=== PATIENT | male | born 1960 | race Caucasian/White ===

== ENCOUNTER 2022-12-20 19:19 | Emergency (ER) | payer BC, SELFPAY ==
--- OUTSIDE RECORDS SUMMARY | 2022-12-20 20:17 | XMS REPORT | Continuity of Care Document ---
:1960 Author Organization [facility] t Address [address] [place] [address] Care Team Providers Name Role Phone Deyanira Quiroz Primary Care Physician MARVIN ANGELES Attending Clinician Unavailable MARVIN ANGELES Attending Clinician Unavailable FAHAD CHAN Attending Clinician Unavailable FERNANDA MC Attending Clinician Unavailable ANDREI HALL Attending Clinician Unavailable VIJAYA ROMERO Attending Clinician Unavailable YAHAIRA WILSON Attending Clinician Unavailable AMANDA PEREZ Attending Clinician Unavailable KIRK ESPITIA Attending Clinician Unavailable Kirk Espitia MD Attending Clinician SERA NAVARRETE Attending Clinician Unavailable Sera Navarrete MD Attending Clinician ANNA, ANUPAMA S Attending Clinician Unavailable Anna PAC, Anupama S Attending Clinician Katie FRIAS, Yahaira Evans Attending Clinician Arie FRIAS, [facility] Attending Clinician Shefali Westfall MD Attending Clinician SHEFALI WESTFALL Attending Clinician Unavailable Pob, Adc Lab Main Attending Clinician Unavailable Doctor Unassigned, [place] Attending Clinician Unavailable PK OLEA Attending Clinician Unavailable PK LOEA Attending Clinician Unavailable Sarah Mcdermott Attending Clinician SARAH CRAWFORD Attending Clinician Unavailable Deyanira Quiroz Attending Clinician Terry BRIONES, Marj Jade Attending Clinician Unavailable JO ANN SOTO Attending Clinician Unavailable JO ANN SOTO Attending Clinician Unavailable GEOVANI BERRIOS Attending Clinician Unavailable Nurse, [facility] Attending Clinician Unavailable Unknown, Attending Attending Clinician Unavailable Lab, Ang - Db Attending Clinician Unavailable Veronica Herndon MD Attending Clinician SHAD العلي Attending Clinician Unavailable Desiree FRIAS, Jean Ann Attending Clinician Shad العلي MD Attending Clinician Testing, [facility] Pulmonary Function Attending Clinician Unavaila Pk Johnson DO Attending Clinician 2, Adc Lab Attending Clinician Unavailable Leonardo Potts MD Attending Clinician DEYANIRA GARCIA Attending Clinician Unavailable KAE ARTEAGA Attending Clinician Unavailable Kaylee Duffy MD Attending Clinician KAYLEE DUFFY Attending Clinician Unavailable SOPHIE BURTON Attending Clinician Unavailable Sophie Burton DO Attending Clinician Jaycee Nobles LVN Attending Clinician Unavailable DANIEL SCHOFIELD Attending Clinician Unavailable Daniel Schofield MD Attending Clinician DENVER ZHANG Attending Clinician Unavailable Omaghomi MANAGER BUSINESS INFORMATION, Omayemi Attending Clinician Only, Adc Test Attending Clinician Unavailable Adria FRIAS, Godl Attending Clinician Andrew FRIAS, Sahil Attending Clinician Jaimie FRIAS, Fatmata Attending Clinician Ebrahim MANAGER BUSINESS INFORMATION, Rania Attending Clinician Jacqui BRIONES, Val Johnson Attending Clinician Unavailable Rashad FRIAS, Jim Romero Attending Clinician RIANA DIMAS Attending Clinician Unavailable DOREEN HENDRICKSON Attending Clinician Unavailable Son CLAROS, Tessa Attending Clinician TESSA CLINE Attending Clinician Unavailable Shena FRIAS, Jenny Attending Clinician MOI MEIER Attending Clinician Unavailable Provider, [facility] Attending Clinician Unavailable Ashly Lantigua Attending Clinician ASHLY FIGUEROA Attending Clinician Unavailable LAKEISHA NELSON Attending Clinician Unavailable Lakeisha Nelson MD Attending Clinician Pradeep Montanez MD Attending Clinician Mey BRIONES, Amelia Schaefer Attending Clinician JOSELUIS OLIVEROS Attending Clinician Unavailable Domo FRIAS, Joseluis Attending Clinician Donita Mendez RN Attending Clinician Unavailable Only, Ang Db Test Attending Clinician Unavailable IBAUDIE LING Attending Clinician Unavailable Ibikunle MANAGER BUSINESS INFORMATION, Folusho F Attending Clinician Kaveh BRIONES, Melania T Attending Clinician Unavailable AneWarner Boudreaux Attending Clinician WARNER CASTELAN Attending Clinician Unavailable BRYON METCALF Attending Clinician Unavailable Bryon Metcalf DO Attending Clinician SRIDHAR RAYO Attending Clinician Unavailable Caterina Kelsey Attending Clinician Sridhar Rayo MD Attending Clinician CATERINA COHEN Attending Clinician Unavailable ROHAN JACOB Attending Clinician Unavailable Christina HOGAN, Janina Fan Attending Clinician Paul Leigh DO Attending Clinician Alta FRIAS, Santino Attending Clinician Nidia FRIAS, Rohan Attending Clinician Donato FRIAS, Rayo White Attending Clinician Dustin FRIAS, Fahad Thorne Attending Clinician Mohini Galindo Attending Clinician RAAD SIEGEL Attending Clinician Unavailable Robbin FRAIS, Raad Attending Clinician ANDREW HERRERA Attending Clinician Unavailable Lakeisha Nelson Attending Clinician Unavailable Sharon FRIAS, Andrew Attending Clinician Jessica Roach PA-C Attending Clinician JESSICA ROACH Attending Clinician Unavailable Howie HENDRICKS MD, John G Attending Clinician RASHAD ACUNA III Attending Clinician Unavailable Brent Meier DO Attending Clinician Dorota FRIAS, Rosalba Attending Clinician David Naik Attending Clinician DAVID LEMON Attending Clinician Unavailable Josue Shaikh MD Attending Clinician Marisel Welch DO Attending Clinician MARISEL WELCH Attending Clinician Unavailable LEONARDO POTTS Attending Clinician Unavailable Lab, Adc Fam Pob I Attending Clinician Unavailable Yousuf Valencia RN Attending Clinician Unavailable ABE MARTIN Attending Clinician Unavailable Judith Hernandez RN Attending Clinician Unavailable Lennie Oliver Attending Clinician SCOOTER MCDONALD Attending Clinician Unavailable Scooter Mcdonald MD Attending Clinician Dennis Medina RN Attending Clinician Unavailable RAGHAVENDRA URBINA Attending Clinician Unavailable PRADEEP MONTANEZ Attending Clinician Unavailable Provider, [facility] Attending Clinician Unavailable Jason CLAROS, Anni Yang Attending Clinician RASHAD TINEO Attending Clinician Unavailable Yves East CRNA Attending Clinician Almaz Mclain MD, Leonard Attending Clinician Doreen Hendrickson MD Attending Clinician Mk Qureshi MD Attending Clinician Naresh FRIAS, Nakul Attending Clinician [phone] NATANAEL TOLENTINO Attending Clinician Unavailable Natanael Tolentino MD Attending Clinician Nurse, Chinedu Pritchett Immunization Attending Clinician Unavailable Alexandro FRIAS, Fernanda Reza Attending Clinician Ward FRIAS, Ihsan Henderson Attending Clinician [phone] Diane Lepe RN Attending Clinician Unavailable GODWIN CANALES Attending Clinician Unavailable Godwin Canales DO Attending Clinician Radiology Attending Clinician Unavailable RADIOLOGY Attending Clinician Unavailable Quinten Clements Attending Clinician FATMATA ADAMS Attending Clinician Unavailable Shari Wiggins MD Attending Clinician [phone] Yeny Jacobs Attending Clinician Norm Blood MD Attending Clinician Outpt-Luana, Pacemaker/Icd Attending Clinician Unavailable Luis Fernando Muro MD Attending Clinician Renetta Maradiaga LVN Attending Clinician Unavailable Jesusita Mcleod MD Attending Clinician [phone] Luana, Remote Device Check At Home - Attending Clinician Unalacie COOKP, Dodie Rasheed Attending Clinician Nurse, [facility] Attending Clinician Unavailable QUINTEN AKERS Attending Clinician Unavailable Karen Dorman RN Attending Clinician Unavailable BRENNAN GAINES Attending Clinician Unavailable [facility] Attending Clinician Unavailable Fellow, Pulmonary Attending Clinician Unavailable Genesis Rose RN Attending Clinician Unavailable Bibiana Gregory MD Attending Clinician Raghavendra Urbina MD Attending Clinician BIBIANA GREGORY Attending Clinician Unavailable BIBIANA GREGORY Attending Clinician Unavailable Moi Meier MD Attending Clinician [phone] Carrie Gibbs RN Attending Clinician Unavailable Andrei Hall MD Attending Clinician Nurse, [facility] General Surgery Attending Clinician Unavailable UNKNOWN, ATTENDING Attending Clinician Unavailable Outpatient, Pm/Icd Check Attending Clinician Unavailable Po, Acute Care Clinic Attending Clinician Unavailable CHIDI ESTRADA Attending Clinician Unavailable Dat Tarango RN Attending Clinician Unavailable Julio Swanson MD Attending Clinician , [facility] Lab Attending Clinician Unavailable Shefali Garcia MD Attending Clinician [place] Attending Clinician Emilie Cee Attending Clinician ARIE [facility] Admitting Clinician Unavailable FAHAD CHAN Admitting Clinician Unavailable FERNANDA MC Admitting Clinician Unavailable ANDREI HALL Admitting Clinician Unavailable SERA NAVARRETE Admitting Clinician Unavailable ANUPAMA ANNA Admitting Clinician Unavailable SHEFALI WESTFALL Admitting Clinician Unavailable JO ANN SOTO Admitting Clinician Unavailable SHAD العلي Admitting Clinician Unavailable Shad العلي MD Admitting Clinician SOPHIE BURTON Admitting Clinician Unavailable Arie FRIAS [facility] Admitting Clinician KAYLEE DUFFY Admitting Clinician Unavailable LAKEISHA NELSON Admitting Clinician Unavailable JOSELUIS OLIVEROS Admitting Clinician Unavailable Joseluis Oliveros MD Admitting Clinician AUDIE MARTE Admitting Clinician Unavailable SRIDHAR RAYO Admitting Clinician Unavailable Sridhar Rayo MD Admitting Clinician NELY COHENE Admitting Clinician Unavailable ROHAN JACOB Admitting Clinician Unavailable Nidia FRIAS, Rohan Admitting Clinician RAAD SIEGEL Admitting Clinician Unavailable DEYANIRA GARCIA Admitting Clinician Unavailable Dorota FRIAS, Rosalba Admitting Clinician Dustin FRIAS, Fahad Thorne Admitting Clinician Titus FRIAS, Mk Admitting Clinician Alexandro FRIAS, Fernanda Reza Admitting Clinician Isabel FRIAS, Andrei Paiz Admitting Clinician Kiki FRIAS, Julio Admitting Clinician Radha FRIAS, Shefali Tobias Admitting Clinician Payers Payer Name Policy Type Policy Number Effective Date Expiration Date S [employer] MEDICAID SSI PENDING 2022 PENDING 00:00:00 BCBS [facility] [id number] 2020 OF [facility] 00:00:00 [facility] [id number] 2018 PPO 00:00:00 Problems Condition Condition Condition Status Onset Resolution Last Treating Co mments Source Name Details Category Date Date Treatment Clinician Date Status Status Disease Active Univers post post 1-25 [place]y of [place] Medical implantabl implantabl Br anch e loop e loop recorder recorder Presence Presence Disease Active Unive rs of of 1-25 ity of Watchman Watchman 00:00: [place] left left 00 Medical atrial atrial Branch appendage appendage closure closure device device Left Left Disease Active 2021-11 Univers facial facial 1-16 ity of numbness numbness 00:00: [place] 00 Medical Branch Numbness Numbness Disease Active 2021-11 Unive rs 1-16 ity of 00:00: [place] 00 Medical Branch Hyperglyce Hyperglyce Disease Active 2021-11 U nivers bentley bentley 0-31 ity of 00:00: [place] 00 Medical Branch Chest pain Chest pain Disease Active U nivers at rest at rest 9-22 ity of 00:00: Medical Branch Paroxysmal Paroxysmal Disease Active U nivers atrial atrial 8-15 ity of fibrillati fibrillati [place] Hypoglycem Hypoglycem Disease Active U nivers ia ia 6-23 ity of 00:00: [place] [facility] Cerebrovas Cerebrovas Disease Recurre Univers cular cular nce 6-21 ity of accident accident 00:00: [place] (CVA) (CVA) 00 Medical determined determined Br anch by by clinical clinical assessment assessment Cellulitis Cellulitis Disease Active U nivers of right of right 4-03 ity of foot foot 00:00: Medical Branch Coronary Coronary Disease Active Unive rs artery artery 3-27 ity of disease disease 00:00: [place] involving involving 00 Medi [facility] Branch coronary coronary artery of artery of council council heart with heart with angina angina pectoris pectoris Chest Chest Disease Active Univers pain, rule pain, rule 3-26 it y of out acute out acute 00:[place] myocardial myocardial 00 Me dical infarction infarction Br anch Leukocytos Leukocytos Disease Active 2020-11 U nivers is is 1-19 ity of 00:00: Medical Branch 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 Added automatic ally from request for surgery [id number] Neck mass Neck mass Disease Active Uni vers 1-25 ity of 00:00: [place] [facility] Epilepsy Epilepsy Disease Active Unive rs 5-04 ity of 00:00: [place] [facility] Chronic Chronic Disease Active Univers heart heart 3-16 ity of failure failure 00:00: [place] with with 00 Medical preserved preserved Bran ch ejection ejection fraction fraction Left-sided Left-sided Disease Active U nivers weakness weakness 2-02 ity of 00:00: [place] [facility] Atrial Atrial Disease Active Univers fibrillati fibrillati 1-14 it y of on, on, 00:00: [place] unspecifie unspecifie 00 Me dical d type d type Branch Left hand Left hand Disease Active Uni vers weakness weakness 4-13 ity of 00:00: [place] [facility] Other Other Disease Active Univers hyperlipid hyperlipid 2-05 it y of emia emia 00:00: Medical Branch Chest pain Chest pain Disease Active U nivers 2-04 ity of 00:00: [place] [facility] Stroke Stroke Disease Active Univers 1-11 ity of 00:00: [place] 00 Medical Branch Obesity Obesity Disease Active Univers (BMI (BMI 1-09 ity of 30-39.9) 30-39.9) 00:00: [place] [facility] CVA CVA Disease Active Univers (cerebral (cerebral 1-09 ity of vascular vascular 00:00: [place] accident) accident) 00 [facility] johnathon Branch TIA TIA Disease Active Univers (transient (transient 1-07 it y of ischemic ischemic 00:00: [place] attack) attack) 00 Medical Branch Screening Screening Disease Active Overview: Univers for for 8-13 Formattin ity of colorectal colorectal 00:00: g of this [place] cancer cancer 00 note Medical might be Branch different from the original. 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 [facility] LEG PAIN LEG PAIN Diagnosis Active 2015-10-01 Memoria Active 05-21 08:57:00 l 05/21/2015 00:00: Audi fong [address] Hypertensi Hypertens Problem Active 2015-08-24 Memoria ve sanchez 04-11 11:46:58 l disorder, disorder, 00:00: Herm james systemic systemic 00 arterial arterial (disorder) (disorder) Active 04/11/2015 Problem 08/24/2015 Data migrated from [employer] on 05/30/15.
Data migrated from [employer] on 05/30/15.
Data migrated from [employer] on 04/24/15. [facility] Hypothyroi Hypothyro Problem Active 2015-08-24 Memoria dism idism 04-11 11:46:58 l (disorder) (disorder) 00:00: He rmann Active 00 04/11/2015 Problem 08/24/2015 Data migrated from [employer] on 05/30/15.
Data migrated from [employer] on 05/30/15.
Data migrated from [employer] on 04/24/15. [facility] Final: Final: Problem 2015-08-24 Luis stewart Chronic Chronic 11:46:58 l Airway Airway Ceiba Obstructio Obstructio n, Not n, Not Elsewhere Elsewhere Classified Classified 5 [facility] Decreased Decreased Problem Resolve 2015-08-24 Memoria testostero testostero d 11:46:58 l ne level ne level Audi fong (finding) (finding) Resolved Problem 08/24/2015 [facility] [id number] Diagnosis Active 2015-08-21 Mem oria Active 13:25:00 l [facility] [place]iba Pacemaker Pacemaker Disease Resolve 2021-02-12 2021-02-12 Univers d 00:00:00 14:40:32 ity of [place] [facility] Chest pain Chest Problem Resolve 2015-08-24 2015-08-24 Memoria (finding) pain d 05-23 11:46:58 11:46:58 l (finding) 00:00: [place] Resolved 00 05/23/2015 Problem 08/24/2015 Data migrated from [employer] on 05/30/15. [facility] Standard Standard Problem Resolve 2015-08-24 2015-08-24 Memoria chest chest d 05-23 11:46:58 11:46:58 l X-ray X-ray 00:00: [place] abnormal abnormal 00 (finding) (finding) Resolved 05/23/2015 Problem 08/24/2015 Data migrated from [employer] on 05/30/15. [facility] History of Past Illness Condition Condition Condition Status Onset Resolution Last Treating Co mments Source Name Details Category Date Date Treatment Clinician Date Discharge Discharge Problem 2015-05-24 2015-05-24 Memoria Diagnosis: Diagnosis: 05-21 03:24:43 03:24:43 l Leg pain Leg pain 05:00: Audi n 05/21/2015 00 05/24/2015 [facility] Discharge Discharge Problem 2015-05-24 2015-05-24 Memoria Diagnosis: Diagnosis: 05-21 03:24:43 03:24:43 l Chest pain Chest pain 05:00: He ernesto 05/21/2015 00 05/24/2015 [facility] Allergies, Adverse Reactions, Alerts Allergy Allergy Status Severity Reaction(s) Onset Inactive Treating Comm ents Source Name Type Date Date Clinician morphine DA Active U UNKNOWN 2020-11 [facility] 12-21 Clear 00:00: Light 00 [facility] MORPHINE DRUG Active SOB Univers INGREDI 6-13 ity of 00:00: [place] 00 Medical Branch Morphine Propensi Active Shortness of Given Univers ty to Breath 6-13 epi/benad ity of adverse 00:00: ryl in ER [place] reaction 00 after Medical s receiving Branch IV morphine April 2021. Social History Social Habit Start Date Stop Date Quantity Comments Source History of tobacco Passive smoker Un iversity of use [place] [facility] History SDOH University o f Alcohol Frequency [place] M edical Branch History SDNH University o f Alcohol Std Drinks [place] [facility] History SDNH University o f Alcohol Binge [place] [facility] Exposure to 2022-12-07 2022-12-17 Not sure University of SARS-CoV-2 (event) 00:00:00 06:48:00 [facility] Alcohol intake 2022-12-17 2022-12-17 Current University of 00:00:00 00:00:00 non-drinker of [facility] [place] alcohol Branch (finding) History SDOH 2022-10-08 2022-10-08 4 University o f Financial 00:00:00 00:00:00 [place] [facility] History SDOH Food 2022-10-08 2022-10-08 1 Univers ity of Worry 00:00:00 00:00:00 [place] [facility] History SDOH Food 2022-10-08 2022-10-08 1 Univers ity of Scarcity 00:00:00 00:00:00 [place] [facility] History SDOH 2022-10-08 2022-10-08 2 University o f Transport Med 00:00:00 00:00:00 [place] [facility] History SDOH 2022-10-08 2022-10-08 2 University o f Transport Non-Med 00:00:00 00:00:00 [facility] Branch Cigarettes smoked 2022-10-08 2022-10-08 Univers ity of current (pack per 00:00:00 00:00:00 [facility] ) - Reported Branch Cigarette 2022-10-08 2022-10-08 University of pack-years 00:00:00 00:00:00 [facility] Tobacco use and 2022-10-08 2022-10-08 Smokeless Universit y of exposure 00:00:00 00:00:00 tobacco non-user [facility] dical Branch Tobacco Comment 2022-06-12 2022-06-12 Quit 2015 Universit y of 00:00:00 00:00:00 /smoked for [facility] about 18 yrs Branch Alcohol Comment 2021-08-19 2021-08-19 quit 30 yearsa Unive rsity of 00:00:00 00:00:00 ago [facility] Branch Education 2021-05-05 2021-05-05 11 University of 00:00:00 00:00:00 [facility] Sex [birth year] At [birth year] Universit y of 00:00:00 00:00:00 [facility] Smoking Status Start Date Stop Date Source Ex-smoker 2022-10-08 00:00:00 2022-10-08 00:00:00 [facility] Social History [facility] Medications Ordered Filled Start Stop Current Ordering Indication Dosage Frequency Signature Comments Components Source Medication Medication Date Date Medication? Clinician (SIG) Name Name cetirizine Yes [id number] 10mg Take 1 U nivers (ALLERGY 1-26 tablet by ity of RELIEF, 00:00: mouth in [place] CETIRIZINE, the [facility] ) 10 mg morning. Branch tablet KCL 20 mEq Yes [id number] 20meq Take 1 Univers tablet 1-26 tablet by ity of 00:00: mouth in [place] the Medical morning. Branch levothyroxi Yes [id number] 150ug Take 1 Univers ne 150 mcg 1-26 tablet by ity of tablet 00:00: mouth [place] every Medical morning. Branch furosemide Yes [id number] 40mg Take 2 Univers 20 mg 1-26 tablets by ity of tablet 00:00: mouth in [place] the Medical morning. Branch metoprolol Yes [id number] 25mg Take 0.5 Univers succinate 1-26 tablets by ity of XL 50 mg 24 00:00: [place] tablet 00 the Medical morning. Branch cetirizine Yes [id number] 10mg Take 1 U nivers (ALLERGY 1-26 tablet by ity of RELIEF, 00:00: mouth in [place] CETIRIZINE, the [facility] ) 10 mg morning. Branch tablet KCL 20 mEq Yes [id number] 20meq Take 1 Univers tablet 1-26 tablet by ity of 00:00: mouth in [place] the Medical morning. Branch levothyroxi Yes [id number] 150ug Take 1 Univers ne 150 mcg 1-26 tablet by ity of tablet 00:00: mouth [place] every Medical morning. Branch furosemide 0 Yes [id number] 40mg Take 2 Univers 20 mg 1-26 tablets by ity of tablet 00:00: mouth in [place] the Medical morning. Branch metoprolol Yes [id number] 25mg Take 0.5 Univers succinate 1-26 tablets by ity of XL 50 mg 24 00:[place] 00 the Medical morning. Branch cetirizine 2022-0 Yes [id number] 10mg Take 1 U nivers (ALLERGY 1-26 tablet by ity of RELIEF, 00:00: mouth in [place] CETIRIZINE, the [facility] ) 10 mg morning. Branch tablet KCL 20 mEq 2022-0 Yes [id number] 20meq Take 1 Univers tablet 1-26 tablet by ity of 00:00: mouth in [place] 00 the Medical morning. Branch levothyroxi 2022-0 Yes [id number] 150ug Take 1 Univers ne 150 mcg 1-26 tablet by ity of tablet 00:00: mouth [place] every Medical morning. Branch furosemide 2022-0 Yes [id number] 40mg Take 2 Univers 20 mg 1-26 tablets by ity of tablet 00:00: mouth in [place] the Medical morning. Branch metoprolol 2022-0 Yes [id number] 25mg Take 0.5 Univers succinate 1-26 tablets by ity of XL 50 mg 24 00:[place] 00 the Medical morning. Branch cetirizine 2022-0 Yes [id number] 10mg Take 1 U nivers (ALLERGY 1-26 tablet by ity of RELIEF, 00:00: mouth in [place] CETIRIZITN, the [facility] ) 10 mg morning. Branch tablet KCL 20 mEq 2022-0 Yes [id number] 20meq Take 1 Univers tablet 1-26 tablet by ity of 00:00: mouth in [place] the Medical morning. Branch levothyroxi 2022-0 Yes [id number] 150ug Take 1 Univers ne 150 mcg 1-26 tablet by ity of tablet 00:00: mouth [place] 00 every Medical morning. Branch furosemide 2022-0 Yes [id number] 40mg Take 2 Univers 20 mg 1-26 tablets by ity of tablet 00:00: mouth in [place] 00 the Medical morning. Branch metoprolol 2022-0 Yes [id number] 25mg Take 0.5 Univers succinate 1-26 tablets by ity of XL 50 mg 24 00:[place]: [place] 00 the Medical morning. Branch cetirizine 2022-0 Yes [id number] 10mg Take 1 U nivers (ALLERGY 1-26 tablet by ity of RELIEF, 00:00: mouth in [place] CETIRIZINE, the [facility] ) 10 mg morning. Branch tablet KCL 20 mEq 0 Yes [id number] 20meq Take 1 [facility] tablet 1-26 tablet by ity of 00:00: mouth in [place] 00 the Medical morning. Branch levothyroxi 0 Yes [id number] 150ug Take 1 [facility] ne 150 mcg 1-26 tablet by ity of tablet 00:00: mouth [place] 00 every Medical morning. Branch furosemide 0 Yes [id number] 40mg Take 2 [facility] 20 mg 1-26 tablets by ity of tablet 00:00: mouth in [place] 00 the Medical morning. Branch metoprolol 0 Yes [id number] 25mg Take 0.5 [facility] succinate 1-26 tablets by ity of XL 50 mg 24 00:00: mouth in [place] hr tablet 00 the Medical morning. Branch cetirizine Yes [id number] 10mg Take 1 U nivers (ALLERGY 1-26 tablet by ity of RELIEF, 00:00: mouth in [place] CETIRIZINE, the [facility] ) 10 mg morning. Branch tablet KCL 20 mEq Yes [id number] 20meq Take 1 [facility] tablet 1-26 tablet by ity of 00:00: mouth in [place] the Medical morning. Branch levothyroxi 0 Yes [id number] 150ug Take 1 [facility] ne 150 mcg 1-26 tablet by ity of tablet 00:00: mouth [place] 00 every Medical morning. Branch furosemide 0 Yes [id number] 40mg Take 2 [facility] 20 mg 1-26 tablets by ity of tablet 00:00: mouth in [place] the Medical morning. Branch metoprolol 0 Yes [id number] 25mg Take 0.5 [facility] succinate 1-26 tablets by ity of XL 50 mg 24 00:00: mouth in [place] hr tablet 00 the Medical morning. Branch traMADoL 2022-0 2022- No 50mg 50 mg, Univer s (ULTRAM) -12-16 Oral, ity of tablet 50 04:30: 04:10 ONCE, 1 [place] mg 00 :00 dose, On Medical Mon Branch 12/15/22 at 2230, Routine traMADoL 2022-0 Yes [id number] 50mg Take 1 [facility] (ULTRAM) 50 1-23 tablet by ity of mg tablet 00:00: mouth [place] 00 every 6 Medical (six) Branch hours as needed for Pain (scale 7-10). Indication s: acute pain traMADoL 2022-0 Yes [id number] 50mg Take 1 [facility] (ULTRAM) 50 1-23 tablet by ity of mg tablet 00:00: mouth [place] 00 every 6 Medical (six) Branch hours as needed for Pain (scale 7-10). Indication s: acute pain traMADoL 2022-0 Yes [id number] 50mg Take 1 [facility] (ULTRAM) 50 1-23 tablet by ity of mg tablet 00:00: mouth [place] 00 every 6 Medical (six) Branch hours as needed for Pain (scale 7-10). Indication s: acute pain methylpredn 2022-0 2022- No 50mg 50 mg, Uni vers isolone sod 12-04 Intravenou i ty of succ 04:45: 04:54 s, ONCE, 1 [place] (SOLU-MEDRO 00 :00 dose, On Medi johnathon L) Thu [place] injection 12/03/22 at 50 mg 2245, DELFIN iopamidol 0 2022- No [id number] 100mL 100 mL, Univers (ISOVUE 12-04 Intravenou ity o f 370-500 mL) 04:15: 04:15 s, ONCE, 1 [place] injection 00 :00 dose, On Medica l 100 mL [facility] Branch 12/03/22 at 2215, Routine predniSONE 2022-0 Yes [id number] 50mg Take 1 [facility] 50 mg 1-11 tablet by ity of tablet 00:00: mouth in [place] 00 the Medical morning. Branch predniSONE 2022-0 Yes [id number] 50mg Take 1 [facility] 50 mg 1-11 tablet by ity of tablet 00:00: mouth in [place] 00 the Medical morning. Branch predniSONE 2022-0 Yes [id number] 50mg Take 1 [facility] 50 mg 1-11 tablet by ity of tablet 00:00: mouth in [place] 00 the Medical morning. Branch predniSONE 2022-0 Yes [id number] 50mg Take 1 [facility] 50 mg 1-11 tablet by ity of tablet 00:00: mouth in [place] 00 the Medical morning. Branch predniSONE 2022-0 Yes [id number] 50mg Take 1 [facility] 50 mg 1-11 tablet by ity of tablet 00:00: mouth in [place] 00 the Medical morning. Branch predniSONE 0 Yes [id number] 50mg Take 1 [facility] 50 mg 1-11 tablet by ity of tablet 00:00: mouth in [place] 00 the Medical morning. Branch predniSONE 0 Yes [id number] 50mg Take 1 [facility] 50 mg 1-11 tablet by ity of tablet 00:00: mouth in [place] 00 the Medical morning. Branch predniSONE 2022-2022- No 40mg 40 mg, [facility] ers (DELTASONE) 11-27 Oral, ity of tablet 40 03:45: 03:04 ONCE, [place] mg 00 :[place] dose, On Medical 11/26/22 Branch at 2145, DELFIN ipratropium 2022- No 3mL 3 mL, [facility] ers -albuteroL 11-27 Inhalation it y of (DUONEB) 01:00: 00:08 , ONCE, 1 [place] 0.5 mg-3 00 :00 dose, On Medical mg(2.5 mg Thu11/26/22 Bran ch base)/3 mL at 1900, nebulizer Routine solution 3 mL methylpredn 2022- No 125mg 125 mg, U nivers isolone sod 11-27 Intravenou i ty of succ 00:00: 00:07 s, ONCE, 1 [place] (SOLU-MEDRO 00 :00 dose, On Medi johnathon L) Thu11/26/22 Branch injection at 1800, 125 mg DELFIN predniSONE 2022- Yes [id number] 40mg Take 2 [facility] 20 mg 11-26- tablets by ity of tablet 00:00: 05:59 mouth [place] 00 :00 every Medical morning Branch for 4 days. predniSONE 2022-0 2022- Yes [id number] 40mg Take 2 [facility] 20 mg 11-26-09 tablets by ity of tablet 00:00: 05:59 mouth [place] 00 :00 every Medical morning Branch for 4 days. furosemide 2022-0 Yes [id number] 40mg Take 2 [facility] 20 mg 1-02 tablets by ity of tablet 00:00: mouth in [place] 00 the Medical morning. Branch furosemide 2022-0 Yes [id number] 40mg Take 2 [facility] 20 mg 1-02 tablets by ity of tablet 00:00: mouth in [place] 00 the Medical morning. Branch furosemide Yes [id number] 40mg Take 2 [facility] 20 mg 1-02 tablets by ity of tablet 00:00: mouth in [place] 00 the Medical morning. Branch furosemide Yes [id number] 40mg Take 2 [facility] 20 mg 1-02 tablets by ity of tablet 00:00: mouth in [place] 00 the Medical morning. Branch furosemide 0 2022- No [id number] 40mg Take 2 [facility] 20 mg -02 -12 tablets by ity of tablet 00:00: 00:00 mouth in [place] 00 :00 the Medical morning. Branch furosemide 2022- No [id number] 40mg Take 2 [facility] 20 mg -02 -12 tablets by ity of tablet 00:00: 00:00 mouth in [place] 00 :00 the Medical morning. Branch cetirizine 2021-11 Yes [id number] 10mg Take 1 U nivers (ALLERGY 2-29 tablet by ity of RELIEF, 00:00: mouth in [place] CETIRIZINE, the Medical ) 10 mg morning. Branch tablet albuterol 2021-11 Yes [id number] 2{puff} Inhale 2 [facility] 90 2-29 Puffs ity of mcg/actuati 00:00: every 6 [place] on inhaler 00 (six) Medical hours as Branch needed for Wheezing, Shortness of Breath, Bronchospa sm or Chest tightness. KCL 20 mEq 2021-11 Yes [id number] 20meq Take 1 [facility] tablet 2-29 tablet by ity of 00:00: mouth in [place] the Medical morning. Branch levothyroxi 2021-11 Yes [id number] 150ug Take 1 [facility] ne 150 mcg 2-29 tablet by ity of tablet 00:00: mouth [place] 00 every Medical morning. Branch metoprolol 2021-11 Yes [id number] 25mg Take 0.5 [facility] succinate 2-29 tablets by ity of XL 50 mg 24 00:00: mouth [place] hr tablet 00 the Medical morning. Branch cetirizine 2021-11 Yes [id number] 10mg Take 1 U nivers (ALLERGY 2-29 tablet by ity of RELIEF, 00:00: mouth in [place] CETIRIZINE, the Medical ) 10 mg morning. Branch tablet albuterol 2021-11 Yes [id number] 2{puff} Inhale 2 [facility] 90 2-29 Puffs ity of mcg/actuati 00:00: every 6 [place] on inhaler 00 (six) Medical hours as Branch needed for Wheezing, Shortness of Breath, Bronchospa sm or Chest tightness. KCL 20 mEq 2021-11 Yes [id number] 20meq Take 1 [facility] tablet 2-29 tablet by ity of 00:00: mouth in [place] 00 the Medical morning. Branch levothyroxi 2021-11 Yes [id number] 150ug Take 1 [facility] ne 150 mcg 2-29 tablet by ity of tablet 00:00: mouth [place] 00 every Medical morning. Branch metoprolol 2021-11 Yes [id number] 25mg Take 0.5 [facility] succinate 2-29 tablets by ity of XL 50 mg 24 00:00: mouth in [place] hr tablet 00 the Medical morning. Branch cetirizine 2021-11 Yes [id number] 10mg Take 1 U nivers (ALLERGY 2-29 tablet by ity of RELIEF, 00:00: mouth in [place] CETIRIZINE, the Medical ) 10 mg morning. Branch tablet albuterol 2021-11 Yes [id number] 2{puff} Inhale 2 [facility] 90 2-29 Puffs ity of mcg/actuati 00:00: every 6 [place] on inhaler 00 (six) Medical hours as Branch needed for Wheezing, Shortness of Breath, Bronchospa sm or Chest tightness. KCL 20 mEq 2021-11 Yes [id number] 20meq Take 1 [facility] tablet 2-29 tablet by ity of 00:00: mouth in [place] 00 the Medical morning. Branch levothyroxi 2021-11 Yes [id number] 150ug Take 1 [facility] ne 150 mcg 2-29 tablet by ity of tablet 00:00: mouth [place] 00 every Medical morning. Branch metoprolol 2021-11 Yes [id number] 25mg Take 0.5 [facility] succinate 2-29 tablets by ity of XL 50 mg 24 00:00: mouth in [place] hr tablet 00 the Medical morning. Branch cetirizine 2021-11 Yes [id number] 10mg Take 1 U nivers (ALLERGY 2-29 tablet by ity of RELIEF, 00:00: mouth in [place] CETIRIZINE, 00 the Medical ) 10 mg morning. Branch tablet albuterol 2021-11 Yes [id number] 2{puff} Inhale 2 [facility] 90 2-29 Puffs ity of mcg/actuati 00:00: every 6 [place] on inhaler 00 (six) Medical hours as Branch needed for Wheezing, Shortness of Breath, Bronchospa sm or Chest tightness. KCL 20 mEq 2021-11 Yes [id number] 20meq Take 1 [facility] tablet 2-29 tablet by ity of 00:00: mouth in [place] 00 the Medical morning. Branch levothyroxi 2021-11 Yes [id number] 150ug Take 1 [facility] ne 150 mcg 2-29 tablet by ity of tablet 00:00: mouth [place] 00 every Medical morning. Branch metoprolol 2021-11 Yes [id number] 25mg Take 0.5 [facility] succinate 2-29 tablets by ity of XL 50 mg 24 00:00: mouth in [place] hr tablet 00 the Medical morning. Branch cetirizine 2021-11 Yes [id number] 10mg Take 1 U nivers (ALLERGY 2-29 tablet by ity of RELIEF, 00:00: mouth in [place] CETIRIZINE, 00 the Medical ) 10 mg morning. Branch tablet albuterol 2021-11 Yes [id number] 2{puff} Inhale 2 [facility] 90 2-29 Puffs ity of mcg/actuati 00:00: every 6 [place] on inhaler 00 (six) Medical hours as Branch needed for Wheezing, Shortness of Breath, Bronchospa sm or Chest tightness. KCL 20 mEq 2021-11 Yes [id number] 20meq Take 1 [facility] tablet 2-29 tablet by ity of 00:00: mouth in [place] 00 the Medical morning. Branch levothyroxi 2021-11 Yes [id number] 150ug Take 1 [facility] ne 150 mcg 2-29 tablet by ity of tablet 00:00: mouth [place] 00 every Medical morning. Branch metoprolol 2021-11 Yes [id number] 25mg Take 0.5 [facility] succinate 2-29 tablets by ity of XL 50 mg 24 00:00: mouth in [place] hr tablet 00 the Medical morning. Branch cetirizine 2021-11 Yes [id number] 10mg Take 1 U nivers (ALLERGY 2-29 tablet by ity of RELIEF, 00:00: mouth in [place] CETIRIZINE, 00 the Medical ) 10 mg morning. Branch tablet albuterol 2021-11 Yes [id number] 2{puff} Inhale 2 [facility] 90 2-29 Puffs ity of mcg/actuati 00:00: every 6 [place] on inhaler 00 (six) Medical hours as Branch needed for Wheezing, Shortness of Breath, Bronchospa sm or Chest tightness. KCL 20 mEq 2021-11 Yes [id number] 20meq Take 1 [facility] tablet 2-29 tablet by ity of 00:00: mouth in [place] 00 the Medical morning. Branch levothyroxi 2021-11 Yes [id number] 150ug Take 1 [facility] ne 150 mcg 2-29 tablet by ity of tablet 00:00: mouth [place] every Medical morning. Branch metoprolol 2021-11 Yes [id number] 25mg Take 0.5 [facility] succinate 2-29 tablets by ity of XL 50 mg 24 00:00: mouth in [place] hr tablet 00 the Medical morning. Branch cetirizine 2021-11 Yes [id number] 10mg Take 1 U nivers (ALLERGY 2-29 tablet by ity of RELIEF, 00:00: mouth in [place] CETIRIZINE, 00 the Medical ) 10 mg morning. Branch tablet albuterol 2021-11 Yes [id number] 2{puff} Inhale 2 [facility] 90 2-29 Puffs ity of mcg/actuati 00:00: every 6 [place] on inhaler 00 (six) Medical hours as Branch needed for Wheezing, Shortness of Breath, Bronchospa sm or Chest tightness. KCL 20 mEq 2021-11 Yes [id number] 20meq Take 1 [facility] tablet 2-29 tablet by ity of 00:00: mouth in [place] 00 the Medical morning. Branch levothyroxi 2021-11 Yes [id number] 150ug Take 1 [facility] ne 150 mcg 2-29 tablet by ity of tablet 00:00: mouth [place] 00 every Medical morning. Branch metoprolol 2021-11 Yes [id number] 25mg Take 0.5 [facility] succinate 2-29 tablets by ity of XL 50 mg 24 00:00: mouth in [place] hr tablet 00 the Medical morning. Branch albuterol 2021-11 Yes [id number] 2{puff} Inhale 2 [facility] 90 2-29 Puffs ity of mcg/actuati 00:00: every 6 [place] on inhaler 00 (six) Medical hours as Branch needed for Wheezing, Shortness of Breath, Bronchospa sm or Chest tightness. albuterol 2021-11 Yes [id number] 2{puff} Inhale 2 [facility] 90 2-29 Puffs ity of mcg/actuati 00:00: every 6 [place] on inhaler 00 (six) Medical hours as Branch needed for Wheezing, Shortness of Breath, Bronchospa sm or Chest tightness. albuterol 2021-11 Yes [id number] 2{puff} Inhale 2 [facility] 90 2-29 Puffs ity of mcg/actuati 00:00: every 6 [place] on inhaler 00 (six) Medical hours as Branch needed for Wheezing, Shortness of Breath, Bronchospa sm or Chest tightness. albuterol 2021-11 Yes [id number] 2{puff} Inhale 2 [facility] 90 2-29 Puffs ity of mcg/actuati 00:00: every 6 [place] on inhaler 00 (six) Medical hours as Branch needed for Wheezing, Shortness of Breath, Bronchospa sm or Chest tightness. albuterol 2021-11 Yes [id number] 2{puff} Inhale 2 [facility] 90 2-29 Puffs ity of mcg/actuati 00:00: every 6 [place] on inhaler 00 (six) Medical hours as Branch needed for Wheezing, Shortness of Breath, Bronchospa sm or Chest tightness. albuterol 2021-11 Yes [id number] 2{puff} Inhale 2 [facility] 90 2-29 Puffs ity of mcg/actuati 00:00: every 6 [place] on inhaler 00 (six) Medical hours as Branch needed for Wheezing, Shortness of Breath, Bronchospa sm or Chest tightness. cetirizine 2021-11- No [id number] 10mg Take 1 [facility] (ALLERGY 12-04 tablet by ity o f RELIEF, 00:00: 00:00 mouth in [place] CETIRIZINE, 00 :00 the Medical ) 10 mg morning. Branch tablet KCL 20 mEq 2021-11- No [id number] 20meq Take 1 [facility] tablet 12-04 tablet by ity of 00:00: 00:00 mouth in [place] 00 :00 the Medical morning. [place] levothyroxi 2021-11- No [id number] 150ug Take 1 [facility] ne 150 mcg 12-04 tablet by ity of tablet 00:00: 00:00 mouth [place] 00 :00 every Medical morning. Branch metoprolol 2021-11- No [id number] 25mg Take 0.5 [facility] succinate 12-04 tablets by ity of XL 50 mg 24 00:00: 00:00 mouth in [place] hr tablet 00 :00 the Medical morning. [place] cetirizine 2021-11- No [id number] 10mg Take 1 [facility] (ALLERGY 12-04 tablet by ity o f RELIEF, 00:00: 00:00 mouth in [place] CETIRIZINE, 00 :00 the Medical ) 10 mg morning. Branch tablet KCL 20 mEq 2021-11- No [id number] 20meq Take 1 [facility] tablet 12-04 tablet by ity of 00:00: 00:00 mouth in [place] 00 :00 the Medical morning. [place] levothyroxi 2021-11- No [id number] 150ug Take 1 [facility] ne 150 mcg 12-04 tablet by ity of tablet 00:00: 00:00 mouth [place] 00 :00 every Medical morning. Branch metoprolol 2021-11- No [id number] 25mg Take 0.5 [facility] succinate 12-04 tablets by ity of XL 50 mg 24 00:00: 00:00 mouth in [place] hr tablet 00 :00 the Medical morning. Branch semaglutide 2021-11 Yes [id number] .5mg inject 0.5 [facility] (OZEMPIC) 2-23 mg under ity of 0.25 mg or 00:00: the skin [place] 0.5 mg(2 00 weekly. Medical mg/1.5 mL) Branch PnIj empaglifloz 2021-11 Yes [id number] 10mg Take 1 [facility] in 2-23 tablet by ity of (JARDIANCE) 00:00: mouth [place] 10 mg 00 every Medical morning. Branch semaglutide 2021-11 Yes [id number] .5mg inject 0.5 [facility] (OZEMPIC) 2-23 mg under ity of 0.25 mg or 00:00: the skin [place] 0.5 mg(2 00 weekly. Medical mg/1.5 mL) Branch PnIj empaglifloz 2021-11 Yes [id number] 10mg Take 1 [facility] in 2-23 tablet by ity of (JARDIANCE) 00:00: mouth [place] 10 mg 00 every Medical morning. Branch semaglutide 2021-11 Yes [id number] .5mg inject 0.5 [facility] (OZEMPIC) 2-23 mg under ity of 0.25 mg or 00:00: the skin [place] 0.5 mg(2 00 weekly. Medical mg/1.5 mL) Branch PnIj empaglifloz 2021-11 Yes [id number] 10mg Take 1 [facility] in 2-23 tablet by ity of (JARDIANCE) 00:00: mouth [place] 10 mg 00 every Medical morning. Branch semaglutide 2021-11 Yes [id number] .5mg inject 0.5 [facility] (OZEMPIC) 2-23 mg under ity of 0.25 mg or 00:00: the skin [place] 0.5 mg(2 00 weekly. Medical mg/1.5 mL) Branch PnIj empaglifloz 2021-11 Yes [id number] 10mg Take 1 [facility] in 2-23 tablet by ity of (JARDIANCE) 00:00: mouth [place] 10 mg 00 every Medical morning. Branch semaglutide 2021-11 Yes [id number] .5mg inject 0.5 [facility] (OZEMPIC) 2-23 mg under ity of 0.25 mg or 00:00: the skin [place] 0.5 mg(2 00 weekly. Medical mg/1.5 mL) Branch PnIj empaglifloz 2021-11 Yes [id number] 10mg Take 1 [facility] in 2-23 tablet by ity of (JARDIANCE) 00:00: mouth [place] 10 mg 00 every Medical morning. Branch semaglutide 2021- Yes [id number] .5mg inject 0.5 [facility] (OZEMPIC) 2-23 mg under ity of 0.25 mg or 00:00: the skin [place] 0.5 mg(2 00 weekly. Medical mg/1.5 mL) Branch PnIj empaglifloz 2021- Yes [id number] 10mg Take 1 [facility] in 2-23 tablet by ity of (JARDIANCE) 00:00: mouth [place] 10 mg 00 every Medical morning. Branch semaglutide 2021-11 Yes [id number] .5mg inject 0.5 [facility] (OZEMPIC) 2-23 mg under ity of 0.25 mg or 00:00: the [place] 0.5 mg(2 00 weekly. Medical mg/1.5 mL) Branch PnIj empaglifloz 2021-11 Yes [id number] 10mg Take 1 [facility] in 2-23 tablet by ity of (JARDIANCE) 00:00: mouth [place] 10 mg 00 every Medical morning. Branch semaglutide 2021-11 Yes [id number] .5mg inject 0.5 [facility] (OZEMPIC) 2-23 mg under ity of 0.25 mg or 00:00: the skin [place] 0.5 mg(2 00 weekly. Medical mg/1.5 mL) Branch PnIj empaglifloz 2021-11 Yes [id number] 10mg Take 1 [facility] in 2-23 tablet by ity of (JARDIANCE) 00:00: mouth [place] 10 mg 00 every Medical morning. Branch semaglutide 2021-11 Yes [id number] .5mg inject 0.5 [facility] (OZEMPIC) 2-23 mg under ity of 0.25 mg or 00:00: the skin [place] 0.5 mg(2 00 weekly. Medical mg/1.5 mL) Branch PnIj empaglifloz 2021-11 Yes [id number] 10mg Take 1 [facility] in 2-23 tablet by ity of (JARDIANCE) 00:00: mouth [place] 10 mg 00 every Medical morning. Branch semaglutide 2021-11 Yes [id number] .5mg inject 0.5 [facility] (OZEMPIC) 2-23 mg under ity of 0.25 mg or 00:00: the skin [place] 0.5 mg(2 00 weekly. Medical mg/1.5 mL) Branch PnIj empaglifloz 2021-11 Yes [id number] 10mg Take 1 [facility] in 2-23 tablet by ity of (JARDIANCE) 00:00: mouth [place] 10 mg 00 every Medical morning. Branch semaglutide 2021-11 Yes [id number] .5mg inject 0.5 [facility] (OZEMPIC) 2-23 mg under ity of 0.25 mg or 00:00: the skin [place] 0.5 mg(2 00 weekly. Medical mg/1.5 mL) Branch PnIj empaglifloz 2021-11 Yes [id number] 10mg Take 1 [facility] in 2-23 tablet by ity of (JARDIANCE) 00:00: mouth [place] 10 mg 00 every Medical morning. Branch semaglutide 2021-11 Yes [id number] .5mg inject 0.5 [facility] (OZEMPIC) 2-23 mg under ity of 0.25 mg or 00:00: the skin [place] 0.5 mg(2 00 weekly. Medical mg/1.5 mL) Branch PnIj empaglifloz 2021-11 Yes [id number] 10mg Take 1 [facility] in 2-23 tablet by ity of (JARDIANCE) 00:00: mouth [place] 10 mg 00 every Medical morning. Branch semaglutide 2021-11 Yes [id number] .5mg inject 0.5 [facility] (OZEMPIC) 2-23 mg under ity of 0.25 mg or 00:00: the skin [place] 0.5 mg(2 00 weekly. Medical mg/1.5 mL) Branch PnIj empaglifloz 2021-11 Yes [id number] 10mg Take 1 [facility] in 2-23 tablet by ity of (JARDIANCE) 00:00: mouth [place] 10 mg 00 every Medical morning. Branch semaglutide 2021-11 Yes [id number] .5mg inject 0.5 [facility] (OZEMPIC) 2-23 mg under ity of 0.25 mg or 00:00: the skin [place] 0.5 mg(2 00 weekly. Medical mg/1.5 mL) Branch PnIj empaglifloz 2021-11 Yes [id number] 10mg Take 1 [facility] in 2-23 tablet by ity of (JARDIANCE) 00:00: mouth [place] 10 mg 00 every Medical morning. Branch semaglutide 2021-11 Yes [id number] .5mg inject 0.5 [facility] (OZEMPIC) 2-23 mg under ity of 0.25 mg or 00:00: the skin [place] 0.5 mg(2 00 weekly. Medical mg/1.5 mL) Branch PnIj empaglifloz 2021-11 Yes [id number] 10mg Take 1 [facility] in 2-23 tablet by ity of (JARDIANCE) 00:00: mouth [place] 10 mg 00 every Medical morning. Branch semaglutide 2021-11 Yes [id number] .5mg inject 0.5 [facility] (OZEMPIC) 2-23 mg under ity of 0.25 mg or 00:00: the skin [place] 0.5 mg(2 00 weekly. Medical mg/1.5 mL) [place] empaglifloz 2021-11 Yes [id number] 10mg Take 1 [facility] in 2-23 tablet by ity of (JARDIANCE) 00:00: mouth [place] 10 mg 00 every Medical morning. Branch semaglutide 2021-11 Yes [id number] .5mg inject 0.5 [facility] (OZEMPIC) 2-23 mg under ity of 0.25 mg or 00:00: the skin [place] 0.5 mg(2 00 weekly. Medical mg/1.5 mL) [place] empaglifloz 2021-11 Yes [id number] 10mg Take 1 [facility] in 2-23 tablet by ity of (JARDIANCE) 00:00: mouth [place] 10 mg 00 every Medical morning. Branch semaglutide 2021-11 Yes [id number] .5mg inject 0.5 [facility] (OZEMPIC) 2-23 mg under ity of 0.25 mg or 00:00: the skin [place] 0.5 mg(2 00 weekly. Medical mg/1.5 mL) [place] empaglifloz 2021-11 Yes [id number] 10mg Take 1 [facility] in 2-23 tablet by ity of (JARDIANCE) 00:00: mouth [place] 10 mg 00 every Medical morning. Branch semaglutide 2021-11 Yes [id number] .5mg inject 0.5 [facility] (OZEMPIC) 2-23 mg under ity of 0.25 mg or 00:00: the skin [place] 0.5 mg(2 00 weekly. Medical mg/1.5 mL) Branch AnivalIj empaglifloz 2021-11 Yes [id number] 10mg Take 1 [facility] in 2-23 tablet by ity of (JARDIANCE) 00:00: mouth [place] 10 mg 00 every Medical morning. Branch ondansetron 2021-11 No 4mg 4 mg, Slow [facility] (ZOFRAN 2-16 12-16 IV Push, ity of (PF)) 09:00: 09:12 ONCE, 1 [place] injection 4 00 :00 dose, On Medi johnathon mg Fri Branch 11/07/22 at 0300, DELFIN iopamidol 2021-11- No [id number] 100mL 100 mL, Univers (ISOVUE -11-07 Intravenou ity o f 370-500 mL) 08:15: 08:15 s, ONCE, 1 [place] injection 00 :00 dose, On Medica l 100 mL Fri Branch 11/07/22 at 0215, Routine ketorolac 2021-11 No 30mg 30 mg, Unive rs (TORADOL) 01-08 Slow IV ity of injection 07:30: 06:41 Push, [place] 30 mg 00 :00 ONCE, 1 Medical dose, On Branch 11/07/22 at 0130, Routine ondansetron 2021-11- No 4mg 4 mg, Slow [facility] (ZOFRAN 01-08 IV Push, ity of (PF)) 06:30: 06:39 ONCE, 1 [place] injection 4 00 :00 dose, On Medi johnathon mg Fri Branch 11/07/22 at 0030, DELFIN ondansetron 2021-11 Yes [id number] 8mg Take 1 [facility] 8 mg 2-16 tablet by ity of disintegrat 00:00: mouth [place] ing tablet 00 every 8 Medica l (eight) Branch hours as needed for Nausea and Vomiting (N/V). proMETHazin 2021-11 Yes [id number] 25mg Take 1 Univers e 25 mg 2-16 tablet by ity of tablet 00:00: mouth [place] 00 every 6 Medical (six) Branch hours as needed for N/V unresponsi ve to Ondansetro n. ondansetron 2021-11 Yes [id number] 8mg Take 1 [facility] 8 mg 2-16 tablet by ity of disintegrat 00:00: mouth [place] ing tablet 00 every 8 Medica l (eight) Branch hours as needed for Nausea and Vomiting (N/V). proMETHazin 2021-11 Yes [id number] 25mg Take 1 Univers e 25 mg 2-16 tablet by ity of tablet 00:00: mouth [place] 00 every 6 Medical (six) Branch hours as needed for N/V unresponsi ve to Ondansetro n. azithromyci 2021-11 Yes [id number] Take two Univers n 250 mg 2-16 tablets my ity o f tablet 00:00: mouth [place] 00 today Medical followed Branch by one tablet daily for a total for 5 days. Do not take with ondansetro n (wait at least 12 hours after taking azithromyc in) predniSONE 2021-11 Yes [id number] Take one [facility] 20 mg 2-16 tablet by ity of tablet 00:00: mouth [place] 00 daily for Medical five days Branch ondansetron 2021-11 Yes [id number] 8mg Take 1 [facility] 8 mg 2-16 tablet by ity of disintegrat 00:00: mouth [place] ing tablet 00 every 8 Medica l (eight) Branch hours as needed for Nausea and Vomiting (N/V). proMETHazin 2021-11 Yes [id number] 25mg Take 1 Univers e 25 mg 2-16 tablet by ity of tablet 00:00: mouth [place] 00 every 6 Medical (six) Branch hours as needed for N/V unresponsi ve to Ondansetro n. azithromyci 2021-11 Yes [id number] Take two Univers n 250 mg 2-16 tablets my ity o f tablet 00:00: mouth [place] 00 today Medical followed Branch by one tablet daily for a total for 5 days. Do not take with ondansetro n (wait at least 12 hours after taking azithromyc in) predniSONE 2021-11 Yes [id number] Take one [facility] 20 mg 2-16 tablet by ity of tablet 00:00: mouth [place] 00 daily for Medical five days Branch ondansetron 2021-11 Yes [id number] 8mg Take 1 [facility] 8 mg 2-16 tablet by ity of disintegrat 00:00: mouth [place] ing tablet 00 every 8 Medica l (eight) Branch hours as needed for Nausea and Vomiting (N/V). proMETHazin 2021-11 Yes [id number] 25mg Take 1 [facility] e 25 mg 2-16 tablet by ity of tablet 00:00: mouth [place] 00 every 6 Medical (six) Branch hours as needed for N/V unresponsi ve to Ondansetro n. azithromyci 2021-11 Yes [id number] Take two [facility] n 250 mg 2-16 tablets my ity o f tablet 00:00: mouth [place] 00 today Medical followed Branch by one tablet daily for a total for 5 days. Do not take with ondansetro n (wait at least 12 hours after taking azithromyc in) predniSONE 2021-11 Yes [id number] Take one [facility] 20 mg 2-16 tablet by ity of tablet 00:00: mouth [place] 00 daily for Medical five days Branch ondansetron 2021-11 Yes [id number] 8mg Take 1 [facility]-16 tablet by [facility] disintegrat 00:00: mouth [place] ing tablet 00 every 8 [facility] (eight) Branch hours as needed for Nausea and Vomiting (N/V). proMETHazin 2021-11 Yes [id number] 25mg Take 1 [facility] 25 mg 2-16 tablet by [facility] tablet 00:00: mouth [place] 00 every 6 Medical (six) Branch hours as needed for N/V unresponsi ve to Ondansetro n. azithromyci 2021-11 Yes [id number] Take two [facility] 250 mg 2-16 tablets my [facility] o f tablet 00:00: mouth [place] 00 today Medical followed Branch by one tablet daily for a total for 5 days. Do not take with ondansetro n (wait at least 12 hours after taking azithromyc in) predniSONE 2021-11 Yes [id number] Take one [facility] 20 mg 2-16 tablet by [facility] tablet 00:00: mouth [place] 00 daily for Medical five days Branch ondansetron 2021-11 Yes [id number] 8mg Take 1 [facility] 8 mg 2-16 tablet by [facility] disintegrat 00:00: mouth [place] ing tablet 00 every 8 [facility] (eight) Branch hours as needed for Nausea and Vomiting (N/V). proMETHazin 2021-11 Yes [id number] 25mg Take 1 [facility] 25 mg 2-16 tablet by [facility] tablet 00:00: mouth [place] 00 every 6 Medical (six) Branch hours as needed for N/V unresponsi ve to Ondansetro n. azithromyci 2021-11 Yes [id number] Take two [facility] 250 mg 2-16 tablets my [facility] o f tablet 00:00: mouth [place] 00 today Medical followed Branch by one tablet daily for a total for 5 days. Do not take with ondansetro n (wait at least 12 hours after taking azithromyc in) predniSONE 2021-11 Yes [id number] Take one [facility] 20 mg 2-16 tablet by [facility] tablet 00:00: mouth [place] 00 daily for Medical five days Branch ondansetron 2021-11 Yes [id number] 8mg Take 1 [facility] 8 mg 2-16 tablet by [facility] disintegrat 00:00: mouth [place] ing tablet 00 every 8 [facility] (eight) Branch hours as needed for Nausea and Vomiting (N/V). proMETHazin 2021-11 Yes [id number] 25mg Take 1 [facility] 25 mg 2-16 tablet by [facility] tablet 00:00: mouth [place] 00 every 6 Medical (six) Branch hours as needed for N/V unresponsi ve to Ondansetro n. azithromyci 2021-11 Yes [id number] Take two [facility] 250 mg 2-16 tablets my [facility] o f tablet 00:00: mouth [place] 00 today Medical followed Branch by one tablet daily for a total for 5 days. Do not take with ondansetro n (wait at least 12 hours after taking azithromyc in) predniSONE 2021-11 Yes [id number] Take one [facility] 20 mg 2-16 tablet by [facility] tablet 00:00: mouth [place] 00 daily for Medical five days Branch ondansetron 2021-11 Yes [id number] 8mg Take 1 [facility] 8 mg 2-16 tablet by [facility] disintegrat 00:00: mouth [place] ing tablet 00 every 8 [facility] (eight) Branch hours as needed for Nausea and Vomiting (N/V). proMETHazin 2021-11 Yes [id number] 25mg Take 1 [facility] 25 mg 2-16 tablet by [facility] tablet 00:00: mouth [place] 00 every 6 Medical (six) Branch hours as needed for N/V unresponsi ve to Ondansetro n. azithromyci 2021-11 Yes [id number] Take two [facility] 250 mg 2-16 tablets my [facility] o f tablet 00:00: mouth [place] 00 today Medical followed Branch by one tablet daily for a total for 5 days. Do not take with ondansetro n (wait at least 12 hours after taking azithromyc in) predniSONE 2021-11 Yes [id number] Take one [facility] 20 mg 2-16 tablet by [facility] tablet 00:00: mouth [place] 00 daily for Medical five days Branch ondansetron 2021-11 Yes [id number] 8mg Take 1 [facility] 8 mg 2-16 tablet by [facility] disintegrat 00:00: mouth [place] ing tablet 00 every 8 [facility] (eight) Branch hours as needed for Nausea and Vomiting (N/V). proMETHazin 2021-11 Yes [id number] 25mg Take 1 [facility] 25 mg 2-16 tablet by [facility] of tablet 00:00: mouth [place] 00 every 6 Medical (six) Branch hours as needed for N/V unresponsi ve to Ondansetro n. azithromyci 2021-11 Yes [id number] Take two [facility] 250 mg 2-16 tablets my [facility] o f tablet 00:00: mouth [place] 00 today Medical followed Branch by one tablet daily for a total for 5 days. Do not take with ondansetro n (wait at least 12 hours after taking azithromyc in) predniSONE 2021-11 Yes [id number] Take one [facility] 20 mg 2-16 tablet by [facility] tablet 00:00: mouth [place] 00 daily for Medical five days Branch ondansetron 2021-11 Yes [id number] 8mg Take 1 [facility] 8 mg 2-16 tablet by [facility] disintegrat 00:00: mouth [place] ing tablet 00 every 8 [facility] (eight) Branch hours as needed for Nausea and Vomiting (N/V). proMETHazin 2021-11 Yes [id number] 25mg Take 1 [facility] 25 mg 2-16 tablet by [facility] of tablet 00:00: mouth [place] 00 every 6 Medical (six) Branch hours as needed for N/V unresponsi ve to Ondansetro n. azithromyci 2021-11 Yes [id number] Take two [facility] 250 mg 2-16 tablets my [facility] o f tablet 00:00: mouth [place] 00 today Medical followed Branch by one tablet daily for a total for 5 days. Do not take with ondansetro n (wait at least 12 hours after taking azithromyc in) predniSONE 2021-11 Yes [id number] Take one [facility] 20 mg 2-16 tablet by [facility] tablet 00:00: mouth [place] 00 daily for Medical five days Branch ondansetron 2021-11 Yes [id number] 8mg Take 1 [facility] 8 mg 2-16 tablet by [facility] disintegrat 00:00: mouth [place] ing tablet 00 every 8 [facility] (eight) Branch hours as needed for Nausea and Vomiting (N/V). proMETHazin 2021-11 Yes [id number] 25mg Take 1 [facility] 25 mg 2-16 tablet by [facility] tablet 00:00: mouth [place] 00 every 6 Medical (six) Branch hours as needed for N/V unresponsi ve to Ondansetro n. azithromyci 2021-11 Yes [id number] Take two [facility] 250 mg 2-16 tablets my [facility] o f tablet 00:00: mouth [place] 00 today Medical followed Branch by one tablet daily for a total for 5 days. Do not take with ondansetro n (wait at least 12 hours after taking azithromyc in) predniSONE 2021-11 Yes [id number] Take one [facility] 20 mg 2-16 tablet by [facility] of tablet 00:00: mouth [place] 00 daily for Medical five days Branch ondansetron 2021-11 Yes [id number] 8mg Take 1 [facility] 8 mg 2-16 tablet by [facility] disintegrat 00:00: mouth [place] ing tablet 00 every 8 [facility] (eight) Branch hours as needed for Nausea and Vomiting (N/V). proMETHazin 2021-11 Yes [id number] 25mg Take 1 [facility] 25 mg 2-16 tablet by [facility] of tablet 00:00: mouth [place] 00 every 6 Medical (six) Branch hours as needed for N/V unresponsi ve to Ondansetro n. azithromyci 2021-11 Yes [id number] Take two [facility] 250 mg 2-16 tablets my [facility] o f tablet 00:00: mouth [place] 00 today Medical followed Branch by one tablet daily for a total for 5 days. Do not take with ondansetro n (wait at least 12 hours after taking azithromyc in) predniSONE 2021-11 Yes [id number] Take one [facility] 20 mg 2-16 tablet by [facility] of tablet 00:00: mouth [place] 00 daily for Medical five days Branch ondansetron 2021-11 Yes [id number] 8mg Take 1 [facility] 8 mg 2-16 tablet by [facility] disintegrat 00:00: mouth [place] ing tablet 00 every 8 [facility] (eight) Branch hours as needed for Nausea and Vomiting (N/V). proMETHazin 2021-11 Yes [id number] 25mg Take 1 [facility] 25 mg 2-16 tablet by [facility] of tablet 00:00: mouth [place] 00 every 6 Medical (six) Branch hours as needed for N/V unresponsi ve to Ondansetro n. azithromyci 2021-11 Yes [id number] Take two [facility] 250 mg 2-16 tablets my [facility] o f tablet 00:00: mouth [place] 00 today Medical followed Branch by one tablet daily for a total for 5 days. Do not take with ondansetro n (wait at least 12 hours after taking azithromyc in) predniSONE 2021-11 Yes [id number] Take one [facility] 20 mg 2-16 tablet by [facility] of tablet 00:00: mouth [place] 00 daily for Medical five days Branch ondansetron 2021-11 Yes [id number] 8mg Take 1 [facility] 8 mg 2-16 tablet by [facility] disintegrat 00:00: mouth [place] ing tablet 00 every 8 [facility] (eight) Branch hours as needed for Nausea and Vomiting (N/V). proMETHazin 2021-11 Yes [id number] 25mg Take 1 [facility] 25 mg 2-16 tablet by [facility] of tablet 00:00: mouth [place] 00 every 6 Medical (six) Branch hours as needed for N/V unresponsi ve to Ondansetro n. azithromyci 2021-11 Yes [id number] Take two [facility] 250 mg 2-16 tablets my [facility] o f tablet 00:00: mouth [place] 00 today Medical followed Branch by one tablet daily for a total for 5 days. Do not take with ondansetro n (wait at least 12 hours after taking azithromyc in) predniSONE 2021-11 Yes [id number] Take one [facility] 20 mg 2-16 tablet by [facility] tablet 00:00: mouth [place] 00 daily for Medical five days Branch ondansetron 2021-11 Yes [id number] 8mg Take 1 [facility] 8 mg 2-16 tablet by [facility] disintegrat 00:00: mouth [place] ing tablet 00 every 8 [facility] (eight) Branch hours as needed for Nausea and Vomiting (N/V). proMETHazin 2021-11 Yes [id number] 25mg Take 1 [facility] 25 mg 2-16 tablet by [facility] of tablet 00:00: mouth [place] 00 every 6 Medical (six) Branch hours as needed for N/V unresponsi ve to Ondansetro n. azithromyci 2021-11 Yes [id number] Take two [facility] 250 mg 2-16 tablets my [facility] o f tablet 00:00: mouth [place] 00 today Medical followed Branch by one tablet daily for a total for 5 days. Do not take with ondansetro n (wait at least 12 hours after taking azithromyc in) predniSONE 2021-11 Yes [id number] Take one [facility] 20 mg 2-16 tablet by [facility] tablet 00:00: mouth [place] 00 daily for Medical five days Branch ondansetron 2021-11 Yes [id number] 8mg Take 1 [facility] 8 mg 2-16 tablet by [facility] disintegrat 00:00: mouth [place] ing tablet 00 every 8 [facility] (eight) Branch hours as needed for Nausea and Vomiting (N/V). proMETHazin 2021-11 Yes [id number] 25mg Take 1 [facility] 25 mg 2-16 tablet by [facility] of tablet 00:00: mouth [place] 00 every 6 Medical (six) Branch hours as needed for N/V unresponsi ve to Ondansetro n. azithromyci 2021-11 Yes [id number] Take two [facility] 250 mg 2-16 tablets my [facility] o f tablet 00:00: mouth [place] 00 today Medical followed Branch by one tablet daily for a total for 5 days. Do not take with ondansetro n (wait at least 12 hours after taking azithromyc in) predniSONE 2021-11 Yes [id number] Take one [facility] 20 mg 2-16 tablet by [facility] of tablet 00:00: mouth [place] 00 daily for Medical five days Branch ondansetron 2021-11 Yes [id number] 8mg Take 1 [facility] 8 mg 2-16 tablet by [facility] disintegrat 00:00: mouth [place] ing tablet 00 every 8 Med[facility] (eight) Branch hours as needed for Nausea and Vomiting (N/V). proMETHazin 2021-11 Yes [id number] 25mg Take 1 [facility] 25 mg 2-16 tablet by [facility] of tablet 00:00: mouth [place] 00 every 6 Medical (six) Branch hours as needed for N/V unresponsi ve to Ondansetro n. azithromyci 2021-11 Yes [id number] Take two [facility] 250 mg 2-16 tablets my [facility] o f tablet 00:00: mouth [place] 00 today Medical followed Branch by one tablet daily for a total for 5 days. Do not take with ondansetro n (wait at least 12 hours after taking azithromyc in) predniSONE 2021-11 Yes [id number] Take one [facility] 20 mg 2-16 tablet by [facility] of tablet 00:00: mouth [place] 00 daily for Medical five days Branch ondansetron 2021-11 Yes [id number] 8mg Take 1 [facility] 8 mg 2-16 tablet by [facility] of disintegrat 00:00: mouth [place] ing tablet 00 every 8 Med[facility] (eight) Branch hours as needed for Nausea and Vomiting (N/V). proMETHazin 2021-11 Yes [id number] 25mg Take 1 [facility] 25 mg 2-16 tablet by [facility] of tablet 00:00: mouth [place] 00 every 6 Medical (six) Branch hours as needed for N/V unresponsi ve to Ondansetro n. azithromyci 2021-11 Yes [id number] Take two [facility] 250 mg 2-16 tablets my it[facility] o f tablet 00:00: mouth [place] 00 today Medical followed Branch by one tablet daily for a total for 5 days. Do not take with ondansetro n (wait at least 12 hours after taking azithromyc in) predniSONE 2021-11 Yes [id number] Take one [facility] 20 mg 2-16 tablet by [facility] of tablet 00:00: mouth [place] 00 daily for Medical five days Branch ondansetron 2021-11 Yes [id number] 8mg Take 1 [facility] 8 mg 2-16 tablet by [facility] of disintegrat 00:00: mouth [place] ing tablet 00 every 8 Medica [facility] (eight) Branch hours as needed for Nausea and Vomiting (N/V). proMETHazin 2021-11 Yes [id number] 25mg Take 1 [facility] 25 mg 2-16 tablet by [facility] of tablet 00:00: mouth [place] 00 every 6 Medical (six) Branch hours as needed for N/V unresponsi ve to Ondansetro n. azithromyci 2021-11 Yes [id number] Take two [facility] 250 mg 2-16 tablets my ity o f tablet 00:00: mouth [place] 00 today Medical followed Branch by one tablet daily for a total for 5 days. Do not take with ondansetro n (wait at least 12 hours after taking azithromyc in) predniSONE 2021-11 Yes [id number] Take one [facility] 20 mg 2-16 tablet by [facility] of tablet 00:00: mouth [place] 00 daily for Medical five days Branch ondansetron 2021-11 Yes [id number] 8mg Take 1 [facility] 8 mg 2-16 tablet by [facility] of disintegrat 00:00: mouth [place] ing tablet 00 every 8 Medica l (eight) Branch hours as needed for Nausea and Vomiting (N/V). proMETHazin 2021-11 Yes [id number] 25mg Take 1 [facility] 25 mg 2-16 tablet by [facility] of tablet 00:00: mouth [place] 00 every 6 Medical (six) Branch hours as needed for N/V unresponsi ve to Ondansetro n. azithromyci 2021-11 Yes [id number] Take two [facility] 250 mg 2-16 tablets my it[facility] o f tablet 00:00: mouth [place] 00 today Medical followed Branch by one tablet daily for a total for 5 days. Do not take with ondansetro n (wait at least 12 hours after taking azithromyc in) predniSONE 2021-11 Yes [id number] Take one [facility] 20 mg 2-16 tablet by [facility] of tablet 00:00: mouth [place] 00 daily for Medical five days Branch ondansetron 2021-11 Yes [id number] 8mg Take 1 [facility] 8 mg 2-16 tablet by [facility] of disintegrat 00:00: mouth [place] ing tablet 00 every 8 Medica l (eight) Branch hours as needed for Nausea and Vomiting (N/V). proMETHazin 2021-11 Yes [id number] 25mg Take 1 [facility] 25 mg 2-16 tablet by [facility] of tablet 00:00: mouth [place] 00 every 6 Medical (six) Branch hours as needed for N/V unresponsi ve to Ondansetro n. azithromyci 2021-11 Yes [id number] Take two [facility] 250 mg 2-16 tablets my [facility] o f tablet 00:00: mouth [place] 00 today Medical followed Branch by one tablet daily for a total for 5 days. Do not take with ondansetro n (wait at least 12 hours after taking azithromyc in) predniSONE 2021-11 Yes [id number] Take one [facility] 20 mg 2-16 tablet by [facility] of tablet 00:00: mouth [place] 00 daily for Medical five days Branch ondansetron 2021-11 Yes [id number] 8mg Take 1 [facility] 8 mg 2-16 tablet by [facility] of disintegrat 00:00: mouth [place] ing tablet 00 every 8 Medica l (eight) Branch hours as needed for Nausea and Vomiting (N/V). proMETHazin 2021-11 Yes [id number] 25mg Take 1 [facility] 25 mg 2-16 tablet by [facility] of tablet 00:00: mouth [place] 00 every 6 Medical (six) Branch hours as needed for N/V unresponsi ve to Ondansetro n. azithromyci 2021-11 Yes [id number] Take two [facility] 250 mg 2-16 tablets my [facility] o f tablet 00:00: mouth [place] 00 today Medical followed Branch by one tablet daily for a total for 5 days. Do not take with ondansetro n (wait at least 12 hours after taking azithromyc in) predniSONE 2021-11 Yes [id number] Take one [facility] 20 mg 2-16 tablet by [facility] of tablet 00:00: mouth [place] 00 daily for Medical five days Branch ondansetron 2021-11 Yes [id number] 8mg Take 1 [facility] 8 mg 2-16 tablet by [facility] of disintegrat 00:00: mouth [place] ing tablet 00 every 8 Medica l (eight) Branch hours as needed for Nausea and Vomiting (N/V). proMETHazin 2021-11 Yes [id number] 25mg Take 1 [facility] 25 mg 2-16 tablet by [facility] of tablet 00:00: mouth [place] 00 every 6 Medical (six) Branch hours as needed for N/V unresponsi ve to Ondansetro n. azithromyci 2021-11 Yes [id number] Take two [facility] 250 mg 2-16 tablets my it[facility] o f tablet 00:00: mouth [place] 00 today Medical followed Branch by one tablet daily for a total for 5 days. Do not take with ondansetro n (wait at least 12 hours after taking azithromyc in) predniSONE 2021-11 Yes [id number] Take one [facility] 20 mg 2-16 tablet by [facility] of tablet 00:00: mouth [place] 00 daily for Medical five days Branch ondansetron 2021-11 Yes [id number] 8mg Take 1 [facility] 8 mg 2-16 tablet by [facility] of disintegrat 00:00: mouth [place] ing tablet 00 every 8 Medica l (eight) Branch hours as needed for Nausea and Vomiting (N/V). proMETHazin 2021-11 Yes [id number] 25mg Take 1 [facility] 25 mg 2-16 tablet by [facility] of tablet 00:00: mouth [place] 00 every 6 Medical (six) Branch hours as needed for N/V unresponsi ve to Ondansetro n. azithromyci 2021-11 Yes [id number] Take two [facility] 250 mg 2-16 tablets my it[facility] o f tablet 00:00: mouth [place] 00 today Medical followed Branch by one tablet daily for a total for 5 days. Do not take with ondansetro n (wait at least 12 hours after taking azithromyc in) predniSONE 2021-11 Yes [id number] Take one [facility] 20 mg 2-16 tablet by [facility] of tablet 00:00: mouth [place] 00 daily for Medical five days Branch ondansetron 2021-11 Yes [id number] 8mg Take 1 [facility] 8 mg 2-16 tablet by [facility] of disintegrat 00:00: mouth [place] ing tablet 00 every 8 Medica l (eight) Branch hours as needed for Nausea and Vomiting (N/V). proMETHazin 2021-11 Yes [id number] 25mg Take 1 [facility] 25 mg 2-16 tablet by [facility] of tablet 00:00: mouth [place] 00 every 6 Medical (six) Branch hours as needed for N/V unresponsi ve to Ondansetro n. azithromyci 2021-11 Yes [id number] Take two [facility] 250 mg 2-16 tablets my [facility] o f tablet 00:00: mouth [place] 00 today Medical followed Branch by one tablet daily for a total for 5 days. Do not take with ondansetro n (wait at least 12 hours after taking azithromyc in) predniSONE 2021-11 Yes [id number] Take one [facility] 20 mg 2-16 tablet by [facility] of tablet 00:00: mouth [place] 00 daily for Medical five days Branch ondansetron 2021-11 Yes [id number] 8mg Take 1 [facility] 8 mg 2-16 tablet by [facility] of disintegrat 00:00: mouth [place] ing tablet 00 every 8 Medica l (eight) Branch hours as needed for Nausea and Vomiting (N/V). proMETHazin 2021-11 Yes [id number] 25mg Take 1 [facility] 25 mg 2-16 tablet by [facility] of tablet 00:00: mouth [place] 00 every 6 Medical (six) Branch hours as needed for N/V unresponsi ve to Ondansetro n. azithromyci 2021-11 Yes [id number] Take two [facility] 250 mg 2-16 tablets my it[facility] o f tablet 00:00: mouth [place] 00 today Medical followed Branch by one tablet daily for a total for 5 days. Do not take with ondansetro n (wait at least 12 hours after taking azithromyc in) predniSONE 2021-11 Yes [id number] Take one [facility] 20 mg 2-16 tablet by [facility] of tablet 00:00: mouth [place] 00 daily for Medical five days Branch ondansetron 2021-11 Yes [id number] 8mg Take 1 [facility] 8 mg 2-16 tablet by [facility] of disintegrat 00:00: mouth [place] ing tablet 00 every 8 Medica l (eight) Branch hours as needed for Nausea and Vomiting (N/V). proMETHazin 2021-11 Yes [id number] 25mg Take 1 [facility] 25 mg 2-16 tablet by [facility] of tablet 00:00: mouth [place] 00 every 6 Medical (six) Branch hours as needed for N/V unresponsi ve to Ondansetro n. azithromyci 2021-11 Yes [id number] Take two [facility] 250 mg 2-16 tablets my [facility] o f tablet 00:00: mouth [place] 00 today Medical followed Branch by one tablet daily for a total for 5 days. Do not take with ondansetro n (wait at least 12 hours after taking azithromyc in) ondansetron 2021-11 Yes [id number] 8mg Take 1 [facility] 8 mg 2-16 tablet by [facility] of disintegrat 00:00: mouth [place] ing tablet 00 every 8 Medica l (eight) Branch hours as needed for Nausea and Vomiting (N/V). proMETHazin 2021-11 Yes [id number] 25mg Take 1 [facility] 25 mg 2-16 tablet by [facility] of tablet 00:00: mouth [place] 00 every 6 Medical (six) Branch hours as needed for N/V unresponsi ve to Ondansetro n. azithromyci 2021-11 Yes [id number] Take two [facility] 250 mg 2-16 tablets my it[facility] o f tablet 00:00: mouth [place] 00 today Medical followed Branch by one tablet daily for a total for 5 days. Do not take with ondansetro n (wait at least 12 hours after taking azithromyc in) ondansetron 2021-11 Yes [id number] 8mg Take 1 [facility] 8 mg 2-16 tablet by [facility] of disintegrat 00:00: mouth [place] ing tablet 00 every 8 Medica l (eight) Branch hours as needed for Nausea and Vomiting (N/V). proMETHazin 2021-11 Yes [id number] 25mg Take 1 [facility] 25 mg 2-16 tablet by [facility] of tablet 00:00: mouth [place] 00 every 6 Medical (six) Branch hours as needed for N/V unresponsi ve to Ondansetro n. azithromyci 2021-11 Yes [id number] Take two [facility] 250 mg 2-16 tablets my it[facility] o f tablet 00:00: mouth [place] 00 today Medical followed Branch by one tablet daily for a total for 5 days. Do not take with ondansetro n (wait at least 12 hours after taking azithromyc in) ondansetron 2021-11 Yes [id number] 8mg Take 1 [facility] 8 mg 2-16 tablet by [facility] of disintegrat 00:00: mouth [place] ing tablet 00 every 8 Medica l (eight) Branch hours as needed for Nausea and Vomiting (N/V). ondansetron 2021-11 Yes [id number] 8mg Take 1 [facility] 8 mg 2-16 tablet by [facility] of disintegrat 00:00: mouth [place] ing tablet 00 every 8 Medica l (eight) Branch hours as needed for Nausea and Vomiting (N/V). ondansetron 2021-11 Yes [id number] 8mg Take 1 [facility] 8 mg 2-16 tablet by it[facility] of disintegrat 00:00: mouth [place] ing tablet 00 every 8 Medica l (eight) Branch hours as needed for Nausea and Vomiting (N/V). ondansetron 2021-11 Yes [id number] 8mg Take 1 [facility] 8 mg 2-16 tablet by [facility] of disintegrat 00:00: mouth [place] ing tablet 00 every 8 Medica l (eight) Branch hours as needed for Nausea and Vomiting (N/V). ondansetron 2021-11 Yes [id number] 8mg Take 1 [facility] 8 mg 2-16 tablet by it[facility] of disintegrat 00:00: mouth [place] ing tablet 00 every 8 Medica l (eight) Branch hours as needed for Nausea and Vomiting (N/V). ondansetron 2021-11 Yes [id number] 8mg Take 1 [facility] 8 mg 2-16 tablet by it[facility] of disintegrat 00:00: mouth [place] ing tablet 00 every 8 Medica l (eight) Branch hours as needed for Nausea and Vomiting (N/V). ondansetron 2021-11 Yes [id number] 8mg Take 1 [facility] 8 mg 2-16 tablet by ity of disintegrat 00:00: mouth [place] ing tablet 00 every 8 Medica l (eight) Branch hours as needed for Nausea and Vomiting (N/V). proMETHazin 2021-11- No [id number] 25mg Take 1 [facility] 25 mg 2-16 01-12 tablet by [facility] of tablet 00:00: 00:00 mouth [place] 00 :00 every 6 Medical (six) Branch hours as needed for N/V unresponsi ve to Ondansetro n. azithromyci 2021-11- No [id number] Take two [facility] 250 mg 2-16 01-12 tablets my it[facility] of tablet 00:00: 00:00 mouth [place] 00 :00 today Medical followed Branch by one tablet daily for a total for 5 days. Do not take with ondansetro n (wait at least 12 hours after taking azithromyc in) proMETHazin 2021-11- No [id number] 25mg Take 1 [facility] 25 mg 2-16 01-12 tablet by [facility] of tablet 00:00: 00:00 mouth [place] 00 :00 every 6 Medical (six) Branch hours as needed for N/V unresponsi ve to Ondansetro n. azithromyci 2021-11- No [id number] Take two [facility] 250 mg 2-16 01-12 tablets my it[facility] of tablet 00:00: 00:00 mouth [place] 00 :00 today Medical followed Branch by one tablet daily for a total for 5 days. Do not take with ondansetro n (wait at least 12 hours after taking azithromyc in) predniSONE 2021-11- No [id number] Take one [facility] 20 mg 2-16 - tablet by ity of tablet 00:00: 00:00 mouth [place] 00 :00 daily for Medical five days [facility] 2021-11 Yes [id number] TAKE 1 [facility] 10 mg 1-28 TABLET BY ity of 00:00: MOUTH ONCE [place] 00 DAILY IN [facility] MORNING JARDIANCE 2021-11 Yes [id number] TAKE 1 [facility] les[facility] 10 mg 1-28 TABLET BY ity of 00:00: MOUTH ONCE [place] 00 DAILY IN [facility] JARDIANCE 2021-11 Yes [id number] TAKE 1 Un les[facility] 10 mg 1-28 TABLET BY ity of 00:00: MOUTH ONCE [place] 00 DAILY IN [facility] JARDIANCE 2021-11 Yes [id number] TAKE 1 Un [facility] 10 mg 1-28 TABLET BY ity of 00:00: MOUTH ONCE [place] 00 DAILY IN [facility] JARDIANCE 2021-11 Yes [id number] TAKE 1 [facility] 10 mg 1-28 TABLET BY ity of 00:00: MOUTH ONCE [place] 00 DAILY IN [facility] JARDIANCE 2021-11 Yes [id number] TAKE 1 [facility] 10 mg 1-28 TABLET BY ity of 00:00: MOUTH ONCE [place] 00 DAILY IN [facility] JARDIANCE 2021-11 Yes [id number] TAKE 1 [facility] 10 mg 1-28 TABLET BY ity of 00:00: MOUTH ONCE [place] 00 DAILY IN [facility] JARDIANCE 2021-11 Yes [id number] TAKE 1 [facility] 10 mg 1-28 TABLET BY ity of 00:00: MOUTH ONCE [place] 00 DAILY IN [facility] JARDIANCE 2021-11 Yes [id number] TAKE 1 [facility] 10 mg 1-28 TABLET BY ity of 00:00: MOUTH ONCE [place] 00 DAILY IN [facility] MORNING JARDIANCE 2021-11 Yes [id number] TAKE 1 Un les[facility] 10 mg 1-28 TABLET BY ity of 00:00: MOUTH ONCE [place] 00 DAILY IN [facility] JARDIANCE 2021-11 Yes [id number] TAKE 1 Un lesly 10 mg 1-28 TABLET BY ity of 00:00: MOUTH ONCE [place] 00 DAILY IN [facility] JARDIANCE 2021-11 Yes [id number] TAKE 1 Un lesly 10 mg 1-28 TABLET BY ity of 00:00: MOUTH ONCE [place] 00 DAILY IN [facility] MORNING JARDIANCE 2021-11 Yes [id number] TAKE 1 Un lesly 10 mg 1-28 TABLET BY ity of 00:00: MOUTH ONCE [place] 00 DAILY IN [facility] MORNING JARDIANCE 2021-11 Yes [id number] TAKE 1 Un lesly 10 mg 1-28 TABLET BY ity of 00:00: MOUTH ONCE [place] 00 DAILY IN [facility] JARDIANCE 2021-11 Yes [id number] TAKE 1 Un lesly 10 mg 1-28 TABLET BY ity of 00:00: MOUTH ONCE [place] 00 DAILY IN [facility] JARDIANCE 2021-11 Yes [id number] TAKE 1 Un lesly 10 mg 1-28 TABLET BY ity of 00:00: MOUTH ONCE [place] 00 DAILY IN [facility] JARDIANCE 2021-11 Yes [id number] TAKE 1 Un lesly 10 mg 1-28 TABLET BY ity of 00:00: MOUTH ONCE [place] 00 DAILY IN [facility] JARDIANCE 2021-11 Yes [id number] TAKE 1 Un lesly 10 mg 1-28 TABLET BY ity of 00:00: MOUTH ONCE [place] 00 DAILY IN [facility] JARDIANCE 2021-11 Yes [id number] TAKE 1 Un lesly 10 mg 1-28 TABLET BY ity of 00:00: MOUTH ONCE [place] 00 DAILY IN [facility] JARDIANCE 2021-11 Yes [id number] TAKE 1 Un lesly 10 mg 1-28 TABLET BY ity of 00:00: MOUTH ONCE [place] 00 DAILY IN [facility] MORNING JARDIANCE 2021-11- No [id number] TAKE 1 U nivers 10 mg 1-28 12-23 TABLET BY ity of 00:00: 00:00 MOUTH ONCE [place] 00 :00 DAILY IN [facility] MORNING JARDIANCE 2021-11- No [id number] TAKE 1 U nivers 10 mg 1-28 12-23 TABLET BY ity of 00:00: 00:00 MOUTH ONCE [place] 00 :00 DAILY IN [facility] JARDIANCE 2021-11- No [id number] TAKE 1 U nivers 10 mg 1-28 12-23 TABLET BY ity of 00:00: 00:00 MOUTH ONCE [place] 00 :00 DAILY IN [facility] MORNING JARDIANCE 2021-11- No [id number] TAKE 1 U nivers 10 mg 1-28 12-23 TABLET BY ity of 00:00: 00:00 MOUTH ONCE [place] 00 :00 DAILY IN [facility] MORNING JARDIANCE 2021-11- No [id number] TAKE 1 U nivers 10 mg 1-28 12-23 TABLET BY ity of 00:00: 00:00 MOUTH ONCE [place] 00 :00 DAILY IN [facility] MORNING JARDIANCE 2021-11- No [id number] TAKE 1 U nivers 10 mg 1-28 12-23 TABLET BY ity of 00:00: 00:00 MOUTH ONCE [place] 00 :00 DAILY IN [facility] MORNING JARDIANCE 2021-11- No [id number] TAKE 1 U nivers 10 mg 1-28 12-23 TABLET BY ity of 00:00: 00:00 MOUTH ONCE [place] 00 :00 DAILY IN [facility] acetamino 2021-11 Yes 1 tablet Un lesly en 325 mg 1-17 as needed ity o f tablet 13:52: [address] 2021-11 Yes 1 tablet Un lesly en 325 mg 1-17 as needed ity o f tablet 13:52: [address] 2021-11 Yes 1 tablet Un lesly en 325 mg 1-17 as needed ity o f tablet 13:52: [address] 2021-11 Yes 1 tablet Un lesly en 325 mg 1-17 as needed ity o f tablet 13:52: [address] 2021-11 Yes 1 tablet Un lesly en 325 mg 1-17 as needed ity o f tablet 13:52: [address] 2021-11 Yes 1 tablet Un lesly en 325 mg 1-17 as needed ity o f tablet 13:52: [address] 2021-11 Yes 1 tablet Un lesly en 325 mg 1-17 as needed ity o f tablet 13:52: [address] 2021-11 Yes 1 tablet Un lesly en 325 mg 1-17 as needed ity o f tablet 13:52: [address] 2021-11 Yes 1 tablet Un lesly en 325 mg 1-17 as needed ity o f tablet 13:52: [address] acetaminoph 2021-11 Yes 1 tablet Un lesly en 325 mg 1-17 as needed ity o f tablet 13:52: [address] acetaminoph 2021-11 Yes 1 tablet Un lesly en 325 mg 1-17 as needed ity o f tablet 13:52: [address] acetaminoph 2021-11 Yes 1 tablet Un lesly en 325 mg 1-17 as needed ity o f tablet 13:52: [address] acetaminoph 2021-11 Yes 1 tablet Un lesly en 325 mg 1-17 as needed ity o f tablet 13:52: [address] acetaminoph 2021-11 Yes 1 tablet Un lesly en 325 mg 1-17 as needed ity o f tablet 13:52: [address] acetaminoph 2021-11 Yes 1 tablet Un lesly en 325 mg 1-17 as needed ity o f tablet 13:52: [address] acetaminoph 2021-11 Yes 1 tablet Un lesly en 325 mg 1-17 as needed ity o f tablet 13:52: [address] acetaminoph 2021-11 Yes 1 tablet Un lesly en 325 mg 1-17 as needed ity o f tablet 13:52: [address] acetaminoph 2021-11 Yes 1 tablet Un lesly en 325 mg 1-17 as needed ity o f tablet 13:52: [address] acetaminoph 2021-11 Yes 1 tablet Un lesly en 325 mg 1-17 as needed ity o f tablet 13:52: [address] acetaminoph 2021-11 Yes 1 tablet Un lesly en 325 mg 1-17 as needed ity o f tablet 13:52: [address] acetaminoph 2021-11 Yes 1 tablet Un lesly en 325 mg 1-17 as needed ity o f tablet 13:52: [address] acetaminoph 2021-11 Yes 1 tablet Un lesly en 325 mg 1-17 as needed ity o f tablet 13:52: [address] acetaminoph 2021-11 Yes 1 tablet Un lesly en 325 mg 1-17 as needed ity o f tablet 13:52: [address] acetaminoph 2021-11 Yes 1 tablet Un lesly en 325 mg 1-17 as needed ity o f tablet 13:52: [address] acetaminoph 2021-11 Yes 1 tablet Un lesly en 325 mg 1-17 as needed ity o f tablet 13:52: [address] acetaminoph 2021-11 Yes 1 tablet Un lesly en 325 mg 1-17 as needed ity o f tablet 13:52: [address] acetaminoph 2021-11 Yes 1 tablet Un lesly en 325 mg 1-17 as needed ity o f tablet 13:52: [address] acetaminoph 2021-11 Yes 1 tablet Un lesly en 325 mg 1-17 as needed ity o f tablet 13:52: [address] acetaminoph 2021-11 Yes 1 tablet Un lesly en 325 mg 1-17 as needed ity o f tablet 13:52: [address] acetaminoph 2021-11 Yes 1 tablet Un lesly en 325 mg 1-17 as needed ity o f tablet 13:52: [address] acetaminoph 2021-11 Yes 1 tablet Un lesly en 325 mg 1-17 as needed ity o f tablet 13:52: [address] acetaminoph 2021-11 Yes 1 tablet Un lesly en 325 mg 1-17 as needed ity o f tablet 13:52: [address] acetaminoph 2021-11 Yes 1 tablet Un lesly en 325 mg 1-17 as needed ity o f tablet 13:52: [address] acetaminoph 2021-11 Yes 1 tablet Un lesyl en 325 mg 1-17 as needed ity o f tablet 13:52: [address] acetaminoph 2021-11 Yes 1 tablet Un lesly en 325 mg 1-17 as needed ity o f tablet 13:52: [address] acetaminoph 2021-11 Yes 1 tablet Un lesly en 325 mg 1-17 as needed ity o f tablet 13:52: [address] acetaminoph 2021-11 Yes 1 tablet Un lesly en 325 mg 1-17 as needed ity o f tablet 13:52: [address] acetaminoph 2021-11 Yes 1 tablet Un lesly en 325 mg 1-17 as needed ity o f tablet 13:52: [address] 2021-11 Yes 1 tablet Un lesly en 325 mg 1-17 as needed ity o f tablet 13:52: [address] 2021-11 Yes 1 tablet Un lesly en 325 mg 1-17 as needed ity o f tablet 13:52: [address] 2021-11 Yes 1 tablet Un lesly en 325 mg 1-17 as needed ity o f tablet 13:52: [address] 2021-11 Yes 1 tablet Un lesly en 325 mg 1-17 as needed ity o f tablet 13:52: [address] 2021-11 Yes 1 tablet Un lesly en 325 mg 1-17 as needed ity o f tablet 13:52: [address] 2021-11 Yes 1 tablet Un lesly en 325 mg 1-17 as needed ity o f tablet 13:52: [address] 2021-11 Yes 1 tablet Un lesly en 325 mg 1-17 as needed ity o f tablet 13:52: [address] 2021-11 Yes 1 tablet Un lesly en 325 mg 1-17 as needed ity o f tablet 13:52: [address] 2021-11 Yes 1 tablet Un lesly en 325 mg 1-17 as needed ity o f tablet 13:52: [address] 2021-11 Yes 1 tablet Un lesly en 325 mg 1-17 as needed ity o f tablet 13:52: [address] 2021-11 Yes 1 tablet Un lesly en 325 mg 1-17 as needed ity o f tablet 13:52: [address] metoprolol 2021-11 Yes [id number] 25mg Take 0.5 [facility] succinate 1-17 tablets by ity of XL 50 mg 24 00:00: mouth in [place] hr tablet 00 the Medical morning. Branch metoprolol 2021-11 Yes [id number] 25mg Take 0.5 [facility] succinate 1-17 tablets by ity of XL 50 mg 24 00:00: mouth in [place] hr tablet 00 the morning. Branch metoprolol 2021-11 Yes [id number] 25mg Take 0.5 [facility] succinate 1-17 tablets by ity of XL 50 mg 24 00:00: mouth in [place] hr tablet 00 the Medical morning. Branch metoprolol 2021-11 Yes [id number] 25mg Take 0.5 [facility] succinate 1-17 tablets by ity of XL 50 mg 24 00:00: mouth in [place] hr tablet 00 the Medical morning. Branch metoprolol 2021-11 Yes [id number] 25mg Take 0.5 [facility] succinate 1-17 tablets by ity of XL 50 mg 24 00:00: mouth in [place] hr tablet 00 the Medical morning. Branch metoprolol 2021-11 Yes [id number] 25mg Take 0.5 [facility] succinate 1-17 tablets by ity of XL 50 mg 24 00:00: mouth in [place] hr tablet 00 the Medical morning. Branch metoprolol 2021-11 Yes [id number] 25mg Take 0.5 [facility] succinate 1-17 tablets by ity of XL 50 mg 24 00:00: mouth in [place] hr tablet 00 the Medical morning. Branch metoprolol 2021-11 Yes [id number] 25mg Take 0.5 [facility] succinate 1-17 tablets by ity of XL 50 mg 24 00:00: mouth in [place] hr tablet 00 the Medical morning. Branch metoprolol 2021-11 Yes [id number] 25mg Take 0.5 [facility] succinate 1-17 tablets by ity of XL 50 mg 24 00:00: mouth in [place] hr tablet 00 the Medical morning. Branch metoprolol 2021-11 Yes [id number] 25mg Take 0.5 [facility] succinate 1-17 tablets by ity of XL 50 mg 24 00:00: mouth in [place] hr tablet 00 the Medical morning. Branch metoprolol 2021-11 Yes [id number] 25mg Take 0.5 [facility] succinate 1-17 tablets by ity of XL 50 mg 24 00:00: mouth in [place] hr tablet 00 the Medical morning. Branch metoprolol 2021-11 Yes [id number] 25mg Take 0.5 [facility] succinate 1-17 tablets by ity of XL 50 mg 24 00:00: mouth in [place] hr tablet 00 the Medical morning. Branch metoprolol 2021-11 Yes [id number] 25mg Take 0.5 [facility] succinate 1-17 tablets by ity of XL 50 mg 24 00:00: mouth in [place] hr tablet 00 the Medical morning. Branch metoprolol 2021-11 Yes [id number] 25mg Take 0.5 [facility] succinate 1-17 tablets by ity of XL 50 mg 24 00:00: mouth in [place] hr tablet 00 the Medical morning. Branch metoprolol 2021-11 Yes [id number] 25mg Take 0.5 [facility] succinate 1-17 tablets by ity of XL 50 mg 24 00:00: mouth in [place] hr tablet 00 the Medical morning. Branch metoprolol 2021-11 Yes [id number] 25mg Take 0.5 [facility] succinate 1-17 tablets by ity of XL 50 mg 24 00:00: mouth in [place] hr tablet 00 the Medical morning. Branch metoprolol 2021-11 Yes [id number] 25mg Take 0.5 [facility] succinate 1-17 tablets by ity of XL 50 mg 24 00:00: mouth in [place] hr tablet 00 the Medical morning. Branch metoprolol 2021-11 Yes [id number] 25mg Take 0.5 [facility] succinate 1-17 tablets by ity of XL 50 mg 24 00:00: mouth in [place] hr tablet 00 the Medical morning. Branch metoprolol 2021-11 Yes [id number] 25mg Take 0.5 [facility] succinate 1-17 tablets by ity of XL 50 mg 24 00:00: mouth in [place] hr tablet 00 the Medical morning. Branch metoprolol 2021-11 Yes [id number] 25mg Take 0.5 [facility] succinate 1-17 tablets by ity of XL 50 mg 24 00:00: mouth in [place] hr tablet 00 the Medical morning. Branch metoprolol 2021-11 Yes [id number] 25mg Take 0.5 [facility] succinate 1-17 tablets by ity of XL 50 mg 24 00:00: mouth in [place] hr tablet 00 the Medical morning. Branch metoprolol 2021-11 Yes [id number] 25mg Take 0.5 [facility] succinate 1-17 tablets by ity of XL 50 mg 24 00:00: mouth in [place] hr tablet 00 the Medical morning. Branch metoprolol 2021-11 Yes [id number] 25mg Take 0.5 [facility] succinate 1-17 tablets by ity of XL 50 mg 24 00:00: mouth in [place] hr tablet 00 the Medical morning. Branch metoprolol 2021-11 Yes [id number] 25mg Take 0.5 [facility] succinate 1-17 tablets by ity of XL 50 mg 24 00:00: mouth in [place] hr tablet 00 the Medical morning. Branch metoprolol 2021-11 Yes [id number] 25mg Take 0.5 [facility] succinate 1-17 tablets by ity of XL 50 mg 24 00:00: mouth in [place] hr tablet 00 the Medical morning. Branch metoprolol 2021-11 Yes [id number] 25mg Take 0.5 [facility] succinate 1-17 tablets by ity of XL 50 mg 24 00:00: mouth in [place] hr tablet 00 the Medical morning. Branch metoprolol 2021-11 Yes [id number] 25mg Take 0.5 [facility] succinate 1-17 tablets by ity of XL 50 mg 24 00:00: mouth in [place] hr tablet 00 the Medical morning. Branch metoprolol 2021-11 Yes [id number] 25mg Take 0.5 [facility] succinate 1-17 tablets by ity of XL 50 mg 24 00:00: mouth in [place] hr tablet 00 the Medical morning. Branch metoprolol 2021-11 Yes [id number] 25mg Take 0.5 [facility] succinate 1-17 tablets by ity of XL 50 mg 24 00:00: mouth in [place] hr tablet 00 the Medical morning. Branch metoprolol 2021-11 Yes [id number] 25mg Take 0.5 [facility] succinate 1-17 tablets by ity of XL 50 mg 24 00:00: mouth in [place] hr tablet 00 the Medical morning. Branch metoprolol 2021-11 Yes [id number] 25mg Take 0.5 [facility] succinate 1-17 tablets by ity of XL 50 mg 24 00:00: mouth in [place] hr tablet 00 the Medical morning. Branch metoprolol 2021-11 Yes [id number] 25mg Take 0.5 [facility] succinate 1-17 tablets by ity of XL 50 mg 24 00:00: mouth in [place] hr tablet 00 the Medical morning. Branch metoprolol 2021-11 Yes [id number] 25mg Take 0.5 [facility] succinate 1-17 tablets by ity of XL 50 mg 24 00:00: mouth in [place] hr tablet 00 the Medical morning. Branch metoprolol 2021-11 Yes [id number] 25mg Take 0.5 [facility] succinate 1-17 tablets by ity of XL 50 mg 24 00:00: mouth in [place] hr tablet 00 the Medical morning. Branch famotidine 2021-11- Yes [id number] 20mg Take 1 U nivers 20 mg 1-17 11-13 tablet by ity of tablet 00:00: 05:59 mouth in [place] 00 :00 the [facility] morning Branch and 1 tablet in the evening. Do all this for 360 days. famotidine 2021-11- Yes [id number] 20mg Take 1 U nivers 20 mg 1-17 11-13 tablet by ity of tablet 00:00: 05:59 mouth in [place] 00 :00 the [facility] morning Branch and 1 tablet in the evening. Do all this for 360 days. famotidine 2021-11- Yes [id number] 20mg Take 1 U nivers 20 mg 1-17 11-13 tablet by ity of tablet 00:00: 05:59 mouth in [place] 00 :00 the [facility] morning Branch and 1 tablet in the evening. Do all this for 360 days. famotidine 2021-11- Yes [id number] 20mg Take 1 U nivers 20 mg 1-17 11-13 tablet by ity of tablet 00:00: 05:59 mouth in [place] 00 :[address] [facility] and 1 tablet in the evening. Do all this for 360 days. famotidine 2021-11- Yes [id number] 20mg Take 1 U nivers 20 mg 1-17 11-13 tablet by ity of tablet 00:00: 05:59 mouth in [place] 00 :[address] [facility] and 1 tablet in the evening. Do all this for 360 days. famotidine 2021-11- Yes [id number] 20mg Take 1 U nivers 20 mg 1-17 11-13 tablet by ity of tablet 00:00: 05:59 mouth in [place] 00 :[address] [facility] and 1 tablet in the evening. Do all this for 360 days. famotidine 2021-11- Yes [id number] 20mg Take 1 U nivers 20 mg 1-17 11-13 tablet by ity of tablet 00:00: 05:59 mouth in [place] 00 :[address] [facility] and 1 tablet in the evening. Do all this for 360 days. famotidine 2021-11- Yes [id number] 20mg Take 1 U nivers 20 mg 1-17 11-13 tablet by ity of tablet 00:00: 05:59 mouth in [place] 00 :00 the Medical morning Branch and 1 tablet in the evening. Do all this for 360 days. famotidine 2021-11- Yes [id number] 20mg Take 1 U nivers 20 mg 1-17 11-13 tablet by ity of tablet 00:00: 05:59 mouth in [place] 00 :00 the Medical morning Branch and 1 tablet in the evening. Do all this for 360 days. famotidine 2021-11- Yes [id number] 20mg Take 1 U nivers 20 mg 1-17 11-13 tablet by ity of tablet 00:00: 05:59 mouth in [place] 00 :00 the Medical morning Branch and 1 tablet in the evening. Do all this for 360 days. famotidine 2021-11- Yes [id number] 20mg Take 1 U nivers 20 mg 1-17 11-13 tablet by ity of tablet 00:00: 05:59 mouth in [place] 00 :00 the [facility] Branch and 1 tablet in the evening. Do all this for 360 days. famotidine 2021-11- Yes [id number] 20mg Take 1 U nivers 20 mg 1-17 11-13 tablet by ity of tablet 00:00: 05:59 mouth in [place] 00 :00 the [facility] and 1 tablet in the evening. Do all this for 360 days. famotidine 2021-11- Yes [id number] 20mg Take 1 U nivers 20 mg 1-17 11-13 tablet by ity of tablet 00:00: 05:59 mouth in [place] 00 :00 the [facility] and 1 tablet in the evening. Do all this for 360 days. famotidine 2021-11- Yes [id number] 20mg Take 1 U nivers 20 mg 1-17 11-13 tablet by ity of tablet 00:00: 05:59 mouth in [place] 00 :00 the [facility] morning Branch and 1 tablet in the evening. Do all this for 360 days. famotidine 2021-11- Yes [id number] 20mg Take 1 U nivers 20 mg 1-17 11-13 tablet by ity of tablet 00:00: 05:59 mouth in [place] 00 :00 the [facility] morning Branch and 1 tablet in the evening. Do all this for 360 days. famotidine 2021-11- Yes [id number] 20mg Take 1 U nivers 20 mg 1-17 11-13 tablet by ity of tablet 00:00: 05:59 mouth in [place] 00 :00 the [facility] morning Branch and 1 tablet in the evening. Do all this for 360 days. famotidine 2021-11- Yes [id number] 20mg Take 1 U nivers 20 mg 1-17 11-13 tablet by ity of tablet 00:00: 05:59 mouth in [place] 00 :00 the [facility] and 1 tablet in the evening. Do all this for 360 days. famotidine 2021-11- Yes [id number] 20mg Take 1 U nivers 20 mg 1-17 11-13 tablet by ity of tablet 00:00: 05:59 mouth in [place] 00 :[address] [facility] and 1 tablet in the evening. Do all this for 360 days. famotidine 2021-11- Yes [id number] 20mg Take 1 U nivers 20 mg 1-17 11-13 tablet by ity of tablet 00:00: 05:59 mouth in [place] 00 :[address] [facility] and 1 tablet in the evening. Do all this for 360 days. famotidine 2021-11- Yes [id number] 20mg Take 1 U nivers 20 mg 1-17 11-13 tablet by ity of tablet 00:00: 05:59 mouth in [place] 00 :[address] [facility] and 1 tablet in the evening. Do all this for 360 days. famotidine 2021-11- Yes [id number] 20mg Take 1 U nivers 20 mg 1-17 11-13 tablet by ity of tablet 00:00: 05:59 mouth in [place] 00 :00 the [facility] and 1 tablet in the evening. Do all this for 360 days. famotidine 2021-11- Yes [id number] 20mg Take 1 U nivers 20 mg 1-17 11-13 tablet by ity of tablet 00:00: 05:59 mouth in [place] 00 :[address] [facility] and 1 tablet in the evening. Do all this for 360 days. famotidine 2021-11- Yes [id number] 20mg Take 1 U nivers 20 mg 1-17 11-13 tablet by ity of tablet 00:00: 05:59 mouth in [place] 00 :00 the Medical morning Branch and 1 tablet in the evening. Do all this for 360 days. famotidine 2021-11- Yes [id number] 20mg Take 1 U nivers 20 mg 1-17 11-13 tablet by ity of tablet 00:00: 05:59 mouth in [place] 00 :00 the Medical morning Branch and 1 tablet in the evening. Do all this for 360 days. famotidine 2021-11- Yes [id number] 20mg Take 1 U nivers 20 mg 1-17 11-13 tablet by ity of tablet 00:00: 05:59 mouth in [place] 00 :00 the Medical morning Branch and 1 tablet in the evening. Do all this for 360 days. famotidine 2021-11- Yes [id number] 20mg Take 1 U nivers 20 mg 1-17 11-13 tablet by ity of tablet 00:00: 05:59 mouth in [place] 00 :00 the Medical morning Branch and 1 tablet in the evening. Do all this for 360 days. famotidine 2021-11- Yes [id number] 20mg Take 1 U nivers 20 mg 1-17 11-13 tablet by ity of tablet 00:00: 05:59 mouth in [place] 00 :00 the Medical morning Branch and 1 tablet in the evening. Do all this for 360 days. famotidine 2021-11- Yes [id number] 20mg Take 1 U nivers 20 mg 1-17 11-13 tablet by ity of tablet 00:00: 05:59 mouth in [place] 00 :00 the Medical morning Branch and 1 tablet in the evening. Do all this for 360 days. famotidine 2021-11- Yes [id number] 20mg Take 1 U nivers 20 mg 1-17 11-13 tablet by ity of tablet 00:00: 05:59 mouth in [place] 00 :00 the Medical morning Branch and 1 tablet in the evening. Do all this for 360 days. famotidine 2021-11- Yes [id number] 20mg Take 1 U nivers 20 mg 1-17 11-13 tablet by ity of tablet 00:00: 05:59 mouth in [place] 00 :00 the Medical morning Branch and 1 tablet in the evening. Do all this for 360 days. famotidine 2021-11- Yes [id number] 20mg Take 1 U nivers 20 mg 1-17 11-13 tablet by ity of tablet 00:00: 05:59 mouth in [place] 00 :00 the Medical morning Branch and 1 tablet in the evening. Do all this for 360 days. famotidine 2021-11- Yes [id number] 20mg Take 1 U nivers 20 mg 1-17 11-13 tablet by ity of tablet 00:00: 05:59 mouth in [place] 00 :00 the Medical morning Branch and 1 tablet in the evening. Do all this for 360 days. famotidine 2021-11- Yes [id number] 20mg Take 1 U nivers 20 mg 1-17 11-13 tablet by ity of tablet 00:00: 05:59 mouth in [place] 00 :00 the [facility] morning Branch and 1 tablet in the evening. Do all this for 360 days. famotidine 2021-11- Yes [id number] 20mg Take 1 U nivers 20 mg 1-17 11-13 tablet by ity of tablet 00:00: 05:59 mouth in [place] 00 :00 the [facility] and 1 tablet in the evening. Do all this for 360 days. famotidine 2021-11- Yes [id number] 20mg Take 1 U nivers 20 mg 1-17 11-13 tablet by ity of tablet 00:00: 05:59 mouth in [place] 00 :00 the [facility] and 1 tablet in the evening. Do all this for 360 days. famotidine 2021-11- Yes [id number] 20mg Take 1 U nivers 20 mg 1-17 11-13 tablet by ity of tablet 00:00: 05:59 mouth in [place] 00 :00 the [facility] and 1 tablet in the evening. Do all this for 360 days. famotidine 2021-11- Yes [id number] 20mg Take 1 U nivers 20 mg 1-17 11-13 tablet by ity of tablet 00:00: 05:59 mouth in [place] 00 :00 the [facility] and 1 tablet in the evening. Do all this for 360 days. famotidine 2021-11- Yes [id number] 20mg Take 1 U nivers 20 mg 1-17 11-13 tablet by ity of tablet 00:00: 05:59 mouth in [place] 00 :00 the [facility] and 1 tablet in the evening. Do all this for 360 days. famotidine 2021-11- Yes [id number] 20mg Take 1 U nivers 20 mg 1-17 11-13 tablet by ity of tablet 00:00: 05:59 mouth in [place] 00 :00 the Medical morning Branch and 1 tablet in the evening. Do all this for 360 days. famotidine 2021-11- Yes [id number] 20mg Take 1 U nivers 20 mg 1-17 11-13 tablet by ity of tablet 00:00: 05:59 mouth in [place] 00 :00 the Medical morning Branch and 1 tablet in the evening. Do all this for 360 days. famotidine 2021-11- Yes [id number] 20mg Take 1 U nivers 20 mg 1-17 11-13 tablet by ity of tablet 00:00: 05:59 mouth in [place] 00 :00 the Medical morning Branch and 1 tablet in the evening. Do all this for 360 days. famotidine 2021-11- Yes [id number] 20mg Take 1 U nivers 20 mg 1-17 11-13 tablet by ity of tablet 00:00: 05:59 mouth in [place] 00 :00 the Medical morning Branch and 1 tablet in the evening. Do all this for 360 days. famotidine 2021-11- Yes [id number] 20mg Take 1 U nivers 20 mg 1-17 11-13 tablet by ity of tablet 00:00: 05:59 mouth in [place] 00 :00 the Medical morning Branch and 1 tablet in the evening. Do all this for 360 days. famotidine 2021-11- Yes [id number] 20mg Take 1 U nivers 20 mg 1-17 11-13 tablet by ity of tablet 00:00: 05:59 mouth in [place] 00 :00 the Medical morning Branch and 1 tablet in the evening. Do all this for 360 days. famotidine 2021-11- Yes [id number] 20mg Take 1 U nivers 20 mg 1-17 11-13 tablet by ity of tablet 00:00: 05:59 mouth in [place] 00 :00 the Medical morning Branch and 1 tablet in the evening. Do all this for 360 days. famotidine 2021-11- Yes [id number] 20mg Take 1 U nivers 20 mg 1-17 11-13 tablet by ity of tablet 00:00: 05:59 mouth in [place] 00 :00 the Medical morning Branch and 1 tablet in the evening. Do all this for 360 days. famotidine 2021-11- Yes [id number] 20mg Take 1 U nivers 20 mg -17 11-13 tablet by ity of tablet 00:00: 05:59 mouth in [place] 00 :00 the Medical morning Branch and 1 tablet in the evening. Do all this for 360 days. famotidine 2021-11- Yes [id number] 20mg Take 1 U nivers 20 mg -17 11-13 tablet by ity of tablet 00:00: 05:59 mouth in [place] 00 :00 the Medical morning Branch and 1 tablet in the evening. Do all this for 360 days. metoprolol 2021-11- No [id number] 25mg Take 0.5 [facility] succinate -17 12-28 tablets by ity of XL 50 mg 24 00:00: 00:00 mouth in [place] hr tablet 00 :00 the Medical morning. Branch insulin NPH 2021-11 Yes [id number] 17U inject 17 [facility] and regular 1-07 Units ity of human 70-30 00:00: under the [place] 100 unit/mL 00 skin every Me dical (70-30) morning Branch injection and evening. albuterol 2021-11 Yes [id number] 2{puff} Inhale 2 [facility] 90 1-07 Puffs ity of mcg/actuati 00:00: every 6 [place] as on inhaler 00 (six) Medical hours as Branch needed for Wheezing, Shortness of Breath, Bronchospa sm or Chest tightness. allopurinoL 2021-11 Yes [id number] 100mg Take 1 [facility] 100 mg 1-07 tablet by [facility] of tablet 00:00: mouth in [place] 00 the Medical morning. Branch atorvastati 2021-11 Yes [id number] 80mg Take 1 [facility] n 80 mg 1-07 tablet by [facility] of tablet 00:00: mouth at [place] 00 bedtime. Medical Branch clopidogreL 2021-11 Yes [id number] 75mg Take 1 [facility] 75 mg 1-07 tablet by [facility] of tablet 00:00: mouth in [place] 00 the Medical morning. Branch empaglifloz 2021-11 Yes [id number] 10mg Take 1 [facility] in 1-07 tablet by ity of (JARDIANCE) 00:00: mouth [place] 10 mg 00 every Medical morning. Branch furosemide 2021-11 Yes [id number] 80mg Take 2 [facility] (LASIX) 40 1-07 02 tablets by ity of mg tablet 00:00: mouth [place] 00 every Medical morning Branch and evening. isosorbide 2021-11 Yes [id number] 60mg Take 2 [facility] n[facility] mononitrate 1-07 tablets by it y of 30 mg 24 hr 00:00: mouth in [place] tablet 00 the Medical morning. Branch KCL 20 mEq 2021-11 Yes [id number] 20meq Take 1 [facility] tablet 1-07 tablet by ity of 00:00: mouth in [place] 00 the Medical morning. Branch levothyroxi 2021-11 Yes [id number] 150ug Take 1 [facility] ne 150 mcg 1-07 tablet by ity of tablet 00:00: mouth [place] 00 every Medical morning. Branch metoprolol 2021-11 Yes [id number] 50mg Take 1 [facility] n[facility] succinate 1-07 tablet by ity o f XL 50 mg 24 00:00: mouth in [place] hr tablet 00 the Medical morning. Branch pantoprazol 2021-11 Yes [id number] 40mg Take 1 [facility] e 40 mg EC -07 tablet by ity of tablet 00:00: mouth in [place] 00 the Medical morning Branch and 1 tablet in the evening. insulin NPH 2021-11 Yes [id number] 17U inject 17 [facility] and regular 1-07 Units ity of human 70-30 00:00: under the [place] 100 unit/mL 00 skin every Me dical (70-30) morning Branch injection and evening. albuterol 2021-11 Yes [id number] 2{puff} Inhale 2 [facility] 90 1-07 Puffs ity of mcg/actuati 00:00: every 6 [place] as on inhaler 00 (six) Medical hours as Branch needed for Wheezing, Shortness of Breath, Bronchospa sm or Chest tightness. allopurinoL 2021-11 Yes [id number] 100mg Take 1 [facility] 100 mg 1-07 tablet by it[facility] of tablet 00:00: mouth in [place] 00 the Medical morning. Branch atorvastati 2021-11 Yes [id number] 80mg Take 1 [facility] n 80 mg 1-07 tablet by [facility] of tablet 00:00: mouth at [place] 00 bedtime. Medical Branch clopidogreL 2021-11 Yes [id number] 75mg Take 1 [facility] 75 mg 1-07 tablet by it[facility] of tablet 00:00: mouth in [place] 00 the Medical morning. Branch empaglifloz 2021-11 Yes [id number] 10mg Take 1 [facility] in 1-07 tablet by it[facility] of (JARDIANCE) 00:00: mouth [place] 10 mg 00 every Medical morning. Branch furosemide 2021-11 Yes [id number] 80mg Take 2 [facility] (LASIX) 40 1-07 02 tablets by ity of mg tablet 00:00: mouth [place] 00 every Medical morning Branch and evening. isosorbide 2021-11 Yes [id number] 60mg Take 2 [facility] n[facility] mononitrate 1-07 tablets by it y of 30 mg 24 hr 00:00: mouth in [place] tablet 00 the Medical morning. Branch KCL 20 mEq 2021-11 Yes [id number] 20meq Take 1 [facility] tablet 1-07 tablet by it[facility] of 00:00: mouth in [place] 00 the Medical morning. Branch levothyroxi 2021-11 Yes [id number] 150ug Take 1 [facility] ne 150 mcg 1-07 tablet by it[facility] of tablet 00:00: mouth [place] 00 every Medical morning. Branch metoprolol 2021-11 Yes [id number] 50mg Take 1 [facility] n[facility] succinate 1-07 tablet by ity o f XL 50 mg 24 00:00: mouth in [place] hr tablet 00 the Medical morning. Branch pantoprazol 2021-11 Yes [id number] 40mg Take 1 [facility] e 40 mg EC 1-07 tablet by ity of tablet 00:00: mouth in [place] 00 the Medical morning Branch and 1 tablet in the evening. insulin NPH 2021-11 Yes [id number] 17U inject 17 [facility] and regular 1-07 Units ity of human 70-30 00:00: under the [place] 100 unit/mL 00 skin every Me dical (70-30) morning Branch injection and evening. albuterol 2021-11 Yes [id number] 2{puff} Inhale 2 [facility] 90 1-07 Puffs ity of mcg/actuati 00:00: every 6 [place] as on inhaler 00 (six) Medical hours as Branch needed for Wheezing, Shortness of Breath, Bronchospa sm or Chest tightness. allopurinoL 2021-11 Yes [id number] 100mg Take 1 [facility] 100 mg 1-07 tablet by [facility] of tablet 00:00: mouth in [place] 00 the Medical morning. Branch atorvastati 2021-11 Yes [id number] 80mg Take 1 [facility] n 80 mg 1-07 tablet by ity of tablet 00:00: mouth at [place] [address] bedtime. Medical Branch clopidogreL 2021-11 Yes [id number] 75mg Take 1 [facility] 75 mg 1-07 tablet by ity of tablet 00:00: mouth in [place] 00 the Medical morning. Branch empaglifloz 2021-11 Yes [id number] 10mg Take 1 [facility] in 1-07 tablet by ity of (JARDIANCE) 00:00: mouth [place] 10 mg 00 every Medical morning. Branch furosemide 2021-11 Yes [id number] 80mg Take 2 [facility] (LASIX) 40 1-07 02 tablets by ity of mg tablet 00:00: mouth [place] 00 every Medical morning Branch and evening. isosorbide 2021-11 Yes [id number] 60mg Take 2 [facility] n[facility] mononitrate 1-07 tablets by it y of 30 mg 24 hr 00:00: mouth in [place] tablet 00 the Medical morning. Branch KCL 20 mEq 2021-11 Yes [id number] 20meq Take 1 [facility] tablet 1-07 tablet by ity of 00:00: mouth in [place] 00 the Medical morning. Branch levothyroxi 2021-11 Yes [id number] 150ug Take 1 [facility] ne 150 mcg 1-07 tablet by ity of tablet 00:00: mouth [place] 00 every Medical morning. Branch metoprolol 2021-11 Yes [id number] 50mg Take 1 [facility] succinate 1-07 tablet by ity o f XL 50 mg 24 00:00: mouth in [place] hr tablet 00 the Medical morning. Branch pantoprazol 2021-11 Yes [id number] 40mg Take 1 [facility] e 40 mg EC 1-07 tablet by ity of tablet 00:00: mouth in [place] 00 the Medical morning Branch and 1 tablet in the evening. insulin NPH 2021-11 Yes [id number] 17U inject 17 [facility] and regular 1-07 Units ity of human 70-30 00:00: under the [place] 100 unit/mL 00 skin every Me dical (70-30) morning Branch injection and evening. albuterol 2021-11 Yes [id number] 2{puff} Inhale 2 [facility] 90 1-07 Puffs ity of mcg/actuati 00:00: every 6 [place] as on inhaler 00 (six) Medical hours as Branch needed for Wheezing, Shortness of Breath, Bronchospa sm or Chest tightness. allopurinoL 2021-11 Yes [id number] 100mg Take 1 [facility] 100 mg 1-07 tablet by [facility] of tablet 00:00: mouth in [place] 00 the Medical morning. Branch atorvastati 2021-11 Yes [id number] 80mg Take 1 [facility] n 80 mg 1-07 tablet by ity of tablet 00:00: mouth at [place] 00 bedtime. Medical Branch clopidogreL 2021-11 Yes [id number] 75mg Take 1 [facility] 75 mg 1-07 tablet by ity of tablet 00:00: mouth in [place] 00 the Medical morning. Branch empaglifloz 2021-11 Yes [id number] 10mg Take 1 [facility] in -07 tablet by ity of (JARDIANCE) 00:00: mouth [place] 10 mg 00 every Medical morning. Branch furosemide 2021-11 Yes [id number] 80mg Take 2 [facility] (LASIX) 40 1-07 02 tablets by ity of mg tablet 00:00: mouth [place] 00 every Medical morning Branch and evening. isosorbide 2021-11 Yes [id number] 60mg Take 2 [facility] n[facility] mononitrate 1-07 tablets by it y of 30 mg 24 hr 00:00: mouth in [place] tablet 00 the Medical morning. Branch KCL 20 mEq 2021-11 Yes [id number] 20meq Take 1 [facility] tablet 1-07 tablet by ity of 00:00: mouth in [place] 00 the Medical morning. Branch levothyroxi 2021-11 Yes [id number] 150ug Take 1 [facility] ne 150 mcg 1-07 tablet by ity of tablet 00:00: mouth [place] 00 every Medical morning. Branch metoprolol 2021-11 Yes [id number] 50mg Take 1 [facility] n[facility] succinate 1-07 tablet by ity o f XL 50 mg 24 00:00: mouth in [place] hr tablet 00 the Medical morning. Branch pantoprazol 2021-11 Yes [id number] 40mg Take 1 [facility] e 40 mg EC 1-07 tablet by ity of tablet 00:00: mouth in [place] 00 the Medical morning Branch and 1 tablet in the evening. insulin NPH 2021-11 Yes [id number] 17U inject 17 [facility] and regular 1-07 Units ity of human 70-30 00:00: under the [place] 100 unit/mL 00 skin every Me dical (70-30) morning Branch injection and evening. albuterol 2021-11 Yes [id number] 2{puff} Inhale 2 [facility] 90 1-07 Puffs ity of mcg/actuati 00:00: every 6 [place] as on inhaler 00 (six) Medical hours as Branch needed for Wheezing, Shortness of Breath, Bronchospa sm or Chest tightness. allopurinoL 2021-11 Yes [id number] 100mg Take 1 [facility] 100 mg 1-07 tablet by ity of tablet 00:00: mouth in [place] 00 the Medical morning. Branch atorvastati 2021-11 Yes [id number] 80mg Take 1 [facility] n 80 mg 1-07 tablet by ity of tablet 00:00: mouth at [place] [address] bedtime. Medical Branch clopidogreL 2021-11 Yes [id number] 75mg Take 1 [facility] 75 mg 1-07 tablet by ity of tablet 00:00: mouth in [place] 00 the Medical morning. Branch empaglifloz 2021-11 Yes [id number] 10mg Take 1 [facility] in 1-07 tablet by ity of (JARDIANCE) 00:00: mouth [place] 10 mg 00 every Medical morning. Branch furosemide 2021-11 Yes [id number] 80mg Take 2 [facility] (LASIX) 40 -07 02 tablets by ity of mg tablet 00:00: mouth [place] 00 every Medical morning Branch and evening. isosorbide 2021-11 Yes [id number] 60mg Take 2 [facility] n[facility] mononitrate 1-07 tablets by it y of 30 mg 24 hr 00:00: mouth in [place] tablet 00 the Medical morning. Branch KCL 20 mEq 2021-11 Yes [id number] 20meq Take 1 [facility] tablet 1-07 tablet by ity of 00:00: mouth in [place] 00 the Medical morning. Branch levothyroxi 2021-11 Yes [id number] 150ug Take 1 [facility] ne 150 mcg 1-07 tablet by ity of tablet 00:00: mouth [place] 00 every Medical morning. Branch metoprolol 2021-11 Yes [id number] 50mg Take 1 [facility] nivers succinate 1-07 tablet by ity o f XL 50 mg 24 00:00: mouth in [place] hr tablet 00 the Medical morning. Branch pantoprazol 2021-11 Yes [id number] 40mg Take 1 [facility] e 40 mg EC 1-07 tablet by ity of tablet 00:00: mouth in [place] 00 the Medical morning Branch and 1 tablet in the evening. insulin NPH 2021-11 Yes [id number] 17U inject 17 [facility] and regular 1-07 Units ity of human 70-30 00:00: under the [place] 100 unit/mL 00 skin every Me dical (70-30) morning Branch injection and evening. albuterol 2021-11 Yes [id number] 2{puff} Inhale 2 [facility] 90 1-07 Puffs ity of mcg/actuati 00:00: every 6 [place] as on inhaler 00 (six) Medical hours as Branch needed for Wheezing, Shortness of Breath, Bronchospa sm or Chest tightness. allopurinoL 2021-11 Yes [id number] 100mg Take 1 [facility] 100 mg 1-07 tablet by ity of tablet 00:00: mouth in [place] 00 the Medical morning. Branch atorvastati 2021-11 Yes [id number] 80mg Take 1 [facility] n 80 mg 1-07 tablet by ity of tablet 00:00: mouth at [place] 00 bedtime. Medical Branch clopidogreL 2021-11 Yes [id number] 75mg Take 1 [facility] 75 mg 1-07 tablet by ity of tablet 00:00: mouth in [place] 00 the Medical morning. Branch empaglifloz 2021-11 Yes [id number] 10mg Take 1 [facility] in 1-07 tablet by ity of (JARDIANCE) 00:00: mouth [place] 10 mg 00 every Medical morning. Branch KCL 20 mEq 2021-11 Yes [id number] 20meq Take 1 [facility] tablet 1-07 tablet by ity of 00:00: mouth in [place] 00 the Medical morning. Branch levothyroxi 2021-11 Yes [id number] 150ug Take 1 [facility] ne 150 mcg 1-07 tablet by ity of tablet 00:00: mouth [place] 00 every Medical morning. Branch insulin NPH 2021-11 Yes [id number] 17U inject 17 [facility] and regular 1-07 Units ity of human 70-30 00:00: under the [place] 100 unit/mL 00 skin every Me dical (70-30) morning Branch injection and evening. albuterol 2021-11 Yes [id number] 2{puff} Inhale 2 [facility] 90 1-07 Puffs ity of mcg/actuati 00:00: every 6 [place] as on inhaler 00 (six) Medical hours as Branch needed for Wheezing, Shortness of Breath, Bronchospa sm or Chest tightness. allopurinoL 2021-11 Yes [id number] 100mg Take 1 [facility] 100 mg 1-07 tablet by ity of tablet 00:00: mouth in [place] 00 the Medical morning. Branch atorvastati 2021-11 Yes [id number] 80mg Take 1 [facility] n 80 mg 1-07 tablet by ity of tablet 00:00: mouth at [place] [address] bedtime. Medical Branch clopidogreL 2021-11 Yes [id number] 75mg Take 1 [facility] 75 mg 1-07 tablet by ity of tablet 00:00: mouth in [place] 00 the Medical morning. Branch empaglifloz 2021-11 Yes [id number] 10mg Take 1 [facility] in 1-07 tablet by ity of (JARDIANCE) 00:00: mouth [place] 10 mg 00 every Medical morning. Branch KCL 20 mEq 2021-11 Yes [id number] 20meq Take 1 [facility] tablet 1-07 tablet by ity of 00:00: mouth in [place] 00 the Medical morning. Branch levothyroxi 2021-11 Yes [id number] 150ug Take 1 [facility] ne 150 mcg 1-07 tablet by ity of tablet 00:00: mouth [place] 00 every Medical morning. Branch insulin NPH 2021-11 Yes [id number] 17U inject 17 [facility] and regular 1-07 Units ity of human 70-30 00:00: under the [place] 100 unit/mL 00 skin every Me dical (70-30) morning Branch injection and evening. albuterol 2021-11 Yes [id number] 2{puff} Inhale 2 [facility] 90 1-07 Puffs ity of mcg/actuati 00:00: every 6 [place] as on inhaler 00 (six) Medical hours as Branch needed for Wheezing, Shortness of Breath, Bronchospa sm or Chest tightness. allopurinoL 2021-11 Yes [id number] 100mg Take 1 [facility] 100 mg 1-07 tablet by ity of tablet 00:00: mouth in [place] 00 the Medical morning. Branch atorvastati 2021-11 Yes [id number] 80mg Take 1 [facility] n 80 mg 1-07 tablet by ity of tablet 00:00: mouth at [place] [address] bedtime. Medical Branch clopidogreL 2021-11 Yes [id number] 75mg Take 1 [facility] 75 mg 1-07 tablet by ity of tablet 00:00: mouth in [place] 00 the Medical morning. Branch KCL 20 mEq 2021-11 Yes [id number] 20meq Take 1 [facility] tablet 1-07 tablet by ity of 00:00: mouth in [place] 00 the Medical morning. Branch levothyroxi 2021-11 Yes [id number] 150ug Take 1 [facility] ne 150 mcg 1-07 tablet by ity of tablet 00:00: mouth [place] 00 every Medical morning. Branch insulin NPH 2021-11 Yes [id number] 17U inject 17 [facility] and regular 1-07 Units ity of human 70-30 00:00: under the [place] 100 unit/mL 00 skin every Me dical (70-30) morning Branch injection and evening. albuterol 2021-11 Yes [id number] 2{puff} Inhale 2 [facility] 90 1-07 Puffs ity of mcg/actuati 00:00: every 6 [place] as on inhaler 00 (six) Medical hours as Branch needed for Wheezing, Shortness of Breath, Bronchospa sm or Chest tightness. allopurinoL 2021-11 Yes [id number] 100mg Take 1 [facility] 100 mg 1-07 tablet by ity of tablet 00:00: mouth in [place] the Medical morning. Branch atorvastati 2021-11 Yes [id number] 80mg Take 1 [facility] n 80 mg 1-07 tablet by ity of tablet 00:00: mouth at [place] [address] bedtime. Medical Branch clopidogreL 2021-11 Yes [id number] 75mg Take 1 [facility] 75 mg 1-07 tablet by ity of tablet 00:00: mouth in [place] 00 the Medical morning. Branch KCL 20 mEq 2021-11 Yes [id number] 20meq Take 1 [facility] tablet 1-07 tablet by ity of 00:00: mouth in [place] 00 the Medical morning. Branch levothyroxi 2021-11 Yes [id number] 150ug Take 1 [facility] ne 150 mcg 1-07 tablet by ity of tablet 00:00: mouth [place] 00 every Medical morning. Branch insulin NPH 2021-11 Yes [id number] 17U inject 17 [facility] and regular 1-07 Units ity of human 70-30 00:00: under the [place] 100 unit/mL 00 skin every Me dical (70-30) morning Branch injection and evening. albuterol 2021-11 Yes [id number] 2{puff} Inhale 2 [facility] 90 1-07 Puffs ity of mcg/actuati 00:00: every 6 [place] as on inhaler 00 (six) Medical hours as Branch needed for Wheezing, Shortness of Breath, Bronchospa sm or Chest tightness. allopurinoL 2021-11 Yes [id number] 100mg Take 1 [facility] 100 mg 1-07 tablet by ity of tablet 00:00: mouth in [place] 00 the Medical morning. Branch atorvastati 2021-11 Yes [id number] 80mg Take 1 [facility] n 80 mg 1-07 tablet by ity of tablet 00:00: mouth at [place] 00 bedtime. Medical Branch clopidogreL 2021-11 Yes [id number] 75mg Take 1 [facility] 75 mg 1-07 tablet by ity of tablet 00:00: mouth in [place] 00 the Medical morning. Branch KCL 20 mEq 2021-11 Yes [id number] 20meq Take 1 [facility] tablet 1-07 tablet by ity of 00:00: mouth in [place] 00 the Medical morning. Branch levothyroxi 2021-11 Yes [id number] 150ug Take 1 [facility] ne 150 mcg 1-07 tablet by ity of tablet 00:00: mouth [place] 00 every Medical morning. Branch insulin NPH 2021-11 Yes [id number] 17U inject 17 [facility] and regular 1-07 Units ity of human 70-30 00:00: under the [place] 100 unit/mL 00 skin every Me dical (70-30) morning Branch injection and evening. albuterol 2021-11 Yes [id number] 2{puff} Inhale 2 [facility] 90 1-07 Puffs ity of mcg/actuati 00:00: every 6 [place] as on inhaler 00 (six) Medical hours as Branch needed for Wheezing, Shortness of Breath, Bronchospa sm or Chest tightness. allopurinoL 2021-11 Yes [id number] 100mg Take 1 [facility] 100 mg 1-07 tablet by ity of tablet 00:00: mouth in [place] 00 the Medical morning. Branch atorvastati 2021-11 Yes [id number] 80mg Take 1 [facility] n 80 mg 1-07 tablet by ity of tablet 00:00: mouth at [place] [address] bedtime. Medical Branch clopidogreL 2021-11 Yes [id number] 75mg Take 1 [facility] 75 mg 1-07 tablet by ity of tablet 00:00: mouth in [place] 00 the Medical morning. Branch KCL 20 mEq 2021-11 Yes [id number] 20meq Take 1 [facility] tablet 1-07 tablet by ity of 00:00: mouth in [place] 00 the Medical morning. Branch levothyroxi 2021-11 Yes [id number] 150ug Take 1 [facility] ne 150 mcg 1-07 tablet by ity of tablet 00:00: mouth [place] 00 every Medical morning. Branch insulin NPH 2021-11 Yes [id number] 17U inject 17 [facility] and regular 1-07 Units ity of human 70-30 00:00: under the [place] 100 unit/mL 00 skin every Me dical (70-30) morning Branch injection and evening. albuterol 2021-11 Yes [id number] 2{puff} Inhale 2 [facility] 90 1-07 Puffs ity of mcg/actuati 00:00: every 6 [place] as on inhaler 00 (six) Medical hours as Branch needed for Wheezing, Shortness of Breath, Bronchospa sm or Chest tightness. allopurinoL 2021-11 Yes [id number] 100mg Take 1 [facility] 100 mg 1-07 tablet by ity of tablet 00:00: mouth in [place] the Medical morning. Branch atorvastati 2021-11 Yes [id number] 80mg Take 1 [facility] n 80 mg 1-07 tablet by ity of tablet 00:00: mouth at [place] [address] bedtime. Medical Branch clopidogreL 2021-11 Yes [id number] 75mg Take 1 [facility] 75 mg 1-07 tablet by ity of tablet 00:00: mouth in [place] 00 the Medical morning. Branch KCL 20 mEq 2021-11 Yes [id number] 20meq Take 1 [facility] tablet 1-07 tablet by ity of 00:00: mouth in [place] 00 the Medical morning. Branch levothyroxi 2021-11 Yes [id number] 150ug Take 1 [facility] ne 150 mcg 1-07 tablet by ity of tablet 00:00: mouth [place] 00 every Medical morning. Branch insulin NPH 2021-11 Yes [id number] 17U inject 17 [facility] and regular 1-07 Units ity of human 70-30 00:00: under the [place] 100 unit/mL 00 skin every Me dical (70-30) morning Branch injection and evening. albuterol 2021-11 Yes [id number] 2{puff} Inhale 2 [facility] 90 1-07 Puffs ity of mcg/actuati 00:00: every 6 [place] as on inhaler 00 (six) Medical hours as Branch needed for Wheezing, Shortness of Breath, Bronchospa sm or Chest tightness. allopurinoL 2021-11 Yes [id number] 100mg Take 1 [facility] 100 mg 1-07 tablet by ity of tablet 00:00: mouth in [place] 00 the Medical morning. Branch atorvastati 2021-11 Yes [id number] 80mg Take 1 [facility] n 80 mg 1-07 tablet by ity of tablet 00:00: mouth at [place] [address] bedtime. Medical Branch clopidogreL 2021-11 Yes [id number] 75mg Take 1 [facility] 75 mg 1-07 tablet by ity of tablet 00:00: mouth in [place] 00 the Medical morning. Branch KCL 20 mEq 2021-11 Yes [id number] 20meq Take 1 [facility] tablet 1-07 tablet by ity of 00:00: mouth in [place] 00 the Medical morning. Branch levothyroxi 2021-11 Yes [id number] 150ug Take 1 [facility] ne 150 mcg 1-07 tablet by ity of tablet 00:00: mouth [place] 00 every Medical morning. Branch insulin NPH 2021-11 Yes [id number] 17U inject 17 [facility] and regular 1-07 Units ity of human 70-30 00:00: under the [place] 100 unit/mL 00 skin every Me dical (70-30) morning Branch injection and evening. albuterol 2021-11 Yes [id number] 2{puff} Inhale 2 [facility] 90 1-07 Puffs ity of mcg/actuati 00:00: every 6 [place] as on inhaler 00 (six) Medical hours as Branch needed for Wheezing, Shortness of Breath, Bronchospa sm or Chest tightness. allopurinoL 2021-11 Yes [id number] 100mg Take 1 [facility] 100 mg 1-07 tablet by ity of tablet 00:00: mouth in [place] 00 the Medical morning. Branch atorvastati 2021-11 Yes [id number] 80mg Take 1 [facility] n 80 mg 1-07 tablet by ity of tablet 00:00: mouth at [place] [address] bedtime. Medical Branch clopidogreL 2021-11 Yes [id number] 75mg Take 1 [facility] 75 mg 1-07 tablet by ity of tablet 00:00: mouth in [place] 00 the Medical morning. Branch KCL 20 mEq 2021-11 Yes [id number] 20meq Take 1 [facility] tablet 1-07 tablet by ity of 00:00: mouth in [place] 00 the Medical morning. Branch levothyroxi 2021-11 Yes [id number] 150ug Take 1 [facility] ne 150 mcg 1-07 tablet by ity of tablet 00:00: mouth [place] 00 every Medical morning. Branch insulin NPH 2021-11 Yes [id number] 17U inject 17 [facility] and regular 1-07 Units ity of human 70-30 00:00: under the [place] 100 unit/mL 00 skin every Me dical (70-30) morning Branch injection and evening. albuterol 2021-11 Yes [id number] 2{puff} Inhale 2 [facility] 90 1-07 Puffs ity of mcg/actuati 00:00: every 6 [place] as on inhaler 00 (six) Medical hours as Branch needed for Wheezing, Shortness of Breath, Bronchospa sm or Chest tightness. allopurinoL 2021-11 Yes [id number] 100mg Take 1 [facility] 100 mg 1-07 tablet by ity of tablet 00:00: mouth in [place] the Medical morning. Branch atorvastati 2021-11 Yes [id number] 80mg Take 1 [facility] n 80 mg 1-07 tablet by ity of tablet 00:00: mouth at [place] [address] bedtime. Medical Branch clopidogreL 2021-11 Yes [id number] 75mg Take 1 [facility] 75 mg 1-07 tablet by ity of tablet 00:00: mouth in [place] 00 the Medical morning. Branch KCL 20 mEq 2021-11 Yes [id number] 20meq Take 1 [facility] tablet 1-07 tablet by ity of 00:00: mouth in [place] 00 the Medical morning. Branch levothyroxi 2021-11 Yes [id number] 150ug Take 1 [facility] ne 150 mcg 1-07 tablet by ity of tablet 00:00: mouth [place] 00 every Medical morning. Branch insulin NPH 2021-11 Yes [id number] 17U inject 17 [facility] and regular 1-07 Units ity of human 70-30 00:00: under the [place] 100 unit/mL 00 skin every Me dical (70-30) morning Branch injection and evening. albuterol 2021-11 Yes [id number] 2{puff} Inhale 2 [facility] 90 1-07 Puffs ity of mcg/actuati 00:00: every 6 [place] as on inhaler 00 (six) Medical hours as Branch needed for Wheezing, Shortness of Breath, Bronchospa sm or Chest tightness. allopurinoL 2021-11 Yes [id number] 100mg Take 1 [facility] 100 mg 1-07 tablet by ity of tablet 00:00: mouth in [place] 00 the Medical morning. Branch atorvastati 2021-11 Yes [id number] 80mg Take 1 [facility] n 80 mg 1-07 tablet by ity of tablet 00:00: mouth at [place] [address] bedtime. Medical Branch clopidogreL 2021-11 Yes [id number] 75mg Take 1 [facility] 75 mg 1-07 tablet by ity of tablet 00:00: mouth in [place] 00 the Medical morning. Branch KCL 20 mEq 2021-11 Yes [id number] 20meq Take 1 [facility] tablet 1-07 tablet by ity of 00:00: mouth in [place] 00 the Medical morning. Branch levothyroxi 2021-11 Yes [id number] 150ug Take 1 [facility] ne 150 mcg 1-07 tablet by ity of tablet 00:00: mouth [place] 00 every Medical morning. Branch insulin NPH 2021-11 Yes [id number] 17U inject 17 [facility] and regular 1-07 Units ity of human 70-30 00:00: under the [place] 100 unit/mL 00 skin every Me dical (70-30) morning Branch injection and evening. albuterol 2021-11 Yes [id number] 2{puff} Inhale 2 [facility] 90 1-07 Puffs ity of mcg/actuati 00:00: every 6 [place] as on inhaler 00 (six) Medical hours as Branch needed for Wheezing, Shortness of Breath, Bronchospa sm or Chest tightness. allopurinoL 2021-11 Yes [id number] 100mg Take 1 [facility] 100 mg 1-07 tablet by ity of tablet 00:00: mouth in [place] 00 the Medical morning. Branch atorvastati 2021-11 Yes [id number] 80mg Take 1 [facility] n 80 mg 1-07 tablet by ity of tablet 00:00: mouth at [place] [address] bedtime. Medical Branch clopidogreL 2021-11 Yes [id number] 75mg Take 1 [facility] 75 mg 1-07 tablet by ity of tablet 00:00: mouth in [place] 00 the Medical morning. Branch KCL 20 mEq 2021-11 Yes [id number] 20meq Take 1 [facility] tablet 1-07 tablet by ity of 00:00: mouth in [place] 00 the Medical morning. Branch levothyroxi 2021-11 Yes [id number] 150ug Take 1 [facility] ne 150 mcg 1-07 tablet by [facility] of tablet 00:00: mouth [place] 00 every Medical morning. Branch insulin NPH 2021-11 Yes [id number] 17U inject 17 [facility] and regular 1-07 Units it[facility] of human 70-30 00:00: under the [place] 100 unit/mL 00 skin every Me dical (70-30) morning Branch injection and evening. albuterol 2021-11 Yes [id number] 2{puff} Inhale 2 [facility] 90 1-07 Puffs [facility] of mcg/actuati 00:00: every 6 [place] as on inhaler 00 (six) Medical hours as Branch needed for Wheezing, Shortness of Breath, Bronchospa sm or Chest tightness. allopurinoL 2021-11 Yes [id number] 100mg Take 1 [facility] 100 mg 1-07 tablet by [facility] of tablet 00:00: mouth in [place] the Medical morning. Branch atorvastati 2021-11 Yes [id number] 80mg Take 1 [facility] n 80 mg 1-07 tablet by [facility] of tablet 00:00: mouth at [place] [address] bedtime. Medical Branch clopidogreL 2021-11 Yes [id number] 75mg Take 1 [facility] 75 mg 1-07 tablet by [facility] of tablet 00:00: mouth in [place] 00 the Medical morning. Branch KCL 20 mEq 2021-11 Yes [id number] 20meq Take 1 [facility] tablet 1-07 tablet by [facility] of 00:00: mouth in [place] 00 the Medical morning. Branch levothyroxi 2021-11 Yes [id number] 150ug Take 1 [facility] ne 150 mcg 1-07 tablet by [facility] of tablet 00:00: mouth [place] 00 every Medical morning. Branch insulin NPH 2021-11 Yes [id number] 17U inject 17 [facility] and regular 1-07 Units [facility] of human 70-30 00:00: under the [place] 100 unit/mL 00 skin every Me dical (70-30) morning Branch injection and evening. albuterol 2021-11 Yes [id number] 2{puff} Inhale 2 [facility] 90 1-07 Puffs [facility] of mcg/actuati 00:00: every 6 [place] as on inhaler 00 (six) Medical hours as Branch needed for Wheezing, Shortness of Breath, Bronchospa sm or Chest tightness. allopurinoL 2021-11 Yes [id number] 100mg Take 1 [facility] 100 mg 1-07 tablet by [facility] of tablet 00:00: mouth in [place] 00 the Medical morning. Branch atorvastati 2021-11 Yes [id number] 80mg Take 1 [facility] n 80 mg 1-07 tablet by [facility] of tablet 00:00: mouth at [place] [address] bedtime. Medical Branch clopidogreL 2021-11 Yes [id number] 75mg Take 1 [facility] 75 mg 1-07 tablet by [facility] of tablet 00:00: mouth in [place] 00 the Medical morning. Branch KCL 20 mEq 2021-11 Yes [id number] 20meq Take 1 [facility] tablet 1-07 tablet by [facility] of 00:00: mouth in [place] 00 the Medical morning. Branch levothyroxi 2021-11 Yes [id number] 150ug Take 1 [facility] ne 150 mcg 1-07 tablet by [facility] of tablet 00:00: mouth [place] 00 every Medical morning. Branch insulin NPH 2021-11 Yes [id number] 17U inject 17 [facility] and regular 1-07 Units [facility] of human 70-30 00:00: under the [place] 100 unit/mL 00 skin every Me dical (70-30) morning Branch injection and evening. albuterol 2021-11 Yes [id number] 2{puff} Inhale 2 [facility] 90 1-07 Puffs [facility] of mcg/actuati 00:00: every 6 [place] as on inhaler 00 (six) Medical hours as Branch needed for Wheezing, Shortness of Breath, Bronchospa sm or Chest tightness. allopurinoL 2021-11 Yes [id number] 100mg Take 1 [facility] 100 mg 1-07 tablet by [facility] of tablet 00:00: mouth in [place] 00 the Medical morning. Branch atorvastati 2021-11 Yes [id number] 80mg Take 1 [facility] n 80 mg 1-07 tablet by [facility] of tablet 00:00: mouth at [place] [address] bedtime. Medical Branch clopidogreL 2021-11 Yes [id number] 75mg Take 1 [facility] 75 mg 1-07 tablet by [facility] of tablet 00:00: mouth in [place] 00 the Medical morning. Branch KCL 20 mEq 2021-11 Yes [id number] 20meq Take 1 [facility] tablet 1-07 tablet by [facility] of 00:00: mouth in [place] 00 the Medical morning. Branch levothyroxi 2021-11 Yes [id number] 150ug Take 1 [facility] ne 150 mcg 1-07 tablet by [facility] of tablet 00:00: mouth [place] 00 every Medical morning. Branch insulin NPH 2021-11 Yes [id number] 17U inject 17 [facility] and regular 1-07 Units [facility] of human 70-30 00:00: under the [place] 100 unit/mL 00 skin every Me dical (70-30) morning Branch injection and evening. albuterol 2021-11 Yes [id number] 2{puff} Inhale 2 [facility] 90 1-07 Puffs [facility] of mcg/actuati 00:00: every 6 [place] as on inhaler 00 (six) Medical hours as Branch needed for Wheezing, Shortness of Breath, Bronchospa sm or Chest tightness. allopurinoL 2021-11 Yes [id number] 100mg Take 1 [facility] 100 mg 1-07 tablet by [facility] of tablet 00:00: mouth in [place] 00 the Medical morning. Branch atorvastati 2021-11 Yes [id number] 80mg Take 1 [facility] n 80 mg 1-07 tablet by [facility] of tablet 00:00: mouth at [place] [address] bedtime. Medical Branch clopidogreL 2021-11 Yes [id number] 75mg Take 1 [facility] 75 mg 1-07 tablet by [facility] of tablet 00:00: mouth in [place] 00 the Medical morning. Branch KCL 20 mEq 2021-11 Yes [id number] 20meq Take 1 [facility] tablet 1-07 tablet by it[facility] of 00:00: mouth in [place] 00 the Medical morning. Branch levothyroxi 2021-11 Yes [id number] 150ug Take 1 [facility] ne 150 mcg 1-07 tablet by [facility] of tablet 00:00: mouth [place] 00 every Medical morning. Branch insulin NPH 2021-11 Yes [id number] 17U inject 17 [facility] and regular 1-07 Units ity of human 70-30 00:00: under the [place] 100 unit/mL 00 skin every Me dical (70-30) morning Branch injection and evening. albuterol 2021-11 Yes [id number] 2{puff} Inhale 2 [facility] 90 1-07 Puffs ity of mcg/actuati 00:00: every 6 [place] as on inhaler 00 (six) Medical hours as Branch needed for Wheezing, Shortness of Breath, Bronchospa sm or Chest tightness. allopurinoL 2021-11 Yes [id number] 100mg Take 1 [facility] 100 mg 1-07 tablet by [facility] of tablet 00:00: mouth in [place] 00 the Medical morning. Branch atorvastati 2021-11 Yes [id number] 80mg Take 1 [facility] n 80 mg 1-07 tablet by [facility] of tablet 00:00: mouth at [place] [address] bedtime. Medical Branch clopidogreL 2021-11 Yes [id number] 75mg Take 1 [facility] 75 mg 1-07 tablet by [facility] of tablet 00:00: mouth in [place] 00 the Medical morning. Branch KCL 20 mEq 2021-11 Yes [id number] 20meq Take 1 [facility] tablet 1-07 tablet by ity of 00:00: mouth in [place] 00 the Medical morning. Branch levothyroxi 2021-11 Yes [id number] 150ug Take 1 [facility] ne 150 mcg 1-07 tablet by [facility] of tablet 00:00: mouth [place] 00 every Medical morning. Branch insulin NPH 2021-11 Yes [id number] 17U inject 17 [facility] and regular 1-07 Units it[facility] of human 70-30 00:00: under the [place] 100 unit/mL 00 skin every Me dical (70-30) morning Branch injection and evening. albuterol 2021-11 Yes [id number] 2{puff} Inhale 2 [facility] 90 1-07 Puffs ity of mcg/actuati 00:00: every 6 [place] as on inhaler 00 (six) Medical hours as Branch needed for Wheezing, Shortness of Breath, Bronchospa sm or Chest tightness. allopurinoL 2021-11 Yes [id number] 100mg Take 1 [facility] 100 mg 1-07 tablet by [facility] of tablet 00:00: mouth in [place] 00 the Medical morning. Branch atorvastati 2021-11 Yes [id number] 80mg Take 1 [facility] n 80 mg 1-07 tablet by [facility] of tablet 00:00: mouth at [place] [address] bedtime. Medical Branch clopidogreL 2021-11 Yes [id number] 75mg Take 1 [facility] 75 mg 1-07 tablet by [facility] of tablet 00:00: mouth in [place] 00 the Medical morning. Branch KCL 20 mEq 2021-11 Yes [id number] 20meq Take 1 [facility] tablet 1-07 tablet by it[facility] of 00:00: mouth in [place] 00 the Medical morning. Branch levothyroxi 2021-11 Yes [id number] 150ug Take 1 [facility] ne 150 mcg 1-07 tablet by [facility] of tablet 00:00: mouth [place] 00 every Medical morning. Branch insulin NPH 2021-11 Yes [id number] 17U inject 17 [facility] and regular 1-07 Units it[facility] of human 70-30 00:00: under the [place] 100 unit/mL 00 skin every Me dical (70-30) morning Branch injection and evening. albuterol 2021-11 Yes [id number] 2{puff} Inhale 2 [facility] 90 1-07 Puffs it[facility] of mcg/actuati 00:00: every 6 [place] as on inhaler 00 (six) Medical hours as Branch needed for Wheezing, Shortness of Breath, Bronchospa sm or Chest tightness. allopurinoL 2021-11 Yes [id number] 100mg Take 1 [facility] 100 mg 1-07 tablet by [facility] of tablet 00:00: mouth in [place] 00 the Medical morning. Branch atorvastati 2021-11 Yes [id number] 80mg Take 1 [facility] n 80 mg 1-07 tablet by [facility] of tablet 00:00: mouth at [place] [address] bedtime. Medical Branch clopidogreL 2021-11 Yes [id number] 75mg Take 1 [facility] 75 mg 1-07 tablet by [facility] of tablet 00:00: mouth in [place] 00 the Medical morning. Branch KCL 20 mEq 2021-11 Yes [id number] 20meq Take 1 [facility] tablet 1-07 tablet by it[facility] of 00:00: mouth in [place] 00 the Medical morning. Branch levothyroxi 2021-11 Yes [id number] 150ug Take 1 [facility] ne 150 mcg 1-07 tablet by [facility] of tablet 00:00: mouth [place] 00 every Medical morning. Branch insulin NPH 2021-11 Yes [id number] 17U inject 17 [facility] and regular 1-07 Units it[facility] of human 70-30 00:00: under the [place] 100 unit/mL 00 skin every Me dical (70-30) morning Branch injection and evening. albuterol 2021-11 Yes [id number] 2{puff} Inhale 2 [facility] 90 1-07 Puffs ity of mcg/actuati 00:00: every 6 [place] as on inhaler 00 (six) Medical hours as Branch needed for Wheezing, Shortness of Breath, Bronchospa sm or Chest tightness. allopurinoL 2021-11 Yes [id number] 100mg Take 1 [facility] 100 mg 1-07 tablet by [facility] of tablet 00:00: mouth in [place] 00 the Medical morning. Branch atorvastati 2021-11 Yes [id number] 80mg Take 1 [facility] n 80 mg 1-07 tablet by [facility] of tablet 00:00: mouth at [place] 00 bedtime. Medical Branch clopidogreL 2021-11 Yes [id number] 75mg Take 1 [facility] 75 mg 1-07 tablet by [facility] of tablet 00:00: mouth in [place] 00 the Medical morning. Branch KCL 20 mEq 2021-11 Yes [id number] 20meq Take 1 [facility] tablet 1-07 tablet by ity of 00:00: mouth in [place] 00 the Medical morning. Branch levothyroxi 2021-11 Yes [id number] 150ug Take 1 [facility] ne 150 mcg 1-07 tablet by [facility] of tablet 00:00: mouth [place] 00 every Medical morning. Branch insulin NPH 2021-11 Yes [id number] 17U inject 17 [facility] and regular 1-07 Units ity of human 70-30 00:00: under the [place] 100 unit/mL 00 skin every Me dical (70-30) morning Branch injection and evening. albuterol 2021-11 Yes [id number] 2{puff} Inhale 2 [facility] 90 1-07 Puffs ity of mcg/actuati 00:00: every 6 [place] as on inhaler 00 (six) Medical hours as Branch needed for Wheezing, Shortness of Breath, Bronchospa sm or Chest tightness. allopurinoL 2021-11 Yes [id number] 100mg Take 1 [facility] 100 mg 1-07 tablet by [facility] of tablet 00:00: mouth in [place] 00 the Medical morning. Branch atorvastati 2021-11 Yes [id number] 80mg Take 1 [facility] n 80 mg 1-07 tablet by [facility] of tablet 00:00: mouth at [place] 00 bedtime. Medical Branch clopidogreL 2021-11 Yes [id number] 75mg Take 1 [facility] 75 mg 1-07 tablet by [facility] of tablet 00:00: mouth in [place] 00 the Medical morning. Branch KCL 20 mEq 2021-11 Yes [id number] 20meq Take 1 [facility] tablet 1-07 tablet by ity of 00:00: mouth in [place] 00 the Medical morning. Branch levothyroxi 2021-11 Yes [id number] 150ug Take 1 [facility] ne 150 mcg 1-07 tablet by [facility] of tablet 00:00: mouth [place] 00 every Medical morning. Branch insulin NPH 2021-11 Yes [id number] 17U inject 17 [facility] and regular 1-07 Units ity of human 70-30 00:00: under the [place] 100 unit/mL 00 skin every Me dical (70-30) morning Branch injection and evening. albuterol 2021-11 Yes [id number] 2{puff} Inhale 2 [facility] 90 1-07 Puffs ity of mcg/actuati 00:00: every 6 [place] as on inhaler 00 (six) Medical hours as Branch needed for Wheezing, Shortness of Breath, Bronchospa sm or Chest tightness. allopurinoL 2021-11 Yes [id number] 100mg Take 1 [facility] 100 mg 1-07 tablet by [facility] of tablet 00:00: mouth in [place] 00 the Medical morning. Branch atorvastati 2021-11 Yes [id number] 80mg Take 1 [facility] n 80 mg 1-07 tablet by [facility] of tablet 00:00: mouth at [place] [address] bedtime. Medical Branch clopidogreL 2021-11 Yes [id number] 75mg Take 1 [facility] 75 mg 1-07 tablet by [facility] of tablet 00:00: mouth in [place] 00 the Medical morning. Branch KCL 20 mEq 2021-11 Yes [id number] 20meq Take 1 [facility] tablet 1-07 tablet by ity of 00:00: mouth in [place] 00 the Medical morning. Branch levothyroxi 2021-11 Yes [id number] 150ug Take 1 [facility] ne 150 mcg 1-07 tablet by [facility] of tablet 00:00: mouth [place] 00 every Medical morning. Branch insulin NPH 2021-11 Yes [id number] 17U inject 17 [facility] and regular 1-07 Units ity of human 70-30 00:00: under the [place] 100 unit/mL 00 skin every Me dical (70-30) morning Branch injection and evening. albuterol 2021-11 Yes [id number] 2{puff} Inhale 2 [facility] 90 1-07 Puffs ity of mcg/actuati 00:00: every 6 [place] as on inhaler 00 (six) Medical hours as Branch needed for Wheezing, Shortness of Breath, Bronchospa sm or Chest tightness. allopurinoL 2021-11 Yes [id number] 100mg Take 1 [facility] 100 mg 1-07 tablet by [facility] of tablet 00:00: mouth in [place] 00 the Medical morning. Branch atorvastati 2021-11 Yes [id number] 80mg Take 1 [facility] n 80 mg 1-07 tablet by [facility] of tablet 00:00: mouth at [place] 00 bedtime. Medical Branch clopidogreL 2021-11 Yes [id number] 75mg Take 1 [facility] 75 mg 1-07 tablet by [facility] of tablet 00:00: mouth in [place] 00 the Medical morning. Branch KCL 20 mEq 2021-11 Yes [id number] 20meq Take 1 [facility] tablet 1-07 tablet by ity of 00:00: mouth in [place] 00 the Medical morning. Branch levothyroxi 2021-11 Yes [id number] 150ug Take 1 [facility] ne 150 mcg 1-07 tablet by [facility] of tablet 00:00: mouth [place] 00 every Medical morning. Branch insulin NPH 2021-11 Yes [id number] 17U inject 17 [facility] and regular 1-07 Units ity of human 70-30 00:00: under the [place] 100 unit/mL 00 skin every Me dical (70-30) morning Branch injection and evening. albuterol 2021-11 Yes [id number] 2{puff} Inhale 2 [facility] 90 1-07 Puffs ity of mcg/actuati 00:00: every 6 [place] as on inhaler 00 (six) Medical hours as Branch needed for Wheezing, Shortness of Breath, Bronchospa sm or Chest tightness. allopurinoL 2021-11 Yes [id number] 100mg Take 1 [facility] 100 mg 1-07 tablet by [facility] of tablet 00:00: mouth in [place] 00 the Medical morning. Branch atorvastati 2021-11 Yes [id number] 80mg Take 1 [facility] n 80 mg 1-07 tablet by ity of tablet 00:00: mouth at [place] 00 bedtime. Medical Branch clopidogreL 2021-11 Yes [id number] 75mg Take 1 [facility] 75 mg 1-07 tablet by [facility] of tablet 00:00: mouth in [place] 00 the Medical morning. Branch KCL 20 mEq 2021-11 Yes [id number] 20meq Take 1 [facility] tablet 1-07 tablet by ity of 00:00: mouth in [place] 00 the Medical morning. Branch levothyroxi 2021-11 Yes [id number] 150ug Take 1 [facility] ne 150 mcg 1-07 tablet by it[facility] of tablet 00:00: mouth [place] 00 every Medical morning. Branch insulin NPH 2021-11 Yes [id number] 17U inject 17 [facility] and regular 1-07 Units ity of human 70-30 00:00: under the [place] 100 unit/mL 00 skin every Me dical (70-30) morning Branch injection and evening. albuterol 2021-11 Yes [id number] 2{puff} Inhale 2 [facility] 90 1-07 Puffs ity of mcg/actuati 00:00: every 6 [place] as on inhaler 00 (six) Medical hours as Branch needed for Wheezing, Shortness of Breath, Bronchospa sm or Chest tightness. allopurinoL 2021-11 Yes [id number] 100mg Take 1 [facility] 100 mg 1-07 tablet by [facility] of tablet 00:00: mouth in [place] 00 the Medical morning. Branch atorvastati 2021-11 Yes [id number] 80mg Take 1 [facility] n 80 mg 1-07 tablet by ity of tablet 00:00: mouth at [place] [address] bedtime. Medical Branch clopidogreL 2021-11 Yes [id number] 75mg Take 1 [facility] 75 mg 1-07 tablet by ity of tablet 00:00: mouth in [place] 00 the Medical morning. Branch KCL 20 mEq 2021-11 Yes [id number] 20meq Take 1 [facility] tablet 1-07 tablet by ity of 00:00: mouth in [place] 00 the Medical morning. Branch levothyroxi 2021-11 Yes [id number] 150ug Take 1 [facility] ne 150 mcg 1-07 tablet by [facility] of tablet 00:00: mouth [place] 00 every Medical morning. Branch insulin NPH 2021-11 Yes [id number] 17U inject 17 [facility] and regular 1-07 Units ity of human 70-30 00:00: under the [place] 100 unit/mL 00 skin every Me dical (70-30) morning Branch injection and evening. albuterol 2021-11 Yes [id number] 2{puff} Inhale 2 [facility] 90 1-07 Puffs ity of mcg/actuati 00:00: every 6 [place] as on inhaler 00 (six) Medical hours as Branch needed for Wheezing, Shortness of Breath, Bronchospa sm or Chest tightness. allopurinoL 2021-11 Yes [id number] 100mg Take 1 [facility] 100 mg 1-07 tablet by [facility] of tablet 00:00: mouth in [place] 00 the Medical morning. Branch atorvastati 2021-11 Yes [id number] 80mg Take 1 [facility] n 80 mg 1-07 tablet by ity of tablet 00:00: mouth at [place] 00 bedtime. Medical Branch clopidogreL 2021-11 Yes [id number] 75mg Take 1 [facility] 75 mg 1-07 tablet by ity of tablet 00:00: mouth in [place] 00 the Medical morning. Branch KCL 20 mEq 2021-11 Yes [id number] 20meq Take 1 [facility] tablet 1-07 tablet by ity of 00:00: mouth in [place] 00 the Medical morning. Branch levothyroxi 2021-11 Yes [id number] 150ug Take 1 [facility] ne 150 mcg 1-07 tablet by [facility] of tablet 00:00: mouth [place] 00 every Medical morning. Branch insulin NPH 2021-11 Yes [id number] 17U inject 17 [facility] and regular 1-07 Units ity of human 70-30 00:00: under the [place] 100 unit/mL 00 skin every Me dical (70-30) morning Branch injection and evening. albuterol 2021-11 Yes [id number] 2{puff} Inhale 2 [facility] 90 1-07 Puffs ity of mcg/actuati 00:00: every 6 [place] as on inhaler 00 (six) Medical hours as Branch needed for Wheezing, Shortness of Breath, Bronchospa sm or Chest tightness. allopurinoL 2021-11 Yes [id number] 100mg Take 1 [facility] 100 mg 1-07 tablet by [facility] of tablet 00:00: mouth in [place] 00 the Medical morning. Branch atorvastati 2021-11 Yes [id number] 80mg Take 1 [facility] n 80 mg 1-07 tablet by ity of tablet 00:00: mouth at [place] [address] bedtime. Medical Branch clopidogreL 2021-11 Yes [id number] 75mg Take 1 [facility] 75 mg 1-07 tablet by it[facility] of tablet 00:00: mouth in [place] 00 the Medical morning. Branch KCL 20 mEq 2021-11 Yes [id number] 20meq Take 1 [facility] tablet 1-07 tablet by ity of 00:00: mouth in [place] 00 the Medical morning. Branch levothyroxi 2021-11 Yes [id number] 150ug Take 1 [facility] ne 150 mcg 1-07 tablet by it[facility] of tablet 00:00: mouth [place] 00 every Medical morning. Branch insulin NPH 2021-11 Yes [id number] 17U inject 17 [facility] and regular 1-07 Units ity of human 70-30 00:00: under the [place] 100 unit/mL 00 skin every Me dical (70-30) morning Branch injection and evening. albuterol 2021-11 Yes [id number] 2{puff} Inhale 2 [facility] 90 1-07 Puffs ity of mcg/actuati 00:00: every 6 [place] as on inhaler 00 (six) Medical hours as Branch needed for Wheezing, Shortness of Breath, Bronchospa sm or Chest tightness. allopurinoL 2021-11 Yes [id number] 100mg Take 1 [facility] 100 mg 1-07 tablet by ity of tablet 00:00: mouth in [place] 00 the Medical morning. Branch atorvastati 2021-11 Yes [id number] 80mg Take 1 [facility] n 80 mg 1-07 tablet by ity of tablet 00:00: mouth at [place] [address] bedtime. Medical Branch clopidogreL 2021-11 Yes [id number] 75mg Take 1 [facility] 75 mg 1-07 tablet by ity of tablet 00:00: mouth in [place] 00 the Medical morning. Branch KCL 20 mEq 2021-11 Yes [id number] 20meq Take 1 [facility] tablet 1-07 tablet by ity of 00:00: mouth in [place] 00 the Medical morning. Branch levothyroxi 2021-11 Yes [id number] 150ug Take 1 [facility] ne 150 mcg 1-07 tablet by ity of tablet 00:00: mouth [place] 00 every Medical morning. Branch insulin NPH 2021-11 Yes [id number] 17U inject 17 [facility] and regular 1-07 Units ity of human 70-30 00:00: under the [place] 100 unit/mL 00 skin every Me dical (70-30) morning Branch injection and evening. albuterol 2021-11 Yes [id number] 2{puff} Inhale 2 [facility] 90 1-07 Puffs ity of mcg/actuati 00:00: every 6 [place] as on inhaler 00 (six) Medical hours as Branch needed for Wheezing, Shortness of Breath, Bronchospa sm or Chest tightness. allopurinoL 2021-11 Yes [id number] 100mg Take 1 [facility] 100 mg 1-07 tablet by ity of tablet 00:00: mouth in [place] 00 the Medical morning. Branch atorvastati 2021-11 Yes [id number] 80mg Take 1 [facility] n 80 mg 1-07 tablet by [facility]y of tablet 00:00: mouth at [place] 00 bedtime. Medical Branch clopidogreL 2021-11 Yes [id number] 75mg Take 1 [facility] 75 mg 1-07 tablet by it[facility] of tablet 00:00: mouth in [place] 00 the Medical morning. Branch KCL 20 mEq 2021-11 Yes [id number] 20meq Take 1 [facility] tablet 1-07 tablet by ity of 00:00: mouth in [place] 00 the Medical morning. Branch levothyroxi 2021-11 Yes [id number] 150ug Take 1 [facility] ne 150 mcg 1-07 tablet by ity of tablet 00:00: mouth [place] 00 every Medical morning. Branch insulin NPH 2021-11 Yes [id number] 17U inject 17 [facility] and regular 1-07 Units ity of human 70-30 00:00: under the [place] 100 unit/mL 00 skin every Me dical (70-30) morning Branch injection and evening. albuterol 2021-11 Yes [id number] 2{puff} Inhale 2 [facility] 90 1-07 Puffs ity of mcg/actuati 00:00: every 6 [place] as on inhaler 00 (six) Medical hours as Branch needed for Wheezing, Shortness of Breath, Bronchospa sm or Chest tightness. allopurinoL 2021-11 Yes [id number] 100mg Take 1 [facility] 100 mg 1-07 tablet by [facility] of tablet 00:00: mouth in [place] 00 the Medical morning. Branch atorvastati 2021-11 Yes [id number] 80mg Take 1 [facility] n 80 mg 1-07 tablet by ity of tablet 00:00: mouth at [place] [address] bedtime. Medical Branch clopidogreL 2021-11 Yes [id number] 75mg Take 1 [facility] 75 mg 1-07 tablet by ity of tablet 00:00: mouth in [place] 00 the Medical morning. Branch KCL 20 mEq 2021-11 Yes [id number] 20meq Take 1 [facility] tablet 1-07 tablet by ity of 00:00: mouth in [place] 00 the Medical morning. Branch levothyroxi 2021-11 Yes [id number] 150ug Take 1 [facility] ne 150 mcg 1-07 tablet by ity of tablet 00:00: mouth [place] [address] every Medical morning. Branch insulin NPH 2021-11 Yes [id number] 17U inject 17 [facility] and regular 1-07 Units ity of human 70-30 00:00: under the [place] 100 unit/mL 00 skin every Me dical (70-30) morning Branch injection and evening. albuterol 2021-11 Yes [id number] 2{puff} Inhale 2 [facility] 90 1-07 Puffs ity of mcg/actuati 00:00: every 6 [place] as on inhaler 00 (six) Medical hours as Branch needed for Wheezing, Shortness of Breath, Bronchospa sm or Chest tightness. allopurinoL 2021-11 Yes [id number] 100mg Take 1 [facility] 100 mg 1-07 tablet by ity of tablet 00:00: mouth in [place] 00 the Medical morning. Branch atorvastati 2021-11 Yes [id number] 80mg Take 1 [facility] n 80 mg 1-07 tablet by ity of tablet 00:00: mouth at [place] [address] bedtime. Medical Branch clopidogreL 2021-11 Yes [id number] 75mg Take 1 [facility] 75 mg 1-07 tablet by ity of tablet 00:00: mouth in [place] 00 the Medical morning. Branch KCL 20 mEq 2021-11 Yes [id number] 20meq Take 1 [facility] tablet 1-07 tablet by ity of 00:00: mouth in [place] 00 the Medical morning. Branch levothyroxi 2021-11 Yes [id number] 150ug Take 1 [facility] ne 150 mcg 1-07 tablet by ity of tablet 00:00: mouth [place] 00 every Medical morning. Branch insulin NPH 2021-11 Yes [id number] 17U inject 17 [facility] and regular 1-07 Units ity of human 70-30 00:00: under the [place] 100 unit/mL 00 skin every Me dical (70-30) morning Branch injection and evening. albuterol 2021-11 Yes [id number] 2{puff} Inhale 2 [facility] 90 1-07 Puffs ity of mcg/actuati 00:00: every 6 [place] as on inhaler 00 (six) Medical hours as Branch needed for Wheezing, Shortness of Breath, Bronchospa sm or Chest tightness. allopurinoL 2021-11 Yes [id number] 100mg Take 1 [facility] 100 mg 1-07 tablet by [facility] of tablet 00:00: mouth in [place] 00 the Medical morning. Branch atorvastati 2021-11 Yes [id number] 80mg Take 1 [facility] n 80 mg 1-07 tablet by ity of tablet 00:00: mouth at [place] [address] bedtime. Medical Branch clopidogreL 2021-11 Yes [id number] 75mg Take 1 [facility] 75 mg 1-07 tablet by ity of tablet 00:00: mouth in [place] 00 the Medical morning. Branch KCL 20 mEq 2021-11 Yes [id number] 20meq Take 1 [facility] tablet 1-07 tablet by ity of 00:00: mouth in [place] 00 the Medical morning. Branch levothyroxi 2021-11 Yes [id number] 150ug Take 1 [facility] ne 150 mcg 1-07 tablet by ity of tablet 00:00: mouth [place] 00 every Medical morning. Branch insulin NPH 2021-11 Yes [id number] 17U inject 17 [facility] and regular 1-07 Units ity of human 70-30 00:00: under the [place] 100 unit/mL 00 skin every Me dical (70-30) morning Branch injection and evening. albuterol 2021-11 Yes [id number] 2{puff} Inhale 2 [facility] 90 1-07 Puffs ity of mcg/actuati 00:00: every 6 [place] as on inhaler 00 (six) Medical hours as Branch needed for Wheezing, Shortness of Breath, Bronchospa sm or Chest tightness. allopurinoL 2021-11 Yes [id number] 100mg Take 1 [facility] 100 mg 1-07 tablet by ity of tablet 00:00: mouth in [place] 00 the Medical morning. Branch atorvastati 2021-11 Yes [id number] 80mg Take 1 [facility] n 80 mg 1-07 tablet by ity of tablet 00:00: mouth at [place] [address] bedtime. Medical Branch clopidogreL 2021-11 Yes [id number] 75mg Take 1 [facility] 75 mg 1-07 tablet by ity of tablet 00:00: mouth in [place] 00 the Medical morning. Branch KCL 20 mEq 2021-11 Yes [id number] 20meq Take 1 [facility] tablet 1-07 tablet by ity of 00:00: mouth in [place] 00 the Medical morning. Branch levothyroxi 2021-11 Yes [id number] 150ug Take 1 [facility] ne 150 mcg 1-07 tablet by ity of tablet 00:00: mouth [place] [address] every Medical morning. Branch insulin NPH 2021-11 Yes [id number] 17U inject 17 [facility] and regular 1-07 Units ity of human 70-30 00:00: under the [place] 100 unit/mL 00 skin every Me dical (70-30) morning Branch injection and evening. albuterol 2021-11 Yes [id number] 2{puff} Inhale 2 [facility] 90 1-07 Puffs ity of mcg/actuati 00:00: every 6 [place] on inhaler 00 (six) Medical hours as Branch needed for Wheezing, Shortness of Breath, Bronchospa sm or Chest tightness. allopurinoL 2021-11 Yes [id number] 100mg Take 1 [facility] 100 mg 1-07 tablet by ity of tablet 00:00: mouth in [place] 00 the Medical morning. Branch atorvastati 2021-11 Yes [id number] 80mg Take 1 [facility] n 80 mg 1-07 tablet by ity of tablet 00:00: mouth at [place] [address] bedtime. Medical Branch clopidogreL 2021-11 Yes [id number] 75mg Take 1 [facility] 75 mg 1-07 tablet by ity of tablet 00:00: mouth in [place] 00 the Medical morning. Branch KCL 20 mEq 2021-11 Yes [id number] 20meq Take 1 [facility] tablet 1-07 tablet by ity of 00:00: mouth in [place] 00 the Medical morning. Branch levothyroxi 2021-11 Yes [id number] 150ug Take 1 [facility] ne 150 mcg 1-07 tablet by ity of tablet 00:00: mouth [place] 00 every Medical morning. Branch insulin NPH 2021-11 Yes [id number] 17U inject 17 [facility] and regular 1-07 Units ity of human 70-30 00:00: under the [place] 100 unit/mL 00 skin every Me dical (70-30) morning Branch injection and evening. allopurinoL 2021-11 Yes [id number] 100mg Take 1 [facility] 100 mg 1-07 tablet by ity of tablet 00:00: mouth in [place] 00 the Medical morning. Branch atorvastati 2021-11 Yes [id number] 80mg Take 1 [facility] n 80 mg 1-07 tablet by ity of tablet 00:00: mouth at [place] 00 bedtime. Medical Branch clopidogreL 2021-11 Yes [id number] 75mg Take 1 [facility] 75 mg 1-07 tablet by ity of tablet 00:00: mouth in [place] 00 the Medical morning. Branch insulin NPH 2021-11 Yes [id number] 17U inject 17 [facility] and regular 1-07 Units ity of human 70-30 00:00: under the [place] 100 unit/mL 00 skin every Me dical (70-30) morning Branch injection and evening. allopurinoL 2021-11 Yes [id number] 100mg Take 1 [facility] 100 mg 1-07 tablet by ity of tablet 00:00: mouth in [place] 00 the Medical morning. Branch atorvastati 2021-11 Yes [id number] 80mg Take 1 [facility] n 80 mg 1-07 tablet by ity of tablet 00:00: mouth at [place] 00 bedtime. Medical Branch clopidogreL 2021-11 Yes [id number] 75mg Take 1 [facility] 75 mg 1-07 tablet by ity of tablet 00:00: mouth in [place] 00 the Medical morning. Branch insulin NPH 2021-11 Yes [id number] 17U inject 17 [facility] and regular 1-07 Units ity of human 70-30 00:00: under the [place] 100 unit/mL 00 skin every Me dical (70-30) morning Branch injection and evening. allopurinoL 2021-11 Yes [id number] 100mg Take 1 [facility] 100 mg 1-07 tablet by ity of tablet 00:00: mouth in [place] 00 the Medical morning. Branch atorvastati 2021-11 Yes [id number] 80mg Take 1 [facility] n 80 mg 1-07 tablet by ity of tablet 00:00: mouth at [place] 00 bedtime. Medical Branch clopidogreL 2021-11 Yes [id number] 75mg Take 1 [facility] 75 mg 1-07 tablet by ity of tablet 00:00: mouth in [place] 00 the Medical morning. Branch insulin NPH 2021-11 Yes [id number] 17U inject 17 [facility] and regular 1-07 Units ity of human 70-30 00:00: under the [place] 100 unit/mL 00 skin every Me dical (70-30) morning Branch injection and evening. allopurinoL 2021-11 Yes [id number] 100mg Take 1 [facility] 100 mg 1-07 tablet by ity of tablet 00:00: mouth in [place] 00 the Medical morning. Branch atorvastati 2021-11 Yes [id number] 80mg Take 1 [facility] n 80 mg 1-07 tablet by ity of tablet 00:00: mouth at [place] 00 bedtime. Medical Branch clopidogreL 2021-11 Yes [id number] 75mg Take 1 [facility] 75 mg 1-07 tablet by ity of tablet 00:00: mouth in [place] 00 the Medical morning. Branch insulin NPH 2021-11 Yes [id number] 17U inject 17 [facility] and regular 1-07 Units ity of human 70-30 00:00: under the [place] 100 unit/mL 00 skin every Me dical (70-30) morning Branch injection and evening. allopurinoL 2021-11 Yes [id number] 100mg Take 1 [facility] 100 mg 1-07 tablet by ity of tablet 00:00: mouth in [place] 00 the Medical morning. Branch atorvastati 2021-11 Yes [id number] 80mg Take 1 [facility] n 80 mg 1-07 tablet by ity of tablet 00:00: mouth at [place] 00 bedtime. Medical Branch clopidogreL 2021-11 Yes [id number] 75mg Take 1 [facility] 75 mg 1-07 tablet by ity of tablet 00:00: mouth in [place] 00 the Medical morning. Branch insulin NPH 2021-11 Yes [id number] 17U inject 17 [facility] and regular 1-07 Units ity of human 70-30 00:00: under the [place] 100 unit/mL 00 skin every Me dical (70-30) morning Branch injection and evening. allopurinoL 2021-11 Yes [id number] 100mg Take 1 [facility] 100 mg 1-07 tablet by ity of tablet 00:00: mouth in [place] 00 the Medical morning. Branch atorvastati 2021-11 Yes [id number] 80mg Take 1 [facility] n 80 mg 1-07 tablet by ity of tablet 00:00: mouth at [place] 00 bedtime. Medical Branch clopidogreL 2021-11 Yes [id number] 75mg Take 1 [facility] 75 mg 1-07 tablet by ity of tablet 00:00: mouth in [place] 00 the Medical morning. Branch insulin NPH 2021-11 Yes [id number] 17U inject 17 [facility] and regular 1-07 Units ity of human 70-30 00:00: under the [place] 100 unit/mL 00 skin every Me dical (70-30) morning Branch injection and evening. allopurinoL 2021-11 Yes [id number] 100mg Take 1 [facility] 100 mg 1-07 tablet by ity of tablet 00:00: mouth in [place] 00 the Medical morning. Branch atorvastati 2021-11 Yes [id number] 80mg Take 1 [facility] n 80 mg 1-07 tablet by ity of tablet 00:00: mouth at [place] 00 bedtime. Medical Branch clopidogreL 2021-11 Yes [id number] 75mg Take 1 [facility] 75 mg 1-07 tablet by ity of tablet 00:00: mouth in [place] 00 the Medical morning. Branch insulin NPH 2021-11 Yes [id number] 17U inject 17 [facility] and regular 1-07 Units ity of human 70-30 00:00: under the [place] 100 unit/mL 00 skin every Me dical (70-30) morning Branch injection and evening. allopurinoL 2021-11 Yes [id number] 100mg Take 1 [facility] 100 mg 1-07 tablet by ity of tablet 00:00: mouth in [place] 00 the Medical morning. Branch atorvastati 2021-11 Yes [id number] 80mg Take 1 [facility] n 80 mg 1-07 tablet by ity of tablet 00:00: mouth at [place] 00 bedtime. Medical Branch clopidogreL 2021-11 Yes [id number] 75mg Take 1 [facility] 75 mg 1-07 tablet by ity of tablet 00:00: mouth in [place] 00 the Medical morning. Branch insulin NPH 2021-11 Yes [id number] 17U inject 17 [facility] and regular 1-07 Units ity of human 70-30 00:00: under the [place] 100 unit/mL 00 skin every Me dical (70-30) morning Branch injection and evening. allopurinoL 2021-11 Yes [id number] 100mg Take 1 [facility] 100 mg 1-07 tablet by ity of tablet 00:00: mouth in [place] 00 the Medical morning. Branch atorvastati 2021-11 Yes [id number] 80mg Take 1 [facility] n 80 mg 1-07 tablet by ity of tablet 00:00: mouth at [place] 00 bedtime. Medical Branch clopidogreL 2021-11 Yes [id number] 75mg Take 1 [facility] 75 mg 1-07 tablet by ity of tablet 00:00: mouth in [place] 00 the Medical morning. Branch insulin NPH 2021-11 Yes [id number] 17U inject 17 [facility] and regular 1-07 Units ity of human 70-30 00:00: under the [place] 100 unit/mL 00 skin every Me dical (70-30) morning Branch injection and evening. allopurinoL 2021-11 Yes [id number] 100mg Take 1 [facility] 100 mg 1-07 tablet by ity of tablet 00:00: mouth in [place] 00 the Medical morning. Branch atorvastati 2021-11 Yes [id number] 80mg Take 1 [facility] n 80 mg 1-07 tablet by ity of tablet 00:00: mouth at [place] 00 bedtime. Medical Branch clopidogreL 2021-11 Yes [id number] 75mg Take 1 [facility] 75 mg 1-07 tablet by ity of tablet 00:00: mouth in [place] 00 the Medical morning. Branch insulin NPH 2021-11 Yes [id number] 17U inject 17 [facility] and regular 1-07 Units ity of human 70-30 00:00: under the [place] 100 unit/mL 00 skin every Me dical (70-30) morning Branch injection and evening. allopurinoL 2021-11 Yes [id number] 100mg Take 1 [facility] 100 mg 1-07 tablet by ity of tablet 00:00: mouth in [place] 00 the Medical morning. Branch atorvastati 2021-11 Yes [id number] 80mg Take 1 [facility] n 80 mg 1-07 tablet by ity of tablet 00:00: mouth at [place] 00 bedtime. Medical Branch clopidogreL 2021-11 Yes [id number] 75mg Take 1 [facility] 75 mg 1-07 tablet by ity of tablet 00:00: mouth in [place] 00 the Medical morning. Branch insulin NPH 2021-11 Yes [id number] 17U inject 17 [facility] and regular 1-07 Units ity of human 70-30 00:00: under the [place] 100 unit/mL 00 skin every Me dical (70-30) morning Branch injection and evening. allopurinoL 2021-11 Yes [id number] 100mg Take 1 [facility] 100 mg 1-07 tablet by ity of tablet 00:00: mouth in [place] 00 the Medical morning. Branch atorvastati 2021-11 Yes [id number] 80mg Take 1 [facility] n 80 mg 1-07 tablet by ity of tablet 00:00: mouth at [place] 00 bedtime. Medical Branch clopidogreL 2021-11 Yes [id number] 75mg Take 1 [facility] 75 mg 1-07 tablet by ity of tablet 00:00: mouth in [place] 00 the Medical morning. Branch insulin NPH 2021-11 Yes [id number] 17U inject 17 [facility] and regular 1-07 Units ity of human 70-30 00:00: under the [place] 100 unit/mL 00 skin every Me dical (70-30) morning Branch injection and evening. allopurinoL 2021-11 Yes [id number] 100mg Take 1 [facility] 100 mg 1-07 tablet by ity of tablet 00:00: mouth in [place] 00 the Medical morning. Branch atorvastati 2021-11 Yes [id number] 80mg Take 1 [facility] n 80 mg 1-07 tablet by ity of tablet 00:00: mouth at [place] 00 bedtime. Medical Branch clopidogreL 2021-11 Yes [id number] 75mg Take 1 [facility] 75 mg 1-07 tablet by ity of tablet 00:00: mouth in [place] 00 the Medical morning. Branch insulin NPH 2021-11 Yes [id number] 17U inject 17 [facility] and regular 1-07 Units ity of human 70-30 00:00: under the [place] 100 unit/mL 00 skin every Me dical (70-30) morning Branch injection and evening. allopurinoL 2021-11 Yes [id number] 100mg Take 1 [facility] 100 mg 1-07 tablet by ity of tablet 00:00: mouth in [place] 00 the Medical morning. Branch atorvastati 2021-11 Yes [id number] 80mg Take 1 [facility] n 80 mg 1-07 tablet by ity of tablet 00:00: mouth at [place] 00 bedtime. Medical Branch clopidogreL 2021-11 Yes [id number] 75mg Take 1 [facility] 75 mg 11-29 tablet by ity of tablet 00:00: mouth in [place] 00 the Medical morning. Branch albuterol 2021-11- No [id number] 2{puff} Inhale 2 [facility] 90 11-29- Puffs ity of mcg/actuati 00:00: 00:00 every 6 [place] on inhaler 00 :00 (six) Medical hours as Branch needed for Wheezing, Shortness of Breath, Bronchospa sm or Chest tightness. KCL 20 mEq 2021-11- No [id number] 20meq Take 1 [facility] tablet 11-29 tablet by ity of 00:00: 00:00 mouth in [place] 00 :00 the Medical morning. Branch levothyroxi 2021-11- No [id number] 150ug Take 1 [facility] ne 150 mcg 11-29 tablet by ity of tablet 00:00: 00:00 mouth [place] 00 :00 every Medical morning. Branch empaglifloz 2021-11- No [id number] 10mg Take 1 [facility] in 11-29 tablet by ity of (JARDIANCE) 00:00: 00:[place] 10 mg 00 :00 every Medical morning. Branch acetaminoph 2021-11 Yes 1 tablet [place] en 325 mg 1-01 as needed ity o f tablet 16:26: [address] acetaminoph 2021-11 Yes 1 tablet [place] 325 mg 1-01 as needed ity o f tablet 16:26: [address] Branch acetaminoph 2021-11 Yes 1 tablet [place] 325 mg 1-01 as needed ity o f tablet 16:: [address] acetaminoph 2021-11 Yes 1 tablet [place] 325 mg 1-01 as needed ity o f tablet 16:: [address] acetaminoph 2021-11 Yes 1 tablet [place] 325 mg 1-01 as needed ity o f tablet 16:: [address] acetaminoph 2021-11 Yes 1 tablet [place] 325 mg 1-01 as needed ity o f tablet 16:: [address] acetaminoph 2021-11 Yes 1 tablet [place] 325 mg 11-23 as needed ity o f tablet 16:26: [address] acetaminoph 2021-11 Yes 1 tablet [place] 325 mg 11-23 as needed ity o f tablet 16:26: [address] acetaminoph 2021-11 Yes 1 tablet [place] 325 mg 11-23 as needed ity o f tablet 16:26: [address] acetaminoph 2021-11 Yes 1 tablet [place] 325 mg 11-23 as needed ity o f tablet 16:26: [address] metoprolol 2021-11 Yes 50mg 50 mg, Unive rs succinate 11-23 Oral, ity of XL (TOPROL 14:00: DAILY, [place] XL) tablet 00 First dose Med ical 50 mg on [facility] 09/23/22 at 0900, Until Discontinu ed, Routine isosorbide 2021-11 Yes 60mg 60 mg, Unive rs mononitrate 11-23 Oral, ity of (IMDUR) 24 14:00: DAILY, [place] hr tablet 00 First dose Medi johnathon 60 mg on [facility] 09/23/22 at 0900, Until Discontinu ed, Routine insulin NPH 2021-11 Yes 10U 10 Units, U nivers and regular 11-23 Subcutaneo it y of human 70-30 14:00: , [place] (70-30 00 QAM+PM, Medical U-100 First dose Branch INSULIN) on [facility] 100 unit/mL 09/23/22 at (70-30) 0900, injection Until 10 Units Discontinu ed furosemide 2021-11 Yes 80mg 80 mg, Unive rs (LASIX) 11-23 Oral, ity of tablet 80 14:00: QAM+PM, [place] mg 00 First dose Medical on [facility] 09/23/22 at 0900, Until Discontinu ed, Routine colchicine 2021-11 Yes .6mg 0.6 mg, Univ ers (COLCRYS) 11-23 Oral, ity of tablet 0.6 14:00: DAILY, [place] mg 00 First dose Medical on [facility] 09/23/22 at 0900, Until Discontinu ed, Routine clopidogreL 2021-11 Yes 75mg 75 mg, Univ ers (PLAVIX) 75 11-23 Oral, ity of mg tablet 14:00: DAILY, [place] 75 mg 00 First dose Medical on [facility] 09/23/22 at 0900, Until Discontinu ed, Routine allopurinoL 2021-11 Yes 100mg 100 mg, Un lesly (ZYLOPRIM) 11-23 Oral, ity of tablet 100 14:00: DAILY, [place] mg 00 First dose Medical on [facility] 09/23/22 at 0900, Until Discontinu ed, Routine enoxaparin 2021-11 Yes 40mg 40 [facility] 11-23 Subcutaneo ity of injection 14:00: us, DAILY, [place] 40 mg 00 First dose Medical on [facility] 09/23/22 at 0900, Until Discontinu ed, Routine pantoprazol 2021-11 Yes 40mg 40 mg, Univ ers e 11-23 Oral, BID, ity of (PROTONIX) 13:00: First dose [place] EC tablet 00 on [facility] 40 mg 09/23/22 at Branch 0800, Until Discontinu ed, Routine levothyroxi 2021-11 Yes 150ug 150 mcg, U nivers ne 11-23 Oral, ity of (SYNTHROID) 11:00: QAM-0600, [place] tablet 150 00 First dose Med ical mcg on [facility] 09/23/22 at 0600, Until Discontinu ed, Routine Sliding 2021-11 Yes Subcutaneo [facility] ers Scale 11-23 us, Q4H, ity of Insulin-Reg 05:00: First dose [place] ular + Fsbg 00 on Medica l Testing 09/23/22 at Branch 0000, Until Discontinu ed, Routine cyclobenzap 2021-11 Yes 10mg 10 mg, Univ ers rine 11-23 Oral, ity of (FLEXERIL) 03:20: TIDPRN, [place] tablet 10 15 Starting Medica l mg on [facility] 09/22/22 at 2220, Until Discontinu ed, Routine, Muscle Spasms atorvastati 2021-11 Yes 80mg 80 mg, Univ ers n (LIPITOR) 11-23 Oral, QHS, it y of tablet 80 03:00: First dose [place] mg 00 on [facility] 09/22/22 Branch at 2200, Until Discontinu ed, Routine NaCl 0.9% 2021-11 Yes 1000mL at 125 Univ ers (NS) IV 1-01 mL/hr, IV ity of infusion 02:30: Infusion, [place] 1,000 mL 00 CONTINUOUS Medic al , Starting Branch on Thu09/22/22 at 2130, Until Discontinu ed, Routine nitroglycer 2021-11 Yes .4mg 0.4 mg, Uni vers in 11-23 Sublingual ity of (NITROSTAT) 02:25: , Q5MIN [place] as sublingual 19 PRN, Medical tablet 0.4 Starting Branc h mg on Thu09/22/22 at 2125, Until Discontinu ed, Routine, Chest pain ipratropium 2021-11 Yes 3mL 3 mL, Unive rs -albuteroL 11-23 Inhalation ity of (DUONEB) 02:24: , QIDPRN, [place] 0.5 mg-3 27 Starting Medical mg(2.5 mg on Thu base)/3 mL 09/22/22 nebulizer at 2123, solution 3 Until mL Discontinu ed, Routine, Wheezing, Shortness of Breath, Bronchospa sm, Chest tightness glucagon 2021-11 Yes 1mg 1 mg, Univers (GLUCAGEN 11-23 Intramuscu ity of DIAGNOSTIC 02:16: [place], PRN, [place] KIT) 39 Starting Medical injection 1 on Thu mg 09/22/22 at 211, Until Discontinu ed, DELFIN, Blood Glucose < or = 70 mg/dL and patient is unable to swallow or has mental changes. dextrose 50 2021-11 Yes 25mL 25 mL, Univ ers % in water 11-23 Slow IV ity of (D50W) 02:16: Push, PRN, [place] injection 39 Starting Medica l 25 mL on Thu Branch 09/22/22 at 2116, Until Discontinu ed, DELFIN, Blood Glucose < or = 70 mg/dL and patient is unable to swallow or has mental status changes. ondansetron 2021-11 Yes 4mg 4 mg, Slow Univers (ZOFRAN 11-23 IV Push, ity of (PF)) 02:16: Q6HPRN, [place] injection 4 31 Starting Medi johnathon mg on Thu Branch 09/22/22 at 2116, Until Discontinu ed, Routine, Nausea and Vomiting (N/V) acetaminoph 2021-11 Yes 650mg 650 mg, Un lesly en 1-01 Oral, ity of (TYLENOL) 02:16: Q6HPRN, [place] tablet 650 02 Starting Medic al mg on [facility] 09/22/22 at 2116, Until Discontinu ed, Routine, Pain (scale 1-3) colchicine 2021-11 Yes [id number] .6mg Take 1 [facility] 0.6 mg 1-01 tablet by ity of tablet 00:00: mouth in [place] 00 the Medical morning. [place] colchicine 2021-11 Yes [id number] .6mg Take 1 [facility] 0.6 mg 1-01 tablet by ity of tablet 00:00: mouth in [place] the Medical morning. [place] colchicine 2021-11 Yes [id number] .6mg Take 1 [facility] 0.6 mg 1-01 tablet by ity of tablet 00:00: mouth in [place] the Medical morning. [place] colchicine 2021-11 Yes [id number] .6mg Take 1 [facility] 0.6 mg 1-01 tablet by ity of tablet 00:00: mouth in [place] the Medical morning. [place] colchicine 2021-11 Yes [id number] .6mg Take 1 [facility] 0.6 mg 1-01 tablet by ity of tablet 00:00: mouth in [place] the Medical morning. [place] colchicine 2021-11 Yes [id number] .6mg Take 1 [facility] 0.6 mg 1-01 tablet by ity of tablet 00:00: mouth in [place] the Medical morning. [place] colchicine 2021-11 Yes [id number] .6mg Take 1 [facility] 0.6 mg 1-01 tablet by ity of tablet 00:00: mouth in [place] the Medical morning. [place] colchicine 2021-11 Yes [id number] .6mg Take 1 [facility] 0.6 mg 1-01 tablet by ity of tablet 00:00: mouth in [place] the Medical morning. [place] colchicine 2021-11 Yes [id number] .6mg Take 1 [facility] 0.6 mg 1-01 tablet by ity of tablet 00:00: mouth in [place] the Medical morning. [place] colchicine 2021-11 Yes [id number] .6mg Take 1 [facility] 0.6 mg 1-01 tablet by ity of tablet 00:00: mouth in [place] the Medical morning. Branch colchicine 2021-11 Yes [id number] .6mg Take 1 [facility] 0.6 mg 1-01 tablet by ity of tablet 00:00: mouth in [place] the Medical morning. Branch colchicine 2021-11 Yes [id number] .6mg Take 1 [facility] 0.6 mg 1-01 tablet by ity of tablet 00:00: mouth in [place] the Medical morning. Branch colchicine 2021-11 Yes [id number] .6mg Take 1 [facility] 0.6 mg 1-01 tablet by ity of tablet 00:00: mouth in [place] the Medical morning. Branch colchicine 2021-11 Yes [id number] .6mg Take 1 [facility] 0.6 mg 1-01 tablet by ity of tablet 00:00: mouth in [place] the Medical morning. Branch colchicine 2021-11 Yes [id number] .6mg Take 1 [facility] 0.6 mg 1-01 tablet by ity of tablet 00:00: mouth in [place] the Medical morning. Branch colchicine 2021-11 Yes [id number] .6mg Take 1 [facility] 0.6 mg 1-01 tablet by ity of tablet 00:00: mouth in [place] the Medical morning. Branch colchicine 2021-11 Yes [id number] .6mg Take 1 [facility] 0.6 mg 1-01 tablet by ity of tablet 00:00: mouth in [place] the Medical morning. Branch colchicine 2021-11 Yes [id number] .6mg Take 1 [facility] 0.6 mg 1-01 tablet by ity of tablet 00:00: mouth in [place] the Medical morning. Branch colchicine 2021-11 Yes [id number] .6mg Take 1 [facility] 0.6 mg 1-01 tablet by ity of tablet 00:00: mouth in [place] the Medical morning. Branch colchicine 2021-11 Yes [id number] .6mg Take 1 [facility] 0.6 mg 1-01 tablet by ity of tablet 00:00: mouth in [place] the Medical morning. Branch colchicine 2021-11 Yes [id number] .6mg Take 1 [facility] 0.6 mg 1-01 tablet by ity of tablet 00:00: mouth in [place] the Medical morning. Branch colchicine 2021-11 Yes [id number] .6mg Take 1 [facility] 0.6 mg 1-01 tablet by ity of tablet 00:00: mouth in [place] 00 the Medical morning. Branch colchicine 2021-11 Yes [id number] .6mg Take 1 [facility] 0.6 mg 1-01 tablet by ity of tablet 00:00: mouth in [place] the Medical morning. Branch colchicine 2021-11 Yes [id number] .6mg Take 1 [facility] 0.6 mg 1-01 tablet by ity of tablet 00:00: mouth in [place] the Medical morning. Branch colchicine 2021-11 Yes [id number] .6mg Take 1 [facility] 0.6 mg 1-01 tablet by ity of tablet 00:00: mouth in [place] the Medical morning. Branch colchicine 2021-11 Yes [id number] .6mg Take 1 [facility] 0.6 mg 1-01 tablet by ity of tablet 00:00: mouth in [place] the Medical morning. Branch colchicine 2021-11 Yes [id number] .6mg Take 1 [facility] 0.6 mg 1-01 tablet by ity of tablet 00:00: mouth in [place] the Medical morning. Branch colchicine 2021-11 Yes [id number] .6mg Take 1 [facility] 0.6 mg 1-01 tablet by ity of tablet 00:00: mouth in [place] the Medical morning. Branch colchicine 2021-11 Yes [id number] .6mg Take 1 [facility] 0.6 mg 1-01 tablet by ity of tablet 00:00: mouth in [place] the Medical morning. Branch colchicine 2021-11 Yes [id number] .6mg Take 1 [facility] 0.6 mg 1-01 tablet by ity of tablet 00:00: mouth in [place] the Medical morning. Branch colchicine 2021-11 Yes [id number] .6mg Take 1 [facility] 0.6 mg 1-01 tablet by ity of tablet 00:00: mouth in [place] 00 the Medical morning. Branch colchicine 2021-11 Yes [id number] .6mg Take 1 [facility] 0.6 mg 1-01 tablet by ity of tablet 00:00: mouth in [place] 00 the Medical morning. Branch colchicine 2021-11 Yes [id number] .6mg Take 1 [facility] 0.6 mg 1-01 tablet by ity of tablet 00:00: mouth in [place] 00 the Medical morning. Branch colchicine 2021- Yes [id number] .6mg Take 1 [facility] 0.6 mg 1-01 tablet by ity of tablet 00:00: mouth in [place] 00 the Medical morning. Branch colchicine 2021-11 Yes [id number] .6mg Take 1 [facility] 0.6 mg 1-01 tablet by ity of tablet 00:00: mouth in [place] 00 the Medical morning. Branch colchicine 2021-11 Yes [id number] .6mg Take 1 [facility] 0.6 mg 1-01 tablet by ity of tablet 00:00: mouth in [place] 00 the Medical morning. Branch colchicine 2021-11 Yes [id number] .6mg Take 1 [facility] 0.6 mg 1-01 tablet by ity of tablet 00:00: mouth in [place] 00 the Medical morning. Branch colchicine 2021-11 Yes [id number] .6mg Take 1 [facility] 0.6 mg 1-01 tablet by ity of tablet 00:00: mouth in [place] 00 the Medical morning. Branch colchicine 2021-11 Yes [id number] .6mg Take 1 [facility] 0.6 mg 1-01 tablet by ity of tablet 00:00: mouth in [place] 00 the Medical morning. Branch colchicine 2021-11 Yes [id number] .6mg Take 1 [facility] 0.6 mg 1-01 tablet by ity of tablet 00:00: mouth in [place] the Medical morning. Branch colchicine 2021-11 Yes [id number] .6mg Take 1 [facility] 0.6 mg 1-01 tablet by ity of tablet 00:00: mouth in [place] the Medical morning. Branch colchicine 2021-11 Yes [id number] .6mg Take 1 [facility] 0.6 mg 1-01 tablet by ity of tablet 00:00: mouth in [place] the Medical morning. Branch colchicine 2021-11 Yes [id number] .6mg Take 1 [facility] 0.6 mg 1-01 tablet by ity of tablet 00:00: mouth in [place] 00 the Medical morning. Branch colchicine 2021-11 Yes [id number] .6mg Take 1 [facility] 0.6 mg 1-01 tablet by ity of tablet 00:00: mouth in [place] 00 the Medical morning. Branch colchicine 2021-11 Yes [id number] .6mg Take 1 [facility] 0.6 mg 1-01 tablet by ity of tablet 00:00: mouth in [place] 00 the Medical morning. Branch colchicine 2021-11 Yes [id number] .6mg Take 1 [facility] 0.6 mg 1-01 tablet by ity of tablet 00:00: mouth in [place] 00 the Medical morning. Branch colchicine 2021-11 Yes [id number] .6mg Take 1 [facility] 0.6 mg 1-01 tablet by ity of tablet 00:00: mouth in [place] 00 the Medical morning. Branch colchicine 2021-11 Yes [id number] .6mg Take 1 [facility] 0.6 mg 1-01 tablet by ity of tablet 00:00: mouth in [place] 00 the Medical morning. Branch colchicine 2021-11 Yes [id number] .6mg Take 1 [facility] 0.6 mg 1-01 tablet by ity of tablet 00:00: mouth in [place] 00 the Medical morning. Branch colchicine 2021-11 Yes [id number] .6mg Take 1 [facility] 0.6 mg 1-01 tablet by ity of tablet 00:00: mouth in [place] 00 the Medical morning. Branch colchicine 2021-11 Yes [id number] .6mg Take 1 [facility] 0.6 mg 1-01 tablet by ity of tablet 00:00: mouth in [place] the Medical morning. Branch colchicine 2021-11 Yes [id number] .6mg Take 1 [facility] 0.6 mg 1-01 tablet by ity of tablet 00:00: mouth in [place] the Medical morning. Branch colchicine 2021-11 Yes [id number] .6mg Take 1 [facility] 0.6 mg 1-01 tablet by ity of tablet 00:00: mouth in [place] 00 the Medical morning. Branch colchicine 2021-11 Yes [id number] .6mg Take 1 [facility] 0.6 mg 1-01 tablet by ity of tablet 00:00: mouth in [place] 00 the Medical morning. Branch colchicine 2021-11 Yes [id number] .6mg Take 1 [facility] 0.6 mg 1-01 tablet by ity of tablet 00:00: mouth in [place] 00 the Medical morning. Branch colchicine 2021-11 Yes [id number] .6mg Take 1 [facility] 0.6 mg 1-01 tablet by ity of tablet 00:00: mouth in [place] 00 the Medical morning. Branch insulin NPH 2021-11- Yes [id number] 15U inject 15 [facility] and regular 11-23 12-02 Units ity of human 70-30 00:00: 05:59 under the [place] 100 unit/mL 00 :00 skin every Me dical (70-30) morning Branch injection and evening for 30 days. insulin NPH 2021-11- Yes [id number] 15U inject 15 [facility] and regular 11-23 12-02 Units ity of human 70-30 00:00: 05:59 under the [place] 100 unit/mL 00 :00 skin every Me dical (70-30) morning Branch injection and evening for 30 days. insulin NPH 2021-11- Yes [id number] 15U inject 15 [facility] and regular 11-23 12-02 Units ity of human 70-30 00:00: 05:59 under the [place] 100 unit/mL 00 :00 skin every Me dical (70-30) morning Branch injection and evening for 30 days. insulin NPH 2021-11- No [id number] 15U inject 15 [facility] and regular 11-23 11-07 Units ity of human 70-30 00:00: 00:00 under the [place] 100 unit/mL 00 :00 skin every Me dical (70-30) morning Branch injection and evening for 30 days. insulin NPH 2021-11- No [id number] 15U inject 15 [facility] and regular 11-23 11-07 Units ity of human 70-30 00:00: 00:00 under the [place] 100 unit/mL 00 :00 skin every Me dical (70-30) morning Branch injection and evening for 30 days. insulin 2021-11- No 10U 10 Units, Univ ers regular 0-31 10-31 IV Push, ity of human 21:00: 20:16 ONCE, 1 [place] (HUMULIN R) 00 :00 dose, On Medi johnathon injection Mon Branch 10 Units 09/22/22 at 1600, Routine
Indicatio n for insulin: Hyperglyce bentley ondansetron 2021-11- No 4mg 4 mg, Slow [facility] (ZOFRAN 0-31 10-31 IV Push, ity of (PF)) 20:57: 20:58 ONCE NOW, [place] injection 4 00 :00 1 dose, On Me dical mg Mon Branch 09/22/22 at 1600, DELFIN NaCl 0.9% 2021-11- No 500mL at 999 Univ ers (NS) bolus 0-31 10-31 mL/hr, 500 it y of infusion 19:10: 20:10 mL, IV [place] 500 mL 00 :00 Piggyback, [facility] ONCE, 1 Branch dose, On 09/22/22 at 1415, STAT Insulin 2021-11 Yes [id number] 10U inject 10 U nivers NPH-Regular 0-31 Units ity of Human Rec 00:00: under the [place] 100 unit/mL 00 skin 2 Medica l (70-30) (two) Branch injection times daily before breakfast and dinner. 150-199 take 1 unit 200-249 take 2 units 250-299 take 3 units 300-349 take 4 units Over 350 take 5 units aspirin 81 2021-11 Yes [id number] 81mg Take 1 [facility] mg chewable 0-31 tablet by ity of tablet 00:00: mouth in [place] 00 the Medical morning. Branch Insulin 2021-11 Yes [id number] 10U inject 10 U nivers NPH-Regular 0-31 Units ity of Human Rec 00:00: under the [place] 100 unit/mL 00 skin 2 Medica l (70-30) (two) Branch injection times daily before breakfast and dinner. 150-199 take 1 unit 200-249 take 2 units 250-299 take 3 units 300-349 take 4 units Over 350 take 5 units aspirin 81 2021-11 Yes [id number] 81mg Take 1 [facility] mg chewable 0-31 tablet by ity of tablet 00:00: mouth in [place] 00 the Medical morning. Branch Insulin 2021-11 Yes [id number] 10U inject 10 U nivers NPH-Regular 0-31 Units ity of Human Rec 00:00: under the [place] 100 unit/mL 00 skin 2 Medica l (70-30) (two) Branch injection times daily before breakfast and dinner. 150-199 take 1 unit 200-249 take 2 units 250-299 take 3 units 300-349 take 4 units Over 350 take 5 units aspirin 81 2021-11 Yes [id number] 81mg Take 1 [facility] mg chewable 0-31 tablet by ity of tablet 00:00: mouth in [place] 00 the Medical morning. Branch Insulin 2021-11 Yes [id number] 10U inject 10 U nivers NPH-Regular 0-31 Units ity of Human Rec 00:00: under the [place] 100 unit/mL 00 skin 2 Medica l (70-30) (two) Branch injection times daily before breakfast and dinner. 150-199 take 1 unit 200-249 take 2 units 250-299 take 3 units 300-349 take 4 units Over 350 take 5 units aspirin 81 2021-11 Yes [id number] 81mg Take 1 [facility] mg chewable 0-31 tablet by ity of tablet 00:00: mouth in [place] 00 the Medical morning. Branch Insulin 2021-11 Yes [id number] 10U inject 10 U nivers NPH-Regular 0-31 Units ity of Human Rec 00:00: under the [place] 100 unit/mL 00 skin 2 Medica l (70-30) (two) Branch injection times daily before breakfast and dinner. 150-199 take 1 unit 200-249 take 2 units 250-299 take 3 units 300-349 take 4 units Over 350 take 5 units aspirin 81 2021-11 Yes [id number] 81mg Take 1 [facility] mg chewable 0-31 tablet by ity of tablet 00:00: mouth in [place] 00 the Medical morning. Branch Insulin 2021-11 Yes [id number] 10U inject 10 U nivers NPH-Regular 0-31 Units ity of Human Rec 00:00: under the [place] 100 unit/mL 00 skin 2 Medica l (70-30) (two) Branch injection times daily before breakfast and dinner. 150-199 take 1 unit 200-249 take 2 units 250-299 take 3 units 300-349 take 4 units Over 350 take 5 units aspirin 81 2021-11 Yes [id number] 81mg Take 1 [facility] mg chewable 0-31 tablet by ity of tablet 00:00: mouth in [place] 00 the Medical morning. Branch Insulin 2021-11 Yes [id number] 10U inject 10 U nivers NPH-Regular 0-31 Units ity of Human Rec 00:00: under the [place] 100 unit/mL 00 skin 2 Medica l (70-30) (two) Branch injection times daily before breakfast and dinner. 150-199 take 1 unit 200-249 take 2 units 250-299 take 3 units 300-349 take 4 units Over 350 take 5 units aspirin 81 2021-11 Yes [id number] 81mg Take 1 [facility] mg chewable 0-31 tablet by ity of tablet 00:00: mouth in [place] 00 the Medical morning. Branch aspirin 81 2021-11 Yes [id number] 81mg Take 1 [facility] mg chewable 0-31 tablet by ity of tablet 00:00: mouth in [place] 00 the Medical morning. Branch aspirin 81 2021-11 Yes [id number] 81mg Take 1 [facility] mg chewable 0-31 tablet by ity of tablet 00:00: mouth in [place] 00 the Medical morning. Branch aspirin 81 2021-11 Yes [id number] 81mg Take 1 [facility] mg chewable 0-31 tablet by ity of tablet 00:00: mouth in [place] the Medical morning. Branch aspirin 81 2021-11 Yes [id number] 81mg Take 1 [facility] mg chewable 0-31 tablet by ity of tablet 00:00: mouth in [place] 00 the Medical morning. Branch aspirin 81 2021-11 Yes [id number] 81mg Take 1 [facility] mg chewable 0-31 tablet by ity of tablet 00:00: mouth in [place] 00 the Medical morning. Branch aspirin 81 2021-11 Yes [id number] 81mg Take 1 [facility] mg chewable 0-31 tablet by ity of tablet 00:00: mouth in [place] the Medical morning. Branch aspirin 81 2021-11 Yes [id number] 81mg Take 1 [facility] mg chewable 0-31 tablet by ity of tablet 00:00: mouth in [place] the Medical morning. Branch aspirin 81 2021-11 Yes [id number] 81mg Take 1 [facility] mg chewable 0-31 tablet by ity of tablet 00:00: mouth in [place] the Medical morning. Branch aspirin 81 2021-11 Yes [id number] 81mg Take 1 [facility] mg chewable 0-31 tablet by ity of tablet 00:00: mouth in [place] the Medical morning. Branch aspirin 81 2021-11 Yes [id number] 81mg Take 1 [facility] mg chewable 0-31 tablet by ity of tablet 00:00: mouth in [place] 00 the Medical morning. Branch aspirin 81 2021-11 Yes [id number] 81mg Take 1 [facility] mg chewable 0-31 tablet by ity of tablet 00:00: mouth in [place] 00 the Medical morning. Branch aspirin 81 2021-11 Yes [id number] 81mg Take 1 [facility] mg chewable 0-31 tablet by ity of tablet 00:00: mouth in [place] 00 the Medical morning. Branch aspirin 81 2021-11 Yes [id number] 81mg Take 1 [facility] mg chewable 0-31 tablet by ity of tablet 00:00: mouth in [place] 00 the Medical morning. Branch aspirin 81 2021-11 Yes [id number] 81mg Take 1 [facility] mg chewable 0-31 tablet by ity of tablet 00:00: mouth in [place] 00 the Medical morning. Branch aspirin 81 2021-11 Yes [id number] 81mg Take 1 [facility] mg chewable 0-31 tablet by ity of tablet 00:00: mouth in [place] 00 the Medical morning. Branch aspirin 81 2021-11 Yes [id number] 81mg Take 1 [facility] mg chewable 0-31 tablet by ity of tablet 00:00: mouth in [place] 00 the Medical morning. Branch aspirin 81 2021-11 Yes [id number] 81mg Take 1 [facility] mg chewable 0-31 tablet by ity of tablet 00:00: mouth in [place] 00 the Medical morning. Branch aspirin 81 2021-11 Yes [id number] 81mg Take 1 [facility] mg chewable 0-31 tablet by ity of tablet 00:00: mouth in [place] 00 the Medical morning. Branch aspirin 81 2021-11 Yes [id number] 81mg Take 1 [facility] mg chewable 0-31 tablet by ity of tablet 00:00: mouth in [place] the Medical morning. Branch aspirin 81 2021-11 Yes [id number] 81mg Take 1 [facility] mg chewable 0-31 tablet by ity of tablet 00:00: mouth in [place] the Medical morning. Branch aspirin 81 2021-11 Yes [id number] 81mg Take 1 [facility] mg chewable 0-31 tablet by ity of tablet 00:00: mouth in [place] 00 the Medical morning. Branch aspirin 81 2021-11 Yes [id number] 81mg Take 1 [facility] mg chewable 0-31 tablet by ity of tablet 00:00: mouth in [place] the Medical morning. Branch aspirin 81 2021-11 Yes [id number] 81mg Take 1 [facility] mg chewable 0-31 tablet by ity of tablet 00:00: mouth in [place] 00 the Medical morning. Branch aspirin 81 2021-11 Yes [id number] 81mg Take 1 [facility] mg chewable 0-31 tablet by ity of tablet 00:00: mouth in [place] 00 the Medical morning. Branch aspirin 81 2021-11 Yes [id number] 81mg Take 1 [facility] mg chewable 0-31 tablet by ity of tablet 00:00: mouth in [place] 00 the Medical morning. Branch aspirin 81 2021-11 Yes [id number] 81mg Take 1 [facility] mg chewable 0-31 tablet by ity of tablet 00:00: mouth in [place] 00 the Medical morning. Branch aspirin 81 2021-11 Yes [id number] 81mg Take 1 [facility] mg chewable 0-31 tablet by ity of tablet 00:00: mouth in [place] the Medical morning. Branch aspirin 81 2021-11 Yes [id number] 81mg Take 1 [facility] mg chewable 0-31 tablet by ity of tablet 00:00: mouth in [place] the Medical morning. Branch aspirin 81 2021-11 Yes [id number] 81mg Take 1 [facility] mg chewable 0-31 tablet by ity of tablet 00:00: mouth in [place] the Medical morning. Branch aspirin 81 2021-11 Yes [id number] 81mg Take 1 [facility] mg chewable 0-31 tablet by ity of tablet 00:00: mouth in [place] the Medical morning. Branch aspirin 81 2021-11 Yes [id number] 81mg Take 1 [facility] mg chewable 0-31 tablet by ity of tablet 00:00: mouth in [place] the Medical morning. Branch aspirin 81 2021-11 Yes [id number] 81mg Take 1 [facility] mg chewable 0-31 tablet by ity of tablet 00:00: mouth in [place] the Medical morning. Branch aspirin 81 2021-11 Yes [id number] 81mg Take 1 [facility] mg chewable 0-31 tablet by ity of tablet 00:00: mouth in [place] the Medical morning. Branch aspirin 81 2021-11 Yes [id number] 81mg Take 1 [facility] mg chewable 0-31 tablet by ity of tablet 00:00: mouth in [place] the Medical morning. Branch aspirin 81 2021-11 Yes [id number] 81mg Take 1 [facility] mg chewable 0-31 tablet by ity of tablet 00:00: mouth in [place] the Medical morning. Branch aspirin 81 2021-11 Yes [id number] 81mg Take 1 [facility] mg chewable 0-31 tablet by ity of tablet 00:00: mouth in [place] 00 the Medical morning. Branch aspirin 81 2021-11 Yes [id number] 81mg Take 1 [facility] mg chewable 0-31 tablet by ity of tablet 00:00: mouth in [place] 00 the Medical morning. Branch aspirin 81 2021-11 Yes [id number] 81mg Take 1 [facility] mg chewable 0-31 tablet by ity of tablet 00:00: mouth in [place] 00 the Medical morning. Branch aspirin 81 2021-11 Yes [id number] 81mg Take 1 [facility] mg chewable 0-31 tablet by ity of tablet 00:00: mouth in [place] the Medical morning. Branch aspirin 81 2021-11 Yes [id number] 81mg Take 1 [facility] mg chewable 0-31 tablet by ity of tablet 00:00: mouth in [place] the Medical morning. Branch aspirin 81 2021-11 Yes [id number] 81mg Take 1 [facility] mg chewable 0-31 tablet by ity of tablet 00:00: mouth in [place] 00 the Medical morning. Branch aspirin 81 2021-11 Yes [id number] 81mg Take 1 [facility] mg chewable 0-31 tablet by ity of tablet 00:00: mouth in [place] the Medical morning. Branch aspirin 81 2021-11 Yes [id number] 81mg Take 1 [facility] mg chewable 0-31 tablet by ity of tablet 00:00: mouth in [place] the Medical morning. Branch aspirin 81 2021-11 Yes [id number] 81mg Take 1 [facility] mg chewable 0-31 tablet by ity of tablet 00:00: mouth in [place] the Medical morning. Branch aspirin 81 2021-11 Yes [id number] 81mg Take 1 [facility] mg chewable 0-31 tablet by ity of tablet 00:00: mouth in [place] the Medical morning. Branch aspirin 81 2021-11 Yes [id number] 81mg Take 1 [facility] mg chewable 0-31 tablet by ity of tablet 00:00: mouth in [place] the Medical morning. Branch aspirin 81 2021-11 Yes [id number] 81mg Take 1 [facility] mg chewable 0-31 tablet by ity of tablet 00:00: mouth in [place] the Medical morning. Branch aspirin 81 2021-11 Yes [id number] 81mg Take 1 [facility] mg chewable 0-31 tablet by ity of tablet 00:00: mouth in [place] the Medical morning. Branch aspirin 81 2021-11 Yes [id number] 81mg Take 1 [facility] mg chewable 0-31 tablet by ity of tablet 00:00: mouth in [place] 00 the Medical morning. Branch aspirin 81 2021-11 Yes [id number] 81mg Take 1 [facility] mg chewable 0-31 tablet by ity of tablet 00:00: mouth in [place] 00 the Medical morning. Branch aspirin 81 2021-11 Yes [id number] 81mg Take 1 [facility] mg chewable 0-31 tablet by ity of tablet 00:00: mouth in [place] 00 the Medical morning. Branch aspirin 81 2021-11 Yes [id number] 81mg Take 1 [facility] mg chewable 0-31 tablet by ity of tablet 00:00: mouth in [place] 00 the Medical morning. Branch aspirin 81 2021-11 Yes [id number] 81mg Take 1 [facility] mg chewable 0-31 tablet by ity of tablet 00:00: mouth in [place] 00 the Medical morning. Branch Insulin 2021-11- No [id number] 10U inject 10 [facility] NPH-Regular 0-31 11-07 Units ity of Human Rec 00:00: 00:00 under the [place] 100 unit/mL 00 :00 skin 2 Medica l (70-30) (two) Branch injection times daily before breakfast and dinner. 150-199 take 1 unit 200-249 take 2 units 250-299 take 3 units 300-349 take 4 units Over 350 take 5 units Insulin 2021-11- No [id number] 10U inject 10 [facility] NPH-Regular 0-31 11-07 Units ity of Human Rec 00:00: 00:00 under the [place] 100 unit/mL 00 :00 skin 2 Medica l (70-30) (two) Branch injection times daily before breakfast and dinner. 150-199 take 1 unit 200-249 take 2 units 250-299 take 3 units 300-349 take 4 units Over 350 take 5 units allopurinoL 2021-11 Yes [id number] 100mg Take 1 [facility] 100 mg 0-26 tablet by ity of tablet 00:00: mouth in [place] the Medical morning. Branch flash 2021-11 Yes [id number] 1{each} inject 1 Un lesly glucose 0-26 Each under ity of sensor 00:00: the skin [place] (FREESTYLE 00 every 2 Medica l CHON 2 (two) Branch SENSOR) Kit weeks. allopurinoL 2021-11 Yes [id number] 100mg Take 1 [facility] 100 mg 0-26 tablet by ity of tablet 00:00: mouth in [place] 00 the Medical morning. Branch flash 2021-11 Yes [id number] 1{each} inject 1 Un lesly glucose 0-26 Each under ity of sensor 00:00: the skin [place] (FREESTYLE 00 every 2 Medica l CHON 2 (two) Branch SENSOR) Kit weeks. allopurinoL 2021-11 Yes [id number] 100mg Take 1 [facility] 100 mg 0-26 tablet by ity of tablet 00:00: mouth in [place] 00 the Medical morning. [place] flash 2021- Yes [id number] 1{each} inject 1 Un lesly glucose 0-26 Each under ity of sensor 00:00: the skin [place] (FREESTYLE 00 every 2 Medica l CHON 2 (two) Branch SENSOR) Kit weeks. allopurinoL 2021-11 Yes [id number] 100mg Take 1 [facility] 100 mg 0-26 tablet by ity of tablet 00:00: mouth in [place] 00 the Medical morning. Branch qi 2021- Yes [id number] 1{each} inject 1 Un lesly glucose 0-26 Each under ity of sensor 00:00: the [facility] (FREESTYLE 00 every 2 Medica l CHON 2 (two) Branch SENSOR) Kit weeks. allopurinoL 2021-11 Yes [id number] 100mg Take 1 [facility] 100 mg 0-26 tablet by ity of tablet 00:00: mouth in [place] 00 the Medical morning. [place] busby 2021- Yes [id number] 1{each} inject 1 Un lesly glucose 0-26 Each under ity of sensor 00:00: the [facility] (FREESTYLE 00 every 2 Medica l CHON 2 (two) Branch SENSOR) Kit weeks. allopurinoL 2021-11 Yes [id number] 100mg Take 1 [facility] 100 mg 0-26 tablet by ity of tablet 00:00: mouth in [place] 00 the Medical morning. [place] busby 2021- Yes [id number] 1{each} inject 1 Un lesly glucose 0-26 Each under ity of sensor 00:00: the skin [place] (FREESTYLE 00 every 2 Medica l CHON 2 (two) Branch SENSOR) Kit weeks. allopurinoL 2021-11 Yes [id number] 100mg Take 1 [facility] 100 mg 0-26 tablet by ity of tablet 00:00: mouth in [place] 00 the Medical morning. Branch flash 2021- Yes [id number] 1{each} inject 1 Un lesly glucose 0-26 Each under ity of sensor 00:00: the skin [place] (FREESTYLE 00 every 2 Medica l CHON 2 (two) Branch SENSOR) Kit weeks. allopurinoL 2021-11 Yes [id number] 100mg Take 1 [facility] 100 mg 0-26 tablet by ity of tablet 00:00: mouth in [place] 00 the Medical morning. Branch flash 2021-11 Yes [id number] 1{each} inject 1 Un lesly glucose 0-26 Each under ity of sensor 00:00: the [facility] (FREESTYLE 00 every 2 Medica l CHON 2 (two) Branch SENSOR) Kit weeks. allopurinoL 2021-11 Yes [id number] 100mg Take 1 [facility] 100 mg 0-26 tablet by ity of tablet 00:00: mouth in [place] 00 the Medical morning. Branch flash 2021-11 Yes [id number] 1{each} inject 1 Un lesly glucose 0-26 Each under ity of sensor 00:00: the [facility] (FREESTYLE 00 every 2 Medica l CHON 2 (two) Branch SENSOR) Kit weeks. allopurinoL 2021-11 Yes [id number] 100mg Take 1 [facility] 100 mg 0-26 tablet by ity of tablet 00:00: mouth in [place] 00 the Medical morning. Branch flash 2021-11 Yes [id number] 1{each} inject 1 Un lesly glucose 0-26 Each under ity of sensor 00:00: the [facility] (FREESTYLE 00 every 2 Medica l CHON 2 (two) Branch SENSOR) Kit weeks. allopurinoL 2021-11 Yes [id number] 100mg Take 1 [facility] 100 mg 0-26 tablet by ity of tablet 00:00: mouth in [place] 00 the Medical morning. Branch flash 2021- Yes [id number] 1{each} inject 1 Un lesly glucose 0-26 Each under ity of sensor 00:00: the [facility] (FREESTYLE 00 every 2 Medica l CHON 2 (two) Branch SENSOR) Kit weeks. allopurinoL 2021-11 Yes [id number] 100mg Take 1 [facility] 100 mg 0-26 tablet by ity of tablet 00:00: mouth in [place] 00 the Medical morning. Branch flash 2021- Yes [id number] 1{each} inject 1 Un lesly glucose 0-26 Each under ity of sensor 00:00: the skin [place] (FREESTYLE 00 every 2 Medica l CHON 2 (two) Branch SENSOR) Kit weeks. allopurinoL 2021-11 Yes [id number] 100mg Take 1 [facility] 100 mg 0-26 tablet by ity of tablet 00:00: mouth in [place] 00 the Medical morning. Branch flash 2021- Yes [id number] 1{each} inject 1 Un lesly glucose 0-26 Each under ity of sensor 00:00: the skin [place] (FREESTYLE 00 every 2 Medica l CHON 2 (two) Branch SENSOR) Kit weeks. allopurinoL 2021-11 Yes [id number] 100mg Take 1 [facility] 100 mg 0-26 tablet by ity of tablet 00:00: mouth in [place] 00 the Medical morning. Branch flash 2021- Yes [id number] 1{each} inject 1 Un lesly glucose 0-26 Each under ity of sensor 00:00: the skin [place] (FREESTYLE 00 every 2 Medica l CHON 2 (two) Branch SENSOR) Kit weeks. flash 2021- Yes [id number] 1{each} inject 1 Un lesly glucose 0-26 Each under ity of sensor 00:00: the skin [place] (FREESTYLE 00 every 2 Medica l CHON 2 (two) Branch SENSOR) Kit weeks. flash 2021- Yes [id number] 1{each} inject 1 Un lesly glucose 0-26 Each under ity of sensor 00:00: the skin [place] (FREESTYLE 00 every 2 Medica l CHON 2 (two) Branch SENSOR) Kit weeks. flash 2021- Yes [id number] 1{each} inject 1 Un lesly glucose 0-26 Each under ity of sensor 00:00: the skin [place] (FREESTYLE 00 every 2 Medica l CHON 2 (two) Branch SENSOR) Kit weeks. flash 2021- Yes [id number] 1{each} inject 1 Un lesly glucose 0-26 Each under ity of sensor 00:00: the skin [place] (FREESTYLE 00 every 2 Medica l CHON 2 (two) Branch SENSOR) Kit weeks. flash 2021- Yes [id number] 1{each} inject 1 Un lesly glucose 0-26 Each under ity of sensor 00:00: the skin [place] (FREESTYLE 00 every 2 Medica l CHON 2 (two) Branch SENSOR) Kit weeks. flash 2021- Yes [id number] 1{each} inject 1 Un lesly glucose 0-26 Each under ity of sensor 00:00: the skin [place] (FREESTYLE 00 every 2 Medica l CHON 2 (two) Branch SENSOR) Kit weeks. flash 2021- Yes [id number] 1{each} inject 1 Un lesly glucose 0-26 Each under ity of sensor 00:00: the skin [place] (FREESTYLE 00 every 2 Medica l CHON 2 (two) Branch SENSOR) Kit weeks. flash 2021- Yes [id number] 1{each} inject 1 Un lesly glucose 0-26 Each under ity of sensor 00:00: the skin [place] (FREESTYLE 00 every 2 Medica l CHON 2 (two) Branch SENSOR) Kit weeks. flash 2021- Yes [id number] 1{each} inject 1 Un lesly glucose 0-26 Each under ity of sensor 00:00: the skin [place] (FREESTYLE 00 every 2 Medica l COHN 2 (two) Branch SENSOR) Kit weeks. flash 2021- Yes [id number] 1{each} inject 1 Un lesly glucose 0-26 Each under ity of sensor 00:00: the skin [place] (FREESTYLE 00 every 2 Medica l CHON 2 (two) Branch SENSOR) Kit weeks. flash 2021- Yes [id number] 1{each} inject 1 Un lesly glucose 0-26 Each under ity of sensor 00:00: the skin [place] (FREESTYLE 00 every 2 Medica l CHON 2 (two) Branch SENSOR) Kit weeks. flash 2021- Yes [id number] 1{each} inject 1 Un lesly glucose 0-26 Each under ity of sensor 00:00: the skin [place] (FREESTYLE 00 every 2 Medica l CHON 2 (two) Branch SENSOR) Kit weeks. flash 2021- Yes [id number] 1{each} inject 1 Un lesly glucose 0-26 Each under ity of sensor 00:00: the skin [place] (FREESTYLE 00 every 2 Medica l CHON 2 (two) Branch SENSOR) Kit weeks. flash 2021- Yes [id number] 1{each} inject 1 Un lesly glucose 0-26 Each under ity of sensor 00:00: the skin [place] (FREESTYLE 00 every 2 Medica l CHON 2 (two) Branch SENSOR) Kit weeks. flash 2021- Yes [id number] 1{each} inject 1 Un lesly glucose 0-26 Each under ity of sensor 00:00: the skin [place] (FREESTYLE 00 every 2 Medica l CHON 2 (two) Branch SENSOR) Kit weeks. flash 2021- Yes [id number] 1{each} inject 1 Un lesly glucose 0-26 Each under ity of sensor 00:00: the skin [place] (FREESTYLE 00 every 2 Medica l CHON 2 (two) Branch SENSOR) Kit weeks. flash 2021-11 Yes [id number] 1{each} inject 1 Un lesly glucose 0-26 Each under ity of sensor 00:00: the skin [place] (FREESTYLE 00 every 2 Medica l CHON 2 (two) Branch SENSOR) Kit weeks. flash 2021-11 Yes [id number] 1{each} inject 1 Un lesly glucose 0-26 Each under ity of sensor 00:00: the skin [place] (FREESTYLE 00 every 2 Medica l CHON 2 (two) Branch SENSOR) Kit weeks. flash 2021-11 Yes [id number] 1{each} inject 1 Un lesly glucose 0-26 Each under ity of sensor 00:00: the skin [place] (FREESTYLE 00 every 2 Medica l CHON 2 (two) Branch SENSOR) Kit weeks. flash 2021- Yes [id number] 1{each} inject 1 Un lesly glucose 0-26 Each under ity of sensor 00:00: the skin [place] (FREESTYLE 00 every 2 Medica l CHON 2 (two) Branch SENSOR) Kit weeks. flash 2021- Yes [id number] 1{each} inject 1 Un lesly glucose 0-26 Each under ity of sensor 00:00: the skin [place] (FREESTYLE 00 every 2 Medica l CHON 2 (two) Branch SENSOR) Kit weeks. flash 2021- Yes [id number] 1{each} inject 1 Un lesly glucose 0-26 Each under ity of sensor 00:00: the skin [place] (FREESTYLE 00 every 2 Medica l CHON 2 (two) Branch SENSOR) Kit weeks. flash 2021- Yes [id number] 1{each} inject 1 Un lesly glucose 0-26 Each under ity of sensor 00:00: the skin [place] (FREESTYLE 00 every 2 Medica l CHON 2 (two) Branch SENSOR) Kit weeks. flash 2021- Yes [id number] 1{each} inject 1 Un lesly glucose 0-26 Each under ity of sensor 00:00: the skin [place] (FREESTYLE 00 every 2 Medica l CHON 2 (two) Branch SENSOR) Kit weeks. flash 2021- Yes [id number] 1{each} inject 1 Un lesly glucose 0-26 Each under ity of sensor 00:00: the skin [place] (FREESTYLE 00 every 2 Medica l CHON 2 (two) Branch SENSOR) Kit weeks. flash 2021- Yes [id number] 1{each} inject 1 Un lesly glucose 0-26 Each under ity of sensor 00:00: the skin [place] (FREESTYLE 00 every 2 Medica l CHON 2 (two) Branch SENSOR) Kit weeks. flash 2021- Yes [id number] 1{each} inject 1 Un lesly glucose 0-26 Each under ity of sensor 00:00: the skin [place] (FREESTYLE 00 every 2 Medica l CHON 2 (two) Branch SENSOR) Kit weeks. flash 2021- Yes [id number] 1{each} inject 1 Un lesly glucose 0-26 Each under ity of sensor 00:00: the skin [place] (FREESTYLE 00 every 2 Medica l CHON 2 (two) Branch SENSOR) Kit weeks. flash 2021- Yes [id number] 1{each} inject 1 Un lesly glucose 0-26 Each under ity of sensor 00:00: the skin [place] (FREESTYLE 00 every 2 Medica l CHON 2 (two) Branch SENSOR) Kit weeks. flash 2021- Yes [id number] 1{each} inject 1 Un lesly glucose 0-26 Each under ity of sensor 00:00: the skin [place] (FREESTYLE 00 every 2 Medica l CHON 2 (two) Branch SENSOR) Kit weeks. flash 2021- Yes [id number] 1{each} inject 1 Un lesly glucose 0-26 Each under ity of sensor 00:00: the skin [place] (FREESTYLE 00 every 2 Medica l CHON 2 (two) Branch SENSOR) Kit weeks. flash 2021- Yes [id number] 1{each} inject 1 Un lesly glucose 0-26 Each under ity of sensor 00:00: the skin [place] (FREESTYLE 00 every 2 Medica l HCON 2 (two) Branch SENSOR) Kit weeks. flash 2021-11 Yes [id number] 1{each} inject 1 Un lesly glucose 0-26 Each under ity of sensor 00:00: the skin [place] (FREESTYLE 00 every 2 Medica l CHON 2 (two) Branch SENSOR) Kit weeks. flash 2021- Yes [id number] 1{each} inject 1 Un lesly glucose 0-26 Each under ity of sensor 00:00: the skin [place] (FREESTYLE 00 every 2 Medica l CHON 2 (two) Branch SENSOR) Kit weeks. flash 2021- Yes [id number] 1{each} inject 1 Un lesly glucose 0-26 Each under ity of sensor 00:00: the skin [place] (FREESTYLE 00 every 2 Medica l CHON 2 (two) Branch SENSOR) Kit weeks. flash 2021-11 Yes [id number] 1{each} inject 1 Un lesly glucose 0-26 Each under ity of sensor 00:00: the skin [place] (FREESTYLE 00 every 2 Medica l CHON 2 (two) Branch SENSOR) Kit weeks. flash 2021-11 Yes [id number] 1{each} inject 1 Un lesly glucose 0-26 Each under ity of sensor 00:00: the skin [place] (FREESTYLE 00 every 2 Medica l CHON 2 (two) Branch SENSOR) Kit weeks. flash 2021- Yes [id number] 1{each} inject 1 Un lesly glucose 0-26 Each under ity of sensor 00:00: the skin [place] (FREESTYLE 00 every 2 Medica l CHON 2 (two) Branch SENSOR) Kit weeks. flash 2021- Yes [id number] 1{each} inject 1 Un lesly glucose 0-26 Each under ity of sensor 00:00: the skin [place] (FREESTYLE 00 every 2 Medica l CHON 2 (two) Branch SENSOR) Kit weeks. flash 2021- Yes [id number] 1{each} inject 1 Un lesly glucose 0-26 Each under ity of sensor 00:00: the skin [place] (FREESTYLE 00 every 2 Medica l CHON 2 (two) Branch SENSOR) Kit weeks. flash 2021- Yes [id number] 1{each} inject 1 Un lesly glucose 0-26 Each under ity of sensor 00:00: the skin [place] (FREESTYLE 00 every 2 Medica l CHON 2 (two) Branch SENSOR) Kit weeks. flash 2021- Yes [id number] 1{each} inject 1 Un lesly glucose 0-26 Each under ity of sensor 00:00: the skin [place] (FREESTYLE 00 every 2 Medica l CHON 2 (two) Branch SENSOR) Kit weeks. flash 2021- Yes [id number] 1{each} inject 1 Un lesly glucose 0-26 Each under ity of sensor 00:00: the skin [place] (FREESTYLE 00 every 2 Medica l CHON 2 (two) Branch SENSOR) Kit weeks. flash 2021- Yes [id number] 1{each} inject 1 Un lesly glucose 0-26 Each under ity of sensor 00:00: the skin [place] (FREESTYLE 00 every 2 Medica l CHON 2 (two) Branch SENSOR) Kit weeks. flash 2021-11 Yes [id number] 1{each} inject 1 Un lesly glucose 0-26 Each under ity of sensor 00:00: the skin [place] (FREESTYLE 00 every 2 Medica l CHON 2 (two) Branch SENSOR) Kit weeks. flash 2021- Yes [id number] 1{each} inject 1 Un lesly glucose 0-26 Each under ity of sensor 00:00: the skin [place] (FREESTYLE 00 every 2 Medica l CHON 2 (two) Branch SENSOR) Kit weeks. flash 2021- Yes [id number] 1{each} inject 1 Un lesly glucose 0-26 Each under ity of sensor 00:00: the skin [place] (FREESTYLE 00 every 2 Medica l CHON 2 (two) Branch SENSOR) Kit weeks. flash 2021- Yes [id number] 1{each} inject 1 Un lesly glucose 0-26 Each under ity of sensor 00:00: the skin [place] (FREESTYLE 00 every 2 Medica l CHON 2 (two) Branch SENSOR) Kit weeks. flash 2021- Yes [id number] 1{each} inject 1 Un lesly glucose 0-26 Each under ity of sensor 00:00: the skin [place] (FREESTYLE 00 every 2 Medica l CHON 2 (two) Branch SENSOR) Kit weeks. flash 2021-11 Yes [id number] 1{each} inject 1 Un lesly glucose 0-26 Each under ity of sensor 00:00: the skin [place] (FREESTYLE 00 every 2 Medica l CHON 2 (two) Branch SENSOR) Kit weeks. flash 2021-11 Yes [id number] 1{each} inject 1 Un lesly glucose 0-26 Each under ity of sensor 00:00: the skin [place] (FREESTYLE 00 every 2 Medica l CHON 2 (two) Branch SENSOR) Kit weeks. flash 2021-11 Yes [id number] 1{each} inject 1 Un lesly glucose 0-26 Each under ity of sensor 00:00: the skin [place] (FREESTYLE 00 every 2 Medica l CHON 2 (two) Branch SENSOR) Kit weeks. flash 2021-11 Yes [id number] 1{each} inject 1 Un lesly glucose 0-26 Each under ity of sensor 00:00: the [facility] (FREESTYLE 00 every 2 Medica l CHON 2 (two) Branch SENSOR) Kit weeks. allopurinoL 2021-11- No [id number] 100mg Take 1 [facility] 100 mg 0-26 11-07 tablet by ity of tablet 00:00: 00:00 mouth in [place] 00 :00 the Medical morning. Branch allopurinoL 2021-11- No [id number] 100mg Take 1 [facility] 100 mg 0-26 11-07 tablet by ity of tablet 00:00: 00:00 mouth in [place] 00 :00 the Medical morning. Branch furosemide 2021-11 Yes [id number] 80mg Take 2 [facility] (LASIX) 40 0-25 02 tablets by ity of mg tablet 00:00: mouth [place] 00 every Medical morning Branch and evening. furosemide 2021-11 Yes [id number] 80mg Take 2 [facility] (LASIX) 40 0-25 02 tablets by ity of mg tablet 00:00: mouth [place] 00 every Medical morning Branch and evening. KCL 20 mEq 2021-11 Yes [id number] 20meq Take 1 [facility] tablet 0-25 tablet by ity of 00:00: mouth in [place] 00 the Medical morning. Branch metoprolol 2021-11 Yes [id number] 50mg Take 1 U nivers succinate 0-25 tablet by ity o f XL 50 mg 24 00:00: mouth in [place] hr tablet 00 the Medical morning. Branch levothyroxi 2021-11 Yes [id number] 150ug Take 1 [facility] ne 150 mcg 0-25 tablet by ity of tablet 00:00: mouth [place] 00 every Medical morning. Branch cetirizine 2021-11 Yes [id number] 10mg Take 1 [facility] (ALLERGY 0-25 tablet by ity of RELIEF, 00:00: [facility] [place] [facility] ) 10 mg morning. Branch tablet furosemide 2021-11 Yes [id number] 80mg Take 2 [facility] (LASIX) 40 0-25 02 tablets by ity of mg tablet 00:00: mouth [place] 00 every Medical morning Branch and evening. empaglifloz 2021-11 Yes [id number] 10mg Take 1 [facility] in 0-25 tablet by ity of (JARDIANCE) 00:00: mouth [place] 10 mg 00 every Medical morning. Branch pantoprazol 2021-11 Yes [id number] 40mg Take 1 [facility] e 40 mg EC 0-25 tablet by ity of tablet 00:00: mouth in [place] 00 the Medical morning Branch and 1 tablet in the evening. KCL 20 mEq 2021-11 Yes [id number] 20meq Take 1 [facility] tablet 0-25 tablet by ity of 00:00: mouth in [place] the Medical morning. Branch metoprolol 2021-11 Yes [id number] 50mg Take 1 U nivers succinate 0-25 tablet by ity o f XL 50 mg 24 00:00: mouth in [place] hr tablet 00 the Medical morning. Branch levothyroxi 2021-11 Yes [id number] 150ug Take 1 [facility] ne 150 mcg 0-25 tablet by ity of tablet 00:00: mouth [place] 00 every Medical morning. Branch cetirizine 2021-11 Yes [id number] 10mg Take 1 [facility] nivers (ALLERGY 0-25 tablet by ity of RELIEF, 00:00: mouth [facility] [place] [facility] ) 10 mg morning. Branch tablet furosemide 2021-11 Yes [id number] 80mg Take 2 [facility] (LASIX) 40 0-25 02 tablets by ity of mg tablet 00:00: mouth [place] 00 every Medical morning Branch and evening. empaglifloz 2021-11 Yes [id number] 10mg Take 1 [facility] in 0-25 tablet by ity of (JARDIANCE) 00:00: mouth [place] 10 mg 00 every Medical morning. Branch pantoprazol 2021-11 Yes [id number] 40mg Take 1 [facility] e 40 mg EC 0-25 tablet by ity of tablet 00:00: mouth in [place] 00 the Medical morning Branch and 1 tablet in the evening. KCL 20 mEq 2021-11 Yes [id number] 20meq Take 1 [facility] tablet 0-25 tablet by ity of 00:00: mouth in [place] 00 the Medical morning. Branch metoprolol 2021-11 Yes [id number] 50mg Take 1 U nivers succinate 0-25 tablet by ity o f XL 50 mg 24 00:00: mouth in [place] hr tablet 00 the Medical morning. Branch levothyroxi 2021-11 Yes [id number] 150ug Take 1 [facility] ne 150 mcg 0-25 tablet by ity of tablet 00:00: mouth [place] 00 every Medical morning. Branch cetirizine 2021-11 Yes [id number] 10mg Take 1 [facility] nivers (ALLERGY 0-25 tablet by ity of RELIEF, 00:00: mouth in [place] [facility], 00 the Medical ) 10 mg morning. Branch tablet furosemide 2021-11 Yes [id number] 80mg Take 2 [facility] (LASIX) 40 0-25 02 tablets by ity of mg tablet 00:00: mouth [place] 00 every Medical morning Branch and evening. empaglifloz 2021-11 Yes [id number] 10mg Take 1 [facility] in 0-25 tablet by ity of (JARDIANCE) 00:00: mouth [place] 10 mg 00 every Medical morning. Branch pantoprazol 2021-11 Yes [id number] 40mg Take 1 [facility] e 40 mg EC 0-25 tablet by ity of tablet 00:00: mouth in [place] 00 the Medical morning Branch and 1 tablet in the evening. KCL 20 mEq 2021-11 Yes [id number] 20meq Take 1 [facility] tablet 0-25 tablet by ity of 00:00: mouth in [place] 00 the Medical morning. Branch metoprolol 2021-11 Yes [id number] 50mg Take 1 U nivers succinate 0-25 tablet by ity o f XL 50 mg 24 00:00: mouth in [place] hr tablet 00 the Medical morning. Branch levothyroxi 2021-11 Yes [id number] 150ug Take 1 [facility] ne 150 mcg 0-25 tablet by ity of tablet 00:00: mouth [place] 00 every Medical morning. Branch cetirizine 2021-11 Yes [id number] 10mg Take 1 [facility] nivers (ALLERGY 0-25 tablet by ity of RELIEF, 00:00: mouth in [place] CETIRIZINE, 00 the Medical ) 10 mg morning. Branch tablet furosemide 2021-11 Yes [id number] 80mg Take 2 [facility] (LASIX) 40 0-25 02 tablets by ity of mg tablet 00:00: mouth [place] 00 every Medical morning Branch and evening. empaglifloz 2021-11 Yes [id number] 10mg Take 1 [facility] in 0-25 tablet by ity of (JARDIANCE) 00:00: mouth [place] 10 mg 00 every Medical morning. Branch pantoprazol 2021-11 Yes [id number] 40mg Take 1 [facility] e 40 mg EC 0-25 tablet by ity of tablet 00:00: mouth in [place] 00 the Medical morning Branch and 1 tablet in the evening. KCL 20 mEq 2021-11 Yes [id number] 20meq Take 1 [facility] tablet 0-25 tablet by ity of 00:00: mouth in [place] 00 the Medical morning. Branch metoprolol 2021-11 Yes [id number] 50mg Take 1 U nivers succinate 0-25 tablet by ity o f XL 50 mg 24 00:00: mouth in [place] hr tablet 00 the Medical morning. Branch levothyroxi 2021-11 Yes [id number] 150ug Take 1 [facility] ne 150 mcg 0-25 tablet by ity of tablet 00:00: mouth [place] 00 every Medical morning. Branch cetirizine 2021-11 Yes [id number] 10mg Take 1 [facility] nivers (ALLERGY 0-25 tablet by ity of RELIEF, 00:00: mouth in [place] CETIRIZINE, 00 the Medical ) 10 mg morning. Branch tablet furosemide 2021-11 Yes [id number] 80mg Take 2 [facility] (LASIX) 40 0-25 02 tablets by ity of mg tablet 00:00: mouth [place] 00 every Medical morning Branch and evening. empaglifloz 2021-11 Yes [id number] 10mg Take 1 [facility] in 0-25 tablet by ity of (JARDIANCE) 00:00: mouth [place] 10 mg 00 every Medical morning. Branch pantoprazol 2021-11 Yes [id number] 40mg Take 1 [facility] e 40 mg EC 0-25 tablet by ity of tablet 00:00: mouth in [place] the Medical morning Branch and 1 tablet in the evening. KCL 20 mEq 2021-11 Yes [id number] 20meq Take 1 [facility] tablet 0-25 tablet by ity of 00:00: mouth in [place] the Medical morning. Branch metoprolol 2021-11 Yes [id number] 50mg Take 1 U nivers succinate 0-25 tablet by ity o f XL 50 mg 24 00:00: mouth in [place] hr tablet 00 the Medical morning. Branch levothyroxi 2021-11 Yes [id number] 150ug Take 1 [facility] ne 150 mcg 0-25 tablet by ity of tablet 00:00: mouth [place] 00 every Medical morning. Branch cetirizine 2021-11 Yes [id number] 10mg Take 1 U nivers (ALLERGY 0-25 tablet by ity of RELIEF, 00:00: mouth in [place] CETIRIZINE, 00 the Medical ) 10 mg morning. Branch tablet furosemide 2021-11 Yes [id number] 80mg Take 2 [facility] (LASIX) 40 0-25 02 tablets by ity of mg tablet 00:00: mouth [place] 00 every Medical morning Branch and evening. empaglifloz 2021-11 Yes [id number] 10mg Take 1 [facility] in 0-25 tablet by ity of (JARDIANCE) 00:00: mouth [place] 10 mg 00 every Medical morning. Branch pantoprazol 2021-11 Yes [id number] 40mg Take 1 [facility] e 40 mg EC 0-25 tablet by ity of tablet 00:00: mouth in [place] the Medical morning Branch and 1 tablet in the evening. KCL 20 mEq 2021-11 Yes [id number] 20meq Take 1 [facility] tablet 0-25 tablet by ity of 00:00: mouth in [place] the Medical morning. Branch metoprolol 2021-11 Yes [id number] 50mg Take 1 U nivers succinate 0-25 tablet by ity o f XL 50 mg 24 00:00: mouth in [place] hr tablet 00 the Medical morning. Branch levothyroxi 2021-11 Yes [id number] 150ug Take 1 [facility] ne 150 mcg 0-25 tablet by ity of tablet 00:00: mouth [place] 00 every Medical morning. Branch cetirizine 2021-11 Yes [id number] 10mg Take 1 U nivers (ALLERGY 0-25 tablet by ity of RELIEF, 00:00: mouth in [place] CETIRIZINE, 00 the Medical ) 10 mg morning. Branch tablet furosemide 2021-11 Yes [id number] 80mg Take 2 [facility] (LASIX) 40 0-25 02 tablets by ity of mg tablet 00:00: mouth [place] 00 every Medical morning Branch and evening. empaglifloz 2021-11 Yes [id number] 10mg Take 1 [facility] in 0-25 tablet by ity of (JARDIANCE) 00:00: mouth [place] 10 mg 00 every Medical morning. Branch pantoprazol 2021-11 Yes [id number] 40mg Take 1 [facility] e 40 mg EC 0-25 tablet by ity of tablet 00:00: mouth in [place] 00 the Medical morning Branch and 1 tablet in the evening. KCL 20 mEq 2021-11 Yes [id number] 20meq Take 1 [facility] tablet 0-25 tablet by ity of 00:00: mouth in [place] 00 the Medical morning. Branch metoprolol 2021-11 Yes [id number] 50mg Take 1 U nivers succinate 0-25 tablet by ity o f XL 50 mg 24 00:00: mouth in [place] hr tablet 00 the Medical morning. Branch levothyroxi 2021-11 Yes [id number] 150ug Take 1 [facility] ne 150 mcg 0-25 tablet by ity of tablet 00:00: mouth [place] 00 every Medical morning. Branch cetirizine 2021-11 Yes [id number] 10mg Take 1 U nivers (ALLERGY 0-25 tablet by ity of RELIEF, 00:00: mouth in [place] CETIRIZINE, 00 the Medical ) 10 mg morning. Branch tablet furosemide 2021-11 Yes [id number] 80mg Take 2 [facility] (LASIX) 40 0-25 02 tablets by ity of mg tablet 00:00: mouth [place] 00 every Medical morning Branch and evening. empaglifloz 2021-11 Yes [id number] 10mg Take 1 [facility] in 0-25 tablet by ity of (JARDIANCE) 00:00: mouth [place] 10 mg 00 every Medical morning. Branch pantoprazol 2021-11 Yes [id number] 40mg Take 1 [facility] e 40 mg EC 0-25 tablet by ity of tablet 00:00: mouth in [place] 00 the Medical morning Branch and 1 tablet in the evening. KCL 20 mEq 2021-11 Yes [id number] 20meq Take 1 [facility] tablet 0-25 tablet by ity of 00:00: mouth in [place] 00 the Medical morning. Branch metoprolol 2021-11 Yes [id number] 50mg Take 1 U nivers succinate 0-25 tablet by ity o f XL 50 mg 24 00:00: mouth in [place] hr tablet 00 the Medical morning. Branch levothyroxi 2021-11 Yes [id number] 150ug Take 1 [facility] ne 150 mcg 0-25 tablet by ity of tablet 00:00: mouth [place] 00 every Medical morning. Branch cetirizine 2021-11 Yes [id number] 10mg Take 1 U nivers (ALLERGY 0-25 tablet by ity of RELIEF, 00:00: mouth in [place] CETIRIZINE, 00 the Medical ) 10 mg morning. Branch tablet furosemide 2021-11 Yes [id number] 80mg Take 2 [facility] (LASIX) 40 0-25 02 tablets by ity of mg tablet 00:00: mouth [place] 00 every Medical morning Branch and evening. empaglifloz 2021-11 Yes [id number] 10mg Take 1 [facility] in 0-25 tablet by ity of (JARDIANCE) 00:00: mouth [place] 10 mg 00 every Medical morning. Branch pantoprazol 2021-11 Yes [id number] 40mg Take 1 [facility] e 40 mg EC 0-25 tablet by ity of tablet 00:00: mouth in [place] 00 the Medical morning Branch and 1 tablet in the evening. KCL 20 mEq 2021-11 Yes [id number] 20meq Take 1 [facility] tablet 0-25 tablet by ity of 00:00: mouth in [place] 00 the Medical morning. Branch metoprolol 2021-11 Yes [id number] 50mg Take 1 U nivers succinate 0-25 tablet by ity o f XL 50 mg 24 00:00: mouth in [place] hr tablet 00 the Medical morning. Branch levothyroxi 2021-11 Yes [id number] 150ug Take 1 [facility] ne 150 mcg 0-25 tablet by ity of tablet 00:00: mouth [place] 00 every Medical morning. Branch cetirizine 2021-11 Yes [id number] 10mg Take 1 U nivers (ALLERGY 0-25 tablet by ity of RELIEF, 00:00: mouth in [place] [facility], the [facility] ) 10 mg morning. Branch tablet furosemide 2021-11 Yes [id number] 80mg Take 2 [facility] (LASIX) 40 0-25 02 tablets by ity of mg tablet 00:00: mouth [place] 00 every Medical morning Branch and evening. empaglifloz 2021-11 Yes [id number] 10mg Take 1 [facility] in 0-25 tablet by ity of (JARDIANCE) 00:00: mouth [place] 10 mg 00 every Medical morning. Branch pantoprazol 2021-11 Yes [id number] 40mg Take 1 [facility] e 40 mg EC 0-25 tablet by ity of tablet 00:00: mouth in [place] 00 the Medical morning Branch and 1 tablet in the evening. KCL 20 mEq 2021-11 Yes [id number] 20meq Take 1 [facility] tablet 0-25 tablet by ity of 00:00: mouth in [place] 00 the Medical morning. Branch metoprolol 2021-11 Yes [id number] 50mg Take 1 U nivers succinate 0-25 tablet by ity o f XL 50 mg 24 00:00: mouth in [place] hr tablet 00 the Medical morning. Branch levothyroxi 2021-11 Yes [id number] 150ug Take 1 [facility] ne 150 mcg 0-25 tablet by ity of tablet 00:00: mouth [place] 00 every Medical morning. Branch cetirizine 2021-11 Yes [id number] 10mg Take 1 U nivers (ALLERGY 0-25 tablet by ity of RELIEF, 00:00: mouth in [place] [facility]IR[facility], the [facility] ) 10 mg morning. Branch tablet furosemide 2021-11 Yes [id number] 80mg Take 2 [facility] (LASIX) 40 0-25 02 tablets by ity of mg tablet 00:00: mouth [place] 00 every Medical morning Branch and evening. empaglifloz 2021-11 Yes [id number] 10mg Take 1 [facility] in 0-25 tablet by ity of (JARDIANCE) 00:00: mouth [place] 10 mg 00 every Medical morning. Branch pantoprazol 2021-11 Yes [id number] 40mg Take 1 [facility] e 40 mg EC 0-25 tablet by ity of tablet 00:00: mouth in [place] 00 the Medical morning Branch and 1 tablet in the evening. KCL 20 mEq 2021-11 Yes [id number] 20meq Take 1 [facility] tablet 0-25 tablet by ity of 00:00: mouth in [place] 00 the Medical morning. Branch metoprolol 2021-11 Yes [id number] 50mg Take 1 U nivers succinate 0-25 tablet by ity o f XL 50 mg 24 00:00: mouth in [place] hr tablet 00 the Medical morning. Branch levothyroxi 2021-11 Yes [id number] 150ug Take 1 [facility] ne 150 mcg 0-25 tablet by ity of tablet 00:00: mouth [place] 00 every Medical morning. Branch cetirizine 2021-11 Yes [id number] 10mg Take 1 U nivers (ALLERGY 0-25 tablet by ity of RELIEF, 00:00: mouth in [place] CETIRIZINE, 00 the Medical ) 10 mg morning. Branch tablet furosemide 2021-11 Yes [id number] 80mg Take 2 [facility] (LASIX) 40 0-25 02 tablets by ity of mg tablet 00:00: mouth [place] 00 every Medical morning Branch and evening. empaglifloz 2021-11 Yes [id number] 10mg Take 1 [facility] in 0-25 tablet by ity of (JARDIANCE) 00:00: mouth [place] 10 mg 00 every Medical morning. Branch pantoprazol 2021-11 Yes [id number] 40mg Take 1 [facility] e 40 mg EC 0-25 tablet by ity of tablet 00:00: mouth in [place] the Medical morning Branch and 1 tablet in the evening. KCL 20 mEq 2021-11 Yes [id number] 20meq Take 1 [facility] tablet 0-25 tablet by ity of 00:00: mouth in [place] 00 the Medical morning. Branch metoprolol 2021-11 Yes [id number] 50mg Take 1 U nivers succinate 0-25 tablet by ity o f XL 50 mg 24 00:00: mouth in [place] hr tablet 00 the Medical morning. Branch levothyroxi 2021-11 Yes [id number] 150ug Take 1 [facility] ne 150 mcg 0-25 tablet by ity of tablet 00:00: mouth [place] 00 every Medical morning. Branch cetirizine 2021-11 Yes [id number] 10mg Take 1 U nivers (ALLERGY 0-25 tablet by ity of RELIEF, 00:00: mouth in [place] CETIRIZINE, 00 the Medical ) 10 mg morning. Branch tablet furosemide 2021-11 Yes [id number] 80mg Take 2 [facility] (LASIX) 40 0-25 02 tablets by ity of mg tablet 00:00: mouth [place] 00 every Medical morning Branch and evening. empaglifloz 2021-11 Yes [id number] 10mg Take 1 [facility] in 0-25 tablet by ity of (JARDIANCE) 00:00: mouth [place] 10 mg 00 every Medical morning. Branch pantoprazol 2021-11 Yes [id number] 40mg Take 1 [facility] e 40 mg EC 0-25 tablet by ity of tablet 00:00: mouth in [place] 00 the Medical morning Branch and 1 tablet in the evening. KCL 20 mEq 2021-11 Yes [id number] 20meq Take 1 [facility] tablet 0-25 tablet by ity of 00:00: mouth in [place] 00 the Medical morning. Branch metoprolol 2021-11 Yes [id number] 50mg Take 1 U nivers succinate 0-25 tablet by ity o f XL 50 mg 24 00:00: mouth in [place] hr tablet 00 the Medical morning. Branch levothyroxi 2021-11 Yes [id number] 150ug Take 1 [facility] ne 150 mcg 0-25 tablet by ity of tablet 00:00: mouth [place] 00 every Medical morning. Branch cetirizine 2021-11 Yes [id number] 10mg Take 1 [facility] nivers (ALLERGY 0-25 tablet by ity of RELIEF, 00:00: mouth in [place] [facility], the [facility] ) 10 mg morning. Branch tablet furosemide 2021-11 Yes [id number] 80mg Take 2 [facility] (LASIX) 40 0-25 02 tablets by ity of mg tablet 00:00: mouth [place] 00 every Medical morning Branch and evening. empaglifloz 2021-11 Yes [id number] 10mg Take 1 [facility] in 0-25 tablet by ity of (JARDIANCE) 00:00: mouth [place] 10 mg 00 every Medical morning. Branch pantoprazol 2021-11 Yes [id number] 40mg Take 1 [facility] e 40 mg EC 0-25 tablet by ity of tablet 00:00: mouth in [place] 00 the Medical morning Branch and 1 tablet in the evening. KCL 20 mEq 2021-11 Yes [id number] 20meq Take 1 [facility] tablet 0-25 tablet by ity of 00:00: mouth in [place] 00 the Medical morning. Branch metoprolol 2021-11 Yes [id number] 50mg Take 1 U nivers succinate 0-25 tablet by ity o f XL 50 mg 24 00:00: mouth in [place] hr tablet 00 the Medical morning. Branch levothyroxi 2021-11 Yes [id number] 150ug Take 1 [facility] ne 150 mcg 0-25 tablet by ity of tablet 00:00: mouth [place] 00 every Medical morning. Branch cetirizine 2021-11 Yes [id number] 10mg Take 1 [facility] nivers (ALLERGY 0-25 tablet by ity of RELIEF, 00:00: mouth in [place] CETIRIZINE, the Medical ) 10 mg morning. Branch tablet furosemide 2021-11 Yes [id number] 80mg Take 2 [facility] (LASIX) 40 0-25 02 tablets by ity of mg tablet 00:00: mouth [place] 00 every Medical morning Branch and evening. empaglifloz 2021-11 Yes [id number] 10mg Take 1 [facility] in 0-25 tablet by ity of (JARDIANCE) 00:00: mouth [place] 10 mg 00 every Medical morning. Branch pantoprazol 2021-11 Yes [id number] 40mg Take 1 [facility] e 40 mg EC 0-25 tablet by ity of tablet 00:00: mouth in [place] 00 the Medical morning Branch and 1 tablet in the evening. KCL 20 mEq 2021-11 Yes [id number] 20meq Take 1 [facility] tablet 0-25 tablet by ity of 00:00: mouth in [place] the Medical morning. Branch metoprolol 2021-11 Yes [id number] 50mg Take 1 U nivers succinate 0-25 tablet by ity o f XL 50 mg 24 00:00: mouth in [place] hr tablet 00 the Medical morning. Branch levothyroxi 2021-11 Yes [id number] 150ug Take 1 [facility] ne 150 mcg 0-25 tablet by ity of tablet 00:00: mouth [place] 00 every Medical morning. Branch cetirizine 2021-11 Yes [id number] 10mg Take 1 [facility] (ALLERGY 0-25 tablet by ity of RELIEF, 00:00: mouth in [place] CETIRIZINE, 00 the [facility] ) 10 mg morning. Branch tablet cetirizine 2021-11 Yes [id number] 10mg Take 1 [facility] (ALLERGY 0-25 tablet by ity of RELIEF, 00:00: mouth in [place] CETIRIZINE, the [facility] ) 10 mg morning. Branch tablet cetirizine 2021-11 Yes [id number] 10mg Take 1 [facility] n[facility] (ALLERGY 0-25 tablet by ity of RELIEF, 00:00: mouth in [place] CETIRIZINE, the [facility] ) 10 mg morning. Branch tablet cetirizine 2021-11 Yes [id number] 10mg Take 1 [facility]ivers (ALLERGY 0-25 tablet by ity of RELIEF, 00:00: mouth in [place] CETIRIZINE, the [facility] ) 10 mg morning. Branch tablet cetirizine 2021-11 Yes [id number] 10mg Take 1 [facility] n[facility] (ALLERGY 0-25 tablet by ity of RELIEF, 00:00: mouth in [place] CETIRIZINE, the [facility] ) 10 mg morning. Branch tablet cetirizine 2021-11 Yes [id number] 10mg Take 1 [facility]ivers (ALLERGY 0-25 tablet by ity of RELIEF, 00:00: mouth in [place] CETIRIZINE, the [facility] ) 10 mg morning. Branch tablet cetirizine 2021-11 Yes [id number] 10mg Take 1 [facility] nivers (ALLERGY 0-25 tablet by ity of RELIEF, 00:00: mouth in [place] CETIRIZINE, the [facility] ) 10 mg morning. Branch tablet cetirizine 2021-11 Yes [id number] 10mg Take 1 [facility] nivers (ALLERGY 0-25 tablet by ity of RELIEF, 00:00: mouth in [place] CETIRIZINE, the [facility] ) 10 mg morning. Branch tablet cetirizine 2021-11 Yes [id number] 10mg Take 1 [facility] nivers (ALLERGY 0-25 tablet by ity of RELIEF, 00:00: mouth in [place] CETIRIZINE, the [facility] ) 10 mg morning. Branch tablet cetirizine 2021-11 Yes [id number] 10mg Take 1 [facility] nivers (ALLERGY 0-25 tablet by ity of RELIEF, 00:00: mouth in [place] CETIRIZINE, the [facility] ) 10 mg morning. Branch tablet cetirizine 2021-11 Yes [id number] 10mg Take 1 [facility] nivers (ALLERGY 0-25 tablet by ity of RELIEF, 00:00: mouth in [place] CETIRIZINE, the [facility] ) 10 mg morning. Branch tablet cetirizine 2021-11 Yes [id number] 10mg Take 1 [facility]ivers (ALLERGY 0-25 tablet by ity of RELIEF, 00:00: mouth in [place] CETIRIZINE, the [facility] ) 10 mg morning. Branch tablet cetirizine 2021-11 Yes [id number] 10mg Take 1 [facility] (ALLERGY 0-25 tablet by ity of RELIEF, 00:00: mouth in [place] CETIRIZINE, the Medical ) 10 mg morning. Branch tablet cetirizine 2021-11 Yes [id number] 10mg Take 1 [facility] nivers (ALLERGY 0-25 tablet by ity of RELIEF, 00:00: mouth in [place] CETIRIZINE, the [facility] ) 10 mg morning. Branch tablet cetirizine 2021-11 Yes [id number] 10mg Take 1 [facility] nivers (ALLERGY 0-25 tablet by ity of RELIEF, 00:00: mouth in [place] CETIRIZINE, the [facility] ) 10 mg morning. Branch tablet cetirizine 2021-11 Yes [id number] 10mg Take 1 [facility] nivers (ALLERGY 0-25 tablet by ity of RELIEF, 00:00: mouth in [place] CETIRIZINE, the [facility] ) 10 mg morning. Branch tablet cetirizine 2021-11 Yes [id number] 10mg Take 1 [facility] nivers (ALLERGY 0-25 tablet by ity of RELIEF, 00:00: mouth in [place] CETIRIZINE, the [facility] ) 10 mg morning. Branch tablet cetirizine 2021-11 Yes [id number] 10mg Take 1 [facility]ivers (ALLERGY 0-25 tablet by ity of RELIEF, 00:00: mouth in [place] CETIRIZINE, the [facility] ) 10 mg morning. Branch tablet cetirizine 2021-11 Yes [id number] 10mg Take 1 [facility] (ALLERGY 0-25 tablet by ity of RELIEF, 00:00: mouth in [place] CETIRIZINE, the [facility] ) 10 mg morning. Branch tablet cetirizine 2021-11 Yes [id number] 10mg Take 1 [facility]ivers (ALLERGY 0-25 tablet by ity of RELIEF, 00:00: mouth in [place] CETIRIZINE, 00 the Medical ) 10 mg morning. Branch tablet cetirizine 2021-11 Yes [id number] 10mg Take 1 [facility] (ALLERGY 0-25 tablet by ity of RELIEF, 00:00: mouth in [place] CETIRIZINE, 00 the Medical ) 10 mg morning. Branch tablet cetirizine 2021-11 Yes [id number] 10mg Take 1 [facility]ivers (ALLERGY 0-25 tablet by ity of RELIEF, 00:00: mouth in [place] CETIRIZINE, the Medical ) 10 mg morning. Branch tablet cetirizine 2021-11 Yes [id number] 10mg Take 1 [facility] (ALLERGY 0-25 tablet by ity of RELIEF, 00:00: mouth in [place] CETIRIZINE, the Medical ) 10 mg morning. Branch tablet cetirizine 2021-11 Yes [id number] 10mg Take 1 [facility] nivers (ALLERGY 0-25 tablet by ity of RELIEF, 00:00: mouth in [place] CETIRIZINE, the [facility] ) 10 mg morning. Branch tablet cetirizine 2021-11 Yes [id number] 10mg Take 1 [facility] nivers (ALLERGY 0-25 tablet by ity of RELIEF, 00:00: mouth in [place] CETIRIZINE, the [facility] ) 10 mg morning. Branch tablet cetirizine 2021-11 Yes [id number] 10mg Take 1 [facility] nivers (ALLERGY 0-25 tablet by ity of RELIEF, 00:00: mouth in [place] CETIRIZINE, the [facility] ) 10 mg morning. Branch tablet cetirizine 2021-11 Yes [id number] 10mg Take 1 [facility] nivers (ALLERGY 0-25 tablet by ity of RELIEF, 00:00: mouth in [place] CETIRIZINE, the Medical ) 10 mg morning. Branch tablet cetirizine 2021-11 Yes [id number] 10mg Take 1 [facility] (ALLERGY 0-25 tablet by ity of RELIEF, 00:00: mouth in [place] CETIRIZINE, the Medical ) 10 mg morning. Branch tablet cetirizine 2021-11 Yes [id number] 10mg Take 1 [facility] nivers (ALLERGY 0-25 tablet by ity of RELIEF, 00:00: mouth in [place] CETIRIZINE, the [facility] ) 10 mg morning. Branch tablet cetirizine 2021-11 Yes [id number] 10mg Take 1 [facility] nivers (ALLERGY 0-25 tablet by ity of RELIEF, 00:00: mouth in [place] CETIRIZINE, the [facility] ) 10 mg morning. Branch tablet cetirizine 2021-11 Yes [id number] 10mg Take 1 [facility] nivers (ALLERGY 0-25 tablet by ity of RELIEF, 00:00: mouth in [place] CETIRIZINE, the [facility] ) 10 mg morning. Branch tablet cetirizine 2021-11 Yes [id number] 10mg Take 1 [facility] nivers (ALLERGY 0-25 tablet by ity of RELIEF, 00:00: mouth in [place] CETIRIZINE, the [facility] ) 10 mg morning. Branch tablet cetirizine 2021-11 Yes [id number] 10mg Take 1 [facility]ivers (ALLERGY 0-25 tablet by ity of RELIEF, 00:00: mouth in [place] CETIRIZINE, the [facility] ) 10 mg morning. Branch tablet cetirizine 2021-11 Yes [id number] 10mg Take 1 [facility] nivers (ALLERGY 0-25 tablet by ity of RELIEF, 00:00: mouth in [place] CETIRIZITN, the [facility] ) 10 mg morning. Branch tablet cetirizine 2021-11 Yes [id number] 10mg Take 1 [facility] nivers (ALLERGY 0-25 tablet by ity of RELIEF, 00:00: mouth in [place] CETIRIZINE, the [facility] ) 10 mg morning. Branch tablet cetirizine 2021-11 Yes [id number] 10mg Take 1 [facility] nivers (ALLERGY 0-25 tablet by ity of RELIEF, 00:00: mouth in [place] CETIRIZINE, the [facility] ) 10 mg morning. Branch tablet cetirizine 2021-11 Yes [id number] 10mg Take 1 [facility] (ALLERGY 0-25 tablet by ity of RELIEF, 00:00: mouth in [place] CETIRIZINE, the [facility] ) 10 mg morning. Branch tablet cetirizine 2021-11 Yes [id number] 10mg Take 1 [facility] nivers (ALLERGY 0-25 tablet by ity of RELIEF, 00:00: mouth in [place] CETIRIZINE, 00 the [facility] ) 10 mg morning. Branch tablet cetirizine 2021-11 Yes [id number] 10mg Take 1 [facility] nivers (ALLERGY 0-25 tablet by ity of RELIEF, 00:00: mouth in [facility], the [facility] ) 10 mg morning. Branch tablet cetirizine 2021-11 Yes [id number] 10mg Take 1 [facility] nivers (ALLERGY 0-25 tablet by ity of RELIEF, 00:00: mouth [facility] [place] [facility] ) 10 mg morning. [place] tablet cetirizine 2021-11- No [id number] 10mg Take 1 [facility] (ALLERGY 0-25 12-28 tablet by ity o f RELIEF, 00:00: 00:00 mouth [facility] [place] [facility] ) 10 mg morning. [place] tablet furosemide 2021-11- No [id number] 80mg Take 2 [facility] (LASIX) 40 0-17 10- 02 tablets by it y of mg tablet 00:00: 00:00 mouth [place] 00 :00 every Medical morning Branch and evening. empaglifloz 2021-11- No [id number] 10mg Take 1 [facility] in 0-09-29 tablet by ity of (JARDIANCE) 00:00: 00:[place] 10 mg 00 :00 every Medical morning. [place] pantoprazol 2021-11- No [id number] 40mg Take 1 [facility] e 40 mg EC 0-09-29 tablet by ity of tablet 00:00: 00:00 mouth in [place] 00 :00 the Medical morning Branch and 1 tablet in the evening. KCL 20 mEq 2021-11- No [id number] 20meq Take 1 [facility] tablet 009-29 tablet by ity of 00:00: 00:00 mouth in [place] 00 :00 the Medical morning. [place] metoprolol 2021-11- No [id number] 50mg Take 1 [facility] succinate 0-25 - tablet by ity of XL 50 mg 24 00:00: 00:00 mouth in [place] hr tablet 00 :00 the Medical morning. [place] levothyroxi 2021-11- No [id number] 150ug Take 1 [facility] ne 150 mcg 0-09-29 tablet by ity of tablet 00:00: 00:00 mouth [place] 00 :00 every Medical morning. Branch furosemide 2021-11- No [id number] 80mg Take 2 [facility] (LASIX) 40 09-29 02 tablets by it y of mg tablet 00:00: 00:00 mouth [place] 00 :00 every Medical morning Branch and evening. empaglifloz 2021-11- No [id number] 10mg Take 1 [facility] in 0-09-29 tablet by ity of (JARDIANCE) 00:00: 00:[place] 10 mg 00 :00 every Medical morning. Branch pantoprazol 2021-11- No [id number] 40mg Take 1 [facility] e 40 mg EC 009-29 tablet by ity of tablet 00:00: 00:00 mouth in [place] 00 :00 the Medical morning Branch and 1 tablet in the evening. KCL 20 mEq 2021-11- No [id number] 20meq Take 1 [facility] tablet 09-29 tablet by ity of 00:00: 00:00 mouth in [place] 00 :00 the Medical morning. Branch metoprolol 2021-11- No [id number] 50mg Take 1 [facility] succinate 09-29 tablet by ity of XL 50 mg 24 00:00: 00:00 mouth in [place] hr tablet 00 :00 the Medical morning. Branch levothyroxi 2021-11- No [id number] 150ug Take 1 [facility] ne 150 mcg 09-29 tablet by ity of tablet 00:00: 00:00 mouth [place] 00 :00 every Medical morning. Branch tiotropium 2021-11 Yes [id number] 18ug Inhale 1 [facility] 18 mcg 0-24 capsule in ity of inhalation 00:00: the [place] 00 morning. Medical Branch tiotropium 2021-11 Yes [id number] 18ug Inhale 1 [facility] 18 mcg 0-24 capsule in ity of inhalation 00:00: the [place] 00 morning. Medical Branch tiotropium 2021-11 Yes [id number] 18ug Inhale 1 [facility] 18 mcg 0-24 capsule in ity of inhalation 00:00: the [place] 00 morning. Medical Branch tiotropium 2021-11 Yes [id number] 18ug Inhale 1 [facility] 18 mcg 0-24 capsule in ity of inhalation 00:00: the [place] 00 morning. Medical Branch tiotropium 2021- Yes [id number] 18ug Inhale 1 [facility] 18 mcg 0-24 capsule in ity of inhalation 00:00: the [place] 00 morning. Medical Branch tiotropium 2021-1 Yes [id number] 18ug Inhale 1 [facility] 18 mcg 0-24 capsule in ity of inhalation 00:00: the [place] 00 morning. Medical Branch tiotropium 2- Yes [id number] 18ug Inhale 1 [facility] 18 mcg 0-24 capsule in ity of inhalation 00:00: the [place] 00 morning. Medical Branch tiotropium 2021- Yes [id number] 18ug Inhale 1 [facility] 18 mcg 0-24 capsule ity of inhalation 00:00: in the [place] 00 morning. Medical Branch tiotropium 2021- Yes [id number] 18ug Inhale 1 [facility] 18 mcg 0-24 capsule in ity of inhalation 00:00: the [place] 00 morning. Medical Branch tiotropium 2021- Yes [id number] 18ug Inhale 1 [facility] 18 mcg 0-24 capsule in ity of inhalation 00:00: the [place] 00 morning. Medical Branch tiotropium 2021- Yes [id number] 18ug Inhale 1 [facility] 18 mcg 0-24 capsule in ity of inhalation 00:00: the [place] 00 morning. Medical Branch tiotropium 2021- Yes [id number] 18ug Inhale 1 [facility] 18 mcg 0-24 capsule in ity of inhalation 00:00: the [place] 00 morning. Medical Branch tiotropium 2021- Yes [id number] 18ug Inhale 1 [facility] 18 mcg 0-24 capsule in ity of inhalation 00:00: the [place] 00 morning. Medical Branch tiotropium 2021-1 Yes [id number] 18ug Inhale 1 [facility] 18 mcg 0-24 capsule in ity of inhalation 00:00: the [place] 00 morning. Medical Branch tiotropium 2-1 Yes [id number] 18ug Inhale 1 [facility] 18 mcg 0-24 capsule in ity of inhalation 00:00: the [place] 00 morning. Medical Branch tiotropium 2-1 Yes [id number] 18ug Inhale 1 [facility] 18 mcg 0-24 capsule in ity of inhalation 00:00: the [place] 00 morning. Medical Branch tiotropium 2-1 Yes [id number] 18ug Inhale 1 [facility] 18 mcg 0-24 capsule in ity of inhalation 00:00: the 00 morning. Medical Branch tiotropium 2021- Yes [id number] 18ug Inhale 1 [facility] 18 mcg 0-24 capsule in ity of inhalation 00:00: the [place] 00 morning. Medical Branch tiotropium 2021-1 Yes [id number] 18ug Inhale 1 [facility] 18 mcg 0-24 capsule in ity of inhalation 00:00: the 00 morning. Medical Branch tiotropium 2021- Yes [id number] 18ug Inhale 1 [facility] 18 mcg 0-24 capsule in ity of inhalation 00:00: the [place] 00 morning. Medical Branch tiotropium 2021- Yes [id number] 18ug Inhale 1 [facility] 18 mcg 0-24 capsule in ity of inhalation 00:00: the [place] 00 morning. Medical Branch tiotropium 2021- Yes [id number] 18ug Inhale 1 [facility] 18 mcg 0-24 capsule in ity of inhalation 00:00: the [place] 00 morning. Medical Branch tiotropium 2021-1 Yes [id number] 18ug Inhale 1 [facility] 18 mcg 0-24 capsule in ity of inhalation 00:00: the [place] 00 morning. Medical Branch tiotropium 2021- Yes [id number] 18ug Inhale 1 [facility] 18 mcg 0-24 capsule in ity of inhalation 00:00: the [place] 00 morning. Medical Branch tiotropium 2021-1 Yes [id number] 18ug Inhale 1 [facility] 18 mcg 0-24 capsule in ity of inhalation 00:00: the [place] 00 morning. Medical Branch tiotropium 2021-1 Yes [id number] 18ug Inhale 1 [facility] 18 mcg 0-24 capsule in ity of inhalation 00:00: the [place] 00 morning. Medical Branch tiotropium 2021-1 Yes [id number] 18ug Inhale 1 [facility] 18 mcg 0-24 capsule in ity of inhalation 00:00: the [place] 00 morning. Medical Branch tiotropium 2021-1 Yes [id number] 18ug Inhale 1 [facility] 18 mcg 0-24 capsule in ity of inhalation 00:00: the [place] 00 morning. Medical Branch tiotropium 2021-1 Yes [id number] 18ug Inhale 1 [facility] 18 mcg 0-24 capsule in ity of inhalation 00:00: the 00 morning. Medical Branch tiotropium 2021- Yes [id number] 18ug Inhale 1 [facility] 18 mcg 0-24 capsule in ity of inhalation 00:00: the 00 morning. Medical Branch tiotropium 2021-1 Yes [id number] 18ug Inhale 1 [facility] 18 mcg 0-24 capsule in ity of inhalation 00:00: the [place] 00 morning. Medical Branch tiotropium 2- Yes [id number] 18ug Inhale 1 [facility] 18 mcg 0-24 capsule in ity of inhalation 00:00: the 00 morning. Medical Branch tiotropium 2021- Yes [id number] 18ug Inhale 1 [facility] 18 mcg 0-24 capsule in ity of inhalation 00:00: the [place] 00 morning. Medical Branch tiotropium 2021- Yes [id number] 18ug Inhale 1 [facility] 18 mcg 0-24 capsule in ity of inhalation 00:00: the [place] 00 morning. Medical Branch tiotropium 2021- Yes [id number] 18ug Inhale 1 [facility] 18 mcg 0-24 capsule in ity of inhalation 00:00: the [place] 00 morning. Medical Branch tiotropium 2021- Yes [id number] 18ug Inhale 1 [facility] 18 mcg 0-24 capsule in ity of inhalation 00:00: the [place] 00 morning. Medical Branch tiotropium 2021- Yes [id number] 18ug Inhale 1 [facility] 18 mcg 0-24 capsule in ity of inhalation 00:00: the [place] 00 morning. Medical Branch tiotropium 2021- Yes [id number] 18ug Inhale 1 [facility] 18 mcg 0-24 capsule in ity of inhalation 00:00: the [place] 00 morning. Medical Branch tiotropium 2021-1 Yes [id number] 18ug Inhale 1 [facility] 18 mcg 0-24 capsule in ity of inhalation 00:00: the [place] 00 morning. Medical Branch tiotropium 2-1 Yes [id number] 18ug Inhale 1 [facility] 18 mcg 0-24 capsule in ity of inhalation 00:00: the [place] 00 morning. Medical Branch tiotropium 2-1 Yes [id number] 18ug Inhale 1 [facility] 18 mcg 0-24 capsule in ity of inhalation 00:00: the [place] 00 morning. Medical Branch tiotropium 2-1 Yes [id number] 18ug Inhale 1 [facility] 18 mcg 0-24 capsule in ity of inhalation 00:00: the 00 morning. Medical Branch tiotropium 2021- Yes [id number] 18ug Inhale 1 [facility] 18 mcg 0-24 capsule in ity of inhalation 00:00: the [place] 00 morning. Medical Branch tiotropium 2021-1 Yes [id number] 18ug Inhale 1 [facility] 18 mcg 0-24 capsule in ity of inhalation 00:00: the 00 morning. Medical Branch tiotropium 2021- Yes [id number] 18ug Inhale 1 [facility] 18 mcg 0-24 capsule in ity of inhalation 00:00: the [place] 00 morning. Medical Branch tiotropium 2021- Yes [id number] 18ug Inhale 1 [facility] 18 mcg 0-24 capsule in ity of inhalation 00:00: the [place] 00 morning. Medical Branch tiotropium 2021- Yes [id number] 18ug Inhale 1 [facility] 18 mcg 0-24 capsule in ity of inhalation 00:00: the [place] 00 morning. Medical Branch tiotropium 2021-1 Yes [id number] 18ug Inhale 1 [facility] 18 mcg 0-24 capsule in ity of inhalation 00:00: the [place] 00 morning. Medical Branch tiotropium 2021- Yes [id number] 18ug Inhale 1 [facility] 18 mcg 0-24 capsule in ity of inhalation 00:00: the [place] 00 morning. Medical Branch tiotropium 2021-1 Yes [id number] 18ug Inhale 1 [facility] 18 mcg 0-24 capsule in ity of inhalation 00:00: the [place] 00 morning. Medical Branch tiotropium 2021-1 Yes [id number] 18ug Inhale 1 [facility] 18 mcg 0-24 capsule in ity of inhalation 00:00: the [place] 00 morning. Medical Branch tiotropium 2021-1 Yes [id number] 18ug Inhale 1 [facility] 18 mcg 0-24 capsule in ity of inhalation 00:00: the [place] 00 morning. Medical Branch tiotropium 2021-1 Yes [id number] 18ug Inhale 1 [facility] 18 mcg 0-24 capsule in ity of inhalation 00:00: the [place] 00 morning. Medical Branch tiotropium 2021-1 Yes [id number] 18ug Inhale 1 [facility] 18 mcg 0-24 capsule in ity of inhalation 00:00: the 00 morning. Medical Branch tiotropium 2021- Yes [id number] 18ug Inhale 1 [facility] 18 mcg 0-24 capsule in ity of inhalation 00:00: the 00 morning. Medical Branch tiotropium 2021-1 Yes [id number] 18ug Inhale 1 [facility] 18 mcg 0-24 capsule in ity of inhalation 00:00: the [place] 00 morning. Medical Branch tiotropium 2- Yes [id number] 18ug Inhale 1 [facility] 18 mcg 0-24 capsule in ity of inhalation 00:00: the 00 morning. Medical Branch tiotropium 2021- Yes [id number] 18ug Inhale 1 [facility] 18 mcg 0-24 capsule in ity of inhalation 00:00: the [place] 00 morning. Medical Branch tiotropium 2021- Yes [id number] 18ug Inhale 1 [facility] 18 mcg 0-24 capsule in ity of inhalation 00:00: the [place] 00 morning. Medical Branch tiotropium 2021- Yes [id number] 18ug Inhale 1 [facility] 18 mcg 0-24 capsule in ity of inhalation 00:00: the [place] 00 morning. Medical Branch tiotropium 2021- Yes [id number] 18ug Inhale 1 [facility] 18 mcg 0-24 capsule in ity of inhalation 00:00: the [place] 00 morning. Medical Branch tiotropium 2021- Yes [id number] 18ug Inhale 1 [facility] 18 mcg 0-24 capsule in ity of inhalation 00:00: the [place] 00 morning. Medical Branch tiotropium 2021- Yes [id number] 18ug Inhale 1 [facility] 18 mcg 0-24 capsule in ity of inhalation 00:00: the [place] 00 morning. Medical Branch tiotropium 2021-1 Yes [id number] 18ug Inhale 1 [facility] 18 mcg 0-24 capsule in ity of inhalation 00:00: the [place] 00 morning. Medical Branch tiotropium 2-1 Yes [id number] 18ug Inhale 1 [facility] 18 mcg 0-24 capsule in ity of inhalation 00:00: the [place] 00 morning. Medical Branch tiotropium 2-1 Yes [id number] 18ug Inhale 1 [facility] 18 mcg 0-24 capsule in ity of inhalation 00:00: the [place] 00 morning. Medical Branch tiotropium 2-1 Yes [id number] 18ug Inhale 1 [facility] 18 mcg 0-24 capsule in ity of inhalation 00:00: the [place] 00 morning. Medical Branch tiotropium 2021- Yes [id number] 18ug Inhale 1 [facility] 18 mcg 0-24 capsule in ity of inhalation 00:00: the [place] 00 morning. Medical Branch tiotropium 2021-11 Yes [id number] 18ug Inhale 1 [facility] 18 mcg 0-24 capsule in ity of inhalation 00:00: the [place] 00 morning. Medical Branch tiotropium 2021-11 Yes [id number] 18ug Inhale 1 [facility] 18 mcg 0-24 capsule in ity of inhalation 00:00: the [place] 00 morning. Medical Branch tiotropium 2021-11 Yes [id number] 18ug Inhale 1 [facility] 18 mcg 0-24 capsule in ity of inhalation 00:00: the [place] 00 morning. Medical Branch tiotropium 2021-11 Yes [id number] 18ug Inhale 1 [facility] 18 mcg 0-24 capsule in ity of inhalation 00:00: the [place] 00 morning. Medical Branch tiotropium 2021-11 Yes [id number] 18ug Inhale 1 [facility] 18 mcg 0-24 capsule in ity of inhalation 00:00: the [place] 00 morning. Medical Branch tiotropium 2021-11 Yes [id number] 18ug Inhale 1 [facility] 18 mcg 0-24 capsule in ity of inhalation 00:00: the [place] 00 morning. Medical Branch predniSONE 2021- Yes [id number] 50mg Take 1 [facility] nivers 50 mg 0-21 tablet by ity of tablet 00:00: mouth in [place] the morning. Branch predniSONE 2021- Yes [id number] 50mg Take 1 U nivers 50 mg 0-21 tablet by ity of tablet 00:00: mouth in [place] 00 the morning. Branch predniSONE 2021- Yes [id number] 50mg Take 1 U nivers 50 mg 0-21 tablet by ity of tablet 00:00: mouth in [place] 00 the morning. Branch predniSONE 2021-1 Yes [id number] 50mg Take 1 U nivers 50 mg 0-21 tablet by ity of tablet 00:00: mouth in [place] 00 the morning. Branch predniSONE 2021- Yes [id number] 50mg Take 1 U nivers 50 mg 0-21 tablet by ity of tablet 00:00: mouth in [place] 00 the Medical morning. Branch predniSONE 2021-11 Yes [id number] 50mg Take 1 U nivers 50 mg 0-21 tablet by ity of tablet 00:00: mouth in [place] 00 the Medical morning. Branch predniSONE 2021- Yes [id number] 50mg Take 1 U nivers 50 mg 0-21 tablet by ity of tablet 00:00: mouth in [place] 00 the Medical morning. Branch predniSONE 2021- Yes [id number] 50mg Take 1 U nivers 50 mg 0-21 tablet by ity of tablet 00:00: mouth in [place] 00 the Medical morning. Branch predniSONE 2021- Yes [id number] 50mg Take 1 U nivers 50 mg 0-21 tablet by ity of tablet 00:00: mouth in [place] 00 the Medical morning. Branch predniSONE 2021- Yes [id number] 50mg Take 1 [facility] nivers 50 mg 0-21 tablet by ity of tablet 00:00: mouth in [place] 00 the Medical morning. Branch predniSONE 2021- Yes [id number] 50mg Take 1 [facility] nivers 50 mg 0-21 tablet by ity of tablet 00:00: mouth in [place] 00 the Medical morning. Branch predniSONE 2021- Yes [id number] 50mg Take 1 [facility] nivers 50 mg 0-21 tablet by ity of tablet 00:00: mouth in [place] 00 the Medical morning. Branch predniSONE 2021- Yes [id number] 50mg Take 1 [facility] nivers 50 mg 0-21 tablet by ity of tablet 00:00: mouth in [place] 00 the Medical morning. Branch predniSONE 2021- Yes [id number] 50mg Take 1 [facility] nivers 50 mg 0-21 tablet by ity of tablet 00:00: mouth in [place] 00 the Medical morning. Branch predniSONE 2021- Yes [id number] 50mg Take 1 U nivers 50 mg 0-21 tablet by ity of tablet 00:00: mouth in [place] 00 the Medical morning. Branch predniSONE 2021-1 Yes [id number] 50mg Take 1 [facility] nivers 50 mg 0-21 tablet by ity of tablet 00:00: mouth in [place] 00 the Medical morning. Branch predniSONE 2- Yes [id number] 50mg Take 1 U nivers 50 mg 0-21 tablet by ity of tablet 00:00: mouth in [place] 00 the Medical morning. Branch predniSONE 2021-1 Yes [id number] 50mg Take 1 [facility] nivers 50 mg 0-21 tablet by ity of tablet 00:00: mouth in [place] 00 the Medical morning. Branch predniSONE 2021-11 Yes [id number] 50mg Take 1 [facility] nivers 50 mg 0-21 tablet by ity of tablet 00:00: mouth in [place] 00 the Medical morning. Branch predniSONE 2021-11 Yes [id number] 50mg Take 1 [facility] nivers 50 mg 0-21 tablet by ity of tablet 00:00: mouth in [place] 00 the Medical morning. Branch predniSONE 2021-11 Yes [id number] 50mg Take 1 [facility] nivers 50 mg 0-21 tablet by ity of tablet 00:00: mouth in [place] 00 the Medical morning. Branch predniSONE 2021-11 No [id number] 50mg Take 1 [facility] 50 mg 0-21 - tablet by ity of tablet 00:00: 00:00 mouth in [place] 00 :00 the Medical morning. Branch clotrimazol 2021-11 Yes [id number] Apply to [facility] (JOCK 0-17 area(s) 2 ity of ITCH, 00:00: (two) [place] CLOTRIMAZOL 00 times Medical E,) 1 % daily. For Branch topical one week cream clotrimazol 2021-11 Yes [id number] Apply to [facility] (JOCK 0-17 area(s) 2 ity of ITCH, 00:00: (two) [place] CLOTRIMAZOL 00 times Medical E,) 1 % daily. For Branch topical one week cream clotrimazol 2021-11 Yes [id number] Apply to [facility] (JOCK 0-17 area(s) 2 ity of ITCH, 00:00: (two) [place] CLOTRIMAZOL 00 times Medical E,) 1 % daily. For Branch topical one week cream clotrimazol 2021-11 Yes [id number] Apply to [facility] (JOCK 0-17 area(s) 2 ity of ITCH, 00:00: (two) [place] CLOTRIMAZOL 00 times Medical E,) 1 % daily. For Branch topical one week cream clotrimazol 2021-11 Yes [id number] Apply to [facility] (JOCK 0-17 area(s) 2 ity of ITCH, 00:00: (two) [place] CLOTRIMAZOL 00 times Medical E,) 1 % daily. For Branch topical one week cream clotrimazol 2021-11 Yes [id number] Apply to [facility] (JOCK 0-17 area(s) 2 ity of ITCH, 00:00: (two) [place] CLOTRIMAZOL 00 times Medical E,) 1 % daily. For Branch topical one week cream clotrimazol 2021-11 Yes [id number] Apply to [facility] (JOCK 0-17 area(s) 2 ity of ITCH, 00:00: (two) [place] CLOTRIMAZOL 00 times Medical E,) 1 % daily. For Branch topical one week cream clotrimazol 2021-11 Yes [id number] Apply to [facility] (JOCK 0-17 area(s) 2 ity of ITCH, 00:00: (two) [place] CLOTRIMAZOL 00 times Medical E,) 1 % daily. For Branch topical one week cream clotrimazol 2021-11 Yes [id number] Apply to [facility] (JOCK 0-17 area(s) 2 ity of ITCH, 00:00: (two) [place] CLOTRIMAZOL 00 times Medical E,) 1 % daily. For Branch topical one week cream clotrimazol 2021-11 Yes [id number] Apply to [facility] (JOCK 0-17 area(s) 2 ity of ITCH, 00:00: (two) [place] CLOTRIMAZOL 00 times Medical E,) 1 % daily. For Branch topical one week cream clotrimazol 2021-11 Yes [id number] Apply to [facility] (JOCK 0-17 area(s) 2 ity of ITCH, 00:00: (two) [place] CLOTRIMAZOL 00 times Medical E,) 1 % daily. For Branch topical one week cream clotrimazol 2021-11 Yes [id number] Apply to [facility] (JOCK 0-17 area(s) 2 ity of ITCH, 00:00: (two) [place] CLOTRIMAZOL 00 times Medical E,) 1 % daily. For Branch topical one week cream clotrimazol 2021-11 Yes [id number] Apply to [facility] (JOCK 0-17 area(s) 2 ity of ITCH, 00:00: (two) [place] CLOTRIMAZOL 00 times Medical E,) 1 % daily. For Branch topical one week cream clotrimazol 2021-11 Yes [id number] Apply to [facility] (JOCK 0-17 area(s) 2 ity of ITCH, 00:00: (two) [place] CLOTRIMAZOL 00 times Medical E,) 1 % daily. For Branch topical one week cream clotrimazol 2021-11 Yes [id number] Apply to [facility] (JOCK 0-17 area(s) 2 ity of ITCH, 00:00: (two) [place] CLOTRIMAZOL 00 times Medical E,) 1 % daily. For Branch topical one week cream clotrimazol 2021-11 Yes [id number] Apply to [facility] (JOCK 0-17 area(s) 2 ity of ITCH, 00:00: (two) [place] CLOTRIMAZOL 00 times Medical E,) 1 % daily. For Branch topical one week cream clotrimazol 2021-11 Yes [id number] Apply to [facility] (JOCK 0-17 area(s) 2 ity of ITCH, 00:00: (two) [place] CLOTRIMAZOL 00 times Medical E,) 1 % daily. For Branch topical one week cream clotrimazol 2021-11 Yes [id number] Apply to [facility] (JOCK 0-17 area(s) 2 ity of ITCH, 00:00: (two) [place] CLOTRIMAZOL 00 times Medical E,) 1 % daily. For Branch topical one week cream clotrimazol 2021-11 Yes [id number] Apply to [facility] (JOCK 0-17 area(s) 2 ity of ITCH, 00:00: (two) [place] CLOTRIMAZOL 00 times Medical E,) 1 % daily. For Branch topical one week cream clotrimazol 2021-11 Yes [id number] Apply to [facility] (JOCK 0-17 area(s) 2 ity of ITCH, 00:00: (two) [place] CLOTRIMAZOL 00 times Medical E,) 1 % daily. For Branch topical one week cream clotrimazol 2021-11 Yes [id number] Apply to [facility] (JOCK 0-17 area(s) 2 ity of ITCH, 00:00: (two) [place] CLOTRIMAZOL 00 times Medical E,) 1 % daily. For Branch topical one week cream clotrimazol 2021-11 Yes [id number] Apply to [facility] (JOCK 0-17 area(s) 2 ity of ITCH, 00:00: (two) [place] CLOTRIMAZOL 00 times Medical E,) 1 % daily. For Branch topical one week cream clotrimazol 2021-11 Yes [id number] Apply to [facility] e (JOCK 0-17 area(s) 2 ity of ITCH, 00:00: (two) [place] CLOTRIMAZOL 00 times Medical E,) 1 % daily. For Branch topical one week cream clotrimazol 2021-11 Yes [id number] Apply to [facility] (JOCK 0-17 area(s) 2 ity of ITCH, 00:00: (two) [place] CLOTRIMAZOL 00 times Medical E,) 1 % daily. For Branch topical one week cream clotrimazol 2021-11- No [id number] Apply to [facility] e (JOCK 0-17 10-31 area(s) 2 ity of ITCH, 00:00: 00:00 (two) [place] CLOTRIMAZOL 00 :00 times Medical E,) 1 % daily. For Branch topical one week cream albuterol 2021-11- No [id number] 2.5mg [facility] (PROVENTIL) 0-15 10-15 ity of 2.5 mg /3 23:45: 22:45 [place] mL (0.083 00 :00 Medical %) Branch nebulizer solution 2.5 mg albuterol 2021-11- No [id number] 2.5mg 2.5 mg, [facility] (PROVENTIL) 0-15 10-15 Inhalation i ty of 2.5 mg /3 23:45: 22:45 , ONCE [place] mL (0.083 00 :00 NOW, 1 Medical %) dose, On Branch nebulizer Sat solution 09/06/22 2.5 mg at 1845, Routine albuterol 2021-11- No [id number] 2.5mg [facility] (PROVENTIL) 0-15 10-15 ity of 2.5 mg /3 23:45: 22:45 [place] mL (0.083 00 :00 Medical %) Branch nebulizer solution 2.5 mg albuterol 2021-11- No [id number] 2.5mg 2.5 mg, [facility] (PROVENTIL) 0-15 10-15 Inhalation i ty of 2.5 mg /3 23:45: 22:45 , ONCE [place] mL (0.083 00 :00 NOW, 1 Medical %) dose, On Branch nebulizer Sat solution 09/06/22 2.5 mg at 1845, Routine albuterol 2021-11- No [id number] 2.5mg [facility] (PROVENTIL) 0-15 10-15 ity of 2.5 mg /3 23:45: 22:45 [place] mL (0.083 00 :00 Medical %) Branch nebulizer solution 2.5 mg albuterol 2021-11- No [id number] 2.5mg 2.5 mg, [facility] (PROVENTIL) 0-15 10-15 Inhalation i ty of 2.5 mg /3 23:45: 22:45 , ONCE [place] mL (0.083 00 :00 NOW, 1 Medical %) dose, On Branch nebulizer Sat solution 09/06/22 2.5 mg at 1845, Routine albuterol 2021-11- No [id number] 2.5mg [facility] (PROVENTIL) 0-15 10-15 ity of 2.5 mg /3 23:45: 22:45 [place] mL (0.083 00 :00 Medical %) Branch nebulizer solution 2.5 mg albuterol 2021-11- No [id number] 2.5mg 2.5 mg, [facility] (PROVENTIL) 0-15 10-15 Inhalation i ty of 2.5 mg /3 23:45: 22:45 , ONCE [place] mL (0.083 00 :00 NOW, 1 Medical %) dose, On Branch nebulizer Sat solution 09/06/22 2.5 mg at 1845, Routine albuterol 2021-11- No [id number] 2.5mg [facility] (PROVENTIL) 0-15 10-15 ity of 2.5 mg /3 23:45: 22:45 [place] mL (0.083 00 :00 Medical %) Branch nebulizer solution 2.5 mg albuterol 2021-11- No [id number] 2.5mg 2.5 mg, [facility] (PROVENTIL) 0-15 10-15 Inhalation i ty of 2.5 mg /3 23:45: 22:45 , ONCE [place] mL (0.083 00 :00 NOW, 1 Medical %) dose, On Branch nebulizer Sat solution 09/06/22 2.5 mg at 1845, Routine albuterol 2021-11- No [id number] 2.5mg [facility] (PROVENTIL) 0-15 10-15 ity of 2.5 mg /3 23:45: 22:45 [place] mL (0.083 00 :00 Medical %) Branch nebulizer solution 2.5 mg albuterol 2021-11- No [id number] 2.5mg 2.5 mg, [facility] (PROVENTIL) 0-15 10-15 Inhalation i ty of 2.5 mg /3 23:45: 22:45 , ONCE [place] mL (0.083 00 :00 NOW, 1 Medical %) dose, On Branch nebulizer Sat solution 09/06/22 2.5 mg at 1845, Routine albuterol 2021-11- No [id number] 2.5mg [facility] (PROVENTIL) 0-15 10-15 ity of 2.5 mg /3 23:45: 22:45 [place] mL (0.083 00 :00 Medical %) Branch nebulizer solution 2.5 mg albuterol 2021-11- No [id number] 2.5mg 2.5 mg, [facility] (PROVENTIL) 0-15 10-15 Inhalation i ty of 2.5 mg /3 23:45: 22:45 , ONCE [place] mL (0.083 00 :00 NOW, 1 Medical %) dose, On Branch nebulizer Sat solution 09/06/22 2.5 mg at 1845, Routine albuterol 2021-11- No [id number] 2.5mg [facility] (PROVENTIL) 0-15 10-15 ity of 2.5 mg /3 23:45: 22:45 [place] mL (0.083 00 :00 Medical %) Branch nebulizer solution 2.5 mg albuterol 2021-11- No [id number] 2.5mg 2.5 mg, [facility] (PROVENTIL) 0-15 10-15 Inhalation i ty of 2.5 mg /3 23:45: 22:45 , ONCE [place] mL (0.083 00 :00 NOW, 1 Medical %) dose, On Branch nebulizer Sat solution 09/06/22 2.5 mg at 1845, Routine ipratropium 2021-11- No [id number] .5mg [facility] (ATROVENT) 0-15 10-15 ity of 0.02 % 23:30: 22:46 [place] nebulizer 00 :00 Medical solution Branch 0.5 mg ipratropium 2021-11- No [id number] .[id number] 0.5 mg, [facility] (ATROVENT) 0-15 10-15 Inhalation it y of 0.02 % 23:30: 22:46 , ONCE, 1 [place] nebulizer 00 :00 dose, On Medica l solution Sat Branch 0.5 mg 09/06/22 at 1830, Routine ipratropium 2021-11- No [id number] .5mg [facility] (ATROVENT) 0-15 10-15 ity of 0.02 % 23:30: 22:46 [place] nebulizer 00 :00 Medical solution Branch 0.5 mg ipratropium 2021-11- No [id number] .[id number] 0.5 mg, [facility] (ATROVENT) 0-15 10-15 Inhalation it y of 0.02 % 23:30: 22:46 , ONCE, 1 [place] nebulizer 00 :00 dose, On Medica l solution Sat Branch 0.5 mg 09/06/22 at 1830, Routine ipratropium 2021-11- No [id number] .5mg [facility] (ATROVENT) 0-15 10-15 ity of 0.02 % 23:30: 22:46 [place] nebulizer 00 :00 Medical solution Branch 0.5 mg ipratropium 2021-11- No [id number] .[id number] 0.5 mg, [facility] (ATROVENT) 0-15 10-15 Inhalation it y of 0.02 % 23:30: 22:46 , ONCE, 1 [place] nebulizer 00 :00 dose, On Medica l solution Sat Branch 0.5 mg 09/06/22 at 1830, Routine ipratropium 2021-11- No [id number] .5mg [facility] (ATROVENT) 0-15 10-15 ity of 0.02 % 23:30: 22:46 [place] nebulizer 00 :00 Medical solution Branch 0.5 mg ipratropium 2021-11- No [id number] .5mg 0.5 mg, [facility] (ATROVENT) 0-15 10-15 Inhalation it y of 0.02 % 23:30: 22:46 , ONCE, 1 [place] nebulizer 00 :00 dose, On Medica l solution Sat Branch 0.5 mg 09/06/22 at 1830, Routine ipratropium 2021-11- No [id number] .5mg [facility] (ATROVENT) 0-15 10-15 ity of 0.02 % 23:30: 22:46 [place] nebulizer 00 :00 Medical solution Branch 0.5 mg ipratropium 2021-11- No [id number] .5mg 0.5 mg, [facility] (ATROVENT) 0-15 10-15 Inhalation it y of 0.02 % 23:30: 22:46 , ONCE, 1 [place] nebulizer 00 :00 dose, On Medica l solution Sat Branch 0.5 mg 09/06/22 at 1830, Routine ipratropium 2021-11- No [id number] .5mg [facility] (ATROVENT) 0-15 10-15 ity of 0.02 % 23:30: 22:46 [place] nebulizer 00 :00 Medical solution Branch 0.5 mg ipratropium 2021-11- No [id number] .[id number] 0.5 mg, [facility] (ATROVENT) 0-15 10-15 Inhalation it y of 0.02 % 23:30: 22:46 , ONCE, 1 [place] nebulizer 00 :00 dose, On Medica l solution Sat Branch 0.5 mg 09/06/22 at 1830, Routine ipratropium 2021-11- No [id number] .5mg [facility] (ATROVENT) 0-15 10-15 ity of 0.02 % 23:30: 22:46 [place] nebulizer 00 :00 Medical solution Branch 0.5 mg ipratropium 2021-11- No [id number] .5mg 0.5 mg, [facility] (ATROVENT) 0-15 10-15 Inhalation it y of 0.02 % 23:30: 22:46 , ONCE, 1 [place] nebulizer 00 :00 dose, On Medica l solution Sat Branch 0.5 mg 09/06/22 at 1830, Routine ipratropium 2021-11- No [id number] .5mg [facility] (ATROVENT) 0-15 10-15 ity of 0.02 % 23:30: 22:46 [place] nebulizer 00 :00 Medical solution Branch 0.5 mg ipratropium 2021-11- No [id number] .[id number] 0.5 mg, [facility] (ATROVENT) 0-15 10-15 Inhalation it y of 0.02 % 23:30: 22:46 , ONCE, 1 [place] nebulizer 00 :00 dose, On Medica l solution Sat Branch 0.5 mg 09/06/22 at 1830, Routine methylPREDN 2021-11- No [id number] 40mg [facility] ISolone sod 0-15 10-15 ity of succ 23:15: 22:46 [place] (SOLU-MEDRO 00 :15 Medical L ()) Branch injection 40 mg methylPREDN 2021-11- No [id number] 40mg [facility] ISolone sod 0-15 10-15 ity of succ 23:15: 22:47 [place] (SOLU-MEDRO 00 :00 Medical L (PF)) Branch injection 40 mg methylPREDN 2021-11- No [id number] 40mg 40 mg, [facility] ISolone sod 0-15 10-15 Intramuscu i ty of succ 23:15: 22:47 lar, ONCE, [place] (SOLU-MEDRO 00 :00 1 dose, On Me dical L (PF)) Sat Branch injection 09/06/22 40 mg at 1815, Routine methylPREDN 2021-11- No [id number] 40mg [facility] ISolone sod 0-15 10-15 ity of succ 23:15: 22:46 [place] (SOLU-MEDRO 00 :15 Medical L (PF)) Branch injection 40 mg methylPREDN 2021-11- No [id number] 40mg [facility] ISolone sod 0-15 10-15 ity of succ 23:15: 22:47 [place] (SOLU-MEDRO 00 :00 Medical L (PF)) Branch injection 40 mg methylPREDN 2021-11- No [id number] 40mg 40 mg, [facility] ISolone sod 0-15 10-15 Intramuscu i ty of succ 23:15: 22:47 lar, ONCE, [place] (SOLU-MEDRO 00 :00 1 dose, On Me dical L (PF)) Sat Branch injection 09/06/22 40 mg at 1815, Routine methylPREDN 2021-11- No [id number] 40mg [facility] ISolone sod 0-15 10-15 ity of succ 23:15: 22:46 [place] (SOLU-MEDRO 00 :15 Medical L (PF)) Branch injection 40 mg methylPREDN 2021-11- No [id number] 40mg [facility] ISolone sod 0-15 10-15 ity of succ 23:15: 22:47 [place] (SOLU-MEDRO 00 :00 Medical L (PF)) Branch injection 40 mg methylPREDN 2021-11- No [id number] 40mg 40 mg, [facility] ISolone sod 0-15 10-15 Intramuscu i ty of succ 23:15: 22:47 lar, ONCE, [place] (SOLU-MEDRO 00 :00 1 dose, On Me dical L (PF)) Sat Branch injection 09/06/22 40 mg at 1815, Routine methylPREDN 2021-11- No [id number] 40mg [facility] ISolone sod 0-15 10-15 ity of succ 23:15: 22:46 [place] (SOLU-MEDRO 00 :15 Medical L (PF)) Branch injection 40 mg methylPREDN 2021-11- No [id number] 40mg [facility] ISolone sod 0-15 10-15 ity of succ 23:15: 22:47 [place] (SOLU-MEDRO 00 :00 Medical L (PF)) Branch injection 40 mg methylPREDN 2021-11- No [id number] 40mg 40 mg, [facility] ISolone sod 0-15 10-15 Intramuscu i ty of succ 23:15: 22:47 lar, ONCE, [place] (SOLU-MEDRO 00 :00 1 dose, On Me dical L (PF)) Sat Branch injection 09/06/22 40 mg at 1815, Routine methylPREDN 2021-11- No [id number] 40mg [facility] ISolone sod 0-15 10-15 ity of succ 23:15: 22:46 [place] (SOLU-MEDRO 00 :15 Medical L (PF)) Branch injection 40 mg methylPREDN 2021-11- No [id number] 40mg [facility] ISolone sod 0-15 10-15 ity of succ 23:15: 22:47 [place] (SOLU-MEDRO 00 :00 Medical L (PF)) Branch injection 40 mg methylPREDN 2021-11- No [id number] 40mg 40 mg, [facility] ISolone sod 0-15 10-15 Intramuscu i ty of succ 23:15: 22:47 lar, ONCE, [place] (SOLU-MEDRO 00 :00 1 dose, On Ms dical L (PF)) Sat Branch injection 09/06/22 40 mg at 1815, Routine methylPREDN 2021-11- No [id number] 40mg [facility] ISolone sod 0-15 10-15 ity of succ 23:15: 22:46 [place] (SOLU-MEDRO 00 :15 Medical L (PF)) Branch injection 40 mg methylPREDN 2021-11- No [id number] 40mg [facility] ISolone sod 0-15 10-15 ity of succ 23:15: 22:47 [place] (SOLU-MEDRO 00 :00 Medical L (PF)) Branch injection 40 mg methylPREDN 2021-11- No [id number] 40mg 40 mg, [facility] ISolone sod 0-15 10-15 Intramuscu i ty of succ 23:15: 22:47 lar, ONCE, [place] (SOLU-MEDRO 00 :00 1 dose, On Me dical L (PF)) Sat Branch injection 09/06/22 40 mg at 1815, Routine methylPREDN 2021-11- No [id number] 40mg [facility] ISolone sod 0-15 10-15 ity of succ 23:15: 22:46 [place] (SOLU-MEDRO 00 :15 Medical L (PF)) Branch injection 40 mg methylPREDN 2021-11- No [id number] 40mg [facility] ISolone sod 0-15 10-15 ity of succ 23:15: 22:47 [place] (SOLU-MEDRO 00 :00 Medical L (PF)) Branch injection 40 mg methylPREDN 2021-11- No [id number] 40mg 40 mg, [facility] ISolone sod 0-15 10-15 Intramuscu i ty of succ 23:15: 22:47 lar, ONCE, [place] (SOLU-MEDRO 00 :00 1 dose, On Me dical L (PF)) Sat Branch injection 09/06/22 40 mg at 1815, Routine methylPREDN 2021-11- No [id number] 40mg [facility] ISolone sod 0-15 10-15 ity of succ 23:15: 22:46 [place] (SOLU-MEDRO 00 :15 Medical L (PF)) Branch injection 40 mg methylPREDN 2021-11- No [id number] 40mg [facility] ISolone sod 0-15 10-15 ity of succ 23:15: 22:47 [place] (SOLU-MEDRO 00 :00 Medical L (PF)) Branch injection 40 mg methylPREDN 2021-11- No [id number] 40mg 40 mg, [facility] ISolone sod 0-15 10-15 Intramuscu i ty of succ 23:15: 22:47 lar, ONCE, [place] (SOLU-MEDRO 00 :00 1 dose, On Me dical L (PF)) Sat Branch injection 09/06/22 40 mg at 1815, Routine azithromyci 2021-11 Yes [id number] Z-Wil = [facility] n 0-15 500 mg day ity of (ZITHROMAX 00:00: 1, [place] Z-WIL) 250 00 250 mg Medical mg tablet days 2 to Branc h 5. Z-Wil = 500mg day 1, then 250mg days 2 to 5. benzonatate 2021-11 Yes [id number] 200mg Take 2 [facility] 100 mg 0-15 capsules ity of capsule 00:00: by mouth [place] 00 every 8 Medical (eight) Branch hours as needed for Cough. guaiFENesin 2021-11 Yes [id number] 400mg Take 1 [facility] 400 mg 0-15 tablet by ity of tablet 00:00: mouth [place] 00 every 4 Medical (four) Branch hours as needed for Cough. azithromyci 2021-11 Yes [id number] Z-Wil = [facility] n 0-15 500 mg day ity of (ZITHROMAX 00:00: 1, then [place] Z-WIL) 250 00 250 mg Medical mg tablet days 2 to Branc h 5. Z-Wil = 500mg day 1, then 250mg days 2 to 5. benzonatate 2021-11 Yes [id number] 200mg Take 2 [facility] 100 mg 0-15 capsules ity of capsule 00:00: by mouth [place] 00 every 8 Medical (eight) Branch hours as needed for Cough. guaiFENesin 2021-11 Yes [id number] 400mg Take 1 [facility] 400 mg 0-15 tablet by ity of tablet 00:00: mouth [place] 00 every 4 Medical (four) Branch hours as needed for Cough. azithromyci 2021-11 Yes [id number] Z-Wil = [facility] n 0-15 500 mg day ity of (ZITHROMAX 00:00: 1, then [place] Z-WIL) 250 00 250 mg Medical mg tablet days 2 to Branc h 5. Z-Wil = 500mg day 1, then 250mg days 2 to 5. benzonatate 2021-11 Yes [id number] 200mg Take 2 [facility] 100 mg 0-15 capsules ity of capsule 00:00: by mouth [place] 00 every 8 Medical (eight) Branch hours as needed for Cough. guaiFENesin 2021-11 Yes [id number] 400mg Take 1 [facility] 400 mg 0-15 tablet by ity of tablet 00:00: mouth [place] 00 every 4 Medical (four) Branch hours as needed for Cough. azithromyci 2021-11 Yes [id number] Z-Wil = [facility] n 0-15 500 mg day ity of (ZITHROMAX 00:00: 1, then [place] Z-WIL) 250 00 250 mg Medical mg tablet days 2 to Branc h 5. Z-Wil = 500mg day 1, then 250mg days 2 to 5. benzonatate 2021-11 Yes [id number] 200mg Take 2 [facility] 100 mg 0-15 capsules ity of capsule 00:00: by mouth [place] 00 every 8 Medical (eight) Branch hours as needed for Cough. guaiFENesin 2021-11 Yes [id number] 400mg Take 1 [facility] 400 mg 0-15 tablet by ity of tablet 00:00: mouth [place] 00 every 4 Medical (four) Branch hours as needed for Cough. azithromyci 2021-11 Yes [id number] Z-Wil = [facility] n 0-15 500 mg day ity of (ZITHROMAX 00:00: 1, then [place] Z-WIL) 250 00 250 mg Medical mg tablet days 2 to Branc h 5. Z-Wil = 500mg day 1, then 250mg days 2 to 5. benzonatate 2021-11 Yes [id number] 200mg Take 2 [facility] 100 mg 0-15 capsules ity of capsule 00:00: by mouth [place] 00 every 8 Medical (eight) Branch hours as needed for Cough. guaiFENesin 2021-11 Yes [id number] 400mg Take 1 [facility] 400 mg 0-15 tablet by ity of tablet 00:00: mouth [place] 00 every 4 Medical (four) Branch hours as needed for Cough. azithromyci 2021-11 Yes [id number] Z-Wil = [facility] n 0-15 500 mg day ity of (ZITHROMAX 00:00: 1, then [place] Z-WIL) 250 00 250 mg Medical mg tablet days 2 to Branc h 5. Z-Wil = 500mg day 1, then 250mg days 2 to 5. benzonatate 2021-11 Yes [id number] 200mg Take 2 [facility] 100 mg 0-15 capsules ity of capsule 00:00: by mouth [place] 00 every 8 Medical (eight) Branch hours as needed for Cough. guaiFENesin 2021-11 Yes [id number] 400mg Take 1 [facility] 400 mg 0-15 tablet by ity of tablet 00:00: mouth [place] 00 every 4 Medical (four) Branch hours as needed for Cough. azithromyci 2021-11 Yes [id number] Z-Wil = [facility] n 0-15 500 mg day ity of (ZITHROMAX 00:00: 1, then [place] Z-WIL) 250 00 250 mg Medical mg tablet days 2 to Branc h 5. Z-Wil = 500mg day 1, then 250mg days 2 to 5. benzonatate 2021-11 Yes [id number] 200mg Take 2 [facility] 100 mg 0-15 capsules ity of capsule 00:00: by mouth [place] 00 every 8 Medical (eight) Branch hours as needed for Cough. guaiFENesin 2021-11 Yes [id number] 400mg Take 1 [facility] 400 mg 0-15 tablet by ity of tablet 00:00: mouth [place] 00 every 4 Medical (four) Branch hours as needed for Cough. azithromyci 2021-11 Yes [id number] Z-Wil = [facility] n 0-15 500 mg day ity of (ZITHROMAX 00:00: 1, then [place] Z-WIL) 250 00 250 mg Medical mg tablet days 2 to Branc h 5. Z-Wil = 500mg day 1, then 250mg days 2 to 5. benzonatate 2021-11 Yes [id number] 200mg Take 2 [facility] 100 mg 0-15 capsules ity of capsule 00:00: by mouth [place] 00 every 8 Medical (eight) Branch hours as needed for Cough. guaiFENesin 2021-11 Yes [id number] 400mg Take 1 [facility] 400 mg 0-15 tablet by ity of tablet 00:00: mouth [place] 00 every 4 Medical (four) Branch hours as needed for Cough. azithromyci 2021-11 Yes [id number] Z-Wil = [facility] n 0-15 500 mg day ity of (ZITHROMAX 00:00: 1, then [place] Z-WIL) 250 00 250 mg Medical mg tablet days 2 to Branc h 5. Z-Iwl = 500mg day 1, then 250mg days 2 to 5. benzonatate 2021-11 Yes [id number] 200mg Take 2 [facility] 100 mg 0-15 capsules ity of capsule 00:00: by mouth [place] 00 every 8 Medical (eight) Branch hours as needed for Cough. guaiFENesin 2021-11 Yes [id number] 400mg Take 1 [facility] 400 mg 0-15 tablet by ity of tablet 00:00: mouth [place] 00 every 4 Medical (four) Branch hours as needed for Cough. azithromyci 2021-11 Yes [id number] Z-Wil = [facility] n 0-15 500 mg day ity of (ZITHROMAX 00:00: 1, then [place] Z-WIL) 250 00 250 mg Medical mg tablet days 2 to Branc h 5. Z-Wil = 500mg day 1, then 250mg days 2 to 5. benzonatate 2021-11 Yes [id number] 200mg Take 2 [facility] 100 mg 0-15 capsules ity of capsule 00:00: by mouth [place] 00 every 8 Medical (eight) Branch hours as needed for Cough. guaiFENesin 2021-11 Yes [id number] 400mg Take 1 [facility] 400 mg 0-15 tablet by ity of tablet 00:00: mouth [place] 00 every 4 Medical (four) Branch hours as needed for Cough. azithromyci 2021-11 Yes [id number] Z-Wil = [facility] n 0-15 500 mg day ity of (ZITHROMAX 00:00: 1, then [place] Z-WIL) 250 00 250 mg Medical mg tablet days 2 to Branc h 5. Z-Wil = 500mg day 1, then 250mg days 2 to 5. benzonatate 2021-11 Yes [id number] 200mg Take 2 [facility] 100 mg 0-15 capsules ity of capsule 00:00: by mouth [place] 00 every 8 Medical (eight) Branch hours as needed for Cough. guaiFENesin 2021-11 Yes [id number] 400mg Take 1 [facility] 400 mg 0-15 tablet by ity of tablet 00:00: mouth [place] 00 every 4 Medical (four) Branch hours as needed for Cough. azithromyci 2021-11 Yes [id number] Z-Wil = [facility] n 0-15 500 mg day ity of (ZITHROMAX 00:00: 1, then [place] Z-WIL) 250 00 250 mg Medical mg tablet days 2 to Branc h 5. Z-Wil = 500mg day 1, then 250mg days 2 to 5. benzonatate 2021-11 Yes [id number] 200mg Take 2 [facility] 100 mg 0-15 capsules ity of capsule 00:00: by mouth [place] 00 every 8 Medical (eight) Branch hours as needed for Cough. guaiFENesin 2021-11 Yes [id number] 400mg Take 1 [facility] 400 mg 0-15 tablet by ity of tablet 00:00: mouth [place] 00 every 4 Medical (four) Branch hours as needed for Cough. azithromyci 2021-11 Yes [id number] Z-Wil = [facility] n 0-15 500 mg day ity of (ZITHROMAX 00:00: 1, then [place] Z-WIL) 250 00 250 mg Medical mg tablet days 2 to Branc h 5. Z-Wil = 500mg day 1, then 250mg days 2 to 5. benzonatate 2021-11 Yes [id number] 200mg Take 2 [facility] 100 mg 0-15 capsules ity of capsule 00:00: by mouth [place] 00 every 8 Medical (eight) Branch hours as needed for Cough. guaiFENesin 2021-11 Yes [id number] 400mg Take 1 [facility] 400 mg 0-15 tablet by ity of tablet 00:00: mouth [place] 00 every 4 Medical (four) Branch hours as needed for Cough. azithromyci 2021-11 Yes [id number] Z-Wil = [facility] n 0-15 500 mg day ity of (ZITHROMAX 00:00: 1, then [place] Z-WIL) 250 00 250 mg Medical mg tablet days 2 to Branc h 5. Z-Wil = 500mg day 1, then 250mg days 2 to 5. benzonatate 2021-11 Yes [id number] 200mg Take 2 [facility] 100 mg 0-15 capsules ity of capsule 00:00: by mouth [place] 00 every 8 Medical (eight) Branch hours as needed for Cough. guaiFENesin 2021-11 Yes [id number] 400mg Take 1 [facility] 400 mg 0-15 tablet by ity of tablet 00:00: mouth [place] 00 every 4 Medical (four) Branch hours as needed for Cough. azithromyci 2021-11 Yes [id number] Z-Wil = [facility] n 0-15 500 mg day ity of (ZITHROMAX 00:00[place] Z-WIL[place] 250 00 250 mg [facility] mg tablet days 2 to Branc h 5. Z-Wil = 500mg day 1, then 250mg days 2 to 5. benzonatate 2021-11 Yes [id number] 200mg Take 2 [facility] 100 mg 0-15 capsules ity of capsule 00:00: by mouth [place] 00 every 8 Medical (eight) Branch hours as needed for Cough. guaiFENesin 2021-11 Yes [id number] 400mg Take 1 [facility] 400 mg 0-15 tablet by ity of tablet 00:00: mouth [place] 00 every 4 Medical (four) Branch hours as needed for Cough. azithromyci 2021-11 Yes [id number] Z-Wil = [facility] 0-15 500 mg day ity of (ZITHROMAX 00:00[place] 1[place] Z-WIL[place] 250 00 250 mg Medical mg tablet days 2 to Branc h 5. Z-Wil = 500mg day 1, then 250mg days 2 to 5. benzonatate 2021-11 Yes [id number] 200mg Take 2 [facility] 100 mg 0-15 capsules ity of capsule 00:00: by mouth [place] 00 every 8 Medical (eight) Branch hours as needed for Cough. guaiFENesin 2021-11 Yes [id number] 400mg Take 1 [facility] 400 mg 0-15 tablet by ity of tablet 00:00: mouth [place] 00 every 4 Medical (four) Branch hours as needed for Cough. azithromyci 2021-11 Yes [id number] Z-Wil = [facility] n 0-15 500 mg day ity of (ZITHROMAX 00:[place] [facility]-WIL[place] 250 00 250 mg Medical mg tablet days 2 to Branc h 5. Z-Wil = 500mg day 1, then 250mg days 2 to 5. benzonatate 2021-11 Yes [id number] 200mg Take 2 [facility] 100 mg 0-15 capsules ity of capsule 00:00: by mouth [place] 00 every 8 Medical (eight) Branch hours as needed for Cough. guaiFENesin 2021-11 Yes [id number] 400mg Take 1 [facility] 400 mg 0-15 tablet by ity of tablet 00:00: mouth [place] 00 every 4 Medical (four) Branch hours as needed for Cough. azithromyci 2021-11 Yes [id number] Z-Wil = [facility] n 0-15 500 mg day ity of (ZITHROMAX 00:00: [place] Z-WIL[place] 250 00 250 mg Medical mg tablet days 2 to Branc h 5. Z-Wil = 500mg day 1, then 250mg days 2 to 5. benzonatate 2021-11 Yes [id number] 200mg Take 2 [facility] 100 mg 0-15 capsules ity of capsule 00:00: by mouth [place] 00 every 8 Medical (eight) Branch hours as needed for Cough. guaiFENesin 2021-11 Yes [id number] 400mg Take 1 [facility] 400 mg 0-15 tablet by ity of tablet 00:00: mouth [place] 00 every 4 Medical (four) Branch hours as needed for Cough. azithromyci 2021-11 Yes [id number] Z-Wil = [facility] n 0-15 500 mg day ity of (ZITHROMAX 00:00: [place] Z-WIL[place] 250 00 250 mg Medical mg tablet days 2 to Branc h 5. Z-Wil = 500mg day 1, then 250mg days 2 to 5. benzonatate 2021-11 Yes [id number] 200mg Take 2 [facility] 100 mg 0-15 capsules ity of capsule 00:00: by mouth [place] 00 every 8 Medical (eight) Branch hours as needed for Cough. guaiFENesin 2021-11 Yes [id number] 400mg Take 1 [facility] 400 mg 0-15 tablet by ity of tablet 00:00: mouth [place] 00 every 4 Medical (four) Branch hours as needed for Cough. azithromyci 2021-11 Yes [id number] Z-Wil = [facility] n 0-15 500 mg day ity of (ZITHROMAX 00:00: [place] Z-WIL[place] 250 00 250 mg Medical mg tablet days 2 to Branc h 5. Z-Wil = 500mg day 1, then 250mg days 2 to 5. benzonatate 2021-11 Yes [id number] 200mg Take 2 [facility] 100 mg 0-15 capsules ity of capsule 00:00: by mouth [place] 00 every 8 Medical (eight) Branch hours as needed for Cough. guaiFENesin 2021-11 Yes [id number] 400mg Take 1 [facility] 400 mg 0-15 tablet by ity of tablet 00:00: mouth [place] 00 every 4 Medical (four) Branch hours as needed for Cough. azithromyci 2021-11 Yes [id number] Z-Wil = [facility] n 0-15 500 mg day ity of (ZITHROMAX 00:00: [place] Z-WIL[place] 250 00 250 mg Medical mg tablet days 2 to Branc h 5. Z-Wil = 500mg day 1, then 250mg days 2 to 5. benzonatate 2021-11 Yes [id number] 200mg Take 2 [facility] 100 mg 0-15 capsules ity of capsule 00:00: by mouth [place] 00 every 8 Medical (eight) Branch hours as needed for Cough. guaiFENesin 2021-11 Yes [id number] 400mg Take 1 [facility] 400 mg 0-15 tablet by ity of tablet 00:00: mouth [place] 00 every 4 Medical (four) Branch hours as needed for Cough. azithromyci 2021-11 Yes [id number] Z-Wil = [facility] n 0-15 500 mg day ity of (ZITHROMAX 00:00: [place] Z-WIL[place] 250 00 250 mg Medical mg tablet days 2 to Branc h 5. Z-Wil = 500mg day 1, then 250mg days 2 to 5. benzonatate 2021-11 Yes [id number] 200mg Take 2 [facility] 100 mg 0-15 capsules ity of capsule 00:00: by mouth [place] 00 every 8 Medical (eight) Branch hours as needed for Cough. guaiFENesin 2021-11 Yes [id number] 400mg Take 1 [facility] 400 mg 0-15 tablet by ity of tablet 00:00: mouth [place] 00 every 4 Medical (four) Branch hours as needed for Cough. azithromyci 2021-11 Yes [id number] Z-Wil = [facility] n 0-15 500 mg day ity of (ZITHROMAX 00:00: [place] Z-WIL[place] 250 00 250 mg Medical mg tablet days 2 to Branc h 5. Z-Wil = 500mg day 1, then 250mg days 2 to 5. benzonatate 2021-11 Yes [id number] 200mg Take 2 [facility] 100 mg 0-15 capsules ity of capsule 00:00: by mouth [place] 00 every 8 Medical (eight) Branch hours as needed for Cough. guaiFENesin 2021-11 Yes [id number] 400mg Take 1 [facility] 400 mg 0-15 tablet by ity of tablet 00:00: mouth [place] 00 every 4 Medical (four) Branch hours as needed for Cough. azithromyci 2021-11 Yes [id number] Z-Wil = [facility] n 0-15 500 mg day ity of (ZITHROMAX 00:00: [place] Z-WIL[place] 250 00 250 mg Medical mg tablet days 2 to Branc h 5. Z-Wil = 500mg day 1, then 250mg days 2 to 5. benzonatate 2021-11 Yes [id number] 200mg Take 2 [facility] 100 mg 0-15 capsules ity of capsule 00:00: by mouth [place] 00 every 8 Medical (eight) Branch hours as needed for Cough. guaiFENesin 2021-11 Yes [id number] 400mg Take 1 [facility] 400 mg 0-15 tablet by ity of tablet 00:00: mouth [place] 00 every 4 Medical (four) Branch hours as needed for Cough. azithromyci 2021-11 Yes [id number] Z-Wil = [facility] n 0-15 500 mg day ity of (ZITHROMAX 00:00: [place] Z-WIL[place] 250 00 250 mg Medical mg tablet days 2 to Branc h 5. Z-Wil = 500mg day 1, then 250mg days 2 to 5. benzonatate 2021-11 Yes [id number] 200mg Take 2 [facility] 100 mg 0-15 capsules ity of capsule 00:00: by mouth [place] 00 every 8 Medical (eight) Branch hours as needed for Cough. guaiFENesin 2021-11 Yes [id number] 400mg Take 1 [facility] 400 mg 0-15 tablet by ity of tablet 00:00: mouth [place] 00 every 4 Medical (four) Branch hours as needed for Cough. azithromyci 2021-11 Yes [id number] Z-Wil = [facility] n 0-15 500 mg day ity of (ZITHROMAX 00:00: [place], [place] Z-WIL[place] 250 00 250 mg Medical mg tablet days 2 to Branc h 5. Z-Wil = 500mg day 1, then 250mg days 2 to 5. benzonatate 2021-11 Yes [id number] 200mg Take 2 [facility] 100 mg 0-15 capsules ity of capsule 00:00: by mouth [place] 00 every 8 Medical (eight) Branch hours as needed for Cough. guaiFENesin 2021-11 Yes [id number] 400mg Take 1 [facility] 400 mg 0-15 tablet by ity of tablet 00:00: mouth [place] 00 every 4 Medical (four) Branch hours as needed for Cough. azithromyci 2021-11 Yes [id number] Z-Wil = [facility] n 0-15 500 mg day ity of (ZITHROMAX 00:00: [place] Z-WIL[place] 250 00 250 mg Medical mg tablet days 2 to Branc h 5. Z-Wil = 500mg day 1, then 250mg days 2 to 5. benzonatate 2021-11 Yes [id number] 200mg Take 2 [facility] 100 mg 0-15 capsules ity of capsule 00:00: by mouth [place] 00 every 8 Medical (eight) Branch hours as needed for Cough. guaiFENesin 2021-11 Yes [id number] 400mg Take 1 [facility] 400 mg 0-15 tablet by ity of tablet 00:00: mouth [place] 00 every 4 Medical (four) Branch hours as needed for Cough. azithromyci 2021-11 Yes [id number] Z-Wil = [facility] n 0-15 500 mg day ity of (ZITHROMAX 00:00: [place], [place] Z-WIL[place] 250 00 250 mg Medical mg tablet days 2 to Branc h 5. Z-Wil = 500mg day 1, then 250mg days 2 to 5. benzonatate 2021-11 Yes [id number] 200mg Take 2 [facility] 100 mg 0-15 capsules ity of capsule 00:00: by mouth [place] 00 every 8 Medical (eight) Branch hours as needed for Cough. guaiFENesin 2021-11 Yes [id number] 400mg Take 1 [facility] 400 mg 0-15 tablet by ity of tablet 00:00: mouth [place] 00 every 4 Medical (four) Branch hours as needed for Cough. azithromyci 2021-11 Yes [id number] Z-Wil = [facility] n 0-15 500 mg day ity of (ZITHROMAX 00:00: [place] Z-WIL[place] 250 00 250 mg Medical mg tablet days 2 to Branc h 5. Z-Wil = 500mg day 1, then 250mg days 2 to 5. benzonatate 2021-11 Yes [id number] 200mg Take 2 [facility] 100 mg 0-15 capsules ity of capsule 00:00: by mouth [place] 00 every 8 Medical (eight) Branch hours as needed for Cough. guaiFENesin 2021-11 Yes [id number] 400mg Take 1 [facility] 400 mg 0-15 tablet by ity of tablet 00:00: mouth [place] 00 every 4 Medical (four) Branch hours as needed for Cough. guaiFENesin 2021-11 Yes [id number] 400mg Take 1 [facility] 400 mg 0-15 tablet by ity of tablet 00:00: mouth [place] 00 every 4 Medical (four) Branch hours as needed for Cough. guaiFENesin 2021-11 Yes [id number] 400mg Take 1 [facility] 400 mg 0-15 tablet by ity of tablet 00:00: mouth [place] 00 every 4 Medical (four) Branch hours as needed for Cough. guaiFENesin 2021-11 Yes [id number] 400mg Take 1 [facility] 400 mg 0-15 tablet by ity of tablet 00:00: mouth [place] 00 every 4 Medical (four) Branch hours as needed for Cough. guaiFENesin 2021-11 Yes [id number] 400mg Take 1 [facility] 400 mg 0-15 tablet by ity of tablet 00:00: mouth [place] 00 every 4 Medical (four) Branch hours as needed for Cough. guaiFENesin 2021-11- No [id number] 400mg Take 1 [facility] 400 mg 0-15 11- tablet by ity of tablet 00:00: 00:00 mouth [place] 00 :00 every 4 Medical (four) Branch hours as needed for Cough. azithromyci 2021-11- No [id number] Z-Wil = [facility] n 0-15 10-31 500 mg day ity of (ZITHROMAX 00:00: 00:00 1, then [place] Z-WIL) 250 00 :00 250 mg Medical mg tablet days 2 to Branc h 5. Z-Wil = 500mg day 1, then 250mg days 2 to 5. benzonatate 2021-11- No [id number] 200mg Take 2 [facility] 100 mg 0-15 10-31 capsules ity of capsule 00:00: 00:00 by mouth [place] 00 :00 every 8 Medical (eight) Branch hours as needed for Cough. azithromyci 2021-11- No [id number] Z-Wil = [facility] n 0-15 10-31 500 mg day ity of (ZITHROMAX 00:00: 00:00 1, then [place] Z-WIL) 250 00 :00 250 mg Medical mg tablet days 2 to Branc h 5. Z-Wil = 500mg day 1, then 250mg days 2 to 5. benzonatate 2021-11- No [id number] 200mg Take 2 [facility] 100 mg 0-15 10-31 capsules ity of capsule 00:00: 00:00 by mouth [place] 00 :00 every 8 Medical (eight) Branch hours as needed for Cough. predniSONE 2021-11- No [id number] 40mg Take 2 [facility] 20 mg 0-15 10-21 tablets by ity of tablet 00:00: 04:59 mouth in [place] 00 :00 the Medical morning Branch for 5 days. predniSONE 2021-11- No [id number] 40mg Take 2 [facility] 20 mg 0-15 10-21 tablets by ity of tablet 00:00: 04:59 mouth in [place] 00 :00 the Medical morning Branch for 5 days. predniSONE 2021-11- No [id number] 40mg Take 2 [facility] 20 mg 0-15 10-21 tablets by ity of tablet 00:00: 04:59 mouth in [place] 00 :00 the Medical morning Branch for 5 days. predniSONE 2021-11- No [id number] 40mg Take 2 [facility] 20 mg 0-15 10-21 tablets by ity of tablet 00:00: 04:59 mouth in [place] 00 :00 the [facility] morning Branch for 5 days. predniSONE 2021-11- No [id number] 40mg Take 2 [facility] 20 mg 0-15 10-21 tablets by ity of tablet 00:00: 04:59 mouth in [place] 00 :00 the [facility] morning Branch for 5 days. predniSONE 2021-11- No [id number] 40mg Take 2 [facility] 20 mg 0-15 10-21 tablets by ity of tablet 00:00: 04:59 mouth in [place] 00 :00 the [facility] morning Branch for 5 days. predniSONE 2021-11- No [id number] 40mg Take 2 [facility] 20 mg 0-15 10-21 tablets by ity of tablet 00:00: 04:59 mouth in [place] 00 :00 the [facility] morning Branch for 5 days. predniSONE 2021-11- No [id number] 40mg Take 2 [facility] 20 mg 0-15 10-21 tablets by ity of tablet 00:00: 04:59 mouth in [place] 00 :00 the Medical morning Branch for 5 days. predniSONE 2021-2021- No [id number] 40mg Take 2 [facility] 20 mg 0-15 10-21 tablets by ity of tablet 00:00: 04:59 mouth in [place] 00 :00 the Medical morning Branch for 5 days. predniSONE 2021-2021- No [id number] 40mg Take 2 [facility] 20 mg 0-15 10-21 tablets by ity of tablet 00:00: 04:59 mouth in [place] 00 :00 the Medical morning [place] for 5 days. predniSONE 2021-11- No [id number] 40mg Take 2 [facility] 20 mg 0-15 10-21 tablets by ity of tablet 00:00: 04:59 mouth in [place] 00 :00 the [facility] morning Branch for 5 days. predniSONE 2021-11- No [id number] 40mg Take 2 [facility] 20 mg 0-15 10-21 tablets by ity of tablet 00:00: 04:59 mouth in [place] 00 :[address] [facility] for 5 days. semaglutide 2021-11 Yes [id number] .5mg inject 0.5 Univers (OZEMPIC) 0-07 mg under ity of 0.25 mg or 00:00: the skin [place] 0.5 mg(2 00 weekly. Medical mg/1.5 mL) Branch PnMukund flash 2021-11 Yes [id number] 1{each} inject 1 Un lesly glucose 0-07 Each under ity of sensor 00:00: the skin [place] (FREESTYLE 00 every 2 Medica l CHON 2 (two) Branch SENSOR) Kit weeks. semaglutide 2021-11 Yes [id number] .5mg inject 0.5 [facility] (OZEMPIC) 0-07 mg under ity of 0.25 mg or 00:00: the skin [place] 0.5 mg(2 00 weekly. Medical mg/1.5 mL) Branch PnMukund flash 2021-11 Yes [id number] 1{each} inject 1 Un lesly glucose 0-07 Each under ity of sensor 00:00: the skin [place] (FREESTYLE 00 every 2 Medica l CHON 2 (two) Branch SENSOR) Kit weeks. semaglutide 2021-11 Yes [id number] .5mg inject 0.5 [facility] (OZEMPIC) 0-07 mg under ity of 0.25 mg or 00:00: the skin [place] 0.5 mg(2 00 weekly. Medical mg/1.5 mL) Branch PnIj flash 2021-11 Yes [id number] 1{each} inject 1 Un lesly glucose 0-07 Each under ity of sensor 00:00: the skin [place] (FREESTYLE 00 every 2 Medica l CHON 2 (two) Branch SENSOR) Kit weeks. semaglutide 2021-11 Yes [id number] .[id number] inject 0.5 [facility] (OZEMPIC) 0-07 mg under ity of 0.25 mg or 00:00: the skin [place] 0.5 mg(2 00 weekly. Medical mg/1.5 mL) Branch Surya flash 2021-11 Yes [id number] 1{each} inject 1 Un lesly glucose 0-07 Each under ity of sensor 00:00: the skin [place] (FREESTYLE 00 every 2 Medica l CHON 2 (two) Branch SENSOR) Kit weeks. semaglutide 2021-11 Yes [id number] .5mg inject 0.5 Univers (OZEMPIC) 0-07 mg under ity of 0.25 mg or 00:00: the skin [place] 0.5 mg(2 00 weekly. Medical mg/1.5 mL) Branch Surya busby 2021-11 Yes [id number] 1{each} inject 1 Un lesly glucose 0-07 Each under ity of sensor 00:00: the skin [place] (FREESTYLE 00 every 2 Medica l CHON 2 (two) Branch SENSOR) Kit weeks. semaglutide 2021-11 Yes [id number] .5mg inject 0.5 Univers (OZEMPIC) 0-07 mg under ity of 0.25 mg or 00:00: the skin [place] 0.5 mg(2 00 weekly. Medical mg/1.5 mL) Branch Surya busby 2021-11 Yes [id number] 1{each} inject 1 Un lesly glucose 0-07 Each under ity of sensor 00:00: the skin [place] (FREESTYLE 00 every 2 Medica l CHON 2 (two) Branch SENSOR) Kit weeks. semaglutide 2021-11 Yes [id number] .[id number] inject 0.5 Univers (OZEMPIC) 0-07 mg under ity of 0.25 mg or 00:00: the skin [place] 0.5 mg(2 00 weekly. Medical mg/1.5 mL) Branch Surya busby 2021-11 Yes [id number] 1{each} inject 1 Un lesly glucose 0-07 Each under ity of sensor 00:00: the skin [place] (FREESTYLE 00 every 2 Medica l CHON 2 (two) Branch SENSOR) Kit weeks. semaglutide 2021-11 Yes [id number] .5mg inject 0.5 Univers (OZEMPIC) 0-07 mg under ity of 0.25 mg or 00:00: the skin [place] 0.5 mg(2 00 weekly. Medical mg/1.5 mL) Branch PnIj flash 2021-11 Yes [id number] 1{each} inject 1 Un lesly glucose 0-07 Each under ity of sensor 00:00: the skin [place] (FREESTYLE 00 every 2 Medica l CHON 2 (two) Branch SENSOR) Kit weeks. semaglutide 2021-11 Yes [id number] .5mg inject 0.5 [facility] (OZEMPIC) 0-07 mg under ity of 0.25 mg or 00:00: the skin [place] 0.5 mg(2 00 weekly. Medical mg/1.5 mL) Branch PnIj flash 2021-11 Yes [id number] 1{each} inject 1 Un lesly glucose 0-07 Each under ity of sensor 00:00: the skin [place] (FREESTYLE 00 every 2 Medica l CHON 2 (two) Branch SENSOR) Kit weeks. semaglutide 2021-11 Yes [id number] .5mg inject 0.5 Univers (OZEMPIC) 0-07 mg under ity of 0.25 mg or 00:00: the skin [place] 0.5 mg(2 00 weekly. Medical mg/1.5 mL) Branch PnIj flash 2021-11 Yes [id number] 1{each} inject 1 Un lesly glucose 0-07 Each under ity of sensor 00:00: the skin [place] (FREESTYLE 00 every 2 Medica l CHON 2 (two) Branch SENSOR) Kit weeks. semaglutide 2021-11 Yes [id number] .[id number] inject 0.5 Univers (OZEMPIC) 0-07 mg under ity of 0.25 mg or 00:00: the skin [place] 0.5 mg(2 00 weekly. Medical mg/1.5 mL) Branch Pn flash 2021-11 Yes [id number] 1{each} inject 1 Un lesly glucose 0-07 Each under ity of sensor 00:00: the skin [place] (FREESTYLE 00 every 2 Medica l CHON 2 (two) Branch SENSOR) Kit weeks. semaglutide 2021-11 Yes [id number] .[id number] inject 0.5 Univers (OZEMPIC) 0-07 mg under ity of 0.25 mg or 00:00: the skin [place] 0.5 mg(2 00 weekly. Medical mg/1.5 mL) Branch PnIj flash 2021-11 Yes [id number] 1{each} inject 1 Un lesly glucose 0-07 Each under ity of sensor 00:00: the skin [place] (FREESTYLE 00 every 2 Medica l CHON 2 (two) Branch SENSOR) Kit weeks. semaglutide 2021-11 Yes [id number] .5mg inject 0.5 Univers (OZEMPIC) 0-07 mg under ity of 0.25 mg or 00:00: the skin [place] 0.5 mg(2 00 weekly. Medical mg/1.5 mL) Branch Pn flash 2021-11 Yes [id number] 1{each} inject 1 Un lesly glucose 0-07 Each under ity of sensor 00:00: the skin [place] (FREESTYLE 00 every 2 Medica l CHON 2 (two) Branch SENSOR) Kit weeks. semaglutide 2021-11 Yes [id number] .[id number] inject 0.5 Univers (OZEMPIC) 0-07 mg under ity of 0.25 mg or 00:00: the skin [place] 0.5 mg(2 00 weekly. Medical mg/1.5 mL) Branch [facility] flash 2021-11 Yes [id number] 1{each} inject 1 Un lesly glucose 0-07 Each under ity of sensor 00:00: the skin [place] (FREESTYLE 00 every 2 Medica l CHON 2 (two) Branch SENSOR) Kit weeks. semaglutide 2021-11 Yes [id number] .5mg inject 0.5 Univers (OZEMPIC) 0-07 mg under ity of 0.25 mg or 00:00: the skin [place] 0.5 mg(2 00 weekly. Medical mg/1.5 mL) Branch [facility] flash 2021-11 Yes [id number] 1{each} inject 1 Un lesly glucose 0-07 Each under ity of sensor 00:00: the skin [place] (FREESTYLE 00 every 2 Medica l CHON 2 (two) Branch SENSOR) Kit weeks. semaglutide 2021-11 Yes [id number] .5mg inject 0.5 Univers (OZEMPIC) 0-07 mg under ity of 0.25 mg or 00:00: the skin [place] 0.5 mg(2 00 weekly. Medical mg/1.5 mL) Branch PnIj flash 2021-11 Yes [id number] 1{each} inject 1 Un lesly glucose 0-07 Each under ity of sensor 00:00: the skin [place] (FREESTYLE 00 every 2 Medica l CHON 2 (two) Branch SENSOR) Kit weeks. semaglutide 2021-11 Yes [id number] .5mg inject 0.5 Univers (OZEMPIC) 0-07 mg under ity of 0.25 mg or 00:00: the skin [place] 0.5 mg(2 00 weekly. Medical mg/1.5 mL) Branch PnIj flash 2021-11 Yes [id number] 1{each} inject 1 Un lesly glucose 0-07 Each under ity of sensor 00:00: the skin [place] (FREESTYLE 00 every 2 Medica l CHON 2 (two) Branch SENSOR) Kit weeks. semaglutide 2021-11 Yes [id number] .5mg inject 0.5 Univers (OZEMPIC) 0-07 mg under ity of 0.25 mg or 00:00: the skin [place] 0.5 mg(2 00 weekly. Medical mg/1.5 mL) Branch PnIj flash 2021-11 Yes [id number] 1{each} inject 1 Un lesly glucose 0-07 Each under ity of sensor 00:00: the skin [place] (FREESTYLE 00 every 2 Medica l CHON 2 (two) Branch SENSOR) Kit weeks. semaglutide 2021-11 Yes [id number] .5mg inject 0.5 Univers (OZEMPIC) 0-07 mg under ity of 0.25 mg or 00:00: the skin [place] 0.5 mg(2 00 weekly. Medical mg/1.5 mL) Branch PnIj flash 2021-11 Yes [id number] 1{each} inject 1 Un lesly glucose 0-07 Each under ity of sensor 00:00: the skin [place] (FREESTYLE 00 every 2 Medica l CHON 2 (two) Branch SENSOR) Kit weeks. semaglutide 2021-11 Yes [id number] .5mg inject 0.5 Univers (OZEMPIC) 0-07 mg under ity of 0.25 mg or 00:00: the skin [place] 0.5 mg(2 00 weekly. Medical mg/1.5 mL) Branch PnIj flash 2021-11 Yes [id number] 1{each} inject 1 Un lesly glucose 0-07 Each under ity of sensor 00:00: the skin [place] (FREESTYLE 00 every 2 Medica l CHON 2 (two) Branch SENSOR) Kit weeks. semaglutide 2021-11 Yes [id number] .5mg inject 0.5 Univers (OZEMPIC) 0-07 mg under ity of 0.25 mg or 00:00: the skin [place] 0.5 mg(2 00 weekly. Medical mg/1.5 mL) Branch [facility] 2021-11 Yes [id number] 1{each} inject 1 Un lesly glucose 0-07 Each under ity of sensor 00:00: the skin [place] (FREESTYLE 00 every 2 Medica l CHON 2 (two) Branch SENSOR) Kit weeks. semaglutide 2021-11 Yes [id number] .5mg inject 0.5 Univers (OZEMPIC) 0-07 mg under ity of 0.25 mg or 00:00: the skin [place] 0.5 mg(2 00 weekly. Medical mg/1.5 mL) Branch [facility] 2021-11 Yes [id number] 1{each} inject 1 Un lesly glucose 0-07 Each under ity of sensor 00:00: the skin [place] (FREESTYLE 00 every 2 Medica l CHON 2 (two) Branch SENSOR) Kit weeks. semaglutide 2021-11 Yes [id number] .5mg inject 0.5 Univers (OZEMPIC) 0-07 mg under ity of 0.25 mg or 00:00: the skin [place] 0.5 mg(2 00 weekly. Medical mg/1.5 mL) Branch [facility] 2021-11 Yes [id number] 1{each} inject 1 Un lesly glucose 0-07 Each under ity of sensor 00:00: the skin [place] (FREESTYLE 00 every 2 Medica l CHON 2 (two) Branch SENSOR) Kit weeks. semaglutide 2021-11 Yes [id number] .5mg inject 0.5 Univers (OZEMPIC) 0-07 mg under ity of 0.25 mg or 00:00: the skin [place] 0.5 mg(2 00 weekly. Medical mg/1.5 mL) Branch [facility] 2021-11 Yes [id number] 1{each} inject 1 Un lesly glucose 0-07 Each under ity of sensor 00:00: the skin [place] (FREESTYLE 00 every 2 Medica l CHON 2 (two) Branch SENSOR) Kit weeks. semaglutide 2021-11 Yes [id number] .5mg inject 0.5 Univers (OZEMPIC) 0-07 mg under ity of 0.25 mg or 00:00: the skin [place] 0.5 mg(2 00 weekly. Medical mg/1.5 mL) Branch PnIj flash 2021-11 Yes [id number] 1{each} inject 1 Un lesly glucose 0-07 Each under ity of sensor 00:00: the skin [place] (FREESTYLE 00 every 2 Medica l CHON 2 (two) Branch SENSOR) Kit weeks. semaglutide 2021-11 Yes [id number] .5mg inject 0.5 Univers (OZEMPIC) 0-07 mg under ity of 0.25 mg or 00:00: the skin [place] 0.5 mg(2 00 weekly. Medical mg/1.5 mL) Branch PnIj flash 2021-11 Yes [id number] 1{each} inject 1 Un lesly glucose 0-07 Each under ity of sensor 00:00: the skin [place] (FREESTYLE 00 every 2 Medica l CHON 2 (two) Branch SENSOR) Kit weeks. semaglutide 2021-11 Yes [id number] .5mg inject 0.5 Univers (OZEMPIC) 0-07 mg under ity of 0.25 mg or 00:00: the skin [place] 0.5 mg(2 00 weekly. Medical mg/1.5 mL) Branch PnIj flash 2021-11 Yes [id number] 1{each} inject 1 Un lesly glucose 0-07 Each under ity of sensor 00:00: the skin [place] (FREESTYLE 00 every 2 Medica l CHON 2 (two) Branch SENSOR) Kit weeks. semaglutide 2021-11 Yes [id number] .5mg inject 0.5 Univers (OZEMPIC) 0-07 mg under ity of 0.25 mg or 00:00: the skin [place] 0.5 mg(2 00 weekly. Medical mg/1.5 mL) Branch PnIj flash 2021-11 Yes [id number] 1{each} inject 1 Un lesly glucose 0-07 Each under ity of sensor 00:00: the skin [place] (FREESTYLE 00 every 2 Medica l CHON 2 (two) Branch SENSOR) Kit weeks. semaglutide 2021-11 Yes [id number] .5mg inject 0.5 Univers (OZEMPIC) 0-07 mg under ity of 0.25 mg or 00:00: the skin [place] 0.5 mg(2 00 weekly. Medical mg/1.5 mL) Branch [facility] 2021-11 Yes [id number] 1{each} inject 1 Un lesly glucose 0-07 Each under ity of sensor 00:00: the skin [place] (FREESTYLE 00 every 2 Medica l CHON 2 (two) Branch SENSOR) Kit weeks. semaglutide 2021-11 Yes [id number] .5mg inject 0.5 Univers (OZEMPIC) 0-07 mg under ity of 0.25 mg or 00:00: the skin [place] 0.5 mg(2 00 weekly. Medical mg/1.5 mL) Branch [facility] 2021-11 Yes [id number] 1{each} inject 1 Un lesly glucose 0-07 Each under ity of sensor 00:00: the skin [place] (FREESTYLE 00 every 2 Medica l CHON 2 (two) Branch SENSOR) Kit weeks. semaglutide 2021-11 Yes [id number] .5mg inject 0.5 [facility] (OZEMPIC) 0-07 mg under ity of 0.25 mg or 00:00: the skin [place] 0.5 mg(2 00 weekly. Medical mg/1.5 mL) Branch [facility] 2021-11 Yes [id number] 1{each} inject 1 Un lesly glucose 0-07 Each under ity of sensor 00:00: the skin [place] (FREESTYLE 00 every 2 Medica l CHON 2 (two) Branch SENSOR) Kit weeks. semaglutide 2021-11 Yes [id number] .5mg inject 0.5 [facility] (OZEMPIC) 0-07 mg under ity of 0.25 mg or 00:00: the skin [place] 0.5 mg(2 00 weekly. Medical mg/1.5 mL) Branch [facility] 2021-11 Yes [id number] 1{each} inject 1 Un lesly glucose 0-07 Each under ity of sensor 00:00: the skin [place] (FREESTYLE 00 every 2 Medica l CHON 2 (two) Branch SENSOR) Kit weeks. semaglutide 2021-11 Yes [id number] .5mg inject 0.5 [facility] (OZEMPIC) 0-07 mg under ity of 0.25 mg or 00:00: the skin [place] 0.5 mg(2 00 weekly. Medical mg/1.5 mL) Branch PnIj semaglutide 2021-11 Yes [id number] .5mg inject 0.5 [facility] (OZEMPIC) 0-07 mg under ity of 0.25 mg or 00:00: the skin [place] 0.5 mg(2 00 weekly. Medical mg/1.5 mL) Branch PnIj semaglutide 2021-11 Yes [id number] .5mg inject 0.5 [facility] (OZEMPIC) 0-07 mg under ity of 0.25 mg or 00:00: the skin [place] 0.5 mg(2 00 weekly. Medical mg/1.5 mL) Branch PnIj semaglutide 2021-11 Yes [id number] .5mg inject 0.5 [facility] (OZEMPIC) 0-07 mg under ity of 0.25 mg or 00:00: the skin [place] 0.5 mg(2 00 weekly. Medical mg/1.5 mL) Branch AnivalIj semaglutide 2021-11 Yes [id number] .5mg inject 0.5 [facility] (OZEMPIC) 0-07 mg under ity of 0.25 mg or 00:00: the skin [place] 0.5 mg(2 00 weekly. Medical mg/1.5 mL) Branch AnivalIj semaglutide 2021-11 Yes [id number] .5mg inject 0.5 [facility] (OZEMPIC) 0-07 mg under ity of 0.25 mg or 00:00: the skin [place] 0.5 mg(2 00 weekly. Medical mg/1.5 mL) Branch [facility] semaglutide 2021-11 Yes [id number] .[id number] inject 0.5 [facility] ([facility]) 0-07 mg under ity of 0.25 mg or 00:00: the skin [place] 0.5 mg(2 00 weekly. Medical mg/1.5 mL) Branch [facility] semaglutide 2021-11 Yes [id number] .[id number] inject 0.5 [facility] (OZEMPIC) 0-07 mg under ity of 0.25 mg or 00:00: the skin [place] 0.5 mg(2 00 weekly. Medical mg/1.5 mL) Branch [facility] semaglutide 2021-11 Yes [id number] .[id number] inject 0.5 [facility] (OZEMPIC) 0-07 mg under ity of 0.25 mg or 00:00: the skin [place] 0.5 mg(2 00 weekly. Medical mg/1.5 mL) Branch [facility] semaglutide 2021-11 Yes [id number] .[id number] inject 0.5 [facility] (OZEMPIC) 0-07 mg under ity of 0.25 mg or 00:00: the skin [place] 0.5 mg(2 00 weekly. Medical mg/1.5 mL) Branch [facility] semaglutide 2021-11 Yes [id number] .5mg inject 0.5 [facility] (OZEMPIC) 0-07 mg under ity of 0.25 mg or 00:00: the skin [place] 0.5 mg(2 00 weekly. Medical mg/1.5 mL) Branch [facility] semaglutide 2021-11 Yes [id number] .[id number] inject 0.5 [facility] (OZEMPIC) 0-07 mg under ity of 0.25 mg or 00:00: the skin [place] 0.5 mg(2 00 weekly. Medical mg/1.5 mL) Branch [facility] semaglutide 2021-11 Yes [id number] .5mg inject 0.5 [facility] (OZEMPIC) 0-07 mg under ity of 0.25 mg or 00:00: the skin [place] 0.5 mg(2 00 weekly. Medical mg/1.5 mL) Branch [facility] semaglutide 2021-11 Yes [id number] .5mg inject 0.5 [facility] (OZEMPIC) 0-07 mg under ity of 0.25 mg or 00:00: the skin [place] 0.5 mg(2 00 weekly. Medical mg/1.5 mL) Branch [facility] semaglutide 2021-11 Yes [id number] .5mg inject 0.5 [facility] (OZEMPIC) 0-07 mg under ity of 0.25 mg or 00:00: the skin [place] 0.5 mg(2 00 weekly. Medical mg/1.5 mL) Branch [facility] semaglutide 2021-11 Yes [id number] .[id number] inject 0.5 [facility] (OZEMPIC) 0-07 mg under ity of 0.25 mg or 00:00: the skin [place] 0.5 mg(2 00 weekly. Medical mg/1.5 mL) Branch [facility] semaglutide 2021-11 Yes [id number] .5mg inject 0.5 [facility] (OZEMPIC) 0-07 mg under ity of 0.25 mg or 00:00: the skin [place] 0.5 mg(2 00 weekly. Medical mg/1.5 mL) Branch [facility] semaglutide 2021-11 Yes [id number] .5mg inject 0.5 [facility] (OZEMPIC) 0-07 mg under ity of 0.25 mg or 00:00: the skin [place] 0.5 mg(2 00 weekly. Medical mg/1.5 mL) Branch [facility] semaglutide 2021-11 Yes [id number] .[id number] inject 0.5 [facility] (OZEMPIC) 0-07 mg under ity of 0.25 mg or 00:00: the skin [place] 0.5 mg(2 00 weekly. Medical mg/1.5 mL) Branch [facility] semaglutide 2021-11 Yes [id number] .[id number] inject 0.5 [facility] (OZEMPIC) 0-07 mg under ity of 0.25 mg or 00:00: the skin [place] 0.5 mg(2 00 weekly. Medical mg/1.5 mL) Branch [facility] semaglutide 2021-11 Yes [id number] .[id number] inject 0.5 [facility] (OZEMPIC) 0-07 mg under ity of 0.25 mg or 00:00: the skin [place] 0.5 mg(2 00 weekly. Medical mg/1.5 mL) Branch [facility] semaglutide 2021-11 Yes [id number] .[id number] inject 0.5 [facility] (OZEMPIC) 0-07 mg under ity of 0.25 mg or 00:00: the skin [place] 0.5 mg(2 00 weekly. Medical mg/1.5 mL) Branch [facility] semaglutide 2021-11 Yes [id number] .5mg inject 0.5 [facility] (OZEMPIC) 0-07 mg under ity of 0.25 mg or 00:00: the skin [place] 0.5 mg(2 00 weekly. Medical mg/1.5 mL) Branch [facility] semaglutide 2021-11 Yes [id number] .[id number] inject 0.5 [facility] (OZEMPIC) 0-07 mg under ity of 0.25 mg or 00:00: the skin [place] 0.5 mg(2 00 weekly. Medical mg/1.5 mL) Branch [facility] semaglutide 2021-11 Yes [id number] .[id number] inject 0.5 [facility] (OZEMPIC) 0-07 mg under ity of 0.25 mg or 00:00: the skin [place] 0.5 mg(2 00 weekly. Medical mg/1.5 mL) Branch [facility] semaglutide 2021-11 Yes [id number] .[id number] inject 0.5 [facility] (OZEMPIC) 0-07 mg under ity of 0.25 mg or 00:00: the skin [place] 0.5 mg(2 00 weekly. Medical mg/1.5 mL) Branch [facility] semaglutide 2021-11 Yes [id number] .[id number] inject 0.5 [facility] (OZEMPIC) 0-07 mg under ity of 0.25 mg or 00:00: the skin [place] 0.5 mg(2 00 weekly. Medical mg/1.5 mL) Branch [facility] semaglutide 2021-11 Yes [id number] .5mg inject 0.5 [facility] (OZEMPIC) 0-07 mg under ity of 0.25 mg or 00:00: the skin [place] 0.5 mg(2 00 weekly. Medical mg/1.5 mL) Branch [facility] semaglutide 2021-11 Yes [id number] .[id number] inject 0.5 [facility] (OZEMPIC) 0-07 mg under ity of 0.25 mg or 00:00: the skin [place] 0.5 mg(2 00 weekly. Medical mg/1.5 mL) Branch [facility] semaglutide 2021-11 Yes [id number] .5mg inject 0.5 [facility] (OZEMPIC) 0-07 mg under ity of 0.25 mg or 00:00: the skin [place] 0.5 mg(2 00 weekly. Medical mg/1.5 mL) Branch [facility] semaglutide 2021-11 Yes [id number] .[id number] inject 0.5 [facility] (OZEMPIC) 0-07 mg under ity of 0.25 mg or 00:00: the skin [place] 0.5 mg(2 00 weekly. Medical mg/1.5 mL) Branch [facility] semaglutide 2021-11 Yes [id number] .[id number] inject 0.5 [facility] (OZEMPIC) 0-07 mg under ity of 0.25 mg or 00:00: the skin [place] 0.5 mg(2 00 weekly. Medical mg/1.5 mL) Branch [facility] semaglutide 2021-11 Yes [id number] .[id number] inject 0.5 [facility] (OZEMPIC) 0-07 mg under ity of 0.25 mg or 00:00: the skin [place] 0.5 mg(2 00 weekly. Medical mg/1.5 mL) Branch [facility] semaglutide 2021-11 Yes [id number] .5mg inject 0.5 [facility] (OZEMPIC) 0-07 mg under ity of 0.25 mg or 00:00: the skin [place] 0.5 mg(2 00 weekly. Medical mg/1.5 mL) Branch [facility] semaglutide 2021-11 Yes [id number] .5mg inject 0.5 [facility] (OZEMPIC) 0-07 mg under ity of 0.25 mg or 00:00: the skin [place] 0.5 mg(2 00 weekly. Medical mg/1.5 mL) Branch [facility] semaglutide 2021-11 Yes [id number] .[id number] inject 0.5 [facility] (OZEMPIC) 0-07 mg under ity of 0.25 mg or 00:00: the skin [place] 0.5 mg(2 00 weekly. Medical mg/1.5 mL) Branch [facility] semaglutide 2021-11 Yes [id number] .[id number] inject 0.5 [facility] (OZEMPIC) 0-07 mg under ity of 0.25 mg or 00:00: the skin [place] 0.5 mg(2 00 weekly. Medical mg/1.5 mL) Branch [facility] semaglutide 2021-11 Yes [id number] .5mg inject 0.5 [facility] (OZEMPIC) 0-07 mg under ity of 0.25 mg or 00:00: the skin [place] 0.5 mg(2 00 weekly. Medical mg/1.5 mL) Branch [facility] semaglutide 2021-11 Yes [id number] .[id number] inject 0.5 [facility] (OZEMPIC) 0-07 mg under ity of 0.25 mg or 00:00: the skin [place] 0.5 mg(2 00 weekly. Medical mg/1.5 mL) Branch [facility] lindglutide 2021-11 Yes [id number] .[id number] inject 0.5 [facility] (OZEMPIC) 0-07 mg under ity of 0.25 mg or 00:00: the skin [place] 0.5 mg(2 00 weekly. Medical mg/1.5 mL) Branch [facility] leloglutide 2021-11 Yes [id number] .5mg inject 0.5 [facility] (OZEMPIC) 0-07 mg under ity of 0.25 mg or 00:00: the skin [place] 0.5 mg(2 00 weekly. Medical mg/1.5 mL) Branch [facility] lindglutide 2021-11 Yes [id number] .5mg inject 0.5 [facility] (OZEMPIC) 0-07 mg under ity of 0.25 mg or 00:00: the skin [place] 0.5 mg(2 00 weekly. Medical mg/1.5 mL) Branch [facility] semaglutide 2021-11- No [id number] .5mg inject 0.5 [facility] (OZEMPIC) 0-07 12-23 mg under ity o f 0.25 mg or 00:00: 00:00 the skin [place] 0.5 mg(2 00 :00 weekly. Medical mg/1.5 mL) Branch [facility] lindglutide 2021-11- No [id number] .[id number] inject 0.5 [facility] (OZEMPIC) 0-07 12-23 mg under ity o f 0.25 mg or 00:00: 00:00 the skin [place] 0.5 mg(2 00 :00 weekly. Medical mg/1.5 mL) Branch [facility] semaglutide 2021-11- No [id number] .5mg inject 0.5 [facility] (OZEMPIC) 0-07 12-23 mg under ity o f 0.25 mg or 00:00: 00:00 the skin [place] 0.5 mg(2 00 :00 weekly. Medical mg/1.5 mL) Branch PnM[facility] semaglutide 2021-11- No [id number] .5mg inject 0.5 [facility] (OZEMPIC) 0-07 12-23 mg under ity o f 0.25 mg or 00:00: 00:00 the skin [place] 0.5 mg(2 00 :00 weekly. Medical mg/1.5 mL) Branch [facility] semaglutide 2021-11- No [id number] .5mg inject 0.5 [facility] (OZEMPIC) 0-07 12-23 mg under ity o f 0.25 mg or 00:00: 00:00 the skin [place] 0.5 mg(2 00 :00 weekly. Medical mg/1.5 mL) Branch [facility] semaglutide 2021-11- No [id number] .5mg inject 0.5 [facility] (OZEMPIC) 0-07 12-23 mg under ity o f 0.25 mg or 00:00: 00:00 the skin [place] 0.5 mg(2 00 :00 weekly. Medical mg/1.5 mL) [facility] semaglutide 2021-11 No [id number] .[id number] inject 0.5 [facility] (OZEMPIC) 0-07 12-23 mg under ity o f 0.25 mg or 00:00: 00:00 the skin [place] 0.5 mg(2 00 :00 weekly. Medical mg/1.5 mL) [facility] flash 2021-11- No [id number] 1{each} inject 1 U nivers glucose 0-07 10-26 Each under ity o f sensor 00:00: 00:00 the skin [place] (FREESTYLE 00 :00 every 2 Medica l CHON 2 (two) Branch SENSOR) Kit weeks. flash 2021-11- No [id number] 1{each} inject 1 U nivers glucose 0-07 10-26 Each under ity o f sensor 00:00: 00:00 the skin [place] (FREESTYLE 00 :00 every 2 Medica l CHON 2 (two) Branch SENSOR) Kit weeks. aspirin 2021-11 Yes [id number] 81mg Take 1 [facility] mg chewable 0-06 tablet by ity of tablet 00:00: mouth in [place] 00 the Medical morning. Branch aspirin 81 2021-11 Yes [id number] 81mg Take 1 [facility] mg chewable 0-06 tablet by ity of tablet 00:00: mouth in [place] 00 the Medical morning. Branch aspirin 81 2021-11 Yes [id number] 81mg Take 1 [facility] mg chewable 0-06 tablet by ity of tablet 00:00: mouth in [place] 00 the Medical morning. Branch aspirin 81 2021-11 Yes [id number] 81mg Take 1 [facility] mg chewable 0-06 tablet by ity of tablet 00:00: mouth in [place] 00 the Medical morning. Branch aspirin 81 2021-11 Yes [id number] 81mg Take 1 [facility] mg chewable 0-06 tablet by ity of tablet 00:00: mouth in [place] 00 the Medical morning. Branch aspirin 81 2021-11 Yes [id number] 81mg Take 1 [facility] mg chewable 0-06 tablet by ity of tablet 00:00: mouth in [place] 00 the Medical morning. Branch aspirin 81 2021-11 Yes [id number] 81mg Take 1 [facility] mg chewable 0-06 tablet by ity of tablet 00:00: mouth in [place] the Medical morning. Branch aspirin 81 2021-11 Yes [id number] 81mg Take 1 [facility] mg chewable 0-06 tablet by ity of tablet 00:00: mouth in [place] the Medical morning. Branch aspirin 81 2021-11 Yes [id number] 81mg Take 1 [facility] mg chewable 0-06 tablet by ity of tablet 00:00: mouth in [place] the Medical morning. Branch aspirin 81 2021-11 Yes [id number] 81mg Take 1 [facility] mg chewable 0-06 tablet by ity of tablet 00:00: mouth in [place] the Medical morning. Branch aspirin 81 2021-11 Yes [id number] 81mg Take 1 [facility] mg chewable 0-06 tablet by ity of tablet 00:00: mouth in [place] 00 the Medical morning. Branch aspirin 81 2021-11 Yes [id number] 81mg Take 1 [facility] mg chewable 0-06 tablet by ity of tablet 00:00: mouth in [place] 00 the Medical morning. Branch aspirin 81 2021-11 Yes [id number] 81mg Take 1 [facility] mg chewable 0-06 tablet by ity of tablet 00:00: mouth in [place] 00 the Medical morning. Branch aspirin 81 2021-11 Yes [id number] 81mg Take 1 [facility] mg chewable 0-06 tablet by ity of tablet 00:00: mouth in [place] 00 the Medical morning. Branch aspirin 81 2021-11 Yes [id number] 81mg Take 1 [facility] mg chewable 0-06 tablet by ity of tablet 00:00: mouth in [place] 00 the Medical morning. Branch aspirin 81 2021-11 Yes [id number] 81mg Take 1 [facility] mg chewable 0-06 tablet by ity of tablet 00:00: mouth in [place] the Medical morning. Branch aspirin 81 2021-11 Yes [id number] 81mg Take 1 [facility] mg chewable 0-06 tablet by ity of tablet 00:00: mouth in [place] the Medical morning. Branch aspirin 81 2021-11 Yes [id number] 81mg Take 1 [facility] mg chewable 0-06 tablet by ity of tablet 00:00: mouth in [place] the Medical morning. Branch aspirin 81 2021-11 Yes [id number] 81mg Take 1 [facility] mg chewable 0-06 tablet by ity of tablet 00:00: mouth in [place] the Medical morning. Branch aspirin 81 2021-11 Yes [id number] 81mg Take 1 [facility] mg chewable 0-06 tablet by ity of tablet 00:00: mouth in [place] the Medical morning. Branch aspirin 81 2021-11 Yes [id number] 81mg Take 1 [facility] mg chewable 0-06 tablet by ity of tablet 00:00: mouth in [place] the Medical morning. Branch aspirin 81 2021-11 Yes [id number] 81mg Take 1 [facility] mg chewable 0-06 tablet by ity of tablet 00:00: mouth in [place] the Medical morning. Branch aspirin 81 2021-11 Yes [id number] 81mg Take 1 [facility] mg chewable 0-06 tablet by ity of tablet 00:00: mouth in [place] the Medical morning. Branch aspirin 81 2021-11 Yes [id number] 81mg Take 1 [facility] mg chewable 0-06 tablet by ity of tablet 00:00: mouth in [place] 00 the Medical morning. Branch aspirin 81 2021-11 Yes [id number] 81mg Take 1 [facility] mg chewable 0-06 tablet by ity of tablet 00:00: mouth in [place] 00 the Medical morning. Branch aspirin 81 2021-11 Yes [id number] 81mg Take 1 [facility] mg chewable 0-06 tablet by ity of tablet 00:00: mouth in [place] 00 the Medical morning. Branch aspirin 81 2021-11 Yes [id number] 81mg Take 1 [facility] mg chewable 0-06 tablet by ity of tablet 00:00: mouth in [place] 00 the Medical morning. Branch aspirin 81 2021-11 Yes [id number] 81mg Take 1 [facility] mg chewable 0-06 tablet by ity of tablet 00:00: mouth in [place] 00 the Medical morning. Branch aspirin 81 2021-11 Yes [id number] 81mg Take 1 [facility] mg chewable 0-06 tablet by ity of tablet 00:00: mouth in [place] 00 the Medical morning. Branch aspirin 81 2021-11 Yes [id number] 81mg Take 1 [facility] mg chewable 0-06 tablet by ity of tablet 00:00: mouth in [place] 00 the Medical morning. Branch aspirin 81 2021-11 Yes [id number] 81mg Take 1 [facility] mg chewable 0-06 tablet by ity of tablet 00:00: mouth in [place] 00 the Medical morning. Branch aspirin 81 2021-11 Yes [id number] 81mg Take 1 [facility] mg chewable 0-06 tablet by ity of tablet 00:00: mouth in [place] 00 the Medical morning. Branch aspirin 81 2021-11 Yes [id number] 81mg Take 1 [facility] mg chewable 0-06 tablet by ity of tablet 00:00: mouth in [place] 00 the Medical morning. Branch aspirin 81 2021-11 Yes [id number] 81mg Take 1 [facility] mg chewable 0-06 tablet by ity of tablet 00:00: mouth in [place] 00 the Medical morning. Branch aspirin 81 2021-11 Yes [id number] 81mg Take 1 [facility] mg chewable 0-06 tablet by ity of tablet 00:00: mouth in [place] 00 the Medical morning. Branch aspirin 81 2021-11 Yes [id number] 81mg Take 1 [facility] mg chewable 0-06 tablet by ity of tablet 00:00: mouth in [place] 00 the Medical morning. Branch aspirin 81 2021-11 Yes [id number] 81mg Take 1 [facility] mg chewable 0-06 tablet by ity of tablet 00:00: mouth in [place] 00 the Medical morning. Branch aspirin 81 2021-11 Yes [id number] 81mg Take 1 [facility] mg chewable 0-06 tablet by ity of tablet 00:00: mouth in [place] 00 the Medical morning. Branch clopidogreL 2022-1 2023- No 75mg Take 1 Uni vers 75 mg 0-06 02-16 tablet by ity of tablet 00:00: 05:59 mouth in [place] 00 :00 the Medical morning Branch for 132 days. clopidogreL 2021- 2023- No 75mg Take 1 Uni vers 75 mg 0-06 02-16 tablet by ity of tablet 00:00: 05:59 mouth in [place] 00 :00 the Medical morning Branch for 132 days. clopidogreL 2021-3- No 75mg Take 1 Uni vers 75 mg 0-06 02-16 tablet by ity of tablet 00:00: 05:59 mouth in [place] 00 :00 the Medical morning Branch for 132 days. clopidogreL 2021- 2023- No 75mg Take 1 [facility] vers 75 mg 0-06 02-16 tablet by ity of tablet 00:00: 05:59 mouth in [place] 00 :00 the Medical morning Branch for 132 days. clopidogreL 2021-3- No 75mg Take 1 [facility] vers 75 mg 0-06 02-16 tablet by ity of tablet 00:00: 05:59 mouth in [place] 00 :00 the Medical morning Branch for 132 days. clopidogreL 2021-2022- No 75mg Take 1 [facility] vers 75 mg 0-06 02-16 tablet by ity of tablet 00:00: 05:59 mouth in [place] 00 :00 the Medical morning Branch for 132 days. clopidogreL 2021-3- No 75mg Take 1 [facility] vers 75 mg 0-06 02-16 tablet by ity of tablet 00:00: 05:59 mouth in [place] 00 :00 the Medical morning Branch for 132 days. clopidogreL 2021-3- No 75mg Take 1 [facility] vers 75 mg 0-06 02-16 tablet by ity of tablet 00:00: 05:59 mouth in [place] 00 :00 the Medical morning Branch for 132 days. clopidogreL 2021- 2023- No 75mg Take 1 [facility] vers 75 mg 0-06 02-16 tablet by ity of tablet 00:00: 05:59 mouth in [place] 00 :00 the Medical morning Branch for 132 days. clopidogreL 2021- 2023- No 75mg Take 1 Uni vers 75 mg 0-06 02-16 tablet by ity of tablet 00:00: 05:59 mouth in [place] 00 :00 the Medical morning Branch for 132 days. clopidogreL 2021-1 2023- No 75mg Take 1 [facility] vers 75 mg 0-06 02-16 tablet by ity of tablet 00:00: 05:59 mouth in [place] 00 :00 the Medical morning Branch for 132 days. clopidogreL 2021- 2023- No 75mg Take 1 Uni vers 75 mg 0-06 02-16 tablet by ity of tablet 00:00: 05:59 mouth in [place] 00 :00 the Medical morning Branch for 132 days. clopidogreL 2021-3- No 75mg Take 1 Uni vers 75 mg 0-06 02-16 tablet by ity of tablet 00:00: 05:59 mouth in [place] 00 :00 the Medical morning Branch for 132 days. clopidogreL 2021- 2023- No 75mg Take 1 [facility] vers 75 mg 0-06 02-16 tablet by ity of tablet 00:00: 05:59 mouth in [place] 00 :00 the Medical morning Branch for 132 days. clopidogreL 2021-3- No 75mg Take 1 Uni vers 75 mg 0-06 02-16 tablet by ity of tablet 00:00: 05:59 mouth in [place] 00 :00 the Medical morning Branch for 132 days. clopidogreL 2021-2022- No 75mg Take 1 [facility] vers 75 mg 0-06 02-16 tablet by ity of tablet 00:00: 05:59 mouth in [place] 00 :00 the Medical morning Branch for 132 days. clopidogreL 2021-3- No 75mg Take 1 Uni vers 75 mg 0-06 02-16 tablet by ity of tablet 00:00: 05:59 mouth in [place] 00 :00 the Medical morning Branch for 132 days. clopidogreL 2021-3- No 75mg Take 1 [facility] vers 75 mg 0-06 02-16 tablet by ity of tablet 00:00: 05:59 mouth in [place] 00 :00 the Medical morning Branch for 132 days. clopidogreL 2021- 2023- No 75mg Take 1 [facility] vers 75 mg 0-06 02-16 tablet by ity of tablet 00:00: 05:59 mouth in [place] 00 :00 the Medical morning Branch for 132 days. clopidogreL 2021- 2023- No 75mg Take 1 [facility] vers 75 mg 0-06 02-16 tablet by ity of tablet 00:00: 05:59 mouth in [place] 00 :00 the Medical morning Branch for 132 days. clopidogreL 2021-1 2023- No 75mg Take 1 [facility] vers 75 mg 0-06 02-16 tablet by ity of tablet 00:00: 05:59 mouth in [place] 00 :00 the Medical morning Branch for 132 days. clopidogreL 2021- 2023- No 75mg Take 1 [facility] vers 75 mg 0-06 02-16 tablet by ity of tablet 00:00: 05:59 mouth in [place] 00 :00 the Medical morning Branch for 132 days. clopidogreL 2021-3- No 75mg Take 1 [facility] vers 75 mg 0-06 02-16 tablet by ity of tablet 00:00: 05:59 mouth in [place] 00 :00 the Medical morning Branch for 132 days. clopidogreL 2021- 2023- No 75mg Take 1 [facility] vers 75 mg 0-06 02-16 tablet by ity of tablet 00:00: 05:59 mouth in [place] 00 :00 the Medical morning Branch for 132 days. clopidogreL 2021-3- No 75mg Take 1 [facility] vers 75 mg 0-06 02-16 tablet by ity of tablet 00:00: 05:59 mouth in [place] 00 :00 the Medical morning Branch for 132 days. clopidogreL 2021-2022- No 75mg Take 1 [facility] vers 75 mg 0-06 02-16 tablet by ity of tablet 00:00: 05:59 mouth in [place] 00 :00 the Medical morning Branch for 132 days. clopidogreL 2021-3- No 75mg Take 1 [facility] vers 75 mg 0-06 02-16 tablet by ity of tablet 00:00: 05:59 mouth in [place] 00 :00 the Medical morning Branch for 132 days. clopidogreL 2021-3- No 75mg Take 1 [facility] vers 75 mg 0-06 02-16 tablet by ity of tablet 00:00: 05:59 mouth in [place] 00 :00 the Medical morning Branch for 132 days. clopidogreL 2021- 2023- No 75mg Take 1 [facility] vers 75 mg 0-06 02-16 tablet by ity of tablet 00:00: 05:59 mouth in [place] 00 :00 the Medical morning Branch for 132 days. clopidogreL 2021- 2023- No 75mg Take 1 [facility] vers 75 mg 0-06 02-16 tablet by ity of tablet 00:00: 05:59 mouth in [place] 00 :00 the Medical morning Branch for 132 days. clopidogreL 2021-1 2023- No 75mg Take 1 [facility] vers 75 mg 0-06 02-16 tablet by ity of tablet 00:00: 05:59 mouth in [place] 00 :00 the Medical morning Branch for 132 days. clopidogreL 2021- 2023- No 75mg Take 1 [facility] vers 75 mg 0-06 02-16 tablet by ity of tablet 00:00: 05:59 mouth in [place] 00 :00 the Medical morning Branch for 132 days. clopidogreL 2021-3- No 75mg Take 1 Uni vers 75 mg 0-06 02-16 tablet by ity of tablet 00:00: 05:59 mouth in [place] 00 :00 the Medical morning Branch for 132 days. clopidogreL 2021- 2023- No 75mg Take 1 [facility] vers 75 mg 0-06 02-16 tablet by ity of tablet 00:00: 05:59 mouth in [place] 00 :00 the Medical morning Branch for 132 days. clopidogreL 2021-3- No 75mg Take 1 Uni vers 75 mg 0-06 02-16 tablet by ity of tablet 00:00: 05:59 mouth in [place] 00 :00 the Medical morning Branch for 132 days. clopidogreL 2021-2022- No 75mg Take 1 Uni vers 75 mg 0-06 02-16 tablet by ity of tablet 00:00: 05:59 mouth in [place] 00 :00 the Medical morning Branch for 132 days. clopidogreL 2021-3- No 75mg Take 1 [facility] vers 75 mg 0-06 02-16 tablet by ity of tablet 00:00: 05:59 mouth in [place] 00 :00 the Medical morning Branch for 132 days. clopidogreL 2021-3- No 75mg Take 1 [facility] vers 75 mg 0-06 02-16 tablet by ity of tablet 00:00: 05:59 mouth in [place] 00 :00 the Medical morning Branch for 132 days. clopidogreL 2021- 2023- No 75mg Take 1 [facility] vers 75 mg 0-06 02-16 tablet by ity of tablet 00:00: 05:59 mouth in [place] 00 :00 the Medical morning Branch for 132 days. clopidogreL 2021- 2023- No 75mg Take 1 Uni vers 75 mg 0-06 02-16 tablet by ity of tablet 00:00: 05:59 mouth in [place] 00 :00 the Medical morning Branch for 132 days. clopidogreL 2021-1 2023- No 75mg Take 1 Uni vers 75 mg 0-06 02-16 tablet by ity of tablet 00:00: 05:59 mouth in [place] 00 :00 the Medical morning Branch for 132 days. clopidogreL 2021-11- No 75mg Take 1 [facility] vers 75 mg 0-06 02-16 tablet by ity of tablet 00:00: 05:59 mouth in [place] 00 :00 the Medical morning Branch for 132 days. clopidogreL 2021-11- No 75mg Take 1 Uni vers 75 mg 0-06 02-16 tablet by ity of tablet 00:00: 05:59 mouth in [place] 00 :00 the Medical morning Branch for 132 days. clopidogreL 2021-11- No 75mg Take 1 [facility] vers 75 mg 0-06 02-16 tablet by ity of tablet 00:00: 05:59 mouth in [place] 00 :00 the Medical morning Branch for 132 days. clopidogreL 2021-11- No 75mg Take 1 [facility] vers 75 mg 0-06 02-16 tablet by ity of tablet 00:00: 05:59 mouth in [place] 00 :00 the Medical morning Branch for 132 days. clopidogreL 2021-11- No 75mg Take 1 [facility] vers 75 mg 0-06 02-16 tablet by ity of tablet 00:00: 05:59 mouth in [place] 00 :00 the Medical morning Branch for 132 days. clopidogreL 2021-11- No 75mg Take 1 [facility] vers 75 mg 0-06 02-16 tablet by ity of tablet 00:00: 05:59 mouth in [place] 00 :00 the Medical morning Branch for 132 days. clopidogreL 2021-11- No 75mg Take 1 Uni vers 75 mg 0-06 11-07 tablet by ity of tablet 00:00: 00:00 mouth in [place] 00 :00 the Medical morning Branch for 132 days. clopidogreL 2021-11- No 75mg Take 1 [facility] vers 75 mg 0-06 11-07 tablet by ity of tablet 00:00: 00:00 mouth in [place] 00 :00 the Medical morning Branch for 132 days. clopidogreL 2021-11- No 75mg Take 1 [facility] vers 75 mg 0-06 11-07 tablet by ity of tablet 00:00: 00:00 mouth in [place] 00 :00 the Medical morning Branch for 132 days. aspirin 81 2021-11- No [id number] 81mg Take 1 [facility] mg chewable 0-06 10-31 tablet by it y of tablet 00:00: 00:00 mouth in [place] 00 :00 the Medical morning. Branch aspirin 81 2021-11- No [id number] 81mg Take 1 [facility] mg chewable 0-06 10-31 tablet by it y of tablet 00:00: 00:00 mouth in [place] 00 :00 the Medical morning. Branch aspirin 81 2021-11- No [id number] 81mg Take 1 [facility] mg chewable 0-06 10-31 tablet by it y of tablet 00:00: 00:00 mouth in [place] 00 :00 the Medical morning. [facility] 2021-11 Yes [id number] USE 1 Univ ers CHON 2 0-05 SENSOR ity of SENSOR Kit 00:00: CHANGE [place] 00 EVERY 2 Medical WEEKS [facility] 2021-11 Yes [id number] USE 1 Univ ers CHON 2 0-05 SENSOR ity of SENSOR Kit 00:00: CHANGE [place] 00 EVERY 2 Medical WEEKS [facility] 2021-11 Yes [id number] USE 1 Univ ers CHON 2 0-05 SENSOR ity of SENSOR Kit 00:00: CHANGE [place] 00 EVERY 2 Medical WEEKS Branch [facility] 2021-11- No [id number] USE 1 Uni vers CHON 2 0-05 10-07 SENSOR ity of SENSOR Kit 00:00: 00:[place] 00 :[place] EVERY 2 Medical WEEKS Branch [facility] 2021-11- No [id number] USE 1 Uni vers CHON 2 0-05 10-07 SENSOR ity of SENSOR Kit 00:00: 00:[place] 00 :00 EVERY 2 Medical WEEKS Branch [facility] 2021-11- No [id number] USE 1 Uni vers CHON 2 0-05 10-07 SENSOR ity of SENSOR Kit 00:00: 00:[place] 00 :[place] EVERY 2 Medical WEEKS [facility] 2021-11- No 6U 6 Units, Unive rs regular 0-03 10-03 Slow IV ity of human 02:30: 01:51 [facility] [place] (HUMULIN R) 00 :00 ONCE, 1 Medic al injection 6 dose, On Bran ch Units 08/24/22 at 2130, Routine
Indicatio n for insulin: Hyperglyce [place] NaCl 0.9% 2021-11- No 1000mL at 999 Uni vers (NS) bolus 0-03 10-03 mL/hr, ity of infusion 01:15: 01:31 1,000 mL, [place] as 1,000 mL 00 :00 IV [facility] Infusion, Branch ONCE, 1 dose, On 08/24/22 at 2015, STAT budesonide 2021-0 Yes [facility] 0.5 mg/2 mL 9-28 ity of nebulizer 00:00: [place] [facility] budesonide 2021-0 Yes [facility] 0.5 mg/2 mL 9- ity of nebulizer 00:00: [place] [facility] budesonide 2021-0 Yes [facility] 0.5 mg/2 mL 9-28 ity of nebulizer 00:00: [place] [facility] budesonide 2021-0 Yes [facility] 0.5 mg/2 mL 9-28 ity of nebulizer 00:00: [place] [facility] budesonide 2021-0 Yes [facility] 0.5 mg/2 mL 9- ity of nebulizer 00:00: [place] [facility] budesonide 2021-0 Yes [facility] 0.5 mg/2 mL 9-28 ity of nebulizer 00:00: [place] [facility] budesonide 2021-0 Yes [facility] 0.5 mg/2 mL - ity of nebulizer 00:00: [place] [facility] budesonide 2021-0 Yes [facility] 0.5 mg/2 mL 9-28 ity of nebulizer 00:00: [place] [facility] budesonide 2021-0 Yes [facility] 0.5 mg/2 mL -28 ity of nebulizer 00:00: [place] [facility] budesonide 2021-0 Yes [facility] 0.5 mg/2 mL 9-28 ity of nebulizer 00:00: [place] [facility] budesonide 2021-0 Yes [facility] 0.5 mg/2 mL 9-28 ity of nebulizer 00:00: [place] [facility] budesonide 2021-0 2- No Univer s 0.5 mg/2 mL 9- 10-15 ity of nebulizer 00:00: 00:00 [place] solution 00 :00 [facility] budesonide 2022-0 2022- No Univer s 0.5 mg/2 mL 9-28 10-15 ity of nebulizer 00:00: 00:00 [place] solution 00 :00 [facility] budesonide 2022-0 2022- No Univer s 0.5 mg/2 mL 9-28 10-15 ity of nebulizer 00:00: 00:00 [place] solution 00 :00 [facility] budesonide 2022-0 2022- No Univer s 0.5 mg/2 mL 9-28 10-15 ity of nebulizer 00:00: 00:00 [place] solution 00 :00 [facility] budesonide 2022-0 2022- No Univer s 0.5 mg/2 mL 9-28 10-15 ity of nebulizer 00:00: 00:00 [place] solution 00 :00 [facility] budesonide 2022-0 2022- No Univer s 0.5 mg/2 mL 9-28 10-15 ity of nebulizer 00:00: 00:00 [place] solution 00 :00 [facility] budesonide 2022-0 2022- No Univer s 0.5 mg/2 mL 9-28 10-15 ity of nebulizer 00:00: 00:00 [place] solution 00 :00 [facility] budesonide 2022-0 2022- No Univer s 0.5 mg/2 mL 9-28 10-15 ity of nebulizer 00:00: 00:00 [place] solution 00 :00 [facility] budesonide 2022-0 2022- No Univer s 0.5 mg/2 mL 9-28 10-15 ity of nebulizer 00:00: 00:00 [place] solution 00 :00 Medical Branch flash 2021-0 Yes [id number] 1U 1 Units [facility] glucose 9-26 SEE-INSTRU ity of scanning 00:00: CTIONS. [place] reader 00 Use per Medical (FREESTYLE device Branch CHON 2 instructio READER) ns [facility] flash 0 Yes [id number] 1U 1 Units Univer s glucose 9-26 SEE-INSTRU ity of scanning 00:00: CTIONS. [place] reader 00 Use per Medical (FREESTYLE device Branch CHON 2 instructio READER) ns Misc flash 2021-0 Yes [id number] 1U 1 Units Univer s glucose 9-26 SEE-INSTRU ity of scanning 00:00: CTIONS. [place] reader 00 Use per Medical (FREESTYLE device Branch CHON 2 instructio READER) ns Misc flash 2021-0 Yes [id number] 1U 1 Units Un[facility] glucose 9-26 SEE-INSTRU ity of scanning 00:00: CTIONS. [place] reader 00 Use per Medical (FREESTYLE device Branch CHON 2 instructio READER) ns Misc flash 2021-0 Yes [id number] 1U 1 Units Un[facility] glucose 9-26 SEE-INSTRU ity of scanning 00:00: CTIONS. [place] reader 00 Use per Medical (FREESTYLE device Branch CHON 2 instructio READER) ns Misc flash 2021-0 Yes [id number] 1U 1 Units Un[facility] s glucose 9-26 SEE-INSTRU ity of scanning 00:00: CTIONS. [place] reader 00 Use per Medical (FREESTYLE device Branch CHON 2 instructio READER) ns Misc flash 2021-0 Yes [id number] 1U 1 Units Un[facility] glucose 9-26 SEE-INSTRU ity of scanning 00:00: CTIONS. [place] reader 00 Use per Medical (FREESTYLE device Branch CHON 2 instructio READER) ns Misc flash 2021-0 Yes [id number] 1U 1 Units Univer [facility] glucose 9-26 SEE-INSTRU ity of scanning 00:00: CTIONS. [place] reader 00 Use per Medical (FREESTYLE device Branch CHON 2 instructio READER) ns Misc flash 2021-0 Yes [id number] 1U 1 Units Univer s glucose 9-26 SEE-INSTRU ity of scanning 00:00: CTIONS. [place] reader 00 Use per Medical (FREESTYLE device Branch CHON 2 instructio READER) ns Misc flash 2021-0 Yes [id number] 1U 1 Units Univer s glucose 9-26 SEE-INSTRU ity of scanning 00:00: CTIONS. [place] reader 00 Use per Medical (FREESTYLE device Branch CHON 2 instructio READER) ns Misc flash 2021-0 Yes [id number] 1U 1 Units Univer s glucose 9-26 SEE-INSTRU ity of scanning 00:00: CTIONS. [place] reader 00 Use per Medical (FREESTYLE device Branch CHON 2 instructio READER) ns Misc flash 2021-0 Yes [id number] 1U 1 Units Univer s glucose 9-26 SEE-INSTRU ity of scanning 00:00: CTIONS. [place] reader 00 Use per Medical (FREESTYLE device Branch CHON 2 instructio READER) ns Misc flash 2021-0 Yes [id number] 1U 1 Units Univer s glucose 9-26 SEE-INSTRU ity of scanning 00:00: CTIONS. [place] reader 00 Use per Medical (FREESTYLE device Branch CHON 2 instructio READER) ns Misc flash 2021-0 Yes [id number] 1U 1 Units Univer s glucose 9-26 SEE-INSTRU ity of scanning 00:00: CTIONS. [place] reader 00 Use per Medical (FREESTYLE device Branch CHON 2 instructio READER) ns Misc flash 2021-0 Yes [id number] 1U 1 Units Univer s glucose 9-26 SEE-INSTRU ity of scanning 00:00: CTIONS. [place] reader 00 Use per Medical (FREESTYLE device Branch CHON 2 instructio READER) ns Misc flash 2021-0 Yes [id number] 1U 1 Units Univer s glucose 9-26 SEE-INSTRU ity of scanning 00:00: CTIONS. [place] reader 00 Use per Medical (FREESTYLE device Branch CHON 2 instructio READER) ns Misc flash 2021-0 Yes [id number] 1U 1 Units Univer s glucose 9-26 SEE-INSTRU ity of scanning 00:00: CTIONS. [place] reader 00 Use per Medical (FREESTYLE device Branch CHON 2 instructio READER) ns Misc flash 2021-0 Yes [id number] 1U 1 Units Univer s glucose 9-26 SEE-INSTRU ity of scanning 00:00: CTIONS. [place] reader 00 Use per Medical (FREESTYLE device Branch CHON 2 instructio READER) ns Misc flash 2021-0 Yes [id number] 1U 1 Units Univer s glucose 9-26 SEE-INSTRU ity of scanning 00:00: CTIONS. [place] reader 00 Use per Medical (FREESTYLE device Branch CHON 2 instructio READER) ns Misc flash 2021-0 Yes [id number] 1U 1 Units Univer s glucose 9-26 SEE-INSTRU ity of scanning 00:00: CTIONS. [place] reader 00 Use per Medical (FREESTYLE device Branch CHON 2 instructio READER) ns Misc flash 2021-0 Yes [id number] 1U 1 Units Univer s glucose 9-26 SEE-INSTRU ity of scanning 00:00: CTIONS. [place] reader 00 Use per Medical (FREESTYLE device Branch CHON 2 instructio READER) ns Misc flash 2021-0 Yes [id number] 1U 1 Units Univer s glucose 9-26 SEE-INSTRU ity of scanning 00:00: CTIONS. [place] reader 00 Use per Medical (FREESTYLE device Branch CHON 2 instructio READER) ns Misc flash 2021-0 Yes [id number] 1U 1 Units Univer s glucose 9-26 SEE-INSTRU ity of scanning 00:00: CTIONS. [place] reader 00 Use per Medical (FREESTYLE device Branch CHON 2 instructio READER) ns Misc flash 2021-0 Yes [id number] 1U 1 Units Univer s glucose 9-26 SEE-INSTRU ity of scanning 00:00: CTIONS. [place] reader 00 Use per Medical (FREESTYLE device Branch CHON 2 instructio READER) ns Misc flash 2021-0 Yes [id number] 1U 1 Units Univer s glucose 9-26 SEE-INSTRU ity of scanning 00:00: CTIONS. [place] reader 00 Use per Medical (FREESTYLE device Branch CHON 2 instructio READER) ns Misc flash 2021-0 Yes [id number] 1U 1 Units Univer s glucose 9-26 SEE-INSTRU ity of scanning 00:00: CTIONS. [place] reader 00 Use per Medical (FREESTYLE device Branch CHON 2 instructio READER) ns Misc flash 2021-0 Yes [id number] 1U 1 Units Un[facility] glucose 9-26 SEE-INSTRU ity of scanning 00:00: CTIONS. [place] reader 00 Use per Medical (FREESTYLE device Branch CHON 2 instructio READER) ns Misc flash 2021-0 Yes [id number] 1U 1 Units Univer s glucose 9-26 SEE-INSTRU ity of scanning 00:00: CTIONS. [place] reader 00 Use per Medical (FREESTYLE device Branch CHON 2 instructio READER) ns Misc flash 2021-0 Yes [id number] 1U 1 Units Univer s glucose 9-26 SEE-INSTRU ity of scanning 00:00: CTIONS. [place] reader 00 Use per Medical (FREESTYLE device Branch CHON 2 instructio READER) ns Misc flash 2021-0 Yes [id number] 1U 1 Units Univer s glucose 9-26 SEE-INSTRU ity of scanning 00:00: CTIONS. [place] reader 00 Use per Medical (FREESTYLE device Branch CHON 2 instructio READER) ns Misc flash 2021-0 Yes [id number] 1U 1 Units Univer s glucose 9-26 SEE-INSTRU ity of scanning 00:00: CTIONS. [place] reader 00 Use per Medical (FREESTYLE device Branch CHON 2 instructio READER) ns Misc flash 2021-0 Yes [id number] 1U 1 Units Univer s glucose 9-26 SEE-INSTRU ity of scanning 00:00: CTIONS. [place] reader 00 Use per Medical (FREESTYLE device Branch CHON 2 instructio READER) ns Misc flash 2021-0 Yes [id number] 1U 1 Units Univer s glucose 9-26 SEE-INSTRU ity of scanning 00:00: CTIONS. [place] reader 00 Use per Medical (FREESTYLE device Branch CHON 2 instructio READER) ns Misc flash 2021-0 Yes [id number] 1U 1 Units Univer s glucose 9-26 SEE-INSTRU ity of scanning 00:00: CTIONS. [place] reader 00 Use per Medical (FREESTYLE device Branch CHON 2 instructio READER) ns Misc flash 2021-0 Yes [id number] 1U 1 Units Univer s glucose 9-26 SEE-INSTRU ity of scanning 00:00: CTIONS. [place] reader 00 Use per Medical (FREESTYLE device Branch CHON 2 instructio READER) ns Misc flash 2021-0 Yes [id number] 1U 1 Units Univer s glucose 9-26 SEE-INSTRU ity of scanning 00:00: CTIONS. [place] reader 00 Use per Medical (FREESTYLE device Branch CHON 2 instructio READER) ns Misc flash 2021-0 Yes [id number] 1U 1 Units Univer s glucose 9-26 SEE-INSTRU ity of scanning 00:00: CTIONS. [place] reader 00 Use per Medical (FREESTYLE device Branch CHON 2 instructio READER) ns Misc flash 2021-0 Yes [id number] 1U 1 Units Univer s glucose 9-26 SEE-INSTRU ity of scanning 00:00: CTIONS. [place] reader 00 Use per Medical (FREESTYLE device Branch CHON 2 instructio READER) ns Misc flash 2021-0 Yes [id number] 1U 1 Units Univer s glucose 9-26 SEE-INSTRU ity of scanning 00:00: CTIONS. [place] reader 00 Use per Medical (FREESTYLE device Branch CHON 2 instructio READER) ns Misc flash 2021-0 Yes [id number] 1U 1 Units Univer s glucose 9-26 SEE-INSTRU ity of scanning 00:00: CTIONS. [place] reader 00 Use per Medical (FREESTYLE device Branch CHON 2 instructio READER) ns Misc flash 2021-0 Yes [id number] 1U 1 Units Univer s glucose 9-26 SEE-INSTRU ity of scanning 00:00: CTIONS. [place] reader 00 Use per Medical (FREESTYLE device Branch CHON 2 instructio READER) ns Misc flash 2021-0 Yes [id number] 1U 1 Units Univer s glucose 9-26 SEE-INSTRU ity of scanning 00:00: CTIONS. [place] reader 00 Use per Medical (FREESTYLE device Branch CHON 2 instructio READER) ns Misc flash 2021-0 Yes [id number] 1U 1 Units Univer s glucose 9-26 SEE-INSTRU ity of scanning 00:00: CTIONS. [place] reader 00 Use per Medical (FREESTYLE device Branch CHON 2 instructio READER) ns Misc flash 2021-0 Yes [id number] 1U 1 Units Univer s glucose 9-26 SEE-INSTRU ity of scanning 00:00: CTIONS. [place] reader 00 Use per Medical (FREESTYLE device Branch CHON 2 instructio READER) ns Misc flash 2021-0 Yes [id number] 1U 1 Units Univer s glucose 9-26 SEE-INSTRU ity of scanning 00:00: CTIONS. [place] reader 00 Use per Medical (FREESTYLE device Branch CHON 2 instructio READER) ns Misc flash 2021-0 Yes [id number] 1U 1 Units Univer s glucose 9-26 SEE-INSTRU ity of scanning 00:00: CTIONS. [place] reader 00 Use per Medical (FREESTYLE device Branch CHON 2 instructio READER) ns Misc flash 2021-0 Yes [id number] 1U 1 Units Univer s glucose 9-26 SEE-INSTRU ity of scanning 00:00: CTIONS. [place] reader 00 Use per Medical (FREESTYLE device Branch CHON 2 instructio READER) ns Misc flash 2021-0 Yes [id number] 1U 1 Units Univer s glucose 9-26 SEE-INSTRU ity of scanning 00:00: CTIONS. [place] reader 00 Use per Medical (FREESTYLE device Branch CHON 2 instructio READER) ns Misc flash 2021-0 Yes [id number] 1U 1 Units Univer s glucose 9-26 SEE-INSTRU ity of scanning 00:00: CTIONS. [place] reader 00 Use per Medical (FREESTYLE device Branch CHON 2 instructio READER) ns Misc flash 2021-0 Yes [id number] 1U 1 Units Univer s glucose 9-26 SEE-INSTRU ity of scanning 00:00: CTIONS. [place] reader 00 Use per Medical (FREESTYLE device Branch CHON 2 instructio READER) ns Misc flash 2021-0 Yes [id number] 1U 1 Units Univer s glucose 9-26 SEE-INSTRU ity of scanning 00:00: CTIONS. [place] reader 00 Use per Medical (FREESTYLE device Branch CHON 2 instructio READER) ns Misc flash 2021-0 Yes [id number] 1U 1 Units Univer s glucose 9-26 SEE-INSTRU ity of scanning 00:00: CTIONS. [place] reader 00 Use per Medical (FREESTYLE device Branch CHON 2 instructio READER) ns Misc flash 2021-0 Yes [id number] 1U 1 Units Univer s glucose 9-26 SEE-INSTRU ity of scanning 00:00: CTIONS. [place] reader 00 Use per Medical (FREESTYLE device Branch CHON 2 instructio READER) ns Misc flash 2021-0 Yes [id number] 1U 1 Units Univer s glucose 9-26 SEE-INSTRU ity of scanning 00:00: CTIONS. [place] reader 00 Use per Medical (FREESTYLE device Branch CHON 2 instructio READER) ns Misc flash 2021-0 Yes [id number] 1U 1 Units Univer s glucose 9-26 SEE-INSTRU ity of scanning 00:00: CTIONS. [place] reader 00 Use per Medical (FREESTYLE device Branch CHON 2 instructio READER) ns Misc flash 2021-0 Yes [id number] 1U 1 Units Univer s glucose 9-26 SEE-INSTRU ity of scanning 00:00: CTIONS. [place] reader 00 Use per Medical (FREESTYLE device Branch CHON 2 instructio READER) ns Misc flash 2021-0 Yes [id number] 1U 1 Units Univer s glucose 9-26 SEE-INSTRU ity of scanning 00:00: CTIONS. [place] reader 00 Use per Medical (FREESTYLE device Branch CHON 2 instructio READER) ns Misc flash 2021-0 Yes [id number] 1U 1 Units Univer s glucose 9-26 SEE-INSTRU ity of scanning 00:00: CTIONS. [place] reader 00 Use per Medical (FREESTYLE device Branch CHON 2 instructio READER) ns Misc flash 2021-0 Yes [id number] 1U 1 Units Univer s glucose 9-26 SEE-INSTRU ity of scanning 00:00: CTIONS. [place] reader 00 Use per Medical (FREESTYLE device Branch CHON 2 instructio READER) ns Misc flash 2021-0 Yes [id number] 1U 1 Units Univer s glucose 9-26 SEE-INSTRU ity of scanning 00:00: CTIONS. [place] reader 00 Use per Medical (FREESTYLE device Branch CHON 2 instructio READER) ns Misc flash 2021-0 Yes [id number] 1U 1 Units Univer s glucose 9-26 SEE-INSTRU ity of scanning 00:00: CTIONS. [place] reader 00 Use per Medical (FREESTYLE device Branch CHON 2 instructio READER) ns Misc flash 2021-0 Yes [id number] 1U 1 Units Univer s glucose 9-26 SEE-INSTRU ity of scanning 00:00: CTIONS. [place] reader 00 Use per Medical (FREESTYLE device Branch CHON 2 instructio READER) ns Misc flash 2021-0 Yes [id number] 1U 1 Units Univer s glucose 9-26 SEE-INSTRU ity of scanning 00:00: CTIONS. [place] reader 00 Use per Medical (FREESTYLE device Branch CHON 2 instructio READER) ns Misc flash 2021-0 Yes [id number] 1U 1 Units Univer s glucose 9-26 SEE-INSTRU ity of scanning 00:00: CTIONS. [place] reader 00 Use per Medical (FREESTYLE device Branch CHON 2 instructio READER) ns Misc flash 2021-0 Yes [id number] 1U 1 Units Univer s glucose 9-26 SEE-INSTRU ity of scanning 00:00: CTIONS. [place] reader 00 Use per Medical (FREESTYLE device Branch CHON 2 instructio READER) ns Misc flash 2021-0 Yes [id number] 1U 1 Units Univer s glucose 9-26 SEE-INSTRU ity of scanning 00:00: CTIONS. [place] reader 00 Use per Medical (FREESTYLE device Branch CHON 2 instructio READER) ns Misc flash 2021-0 Yes [id number] 1U 1 Units Univer s glucose 9-26 SEE-INSTRU ity of scanning 00:00: CTIONS. [place] reader 00 Use per Medical (FREESTYLE device Branch CHON 2 instructio READER) ns Misc flash 2021-0 Yes [id number] 1U 1 Units Univer s glucose 9-26 SEE-INSTRU ity of scanning 00:00: CTIONS. [place] reader 00 Use per Medical (FREESTYLE device Branch CHON 2 instructio READER) ns Misc flash 2021-0 Yes [id number] 1U 1 Units Univer s glucose 9-26 SEE-INSTRU ity of scanning 00:00: CTIONS. [place] reader 00 Use per Medical (FREESTYLE device Branch CHON 2 instructio READER) ns Misc flash 2021-0 Yes [id number] 1U 1 Units Univer s glucose 9-26 SEE-INSTRU ity of scanning 00:00: CTIONS. [place] reader 00 Use per Medical (FREESTYLE device Branch CHON 2 instructio READER) ns Misc flash 2021-0 Yes [id number] 1U 1 Units Univer s glucose 9-26 SEE-INSTRU ity of scanning 00:00: CTIONS. [place] reader 00 Use per Medical (FREESTYLE device Branch CHON 2 instructio READER) ns Misc flash 2021-0 Yes [id number] 1U 1 Units Univer s glucose 9-26 SEE-INSTRU ity of scanning 00:00: CTIONS. [place] reader 00 Use per Medical (FREESTYLE device Branch CHON 2 instructio READER) ns Misc flash 2021-0 Yes [id number] 1U 1 Units Univer s glucose 9-26 SEE-INSTRU ity of scanning 00:00: CTIONS. [place] reader 00 Use per Medical (FREESTYLE device Branch CHON 2 instructio READER) ns Misc flash 2021-0 Yes [id number] 1U 1 Units Univer s glucose 9-26 SEE-INSTRU ity of scanning 00:00: CTIONS. [place] reader 00 Use per Medical (FREESTYLE device Branch CHON 2 instructio READER) ns Misc flash 2-0 Yes [id number] 1U 1 Units Univer s glucose 9-26 SEE-INSTRU ity of scanning 00:00: CTIONS. [place] reader 00 Use per Medical (FREESTYLE device Branch CHON 2 instructio READER) ns Misc flash 2021-0 Yes [id number] 1U 1 Units Univer s glucose 9-26 SEE-INSTRU ity of scanning 00:00: CTIONS. [place] reader 00 Use per Medical (FREESTYLE device Branch CHON 2 instructio READER) ns Misc flash 2021-0 Yes [id number] 1U 1 Units Univer s glucose 9-26 SEE-INSTRU ity of scanning 00:00: CTIONS. [place] reader 00 Use per Medical (FREESTYLE device Branch CHON 2 instructio READER) ns Misc flash 2021-0 Yes [id number] 1U 1 Units Univer s glucose 9-26 SEE-INSTRU ity of scanning 00:00: CTIONS. [place] reader 00 Use per Medical (FREESTYLE device Branch CHON 2 instructio READER) ns Misc flash 2021-0 Yes [id number] 1U 1 Units Univer s glucose 9-26 SEE-INSTRU ity of scanning 00:00: CTIONS. [place] reader 00 Use per Medical (FREESTYLE device Branch CHON 2 instructio READER) ns Misc flash 2021-0 Yes [id number] 1U 1 Units Univer s glucose 9-26 SEE-INSTRU ity of scanning 00:00: CTIONS. [place] reader 00 Use per Medical (FREESTYLE device Branch CHON 2 instructio READER) ns Misc flash 2-0 Yes [id number] 1U 1 Units Univer s glucose 9-26 SEE-INSTRU ity of scanning 00:00: CTIONS. [place] reader 00 Use per Medical (FREESTYLE device Branch CHON 2 instructio READER) ns Misc flash 2-0 Yes [id number] 1U 1 Units Univer s glucose 9-26 SEE-INSTRU ity of scanning 00:00: CTIONS. [place] reader 00 Use per Medical (FREESTYLE device Branch CHON 2 instructio READER) ns Misc flash 2021-0 Yes [id number] 1U 1 Units Univer s glucose 9-26 SEE-INSTRU ity of scanning 00:00: CTIONS. [place] reader 00 Use per Medical (FREESTYLE device Branch CHNO 2 instructio READER) ns Misc flash 2021-0 Yes [id number] 1U 1 Units Univer s glucose 9-26 SEE-INSTRU ity of scanning 00:00: CTIONS. [place] reader 00 Use per Medical (FREESTYLE device Branch CHON 2 instructio READER) ns Misc flash 2021-0 Yes [id number] 1U 1 Units Univer s glucose 9-26 SEE-INSTRU ity of scanning 00:00: CTIONS. [place] reader 00 Use per Medical (FREESTYLE device Branch CHON 2 instructio READER) ns Misc flash 2021-0 Yes [id number] 1U 1 Units Univer s glucose 9-26 SEE-INSTRU ity of scanning 00:00: CTIONS. [place] reader 00 Use per Medical (FREESTYLE device Branch CHON 2 instructio READER) ns Misc flash 2021-0 Yes [id number] 1U 1 Units Univer s glucose 9-26 SEE-INSTRU ity of scanning 00:00: CTIONS. [place] reader 00 Use per Medical (FREESTYLE device Branch CHON 2 instructio READER) ns Misc flash 2021-0 Yes [id number] 1U 1 Units Univer s glucose 9-26 SEE-INSTRU ity of scanning 00:00: CTIONS. [place] reader 00 Use per Medical (FREESTYLE device Branch CHON 2 instructio READER) ns Misc flash 2021-0 Yes [id number] 1U 1 Units Univer s glucose 9-26 SEE-INSTRU ity of scanning 00:00: CTIONS. [place] reader 00 Use per Medical (FREESTYLE device Branch CHON 2 instructio READER) ns Misc flash 2021-0 Yes [id number] 1U 1 Units Univer s glucose 9-26 SEE-INSTRU ity of scanning 00:00: CTIONS. [place] reader 00 Use per Medical (FREESTYLE device Branch CHON 2 instructio READER) ns Misc flash 2021-0 Yes [id number] 1U 1 Units Univer s glucose 9-26 SEE-INSTRU ity of scanning 00:00: CTIONS. [place] reader 00 Use per Medical (FREESTYLE device Branch CHON 2 instructio READER) ns Misc flash 2021-0 Yes [id number] 1U 1 Units Univer s glucose 9-26 SEE-INSTRU ity of scanning 00:00: CTIONS. [place] reader 00 Use per Medical (FREESTYLE device Branch CHON 2 instructio READER) ns Misc flash 2021-0 Yes [id number] 1U 1 Units Univer s glucose 9-26 SEE-INSTRU ity of scanning 00:00: CTIONS. [place] reader 00 Use per Medical (FREESTYLE device Branch CHON 2 instructio READER) ns Misc flash 2021-0 Yes [id number] 1U 1 Units Univer s glucose 9-26 SEE-INSTRU ity of scanning 00:00: CTIONS. [place] reader 00 Use per Medical (FREESTYLE device Branch CHON 2 instructio READER) ns Misc flash 2021-0 Yes [id number] 1U 1 Units Univer s glucose 9-26 SEE-INSTRU ity of scanning 00:00: CTIONS. [place] reader 00 Use per Medical (FREESTYLE device Branch CHON 2 instructio READER) ns Misc flash 2021-0 Yes [id number] 1U 1 Units Univer s glucose 9-26 SEE-INSTRU ity of scanning 00:00: CTIONS. [place] reader 00 Use per Medical (FREESTYLE device Branch CHON 2 instructio READER) ns Misc flash 2021-0 Yes [id number] 1U 1 Units Univer s glucose 9-26 SEE-INSTRU ity of scanning 00:00: CTIONS. [place] reader 00 Use per Medical (FREESTYLE device Branch CHON 2 instructio READER) ns Misc flash 2021-0 Yes [id number] 1U 1 Units Univer s glucose 9-26 SEE-INSTRU ity of scanning 00:00: CTIONS. [place] reader 00 Use per Medical (FREESTYLE device Branch CHON 2 instructio READER) ns Misc flash 2021-0 Yes [id number] 1U 1 Units Univer s glucose 9-26 SEE-INSTRU ity of scanning 00:00: CTIONS. [place] reader 00 Use per Medical (FREESTYLE device Branch CHON 2 instructio READER) ns Misc flash 2021-0 Yes [id number] 1U 1 Units Univer s glucose 9-26 SEE-INSTRU ity of scanning 00:00: CTIONS. [place] reader 00 Use per Medical (FREESTYLE device Branch CHON 2 instructio READER) ns Misc flash 2021-0 Yes [id number] 1U 1 Units Univer s glucose 9-26 SEE-INSTRU ity of scanning 00:00: CTIONS. [place] reader 00 Use per Medical (FREESTYLE device Branch CHON 2 instructio READER) ns Misc flash 2021-0 Yes [id number] 1U 1 Units Univer s glucose 9-26 SEE-INSTRU ity of scanning 00:00: CTIONS. [place] reader 00 Use per Medical (FREESTYLE device Branch CHON 2 instructio READER) ns Misc flash 2021-0 Yes [id number] 1U 1 Units Univer s glucose 9-26 SEE-INSTRU ity of scanning 00:00: CTIONS. [place] reader 00 Use per Medical (FREESTYLE device Branch CHON 2 instructio READER) ns Misc flash 2021-0 Yes [id number] 1U 1 Units Univer s glucose 9-26 SEE-INSTRU ity of scanning 00:00: CTIONS. [place] reader 00 Use per Medical (FREESTYLE device Branch CHON 2 instructio READER) ns Misc flash 2021-0 Yes [id number] 1U 1 Units Univer s glucose 9-26 SEE-INSTRU ity of scanning 00:00: CTIONS. [place] reader 00 Use per Medical (FREESTYLE device Branch CHON 2 instructio READER) ns Misc flash 2021-0 Yes [id number] 1U 1 Units Univer s glucose 9-26 SEE-INSTRU ity of scanning 00:00: CTIONS. [place] reader 00 Use per Medical (FREESTYLE device Branch CHON 2 instructio READER) ns Misc flash 2021-0 Yes [id number] 1U 1 Units Univer s glucose 9-26 SEE-INSTRU ity of scanning 00:00: CTIONS. [place] reader 00 Use per Medical (FREESTYLE device Branch CHON 2 instructio READER) ns Misc flash 2021-0 Yes [id number] 1U 1 Units Univer s glucose 9-26 SEE-INSTRU ity of scanning 00:00: CTIONS. [place] reader 00 Use per Medical (FREESTYLE device Branch CHON 2 instructio READER) ns [facility] flash Yes [id number] 1U 1 Units Univer s glucose 08-18 SEE-INSTRU ity of scanning 00:00: CTIONS. [place] reader 00 Use per Medical (FREESTYLE device Branch CHON 2 instructio READER) ns [facility] flash Yes [id number] 1U 1 Units Univer s glucose 08-18 SEE-INSTRU ity of scanning 00:00: CTIONS. [place] reader 00 Use per Medical (FREESTYLE device Branch CHON 2 instructio READER) ns [facility] flash Yes [id number] 1U 1 Units Univer s glucose 08-18 SEE-INSTRU ity of scanning 00:00: CTIONS. [place] reader 00 Use per Medical (FREESTYLE device Branch CHON 2 instructio READER) [facility] azithromyci 2021- No 500mg 500 mg, U nivers n 08-17 Oral, ity of (ZITHROMAX) 03:00: 13:59 DAILY, 4 [place] tablet 500 00 :00 doses, Medical mg First dose Branch on 08/16/22 at 2200, Last dose on 08/19/22 at 0900, DELFIN
Re ason for Anti-Infec tive: Documented Infection< br>Documen jennifer Infection Site: Respirator y
Durat ion of Therapy: Other (see Comments) predniSONE 2021- No [id number] 40mg Take 2 [facility] 20 mg 9-25 10- tablets by ity of tablet 00:00: 04:59 mouth in [place] 00 :00 [facility] morning [place] for 5 days. predniSONE 2021- No [id number] 40mg Take 2 [facility] 20 mg 9-25 10-01 tablets by ity of tablet 00:00: 04:59 mouth in [place] 00 :00 [facility] morning [place] for 5 days. predniSONE 2021- No [id number] 40mg Take 2 [facility] 20 mg 9-25 10-01 tablets by ity of tablet 00:00: 04:59 mouth in [place] 00 :00 [facility] morning [place] for 5 days. predniSONE 2021- No [id number] 40mg Take 2 [facility] 20 mg 9-25 10-01 tablets by ity of tablet 00:00: 04:59 mouth in [place] 00 :00 the [facility] morning [place] for 5 days. predniSONE 2021-2021- No [id number] 40mg Take 2 [facility] 20 mg 9-25 10-01 tablets by ity of tablet 00:00: 04:59 mouth in [place] 00 :00 the [facility] morning [place] for 5 days. predniSONE 2021-2021- No [id number] 40mg Take 2 [facility] 20 mg 9-25 10-01 tablets by ity of tablet 00:00: 04:59 mouth in [place] 00 :00 the [facility] morning [place] for 5 days. predniSONE 2021-2021- No [id number] 40mg Take 2 [facility] 20 mg 9-25 10-01 tablets by ity of tablet 00:00: 04:59 mouth in [place] 00 :[address] [facility] for 5 days. predniSONE 2021-2021- No [id number] 40mg Take 2 [facility] 20 mg 9-25 10-01 tablets by ity of tablet 00:00: 04:59 mouth in [place] 00 :[address] [facility] for 5 days. acetaminoph Yes 1 tablet Un les[place] 325 mg 9-24 as needed ity o f tablet 16:47: [address] acetaminoph Yes 1 tablet Un les[facility] en 325 mg 9-24 as needed ity o f tablet 16:47: [address] acetaminoph Yes 1 tablet Un les[place] en 325 mg 9-24 as needed ity o f tablet 16:47: [address] acetaminoph 2021- Yes 1 tablet Un les[facility] en 325 mg 9-24 as needed ity o f tablet 16:47: [address] acetaminoph 0 Yes 1 tablet Un les[place] en 325 mg 9-24 as needed ity o f tablet 16:47: [address] acetaminoph 2021-0 Yes 1 tablet Un les[facility] en 325 mg 9-24 as needed ity o f tablet 16:47: [address] acetaminoph 2021-0 Yes 1 tablet Un les[place] en 325 mg 9-24 as needed ity o f tablet 16:47: [address] acetaminoph 2021-0 Yes 1 tablet Un [place] en 325 mg 9-24 as needed ity o f tablet 16:47: [place] [address] [facility] acetaminoph 2021-0 Yes 1 tablet Un lesly en 325 mg 9-24 as needed ity o f tablet 16:47: [address] Branch acetaminoph 2021-0 Yes 1 tablet Un lesly en 325 mg 9-24 as needed ity o f tablet 16:47: [place] [address] [facility] acetaminoph 2021-0 Yes 1 tablet Un les[facility] en 325 mg 9-24 as needed ity o f tablet 16:47: [address] Branch acetaminoph 2021-0 Yes 1 tablet Un les[place] en 325 mg 9-24 as needed ity o f tablet 16:47: [address] Branch acetaminoph 2021-0 Yes 1 tablet Un [facility] en 325 mg 9-24 as needed ity o f tablet 16:47: [address] Branch acetaminoph 2021-0 Yes 1 tablet Un [facility] en 325 mg 9-24 as needed ity o f tablet 16:47: [address] Branch acetaminoph 2021-0 Yes 1 tablet [facility] [place] en 325 mg 9-24 as needed ity o f tablet 16:47: [address] Branch acetaminoph 2021-0 Yes 1 tablet Un [facility] en 325 mg 9-24 as needed ity o f tablet 16:47: [address] Branch acetaminoph 2021-0 Yes 1 tablet Un [facility] en 325 mg 9-24 as needed ity o f tablet 16:47: [address] Branch acetaminoph 2021-0 Yes 1 tablet Un [facility] en 325 mg 9-24 as needed ity o f tablet 16:47: [address] Branch acetaminoph 2021-0 Yes 1 tablet Un [facility] en 325 mg 9-24 as needed ity o f tablet 16:47: [address] Branch acetaminoph 2021-0 Yes 1 tablet Un les[facility] en 325 mg 9-24 as needed ity o f tablet 16:47: [address] Branch acetaminoph 2021-0 Yes 1 tablet Un les[facility] en 325 mg 9-24 as needed ity o f tablet 16:47: [address] Branch acetaminoph 2021-0 Yes 1 tablet Un les[place] en 325 mg 9-24 as needed ity o f tablet 16:47: [address] Branch acetaminoph 2021-0 Yes 1 tablet Un les[place] en 325 mg 9-24 as needed ity o f tablet 16:47: [place] [address] [facility] acetaminoph 2021-0 Yes 1 tablet Un lesly en 325 mg 9-24 as needed ity o f tablet 16:47: [place] [address] [facility] acetaminoph 2021-0 Yes 1 tablet Un lesly en 325 mg 9-24 as needed ity o f tablet 16:47: [place] [address] [facility] Branch acetaminoph 2021-0 Yes 1 tablet Un lesly en 325 mg 9-24 as needed ity o f tablet 16:47: [place] [address] [facility] Branch acetaminoph 2021-0 Yes 1 tablet Un lesly en 325 mg 9-24 as needed ity o f tablet 16:47: [place] [address] [facility] Branch acetaminoph 2021-0 Yes 1 tablet Un lesly en 325 mg 9-24 as needed ity o f tablet 16:47: [place] [address] [facility] Branch acetaminoph 2021-0 Yes 1 tablet Un lesly en 325 mg 9-24 as needed ity o f tablet 16:47: [place] [address] [facility] Branch acetaminoph 2021-0 Yes 1 tablet Un lesly en 325 mg 9-24 as needed ity o f tablet 16:47: [place] [address] [facility] acetaminoph 2021-0 Yes 1 tablet Un lesly en 325 mg 9-24 as needed ity o f tablet 16:47: [place] [address] [facility] Branch acetaminoph 2021-0 Yes 1 tablet Un lesly en 325 mg 9-24 as needed ity o f tablet 16:47: [address] Branch acetaminoph 2021-0 Yes 1 tablet Un lesly en 325 mg 9-24 as needed ity o f tablet 16:47: [place] [address] [facility] Branch acetaminoph 2021-0 Yes 1 tablet Un lesly en 325 mg 9-24 as needed ity o f tablet 16:47: [place] [address] [facility] Branch acetaminoph 2021-0 Yes 1 tablet Un lesly en 325 mg 9-24 as needed ity o f tablet 16:47: [place] [address] [facility] Branch acetaminoph 2021-0 Yes 1 tablet Un lesly en 325 mg 9-24 as needed ity o f tablet 16:47: [place] [address] [facility] Branch acetaminoph 2021-0 Yes 1 tablet Un lesly en 325 mg 9-24 as needed ity o f tablet 16:47: [place] [facility] acetaminoph 2021-0 Yes 1 tablet Un lesly en 325 mg 9-24 as needed ity o f tablet 16:47: [place] [address] [facility] Branch acetaminoph 2021-0 Yes 1 tablet Un lesly en 325 mg 9-24 as needed ity o f tablet 16:47: [place] [address] [facility] Branch acetaminoph 2021-0 Yes 1 tablet Un lesly en 325 mg 9-24 as needed ity o f tablet 16:47: [place] [address] [facility] acetaminoph 2021-0 Yes 1 tablet Un lesly en 325 mg 9-24 as needed ity o f tablet 16:47: [place] [address] [facility] acetaminoph 2021-0 Yes 1 tablet Un lesly en 325 mg 9-24 as needed ity o f tablet 16:47: [place] [address] [facility] acetaminoph 2021-0 Yes 1 tablet Un lesly en 325 mg 9-24 as needed ity o f tablet 16:47: [place] [address] [facility] acetaminoph 2021-0 Yes 1 tablet Un lesly en 325 mg 9-24 as needed ity o f tablet 16:47: [place] [address] [facility] acetaminoph 2021-0 Yes 1 tablet Un lesly en 325 mg 9-24 as needed ity o f tablet 16:47: [place] [address] [facility] acetaminoph 2021-0 Yes 1 tablet Un lesly en 325 mg 9-24 as needed ity o f tablet 16:47: [place] [address] [facility] Branch acetaminoph 2021-0 Yes 1 tablet Un lesly en 325 mg 9-24 as needed ity o f tablet 16:47: [address] Branch acetaminoph 2021-0 Yes 1 tablet Un lesly en 325 mg 9-24 as needed ity o f tablet 16:47: [place] [address] [facility] Branch acetaminoph 2021-0 Yes 1 tablet Un lesly en 325 mg 9-24 as needed ity o f tablet 16:47: [place] [address] [facility] Branch acetaminoph 2021-0 Yes 1 tablet Un lesly en 325 mg 9-24 as needed ity o f tablet 16:47: [place] [address] [facility] Branch acetaminoph 2021-0 Yes 1 tablet Un lesly en 325 mg 9-24 as needed ity o f tablet 16:47: [address] Branch acetaminoph 2021-0 Yes 1 tablet Un lesly en 325 mg 9-24 as needed ity o f tablet 16:47: [address] acetaminoph Yes 1 tablet Un lesly en 325 mg 9-24 as needed ity o f tablet 16:47: [address] acetaminoph Yes 1 tablet Un les[place] en 325 mg 9-24 as needed ity o f tablet 16:47: [address] acetaminoph Yes 1 tablet Un les[facility] en 325 mg 9-24 as needed ity o f tablet 16:47: [address] acetaminoph Yes 1 tablet Un les[facility] en 325 mg 9-24 as needed ity o f tablet 16:47: [address] atorvastati Yes 80mg 80 mg, Univ ers n (LIPITOR) 9-24 Oral, QHS, it y of tablet 80 02:00: First dose [place] mg 00 on Thu08/15/22 at [place] 2100, Until Discontinu ed, Routine albuterol Yes [id number] 2{puff} Inhale 2 [facility] 90 9-24 Puffs ity of mcg/actuati 00:00: every 6 [place] as on inhaler 00 (six) Medical hours as Branch needed for Wheezing, Shortness of Breath, Bronchospa sm or Chest tightness. albuterol Yes [id number] 2{puff} Inhale 2 [facility] 90 9-24 Puffs ity of mcg/actuati 00:00: every 6 [place] as on inhaler 00 (six) Medical hours as Branch needed for Wheezing, Shortness of Breath, Bronchospa sm or Chest tightness. albuterol Yes [id number] 2{puff} Inhale 2 [facility] 90 9-24 Puffs ity of mcg/actuati 00:00: every 6 [place] on inhaler 00 (six) Medical hours as Branch needed for Wheezing, Shortness of Breath, Bronchospa sm or Chest tightness. albuterol Yes [id number] 2{puff} Inhale 2 [facility] 90 9-24 Puffs ity of mcg/actuati 00:00: every 6 [place] as on inhaler 00 (six) Medical hours as Branch needed for Wheezing, Shortness of Breath, Bronchospa sm or Chest tightness. albuterol Yes [id number] 2{puff} Inhale 2 [facility] 90 9-24 Puffs ity of mcg/actuati 00:00: every 6 [place] on inhaler 00 (six) Medical hours as Branch needed for Wheezing, Shortness of Breath, Bronchospa sm or Chest tightness. albuterol Yes [id number] 2{puff} Inhale 2 [facility] 90 9-24 Puffs ity of mcg/actuati 00:00: every 6 [place] on inhaler 00 (six) Medical hours as Branch needed for Wheezing, Shortness of Breath, Bronchospa sm or Chest tightness. albuterol Yes [id number] 2{puff} Inhale 2 [facility] 90 9-24 Puffs ity of mcg/actuati 00:00: every 6 [place] as on inhaler 00 (six) Medical hours as Branch needed for Wheezing, Shortness of Breath, Bronchospa sm or Chest tightness. albuterol Yes [id number] 2{puff} Inhale 2 [facility] 90 9-24 Puffs ity of mcg/actuati 00:00: every 6 [place] as on inhaler 00 (six) Medical hours as Branch needed for Wheezing, Shortness of Breath, Bronchospa sm or Chest tightness. albuterol Yes [id number] 2{puff} Inhale 2 [facility] 90 9-24 Puffs ity of mcg/actuati 00:00: every 6 [place] on inhaler 00 (six) Medical hours as Branch needed for Wheezing, Shortness of Breath, Bronchospa sm or Chest tightness. azithromyci Yes Z-Wil = Uni vers n 250 mg 9-24 500 mg day ity o f tablet 00:00: 1, then 250 mg Medical days 2 to Branch 5. albuterol Yes [id number] 2{puff} Inhale 2 [facility] 90 9-24 Puffs ity of mcg/actuati 00:00: every 6 [place] on inhaler 00 (six) Medical hours as Branch needed for Wheezing, Shortness of Breath, Bronchospa sm or Chest tightness. albuterol Yes [id number] 2{puff} Inhale 2 [facility] 90 9-24 Puffs ity of mcg/actuati 00:00: every 6 [place] on inhaler 00 (six) Medical hours as Branch needed for Wheezing, Shortness of Breath, Bronchospa sm or Chest tightness. azithromyci 0 Yes Z-Wil = Uni vers n 250 mg 9-24 500 mg day ity o f tablet 00:00: 1, then [place] 00 250 mg Medical days 2 to Branch 5. albuterol 2021-0 Yes [id number] 2{puff} Inhale 2 [facility] 90 9-24 Puffs ity of mcg/actuati 00:00: every 6 [place] on inhaler 00 (six) Medical hours as Branch needed for Wheezing, Shortness of Breath, Bronchospa sm or Chest tightness. azithromyci 2021-0 Yes Z-Wil = Uni vers n 250 mg 9-24 500 mg day ity o f tablet 00:00: 1, then [place] 00 250 mg Medical days 2 to Branch 5. albuterol 2021-0 Yes [id number] 2{puff} Inhale 2 [facility] 90 9-24 Puffs ity of mcg/actuati 00:00: every 6 [place] on inhaler 00 (six) Medical hours as Branch needed for Wheezing, Shortness of Breath, Bronchospa sm or Chest tightness. azithromyci 2021-0 Yes Z-Wil = Uni vers n 250 mg 9-24 500 mg day ity o f tablet 00:00: 1, then [place] 00 250 mg Medical days 2 to Branch 5. albuterol 2021-0 Yes [id number] 2{puff} Inhale 2 [facility] 90 9-24 Puffs ity of mcg/actuati 00:00: every 6 [place] on inhaler 00 (six) Medical hours as Branch needed for Wheezing, Shortness of Breath, Bronchospa sm or Chest tightness. azithromyci 2021-0 Yes Z-Wil = Uni vers n 250 mg 9-24 500 mg day ity o f tablet 00:00: 1, then [place] 00 250 mg Medical days 2 to Branch 5. albuterol 2021-0 Yes [id number] 2{puff} Inhale 2 [facility] 90 9-24 Puffs ity of mcg/actuati 00:00: every 6 [place] as on inhaler 00 (six) Medical hours as Branch needed for Wheezing, Shortness of Breath, Bronchospa sm or Chest tightness. azithromyci Yes Z-Wil = Uni vers n 250 mg 9-24 500 mg day ity o f tablet 00:00: 1, then [place] 00 250 mg Medical days 2 to Branch 5. albuterol Yes [id number] 2{puff} Inhale 2 [facility] 90 9-24 Puffs ity of mcg/actuati 00:00: every 6 [place] as on inhaler 00 (six) Medical hours as Branch needed for Wheezing, Shortness of Breath, Bronchospa sm or Chest tightness. azithromyci Yes Z-Wil = Uni vers n 250 mg 9-24 500 mg day ity o f tablet 00:00: 1, then [place] 00 250 mg Medical days 2 to Branch 5. albuterol Yes [id number] 2{puff} Inhale 2 [facility] 90 9-24 Puffs ity of mcg/actuati 00:00: every 6 [place] on inhaler 00 (six) Medical hours as Branch needed for Wheezing, Shortness of Breath, Bronchospa sm or Chest tightness. azithromyci Yes Z-Wil = Uni vers n 250 mg 9-24 500 mg day ity o f tablet 00:00: 1, then [place] 00 250 mg Medical days 2 to Branch 5. albuterol 2021- Yes [id number] 2{puff} Inhale 2 [facility] 90 9-24 Puffs ity of mcg/actuati 00:00: every 6 [place] on inhaler 00 (six) Medical hours as Branch needed for Wheezing, Shortness of Breath, Bronchospa sm or Chest tightness. azithromyci Yes Z-Wil = Uni vers n 250 mg 9-24 500 mg day ity o f tablet 00:00: 1, then [place] 00 250 mg Medical days 2 to Branch 5. albuterol 2021-0 Yes [id number] 2{puff} Inhale 2 [facility] 90 9-24 Puffs ity of mcg/actuati 00:00: every 6 [place] on inhaler 00 (six) Medical hours as Branch needed for Wheezing, Shortness of Breath, Bronchospa sm or Chest tightness. azithromyci Yes Z-Wil = Uni vers n 250 mg 9-24 500 mg day ity o f tablet 00:00: 1, then 00 250 mg Medical days 2 to Branch 5. albuterol Yes [id number] 2{puff} Inhale 2 [facility] 90 9-24 Puffs ity of mcg/actuati 00:00: every 6 [place] on inhaler 00 (six) Medical hours as Branch needed for Wheezing, Shortness of Breath, Bronchospa sm or Chest tightness. azithromyci Yes Z-Wil = Uni vers n 250 mg 9-24 500 mg day ity o f tablet 00:00: 1, then 00 250 mg Medical days 2 to Branch 5. albuterol Yes [id number] 2{puff} Inhale 2 [facility] 90 9-24 Puffs ity of mcg/actuati 00:00: every 6 [place] on inhaler 00 (six) Medical hours as Branch needed for Wheezing, Shortness of Breath, Bronchospa sm or Chest tightness. albuterol Yes [id number] 2{puff} Inhale 2 [facility] 90 9-24 Puffs ity of mcg/actuati 00:00: every 6 [place] on inhaler 00 (six) Medical hours as Branch needed for Wheezing, Shortness of Breath, Bronchospa sm or Chest tightness. albuterol Yes [id number] 2{puff} Inhale 2 [facility] 90 9-24 Puffs ity of mcg/actuati 00:00: every 6 [place] on inhaler 00 (six) Medical hours as Branch needed for Wheezing, Shortness of Breath, Bronchospa sm or Chest tightness. albuterol Yes [id number] 2{puff} Inhale 2 [facility] 90 9-24 Puffs ity of mcg/actuati 00:00: every 6 [place] on inhaler 00 (six) Medical hours as Branch needed for Wheezing, Shortness of Breath, Bronchospa sm or Chest tightness. albuterol Yes [id number] 2{puff} Inhale 2 [facility] 90 9-24 Puffs ity of mcg/actuati 00:00: every 6 [place] on inhaler 00 (six) Medical hours as Branch needed for Wheezing, Shortness of Breath, Bronchospa sm or Chest tightness. albuterol Yes [id number] 2{puff} Inhale 2 [facility] 90 9-24 Puffs ity of mcg/actuati 00:00: every 6 [place] on inhaler 00 (six) Medical hours as Branch needed for Wheezing, Shortness of Breath, Bronchospa sm or Chest tightness. albuterol Yes [id number] 2{puff} Inhale 2 [facility] 90 9-24 Puffs ity of mcg/actuati 00:00: every 6 [place] on inhaler 00 (six) Medical hours as Branch needed for Wheezing, Shortness of Breath, Bronchospa sm or Chest tightness. albuterol Yes [id number] 2{puff} Inhale 2 [facility] 90 9-24 Puffs ity of mcg/actuati 00:00: every 6 [place] on inhaler 00 (six) Medical hours as Branch needed for Wheezing, Shortness of Breath, Bronchospa sm or Chest tightness. albuterol Yes [id number] 2{puff} Inhale 2 [facility] 90 9-24 Puffs ity of mcg/actuati 00:00: every 6 [place] on inhaler 00 (six) Medical hours as Branch needed for Wheezing, Shortness of Breath, Bronchospa sm or Chest tightness. albuterol Yes [id number] 2{puff} Inhale 2 [facility] 90 9-24 Puffs ity of mcg/actuati 00:00: every 6 [place] on inhaler 00 (six) Medical hours as Branch needed for Wheezing, Shortness of Breath, Bronchospa sm or Chest tightness. albuterol Yes [id number] 2{puff} Inhale 2 [facility] 90 9-24 Puffs ity of mcg/actuati 00:00: every 6 [place] on inhaler 00 (six) Medical hours as Branch needed for Wheezing, Shortness of Breath, Bronchospa sm or Chest tightness. albuterol Yes [id number] 2{puff} Inhale 2 [facility] 90 9-24 Puffs ity of mcg/actuati 00:00: every 6 [place] on inhaler 00 (six) Medical hours as Branch needed for Wheezing, Shortness of Breath, Bronchospa sm or Chest tightness. albuterol Yes [id number] 2{puff} Inhale 2 [facility] 90 9-24 Puffs ity of mcg/actuati 00:00: every 6 [place] as on inhaler 00 (six) Medical hours as Branch needed for Wheezing, Shortness of Breath, Bronchospa sm or Chest tightness. albuterol Yes [id number] 2{puff} Inhale 2 [facility] 90 9-24 Puffs ity of mcg/actuati 00:00: every 6 [place] as on inhaler 00 (six) Medical hours as Branch needed for Wheezing, Shortness of Breath, Bronchospa sm or Chest tightness. albuterol Yes [id number] 2{puff} Inhale 2 [facility] 90 9-24 Puffs ity of mcg/actuati 00:00: every 6 [place] as on inhaler 00 (six) Medical hours as Branch needed for Wheezing, Shortness of Breath, Bronchospa sm or Chest tightness. albuterol Yes [id number] 2{puff} Inhale 2 [facility] 90 9-24 Puffs ity of mcg/actuati 00:00: every 6 [place] on inhaler 00 (six) Medical hours as Branch needed for Wheezing, Shortness of Breath, Bronchospa sm or Chest tightness. albuterol Yes [id number] 2{puff} Inhale 2 [facility] 90 9-24 Puffs ity of mcg/actuati 00:00: every 6 [place] on inhaler 00 (six) Medical hours as Branch needed for Wheezing, Shortness of Breath, Bronchospa sm or Chest tightness. albuterol Yes [id number] 2{puff} Inhale 2 [facility] 90 9-24 Puffs ity of mcg/actuati 00:00: every 6 [place] on inhaler 00 (six) Medical hours as Branch needed for Wheezing, Shortness of Breath, Bronchospa sm or Chest tightness. albuterol Yes [id number] 2{puff} Inhale 2 [facility] 90 9-24 Puffs ity of mcg/actuati 00:00: every 6 [place] on inhaler 00 (six) Medical hours as Branch needed for Wheezing, Shortness of Breath, Bronchospa sm or Chest tightness. albuterol Yes [id number] 2{puff} Inhale 2 [facility] 90 9-24 Puffs ity of mcg/actuati 00:00: every 6 [place] on inhaler 00 (six) Medical hours as Branch needed for Wheezing, Shortness of Breath, Bronchospa sm or Chest tightness. albuterol Yes [id number] 2{puff} Inhale 2 [facility] 90 9-24 Puffs ity of mcg/actuati 00:00: every 6 [place] as on inhaler 00 (six) Medical hours as Branch needed for Wheezing, Shortness of Breath, Bronchospa sm or Chest tightness. albuterol Yes [id number] 2{puff} Inhale 2 [facility] 90 9-24 Puffs ity of mcg/actuati 00:00: every 6 [place] as on inhaler 00 (six) Medical hours as Branch needed for Wheezing, Shortness of Breath, Bronchospa sm or Chest tightness. albuterol Yes [id number] 2{puff} Inhale 2 [facility] 90 9-24 Puffs ity of mcg/actuati 00:00: every 6 [place] as on inhaler 00 (six) Medical hours as Branch needed for Wheezing, Shortness of Breath, Bronchospa sm or Chest tightness. albuterol Yes [id number] 2{puff} Inhale 2 [facility] 90 9-24 Puffs ity of mcg/actuati 00:00: every 6 [place] as on inhaler 00 (six) Medical hours as Branch needed for Wheezing, Shortness of Breath, Bronchospa sm or Chest tightness. albuterol 0 Yes [id number] 2{puff} Inhale 2 [facility] 90 9-24 Puffs ity of mcg/actuati 00:00: every 6 [place] as on inhaler 00 (six) Medical hours as Branch needed for Wheezing, Shortness of Breath, Bronchospa sm or Chest tightness. albuterol 2021-0 Yes [id number] 2{puff} Inhale 2 [facility] 90 9-24 Puffs ity of mcg/actuati 00:00: every 6 [place] as on inhaler 00 (six) Medical hours as Branch needed for Wheezing, Shortness of Breath, Bronchospa sm or Chest tightness. albuterol 0 Yes [id number] 2{puff} Inhale 2 [facility] 90 9-24 Puffs ity of mcg/actuati 00:00: every 6 [place] as on inhaler 00 (six) Medical hours as Branch needed for Wheezing, Shortness of Breath, Bronchospa sm or Chest tightness. albuterol Yes [id number] 2{puff} Inhale 2 [facility] 90 9-24 Puffs ity of mcg/actuati 00:00: every 6 [place] as on inhaler 00 (six) Medical hours as Branch needed for Wheezing, Shortness of Breath, Bronchospa sm or Chest tightness. albuterol Yes [id number] 2{puff} Inhale 2 [facility] 90 9-24 Puffs ity of mcg/actuati 00:00: every 6 [place] as on inhaler 00 (six) Medical hours as Branch needed for Wheezing, Shortness of Breath, Bronchospa sm or Chest tightness. albuterol Yes [id number] 2{puff} Inhale 2 [facility] 90 9-24 Puffs ity of mcg/actuati 00:00: every 6 [place] as on inhaler 00 (six) Medical hours as Branch needed for Wheezing, Shortness of Breath, Bronchospa sm or Chest tightness. albuterol Yes [id number] 2{puff} Inhale 2 [facility] 90 9-24 Puffs ity of mcg/actuati 00:00: every 6 [place] as on inhaler 00 (six) Medical hours as Branch needed for Wheezing, Shortness of Breath, Bronchospa sm or Chest tightness. albuterol Yes [id number] 2{puff} Inhale 2 [facility] 90 9-24 Puffs ity of mcg/actuati 00:00: every 6 [place] as on inhaler 00 (six) Medical hours as Branch needed for Wheezing, Shortness of Breath, Bronchospa sm or Chest tightness. albuterol Yes [id number] 2{puff} Inhale 2 [facility] 90 9-24 Puffs ity of mcg/actuati 00:00: every 6 [place] as on inhaler 00 (six) Medical hours as Branch needed for Wheezing, Shortness of Breath, Bronchospa sm or Chest tightness. albuterol Yes [id number] 2{puff} Inhale 2 [facility] 90 9-24 Puffs ity of mcg/actuati 00:00: every 6 [place] as on inhaler 00 (six) Medical hours as Branch needed for Wheezing, Shortness of Breath, Bronchospa sm or Chest tightness. albuterol Yes [id number] 2{puff} Inhale 2 [facility] 90 9-24 Puffs ity of mcg/actuati 00:00: every 6 [place] as on inhaler 00 (six) Medical hours as Branch needed for Wheezing, Shortness of Breath, Bronchospa sm or Chest tightness. albuterol Yes [id number] 2{puff} Inhale 2 [facility] 90 9-24 Puffs ity of mcg/actuati 00:00: every 6 [place] as on inhaler 00 (six) Medical hours as Branch needed for Wheezing, Shortness of Breath, Bronchospa sm or Chest tightness. albuterol Yes [id number] 2{puff} Inhale 2 [facility] 90 9-24 Puffs ity of mcg/actuati 00:00: every 6 [place] as on inhaler 00 (six) Medical hours as Branch needed for Wheezing, Shortness of Breath, Bronchospa sm or Chest tightness. albuterol Yes [id number] 2{puff} Inhale 2 [facility] 90 9-24 Puffs ity of mcg/actuati 00:00: every 6 [place] as on inhaler 00 (six) Medical hours as Branch needed for Wheezing, Shortness of Breath, Bronchospa sm or Chest tightness. albuterol Yes [id number] 2{puff} Inhale 2 [facility] 90 9-24 Puffs ity of mcg/actuati 00:00: every 6 [place] as on inhaler 00 (six) Medical hours as Branch needed for Wheezing, Shortness of Breath, Bronchospa sm or Chest tightness. albuterol 2021- No [id number] 2{puff} Inhale 2 [facility] 90 9-24 11-07 Puffs ity of mcg/actuati 00:00: 00:00 every 6 [place] on inhaler 00 :00 (six) Medical hours as Branch needed for Wheezing, Shortness of Breath, Bronchospa sm or Chest tightness. albuterol 2- No [id number] 2{puff} Inhale 2 [facility] 90 9-24 11-07 Puffs ity of mcg/actuati 00:00: 00:00 every 6 [place] on inhaler 00 :00 (six) Medical hours as Branch needed for Wheezing, Shortness of Breath, Bronchospa sm or Chest tightness. albuterol 2021- No [id number] 2{puff} Inhale 2 [facility] 90 9-24 11-07 Puffs ity of mcg/actuati 00:00: 00:00 every 6 [place] on inhaler 00 :00 (six) Medical hours as Branch needed for Wheezing, Shortness of Breath, Bronchospa sm or Chest tightness. azithromyci 2021- No Z-Wil = [facility] les[facility] n 250 mg 9-24 10-15 500 mg day ity of tablet 00:00: 00:00 1, then [place] 00 :00 250 mg Medical days 2 to Branch 5. azithromyci 2021- No Z-Wil = [facility] n 250 mg 9-24 10-15 500 mg day ity of tablet 00:00: 00:00 1, then [place] 00 :00 250 mg Medical days 2 to Branch 5. azithromyci 2021- No Z-Wil = Un [facility] n 250 mg 9-24 10-15 500 mg day ity of tablet 00:00: 00:00 1, then [place] 00 :00 250 mg Medical days 2 to Branch 5. azithromyci 2021- No Z-Wil = Un lesly n 250 mg 9-24 10-15 500 mg day ity of tablet 00:00: 00:00 1, then [place] 00 :00 250 mg Medical days 2 to Branch 5. azithromyci 2021- No Z-Wil = Un lesly n 250 mg 9-24 10-15 500 mg day ity of tablet 00:00: 00:00 1, then [place] 00 :00 250 mg Medical days 2 to Branch 5. azithromyci 2021- No Z-Wil = Un lesly n 250 mg 9-24 10-15 500 mg day ity of tablet 00:00: 00:00 1, then [place] 00 :00 250 mg Medical days 2 to Branch 5. azithromyci 2021- No Z-Wil = Un lesly n 250 mg 9-24 10-15 500 mg day ity of tablet 00:00: 00:00 1, then [place] 00 :00 250 mg Medical days 2 to Branch 5. azithromyci 2021- No Z-Wil = Un lesly n 250 mg 9-24 10-15 500 mg day ity of tablet 00:00: 00:00 1, then [place] 00 :00 250 mg Medical days 2 to Branch 5. azithromyci 2021- No Z-Wil = Un lesly n 250 mg 9-24 10-15 500 mg day ity of tablet 00:00: 00:00 1, then [place] 00 :00 250 mg Medical days 2 to Branch 5. azithromyci 2021- No [id number] 500mg Z-Wil = [facility] n 500 mg 9-24 09-30 500 mg day ity of tablet 00:00: 04:59 1, then [place] 00 :00 250 mg Medical days 2 to Branch 5. azithromyci 2021- No [id number] 500mg Z-Wil = [facility] n 500 mg 9-24 09-30 500 mg day ity of tablet 00:: :59 1, then [place] 00 :00 250 mg Medical days 2 to Branch 5. azithromyci 2021- No [id number] 500mg Z-Wil = [facility] n 500 mg 9-24 09-30 500 mg day ity of tablet 00:00: :59 1, then [place] 00 :00 250 mg Medical days 2 to Branch 5. azithromyci 2021- No [id number] 500mg Z-Wil = [facility] n 500 mg 9-24 09-30 500 mg day ity of tablet 00:: :59 1, then [place] 00 :00 250 mg Medical days 2 to Branch 5. azithromyci 2021- No [id number] 500mg Z-Wil = Univers n 500 mg 9-24 09-30 500 mg day ity of tablet 00:: :59 1, then [place] 00 :00 250 mg Medical days 2 to Branch 5. azithromyci 0 2021- No [id number] 500mg Z-Wil = Univers n 500 mg 9-24 09-30 500 mg day ity of tablet 00:00: 04:59 1, then [place] 00 :00 250 mg Medical days 2 to Branch 5. ipratropium 2022-0 Yes 3mL 3 mL, Unive rs -albuteroL 08-15 Inhalation ity of (DUONEB) 22:52: , Q6HPRN, [place] 0.5 mg-3 59 Starting Medical mg(2.5 mg on Thu Branch base)/3 mL 08/15/22 at nebulizer 1752, solution 3 Until mL Discontinu ed, Routine, Wheezing traMADoL 2021-0 Yes 50mg 50 mg, Univers (ULTRAM) 08-15 Oral, ity of tablet 50 22:34: Q6HPRN, [place] mg 33 Starting Medical on Thu Branch 08/15/22 at 1734, Until Discontinu ed, Routine, Pain (scale 4-6) HYDROcodone 2021-0 Yes 1{tbl} 1 tablet, Univers -acetaminop 08-15 Oral, ity of hen (NORCO 22:34: Q6HPRN, [place] 5) 5-325 mg 16 Starting Medi johnathon tablet 1 on Thu Branch tablet 08/15/22 at 1734, Until Discontinu ed, Routine, Pain (scale 7-10) predniSONE 2021-0 Yes 40mg 40 mg, Unive rs (DELTASONE) 08-15 Oral, ity of tablet 40 14:00: DAILY, [place] mg 00 First dose Medical on Thu Branch 08/15/22 at 0900, Until Discontinu ed, Routine isosorbide 2022-0 Yes 60mg 60 mg, Unive rs mononitrate 08-15 Oral, ity of (IMDUR) 24 14:00: DAILY, [place] hr tablet 00 First dose Medi johnathon 60 mg on Thu Branch 08/15/22 at 0900, Until Discontinu ed, Routine furosemide 2022-0 Yes 80mg 80 mg, Unive rs (LASIX) 08-15 Oral, ity of tablet 80 14:00: QAM+PM, [place] mg 00 First dose Medical on Thu Branch 08/15/22 at 0900, Until Discontinu ed, Routine metoprolol 2022-0 Yes 50mg 50 mg, Unive rs succinate 08-15 Oral, ity of XL (TOPROL 14:00: DAILY, [place] XL) tablet 00 First dose Med ical 50 mg on Thu Branch 08/15/22 at 0900, Until Discontinu ed, Routine KCL Yes 20meq 20 mEq, Univers (KLOR-CON 08-15 Oral, ity of M20) tablet 14:00: DAILY, [place] 20 mEq 00 First dose Medical on Fri Branch 08/15/22 at 0900, Until Discontinu ed, Routine allopurinoL Yes 100mg 100 mg, Un lesly (ZYLOPRIM) 08-15 Oral, ity of tablet 100 14:00: DAILY, [place] mg 00 First dose Medical on Fri Branch 08/15/22 at 0900, Until Discontinu ed, Routine losartan No 50mg 50 mg, Univer s (COZAAR) 08-15 Oral, ity of tablet 50 14:00: 13:30 DAILY, [place] mg 00 :44 First dose Medical on Fri Branch 08/15/22 at 0900, Until Discontinu ed, Routine sodium No 4mL 4 mL, Univers chloride 7% 08-15 Inhalation i ty of (HYPER-PAOLO) 14:00: 15:12 , DAILY, [place] nebulizer 00 :59 First dose Medi johnathon solution 4 on Fri Branch mL 08/15/22 at 0900, Until Discontinu ed, Routine apixaban Yes 5mg 5 mg, Univers (ELIQUIS) 08-15 Oral, BID, ity of tablet 5 mg 13:00: First dose [place] 00 on Fri Medical 08/15/22 at Branch 0800, Until Discontinu ed, Routine
Indicatio ns: Non-Valvul ar Atrial Fibrillati on levothyroxi Yes 150ug 150 mcg, U nivers ne 08-15 Oral, ity of (SYNTHROID) 11:00: QAM-0600, [place] tablet 150 00 First dose Med ical mcg on Fri Branch 08/15/22 at 0600, Until Discontinu ed, Routine azithromyci 2021- No 500mg 500 mg, IV Univers n 08-15 Piggyback, ity of (ZITHROMAX) 05:45: 15:55 Q24H ABX, [place] 500 mg in 00 :22 5 doses, Medica l NaCl 0.9% First dose Bran ch (NS) 250 mL on Thu VIAL-MATE 08/15/22 at IV 0045, Last piggyback dose on Thu08/19/22 at 0045, Administer over 60 Minutes, 250 mL
Reas on for Anti-Infec tive: Empiric Therapy for Suspected Infection< br>Empiric Therapy Site: Respirator y
Durat ion of therapy: 5 days codeine-gua 2021-0 Yes 10mL 10 mL, [facility] ers ifenesin 08-15 Oral, ity of (ROBITUSSIN 04:45: TIDPRN, [place] AC) 10-100 39 Starting Medic al mg/5 mL on [place] Branch oral 08/14/22 at solution 10 2345, mL Until Discontinu ed, Routine, Cough budesonide 2021-0 Yes .5mg 0.5 mg, [facility] ers (PULMICORT 08-15 Inhalation ity of RESPULE) 04:45: , BID, [place] nebulizer 00 First dose Medi johnathon solution on [place] Branch 0.5 mg 08/14/22 at 2345, Until Discontinu ed, Routine ipratropium 2021-0 Yes 3mL 3 mL, [facility] rs -albuteroL 08-15 Inhalation ity of (DUONEB) 04:45: , Q4H, [place] 0.5 mg-3 00 First dose Medic al mg(2.5 mg on [place] Branch base)/3 mL 08/14/22 at nebulizer 2345, solution 3 Until mL Discontinu ed, Routine aspirin 2021-0 Yes 81mg 81 mg, Univers chewable 08-15 Oral, QAM ity of tablet 81 04:45: WITH [place] mg 00 BREAKFAST, Medical First dose Branch on Thu08/14/22 at 2345, Until Discontinu ed, Routine Sliding 2021-0 Yes Subcutaneo [facility] ers Scale 08-15 us, TID ity of Insulin - 04:45: MEALS+HS, [place] Lispro 00 First dose Medical (HumaLOG) + on [place] Branch Fsbg 08/14/22 at Testing 2345, Until Discontinu ed, Routine NaCl 0.9% 2021-0 2022- No 1000mL at 50 [facility] ers (NS) IV 08-15 09-23 mL/hr, IV ity of infusion 04:45: 15:11 Infusion, [place] 1,000 mL 00 :13 CONTINUOUS Medic al , Starting Branch on [place] 08/14/22 at 2345, Until 08/15/22 at 1011, Routine iopamidol 2021- No [id number] 65mL 65 mL, Un lesly (ISOVUE 08-15 Intravenou ity o f 370-500 mL) 03:30: 02:46 s, ONCE, 1 [place] injection 00 :00 dose, On Medica l 65 mL [place] Branch 08/14/22 at 2230, Routine NaCl 0.9% 2021- No 1000mL at 100 Uni vers (NS) IV 08-15 mL/hr, IV ity of infusion 03:15: 04:41 Infusion, [place] 1,000 mL 00 :18 CONTINUOUS Medic al , Starting Branch on [place] 08/14/22 at 2215, Until [place] 08/14/22 at 2341, Routine dextrometho 2021- No 10mL 10 mL, Uni vers rphan-guaif 08-15 Oral, ONCE i ty of enesin 01:15: 00:17 NOW, 1 [place] (ROBITUSSIN 00 :00 dose, On Medi johnathon DM) 10-100 [place] Branch mg/5 mL 08/14/22 at solution 10 2014, mL Routine ipratropium 2021- No 6mL 6 mL, Univ ers -albuteroL 08-15 Inhalation it y of (DUONEB) 01:15: 00:21 , ONCE [place] 0.5 mg-3 00 :00 NOW, 1 Medical mg(2.5 mg dose, On Branch base)/3 mL [place] nebulizer 08/14/22 at solution 6 2014, mL Routine aspirin 2021- No 325mg 325 mg, Unive rs tablet 325 08-15 Oral, ONCE it y of mg 00:30: 23:35 NOW, 1 [place] 00 :00 dose, On Medical [place] Branch 08/14/22 at 1930, Routine levalbutero 2021- No 1.25mg 1.25 mg, Univers l (XOPENEX) 08-15 Inhalation i ty of nebulizer 00:15: 23:26 , ONCE [place] solution 00 :00 NOW, 1 Medical 1.25 mg dose, On Branch [place] 08/14/22 at 1915, Routine nitroglycer 2021- No .4mg 0.4 mg, Un lesly in 08-14 Sublingual ity of (NITROSTAT) 23:30: 23:50 , Q5MIN [place] sublingual 30 :00 PRN, 3 Medical tablet 0.4 doses, Branch mg Starting on [place] 08/14/22 at 1830, Until [place] 08/14/22 at 1850, DELFIN, Chest pain metoprolol 2021- No 5mg 5 mg, Slow Univers (LOPRESSOR) 08-14 IV Push, ity of injection 5 23:30: 23:26 ONCE, 1 [place] mg 00 :00 dose, On Medical [place] Branch 08/14/22 at 1830, DELFIN dexamethaso 2021- No 10mg 10 mg, Uni vers ne sod phos 08-14 Slow IV ity of PF 23:30: 23:26 Push, [place] injection 00 :00 ONCE, 1 Medical 10 mg dose, On Branch [place] 08/14/22 at 1830, 1 mL molnupiravi 2021- No 800mg Take 4 Un lesly r 200 mg 07-31 capsules ity of capsule 00:00: 00:00 by mouth [place] 00 :00 every 12 Medical (twelve) Branch hours. FENTanyl PF 2021- No 50ug 50 mcg, Un lesly (SUBLIMAZE 07-26 Intramuscu it y of (PF)) 03:30: 02:40 lar, ONCE, [place] injection 00 :00 1 dose, On Medi johnathon 50 mcg 07/25/22 Branch at 2230, Routine ampicillin- 2021- No 3g 3 g, IV Un lesly sulbactam 07-26 Piggyback, ity of (UNASYN) 3 03:00: 03:40 ONCE, 1 [place] g in NaCl 00 :00 dose, On Medica l 0.9% (NS) 07/25/22 Bran ch 100 mL at 2200, MINI-BAG Administer over 30 Minutes, 100 mL
Reas on for Anti-Infec tive: Empiric Therapy for Suspected Infection< br>Empiric Therapy Site: Skin / Soft tissue
Duration of therapy: 72 hours ondansetron 0 2021- No 4mg 4 mg, Univ ers (ZOFRAN-ODT 07-26 Oral, ity of ) 01:30: 00:35 ONCE, 1 [place] disintegrat 00 :00 dose, On Medi johnathon ing tablet Thu07/25/22 Bra nch 4 mg at 2030, Routine HYDROcodone 0 2021- No 1{tbl} 1 tablet, Univers -acetaminop 07-26 Oral, ity of hen (NORCO 00:30: 00:35 ONCE, 1 [place] 5) 5-325 mg 00 :00 dose, On Medi johnathon tablet 1 Thu07/25/22 Branc h tablet at 1930, DELFIN amoxicillin 2021-0 Yes [id number] 1{tbl} Take 1 Univers -clavulanat 9-02 tablet by ity of e 875-125 00:00: mouth [place] mg per 00 every 12 Medical tablet (twelve) Branch hours. doxycycline 2021-0 Yes [id number] 100mg Take 1 [facility] hyclate 100 9-02 capsule by it y of mg capsule 00:00: mouth in [place] 00 the Medical morning Branch and 1 capsule in the evening. amoxicillin 2021-0 Yes [id number] 1{tbl} Take 1 Univers -clavulanat 9-02 tablet by ity of e 875-125 00:00: mouth [place] mg per 00 every 12 Medical tablet (twelve) Branch hours. doxycycline 2021-0 Yes [id number] 100mg Take 1 [facility] hyclate 100 9-02 capsule by it y of mg capsule 00:00: mouth in [place] 00 the Medical morning Branch and 1 capsule in the evening. amoxicillin 2021-0 Yes [id number] 1{tbl} Take 1 Univers -clavulanat 9-02 tablet by ity of e 875-125 00:00: mouth [place] mg per 00 every 12 Medical tablet (twelve) Branch hours. doxycycline 2021-0 Yes [id number] 100mg Take 1 [facility] hyclate 100 9-02 capsule by it y of mg capsule 00:00: mouth in [place] 00 the Medical morning Branch and 1 capsule in the evening. amoxicillin 2021-0 Yes [id number] 1{tbl} Take 1 [facility] -clavulanat 9-02 tablet by ity of e 875-125 00:00: mouth [place] mg per 00 every 12 Medical tablet (twelve) Branch hours. doxycycline 2021-0 Yes [id number] 100mg Take 1 [facility] hyclate 100 9-02 capsule by it y of mg capsule 00:00: mouth in [place] 00 the Medical morning Branch and 1 capsule in the evening. amoxicillin 2021-0 Yes [id number] 1{tbl} Take 1 [facility] -clavulanat 9-02 tablet by ity of e 875-125 00:00: mouth [place] mg per 00 every 12 Medical tablet (twelve) Branch hours. doxycycline 2021-0 Yes [id number] 100mg Take 1 [facility] hyclate 100 9-02 capsule by it y of mg capsule 00:00: mouth in [place] 00 the Medical morning Branch and 1 capsule in the evening. amoxicillin 2021-0 Yes [id number] 1{tbl} Take 1 [facility] -clavulanat 9-02 tablet by ity of e 875-125 00:00: mouth [place] mg per 00 every 12 Medical tablet (twelve) Branch hours. doxycycline 2021-0 Yes [id number] 100mg Take 1 [facility] hyclate 100 9-02 capsule by it y of mg capsule 00:00: mouth in [place] 00 the Medical morning Branch and 1 capsule in the evening. amoxicillin 2021-0 2021- No [id number] 1{tbl} Take 1 [facility] -clavulanat 9-02 09-24 tablet by it y of e 875-125 00:00: 00:00 mouth [place] mg per 00 :00 every 12 Medical tablet (twelve) Branch hours. doxycycline 2021-0 202- No [id number] 100mg Take 1 [facility] hyclate 100 9-02 09-24 capsule by i ty of mg capsule 00:00: 00:00 mouth in [place] 00 :00 the Medical morning Branch and 1 capsule in the evening. HYDROcodone 2021-0 2021- No [id number] 1{tbl} Take 1 U nivers -acetaminop 9- 09-10 tablet by it y of hen 10-325 00:00: 04:59 mouth [place] mg tablet 00 :00 every 6 Medical (six) Branch hours as needed for Pain (scale 7-10) for up to 7 days. Indication s: acute pain HYDROcodone 2021- No [id number] 1{tbl} Take 1 U nivers -acetaminop 9-02 -10 tablet by it y of hen 10-325 00:00: 04:59 mouth [place] mg tablet 00 :00 every 6 Medical (six) Branch hours as needed for Pain (scale 7-10) for up to 7 days. Indication s: acute pain HYDROcodone 2021- No [id number] 1{tbl} Take 1 U nivers -acetaminop 9-01 01-10 tablet by it y of hen 10-325 00:00: 04:59 mouth [place] mg tablet 00 :00 every 6 Medical (six) Branch hours as needed for Pain (scale 7-10) for up to 7 days. Indication s: acute pain acetaminoph Yes 1 tablet Un lesly en 325 mg 8-18 as needed ity o f tablet 02:42: [facility] Branch acetaminoph Yes 1 tablet Un lesly en 325 mg 8-18 as needed ity o f tablet 02:42: [facility] Branch acetaminoph Yes 1 tablet Un lesly en 325 mg 8-18 as needed ity o f tablet 02:42: [facility] Branch acetaminoph Yes 1 tablet Un lesly en 325 mg 8-18 as needed ity o f tablet 02:42: [facility] Branch acetaminoph Yes 1 tablet Un lesly en 325 mg 8-18 as needed ity o f tablet 02:42: [facility] Branch acetaminoph Yes 1 tablet Un lesly en 325 mg 8-18 as needed ity o f tablet 02:42: [facility] Branch acetaminoph Yes 1 tablet Un lesly en 325 mg 8-18 as needed ity o f tablet 02:42: [facility] Branch acetaminoph 0 Yes 1 tablet Un lesly en 325 mg 8-18 as needed ity o f tablet 02:42: [facility] Branch acetaminoph 0 Yes 1 tablet Un lesly en 325 mg 8-18 as needed ity o f tablet 02:42: [facility] Branch clopidogreL 2021-0 2021- No 1 tablet U nivers 75 mg 8-18 08-15 ity of tablet 02:42: 00:00 [place] 00 :00 Medical Branch neomycin-po 2021-2021- No [id number] 3[drp] Place 3 Univers lymyxin-hyd 8-18 08-26 Drops in ity of rocortisone 00:00: 04:59 both ears [place] otic 00 :00 4 (four) Medical solution times Branch daily for 7 days. neomycin-po 2021-0 2021- No [id number] 3[drp] Place 3 Univers lymyxin-hyd 8-18 08-26 Drops in ity of rocortisone 00:00: 04:59 both ears [place] otic 00 :00 4 (four) Medical solution times Branch daily for 7 days. aspirin 81 2022- No [id number] 81mg Take 1 [facility] mg chewable 8-16 08-12 tablet by it y of tablet 00:00: 04:59 mouth in [place] 00 :00 the [facility] morning [place] for 360 days. aspirin 81 2022- No [id number] 81mg Take 1 [facility] mg chewable 8-16 08-12 tablet by it y of tablet 00:00: 04:59 mouth in [place] 00 :[address] the [facility] for 360 days. aspirin 81 2022- No [id number] 81mg Take 1 Univers mg chewable 8-16 08-12 tablet by it y of tablet 00:00: 04:59 mouth in [place] 00 :[address] [facility] for 360 days. aspirin 81 2022- No [id number] 81mg Take 1 [facility] mg chewable 8-16 08-12 tablet by it y of tablet 00:00: 04:59 mouth in [place] 00 :[address] [facility] for 360 days. aspirin 81 2021-0 2022- No [id number] 81mg Take 1 [facility] mg chewable 8-16 08-12 tablet by it y of tablet 00:00: 04:59 mouth in [place] 00 :[address] [facility] for 360 days. aspirin 81 0 2022- No [id number] 81mg Take 1 [facility] mg chewable 8-16 08-12 tablet by it y of tablet 00:00: 04:59 mouth in [place] 00 :[address] [facility] for 360 days. aspirin 81 2021-2022- No [id number] 81mg Take 1 [facility] mg chewable 8-16 08-12 tablet by it y of tablet 00:00: 04:59 mouth in [place] 00 :00 the Medical morning Branch for 360 days. aspirin 81 2021-0 2022- No [id number] 81mg Take 1 [facility] mg chewable 8-16 08-12 tablet by it y of tablet 00:00: 04:59 mouth in [place] 00 :00 the [facility] morning Branch for 360 days. aspirin 81 2021-2022- No [id number] 81mg Take 1 [facility] mg chewable 8-16 08-12 tablet by it y of tablet 00:00: 04:59 mouth in [place] 00 :00 the [facility] morning Branch for 360 days. aspirin 81 2021-2022- No [id number] 81mg Take 1 [facility] mg chewable 8-16 08-12 tablet by it y of tablet 00:00: 04:59 mouth in [place] 00 :00 the [facility] morning [place] for 360 days. aspirin 81 2021-2022- No [id number] 81mg Take 1 [facility] mg chewable 8-16 08-12 tablet by it y of tablet 00:00: 04:59 mouth in [place] 00 :[address] [facility] for 360 days. aspirin 81 2021-2022- No [id number] 81mg Take 1 [facility] mg chewable 8-16 08-12 tablet by it y of tablet 00:00: 04:59 mouth in [place] 00 :[address] [facility] for 360 days. aspirin 81 2021-0 3- No [id number] 81mg Take 1 [facility] mg chewable 8-16 08-12 tablet by it y of tablet 00:00: 04:59 mouth in [place] 00 :[address] [facility] for 360 days. aspirin 81 2021-0 3- No [id number] 81mg Take 1 Univers mg chewable 8-16 08-12 tablet by it y of tablet 00:00: 04:59 mouth in [place] 00 :[address] [facility] for 360 days. aspirin 81 2021-0 3- No [id number] 81mg Take 1 [facility] mg chewable 8-16 08-12 tablet by it y of tablet 00:00: 04:59 mouth in [place] 00 :[address] [facility] for 360 days. aspirin 81 2021-2022- No [id number] 81mg Take 1 [facility] mg chewable 8-16 08-12 tablet by it y of tablet 00:00: 04:59 mouth in [place] 00 :00 the Medical morning Branch for 360 days. aspirin 81 2021-2022- No [id number] 81mg Take 1 [facility] mg chewable 8-16 08-12 tablet by it y of tablet 00:00: 04:59 mouth in [place] 00 :00 the Medical morning Branch for 360 days. aspirin 81 2021-0 3- No [id number] 81mg Take 1 [facility] mg chewable 8-16 08-12 tablet by it y of tablet 00:00: 04:59 mouth in [place] 00 :00 the Medical morning Branch for 360 days. aspirin 81 2021-3- No [id number] 81mg Take 1 [facility] mg chewable 8-16 08-12 tablet by it y of tablet 00:00: 04:59 mouth in [place] 00 :00 the [facility] morning Branch for 360 days. aspirin 81 2021-2022- No [id number] 81mg Take 1 [facility] mg chewable 8-16 08-12 tablet by it y of tablet 00:00: 04:59 mouth in [place] 00 :00 the [facility] Branch for 360 days. aspirin 81 2021-3- No [id number] 81mg Take 1 [facility] mg chewable 8-16 08-12 tablet by it y of tablet 00:00: 04:59 mouth in [place] 00 :00 the [facility] morning Branch for 360 days. aspirin 81 2021-2022- No [id number] 81mg Take 1 [facility] mg chewable 8-16 08-12 tablet by it y of tablet 00:00: 04:59 mouth in [place] 00 :00 the [facility] Branch for 360 days. apixaban 2021-0 2- No 1358 5mg Take 1 Univer s (ELIQUIS) 5 8-16 11-15 tablet by it y of mg tablet 00:00: 05:59 mouth in [place] 00 :00 the Medical morning Branch and 1 tablet in the evening. Do all this for 90 days. Indication s: atrial fibrillati on apixaban 2021-0 2- No 1358 5mg Take 1 Univer s (ELIQUIS) 5 8-16 11-15 tablet by it y of mg tablet 00:00: 05:59 mouth in [place] 00 :00 the Medical morning Branch and 1 tablet in the evening. Do all this for 90 days. Indication s: atrial fibrillati on apixaban 2022-0 2022- No 1358 5mg Take 1 Univer s (ELIQUIS) 5 8-16 11-15 tablet by it y of mg tablet 00:00: 05:59 mouth in [place] 00 :00 the Medical morning Branch and 1 tablet in the evening. Do all this for 90 days. Indication s: atrial fibrillati on apixaban 2-0 2022- No 1358 5mg Take 1 Univer s (ELIQUIS) 5 8-16 11-15 tablet by it y of mg tablet 00:00: 05:59 mouth in [place] 00 :00 the Medical morning Branch and 1 tablet in the evening. Do all this for 90 days. Indication s: atrial fibrillati on apixaban 2-0 2- No 1358 5mg Take 1 Univer s (ELIQUIS) 5 8-16 11-15 tablet by it y of mg tablet 00:00: 05:59 mouth in [place] 00 :00 the Medical morning Branch and 1 tablet in the evening. Do all this for 90 days. Indication s: atrial fibrillati on apixaban 2-0 2022- No 1358 5mg Take 1 Univer s (ELIQUIS) 5 8-16 11-15 tablet by it y of mg tablet 00:00: 05:59 mouth in [place] 00 :00 the Medical morning Branch and 1 tablet in the evening. Do all this for 90 days. Indication s: atrial fibrillati on apixaban 2-0 2022- No 1358 5mg Take 1 Univer s (ELIQUIS) 5 8-16 11-15 tablet by it y of mg tablet 00:00: 05:59 mouth in [place] 00 :00 the Medical morning Branch and 1 tablet in the evening. Do all this for 90 days. Indication s: atrial fibrillati on apixaban 2-0 2022- No 1358 5mg Take 1 Univer s (ELIQUIS) 5 8-16 11-15 tablet by it y of mg tablet 00:00: 05:59 mouth in [place] 00 :00 the Medical morning Branch and 1 tablet in the evening. Do all this for 90 days. Indication s: atrial fibrillati on apixaban 2022-0 2022- No 1358 5mg Take 1 Univer s (ELIQUIS) 5 8-16 11-15 tablet by it y of mg tablet 00:00: 05:59 mouth in [place] 00 :00 the Medical morning Branch and 1 tablet in the evening. Do all this for 90 days. Indication s: atrial fibrillati on apixaban 2022-0 2022- No 1358 5mg Take 1 Univer s (ELIQUIS) 5 8-16 11-15 tablet by it y of mg tablet 00:00: 05:59 mouth in [place] 00 :00 the Medical morning Branch and 1 tablet in the evening. Do all this for 90 days. Indication s: atrial fibrillati on apixaban 2-0 2022- No 1358 5mg Take 1 Univer s (ELIQUIS) 5 8-16 11-15 tablet by it y of mg tablet 00:00: 05:59 mouth in [place] 00 :00 the Medical morning Branch and 1 tablet in the evening. Do all this for 90 days. Indication s: atrial fibrillati on apixaban 2-0 2022- No 1358 5mg Take 1 Univer s (ELIQUIS) 5 8-16 11-15 tablet by it y of mg tablet 00:00: 05:59 mouth in [place] 00 :00 the Medical morning Branch and 1 tablet in the evening. Do all this for 90 days. Indication s: atrial fibrillati on apixaban 2-0 2022- No 1358 5mg Take 1 Univer s (ELIQUIS) 5 8-16 11-15 tablet by it y of mg tablet 00:00: 05:59 mouth in [place] 00 :00 the Medical morning Branch and 1 tablet in the evening. Do all this for 90 days. Indication s: atrial fibrillati on apixaban 2022-0 2022- No 1358 5mg Take 1 Univer s (ELIQUIS) 5 8-16 11-15 tablet by it y of mg tablet 00:00: 05:59 mouth in [place] 00 :00 the Medical morning Branch and 1 tablet in the evening. Do all this for 90 days. Indication s: atrial fibrillati on apixaban 2022-0 2022- No 1358 5mg Take 1 Univer s (ELIQUIS) 5 8-16 11-15 tablet by it y of mg tablet 00:00: 05:59 mouth in [place] 00 :00 the Medical morning Branch and 1 tablet in the evening. Do all this for 90 days. Indication s: atrial fibrillati on apixaban 2022-0 2022- No 1358 5mg Take 1 Univer s (ELIQUIS) 5 8-16 11-15 tablet by it y of mg tablet 00:00: 05:59 mouth in [place] 00 :00 the Medical morning Branch and 1 tablet in the evening. Do all this for 90 days. Indication s: atrial fibrillati on apixaban 2022-0 2022- No 1358 5mg Take 1 Univer s (ELIQUIS) 5 8-16 11-15 tablet by it y of mg tablet 00:00: 05:59 mouth in [place] 00 :00 the Medical morning Branch and 1 tablet in the evening. Do all this for 90 days. Indication s: atrial fibrillati on apixaban 2-0 2022- No 1358 5mg Take 1 Univer s (ELIQUIS) 5 8-16 11-15 tablet by it y of mg tablet 00:00: 05:59 mouth in [place] 00 :00 the Medical morning Branch and 1 tablet in the evening. Do all this for 90 days. Indication s: atrial fibrillati on apixaban 2-0 2022- No 1358 5mg Take 1 Univer s (ELIQUIS) 5 8-16 11-15 tablet by it y of mg tablet 00:00: 05:59 mouth in [place] 00 :00 the Medical morning Branch and 1 tablet in the evening. Do all this for 90 days. Indication s: atrial fibrillati on apixaban 2022-0 2022- No 1358 5mg Take 1 Univer s (ELIQUIS) 5 8-16 11-15 tablet by it y of mg tablet 00:00: 05:59 mouth in [place] 00 :00 the Medical morning Branch and 1 tablet in the evening. Do all this for 90 days. Indication s: atrial fibrillati on apixaban 2022-0 2022- No 1358 5mg Take 1 [facility] (ELIQUIS) 5 8-16 11-15 tablet by [facility] y of mg tablet 00:00: 05:59 mouth in [place] as 00 :00 the Medical morning Branch and 1 tablet in the evening. Do all this for 90 days. Indication s: atrial fibrillati on apixaban 2021- No 1358 5mg Take 1 [facility] (ELIQUIS) 5 8-16 11-15 tablet by it y of mg tablet 00:00: 05:59 mouth in [place] as 00 :00 the Medical morning Branch and 1 tablet in the evening. Do all this for 90 days. Indication s: atrial fibrillati on apixaban 2021- No 1358 5mg Take 1 [facility] (ELIQUIS) 5 8-16 10-06 tablet by it y of mg tablet 00:00: 00:00 mouth in [place] as 00 :00 the Medical morning Branch and 1 tablet in the evening. Do all this for 90 days. Indication s: atrial fibrillati on aspirin 81 2021- No [id number] 81mg Take 1 [facility] mg chewable 8-16 10-06 tablet by it y of tablet 00:00: 00:00 mouth in [place] 00 :00 the Medical morning Branch for 360 days. ALLERGY 2021-0 Yes [id number] Take 1 [facility] RELIEF, 8-11 tablet by ity of CETIRIZINE, 00:00: mouth once [place] 10 mg 00 daily Medical tablet Branch ALLERGY 2021-0 Yes [id number] Take 1 [facility] RELIEF, 8-11 tablet by ity of CETIRIZINE, 00:00: mouth once [place] 10 mg 00 daily Medical tablet Branch ALLERGY 2021-0 Yes [id number] Take 1 [facility] RELIEF, 8-11 tablet by ity of CETIRIZINE, 00:00: mouth once [place] 10 mg 00 daily Medical tablet Branch ALLERGY 2021-0 Yes [id number] Take 1 [facility] RELIEF, 8-11 tablet by ity of CETIRIZINE, 00:00: mouth once [place] 10 mg 00 daily Medical tablet Branch ALLERGY 2-0 Yes [id number] Take 1 [facility] RELIEF, 8-11 tablet by ity of CETIRIZINE, 00:00: mouth once [place] 10 mg 00 daily Medical tablet Branch ALLERGY 2-0 Yes [id number] Take 1 [facility] RELIEF, 8-11 tablet by ity of CETIRIZINE, 00:00: mouth once [place] 10 mg 00 daily Medical tablet Branch ALLERGY 2022-0 Yes [id number] Take 1 [facility] RELIEF, 8-11 tablet by ity of CETIRIZINE, 00:00: mouth once [place] 10 mg 00 daily Medical tablet Branch ALLERGY 2022-0 Yes [id number] Take 1 [facility] RELIEF, 8-11 tablet by ity of CETIRIZINE, 00:00: mouth once [place] 10 mg 00 daily Medical tablet Branch ALLERGY 2-0 Yes [id number] Take 1 [facility] RELIEF, 8-11 tablet by ity of CETIRIZINE, 00:00: mouth once [place] 10 mg 00 daily Medical tablet Branch ALLERGY 2021-0 Yes [id number] Take 1 [facility] RELIEF, 8-11 tablet by ity of CETIRIZINE, 00:00: mouth once [place] 10 mg 00 daily Medical tablet Branch ALLERGY 2021-0 Yes [id number] Take 1 [facility] RELIEF, 8-11 tablet by ity of CETIRIZINE, 00:00: mouth once [place] 10 mg 00 daily Medical tablet Branch ALLERGY 2021-0 Yes [id number] Take 1 [facility] RELIEF, 8-11 tablet by ity of CETIRIZINE, 00:00: mouth once [place] 10 mg 00 daily Medical tablet Branch ALLERGY 2021-0 Yes [id number] Take 1 [facility] RELIEF, 8-11 tablet by ity of CETIRIZINE, 00:00: mouth once [place] 10 mg 00 daily Medical tablet Branch ALLERGY 2021-0 Yes [id number] Take 1 [facility] RELIEF, 8-11 tablet by ity of CETIRIZINE, 00:00: mouth once [place] 10 mg 00 daily Medical tablet Branch ALLERGY 2-0 Yes [id number] Take 1 [facility] RELIEF, 8-11 tablet by ity of CETIRIZINE, 00:00: mouth once [place] 10 mg 00 daily Medical tablet Branch ALLERGY 2022-0 Yes [id number] Take 1 [facility] RELIEF, 8-11 tablet by ity of CETIRIZINE, 00:00: mouth once [place] 10 mg 00 daily Medical tablet Branch ALLERGY 2-0 Yes [id number] Take 1 [facility] RELIEF, 8-11 tablet by ity of CETIRIZINE, 00:00: mouth once [place] 10 mg 00 daily Medical tablet Branch ALLERGY 2-0 Yes [id number] Take 1 [facility] RELIEF, 8-11 tablet by ity of CETIRIZINE, 00:00: mouth once [place] 10 mg 00 daily Medical tablet Branch ALLERGY 2022-0 Yes [id number] Take 1 [facility] RELIEF, 8-11 tablet by ity of CETIRIZINE, 00:00: mouth once [place] 10 mg 00 daily Medical tablet Branch ALLERGY 2022-0 Yes [id number] Take 1 [facility] RELIEF, 8-11 tablet by ity of CETIRIZINE, 00:00: mouth once [place] 10 mg 00 daily Medical tablet Branch ALLERGY 2022-0 Yes [id number] Take 1 [facility] RELIEF, 8-11 tablet by ity of CETIRIZINE, 00:00: mouth once [place] 10 mg 00 daily Medical tablet Branch ALLERGY 2022-0 Yes [id number] Take 1 [facility] RELIEF, 8-11 tablet by ity of CETIRIZINE, 00:00: mouth once [place] 10 mg 00 daily Medical tablet Branch ALLERGY 2021-0 Yes [id number] Take 1 [facility] RELIEF, 8-11 tablet by ity of CETIRIZINE, 00:00: mouth once [place] 10 mg 00 daily Medical tablet Branch ALLERGY 2022-0 Yes [id number] Take 1 [facility] RELIEF, 8-11 tablet by ity of CETIRIZINE, 00:00: mouth once [place] 10 mg 00 daily Medical tablet Branch ALLERGY 2-0 Yes [id number] Take 1 [facility] RELIEF, 8-11 tablet by ity of CETIRIZINE, 00:00: mouth once [place] 10 mg 00 daily Medical tablet Branch ALLERGY 2-0 Yes [id number] Take 1 [facility] RELIEF, 8-11 tablet by ity of CETIRIZINE, 00:00: mouth once [place] 10 mg 00 daily Medical tablet Branch ALLERGY 2022-0 Yes [id number] Take 1 [facility] RELIEF, 8-11 tablet by ity of CETIRIZINE, 00:00: mouth once [place] 10 mg 00 daily Medical tablet Branch ALLERGY 2022-0 Yes [id number] Take 1 [facility] RELIEF, 8-11 tablet by ity of CETIRIZINE, 00:00: mouth once [place] 10 mg 00 daily Medical tablet Branch ALLERGY 2022-0 Yes [id number] Take 1 [facility] RELIEF, 8-11 tablet by ity of CETIRIZINE, 00:00: mouth once [place] 10 mg 00 daily Medical tablet Branch ALLERGY 2022-0 Yes [id number] Take 1 [facility] RELIEF, 8-11 tablet by ity of CETIRIZINE, 00:00: mouth once [place] 10 mg 00 daily Medical tablet Branch ALLERGY 2022-0 Yes [id number] Take 1 [facility] RELIEF, 8-11 tablet by ity of CETIRIZINE, 00:00: mouth once [place] 10 mg 00 daily Medical tablet Branch ALLERGY 2-0 Yes [id number] Take 1 [facility] RELIEF, 8-11 tablet by ity of CETIRIZINE, 00:00: mouth once [place] 10 mg 00 daily Medical tablet Branch ALLERGY 2-0 Yes [id number] Take 1 [facility] RELIEF, 8-11 tablet by ity of CETIRIZINE, 00:00: mouth once [place] 10 mg 00 daily Medical tablet Branch ALLERGY 2021-0 Yes [id number] Take 1 [facility] RELIEF, 8-11 tablet by ity of CETIRIZINE, 00:00: mouth once [place] 10 mg 00 daily Medical tablet Branch ALLERGY 2021-0 Yes [id number] Take 1 [facility] RELIEF, 8-11 tablet by ity of CETIRIZINE, 00:00: mouth once [place] 10 mg 00 daily Medical tablet Branch ALLERGY 2021-0 Yes [id number] Take 1 [facility] RELIEF, 8-11 tablet by ity of CETIRIZINE, 00:00: mouth once [place] 10 mg 00 daily Medical tablet Branch ALLERGY 2021-0 Yes [id number] Take 1 [facility] RELIEF, 8-11 tablet by ity of CETIRIZINE, 00:00: mouth once [place] 10 mg 00 daily Medical tablet Branch ALLERGY 2-0 Yes [id number] Take 1 [facility] RELIEF, 8-11 tablet by ity of CETIRIZINE, 00:00: mouth once [place] 10 mg 00 daily Medical tablet Branch ALLERGY 2-0 Yes [id number] Take 1 [facility] RELIEF, 8-11 tablet by ity of CETIRIZINE, 00:00: mouth once [place] 10 mg 00 daily Medical tablet Branch ALLERGY 2-0 Yes [id number] Take 1 [facility] RELIEF, 8-11 tablet by ity of CETIRIZINE, 00:00: mouth once [place] 10 mg 00 daily Medical tablet Branch ALLERGY 2-0 Yes [id number] Take 1 [facility] RELIEF, 8-11 tablet by ity of CETIRIZINE, 00:00: mouth once [place] 10 mg 00 daily Medical tablet Branch ALLERGY 2022-0 Yes [id number] Take 1 [facility] RELIEF, 8-11 tablet by ity of CETIRIZINE, 00:00: mouth once [place] 10 mg 00 daily Medical tablet Branch ALLERGY 2022-0 Yes [id number] Take 1 [facility] RELIEF, 8-11 tablet by ity of CETIRIZINE, 00:00: mouth once [place] 10 mg 00 daily Medical tablet Branch ALLERGY 2-0 Yes [id number] Take 1 [facility] RELIEF, 8-11 tablet by ity of CETIRIZINE, 00:00: mouth once [place] 10 mg 00 daily Medical tablet Branch ALLERGY 2-0 Yes [id number] Take 1 [facility] RELIEF, 8-11 tablet by ity of CETIRIZINE, 00:00: mouth once [place] 10 mg 00 daily Medical tablet Branch ALLERGY 2-0 Yes [id number] Take 1 [facility] RELIEF, 8-11 tablet by ity of CETIRIZINE, 00:00: mouth once [place] 10 mg 00 daily Medical tablet Branch ALLERGY 2-0 Yes [id number] Take 1 [facility] RELIEF, 8-11 tablet by ity of CETIRIZINE, 00:00: mouth once [place] 10 mg 00 daily Medical tablet Branch ALLERGY 2021-0 Yes [id number] Take 1 [facility] RELIEF, 8-11 tablet by ity of CETIRIZINE, 00:00: mouth once [place] 10 mg 00 daily Medical tablet Branch ALLERGY 2-0 Yes [id number] Take 1 [facility] RELIEF, 8-11 tablet by ity of CETIRIZINE, 00:00: mouth once [place] 10 mg 00 daily Medical tablet Branch ALLERGY 2-0 Yes [id number] Take 1 [facility] RELIEF, 8-11 tablet by ity of CETIRIZINE, 00:00: mouth once [place] 10 mg 00 daily Medical tablet Branch ALLERGY 2-0 Yes [id number] Take 1 [facility] RELIEF, 8-11 tablet by ity of CETIRIZINE, 00:00: mouth once [place] 10 mg 00 daily Medical tablet Branch ALLERGY 2022-0 2- No [id number] Take 1 [facility] RELIEF, 8-11 10-25 tablet by ity of CETIRIZINE, 00:00: 00:00 mouth once [place] 10 mg 00 :00 daily Medical tablet Branch ALLERGY 2022-0 2- No [id number] Take 1 [facility] RELIEF, 8-11 10-25 tablet by ity of CETIRIZINE, 00:00: 00:00 mouth once [place] 10 mg 00 :00 daily Medical tablet Branch ALLERGY 2021- No [id number] Take 1 [facility] RELIEF, 8-11 10-25 tablet by ity of CETIRIZINE, 00:00: 00:00 mouth once [place] 10 mg 00 :00 daily Medical tablet Branch ALLERGY 2021-0 2- No [id number] Take 1 [facility] RELIEF, 8-11 10-25 tablet by ity of CETIRIZINE, 00:00: 00:00 mouth once [place] 10 mg 00 :00 daily Medical tablet Branch ALLERGY 2021-0 2021- No [id number] Take 1 [facility] RELIEF, 8-11 10-25 tablet by ity of CETIRIZINE, 00:00: 00:00 mouth once [place] 10 mg 00 :00 daily Medical tablet Branch busPIRone 5 Yes [id number] 5mg Take 1 [facility] mg tablet 8-10 tablet by ity o f 00:00: mouth (two) Medical times Branch daily as needed (anxiousne ss/stress) . busPIRone Yes [id number] 5mg Take 1 [facility] mg tablet 8-10 tablet by ity o f 00:00: mouth (two) Medical times Branch daily as needed (anxiousne ss/stress) . busPIRone 5 0 Yes [id number] 5mg Take 1 [facility] mg tablet 8-10 tablet by ity o f 00:00: mouth (two) Medical times Branch daily as needed (anxiousne ss/stress) . busPIRone 5 0 Yes [id number] 5mg Take 1 [facility] mg tablet 8-10 tablet by ity o f 00:00: mouth (two) Medical times Branch daily as needed (anxiousne ss/stress) . busPIRone 5 0 Yes [id number] 5mg Take 1 [facility] mg tablet 8-10 tablet by ity o f 00:00: mouth (two) Medical times Branch daily as needed (anxiousne ss/stress) . busPIRone 5 2021-0 Yes [id number] 5mg Take 1 [facility] mg tablet 8-10 tablet by ity o f 00:00: mouth (two) Medical times Branch daily as needed (anxiousne ss/stress) . busPIRone 5 2021-0 Yes [id number] 5mg Take 1 [facility] mg tablet 8-10 tablet by ity o f 00:00: mouth (two) Medical times Branch daily as needed (anxiousne ss/stress) . busPIRone 5 2021-0 Yes [id number] 5mg Take 1 [facility] mg tablet 8-10 tablet by ity o f 00:00: mouth (two) Medical times Branch daily as needed (anxiousne ss/stress) . busPIRone 5 2021-0 Yes [id number] 5mg Take 1 [facility] mg tablet 8-10 tablet by ity o f 00:00: mouth (two) Medical times Branch daily as needed (anxiousne ss/stress) . busPIRone 5 2021-0 Yes [id number] 5mg Take 1 [facility] mg tablet 8-10 tablet by ity o f 00:00: mouth (two) Medical times Branch daily as needed (anxiousne ss/stress) . busPIRone 5 2021-0 Yes [id number] 5mg Take 1 [facility] mg tablet 8-10 tablet by ity o f 00:00: mouth (two) Medical times Branch daily as needed (anxiousne ss/stress) . busPIRone 5 2021-0 Yes [id number] 5mg Take 1 [facility] mg tablet 8-10 tablet by ity o f 00:00: mouth (two) Medical times Branch daily as needed (anxiousne ss/stress) . busPIRone 5 2021-0 Yes [id number] 5mg Take 1 [facility] mg tablet 8-10 tablet by ity o f 00:00: mouth (two) Medical times Branch daily as needed (anxiousne ss/stress) . busPIRone 5 2021-0 Yes [id number] 5mg Take 1 [facility] mg tablet 8-10 tablet by ity o f 00:00: mouth (two) Medical times Branch daily as needed (anxiousne ss/stress) . busPIRone 5 2021-0 Yes [id number] 5mg Take 1 [facility] mg tablet 8-10 tablet by ity o f 00:00: mouth (two) Medical times Branch daily as needed (anxiousne ss/stress) . busPIRone 5 2021-0 Yes [id number] 5mg Take 1 [facility] mg tablet 8-10 tablet by ity o f 00:00: mouth (two) Medical times Branch daily as needed (anxiousne ss/stress) . busPIRone 5 2021-0 Yes [id number] 5mg Take 1 [facility] mg tablet 8-10 tablet by ity o f 00:00: mouth (two) Medical times Branch daily as needed (anxiousne ss/stress) . busPIRone 5 2021-0 Yes [id number] 5mg Take 1 [facility] mg tablet 8-10 tablet by ity o f 00:00: mouth (two) Medical times Branch daily as needed (anxiousne ss/stress) . busPIRone 5 2021-0 Yes [id number] 5mg Take 1 [facility] mg tablet 8-10 tablet by ity o f 00:00: mouth (two) Medical times Branch daily as needed (anxiousne ss/stress) . busPIRone 5 2021-0 Yes [id number] 5mg Take 1 [facility] mg tablet 8-10 tablet by ity o f 00:00: mouth (two) Medical times Branch daily as needed (anxiousne ss/stress) . busPIRone 5 2021-0 Yes [id number] 5mg Take 1 [facility] mg tablet 8-10 tablet by ity o f 00:00: mouth (two) Medical times Branch daily as needed (anxiousne ss/stress) . busPIRone 5 2021-0 Yes [id number] 5mg Take 1 [facility] mg tablet 8-10 tablet by ity o f 00:00: mouth (two) Medical times Branch daily as needed (anxiousne ss/stress) . busPIRone 5 2021-0 Yes [id number] 5mg Take 1 [facility] mg tablet 8-10 tablet by ity o f 00:00: mouth (two) Medical times Branch daily as needed (anxiousne ss/stress) . busPIRone 5 2021-0 Yes [id number] 5mg Take 1 [facility] mg tablet 8-10 tablet by ity o f 00:00: mouth (two) Medical times Branch daily as needed (anxiousne ss/stress) . busPIRone 5 2021-0 Yes [id number] 5mg Take 1 [facility] mg tablet 8-10 tablet by ity o f 00:00: mouth (two) Medical times Branch daily as needed (anxiousne ss/stress) . busPIRone 5 2021-0 Yes [id number] 5mg Take 1 [facility] mg tablet 8-10 tablet by ity o f 00:00: mouth (two) Medical times Branch daily as needed (anxiousne ss/stress) . busPIRone 5 2021-0 Yes [id number] 5mg Take 1 [facility] mg tablet 8-10 tablet by ity o f 00:00: mouth (two) Medical times Branch daily as needed (anxiousne ss/stress) . busPIRone 5 2021-0 Yes [id number] 5mg Take 1 [facility] mg tablet 8-10 tablet by ity o f 00:00: mouth (two) Medical times Branch daily as needed (anxiousne ss/stress) . busPIRone 5 2021-0 Yes [id number] 5mg Take 1 [facility] mg tablet 8-10 tablet by ity o f 00:00: mouth (two) Medical times Branch daily as needed (anxiousne ss/stress) . busPIRone 5 2021-0 Yes [id number] 5mg Take 1 [facility] mg tablet 8-10 tablet by ity o f 00:00: mouth (two) Medical times Branch daily as needed (anxiousne ss/stress) . busPIRone 5 2021-0 Yes [id number] 5mg Take 1 [facility] mg tablet 8-10 tablet by ity o f 00:00: mouth (two) Medical times Branch daily as needed (anxiousne ss/stress) . busPIRone 5 2021-0 Yes [id number] 5mg Take 1 [facility] mg tablet 8-10 tablet by ity o f 00:00: mouth (two) Medical times Branch daily as needed (anxiousne ss/stress) . busPIRone 5 2021-0 Yes [id number] 5mg Take 1 [facility] mg tablet 8-10 tablet by ity o f 00:00: mouth (two) Medical times Branch daily as needed (anxiousne ss/stress) . busPIRone 5 2021-0 Yes [id number] 5mg Take 1 [facility] mg tablet 8-10 tablet by ity o f 00:00: mouth (two) Medical times Branch daily as needed (anxiousne ss/stress) . busPIRone 5 2021-0 Yes [id number] 5mg Take 1 [facility] mg tablet 8-10 tablet by ity o f 00:00: mouth (two) Medical times Branch daily as needed (anxiousne ss/stress) . busPIRone 5 2021-0 Yes [id number] 5mg Take 1 [facility] mg tablet 8-10 tablet by ity o f 00:00: mouth (two) Medical times Branch daily as needed (anxiousne ss/stress) . busPIRone 5 2021-0 Yes [id number] 5mg Take 1 [facility] mg tablet 8-10 tablet by ity o f 00:00: mouth (two) Medical times Branch daily as needed (anxiousne ss/stress) . busPIRone 5 2021-0 Yes [id number] 5mg Take 1 [facility] mg tablet 8-10 tablet by ity o f 00:00: mouth (two) Medical times Branch daily as needed (anxiousne ss/stress) . busPIRone 5 2021-0 Yes [id number] 5mg Take 1 [facility] mg tablet 8-10 tablet by ity o f 00:00: mouth (two) Medical times Branch daily as needed (anxiousne ss/stress) . busPIRone 5 2021-0 Yes [id number] 5mg Take 1 [facility] mg tablet 8-10 tablet by ity o f 00:00: mouth (two) Medical times Branch daily as needed (anxiousne ss/stress) . busPIRone 5 2021-0 Yes [id number] 5mg Take 1 [facility] mg tablet 8-10 tablet by ity o f 00:00: mouth (two) Medical times Branch daily as needed (anxiousne ss/stress) . busPIRone 5 2021-0 Yes [id number] 5mg Take 1 [facility] mg tablet 8-10 tablet by ity o f 00:00: mouth (two) Medical times Branch daily as needed (anxiousne ss/stress) . busPIRone 5 2021-0 Yes [id number] 5mg Take 1 [facility] mg tablet 8-10 tablet by ity o f 00:00: mouth (two) Medical times Branch daily as needed (anxiousne ss/stress) . busPIRone 5 2021-0 Yes [id number] 5mg Take 1 [facility] mg tablet 8-10 tablet by ity o f 00:00: mouth (two) Medical times Branch daily as needed (anxiousne ss/stress) . busPIRone 5 2021-0 Yes [id number] 5mg Take 1 [facility] mg tablet 8-10 tablet by ity o f 00:00: mouth (two) Medical times Branch daily as needed (anxiousne ss/stress) . busPIRone 5 2021-0 Yes [id number] 5mg Take 1 [facility] mg tablet 8-10 tablet by ity o f 00:00: mouth (two) Medical times Branch daily as needed (anxiousne ss/stress) . busPIRone 5 2021-0 Yes [id number] 5mg Take 1 [facility] mg tablet 8-10 tablet by ity o f 00:00: mouth (two) Medical times Branch daily as needed (anxiousne ss/stress) . busPIRone 5 2021-0 Yes [id number] 5mg Take 1 [facility] mg tablet 8-10 tablet by ity o f 00:00: mouth (two) Medical times Branch daily as needed (anxiousne ss/stress) . busPIRone 5 2021-0 Yes [id number] 5mg Take 1 [facility] mg tablet 8-10 tablet by ity o f 00:00: mouth (two) Medical times Branch daily as needed (anxiousne ss/stress) . busPIRone 5 2021-0 Yes [id number] 5mg Take 1 [facility] mg tablet 8-10 tablet by ity o f 00:00: mouth (two) Medical times Branch daily as needed (anxiousne ss/stress) . busPIRone 5 2021-0 Yes [id number] 5mg Take 1 [facility] mg tablet 8-10 tablet by ity o f 00:00: mouth (two) Medical times Branch daily as needed (anxiousne ss/stress) . busPIRone 5 2021-0 Yes [id number] 5mg Take 1 [facility] mg tablet 8-10 tablet by ity o f 00:00: mouth (two) Medical times Branch daily as needed (anxiousne ss/stress) . busPIRone 5 2021-0 Yes [id number] 5mg Take 1 [facility] mg tablet 8-10 tablet by ity o f 00:00: mouth (two) Medical times Branch daily as needed (anxiousne ss/stress) . busPIRone 5 2021-0 Yes [id number] 5mg Take 1 [facility] mg tablet 8-10 tablet by ity o f 00:00: mouth (two) Medical times Branch daily as needed (anxiousne ss/stress) . busPIRone 5 2021-0 Yes [id number] 5mg Take 1 [facility] mg tablet 8-10 tablet by ity o f 00:00: mouth (two) Medical times Branch daily as needed (anxiousne ss/stress) . busPIRone 5 2021-0 Yes [id number] 5mg Take 1 [facility] mg tablet 8-10 tablet by ity o f 00:00: mouth (two) Medical times Branch daily as needed (anxiousne ss/stress) . busPIRone 5 2021-0 Yes [id number] 5mg Take 1 [facility] mg tablet 8-10 tablet by ity o f 00:00: mouth (two) Medical times Branch daily as needed (anxiousne ss/stress) . busPIRone 5 2021-0 Yes [id number] 5mg Take 1 [facility] mg tablet 8-10 tablet by ity o f 00:00: mouth (two) Medical times Branch daily as needed (anxiousne ss/stress) . busPIRone 5 2021-0 Yes [id number] 5mg Take 1 [facility] mg tablet 8-10 tablet by ity o f 00:00: mouth (two) Medical times Branch daily as needed (anxiousne ss/stress) . busPIRone 5 2021-0 Yes [id number] 5mg Take 1 [facility] mg tablet 8-10 tablet by ity o f 00:00: mouth (two) Medical times Branch daily as needed (anxiousne ss/stress) . busPIRone 5 2021-0 Yes [id number] 5mg Take 1 [facility] mg tablet 8-10 tablet by ity o f 00:00: mouth (two) Medical times Branch daily as needed (anxiousne ss/stress) . busPIRone 5 2021-0 Yes [id number] 5mg Take 1 [facility] mg tablet 8-10 tablet by [facility]y o f 00:00: mouth 2 (two) Medical times Branch daily as needed (anxiousne ss/stress) . busPIRone 5 2021-0 Yes [id number] 5mg Take 1 [facility] mg tablet 8-10 tablet by [facility]y o f 00:00: mouth 2 00 (two) Medical times Branch daily as needed (anxiousne ss/stress) . busPIRone 5 2021-0 Yes [id number] 5mg Take 1 [facility] mg tablet 8-10 tablet by ity o f 00:00: mouth 2 (two) Medical times Branch daily as needed (anxiousne ss/stress) . busPIRone 5 2021-0 Yes [id number] 5mg Take 1 [facility] mg tablet 8-10 tablet by ity o f 00:00: mouth 2 (two) Medical times Branch daily as needed (anxiousne ss/stress) . busPIRone 5 2021-0 2- No [id number] 5mg Take 1 [facility] mg tablet 8-10 10-31 tablet by ity of 00:00: 00:00 mouth 2 [place] 00 :00 (two) Medical times Branch daily as needed (anxiousne ss/stress) . busPIRone 5 2021-0 2- No [id number] 5mg Take 1 [facility] mg tablet 8-10 10-31 tablet by ity of 00:00: 00:00 mouth 2 00 :00 (two) Medical times Branch daily as needed (anxiousne ss/stress) . pantoprazol 2021-0 Yes [id number] 40mg Take 1 [facility] e 40 mg EC 8-07 tablet by [facility] of tablet 00:00: mouth in [place] 00 the Medical morning Branch and 1 tablet in the evening. pantoprazol 2021-0 Yes [id number] 40mg Take 1 [facility] e 40 mg EC 8-07 tablet by ity of tablet 00:00: mouth in [place] 00 the Medical morning Branch and 1 tablet in the evening. pantoprazol 2022-0 Yes [id number] 40mg Take 1 [facility] e 40 mg EC 8-07 tablet by [facility] of tablet 00:00: mouth in [place] 00 the Medical morning Branch and 1 tablet in the evening. pantoprazol 2-0 Yes [id number] 40mg Take 1 [facility] e 40 mg EC 8-07 tablet by ity of tablet 00:00: mouth in [place] 00 the Medical morning Branch and 1 tablet in the evening. pantoprazol 2022-0 Yes [id number] 40mg Take 1 [facility] e 40 mg EC 8-07 tablet by ity of tablet 00:00: mouth in [place] [address] the Medical morning Branch and 1 tablet in the evening. pantoprazol 2022-0 Yes [id number] 40mg Take 1 [facility] e 40 mg EC 8-07 tablet by ity of tablet 00:00: mouth in [place] [address] the Medical morning Branch and 1 tablet in the evening. pantoprazol 2022-0 Yes [id number] 40mg Take 1 [facility] e 40 mg EC 8-07 tablet by ity of tablet 00:00: mouth in [place] [address] the Medical morning Branch and 1 tablet in the evening. pantoprazol 2022-0 Yes [id number] 40mg Take 1 [facility] e 40 mg EC 8-07 tablet by ity of tablet 00:00: mouth in [place] [address] the Medical morning Branch and 1 tablet in the evening. pantoprazol 2022-0 Yes [id number] 40mg Take 1 [facility] e 40 mg EC 8-07 tablet by ity of tablet 00:00: mouth in [place] [address] the Medical morning Branch and 1 tablet in the evening. pantoprazol 2022-0 Yes [id number] 40mg Take 1 [facility] e 40 mg EC 8-07 tablet by ity of tablet 00:00: mouth in [place] [address] the Medical morning Branch and 1 tablet in the evening. pantoprazol 2022-0 Yes [id number] 40mg Take 1 [facility] e 40 mg EC 8-07 tablet by ity of tablet 00:00: mouth in [place] [address] the Medical morning Branch and 1 tablet in the evening. pantoprazol 2022-0 Yes [id number] 40mg Take 1 [facility] e 40 mg EC 8-07 tablet by ity of tablet 00:00: mouth in [place] [address] the Medical morning Branch and 1 tablet in the evening. pantoprazol 2022-0 Yes [id number] 40mg Take 1 [facility] e 40 mg EC 8-07 tablet by ity of tablet 00:00: mouth in [place] [address] the [facility] morning Branch and 1 tablet in the evening. pantoprazol 2022-0 Yes [id number] 40mg Take 1 [facility] e 40 mg EC 8-07 tablet by ity of tablet 00:00: mouth in [address] Medical morning Branch and 1 tablet in the evening. pantoprazol 2022-0 Yes [id number] 40mg Take 1 [facility] e 40 mg EC 8-07 tablet by ity of tablet 00:00: mouth in [place] 00 the Medical morning Branch and 1 tablet in the evening. pantoprazol 2022-0 Yes [id number] 40mg Take 1 [facility] e 40 mg EC 8-07 tablet by ity of tablet 00:00: mouth in [place] 00 the Medical morning Branch and 1 tablet in the evening. pantoprazol 2022-0 Yes [id number] 40mg Take 1 [facility] e 40 mg EC 8-07 tablet by ity of tablet 00:00: mouth in [place] 00 the Medical morning Branch and 1 tablet in the evening. pantoprazol 2022-0 Yes [id number] 40mg Take 1 [facility] e 40 mg EC 8-07 tablet by ity of tablet 00:00: mouth in [place] [address] the Medical morning Branch and 1 tablet in the evening. pantoprazol 2-0 Yes [id number] 40mg Take 1 [facility] e 40 mg EC 8-07 tablet by ity of tablet 00:00: mouth in [place] [address] the Medical morning Branch and 1 tablet in the evening. pantoprazol 2-0 Yes [id number] 40mg Take 1 [facility] e 40 mg EC 8-07 tablet by ity of tablet 00:00: mouth in [place] [address] the Medical morning Branch and 1 tablet in the evening. pantoprazol 2-0 Yes [id number] 40mg Take 1 [facility] e 40 mg EC 8-07 tablet by ity of tablet 00:00: mouth in [place] [address] the Medical morning Branch and 1 tablet in the evening. pantoprazol 2022-0 Yes [id number] 40mg Take 1 [facility] EC 8-07 tablet by [facility] tablet 00:00: mouth in [place] [address] the Medical morning Branch and 1 tablet in the evening. pantoprazol 2022-0 Yes [id number] 40mg Take 1 [facility] 40 mg EC 8-07 tablet by [facility] tablet 00:00: mouth in [place] [address] the Medical morning Branch and 1 tablet in the evening. pantoprazol 2022-0 Yes [id number] 40mg Take 1 [facility] 40 mg EC 8-07 tablet by [facility] tablet 00:00: mouth in [place] [address] the Medical morning Branch and 1 tablet in the evening. pantoprazol 2022-0 Yes [id number] 40mg Take 1 [facility] 40 mg EC 8-07 tablet by [facility] tablet 00:00: mouth in [place] 00 the Medical morning Branch and 1 tablet in the evening. pantoprazol 2022-0 Yes [id number] 40mg Take 1 [facility] 40 mg EC 8-07 tablet by [facility] tablet 00:00: mouth in [place] 00 the Medical morning Branch and 1 tablet in the evening. pantoprazol 2022-0 Yes [id number] 40mg Take 1 [facility] 40 mg EC 8-07 tablet by [facility] tablet 00:00: mouth in [place] [address] the Medical morning Branch and 1 tablet in the evening. pantoprazol 2-0 Yes [id number] 40mg Take 1 [facility] 40 mg EC 8-07 tablet by [facility] tablet 00:00: mouth in [place] [address] the Medical morning Branch and 1 tablet in the evening. pantoprazol 2-0 Yes [id number] 40mg Take 1 [facility] 40 mg EC 8-07 tablet by [facility] tablet 00:00: mouth in [place] [address] the Medical morning Branch and 1 tablet in the evening. pantoprazol 2-0 Yes [id number] 40mg Take 1 [facility] 40 mg EC 8-07 tablet by [facility] tablet 00:00: mouth in [place] [address] the Medical morning Branch and 1 tablet in the evening. pantoprazol 2-0 Yes [id number] 40mg Take 1 [facility] 40 mg EC 8-07 tablet by [facility] tablet 00:00: mouth in [place] [address] the Medical morning Branch and 1 tablet in the evening. pantoprazol 2022-0 Yes [id number] 40mg Take 1 [facility] 40 mg EC 8-07 tablet by [facility] tablet 00:00: mouth in [place] [address] the Medical morning Branch and 1 tablet in the evening. pantoprazol 2022-0 Yes [id number] 40mg Take 1 [facility] 40 mg EC 8-07 tablet by [facility] tablet 00:00: mouth in [place] [address] the Medical morning Branch and 1 tablet in the evening. pantoprazol 2022-0 Yes [id number] 40mg Take 1 [facility] 40 mg EC 8-07 tablet by [facility] tablet 00:00: mouth in [place] [address] the Medical morning Branch and 1 tablet in the evening. pantoprazol 2022-0 Yes [id number] 40mg Take 1 [facility] 40 mg EC 8-07 tablet by [facility] tablet 00:00: mouth in [place] 00 the Medical morning Branch and 1 tablet in the evening. pantoprazol 2022-0 Yes [id number] 40mg Take 1 [facility] 40 mg EC 8-07 tablet by [facility] tablet 00:00: mouth in [place] 00 the Medical morning Branch and 1 tablet in the evening. pantoprazol 2022-0 Yes [id number] 40mg Take 1 [facility] 40 mg EC 8-07 tablet by [facility] tablet 00:00: mouth in [place] 00 the Medical morning Branch and 1 tablet in the evening. pantoprazol 2-0 Yes [id number] 40mg Take 1 [facility] 40 mg EC 8-07 tablet by [facility] tablet 00:00: mouth in [place] 00 the Medical morning Branch and 1 tablet in the evening. pantoprazol 2-0 Yes [id number] 40mg Take 1 [facility] 40 mg EC 8-07 tablet by [facility] tablet 00:00: mouth in [place] [address] the Medical morning Branch and 1 tablet in the evening. pantoprazol 2-0 Yes [id number] 40mg Take 1 [facility] 40 mg EC 8-07 tablet by [facility] tablet 00:00: mouth in [place] 00 the Medical morning Branch and 1 tablet in the evening. pantoprazol 2-0 Yes [id number] 40mg Take 1 [facility] 40 mg EC 8-07 tablet by [facility] tablet 00:00: mouth in [place] [address] the Medical morning Branch and 1 tablet in the evening. pantoprazol 2-0 Yes [id number] 40mg Take 1 [facility] 40 mg EC 8-07 tablet by [facility] tablet 00:00: mouth in [place] 00 the Medical morning Branch and 1 tablet in the evening. pantoprazol 2-0 Yes [id number] 40mg Take 1 [facility] 40 mg EC 8-07 tablet by [facility] tablet 00:00: mouth in [place] 00 the Medical morning Branch and 1 tablet in the evening. pantoprazol 2022-0 Yes [id number] 40mg Take 1 [facility] 40 mg EC 8-07 tablet by [facility] tablet 00:00: mouth in [place] [address] the Medical morning Branch and 1 tablet in the evening. pantoprazol 2022-0 Yes [id number] 40mg Take 1 [facility] 40 mg EC 8-07 tablet by [facility] tablet 00:00: mouth in [place] 00 the Medical morning Branch and 1 tablet in the evening. pantoprazol 2-0 Yes [id number] 40mg Take 1 [facility] 40 mg EC 8-07 tablet by [facility] tablet 00:00: mouth in [place] 00 the Medical morning Branch and 1 tablet in the evening. pantoprazol 2-0 Yes [id number] 40mg Take 1 [facility] 40 mg EC 8-07 tablet by [facility] tablet 00:00: mouth in [place] 00 the Medical morning Branch and 1 tablet in the evening. pantoprazol 2021-0 Yes [id number] 40mg Take 1 [facility] 40 mg EC 8-07 tablet by [facility] tablet 00:00: mouth in [place] 00 the Medical morning Branch and 1 tablet in the evening. pantoprazol 2-0 Yes [id number] 40mg Take 1 [facility] 40 mg EC 8-07 tablet by [facility] tablet 00:00: mouth in [place] 00 the Medical morning Branch and 1 tablet in the evening. pantoprazol 2021-0 Yes [id number] 40mg Take 1 [facility] 40 mg EC 8-07 tablet by [facility] tablet 00:00: mouth in [place] 00 the Medical morning Branch and 1 tablet in the evening. pantoprazol 2021-0 Yes [id number] 40mg Take 1 [facility] 40 mg EC 8-07 tablet by [facility] tablet 00:00: mouth in [place] 00 the Medical morning Branch and 1 tablet in the evening. pantoprazol 2-0 Yes [id number] 40mg Take 1 [facility] 40 mg EC 8-07 tablet by [facility] tablet 00:00: mouth in [place] 00 the Medical morning Branch and 1 tablet in the evening. pantoprazol 2-0 2021- No [id number] 40mg Take 1 [facility] 40 mg EC 8-07 10-25 tablet by [facility] tablet 00:00: 00:00 mouth in [place] 00 :00 the Medical morning Branch and 1 tablet in the evening. pantoprazol 2-0 2- No [id number] 40mg Take 1 [facility] 40 mg EC 8-07 10-25 tablet by [facility] tablet 00:00: 00:00 mouth in [place] 00 :00 the Medical morning Branch and 1 tablet in the evening. pantoprazol 2-0 2- No [id number] 40mg Take 1 [facility] 40 mg EC 06-2925 tablet by [facility] tablet 00:00: 00:00 mouth in [place] 00 :00 the Medical morning Branch and 1 tablet in the evening. pantoprazol 0 2021- No [id number] 40mg Take 1 [facility] 40 mg EC 06-2925 tablet by [facility] tablet 00:00: 00:00 mouth in [place] 00 :00 the Medical morning Branch and 1 tablet in the evening. pantoprazol 2021- No [id number] 40mg Take 1 [facility] 40 mg EC 06-29 tablet by [facility] tablet 00:00: 00:00 mouth in [place] 00 :00 the Medical morning Branch and 1 tablet in the evening. allopurinoL 2021-0 Yes [id number] 100mg Take 1 [facility] 100 mg 8-01 tablet by [facility] tablet 00:00: mouth in [place] 00 the Medical morning. Branch colchicine 2021-0 Yes [id number] .6mg Take 1 [facility] 0.6 mg 8-01 tablet by [facility] tablet 00:00: mouth in [place] 00 the Medical morning. Branch losartan 50 2021-0 Yes [id number] 50mg Take 1 [facility] mg tablet 8-01 tablet by [facility] o f 00:00: mouth in [place] 00 the Medical morning. Branch allopurinoL 2021-0 Yes [id number] 100mg Take 1 [facility] 100 mg 8-01 tablet by [facility] tablet 00:00: mouth in [place] 00 the Medical morning. Branch colchicine 2021-0 Yes [id number] .6mg Take 1 [facility] 0.6 mg 8-01 tablet by [facility] tablet 00:00: mouth in [place] 00 the Medical morning. Branch losartan 50 2021-0 Yes [id number] 50mg Take 1 [facility] tablet 8-01 tablet by [facility] o f 00:00: mouth in [place] 00 the Medical morning. Branch allopurinoL 2021-0 Yes [id number] 100mg Take 1 [facility] 100 mg 8-01 tablet by [facility] tablet 00:00: mouth in [place] 00 the Medical morning. Branch colchicine 2021-0 Yes [id number] .6mg Take 1 [facility] 0.6 mg 8-01 tablet by [facility] tablet 00:00: mouth in [place] 00 the Medical morning. Branch losartan 50 2021-0 Yes [id number] 50mg Take 1 [facility] mg tablet 8-01 tablet by [facility] o f 00:00: mouth in [place] the Medical morning. Branch allopurinoL 2-0 Yes [id number] 100mg Take 1 [facility] 100 mg 8-01 tablet by [facility] tablet 00:00: mouth in [place] the Medical morning. Branch colchicine 2-0 Yes [id number] .6mg Take 1 [facility] 0.6 mg 8-01 tablet by [facility] tablet 00:00: mouth in [place] the Medical morning. Branch losartan 50 2021-0 Yes [id number] 50mg Take 1 [facility] tablet 8-01 tablet by [facility] o f 00:00: mouth in [place] the Medical morning. Branch allopurinoL 2021-0 Yes [id number] 100mg Take 1 [facility] 100 mg 8-01 tablet by [facility] tablet 00:00: mouth in [place] the Medical morning. Branch colchicine 2021-0 Yes [id number] .6mg Take 1 [facility] 0.6 mg 8-01 tablet by [facility] tablet 00:00: mouth in [place] the Medical morning. Branch losartan 50 2021-0 Yes [id number] 50mg Take 1 [facility] mg tablet 8-01 tablet by [facility] o f 00:00: mouth in [place] the Medical morning. Branch allopurinoL 2021-0 Yes [id number] 100mg Take 1 [facility] 100 mg 8-01 tablet by [facility] tablet 00:00: mouth in [place] the Medical morning. Branch colchicine 2021-0 Yes [id number] .6mg Take 1 [facility] 0.6 mg 8-01 tablet by [facility] tablet 00:00: mouth in [place] the Medical morning. Branch losartan 50 2021-0 Yes [id number] 50mg Take 1 [facility] mg tablet 8-01 tablet by [facility] o f 00:00: mouth in [place] the Medical morning. Branch allopurinoL 2-0 Yes [id number] 100mg Take 1 [facility] 100 mg 8-01 tablet by [facility] tablet 00:00: mouth in [place] the Medical morning. Branch colchicine 2-0 Yes [id number] .6mg Take 1 [facility] 0.6 mg 8-01 tablet by [facility] tablet 00:00: mouth in [place] 00 the Medical morning. Branch losartan 50 2021-0 Yes [id number] 50mg Take 1 [facility] tablet 8-01 tablet by [facility] o f 00:00: mouth in [place] 00 the Medical morning. Branch allopurinoL 2022-0 Yes [id number] 100mg Take 1 [facility] 100 mg 8-01 tablet by [facility] tablet 00:00: mouth in [place] the Medical morning. Branch colchicine 2-0 Yes [id number] .6mg Take 1 [facility] 0.6 mg 8-01 tablet by [facility] tablet 00:00: mouth in [place] 00 the Medical morning. Branch losartan 50 2-0 Yes [id number] 50mg Take 1 [facility] tablet 8-01 tablet by [facility] o f 00:00: mouth in [place] the Medical morning. Branch allopurinoL 2-0 Yes [id number] 100mg Take 1 [facility] 100 mg 8-01 tablet by [facility] tablet 00:00: mouth in [place] the Medical morning. Branch colchicine 2-0 Yes [id number] .6mg Take 1 [facility] 0.6 mg 8-01 tablet by [facility] of tablet 00:00: mouth in [place] the Medical morning. Branch losartan 50 2021-0 Yes [id number] 50mg Take 1 [facility] tablet 8-01 tablet by [facility] o f 00:00: mouth in [place] the Medical morning. Branch allopurinoL 2021-0 Yes [id number] 100mg Take 1 [facility] 100 mg 8-01 tablet by [facility] of tablet 00:00: mouth in [place] the Medical morning. Branch colchicine 2-0 Yes [id number] .6mg Take 1 [facility] 0.6 mg 8-01 tablet by [facility] of tablet 00:00: mouth in [place] the Medical morning. Branch allopurinoL 2-0 Yes [id number] 100mg Take 1 [facility] 100 mg 8-01 tablet by [facility] of tablet 00:00: mouth in [place] the Medical morning. Branch colchicine 2-0 Yes [id number] .6mg Take 1 [facility] 0.6 mg 8-01 tablet by [facility] of tablet 00:00: mouth in [place] the Medical morning. Branch allopurinoL 2-0 Yes [id number] 100mg Take 1 [facility] 100 mg 8-01 tablet by [facility] tablet 00:00: mouth in [place] 00 the Medical morning. Branch colchicine 2-0 Yes [id number] .6mg Take 1 [facility] 0.6 mg 8-01 tablet by [facility] of tablet 00:00: mouth in [place] the Medical morning. Branch allopurinoL 2022-0 Yes [id number] 100mg Take 1 [facility] 100 mg 8-01 tablet by [facility] of tablet 00:00: mouth in [place] the Medical morning. Branch colchicine 2022-0 Yes [id number] .6mg Take 1 [facility] 0.6 mg 8-01 tablet by [facility] of tablet 00:00: mouth in [place] the Medical morning. Branch allopurinoL 2022-0 Yes [id number] 100mg Take 1 [facility] 100 mg 8-01 tablet by [facility] of tablet 00:00: mouth in [place] the Medical morning. Branch colchicine 2022-0 Yes [id number] .6mg Take 1 [facility] 0.6 mg 8-01 tablet by [facility] of tablet 00:00: mouth in [place] the Medical morning. Branch allopurinoL 2022-0 Yes [id number] 100mg Take 1 [facility] 100 mg 8-01 tablet by [facility] of tablet 00:00: mouth in [place] the Medical morning. Branch colchicine 2022-0 Yes [id number] .6mg Take 1 [facility] 0.6 mg 8-01 tablet by [facility] of tablet 00:00: mouth in [place] the Medical morning. Branch allopurinoL 2022-0 Yes [id number] 100mg Take 1 [facility] 100 mg 8-01 tablet by [facility] tablet 00:00: mouth in [place] the Medical morning. Branch colchicine 2022-0 Yes [id number] .6mg Take 1 [facility] 0.6 mg 8-01 tablet by [facility] of tablet 00:00: mouth in [place] the Medical morning. Branch allopurinoL 2022-0 Yes [id number] 100mg Take 1 [facility] 100 mg 8-01 tablet by [facility] of tablet 00:00: mouth in [place] the Medical morning. Branch colchicine 2022-0 Yes [id number] .6mg Take 1 [facility] 0.6 mg 8-01 tablet by [facility] of tablet 00:00: mouth in [place] the Medical morning. Branch allopurinoL 2022-0 Yes [id number] 100mg Take 1 [facility] 100 mg 8-01 tablet by [facility] tablet 00:00: mouth in [place] 00 the Medical morning. Branch colchicine 2022-0 Yes [id number] .6mg Take 1 [facility] 0.6 mg 8-01 tablet by [facility] of tablet 00:00: mouth in [place] the Medical morning. Branch allopurinoL 2022-0 Yes [id number] 100mg Take 1 [facility] 100 mg 8-01 tablet by [facility] of tablet 00:00: mouth in [place] the Medical morning. Branch colchicine 2022-0 Yes [id number] .6mg Take 1 [facility] 0.6 mg 8-01 tablet by [facility] of tablet 00:00: mouth in [place] the Medical morning. Branch allopurinoL 2022-0 Yes [id number] 100mg Take 1 [facility] 100 mg 8-01 tablet by [facility] tablet 00:00: mouth in [place] the Medical morning. Branch colchicine 2022-0 Yes [id number] .6mg Take 1 [facility] 0.6 mg 8-01 tablet by [facility] of tablet 00:00: mouth in [place] the Medical morning. Branch allopurinoL 2022-0 Yes [id number] 100mg Take 1 [facility] 100 mg 8-01 tablet by [facility] of tablet 00:00: mouth in [place] the Medical morning. Branch colchicine 2022-0 Yes [id number] .6mg Take 1 [facility] 0.6 mg 8-01 tablet by [facility] of tablet 00:00: mouth in [place] the Medical morning. Branch allopurinoL 2022-0 Yes [id number] 100mg Take 1 [facility] 100 mg 8-01 tablet by [facility] tablet 00:00: mouth in [place] the Medical morning. Branch colchicine 2022-0 Yes [id number] .6mg Take 1 [facility] 0.6 mg 8-01 tablet by [facility] of tablet 00:00: mouth in [place] the Medical morning. Branch allopurinoL 2022-0 Yes [id number] 100mg Take 1 [facility] 100 mg 8-01 tablet by [facility] tablet 00:00: mouth in [place] the Medical morning. Branch colchicine 2022-0 Yes [id number] .6mg Take 1 [facility] 0.6 mg 8-01 tablet by [facility] of tablet 00:00: mouth in [place] the Medical morning. Branch allopurinoL 2022-0 Yes [id number] 100mg Take 1 [facility] 100 mg 8-01 tablet by [facility] of tablet 00:00: mouth in [place] the Medical morning. Branch colchicine 2022-0 Yes [id number] .6mg Take 1 [facility] 0.6 mg 8-01 tablet by [facility] of tablet 00:00: mouth in [place] the Medical morning. Branch allopurinoL 2022-0 Yes [id number] 100mg Take 1 [facility] 100 mg 8-01 tablet by [facility] of tablet 00:00: mouth in [place] the Medical morning. Branch colchicine 2022-0 Yes [id number] .6mg Take 1 [facility] 0.6 mg 8-01 tablet by [facility] of tablet 00:00: mouth in [place] the Medical morning. Branch allopurinoL 2022-0 Yes [id number] 100mg Take 1 [facility] 100 mg 8-01 tablet by [facility] of tablet 00:00: mouth in [place] the Medical morning. Branch colchicine 2022-0 Yes [id number] .6mg Take 1 [facility] 0.6 mg 8-01 tablet by [facility] of tablet 00:00: mouth in [place] the Medical morning. Branch allopurinoL 2022-0 Yes [id number] 100mg Take 1 [facility] 100 mg 8-01 tablet by [facility] of tablet 00:00: mouth in [place] the Medical morning. Branch colchicine 2022-0 Yes [id number] .6mg Take 1 [facility] 0.6 mg 8-01 tablet by [facility] of tablet 00:00: mouth in [place] the Medical morning. Branch allopurinoL 2022-0 Yes [id number] 100mg Take 1 [facility] 100 mg 8-01 tablet by [facility] of tablet 00:00: mouth in [place] the Medical morning. Branch colchicine 2022-0 Yes [id number] .6mg Take 1 [facility] 0.6 mg 8-01 tablet by [facility] of tablet 00:00: mouth in [place] the Medical morning. Branch allopurinoL 2022-0 Yes [id number] 100mg Take 1 [facility] 100 mg 8-01 tablet by [facility] of tablet 00:00: mouth in [place] the Medical morning. Branch colchicine 2022-0 Yes [id number] .6mg Take 1 [facility] 0.6 mg 8-01 tablet by [facility] of tablet 00:00: mouth in [place] the Medical morning. Branch allopurinoL 2022-0 Yes [id number] 100mg Take 1 [facility] 100 mg 8-01 tablet by [facility] of tablet 00:00: mouth in [place] the Medical morning. Branch colchicine 2022-0 Yes [id number] .6mg Take 1 [facility] 0.6 mg 8-01 tablet by [facility] of tablet 00:00: mouth in [place] the Medical morning. Branch allopurinoL 2022-0 Yes [id number] 100mg Take 1 [facility] 100 mg 8-01 tablet by [facility] of tablet 00:00: mouth in [place] the Medical morning. Branch colchicine 2022-0 Yes [id number] .6mg Take 1 [facility] 0.6 mg 8-01 tablet by [facility] of tablet 00:00: mouth in [place] the Medical morning. Branch allopurinoL 2022-0 Yes [id number] 100mg Take 1 [facility] 100 mg 8-01 tablet by [facility] of tablet 00:00: mouth in [place] the Medical morning. Branch colchicine 2022-0 Yes [id number] .6mg Take 1 [facility] 0.6 mg 8-01 tablet by [facility] of tablet 00:00: mouth in [place] the Medical morning. Branch allopurinoL 2022-0 Yes [id number] 100mg Take 1 [facility] 100 mg 8-01 tablet by [facility] of tablet 00:00: mouth in [place] the Medical morning. Branch colchicine 2022-0 Yes [id number] .6mg Take 1 [facility] 0.6 mg 8-01 tablet by [facility] of tablet 00:00: mouth in [place] the Medical morning. Branch allopurinoL 2022-0 Yes [id number] 100mg Take 1 [facility] 100 mg 8-01 tablet by [facility] of tablet 00:00: mouth in [place] the Medical morning. Branch colchicine 2022-0 Yes [id number] .6mg Take 1 [facility] 0.6 mg 8-01 tablet by [facility] of tablet 00:00: mouth in [place] the Medical morning. Branch allopurinoL 2022-0 Yes [id number] 100mg Take 1 [facility] 100 mg 8-01 tablet by [facility] of tablet 00:00: mouth in [place] the Medical morning. Branch colchicine 2022-0 Yes [id number] .6mg Take 1 [facility] 0.6 mg 8-01 tablet by [facility] of tablet 00:00: mouth in [place] the Medical morning. Branch allopurinoL 2022-0 Yes [id number] 100mg Take 1 [facility] 100 mg 8-01 tablet by [facility] of tablet 00:00: mouth in [place] the Medical morning. Branch colchicine 2022-0 Yes [id number] .6mg Take 1 [facility] 0.6 mg 8-01 tablet by [facility] of tablet 00:00: mouth in [place] 00 the Medical morning. Branch allopurinoL 2022-0 Yes [id number] 100mg Take 1 [facility] 100 mg 8-01 tablet by [facility] of tablet 00:00: mouth in [place] the Medical morning. Branch colchicine 2022-0 Yes [id number] .6mg Take 1 [facility] 0.6 mg 8-01 tablet by [facility] of tablet 00:00: mouth in [place] the Medical morning. Branch allopurinoL 2022-0 Yes [id number] 100mg Take 1 [facility] 100 mg 8-01 tablet by [facility] of tablet 00:00: mouth in [place] the Medical morning. Branch colchicine 2022-0 Yes [id number] .6mg Take 1 [facility] 0.6 mg 8-01 tablet by [facility] of tablet 00:00: mouth in [place] the Medical morning. Branch allopurinoL 2022-0 Yes [id number] 100mg Take 1 [facility] 100 mg 8-01 tablet by [facility] of tablet 00:00: mouth in [place] the Medical morning. Branch colchicine 2022-0 Yes [id number] .6mg Take 1 [facility] 0.6 mg 8-01 tablet by [facility] of tablet 00:00: mouth in [place] the Medical morning. Branch allopurinoL 2022-0 Yes [id number] 100mg Take 1 [facility] 100 mg 8-01 tablet by [facility] of tablet 00:00: mouth in [place] the Medical morning. Branch colchicine 2022-0 Yes [id number] .6mg Take 1 [facility] 0.6 mg 8-01 tablet by [facility] of tablet 00:00: mouth in [place] the Medical morning. Branch allopurinoL 2022-0 Yes [id number] 100mg Take 1 [facility] 100 mg 8-01 tablet by [facility] of tablet 00:00: mouth in [place] the Medical morning. Branch colchicine 2022-0 Yes [id number] .6mg Take 1 [facility] 0.6 mg 8-01 tablet by [facility] of tablet 00:00: mouth in [place] the Medical morning. Branch allopurinoL 2022-0 Yes [id number] 100mg Take 1 [facility] 100 mg 8-01 tablet by [facility] tablet 00:00: mouth in [place] 00 the Medical morning. Branch colchicine 2022-0 Yes [id number] .6mg Take 1 [facility] 0.6 mg 8-01 tablet by [facility] of tablet 00:00: mouth in [place] 00 the Medical morning. Branch allopurinoL 2022-0 Yes [id number] 100mg Take 1 [facility] 100 mg 8-01 tablet by [facility] of tablet 00:00: mouth in [place] 00 the Medical morning. Branch colchicine 2-0 Yes [id number] .6mg Take 1 [facility] 0.6 mg 8-01 tablet by [facility] of tablet 00:00: mouth in [place] 00 the Medical morning. Branch allopurinoL 2-0 Yes [id number] 100mg Take 1 [facility] 100 mg 8-01 tablet by [facility] of tablet 00:00: mouth in [place] 00 the Medical morning. Branch colchicine 2-0 Yes [id number] .6mg Take 1 [facility] 0.6 mg 8-01 tablet by [facility] of tablet 00:00: mouth in [place] the Medical morning. Branch allopurinoL 2022-0 Yes [id number] 100mg Take 1 [facility] 100 mg 8-01 tablet by [facility] of tablet 00:00: mouth in [place] the Medical morning. Branch colchicine 2-0 Yes [id number] .6mg Take 1 [facility] 0.6 mg 8-01 tablet by [facility] of tablet 00:00: mouth in [place] the Medical morning. Branch allopurinoL 2-0 Yes [id number] 100mg Take 1 [facility] 100 mg 8-01 tablet by [facility] of tablet 00:00: mouth in [place] the Medical morning. Branch colchicine 2-0 Yes [id number] .6mg Take 1 [facility] 0.6 mg 8-01 tablet by [facility] of tablet 00:00: mouth in [place] the Medical morning. Branch allopurinoL 2-0 Yes [id number] 100mg Take 1 [facility] 100 mg 8-01 tablet by [facility] of tablet 00:00: mouth in [place] 00 the Medical morning. Branch colchicine 2022-0 Yes [id number] .6mg Take 1 [facility] 0.6 mg 8-01 tablet by [facility] of tablet 00:00: mouth in [place] 00 the Medical morning. Branch allopurinoL 2022-0 Yes [id number] 100mg Take 1 [facility] 100 mg 8-01 tablet by [facility] of tablet 00:00: mouth in [place] 00 the Medical morning. Branch colchicine 2022-0 Yes [id number] .6mg Take 1 [facility] 0.6 mg 8-01 tablet by [facility] of tablet 00:00: mouth in [place] 00 the Medical morning. Branch allopurinoL 2022-0 Yes [id number] 100mg Take 1 [facility] 100 mg 8-01 tablet by [facility] of tablet 00:00: mouth in [place] 00 the Medical morning. Branch colchicine 2-0 Yes [id number] .6mg Take 1 [facility] 0.6 mg 8-01 tablet by [facility] of tablet 00:00: mouth in [place] 00 the Medical morning. Branch allopurinoL 2-0 Yes [id number] 100mg Take 1 [facility] 100 mg 8-01 tablet by [facility] of tablet 00:00: mouth in [place] 00 the Medical morning. Branch colchicine 2-0 Yes [id number] .6mg Take 1 [facility] 0.6 mg 8-01 tablet by [facility] of tablet 00:00: mouth in [place] the Medical morning. Branch allopurinoL 2-0 Yes [id number] 100mg Take 1 [facility] 100 mg 8-01 tablet by [facility] of tablet 00:00: mouth in [place] the Medical morning. Branch colchicine 2-0 Yes [id number] .6mg Take 1 [facility] 0.6 mg 8-01 tablet by [facility] of tablet 00:00: mouth in [place] the Medical morning. Branch allopurinoL 2-0 Yes [id number] 100mg Take 1 [facility] 100 mg 8-01 tablet by [facility] of tablet 00:00: mouth in [place] the Medical morning. Branch colchicine 2-0 Yes [id number] .6mg Take 1 [facility] 0.6 mg 8-01 tablet by [facility] of tablet 00:00: mouth in [place] the Medical morning. Branch allopurinoL 2-0 Yes [id number] 100mg Take 1 [facility] 100 mg 8-01 tablet by [facility] of tablet 00:00: mouth in [place] the Medical morning. Branch colchicine 2-0 Yes [id number] .6mg Take 1 [facility] 0.6 mg 8-01 tablet by [facility] of tablet 00:00: mouth in [place] 00 the Medical morning. Branch allopurinoL 2022-0 Yes [id number] 100mg Take 1 [facility] 100 mg 8-01 tablet by [facility] of tablet 00:00: mouth in [place] 00 the Medical morning. Branch colchicine 2022-0 Yes [id number] .6mg Take 1 [facility] 0.6 mg 8-01 tablet by [facility] of tablet 00:00: mouth in [place] 00 the Medical morning. Branch allopurinoL 2-0 Yes [id number] 100mg Take 1 [facility] 100 mg 8-01 tablet by [facility] of tablet 00:00: mouth in [place] 00 the Medical morning. Branch colchicine 2-0 Yes [id number] .6mg Take 1 [facility] 0.6 mg 8-01 tablet by [facility] of tablet 00:00: mouth in [place] 00 the Medical morning. Branch colchicine 2-0 Yes [id number] .6mg Take 1 [facility] 0.6 mg 8-01 tablet by [facility] of tablet 00:00: mouth in [place] 00 the Medical morning. Branch colchicine 2-0 Yes [id number] .6mg Take 1 [facility] 0.6 mg 8-01 tablet by [facility] of tablet 00:00: mouth in [place] 00 the Medical morning. Branch colchicine 2-0 Yes [id number] .6mg Take 1 [facility] 0.6 mg 8-01 tablet by [facility] tablet 00:00: mouth in [place] the Medical morning. Branch colchicine 2021-0 Yes [id number] .6mg Take 1 [facility] 0.6 mg 8-01 tablet by [facility] of tablet 00:00: mouth in [place] the Medical morning. Branch colchicine 2021-0 Yes [id number] .6mg Take 1 [facility] 0.6 mg 8-01 tablet by [facility] of tablet 00:00: mouth in [place] the Medical morning. Branch colchicine 2021-0 Yes [id number] .6mg Take 1 [facility] 0.6 mg 8-01 tablet by [facility] of tablet 00:00: mouth in [place] the Medical morning. Branch colchicine 2-0 Yes [id number] .6mg Take 1 [facility] 0.6 mg 8-01 tablet by [facility] of tablet 00:00: mouth in [place] 00 the Medical morning. Branch colchicine 2-0 Yes [id number] .6mg Take 1 [facility] 0.6 mg 8-01 tablet by [facility] of tablet 00:00: mouth in [place] 00 the Medical morning. Branch colchicine 2-0 Yes [id number] .6mg Take 1 [facility] 0.6 mg 8-01 tablet by [facility] of tablet 00:00: mouth in [place] 00 the Medical morning. Branch colchicine 2-0 Yes [id number] .6mg Take 1 [facility] 0.6 mg 8-01 tablet by [facility] of tablet 00:00: mouth in [place] 00 the Medical morning. Branch colchicine 2021-0 2022- No [id number] .6mg Take 1 [facility] 0.6 mg 8-01 10-31 tablet by [facility] of tablet 00:00: 00:00 mouth in [place] 00 :00 the Medical morning. Branch colchicine 2-0 2- No [id number] .6mg Take 1 [facility] 0.6 mg 8- 10-31 tablet by [facility] of tablet 00:00: 00:00 mouth in [place] 00 :00 the Medical morning. Branch allopurinoL 2022-0 2022- No [id number] 100mg Take 1 [facility] 100 mg 8- 10-25 tablet by [facility] of tablet 00:00: 00:00 mouth in [place] 00 :00 the Medical morning. Branch allopurinoL 2021-0 2022- No [id number] 100mg Take 1 [facility] 100 mg 8-01 10-25 tablet by [facility] of tablet 00:00: 00:00 mouth in [place] 00 :00 the Medical morning. Branch allopurinoL 2021-0 2- No [id number] 100mg Take 1 [facility] 100 mg 8- 10-25 tablet by [facility] of tablet 00:00: 00:00 mouth in [place] 00 :00 the Medical morning. Branch losartan 50 2021-0 2022- No [id number] 50mg Take 1 [facility] mg tablet 06-2324 tablet by [facility] of 00:00: 00:00 mouth in [place] 00 :00 the Medical morning. Branch losartan 50 2-0 2- No [id number] 50mg Take 1 [facility] mg tablet 06-2324 tablet by ity of 00:00: 00:00 mouth in [place] 00 :00 the Medical morning. Branch flash 2021-0 Yes [id number] 2U 2 Units [facility] glucose 7-25 every 2 [facility]y of sensor 00:00: (two) [place] (FREESTYLE 00 weeks. Medical CHON 2 Branch SENSOR) Kit flash 2021-0 Yes [id number] 2 Units [facility] glucose 7-25 every 2 ity of sensor 00:00: (two) [place] (FREESTYLE 00 weeks. Medical CHON 2 Branch SENSOR) Kit flash 2021-0 Yes [id number] 2 Units [facility] glucose 7-25 every 2 ity of sensor 00:00: (two) [place] (FREESTYLE 00 weeks. Medical CHON 2 Branch SENSOR) Kit flash 2022-0 Yes [id number] 2U 2 Units [facility] glucose 7-25 every 2 ity of sensor 00:00: (two) [place] (FREESTYLE 00 weeks. Medical CHON 2 Branch SENSOR) Kit flash 2022-0 Yes [id number] 2 Units [facility] glucose 7-25 every 2 ity of sensor 00:00: (two) [place] (FREESTYLE 00 weeks. Medical CHON 2 Branch SENSOR) Kit flash 2022-0 Yes [id number] 2 Units [facility] glucose 7-25 every 2 ity of sensor 00:00: (two) [place] (FREESTYLE 00 weeks. Medical CHON 2 Branch SENSOR) Kit flash 2022-0 Yes [id number] 2 Units [facility] glucose 7-25 every 2 ity of sensor 00:00: (two) [place] (FREESTYLE 00 weeks. Medical CHON 2 Branch SENSOR) Kit flash 2022-0 Yes [id number] 2U 2 Units [facility] glucose 7-25 every 2 ity of sensor 00:00: (two) [place] (FREESTYLE 00 weeks. Medical CHON 2 Branch SENSOR) Kit flash 2022-0 Yes [id number] 2 Units [facility] glucose 7-25 every 2 ity of sensor 00:00: (two) [place] (FREESTYLE 00 weeks. Medical CHON 2 Branch SENSOR) Kit flash 2022-0 Yes [id number] 2U 2 Units [facility] glucose 7-25 every 2 ity of sensor 00:00: (two) [place] (FREESTYLE 00 weeks. Medical CHON 2 Branch SENSOR) Kit flash 2022-0 Yes [id number] 2 Units [facility] glucose 7-25 every 2 ity of sensor 00:00: (two) [place] (FREESTYLE 00 weeks. Medical CHON 2 Branch SENSOR) Kit flash 2022-0 Yes [id number] 2 Units [facility] glucose 7-25 every 2 ity of sensor 00:00: (two) [place] (FREESTYLE 00 weeks. Medical CHON 2 Branch SENSOR) Kit flash 2022-0 Yes [id number] 2U 2 Units [facility] glucose 7-25 every 2 ity of sensor 00:00: (two) [place] (FREESTYLE 00 weeks. Medical CHON 2 Branch SENSOR) Kit flash 2022-0 Yes [id number] 2 Units [facility] glucose 7-25 every 2 ity of sensor 00:00: (two) [place] (FREESTYLE 00 weeks. Medical CHON 2 Branch SENSOR) Kit flash 2022-0 Yes [id number] 2U 2 Units [facility] glucose 7-25 every 2 ity of sensor 00:00: (two) [place] (FREESTYLE 00 weeks. Medical CHON 2 Branch SENSOR) Kit flash 2022-0 Yes [id number] 2U 2 Units [facility] glucose 7-25 every 2 ity of sensor 00:00: (two) [place] (FREESTYLE 00 weeks. Medical CHON 2 Branch SENSOR) Kit flash 2022-0 Yes [id number] 2 Units [facility] glucose 7-25 every 2 ity of sensor 00:00: (two) [place] (FREESTYLE 00 weeks. Medical CHON 2 Branch SENSOR) Kit flash 2022-0 Yes [id number] 2 Units [facility] glucose 7-25 every 2 ity of sensor 00:00: (two) [place] (FREESTYLE 00 weeks. Medical CHON 2 Branch SENSOR) Kit flash 2022-0 Yes [id number] 2U 2 Units [facility] glucose 7-25 every 2 ity of sensor 00:00: (two) [place] (FREESTYLE 00 weeks. Medical CHON 2 Branch SENSOR) Kit flash 2021-0 2022- No [id number] 2U 2 Units [facility] glucose 7-25 10-05 every 2 ity of sensor 00:00: 00:00 (two) [place] (FREESTYLE 00 :00 weeks. Medical CHON 2 Branch SENSOR) Kit flash 2022-0 2022- No [id number] 2U 2 Units [facility] glucose 7-25 10-05 every 2 ity of sensor 00:00: 00:00 (two) [place] (FREESTYLE 00 :00 weeks. Medical CHON 2 Branch SENSOR) Kit flash 2022-0 2022- No [id number] 2U 2 Units [facility] glucose 7-25 10-05 every 2 ity of sensor 00:00: 00:00 (two) [place] (FREESTYLE 00 :00 weeks. Medical CHON 2 Branch SENSOR) Kit ipratropium 2021-0 Yes USE 1 [facility] -albuteroL 7-13 AMPULE IN ity of 0.5 mg-3 00:00: [place] mg(2.5 mg 00 4 TIMES Medical base)/3 mL DAILY [facility] nebulizer NEEDED FOR solution SHORTNESS OF BREATH ipratropium 0 Yes USE 1 [facility] -albuteroL 7-13 AMPULE IN ity of 0.5 mg-3 00:00: [place] mg(2.5 mg 00 4 TIMES Medical base)/3 mL DAILY [facility] nebulizer NEEDED FOR solution SHORTNESS OF BREATH ipratropium 0 Yes USE 1 [facility] -albuteroL 7-13 AMPULE IN ity of 0.5 mg-3 00:00: [place] mg(2.5 mg 00 4 TIMES Medical base)/3 mL DAILY [facility] nebulizer NEEDED FOR solution SHORTNESS OF BREATH ipratropium 0 Yes USE 1 [facility] -albuteroL 7-13 AMPULE IN ity of 0.5 mg-3 00:00: [place] mg(2.5 mg 00 4 TIMES Medical base)/3 mL DAILY [facility] nebulizer NEEDED FOR solution SHORTNESS OF BREATH ipratropium 0 Yes USE 1 [facility] -albuteroL 7-13 AMPULE IN ity of 0.5 mg-3 00:00: [place] mg(2.5 mg 00 4 TIMES Medical base)/3 mL DAILY [facility] nebulizer NEEDED FOR solution SHORTNESS OF BREATH ipratropium 0 Yes USE 1 [facility] -albuteroL 7-13 AMPULE IN ity of 0.5 mg-3 00:00: [place] mg(2.5 mg 00 4 TIMES Medical base)/3 mL DAILY [facility] nebulizer NEEDED FOR solution SHORTNESS OF BREATH ipratropium 0 Yes USE 1 [facility] -albuteroL 7-13 AMPULE IN ity of 0.5 mg-3 00:00: [place] mg(2.5 mg 00 4 TIMES Medical base)/3 mL DAILY [facility] nebulizer NEEDED FOR solution SHORTNESS OF BREATH ipratropium 0 Yes USE 1 [facility] -albuteroL 7-13 AMPULE IN ity of 0.5 mg-3 00:00: [place] mg(2.5 mg 00 4 TIMES Medical base)/3 mL DAILY [facility] nebulizer NEEDED FOR solution SHORTNESS OF BREATH ipratropium Yes USE 1 [facility] -albuteroL 7-13 AMPULE IN ity of 0.5 mg-3 00:00: [place] mg(2.5 mg 00 4 TIMES Medical base)/3 mL DAILY [facility] nebulizer NEEDED FOR solution SHORTNESS OF BREATH ipratropium 0 Yes USE 1 [facility] -albuteroL 7-13 AMPULE IN ity of 0.5 mg-3 00:00: [place] mg(2.5 mg 00 4 TIMES Medical base)/3 mL DAILY [facility] nebulizer NEEDED FOR solution SHORTNESS OF BREATH ipratropium 0 Yes USE 1 [facility] -albuteroL 7-13 AMPULE IN ity of 0.5 mg-3 00:00: [place] mg(2.5 mg 00 4 TIMES Medical base)/3 mL DAILY [facility] nebulizer NEEDED FOR solution SHORTNESS OF BREATH ipratropium 0 Yes USE 1 [facility] -albuteroL 7-13 AMPULE IN ity of 0.5 mg-3 00:00: [place] mg(2.5 mg 00 4 TIMES Medical base)/3 mL DAILY [facility] nebulizer NEEDED FOR solution SHORTNESS OF BREATH ipratropium 0 Yes USE 1 [facility] -albuteroL 7-13 AMPULE IN ity of 0.5 mg-3 00:00: [place] mg(2.5 mg 00 4 TIMES Medical base)/3 mL DAILY [facility] nebulizer NEEDED FOR solution SHORTNESS OF BREATH ipratropium Yes USE 1 [facility] -albuteroL 7-13 AMPULE IN ity of 0.5 mg-3 00:00: [place] mg(2.5 mg 00 4 TIMES Medical base)/3 mL DAILY [facility] nebulizer NEEDED FOR solution SHORTNESS OF BREATH ipratropium 0 Yes USE 1 [facility] -albuteroL 7-13 AMPULE IN ity of 0.5 mg-3 00:00: [place] mg(2.5 mg 00 4 TIMES Medical base)/3 mL DAILY [facility] nebulizer NEEDED FOR solution SHORTNESS OF BREATH ipratropium 0 Yes USE 1 [facility] -albuteroL 7-13 AMPULE IN ity of 0.5 mg-3 00:00: [place] mg(2.5 mg 00 4 TIMES Medical base)/3 mL DAILY [facility] nebulizer NEEDED FOR solution SHORTNESS OF BREATH ipratropium 0 Yes USE 1 [facility] -albuteroL 7-13 AMPULE IN ity of 0.5 mg-3 00:00: [place] mg(2.5 mg 00 4 TIMES Medical base)/3 mL DAILY [facility] nebulizer NEEDED FOR solution SHORTNESS OF BREATH ipratropium 0 Yes USE 1 [facility] -albuteroL 7-13 AMPULE IN ity of 0.5 mg-3 00:00: [place] mg(2.5 mg 00 4 TIMES Medical base)/3 mL DAILY [facility] nebulizer NEEDED FOR solution SHORTNESS OF BREATH ipratropium 0 Yes USE 1 [facility] -albuteroL 7-13 AMPULE IN ity of 0.5 mg-3 00:00: [place] mg(2.5 mg 00 4 TIMES Medical base)/3 mL DAILY [facility] nebulizer NEEDED FOR solution SHORTNESS OF BREATH ipratropium 0 Yes USE 1 [facility] -albuteroL 7-13 AMPULE IN ity of 0.5 mg-3 00:00: [place] mg(2.5 mg 00 4 TIMES Medical base)/3 mL DAILY [facility] nebulizer NEEDED FOR solution SHORTNESS OF BREATH ipratropium 0 Yes USE 1 [facility] rs -albuteroL 7-13 AMPULE IN ity of 0.5 mg-3 00:00: [place] mg(2.5 mg 00 4 TIMES Medical base)/3 mL DAILY [facility] nebulizer NEEDED FOR solution SHORTNESS OF BREATH ipratropium 0 Yes USE 1 [facility] -albuteroL 7-13 AMPULE IN ity of 0.5 mg-3 00:00: [place] mg(2.5 mg 00 4 TIMES Medical base)/3 mL DAILY [facility] nebulizer NEEDED FOR solution SHORTNESS OF BREATH ipratropium 0 Yes USE 1 [facility] -albuteroL 7-13 AMPULE IN ity of 0.5 mg-3 00:00: [place] mg(2.5 mg 00 4 TIMES Medical base)/3 mL DAILY [facility] nebulizer NEEDED FOR solution SHORTNESS OF BREATH ipratropium 0 Yes USE 1 [facility] -albuteroL 7-13 AMPULE IN ity of 0.5 mg-3 00:00: [place] mg(2.5 mg 00 4 TIMES Medical base)/3 mL DAILY [facility] nebulizer NEEDED FOR solution SHORTNESS OF BREATH ipratropium 0 Yes USE 1 [facility] rs -albuteroL 7-13 AMPULE IN ity of 0.5 mg-3 00:00: [place] mg(2.5 mg 00 4 TIMES Medical base)/3 mL DAILY [facility] nebulizer NEEDED FOR solution SHORTNESS OF BREATH ipratropium 0 Yes USE 1 [facility] -albuteroL 7-13 AMPULE IN ity of 0.5 mg-3 00:00: [place] mg(2.5 mg 00 4 TIMES Medical base)/3 mL DAILY [facility] nebulizer NEEDED FOR solution SHORTNESS OF BREATH ipratropium 0 Yes USE 1 [facility] -albuteroL 7-13 AMPULE IN ity of 0.5 mg-3 00:00: [place] mg(2.5 mg 00 4 TIMES Medical base)/3 mL DAILY [facility] nebulizer NEEDED FOR solution SHORTNESS OF BREATH ipratropium 0 Yes USE 1 [facility] -albuteroL 7-13 AMPULE IN ity of 0.5 mg-3 00:00: [place] mg(2.5 mg 00 4 TIMES Medical base)/3 mL DAILY [facility] nebulizer NEEDED FOR solution SHORTNESS OF BREATH ipratropium 0 Yes USE 1 [facility] -albuteroL 7-13 AMPULE IN ity of 0.5 mg-3 00:00: [place] mg(2.5 mg 00 4 TIMES Medical base)/3 mL DAILY [facility] nebulizer NEEDED FOR solution SHORTNESS OF BREATH ipratropium 0 Yes USE 1 [facility] rs -albuteroL 7-13 AMPULE IN ity of 0.5 mg-3 00:00: [place] mg(2.5 mg 00 4 TIMES Medical base)/3 mL DAILY [facility] nebulizer NEEDED FOR solution SHORTNESS OF BREATH ipratropium 0 Yes USE 1 [facility] -albuteroL 7-13 AMPULE IN ity of 0.5 mg-3 00:00: [place] mg(2.5 mg 00 4 TIMES Medical base)/3 mL DAILY [facility] nebulizer NEEDED FOR solution SHORTNESS OF BREATH ipratropium 0 Yes USE 1 [facility] rs -albuteroL 7-13 AMPULE IN ity of 0.5 mg-3 00:00: [place] mg(2.5 mg 00 4 TIMES Medical base)/3 mL DAILY [facility] nebulizer NEEDED FOR solution SHORTNESS OF BREATH ipratropium 0 Yes USE 1 [facility] rs -albuteroL 7-13 AMPULE IN ity of 0.5 mg-3 00:00: [place] mg(2.5 mg 00 4 TIMES Medical base)/3 mL DAILY [facility] nebulizer NEEDED FOR solution SHORTNESS OF BREATH ipratropium 0 Yes USE 1 [facility] rs -albuteroL 7-13 AMPULE IN ity of 0.5 mg-3 00:00: [place] mg(2.5 mg 00 4 TIMES Medical base)/3 mL DAILY [facility] nebulizer NEEDED FOR solution SHORTNESS OF BREATH ipratropium 0 Yes USE 1 [facility] rs -albuteroL 7-13 AMPULE IN ity of 0.5 mg-3 00:00: [place] mg(2.5 mg 00 4 TIMES Medical base)/3 mL DAILY [facility] nebulizer NEEDED FOR solution SHORTNESS OF BREATH ipratropium 0 Yes USE 1 [facility] rs -albuteroL 7-13 AMPULE IN ity of 0.5 mg-3 00:00: [place] mg(2.5 mg 00 4 TIMES Medical base)/3 mL DAILY [facility] nebulizer NEEDED FOR solution SHORTNESS OF BREATH ipratropium 0 Yes USE 1 [facility] rs -albuteroL 7-13 AMPULE IN ity of 0.5 mg-3 00:00: [place] mg(2.5 mg 00 4 TIMES Medical base)/3 mL DAILY [facility] nebulizer NEEDED FOR solution SHORTNESS OF BREATH ipratropium 0 Yes USE 1 [facility] -albuteroL 7-13 AMPULE IN ity of 0.5 mg-3 00:00: [place] mg(2.5 mg 00 4 TIMES Medical base)/3 mL DAILY [facility] nebulizer NEEDED FOR solution SHORTNESS OF BREATH ipratropium 0 Yes USE 1 [facility] rs -albuteroL 7-13 AMPULE IN ity of 0.5 mg-3 00:00: [place] mg(2.5 mg 00 4 TIMES Medical base)/3 mL DAILY [facility] nebulizer NEEDED FOR solution SHORTNESS OF BREATH ipratropium 0 Yes USE 1 [facility] rs -albuteroL 7-13 AMPULE IN ity of 0.5 mg-3 00:00: [place] mg(2.5 mg 00 4 TIMES Medical base)/3 mL DAILY [facility] nebulizer NEEDED FOR solution SHORTNESS OF BREATH ipratropium 0 Yes USE 1 [facility] rs -albuteroL 7-13 AMPULE IN ity of 0.5 mg-3 00:00: [place] mg(2.5 mg 00 4 TIMES Medical base)/3 mL DAILY [facility] nebulizer NEEDED FOR solution SHORTNESS OF BREATH ipratropium 0 Yes USE 1 [facility] rs -albuteroL 7-13 AMPULE IN ity of 0.5 mg-3 00:00: [place] mg(2.5 mg 00 4 TIMES Medical base)/3 mL DAILY [facility] nebulizer NEEDED FOR solution SHORTNESS OF BREATH ipratropium 0 Yes USE 1 [facility] rs -albuteroL 7-13 AMPULE IN ity of 0.5 mg-3 00:00: [place] mg(2.5 mg 00 4 TIMES Medical base)/3 mL DAILY [facility] nebulizer NEEDED FOR solution SHORTNESS OF BREATH ipratropium Yes USE 1 [facility] rs -albuteroL 7-13 AMPULE IN ity of 0.5 mg-3 00:00: [place] mg(2.5 mg 00 4 TIMES Medical base)/3 mL DAILY [facility] nebulizer NEEDED FOR solution SHORTNESS OF BREATH ipratropium Yes USE 1 [facility] rs -albuteroL 7-13 AMPULE IN ity of 0.5 mg-3 00:00: [place] mg(2.5 mg 00 4 TIMES Medical base)/3 mL DAILY [facility] nebulizer NEEDED FOR solution SHORTNESS OF BREATH ipratropium Yes USE 1 [facility] rs -albuteroL 7-13 AMPULE IN ity of 0.5 mg-3 00:00: [place] mg(2.5 mg 00 4 TIMES Medical base)/3 mL DAILY [facility] nebulizer NEEDED FOR solution SHORTNESS OF BREATH ipratropium Yes USE 1 [facility] rs -albuteroL 7-13 AMPULE IN ity of 0.5 mg-3 00:00: [place] mg(2.5 mg 00 4 TIMES Medical base)/3 mL DAILY [facility] nebulizer NEEDED FOR solution SHORTNESS OF BREATH ipratropium Yes USE 1 [facility] rs -albuteroL 7-13 AMPULE IN ity of 0.5 mg-3 00:00: [place] mg(2.5 mg 00 4 TIMES Medical base)/3 mL DAILY [facility] nebulizer NEEDED FOR solution SHORTNESS OF BREATH ipratropium Yes USE 1 [facility] rs -albuteroL 7-13 AMPULE IN ity of 0.5 mg-3 00:00: [place] mg(2.5 mg 00 4 TIMES Medical base)/3 mL DAILY [facility] nebulizer NEEDED FOR solution SHORTNESS OF BREATH ipratropium 0 Yes USE 1 [facility] rs -albuteroL 7-13 AMPULE IN ity of 0.5 mg-3 00:00: [place] mg(2.5 mg 00 4 TIMES Medical base)/3 mL DAILY [facility] nebulizer NEEDED FOR solution SHORTNESS OF BREATH ipratropium Yes USE 1 [facility] rs -albuteroL 7-13 AMPULE IN ity of 0.5 mg-3 00:00: [place] mg(2.5 mg 00 4 TIMES Medical base)/3 mL DAILY [facility] nebulizer NEEDED FOR solution SHORTNESS OF BREATH ipratropium 0 Yes USE 1 [facility] rs -albuteroL 7-13 AMPULE IN ity of 0.5 mg-3 00:00: [place] mg(2.5 mg 00 4 TIMES Medical base)/3 mL DAILY [facility] nebulizer NEEDED FOR solution SHORTNESS OF BREATH ipratropium Yes USE 1 [facility] rs -albuteroL 7-13 AMPULE IN ity of 0.5 mg-3 00:00: [place] mg(2.5 mg 00 4 TIMES Medical base)/3 mL DAILY [facility] nebulizer NEEDED FOR solution SHORTNESS OF BREATH ipratropium Yes USE 1 [facility] rs -albuteroL 7-13 AMPULE IN ity of 0.5 mg-3 00:00: [place] mg(2.5 mg 00 4 TIMES Medical base)/3 mL DAILY [facility] nebulizer NEEDED FOR solution SHORTNESS OF BREATH ipratropium 0 Yes USE 1 [facility] rs -albuteroL 7-13 AMPULE IN ity of 0.5 mg-3 00:00: [place] mg(2.5 mg 00 4 TIMES Medical base)/3 mL DAILY [facility] nebulizer NEEDED FOR solution SHORTNESS OF BREATH ipratropium Yes USE 1 [facility] rs -albuteroL 7-13 AMPULE IN ity of 0.5 mg-3 00:00: [place] mg(2.5 mg 00 4 TIMES Medical base)/3 mL DAILY [facility] nebulizer NEEDED FOR solution SHORTNESS OF BREATH ipratropium 0 Yes USE 1 [facility] rs -albuteroL 7-13 AMPULE IN ity of 0.5 mg-3 00:00: [place] mg(2.5 mg 00 4 TIMES Medical base)/3 mL DAILY [facility] nebulizer NEEDED FOR solution SHORTNESS OF BREATH ipratropium Yes USE 1 [facility] rs -albuteroL 7-13 AMPULE IN ity of 0.5 mg-3 00:00: [place] mg(2.5 mg 00 4 TIMES Medical base)/3 mL DAILY [facility] nebulizer NEEDED FOR solution SHORTNESS OF BREATH ipratropium 0 Yes USE 1 [facility] rs -albuteroL 7-13 AMPULE IN ity of 0.5 mg-3 00:00: [place] mg(2.5 mg 00 4 TIMES Medical base)/3 mL DAILY [facility] nebulizer NEEDED FOR solution SHORTNESS OF BREATH ipratropium Yes USE 1 [facility] rs -albuteroL 7-13 AMPULE IN ity of 0.5 mg-3 00:00: [place] mg(2.5 mg 00 4 TIMES Medical base)/3 mL DAILY [facility] nebulizer NEEDED FOR solution SHORTNESS OF BREATH ipratropium 0 Yes USE 1 [facility] rs -albuteroL 7-13 AMPULE IN ity of 0.5 mg-3 00:00: [place] mg(2.5 mg 00 4 TIMES Medical base)/3 mL DAILY [facility] nebulizer NEEDED FOR solution SHORTNESS OF BREATH ipratropium 0 Yes USE 1 [facility] rs -albuteroL 7-13 AMPULE IN ity of 0.5 mg-3 00:00: [place] mg(2.5 mg 00 4 TIMES Medical base)/3 mL DAILY [facility] nebulizer NEEDED FOR solution SHORTNESS OF BREATH ipratropium Yes USE 1 [facility] rs -albuteroL 7-13 AMPULE IN ity of 0.5 mg-3 00:00: [place] mg(2.5 mg 00 4 TIMES Medical base)/3 mL DAILY [facility] nebulizer NEEDED FOR solution SHORTNESS OF BREATH ipratropium 0 Yes USE 1 [facility] rs -albuteroL 7-13 AMPULE IN ity of 0.5 mg-3 00:00: [place] mg(2.5 mg 00 4 TIMES Medical base)/3 mL DAILY [facility] nebulizer NEEDED FOR solution SHORTNESS OF BREATH ipratropium Yes USE 1 [facility] rs -albuteroL 7-13 AMPULE IN ity of 0.5 mg-3 00:00: [place] mg(2.5 mg 00 4 TIMES Medical base)/3 mL DAILY [facility] nebulizer NEEDED FOR solution SHORTNESS OF BREATH ipratropium 0 Yes USE 1 [facility] rs -albuteroL 7-13 AMPULE IN ity of 0.5 mg-3 00:00: [place] mg(2.5 mg 00 4 TIMES Medical base)/3 mL DAILY [facility] nebulizer NEEDED FOR solution SHORTNESS OF BREATH ipratropium Yes USE 1 [facility] rs -albuteroL 7-13 AMPULE IN ity of 0.5 mg-3 00:00: [place] mg(2.5 mg 00 4 TIMES Medical base)/3 mL DAILY [facility] nebulizer NEEDED FOR solution SHORTNESS OF BREATH ipratropium 0 Yes USE 1 [facility] rs -albuteroL 7-13 AMPULE IN ity of 0.5 mg-3 00:00: [place] mg(2.5 mg 00 4 TIMES Medical base)/3 mL DAILY [facility] nebulizer NEEDED FOR solution SHORTNESS OF BREATH ipratropium 0 Yes USE 1 [facility] rs -albuteroL 7-13 AMPULE IN ity of 0.5 mg-3 00:00: [place] mg(2.5 mg 00 4 TIMES Medical base)/3 mL DAILY [facility] nebulizer NEEDED FOR solution SHORTNESS OF BREATH ipratropium Yes USE 1 [facility] rs -albuteroL 7-13 AMPULE IN ity of 0.5 mg-3 00:00: [place] mg(2.5 mg 00 4 TIMES Medical base)/3 mL DAILY [facility] nebulizer NEEDED FOR solution SHORTNESS OF BREATH ipratropium 0 Yes USE 1 [facility] rs -albuteroL 7-13 AMPULE IN ity of 0.5 mg-3 00:00: [place] mg(2.5 mg 00 4 TIMES Medical base)/3 mL DAILY [facility] nebulizer NEEDED FOR solution SHORTNESS OF BREATH ipratropium 0 Yes USE 1 [facility] rs -albuteroL 7-13 AMPULE IN ity of 0.5 mg-3 00:00: [place] mg(2.5 mg 00 4 TIMES Medical base)/3 mL DAILY [facility] nebulizer NEEDED FOR solution SHORTNESS OF BREATH ipratropium 0 Yes USE 1 [facility] rs -albuteroL 7-13 AMPULE IN ity of 0.5 mg-3 00:00: [place] mg(2.5 mg 00 4 TIMES Medical base)/3 mL DAILY [facility] nebulizer NEEDED FOR solution SHORTNESS OF BREATH ipratropium Yes USE 1 [facility] rs -albuteroL 7-13 AMPULE IN ity of 0.5 mg-3 00:00: [place] mg(2.5 mg 00 4 TIMES Medical base)/3 mL DAILY [facility] nebulizer NEEDED FOR solution SHORTNESS OF BREATH ipratropium 0 Yes USE 1 Un[facility] rs -albuteroL 7-13 AMPULE IN ity of 0.5 mg-3 00:00: [place] mg(2.5 mg 00 4 TIMES Medical base)/3 mL DAILY [facility] nebulizer NEEDED FOR solution SHORTNESS OF BREATH ipratropium 0 Yes USE 1 Unive rs -albuteroL 7-13 AMPULE IN ity of 0.5 mg-3 00:00: [place] mg(2.5 mg 00 4 TIMES Medical base)/3 mL DAILY [facility] nebulizer NEEDED FOR solution SHORTNESS OF BREATH ipratropium Yes USE 1 Unive rs -albuteroL 7-13 AMPULE IN ity of 0.5 mg-3 00:00: [place] mg(2.5 mg 00 4 TIMES Medical base)/3 mL DAILY [facility] nebulizer NEEDED FOR solution SHORTNESS OF BREATH ipratropium 0 Yes USE 1 Un[facility] rs -albuteroL 7-13 AMPULE IN ity of 0.5 mg-3 00:00: [place] mg(2.5 mg 00 4 TIMES Medical base)/3 mL DAILY [facility] nebulizer NEEDED FOR solution SHORTNESS OF BREATH ipratropium Yes USE 1 Unive rs -albuteroL 7-13 AMPULE IN ity of 0.5 mg-3 00:00: [place] mg(2.5 mg 00 4 TIMES Medical base)/3 mL DAILY [facility] nebulizer NEEDED FOR solution SHORTNESS OF BREATH ipratropium Yes USE 1 Unive rs -albuteroL 7-13 AMPULE IN ity of 0.5 mg-3 00:00: [place] mg(2.5 mg 00 4 TIMES Medical base)/3 mL DAILY [facility] nebulizer NEEDED FOR solution SHORTNESS OF BREATH ipratropium Yes USE 1 Unive rs -albuteroL 7-13 AMPULE IN ity of 0.5 mg-3 00:00: [place] mg(2.5 mg 00 4 TIMES Medical base)/3 mL DAILY [facility] nebulizer NEEDED FOR solution SHORTNESS OF BREATH ipratropium Yes USE 1 Unive rs -albuteroL 7-13 AMPULE IN ity of 0.5 mg-3 00:00: [place]ULIZ[place](2.5 mg 00 4 TIMES [facility])/3 mL DAILY [facility] [facility] nebulizer NEEDED FOR solution SHORTNESS OF BREATH ipratropium Yes USE 1 Unive rs -albuteroL 7-13 AMPULE IN ity of 0.5 mg-3 00:00: [place]ULIZ[place](2.5 mg 00 4 TIMES [facility])/3 mL DAILY [facility] [facility] nebulizer NEEDED FOR solution SHORTNESS OF BREATH ipratropium Yes USE 1 Unive rs -albuteroL 7-13 AMPULE IN ity of 0.5 mg-3 00:00: [place]ULIZ[place](2.5 mg 00 4 TIMES [facility])/3 mL DAILY [facility] nebulizer NEEDED FOR solution SHORTNESS OF BREATH ipratropium Yes USE 1 Unive rs -albuteroL 7-13 AMPULE IN [facility] of 0.5 mg-3 00:00: [place]ULIZER [place](2.5 mg 00 4 TIMES [facility])/3 mL DAILY [facility] [facility] nebulizer NEEDED FOR solution SHORTNESS OF BREATH ipratropium Yes USE 1 Unive rs -albuteroL 7-13 AMPULE IN [facility] of 0.5 mg-3 00:00: [place]ULIZ[place](2.5 mg 00 4 TIMES [facility])/3 mL DAILY [facility] [facility] nebulizer NEEDED FOR solution SHORTNESS OF BREATH ipratropium Yes USE 1 Unive rs -albuteroL 7-13 AMPULE IN it[facility] of 0.5 mg-3 00:00: [place]ULIZ[place](2.5 mg 00 4 TIMES [facility])/3 mL DAILY [facility] nebulizer NEEDED FOR solution SHORTNESS OF BREATH ipratropium Yes USE 1 Unive rs -albuteroL 7-13 AMPULE IN [facility] of 0.5 mg-3 00:00: [place]ULIZ[place](2.5 mg 00 4 TIMES [facility])/3 mL DAILY [facility] nebulizer NEEDED FOR solution SHORTNESS OF BREATH ipratropium Yes USE 1 Unive rs -albuteroL 7-13 AMPULE IN ity of 0.5 mg-3 00:00: [place]ULIZ[place](2.5 mg 00 4 TIMES [facility])/3 mL DAILY [facility] nebulizer NEEDED FOR solution SHORTNESS OF BREATH ipratropium Yes USE 1 Unive rs -albuteroL 7-13 AMPULE IN ity of 0.5 mg-3 00:00: [place] mg(2.5 mg 00 4 TIMES [facility])/3 mL DAILY [facility] nebulizer NEEDED FOR solution SHORTNESS OF BREATH ipratropium Yes USE 1 [facility] rs -albuteroL 7-13 AMPULE IN ity of 0.5 mg-3 00:00: [place]ULIZ[place] mg(2.5 mg 00 4 TIMES [facility])/3 mL DAILY [facility] nebulizer NEEDED FOR solution SHORTNESS OF BREATH ipratropium Yes USE 1 [facility] rs -albuteroL 7-13 AMPULE IN ity of 0.5 mg-3 00:00: [place]ULIZ[place] mg(2.5 mg 00 4 TIMES [facility])/3 mL DAILY [facility] nebulizer NEEDED FOR solution SHORTNESS OF BREATH ipratropium Yes USE 1 [facility] -albuteroL 7-13 AMPULE IN ity of 0.5 mg-3 00:00: [place]ULIZER [place] mg(2.5 mg 00 4 TIMES [facility])/3 mL DAILY [facility] nebulizer NEEDED FOR solution SHORTNESS OF BREATH ipratropium Yes USE 1 [facility] -albuteroL 7-13 AMPULE IN ity of 0.5 mg-3 00:00: [place]ULIZER [place] mg(2.5 mg 00 4 TIMES [facility] base)/3 mL DAILY [facility] nebulizer NEEDED FOR solution SHORTNESS OF BREATH ipratropium Yes USE 1 [facility] -albuteroL 7-13 AMPULE IN ity of 0.5 mg-3 00:00: [place]ULIZER [place] mg(2.5 mg 00 4 TIMES [facility])/3 mL DAILY [facility] nebulizer NEEDED FOR solution SHORTNESS OF BREATH ipratropium Yes USE 1 [facility] -albuteroL 7-13 AMPULE IN ity of 0.5 mg-3 00:00: [place]ULIZER [place] mg(2.5 mg 00 4 TIMES [facility])/3 mL DAILY [facility] nebulizer NEEDED FOR solution SHORTNESS OF BREATH ipratropium Yes USE 1 [facility] -albuteroL 7-13 AMPULE IN ity of 0.5 mg-3 00:00: [place]ULIZER [place] mg(2.5 mg 00 4 TIMES [facility])/3 mL DAILY [facility] nebulizer NEEDED FOR solution SHORTNESS OF BREATH ipratropium Yes USE 1 [facility] -albuteroL 7-13 AMPULE IN ity of 0.5 mg-3 00:00: [place]ULIZER [place] mg(2.5 mg 00 4 TIMES [facility])/3 mL DAILY [facility] nebulizer NEEDED FOR solution SHORTNESS OF BREATH ipratropium Yes USE 1 [facility] -albuteroL 7-13 AMPULE IN ity of 0.5 mg-3 00:00: [place]ULIZER [place] mg(2.5 mg 00 4 TIMES [facility] base)/3 mL DAILY [facility] nebulizer NEEDED FOR solution SHORTNESS OF BREATH ipratropium Yes USE 1 [facility] -albuteroL 7-13 AMPULE IN ity of 0.5 mg-3 00:00: [place]ULIZER [place] mg(2.5 mg 00 4 TIMES [facility])/3 mL DAILY [facility] nebulizer NEEDED FOR solution SHORTNESS OF BREATH ipratropium Yes USE 1 [facility] -albuteroL 7-13 AMPULE IN ity of 0.5 mg-3 00:00: [place]ULIZ[place] mg(2.5 mg 00 4 TIMES [facility])/3 mL DAILY [facility] nebulizer NEEDED FOR solution SHORTNESS OF BREATH ipratropium Yes USE 1 [facility] -albuteroL 7-13 AMPULE IN ity of 0.5 mg-3 00:00: [place]ULIZER [place] mg(2.5 mg 00 4 TIMES [facility])/3 mL DAILY [facility] nebulizer NEEDED FOR solution SHORTNESS OF BREATH ipratropium Yes USE 1 [facility] -albuteroL 7-13 AMPULE IN ity of 0.5 mg-3 00:00: [place]ULIZER [place] mg(2.5 mg 00 4 TIMES [facility])/3 mL DAILY [facility] nebulizer NEEDED FOR solution SHORTNESS OF BREATH ipratropium Yes USE 1 [facility] -albuteroL 7-13 AMPULE IN ity of 0.5 mg-3 00:00: [place]ULIZER [place] mg(2.5 mg 00 4 TIMES [facility])/3 mL DAILY [facility] nebulizer NEEDED FOR solution SHORTNESS OF BREATH ipratropium Yes USE 1 [facility] -albuteroL 7-13 AMPULE IN ity of 0.5 mg-3 00:00: [place]ULIZER [place] mg(2.5 mg 00 4 TIMES [facility])/3 mL DAILY [facility] nebulizer NEEDED FOR solution SHORTNESS OF BREATH ipratropium Yes USE 1 [facility] -albuteroL 7-13 AMPULE IN ity of 0.5 mg-3 00:00: [place]ULIZER [place] mg(2.5 mg 00 4 TIMES [facility])/3 mL DAILY [facility] nebulizer NEEDED FOR solution SHORTNESS OF BREATH ipratropium 0 Yes USE 1 [facility] -albuteroL 7-13 AMPULE IN ity of 0.5 mg-3 00:00: [place]ULIZER [place] mg(2.5 mg 00 4 TIMES [facility])/3 mL DAILY [facility] nebulizer NEEDED FOR solution SHORTNESS OF BREATH ipratropium 0 Yes USE 1 [facility] -albuteroL 7-13 AMPULE IN ity of 0.5 mg-3 00:00: [place]ULIZER [place] mg(2.5 mg 00 4 TIMES [facility])/3 mL DAILY [facility] nebulizer NEEDED FOR solution SHORTNESS OF BREATH ipratropium 0 Yes USE 1 [facility] rs -albuteroL 7-13 AMPULE IN ity of 0.5 mg-3 00:00: [place]ULIZER [place] mg(2.5 mg 00 4 TIMES [facility])/3 mL DAILY [facility] nebulizer NEEDED FOR solution SHORTNESS OF BREATH ipratropium 0 Yes USE 1 [facility] -albuteroL 7-13 AMPULE IN ity of 0.5 mg-3 00:00: [place]ULIZER [place] mg(2.5 mg 00 4 TIMES [facility])/3 mL DAILY [facility] nebulizer NEEDED FOR solution SHORTNESS OF BREATH ipratropium 0 Yes USE 1 [facility] -albuteroL 7-13 AMPULE IN ity of 0.5 mg-3 00:00: [place]ULIZER [place] mg(2.5 mg 00 4 TIMES [facility])/3 mL DAILY [facility] nebulizer NEEDED FOR solution SHORTNESS OF BREATH ipratropium 0 Yes USE 1 [facility] rs -albuteroL 7-13 AMPULE IN ity of 0.5 mg-3 00:00: [place]ULIZER [place] mg(2.5 mg 00 4 TIMES [facility])/3 mL DAILY [facility] nebulizer NEEDED FOR solution SHORTNESS OF BREATH ipratropium 0 Yes USE 1 [facility] rs -albuteroL 7-13 AMPULE IN ity of 0.5 mg-3 00:00: [place]ULIZER [place] mg(2.5 mg 00 4 TIMES [facility] base)/3 mL DAILY [facility] nebulizer NEEDED FOR solution SHORTNESS OF BREATH ipratropium Yes USE 1 [facility] rs -albuteroL 7-13 AMPULE IN ity of 0.5 mg-3 00:00: [place]ULIZER [place] mg(2.5 mg 00 4 TIMES [facility])/3 mL DAILY [facility] nebulizer NEEDED FOR solution SHORTNESS OF BREATH ipratropium 0 Yes USE 1 [facility] rs -albuteroL 7-13 AMPULE IN ity of 0.5 mg-3 00:00: [place]ULIZER [place] mg(2.5 mg 00 4 TIMES [facility])/3 mL DAILY [facility] nebulizer NEEDED FOR solution SHORTNESS OF BREATH ipratropium 0 Yes USE 1 [facility] rs -albuteroL 7-13 AMPULE IN ity of 0.5 mg-3 00:00: [place]ULIZER [place] mg(2.5 mg 00 4 TIMES [facility])/3 mL DAILY [facility] nebulizer NEEDED FOR solution SHORTNESS OF BREATH ipratropium 0 Yes USE 1 [facility] rs -albuteroL 7-13 AMPULE IN ity of 0.5 mg-3 00:00: [place]ULIZER [place] mg(2.5 mg 00 4 TIMES [facility])/3 mL DAILY [facility] nebulizer NEEDED FOR solution SHORTNESS OF BREATH ipratropium Yes USE 1 [facility] rs -albuteroL 7-13 AMPULE IN ity of 0.5 mg-3 00:00: [place]ULIZER [place] mg(2.5 mg 00 4 TIMES [facility])/3 mL DAILY [facility] nebulizer NEEDED FOR solution SHORTNESS OF BREATH ipratropium Yes USE 1 [facility] rs -albuteroL 7-13 AMPULE IN ity of 0.5 mg-3 00:00: [place]ULIZER [place] mg(2.5 mg 00 4 TIMES [facility])/3 mL DAILY [facility] nebulizer NEEDED FOR solution SHORTNESS OF BREATH ipratropium 0 Yes USE 1 [facility] rs -albuteroL 7-13 AMPULE IN ity of 0.5 mg-3 00:00: [place]ULIZER [place] mg(2.5 mg 00 4 TIMES [facility])/3 mL DAILY [facility] nebulizer NEEDED FOR solution SHORTNESS OF BREATH ipratropium 2022-0 Yes USE 1 [facility] rs -albuteroL 7-13 AMPULE IN ity of 0.5 mg-3 00:00: NE[place]ULIZER [place] mg(2.5 mg 00 4 TIMES [facility])/3 mL DAILY [facility] nebulizer NEEDED FOR solution SHORTNESS OF BREATH ipratropium Yes USE 1 [facility] rs -albuteroL 7-13 AMPULE IN ity of 0.5 mg-3 00:00: [place]ULIZER [place] mg(2.5 mg 00 4 TIMES [facility] base)/3 mL DAILY [facility] nebulizer NEEDED FOR solution SHORTNESS OF BREATH ipratropium Yes USE 1 [facility] rs -albuteroL 7-13 AMPULE IN ity of 0.5 mg-3 00:00: NE[place]ULIZER [place] mg(2.5 mg 00 4 TIMES [facility] base)/3 mL DAILY [facility] nebulizer NEEDED FOR solution SHORTNESS OF BREATH ipratropium Yes USE 1 [facility] rs -albuteroL 7-13 AMPULE IN ity of 0.5 mg-3 00:00: [place]ULIZER [place] mg(2.5 mg 00 4 TIMES [facility])/3 mL DAILY [facility] nebulizer NEEDED FOR solution SHORTNESS OF BREATH flash 0 Yes [id number] 1U 1 Units [facility] glucose 5-02 SEE-INSTRU ity of scanning 00:00: CTIONS. [place] reader 00 Use per Medical (FREESTYLE device Branch CHON 2 instructio READER) ns [facility] flash 0 Yes [id number] 1U 1 Units [facility] glucose 5-02 SEE-INSTRU ity of scanning 00:00: CTIONS. [place] reader 00 Use per Medical (FREESTYLE device Branch CHON 2 instructio READER) ns Misc flash 2021-0 Yes [id number] 1U 1 Units [facility] glucose 5-02 SEE-INSTRU ity of scanning 00:00: CTIONS. [place] reader 00 Use per Medical (FREESTYLE device Branch CHON 2 instructio READER) ns [facility] flash 2021-0 Yes [id number] 1U 1 Units [facility] glucose 5-02 SEE-INSTRU ity of scanning 00:00: CTIONS. [place] reader 00 Use per Medical (FREESTYLE device Branch CHON 2 instructio READER) ns [facility] flash 2021-0 Yes [id number] 1U 1 Units [facility] glucose 5-02 SEE-INSTRU ity of scanning 00:00: CTIONS. [place] reader 00 Use per Medical (FREESTYLE device Branch CHON 2 instructio READER) ns Misc flash 2021-0 Yes [id number] 1U 1 Units [facility] glucose 5-02 SEE-INSTRU ity of scanning 00:00: CTIONS. [place] reader 00 Use per Medical (FREESTYLE device Branch CHON 2 instructio READER) ns Misc flash 2021-0 Yes [id number] 1U 1 Units [facility] glucose 5-02 SEE-INSTRU ity of scanning 00:00: CTIONS. [place] reader 00 Use per Medical (FREESTYLE device Branch CHON 2 instructio READER) ns Misc flash 2021-0 Yes [id number] 1U 1 Units [facility] glucose 5-02 SEE-INSTRU ity of scanning 00:00: CTIONS. [place] reader 00 Use per Medical (FREESTYLE device Branch CHON 2 instructio READER) ns Misc flash 2021-0 Yes [id number] 1U 1 Units [facility] glucose 5-02 SEE-INSTRU ity of scanning 00:00: CTIONS. [place] reader 00 Use per Medical (FREESTYLE device Branch CHON 2 instructio READER) ns Misc flash 2021-0 Yes [id number] 1U 1 Units [facility] glucose 5-02 SEE-INSTRU ity of scanning 00:00: CTIONS. [place] reader 00 Use per Medical (FREESTYLE device Branch CHON 2 instructio READER) ns Misc flash 2021-0 Yes [id number] 1U 1 Units [facility] glucose 5-02 SEE-INSTRU ity of scanning 00:00: CTIONS. [place] reader 00 Use per Medical (FREESTYLE device Branch CHON 2 instructio READER) ns Misc flash 2021-0 Yes [id number] 1U 1 Units [facility] glucose 5-02 SEE-INSTRU ity of scanning 00:00: CTIONS. [place] reader 00 Use per Medical (FREESTYLE device Branch CHON 2 instructio READER) ns Misc flash 0 2021- No [id number] 1U 1 Units [facility] rs glucose 5-02 - SEE-INSTRU ity o f scanning 00:00: 00:00 CTIONS. [place] reader 00 :00 Use per Medical (FREESTYLE device Branch CHON 2 instructio READER) ns [facility] flash 2021- No [id number] 1U 1 Units Un[facility] rs glucose 03-24 SEE-INSTRU ity o f scanning 00:00: 00:00 CTIONS. [place] reader 00 :00 Use per Medical (FREESTYLE device Branch CHON 2 instructio READER) ns [facility] atorvastati Yes [id number] 80mg Take 1 [facility] n 80 mg 4-28 tablet by ity of tablet 00:00: mouth at [place] 00 bedtime. Medical Branch KCL 20 mEq Yes [id number] 20meq Take 1 [facility] tablet 4-28 tablet by ity of 00:00: mouth [place] 00 daily. Medical Branch metoprolol Yes [id number] 50mg Take 1 U nivers succinate 4-28 tablet by ity o f XL 50 mg 24 00:00: mouth [place] hr tablet 00 daily. Medical Branch nitroglycer Yes [id number] .4mg Place 1 [facility] in 0.4 mg 4-28 tablet ity of sublingual 00:00: under the [place] tablet 00 tongue Medical every 5 Branch (five) minutes as needed for Chest pain. levothyroxi Yes [id number] 150ug Take 1 [facility] ne 150 mcg 4-28 tablet by ity of tablet 00:00: mouth [place] 00 every Medical morning. Branch atorvastati Yes [id number] 80mg Take 1 [facility] n 80 mg 4-28 tablet by ity of tablet 00:00: mouth at [place] 00 bedtime. Medical Branch KCL 20 mEq Yes [id number] 20meq Take 1 [facility] tablet 4-28 tablet by ity of 00:00: mouth [place] 00 daily. Medical Branch metoprolol Yes [id number] 50mg Take 1 U nivers succinate 4-28 tablet by ity o f XL 50 mg 24 00:00: mouth [place] hr tablet 00 daily. Medical Branch nitroglycer Yes [id number] .4mg Place 1 [facility] in 0.4 mg 4-28 tablet ity of sublingual 00:00: under the [place] tablet 00 tongue Medical every 5 Branch (five) minutes as needed for Chest pain. levothyroxi Yes [id number] 150ug Take 1 [facility] ne 150 mcg 4-28 tablet by ity of tablet 00:00: mouth [place] 00 every Medical morning. Branch atorvastati Yes [id number] 80mg Take 1 [facility] n 80 mg 4-28 tablet by ity of tablet 00:00: mouth at [place] 00 bedtime. Medical Branch KCL 20 mEq 0 Yes [id number] 20meq Take 1 [facility] tablet 4-28 tablet by ity of 00:00: mouth [place] 00 daily. Medical Branch metoprolol Yes [id number] 50mg Take 1 U nivers succinate 4-28 tablet by ity o f XL 50 mg 24 00:00: mouth [place] hr tablet 00 daily. Medical Branch nitroglycer Yes [id number] .4mg Place 1 [facility] in 0.4 mg 4-28 tablet ity of sublingual 00:00: under the [place] tablet 00 tongue Medical every 5 Branch (five) minutes as needed for Chest pain. levothyroxi Yes [id number] 150ug Take 1 [facility] ne 150 mcg 4-28 tablet by ity of tablet 00:00: mouth [place] 00 every Medical morning. Branch atorvastati Yes [id number] 80mg Take 1 [facility] n 80 mg 4-28 tablet by ity of tablet 00:00: mouth at [place] 00 bedtime. Medical Branch KCL 20 mEq 0 Yes [id number] 20meq Take 1 [facility] tablet 4-28 tablet by ity of 00:00: mouth [place] 00 daily. Medical Branch metoprolol Yes [id number] 50mg Take 1 U nivers succinate 4-28 tablet by ity o f XL 50 mg 24 00:00: mouth [place] hr tablet 00 daily. Medical Branch nitroglycer Yes [id number] .4mg Place 1 [facility] in 0.4 mg 4-28 tablet ity of sublingual 00:00: under the [place] tablet 00 tongue Medical every 5 Branch (five) minutes as needed for Chest pain. levothyroxi Yes [id number] 150ug Take 1 [facility] ne 150 mcg 4-28 tablet by ity of tablet 00:00: mouth [place] 00 every Medical morning. Branch atorvastati Yes [id number] 80mg Take 1 [facility] n 80 mg 4-28 tablet by ity of tablet 00:00: mouth at [place] 00 bedtime. Medical Branch KCL 20 mEq Yes [id number] 20meq Take 1 [facility] tablet 4-28 tablet by ity of 00:00: mouth [place] 00 daily. Medical Branch metoprolol Yes [id number] 50mg Take 1 U nivers succinate 4-28 tablet by ity o f XL 50 mg 24 00:00: mouth [place] hr tablet 00 daily. Medical Branch nitroglycer Yes [id number] .4mg Place 1 [facility] in 0.4 mg 4-28 tablet ity of sublingual 00:00: under the [place] tablet 00 tongue Medical every 5 Branch (five) minutes as needed for Chest pain. levothyroxi Yes [id number] 150ug Take 1 [facility] ne 150 mcg 4-28 tablet by ity of tablet 00:00: mouth [place] 00 every Medical morning. Branch atorvastati Yes [id number] 80mg Take 1 [facility] n 80 mg 4-28 tablet by ity of tablet 00:00: mouth at [place] 00 bedtime. Medical Branch KCL 20 mEq Yes [id number] 20meq Take 1 [facility] tablet 4-28 tablet by ity of 00:00: mouth [place] 00 daily. Medical Branch metoprolol Yes [id number] 50mg Take 1 U nivers succinate 4-28 tablet by ity o f XL 50 mg 24 00:00: mouth [place] hr tablet 00 daily. Medical Branch nitroglycer Yes [id number] .4mg Place 1 [facility] in 0.4 mg 4-28 tablet ity of sublingual 00:00: under the [place] tablet 00 tongue Medical every 5 Branch (five) minutes as needed for Chest pain. levothyroxi Yes [id number] 150ug Take 1 [facility] ne 150 mcg 4-28 tablet by ity of tablet 00:00: mouth [place] 00 every Medical morning. Branch atorvastati Yes [id number] 80mg Take 1 [facility] n 80 mg 4-28 tablet by ity of tablet 00:00: mouth at [place] 00 bedtime. Medical Branch KCL 20 mEq Yes [id number] 20meq Take 1 [facility] tablet 4-28 tablet by ity of 00:00: mouth [place] 00 daily. Medical Branch metoprolol Yes [id number] 50mg Take 1 U nivers succinate 4-28 tablet by ity o f XL 50 mg 24 00:00: mouth [place] hr tablet 00 daily. Medical Branch nitroglycer Yes [id number] .4mg Place 1 [facility] in 0.4 mg 4-28 tablet ity of sublingual 00:00: under the [place] tablet 00 tongue Medical every 5 Branch (five) minutes as needed for Chest pain. levothyroxi Yes [id number] 150ug Take 1 [facility] ne 150 mcg 4-28 tablet by ity of tablet 00:00: mouth [place] 00 every Medical morning. Branch atorvastati Yes [id number] 80mg Take 1 [facility] n 80 mg 4-28 tablet by ity of tablet 00:00: mouth at [place] 00 bedtime. Medical Branch KCL 20 mEq Yes [id number] 20meq Take 1 Univers tablet 4-28 tablet by ity of 00:00: mouth [place] 00 daily. Medical Branch metoprolol Yes [id number] 50mg Take 1 U nivers succinate 4-28 tablet by ity o f XL 50 mg 24 00:00: mouth [place] hr tablet 00 daily. Medical Branch nitroglycer Yes [id number] .4mg Place 1 Univers in 0.4 mg 4-28 tablet ity of sublingual 00:00: under the [place] tablet 00 tongue Medical every 5 Branch (five) minutes as needed for Chest pain. levothyroxi Yes [id number] 150ug Take 1 [facility] ne 150 mcg 4-28 tablet by ity of tablet 00:00: mouth [place] 00 every Medical morning. Branch atorvastati Yes [id number] 80mg Take 1 [facility] n 80 mg 4-28 tablet by ity of tablet 00:00: mouth at [place] 00 bedtime. Medical Branch KCL 20 mEq 0 Yes [id number] 20meq Take 1 [facility] tablet 4-28 tablet by ity of 00:00: mouth [place] 00 daily. Medical Branch metoprolol Yes [id number] 50mg Take 1 U nivers succinate 4-28 tablet by ity o f XL 50 mg 24 00:00: mouth [place] hr tablet 00 daily. Medical Branch nitroglycer Yes [id number] .4mg Place 1 [facility] in 0.4 mg 4-28 tablet ity of sublingual 00:00: under the [place] tablet 00 tongue Medical every 5 Branch (five) minutes as needed for Chest pain. levothyroxi Yes [id number] 150ug Take 1 [facility] ne 150 mcg 4-28 tablet by ity of tablet 00:00: mouth [place] 00 every Medical morning. Branch atorvastati Yes [id number] 80mg Take 1 [facility] n 80 mg 4-28 tablet by ity of tablet 00:00: mouth at [place] 00 bedtime. Medical Branch KCL 20 mEq Yes [id number] 20meq Take 1 [facility] tablet 4-28 tablet by ity of 00:00: mouth [place] 00 daily. Medical Branch metoprolol Yes [id number] 50mg Take 1 U nivers succinate 4-28 tablet by ity o f XL 50 mg 24 00:00: mouth [place] hr tablet 00 daily. Medical Branch nitroglycer Yes [id number] .4mg Place 1 [facility] in 0.4 mg 4-28 tablet ity of sublingual 00:00: under the [place] tablet 00 tongue Medical every 5 Branch (five) minutes as needed for Chest pain. levothyroxi Yes [id number] 150ug Take 1 [facility] ne 150 mcg 4-28 tablet by ity of tablet 00:00: mouth [place] 00 every Medical morning. Branch atorvastati Yes [id number] 80mg Take 1 [facility] n 80 mg 4-28 tablet by ity of tablet 00:00: mouth at [place] 00 bedtime. Medical Branch KCL 20 mEq Yes [id number] 20meq Take 1 [facility] tablet 4-28 tablet by ity of 00:00: mouth [place] 00 daily. Medical Branch metoprolol Yes [id number] 50mg Take 1 U nivers succinate 4-28 tablet by ity o f XL 50 mg 24 00:00: mouth [place] hr tablet 00 daily. Medical Branch nitroglycer Yes [id number] .4mg Place 1 [facility] in 0.4 mg 4-28 tablet ity of sublingual 00:00: under the [place] tablet 00 tongue Medical every 5 Branch (five) minutes as needed for Chest pain. levothyroxi Yes [id number] 150ug Take 1 [facility] ne 150 mcg 4-28 tablet by ity of tablet 00:00: mouth [place] 00 every Medical morning. Branch atorvastati Yes [id number] 80mg Take 1 [facility] n 80 mg 4-28 tablet by ity of tablet 00:00: mouth at [place] 00 bedtime. Medical Branch KCL 20 mEq 0 Yes [id number] 20meq Take 1 Univers tablet 4-28 tablet by ity of 00:00: mouth [place] 00 daily. Medical Branch metoprolol Yes [id number] 50mg Take 1 U nivers succinate 4-28 tablet by ity o f XL 50 mg 24 00:00: mouth [place] hr tablet 00 daily. Medical Branch nitroglycer Yes [id number] .4mg Place 1 [facility] in 0.4 mg 4-28 tablet ity of sublingual 00:00: under the [place] tablet 00 tongue Medical every 5 Branch (five) minutes as needed for Chest pain. levothyroxi Yes [id number] 150ug Take 1 [facility] ne 150 mcg 4-28 tablet by ity of tablet 00:00: mouth [place] 00 every Medical morning. Branch atorvastati Yes [id number] 80mg Take 1 [facility] n 80 mg 4-28 tablet by ity of tablet 00:00: mouth at [place] 00 bedtime. Medical Branch KCL 20 mEq 0 Yes [id number] 20meq Take 1 [facility] tablet 4-28 tablet by ity of 00:00: mouth [place] 00 daily. Medical Branch metoprolol 0 Yes [id number] 50mg Take 1 U nivers succinate 4-28 tablet by ity o f XL 50 mg 24 00:00: mouth [place] hr tablet 00 daily. Medical Branch nitroglycer [id number] 1 [facility] in 0.4 mg 4-28 tablet ity of sublingual 00:00: under the [place] tablet 00 tongue Medical every 5 Branch (five) minutes as needed for Chest pain. levothyroxi 0 Yes [id number] 150ug Take 1 [facility] ne 150 mcg 4-28 tablet by ity of tablet 00:00: mouth [place] 00 every Medical morning. Branch atorvastati Yes [id number] 80mg Take 1 [facility] n 80 mg 4-28 tablet by ity of tablet 00:00: mouth at [place] 00 bedtime. Medical Branch KCL 20 mEq Yes [id number] 20meq Take 1 Univers tablet 4-28 tablet by ity of 00:00: mouth [place] 00 daily. Medical Branch metoprolol Yes [id number] 50mg Take 1 U nivers succinate 4-28 tablet by ity o f XL 50 mg 24 00:00: mouth [place] hr tablet 00 daily. Medical Branch nitroglycer Yes [id number] .4mg Place 1 Univers in 0.4 mg 4-28 tablet ity of sublingual 00:00: under the [place] tablet 00 tongue Medical every 5 Branch (five) minutes as needed for Chest pain. levothyroxi Yes [id number] 150ug Take 1 [facility] ne 150 mcg 4-28 tablet by ity of tablet 00:00: mouth [place] 00 every Medical morning. Branch atorvastati Yes [id number] 80mg Take 1 [facility] n 80 mg 4-28 tablet by ity of tablet 00:00: mouth at [place] 00 bedtime. Medical Branch KCL 20 mEq Yes [id number] 20meq Take 1 [facility] tablet 4-28 tablet by ity of 00:00: mouth [place] 00 daily. Medical Branch metoprolol Yes [id number] 50mg Take 1 U nivers succinate 4-28 tablet by ity o f XL 50 mg 24 00:00: mouth [place] hr tablet 00 daily. Medical Branch nitroglycer Yes [id number] .4mg Place 1 [facility] in 0.4 mg 4-28 tablet ity of sublingual 00:00: under the [place] tablet 00 tongue Medical every 5 Branch (five) minutes as needed for Chest pain. levothyroxi Yes [id number] 150ug Take 1 [facility] ne 150 mcg 4-28 tablet by ity of tablet 00:00: mouth [place] 00 every Medical morning. Branch atorvastati Yes [id number] 80mg Take 1 [facility] n 80 mg 4-28 tablet by ity of tablet 00:00: mouth at [place] 00 bedtime. Medical Branch KCL 20 mEq 0 Yes [id number] 20meq Take 1 [facility] tablet 4-28 tablet by ity of 00:00: mouth [place] 00 daily. Medical Branch metoprolol Yes [id number] 50mg Take 1 U nivers succinate 4-28 tablet by ity o f XL 50 mg 24 00:00: mouth [place] hr tablet 00 daily. Medical Branch nitroglycer Yes [id number] .4mg Place 1 [facility] in 0.4 mg 4-28 tablet ity of sublingual 00:00: under the [place] tablet 00 tongue Medical every 5 Branch (five) minutes as needed for Chest pain. levothyroxi Yes [id number] 150ug Take 1 [facility] ne 150 mcg 4-28 tablet by ity of tablet 00:00: mouth [place] 00 every Medical morning. Branch atorvastati Yes [id number] 80mg Take 1 [facility] n 80 mg 4-28 tablet by ity of tablet 00:00: mouth at [place] 00 bedtime. Medical Branch KCL 20 mEq 0 Yes [id number] 20meq Take 1 [facility] tablet 4-28 tablet by ity of 00:00: mouth [place] 00 daily. Medical Branch metoprolol Yes [id number] 50mg Take 1 U nivers succinate 4-28 tablet by ity o f XL 50 mg 24 00:00: mouth [place] hr tablet 00 daily. Medical Branch nitroglycer [id number] 1 [facility] in 0.4 mg 4-28 tablet ity of sublingual 00:00: under the [place] tablet 00 tongue Medical every 5 Branch (five) minutes as needed for Chest pain. levothyroxi 0 Yes [id number] 150ug Take 1 [facility] ne 150 mcg 4-28 tablet by ity of tablet 00:00: mouth [place] 00 every Medical morning. Branch atorvastati 0 Yes [id number] 80mg Take 1 [facility] n 80 mg 4-28 tablet by ity of tablet 00:00: mouth at [place] 00 bedtime. Medical Branch KCL 20 mEq 0 Yes [id number] 20meq Take 1 [facility] tablet 4-28 tablet by ity of 00:00: mouth [place] 00 daily. Medical Branch metoprolol Yes [id number] 50mg Take 1 U nivers succinate 4-28 tablet by ity o f XL 50 mg 24 00:00: mouth [place] hr tablet 00 daily. Medical Branch nitroglycer Yes [id number] .4mg Place 1 [facility] in 0.4 mg 4-28 tablet ity of sublingual 00:00: under the [place] tablet 00 tongue Medical every 5 Branch (five) minutes as needed for Chest pain. levothyroxi Yes [id number] 150ug Take 1 [facility] ne 150 mcg 4-28 tablet by ity of tablet 00:00: mouth [place] 00 every Medical morning. Branch atorvastati Yes [id number] 80mg Take 1 [facility] n 80 mg 4-28 tablet by ity of tablet 00:00: mouth at [place] 00 bedtime. Medical Branch KCL 20 mEq Yes [id number] 20meq Take 1 [facility] tablet 4-28 tablet by ity of 00:00: mouth [place] 00 daily. Medical Branch metoprolol Yes [id number] 50mg Take 1 U nivers succinate 4-28 tablet by ity o f XL 50 mg 24 00:00: mouth [place] hr tablet 00 daily. Medical Branch nitroglycer Yes [id number] .4mg Place 1 [facility] in 0.4 mg 4-28 tablet ity of sublingual 00:00: under the [place] tablet 00 tongue Medical every 5 Branch (five) minutes as needed for Chest pain. levothyroxi Yes [id number] 150ug Take 1 [facility] ne 150 mcg 4-28 tablet by ity of tablet 00:00: mouth [place] 00 every Medical morning. Branch atorvastati Yes [id number] 80mg Take 1 [facility] n 80 mg 4-28 tablet by ity of tablet 00:00: mouth at [place] 00 bedtime. Medical Branch KCL 20 mEq Yes [id number] 20meq Take 1 [facility] tablet 4-28 tablet by ity of 00:00: mouth [place] 00 daily. Medical Branch metoprolol Yes [id number] 50mg Take 1 U nivers succinate 4-28 tablet by [facility] o f XL 50 mg 24 00:00: mouth [place] hr tablet 00 daily. [facility] nitroglycer Yes [id number] .4mg Place 1 [facility] in 0.4 mg 4-28 tablet [facility] of sublingual 00:00: under the [place] tablet 00 tongue Medical every 5 Branch (five) minutes as needed for Chest pain. levothyroxi Yes [id number] 150ug Take 1 [facility] ne 150 mcg 4-28 tablet by [facility] tablet 00:00: mouth [place] 00 every Medical morning. Branch atorvastati Yes [id number] 80mg Take 1 [facility] n 80 mg 4-28 tablet by [facility] tablet 00:00: mouth at [place] 00 bedtime. [facility] KCL 20 mEq Yes [id number] 20meq Take 1 [facility] tablet 4-28 tablet by [facility] of 00:00: mouth [place] 00 daily. [facility] metoprolol Yes [id number] 50mg Take 1 [facility] succinate 4-28 tablet by [facility] o f XL 50 mg 24 00:00: mouth [place] hr tablet 00 daily. [facility] nitroglycer Yes [id number] .4mg Place 1 [facility] in 0.4 mg 4-28 tablet [facility] sublingual 00:00: under the [place] tablet 00 tongue Medical every 5 Branch (five) minutes as needed for Chest pain. levothyroxi Yes [id number] 150ug Take 1 [facility] ne 150 mcg 4-28 tablet by [facility] of tablet 00:00: mouth [place] 00 every Medical morning. Branch atorvastati Yes [id number] 80mg Take 1 [facility] n 80 mg 4-28 tablet by [facility] of tablet 00:00: mouth at [place] 00 bedtime. [facility] KCL 20 mEq 0 Yes [id number] 20meq Take 1 [facility] tablet 4-28 tablet by [facility] of 00:00: mouth [place] 00 daily. [facility] metoprolol Yes [id number] 50mg Take 1 [facility] succinate 4-28 tablet by [facility] o f XL 50 mg 24 00:00: mouth [place] hr tablet 00 daily. [facility] nitroglycer Yes [id number] .4mg Place 1 [facility] in 0.4 mg 4-28 tablet [facility] sublingual 00:00: under the [place] tablet 00 tongue Medical every 5 Branch (five) minutes as needed for Chest pain. levothyroxi Yes [id number] 150ug Take 1 [facility] ne 150 mcg 4-28 tablet by [facility] of tablet 00:00: mouth [place] 00 every Medical morning. Branch atorvastati Yes [id number] 80mg Take 1 [facility] n 80 mg 4-28 tablet by [facility] tablet 00:00: mouth at [place] 00 bedtime. [facility] KCL 20 mEq 0 Yes [id number] 20meq Take 1 [facility] tablet 4-28 tablet by [facility] of 00:00: mouth [place] 00 daily. [facility] metoprolol Yes [id number] 50mg Take 1 [facility] succinate 4-28 tablet by [facility] o f XL 50 mg 24 00:00: mouth [place] hr tablet 00 daily. [facility] nitroglycer Yes [id number] .4mg Place 1 [facility] in 0.4 mg 4-28 tablet [facility] sublingual 00:00: under the [place] tablet 00 tongue Medical every 5 Branch (five) minutes as needed for Chest pain. levothyroxi Yes [id number] 150ug Take 1 [facility] ne 150 mcg 4-28 tablet by [facility] tablet 00:00: mouth [place] 00 every Medical morning. Branch atorvastati Yes [id number] 80mg Take 1 [facility] n 80 mg 4-28 tablet by [facility] of tablet 00:00: mouth at [place] 00 bedtime. [facility] KCL 20 mEq 0 Yes [id number] 20meq Take 1 [facility] tablet 4-28 tablet by [facility] of 00:00: mouth [place] 00 daily. [facility] metoprolol Yes [id number] 50mg Take 1 [facility] succinate 4-28 tablet by [facility] o f XL 50 mg 24 00:00: mouth [place] hr tablet 00 daily. [facility] nitroglycer Yes [id number] .4mg Place 1 [facility] in 0.4 mg 4-28 tablet [facility] sublingual 00:00: under the [place] tablet 00 tongue Medical every 5 Branch (five) minutes as needed for Chest pain. levothyroxi Yes [id number] 150ug Take 1 [facility] ne 150 mcg 4-28 tablet by [facility] of tablet 00:00: mouth [place] 00 every Medical morning. Branch atorvastati Yes [id number] 80mg Take 1 [facility] n 80 mg 4-28 tablet by [facility] of tablet 00:00: mouth at [place] 00 bedtime. [facility] KCL 20 mEq Yes [id number] 20meq Take 1 [facility] tablet 4-28 tablet by [facility] of 00:00: mouth [place] 00 daily. [facility] metoprolol Yes [id number] 50mg Take 1 [facility] succinate 4-28 tablet by [facility] o f XL 50 mg 24 00:00: mouth [place] hr tablet 00 daily. [facility] nitroglycer Yes [id number] .4mg Place 1 [facility] in 0.4 mg 4-28 tablet [facility] sublingual 00:00: under the [place] tablet 00 tongue Medical every 5 Branch (five) minutes as needed for Chest pain. levothyroxi Yes [id number] 150ug Take 1 [facility] ne 150 mcg 4-28 tablet by [facility] of tablet 00:00: mouth [place] 00 every Medical morning. Branch atorvastati Yes [id number] 80mg Take 1 [facility] n 80 mg 4-28 tablet by [facility] of tablet 00:00: mouth at [place] 00 bedtime. [facility] KCL 20 mEq Yes [id number] 20meq Take 1 [facility] tablet 4-28 tablet by [facility] of 00:00: mouth [place] 00 daily. [facility] metoprolol Yes [id number] 50mg Take 1 [facility] succinate 4-28 tablet by [facility] o f XL 50 mg 24 00:00: mouth [place] hr tablet 00 daily. [facility] nitroglycer Yes [id number] .4mg Place 1 [facility] in 0.4 mg 4-28 tablet [facility] sublingual 00:00: under the [place] tablet 00 tongue Medical every 5 Branch (five) minutes as needed for Chest pain. levothyroxi Yes [id number] 150ug Take 1 [facility] ne 150 mcg 4-28 tablet by [facility] of tablet 00:00: mouth [place] 00 every Medical morning. Branch atorvastati Yes [id number] 80mg Take 1 [facility] n 80 mg 4-28 tablet by [facility] of tablet 00:00: mouth at [place] 00 bedtime. [facility] KCL 20 mEq Yes [id number] 20meq Take 1 [facility] tablet 4-28 tablet by [facility] of 00:00: mouth [place] 00 daily. [facility] metoprolol Yes [id number] 50mg Take 1 [facility] n[facility] succinate 4-28 tablet by [facility] o f XL 50 mg 24 00:00: mouth [place] hr tablet 00 daily. [facility] nitroglycer Yes [id number] .4mg Place 1 [facility] in 0.4 mg 4-28 tablet [facility] of sublingual 00:00: under the [place] tablet 00 tongue Medical every 5 Branch (five) minutes as needed for Chest pain. levothyroxi Yes [id number] 150ug Take 1 [facility] ne 150 mcg 4-28 tablet by [facility] of tablet 00:00: mouth [place] 00 every Medical morning. Branch atorvastati Yes [id number] 80mg Take 1 [facility] n 80 mg 4-28 tablet by [facility] of tablet 00:00: mouth at [place] 00 bedtime. [facility] KCL 20 mEq Yes [id number] 20meq Take 1 [facility] tablet 4-28 tablet by [facility] of 00:00: mouth [place] 00 daily. [facility] metoprolol Yes [id number] 50mg Take 1 [facility] succinate 4-28 tablet by [facility] o f XL 50 mg 24 00:00: mouth [place] hr tablet 00 daily. [facility] nitroglycer Yes [id number] .4mg Place 1 [facility] in 0.4 mg 4-28 tablet [facility] sublingual 00:00: under the [place] tablet 00 tongue Medical every 5 Branch (five) minutes as needed for Chest pain. levothyroxi Yes [id number] 150ug Take 1 [facility] ne 150 mcg 4-28 tablet by [facility] of tablet 00:00: mouth [place] 00 every Medical morning. Branch atorvastati Yes [id number] 80mg Take 1 [facility] n 80 mg 4-28 tablet by [facility] of tablet 00:00: mouth at [place] 00 bedtime. [facility] KCL 20 mEq 0 Yes [id number] 20meq Take 1 [facility] tablet 4-28 tablet by [facility] of 00:00: mouth [place] 00 daily. [facility] metoprolol Yes [id number] 50mg Take 1 [facility] succinate 4-28 tablet by [facility] o f XL 50 mg 24 00:00: mouth [place] hr tablet 00 daily. [facility] nitroglycer Yes [id number] .4mg Place 1 [facility] in 0.4 mg 4-28 tablet [facility] of sublingual 00:00: under the [place] tablet 00 tongue Medical every 5 Branch (five) minutes as needed for Chest pain. levothyroxi Yes [id number] 150ug Take 1 [facility] ne 150 mcg 4-28 tablet by [facility] of tablet 00:00: mouth [place] 00 every Medical morning. Branch atorvastati Yes [id number] 80mg Take 1 [facility] n 80 mg 4-28 tablet by [facility] of tablet 00:00: mouth at [place] 00 bedtime. [facility] KCL 20 mEq Yes [id number] 20meq Take 1 [facility] tablet 4-28 tablet by [facility] of 00:00: mouth [place] 00 daily. [facility] metoprolol Yes [id number] 50mg Take 1 [facility] succinate 4-28 tablet by [facility] o f XL 50 mg 24 00:00: mouth [place] hr tablet 00 daily. [facility] nitroglycer Yes [id number] .4mg Place 1 [facility] in 0.4 mg 4-28 tablet [facility] sublingual 00:00: under the [place] tablet 00 tongue Medical every 5 Branch (five) minutes as needed for Chest pain. levothyroxi Yes [id number] 150ug Take 1 [facility] ne 150 mcg 4-28 tablet by [facility] of tablet 00:00: mouth [place] 00 every Medical morning. Branch atorvastati Yes [id number] 80mg Take 1 [facility] n 80 mg 4-28 tablet by [facility] of tablet 00:00: mouth at [place] 00 bedtime. [facility] KCL 20 mEq Yes [id number] 20meq Take 1 [facility] tablet 4-28 tablet by [facility] of 00:00: mouth [place] 00 daily. [facility] metoprolol Yes [id number] 50mg Take 1 [facility] succinate 4-28 tablet by [facility] o f XL 50 mg 24 00:00: mouth [place] hr tablet 00 daily. [facility] nitroglycer Yes [id number] .4mg Place 1 [facility] in 0.4 mg 4-28 tablet [facility] of sublingual 00:00: under the [place] tablet 00 tongue Medical every 5 Branch (five) minutes as needed for Chest pain. levothyroxi Yes [id number] 150ug Take 1 [facility] ne 150 mcg 4-28 tablet by [facility] of tablet 00:00: mouth [place] 00 every Medical morning. Branch atorvastati Yes [id number] 80mg Take 1 [facility] n 80 mg 4-28 tablet by [facility] of tablet 00:00: mouth at [place] 00 bedtime. [facility] KCL 20 mEq 0 Yes [id number] 20meq Take 1 [facility] tablet 4-28 tablet by [facility] of 00:00: mouth [place] 00 daily. [facility] metoprolol Yes [id number] 50mg Take 1 [facility] succinate 4-28 tablet by [facility] o f XL 50 mg 24 00:00: mouth [place] hr tablet 00 daily. [facility] nitroglycer Yes [id number] .4mg Place 1 [facility] in 0.4 mg 4-28 tablet [facility] of sublingual 00:00: under the [place] tablet 00 tongue Medical every 5 Branch (five) minutes as needed for Chest pain. levothyroxi Yes [id number] 150ug Take 1 [facility] ne 150 mcg 4-28 tablet by [facility] of tablet 00:00: mouth [place] 00 every Medical morning. Branch atorvastati Yes [id number] 80mg Take 1 [facility] n 80 mg 4-28 tablet by [facility] of tablet 00:00: mouth at [place] 00 bedtime. [facility] KCL 20 mEq 0 Yes [id number] 20meq Take 1 [facility] tablet 4-28 tablet by [facility] of 00:00: mouth [place] 00 daily. [facility] metoprolol 0 Yes [id number] 50mg Take 1 [facility] succinate 4-28 tablet by [facility] o f XL 50 mg 24 00:00: mouth [place] hr tablet 00 daily. [facility] nitroglycer [id number] 1 [facility] in 0.4 mg 4-28 tablet [facility] of sublingual 00:00: under the [place] tablet 00 tongue Medical every 5 Branch (five) minutes as needed for Chest pain. levothyroxi 0 Yes [id number] 150ug Take 1 [facility] ne 150 mcg 4-28 tablet by [facility] of tablet 00:00: mouth [place] 00 every Medical morning. Branch atorvastati Yes [id number] 80mg Take 1 [facility] n 80 mg 4-28 tablet by [facility] of tablet 00:00: mouth at [place] 00 bedtime. [facility] KCL 20 mEq Yes [id number] 20meq Take 1 [facility] tablet 4-28 tablet by [facility] of 00:00: mouth [place] 00 daily. [facility] metoprolol Yes [id number] 50mg Take 1 [facility] n[facility] succinate 4-28 tablet by [facility] o f XL 50 mg 24 00:00: mouth [place] hr tablet 00 daily. [facility] nitroglycer Yes [id number] .4mg Place 1 [facility] in 0.4 mg 4-28 tablet [facility] of sublingual 00:00: under the [place] tablet 00 tongue Medical every 5 Branch (five) minutes as needed for Chest pain. levothyroxi Yes [id number] 150ug Take 1 [facility] ne 150 mcg 4-28 tablet by [facility] of tablet 00:00: mouth [place] 00 every Medical morning. Branch atorvastati Yes [id number] 80mg Take 1 [facility] n 80 mg 4-28 tablet by [facility] of tablet 00:00: mouth at [place] 00 bedtime. [facility] KCL 20 mEq Yes [id number] 20meq Take 1 [facility] tablet 4-28 tablet by [facility] of 00:00: mouth [place] 00 daily. [facility] metoprolol Yes [id number] 50mg Take 1 [facility] n[facility] succinate 4-28 tablet by [facility] o f XL 50 mg 24 00:00: mouth [place] hr tablet 00 daily. [facility] nitroglycer Yes [id number] .4mg Place 1 [facility] in 0.4 mg 4-28 tablet [facility] of sublingual 00:00: under the [place] tablet 00 tongue Medical every 5 Branch (five) minutes as needed for Chest pain. levothyroxi Yes [id number] 150ug Take 1 [facility] ne 150 mcg 4-28 tablet by [facility] of tablet 00:00: mouth [place] 00 every Medical morning. Branch atorvastati Yes [id number] 80mg Take 1 [facility] n 80 mg 4-28 tablet by [facility] of tablet 00:00: mouth at [place] 00 bedtime. [facility] KCL 20 mEq 0 Yes [id number] 20meq Take 1 [facility] tablet 4-28 tablet by [facility] of 00:00: mouth [place] 00 daily. [facility] metoprolol Yes [id number] 50mg Take 1 [facility] n[facility] succinate 4-28 tablet by [facility] o f XL 50 mg 24 00:00: mouth [place] hr tablet 00 daily. [facility] nitroglycer Yes [id number] .4mg Place 1 [facility] in 0.4 mg 4-28 tablet [facility] of sublingual 00:00: under the [place] tablet 00 tongue Medical every 5 Branch (five) minutes as needed for Chest pain. levothyroxi Yes [id number] 150ug Take 1 [facility] ne 150 mcg 4-28 tablet by [facility] of tablet 00:00: mouth [place] 00 every Medical morning. Branch atorvastati Yes [id number] 80mg Take 1 [facility] n 80 mg 4-28 tablet by [facility] of tablet 00:00: mouth at [place] 00 bedtime. [facility] KCL 20 mEq 0 Yes [id number] 20meq Take 1 [facility] tablet 4-28 tablet by [facility] of 00:00: mouth [place] 00 daily. [facility] metoprolol Yes [id number] 50mg Take 1 [facility] n[facility] succinate 4-28 tablet by [facility] o f XL 50 mg 24 00:00: mouth [place] hr tablet 00 daily. [facility] nitroglycer [id number] 1 [facility] in 0.4 mg 4-28 tablet [facility] of sublingual 00:00: under the [place] tablet 00 tongue Medical every 5 Branch (five) minutes as needed for Chest pain. levothyroxi 0 Yes [id number] 150ug Take 1 [facility] ne 150 mcg 4-28 tablet by [facility] of tablet 00:00: mouth [place] 00 every Medical morning. Branch atorvastati 0 Yes [id number] 80mg Take 1 [facility] n 80 mg 4-28 tablet by [facility] of tablet 00:00: mouth at [place] 00 bedtime. [facility] KCL 20 mEq 0 Yes [id number] 20meq Take 1 [facility] tablet 4-28 tablet by [facility] of 00:00: mouth [place] 00 daily. [facility] metoprolol Yes [id number] 50mg Take 1 [facility] nivers succinate 4-28 tablet by [facility] o f XL 50 mg 24 00:00: mouth [place] hr tablet 00 daily. [facility] nitroglycer Yes [id number] .4mg Place 1 [facility] in 0.4 mg 4-28 tablet [facility] of sublingual 00:00: under the [place] tablet 00 tongue Medical every 5 Branch (five) minutes as needed for Chest pain. levothyroxi Yes [id number] 150ug Take 1 [facility] ne 150 mcg 4-28 tablet by [facility] of tablet 00:00: mouth [place] 00 every Medical morning. Branch atorvastati Yes [id number] 80mg Take 1 [facility] n 80 mg 4-28 tablet by [facility] of tablet 00:00: mouth at [place] 00 bedtime. [facility] KCL 20 mEq Yes [id number] 20meq Take 1 [facility] tablet 4-28 tablet by [facility] of 00:00: mouth [place] 00 daily. [facility] metoprolol Yes [id number] 50mg Take 1 [facility] n[facility] succinate 4-28 tablet by [facility] o f XL 50 mg 24 00:00: mouth [place] hr tablet 00 daily. [facility] nitroglycer Yes [id number] .4mg Place 1 [facility] in 0.4 mg 4-28 tablet [facility] of sublingual 00:00: under the [place] tablet 00 tongue Medical every 5 Branch (five) minutes as needed for Chest pain. levothyroxi Yes [id number] 150ug Take 1 [facility] ne 150 mcg 4-28 tablet by [facility] of tablet 00:00: mouth [place] 00 every Medical morning. Branch atorvastati Yes [id number] 80mg Take 1 [facility] n 80 mg 4-28 tablet by [facility] of tablet 00:00: mouth at [place] 00 bedtime. [facility] KCL 20 mEq Yes [id number] 20meq Take 1 [facility] tablet 4-28 tablet by [facility] of 00:00: mouth [place] 00 daily. [facility] metoprolol Yes [id number] 50mg Take 1 [facility] n[facility] succinate 4-28 tablet by [facility] o f XL 50 mg 24 00:00: mouth [place] hr tablet 00 daily. [facility] nitroglycer Yes [id number] .4mg Place 1 [facility] in 0.4 mg 4-28 tablet it[facility] of sublingual 00:00: under the [place] tablet 00 tongue Medical every 5 Branch (five) minutes as needed for Chest pain. levothyroxi Yes [id number] 150ug Take 1 [facility] ne 150 mcg 4-28 tablet by [facility] of tablet 00:00: mouth [place] 00 every Medical morning. Branch atorvastati Yes [id number] 80mg Take 1 [facility] n 80 mg 4-28 tablet by [facility] of tablet 00:00: mouth at [place] 00 bedtime. [facility] KCL 20 mEq Yes [id number] 20meq Take 1 [facility] tablet 4-28 tablet by [facility] of 00:00: mouth [place] 00 daily. [facility] metoprolol Yes [id number] 50mg Take 1 [facility] nivers succinate 4-28 tablet by [facility] o f XL 50 mg 24 00:00: mouth [place] hr tablet 00 daily. [facility] nitroglycer Yes [id number] .4mg Place 1 [facility] in 0.4 mg 4-28 tablet ity of sublingual 00:00: under the [place] tablet 00 tongue Medical every 5 Branch (five) minutes as needed for Chest pain. levothyroxi Yes [id number] 150ug Take 1 [facility] ne 150 mcg 4-28 tablet by [facility] of tablet 00:00: mouth [place] 00 every Medical morning. Branch atorvastati Yes [id number] 80mg Take 1 [facility] n 80 mg 4-28 tablet by [facility] of tablet 00:00: mouth at [place] 00 bedtime. [facility] KCL 20 mEq 0 Yes [id number] 20meq Take 1 [facility] tablet 4-28 tablet by [facility] of 00:00: mouth [place] 00 daily. [facility] metoprolol Yes [id number] 50mg Take 1 [facility] nivers succinate 4-28 tablet by [facility] o f XL 50 mg 24 00:00: mouth [place] hr tablet 00 daily. [facility] nitroglycer Yes [id number] .4mg Place 1 [facility] in 0.4 mg 4-28 tablet ity of sublingual 00:00: under the [place] tablet 00 tongue Medical every 5 Branch (five) minutes as needed for Chest pain. levothyroxi Yes [id number] 150ug Take 1 [facility] ne 150 mcg 4-28 tablet by [facility] of tablet 00:00: mouth [place] 00 every Medical morning. Branch atorvastati Yes [id number] 80mg Take 1 [facility] n 80 mg 4-28 tablet by [facility] of tablet 00:00: mouth at [place] 00 bedtime. [facility] KCL 20 mEq 0 Yes [id number] 20meq Take 1 [facility] tablet 4-28 tablet by [facility] of 00:00: mouth [place] 00 daily. [facility] metoprolol Yes [id number] 50mg Take 1 [facility] nivers succinate 4-28 tablet by [facility] o f XL 50 mg 24 00:00: mouth [place] hr tablet 00 daily. [facility] nitroglycer Yes [id number] .4mg Place 1 [facility] in 0.4 mg 4-28 tablet ity of sublingual 00:00: under the [place] tablet 00 tongue Medical every 5 Branch (five) minutes as needed for Chest pain. levothyroxi Yes [id number] 150ug Take 1 [facility] ne 150 mcg 4-28 tablet by [facility] of tablet 00:00: mouth [place] 00 every Medical morning. Branch atorvastati Yes [id number] 80mg Take 1 [facility] n 80 mg 4-28 tablet by [facility] of tablet 00:00: mouth at [place] 00 bedtime. [facility] KCL 20 mEq 0 Yes [id number] 20meq Take 1 [facility] tablet 4-28 tablet by [facility] of 00:00: mouth [place] 00 daily. [facility] metoprolol Yes [id number] 50mg Take 1 [facility] nivers succinate 4-28 tablet by [facility] o f XL 50 mg 24 00:00: mouth [place] hr tablet 00 daily. [facility] nitroglycer Yes [id number] .4mg Place 1 [facility] in 0.4 mg 4-28 tablet ity of sublingual 00:00: under the [place] tablet 00 tongue Medical every 5 Branch (five) minutes as needed for Chest pain. levothyroxi Yes [id number] 150ug Take 1 [facility] ne 150 mcg 4-28 tablet by [facility] of tablet 00:00: mouth [place] 00 every Medical morning. Branch atorvastati Yes [id number] 80mg Take 1 [facility] n 80 mg 4-28 tablet by [facility] of tablet 00:00: mouth at [place] 00 bedtime. [facility] KCL 20 mEq Yes [id number] 20meq Take 1 [facility] tablet 4-28 tablet by [facility] of 00:00: mouth [place] 00 daily. [facility] metoprolol Yes [id number] 50mg Take 1 [facility] n[facility] succinate 4-28 tablet by [facility] o f XL 50 mg 24 00:00: mouth [place] hr tablet 00 daily. [facility] nitroglycer Yes [id number] .4mg Place 1 [facility] in 0.4 mg 4-28 tablet ity of sublingual 00:00: under the [place] tablet 00 tongue Medical every 5 Branch (five) minutes as needed for Chest pain. levothyroxi Yes [id number] 150ug Take 1 [facility] ne 150 mcg 4-28 tablet by [facility] of tablet 00:00: mouth [place] 00 every Medical morning. Branch atorvastati Yes [id number] 80mg Take 1 [facility] n 80 mg 4-28 tablet by [facility] of tablet 00:00: mouth at [place] 00 bedtime. [facility] KCL 20 mEq Yes [id number] 20meq Take 1 [facility] tablet 4-28 tablet by [facility] of 00:00: mouth [place] 00 daily. [facility] metoprolol Yes [id number] 50mg Take 1 [facility] nivers succinate 4-28 tablet by [facility] o f XL 50 mg 24 00:00: mouth [place] hr tablet 00 daily. [facility] nitroglycer Yes [id number] .4mg Place 1 [facility] in 0.4 mg 4-28 tablet ity of sublingual 00:00: under the [place] tablet 00 tongue Medical every 5 Branch (five) minutes as needed for Chest pain. levothyroxi Yes [id number] 150ug Take 1 [facility] ne 150 mcg 4-28 tablet by [facility] of tablet 00:00: mouth [place] 00 every Medical morning. Branch atorvastati Yes [id number] 80mg Take 1 [facility] n 80 mg 4-28 tablet by [facility] of tablet 00:00: mouth at [place] 00 bedtime. [facility] KCL 20 mEq Yes [id number] 20meq Take 1 [facility] tablet 4-28 tablet by [facility] of 00:00: mouth [place] 00 daily. [facility] metoprolol Yes [id number] 50mg Take 1 [facility] nivers succinate 4-28 tablet by [facility] o f XL 50 mg 24 00:00: mouth [place] hr tablet 00 daily. [facility] nitroglycer Yes [id number] .4mg Place 1 [facility] in 0.4 mg 4-28 tablet ity of sublingual 00:00: under the [place] tablet 00 tongue Medical every 5 Branch (five) minutes as needed for Chest pain. levothyroxi Yes [id number] 150ug Take 1 [facility] ne 150 mcg 4-28 tablet by [facility] of tablet 00:00: mouth [place] 00 every Medical morning. Branch atorvastati Yes [id number] 80mg Take 1 [facility] n 80 mg 4-28 tablet by [facility] of tablet 00:00: mouth at [place] 00 bedtime. [facility] KCL 20 mEq Yes [id number] 20meq Take 1 [facility] tablet 4-28 tablet by [facility] of 00:00: mouth [place] 00 daily. [facility] metoprolol Yes [id number] 50mg Take 1 [facility] nivers succinate 4-28 tablet by [facility] o f XL 50 mg 24 00:00: mouth [place] hr tablet 00 daily. [facility] nitroglycer Yes [id number] .4mg Place 1 [facility] in 0.4 mg 4-28 tablet ity of sublingual 00:00: under the [place] tablet 00 tongue Medical every 5 Branch (five) minutes as needed for Chest pain. levothyroxi Yes [id number] 150ug Take 1 [facility] ne 150 mcg 4-28 tablet by [facility] of tablet 00:00: mouth [place] 00 every Medical morning. Branch atorvastati Yes [id number] 80mg Take 1 [facility] n 80 mg 4-28 tablet by [facility] of tablet 00:00: mouth at [place] 00 bedtime. [facility] KCL 20 mEq 0 Yes [id number] 20meq Take 1 [facility] tablet 4-28 tablet by [facility] of 00:00: mouth [place] 00 daily. [facility] metoprolol Yes [id number] 50mg Take 1 [facility] nivers succinate 4-28 tablet by [facility] o f XL 50 mg 24 00:00: mouth [place] hr tablet 00 daily. [facility] nitroglycer Yes [id number] .4mg Place 1 [facility] in 0.4 mg 4-28 tablet ity of sublingual 00:00: under the [place] tablet 00 tongue Medical every 5 Branch (five) minutes as needed for Chest pain. levothyroxi Yes [id number] 150ug Take 1 [facility] ne 150 mcg 4-28 tablet by [facility] of tablet 00:00: mouth [place] 00 every Medical morning. Branch atorvastati Yes [id number] 80mg Take 1 [facility] n 80 mg 4-28 tablet by [facility] of tablet 00:00: mouth at [place] 00 bedtime. [facility] KCL 20 mEq Yes [id number] 20meq Take 1 [facility] tablet 4-28 tablet by [facility] of 00:00: mouth [place] 00 daily. [facility] metoprolol Yes [id number] 50mg Take 1 [facility] nivers succinate 4-28 tablet by [facility] o f XL 50 mg 24 00:00: mouth [place] hr tablet 00 daily. [facility] nitroglycer Yes [id number] .4mg Place 1 [facility] in 0.4 mg 4-28 tablet ity of sublingual 00:00: under the [place] tablet 00 tongue Medical every 5 Branch (five) minutes as needed for Chest pain. levothyroxi Yes [id number] 150ug Take 1 [facility] ne 150 mcg 4-28 tablet by [facility] of tablet 00:00: mouth [place] 00 every Medical morning. Branch atorvastati Yes [id number] 80mg Take 1 [facility] n 80 mg 4-28 tablet by [facility] of tablet 00:00: mouth at [place] 00 bedtime. [facility] KCL 20 mEq Yes [id number] 20meq Take 1 [facility] tablet 4-28 tablet by [facility] of 00:00: mouth [place] 00 daily. [facility] metoprolol Yes [id number] 50mg Take 1 [facility] nivers succinate 4-28 tablet by [facility] o f XL 50 mg 24 00:00: mouth [place] hr tablet 00 daily. [facility] nitroglycer Yes [id number] .4mg Place 1 [facility] in 0.4 mg 4-28 tablet ity of sublingual 00:00: under the [place] tablet 00 tongue Medical every 5 Branch (five) minutes as needed for Chest pain. levothyroxi 2021-0 Yes [id number] 150ug Take 1 [facility] ne 150 mcg 4-28 tablet by [facility] of tablet 00:00: mouth [place] 00 every Medical morning. Branch atorvastati 2021-0 Yes [id number] 80mg Take 1 [facility] n 80 mg 4-28 tablet by [facility] of tablet 00:00: mouth at [place] 00 bedtime. [facility] nitroglycer [id number] 1 [facility] in 0.4 mg 4-28 tablet ity of sublingual 00:00: under the [place] tablet 00 tongue Medical every 5 Branch (five) minutes as needed for Chest pain. atorvastati 2021-0 Yes [id number] 80mg Take 1 [facility] n 80 mg 4-28 tablet by [facility] of tablet 00:00: mouth at [place] [address] bedtime. [facility] nitroglycer 2021-[id number] 1 [facility] in 0.4 mg 4-28 tablet ity of sublingual 00:00: under the [place] tablet 00 tongue Medical every 5 Branch (five) minutes as needed for Chest pain. atorvastati 2021-0 Yes [id number] 80mg Take 1 [facility] n 80 mg 4-28 tablet by [facility] of tablet 00:00: mouth at [place] [address] bedtime. [facility] nitroglycer 2021-[id number] 1 [facility] in 0.4 mg 4-28 tablet ity of sublingual 00:00: under the [place] tablet 00 tongue Medical every 5 Branch (five) minutes as needed for Chest pain. atorvastati 2021-0 Yes [id number] 80mg Take 1 [facility] n 80 mg 4-28 tablet by [facility] of tablet 00:00: mouth at [place] [address] bedtime. Medical Branch nitroglycer 2021-[id number] 1 [facility] in 0.4 mg 4-28 tablet ity of sublingual 00:00: under the [place] tablet 00 tongue Medical every 5 Branch (five) minutes as needed for Chest pain. atorvastati 2021-0 Yes [id number] 80mg Take 1 [facility] n 80 mg 4-28 tablet by ity of tablet 00:00: mouth at [place] 00 bedtime. Medical Branch nitroglycer 2021-[id number] 1 [facility] in 0.4 mg 4-28 tablet ity of sublingual 00:00: under the [place] tablet 00 tongue Medical every 5 Branch (five) minutes as needed for Chest pain. atorvastati 2021-0 Yes [id number] 80mg Take 1 [facility] n 80 mg 4-28 tablet by [facility]y of tablet 00:00: mouth at [place] 00 bedtime. Medical Branch nitroglycer 2021-[id number] 1 [facility] in 0.4 mg 4-28 tablet ity of sublingual 00:00: under the [place] tablet 00 tongue Medical every 5 Branch (five) minutes as needed for Chest pain. atorvastati 2021-0 Yes [id number] 80mg Take 1 [facility] n 80 mg 4-28 tablet by [facility]y of tablet 00:00: mouth at [place] 00 bedtime. Medical Branch nitroglycer 2021-[id number] 1 [facility] in 0.4 mg 4-28 tablet ity of sublingual 00:00: under the [place] tablet 00 tongue Medical every 5 Branch (five) minutes as needed for Chest pain. atorvastati 2021-0 Yes [id number] 80mg Take 1 [facility] n 80 mg 4-28 tablet by [facility]y of tablet 00:00: mouth at [place] 00 bedtime. Medical [facility] nitroglycer 2021-[id number] 1 [facility] in 0.4 mg 4-28 tablet ity of sublingual 00:00: under the [place] tablet 00 tongue Medical every 5 Branch (five) minutes as needed for Chest pain. atorvastati 2021-0 Yes [id number] 80mg Take 1 [facility] n 80 mg 4-28 tablet by ity of tablet 00:00: mouth at [place] 00 bedtime. Medical [facility] nitroglycer 2021-[id number] 1 [facility] in 0.4 mg 4-28 tablet ity of sublingual 00:00: under the [place] tablet 00 tongue Medical every 5 Branch (five) minutes as needed for Chest pain. atorvastati 2021-0 Yes [id number] 80mg Take 1 [facility] n 80 mg 4-28 tablet by [facility] of tablet 00:00: mouth at [place] 00 bedtime. Medical [facility] nitroglycer 2021-[id number] 1 [facility] in 0.4 mg 4-28 tablet ity of sublingual 00:00: under the [place] tablet 00 tongue Medical every 5 Branch (five) minutes as needed for Chest pain. atorvastati 2021-0 Yes [id number] 80mg Take 1 [facility] n 80 mg 4-28 tablet by [facility] of tablet 00:00: mouth at [place] 00 bedtime. Medical [facility] nitroglycer 2021-[id number] 1 [facility] in 0.4 mg 4-28 tablet ity of sublingual 00:00: under the [place] tablet 00 tongue Medical every 5 Branch (five) minutes as needed for Chest pain. atorvastati 2021-0 Yes [id number] 80mg Take 1 [facility] n 80 mg 4-28 tablet by [facility] of tablet 00:00: mouth at [place] 00 bedtime. [facility] nitroglycer 2021-[id number] 1 [facility] in 0.4 mg 4-28 tablet ity of sublingual 00:00: under the [place] tablet 00 tongue Medical every 5 Branch (five) minutes as needed for Chest pain. atorvastati 2021-0 Yes [id number] 80mg Take 1 [facility] n 80 mg 4-28 tablet by [facility] of tablet 00:00: mouth at [place] 00 bedtime. Medical [facility] nitroglycer 2021-[id number] 1 [facility] in 0.4 mg 4-28 tablet ity of sublingual 00:00: under the [place] tablet 00 tongue Medical every 5 Branch (five) minutes as needed for Chest pain. atorvastati 2021-0 Yes [id number] 80mg Take 1 [facility] n 80 mg 4-28 tablet by ity of tablet 00:00: mouth at [place] 00 bedtime. Medical [facility] nitroglycer 2021-[id number] 1 [facility] in 0.4 mg 4-28 tablet ity of sublingual 00:00: under the [place] tablet 00 tongue Medical every 5 Branch (five) minutes as needed for Chest pain. atorvastati 2021-0 Yes [id number] 80mg Take 1 [facility] n 80 mg 4-28 tablet by ity of tablet 00:00: mouth at [place] 00 bedtime. Medical [facility] nitroglycer 2021-[id number] 1 [facility] in 0.4 mg 4-28 tablet ity of sublingual 00:00: under the [place] tablet 00 tongue Medical every 5 Branch (five) minutes as needed for Chest pain. atorvastati 2021-0 Yes [id number] 80mg Take 1 [facility] n 80 mg 4-28 tablet by ity of tablet 00:00: mouth at [place] 00 bedtime. Medical [facility] nitroglycer 2021-[id number] 1 [facility] in 0.4 mg 4-28 tablet ity of sublingual 00:00: under the [place] tablet 00 tongue Medical every 5 Branch (five) minutes as needed for Chest pain. atorvastati 2021-0 Yes [id number] 80mg Take 1 [facility] n 80 mg 4-28 tablet by ity of tablet 00:00: mouth at [place] 00 bedtime. Medical [facility] nitroglycer 2021-[id number] 1 [facility] in 0.4 mg 4-28 tablet ity of sublingual 00:00: under the [place] tablet 00 tongue Medical every 5 Branch (five) minutes as needed for Chest pain. atorvastati 2021-0 Yes [id number] 80mg Take 1 [facility] n 80 mg 4-28 tablet by ity of tablet 00:00: mouth at [place] 00 bedtime. Medical [facility] nitroglycer 2021-[id number] 1 [facility] in 0.4 mg 4-28 tablet ity of sublingual 00:00: under the [place] tablet 00 tongue Medical every 5 Branch (five) minutes as needed for Chest pain. atorvastati 2021-0 Yes [id number] 80mg Take 1 [facility] n 80 mg 4-28 tablet by ity of tablet 00:00: mouth at [place] 00 bedtime. Medical [facility] nitroglycer 2021-[id number] 1 [facility] in 0.4 mg 4-28 tablet ity of sublingual 00:00: under the [place] tablet 00 tongue Medical every 5 Branch (five) minutes as needed for Chest pain. atorvastati 2021-0 Yes [id number] 80mg Take 1 [facility] n 80 mg 4-28 tablet by it[facility] of tablet 00:00: mouth at [place] 00 bedtime. Medical Branch nitroglycer 2022-[id number] 1 [facility] in 0.4 mg 4-28 tablet ity of sublingual 00:00: under the [place] tablet 00 tongue Medical every 5 Branch (five) minutes as needed for Chest pain. nitroglycer 2022-[id number] 1 [facility] in 0.4 mg 4-28 tablet ity of sublingual 00:00: under the [place] tablet 00 tongue Medical every 5 Branch (five) minutes as needed for Chest pain. nitroglycer 2022-[id number] 1 [facility] in 0.4 mg 4-28 tablet ity of sublingual 00:00: under the [place] tablet 00 tongue Medical every 5 Branch (five) minutes as needed for Chest pain. nitroglycer 2022-[id number] 1 [facility] in 0.4 mg 4-28 tablet ity of sublingual 00:00: under the [place] tablet 00 tongue Medical every 5 Branch (five) minutes as needed for Chest pain. nitroglycer 2022-[id number] 1 [facility] in 0.4 mg 4-28 tablet ity of sublingual 00:00: under the [place] tablet 00 tongue Medical every 5 Branch (five) minutes as needed for Chest pain. nitroglycer 2022-[id number] 1 [facility] in 0.4 mg 4-28 tablet ity of sublingual 00:00: under the [place] tablet 00 tongue Medical every 5 Branch (five) minutes as needed for Chest pain. nitroglycer 2022-[id number] 1 [facility] in 0.4 mg 4-28 tablet ity of sublingual 00:00: under the [place] tablet 00 tongue Medical every 5 Branch (five) minutes as needed for Chest pain. nitroglycer 2022-[id number] 1 [facility] in 0.4 mg 4-28 tablet ity of sublingual 00:00: under the [place] tablet 00 tongue Medical every 5 Branch (five) minutes as needed for Chest pain. nitroglycer 2022-[id number] 1 [facility] in 0.4 mg 4-28 tablet ity of sublingual 00:00: under the [place] tablet 00 tongue Medical every 5 Branch (five) minutes as needed for Chest pain. nitroglycer 2022-[id number] 1 [facility] in 0.4 mg 4-28 tablet ity of sublingual 00:00: under the [place] tablet 00 tongue Medical every 5 Branch (five) minutes as needed for Chest pain. nitroglycer 2022-[id number] 1 [facility] in 0.4 mg 4-28 tablet ity of sublingual 00:00: under the [place] tablet 00 tongue Medical every 5 Branch (five) minutes as needed for Chest pain. nitroglycer 2022-[id number] 1 [facility] in 0.4 mg 4-28 tablet ity of sublingual 00:00: under the [place] tablet 00 tongue Medical every 5 Branch (five) minutes as needed for Chest pain. nitroglycer 2022-[id number] 1 [facility] in 0.4 mg 4-28 tablet ity of sublingual 00:00: under the [place] tablet 00 tongue Medical every 5 Branch (five) minutes as needed for Chest pain. nitroglycer 2022-[id number] 1 [facility] in 0.4 mg 4-28 tablet ity of sublingual 00:00: under the [place] tablet 00 tongue Medical every 5 Branch (five) minutes as needed for Chest pain. nitroglycer 2022-[id number] 1 [facility] in 0.4 mg 4-28 tablet ity of sublingual 00:00: under the [place] tablet 00 tongue Medical every 5 Branch (five) minutes as needed for Chest pain. nitroglycer 2022-[id number] 1 [facility] in 0.4 mg 4-28 tablet ity of sublingual 00:00: under the [place] tablet 00 tongue Medical every 5 Branch (five) minutes as needed for Chest pain. nitroglycer 2022-[id number] 1 [facility] in 0.4 mg 4-28 tablet ity of sublingual 00:00: under the [place] tablet 00 tongue Medical every 5 Branch (five) minutes as needed for Chest pain. nitroglycer 2022-[id number] 1 [facility] in 0.4 mg 4-28 tablet ity of sublingual 00:00: under the [place] tablet 00 tongue Medical every 5 Branch (five) minutes as needed for Chest pain. nitroglycer 2022-[id number] 1 [facility] in 0.4 mg 4-28 tablet ity of sublingual 00:00: under the [place] tablet 00 tongue Medical every 5 Branch (five) minutes as needed for Chest pain. nitroglycer 2022-[id number] 1 [facility] in 0.4 mg 4-28 tablet ity of sublingual 00:00: under the [place] tablet 00 tongue Medical every 5 Branch (five) minutes as needed for Chest pain. nitroglycer 2022-[id number] 1 [facility] in 0.4 mg 4-28 tablet ity of sublingual 00:00: under the [place] tablet 00 tongue Medical every 5 Branch (five) minutes as needed for Chest pain. nitroglycer 2022-[id number] 1 [facility] in 0.4 mg 4-28 tablet ity of sublingual 00:00: under the [place] tablet 00 tongue Medical every 5 Branch (five) minutes as needed for Chest pain. nitroglycer 2022-[id number] 1 [facility] in 0.4 mg 4-28 tablet ity of sublingual 00:00: under the [place] tablet 00 tongue Medical every 5 Branch (five) minutes as needed for Chest pain. nitroglycer 2022-[id number] 1 [facility] in 0.4 mg 4-28 tablet ity of sublingual 00:00: under the [place] tablet 00 tongue Medical every 5 Branch (five) minutes as needed for Chest pain. nitroglycer 2022-[id number] 1 [facility] in 0.4 mg 4-28 tablet ity of sublingual 00:00: under the [place] tablet 00 tongue Medical every 5 Branch (five) minutes as needed for Chest pain. nitroglycer 2022-[id number] 1 [facility] in 0.4 mg 4-28 tablet ity of sublingual 00:00: under the [place] tablet 00 tongue Medical every 5 Branch (five) minutes as needed for Chest pain. nitroglycer 2022-[id number] 1 [facility] in 0.4 mg 4-28 tablet ity of sublingual 00:00: under the [place] tablet 00 tongue Medical every 5 Branch (five) minutes as needed for Chest pain. nitroglycer 2022-[id number] 1 [facility] in 0.4 mg 4-28 tablet ity of sublingual 00:00: under the [place] tablet 00 tongue Medical every 5 Branch (five) minutes as needed for Chest pain. nitroglycer 2022-[id number] 1 [facility] in 0.4 mg 4-28 tablet ity of sublingual 00:00: under the [place] tablet 00 tongue Medical every 5 Branch (five) minutes as needed for Chest pain. nitroglycer 2022-[id number] 1 [facility] in 0.4 mg 4-28 tablet ity of sublingual 00:00: under the [place] tablet 00 tongue Medical every 5 Branch (five) minutes as needed for Chest pain. nitroglycer 2022-[id number] 1 [facility] in 0.4 mg 4-28 tablet ity of sublingual 00:00: under the [place] tablet 00 tongue Medical every 5 Branch (five) minutes as needed for Chest pain. nitroglycer 2022-[id number] 1 [facility] in 0.4 mg 4-28 tablet ity of sublingual 00:00: under the [place] tablet 00 tongue Medical every 5 Branch (five) minutes as needed for Chest pain. nitroglycer 2022-[id number] 1 [facility] in 0.4 mg 4-28 tablet ity of sublingual 00:00: under the [place] tablet 00 tongue Medical every 5 Branch (five) minutes as needed for Chest pain. nitroglycer 2022-[id number] 1 [facility] in 0.4 mg 4-28 tablet ity of sublingual 00:00: under the [place] tablet 00 tongue Medical every 5 Branch (five) minutes as needed for Chest pain. nitroglycer 2022-[id number] 1 [facility] in 0.4 mg 4-28 tablet ity of sublingual 00:00: under the [place] tablet 00 tongue Medical every 5 Branch (five) minutes as needed for Chest pain. nitroglycer 2022-[id number] 1 [facility] in 0.4 mg 4-28 tablet ity of sublingual 00:00: under the [place] tablet 00 tongue Medical every 5 Branch (five) minutes as needed for Chest pain. nitroglycer 2-[id number] 1 [facility] in 0.4 mg 4-28 tablet ity of sublingual 00:00: under the [place] tablet 00 tongue Medical every 5 Branch (five) minutes as needed for Chest pain. nitroglycer 2-[id number] 1 [facility] in 0.4 mg 4-28 tablet ity of sublingual 00:00: under the [place] tablet 00 tongue Medical every 5 Branch (five) minutes as needed for Chest pain. nitroglycer 2-[id number] 1 [facility] in 0.4 mg 4-28 tablet ity of sublingual 00:00: under the [place] tablet 00 tongue Medical every 5 Branch (five) minutes as needed for Chest pain. nitroglycer 2-[id number] 1 [facility] in 0.4 mg 4-28 tablet ity of sublingual 00:00: under the [place] tablet 00 tongue Medical every 5 Branch (five) minutes as needed for Chest pain. nitroglycer 2-[id number] 1 [facility] in 0.4 mg 4-28 tablet ity of sublingual 00:00: under the [place] tablet 00 tongue Medical every 5 Branch (five) minutes as needed for Chest pain. nitroglycer 2-[id number] 1 [facility] in 0.4 mg 4-28 tablet ity of sublingual 00:00: under the [place] tablet 00 tongue Medical every 5 Branch (five) minutes as needed for Chest pain. nitroglycer 2022-[id number] 1 [facility] in 0.4 mg 4-28 tablet ity of sublingual 00:00: under the [place] tablet 00 tongue Medical every 5 Branch (five) minutes as needed for Chest pain. nitroglycer 2022-[id number] 1 [facility] in 0.4 mg 4-28 tablet ity of sublingual 00:00: under the [place] tablet 00 tongue Medical every 5 Branch (five) minutes as needed for Chest pain. nitroglycer 2022-[id number] 1 [facility] in 0.4 mg 4-28 tablet ity of sublingual 00:00: under the [place] tablet 00 tongue Medical every 5 Branch (five) minutes as needed for Chest pain. nitroglycer 2022-[id number] 1 [facility] in 0.4 mg 4-28 tablet ity of sublingual 00:00: under the [place] tablet 00 tongue Medical every 5 Branch (five) minutes as needed for Chest pain. nitroglycer 2022-[id number] 1 [facility] in 0.4 mg 4-28 tablet ity of sublingual 00:00: under the [place] tablet 00 tongue Medical every 5 Branch (five) minutes as needed for Chest pain. nitroglycer 2022-[id number] 1 [facility] in 0.4 mg 4-28 tablet ity of sublingual 00:00: under the [place] tablet 00 tongue Medical every 5 Branch (five) minutes as needed for Chest pain. nitroglycer 2022-[id number] 1 [facility] in 0.4 mg 4-28 tablet ity of sublingual 00:00: under the [place] tablet 00 tongue Medical every 5 Branch (five) minutes as needed for Chest pain. nitroglycer 2022-[id number] 1 [facility] in 0.4 mg 4-28 tablet ity of sublingual 00:00: under the [place] tablet 00 tongue Medical every 5 Branch (five) minutes as needed for Chest pain. nitroglycer 2022-[id number] 1 [facility] in 0.4 mg 4-28 tablet ity of sublingual 00:00: under the [place] tablet 00 tongue Medical every 5 Branch (five) minutes as needed for Chest pain. nitroglycer 2022-[id number] 1 [facility] in 0.4 mg 4-28 tablet ity of sublingual 00:00: under the [place] tablet 00 tongue Medical every 5 Branch (five) minutes as needed for Chest pain. nitroglycer 2022-[id number] 1 [facility] in 0.4 mg 4-28 tablet ity of sublingual 00:00: under the [place] tablet 00 tongue Medical every 5 Branch (five) minutes as needed for Chest pain. nitroglycer Yes [id number] .4mg Place 1 [facility] in 0.4 mg 4-28 tablet ity of sublingual 00:00: under the [place] tablet 00 tongue Medical every 5 Branch (five) minutes as needed for Chest pain. nitroglycer Yes [id number] .4mg Place 1 [facility] in 0.4 mg 4-28 tablet ity of sublingual 00:00: under the [place] tablet 00 tongue Medical every 5 Branch (five) minutes as needed for Chest pain. atorvastati 2021- No [id number] 80mg Take 1 [facility] n 80 mg 4-28 11-07 tablet by [facility]y of tablet 00:00: 00:00 mouth at [place] 00 :00 bedtime. Medical Branch atorvastati 2021- No [id number] 80mg Take 1 [facility] n 80 mg 4-28 -07 tablet by ity of tablet 00:00: 00:00 mouth at [place] 00 :00 bedtime. Medical Branch atorvastati 2021- No [id number] 80mg Take 1 [facility] n 80 mg 4-28 -07 tablet by ity of tablet 00:00: 00:00 mouth at [place] 00 :00 bedtime. Medical Branch KCL 20 mEq 2021- No [id number] 20meq Take 1 [facility] tablet 4-28 10-25 tablet by ity of 00:00: 00:00 mouth [place] 00 :00 daily. Medical Branch metoprolol 2021- No [id number] 50mg Take 1 [facility] succinate 4-28 10-25 tablet by ity of XL 50 mg 24 00:00: 00:00 mouth [place] hr tablet 00 :00 daily. Medical Branch levothyroxi 2021- No [id number] 150ug Take 1 [facility] ne 150 mcg 4-28 10-25 tablet by ity of tablet 00:00: 00:00 mouth [place] 00 :00 every Medical morning. Branch KCL 20 mEq 2021- No [id number] 20meq Take 1 [facility] tablet 4-28 10-25 tablet by ity of 00:00: 00:00 mouth [place] 00 :00 daily. Medical Branch metoprolol No [id number] 50mg Take 1 [facility] succinate 4-28 10-25 tablet by ity of XL 50 mg 24 00:00: 00:00 mouth [place] hr tablet 00 :00 daily. Medical Branch levothyroxi No [id number] 150ug Take 1 [facility] ne 150 mcg 4-28 10-25 tablet by ity of tablet 00:00: 00:00 mouth [place] 00 :00 every Medical morning. Branch KCL 20 mEq No [id number] 20meq Take 1 [facility] tablet 4-28 10-25 tablet by ity of 00:00: 00:00 mouth [place] 00 :00 daily. Medical Branch metoprolol No [id number] 50mg Take 1 [facility] succinate 4-28 10-25 tablet by ity of XL 50 mg 24 00:00: 00:00 mouth [place] hr tablet 00 :00 daily. Medical Branch levothyroxi No [id number] 150ug Take 1 [facility] ne 150 mcg 4-28 10-25 tablet by ity of tablet 00:00: 00:00 mouth [place] 00 :00 every Medical morning. Branch KCL 20 mEq 2021- No [id number] 20meq Take 1 [facility] tablet 4-28 10-25 tablet by ity of 00:00: 00:00 mouth [place] 00 :00 daily. Medical Branch metoprolol No [id number] 50mg Take 1 [facility] succinate 4-28 10-25 tablet by ity of XL 50 mg 24 00:00: 00:00 mouth [place] hr tablet 00 :00 daily. Medical Branch levothyroxi No [id number] 150ug Take 1 [facility] ne 150 mcg 4-28 10-25 tablet by ity of tablet 00:00: 00:00 mouth [place] 00 :00 every Medical morning. Branch KCL 20 mEq No [id number] 20meq Take 1 [facility] tablet 4-28 10-25 tablet by ity of 00:00: 00:00 mouth [place] 00 :00 daily. Medical Branch metoprolol No [id number] 50mg Take 1 [facility] succinate 4-28 10-25 tablet by ity of XL 50 mg 24 00:00: 00:00 mouth [place] hr tablet 00 :00 daily. Medical [facility] levothyroxi 2021- No [id number] 150ug Take 1 [facility] ne 150 mcg -28 10-25 tablet by ity of tablet 00:00: 00:00 mouth [place] 00 :00 every Medical morning. Branch apixaban 2021- No [id number] 5mg Take 1 [facility] (ELIQUIS) 5 03-20 08-16 tablet by it y of mg tablet 00:00: 00:00 mouth [place] 00 :00 (two) Medical times Branch daily. Indication s: atrial fibrillati on empaglifloz 2021-0 Yes [id number] 10mg Take 1 [facility] in 3-31 tablet by ity of (JARDIANCE) 00:00: mouth [place] 10 mg 00 every Medical morning. Branch empaglifloz 2021-0 Yes [id number] 10mg Take 1 [facility] in 3-31 tablet by ity of (JARDIANCE) 00:00: mouth [place] 10 mg 00 every Medical morning. Branch empaglifloz 2021-0 Yes [id number] 10mg Take 1 [facility] in 3-31 tablet by ity of (JARDIANCE) 00:00: mouth [place] 10 mg 00 every Medical morning. Branch empaglifloz 2021-0 Yes [id number] 10mg Take 1 [facility] in 3-31 tablet by ity of ([place]) 00:00: mouth [place] 10 mg 00 every Medical morning. Branch empaglifloz 2-0 Yes [id number] 10mg Take 1 [facility] in 3-31 tablet by ity of ([place]) 00:00: mouth [place] 10 mg 00 every Medical morning. Branch empaglifloz 2021-0 Yes [id number] 10mg Take 1 [facility] in 3-31 tablet by ity of (J[place]IANCE) 00:00: mouth [place] 10 mg 00 every Medical morning. Branch empaglifloz 2-0 Yes [id number] 10mg Take 1 [facility] in 3-31 tablet by ity of ([place]) 00:00: mouth [place] 10 mg 00 every Medical morning. Branch empaglifloz 2-0 Yes [id number] 10mg Take 1 [facility] in 3-31 tablet by ity of (JARDIANCE) 00:00: mouth [place] 10 mg 00 every Medical morning. Branch empaglifloz 2022-0 Yes [id number] 10mg Take 1 [facility] in 3-31 tablet by ity of ([place]ARDI[place]) 00:00: mouth [place] 10 mg 00 every Medical morning. Branch empaglifloz 2022-0 Yes [id number] 10mg Take 1 [facility] in 3-31 tablet by ity of (J[place]) 00:00: mouth [place] 10 mg 00 every Medical morning. Branch empaglifloz 2022-0 Yes [id number] 10mg Take 1 [facility] in 3-31 tablet by ity of ([place]) 00:00: mouth [place] 10 mg 00 every Medical morning. Branch empaglifloz 2022-0 Yes [id number] 10mg Take 1 [facility] in 3-31 tablet by ity of ([place]) 00:00: mouth [place] 10 mg 00 every Medical morning. Branch empaglifloz 2022-0 Yes [id number] 10mg Take 1 [facility] in 3-31 tablet by ity of ([place]) 00:00: mouth [place] 10 mg 00 every Medical morning. Branch empaglifloz 2022-0 Yes [id number] 10mg Take 1 [facility] in 3-31 tablet by ity of ([place]) 00:00: mouth [place] 10 mg 00 every Medical morning. Branch empaglifloz 2022-0 Yes [id number] 10mg Take 1 [facility] in 3-31 tablet by ity of ([place]) 00:00: mouth [place] 10 mg 00 every Medical morning. Branch empaglifloz 2022-0 Yes [id number] 10mg Take 1 [facility] in 3-31 tablet by ity of ([place]) 00:00: mouth [place] 10 mg 00 every Medical morning. Branch empaglifloz 2022-0 Yes [id number] 10mg Take 1 [facility] in 3-31 tablet by ity of ([place]) 00:00: mouth [place] 10 mg 00 every Medical morning. Branch empaglifloz 2022-0 Yes [id number] 10mg Take 1 [facility] in 3-31 tablet by ity of ([place]) 00:00: mouth [place] 10 mg 00 every Medical morning. Branch empaglifloz 2022-0 Yes [id number] 10mg Take 1 [facility] in 3-31 tablet by ity of ([place]) 00:00: mouth [place] 10 mg 00 every Medical morning. Branch empaglifloz 2022-0 Yes [id number] 10mg Take 1 [facility] in 3-31 tablet by ity of ([place]) 00:00: mouth [place] 10 mg 00 every Medical morning. Branch empaglifloz 2022-0 Yes [id number] 10mg Take 1 [facility] in 3-31 tablet by ity of ([place]) 00:00: mouth [place] 10 mg 00 every Medical morning. Branch empaglifloz 2022-0 Yes [id number] 10mg Take 1 [facility] in 3-31 tablet by ity of ([place]) 00:00: mouth [place] 10 mg 00 every Medical morning. Branch empaglifloz 2022-0 Yes [id number] 10mg Take 1 [facility] in 3-31 tablet by ity of ([place]) 00:00: mouth [place] 10 mg 00 every Medical morning. Branch empaglifloz 2022-0 Yes [id number] 10mg Take 1 [facility] in 3-31 tablet by ity of ([place]ANCE) 00:00: mouth [place] 10 mg 00 every Medical morning. Branch empaglifloz 2022-0 Yes [id number] 10mg Take 1 [facility] in 3-31 tablet by ity of ([place]) 00:00: mouth [place] 10 mg 00 every Medical morning. Branch empaglifloz 2022-0 Yes [id number] 10mg Take 1 [facility] in 3-31 tablet by ity of ([place]) 00:00: mouth [place] 10 mg 00 every Medical morning. Branch empaglifloz 2022-0 Yes [id number] 10mg Take 1 [facility] in 3-31 tablet by ity of ([place]) 00:00: mouth [place] 10 mg 00 every Medical morning. Branch empaglifloz 2022-0 Yes [id number] 10mg Take 1 [facility] in 3-31 tablet by ity of ([place]) 00:00: mouth [place] 10 mg 00 every Medical morning. Branch empaglifloz 2022-0 Yes [id number] 10mg Take 1 [facility] in 3-31 tablet by ity of ([place]) 00:00: mouth [place] 10 mg 00 every Medical morning. Branch empaglifloz 2022-0 Yes [id number] 10mg Take 1 [facility] in 3-31 tablet by ity of ([place]) 00:00: mouth [place] 10 mg 00 every Medical morning. Branch empaglifloz 2022-0 Yes [id number] 10mg Take 1 [facility] in 3-31 tablet by ity of ([place]) 00:00: mouth [place] 10 mg 00 every Medical morning. Branch empaglifloz 2022-0 Yes [id number] 10mg Take 1 [facility] in 3-31 tablet by ity of ([place]ANCE) 00:00: mouth [place] 10 mg 00 every Medical morning. Branch empaglifloz 2022-0 Yes [id number] 10mg Take 1 [facility] in 3-31 tablet by ity of ([place]) 00:00: mouth [place] 10 mg 00 every Medical morning. Branch empaglifloz 2022-0 Yes [id number] 10mg Take 1 [facility] in 3-31 tablet by ity of ([place]) 00:00: mouth [place] 10 mg 00 every Medical morning. Branch empaglifloz 2022-0 Yes [id number] 10mg Take 1 [facility] in 3-31 tablet by ity of ([place]ARDIANCE) 00:00: mouth [place] 10 mg 00 every Medical morning. Branch empaglifloz 2022-0 Yes [id number] 10mg Take 1 [facility] in 3-31 tablet by ity of (JARDIANCE) 00:00: mouth [place] 10 mg 00 every Medical morning. Branch empaglifloz 2022-0 Yes [id number] 10mg Take 1 [facility] in 3-31 tablet by ity of ([place]) 00:00: mouth [place] 10 mg 00 every Medical morning. Branch empaglifloz 2022-0 Yes [id number] 10mg Take 1 [facility] in 3-31 tablet by ity of ([place]) 00:00: mouth [place] 10 mg 00 every Medical morning. Branch empaglifloz 2022-0 Yes [id number] 10mg Take 1 [facility] in 3-31 tablet by ity of ([place]) 00:00: mouth [place] 10 mg 00 every Medical morning. Branch empaglifloz 2022-0 Yes [id number] 10mg Take 1 [facility] in 3-31 tablet by ity of ([place]) 00:00: mouth [place] 10 mg 00 every Medical morning. Branch empaglifloz 2022-0 Yes [id number] 10mg Take 1 [facility] in 3-31 tablet by ity of ([place]) 00:00: mouth [place] 10 mg 00 every Medical morning. Branch empaglifloz 2022-0 Yes [id number] 10mg Take 1 [facility] in 3-31 tablet by ity of ([place]) 00:00: mouth [place] 10 mg 00 every Medical morning. Branch empaglifloz 2022-0 Yes [id number] 10mg Take 1 [facility] in 3-31 tablet by ity of ([place]) 00:00: mouth [place] 10 mg 00 every Medical morning. Branch empaglifloz 2022-0 Yes [id number] 10mg Take 1 [facility] in 3-31 tablet by ity of ([place]) 00:00: mouth [place] 10 mg 00 every Medical morning. Branch empaglifloz 2022-0 Yes [id number] 10mg Take 1 [facility] in 3-31 tablet by ity of ([place]) 00:00: mouth [place] 10 mg 00 every Medical morning. Branch empaglifloz 2022-0 Yes [id number] 10mg Take 1 [facility] in 3-31 tablet by ity of ([place]) 00:00: mouth [place] 10 mg 00 every Medical morning. Branch empaglifloz 2022-0 Yes [id number] 10mg Take 1 [facility] in 3-31 tablet by ity of ([place]) 00:00: mouth [place] 10 mg 00 every Medical morning. Branch empaglifloz 2022-0 Yes [id number] 10mg Take 1 [facility] in 3-31 tablet by ity of ([place]) 00:00: mouth [place] 10 mg 00 every Medical morning. Branch empaglifloz 2022-0 Yes [id number] 10mg Take 1 [facility] in 3-31 tablet by ity of ([place]) 00:00: mouth [place] 10 mg 00 every Medical morning. Branch empaglifloz 2022-0 Yes [id number] 10mg Take 1 [facility] in 3-31 tablet by ity of ([place]) 00:00: mouth [place] 10 mg 00 every Medical morning. Branch empaglifloz 2022-0 Yes [id number] 10mg Take 1 [facility] in 3-31 tablet by ity of ([place]) 00:00: mouth [place] 10 mg 00 every Medical morning. Branch empaglifloz 2022-0 Yes [id number] 10mg Take 1 [facility] in 3-31 tablet by ity of ([place]) 00:00: mouth [place] 10 mg 00 every Medical morning. Branch empaglifloz 2022-0 2022- No [id number] 10mg Take 1 [facility] in 3-31 10-25 tablet by ity of ([place]) 00:00: 00:00 [place] 10 mg 00 :00 every Medical morning. Branch empaglifloz 2021- No [id number] 10mg Take 1 [facility] in 3-31 10-25 tablet by ity of ([place]) 00:00: 00:[place] 10 mg 00 :00 every Medical morning. Branch empaglifloz 2021- No [id number] 10mg Take 1 [facility] in 3-31 10-25 tablet by ity of ([place]) 00:00: 00:00 [place] 10 mg 00 :00 every Medical morning. Branch empaglifloz 2021- No [id number] 10mg Take 1 [facility] in 3- 10-25 tablet by ity of ([place]) 00:00: 00:00 [place] 10 mg 00 :00 every Medical morning. Branch empaglifloz 2021- No [id number] 10mg Take 1 [facility] in 3- 10-25 tablet by ity of ([place]) 00:00: 00:[place] 10 mg 00 :00 every Medical morning. Branch furosemide Yes [id number] 80mg Take 2 [facility] (LASIX) 40 2-25 02 tablets by ity of mg tablet 00:00: mouth [place] 00 every Medical morning Branch and evening. furosemide 2021-0 Yes [id number] 80mg Take 2 [facility] (LASIX) 40 2-25 02 tablets by ity of mg tablet 00:00: mouth [place] 00 every Medical morning Branch and evening. furosemide 0 Yes [id number] 80mg Take 2 [facility] (LASIX) 40 2-25 02 tablets by ity of mg tablet 00:00: mouth [place] 00 every Medical morning Branch and evening. furosemide 2021-0 Yes [id number] 80mg Take 2 [facility] (LASIX) 40 2-25 02 tablets by ity of mg tablet 00:00: mouth [place] 00 every Medical morning Branch and evening. furosemide 2021-0 Yes [id number] 80mg Take 2 [facility] (LASIX) 40 2-25 02 tablets by ity of mg tablet 00:00: mouth [place] 00 every Medical morning Branch and evening. furosemide 2021-0 Yes [id number] 80mg Take 2 [facility] (LASIX) 40 2-25 02 tablets by ity of mg tablet 00:00: mouth [place] 00 every Medical morning Branch and evening. furosemide 2021-0 Yes [id number] 80mg Take 2 [facility] (LASIX) 40 2-25 02 tablets by ity of mg tablet 00:00: mouth [place] 00 every Medical morning Branch and evening. furosemide 2021-0 Yes [id number] 80mg Take 2 [facility] (LASIX) 40 2-25 02 tablets by ity of mg tablet 00:00: mouth [place] 00 every Medical morning Branch and evening. furosemide 2021-0 Yes [id number] 80mg Take 2 [facility] (LASIX) 40 2-25 02 tablets by ity of mg tablet 00:00: mouth [place] 00 every Medical morning Branch and evening. furosemide 2021-0 Yes [id number] 80mg Take 2 [facility] (LASIX) 40 2-25 02 tablets by ity of mg tablet 00:00: mouth [place] 00 every Medical morning Branch and evening. furosemide 2021-0 Yes [id number] 80mg Take 2 [facility] (LASIX) 40 2-25 02 tablets by ity of mg tablet 00:00: mouth [place] 00 every Medical morning Branch and evening. furosemide 2021-0 Yes [id number] 80mg Take 2 [facility] (LASIX) 40 2-25 02 tablets by ity of mg tablet 00:00: mouth [place] 00 every Medical morning Branch and evening. furosemide 2021-0 Yes [id number] 80mg Take 2 [facility] (LASIX) 40 2-25 02 tablets by ity of mg tablet 00:00: mouth [place] 00 every Medical morning Branch and evening. furosemide 2021-0 Yes [id number] 80mg Take 2 [facility] (LASIX) 40 2-25 02 tablets by ity of mg tablet 00:00: mouth [place] 00 every Medical morning Branch and evening. furosemide 2021-0 Yes [id number] 80mg Take 2 [facility] (LASIX) 40 2-25 02 tablets by ity of mg tablet 00:00: mouth [place] 00 every Medical morning Branch and evening. furosemide 2021-0 Yes [id number] 80mg Take 2 [facility] (LASIX) 40 2-25 02 tablets by ity of mg tablet 00:00: mouth [place] 00 every Medical morning Branch and evening. furosemide 2021-0 Yes [id number] 80mg Take 2 [facility] (LASIX) 40 2-25 02 tablets by ity of mg tablet 00:00: mouth [place] 00 every Medical morning Branch and evening. furosemide 2021-0 Yes [id number] 80mg Take 2 [facility] (LASIX) 40 2-25 02 tablets by ity of mg tablet 00:00: mouth [place] 00 every Medical morning Branch and evening. furosemide 2021-0 Yes [id number] 80mg Take 2 [facility] (LASIX) 40 2-25 02 tablets by ity of mg tablet 00:00: mouth [place] 00 every Medical morning Branch and evening. furosemide 2021-0 Yes [id number] 80mg Take 2 [facility] (LASIX) 40 2-25 02 tablets by ity of mg tablet 00:00: mouth [place] 00 every Medical morning Branch and evening. furosemide 2021-0 Yes [id number] 80mg Take 2 [facility] (LASIX) 40 2-25 02 tablets by ity of mg tablet 00:00: mouth [place] 00 every Medical morning Branch and evening. furosemide 2021-0 Yes [id number] 80mg Take 2 [facility] (LASIX) 40 2-25 02 tablets by ity of mg tablet 00:00: mouth [place] 00 every Medical morning Branch and evening. furosemide 2021-0 Yes [id number] 80mg Take 2 [facility] (LASIX) 40 2-25 02 tablets by ity of mg tablet 00:00: mouth [place] 00 every Medical morning Branch and evening. furosemide 2021-0 Yes [id number] 80mg Take 2 [facility] (LASIX) 40 2-25 02 tablets by ity of mg tablet 00:00: mouth [place] 00 every Medical morning Branch and evening. furosemide 2021-0 Yes [id number] 80mg Take 2 [facility] (LASIX) 40 2-25 02 tablets by ity of mg tablet 00:00: mouth [place] 00 every Medical morning Branch and evening. furosemide 2021-0 Yes [id number] 80mg Take 2 [facility] (LASIX) 40 2-25 02 tablets by ity of mg tablet 00:00: mouth [place] 00 every Medical morning Branch and evening. furosemide 2021-0 Yes [id number] 80mg Take 2 [facility] (LASIX) 40 2-25 02 tablets by ity of mg tablet 00:00: mouth [place] 00 every Medical morning Branch and evening. furosemide 2021-0 Yes [id number] 80mg Take 2 [facility] (LASIX) 40 2-25 02 tablets by ity of mg tablet 00:00: mouth [place] 00 every Medical morning Branch and evening. furosemide 2021-0 Yes [id number] 80mg Take 2 [facility] (LASIX) 40 2-25 02 tablets by ity of mg tablet 00:00: mouth [place] 00 every Medical morning Branch and evening. furosemide 2021-0 Yes [id number] 80mg Take 2 [facility] (LASIX) 40 2-25 02 tablets by ity of mg tablet 00:00: mouth [place] 00 every Medical morning Branch and evening. furosemide 2021-0 Yes [id number] 80mg Take 2 [facility] (LASIX) 40 2-25 02 tablets by ity of mg tablet 00:00: mouth [place] 00 every Medical morning Branch and evening. furosemide 2021-0 Yes [id number] 80mg Take 2 [facility] (LASIX) 40 2-25 02 tablets by ity of mg tablet 00:00: mouth [place] 00 every Medical morning Branch and evening. furosemide 2021-0 Yes [id number] 80mg Take 2 [facility] (LASIX) 40 2-25 02 tablets by ity of mg tablet 00:00: mouth [place] 00 every Medical morning Branch and evening. furosemide 2021-0 Yes [id number] 80mg Take 2 [facility] (LASIX) 40 2-25 02 tablets by ity of mg tablet 00:00: mouth [place] 00 every Medical morning Branch and evening. furosemide 2021-0 Yes [id number] 80mg Take 2 [facility] (LASIX) 40 2-25 02 tablets by ity of mg tablet 00:00: mouth [place] 00 every Medical morning Branch and evening. furosemide 2021-0 Yes [id number] 80mg Take 2 [facility] (LASIX) 40 2-25 02 tablets by ity of mg tablet 00:00: mouth [place] 00 every Medical morning Branch and evening. furosemide 2021-0 Yes [id number] 80mg Take 2 [facility] (LASIX) 40 2-25 02 tablets by ity of mg tablet 00:00: mouth [place] 00 every Medical morning Branch and evening. furosemide 2021-0 Yes [id number] 80mg Take 2 [facility] (LASIX) 40 2-25 02 tablets by ity of mg tablet 00:00: mouth [place] 00 every Medical morning Branch and evening. furosemide 2021-0 Yes [id number] 80mg Take 2 [facility] (LASIX) 40 2-25 02 tablets by ity of mg tablet 00:00: mouth [place] 00 every Medical morning Branch and evening. furosemide 2021-0 Yes [id number] 80mg Take 2 [facility] (LASIX) 40 2-25 02 tablets by ity of mg tablet 00:00: mouth [place] 00 every Medical morning Branch and evening. furosemide 2021-0 Yes [id number] 80mg Take 2 [facility] (LASIX) 40 2-25 02 tablets by ity of mg tablet 00:00: mouth [place] 00 every Medical morning Branch and evening. furosemide 2021-0 Yes [id number] 80mg Take 2 [facility] (LASIX) 40 2-25 02 tablets by ity of mg tablet 00:00: mouth [place] 00 every Medical morning Branch and evening. furosemide 2021-0 Yes [id number] 80mg Take 2 [facility] (LASIX) 40 2-25 02 tablets by ity of mg tablet 00:00: mouth [place] 00 every Medical morning Branch and evening. furosemide 2021-0 Yes [id number] 80mg Take 2 [facility] (LASIX) 40 2-25 02 tablets by ity of mg tablet 00:00: mouth [place] 00 every Medical morning Branch and evening. furosemide 2021-0 Yes [id number] 80mg Take 2 [facility] (LASIX) 40 2-25 02 tablets by ity of mg tablet 00:00: mouth [place] 00 every Medical morning Branch and evening. furosemide 2021-0 Yes [id number] 80mg Take 2 [facility] (LASIX) 40 2-25 02 tablets by ity of mg tablet 00:00: mouth [place] 00 every Medical morning Branch and evening. furosemide 2021-0 Yes [id number] 80mg Take 2 [facility] (LASIX) 40 2-25 02 tablets by ity of mg tablet 00:00: mouth [place] 00 every Medical morning Branch and evening. furosemide 2021-0 Yes [id number] 80mg Take 2 [facility] (LASIX) 40 2-25 02 tablets by ity of mg tablet 00:00: mouth [place] 00 every Medical morning Branch and evening. furosemide 2021-0 202- No [id number] 80mg Take 2 [facility] (LASIX) 40 2-25 10-25 02 tablets by it y of mg tablet 00:00: 00:00 mouth [place] 00 :00 every Medical morning Branch and evening. furosemide 2021- No [id number] 80mg Take 2 [facility] (LASIX) 40 2-25 10-25 02 tablets by it y of mg tablet 00:00: 00:00 mouth [place] 00 :00 every Medical morning Branch and evening. furosemide 2021- No [id number] 80mg Take 2 [facility] (LASIX) 40 2-25 10-25 02 tablets by it y of mg tablet 00:00: 00:00 mouth [place] 00 :00 every Medical morning Branch and evening. furosemide 2021- No [id number] 80mg Take 2 [facility] (LASIX) 40 2-25 10-25 02 tablets by it y of mg tablet 00:00: 00:00 mouth [place] 00 :00 every Medical morning Branch and evening. furosemide 2021- No [id number] 80mg Take 2 [facility] (LASIX) 40 2-25 10-25 02 tablets by it y of mg tablet 00:00: 00:00 mouth [place] 00 :00 every Medical morning Branch and evening. furosemide 2021- No [id number] 80mg Take 2 [facility] (LASIX) 40 2-25 10-25 02 tablets by it y of mg tablet 00:00: 00:00 mouth [place] 00 :00 every Medical morning Branch and evening. furosemide 2021- No [id number] 80mg Take 2 [facility] (LASIX) 40 2-25 10-25 02 tablets by it y of mg tablet 00:00: 00:00 mouth [place] 00 :00 every Medical morning Branch and evening. budesonide 2021- No USE 1 VIAL [facility] 0.25 mg/2 12-28-24 IN ity of mL 00:00: 00:00 NEBULIZER [place] nebulizer 00 :00 TWICE Medical solution DAILY Branch budesonide 2021- No USE 1 VIAL [facility] 0.25 mg/2 2-24 IN ity of mL 00:00: 00:00 NEBULIZER [place] nebulizer 00 :00 TWICE Medical solution DAILY Branch budesonide 2021- No USE 1 VIAL [facility] 0.25 mg/2 2-05 08-24 IN ity of mL 00:00: 00:00 NEBULIZER [place] nebulizer 00 :00 TWICE Medical solution DAILY Branch COMP-AIR 2020-11 Yes 10mg Take 10 mg Uni vers NEBULIZER 2-08 by mouth. ity o f COMPRESSOR 00:00: Medical Branch loteprednol 2020-11 Yes SHAKE Unive rs 0.5 % 2-08 LIQUID AND ity of ophthalmic 00:00: INSTILL 1 [place] suspension 00 DROP IN Medica l drops BOTH EYES Branch TWICE DAILY OPTICHAMBER 2020-11 Yes 10mg Take 10 mg [facility] EOVN LG 2-08 by mouth. ity of MASK Spcr 00:00: [facility] Branch COMP-AIR 2020-11 Yes 10mg Take 10 mg Uni vers NEBULIZER 2-08 by mouth. ity o f COMPRESSOR 00:00: Medical Branch loteprednol 2020-11 Yes SHAKE Unive rs 0.5 % 2-08 LIQUID AND ity of ophthalmic 00:00: INSTILL 1 [place] suspension 00 DROP IN Medica l drops BOTH EYES Branch TWICE DAILY OPTICHAMBER 2020-11 Yes 10mg Take 10 mg [facility] EVON LG 2-08 by mouth. ity of MASK Spcr 00:00: [facility] COMP-AIR 2020-11 Yes 10mg Take 10 mg [facility] vers NEBULIZER 2-08 by mouth. ity o f COMPRESSOR 00:00: Medical Branch loteprednol 2020-11 Yes SHAKE Unive rs 0.5 % 2-08 LIQUID AND ity of ophthalmic 00:00: INSTILL 1 [place] suspension 00 DROP IN Medica l drops BOTH EYES Branch TWICE DAILY OPTICHAMBER 2020-11 Yes 10mg Take 10 mg [facility] EVON LG 2-08 by mouth. ity of MASK Spcr 00:00: [facility] COMP-AIR 2020-11 Yes 10mg Take 10 mg [facility] vers NEBULIZER 2-08 by mouth. ity o f COMPRESSOR 00:00: Medical Branch loteprednol 2020-11 Yes SHAKE Unive rs 0.5 % 2-08 LIQUID AND ity of ophthalmic 00:00: INSTILL 1 [place] suspension 00 DROP IN Medica l drops BOTH EYES Branch TWICE DAILY OPTICHAM2020-11 Yes 10mg Take 10 mg [facility] EVON LG 2-08 by mouth. ity of MASK Spcr 00:00: Medical Branch COMP-AIR 2020-11 Yes 10mg Take 10 mg [facility] vers NEBULIZER 2-08 by mouth. ity o f COMPRESSOR 00:00: Medical Branch loteprednol 2020-11 Yes SHAKE Unive rs 0.5 % 2-08 LIQUID AND ity of ophthalmic 00:00: INSTILL 1 [place] suspension 00 DROP IN Medica l drops BOTH EYES Branch TWICE DAILY OPTICHAM2020-11 Yes 10mg Take 10 mg [facility] EVON LG 2-08 by mouth. ity of MASK Spcr 00:00: Medical Branch COMP-AIR 2020-11 Yes 10mg Take 10 mg [facility] vers NEBULIZER 2-08 by mouth. ity o f COMPRESSOR 00:00: Medical Branch loteprednol 2020-11 Yes SHAKE Unive rs 0.5 % 2-08 LIQUID AND ity of ophthalmic 00:00: INSTILL 1 [place] suspension 00 DROP IN Medica l drops BOTH EYES Branch TWICE DAILY HAM2020-11 Yes 10mg Take 10 mg [facility] EVON LG 2-08 by mouth. ity of MASK Spcr 00:00: [facility] COMP-AIR 2020-11 Yes 10mg Take 10 mg [facility] vers NEBULIZER 2-08 by mouth. ity o f COMPRESSOR 00:00: Medical Branch loteprednol 2020-11 Yes SHAKE Unive rs 0.5 % 2-08 LIQUID AND ity of ophthalmic 00:00: INSTILL 1 [place] suspension 00 DROP IN Medica l drops BOTH EYES Branch TWICE DAILY OPTICHAM2020-11 Yes 10mg Take 10 mg [facility] EVON LG 2-08 by mouth. ity of MASK Spcr 00:00: [facility] [place] COMP-AIR 2020-11 Yes 10mg Take 10 mg [facility] vers NEBULIZER 2-08 by mouth. ity o f COMPRESSOR 00:00: Medical Branch loteprednol 2020-11 Yes SHAKE Unive rs 0.5 % 2-08 LIQUID AND ity of ophthalmic 00:00: INSTILL 1 [place] suspension 00 DROP IN Medica l drops BOTH EYES Branch TWICE DAILY OPTICHAM2020-11 Yes 10mg Take 10 mg [facility] EVON LG 2-08 by mouth. ity of MASK Spcr 00:00: Medical Branch COMP-AIR 2020-11 Yes 10mg Take 10 mg [facility] vers NEBULIZER 2-08 by mouth. ity o f COMPRESSOR 00:00: Medical Branch loteprednol 2020-11 Yes SHAKE Unive rs 0.5 % 2-08 LIQUID AND ity of ophthalmic 00:00: INSTILL 1 [place] suspension 00 DROP IN Medica l drops BOTH EYES Branch TWICE DAILY OPTICHAM2020-11 Yes 10mg Take 10 mg [facility] EVON LG 2-08 by mouth. ity of MASK Spcr 00:00: Medical Branch COMP-AIR 2020-11 Yes 10mg Take 10 mg [facility] vers NEBULIZER 2-08 by mouth. ity o f COMPRESSOR 00:00: Medical Branch loteprednol 2020-11 Yes SHAKE Unive rs 0.5 % 2-08 LIQUID AND ity of ophthalmic 00:00: INSTILL 1 [place] suspension 00 DROP IN Medica l drops BOTH EYES Branch TWICE DAILY HAM2020-11 Yes 10mg Take 10 mg [facility] EVON LG 2-08 by mouth. ity of MASK Spcr 00:00: [facility] COMP-AIR 2020-11 Yes 10mg Take 10 mg Uni vers NEBULIZER 2-08 by mouth. ity o f COMPRESSOR 00:00: Medical Branch loteprednol 2020-11 Yes SHAKE Unive rs 0.5 % 2-08 LIQUID AND ity of ophthalmic 00:00: INSTILL 1 [place] suspension 00 DROP IN Medica l drops BOTH EYES Branch TWICE DAILY OPTICHAM2020-11 Yes 10mg Take 10 mg [facility] EVON LG 2-08 by mouth. ity of MASK Spcr 00:00: [facility] [place] COMP-AIR 2020-11 Yes 10mg Take 10 mg [facility] vers NEBULIZER 2-08 by mouth. ity o f COMPRESSOR 00:00: Medical Branch loteprednol 2020-11 Yes SHAKE Unive rs 0.5 % 2-08 LIQUID AND ity of ophthalmic 00:00: INSTILL 1 [place] suspension 00 DROP IN Medica l drops BOTH EYES Branch TWICE DAILY OPTICHAM2020-11 Yes 10mg Take 10 mg [facility] EVON LG 2-08 by mouth. ity of MASK Spcr 00:00: Medical Branch COMP-AIR 2020-11 Yes 10mg Take 10 mg [facility] vers NEBULIZER 2-08 by mouth. ity o f COMPRESSOR 00:00: Medical Branch loteprednol 2020-11 Yes SHAKE Unive rs 0.5 % 2-08 LIQUID AND ity of ophthalmic 00:00: INSTILL 1 [place] suspension 00 DROP IN Medica l drops BOTH EYES Branch TWICE DAILY OPTICHAM2020-11 Yes 10mg Take 10 mg [facility] EVON LG 2-08 by mouth. ity of MASK Spcr 00:00: Medical Branch COMP-AIR 2020-11 Yes 10mg Take 10 mg [facility] vers NEBULIZER 2-08 by mouth. ity o f COMPRESSOR 00:00: Medical Branch loteprednol 2020-11 Yes SHAKE Unive rs 0.5 % 2-08 LIQUID AND ity of ophthalmic 00:00: INSTILL 1 [place] suspension 00 DROP IN Medica l drops BOTH EYES Branch TWICE DAILY HAM2020-11 Yes 10mg Take 10 mg [facility] EVON LG 2-08 by mouth. ity of MASK Spcr 00:00: [facility] COMP-AIR 2020-11 Yes 10mg Take 10 mg Uni vers NEBULIZER 2-08 by mouth. ity o f COMPRESSOR 00:00: Medical Branch loteprednol 2020-11 Yes SHAKE Unive rs 0.5 % 2-08 LIQUID AND ity of ophthalmic 00:00: INSTILL 1 [place] suspension 00 DROP IN Medica l drops BOTH EYES Branch TWICE DAILY OPTICHAM2020-11 Yes 10mg Take 10 mg [facility] EVON LG 2-08 by mouth. ity of MASK Spcr 00:00: [facility] [place] COMP-AIR 2020-11 Yes 10mg Take 10 mg [facility] vers NEBULIZER 2-08 by mouth. ity o f COMPRESSOR 00:00: Medical Branch loteprednol 2020-11 Yes SHAKE Unive rs 0.5 % 2-08 LIQUID AND ity of ophthalmic 00:00: INSTILL 1 [place] suspension 00 DROP IN Medica l drops BOTH EYES Branch TWICE DAILY OPTICHAM2020-11 Yes 10mg Take 10 mg [facility] EVON LG 2-08 by mouth. ity of MASK Spcr 00:00: Medical Branch COMP-AIR 2020-11 Yes 10mg Take 10 mg [facility] vers NEBULIZER 2-08 by mouth. ity o f COMPRESSOR 00:00: Medical Branch loteprednol 2020-11 Yes SHAKE Unive rs 0.5 % 2-08 LIQUID AND ity of ophthalmic 00:00: INSTILL 1 [place] suspension 00 DROP IN Medica l drops BOTH EYES Branch TWICE DAILY OPTICHAM2020-11 Yes 10mg Take 10 mg [facility] EVON LG 2-08 by mouth. ity of MASK Spcr 00:00: Medical Branch COMP-AIR 2020-11 Yes 10mg Take 10 mg [facility] vers NEBULIZER 2-08 by mouth. ity o f COMPRESSOR 00:00: Medical Branch loteprednol 2020-11 Yes SHAKE Unive rs 0.5 % 2-08 LIQUID AND ity of ophthalmic 00:00: INSTILL 1 [place] suspension 00 DROP IN Medica l drops BOTH EYES Branch TWICE DAILY HAM2020-11 Yes 10mg Take 10 mg [facility] EVON LG 2-08 by mouth. ity of MASK Spcr 00:00: [facility] COMP-AIR 2020-11 Yes 10mg Take 10 mg Uni vers NEBULIZER 2-08 by mouth. ity o f COMPRESSOR 00:00: Medical Branch loteprednol 2020-11 Yes SHAKE Unive rs 0.5 % 2-08 LIQUID AND ity of ophthalmic 00:00: INSTILL 1 [place] suspension 00 DROP IN Medica l drops BOTH EYES Branch TWICE DAILY OPTICHAM2020-11 Yes 10mg Take 10 mg [facility] EVON LG 2-08 by mouth. ity of MASK Spcr 00:00: [facility] [place] COMP-AIR 2020-11 Yes 10mg Take 10 mg Uni vers NEBULIZER 2-08 by mouth. ity o f COMPRESSOR 00:00: Medical Branch loteprednol 2020-11 Yes SHAKE Unive rs 0.5 % 2-08 LIQUID AND ity of ophthalmic 00:00: INSTILL 1 [place] suspension 00 DROP IN Medica l drops BOTH EYES Branch TWICE DAILY OPTICHAM2020-11 Yes 10mg Take 10 mg [facility] EVON LG 2-08 by mouth. ity of MASK Spcr 00:00: Medical Branch COMP-AIR 2020-11 Yes 10mg Take 10 mg [facility] vers NEBULIZER 2-08 by mouth. ity o f COMPRESSOR 00:00: Medical Branch loteprednol 2020-11 Yes SHAKE Unive rs 0.5 % 2-08 LIQUID AND ity of ophthalmic 00:00: INSTILL 1 [place] suspension 00 DROP IN Medica l drops BOTH EYES Branch TWICE DAILY OPTICHAM2020-11 Yes 10mg Take 10 mg [facility] EVON LG 2-08 by mouth. ity of MASK Spcr 00:00: Medical Branch COMP-AIR 2020-11 Yes 10mg Take 10 mg [facility] vers NEBULIZER 2-08 by mouth. ity o f COMPRESSOR 00:00: Medical Branch loteprednol 2020-11 Yes SHAKE Unive rs 0.5 % 2-08 LIQUID AND ity of ophthalmic 00:00: INSTILL 1 [place] suspension 00 DROP IN Medica l drops BOTH EYES Branch TWICE DAILY HAM2020-11 Yes 10mg Take 10 mg [facility] EVON LG 2-08 by mouth. ity of MASK Spcr 00:00: [facility] COMP-AIR 2020-11 Yes 10mg Take 10 mg Uni vers NEBULIZER 2-08 by mouth. ity o f COMPRESSOR 00:00: Medical Branch loteprednol 2020-11 Yes SHAKE Unive rs 0.5 % 2-08 LIQUID AND ity of ophthalmic 00:00: INSTILL 1 [place] suspension 00 DROP IN Medica l drops BOTH EYES Branch TWICE DAILY OPTICHAM2020-11 Yes 10mg Take 10 mg [facility] EVON LG 2-08 by mouth. ity of MASK Spcr 00:00: [facility] [place] COMP-AIR 2020-11 Yes 10mg Take 10 mg Uni vers NEBULIZER 2-08 by mouth. ity o f COMPRESSOR 00:00: Medical Branch loteprednol 2020-11 Yes SHAKE Unive rs 0.5 % 2-08 LIQUID AND ity of ophthalmic 00:00: INSTILL 1 [place] suspension 00 DROP IN Medica l drops BOTH EYES Branch TWICE DAILY OPTICHAM2020-11 Yes 10mg Take 10 mg [facility] EVON LG 2-08 by mouth. ity of MASK Spcr 00:00: Medical Branch COMP-AIR 2020-11 Yes 10mg Take 10 mg Uni vers NEBULIZER 2-08 by mouth. ity o f COMPRESSOR 00:00: Medical Branch loteprednol 2020-11 Yes SHAKE Unive rs 0.5 % 2-08 LIQUID AND ity of ophthalmic 00:00: INSTILL 1 [place] suspension 00 DROP IN Medica l drops BOTH EYES Branch TWICE DAILY OPTICHAM2020-11 Yes 10mg Take 10 mg [facility] EVON LG 2-08 by mouth. ity of MASK Spcr 00:00: Medical Branch COMP-AIR 2020-11 Yes 10mg Take 10 mg Uni vers NEBULIZER 2-08 by mouth. ity o f COMPRESSOR 00:00: Medical Branch loteprednol 2020-11 Yes SHAKE Unive rs 0.5 % 2-08 LIQUID AND ity of ophthalmic 00:00: INSTILL 1 [place] suspension 00 DROP IN Medica l drops BOTH EYES Branch TWICE DAILY HAM2020-11 Yes 10mg Take 10 mg [facility] EVON LG 2-08 by mouth. ity of MASK Spcr 00:00: [facility] COMP-AIR 2020-11 Yes 10mg Take 10 mg Uni vers NEBULIZER 2-08 by mouth. ity o f COMPRESSOR 00:00: Medical Branch loteprednol 2020-11 Yes SHAKE Unive rs 0.5 % 2-08 LIQUID AND ity of ophthalmic 00:00: INSTILL 1 [place] suspension 00 DROP IN Medica l drops BOTH EYES Branch TWICE DAILY OPTICHAM2020-11 Yes 10mg Take 10 mg [facility] EVON LG 2-08 by mouth. ity of MASK Spcr 00:00: [facility] [place] COMP-AIR 2020-11 Yes 10mg Take 10 mg [facility] NEBULIZER 2-08 by mouth. [facility] o f COMPRESSOR 00:00: [facility] loteprednol 2020-11 Yes SHAKE Unive rs 0.5 % 2-08 LIQUID AND [facility] 00:00: [facility]STILL 1 [place] 00 DROP IN [facility] drops B[facility] EYES [facility] TWICE DAILY OPTICHAM2020-11 Yes 10mg Take 10 mg [facility] 2-08 by mouth. [facility] M[facility] Spcr 00:00: [facility] COMP-AIR 2020-11 Yes 10mg Take 10 mg [facility] NEBULIZER 2-08 by mouth. ity o f COMPRESSOR 00:00: [facility] loteprednol 2020-11 Yes SHAKE Unive rs 0.5 % 2-08 LIQUID AND [facility] 00:00: [facility]STILL [facility] [place] 00 DROP IN [facility] drops B[facility] EYES [facility] TWICE DAILY OPTICHAM2020-11 Yes 10mg Take 10 mg [facility] 2-08 by mouth. [facility] MASK Spcr 00:00: [facility] COMP-AIR 2020-11 Yes 10mg Take 10 mg [facility] NEBULIZER 2-08 by mouth. ity o f COMPRESSOR 00:00: [facility] loteprednol 2020-11 Yes SHAKE Unive rs 0.5 % 2-08 LIQUID AND [facility] ophthal[facility] 00:00: [facility]STILL [facility] [place] DROP IN [facility] drops B[facility] EYES [facility] TWICE DAILY HAM2020-11 Yes 10mg Take 10 mg [facility] 2-08 by mouth. [facility] MASK Spcr 00:00: [facility] COMP-AIR 2020-11 Yes 10mg Take 10 mg [facility] NEBULIZER 2-08 by mouth. ity o f COMPRESSOR 00:00: [facility] loteprednol 2020-11 Yes SHAKE Unive rs 0.5 % 2-08 LIQUID AND [facility] ophthal[facility] 00:00: [facility]STILL 1 [place] 00 DROP IN [facility] drops B[facility] EYES [facility] TWICE DAILY OPTICHAM2020-11 Yes 10mg Take 10 mg [facility] 2-08 by mouth. [facility] MASK Spcr 00:00: [facility] COMP-AIR 2020-11 Yes 10mg Take 10 mg [facility] NEBULIZER 2-08 by mouth. ity o f COMPRESSOR 00:00: [facility] loteprednol 2020-11 Yes SHAKE Unive rs 0.5 % 2-08 LIQUID AND [facility] ophthal[facility] 00:00: [facility]STILL 1 [place] 00 DROP IN [facility] drops B[facility] EYES [facility] TWICE DAILY OPTICHAM2020-11 Yes 10mg Take 10 mg [facility] 2-08 by mouth. [facility] MASK Spcr 00:00: [facility] COMP-AIR 2020-11 Yes 10mg Take 10 mg [facility] NEBULIZER 2-08 by mouth. ity o f COMPRESSOR 00:00: [facility] loteprednol 2020-11 Yes SHAKE Unive rs 0.5 % 2-08 LIQUID AND [facility] ophthal[facility] 00:00: [facility]STILL 1 [place] 00 DROP IN [facility] drops B[facility] EYES [facility] TWICE DAILY OPTICHAM2020-11 Yes 10mg Take 10 mg [facility] 2-08 by mouth. [facility] MASK Spcr 00:00: [facility] COMP-AIR 2020-11 Yes 10mg Take 10 mg [facility] NEBULIZER 2-08 by mouth. ity o f COMPRESSOR 00:00: [facility] loteprednol 2020-11 Yes SHAKE Unive rs 0.5 % 2-08 LIQUID AND [facility] ophthalmic 00:00: [facility]STILL 1 [place] 00 DROP IN [facility] drops BOTH EYES [facility] TWICE DAILY HAM2020-11 Yes 10mg Take 10 mg [facility] 2-08 by mouth. ity of MASK Spcr 00:00: [facility] COMP-AIR 2020-11 Yes 10mg Take 10 mg [facility] NEBULIZER 2-08 by mouth. ity o f COMPRESSOR 00:00: [facility] loteprednol 2020-11 Yes SHAKE Unive rs 0.5 % 2-08 LIQUID AND [facility] ophthalmic 00:00: [facility]STILL 1 [place] 00 DROP IN [facility] drops B[facility] EYES [facility] TWICE DAILY OPTICHAM2020-11 Yes 10mg Take 10 mg [facility] 2-08 by mouth. [facility] MASK Spcr 00:00: [facility] COMP-AIR 2020-11 Yes 10mg Take 10 mg [facility] NEBULIZER 2-08 by mouth. ity o f COMPRESSOR 00:00: [facility] loteprednol 2020-11 Yes SHAKE Unive rs 0.5 % 2-08 LIQUID AND [facility] ophthalmic 00:00: [facility]STILL 1 [place] 00 DROP IN [facility] drops BOTH EYES [facility] TWICE DAILY OPTICHAM2020-11 Yes 10mg Take 10 mg [facility] 2-08 by mouth. it[facility] of MASK Spcr 00:00: [facility] COMP-AIR 2020-11 Yes 10mg Take 10 mg [facility] NEBULIZER 2-08 by mouth. ity o f COMPRESSOR 00:00: [facility] loteprednol 2020-11 Yes SHAKE Unive rs 0.5 % 2-08 LIQUID AND [facility] ophthalmic 00:00: INSTILL 1 [place] 00 DROP IN [facility] drops BOTH EYES [facility] TWICE DAILY OPTICHAM2020-11 Yes 10mg Take 10 mg [facility] 2-08 by mouth. it[facility] of MASK Spcr 00:00: [facility] COMP-AIR 2020-11 Yes 10mg Take 10 mg [facility] NEBULIZER 2-08 by mouth. ity o f COMPRESSOR 00:00: [facility] loteprednol 2020-11 Yes SHAKE Unive rs 0.5 % 2-08 LIQUID AND [facility] ophthalmic 00:00: INSTILL 1 [place] 00 DROP IN [facility] drops BOTH EYES [facility] TWICE DAILY HAM2020-11 Yes 10mg Take 10 mg [facility] 2-08 by mouth. ity of MASK Spcr 00:00: [facility] COMP-AIR 2020-11 Yes 10mg Take 10 mg [facility] NEBULIZER 2-08 by mouth. ity o f COMPRESSOR 00:00: [facility] loteprednol 2020-11 Yes SHAKE Unive rs 0.5 % 2-08 LIQUID AND [facility]y of ophthalmic 00:00: INSTILL 1 [place] 00 DROP IN [facility] drops BOTH EYES [facility] TWICE DAILY OPTICHAM2020-11 Yes 10mg Take 10 mg [facility] 2-08 by mouth. ity of MASK Spcr 00:00: [facility] COMP-AIR 2020-11 Yes 10mg Take 10 mg [facility] NEBULIZER 2-08 by mouth. ity o f COMPRESSOR 00:00: [facility] loteprednol 2020-11 Yes SHAKE Unive rs 0.5 % 2-08 LIQUID AND [facility] ophthalmic 00:00: INSTILL 1 [place] 00 DROP IN [facility] drops BOTH EYES [facility] TWICE DAILY OPTICHAM2020-11 Yes 10mg Take 10 mg [facility] 2-08 by mouth. ity of MASK Spcr 00:00: [facility] COMP-AIR 2020-11 Yes 10mg Take 10 mg [facility] NEBULIZER 2-08 by mouth. ity o f COMPRESSOR 00:00: [facility] loteprednol 2020-11 Yes SHAKE Unive rs 0.5 % 2-08 LIQUID AND [facility] ophthalmic 00:00: INSTILL 1 [place] 00 DROP IN [facility] drops BOTH EYES [facility] TWICE DAILY OPTICHAM2020-11 Yes 10mg Take 10 mg [facility] 2-08 by mouth. ity of MASK Spcr 00:00: [facility] COMP-AIR 2020-11 Yes 10mg Take 10 mg [facility] NEBULIZER 2-08 by mouth. ity o f COMPRESSOR 00:00: [facility] loteprednol 2020-11 Yes SHAKE Unive rs 0.5 % 2-08 LIQUID AND [facility]y of ophthalmic 00:00: INSTILL 1 [place] 00 DROP IN [facility] drops BOTH EYES [facility] TWICE DAILY HAM2020-11 Yes 10mg Take 10 mg [facility] 2-08 by mouth. ity of MASK Spcr 00:00: [facility] COMP-AIR 2020-11 Yes 10mg Take 10 mg [facility] NEBULIZER 2-08 by mouth. ity o f COMPRESSOR 00:00: [facility] loteprednol 2020-11 Yes SHAKE Unive rs 0.5 % 2-08 LIQUID AND ity of ophthalmic 00:00: INSTILL 1 [place] 00 DROP IN [facility] drops BOTH EYES [facility] TWICE DAILY OPTICHAM2020-11 Yes 10mg Take 10 mg [facility] 2-08 by mouth. ity of MASK Spcr 00:00: [facility] COMP-AIR 2020-11 Yes 10mg Take 10 mg [facility] NEBULIZER 2-08 by mouth. ity o f COMPRESSOR 00:00: [facility] loteprednol 2020-11 Yes SHAKE Unive rs 0.5 % 2-08 LIQUID AND [facility]y of ophthalmic 00:00: INSTILL 1 [place] 00 DROP IN [facility] drops BOTH EYES [facility] TWICE DAILY OPTICHAM2020-11 Yes 10mg Take 10 mg [facility] 2-08 by mouth. ity of MASK Spcr 00:00: [facility] COMP-AIR 2020-11 Yes 10mg Take 10 mg [facility] NEBULIZER 2-08 by mouth. ity o f COMPRESSOR 00:00: [facility] loteprednol 2020-11 Yes SHAKE Unive rs 0.5 % 2-08 LIQUID AND [facility]y of ophthalmic 00:00: INSTILL 1 [place] 00 DROP IN [facility] drops BOTH EYES [facility] TWICE DAILY OPTICHAM2020-11 Yes 10mg Take 10 mg [facility] 2-08 by mouth. ity of MASK Spcr 00:00: [facility] COMP-AIR 2020-11 Yes 10mg Take 10 mg [facility] NEBULIZER 2-08 by mouth. ity o f COMPRESSOR 00:00: [facility] loteprednol 2020-11 Yes SHAKE Unive rs 0.5 % 2-08 LIQUID AND ity of ophthalmic 00:00: INSTILL 1 [place] 00 DROP IN [facility] drops BOTH EYES [facility] TWICE DAILY HAM2020-11 Yes 10mg Take 10 mg [facility] 2-08 by mouth. ity of MASK Spcr 00:00: [facility] COMP-AIR 2020-11 Yes 10mg Take 10 mg [facility] NEBULIZER 2-08 by mouth. ity o f COMPRESSOR 00:00: [facility] loteprednol 2020-11 Yes SHAKE Unive rs 0.5 % 2-08 LIQUID AND ity of ophthalmic 00:00: INSTILL 1 [place] 00 DROP IN [facility] drops BOTH EYES [facility] TWICE DAILY OPTICHAM2020-11 Yes 10mg Take 10 mg [facility] 2-08 by mouth. ity of MASK Spcr 00:00: [facility] COMP-AIR 2020-11 Yes 10mg Take 10 mg [facility] NEBULIZER 2-08 by mouth. ity o f COMPRESSOR 00:00: [facility] loteprednol 2020-11 Yes SHAKE Unive rs 0.5 % 2-08 LIQUID AND [facility]y of ophthalmic 00:00: INSTILL 1 [place] 00 DROP IN [facility] drops BOTH EYES [facility] TWICE DAILY OPTICHAM2020-11 Yes 10mg Take 10 mg [facility] 2-08 by mouth. ity of MASK Spcr 00:00: [facility] COMP-AIR 2020-11 Yes 10mg Take 10 mg [facility] NEBULIZER 2-08 by mouth. ity o f COMPRESSOR 00:00: [facility] loteprednol 2020-11 Yes SHAKE Unive rs 0.5 % 2-08 LIQUID AND ity of ophthalmic 00:00: INSTILL 1 [place] 00 DROP IN [facility] drops BOTH EYES [facility] TWICE DAILY OPTICHAM2020-11 Yes 10mg Take 10 mg [facility] 2-08 by mouth. ity of MASK Spcr 00:00: [facility] COMP-AIR 2020-11 Yes 10mg Take 10 mg [facility] NEBULIZER 2-08 by mouth. ity o f COMPRESSOR 00:00: [facility] loteprednol 2020-11 Yes SHAKE Unive rs 0.5 % 2-08 LIQUID AND [facility]y of ophthalmic 00:00: INSTILL 1 [place] 00 DROP IN [facility] drops BOTH EYES [facility] TWICE DAILY HAM2020-11 Yes 10mg Take 10 mg [facility] 2-08 by mouth. ity of MASK Spcr 00:00: [facility] COMP-AIR 2020-11 Yes 10mg Take 10 mg [facility] NEBULIZER 2-08 by mouth. ity o f COMPRESSOR 00:00: [facility] loteprednol 2020-11 Yes SHAKE Unive rs 0.5 % 2-08 LIQUID AND ity of ophthalmic 00:00: INSTILL 1 [place] 00 DROP IN [facility] drops BOTH EYES [facility] TWICE DAILY OPTICHAM2020-11 Yes 10mg Take 10 mg [facility] 2-08 by mouth. ity of MASK Spcr 00:00: [facility] COMP-AIR 2020-11 Yes 10mg Take 10 mg [facility] NEBULIZER 2-08 by mouth. ity o f COMPRESSOR 00:00: [facility] loteprednol 2020-11 Yes SHAKE Unive rs 0.5 % 2-08 LIQUID AND ity of ophthalmic 00:00: INSTILL 1 [place] 00 DROP IN [facility] drops BOTH EYES [facility] TWICE DAILY OPTICHAM2020-11 Yes 10mg Take 10 mg [facility] 2-08 by mouth. ity of MASK Spcr 00:00: [facility] COMP-AIR 2020-11 Yes 10mg Take 10 mg [facility] NEBULIZER 2-08 by mouth. ity o f COMPRESSOR 00:00: [facility] loteprednol 2020-11 Yes SHAKE Unive rs 0.5 % 2-08 LIQUID AND ity of ophthalmic 00:00: INSTILL 1 [place] 00 DROP IN [facility] drops BOTH EYES [facility] TWICE DAILY OPTICHAM2020-11 Yes 10mg Take 10 mg [facility] 2-08 by mouth. ity of MASK Spcr 00:00: [facility] COMP-AIR 2020-11 Yes 10mg Take 10 mg [facility] NEBULIZER 2-08 by mouth. ity o f COMPRESSOR 00:00: [facility] loteprednol 2020-11 Yes SHAKE Unive rs 0.5 % 2-08 LIQUID AND ity of ophthalmic 00:00: INSTILL 1 [place] 00 DROP IN [facility] drops BOTH EYES [facility] TWICE DAILY HAM2020-11 Yes 10mg Take 10 mg [facility] 2-08 by mouth. ity of MASK Spcr 00:00: [facility] COMP-AIR 2020-11 Yes 10mg Take 10 mg [facility] NEBULIZER 2-08 by mouth. ity o f COMPRESSOR 00:00: [facility] loteprednol 2020-11 Yes SHAKE Unive rs 0.5 % 2-08 LIQUID AND ity of ophthalmic 00:00: INSTILL 1 [place] 00 DROP IN [facility] drops BOTH EYES [facility] TWICE DAILY OPTICHAM2020-11 Yes 10mg Take 10 mg [facility] 2-08 by mouth. ity of MASK Spcr 00:00: [facility] COMP-AIR 2020-11 Yes 10mg Take 10 mg [facility] NEBULIZER 2-08 by mouth. ity o f COMPRESSOR 00:00: [facility] loteprednol 2020-11 Yes SHAKE Unive rs 0.5 % 2-08 LIQUID AND ity of ophthalmic 00:00: INSTILL 1 [place] 00 DROP IN [facility] drops BOTH EYES [facility] TWICE DAILY OPTICHAM2020-11 Yes 10mg Take 10 mg [facility] 2-08 by mouth. ity of MASK Spcr 00:00: [facility] COMP-AIR 2020-11 Yes 10mg Take 10 mg [facility] NEBULIZER 2-08 by mouth. ity o f COMPRESSOR 00:00: [facility] loteprednol 2020-11 Yes SHAKE Unive rs 0.5 % 2-08 LIQUID AND ity of ophthalmic 00:00: INSTILL 1 [place] 00 DROP IN [facility] drops BOTH EYES Branch TWICE DAILY OPTICHAM2020-11 Yes 10mg Take 10 mg [facility] 2-08 by mouth. ity of MASK Spcr 00:00: [facility] COMP-AIR 2020-11 Yes 10mg Take 10 mg [facility] NEBULIZER 2-08 by mouth. ity o f COMPRESSOR 00:00: [facility] loteprednol 2020-11 Yes SHAKE Unive rs 0.5 % 2-08 LIQUID AND ity of ophthalmic 00:00: INSTILL 1 [place] 00 DROP IN [facility] drops BOTH EYES [facility] TWICE DAILY HAM2020-11 Yes 10mg Take 10 mg [facility] 2-08 by mouth. ity of MASK Spcr 00:00: [facility] COMP-AIR 2020-11 Yes 10mg Take 10 mg [facility] NEBULIZER 2-08 by mouth. ity o f COMPRESSOR 00:00: [facility] loteprednol 2020-11 Yes SHAKE Unive rs 0.5 % 2-08 LIQUID AND ity of ophthalmic 00:00: INSTILL 1 [place] 00 DROP IN [facility] drops BOTH EYES [facility] TWICE DAILY OPTICHAM2020-11 Yes 10mg Take 10 mg [facility] 2-08 by mouth. ity of MASK Spcr 00:00: [facility] COMP-AIR 2020-11 Yes 10mg Take 10 mg [facility] NEBULIZER 2-08 by mouth. ity o f COMPRESSOR 00:00: [facility] loteprednol 2020-11 Yes SHAKE Unive rs 0.5 % 2-08 LIQUID AND ity of ophthalmic 00:00: INSTILL 1 [place] 00 DROP IN [facility] drops BOTH EYES [facility] TWICE DAILY OPTICHAM2020-11 Yes 10mg Take 10 mg [facility] 2-08 by mouth. ity of MASK Spcr 00:00: [facility] COMP-AIR 2020-11 Yes 10mg Take 10 mg [facility] NEBULIZER 2-08 by mouth. ity o f COMPRESSOR 00:00: [facility] loteprednol 2020-11 Yes SHAKE Unive rs 0.5 % 2-08 LIQUID AND ity of ophthalmic 00:00: INSTILL 1 [place] 00 DROP IN [facility] drops BOTH EYES Branch TWICE DAILY OPTICHAM2020-11 Yes 10mg Take 10 mg [facility] 2-08 by mouth. ity of MASK Spcr 00:00: [facility] COMP-AIR 2020-11 Yes 10mg Take 10 mg [facility] NEBULIZER 2-08 by mouth. ity o f COMPRESSOR 00:00: [facility] loteprednol 2020-11 Yes SHAKE Unive rs 0.5 % 2-08 LIQUID AND ity of ophthalmic 00:00: INSTILL 1 [place] 00 DROP IN [facility] drops BOTH EYES [facility] TWICE DAILY HAM2020-11 Yes 10mg Take 10 mg [facility] 2-08 by mouth. ity of MASK Spcr 00:00: [facility] COMP-AIR 2020-11 Yes 10mg Take 10 mg [facility] NEBULIZER 2-08 by mouth. ity o f COMPRESSOR 00:00: [facility] loteprednol 2020-11 Yes SHAKE Unive rs 0.5 % 2-08 LIQUID AND ity of ophthalmic 00:00: INSTILL 1 [place] 00 DROP IN [facility] drops BOTH EYES [facility] TWICE DAILY OPTICHAM2020-11 Yes 10mg Take 10 mg [facility] 2-08 by mouth. ity of MASK Spcr 00:00: [facility] COMP-AIR 2020-11 Yes 10mg Take 10 mg [facility] NEBULIZER 2-08 by mouth. ity o f COMPRESSOR 00:00: [facility] loteprednol 2020-11 Yes SHAKE Unive rs 0.5 % 2-08 LIQUID AND ity of ophthalmic 00:00: INSTILL 1 [place] 00 DROP IN [facility] drops BOTH EYES [facility] TWICE DAILY OPTICHAMBER 2020-11 Yes 10mg Take 10 mg [facility] 2-08 by mouth. ity of MASK Spcr 00:00: [facility] COMP-AIR 2020-11 Yes 10mg Take 10 mg [facility] NEBULIZER 2-08 by mouth. ity o f COMPRESSOR 00:00: [facility] loteprednol 2020-11 Yes SHAKE Unive rs 0.5 % 2-08 LIQUID AND ity of ophthalmic 00:00: INSTILL 1 [place] 00 DROP IN [facility] drops BOTH EYES [facility] TWICE DAILY OPTICHAMBER 2020-11 Yes 10mg Take 10 mg [facility] 2-08 by mouth. ity of MASK Spcr 00:00: [facility] COMP-AIR 2020-11 Yes 10mg Take 10 mg [facility] NEBULIZER 2-08 by mouth. ity o f COMPRESSOR 00:00: [facility] loteprednol 2020-11 Yes SHAKE Unive rs 0.5 % 2-08 LIQUID AND ity of ophthalmic 00:00: INSTILL 1 [place] 00 DROP IN [facility] drops BOTH EYES [facility] TWICE DAILY COMP-AIR 2020-11 Yes 10mg Take 10 mg [facility] NEBULIZER 2-08 by mouth. ity o f COMPRESSOR 00:00: [facility] loteprednol 2020-11 Yes SHAKE Unive rs 0.5 % 2-08 LIQUID AND ity of ophthalmic 00:00: INSTILL 1 [place] 00 DROP IN Med[facility] drops BOTH EYES [facility] TWICE DAILY COMP-AIR 2020-11 Yes 10mg Take 10 mg [facility] NEBULIZER 2-08 by mouth. ity o f COMPRESSOR 00:00: [facility] loteprednol 2020-11 Yes SHAKE Unive rs 0.5 % 2-08 LIQUID AND ity of ophthalmic 00:00: INSTILL 1 [place] 00 DROP IN [facility] drops BOTH EYES [facility] TWICE DAILY COMP-AIR 2020-11 Yes 10mg Take 10 mg [facility] NEBULIZER 2-08 by mouth. ity o f COMPRESSOR 00:00: [facility] loteprednol 2020-11 Yes SHAKE Unive rs 0.5 % 2-08 LIQUID AND ity of ophthalmic 00:00: INSTILL 1 [place] 00 DROP IN Med[facility] drops BOTH EYES [facility] TWICE DAILY COMP-AIR 2020-11 Yes 10mg Take 10 mg [facility] NEBULIZER 2-08 by mouth. ity o f COMPRESSOR 00:00: [facility] loteprednol 2020-11 Yes SHAKE Unive rs 0.5 % 2-08 LIQUID AND ity of ophthalmic 00:00: INSTILL 1 [place] 00 DROP IN [facility] drops BOTH EYES [facility] TWICE DAILY COMP-AIR 2020-11 Yes 10mg Take 10 mg [facility] NEBULIZER 2-08 by mouth. ity o f COMPRESSOR 00:00: [facility] loteprednol 2020-11 Yes SHAKE Unive rs 0.5 % 2-08 LIQUID AND ity of ophthalmic 00:00: INSTILL 1 [place] 00 DROP IN [facility] drops BOTH EYES [facility] TWICE DAILY COMP-AIR 2020-11 Yes 10mg Take 10 mg [facility] NEBULIZER 2-08 by mouth. ity o f COMPRESSOR 00:00: [facility] loteprednol 2020-11 Yes SHAKE Unive rs 0.5 % 2-08 LIQUID AND ity of ophthalmic 00:00: INSTILL 1 [place] 00 DROP IN [facility] drops BOTH EYES [facility] TWICE DAILY COMP-AIR 2020-11 Yes 10mg Take 10 mg [facility] NEBULIZER 2-08 by mouth. ity o f COMPRESSOR 00:00: [facility] loteprednol 2020-11 Yes SHAKE Unive rs 0.5 % 2-08 LIQUID AND ity of ophthalmic 00:00: INSTILL 1 [place] 00 DROP IN [facility] drops BOTH EYES [facility] TWICE DAILY COMP-AIR 2020-11 Yes 10mg Take 10 mg [facility] NEBULIZER 2-08 by mouth. ity o f COMPRESSOR 00:00: [facility] loteprednol 2020-11 Yes SHAKE Unive rs 0.5 % 2-08 LIQUID AND ity of ophthalmic 00:00: INSTILL 1 [place] 00 DROP IN [facility] drops BOTH EYES [facility] TWICE DAILY COMP-AIR 2020-11 Yes 10mg Take 10 mg [facility] NEBULIZER 2-08 by mouth. ity o f COMPRESSOR 00:00: [facility] loteprednol 2020-11 Yes SHAKE Unive rs 0.5 % 2-08 LIQUID AND ity of ophthalmic 00:00: INSTILL 1 [place] 00 DROP IN [facility] drops BOTH EYES [facility] TWICE DAILY COMP-AIR 2020-11 Yes 10mg Take 10 mg [facility] NEBULIZER 2-08 by mouth. ity o f COMPRESSOR 00:00: [facility] loteprednol 2020-11 Yes SHAKE Unive rs 0.5 % 2-08 LIQUID AND ity of ophthalmic 00:00: INSTILL 1 [place] 00 DROP IN [facility] drops BOTH EYES [facility] TWICE DAILY COMP-AIR 2020-11 Yes 10mg Take 10 mg [facility] NEBULIZER 2-08 by mouth. ity o f COMPRESSOR 00:00: [facility] loteprednol 2020-11 Yes SHAKE Unive rs 0.5 % 2-08 LIQUID AND ity of ophthalmic 00:00: INSTILL 1 [place] 00 DROP IN [facility] drops BOTH EYES [facility] TWICE DAILY COMP-AIR 2020-11 Yes 10mg Take 10 mg [facility] NEBULIZER 2-08 by mouth. ity o f COMPRESSOR 00:00: [facility] loteprednol 2020-11 Yes SHAKE Unive rs 0.5 % 2-08 LIQUID AND ity of ophthalmic 00:00: INSTILL 1 [place] 00 DROP IN [facility] drops BOTH EYES [facility] TWICE DAILY COMP-AIR 2020-11 Yes 10mg Take 10 mg [facility] NEBULIZER 2-08 by mouth. ity o f COMPRESSOR 00:00: [facility] loteprednol 2020-11 Yes SHAKE Unive rs 0.5 % 2-08 LIQUID AND ity of ophthalmic 00:00: INSTILL 1 [place] 00 DROP IN [facility] drops BOTH EYES [facility] TWICE DAILY COMP-AIR 2020-11 Yes 10mg Take 10 mg [facility] NEBULIZER 2-08 by mouth. ity o f COMPRESSOR 00:00: [facility] loteprednol 2020-11 Yes SHAKE Unive rs 0.5 % 2-08 LIQUID AND ity of ophthalmic 00:00: INSTILL 1 [place] 00 DROP IN Med[facility] drops BOTH EYES [facility] TWICE DAILY COMP-AIR 2020-11 Yes 10mg Take 10 mg [facility] NEBULIZER 2-08 by mouth. ity o f COMPRESSOR 00:00: [facility] loteprednol 2020-11 Yes SHAKE Unive rs 0.5 % 2-08 LIQUID AND ity of ophthalmic 00:00: INSTILL 1 [place] 00 DROP IN [facility] drops BOTH EYES [facility] TWICE DAILY COMP-AIR 2020-11 Yes 10mg Take 10 mg [facility] NEBULIZER 2-08 by mouth. ity o f COMPRESSOR 00:00: [facility] loteprednol 2020-11 Yes SHAKE Unive rs 0.5 % 2-08 LIQUID AND ity of ophthalmic 00:00: INSTILL 1 [place] 00 DROP IN [facility] drops BOTH EYES [facility] TWICE DAILY COMP-AIR 2020-11 Yes 10mg Take 10 mg [facility] NEBULIZER 2-08 by mouth. ity o f COMPRESSOR 00:00: [facility] loteprednol 2020-11 Yes SHAKE Unive rs 0.5 % 2-08 LIQUID AND ity of ophthalmic 00:00: INSTILL 1 [place] 00 DROP IN [facility] drops BOTH EYES [facility] TWICE DAILY COMP-AIR 2020-11 Yes 10mg Take 10 mg [facility] NEBULIZER 2-08 by mouth. ity o f COMPRESSOR 00:00: [facility] loteprednol 2020-11 Yes SHAKE Unive rs 0.5 % 2-08 LIQUID AND ity of ophthalmic 00:00: INSTILL 1 [place] 00 DROP IN [facility] drops BOTH EYES [facility] TWICE DAILY COMP-AIR 2020-11 Yes 10mg Take 10 mg [facility] NEBULIZER 2-08 by mouth. ity o f COMPRESSOR 00:00: [facility] loteprednol 2020-11 Yes SHAKE Unive rs 0.5 % 2-08 LIQUID AND ity of ophthalmic 00:00: INSTILL 1 [place] 00 DROP IN Med[facility] drops BOTH EYES [facility] TWICE DAILY COMP-AIR 2020-11 Yes 10mg Take 10 mg [facility] NEBULIZER 2-08 by mouth. ity o f COMPRESSOR 00:00: [facility] loteprednol 2020-11 Yes SHAKE Unive rs 0.5 % 2-08 LIQUID AND ity of ophthalmic 00:00: INSTILL 1 [place] 00 DROP IN [facility] drops BOTH EYES [facility] TWICE DAILY COMP-AIR 2020-11 Yes 10mg Take 10 mg [facility] NEBULIZER 2-08 by mouth. ity o f COMPRESSOR 00:00: [facility] loteprednol 2020-11 Yes SHAKE Unive rs 0.5 % 2-08 LIQUID AND ity of ophthalmic 00:00: INSTILL 1 [place] 00 DROP IN Med[facility] drops BOTH EYES [facility] TWICE DAILY COMP-AIR 2020-11 Yes 10mg Take 10 mg [facility] NEBULIZER 2-08 by mouth. ity o f COMPRESSOR 00:00: [facility] loteprednol 2020-11 Yes SHAKE Unive rs 0.5 % 2-08 LIQUID AND ity of ophthalmic 00:00: INSTILL 1 [place] 00 DROP IN [facility] drops BOTH EYES [facility] TWICE DAILY COMP-AIR 2020-11 Yes 10mg Take 10 mg [facility] NEBULIZER 2-08 by mouth. ity o f COMPRESSOR 00:00: [facility] loteprednol 2020-11 Yes SHAKE Unive rs 0.5 % 2-08 LIQUID AND ity of ophthalmic 00:00: INSTILL 1 [place] 00 DROP IN Med[facility] drops BOTH EYES [facility] TWICE DAILY COMP-AIR 2020-11 Yes 10mg Take 10 mg [facility] NEBULIZER 2-08 by mouth. ity o f COMPRESSOR 00:00: [facility] loteprednol 2020-11 Yes SHAKE Unive rs 0.5 % 2-08 LIQUID AND ity of ophthalmic 00:00: INSTILL 1 [place] 00 DROP IN [facility] drops BOTH EYES [facility] TWICE DAILY COMP-AIR 2020-11 Yes 10mg Take 10 mg [facility] NEBULIZER 2-08 by mouth. ity o f COMPRESSOR 00:00: [facility] loteprednol 2020-11 Yes SHAKE Unive rs 0.5 % 2-08 LIQUID AND ity of ophthalmic 00:00: INSTILL 1 [place] 00 DROP IN [facility] drops BOTH EYES [facility] TWICE DAILY COMP-AIR 2020-11 Yes 10mg Take 10 mg [facility] NEBULIZER 2-08 by mouth. ity o f COMPRESSOR 00:00: [facility] loteprednol 2020-11 Yes SHAKE Unive rs 0.5 % 2-08 LIQUID AND ity of ophthalmic 00:00: INSTILL 1 [place] 00 DROP IN [facility] drops BOTH EYES [facility] TWICE DAILY COMP-AIR 2020-11 Yes 10mg Take 10 mg [facility] NEBULIZER 2-08 by mouth. ity o f COMPRESSOR 00:00: [facility] loteprednol 2020-11 Yes SHAKE Unive rs 0.5 % 2-08 LIQUID AND ity of ophthalmic 00:00: INSTILL 1 [place] 00 DROP IN [facility] drops BOTH EYES [facility] TWICE DAILY COMP-AIR 2020-11 Yes 10mg Take 10 mg [facility] NEBULIZER 2-08 by mouth. ity o f COMPRESSOR 00:00: [facility] loteprednol 2020-11 Yes SHAKE Unive rs 0.5 % 2-08 LIQUID AND ity of ophthalmic 00:00: INSTILL 1 [place] 00 DROP IN [facility] drops BOTH EYES [facility] TWICE DAILY COMP-AIR 2020-11 Yes 10mg Take 10 mg [facility] NEBULIZER 2-08 by mouth. ity o f COMPRESSOR 00:00: [facility] loteprednol 2020-11 Yes SHAKE Unive rs 0.5 % 2-08 LIQUID AND ity of ophthalmic 00:00: INSTILL 1 [place] 00 DROP IN [facility] drops BOTH EYES [facility] TWICE DAILY COMP-AIR 2020-11 Yes 10mg Take 10 mg [facility] NEBULIZER 2-08 by mouth. ity o f COMPRESSOR 00:00: [facility] loteprednol 2020-11 Yes SHAKE Unive rs 0.5 % 2-08 LIQUID AND ity of ophthalmic 00:00: INSTILL 1 [place] 00 DROP IN [facility] drops BOTH EYES [facility] TWICE DAILY COMP-AIR 2020-11 Yes 10mg Take 10 mg [facility] NEBULIZER 2-08 by mouth. ity o f COMPRESSOR 00:00: [facility] loteprednol 2020-11 Yes SHAKE Un[facility] rs 0.5 % 2-08 LIQUID AND [facility] 00:00: INSTILL 1 [place] suspension 00 DROP IN [facility] drops BOTH EYES [facility] TWICE DAILY COMP-AIR 2020-11 Yes 10mg Take 10 mg [facility] NEBULIZER 2-08 by mouth. ity o f COMPRESSOR 00:00: [facility] loteprednol 2020-11 Yes SHAKE Unive rs 0.5 % 2-08 LIQUID AND [facility] 00:[place] suspension 00 DROP IN Medica l drops BOTH EYES Branch TWICE DAILY COMP-AIR 2020-11 Yes 10mg Take 10 mg [facility] NEBULIZER 2-08 by mouth. ity o f COMPRESSOR 00:00: Medical [facility] loteprednol 2020-11 Yes SHAKE Unive rs 0.5 % 2-08 LIQUID AND [facility]y of ophthalmic 00:00: INSTILL 1 [place] suspension 00 DROP IN Medica l drops BOTH EYES Branch TWICE DAILY COMP-AIR 2020-11 Yes 10mg Take 10 mg [facility] NEBULIZER 2-08 by mouth. ity o f COMPRESSOR 00:00: [facility] loteprednol 2020-11 Yes SHAKE Unive rs 0.5 % 2-08 LIQUID AND [facility] of ophthalmic 00:00: INSTILL 1 [place] suspension 00 DROP IN Medica l drops BOTH EYES Branch TWICE DAILY COMP-AIR 2020-11 Yes 10mg Take 10 mg [facility] NEBULIZER 2-08 by mouth. ity o f COMPRESSOR 00:00: [facility] loteprednol 2020-11 Yes SHAKE Unive rs 0.5 % 2-08 LIQUID AND [facility] of ophthalmic 00:00: INSTILL 1 [place] suspension 00 DROP IN Medica l drops BOTH EYES Branch TWICE DAILY COMP-AIR 2020-11 Yes 10mg Take 10 mg [facility] NEBULIZER 2-08 by mouth. ity o f COMPRESSOR 00:00: [facility] loteprednol 2020-11 Yes SHAKE Unive rs 0.5 % 2-08 LIQUID AND [facility]y of ophthalmic 00:00: INSTILL 1 [place] suspension 00 DROP IN Medica l drops BOTH EYES Branch TWICE DAILY COMP-AIR 2020-11 Yes 10mg Take 10 mg [facility] NEBULIZER 2-08 by mouth. ity o f COMPRESSOR 00:00: [facility] loteprednol 2020-11 Yes SHAKE Unive rs 0.5 % 2-08 LIQUID AND [facility]y of ophthalmic 00:00: INSTILL 1 [place] suspension 00 DROP IN Medica l drops BOTH EYES Branch TWICE DAILY COMP-AIR 2020-11 Yes 10mg Take 10 mg [facility] NEBULIZER 2-08 by mouth. ity o f COMPRESSOR 00:00: [facility] loteprednol 2020-11 Yes SHAKE Unive rs 0.5 % 2-08 LIQUID AND [facility]y of ophthalmic 00:00: INSTILL 1 [place] suspension 00 DROP IN Medica l drops BOTH EYES Branch TWICE DAILY COMP-AIR 2020-11 Yes 10mg Take 10 mg [facility] NEBULIZER 2-08 by mouth. ity o f COMPRESSOR 00:00: [facility] loteprednol 2020-11 Yes SHAKE Unive rs 0.5 % 2-08 LIQUID AND [facility]y of ophthalmic 00:00: INSTILL 1 [place] suspension 00 DROP IN Medica l drops BOTH EYES Branch TWICE DAILY COMP-AIR 2020-11 Yes 10mg Take 10 mg [facility] NEBULIZER 2-08 by mouth. ity o f COMPRESSOR 00:00: [facility] loteprednol 2020-11 Yes SHAKE Unive rs 0.5 % 2-08 LIQUID AND [facility]y of ophthalmic 00:00: INSTILL 1 [place] suspension 00 DROP IN Medica l drops BOTH EYES Branch TWICE DAILY COMP-AIR 2020-11 Yes 10mg Take 10 mg [facility] NEBULIZER 2-08 by mouth. ity o f COMPRESSOR 00:00: [facility] loteprednol 2020-11 Yes SHAKE Unive rs 0.5 % 2-08 LIQUID AND [facility]y of ophthalmic 00:00: INSTILL 1 [place] suspension 00 DROP IN Medica l drops BOTH EYES Branch TWICE DAILY COMP-AIR 2020-11 Yes 10mg Take 10 mg [facility] NEBULIZER 2-08 by mouth. ity o f COMPRESSOR 00:00: [facility] loteprednol 2020-11 Yes SHAKE Unive rs 0.5 % 2-08 LIQUID AND [facility]y of ophthalmic 00:00: INSTILL 1 [place] suspension 00 DROP IN Medica l drops BOTH EYES Branch TWICE DAILY COMP-AIR 2020-11 Yes 10mg Take 10 mg [facility] NEBULIZER 2-08 by mouth. ity o f COMPRESSOR 00:00: [facility] loteprednol 2020-11 Yes SHAKE Unive rs 0.5 % 2-08 LIQUID AND [facility]y of ophthalmic 00:00: INSTILL 1 [place] suspension 00 DROP IN Medica l drops BOTH EYES Branch TWICE DAILY COMP-AIR 2020-11 Yes 10mg Take 10 mg [facility] NEBULIZER 2-08 by mouth. ity o f COMPRESSOR 00:00: [facility] loteprednol 2020-11 Yes SHAKE Unive rs 0.5 % 2-08 LIQUID AND ity of ophthalmic 00:00: INSTILL 1 [place] suspension 00 DROP IN Medica l drops BOTH EYES Branch TWICE DAILY COMP-AIR 2020-11 Yes 10mg Take 10 mg [facility] NEBULIZER 2-08 by mouth. ity o f COMPRESSOR 00:00: [facility] loteprednol 2020-11 Yes SHAKE Unive rs 0.5 % 2-08 LIQUID AND ity of ophthalmic 00:00: INSTILL 1 [place] suspension 00 DROP IN Medica l drops BOTH EYES Branch TWICE DAILY COMP-AIR 2020-11 Yes 10mg Take 10 mg [facility] NEBULIZER 2-08 by mouth. ity o f COMPRESSOR 00:00: [facility] loteprednol 2020-11 Yes SHAKE Unive rs 0.5 % 2-08 LIQUID AND ity of ophthalmic 00:00: INSTILL 1 [place] suspension 00 DROP IN Medica l drops BOTH EYES Branch TWICE DAILY COMP-AIR 2020-11 Yes 10mg Take 10 mg [facility] NEBULIZER 2-08 by mouth. ity o f COMPRESSOR 00:00: [facility] loteprednol 2020-11 Yes SHAKE Unive rs 0.5 % 2-08 LIQUID AND ity of ophthalmic 00:00: INSTILL 1 [place] suspension 00 DROP IN Medica l drops BOTH EYES Branch TWICE DAILY COMP-AIR 2020-11 Yes 10mg Take 10 mg [facility] NEBULIZER 2-08 by mouth. ity o f COMPRESSOR 00:00: [facility] loteprednol 2020-11 Yes SHAKE Unive rs 0.5 % 2-08 LIQUID AND ity of ophthalmic 00:00: INSTILL 1 [place] suspension 00 DROP IN Medica l drops BOTH EYES Branch TWICE DAILY COMP-AIR 2020-11 Yes 10mg Take 10 mg [facility] NEBULIZER 2-08 by mouth. ity o f COMPRESSOR 00:00: [facility] loteprednol 2020-11 Yes SHAKE Unive rs 0.5 % 2-08 LIQUID AND ity of ophthalmic 00:00: INSTILL 1 [place] suspension 00 DROP IN Medica l drops BOTH EYES Branch TWICE DAILY COMP-AIR 2020-11 Yes 10mg Take 10 mg [facility] NEBULIZER 2-08 by mouth. ity o f COMPRESSOR 00:00: [facility] loteprednol 2020-11 Yes SHAKE Unive rs 0.5 % 2-08 LIQUID AND [facility]y of ophthalmic 00:00: INSTILL 1 [place] suspension 00 DROP IN Medica l drops BOTH EYES Branch TWICE DAILY COMP-AIR 2020-11 Yes 10mg Take 10 mg [facility] NEBULIZER 2-08 by mouth. ity o f COMPRESSOR 00:00: [facility] loteprednol 2020-11 Yes SHAKE Unive rs 0.5 % 2-08 LIQUID AND ity of ophthalmic 00:00: INSTILL 1 [place] suspension 00 DROP IN Medica l drops BOTH EYES Branch TWICE DAILY COMP-AIR 2020-11 Yes 10mg Take 10 mg [facility] NEBULIZER 2-08 by mouth. ity o f COMPRESSOR 00:00: [facility] loteprednol 2020-11 Yes SHAKE Unive rs 0.5 % 2-08 LIQUID AND ity of ophthalmic 00:00: INSTILL 1 [place] suspension 00 DROP IN Medica l drops BOTH EYES Branch TWICE DAILY COMP-AIR 2020-11 Yes 10mg Take 10 mg [facility] NEBULIZER 2-08 by mouth. ity o f COMPRESSOR 00:00: [facility] loteprednol 2020-11 Yes SHAKE Unive rs 0.5 % 2-08 LIQUID AND ity of ophthalmic 00:00: INSTILL 1 [place] suspension 00 DROP IN Medica l drops BOTH EYES Branch TWICE DAILY COMP-AIR 2020-11 Yes 10mg Take 10 mg [facility] NEBULIZER 2-08 by mouth. ity o f COMPRESSOR 00:00: [facility] loteprednol 2020-11 Yes SHAKE Unive rs 0.5 % 2-08 LIQUID AND ity of ophthalmic 00:00: INSTILL 1 [place] suspension 00 DROP IN Medica l drops BOTH EYES Branch TWICE DAILY COMP-AIR 2020-11 Yes 10mg Take 10 mg [facility] NEBULIZER 2-08 by mouth. ity o f COMPRESSOR 00:00: [facility] loteprednol 2020-11 Yes SHAKE Unive rs 0.5 % 2-08 LIQUID AND ity of ophthalmic 00:00: INSTILL 1 [place] suspension 00 DROP IN Medica l drops BOTH EYES Branch TWICE DAILY COMP-AIR 2020-11 Yes 10mg Take 10 mg [facility] NEBULIZER 2-08 by mouth. ity o f COMPRESSOR 00:00: [facility] loteprednol 2020-11 Yes SHAKE Unive rs 0.5 % 2-08 LIQUID AND ity of ophthalmic 00:00: INSTILL 1 [place] suspension 00 DROP IN Medica l drops BOTH EYES Branch TWICE DAILY COMP-AIR 2020-11 Yes 10mg Take 10 mg [facility] NEBULIZER 2-08 by mouth. ity o f COMPRESSOR 00:00: [facility] loteprednol 2020-11 Yes SHAKE Unive rs 0.5 % 2-08 LIQUID AND ity of ophthalmic 00:00: INSTILL 1 [place] suspension 00 DROP IN Medica l drops BOTH EYES Branch TWICE DAILY COMP-AIR 2020-11 Yes 10mg Take 10 mg [facility] NEBULIZER 2-08 by mouth. ity o f COMPRESSOR 00:00: [facility] loteprednol 2020-11 Yes SHAKE Unive rs 0.5 % 2-08 LIQUID AND ity of ophthalmic 00:00: INSTILL 1 [place] suspension 00 DROP IN Medica l drops BOTH EYES Branch TWICE DAILY COMP-AIR 2020-11 Yes 10mg Take 10 mg [facility] NEBULIZER 2-08 by mouth. ity o f COMPRESSOR 00:00: [facility] loteprednol 2020-11 Yes SHAKE Unive rs 0.5 % 2-08 LIQUID AND ity of ophthalmic 00:00: INSTILL 1 [place] suspension 00 DROP IN Medica l drops BOTH EYES Branch TWICE DAILY OPTICHAMBER 2020-11- No 10mg Take 10 mg [facility] EVON LG 12-31 by mouth. ity of MASK Spcr 00:00: 00:00 [place] 00 :00 [facility] OPTICHAMBER 2020-11- No 10mg Take 10 mg [facility] EVON LG 12-31 by mouth. ity of MASK Spcr 00:00: 00:00 [place] 00 :00 Medical Branch albuterol 2020-11- No USE 3 ML [facility] vers 2.5 mg /3 12-3124 VIA ity of mL (0.083 00:00: 00:00 NEBULIZER [place] %) 00 :00 TWICE Medical nebulizer DAILY Branch solution NEEDED albuterol 2020-11- No USE 3 ML [facility] 2.5 mg /3 12-31 VIA ity of mL (0.083 00:00: 00:00 NEBULIZER [place] 00 :00 TWICE Medical nebulizer DAILY Branch solution NEEDED albuterol 2020-11- No USE 3 ML [facility] 2.5 mg /3 12-31 VIA ity of mL (0.083 00:00: 00:00 NEBULIZER [place] %) 00 :00 TWICE Medical nebulizer DAILY Branch solution NEEDED isosorbide 2020-11 Yes 60mg Take 2 Unive rs mononitrate 0-27 tablets by it y of 30 mg 24 hr 00:00: mouth [place] tablet 00 daily. Medical Branch isosorbide 2020-11 Yes 60mg Take 2 Unive rs mononitrate 0-27 tablets by it y of 30 mg 24 hr 00:00: mouth [place] tablet 00 daily. Medical Branch isosorbide 2020-11 Yes 60mg Take 2 Unive rs mononitrate 0-27 tablets by it y of 30 mg 24 hr 00:00: mouth [place] tablet 00 daily. Medical [facility] isosorbide 2020-11 Yes 60mg Take 2 Unive rs mononitrate 0-27 tablets by it y of 30 mg 24 hr 00:00: mouth [place] tablet 00 daily. Medical Branch isosorbide 2020-11 Yes 60mg Take 2 Unive rs mononitrate 0-27 tablets by it y of 30 mg 24 hr 00:00: mouth [place] tablet 00 daily. [facility] isosorbide 2020-11 Yes 60mg Take 2 Unive rs mononitrate 0-27 tablets by it y of 30 mg 24 hr 00:00: mouth [place] tablet 00 daily. Medical [facility] isosorbide 2020-11 Yes 60mg Take 2 Unive rs mononitrate 0-27 tablets by it y of 30 mg 24 hr 00:00: mouth [place] tablet 00 daily. [facility] isosorbide 2020-11 Yes 60mg Take 2 Unive rs mononitrate 0-27 tablets by it y of 30 mg 24 hr 00:00: mouth [place] tablet 00 daily. Medical [facility] isosorbide 2020-11 Yes 60mg Take 2 Unive rs mononitrate 0-27 tablets by it y of 30 mg 24 hr 00:00: mouth [place] tablet 00 daily. [facility] isosorbide 2020-11 Yes 60mg Take 2 Unive rs mononitrate 0-27 tablets by it y of 30 mg 24 hr 00:00: mouth [place] tablet 00 daily. Medical [facility] isosorbide 2020-11 Yes 60mg Take 2 Unive rs mononitrate 0-27 tablets by it y of 30 mg 24 hr 00:00: mouth [place] tablet 00 daily. [facility] isosorbide 2020-11 Yes 60mg Take 2 Unive rs mononitrate 0-27 tablets by it y of 30 mg 24 hr 00:00: mouth [place] tablet 00 daily. [facility] isosorbide 2020-11 Yes 60mg Take 2 Unive rs mononitrate 0-27 tablets by it y of 30 mg 24 hr 00:00: mouth [place] tablet 00 daily. [facility] isosorbide 2020-11 Yes 60mg Take 2 Unive rs mononitrate 0-27 tablets by it y of 30 mg 24 hr 00:00: mouth [place] tablet 00 daily. Medical [facility] isosorbide 2020-11 Yes 60mg Take 2 Unive rs mononitrate 0-27 tablets by it y of 30 mg 24 hr 00:00: mouth [place] tablet 00 daily. [facility] isosorbide 2020-11 Yes 60mg Take 2 Unive rs mononitrate 0-27 tablets by it y of 30 mg 24 hr 00:00: mouth [place] tablet 00 daily. Medical [facility] isosorbide 2020- Yes 60mg Take 2 Unive rs mononitrate 0-27 tablets by it y of 30 mg 24 hr 00:00: mouth [place] tablet 00 daily. [facility] isosorbide 2020-11 Yes 60mg Take 2 Unive rs mononitrate 0-27 tablets by it y of 30 mg 24 hr 00:00: mouth [place] tablet 00 daily. [facility] isosorbide 2020-11 Yes 60mg Take 2 Unive rs mononitrate 0-27 tablets by it y of 30 mg 24 hr 00:00: mouth [place] tablet 00 daily. [facility] isosorbide 2020-11 Yes 60mg Take 2 Unive rs mononitrate 0-27 tablets by it y of 30 mg 24 hr 00:00: mouth [place] tablet 00 daily. [facility] isosorbide 2020-11 Yes 60mg Take 2 Unive rs mononitrate 0-27 tablets by it y of 30 mg 24 hr 00:00: mouth [place] tablet 00 daily. [facility] isosorbide 2020-11 Yes 60mg Take 2 Unive rs mononitrate 0-27 tablets by it y of 30 mg 24 hr 00:00: mouth [place] tablet 00 daily. [facility] isosorbide 2020-11 Yes 60mg Take 2 Unive rs mononitrate 0-27 tablets by it y of 30 mg 24 hr 00:00: mouth [place] tablet 00 daily. [facility] isosorbide 2020-11 Yes 60mg Take 2 Unive rs mononitrate 0-27 tablets by it y of 30 mg 24 hr 00:00: mouth [place] tablet 00 daily. [facility] isosorbide 2020-11 Yes 60mg Take 2 Unive rs mononitrate 0-27 tablets by it y of 30 mg 24 hr 00:00: mouth [place] tablet 00 daily. [facility] isosorbide 2020-11 Yes 60mg Take 2 Unive rs mononitrate 0-27 tablets by it y of 30 mg 24 hr 00:00: mouth [place] tablet 00 daily. [facility] isosorbide 2020-11 Yes 60mg Take 2 Unive rs mononitrate 0-27 tablets by it y of 30 mg 24 hr 00:00: mouth [place] tablet 00 daily. [facility] isosorbide 2020-11 Yes 60mg Take 2 Unive rs mononitrate 0-27 tablets by it y of 30 mg 24 hr 00:00: mouth [place] tablet 00 daily. [facility] isosorbide 2020-11 Yes 60mg Take 2 Unive rs mononitrate 0-27 tablets by it y of 30 mg 24 hr 00:00: mouth [place] tablet 00 daily. [facility] isosorbide 2020-11 Yes 60mg Take 2 Unive rs mononitrate 0-27 tablets by it y of 30 mg 24 hr 00:00: mouth [place] tablet 00 daily. [facility] isosorbide 2020-11 Yes 60mg Take 2 Unive rs mononitrate 0-27 tablets by it y of 30 mg 24 hr 00:00: mouth [place] tablet 00 daily. [facility] isosorbide 2020-11 Yes 60mg Take 2 Unive rs mononitrate 0-27 tablets by it y of 30 mg 24 hr 00:00: mouth [place] tablet 00 daily. [facility] isosorbide 2020-11 Yes 60mg Take 2 Unive rs mononitrate 0-27 tablets by it y of 30 mg 24 hr 00:00: mouth [place] tablet 00 daily. [facility] isosorbide 2020-11 Yes 60mg Take 2 Unive rs mononitrate 0-27 tablets by it y of 30 mg 24 hr 00:00: mouth [place] tablet 00 daily. [facility] isosorbide 2020-11 Yes 60mg Take 2 Unive rs mononitrate 0-27 tablets by it y of 30 mg 24 hr 00:00: mouth [place] tablet 00 daily. [facility] isosorbide 2020-11 Yes 60mg Take 2 Unive rs mononitrate 0-27 tablets by it y of 30 mg 24 hr 00:00: mouth [place] tablet 00 daily. [facility] isosorbide 2020-11 Yes 60mg Take 2 Unive rs mononitrate 0-27 tablets by it y of 30 mg 24 hr 00:00: mouth [place] tablet 00 daily. [facility] isosorbide 2020-11 Yes 60mg Take 2 Unive rs mononitrate 0-27 tablets by it y of 30 mg 24 hr 00:00: mouth [place] tablet 00 daily. [facility] isosorbide 2020-11 Yes 60mg Take 2 Unive rs mononitrate 0-27 tablets by it y of 30 mg 24 hr 00:00: mouth [place] tablet 00 daily. [facility] isosorbide 2020-11 Yes 60mg Take 2 Unive rs mononitrate 0-27 tablets by it y of 30 mg 24 hr 00:00: mouth [place] tablet 00 daily. [facility] isosorbide 2020-11 Yes 60mg Take 2 Unive rs mononitrate 0-27 tablets by it y of 30 mg 24 hr 00:00: mouth [place] tablet 00 daily. [facility] isosorbide 2020-11 Yes 60mg Take 2 Unive rs mononitrate 0-27 tablets by it y of 30 mg 24 hr 00:00: mouth [place] tablet 00 daily. [facility] isosorbide 2020-11 Yes 60mg Take 2 Unive rs mononitrate 0-27 tablets by it y of 30 mg 24 hr 00:00: mouth [place] tablet 00 daily. [facility] isosorbide 2020-11 Yes 60mg Take 2 Unive rs mononitrate 0-27 tablets by it y of 30 mg 24 hr 00:00: mouth [place] tablet 00 daily. [facility] isosorbide 2020-11 Yes 60mg Take 2 Unive rs mononitrate 0-27 tablets by it y of 30 mg 24 hr 00:00: mouth [place] tablet 00 daily. [facility] isosorbide 2020-11 Yes 60mg Take 2 Unive rs mononitrate 0-27 tablets by it y of 30 mg 24 hr 00:00: mouth [place] tablet 00 daily. [facility] isosorbide 2020-11 Yes 60mg Take 2 Unive rs mononitrate 0-27 tablets by it y of 30 mg 24 hr 00:00: mouth [place] tablet 00 daily. [facility] isosorbide 2020-11 Yes 60mg Take 2 Unive rs mononitrate 0-27 tablets by it y of 30 mg 24 hr 00:00: mouth [place] tablet 00 daily. [facility] isosorbide 2020- Yes 60mg Take 2 Unive rs mononitrate 0-27 tablets by it y of 30 mg 24 hr 00:00: mouth [place] tablet 00 daily. [facility] isosorbide 2020-11 Yes 60mg Take 2 Unive rs mononitrate 0-27 tablets by it y of 30 mg 24 hr 00:00: mouth [place] tablet 00 daily. [facility] isosorbide 2020-11 Yes 60mg Take 2 Unive rs mononitrate 0-27 tablets by it y of 30 mg 24 hr 00:00: mouth [place] tablet 00 daily. [facility] isosorbide 2020- Yes 60mg Take 2 Unive rs mononitrate 0-27 tablets by it y of 30 mg 24 hr 00:00: mouth [place] tablet 00 daily. [facility] isosorbide 2020-11 Yes 60mg Take 2 Unive rs mononitrate 0-27 tablets by it y of 30 mg 24 hr 00:00: mouth [place] tablet 00 daily. [facility] isosorbide 2020-11 Yes 60mg Take 2 Unive rs mononitrate 0-27 tablets by it y of 30 mg 24 hr 00:00: mouth [place] tablet 00 daily. [facility] isosorbide 2020-11 Yes 60mg Take 2 Unive rs mononitrate 0-27 tablets by it y of 30 mg 24 hr 00:00: mouth [place] tablet 00 daily. [facility] isosorbide 2020-11 Yes 60mg Take 2 Unive rs mononitrate 0-27 tablets by it y of 30 mg 24 hr 00:00: mouth [place] tablet 00 daily. [facility] isosorbide 2020-11 Yes 60mg Take 2 Unive rs mononitrate 0-27 tablets by it y of 30 mg 24 hr 00:00: mouth [place] tablet 00 daily. [facility] isosorbide 2020-11 Yes 60mg Take 2 Unive rs mononitrate 0-27 tablets by it y of 30 mg 24 hr 00:00: mouth [place] tablet 00 daily. [facility] isosorbide 2020-11 Yes 60mg Take 2 Unive rs mononitrate 0-27 tablets by it y of 30 mg 24 hr 00:00: mouth [place] tablet 00 daily. [facility] isosorbide 2020-11 Yes 60mg Take 2 Unive rs mononitrate 0-27 tablets by it y of 30 mg 24 hr 00:00: mouth [place] tablet 00 daily. [facility] isosorbide 2020-11 Yes 60mg Take 2 Unive rs mononitrate 0-27 tablets by it y of 30 mg 24 hr 00:00: mouth [place] tablet 00 daily. [facility] isosorbide 2020-11 Yes 60mg Take 2 Unive rs mononitrate 0-27 tablets by it y of 30 mg 24 hr 00:00: mouth [place] tablet 00 daily. [facility] isosorbide 2020-11 Yes 60mg Take 2 Unive rs mononitrate 0-27 tablets by it y of 30 mg 24 hr 00:00: mouth [place] tablet 00 daily. [facility] isosorbide 2020-11 Yes 60mg Take 2 Unive rs mononitrate 0-27 tablets by it y of 30 mg 24 hr 00:00: mouth [place] tablet 00 daily. [facility] isosorbide 2020-11 Yes 60mg Take 2 Unive rs mononitrate 0-27 tablets by it y of 30 mg 24 hr 00:00: mouth [place] tablet 00 daily. [facility] isosorbide 2020-11 Yes 60mg Take 2 Unive rs mononitrate 0-27 tablets by it y of 30 mg 24 hr 00:00: mouth [place] tablet 00 daily. [facility] isosorbide 2020-11 Yes 60mg Take 2 Unive rs mononitrate 0-27 tablets by it y of 30 mg 24 hr 00:00: mouth [place] tablet 00 daily. [facility] isosorbide 2020-11 Yes 60mg Take 2 Unive rs mononitrate 0-27 tablets by it y of 30 mg 24 hr 00:00: mouth [place] tablet 00 daily. [facility] isosorbide 2020-11 Yes 60mg Take 2 Unive rs mononitrate 0-27 tablets by it y of 30 mg 24 hr 00:00: mouth [place] tablet 00 daily. [facility] isosorbide 2020-11 Yes 60mg Take 2 Unive rs mononitrate 0-27 tablets by it y of 30 mg 24 hr 00:00: mouth [place] tablet 00 daily. [facility] isosorbide 2020-11 Yes 60mg Take 2 Unive rs mononitrate 0-27 tablets by it y of 30 mg 24 hr 00:00: mouth [place] tablet 00 daily. [facility] isosorbide 2020-11- No 60mg Take 2 Univ ers mononitrate 0-27 11-07 tablets by i ty of 30 mg 24 hr 00:00: 00:00 [place] tablet 00 :00 daily. [facility] isosorbide 2020-11- No 60mg Take 2 Univ ers mononitrate 0-27 11-07 tablets by i ty of 30 mg 24 hr 00:00: 00:00 [place] tablet 00 :00 daily. [facility] isosorbide 2020-11- No 60mg Take 2 Univ ers mononitrate 0-27 11-07 tablets by i ty of 30 mg 24 hr 00:00: 00:00 [place] tablet 00 :00 daily. [facility] morpHINE 0 Yes 2mg 2 mg, Slow Uni vers injection 2 03-29 IV Push, ity of mg 14:17: Q5MIN PRN, [place] 42 5 doses, Medical Starting Branch Thu03/29/21 at 0917, Until Discontinu ed, Routine, Pain (scale 7-10), PACU ondansetron 0 Yes 4mg 4 mg, Slow Univers (ZOFRAN 03-29 IV Push, ity of (PF)) 14:17: PRN, 1 [place] injection 4 42 dose, Medical mg Starting Branch Thu03/29/21 at 0917, Until Discontinu ed, Routine, Nausea and Vomiting (N/V), PACU FENTanyl PF 2020- Yes 25ug 25 mcg, Uni vers (SUBLIMAZE 03-29 Slow IV ity of (PF)) 14:17: Push, [place] injection 41 Q5MIN PRN, Medi johnathon 25 mcg 4 doses, Branch Starting Thu03/29/21 at 0917, Until Discontinu ed, Routine, Pain (scale 4-6), PACU sugammadex 2020- No IV Push, Un lesly (BRIDION) 03-29 ONCE INTRA ity of injection 14:01: 14:26 PROCEDURE, [place] 00 :11 Starting Medical Thu03/29/21 Branch at 0901, Until Thu03/29/21 at 09, Routine, Intra-op ondansetron 2020-2020- No Slow IV Un lesly (ZOFRAN 03-29 Push, ONCE ity o f (PF)) 14:01: 14:26 INTRA [place] injection 00 :11 PROCEDURE, Medi johnathon Starting Branch Thu03/29/21 at 0901, Until Thu03/29/21 at 09, Routine, Intra-op sodium 2020-0 Yes PRN, Univers chloride 03-29 Starting ity of 0.9 % 13:42: Thu03/29/21 [place] irrigation 00 at 0842, Medic al solution Until Branch Discontinu ed, Intra-op acetaminoph 2020-0 202- No IV Unive rs en ADULT 03-29 Infusion, ity o f (OFIRMEV) 13:42: 14:26 Administer [place] injection 00 :11 over 15 Medical Minutes, Branch ONCE INTRA PROCEDURE, Starting Thu03/29/21 at 0842, Until Thu03/29/21 at 09, Routine, Intra-op bupivacaine Yes PRN, Univer s (preserv 03-29 Starting ity of free) 13:41: Thu03/29/21 [place] (SENSORCAIN 00 at 0841, Medi johnathon E MPF) 0.25 Until Branch % (2.5 Discontinu mg/mL) ed, injection Routine, Intra-op PHENYLephri 2020- No Slow IV Un lesly ne 1000 03-29 Push, ONCE ity o f mcg/10 mL 13:34: 14:26 INTRA [place] in 0.9% 00 : PROCEDURE, Medica l NaCl Starting Branch syringe Thu03/29/21 at 0834, Until Thu03/29/21 at 925, Routine, Intra-op ceFAZolin 2020- No IV [facility] (ANCEF) 03-29 Piggyback, ity o f injection 13:32: 14:26 ONCE INTRA [place] 00 :11 PROCEDURE, Medical Starting Branch Thu03/29/21 at 0832, Until Thu03/29/21 at 09, DELFIN, Intra-op succinylcho 2020- No IV Push, U nivers line 03-29 ONCE INTRA ity of (QUELICIN) 13:24: 14:26 PROCEDURE, [place] injection 00 :11 Starting Medica l Thu03/29/21 Branch at 0824, Until Thu03/29/21 at 09, Routine, Intra-op rocuronium 2020- No IV Push, Un lesly (ZEMURON) 03-29 ONCE INTRA ity of injection 13:24: 14:26 PROCEDURE, [place] 00 :11 Starting Medical Thu03/29/21 Branch at 0824, Until Thu03/29/21 at 09, Routine, Intra-op propofoL IV 2020- No IV Unive rs infusion 03-29 Infusion, ity o f 13:23: 14:26 ONCE INTRA [place] 00 :11 PROCEDURE, Medical Starting Branch Thu03/29/21 at 0823, Until Thu03/29/21 at 09, Routine, Intra-op lidocaine 2020- No Slow IV Univ ers 1% 03-29 Push, ONCE ity of (XYLOCAINE) 13:22: 14:26 INTRA [place] 100 mg/10 00 :11 PROCEDURE, Medi johnathon mL (1 %) Starting Branch injection Thu03/29/21 at 0822, Until Thu03/29/21 at 925, Routine, Intra-op FENTanyl PF 2020- No Epidural, Univers (SUBLIMAZE 03-29 ONCE INTRA it y of (PF)) 13:22: 14:26 PROCEDURE, [place] injection 00 :11 Starting Medica l Thu03/29/21 Branch at 0822, Until Thu03/29/21 at 925, Routine, Intra-op lactated 2020- No IV [facility] ringers IV 03-29 Infusion, ity of infusion 13:09: 14:26 CONTINUOUS [place] 00 :11 PRN, Medical Starting Branch Thu03/29/21 at 0809, Until Thu03/29/21 at 925, Routine, Intra-op acetaminoph 2021- No [place] of 650mg Take 2 [facility] en 03-29-08 neck tablets by ity of (TYLENOL) 00:00: 04:59 mouth [place] 325 mg 00 :00 every 6 Medical tablet (six) Branch hours as needed for Pain (scale 1-3). HYDROcodone 2020- No acute pain 1{tbl} Take 1 [facility] -acetaminop 03-29 05-15 tablet by it y of hen (NORCO) 00:00: 04:59 [place] 5-325 mg 00 :00 every 6 Medical tablet (six) Branch hours as needed for Pain (scale 7-10) for up to 7 days. Indication s: acute pain cetirizine Yes Chronic 10mg Take 1 Un lesly 10 mg 4-17 allergic tablet by ity o f tablet 00:00: rhinitis mouth [place] 00 daily. Medical Branch cetirizine Yes Chronic 10mg Take 1 Un lesly 10 mg 4-17 allergic tablet by ity o f tablet 00:00: rhinitis mouth [place] 00 daily. Medical Branch cetirizine Yes Chronic 10mg Take 1 Un lesly 10 mg 4-17 allergic tablet by ity o f tablet 00:00: rhinitis mouth [place] 00 daily. Medical Branch cetirizine Yes Chronic 10mg Take 1 Un lesly 10 mg 4-17 allergic tablet by ity o f tablet 00:00: rhinitis mouth [place] 00 daily. Medical Branch KCL 20 mEq Yes Chronic 20meq Take 1 U nivers tablet 3-30 heart tablet by ity of 00:00: failure mouth [place] 00 with daily. Medical preserved Branch ejection fraction KCL 20 mEq Yes Chronic 20meq Take 1 U nivers tablet 3-30 heart tablet by ity of 00:00: failure mouth [place] 00 with daily. Medical preserved Branch ejection fraction KCL 20 mEq Yes Chronic 20meq Take 1 U nivers tablet 3-30 heart tablet by ity of 00:00: failure mouth [place] 00 with daily. Medical preserved Branch ejection fraction KCL 20 mEq Yes Chronic 20meq Take 1 U nivers tablet 3-30 heart tablet by ity of 00:00: failure mouth [place] 00 with daily. Medical preserved Branch ejection fraction apixaban Yes atrial TAKE 1 Unive rs (ELIQUIS) 5 3-22 fibrillatio TABLET BY ity of mg tablet 00:00: n MOUTH [place] 00 TWICE Medical DAILY FOR Branch ATRIAL FIBRILLATI ON. Indication s: atrial fibrillati on apixaban Yes atrial TAKE 1 Unive rs (ELIQUIS) 5 3-22 fibrillatio TABLET BY ity of mg tablet 00:00: n MOUTH [place] 00 TWICE Medical DAILY FOR Branch ATRIAL FIBRILLATI ON. Indication s: atrial fibrillati on apixaban Yes atrial TAKE 1 Unive rs (ELIQUIS) 5 3-22 fibrillatio TABLET BY ity of mg tablet 00:00: n MOUTH [place] 00 TWICE Medical DAILY FOR Branch ATRIAL FIBRILLATI ON. Indication s: atrial fibrillati on apixaban Yes atrial TAKE 1 Unive rs (ELIQUIS) 5 3-22 fibrillatio TABLET BY ity of mg tablet 00:00: n MOUTH [place] 00 TWICE Medical DAILY FOR Branch ATRIAL FIBRILLATI ON. Indication s: atrial fibrillati on metoprolol Yes PAF 50mg Take 1 Unive rs succinate 2-04 (paroxysmal tablet by ity of XL 50 mg 24 00:00: atrial mouth [place] hr tablet 00 fibrillatio daily. [facility]) Branch metoprolol Yes PAF 50mg Take 1 Unive rs succinate 2-04 (paroxysmal tablet by ity of XL 50 mg 24 00:00: atrial mouth [place] as hr tablet 00 fibrillatio daily. [facility]) Branch metoprolol Yes PAF 50mg Take 1 Unive rs succinate 2-04 (paroxysmal tablet by ity of XL 50 mg 24 00:00: atrial mouth [place] as hr tablet 00 fibrillatio daily. [facility]) Branch metoprolol Yes PAF 50mg Take 1 Unive rs succinate 2-04 (paroxysmal tablet by ity of XL 50 mg 24 00:00: atrial mouth [place] as hr tablet 00 fibrillatio daily. [facility]) Branch furosemide Yes Chronic 80 mg AM Univers (LASIX) 40 2-01 heart and 40 mg ity of mg tablet 00:00: failure [facility] with Medical preserved Branch ejection fraction furosemide Yes Chronic 80 mg AM Univers (LASIX) 40 2-01 heart and 40 mg ity of mg tablet 00:00: failure [facility] with Medical preserved Branch ejection fraction furosemide Yes Chronic 80 mg AM Univers (LASIX) 40 2-01 heart and 40 mg ity of mg tablet 00:00: failure [facility] with Medical preserved Branch ejection fraction furosemide 0 Yes Chronic 80 mg AM Univers (LASIX) 40 2-01 heart and 40 mg ity of mg tablet 00:00: failure [facility] with Medical preserved Branch ejection fraction empaglifloz Yes Type 2 10mg Take 10 mg Univers in 1-21 diabetes by mouth ity of (JARDIANCE) 00:00: with every [place] 10 mg Tab 00 complicatio morning. Medical n Branch empaglifloz 2020-0 Yes Type 2 10mg Take 10 mg Univers in 1-21 diabetes by mouth ity of (JARDIANCE) 00:00: with every [place] 10 mg Tab 00 complicatio morning. Medical n Branch empaglifloz 2020-0 Yes Type 2 10mg Take 10 mg Univers in 1-21 diabetes by mouth ity of (JARDIANCE) 00:00: with every [place] 10 mg Tab 00 complicatio morning. Medical n Branch empaglifloz Yes Type 2 10mg Take 10 mg Univers in 1-21 diabetes by mouth ity of (JARDIANCE) 00:00: with every [place] 10 mg Tab 00 complicatio morning. Medical n Branch atorvastati 2019-11 Yes TAKE 1 Univ ers n 40 mg 2-21 TABLET BY ity of tablet 00:00: MOUTH AT [place] 00 BEDTIME Medical Branch atorvastati 2019- Yes TAKE 1 Univ ers n 40 mg 2-21 TABLET BY ity of tablet 00:00: MOUTH AT [place] BEDTIME Medical Branch atorvastati 2019-11 Yes TAKE 1 Univ ers n 40 mg 2-21 TABLET BY ity of tablet 00:00: MOUTH AT [place] BEDTIME Medical Branch atorvastati 2019-11 Yes TAKE 1 Univ ers n 40 mg 2-21 TABLET BY ity of tablet 00:00: MOUTH AT [place] 00 BEDTIME Medical Branch simethicone 2019- Yes Mesenteric 80mg Take 1 [facility] 80 mg 2-10 panniculiti tablet by it y of chewable 00:00: s mouth [place] tablet 00 after Medical meals and Branch at bedtime. simethicone 2019-11 Yes Mesenteric 80mg Take 1 [facility] 80 mg 2-10 panniculiti tablet by it y of chewable 00:00: s mouth [place] tablet 00 after Medical meals and Branch at bedtime. simethicone 2019-11 Yes Mesenteric 80mg Take 1 [facility] 80 mg 2-10 panniculiti tablet by it y of chewable 00:00: s mouth [place] tablet 00 after Medical meals and Branch at bedtime. simethicone 2019-11 Yes Mesenteric 80mg Take 1 [facility] 80 mg 2-10 panniculiti tablet by it y of chewable 00:00: s mouth [place] tablet 00 after Medical meals and Branch at bedtime. levothyroxi 2019-11 Yes Primary 150ug Take 1 [facility] ne 150 mcg 2-01 hypothyroid tablet by ity of tablet 00:00: ism mouth [place] 00 every Medical morning. Branch levothyroxi 2019-11 Yes Primary 150ug Take 1 [facility] ne 150 mcg 2-01 hypothyroid tablet by ity of tablet 00:00: ism mouth [place] 00 every Medical morning. Branch levothyroxi 2019-11 Yes Primary 150ug Take 1 [facility] ne 150 mcg 2-01 hypothyroid tablet by ity of tablet 00:00: ism mouth [place] 00 every Medical morning. Branch levothyroxi 2019-11 Yes Primary 150ug Take 1 [facility] ne 150 mcg 2-01 hypothyroid tablet by ity of tablet 00:00: ism mouth [place] 00 every Medical morning. Branch aspirin 81 2019-11 TIA 81mg Take 1 Univ ers mg chewable 003-20 (transient tablet by ity of tablet 00:00: 00:00 ischemic mouth [place] 00 :00 attack) daily. Medical Branch Aspirin 0 No 325 mg, [facility] 630 Route: PO, l 01:31: Drug form: Rad 00 TAB, ONCE, Dosing Weight 88.636, kg, Priority: STAT, Start date: 05/21/15 20:31:00, Stop date: 05/21/15 20:31:00 Aspirin 2014-0 No 325 mg, [facility] 630 Route: PO, l 01:31: Drug form: Ceiba 00 TAB, ONCE, Dosing Weight 88.636, kg, Priority: STAT, Start date: 05/21/15 20:31:00, Stop date: 05/21/15 20:31:00 Immunizations Ordered Filled Immunization Date Status Comments [facility] Immunization Name Name Pneumococcal 2021-08-20 Completed University o f Polysaccharide, 00:00:00 [place] Med ical PPSV23 (PNEUMOVAX) Branch Pneumococcal 2021-08-20 Completed University o f Polysaccharide, 00:00:00 [place] Med ical PPSV23 (PNEUMOVAX) Branch Pneumococcal 2021-08-20 Completed University o f Polysaccharide, 00:00:00 [place] Med ical PPSV23 (PNEUMOVAX) Branch Pneumococcal 2021-08-20 Completed University o f Polysaccharide, 00:00:00 [place] Med ical PPSV23 (PNEUMOVAX) Branch Pneumococcal 2021-08-20 Completed University o f Polysaccharide, 00:00:00 [place] Med ical PPSV23 (PNEUMOVAX) Branch Pneumococcal 2021-08-20 Completed University o f Polysaccharide, 00:00:00 [place] Med ical PPSV23 (PNEUMOVAX) Branch Pneumococcal 2021-08-20 Completed University o f Polysaccharide, 00:00:00 [place] Med ical PPSV23 (PNEUMOVAX) Branch Pneumococcal 2021-08-20 Completed University o f Polysaccharide, 00:00:00 [place] Med ical PPSV23 (PNEUMOVAX) Branch Pneumococcal 2021-08-20 Completed University o f Polysaccharide, 00:00:00 [place] Med ical PPSV23 (PNEUMOVAX) Branch Pneumococcal 2021-08-20 Completed University o f Polysaccharide, 00:00:00 [place] Med ical PPSV23 (PNEUMOVAX) Branch Pneumococcal 2021-08-20 Completed University o f Polysaccharide, 00:00:00 [place] Med ical PPSV23 (PNEUMOVAX) Branch Pneumococcal 2021-08-20 Completed University o f Polysaccharide, 00:00:00 [place] Med ical PPSV23 (PNEUMOVAX) Branch Pneumococcal 2021-08-20 Completed University o f Polysaccharide, 00:00:00 [place] Med ical PPSV23 (PNEUMOVAX) Branch Pneumococcal 2021-08-20 Completed University o f Polysaccharide, 00:00:00 [place] Med ical PPSV23 (PNEUMOVAX) Branch Pneumococcal 2021-08-20 Completed University o f Polysaccharide, 00:00:00 [place] Med ical PPSV23 (PNEUMOVAX) Branch Pneumococcal 2021-08-20 Completed University o f Polysaccharide, 00:00:00 [place] Med ical PPSV23 (PNEUMOVAX) Branch Pneumococcal 2021-08-20 Completed University o f Polysaccharide, 00:00:00 [place] Med ical PPSV23 (PNEUMOVAX) Branch Pneumococcal 2021-08-20 Completed University o f Polysaccharide, 00:00:00 [place] Med ical PPSV23 (PNEUMOVAX) Branch Pneumococcal 2021-08-20 Completed University o f Polysaccharide, 00:00:00 [place] Med ical PPSV23 (PNEUMOVAX) Branch Pneumococcal 2021-08-20 Completed University o f Polysaccharide, 00:00:00 [place] Med ical PPSV23 (PNEUMOVAX) Branch Pneumococcal 2021-08-20 Completed University o f Polysaccharide, 00:00:00 [place] Med ical PPSV23 (PNEUMOVAX) Branch Pneumococcal 2021-08-20 Completed University o f Polysaccharide, 00:00:00 [place] Med ical PPSV23 (PNEUMOVAX) Branch Pneumococcal 2021-08-20 Completed University o f Polysaccharide, 00:00:00 [place] Med ical PPSV23 (PNEUMOVAX) Branch Pneumococcal 2021-08-20 Completed University o f Polysaccharide, 00:00:00 [place] Med ical PPSV23 (PNEUMOVAX) Branch Pneumococcal 2021-08-20 Completed University o f Polysaccharide, 00:00:00 [place] Med ical PPSV23 (PNEUMOVAX) Branch Pneumococcal 2021-08-20 Completed University o f Polysaccharide, 00:00:00 [place] Med ical PPSV23 (PNEUMOVAX) Branch Pneumococcal 2021-08-20 Completed University o f Polysaccharide, 00:00:00 [place] Med ical PPSV23 (PNEUMOVAX) Branch Pneumococcal 2021-08-20 Completed University o f Polysaccharide, 00:00:00 [place] Med ical PPSV23 (PNEUMOVAX) Branch Pneumococcal 2021-08-20 Completed University o f Polysaccharide, 00:00:00 [place] Med ical PPSV23 (PNEUMOVAX) Branch Pneumococcal 2021-08-20 Completed University o f Polysaccharide, 00:00:00 [place] Med ical PPSV23 (PNEUMOVAX) Branch Pneumococcal 2021-08-20 Completed University o f Polysaccharide, 00:00:00 [place] Med ical PPSV23 (PNEUMOVAX) Branch Pneumococcal 2021-08-20 Completed University o f Polysaccharide, 00:00:00 [place] Med ical PPSV23 (PNEUMOVAX) Branch Pneumococcal 2021-08-20 Completed University o f Polysaccharide, 00:00:00 [place] Med ical PPSV23 (PNEUMOVAX) Branch Pneumococcal 2021-08-20 Completed University o f Polysaccharide, 00:00:00 [place] Med ical PPSV23 (PNEUMOVAX) Branch Pneumococcal 2021-08-20 Completed University o f Polysaccharide, 00:00:00 [place] Med ical PPSV23 (PNEUMOVAX) Branch Pneumococcal 2021-08-20 Completed University o f Polysaccharide, 00:00:00 [place] Med ical PPSV23 (PNEUMOVAX) Branch Pneumococcal 2021-08-20 Completed University o f Polysaccharide, 00:00:00 [place] Med ical PPSV23 (PNEUMOVAX) Branch Pneumococcal 2021-08-20 Completed University o f Polysaccharide, 00:00:00 [place] Med ical PPSV23 (PNEUMOVAX) Branch Pneumococcal 2021-08-20 Completed University o f Polysaccharide, 00:00:00 [place] Med ical PPSV23 (PNEUMOVAX) Branch Pneumococcal 2021-08-20 Completed University o f Polysaccharide, 00:00:00 [place] Med ical PPSV23 (PNEUMOVAX) Branch Pneumococcal 2021-08-20 Completed University o f Polysaccharide, 00:00:00 [place] Med ical PPSV23 (PNEUMOVAX) Branch Pneumococcal 2021-08-20 Completed University o f Polysaccharide, 00:00:00 [place] Med ical PPSV23 (PNEUMOVAX) Branch Pneumococcal 2021-08-20 Completed University o f Polysaccharide, 00:00:00 [place] Med ical PPSV23 (PNEUMOVAX) Branch Pneumococcal 2021-08-20 Completed University o f Polysaccharide, 00:00:00 [place] Med ical PPSV23 (PNEUMOVAX) Branch Pneumococcal 2021-08-20 Completed University o f Polysaccharide, 00:00:00 [place] Med ical PPSV23 (PNEUMOVAX) Branch Pneumococcal 2021-08-20 Completed University o f Polysaccharide, 00:00:00 [place] Med ical PPSV23 (PNEUMOVAX) Branch Pneumococcal 2021-08-20 Completed University o f Polysaccharide, 00:00:00 [place] Med ical PPSV23 (PNEUMOVAX) Branch Pneumococcal 2021-08-20 Completed University o f Polysaccharide, 00:00:00 [place] Med ical PPSV23 (PNEUMOVAX) Branch Pneumococcal 2021-08-20 Completed University o f Polysaccharide, 00:00:00 [place] Med ical PPSV23 (PNEUMOVAX) Branch Pneumococcal 2021-08-20 Completed University o f Polysaccharide, 00:00:00 [place] Med ical PPSV23 (PNEUMOVAX) Branch Pneumococcal 2021-08-20 Completed University o f Polysaccharide, 00:00:00 [place] Med ical PPSV23 (PNEUMOVAX) Branch Pneumococcal 2021-08-20 Completed University o f Polysaccharide, 00:00:00 [place] Med ical PPSV23 (PNEUMOVAX) Branch Pneumococcal 2021-08-20 Completed University o f Polysaccharide, 00:00:00 [place] Med ical PPSV23 (PNEUMOVAX) Branch Pneumococcal 2021-08-20 Completed University o f Polysaccharide, 00:00:00 [place] Med ical PPSV23 (PNEUMOVAX) Branch Pneumococcal 2021-08-20 Completed University o f Polysaccharide, 00:00:00 [place] Med ical PPSV23 (PNEUMOVAX) Branch Pneumococcal 2021-08-20 Completed University o f Polysaccharide, 00:00:00 [place] Med ical PPSV23 (PNEUMOVAX) Branch Pneumococcal 2021-08-20 Completed University o f Polysaccharide, 00:00:00 [place] Med ical PPSV23 (PNEUMOVAX) Branch Pneumococcal 2021-08-20 Completed University o f Polysaccharide, 00:00:00 [place] Med ical PPSV23 (PNEUMOVAX) Branch Pneumococcal 2021-08-20 Completed University o f Polysaccharide, 00:00:00 [place] Med ical PPSV23 (PNEUMOVAX) Branch Pneumococcal 2021-08-20 Completed University o f Polysaccharide, 00:00:00 [place] Med ical PPSV23 (PNEUMOVAX) Branch Pneumococcal 2021-08-20 Completed University o f Polysaccharide, 00:00:00 [place] Med ical PPSV23 (PNEUMOVAX) Branch Pneumococcal 2021-08-20 Completed University o f Polysaccharide, 00:00:00 [place] Med ical PPSV23 (PNEUMOVAX) Branch Pneumococcal 2021-08-20 Completed University o f Polysaccharide, 00:00:00 [place] Med ical PPSV23 (PNEUMOVAX) Branch Pneumococcal 2021-08-20 Completed University o f Polysaccharide, 00:00:00 [place] Med ical PPSV23 (PNEUMOVAX) Branch Pneumococcal 2021-08-20 Completed University o f Polysaccharide, 00:00:00 [place] Med ical PPSV23 (PNEUMOVAX) Branch Pneumococcal 2021-08-20 Completed University o f Polysaccharide, 00:00:00 [place] Med ical PPSV23 (PNEUMOVAX) Branch Pneumococcal 2021-08-20 Completed University o f Polysaccharide, 00:00:00 [place] Med ical PPSV23 (PNEUMOVAX) Branch Pneumococcal 2021-08-20 Completed University o f Polysaccharide, 00:00:00 [place] Med ical PPSV23 (PNEUMOVAX) Branch Pneumococcal 2021-08-20 Completed University o f Polysaccharide, 00:00:00 [place] Med ical PPSV23 (PNEUMOVAX) Branch Pneumococcal 2021-08-20 Completed University o f Polysaccharide, 00:00:00 [place] Med ical PPSV23 (PNEUMOVAX) Branch Pneumococcal 2021-08-20 Completed University o f Polysaccharide, 00:00:00 [place] Med ical PPSV23 (PNEUMOVAX) Branch Pneumococcal 2021-08-20 Completed University o f Polysaccharide, 00:00:00 [place] Med ical PPSV23 (PNEUMOVAX) Branch Pneumococcal 2021-08-20 Completed University o f Polysaccharide, 00:00:00 [place] Med ical PPSV23 (PNEUMOVAX) Branch Pneumococcal 2021-08-20 Completed University o f Polysaccharide, 00:00:00 [place] Med ical PPSV23 (PNEUMOVAX) Branch Pneumococcal 2021-08-20 Completed University o f Polysaccharide, 00:00:00 [place] Med ical PPSV23 (PNEUMOVAX) Branch Pneumococcal 2021-08-20 Completed University o f Polysaccharide, 00:00:00 [place] Med ical PPSV23 (PNEUMOVAX) Branch Pneumococcal 2021-08-20 Completed University o f Polysaccharide, 00:00:00 [place] Med ical PPSV23 (PNEUMOVAX) Branch Pneumococcal 2021-08-20 Completed University o f Polysaccharide, 00:00:00 [place] Med ical PPSV23 (PNEUMOVAX) Branch Pneumococcal 2021-08-20 Completed University o f Polysaccharide, 00:00:00 [place] Med ical PPSV23 (PNEUMOVAX) Branch Pneumococcal 2021-08-20 Completed University o f Polysaccharide, 00:00:00 [place] Med ical PPSV23 (PNEUMOVAX) Branch Pneumococcal 2021-08-20 Completed University o f Polysaccharide, 00:00:00 [place] Med ical PPSV23 (PNEUMOVAX) Branch Pneumococcal 2021-08-20 Completed University o f Polysaccharide, 00:00:00 [place] Med ical PPSV23 (PNEUMOVAX) Branch Pneumococcal 2021-08-20 Completed University o f Polysaccharide, 00:00:00 [place] Med ical PPSV23 (PNEUMOVAX) Branch Pneumococcal 2021-08-20 Completed University o f Polysaccharide, 00:00:00 [place] Med ical PPSV23 (PNEUMOVAX) Branch Pneumococcal 2021-08-20 Completed University o f Polysaccharide, 00:00:00 [place] Med ical PPSV23 (PNEUMOVAX) Branch Pneumococcal 2021-08-20 Completed University o f Polysaccharide, 00:00:00 [place] Med ical PPSV23 (PNEUMOVAX) Branch Pneumococcal 2021-08-20 Completed University o f Polysaccharide, 00:00:00 [place] Med ical PPSV23 (PNEUMOVAX) Branch Pneumococcal 2021-08-20 Completed University o f Polysaccharide, 00:00:00 [place] Med ical PPSV23 (PNEUMOVAX) Branch Pneumococcal 2021-08-20 Completed University o f Polysaccharide, 00:00:00 [place] Med ical PPSV23 (PNEUMOVAX) Branch Pneumococcal 2021-08-20 Completed University o f Polysaccharide, 00:00:00 [place] Med ical PPSV23 (PNEUMOVAX) Branch Pneumococcal 2021-08-20 Completed University o f Polysaccharide, 00:00:00 [place] Med ical PPSV23 (PNEUMOVAX) Branch Pneumococcal 2021-08-20 Completed University o f Polysaccharide, 00:00:00 [place] Med ical PPSV23 (PNEUMOVAX) Branch Pneumococcal 2021-08-20 Completed University o f Polysaccharide, 00:00:00 [place] Med ical PPSV23 (PNEUMOVAX) Branch Pneumococcal 2021-08-20 Completed University o f Polysaccharide, 00:00:00 [place] Med ical PPSV23 (PNEUMOVAX) Branch Pneumococcal 2021-08-20 Completed University o f Polysaccharide, 00:00:00 [place] Med ical PPSV23 (PNEUMOVAX) Branch Pneumococcal 2021-08-20 Completed University o f Polysaccharide, 00:00:00 [place] Med ical PPSV23 (PNEUMOVAX) Branch Pneumococcal 2021-08-20 Completed University o f Polysaccharide, 00:00:00 [place] Med ical PPSV23 (PNEUMOVAX) Branch Pneumococcal 2021-08-20 Completed University o f Polysaccharide, 00:00:00 [place] Med ical PPSV23 (PNEUMOVAX) Branch Pneumococcal 2021-08-20 Completed University o f Polysaccharide, 00:00:00 [place] Med ical PPSV23 (PNEUMOVAX) Branch Pneumococcal 2021-08-20 Completed University o f Polysaccharide, 00:00:00 [place] Med ical PPSV23 (PNEUMOVAX) Branch Pneumococcal 2021-08-20 Completed University o f Polysaccharide, 00:00:00 [place] Med ical PPSV23 (PNEUMOVAX) Branch Pneumococcal 2021-08-20 Completed University o f Polysaccharide, 00:00:00 [place] Med ical PPSV23 (PNEUMOVAX) Branch Pneumococcal 2021-08-20 Completed University o f Polysaccharide, 00:00:00 [place] Med ical PPSV23 (PNEUMOVAX) Branch Pneumococcal 2021-08-20 Completed University o f Polysaccharide, 00:00:00 [place] Med ical PPSV23 (PNEUMOVAX) Branch Pneumococcal 2021-08-20 Completed University o f Polysaccharide, 00:00:00 [place] Med ical PPSV23 (PNEUMOVAX) Branch Pneumococcal 2021-08-20 Completed University o f Polysaccharide, 00:00:00 [place] Med ical PPSV23 (PNEUMOVAX) Branch Pneumococcal 2021-08-20 Completed University o f Polysaccharide, 00:00:00 [place] Med ical PPSV23 (PNEUMOVAX) Branch Pneumococcal 2021-08-20 Completed University o f Polysaccharide, 00:00:00 [place] Med ical PPSV23 (PNEUMOVAX) Branch Pneumococcal 2021-08-20 Completed University o f Polysaccharide, 00:00:00 [place] Med ical PPSV23 (PNEUMOVAX) Branch Pneumococcal 2021-08-20 Completed University o f Polysaccharide, 00:00:00 [place] Med ical PPSV23 (PNEUMOVAX) Branch Pneumococcal 2021-08-20 Completed University o f Polysaccharide, 00:00:00 [place] Med ical PPSV23 (PNEUMOVAX) Branch Pneumococcal 2021-08-20 Completed University o f Polysaccharide, 00:00:00 [place] Med ical PPSV23 (PNEUMOVAX) Branch Pneumococcal 2021-08-20 Completed University o f Polysaccharide, 00:00:00 [place] Med ical PPSV23 (PNEUMOVAX) Branch Pneumococcal 2021-08-20 Completed University o f Polysaccharide, 00:00:00 [place] Med ical PPSV23 (PNEUMOVAX) Branch Pneumococcal 2021-08-20 Completed University o f Polysaccharide, 00:00:00 [place] Med ical PPSV23 (PNEUMOVAX) Branch Pneumococcal 2021-08-20 Completed University o f Polysaccharide, 00:00:00 [place] Med ical PPSV23 (PNEUMOVAX) Branch Pneumococcal 2021-08-20 Completed University o f Polysaccharide, 00:00:00 [place] Med ical PPSV23 (PNEUMOVAX) Branch Pneumococcal 2021-08-20 Completed University o f Polysaccharide, 00:00:00 [place] Med ical PPSV23 (PNEUMOVAX) Branch Pneumococcal 2021-08-20 Completed University o f Polysaccharide, 00:00:00 [place] Med ical PPSV23 (PNEUMOVAX) Branch Pneumococcal 2021-08-20 Completed University o f Polysaccharide, 00:00:00 [place] Med ical PPSV23 (PNEUMOVAX) Branch Pneumococcal 2021-08-20 Completed University o f Polysaccharide, 00:00:00 [place] Med ical PPSV23 (PNEUMOVAX) Branch Pneumococcal 2021-08-20 Completed University o f Polysaccharide, 00:00:00 [place] Med ical PPSV23 (PNEUMOVAX) Branch Pneumococcal 2021-08-20 Completed University o f Polysaccharide, 00:00:00 [place] Med ical PPSV23 (PNEUMOVAX) Branch Pneumococcal 2021-08-20 Completed University o f Polysaccharide, 00:00:00 [place] Med ical PPSV23 (PNEUMOVAX) Branch Pneumococcal 2021-08-20 Completed University o f Polysaccharide, 00:00:00 [place] Med ical PPSV23 (PNEUMOVAX) Branch SARS-COV-2 COVID-19 2021-02-28 Completed Unive rsity of PFIZER VACCINE 00:00:00 [facility] SARS-COV-2 COVID-19 2021-02-28 Completed Unive rsity of PFIZER VACCINE 00:00:00 [facility] SARS-COV-2 COVID-19 2021-02-28 Completed Unive rsity of PFIZER VACCINE 00:00:00 [facility] SARS-COV-2 COVID-19 2021-02-28 Completed Unive rsity of PFIZER VACCINE 00:00:00 [facility] SARS-COV-2 COVID-19 2021-02-28 Completed Unive rsity of PFIZER VACCINE 00:00:00 [facility] SARS-COV-2 COVID-19 2021-02-28 Completed Unive rsity of PFIZER VACCINE 00:00:00 [facility] SARS-COV-2 COVID-19 2021-02-28 Completed Unive rsity of PFIZER VACCINE 00:00:00 [facility] SARS-COV-2 COVID-19 2021-02-28 Completed Unive rsity of PFIZER VACCINE 00:00:00 [facility] SARS-COV-2 COVID-19 2021-02-28 Completed Unive rsity of PFIZER VACCINE 00:00:00 [facility] SARS-COV-2 COVID-19 2021-02-28 Completed Unive rsity of PFIZER VACCINE 00:00:00 [facility] SARS-COV-2 COVID-19 2021-02-28 Completed Unive rsity of PFIZER VACCINE 00:00:00 [place] [facility] SARS-COV-2 COVID-19 2021-02-28 Completed Unive rsity of PFIZER VACCINE 00:00:00 [facility] [place] [facility] SARS-COV-2 COVID-19 2021-02-28 Completed Unive rsity of PFIZER VACCINE 00:00:00 [facility] [place] [facility] SARS-COV-2 COVID-19 2021-02-28 Completed Unive rsity of PFIZER VACCINE 00:00:00 [facility] [place] Branch SARS-COV-2 COVID-19 2021-02-28 Completed Unive rsity of PFIZER VACCINE 00:00:00 [facility] [place] Branch SARS-COV-2 COVID-19 2021-02-28 Completed Unive rsity of PFIZER VACCINE 00:00:00 [facility] [place] Branch SARS-COV-2 COVID-19 2021-02-28 Completed Unive rsity of PFIZER VACCINE 00:00:00 [facility] [place] Branch SARS-COV-2 COVID-19 2021-02-28 Completed Unive rsity of PFIZER VACCINE 00:00:00 [facility] [place] [facility] SARS-COV-2 COVID-19 2021-02-28 Completed Unive rsity of PFIZER VACCINE 00:00:00 [facility] [place] Branch SARS-COV-2 COVID-19 2021-02-28 Completed Unive rsity of PFIZER VACCINE 00:00:00 [facility] [place] Branch SARS-COV-2 COVID-19 2021-02-28 Completed Unive rsity of PFIZER VACCINE 00:00:00 [facility] SARS-COV-2 COVID-19 2021-02-28 Completed Unive rsity of PFIZER VACCINE 00:00:00 [facility] [place] Branch SARS-COV-2 COVID-19 2021-02-28 Completed Unive rsity of PFIZER VACCINE 00:00:00 [facility] [place] [facility] SARS-COV-2 COVID-19 2021-02-28 Completed Unive rsity of PFIZER VACCINE 00:00:00 [facility] [place] [facility] SARS-COV-2 COVID-19 2021-02-28 Completed Unive rsity of PFIZER VACCINE 00:00:00 [facility] SARS-COV-2 COVID-19 2021-02-28 Completed Unive rsity of PFIZER VACCINE 00:00:00 [facility] [place] [facility] SARS-COV-2 COVID-19 2021-02-28 Completed Unive rsity of PFIZER VACCINE 00:00:00 [facility] [place] Branch SARS-COV-2 COVID-19 2021-02-28 Completed Unive rsity of PFIZER VACCINE 00:00:00 [facility] [place] [facility] SARS-COV-2 COVID-19 2021-02-28 Completed Unive rsity of PFIZER VACCINE 00:00:00 [facility] [place] [facility] SARS-COV-2 COVID-19 2021-02-28 Completed Unive rsity of PFIZER VACCINE 00:00:00 [facility] [place] [facility] SARS-COV-2 COVID-19 2021-02-28 Completed Unive rsity of PFIZER VACCINE 00:00:00 [facility] SARS-COV-2 COVID-19 2021-02-28 Completed [facility] PFIZER VACCINE 00:00:00 [facility] SARS-COV-2 COVID-19 2021-02-28 Completed [facility] PFIZER VACCINE 00:00:00 [facility] SARS-COV-2 COVID-19 2021-02-28 Completed [facility] PFIZER VACCINE 00:00:00 [facility] SARS-COV-2 COVID-19 2021-02-28 Completed [facility] PFIZER VACCINE 00:00:00 [facility] SARS-COV-2 COVID-19 2021-02-28 Completed [facility] PFIZER VACCINE 00:00:00 [facility] SARS-COV-2 COVID-19 2021-02-28 Completed [facility] PFIZER VACCINE 00:00:00 [facility] SARS-COV-2 COVID-19 2021-02-28 Completed [facility] PFIZER VACCINE 00:00:00 [facility] SARS-COV-2 COVID-19 2021-02-28 Completed [facility] PFIZER VACCINE 00:00:00 [facility] SARS-COV-2 COVID-19 2021-02-28 Completed [facility] PFIZER VACCINE 00:00:00 [facility] SARS-COV-2 COVID-19 2021-02-28 Completed [facility] PFIZER VACCINE 00:00:00 [facility] SARS-COV-2 COVID-19 2021-02-28 Completed [facility] PFIZER VACCINE 00:00:00 [facility] SARS-COV-2 COVID-19 2021-02-28 Completed [facility] PFIZER VACCINE 00:00:00 [facility] SARS-COV-2 COVID-19 2021-02-28 Completed [facility] PFIZER VACCINE 00:00:00 [facility] SARS-COV-2 COVID-19 2021-02-28 Completed [facility] PFIZER VACCINE 00:00:00 [facility] SARS-COV-2 COVID-19 2021-02-28 Completed [facility] PFIZER VACCINE 00:00:00 [facility] SARS-COV-2 COVID-19 2021-02-28 Completed [facility] PFIZER VACCINE 00:00:00 [facility] SARS-COV-2 COVID-19 2021-02-28 Completed [facility] PFIZER VACCINE 00:00:00 [facility] SARS-COV-2 COVID-19 2021-02-28 Completed [facility] PFIZER VACCINE 00:00:00 [facility] SARS-COV-2 COVID-19 2021-02-28 Completed [facility] PFIZER VACCINE 00:00:00 [facility] SARS-COV-2 COVID-19 2021-02-28 Completed [facility] PFIZER VACCINE 00:00:00 [facility] SARS-COV-2 COVID-19 2021-02-28 Completed [facility] PFIZER VACCINE 00:00:00 [facility] SARS-COV-2 COVID-19 2021-02-28 Completed [facility] PFIZER VACCINE 00:00:00 [facility] SARS-COV-2 COVID-19 2021-02-28 Completed [facility] PFIZER VACCINE 00:00:00 [facility] SARS-COV-2 COVID-19 2021-02-28 Completed [facility] PFIZER VACCINE 00:00:00 [facility] SARS-COV-2 COVID-19 2021-02-28 Completed [facility] PFIZER VACCINE 00:00:00 [facility] SARS-COV-2 COVID-19 2021-02-28 Completed [facility] PFIZER VACCINE 00:00:00 [facility] SARS-COV-2 COVID-19 2021-02-28 Completed [facility] PFIZER VACCINE 00:00:00 [facility] SARS-COV-2 COVID-19 2021-02-28 Completed [facility] PFIZER VACCINE 00:00:00 [facility] SARS-COV-2 COVID-19 2021-02-28 Completed [facility] PFIZER VACCINE 00:00:00 [facility] SARS-COV-2 COVID-19 2021-02-28 Completed [facility] PFIZER VACCINE 00:00:00 [facility] SARS-COV-2 COVID-19 2021-02-28 Completed [facility] PFIZER VACCINE 00:00:00 [facility] SARS-COV-2 COVID-19 2021-02-28 Completed [facility] PFIZER VACCINE 00:00:00 [facility] SARS-COV-2 COVID-19 2021-02-28 Completed [facility] PFIZER VACCINE 00:00:00 [facility] SARS-COV-2 COVID-19 2021-02-28 Completed [facility] PFIZER VACCINE 00:00:00 [facility] SARS-COV-2 COVID-19 2021-02-28 Completed [facility] PFIZER VACCINE 00:00:00 [facility] SARS-COV-2 COVID-19 2021-02-28 Completed [facility] PFIZER VACCINE 00:00:00 [facility] SARS-COV-2 COVID-19 2021-02-28 Completed [facility] PFIZER VACCINE 00:00:00 [facility] SARS-COV-2 COVID-19 2021-02-28 Completed [facility] PFIZER VACCINE 00:00:00 [facility] SARS-COV-2 COVID-19 2021-02-28 Completed [facility] PFIZER VACCINE 00:00:00 [facility] SARS-COV-2 COVID-19 2021-02-28 Completed [facility] PFIZER VACCINE 00:00:00 [facility] SARS-COV-2 COVID-19 2021-02-28 Completed [facility] PFIZER VACCINE 00:00:00 [facility] SARS-COV-2 COVID-19 2021-02-28 Completed [facility] PFIZER VACCINE 00:00:00 [facility] SARS-COV-2 COVID-19 2021-02-28 Completed [facility] PFIZER VACCINE 00:00:00 [facility] SARS-COV-2 COVID-19 2021-02-28 Completed [facility] PFIZER VACCINE 00:00:00 [facility] SARS-COV-2 COVID-19 2021-02-28 Completed [facility] PFIZER VACCINE 00:00:00 [facility] SARS-COV-2 COVID-19 2021-02-28 Completed [facility] PFIZER VACCINE 00:00:00 [facility] SARS-COV-2 COVID-19 2021-02-28 Completed [facility] PFIZER VACCINE 00:00:00 [facility] SARS-COV-2 COVID-19 2021-02-28 Completed [facility] PFIZER VACCINE 00:00:00 [facility] SARS-COV-2 COVID-19 2021-02-28 Completed [facility] PFIZER VACCINE 00:00:00 [facility] SARS-COV-2 COVID-19 2021-02-28 Completed [facility] PFIZER VACCINE 00:00:00 [facility] SARS-COV-2 COVID-19 2021-02-28 Completed [facility] PFIZER VACCINE 00:00:00 [facility] SARS-COV-2 COVID-19 2021-02-28 Completed [facility] PFIZER VACCINE 00:00:00 [facility] SARS-COV-2 COVID-19 2021-02-28 Completed [facility] PFIZER VACCINE 00:00:00 [facility] SARS-COV-2 COVID-19 2021-02-28 Completed [facility] PFIZER VACCINE 00:00:00 [facility] SARS-COV-2 COVID-19 2021-02-28 Completed [facility] PFIZER VACCINE 00:00:00 [facility] SARS-COV-2 COVID-19 2021-02-28 Completed [facility] PFIZER VACCINE 00:00:00 [facility] SARS-COV-2 COVID-19 2021-02-28 Completed [facility] PFIZER VACCINE 00:00:00 [facility] SARS-COV-2 COVID-19 2021-02-28 Completed [facility] PFIZER VACCINE 00:00:00 [facility] SARS-COV-2 COVID-19 2021-02-28 Completed [facility] PFIZER VACCINE 00:00:00 [facility] SARS-COV-2 COVID-19 2021-02-28 Completed [facility] PFIZER VACCINE 00:00:00 [facility] SARS-COV-2 COVID-19 2021-02-28 Completed [facility] PFIZER VACCINE 00:00:00 [facility] SARS-COV-2 COVID-19 2021-02-28 Completed [facility] PFIZER VACCINE 00:00:00 [facility] SARS-COV-2 COVID-19 2021-02-28 Completed [facility] PFIZER VACCINE 00:00:00 [facility] SARS-COV-2 COVID-19 2021-02-28 Completed [facility] PFIZER VACCINE 00:00:00 [facility] SARS-COV-2 COVID-19 2021-02-28 Completed [facility] PFIZER VACCINE 00:00:00 [facility] SARS-COV-2 COVID-19 2021-02-28 Completed [facility] PFIZER VACCINE 00:00:00 [facility] SARS-COV-2 COVID-19 2021-02-28 Completed [facility] PFIZER VACCINE 00:00:00 [facility] SARS-COV-2 COVID-19 2021-02-28 Completed [facility] PFIZER VACCINE 00:00:00 [facility] SARS-COV-2 COVID-19 2021-02-28 Completed [facility] PFIZER VACCINE 00:00:00 [facility] SARS-COV-2 COVID-19 2021-02-28 Completed [facility] PFIZER VACCINE 00:00:00 [facility] SARS-COV-2 COVID-19 2021-02-28 Completed [facility] PFIZER VACCINE 00:00:00 [facility] SARS-COV-2 COVID-19 2021-02-28 Completed [facility] PFIZER VACCINE 00:00:00 [facility] SARS-COV-2 COVID-19 2021-02-28 Completed [facility] PFIZER VACCINE 00:00:00 [facility] SARS-COV-2 COVID-19 2021-02-28 Completed [facility] PFIZER VACCINE 00:00:00 [facility] SARS-COV-2 COVID-19 2021-02-28 Completed [facility] PFIZER VACCINE 00:00:00 [facility] SARS-COV-2 COVID-19 2021-02-28 Completed [facility] PFIZER VACCINE 00:00:00 [facility] SARS-COV-2 COVID-19 2021-02-28 Completed [facility] PFIZER VACCINE 00:00:00 [facility] SARS-COV-2 COVID-19 2021-02-28 Completed [facility] PFIZER VACCINE 00:00:00 [facility] SARS-COV-2 COVID-19 2021-02-28 Completed [facility] PFIZER VACCINE 00:00:00 [facility] SARS-COV-2 COVID-19 2021-02-28 Completed [facility] PFIZER VACCINE 00:00:00 [facility] SARS-COV-2 COVID-19 2021-02-28 Completed [facility] PFIZER VACCINE 00:00:00 [facility] SARS-COV-2 COVID-19 2021-02-28 Completed [facility] PFIZER VACCINE 00:00:00 [facility] SARS-COV-2 COVID-19 2021-02-28 Completed [facility] PFIZER VACCINE 00:00:00 [facility] SARS-COV-2 COVID-19 2021-02-28 Completed [facility] PFIZER VACCINE 00:00:00 [facility] SARS-COV-2 COVID-19 2021-02-28 Completed [facility] PFIZER VACCINE 00:00:00 [facility] SARS-COV-2 COVID-19 2021-02-28 Completed [facility] PFIZER VACCINE 00:00:00 [facility] SARS-COV-2 COVID-19 2021-02-28 Completed [facility] PFIZER VACCINE 00:00:00 [facility] SARS-COV-2 COVID-19 2021-02-28 Completed [facility] PFIZER VACCINE 00:00:00 [facility] SARS-COV-2 COVID-19 2021-02-28 Completed [facility] PFIZER VACCINE 00:00:00 [facility] SARS-COV-2 COVID-19 2021-02-28 Completed [facility] PFIZER VACCINE 00:00:00 [facility] SARS-COV-2 COVID-19 2021-02-28 Completed [facility] PFIZER VACCINE 00:00:00 [facility] SARS-COV-2 COVID-19 2021-02-28 Completed [facility] PFIZER VACCINE 00:00:00 [facility] SARS-COV-2 COVID-19 2021-02-28 Completed [facility] PFIZER VACCINE 00:00:00 [facility] SARS-COV-2 COVID-19 2021-02-28 Completed [facility] PFIZER VACCINE 00:00:00 [facility] SARS-COV-2 COVID-19 2021-02-28 Completed [facility] PFIZER VACCINE 00:00:00 [facility] SARS-COV-2 COVID-19 2021-02-28 Completed [facility] PFIZER VACCINE 00:00:00 [facility] SARS-COV-2 COVID-19 2021-02-28 Completed [facility] PFIZER VACCINE 00:00:00 [facility] SARS-COV-2 COVID-19 2021-02-28 Completed [facility] PFIZER VACCINE 00:00:00 [facility] SARS-COV-2 COVID-19 2021-02-06 Completed [facility] PFIZER VACCINE 00:00:00 [facility] SARS-COV-2 COVID-19 2021-02-06 Completed [facility] PFIZER VACCINE 00:00:00 [facility] SARS-COV-2 COVID-19 2021-02-06 Completed [facility] PFIZER VACCINE 00:00:00 [facility] SARS-COV-2 COVID-19 2021-02-06 Completed [facility] PFIZER VACCINE 00:00:00 [facility] SARS-COV-2 COVID-19 2021-02-06 Completed [facility] PFIZER VACCINE 00:00:00 [facility] SARS-COV-2 COVID-19 2021-02-06 Completed [facility] PFIZER VACCINE 00:00:00 [facility] SARS-COV-2 COVID-19 2021-02-06 Completed [facility] PFIZER VACCINE 00:00:00 [facility] SARS-COV-2 COVID-19 2021-02-06 Completed [facility] PFIZER VACCINE 00:00:00 [facility] SARS-COV-2 COVID-19 2021-02-06 Completed [facility] PFIZER VACCINE 00:00:00 [facility] SARS-COV-2 COVID-19 2021-02-06 Completed [facility] PFIZER VACCINE 00:00:00 [facility] SARS-COV-2 COVID-19 2021-02-06 Completed [facility] PFIZER VACCINE 00:00:00 [facility] SARS-COV-2 COVID-19 2021-02-06 Completed [facility] PFIZER VACCINE 00:00:00 [facility] SARS-COV-2 COVID-19 2021-02-06 Completed [facility] PFIZER VACCINE 00:00:00 [facility] SARS-COV-2 COVID-19 2021-02-06 Completed [facility] PFIZER VACCINE 00:00:00 [facility] SARS-COV-2 COVID-19 2021-02-06 Completed [facility] PFIZER VACCINE 00:00:00 [facility] SARS-COV-2 COVID-19 2021-02-06 Completed [facility] PFIZER VACCINE 00:00:00 [facility] SARS-COV-2 COVID-19 2021-02-06 Completed [facility] PFIZER VACCINE 00:00:00 [facility] SARS-COV-2 COVID-19 2021-02-06 Completed [facility] PFIZER VACCINE 00:00:00 [facility] SARS-COV-2 COVID-19 2021-02-06 Completed [facility] PFIZER VACCINE 00:00:00 [facility] SARS-COV-2 COVID-19 2021-02-06 Completed [facility] PFIZER VACCINE 00:00:00 [facility] SARS-COV-2 COVID-19 2021-02-06 Completed [facility] PFIZER VACCINE 00:00:00 [facility] SARS-COV-2 COVID-19 2021-02-06 Completed [facility] PFIZER VACCINE 00:00:00 [facility] SARS-COV-2 COVID-19 2021-02-06 Completed [facility] PFIZER VACCINE 00:00:00 [facility] SARS-COV-2 COVID-19 2021-02-06 Completed [facility] PFIZER VACCINE 00:00:00 [facility] SARS-COV-2 COVID-19 2021-02-06 Completed [facility] PFIZER VACCINE 00:00:00 [facility] SARS-COV-2 COVID-19 2021-02-06 Completed [facility] PFIZER VACCINE 00:00:00 [facility] SARS-COV-2 COVID-19 2021-02-06 Completed [facility] PFIZER VACCINE 00:00:00 [facility] SARS-COV-2 COVID-19 2021-02-06 Completed [facility] PFIZER VACCINE 00:00:00 [facility] SARS-COV-2 COVID-19 2021-02-06 Completed [facility] PFIZER VACCINE 00:00:00 [facility] SARS-COV-2 COVID-19 2021-02-06 Completed [facility] PFIZER VACCINE 00:00:00 [facility] SARS-COV-2 COVID-19 2021-02-06 Completed [facility] PFIZER VACCINE 00:00:00 [facility] SARS-COV-2 COVID-19 2021-02-06 Completed [facility] PFIZER VACCINE 00:00:00 [facility] SARS-COV-2 COVID-19 2021-02-06 Completed [facility] PFIZER VACCINE 00:00:00 [facility] SARS-COV-2 COVID-19 2021-02-06 Completed [facility] PFIZER VACCINE 00:00:00 [facility] SARS-COV-2 COVID-19 2021-02-06 Completed [facility] PFIZER VACCINE 00:00:00 [facility] SARS-COV-2 COVID-19 2021-02-06 Completed [facility] PFIZER VACCINE 00:00:00 [facility] SARS-COV-2 COVID-19 2021-02-06 Completed [facility] PFIZER VACCINE 00:00:00 [facility] SARS-COV-2 COVID-19 2021-02-06 Completed [facility] PFIZER VACCINE 00:00:00 [facility] SARS-COV-2 COVID-19 2021-02-06 Completed [facility] PFIZER VACCINE 00:00:00 [facility] SARS-COV-2 COVID-19 2021-02-06 Completed [facility] PFIZER VACCINE 00:00:00 [facility] SARS-COV-2 COVID-19 2021-02-06 Completed [facility] PFIZER VACCINE 00:00:00 [facility] SARS-COV-2 COVID-19 2021-02-06 Completed [facility] PFIZER VACCINE 00:00:00 [facility] SARS-COV-2 COVID-19 2021-02-06 Completed [facility] PFIZER VACCINE 00:00:00 [facility] SARS-COV-2 COVID-19 2021-02-06 Completed [facility] PFIZER VACCINE 00:00:00 [facility] SARS-COV-2 COVID-19 2021-02-06 Completed [facility] PFIZER VACCINE 00:00:00 [facility] SARS-COV-2 COVID-19 2021-02-06 Completed [facility] PFIZER VACCINE 00:00:00 [facility] SARS-COV-2 COVID-19 2021-02-06 Completed [facility] PFIZER VACCINE 00:00:00 [facility] SARS-COV-2 COVID-19 2021-02-06 Completed [facility] PFIZER VACCINE 00:00:00 [facility] SARS-COV-2 COVID-19 2021-02-06 Completed [facility] PFIZER VACCINE 00:00:00 [facility] SARS-COV-2 COVID-19 2021-02-06 Completed [facility] PFIZER VACCINE 00:00:00 [facility] SARS-COV-2 COVID-19 2021-02-06 Completed [facility] PFIZER VACCINE 00:00:00 [facility] SARS-COV-2 COVID-19 2021-02-06 Completed [facility] PFIZER VACCINE 00:00:00 [facility] SARS-COV-2 COVID-19 2021-02-06 Completed [facility] PFIZER VACCINE 00:00:00 [facility] SARS-COV-2 COVID-19 2021-02-06 Completed [facility] PFIZER VACCINE 00:00:00 [facility] SARS-COV-2 COVID-19 2021-02-06 Completed [facility] PFIZER VACCINE 00:00:00 [facility] SARS-COV-2 COVID-19 2021-02-06 Completed [facility] PFIZER VACCINE 00:00:00 [facility] SARS-COV-2 COVID-19 2021-02-06 Completed [facility] PFIZER VACCINE 00:00:00 [facility] SARS-COV-2 COVID-19 2021-02-06 Completed [facility] PFIZER VACCINE 00:00:00 [facility] SARS-COV-2 COVID-19 2021-02-06 Completed [facility] PFIZER VACCINE 00:00:00 [facility] SARS-COV-2 COVID-19 2021-02-06 Completed [facility] PFIZER VACCINE 00:00:00 [facility] SARS-COV-2 COVID-19 2021-02-06 Completed [facility] PFIZER VACCINE 00:00:00 [facility] SARS-COV-2 COVID-19 2021-02-06 Completed [facility] PFIZER VACCINE 00:00:00 [facility] SARS-COV-2 COVID-19 2021-02-06 Completed [facility] PFIZER VACCINE 00:00:00 [facility] SARS-COV-2 COVID-19 2021-02-06 Completed [facility] PFIZER VACCINE 00:00:00 [facility] SARS-COV-2 COVID-19 2021-02-06 Completed [facility] PFIZER VACCINE 00:00:00 [facility] SARS-COV-2 COVID-19 2021-02-06 Completed [facility] PFIZER VACCINE 00:00:00 [facility] SARS-COV-2 COVID-19 2021-02-06 Completed [facility] PFIZER VACCINE 00:00:00 [facility] SARS-COV-2 COVID-19 2021-02-06 Completed [facility] PFIZER VACCINE 00:00:00 [facility] SARS-COV-2 COVID-19 2021-02-06 Completed [facility] PFIZER VACCINE 00:00:00 [facility] SARS-COV-2 COVID-19 2021-02-06 Completed [facility] PFIZER VACCINE 00:00:00 [facility] SARS-COV-2 COVID-19 2021-02-06 Completed [facility] PFIZER VACCINE 00:00:00 [facility] SARS-COV-2 COVID-19 2021-02-06 Completed [facility] PFIZER VACCINE 00:00:00 [facility] SARS-COV-2 COVID-19 2021-02-06 Completed [facility] PFIZER VACCINE 00:00:00 [facility] SARS-COV-2 COVID-19 2021-02-06 Completed [facility] PFIZER VACCINE 00:00:00 [facility] SARS-COV-2 COVID-19 2021-02-06 Completed [facility] PFIZER VACCINE 00:00:00 [facility] SARS-COV-2 COVID-19 2021-02-06 Completed [facility] PFIZER VACCINE 00:00:00 [facility] SARS-COV-2 COVID-19 2021-02-06 Completed [facility] PFIZER VACCINE 00:00:00 [facility] SARS-COV-2 COVID-19 2021-02-06 Completed [facility] PFIZER VACCINE 00:00:00 [facility] [place] [facility] SARS-COV-2 COVID-19 2021-02-06 Completed [facility] PFIZER VACCINE 00:00:00 [facility] SARS-COV-2 COVID-19 2021-02-06 Completed [facility] PFIZER VACCINE 00:00:00 [facility] SARS-COV-2 COVID-19 2021-02-06 Completed [facility] PFIZER VACCINE 00:00:00 [facility] SARS-COV-2 COVID-19 2021-02-06 Completed [facility] PFIZER VACCINE 00:00:00 [facility] SARS-COV-2 COVID-19 2021-02-06 Completed [facility] PFIZER VACCINE 00:00:00 [facility] SARS-COV-2 COVID-19 2021-02-06 Completed [facility] PFIZER VACCINE 00:00:00 [facility] [place] [facility] SARS-COV-2 COVID-19 2021-02-06 Completed [facility] PFIZER VACCINE 00:00:00 [facility] [place] [facility] SARS-COV-2 COVID-19 2021-02-06 Completed [facility] PFIZER VACCINE 00:00:00 [facility] [place] [facility] SARS-COV-2 COVID-19 2021-02-06 Completed [facility] PFIZER VACCINE 00:00:00 [facility] [place] [facility] SARS-COV-2 COVID-19 2021-02-06 Completed [facility] PFIZER VACCINE 00:00:00 [facility] [place] [facility] SARS-COV-2 COVID-19 2021-02-06 Completed [facility] PFIZER VACCINE 00:00:00 [facility] [place] [facility] SARS-COV-2 COVID-19 2021-02-06 Completed [facility] PFIZER VACCINE 00:00:00 [facility] [place] [facility] SARS-COV-2 COVID-19 2021-02-06 Completed [facility] PFIZER VACCINE 00:00:00 [facility] [place] [facility] SARS-COV-2 COVID-19 2021-02-06 Completed [facility] PFIZER VACCINE 00:00:00 [facility] [place] [facility] SARS-COV-2 COVID-19 2021-02-06 Completed [facility] PFIZER VACCINE 00:00:00 [facility] [place] [facility] SARS-COV-2 COVID-19 2021-02-06 Completed [facility] PFIZER VACCINE 00:00:00 [facility] [place] [facility] SARS-COV-2 COVID-19 2021-02-06 Completed [facility] PFIZER VACCINE 00:00:00 [facility] [place] [facility] SARS-COV-2 COVID-19 2021-02-06 Completed [facility] PFIZER VACCINE 00:00:00 [facility] [place] [facility] SARS-COV-2 COVID-19 2021-02-06 Completed [facility] PFIZER VACCINE 00:00:00 [facility] [place] [facility] SARS-COV-2 COVID-19 2021-02-06 Completed [facility] PFIZER VACCINE 00:00:00 [facility] [place] [facility] SARS-COV-2 COVID-19 2021-02-06 Completed [facility] PFIZER VACCINE 00:00:00 [facility] [place] [facility] SARS-COV-2 COVID-19 2021-02-06 Completed [facility] PFIZER VACCINE 00:00:00 [facility] [place] [facility] SARS-COV-2 COVID-19 2021-02-06 Completed [facility] PFIZER VACCINE 00:00:00 [facility] [place] [facility] SARS-COV-2 COVID-19 2021-02-06 Completed [facility] PFIZER VACCINE 00:00:00 [facility] SARS-COV-2 COVID-19 2021-02-06 Completed [facility] PFIZER VACCINE 00:00:00 [facility] [place] [facility] SARS-COV-2 COVID-19 2021-02-06 Completed [facility] PFIZER VACCINE 00:00:00 [facility] [place] [facility] SARS-COV-2 COVID-19 2021-02-06 Completed [facility] PFIZER VACCINE 00:00:00 [facility] [place] [facility] SARS-COV-2 COVID-19 2021-02-06 Completed [facility] PFIZER VACCINE 00:00:00 [facility] [place] [facility] SARS-COV-2 COVID-19 2021-02-06 Completed [facility] PFIZER VACCINE 00:00:00 [facility] [place] [facility] SARS-COV-2 COVID-19 2021-02-06 Completed [facility] PFIZER VACCINE 00:00:00 [facility] [place] [facility] SARS-COV-2 COVID-19 2021-02-06 Completed [facility] PFIZER VACCINE 00:00:00 [facility] [place] [facility] SARS-COV-2 COVID-19 2021-02-06 Completed [facility] PFIZER VACCINE 00:00:00 [facility] [place] [facility] SARS-COV-2 COVID-19 2021-02-06 Completed [facility] PFIZER VACCINE 00:00:00 [facility] [place] [facility] SARS-COV-2 COVID-19 2021-02-06 Completed [facility] PFIZER VACCINE 00:00:00 [facility] [place] [facility] SARS-COV-2 COVID-19 2021-02-06 Completed [facility] PFIZER VACCINE 00:00:00 [facility] [place] [facility] SARS-COV-2 COVID-19 2021-02-06 Completed [facility] PFIZER VACCINE 00:00:00 [facility] [place] [facility] SARS-COV-2 COVID-19 2021-02-06 Completed [facility] PFIZER VACCINE 00:00:00 [facility] SARS-COV-2 COVID-19 2021-02-06 Completed [facility] PFIZER VACCINE 00:00:00 [facility] SARS-COV-2 COVID-19 2021-02-06 Completed [facility] PFIZER VACCINE 00:00:00 [facility] SARS-COV-2 COVID-19 2021-02-06 Completed [facility] PFIZER VACCINE 00:00:00 [facility] SARS-COV-2 COVID-19 2021-02-06 Completed [facility] PFIZER VACCINE 00:00:00 [facility] SARS-COV-2 COVID-19 2021-02-06 Completed [facility] PFIZER VACCINE 00:00:00 [facility] SARS-COV-2 COVID-19 2021-02-06 Completed [facility] PFIZER VACCINE 00:00:00 [facility] SARS-COV-2 COVID-19 2021-02-06 Completed [facility] PFIZER VACCINE 00:00:00 [facility] SARS-COV-2 COVID-19 2021-02-06 Completed [facility] PFIZER VACCINE 00:00:00 [facility] SARS-COV-2 COVID-19 2021-02-06 Completed [facility] PFIZER VACCINE 00:00:00 [facility] SARS-COV-2 COVID-19 2021-02-06 Completed [facility] PFIZER VACCINE 00:00:00 [facility] SARS-COV-2 COVID-19 2021-02-06 Completed [facility] PFIZER VACCINE 00:00:00 [facility] SARS-COV-2 COVID-19 2021-02-06 Completed [facility] PFIZER VACCINE 00:00:00 [facility] SARS-COV-2 COVID-19 2021-02-06 Completed [facility] PFIZER VACCINE 00:00:00 [facility] SARS-COV-2 COVID-19 2021-02-06 Completed [facility] PFIZER VACCINE 00:00:00 [facility] Influenza Virus 2020-08-24 Completed [facility] Vaccine [facility] .5 mL 00[facility]00:00 [facility] Influenza Virus 2020-08-24 Completed [facility] Vaccine [facility] .5 mL 00:00:00 [facility] Influenza Virus 2020-08-24 Completed [facility] Vaccine [facility] .5 mL 00:00:00 [facility] Influenza Virus 2020-08-24 Completed [facility] Vaccine [facility] .5 mL 00:00:00 [facility] Influenza Virus 2020-08-24 Completed [facility] Vaccine Quad .5 mL 00:00:00 [facility] Influenza Virus 2020-08-24 Completed [facility] Vaccine [facility] .5 mL 00:00:00 [facility] Influenza Virus 2020-08-24 Completed [facility] Vaccine [facility] .5 mL 00:00:00 [facility] Influenza Virus 2020-08-24 Completed [facility] Vaccine [facility] .5 mL 00:00:00 [facility] Influenza Virus 2020-08-24 Completed [facility] Vaccine [facility] .5 mL 00:00:00 [facility] Influenza Virus 2020-08-24 Completed [facility] Vaccine Quad .5 mL 00:00:00 [facility] Influenza Virus 2020-08-24 Completed [facility] Vaccine Quad .5 mL 00:00:00 [facility] Influenza Virus 2020-08-24 Completed [facility] Vaccine [facility] .5 mL 00:00:00 [facility] Influenza Virus 2020-08-24 Completed [facility] Vaccine [facility] .5 mL 00:00:00 [facility] Influenza Virus 2020-08-24 Completed [facility] Vaccine Quad .5 mL 00:00:00 [facility] Influenza Virus 2020-08-24 Completed [facility] Vaccine Quad .5 mL 00:00:00 [facility] Influenza Virus 2020-08-24 Completed [facility] Vaccine [facility] .5 mL 00:00:00 [facility] Influenza Virus 2020-08-24 Completed [facility] Vaccine Quad .5 mL 00:00:00 [facility] Influenza Virus 2020-08-24 Completed [facility] Vaccine Quad .5 mL 00:00:00 [facility] Influenza Virus 2020-08-24 Completed [facility] Vaccine Quad .5 mL 00:00:00 [facility] Influenza Virus 2020-08-24 Completed [facility] Vaccine Quad .5 mL 00:00:00 [facility] Influenza Virus 2020-08-24 Completed [facility] Vaccine Quad .5 mL 00:00:00 [facility] Influenza Virus 2020-08-24 Completed [facility] Vaccine Quad .5 mL 00:00:00 [facility] Influenza Virus 2020-08-24 Completed [facility] Vaccine Quad .5 mL 00:00:00 [facility] Influenza Virus 2020-08-24 Completed [facility] Vaccine Quad .5 mL 00:00:00 [facility] Influenza Virus 2020-08-24 Completed [facility] Vaccine Quad .5 mL 00:00:00 [facility] Influenza Virus 2020-08-24 Completed [facility] Vaccine Quad .5 mL 00:00:00 [facility] Influenza Virus 2020-08-24 Completed [facility] Vaccine Quad .5 mL 00:00:00 [facility] Influenza Virus 2020-08-24 Completed [facility] Vaccine Quad .5 mL 00:00:00 [facility] Influenza Virus 2020-08-24 Completed [facility] Vaccine Quad .5 mL 00:00:00 [facility] Influenza Virus 2020-08-24 Completed [facility] Vaccine Quad .5 mL 00:00:00 [facility] Influenza Virus 2020-08-24 Completed [facility] Vaccine Quad .5 mL 00:00:00 [facility] Influenza Virus 2020-08-24 Completed [facility] Vaccine Quad .5 mL 00:00:00 [facility] Influenza Virus 2020-08-24 Completed [facility] Vaccine Quad .5 mL 00:00:00 [facility] Influenza Virus 2020-08-24 Completed [facility] Vaccine Quad .5 mL 00:00:00 [facility] Influenza Virus 2020-08-24 Completed [facility] Vaccine Quad .5 mL 00:00:00 [facility] Influenza Virus 2020-08-24 Completed [facility] Vaccine Quad .5 mL 00:00:00 [facility] Influenza Virus 2020-08-24 Completed [facility] Vaccine Quad .5 mL 00:00:00 [facility] Influenza Virus 2020-08-24 Completed [facility] Vaccine Quad .5 mL 00:00:00 [facility] Influenza Virus 2020-08-24 Completed [facility] Vaccine Quad .5 mL 00:00:00 [facility] Influenza Virus 2020-08-24 Completed [facility] Vaccine Quad .5 mL 00:00:00 [facility] Influenza Virus 2020-08-24 Completed [facility] Vaccine Quad .5 mL 00:00:00 [facility] Influenza Virus 2020-08-24 Completed [facility] Vaccine Quad .5 mL 00:00:00 [facility] Influenza Virus 2020-08-24 Completed [facility] Vaccine Quad .5 mL 00:00:00 [facility] Influenza Virus 2020-08-24 Completed [facility] Vaccine Quad .5 mL 00:00:00 [facility] Influenza Virus 2020-08-24 Completed [facility] Vaccine Quad .5 mL 00:00:00 [facility] Influenza Virus 2020-08-24 Completed [facility] Vaccine Quad .5 mL 00:00:00 [facility] Influenza Virus 2020-08-24 Completed [facility] Vaccine Quad .5 mL 00:00:00 [facility] Influenza Virus 2020-08-24 Completed [facility] Vaccine Quad .5 mL 00:00:00 [facility] Influenza Virus 2020-08-24 Completed [facility] Vaccine Quad .5 mL 00:00:00 [facility] Influenza Virus 2020-08-24 Completed [facility] Vaccine Quad .5 mL 00:00:00 [facility] Influenza Virus 2020-08-24 Completed [facility] Vaccine Quad .5 mL 00:00:00 [facility] Influenza Virus 2020-08-24 Completed [facility] Vaccine Quad .5 mL 00:00:00 [facility] Influenza Virus 2020-08-24 Completed [facility] Vaccine Quad .5 mL 00:00:00 [facility] Influenza Virus 2020-08-24 Completed [facility] Vaccine Quad .5 mL 00:00:00 [facility] Influenza Virus 2020-08-24 Completed [facility] Vaccine Quad .5 mL 00:00:00 [facility] Influenza Virus 2020-08-24 Completed [facility] Vaccine Quad .5 mL 00:00:00 [facility] Influenza Virus 2020-08-24 Completed [facility] Vaccine Quad .5 mL 00:00:00 [facility] Influenza Virus 2020-08-24 Completed [facility] Vaccine Quad .5 mL 00:00:00 [facility] Influenza Virus 2020-08-24 Completed [facility] Vaccine Quad .5 mL 00:00:00 [facility] Influenza Virus 2020-08-24 Completed [facility] Vaccine Quad .5 mL 00:00:00 [facility] Influenza Virus 2020-08-24 Completed [facility] Vaccine Quad .5 mL 00:00:00 [facility] Influenza Virus 2020-08-24 Completed [facility] Vaccine Quad .5 mL 00:00:00 [facility] Influenza Virus 2020-08-24 Completed [facility] Vaccine Quad .5 mL 00:00:00 [facility] Influenza Virus 2020-08-24 Completed [facility] Vaccine Quad .5 mL 00:00:00 [facility] Influenza Virus 2020-08-24 Completed [facility] Vaccine Quad .5 mL 00:00:00 [facility] Influenza Virus 2020-08-24 Completed [facility] Vaccine Quad .5 mL 00:00:00 [facility] Influenza Virus 2020-08-24 Completed [facility] Vaccine Quad .5 mL 00:00:00 [facility] Influenza Virus 2020-08-24 Completed [facility] Vaccine Quad .5 mL 00:00:00 [facility] Influenza Virus 2020-08-24 Completed [facility] Vaccine Quad .5 mL 00:00:00 [facility] Influenza Virus 2020-08-24 Completed [facility] Vaccine Quad .5 mL 00:00:00 [facility] Influenza Virus 2020-08-24 Completed [facility] Vaccine Quad .5 mL 00:00:00 [facility] Influenza Virus 2020-08-24 Completed [facility] Vaccine Quad .5 mL 00:00:00 [facility] Influenza Virus 2020-08-24 Completed [facility] Vaccine Quad .5 mL 00:00:00 [facility] Influenza Virus 2020-08-24 Completed [facility] Vaccine Quad .5 mL 00:00:00 [facility] Influenza Virus 2020-08-24 Completed [facility] Vaccine Quad .5 mL 00:00:00 [facility] Influenza Virus 2020-08-24 Completed [facility] Vaccine Quad .5 mL 00:00:00 [facility] Influenza Virus 2020-08-24 Completed [facility] Vaccine Quad .5 mL 00:00:00 [facility] Influenza Virus 2020-08-24 Completed [facility] Vaccine Quad .5 mL 00:00:00 [facility] Influenza Virus 2020-08-24 Completed [facility] Vaccine Quad .5 mL 00:00:00 [facility] Influenza Virus 2020-08-24 Completed [facility] Vaccine Quad .5 mL 00:00:00 [facility] Influenza Virus 2020-08-24 Completed [facility] Vaccine Quad .5 mL 00:00:00 [facility] Influenza Virus 2020-08-24 Completed [facility] Vaccine [facility] .5 mL 00:00:00 [facility] Influenza Virus 2020-08-24 Completed [facility] Vaccine Quad .5 mL 00:00:00 [facility] Influenza Virus 2020-08-24 Completed [facility] Vaccine Quad .5 mL 00:00:00 [facility] Influenza Virus 2020-08-24 Completed [facility] Vaccine Quad .5 mL 00:00:00 [facility] Influenza Virus 2020-08-24 Completed [facility] Vaccine Quad .5 mL 00:00:00 [facility] Influenza Virus 2020-08-24 Completed [facility] Vaccine Quad .5 mL 00:00:00 [facility] Influenza Virus 2020-08-24 Completed [facility] Vaccine Quad .5 mL 00:00:00 [facility] Influenza Virus 2020-08-24 Completed [facility] Vaccine Quad .5 mL 00:00:00 [facility] Influenza Virus 2020-08-24 Completed [facility] Vaccine [facility] .5 mL 00:00:00 [facility] Influenza Virus 2020-08-24 Completed [facility] Vaccine Quad .5 mL 00:00:00 [facility] Influenza Virus 2020-08-24 Completed [facility] Vaccine Quad .5 mL 00:00:00 [facility] Influenza Virus 2020-08-24 Completed [facility] Vaccine Quad .5 mL 00:00:00 [facility] Influenza Virus 2020-08-24 Completed [facility] Vaccine [facility] .5 mL 00:00:00 [facility] Influenza Virus 2020-08-24 Completed [facility] Vaccine [facility] .5 mL 00:00:00 [facility] Influenza Virus 2020-08-24 Completed [facility] Vaccine [facility] .5 mL 00:00:00 [facility] Influenza Virus 2020-08-24 Completed [facility] Vaccine [facility] .5 mL 00:00:00 [facility] Influenza Virus 2020-08-24 Completed [facility] Vaccine [facility] .5 mL 00:00:00 [facility] Influenza Virus 2020-08-24 Completed [facility] Vaccine [facility] .5 mL 00:00:00 [facility] Influenza Virus 2020-08-24 Completed [facility] Vaccine [facility] .5 mL 00:00:00 [facility] Influenza Virus 2020-08-24 Completed [facility] Vaccine [facility] .5 mL 00:00:00 [facility] Influenza Virus 2020-08-24 Completed [facility] Vaccine [facility] .5 mL 00:00:00 [facility] Influenza Virus 2020-08-24 Completed [facility] Vaccine [facility] .5 mL 00:00:00 [facility] Influenza Virus 2020-08-24 Completed [facility] Vaccine [facility] .5 mL 00:00:00 [facility] Influenza Virus 2020-08-24 Completed [facility]ine [facility] .5 mL 00:00:00 [facility] Influenza Virus 2020-08-24 Completed [facility] Vaccine [facility] .5 mL 00:00:00 [facility] Influenza Virus 2020-08-24 Completed [facility] Vaccine [facility] .5 mL 00:00:00 [facility] Influenza Virus 2020-08-24 Completed [facility] Vaccine [facility] .5 mL 00:00:00 [facility] Influenza Virus 2020-08-24 Completed [facility] Vaccine [facility] .5 mL 00:00:00 [facility] Influenza Virus 2020-08-24 Completed [facility] .5 mL 00:00:00 [facility] Influenza Virus 2020-08-24 Completed [facility]ine [facility] .5 mL 00:00:00 [facility] Influenza Virus 2020-08-24 Completed [facility] .5 mL 00:00:00 [facility] Influenza Virus 2020-08-24 Completed [facility] Vaccine [facility] .5 mL 00:00:00 [facility] Influenza Virus 2020-08-24 Completed [facility] .5 mL 00:00:00 [facility] Influenza Virus 2020-08-24 Completed [facility] Vaccine [facility] .5 mL 00:00:00 [facility] Influenza Virus 2020-08-24 Completed [facility] Vaccine [facility] .5 mL 00:00:00 [facility] Influenza Virus 2020-08-24 Completed [facility] Vaccine [facility] .5 mL 00:00:00 [facility] Influenza Virus 2020-08-24 Completed [facility] Vacc[facility] .5 mL 00:00:00 [facility] Influenza Virus 2020-08-24 Completed [facility] Vaccine [facility] .5 mL 00:00:00 [facility] Influenza Virus 2020-08-24 Completed [facility] Vaccine [facility] .5 mL 00:00:00 [facility] Influenza Virus 2020-08-24 Completed [facility] Vaccine [facility] .5 mL 00:00:00 [facility] Influenza Virus 2020-08-24 Completed [facility] Vaccine Quad .5 mL 00:00:00 [facility] Influenza Virus 2020-08-24 Completed [facility] Vaccine [facility] .5 mL 00:00:00 [facility] Influenza Virus 2020-08-24 Completed [facility] Vaccine [facility] .5 mL 00:00:00 [facility] Influenza Virus 2020-08-24 Completed [facility] Vaccine [facility] .5 mL 00:00:00 [facility] Influenza Virus 2020-08-24 Completed [facility] Vaccine [facility] .5 mL 00:00:00 [facility] Influenza Virus 2020-08-24 Completed [facility] Vaccine [facility] .5 mL 00:00:00 [facility] Influenza Virus 2020-08-24 Completed [facility] Vaccine [facility] .5 mL 00:00:00 [facility] Influenza Virus 2020-08-24 Completed [facility] .5 mL 00:00:00 [facility] Zoster Vaccine 2020-01-01 Completed [facility] Recombinant 00:00:00 [facility] Zoster Vaccine 2020-01-01 Completed [facility] Recombinant 00:00:00 [facility] Zoster Vaccine 2020-01-01 Completed [facility] Recombinant 00:00:00 [facility] Zoster Vaccine 2020-01-01 Completed [facility] Recombinant 00:00:00 [facility] Zoster Vaccine 2020-01-01 Completed [facility] Recombinant 00:00:00 [facility] Zoster Vaccine 2020-01-01 Completed [facility] Recombinant 00:00:00 [facility] Zoster Vaccine 2020-01-01 Completed [facility] Recombinant 00:00:00 [facility] Zoster Vaccine 2020-01-01 Completed [facility] Recombinant 00:00:00 [facility] Zoster Vaccine 2020-01-01 Completed [facility] Recombinant 00:00:00 [facility] Zoster Vaccine 2020-01-01 Completed [facility] Recombinant 00:00:00 [facility] Zoster Vaccine 2020-01-01 Completed [facility] Recombinant 00:00:00 [facility] Zoster Vaccine 2020-01-01 Completed [facility] Recombinant 00:00:00 [facility] Zoster Vaccine 2020-01-01 Completed [facility] Recombinant 00:00:00 [facility] Zoster Vaccine 2020-01-01 Completed [facility] Recombinant 00:00:00 [facility] Zoster Vaccine 2020-01-01 Completed [facility] Recombinant 00:00:00 [facility] Zoster Vaccine 2020-01-01 Completed [facility] Recombinant 00:00:00 [facility] Zoster Vaccine 2020-01-01 Completed [facility] Recombinant 00:00:00 [facility] Zoster Vaccine 2020-01-01 Completed [facility] Recombinant 00:00:00 [facility] Zoster Vaccine 2020-01-01 Completed [facility] Recombinant 00:00:00 [facility] Zoster Vaccine 2020-01-01 Completed [facility] Recombinant 00:00:00 [facility] Zoster Vaccine 2020-01-01 Completed [facility] Recombinant 00:00:00 [facility] Zoster Vaccine 2020-01-01 Completed [facility] Recombinant 00:00:00 [facility] Zoster Vaccine 2020-01-01 Completed [facility] Recombinant 00:00:00 [facility] Zoster Vaccine 2020-01-01 Completed [facility] Recombinant 00:00:00 [facility] Zoster Vaccine 2020-01-01 Completed [facility] Recombinant 00:00:00 [facility] Zoster Vaccine 2020-01-01 Completed [facility] Recombinant 00:00:00 [facility] Zoster Vaccine 2020-01-01 Completed [facility] Recombinant 00:00:00 [facility] Zoster Vaccine 2020-01-01 Completed [facility] Recombinant 00:00:00 [facility] Zoster Vaccine 2020-01-01 Completed [facility] Recombinant 00:00:00 [facility] Zoster Vaccine 2020-01-01 Completed [facility] Recombinant 00:00:00 [facility] Zoster Vaccine 2020-01-01 Completed [facility] Recombinant 00:00:00 [facility] Zoster Vaccine 2020-01-01 Completed [facility] Recombinant 00:00:00 [facility] Zoster Vaccine 2020-01-01 Completed [facility] Recombinant 00:00:00 [facility] Zoster Vaccine 2020-01-01 Completed [facility] Recombinant 00:00:00 [facility] Zoster Vaccine 2020-01-01 Completed [facility] Recombinant 00:00:00 [facility] Zoster Vaccine 2020-01-01 Completed [facility] Recombinant 00:00:00 [facility] Zoster Vaccine 2020-01-01 Completed [facility] Recombinant 00:00:00 [facility] Zoster Vaccine 2020-01-01 Completed [facility] Recombinant 00:00:00 [facility] Zoster Vaccine 2020-01-01 Completed [facility] Recombinant 00:00:00 [facility] Zoster Vaccine 2020-01-01 Completed [facility] Recombinant 00:00:00 [facility] Zoster Vaccine 2020-01-01 Completed [facility] Recombinant 00:00:00 [facility] Zoster Vaccine 2020-01-01 Completed [facility] Recombinant 00:00:00 [facility] Zoster Vaccine 2020-01-01 Completed [facility] Recombinant 00:00:00 [facility] Zoster Vaccine 2020-01-01 Completed [facility] Recombinant 00:00:00 [facility] Zoster Vaccine 2020-01-01 Completed [facility] Recombinant 00:00:00 [facility] Zoster Vaccine 2020-01-01 Completed [facility] Recombinant 00:00:00 [facility] Zoster Vaccine 2020-01-01 Completed [facility] Recombinant 00:00:00 [facility] Zoster Vaccine 2020-01-01 Completed [facility] Recombinant 00:00:00 [facility] Zoster Vaccine 2020-01-01 Completed [facility] Recombinant 00:00:00 [facility] Zoster Vaccine 2020-01-01 Completed [facility] Recombinant 00:00:00 [facility] Zoster Vaccine 2020-01-01 Completed [facility] Recombinant 00:00:00 [facility] Zoster Vaccine 2020-01-01 Completed [facility] Recombinant 00:00:00 [facility] Zoster Vaccine 2020-01-01 Completed [facility] Recombinant 00:00:00 [facility] Zoster Vaccine 2020-01-01 Completed [facility] Recombinant 00:00:00 [facility] Zoster Vaccine 2020-01-01 Completed [facility] Recombinant 00:00:00 [facility] Zoster Vaccine 2020-01-01 Completed [facility] Recombinant 00:00:00 [facility] Zoster Vaccine 2020-01-01 Completed [facility] Recombinant 00:00:00 [facility] Zoster Vaccine 2020-01-01 Completed [facility] Recombinant 00:00:00 [facility] Zoster Vaccine 2020-01-01 Completed [facility] Recombinant 00:00:00 [facility] Zoster Vaccine 2020-01-01 Completed [facility] Recombinant 00:00:00 [facility] Zoster Vaccine 2020-01-01 Completed [facility] Recombinant 00:00:00 [facility] Zoster Vaccine 2020-01-01 Completed [facility] Recombinant 00:00:00 [facility] Zoster Vaccine 2020-01-01 Completed [facility] Recombinant 00:00:00 [facility] Zoster Vaccine 2020-01-01 Completed [facility] Recombinant 00:00:00 [facility] Zoster Vaccine 2020-01-01 Completed [facility] Recombinant 00:00:00 [facility] Zoster Vaccine 2020-01-01 Completed [facility] Recombinant 00:00:00 [facility] Zoster Vaccine 2020-01-01 Completed [facility] Recombinant 00:00:00 [facility] Zoster Vaccine 2020-01-01 Completed [facility] Recombinant 00:00:00 [facility] Zoster Vaccine 2020-01-01 Completed [facility] Recombinant 00:00:00 [facility] Zoster Vaccine 2020-01-01 Completed [facility] Recombinant 00:00:00 [facility] Zoster Vaccine 2020-01-01 Completed [facility] Recombinant 00:00:00 [facility] Zoster Vaccine 2020-01-01 Completed [facility] Recombinant 00:00:00 [facility] Zoster Vaccine 2020-01-01 Completed [facility] Recombinant 00:00:00 [facility] Zoster Vaccine 2020-01-01 Completed [facility] Recombinant 00:00:00 [facility] Zoster Vaccine 2020-01-01 Completed [facility] Recombinant 00:00:00 [facility] Zoster Vaccine 2020-01-01 Completed [facility] Recombinant 00:00:00 [facility] Zoster Vaccine 2020-01-01 Completed [facility] Recombinant 00:00:00 [facility] Zoster Vaccine 2020-01-01 Completed [facility] Recombinant 00:00:00 [facility] Zoster Vaccine 2020-01-01 Completed [facility] Recombinant 00:00:00 [facility] Zoster Vaccine 2020-01-01 Completed [facility] Recombinant 00:00:00 [facility] Zoster Vaccine 2020-01-01 Completed [facility] Recombinant 00:00:00 [facility] Zoster Vaccine 2020-01-01 Completed [facility] Recombinant 00:00:00 [facility] Zoster Vaccine 2020-01-01 Completed [facility] Recombinant 00:00:00 [facility] Zoster Vaccine 2020-01-01 Completed [facility] Recombinant 00:00:00 [facility] Zoster Vaccine 2020-01-01 Completed [facility] Recombinant 00:00:00 [facility] Zoster Vaccine 2020-01-01 Completed [facility] Recombinant 00:00:00 [facility] Zoster Vaccine 2020-01-01 Completed [facility] Recombinant 00:00:00 [facility] Zoster Vaccine 2020-01-01 Completed [facility] Recombinant 00:00:00 [facility] Zoster Vaccine 2020-01-01 Completed [facility] Recombinant 00:00:00 [facility] Zoster Vaccine 2020-01-01 Completed [facility] Recombinant 00:00:00 [facility] Zoster Vaccine 2020-01-01 Completed [facility] Recombinant 00:00:00 [facility] Zoster Vaccine 2020-01-01 Completed [facility] Recombinant 00:00:00 [facility] Zoster Vaccine 2020-01-01 Completed [facility] Recombinant 00:00:00 [facility] Zoster Vaccine 2020-01-01 Completed [facility] Recombinant 00:00:00 [facility] Zoster Vaccine 2020-01-01 Completed [facility] Recombinant 00:00:00 [facility] Zoster Vaccine 2020-01-01 Completed [facility] Recombinant 00:00:00 [facility] Zoster Vaccine 2020-01-01 Completed [facility] Recombinant 00:00:00 [facility] Zoster Vaccine 2020-01-01 Completed [facility] Recombinant 00:00:00 [facility] Zoster Vaccine 2020-01-01 Completed [facility] Recombinant 00:00:00 [facility] Zoster Vaccine 2020-01-01 Completed [facility] Recombinant 00:00:00 [facility] Zoster Vaccine 2020-01-01 Completed [facility] Recombinant 00:00:00 [facility] Zoster Vaccine 2020-01-01 Completed [facility] Recombinant 00:00:00 [facility] Zoster Vaccine 2020-01-01 Completed [facility] Recombinant 00:00:00 [facility] Zoster Vaccine 2020-01-01 Completed [facility] Recombinant 00:00:00 [facility] Zoster Vaccine 2020-01-01 Completed [facility] Recombinant 00:00:00 [facility] Zoster Vaccine 2020-01-01 Completed [facility] Recombinant 00:00:00 [facility] Zoster Vaccine 2020-01-01 Completed [facility] Recombinant 00:00:00 [facility] Zoster Vaccine 2020-01-01 Completed [facility] Recombinant 00:00:00 [facility] Zoster Vaccine 2020-01-01 Completed [facility] Recombinant 00:00:00 [facility] Zoster Vaccine 2020-01-01 Completed [facility] Recombinant 00:00:00 [facility] Zoster Vaccine 2020-01-01 Completed [facility] Recombinant 00:00:00 [facility] Zoster Vaccine 2020-01-01 Completed [facility] Recombinant 00:00:00 [facility] Zoster Vaccine 2020-01-01 Completed [facility] Recombinant 00:00:00 [facility] Zoster Vaccine 2020-01-01 Completed [facility] Recombinant 00:00:00 [facility] Zoster Vaccine 2020-01-01 Completed [facility] Recombinant 00:00:00 [facility] Zoster Vaccine 2020-01-01 Completed [facility] Recombinant 00:00:00 [facility] Zoster Vaccine 2020-01-01 Completed [facility] Recombinant 00:00:00 [facility] Zoster Vaccine 2020-01-01 Completed [facility] Recombinant 00:00:00 [facility] Zoster Vaccine 2020-01-01 Completed [facility] Recombinant 00:00:00 [facility] Zoster Vaccine 2020-01-01 Completed [facility] Recombinant 00:00:00 [facility] Zoster Vaccine 2020-01-01 Completed [facility] Recombinant 00:00:00 [facility] Zoster Vaccine 2020-01-01 Completed [facility] Recombinant 00:00:00 [facility] Zoster Vaccine 2020-01-01 Completed [facility] Recombinant 00:00:00 [facility] Zoster Vaccine 2020-01-01 Completed [facility] Recombinant 00:00:00 [facility] Zoster Vaccine 2020-01-01 Completed [facility] Recombinant 00:00:00 [facility] Zoster Vaccine 2020-01-01 Completed [facility] Recombinant 00:00:00 [facility] Zoster Vaccine 2020-01-01 Completed [facility] Recombinant 00:00:00 [facility] Zoster Vaccine 2020-01-01 Completed [facility] Recombinant 00:00:00 [facility] Zoster Vaccine 2020-01-01 Completed [facility] Recombinant 00:00:00 [facility] Influenza Virus 2019-09-19 Completed [facility] .5 mL 00:00:00 [facility] Influenza Virus 2019-09-19 Completed [facility] Vaccine [facility] .5 mL 00:00:00 [facility] Influenza Virus 2019-09-19 Completed [facility] Vaccine [facility] .5 mL 00:00:00 [facility] Influenza Virus 2019-09-19 Completed [facility] Vaccine [facility] .5 mL 00:00:00 [facility] Influenza Virus 2019-09-19 Completed [facility] Vaccine [facility] .5 mL 00:00:00 [facility] Influenza Virus 2019-09-19 Completed [facility] Vaccine [facility] .5 mL 00:00:00 [facility] Influenza Virus 2019-09-19 Completed [facility] Vaccine [facility] .5 mL 00:00:00 [facility] Influenza Virus 2019-09-19 Completed [facility] Vaccine [facility] .5 mL 00:00:00 [facility] Influenza Virus 2019-09-19 Completed [facility] Vaccine [facility] .5 mL 00:00:00 [facility] Influenza Virus 2019-09-19 Completed [facility] Vaccine Quad .5 mL 00:00:00 [facility] Influenza Virus 2019-09-19 Completed [facility] Vaccine Quad .5 mL 00:00:00 [facility] Influenza Virus 2019-09-19 Completed [facility] Vaccine Quad .5 mL 00:00:00 [facility] Influenza Virus 2019-09-19 Completed [facility] Vaccine [facility] .5 mL 00:00:00 [facility] Influenza Virus 2019-09-19 Completed [facility] Vaccine [facility] .5 mL 00:00:00 [facility] Influenza Virus 2019-09-19 Completed [facility] Vaccine [facility] .5 mL 00:00:00 [facility] Influenza Virus 2019-09-19 Completed [facility] Vaccine [facility] .5 mL 00:00:00 [facility] Influenza Virus 2019-09-19 Completed [facility] Vaccine Quad .5 mL 00:00:00 [facility] Influenza Virus 2019-09-19 Completed [facility] Vaccine Quad .5 mL 00:00:00 [facility] Influenza Virus 2019-09-19 Completed [facility] Vaccine [facility] .5 mL 00:00:00 [facility] Influenza Virus 2019-09-19 Completed [facility] Vaccine [facility] .5 mL 00:00:00 [facility] Influenza Virus 2019-09-19 Completed [facility] Vaccine [facility] .5 mL 00:00:00 [facility] Influenza Virus 2019-09-19 Completed [facility] Vaccine [facility] .5 mL 00:00:00 [facility] Influenza Virus 2019-09-19 Completed [facility] Vaccine [facility] .5 mL 00:00:00 [facility] Influenza Virus 2019-09-19 Completed [facility] Vaccine [facility] .5 mL 00:00:00 [facility] Influenza Virus 2019-09-19 Completed [facility] Vaccine [facility] .5 mL 00:00:00 [facility] Influenza Virus 2019-09-19 Completed [facility] Vaccine [facility] .5 mL 00:00:00 [facility] Influenza Virus 2019-09-19 Completed [facility] Vaccine [facility] .5 mL 00:00:00 [facility] Influenza Virus 2019-09-19 Completed [facility] Vaccine [facility] .5 mL 00:00:00 [facility] Influenza Virus 2019-09-19 Completed [facility] Vaccine Quad .5 mL 00:00:00 [facility] Influenza Virus 2019-09-19 Completed [facility] Vaccine Quad .5 mL 00:00:00 [facility] Influenza Virus 2019-09-19 Completed [facility] Vaccine Quad .5 mL 00:00:00 [facility] Influenza Virus 2019-09-19 Completed [facility] Vaccine Quad .5 mL 00:00:00 [facility] Influenza Virus 2019-09-19 Completed [facility] Vaccine Quad .5 mL 00:00:00 [facility] Influenza Virus 2019-09-19 Completed [facility] Vaccine Quad .5 mL 00:00:00 [facility] Influenza Virus 2019-09-19 Completed [facility] Vaccine Quad .5 mL 00:00:00 [facility] Influenza Virus 2019-09-19 Completed [facility] Vaccine [facility] .5 mL 00:00:00 [facility] Influenza Virus 2019-09-19 Completed [facility] Vaccine Quad .5 mL 00:00:00 [facility] Influenza Virus 2019-09-19 Completed [facility] Vaccine Quad .5 mL 00:00:00 [facility] Influenza Virus 2019-09-19 Completed [facility] Vaccine Quad .5 mL 00:00:00 [facility] Influenza Virus 2019-09-19 Completed [facility] Vaccine Quad .5 mL 00:00:00 [facility] Influenza Virus 2019-09-19 Completed [facility] Vaccine Quad .5 mL 00:00:00 [facility] Influenza Virus 2019-09-19 Completed [facility] Vaccine Quad .5 mL 00:00:00 [facility] Influenza Virus 2019-09-19 Completed [facility] Vaccine Quad .5 mL 00:00:00 [facility] Influenza Virus 2019-09-19 Completed [facility] Vaccine Quad .5 mL 00:00:00 [facility] Influenza Virus 2019-09-19 Completed [facility] Vaccine Quad .5 mL 00:00:00 [facility] Influenza Virus 2019-09-19 Completed [facility] Vaccine Quad .5 mL 00:00:00 [facility] Influenza Virus 2019-09-19 Completed [facility] Vaccine Quad .5 mL 00:00:00 [facility] Influenza Virus 2019-09-19 Completed [facility] Vaccine Quad .5 mL 00:00:00 [facility] Influenza Virus 2019-09-19 Completed [facility] Vaccine Quad .5 mL 00:00:00 [facility] Influenza Virus 2019-09-19 Completed [facility] Vaccine Quad .5 mL 00:00:00 [facility] Influenza Virus 2019-09-19 Completed [facility] Vaccine Quad .5 mL 00:00:00 [facility] Influenza Virus 2019-09-19 Completed [facility] Vaccine Quad .5 mL 00:00:00 [facility] Influenza Virus 2019-09-19 Completed [facility] Vaccine Quad .5 mL 00:00:00 [facility] Influenza Virus 2019-09-19 Completed [facility] Vaccine Quad .5 mL 00:00:00 [facility] Influenza Virus 2019-09-19 Completed [facility] Vaccine Quad .5 mL 00:00:00 [facility] Influenza Virus 2019-09-19 Completed [facility] Vaccine Quad .5 mL 00:00:00 [facility] Influenza Virus 2019-09-19 Completed [facility] Vaccine Quad .5 mL 00:00:00 [facility] Influenza Virus 2019-09-19 Completed [facility] Vaccine Quad .5 mL 00:00:00 [facility] Influenza Virus 2019-09-19 Completed [facility] Vaccine Quad .5 mL 00:00:00 [facility] Influenza Virus 2019-09-19 Completed [facility] Vaccine Quad .5 mL 00:00:00 [facility] Influenza Virus 2019-09-19 Completed [facility] Vaccine Quad .5 mL 00:00:00 [facility] Influenza Virus 2019-09-19 Completed [facility] Vaccine Quad .5 mL 00:00:00 [facility] Influenza Virus 2019-09-19 Completed [facility] Vaccine Quad .5 mL 00:00:00 [facility] Influenza Virus 2019-09-19 Completed [facility] Vaccine Quad .5 mL 00:00:00 [facility] Influenza Virus 2019-09-19 Completed [facility] Vaccine Quad .5 mL 00:00:00 [facility] Influenza Virus 2019-09-19 Completed [facility] Vaccine Quad .5 mL 00:00:00 [facility] Influenza Virus 2019-09-19 Completed [facility] Vaccine Quad .5 mL 00:00:00 [facility] Influenza Virus 2019-09-19 Completed [facility] Vaccine Quad .5 mL 00:00:00 [facility] Influenza Virus 2019-09-19 Completed [facility] Vaccine Quad .5 mL 00:00:00 [facility] Influenza Virus 2019-09-19 Completed [facility] Vaccine Quad .5 mL 00:00:00 [facility] Influenza Virus 2019-09-19 Completed [facility] Vaccine Quad .5 mL 00:00:00 [facility] Influenza Virus 2019-09-19 Completed [facility] Vaccine Quad .5 mL 00:00:00 [facility] Influenza Virus 2019-09-19 Completed [facility] Vaccine Quad .5 mL 00:00:00 [facility] Influenza Virus 2019-09-19 Completed [facility] Vaccine Quad .5 mL 00:00:00 [facility] Influenza Virus 2019-09-19 Completed [facility] Vaccine Quad .5 mL 00:00:00 [facility] Influenza Virus 2019-09-19 Completed [facility] Vaccine Quad .5 mL 00:00:00 [facility] Influenza Virus 2019-09-19 Completed [facility] Vaccine Quad .5 mL 00:00:00 [facility] Influenza Virus 2019-09-19 Completed [facility] Vaccine Quad .5 mL 00:00:00 [facility] Influenza Virus 2019-09-19 Completed [facility] Vaccine Quad .5 mL 00:00:00 [facility] Influenza Virus 2019-09-19 Completed [facility] Vaccine Quad .5 mL 00:00:00 [facility] Influenza Virus 2019-09-19 Completed [facility] Vaccine Quad .5 mL 00:00:00 [facility] Influenza Virus 2019-09-19 Completed [facility] Vaccine Quad .5 mL 00:00:00 [facility] Influenza Virus 2019-09-19 Completed [facility] Vaccine Quad .5 mL 00:00:00 [facility] Influenza Virus 2019-09-19 Completed [facility] Vaccine Quad .5 mL 00:00:00 [facility] Influenza Virus 2019-09-19 Completed [facility] Vaccine Quad .5 mL 00:00:00 [facility] Influenza Virus 2019-09-19 Completed [facility] Vaccine Quad .5 mL 00:00:00 [facility] Influenza Virus 2019-09-19 Completed [facility] Vaccine Quad .5 mL 00:00:00 [facility] Influenza Virus 2019-09-19 Completed [facility] Vaccine Quad .5 mL 00:00:00 [facility] Influenza Virus 2019-09-19 Completed [facility] Vaccine Quad .5 mL 00:00:00 [facility] Influenza Virus 2019-09-19 Completed [facility] Vaccine Quad .5 mL 00:00:00 [facility] Influenza Virus 2019-09-19 Completed [facility] Vaccine Quad .5 mL 00:00:00 [facility] Influenza Virus 2019-09-19 Completed [facility] Vaccine Quad .5 mL 00:00:00 [facility] Influenza Virus 2019-09-19 Completed [facility] Vaccine Quad .5 mL 00:00:00 [facility] Influenza Virus 2019-09-19 Completed [facility] Vaccine Quad .5 mL 00:00:00 [facility] Influenza Virus 2019-09-19 Completed [facility] Vaccine Quad .5 mL 00:00:00 [facility] Influenza Virus 2019-09-19 Completed [facility] Vaccine Quad .5 mL 00:00:00 [facility] Influenza Virus 2019-09-19 Completed [facility] Vaccine Quad .5 mL 00:00:00 [facility] Influenza Virus 2019-09-19 Completed [facility] Vaccine Quad .5 mL 00:00:00 [facility] Influenza Virus 2019-09-19 Completed [facility] Vaccine Quad .5 mL 00:00:00 [facility] Influenza Virus 2019-09-19 Completed [facility] Vaccine Quad .5 mL 00:00:00 [facility] Influenza Virus 2019-09-19 Completed [facility] Vaccine Quad .5 mL 00:00:00 [facility] Influenza Virus 2019-09-19 Completed [facility] Vaccine Quad .5 mL 00:00:00 [facility] Influenza Virus 2019-09-19 Completed [facility] Vaccine Quad .5 mL 00:00:00 [facility] Influenza Virus 2019-09-19 Completed [facility] Vaccine Quad .5 mL 00:00:00 [facility] Influenza Virus 2019-09-19 Completed [facility] Vaccine Quad .5 mL 00:00:00 [facility] Influenza Virus 2019-09-19 Completed [facility] Vaccine [facility] .5 mL 00:00:00 [facility] Influenza Virus 2019-09-19 Completed [facility] Vaccine Quad .5 mL 00:00:00 [facility] Influenza Virus 2019-09-19 Completed [facility] Vaccine [facility] .5 mL 00:00:00 [facility] Influenza Virus 2019-09-19 Completed [facility] Vaccine [facility] .5 mL 00:00:00 [facility] Influenza Virus 2019-09-19 Completed [facility] Vaccine [facility] .5 mL 00:00:00 [facility] Influenza Virus 2019-09-19 Completed [facility] Vaccine Quad .5 mL 00:00:00 [facility] Influenza Virus 2019-09-19 Completed [facility] Vaccine [facility] .5 mL 00:00:00 [facility] Influenza Virus 2019-09-19 Completed [facility] Vaccine [facility] .5 mL 00:00:00 [facility] Influenza Virus 2019-09-19 Completed [facility] Vaccine [facility] .5 mL 00:00:00 [facility] Influenza Virus 2019-09-19 Completed [facility] Vaccine [facility] .5 mL 00:00:00 [facility] Influenza Virus 2019-09-19 Completed [facility] 00:00:00 [facility] Influenza Virus 2019-09-19 Completed [facility] .5 [facility] 00:00:00 [facility] Influenza Virus 2019-09-19 Completed [facility] .5 mL 00:00:00 [facility] Influenza Virus 2019-09-19 Completed [facility] .5 mL 00:00:00 [facility] Influenza Virus 2019-09-19 Completed [facility] .5 mL 00:00:00 [facility] Influenza Virus 2019-09-19 Completed [facility] .5 mL 00:00:00 [facility] Influenza Virus 2019-09-19 Completed [facility] .5 mL 00:00:00 [facility] Influenza Virus 2019-09-19 Completed [facility] .5 mL 00:00:00 [facility] Influenza Virus 2019-09-19 Completed [facility] .5 mL 00:00:00 [facility] Influenza Virus 2019-09-19 Completed [facility] .5 mL 00:00:00 [facility] Influenza Virus 2019-09-19 Completed [facility] .5 mL 00:00:00 [facility] Influenza Virus 2019-09-19 Completed [facility] .5 mL 00:00:00 [facility] Influenza Virus 2019-09-19 Completed [facility] .5 mL 00:00:00 [facility] Influenza Virus 2019-09-19 Completed [facility] .5 mL 00:00:00 [facility] Zoster Vaccine 2019-07-13 Completed [facility] Recombinant 00:00:00 [facility] Zoster Vaccine 2019-07-13 Completed [facility] Recombinant 00:00:00 [facility] Zoster Vaccine 2019-07-13 Completed [facility] Recombinant 00:00:00 [facility] Zoster Vaccine 2019-07-13 Completed [facility] Recombinant 00:00:00 [facility] Zoster Vaccine 2019-07-13 Completed [facility] Recombinant 00:00:00 [facility] Zoster Vaccine 2019-07-13 Completed [facility] Recombinant 00:00:00 [facility] Zoster Vaccine 2019-07-13 Completed [facility] Recombinant 00:00:00 [facility] Zoster Vaccine 2019-07-13 Completed [facility] Recombinant 00:00:00 [facility] Zoster Vaccine 2019-07-13 Completed [facility] Recombinant 00:00:00 [facility] Zoster Vaccine 2019-07-13 Completed [facility] Recombinant 00:00:00 [facility] Zoster Vaccine 2019-07-13 Completed [facility] Recombinant 00:00:00 [facility] Zoster Vaccine 2019-07-13 Completed [facility] Recombinant 00:00:00 [facility] Zoster Vaccine 2019-07-13 Completed [facility] Recombinant 00:00:00 [facility] Zoster Vaccine 2019-07-13 Completed [facility] Recombinant 00:00:00 [facility] Zoster Vaccine 2019-07-13 Completed [facility] Recombinant 00:00:00 [facility] Zoster Vaccine 2019-07-13 Completed [facility] Recombinant 00:00:00 [facility] Zoster Vaccine 2019-07-13 Completed [facility] Recombinant 00:00:00 [facility] Zoster Vaccine 2019-07-13 Completed [facility] Recombinant 00:00:00 [facility] Zoster Vaccine 2019-07-13 Completed [facility] Recombinant 00:00:00 [facility] Zoster Vaccine 2019-07-13 Completed [facility] Recombinant 00:00:00 [facility] Zoster Vaccine 2019-07-13 Completed [facility] Recombinant 00:00:00 [facility] Zoster Vaccine 2019-07-13 Completed [facility] Recombinant 00:00:00 [facility] Zoster Vaccine 2019-07-13 Completed [facility] Recombinant 00:00:00 [facility] Zoster Vaccine 2019-07-13 Completed [facility] Recombinant 00:00:00 [facility] Zoster Vaccine 2019-07-13 Completed [facility] Recombinant 00:00:00 [facility] Zoster Vaccine 2019-07-13 Completed [facility] Recombinant 00:00:00 [facility] Zoster Vaccine 2019-07-13 Completed [facility] Recombinant 00:00:00 [facility] Zoster Vaccine 2019-07-13 Completed [facility] Recombinant 00:00:00 [facility] Zoster Vaccine 2019-07-13 Completed [facility] Recombinant 00:00:00 [facility] Zoster Vaccine 2019-07-13 Completed [facility] Recombinant 00:00:00 [facility] Zoster Vaccine 2019-07-13 Completed [facility] Recombinant 00:00:00 [facility] Zoster Vaccine 2019-07-13 Completed [facility] Recombinant 00:00:00 [facility] Zoster Vaccine 2019-07-13 Completed [facility] Recombinant 00:00:00 [facility] Zoster Vaccine 2019-07-13 Completed [facility] Recombinant 00:00:00 [facility] Zoster Vaccine 2019-07-13 Completed [facility] Recombinant 00:00:00 [facility] Zoster Vaccine 2019-07-13 Completed [facility] Recombinant 00:00:00 [facility] Zoster Vaccine 2019-07-13 Completed [facility]combinant 00:00:00 [facility] Zoster Vaccine 2019-07-13 Completed [facility] Recombinant 00:00:00 [facility] Zoster Vaccine 2019-07-13 Completed [facility] Recombinant 00:00:00 [facility] Zoster Vaccine 2019-07-13 Completed [facility] Recombinant 00:00:00 [facility] Zoster Vaccine 2019-07-13 Completed [facility] Recombinant 00:00:00 [facility] Zoster Vaccine 2019-07-13 Completed [facility] Recombinant 00:00:00 [facility] Zoster Vaccine 2019-07-13 Completed [facility] Recombinant 00:00:00 [facility] Zoster Vaccine 2019-07-13 Completed [facility] Recombinant 00:00:00 [facility] Zoster Vaccine 2019-07-13 Completed [facility] Recombinant 00:00:00 [facility] Zoster Vaccine 2019-07-13 Completed [facility] Recombinant 00:00:00 [facility] Zoster Vaccine 2019-07-13 Completed [facility] Recombinant 00:00:00 [facility] Zoster Vaccine 2019-07-13 Completed [facility] Recombinant 00:00:00 [facility] Zoster Vaccine 2019-07-13 Completed [facility] Recombinant 00:00:00 [facility] Zoster Vaccine 2019-07-13 Completed [facility] Recombinant 00:00:00 [facility] Zoster Vaccine 2019-07-13 Completed [facility] Recombinant 00:00:00 [facility] Zoster Vaccine 2019-07-13 Completed [facility] Recombinant 00:00:00 [facility] Zoster Vaccine 2019-07-13 Completed [facility] Recombinant 00:00:00 [facility] Zoster Vaccine 2019-07-13 Completed [facility] Recombinant 00:00:00 [facility] Zoster Vaccine 2019-07-13 Completed [facility] Recombinant 00:00:00 [facility] Zoster Vaccine 2019-07-13 Completed [facility] Recombinant 00:00:00 [facility] Zoster Vaccine 2019-07-13 Completed [facility] Recombinant 00:00:00 [facility] Zoster Vaccine 2019-07-13 Completed [facility] Recombinant 00:00:00 [facility] Zoster Vaccine 2019-07-13 Completed [facility] Recombinant 00:00:00 [facility] Zoster Vaccine 2019-07-13 Completed [facility] Recombinant 00:00:00 [facility] Zoster Vaccine 2019-07-13 Completed [facility] Recombinant 00:00:00 [facility] Zoster Vaccine 2019-07-13 Completed [facility] Recombinant 00:00:00 [facility] Zoster Vaccine 2019-07-13 Completed [facility] Recombinant 00:00:00 [facility] Zoster Vaccine 2019-07-13 Completed [facility] Recombinant 00:00:00 [facility] Zoster Vaccine 2019-07-13 Completed [facility] Recombinant 00:00:00 [facility] Zoster Vaccine 2019-07-13 Completed [facility] Recombinant 00:00:00 [facility] Zoster Vaccine 2019-07-13 Completed [facility] Recombinant 00:00:00 [facility] Zoster Vaccine 2019-07-13 Completed [facility] Recombinant 00:00:00 [facility] Zoster Vaccine 2019-07-13 Completed [facility] Recombinant 00:00:00 [facility] Zoster Vaccine 2019-07-13 Completed [facility] Recombinant 00:00:00 [facility] Zoster Vaccine 2019-07-13 Completed [facility] Recombinant 00:00:00 [facility] Zoster Vaccine 2019-07-13 Completed [facility] Recombinant 00:00:00 [facility] Zoster Vaccine 2019-07-13 Completed [facility] Recombinant 00:00:00 [facility] Zoster Vaccine 2019-07-13 Completed [facility] Recombinant 00:00:00 [facility] Zoster Vaccine 2019-07-13 Completed [facility] Recombinant 00:00:00 [facility] Zoster Vaccine 2019-07-13 Completed [facility] Recombinant 00:00:00 [facility] Zoster Vaccine 2019-07-13 Completed [facility] Recombinant 00:00:00 [facility] Zoster Vaccine 2019-07-13 Completed [facility] Recombinant 00:00:00 [facility] Zoster Vaccine 2019-07-13 Completed [facility] Recombinant 00:00:00 [facility] Zoster Vaccine 2019-07-13 Completed [facility] Recombinant 00:00:00 [facility] Zoster Vaccine 2019-07-13 Completed [facility] Recombinant 00:00:00 [facility] Zoster Vaccine 2019-07-13 Completed [facility] Recombinant 00:00:00 [facility] Zoster Vaccine 2019-07-13 Completed [facility] Recombinant 00:00:00 [facility] Zoster Vaccine 2019-07-13 Completed [facility] Recombinant 00:00:00 [facility] Zoster Vaccine 2019-07-13 Completed [facility] Recombinant 00:00:00 [facility] Zoster Vaccine 2019-07-13 Completed [facility] Recombinant 00:00:00 [facility] Zoster Vaccine 2019-07-13 Completed [facility] Recombinant 00:00:00 [facility] Zoster Vaccine 2019-07-13 Completed [facility] Recombinant 00:00:00 [facility] Zoster Vaccine 2019-07-13 Completed [facility] Recombinant 00:00:00 [facility] Zoster Vaccine 2019-07-13 Completed [facility] Recombinant 00:00:00 [facility] Zoster Vaccine 2019-07-13 Completed [facility] Recombinant 00:00:00 [facility] Zoster Vaccine 2019-07-13 Completed [facility] Recombinant 00:00:00 [facility] Zoster Vaccine 2019-07-13 Completed [facility] Recombinant 00:00:00 [facility] Zoster Vaccine 2019-07-13 Completed [facility] Recombinant 00:00:00 [facility] Zoster Vaccine 2019-07-13 Completed [facility] Recombinant 00:00:00 [facility] Zoster Vaccine 2019-07-13 Completed [facility] Recombinant 00:00:00 [facility] Zoster Vaccine 2019-07-13 Completed [facility] Recombinant 00:00:00 [facility] Zoster Vaccine 2019-07-13 Completed [facility] Recombinant 00:00:00 [facility] Zoster Vaccine 2019-07-13 Completed [facility] Recombinant 00:00:00 [facility] Zoster Vaccine 2019-07-13 Completed [facility] Recombinant 00:00:00 [facility] Zoster Vaccine 2019-07-13 Completed [facility] Recombinant 00:00:00 [facility] Zoster Vaccine 2019-07-13 Completed [facility] Recombinant 00:00:00 [facility] Zoster Vaccine 2019-07-13 Completed [facility] Recombinant 00:00:00 [facility] Zoster Vaccine 2019-07-13 Completed [facility] Recombinant 00:00:00 [facility] Zoster Vaccine 2019-07-13 Completed [facility] Recombinant 00:00:00 [facility] Zoster Vaccine 2019-07-13 Completed [facility] Recombinant 00:00:00 [facility] Zoster Vaccine 2019-07-13 Completed [facility] Recombinant 00:00:00 [facility] Zoster Vaccine 2019-07-13 Completed [facility] Recombinant 00:00:00 [facility] Zoster Vaccine 2019-07-13 Completed [facility] Recombinant 00:00:00 [facility] Zoster Vaccine 2019-07-13 Completed [facility] Recombinant 00:00:00 [facility] Zoster Vaccine 2019-07-13 Completed [facility] Recombinant 00:00:00 [facility] Zoster Vaccine 2019-07-13 Completed [facility] Recombinant 00:00:00 [facility] Zoster Vaccine 2019-07-13 Completed [facility] Recombinant 00:00:00 [facility] Zoster Vaccine 2019-07-13 Completed [facility] Recombinant 00:00:00 [facility] Zoster Vaccine 2019-07-13 Completed [facility] Recombinant 00:00:00 [facility] Zoster Vaccine 2019-07-13 Completed [facility] Recombinant 00:00:00 [facility] Zoster Vaccine 2019-07-13 Completed [facility] Recombinant 00:00:00 [facility] Zoster Vaccine 2019-07-13 Completed [facility] Recombinant 00:00:00 [facility] Zoster Vaccine 2019-07-13 Completed [facility] Recombinant 00:00:00 [facility] Zoster Vaccine 2019-07-13 Completed [facility] Recombinant 00:00:00 [facility] Zoster Vaccine 2019-07-13 Completed [facility] Recombinant 00:00:00 [facility] Zoster Vaccine 2019-07-13 Completed [facility] Recombinant 00:00:00 [facility] Zoster Vaccine 2019-07-13 Completed [facility] Recombinant 00:00:00 [facility] Zoster Vaccine 2019-07-13 Completed [facility] Recombinant 00:00:00 [facility] Zoster Vaccine 2019-07-13 Completed [facility] Recombinant 00:00:00 [facility] Zoster Vaccine 2019-07-13 Completed [facility] Recombinant 00:00:00 [facility] Zoster Vaccine 2019-07-13 Completed [facility] Recombinant 00:00:00 [facility] Zoster Vaccine 2019-07-13 Completed [facility] Recombinant 00:00:00 [facility] Zoster Vaccine 2019-07-13 Completed [facility] Recombinant 00:00:00 [facility] TDAP (ADACEL) 2019-05-31 Completed [facility] VACCINE 00:00:00 [facility] TDAP (ADACEL) 2019-05-31 Completed [facility] VACCINE 00:00:00 [facility] TDAP (ADACEL) 2019-05-31 Completed [facility] VACCINE 00:00:00 [facility] TDAP (ADACEL) 2019-05-31 Completed [facility] VACCINE 00:00:00 [facility] TDAP (ADACEL) 2019-05-31 Completed [facility] VACCINE 00:00:00 [facility] TDAP (ADACEL) 2019-05-31 Completed [facility] VACCINE 00:00:00 [facility] TDAP (ADACEL) 2019-05-31 Completed [facility] VACCINE 00:00:00 [facility] TDAP (ADACEL) 2019-05-31 Completed [facility] VACCINE 00:00:00 [facility] TDAP (ADACEL) 2019-05-31 Completed [facility] VACCINE 00:00:00 [facility] TDAP (ADACEL) 2019-05-31 Completed [facility] VACCINE 00:00:00 [facility] TDAP (ADACEL) 2019-05-31 Completed [facility] VACCINE 00:00:00 [facility] TDAP (ADACEL) 2019-05-31 Completed [facility] VACCINE 00:00:00 [facility] TDAP (ADACEL) 2019-05-31 Completed [facility] VACCINE 00:00:00 [facility] TDAP (ADACEL) 2019-05-31 Completed [facility] VACCINE 00:00:00 [facility] TDAP (ADACEL) 2019-05-31 Completed [facility] VACCINE 00:00:00 [facility] TDAP (ADACEL) 2019-05-31 Completed [facility] VACCINE 00:00:00 [facility] TDAP (ADACEL) 2019-05-31 Completed [facility] VACCINE 00:00:00 [facility] TDAP (ADACEL) 2019-05-31 Completed [facility] VACCINE 00:00:00 [facility] TDAP (ADACEL) 2019-05-31 Completed [facility] VACCINE 00:00:00 [facility] TDAP (ADACEL) 2019-05-31 Completed [facility] VACCINE 00:00:00 [facility] TDAP (ADACEL) 2019-05-31 Completed [facility] VACCINE 00:00:00 [facility] TDAP (ADACEL) 2019-05-31 Completed [facility] VACCINE 00:00:00 [facility] TDAP (ADACEL) 2019-05-31 Completed [facility] VACCINE 00:00:00 [facility] TDAP (ADACEL) 2019-05-31 Completed [facility] VACCINE 00:00:00 [facility] TDAP (ADACEL) 2019-05-31 Completed [facility] VACCINE 00:00:00 [facility] TDAP (ADACEL) 2019-05-31 Completed [facility] VACCINE 00:00:00 [facility] TDAP (ADACEL) 2019-05-31 Completed [facility] VACCINE 00:00:00 [facility] TDAP (ADACEL) 2019-05-31 Completed [facility] VACCINE 00:00:00 [facility] TDAP (ADACEL) 2019-05-31 Completed [facility] VACCINE 00:00:00 [facility] TDAP (ADACEL) 2019-05-31 Completed [facility] VACCINE 00:00:00 [facility] TDAP (ADACEL) 2019-05-31 Completed [facility] VACCINE 00:00:00 [facility] TDAP (ADACEL) 2019-05-31 Completed [facility] VACCINE 00:00:00 [facility] TDAP (ADACEL) 2019-05-31 Completed [facility] VACCINE 00:00:00 [facility] TDAP (ADACEL) 2019-05-31 Completed [facility] VACCINE 00:00:00 [facility] TDAP (ADACEL) 2019-05-31 Completed [facility] VACCINE 00:00:00 [facility] TDAP (ADACEL) 2019-05-31 Completed [facility] VACCINE 00:00:00 [facility] TDAP (ADACEL) 2019-05-31 Completed [facility] VACCINE 00:00:00 [facility] TDAP (ADACEL) 2019-05-31 Completed [facility] VACCINE 00:00:00 [facility] TDAP (ADACEL) 2019-05-31 Completed [facility] VACCINE 00:00:00 [facility] TDAP (ADACEL) 2019-05-31 Completed [facility] VACCINE 00:00:00 [facility] TDAP (ADACEL) 2019-05-31 Completed [facility] VACCINE 00:00:00 [facility] TDAP (ADACEL) 2019-05-31 Completed [facility] VACCINE 00:00:00 [facility] TDAP (ADACEL) 2019-05-31 Completed [facility] VACCINE 00:00:00 [facility] TDAP (ADACEL) 2019-05-31 Completed [facility] VACCINE 00:00:00 [facility] TDAP (ADACEL) 2019-05-31 Completed [facility] VACCINE 00:00:00 [facility] TDAP (ADACEL) 2019-05-31 Completed [facility] VACCINE 00:00:00 [facility] TDAP (ADACEL) 2019-05-31 Completed [facility] VACCINE 00:00:00 [facility] TDAP (ADACEL) 2019-05-31 Completed [facility] VACCINE 00:00:00 [facility] TDAP (ADACEL) 2019-05-31 Completed [facility] VACCINE 00:00:00 [facility] TDAP (ADACEL) 2019-05-31 Completed [facility] VACCINE 00:00:00 [facility] TDAP (ADACEL) 2019-05-31 Completed [facility] VACCINE 00:00:00 [facility] TDAP (ADACEL) 2019-05-31 Completed [facility] VACCINE 00:00:00 [facility] TDAP (ADACEL) 2019-05-31 Completed [facility] VACCINE 00:00:00 [facility] TDAP (ADACEL) 2019-05-31 Completed [facility] VACCINE 00:00:00 [facility] TDAP (ADACEL) 2019-05-31 Completed [facility] VACCINE 00:00:00 [facility] TDAP (ADACEL) 2019-05-31 Completed [facility] VACCINE 00:00:00 [facility] TDAP (ADACEL) 2019-05-31 Completed [facility] VACCINE 00:00:00 [facility] TDAP (ADACEL) 2019-05-31 Completed [facility] VACCINE 00:00:00 [facility] TDAP (ADACEL) 2019-05-31 Completed [facility] VACCINE 00:00:00 [facility] TDAP (ADACEL) 2019-05-31 Completed [facility] VACCINE 00:00:00 [facility] TDAP (ADACEL) 2019-05-31 Completed [facility] VACCINE 00:00:00 [facility] TDAP (ADACEL) 2019-05-31 Completed [facility] VACCINE 00:00:00 [facility] TDAP (ADACEL) 2019-05-31 Completed [facility] VACCINE 00:00:00 [facility] TDAP (ADACEL) 2019-05-31 Completed [facility] VACCINE 00:00:00 [facility] TDAP (ADACEL) 2019-05-31 Completed [facility] VACCINE 00:00:00 [facility] TDAP (ADACEL) 2019-05-31 Completed [facility] VACCINE 00:00:00 [facility] TDAP (ADACEL) 2019-05-31 Completed [facility] VACCINE 00:00:00 [facility] TDAP (ADACEL) 2019-05-31 Completed [facility] VACCINE 00:00:00 [facility] TDAP (ADACEL) 2019-05-31 Completed [facility] VACCINE 00:00:00 [facility] TDAP (ADACEL) 2019-05-31 Completed [facility] VACCINE 00:00:00 [facility] TDAP (ADACEL) 2019-05-31 Completed [facility] VACCINE 00:00:00 [facility] TDAP (ADACEL) 2019-05-31 Completed [facility] VACCINE 00:00:00 [facility] TDAP (ADACEL) 2019-05-31 Completed [facility] VACCINE 00:00:00 [facility] TDAP (ADACEL) 2019-05-31 Completed [facility] VACCINE 00:00:00 [facility] TDAP (ADACEL) 2019-05-31 Completed [facility] VACCINE 00:00:00 [facility] TDAP (ADACEL) 2019-05-31 Completed [facility] VACCINE 00:00:00 [facility] TDAP (ADACEL) 2019-05-31 Completed [facility] VACCINE 00:00:00 [facility] TDAP (ADACEL) 2019-05-31 Completed [facility] VACCINE 00:00:00 [facility] TDAP (ADACEL) 2019-05-31 Completed [facility] VACCINE 00:00:00 [facility] TDAP (ADACEL) 2019-05-31 Completed [facility] VACCINE 00:00:00 [facility] TDAP (ADACEL) 2019-05-31 Completed [facility] VACCINE 00:00:00 [facility] TDAP (ADACEL) 2019-05-31 Completed [facility] VACCINE 00:00:00 [facility] TDAP (ADACEL) 2019-05-31 Completed [facility] VACCINE 00:00:00 [facility] TDAP (ADACEL) 2019-05-31 Completed [facility] VACCINE 00:00:00 [facility] TDAP (ADACEL) 2019-05-31 Completed [facility] VACCINE 00:00:00 [facility] TDAP (ADACEL) 2019-05-31 Completed [facility] VACCINE 00:00:00 [facility] TDAP (ADACEL) 2019-05-31 Completed [facility] VACCINE 00:00:00 [facility] TDAP (ADACEL) 2019-05-31 Completed [facility] VACCINE 00:00:00 [facility] TDAP (ADACEL) 2019-05-31 Completed [facility] VACCINE 00:00:00 [facility] TDAP (ADACEL) 2019-05-31 Completed [facility] VACCINE 00:00:00 [facility] TDAP (ADACEL) 2019-05-31 Completed [facility] VACCINE 00:00:00 [facility] TDAP (ADACEL) 2019-05-31 Completed [facility] VACCINE 00:00:00 [facility] TDAP (ADACEL) 2019-05-31 Completed [facility] VACCINE 00:00:00 [facility] TDAP (ADACEL) 2019-05-31 Completed [facility] VACCINE 00:00:00 [facility] TDAP (ADACEL) 2019-05-31 Completed [facility] VACCINE 00:00:00 [facility] TDAP (ADACEL) 2019-05-31 Completed [facility] VACCINE 00:00:00 [facility] TDAP (ADACEL) 2019-05-31 Completed [facility] VACCINE 00:00:00 [facility] TDAP (ADACEL) 2019-05-31 Completed [facility] VACCINE 00:00:00 [facility] TDAP (ADACEL) 2019-05-31 Completed [facility] VACCINE 00:00:00 [facility] TDAP (ADACEL) 2019-05-31 Completed [facility] VACCINE 00:00:00 [facility] TDAP (ADACEL) 2019-05-31 Completed [facility] VACCINE 00:00:00 [facility] TDAP (ADACEL) 2019-05-31 Completed [facility] VACCINE 00:00:00 [facility] TDAP (ADACEL) 2019-05-31 Completed [facility] VACCINE 00:00:00 [facility] TDAP (ADACEL) 2019-05-31 Completed [facility] VACCINE 00:00:00 [facility] TDAP (ADACEL) 2019-05-31 Completed [facility] VACCINE 00:00:00 [facility] TDAP (ADACEL) 2019-05-31 Completed [facility] VACCINE 00:00:00 [facility] TDAP (ADACEL) 2019-05-31 Completed [facility] VACCINE 00:00:00 [facility] TDAP (ADACEL) 2019-05-31 Completed [facility] VACCINE 00:00:00 [facility] TDAP (ADACEL) 2019-05-31 Completed [facility] VACCINE 00:00:00 [facility] TDAP (ADACEL) 2019-05-31 Completed [facility] VACCINE 00:00:00 [facility] TDAP (ADACEL) 2019-05-31 Completed [facility] VACCINE 00:00:00 [facility] TDAP (ADACEL) 2019-05-31 Completed [facility] VACCINE 00:00:00 [facility] TDAP (ADACEL) 2019-05-31 Completed [facility] VACCINE 00:00:00 [facility] TDAP (ADACEL) 2019-05-31 Completed [facility] VACCINE 00:00:00 [facility] TDAP (ADACEL) 2019-05-31 Completed [facility] VACCINE 00:00:00 [facility] TDAP (ADACEL) 2019-05-31 Completed [facility] VACCINE 00:00:00 [facility] TDAP (ADACEL) 2019-05-31 Completed [facility] VACCINE 00:00:00 [facility] TDAP (ADACEL) 2019-05-31 Completed [facility] VACCINE 00:00:00 [facility] TDAP (ADACEL) 2019-05-31 Completed [facility] VACCINE 00:00:00 [facility] TDAP (ADACEL) 2019-05-31 Completed [facility] VACCINE 00:00:00 [facility] TDAP (ADACEL) 2019-05-31 Completed [facility] VACCINE 00:00:00 [facility] TDAP (ADACEL) 2019-05-31 Completed [facility] VACCINE 00:00:00 [facility] TDAP (ADACEL) 2019-05-31 Completed [facility] VACCINE 00:00:00 [facility] TDAP (ADACEL) 2019-05-31 Completed [facility] VACCINE 00:00:00 [facility] TDAP (ADACEL) 2019-05-31 Completed [facility] VACCINE 00:00:00 [facility] TDAP (ADACEL) 2019-05-31 Completed [facility] VACCINE 00:00:00 [facility] TDAP (ADACEL) 2019-05-31 Completed [facility] VACCINE 00:00:00 [facility] TDAP (ADACEL) 2019-05-31 Completed [facility] VACCINE 00:00:00 [facility] TDAP (ADACEL) 2019-05-31 Completed [facility] VACCINE 00:00:00 [facility] Influenza Virus 2018-09-28 Completed [facility]it y [facility] Vacc[facility] 00:00:00 [place] [facility] Influenza Virus 2018-09-28 Completed [facility] y of Vaccine [facility] IM 00:00:00 [place] [facility] Influenza Virus 2018-09-28 Completed [facility] y of Vaccine [facility] IM 00:00:00 [place] [facility] Influenza Virus 2018-09-28 Completed [facility] y of Vaccine [facility] IM 00:00:00 [place] [facility] Influenza Virus 2018-09-28 Completed [facility] y of Vaccine [facility] IM 00:00:00 [place] [facility] Influenza Virus 2018-09-28 Completed [facility] y of Vaccine [facility] IM 00:00:00 [place] [facility] Influenza Virus 2018-09-28 Completed [facility] y of Vaccine [facility] IM 00:00:00 [place] [facility] Influenza Virus 2018-09-28 Completed [facility] y of Vaccine [facility] IM 00:00:00 [place] [facility] Influenza Virus 2018-09-28 Completed [facility] y of Vaccine Quad IM 00:00:00 [place] [facility] Influenza Virus 2018-09-28 Completed [facility] y of Vaccine [facility] IM 00:00:00 [place] [facility] Influenza Virus 2018-09-28 Completed [facility] y of Vaccine [facility] IM 00:00:00 [place] [facility] Influenza Virus 2018-09-28 Completed [facility] y of Vaccine [facility] IM 00:00:00 [place] [facility] Influenza Virus 2018-09-28 Completed [facility] y of Vaccine [facility] IM 00:00:00 [place] [facility] Influenza Virus 2018-09-28 Completed [facility] y of Vaccine [facility] IM 00:00:00 [place] [facility] Influenza Virus 2018-09-28 Completed [facility] y of Vaccine [facility] IM 00:00:00 [place] [facility] Influenza Virus 2018-09-28 Completed [facility] y of Vaccine Quad IM 00:00:00 [place] [facility] Influenza Virus 2018-09-28 Completed [facility] y of Vaccine [facility] IM 00:00:00 [place] [facility] Influenza Virus 2018-09-28 Completed [facility] y of Vaccine [facility] IM 00:00:00 [place] [facility] Influenza Virus 2018-09-28 Completed [facility] y of Vaccine Quad IM 00:00:00 [place] [facility] Influenza Virus 2018-09-28 Completed [facility] y of Vaccine [facility] IM 00:00:00 [place] [facility] Influenza Virus 2018-09-28 Completed [facility] y of Vaccine [facility] IM 00:00:00 [place] [facility] Influenza Virus 2018-09-28 Completed [facility] y of Vaccine [facility] IM 00:00:00 [place] [facility] Influenza Virus 2018-09-28 Completed [facility] y of Vaccine [facility] IM 00:00:00 [place] [facility] Influenza Virus 2018-09-28 Completed [facility] y of Vaccine [facility] IM 00:00:00 [place] [facility] Influenza Virus 2018-09-28 Completed [facility] y of Vaccine Quad IM 00:00:00 [place] [facility] Influenza Virus 2018-09-28 Completed [facility] y of Vaccine Quad IM 00:00:00 [place] [facility] Influenza Virus 2018-09-28 Completed [facility] y of Vaccine Quad IM 00:00:00 [place] [facility] Influenza Virus 2018-09-28 Completed [facility] y of Vaccine Quad IM 00:00:00 [place] [facility] Influenza Virus 2018-09-28 Completed [facility] y of Vaccine Quad IM 00:00:00 [place] [facility] Influenza Virus 2018-09-28 Completed [facility] y of Vaccine Quad IM 00:00:00 [place] [facility] Influenza Virus 2018-09-28 Completed [facility] y of Vaccine [facility] IM 00:00:00 [place] [facility] Influenza Virus 2018-09-28 Completed [facility] y of Vaccine Quad IM 00:00:00 [place] [facility] Influenza Virus 2018-09-28 Completed [facility] y of Vaccine Quad IM 00:00:00 [place] [facility] Influenza Virus 2018-09-28 Completed [facility] y of Vaccine Quad IM 00:00:00 [place] [facility] Influenza Virus 2018-09-28 Completed [facility] y of Vaccine [facility] IM 00:00:00 [place] [facility] Influenza Virus 2018-09-28 Completed [facility] y of Vaccine Quad IM 00:00:00 [place] [facility] Influenza Virus 2018-09-28 Completed [facility] y of Vaccine Quad IM 00:00:00 [place] [facility] Influenza Virus 2018-09-28 Completed [facility] y of Vaccine Quad IM 00:00:00 [place] [facility] Influenza Virus 2018-09-28 Completed [facility] y of Vaccine Quad IM 00:00:00 [place] [facility] Influenza Virus 2018-09-28 Completed [facility] y of Vaccine Quad IM 00:00:00 [place] [facility] Influenza Virus 2018-09-28 Completed [facility] y of Vaccine Quad IM 00:00:00 [place] [facility] Influenza Virus 2018-09-28 Completed [facility] y of Vaccine Quad IM 00:00:00 [place] [facility] Influenza Virus 2018-09-28 Completed [facility] y of Vaccine [facility] IM 00:00:00 [place] [facility] Influenza Virus 2018-09-28 Completed [facility] y of Vaccine Quad IM 00:00:00 [place] [facility] Influenza Virus 2018-09-28 Completed [facility] y of Vaccine Quad IM 00:00:00 [place] [facility] Influenza Virus 2018-09-28 Completed [facility] y of Vaccine Quad IM 00:00:00 [place] [facility] Influenza Virus 2018-09-28 Completed [facility] y of Vaccine Quad IM 00:00:00 [place] [facility] Influenza Virus 2018-09-28 Completed [facility] y of Vaccine Quad IM 00:00:00 [place] [facility] Influenza Virus 2018-09-28 Completed [facility] y of Vaccine Quad IM 00:00:00 [place] [facility] Influenza Virus 2018-09-28 Completed [facility] y of Vaccine Quad IM 00:00:00 [place] [facility] Influenza Virus 2018-09-28 Completed [facility] y of Vaccine Quad IM 00:00:00 [place] [facility] 6[facility] MO [facility] Influenza Virus 2018-09-28 Completed [facility] y of Vaccine Quad IM 00:00:00 [place] [facility] Influenza Virus 2018-09-28 Completed [facility] y of Vaccine [facility] IM 00:00:00 [place] [facility] Influenza Virus 2018-09-28 Completed [facility] y of Vaccine [facility] IM 00:00:00 [place] [facility] Influenza Virus 2018-09-28 Completed [facility] y of Vaccine Quad IM 00:00:00 [place] [facility] Influenza Virus 2018-09-28 Completed [facility] y of Vaccine Quad IM 00:00:00 [place] [facility] MO [facility] Influenza Virus 2018-09-28 Completed [facility] y of Vaccine Quad IM 00:00:00 [place] [facility] 6[facility] Influenza Virus 2018-09-28 Completed [facility] y of Vaccine Quad IM 00:00:00 [place] [facility] 6[facility] Influenza Virus 2018-09-28 Completed [facility] y of Vaccine Quad IM 00:00:00 [place] [facility] 6[facility] Influenza Virus 2018-09-28 Completed [facility] y of Vaccine Quad IM 00:00:00 [place] [facility] 6[facility] Influenza Virus 2018-09-28 Completed [facility] y of Vaccine [facility] IM 00:00:00 [place] [facility] Influenza Virus 2018-09-28 Completed [facility] y of Vaccine Quad IM 00:00:00 [place] [facility] Influenza Virus 2018-09-28 Completed [facility] y of Vaccine [facility] IM 00:00:00 [place] [facility] Influenza Virus 2018-09-28 Completed [facility] y of Vaccine [facility] IM 00:00:00 [place] [facility] Influenza Virus 2018-09-28 Completed [facility] y of Vaccine Quad IM 00:00:00 [place] [facility] MO [facility] Influenza Virus 2018-09-28 Completed [facility] y of Vaccine Quad IM 00:00:00 [place] [facility] Influenza Virus 2018-09-28 Completed [facility] y of Vaccine [facility] IM 00:00:00 [place] [facility] Influenza Virus 2018-09-28 Completed [facility] y of Vaccine [facility] IM 00:00:00 [place] [facility] Influenza Virus 2018-09-28 Completed [facility] y of Vaccine [facility] IM 00:00:00 [place] [facility] Influenza Virus 2018-09-28 Completed [facility] y of Vaccine Quad IM 00:00:00 [place] [facility] Influenza Virus 2018-09-28 Completed [facility] y of Vaccine [facility] IM 00:00:00 [place] [facility] 6[facility] Influenza Virus 2018-09-28 Completed [facility] y of Vaccine Quad IM 00:00:00 [place] [facility] 6[facility] Influenza Virus 2018-09-28 Completed [facility] y of Vaccine Quad IM 00:00:00 [place] [facility] 6[facility] Influenza Virus 2018-09-28 Completed [facility] y of Vaccine Quad IM 00:00:00 [place] [facility] 6[facility] Influenza Virus 2018-09-28 Completed [facility] y of Vaccine Quad IM 00:00:00 [place] [facility] Influenza Virus 2018-09-28 Completed [facility] y of Vaccine [facility] IM 00:00:00 [place] [facility] 6[facility] Influenza Virus 2018-09-28 Completed [facility] y of Vaccine Quad IM 00:00:00 [place] [facility] 6[facility] MO [facility] Influenza Virus 2018-09-28 Completed [facility] y of Vaccine Quad IM 00:00:00 [place] [facility] Influenza Virus 2018-09-28 Completed [facility] y of Vaccine Quad IM 00:00:00 [place] [facility] 6[facility] MO [facility] Influenza Virus 2018-09-28 Completed [facility] y of Vaccine Quad IM 00:00:00 [place] [facility] 6[facility] MO [facility] Influenza Virus 2018-09-28 Completed [facility] y of Vaccine Quad IM 00:00:00 [place] [facility] 6+ MO [facility] Influenza Virus 2018-09-28 Completed [facility] y of Vaccine Quad IM 00:00:00 [place] [facility] 6[facility] MO [facility] Influenza Virus 2018-09-28 Completed [facility] y of Vaccine Quad IM 00:00:00 [place] [facility] 6[facility] MO [facility] Influenza Virus 2018-09-28 Completed [facility] y of Vaccine Quad IM 00:00:00 [place] [facility] 6[facility] MO [facility] Influenza Virus 2018-09-28 Completed [facility] y of Vaccine Quad IM 00:00:00 [place] [facility] 6[facility] Influenza Virus 2018-09-28 Completed [facility] y of Vaccine Quad IM 00:00:00 [place] [facility] 6[facility] Influenza Virus 2018-09-28 Completed [facility] y of Vaccine Quad IM 00:00:00 [place] [facility] 6[facility] MO [facility] Influenza Virus 2018-09-28 Completed [facility] y of Vaccine Quad IM 00:00:00 [place] [facility] 6[facility] MO [facility] Influenza Virus 2018-09-28 Completed [facility] y of Vaccine Quad IM 00:00:00 [place] [facility] 6[facility] Influenza Virus 2018-09-28 Completed [facility] y of Vaccine Quad IM 00:00:00 [place] [facility] 6[facility] MO [facility] Influenza Virus 2018-09-28 Completed [facility] y of Vaccine Quad IM 00:00:00 [place] [facility] 6[facility] Influenza Virus 2018-09-28 Completed [facility] y of Vaccine Quad IM 00:00:00 [place] [facility] 6[facility] MO [facility] Influenza Virus 2018-09-28 Completed [facility] y of Vaccine Quad IM 00:00:00 [place] [facility] 6[facility] MO [facility] Influenza Virus 2018-09-28 Completed [facility] y of Vaccine Quad IM 00:00:00 [place] [facility] 6[facility] MO [facility] Influenza Virus 2018-09-28 Completed [facility] y of Vaccine Quad IM 00:00:00 [place] [facility] 6[facility] Influenza Virus 2018-09-28 Completed [facility] y of Vaccine [facility] IM 00:00:00 [place] [facility] Influenza Virus 2018-09-28 Completed [facility] y of Vaccine Quad IM 00:00:00 [place] [facility] 6[facility] Influenza Virus 2018-09-28 Completed [facility] y of Vaccine [facility] IM 00:00:00 [place] [facility] 6[facility] Influenza Virus 2018-09-28 Completed [facility] of Vaccine [facility] IM 00:00:00 [place] [facility] Influenza Virus 2018-09-28 Completed [facility] y of Vaccine [facility] IM 00:00:00 [place] [facility] Influenza Virus 2018-09-28 Completed [facility] of Vaccine [facility] IM 00:00:00 [place] [facility] Influenza Virus 2018-09-28 Completed [facility] y of Vaccine [facility] IM 00:00:00 [place] [facility] 6[facility] MO [facility] Influenza Virus 2018-09-28 Completed [facility] y of Vaccine [facility] IM 00:00:00 [place] [facility] 6[facility] Influenza Virus 2018-09-28 Completed [facility] y of Vaccine Quad IM 00:00:00 [place] [facility] 6[facility] Influenza Virus 2018-09-28 Completed [facility] y of Vaccine [facility] IM 00:00:00 [place] [facility] 6[facility] Influenza Virus 2018-09-28 Completed [facility] y of Vaccine [facility] IM 00:00:00 [place] [facility] 6[facility] Influenza Virus 2018-09-28 Completed [facility] y of Vaccine [facility] IM 00:00:00 [place] [facility] Influenza Virus 2018-09-28 Completed [facility] y of Vaccine Quad IM 00:00:00 [place] [facility] 6[facility] Influenza Virus 2018-09-28 Completed [facility] y of Vaccine [facility] IM 00:00:00 [place] [facility] Influenza Virus 2018-09-28 Completed [facility] y of Vaccine [facility] IM 00:00:00 [place] [facility] 6[facility] Influenza Virus 2018-09-28 Completed [facility] y of Vaccine [facility] IM 00:00:00 [place] [facility] Influenza Virus 2018-09-28 Completed [facility] y of Vaccine [facility] IM 00:00:00 [place] [facility] 6[facility] Influenza Virus 2018-09-28 Completed [facility] y of Vaccine Quad IM 00:00:00 [place] [facility] 6[facility] Influenza Virus 2018-09-28 Completed [facility] y of Vaccine [facility] IM 00:00:00 [place] [facility] 6[facility] Influenza Virus 2018-09-28 Completed [facility] y of Vaccine [facility] IM 00:00:00 [place] [facility] 6[facility] MO [facility] Influenza Virus 2018-09-28 Completed [facility] y of Vaccine [facility] IM 00:00:00 [place] [facility] 6[facility] Influenza Virus 2018-09-28 Completed [facility] y of Vaccine [facility] IM 00:00:00 [place] [facility] 6[facility] Influenza Virus 2018-09-28 Completed [facility] y of Vaccine Quad IM 00:00:00 [place] [facility] 6[facility] MO [facility] Influenza Virus 2018-09-28 Completed [facility] y of Vaccine Quad IM 00:00:00 [place] [facility] 6[facility] Influenza Virus 2018-09-28 Completed [facility] y of Vaccine Quad IM 00:00:00 [place] [facility]dose 6[facility] MO [facility] Influenza Virus 2018-09-28 Completed [facility] y of Vaccine [facility] IM 00:00:00 [place] [facility] 6[facility] Influenza Virus 2018-09-28 Completed [facility] y of Vaccine Quad IM 00:00:00 [place] [facility] 6[facility] Influenza Virus 2018-09-28 Completed [facility] y of Vaccine [facility] IM 00:00:00 [place] [facility] 6[facility] MO [facility] Influenza Virus 2018-09-28 Completed [facility] y of Vaccine [facility] IM 00:00:00 [place] [facility] 6[facility] Influenza Virus 2018-09-28 Completed [facility] y of Vaccine Quad IM 00:00:00 [place] [facility]dose 6[facility] MO [facility] Influenza Virus 2018-09-28 Completed [facility] y of Vaccine Quad IM 00:00:00 [place] [facility]dose 6[facility] MO [facility] Influenza Virus 2018-09-28 Completed [facility] y of Vaccine Quad IM 00:00:00 [place] [facility]dose 6[facility] MO [facility] Influenza Virus 2018-09-28 Completed [facility] y of Vaccine [facility] IM 00:00:00 [place] [facility] 6[facility] Influenza Virus 2018-09-28 Completed [facility] y of Vaccine [facility] IM 00:00:00 [place] [facility] Vital Signs Vital Name Observation Time Observation Value Comments Source Systolic blood 2022-12-17 135 mm[Hg] University of pressure 14:40: [facility] Diastolic blood 2022-12-17 74 mm[Hg] University o f pressure 14:40: [facility] Heart rate 2022-12-17 80 /min [facility] of 14:40: [facility] Respiratory rate 2022-12-17 19 /min [facility] of 14:40:00 [facility] Body height 2022-12-17 177.8 cm University of 14:40:00 [facility] Body weight 2022-12-17 107.729 kg University of 14:40: [facility] BMI 2022-12-17 34.08 kg/m2 University of 14:40: [facility] Oxygen saturation 2022-12-17 97 /min [facility] in Arterial blood 14:40: [facility] [place] by Pulse oximetry [place] Systolic blood 2022-12-16 142 mm[Hg] University of pressure 05:00:00 [facility] Diastolic blood 2022-12-16 85 mm[Hg] University o f pressure 05:00:00 [facility] Heart rate 2022-12-16 91 /min [facility] of 05:00:00 [facility] Respiratory rate 2022-12-16 23 /min [facility] of 05:00:00 [facility] Oxygen saturation 2022-12-16 95 /min University of in Arterial blood 05:00:00 [facility] by Pulse oximetry Branch Body temperature 2022-12-16 36.89 Jessie University of 02:30:00 [facility] Body height 2022-12-16 177.8 cm University of 02:30:00 [facility] Body weight 2022-12-16 108.138 kg University of 02:30:00 [facility] BMI 2022-12-16 34.21 kg/m2 University of 02:30:00 [facility] Systolic blood 2022-12-04 144 mm[Hg] University of pressure 20:59:00 [facility] Diastolic blood 2022-12-04 74 mm[Hg] University o f pressure 20:59:00 [facility] Heart rate 2022-12-04 84 /min [facility] of 20:57:00 [facility] Body temperature 2022-12-04 36.67 Jessie University of 20:57:00 [facility] Body height 2022-12-04 177.8 cm University of 20:57:00 [facility] Body weight 2022-12-04 104.781 kg University of 20:57:00 [facility] BMI 2022-12-04 33.15 kg/m2 University of 20:57:00 [facility] Oxygen saturation 2022-12-04 96 /min [place] in Arterial blood 20:57:00 [facility] by Pulse oximetry Branch Systolic blood 2022-12-04 133 mm[Hg] [facility] pressure 04:00:00 [facility] Diastolic blood 2022-12-04 82 mm[Hg] [facility] pressure 04:00:00 [facility] Heart rate 2022-12-04 76 /min [facility] of 04:00:00 [facility] Respiratory rate 2022-12-04 19 /min [facility] 04:00:00 [facility] Oxygen saturation 2022-12-04 97 /min [facility] of in Arterial blood 04:00:00 [facility] by Pulse oximetry [facility] Body temperature 2022-12-04 37 Jessie [facility] 01:05:00 [facility] Body height 2022-12-04 175.3 cm University of 01:05:00 [facility] Body weight 2022-12-04 97.07 kg University of 01:05:00 [facility] BMI 2022-12-04 31.60 kg/m2 [facility] of 01:05:00 [facility] Systolic blood 2022-11-27 153 mm[Hg] [facility] pressure 03:00:00 [facility] Diastolic blood 2022-11-27 83 mm[Hg] [facility] pressure 03:00:00 [facility] Heart rate 2022-11-27 76 /min [facility] 03:00:00 [facility] Respiratory rate 2022-11-27 23 /min [facility] 03:00:00 [facility] Oxygen saturation 2022-11-27 92 /min [facility] in Arterial blood 03:00:00 [facility] by Pulse oximetry [facility] Body temperature 2022-11-26 37.11 Jessie [facility] 23:22:00 [facility] Body height 2022-11-26 175.3 cm [facility] of 23:22:00 [facility] Body weight 2022-11-26 103.874 kg [facility] of 23:22:00 [facility] BMI 2022-11-26 33.82 kg/m2 [facility] 23:22:00 [facility] Systolic blood 2022-11-07 123 mm[Hg] [facility] pressure 22:06:00 [facility] Diastolic blood 2022-11-07 73 mm[Hg] [facility] pressure 22:06:00 [facility] Heart rate 2022-11-07 88 /min [facility] of 22:05:00 [facility] Body temperature 2022-11-07 37 Jessie [facility] 22:05:00 [facility] Body height 2022-11-07 177.8 cm [facility] of 22:05:00 [facility] Body weight 2022-11-07 102.967 kg [facility] of 22:05:00 [facility] BMI 2022-11-07 32.57 kg/m2 [facility] 22:05:00 [facility] Oxygen saturation 2022-11-07 97 /min [facility] in Arterial blood 22:05:00 [place] [facility] Systolic blood 2022-11-07 115 mm[Hg] [facility] pressure 08:00:00 [facility] Diastolic blood 2022-11-07 80 mm[Hg] [facility] pressure 08:00:00 [facility] Heart rate 2022-11-07 90 /min [facility] of 08:00:00 [facility] Respiratory rate 2022-11-07 18 /min [facility] of 08:00:00 [facility] Oxygen saturation 2022-11-07 97 /min [facility] of in Arterial blood 08:00:00 [facility] by Pulse oximetry [facility] Body temperature 2022-11-07 37.44 Jessie [facility] 05:32:00 [facility] Body height 2022-11-07 177.8 cm [facility] of 05:32:00 [facility] Body weight 2022-11-07 99.791 kg [facility] of 05:32:00 [facility] BMI 2022-11-07 31.57 kg/m2 [facility] of 05:32:00 [facility] Systolic blood 2022-11-03 150 mm[Hg] [facility] pressure 21:05:00 [facility] Diastolic blood 2022-11-03 86 mm[Hg] [facility] pressure 21:05:00 [facility] Heart rate 2022-11-03 94 /min [facility] of 21:05:00 [facility] Body temperature 2022-11-03 36.94 Jessie [facility] 21:05:00 [facility] Body height 2022-11-03 175.3 cm [facility] 21:05:00 [facility] Body weight 2022-11-03 102.059 kg [facility] of 21:05:00 [facility] BMI 2022-11-03 33.23 kg/m2 [facility] of 21:05:00 [facility] Oxygen saturation 2022-11-03 98 /min [place] in Arterial blood 21:05:00 [facility] by Pulse oximetry Branch Systolic blood 2022-10-07 133 mm[Hg] [facility] pressure 20:56:00 [facility] Diastolic blood 2022-10-07 85 mm[Hg] [facility] pressure 20:56:00 [facility] Heart rate 2022-10-07 94 /min [facility] of 20:56:00 [facility] Body temperature 2022-10-07 36.5 Jessie University of 20:56:00 [facility] Respiratory rate 2022-10-07 18 /min [facility] of 20:56:00 [facility] Body height 2022-10-07 175.3 cm [facility] of 20:56:00 [facility] Body weight 2022-10-07 103.619 kg [facility] of 20:56:00 [facility] BMI 2022-10-07 33.73 kg/m2 [facility] of 20:56:00 [facility] Oxygen saturation 2022-10-07 99 /min [facility] in Arterial blood 20:56:00 [facility] by Pulse oximetry Branch Systolic blood 2022-09-29 160 mm[Hg] [facility] pressure 15:04:00 [facility] Diastolic blood 2022-09-29 75 mm[Hg] [facility] pressure 15:04:00 [facility] Heart rate 2022-09-29 96 /min [facility] 15:02:00 [facility] Body height 2022-09-29 175.3 cm [facility] 15:02:00 [facility] Body weight 2022-09-29 107.049 kg [facility] of 15:02:00 [facility] BMI 2022-09-29 34.85 kg/m2 [facility] of 15:02:00 [facility] Oxygen saturation 2022-09-29 100 /min on 2 liters of [facility]i ty of in Arterial blood 15:02:00 oxygen [facility] by Pulse oximetry Branch Systolic blood 2022-09-23 122 mm[Hg] [facility] pressure 16:19:00 [facility] Diastolic blood 2022-09-23 75 mm[Hg] [facility] pressure 16:19:00 [facility] Heart rate 2022-09-23 84 /min [facility] 16:19:00 [facility] Body temperature 2022-09-23 35.83 Jessie [facility] 16:19:00 [facility] Respiratory rate 2022-09-23 18 /min [facility] of 16:19:00 [facility] Oxygen saturation 2022-09-23 97 /min [facility] in Arterial blood 16:19:00 [facility] by Pulse oximetry [facility] Body weight 2022-09-23 104.962 kg [facility] of 09:18:00 [facility] BMI 2022-09-23 34.17 kg/m2 [facility] of 09:18:00 [facility] Systolic blood 2022-09-22 142 mm[Hg] [facility] pressure 13:27:00 [facility] Diastolic blood 2022-09-22 80 mm[Hg] [facility] pressure 13:27:00 [facility] Heart rate 2022-09-22 91 /min [facility] of 13:26:00 [facility] Body height 2022-09-22 175.3 cm [facility] of 13::00 [facility] Body weight 2022-09-22 105.688 kg [facility] of 13::00 [facility] BMI 2022-09-22 34.41 kg/m2 [facility] of 13::00 [facility] Oxygen saturation 2022-09-22 97 /min on 2 liters [facility] in Arterial blood 13::00 oxygen [place] [facility] Systolic blood 2022-09-15 148 mm[Hg] [facility] pressure 16:10:00 [facility] Diastolic blood 2022-09-15 88 mm[Hg] [facility] pressure 16:10:00 [facility] Heart rate 2022-09-15 97 /min [facility] 16::00 [facility] Respiratory rate 2022-09-15 22 /min [facility] 16:07:00 [facility] Body height 2022-09-15 175.3 cm [facility] 16::00 [facility] Body weight 2022-09-15 105.96 kg [facility] of 16::00 [facility] BMI 2022-09-15 34.50 kg/m2 [facility] of 16::00 [facility] Oxygen saturation 2022-09-15 97 /min on 2L [place] [facility] in Arterial blood 16:07:00 [place] [facility] Systolic blood 2022-09-12 147 mm[Hg] [facility] pressure 20:29:00 [facility] Diastolic blood 2022-09-12 78 mm[Hg] [facility] pressure 20:29:00 [facility] Heart rate 2022-09-12 97 /min [facility] of 20:28:00 [facility] Body temperature 2022-09-12 36.61 Jessie [facility] 20:28:00 [facility] Body height 2022-09-12 175.3 cm [facility] 20:28:00 [facility] Body weight 2022-09-12 107.502 kg [facility] of 20:28:00 [facility] BMI 2022-09-12 35.00 kg/m2 [facility] 20:28:00 [facility] Oxygen saturation 2022-09-12 94 /min on 2 liters [facility] in Arterial blood 20:28:00 [place] [facility] Systolic blood 2022-09-08 139 mm[Hg] [facility] 21:10:00 [facility] Diastolic blood 2022-09-08 74 mm[Hg] [facility] 21:10:00 [facility] Heart rate 2022-09-08 93 /min [facility] 20:04:00 [facility] Body temperature 2022-09-08 36.5 Jessie [facility] 20:04:00 [facility] Body height 2022-09-08 175.3 cm [facility] 20:04:00 [facility] Body weight 2022-09-08 109.317 kg [facility] of 20:04:00 [facility] BMI 2022-09-08 35.59 kg/m2 [facility] of 20:04:00 [facility] Oxygen saturation 2022-09-08 98 /min with 2 liters [facility] y [facility] in Arterial blood 20:04:00 of oxygen [facility] by Pulse oximetry Branch Systolic blood 2022-09-06 109 mm[Hg] [facility] pressure :25:00 [facility] Diastolic blood 2022-09-06 77 mm[Hg] [facility] pressure :25:00 [facility] Heart rate 2022-09-06 105 /min [facility] of 22:25:00 [facility] Body temperature 2022-09-06 37.11 Jessie [facility] 22:25:00 [facility] Respiratory rate 2022-09-06 24 /min University of :25:00 [facility] Body weight 2022-09-06 108.41 kg University of :25:00 [facility] BMI 2022-09-06 35.29 kg/m2 University of :25:00 [facility] Oxygen saturation 2022-09-06 97 /min [facility] in Arterial blood 22:25:00 [place] [facility] Heart rate 2022-09-02 99 /min [facility] of 05:03:00 [facility] Respiratory rate 2022-09-02 16 /min [facility] of 05:03:00 [facility] Oxygen saturation 2022-09-02 97 /min [facility] in Arterial blood 05:03:00 [place] [facility] Systolic blood 2022-09-02 136 mm[Hg] [facility] 05:00:00 [facility] Diastolic blood 2022-09-02 84 mm[Hg] [facility] pressure 05:00:00 [facility] Body temperature 2022-09-02 37.11 Jessie [facility] 02:16:00 [facility] Body height 2022-09-02 175.3 cm [facility] of 02:16:00 [facility] Body weight 2022-09-02 111.585 kg [facility] of 02:16:00 [facility] BMI 2022-09-02 36.33 kg/m2 [facility] of 02:16:00 [facility] Systolic blood 2022-08-29 132 mm[Hg] [facility] pressure 19:10:00 [facility] Diastolic blood 2022-08-29 88 mm[Hg] [facility] pressure 19:10:00 [facility] Heart rate 2022-08-29 86 /min [facility] of 19:10:00 [facility] Body weight 2022-08-29 111.948 kg [facility] of 19:10:00 [facility] BMI 2022-08-29 36.45 kg/m2 [facility] of 19:10:00 [facility] Oxygen saturation 2022-08-29 98 /min [place] [facility] in Arterial blood 19:10:00 [facility] by Pulse oximetry Branch Systolic blood 2022-08-26 120 mm[Hg] [facility] pressure 14:52:00 [facility] Diastolic blood 2022-08-26 90 mm[Hg] [facility] pressure 14:52:00 [facility] Respiratory rate 2022-08-26 20 /min [facility] of 14:52:00 [facility] Oxygen saturation 2022-08-26 95 /min [place] in Arterial blood 14:52:00 [facility] by Pulse oximetry Branch Heart rate 2022-08-26 72 /min [facility] of 13:55:00 [facility] Body height 2022-08-26 175.3 cm [facility] of 13:10:00 [facility] Body weight 2022-08-26 111.131 kg [facility] of 13:10:00 [facility] BMI 2022-08-26 36.18 kg/m2 [facility] of 13:10:00 [facility] Systolic blood 2022-08-25 142 mm[Hg] [facility] pressure 02:40:00 [facility] Diastolic blood 2022-08-25 74 mm[Hg] [facility] pressure 02:40:00 [facility] Heart rate 2022-08-25 75 /min [facility] of 02:40:00 [facility] Respiratory rate 2022-08-25 22 /min [facility] of 02:40:00 [facility] Oxygen saturation 2022-08-25 96 /min [facility] in Arterial blood 02:40:00 [place] [facility] Body temperature 2022-08-24 36.89 Jessie [facility] 23:52:00 [facility] Body height 2022-08-24 175.3 cm [facility] of 23:52:00 [facility] Body weight 2022-08-24 111.131 kg [facility] of 23:52:00 [facility] BMI 2022-08-24 36.18 kg/m2 [facility] of 23:52:00 [facility] Systolic blood 2022-08-24 148 mm[Hg] [facility] pressure 23:35:00 [facility] Diastolic blood 2022-08-24 83 mm[Hg] [facility] pressure 23:35:00 [facility] Heart rate 2022-08-24 84 /min [facility] 23:34:00 [facility] Body temperature 2022-08-24 37.06 Jessie [facility] 23:34:00 [facility] Respiratory rate 2022-08-24 18 /min [facility] 23:34:00 [facility] Body weight 2022-08-24 111.131 kg [facility] of 23:34:00 [facility] BMI 2022-08-24 35.15 kg/m2 [facility] 23:34:00 [facility] Oxygen saturation 2022-08-24 96 /min [facility] in Arterial blood 23:34:00 [facility] by Pulse oximetry [facility] Systolic blood 2022-08-22 164 mm[Hg] [facility] pressure 15:46:00 [facility] Diastolic blood 2022-08-22 92 mm[Hg] [facility] pressure 15:46:00 [facility] Heart rate 2022-08-22 81 /min [facility] of 15:45:00 [facility] Body temperature 2022-08-22 36.83 Jessie [facility] 15:45:00 [facility] Body height 2022-08-22 177.8 cm [facility] 15:45:00 [facility] Body weight 2022-08-22 111.131 kg [facility] of 15:45:00 [facility] BMI 2022-08-22 35.15 kg/m2 [facility] 15:45:00 [facility] Oxygen saturation 2022-08-22 99 /min [facility] in Arterial blood 15:45:00 [place] [facility] Respiratory rate 2022-08-16 16 /min [facility] 20:53:00 [facility] Oxygen saturation 2022-08-16 98 /min [facility] in Arterial blood 20:53:00 [place] [facility] Systolic blood 2022-08-16 101 mm[Hg] [facility] pressure 16:44:00 [facility] Diastolic blood 2022-08-16 59 mm[Hg] [facility] pressure 16:44:00 [facility] Heart rate 2022-08-16 65 /min [facility] of 16:44:00 [facility] Body temperature 2022-08-16 35.72 Jessie [facility] 16:44:00 [facility] Body weight 2022-08-16 110.995 kg [facility] of 08:21:00 [facility] BMI 2022-08-16 36.14 kg/m2 [facility] of 08:21:00 [facility] Body height 2022-08-15 175.3 cm [facility] of 02:17:00 [facility] Systolic blood 2022-07-31 127 mm[Hg] [facility] pressure 21:19:00 [facility] Diastolic blood 2022-07-31 82 mm[Hg] [facility] pressure 21:19:00 [facility] Heart rate 2022-07-31 104 /min [facility] of 21:19:00 [facility] Body temperature 2022-07-31 37.28 Jessie [facility] 21:19:00 [facility] Respiratory rate 2022-07-31 18 /min [facility] of 21:19:00 [facility] Body height 2022-07-31 175.3 cm [facility] of 21:19:00 [facility] Body weight 2022-07-31 110.224 kg [facility] of 21:19:00 [facility] BMI 2022-07-31 35.88 kg/m2 [facility] 21:19:00 [facility] Oxygen saturation 2022-07-31 99 /min [facility] in Arterial blood 21:19:00 [place] [facility] Systolic blood 2022-07-26 133 mm[Hg] [facility] pressure 03:35:00 [facility] Diastolic blood 2022-07-26 85 mm[Hg] [facility] pressure 03:35:00 [facility] Heart rate 2022-07-26 79 /min [facility] of 03:35:00 [facility] Respiratory rate 2022-07-26 18 /min [facility] of 03:35:00 [facility] Oxygen saturation 2022-07-26 98 /min [facility] in Arterial blood 03:35:00 [facility] by Pulse oximetry Branch Body temperature 2022-07-25 37.89 Jessie [facility] 23:12:00 [facility] Body height 2022-07-25 175.3 cm [facility] of 23:12:00 [facility] Body weight 2022-07-25 110.224 kg [facility] of 23:12:00 [facility] BMI 2022-07-25 35.88 kg/m2 [facility] 23:12:00 [facility] Systolic blood 2022-07-25 136 mm[Hg] [facility] pressure 22:31:00 [facility] Diastolic blood 2022-07-25 84 mm[Hg] [facility] pressure 22:31:00 [facility] Heart rate 2022-07-25 103 /min [facility] of 22:30:00 [facility] Body temperature 2022-07-25 36.78 Jessie [facility] 22:30:00 [facility] Respiratory rate 2022-07-25 18 /min [facility] of 22:30:00 [facility] Body height 2022-07-25 175.3 cm [facility] of 22:30:00 [facility] Body weight 2022-07-25 110.632 kg [facility] of 22:30:00 [facility] BMI 2022-07-25 36.02 kg/m2 [facility] 22:30:00 [facility] Oxygen saturation 2022-07-25 97 /min [facility] of in Arterial blood 22:30:00 [facility] by Pulse oximetry [facility] Systolic blood 2022-07-16 146 mm[Hg] [facility] pressure 13:05:00 [facility] Diastolic blood 2022-07-16 72 mm[Hg] [facility] pressure 13:05:00 [facility] Heart rate 2022-07-16 85 /min [facility] of 12:22:00 [facility] Body temperature 2022-07-16 37.06 Jessie [facility] 12:22:00 [facility] Body height 2022-07-16 175.3 cm [facility] of 12:22:00 [facility] Body weight 2022-07-16 111.766 kg [facility] of 12:22:00 [facility] BMI 2022-07-16 36.39 kg/m2 [facility] of 12:22:00 [facility] Oxygen saturation 2022-07-16 97 /min [facility] in Arterial blood 12:22:00 [place] [facility] Systolic blood 2022-07-04 122 mm[Hg] [facility] pressure 16:35:00 [facility] Diastolic blood 2022-07-04 71 mm[Hg] [facility] pressure 16:35:00 [facility] Heart rate 2022-07-04 83 /min [facility] of 16:35:00 [facility] Body temperature 2022-07-04 36.5 Jessie [facility] of 16:35:00 [facility] Respiratory rate 2022-07-04 18 /min [facility] of 16:35:00 [facility] Body weight 2022-07-04 110.315 kg [facility] of 16:35:00 [facility] BMI 2022-07-04 35.91 kg/m2 [facility] of 16:35:00 [facility] Oxygen saturation 2022-07-04 96 /min [facility] in Arterial blood 16:35:00 [place] [facility] Systolic blood 2022-07-04 122 mm[Hg] [facility] pressure 16:35:00 [facility] Diastolic blood 2022-07-04 71 mm[Hg] [facility] pressure 16:35:00 [facility] Heart rate 2022-07-04 83 /min [facility] 16:35:00 [facility] Body temperature 2022-07-04 36.5 Jessie [facility] 16:35:00 [facility] Respiratory rate 2022-07-04 18 /min [facility] of 16:35:00 [facility] Body weight 2022-07-04 110.315 kg [facility] of 16:35:00 [facility] BMI 2022-07-04 35.91 kg/m2 [facility] 16:35:00 [facility] Oxygen saturation 2022-07-04 96 /min [facility] in Arterial blood 16:35:00 [place] [facility] Systolic blood 2021-03-29 127 mm[Hg] [facility] pressure 14:50:00 [facility] Diastolic blood 2021-03-29 75 mm[Hg] [facility] pressure 14:50:00 [facility] Heart rate 2021-03-29 73 /min [facility] of 14:50:00 [facility] Respiratory rate 2021-03-29 14 /min [facility] of 14:50:00 [facility] Oxygen saturation 2021-03-29 97 /min [facility] in Arterial blood 14:50:00 [facility] by Pulse oximetry [facility] Body temperature 2021-03-29 36.06 Jessie [facility] 14:22:00 [facility] Body height 2021-03-27 175.3 cm [facility] of 18:45:00 [facility] Body weight 2021-03-27 105.688 kg [facility] of 18:45:00 [facility] BMI 2021-03-27 34.41 kg/m2 [facility] of 18:45:00 [facility] Systolic blood 2021-03-29 127 mm[Hg] [facility] pressure 14:50:00 [facility] Diastolic blood 2021-03-29 75 mm[Hg] [facility] pressure 14:50:00 [facility] Heart rate 2021-03-29 73 /min [facility] 14:50:00 [facility] Respiratory rate 2021-03-29 14 /min [facility] 14:50:00 [facility] Oxygen saturation 2021-03-29 97 /min [facility] in Arterial blood 14:50:00 [facility] by Pulse oximetry [facility] Body temperature 2021-03-29 36.06 Jessie [facility] 14:22:00 [facility] Body height 2021-03-27 175.3 cm [facility] of 18:45:00 [facility] Body weight 2021-03-27 105.688 kg University of 18:45:00 [facility] BMI 2021-03-27 34.41 kg/m2 [facility] 18:45:00 [facility] Respiratory rate 2021-03-29 12 /min [facility] 14:19:00 [facility] Respiratory rate 2021-03-29 12 /min [facility] 14:19:00 [facility] Temperature Oral 2015-05-22 98.6 F [facility] Dani rmann (F) 04:27:00 Respitory Rate 2015-05-22 [facility] 04:27:00 Systolic (mm Hg) 2015-05-22 [facility] Dani rmann 04:27:00 Diastolic (mm Hg) 2015-05-22 [facility] Cristina ermann 04:27:00 Heart Rate 2015-05-22 Jarrell Loweryan n 04:27:00 Weight 2015-05-22 Jarrell Loweryan n 01:15:00 Temperature Oral 2015-05-22 98.5 F [facility] Dani rmann (F) 01:15:00 Heart Rate 2015-05-22 [facility] 01:15:00 Respitory Rate 2015-05-22 [facility] james 01:15:00 Systolic (mm Hg) 2015-05-22 [facility] He rmann 01:15:00 Diastolic (mm Hg) 2015-05-22 [facility] H ermann 01:15:00 Procedures Procedure Date / Time Performing Clinician Source Performed CT ABDOMEN PELVIS WO 2022-12-16 04:01:00 Sera Navarrete [facility] CONTRAST [facility] COMP. METABOLIC PANEL 2022-12-16 03:52:00 Sera Navarrete [facility] ([id number]) [facility] CBC WITH DIFF 2022-12-16 03:52:00 Sera Navarrete [facility] URINALYSIS 2022-12-16 03:52:00 Sera Navarrete [facility] NOTICE OF PRIVACY 2022-12-16 02:07:56 Doctor Unassigned, [facility] PRACTICES [facility] CONSENT/REFUSAL FOR 2022-12-16 02:07:40 Doctor Unassigned, [facility] DIAGNOSIS AND TREATMENT [facility] CT THORAX W CONTRAST 2022-12-04 03:23:00 Sera Navarrete [facility] TROPONIN I 2022-12-04 01:54:00 Sera Navarrete [facility] COMP. METABOLIC PANEL 2022-12-04 01:54:00 Sera Navarrete [facility] ([id number]) [facility] CBC WITH DIFF 2022-12-04 01:54:00 Sera Navarrete [facility] PROTHROMBIN TIME / INR 2022-12-04 01:54:00 Sera Navarrete [facility] XR CHEST 1 VW 2022-11-27 01:13:00 Anupama Anna [facility] TROPONIN I 2022-11-26 23:56:00 Anupama Anna [facility] COMP. METABOLIC PANEL 2022-11-26 23:56:00 Anupama Anna [facility] ([id number]) Medical Branch CBC WITH DIFF 2022-11-26 23:56:00 Anna, Anupama [facility] RAPID INFLUENZA A/B 2022-11-26 23:56:00 Anupama Anna [facility] N-TERMINAL PRO-BNP 2022-11-26 23:56:00 Anupama Anna [facility] COVID-19 (ID NOW RAPID 2022-11-26 23:56:00 Anupama Anna [facility] TESTING) Medical Branch CONSENT/REFUSAL FOR 2022-11-26 23:08:05 Doctor Unassigned, [facility] DIAGNOSIS AND TREATMENT [facility] ASSIGNMENT OF BENEFITS 2022-11-10 14:41:19 Doctor Unassigned, [facility] POCT MOLECULAR FLU 2022-11-07 22:29:00 [facility] SARS-COV-2 ANTIGEN 2022-11-07 22:20:00 [facility] ([facility] CT ABDOMEN PELVIS W 2022-11-07 07:31:12 Sera Navarrete [facility] CONTRAST Medical Branch LIPASE 2022-11-07 06:42:00 Sera Navarrete [facility] COMP. METABOLIC PANEL 2022-11-07 06:42:00 Sera Navarrete [facility] ([id number]) [facility] CBC WITH DIFF 2022-11-07 06:42:00 Sera Navarrete [facility] PROTHROMBIN TIME / INR 2022-11-07 06:42:00 Sera Navarrete [facility] CONSENT/REFUSAL FOR 2022-11-07 05:18:58 Doctor Unassigned, [facility] DIAGNOSIS AND TREATMENT [facility] ASSIGNMENT OF BENEFITS 2022-10-28 19:56:44 Doctor Unassigned, [facility] POCT GLUCOSE (AUTOMATED) 2022-09-23 18:49:00 Shad العلي [facility] POCT GLUCOSE (AUTOMATED) 2022-09-23 17:09:00 Shad العلي [facility] POCT GLUCOSE (AUTOMATED) 2022-09-23 12:30:00 Shad العلي [facility] BASIC METABOLIC PANEL (NA, 2022-09-23 09:55:00 Sridhar Rayo [facility] K, CL, CO2, GLUCOSE, BUN, Medica [facility] CREATININE, CA) CBC WITH DIFF 2022-09-23 09:55:00 Nila [facility] POCT GLUCOSE (AUTOMATED) 2022-09-23 09:53:00 Shad [facility]لي [facility] ([facility]OM[facility]) 2022-09-23 05:27:00 Shad العلي [facility] PO[facility] GLUCOSE (AUTOMATED) 2022-09-23 02:08:00 Shad العلي [facility] PO[facility] GLU[facility]SE (AUTOMATED) 2022-09-22 23:50:00 Jean Ramírez [facility] POCT GLUCOSE (AUTOMATED) 2022-09-22 22:02:00 Jean Ramírez [facility] TROPONIN I 2022-09-22 21:13:00 Jean Ramírez [facility] HB ECG ROUTINE & RHYTHM 2022-09-22 21:09:05 Jean Ramírez [facility] POCT GLUCOSE (AUTOMATED) 2022-09-22 20:57:00 Jean Ramírez [facility] POCT GLUCOSE (AUTOMATED) 2022-09-22 20:22:00 Jean Ramírez [facility] URINALYSIS 2022-09-22 19:14:00 Jean Ramírez [facility] BASIC METABOLIC PANEL (NA, 2022-09-22 19:03:00 Jean Ramírez [facility] K, CL, CO2, GLUCOSE, BUN, Medica l Branch CREATININE, CA) CBC WITH DIFF 2022-09-22 19:03:00 Jean Ramírez [facility] GLYCOSYLATED HEMOGLOBIN 2022-09-22 19:03:00 Nila [facility] (A1C) [facility] POCT GLUCOSE (AUTOMATED) 2022-09-22 18:42:00 Jean Ramírez [facility] CONSENT/REFUSAL FOR 2022-09-22 18:30:46 Doctor Viktoriya [facility] DIAGNOSIS AND TREATMENT [facility] URINALYSIS 2022-09-22 13:54:00 [facility] POCT GLUCOSE (AUTOMATED) 2022-09-22 13:23:00 [facility] PULMONARY FUNCTION TEST 2022-09-19 12:32:47 Pk Olea [facility] (RESULTS) [facility] Branch INSURANCE CORRESPONDENCE 2022-09-16 05:01:00 Doctor Sadler [facility] XR CHEST 2 VW 2022-09-06 23:25:00 [facility] CHEST 1 VW 2022-09-02 03:21:06 Sophie Burton [facility] MAGNESIUM 2022-09-02 03:01:00 Sophie Burton [facility] TROPONIN I 2022-09-02 03:01:00 Sophie Burton [facility] COMP. METABOLIC PANEL 2022-09-02 03:01:00 Sophie Burton [facility] ([id number]) [facility] CBC WITH DIFF 2022-09-02 03:01:00 Sophie Burton [facility] N-TERMINAL PRO-BNP 2022-09-02 03:01:00 Sophie [facility] (ID NOW RAPID 2022-09-02 03:01:00 Sophie Burton [facility] TESTING) [facility] CONSENT/REFUSAL FOR 2022-09-02 02:05:28 Doctor Sadler [facility] AUTHORIZ[facility] TO RELEASE 2022-08-29 05:01:00 Doctor Sadler [facility] PHI TO [facility] Name [facility] TRANSESOPHAGEAL ECHO (ZEHRA) 2022-08-26 15:16:44 Dustin Angeles [facility] COMPLETE W/ DOPPLER AND [facility] COLOR POCT GLUCOSE (AUTOMATED) 2022-08-25 02:18:00 Daniel Schofield [facility] POCT GLUCOSE (AUTOMATED) 2022-08-25 01:25:00 Daniel Schofield [facility] COMP. METABOLIC PANEL 2022-08-25 00:37:00 Daniel Schofield [facility] ([id number]) [facility] CBC WITH DIFF 2022-08-25 00:37:00 Daniel Schofield [facility] URINALYSIS 2022-08-25 00:31:00 Daniel Schofield [facility] POCT GLUCOSE (AUTOMATED) 2022-08-24 23:57:00 Daniel Schofield [facility] CONSENT/REFUSAL FOR 2022-08-24 23:47:33 Doctor Unassigned, [facility] DIAGNOSIS AND TREATMENT [facility] POCT GLUCOSE (AUTOMATED) 2022-08-24 23:28:00 Omaghomi, Omayemi U [facility] BASIC METABOLIC PANEL (NA, 2022-08-16 18:07:00 Lynsey Castillo [facility] K, CL, CO2, GLUCOSE, BUN, Medica l Branch CREATININE, CA) POCT GLUCOSE (AUTOMATED) 2022-08-16 16:46:00 Shad العلي [facility] POCT GLUCOSE (AUTOMATED) 2022-08-16 12:50:00 Shad العلي [facility] POTASSIUM, URINE RANDOM 2022-08-16 11:06:00 Ambrose Jefferson [facility] SODIUM, URINE RANDOM 2022-08-16 11:06:00 Ambrose Jefferson [facility] POCT GLUCOSE (AUTOMATED) 2022-08-16 08:50:00 Shad العلي [facility] POCT GLUCOSE (AUTOMATED) 2022-08-16 05:05:00 Shad العلي [facility] POCT GLUCOSE (AUTOMATED) 2022-08-16 01:40:00 Shad العلي [facility] US RETROPERITONEAL 2022-08-16 01:34:00 Ambrose Jefferson [facility] POCT GLUCOSE (AUTOMATED) 2022-08-15 21:25:00 Shad العلي [facility] POCT GLUCOSE (AUTOMATED) 2022-08-15 16:49:00 Sahil Morales [facility] TRANSTHORACIC ECHO (TTE) 2022-08-15 13:55:00 Kirk Espitia [facility] POCT GLUCOSE (AUTOMATED) 2022-08-15 13:08:00 Sahil Morales [facility] URIC ACID 2022-08-15 10:44:00 Sahil Morales [facility] TROPONIN I 2022-08-15 10:44:00 Lynsey Castillo [facility] COMP. METABOLIC PANEL 2022-08-15 10:44:00 Sahil Morales [facility] ([id number] AC VBG + LACTIC ACID 2022-08-15 10:44:00 Sahil Morales [facility] SEDIMENTATION RATE 2022-08-15 05:17:00 Sahil Morales [facility] DIFF CONSULT 2022-08-15 05:17:00 Sahil Morales [facility] CBC WITH DIFF 2022-08-15 05:17:00 Sahil Morales [facility] PROTHROMBIN TIME / INR 2022-08-15 05:17:00 Sahil Morales [facility] POCT GLUCOSE (AUTOMATED) 2022-08-15 05:09:00 Sahil Morales [facility] PHOSPHORUS 2022-08-15 03:09:00 Sahil Morales [facility] CREATINE KINASE 2022-08-15 03:09:00 Sahil Morales [facility] URIC ACID 2022-08-15 03:09:00 Sahil Morales [facility] MAGNESIUM 2022-08-15 03:09:00 Andrew beth [facility] FERRITIN SERUM 2022-08-15 03:09:00 Sahil Morales [facility] VITAMIN B12, LEVEL 2022-08-15 03:09:00 Sahil Morales [facility] FOLATE 2022-08-15 03:09:00 Andrew beth [facility] C-REACTIVE PROTEIN 2022-08-15 03:09:00 Sahil Morales [facility] THYROID STIMULATING 2022-08-15 03:09:00 Sahil Morales [facility] HORMONE [facility] LIPID PANEL ([id number])(TOTAL 2022-08-15 03:09:00 Sahil Morales [facility] CHOLESTEROL, [facility] TRIGLYCERIDES, HDL) IRON PANEL 2022-08-15 03:09:00 Andrew beth [facility] URINE DRUG (IMMUNOASSAY) - 2022-08-15 03:09:00 Sahil Morales [facility] COMPREHENSIVE DRUG SCREEN Medica Branch URINALYSIS 2022-08-15 03:09:00 Sahil Morales [facility] PNEUMOCOCCAL ANTIGEN 2022-08-15 03:09:00 Sahil Morales [facility] VITAMIN D, 25-OH 2022-08-15 03:09:00 Andrew [facility] PROTEIN CREAT RATIO URINE 2022-08-15 03:09:00 Sahil Morales [facility] SODIUM, URINE RANDOM 2022-08-15 03:09:00 Sahil Morales [facility] PROCALCITONIN 2022-08-15 03:09:00 Andrew beth [facility] AC VBG + LACTIC ACID 2022-08-15 03:09:00 Sahil Morales [facility] RESPIRATORY PANEL BY PCR 2022-08-15 03:09:00 Sahil Morales [facility] CT THORAX W CONTRAST 2022-08-15 02:47:00 Sahil Morales [facility] BLOOD CULTURE SCREEN 2022-08-15 01:23:00 [place] [facility] PROCALCITONIN 2022-08-15 01:23:00 [place] [facility] COVID-19 (ID NOW RAPID 2022-08-15 00:18:00 Adria [facility] TESTING) [facility] LAB ONLY COVID 2022-08-15 00:18:00 [place] [facility] INTERPRETATION [facility] D-DIMER 2022-08-14 23:51:00 [place] [facility] XR CHEST 2 VW 2022-08-14 23:42:55 [place] [facility] HB ECG ROUTINE & RHYTHM 2022-08-14 23:20:04 Gold [place] [facility] TROPONIN I 2022-08-14 23:19:00 [facility]OLIC PANEL 2022-08-14 23:19:00 Adria [facility] ([id number]) [facility] CBC WITH DIFF 2022-08-14 23:19:00 Adria Gold [facility] GLYCOSYLATED HEMOGLOBIN 2022-08-14 23:19:00 Sahil Morales [facility] (A1C) [facility] N-TERMINAL PRO-BNP 2022-08-14 23:19:00 [place] [facility] CONSENT/REFUSAL FOR 2022-08-14 22:54:01 Doctor Unassigned, [facility] DIAGNOSIS AND TREATMENT [facility] POCT SARS-COV-2 ANTIGEN 2022-07-31 21:37:00 Tessa Cline [facility] (BINAX NOW) [facility] COMP. METABOLIC PANEL 2022-07-26 01:49:00 Anupama Anna [facility] ([id number]) [facility] CBC WITH DIFF 2022-07-26 00:38:00 Anupama Anna [facility] LACTIC ACID WHOLE BLOOD 2022-07-26 00:37:00 Anupama Anna [facility] XR FOOT 3+ VW RIGHT 2022-07-26 00:35:18 Anupama Anna [facility] CONSENT/REFUSAL FOR 2022-07-25 23:02:59 Doctor Unassmallika, [facility] DIAGNOSIS AND TREATMENT [facility] REFERRAL- REQUEST/RESPONSE 2022-06-11 05:01:00 Doctor Junessmallika , [facility] INTUBATION 2021-03-29 13:43:41 Roney Franco [facility] POCT GLUCOSE (AUTOMATED) 2021-03-29 12:29:00 Fahad Chan [facility] ASSIGNMENT OF BENEFITS 2021-03-28 16:29:48 Doctor Unassigned, [facility] Name Medical Branch Lower back [facility] Repair of knee joint [facility] Plan of Care Planned Activity Planned Date Details Comments Source Future Scheduled 2031-02-18 Screening for University of Test 00:00:00 malignant neoplasm [place] [facility] of colon (procedure) Branch [code = 605553442] Future Scheduled 2031-02-18 Screening for University of Test 00:00:00 malignant neoplasm [place] [facility] of colon (procedure) Branch [code = 637423669] Future Scheduled 2031-02-18 Screening for University of Test 00:00:00 malignant neoplasm [place] [facility] of colon (procedure) Branch [code = 643891521] Future Scheduled 2031-02-18 Screening for University of Test 00:00:00 malignant neoplasm [place] [facility] of colon (procedure) Branch [code = 666474501] Future Scheduled 2031-02-18 Screening for University of Test 00:00:00 malignant neoplasm [place] [facility] ical of colon (procedure) Branch [code = 241897847] Future Scheduled 2031-02-18 Screening for University of Test 00:00:00 malignant neoplasm [place] [facility] ical of colon (procedure) Branch [code = 660242494] Future Scheduled 2031-02-18 Screening for University of Test 00:00:00 malignant neoplasm [place] [facility] ical of colon (procedure) Branch [code = 968237296] Future Scheduled 2031-02-18 Screening for University of Test 00:00:00 malignant neoplasm [place] [facility] ical of colon (procedure) Branch [code = 457126691] Future Scheduled 2029-05-31 DTaP,Tdap,and Td Univers ity of Test 00:00:00 Vaccines (2 - Td) [place] [facility] john[facility] [code = Branch DTaP,Tdap,and Td Vaccines (2 - Td)] Future Scheduled 2029-05-31 DTaP,Tdap,and Td Univers ity of Test 00:00:00 Vaccines (2 - Td) [place] [facility] [code = Branch DTaP,Tdap,and Td Vaccines (2 - Td)] Future Scheduled 2029-05-31 DTaP,Tdap,and Td Univers ity of Test 00:00:00 Vaccines (2 - Td) [place] [facility] [code = Branch DTaP,Tdap,and Td Vaccines (2 - Td)] Future Scheduled 2029-05-31 DTaP,Tdap,and Td Univers ity of Test 00:00:00 Vaccines (2 - Td) [place] [facility] john[facility] [code = Branch DTaP,Tdap,and Td Vaccines (2 - Td)] Future Scheduled 2022-03-29 Depression screening Uni versity of Test 00:00:00 (procedure) [code = [facility] dical [id number]] Branch Future Scheduled 2022-03-29 Depression screening Uni versity of Test 00:00:00 (procedure) [code = [facility] dical 589708228] Branch Future Scheduled 2022-03-24 Creatinine University of Test 00:00:00 measurement [place] [facility] (procedure) [code = Branch 79739653] Future Scheduled 2022-03-24 Creatinine University [facility] Test 00:00:00 measurement [place] [facility] (procedure) [code = Branch 76671720] Future Scheduled 2022-03-24 Creatinine University [facility] Test 00:00:00 measurement [place] [facility] (procedure) [code = Branch 74204573] Future Scheduled 2022-03-24 Creatinine University of Test 00:00:00 measurement [place] [facility] (procedure) [code = Branch [id number]] Future Scheduled 2022-03-14 Microalbumin University of Test 00:00:00 measurement, urine, [place] [facility] quantitative Branch (procedure) [code = 398563444] Future Scheduled 2022-03-14 Microalbumin University of Test 00:00:00 measurement, urine, [place] [facility] d[facility] quantitative Branch (procedure) [code = 932813091] Future Scheduled 2022-03-14 Microalbumin University of Test 00:00:00 measurement, urine, [place] [facility] d[facility] quantitative Branch (procedure) [code = 114449876] Future Scheduled 2022-03-14 Microalbumin University of Test 00:00:00 measurement, urine, [place] [facility] d[facility] quantitative Branch (procedure) [code = 525201076] Future Scheduled 2022-03-01 Calculated low Universit y of Test 00:00:00 density lipoprotein [place] Me dical cholesterol level Branch (procedure) [code = 741212841] Future Scheduled 2022-03-01 Calculated low Universit y of Test 00:00:00 density lipoprotein [place] Me dical cholesterol level Branch (procedure) [code = 128049594] Future Scheduled 2022-03-01 Calculated low Universit y of Test 00:00:00 density lipoprotein [place] Me dical cholesterol level Branch (procedure) [code = 390946140] Future Scheduled 2022-03-01 Calculated low Universit y of Test 00:00:00 density lipoprotein [place] Me dical cholesterol level Branch (procedure) [code = 639807834] Future Scheduled 2022-02-18 Depression screening Uni versity of Test 00:00:00 (procedure) [code = [facility] dical 958781694] Branch Future Scheduled 2022-02-18 Depression screening Uni versity of Test 00:00:00 (procedure) [code = [place] [facility] dical 123890958] Branch Future Scheduled 2022-02-12 Screening for University of Test 00:00:00 malignant neoplasm [place] [facility] of lung (procedure) Branch [code = 160624869] Future Scheduled 2022-02-12 Screening for University of Test 00:00:00 malignant neoplasm [place] [facility] ical of lung (procedure) Branch [code = 500401677] Future Scheduled 2022-02-12 Screening for University of Test 00:00:00 malignant neoplasm [place] [facility] ical of lung (procedure) Branch [code = 841070001] Future Scheduled 2022-02-12 Screening for University of Test 00:00:00 malignant neoplasm [place] [facility] ical of lung (procedure) Branch [code = 428915497] Future Scheduled 2021-08-31 Hemoglobin A1c Universit y of Test 00:00:00 measurement [place] [facility] (procedure) [code = Branch 98646892] Future Scheduled 2021-08-31 Hemoglobin A1c Universit y of Test 00:00:00 measurement [place] [facility] (procedure) [code = Branch 22392649] Future Scheduled 2021-08-31 Hemoglobin A1c Universit y of Test 00:00:00 measurement [place] [facility] (procedure) [code = Branch [id number]] Future Scheduled 2021-08-31 Hemoglobin A1c Universit y of Test 00:00:00 measurement [place] [facility] (procedure) [code = Branch [id number]] Diagnostic Test 2021-03-28 COVID-19 (ID NOW Expected: Universi ty of Pending 00:00:00 RAPID TESTING) [code 03/28/2021, [facility] edical = 07080-7] Expires: Branch 03/28/2022 Future Scheduled 2020-03-21 Examination of Universit y of Test 00:00:00 retina (procedure) [place] [facility] ical [code = 147501140] Branch Future Scheduled 2020-03-21 Examination of Universit y of Test 00:00:00 retina (procedure) [place] [facility] ical [code = 367712207] Branch Future Scheduled 2020-03-21 Examination of Universit y of Test 00:00:00 retina (procedure) [place] [facility] ical [code = 415784521] Branch Future Scheduled 2020-03-21 Examination of Universit y of Test 00:00:00 retina (procedure) [place] [facility] ical [code = 327234941] Branch Future Scheduled 2011 Screening for occult Uni versity of Test 00:00:00 blood in feces [place] [facility] (procedure) [code = Branch 339669053] Future Scheduled 2011 Stool DNA-based Universi ty of Test 00:00:00 colorectal cancer [facility] [place] screening Branch (procedure) [code = 320023503366533] Future Scheduled 2011 Flexible fiberoptic Univ ersity of Test 00:00:00 sigmoidoscopy [place] [facility] (procedure) [code = Branch 46277666] Future Scheduled 2011 Screening for occult Uni versity of Test 00:00:00 blood in feces [place] [facility] (procedure) [code = Branch 569352979] Future Scheduled 2011 Stool DNA-based Universi ty of Test 00:00:00 colorectal cancer [facility] [place] screening Branch (procedure) [code = 230814449333504] Future Scheduled 2011 Flexible fiberoptic Univ ersity of Test 00:00:00 sigmoidoscopy [place] [facility] (procedure) [code = Branch 11959438] Future Scheduled 2011 Screening for occult Uni versity of Test 00:00:00 blood in feces [place] [facility] (procedure) [code = Branch 383127181] Future Scheduled 2011 Stool DNA-based Universi ty of Test 00:00:00 colorectal cancer [facility] [place] screening Branch (procedure) [code = 961182763755541] Future Scheduled 2011 Flexible fiberoptic Univ ersity of Test 00:00:00 sigmoidoscopy [facility] (procedure) [code = Branch 27609295] Future Scheduled 2011 Screening for occult Uni versity of Test 00:00:00 blood in feces [facility] (procedure) [code = Branch 898472773] Future Scheduled 2011 Stool DNA-based Universi ty of Test 00:00:00 colorectal cancer [facility] [place] screening Branch (procedure) [code = 994969080538237] Future Scheduled 2011 Flexible fiberoptic Univ ersity of Test 00:00:00 sigmoidoscopy [facility] (procedure) [code = Branch 76528005] Future Scheduled 1979 Diabetic foot University of Test 00:00:00 examination [place] [facility] (regime/therapy) Branch [code = 530752675] Future Scheduled 1979 Diabetic foot University of Test 00:00:00 examination [place] [facility] (regime/therapy) Branch [code = 658958583] Future Scheduled 1979 Diabetic foot University of Test 00:00:00 examination [place] [facility] (regime/therapy) Branch [code = 501533959] Future Scheduled 1979 Diabetic foot University of Test 00:00:00 examination [place] [facility] (regime/therapy) Branch [code = 986732233] Future Scheduled 1967 PNEUMOCOCCAL 0-64 Univer sity of Test 00:00:00 YEARS COMBINED [place] [facility] SERIES (1 of 3 - Branch PCV13) [code = PNEUMOCOCCAL 0-64 YEARS COMBINED SERIES (1 of 3 - PCV13)] Future Scheduled 1966 PNEUMOCOCCAL 0-64 Univer sity of Test 00:00:00 YEARS COMBINED [place] [facility] SERIES (1 of 3 - Branch PCV13) [code = PNEUMOCOCCAL 0-64 YEARS COMBINED SERIES (1 of 3 - PCV13)] Future Scheduled 1966 PNEUMOCOCCAL 0-64 Univer sity of Test 00:00:00 YEARS COMBINED [place] [facility] SERIES (1 of 3 - Branch PCV13) [code = PNEUMOCOCCAL 0-64 YEARS COMBINED SERIES (1 of 3 - PCV13)] Future Scheduled 1966 PNEUMOCOCCAL 0-64 Univer sity of Test 00:00:00 YEARS COMBINED [place] [facility] SERIES (1 of 3 - Branch PCV13) [code = PNEUMOCOCCAL 0-64 YEARS COMBINED SERIES (1 of 3 - PCV13)] Future Scheduled SURGICAL PATHOLOGY Release Upon Unive rsity of Test EXAM [code = 39673] Ordering for 1 [facility] Branch starting 03/29/2021 Future Scheduled COVID-19 (ID NOW Univers ity of Test RAPID TESTING) [code [facility] edical = 79468-7] Branch Encounters Start End Encounter Admission Attending Care Care Encounter Source Date/Time Date/Time Type Type Clinicians Facility Department ID 2022-12-19 Emergency X [facility] [id number] Univers 04:14:24 ity of [facility] 2022-08-20 Emergency [facility] [id number] Univers 13:32:03 ity of [facility] 2022-06-30 Outpatient R ARIE [employer] [facility] [id number] Univers 10:18:42 ARIE [facility] ity of [facility] 2021-09-24 Emergency [facility] [id number] Univers 01:29:29 ity of [facility] 2021-09-23 Emergency [facility] [id number] Univers 07:21:27 ity of [facility] 2021-09-23 Emergency [facility] [id number] Univers 04:05:28 ity of [facility] 2021-09-23 Emergency [facility] [id number] Univers 00:53:47 ity of [facility] 2021-09-22 Emergency [facility] [id number] Univers 16:35:08 ity of [facility] 2021-09-22 [facility]patient [facility] [id number] Univers 15:24:31 FAHAD ity of [facility] 2021-09-22 Emergency [facility] [id number] Univers 13:38:59 ity of [facility] 2021-09-22 Outpatient [facility] [id number] Univers 12:37:55 FAHAD ity of [facility] 2021-09-22 Emergency [facility] [id number] Univers 11:56:46 ity of [facility] 2021-09-22 Emergency [facility] [id number] Univers 09:56:23 ity of [facility] 2021-09-22 Outpatient R KIRSTENAWILDA [facility] VEDA [id number] Univers 05:18:18 FERNANDA ity of [facility] 2021-09-22 Emergency [facility] [id number] Univers 04:36:08 ity of [facility] 2021-09-21 Emergency [facility] [id number] Univers 22:11:33 ity of [facility] 2021-09-21 Emergency [facility] [id number] Univers 21:42:27 ity of [facility] 2021-09-21 Emergency [facility] [id number] Univers 19:06:20 ity of [facility] 2021-09-21 Emergency [facility] [id number] Univers 13:04:31 ity of [facility] 2021-09-21 Emergency [facility] [id number] Univers 00:13:30 ity of [facility] 2021-09-19 Emergency [facility] [id number] Univers 22:45:26 ity of [facility] 2021-09-19 Inpatient R ISABELANDREI [facility] JOSE DANIEL [id number] Univers 19:17:51 ity of [facility] 2021-09-19 Emergency [facility] [id number] Univers 15:57:32 ity of [facility] 2023-01-15 2023-01-15 Outpatient R CHRIS [facility] [id number] Univers 09:40:00 09:40:00 AMANDA ity [facility] 2022-12-25 2022-12-25 Outpatient R KERRY, [facility] [id number] Univers 16:00:00 16:00:00 SORAIDARODGER karlay o f [facility] 2022-12-17 2022-12-17 Outpatient R KERRY, [facility] [id number] Univers 09:00:00 09:04:49 KIRK acostay o f [facility] 2022-12-17 2022-12-17 Office Kerry, [facility] 1.2.840.114 [id number] Univers 09:00:00 09:04:49 Visit Kirk MENA 350.1.13.10 ity of [facility] [place] [id number] Ms dical JUAN [address] [facility] 2022-12-15 2022-12-15 Emergency X [facility] ERT [id number] Univers 21:14:00 23:46:00 [facility] 2022-12-15 Emergency [facility] 1.2.663.275 [id number] Univers 21:14:00 23:46:00 Sera MATATON 350.1.13.10 ity of [place].2.7.2.686 [place] [phone] [facility] [address] 2022-12-12 2022-12-12 Telephone [facility] 1.2.990.209 [id number] Univers 00:00:00 00:00:00 Critical access hospital 350.1.13.10 ity of [place] 4.2.7.2.686 Casey as PAUL?BLEA [phone] Ms alyfrankie COLEENKATHIE [address] MEDICAL OFFICE [facility] 2022-12-04 2022-12-04 Outpatient R [facility] [id number] Univers 14:40:00 15:32:22 [facility] 2022-12-04 2022-12-04 Office [facility] 1.2.840.114 [id number] Univers 14:40:00 15:32:22 Visit Critical access hospital 350.1.13.10 ity of [place] 4.2.7.2.686 Casey as PAUL?BLEA [phone] Ms alyfrankie GOMES [address] MEDICAL OFFICE [facility] 2022-12-03 2022-12-03 Emergency X [facility] ERT [id number] Univers 19:09:00 23:06:00 [facility] 2022-12-03 2022-12-03 Emergency [facility] 1.2.964.116 [id number] Univers 19:09:00 23:06:00 Sera [place] 350.1.13.10 ity of [facility] 4.2.7.2.[place] [id number] [address] 2022-11-27 2022-11-27 Refill [facility] 1.2.840.114 [id number] Univers 00:00:00 00:00:00 Critical access hospital 350.1.13.10 ity [facility] 4.2.7.2.686 [place] as PAUL?BLEA [phone] Ms jae GOMES [address] MEDICAL OFFICE BUILDING 2022-11-26 2022-11-26 Emergency X [facility] ERT [id number] Univers 17:24:00 21:13:00 [facility] 2022-11-26 2022-11-26 Emergency [facility] 1.2.840.567 [id number] Univers 17:24:00 21:13:00 Anupama S [place] 350.1.13.10 i [facility] 4.2.7.2.686 [facility] [phone] [address] 2022-11-26 2022-11-26 Outpatient [facility] [id number] Univers 09:00:00 09:00:00 [facility] 2022-11-26 2022-11-26 [facility] [id number] Univers 09:00:00 09:00:00 [facility] 2022-11-26 2022-11-26 [facility] [id number] Univers 09:00:00 09:00:00 [facility] 2022-11-24 2022-11-24 [facility] 1.2.840.114 [id number] Univers 00:00:00 00:00:00 Critical access hospital [facility].1.13.[address] [facility] 4.2.7.2.686 [place] as PAUL?BLEA [phone] Ms jae GOMES [address] MEDICAL OFFICE [facility] 2022-11-24 2022-11-24 Patient [facility] 1.2.840.114 [id number] Univers 00:00:00 00:00:00 Secure Msg Amanda HEALTH 350.1.13.10 ity of [place] 4.2.7.2.686 Casey as PAUL?BLEA [phone] Ms jae GOMES 044 [facility] OFFICE BUILDING 2022-11-21 2022-11-21 Patient [facility] 1.2.840.114 [id number] Univers 00:00:00 00:00:00 Secure Msg Amanda [place] 350.1.13.10 ity of [place].2.7.2.[place] [phone] Ms jae MARTINEZ [address] [facility] 2022-11-19 2022-11-19 Refill [facility] 1.2.840.114 [id number] Univers 00:00:00 00:00:00 Amanda HEALTH 350.1.13.10 ity of [place] 4.2.7.2.686 Casey as PAUL?BLEA [id number] Ms jae GOMES 044 [facility] OFFICE [facility] 2022-11-18 2022-11-18 Patient [facility] 1.2.972.782 [id number] Univers 00:00:00 00:00:00 Secure Msg Yahaira H HEALTH 350.1.13.10 ity of [place] 4.2.7.2.686 Casey as PAUL?BLEA [id number] Ms jae GOMES 220 [facility] OFFICE BUILDING 2022-11-18 2022-11-18 Patient [facility] 1.2.840.114 [id number] Univers 00:00:00 00:00:00 Secure Msg [facility] HEALTH 350.1.13.10 ity of [place].2.[place] [phone] [place] [address] [address] OFFICE BUILDING 2022-11-15 2022-11-15 Patient Katie [facility] 1.2.744.060 [id number] Univers 00:00:00 00:00:00 Secure Msg Yahaira H HEALTH 350.1.13.10 ity of [place] 4.2.7.2.686 Casey as PAUL?BLEA [id number] Ms dical KNEY [address] MEDICAL OFFICE BUILDING 2022-11-14 2022-11-14 Patient Kerry [facility] 1.2.840.114 [id number] Univers 00:00:00 00:00:00 Secure Msg Kirk [facility] 350.1.13.10 ity of [facility] 4.2.7.2.[place] [phone] Me dical NAL [address] [facility] 2022-11-14 2022-11-14 Telephone [facility] 1.2.840.114 [id number] Univers 00:00:00 00:00:00 Yahaira H HEALTH 350.1.13.10 it y of [place] 4.2.7.2.686 Casey as PAUL?BLEA [id number] Ms dical ELISEO [address] MEDICAL OFFICE [facility] 2022-11-13 2022-11-13 Patient [facility] 1.2.840.114 [id number] Univers 00:00:00 00:00:00 Secure Msg Amanda HEALTH 350.1.13.10 ity of [place] 4.2.7.2.686 Casey as PAUL?BLEA [phone] Ms dical ELISEO [address] MEDICAL OFFICE [facility] 2022-11-12 2022-11-12 Patient [facility] 1.2.840.114 [id number] Univers 00:00:00 00:00:00 Secure Msg Amanda HEALTH 350.1.13.10 ity of [place] 4.2.7.2.686 Casey as PAUL?BLEA [phone] Ms dical ELISEO [address] MEDICAL OFFICE [facility] 2022-11-11 2022-11-11 [facility] ISRAEL [place] 1.2.840.114 [id number] Univers 09:29:00 23:59:00 Encounter Shefali Evans 350.1.13.10 ity of [facility] 4.2.7.2.686 Casey as [id number] [address] 2022-11-11 2022-11-11 Outpatient R DOMITILA [facility] ACO [id number] Univers 00:00:00 23:59:00 SHEFALI adkins [facility] 2022-11-10 2022-11-10 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, Chinedu Lab Main [facility] 1.2.8 40.114 [id number] Univers 09:00:00 09:15:00 Visit Amanda Perez 350.1.13.10 ity of [facility] 4.2.7.2.[address] [address] [phone] Ms dical JUAN [address] [facility] 2022-11-10 2022-11-10 Outpatient R CHRIS [facility] [id number] Univers 09:00:00 09:00:00 AMANDA ity [facility] 2022-11-10 2022-11-10 Telephone [facility] 1.2.840.114 [id number] Univers 00:00:00 00:00:00 Yahaira [facility] 350.1.13.10 it y of [place] 4.2.7.2.686 Csaey as PAUL?BLEA [id number] Ms dicfrankie GOMES [address] MEDICAL OFFICE [facility] 2022-11-10 2022-11-10 Orders Doctor RASHAD 1.2.840.114 [id number] Univers 00:00:00 00:00:00 Only Unassigned, YONY 350.1.13.10 ity of [place] [facility] 4.2.7.2.686 Casey as [phone] [facility] [address] 2022-11-07 2022-11-07 Hospital [facility] 1.2.840.114 [id number] Univers 16:58:50 23:59:00 Encounter Amanda MENA 350.1.13.10 ity of [place] 4.2.7.2.686 [place] [phone] [facility] [address] 2022-11-07 2022-11-07 Office [facility] 1.2.840.114 [id number] Univers 16:20:00 16:34:59 Visit Critical access hospital 350.1.13.10 ity of [place] 4.2.7.2.686 Casey as PAUL?BLEA [phone] Ms dical ELISEO [address] MEDICAL OFFICE BUILDING 2022-11-06 2022-11-07 Emergency X PARADISE [facility] ERT [id number] Univers 23:27:00 03:20:00 SERA adkins [facility] 2022-11-06 2022-11-07 Emergency [facility] 1.2.002.085 [id number] Univers 23:27:00 03:20:00 Sera MENA 350.1.13.10 ity of [facility] 4.2.7.2.686 [place] [id number] [address] 2022-11-07 2022-11-07 Outpatient R [facility] [id number] Univers 00:00:00 00:00:00 AMANDA sarahi [facility] 2022-11-06 2022-11-06 Patient [facility] 1.2.840.114 [id number] Univers 00:00:00 00:00:00 Secure Ms Amanda HEALTH 350.1.13.10 ity of [place] 4.2.7.2.686 Casey as PAUL?BLEA [phone] [address] OFFICE [facility] 2022-11-06 2022-11-06 Letter [facility] 1.2.840.114 [id number] Univers 00:00:00 00:00:00 (Out) Amanda HEALTH 350.1.13.10 ity of [place] 4.2.7.2.686 Casey as PAUL?BLEA [phone] [facility] 044 [facility] OFFICE [facility] 2022-11-03 2022-11-03 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 Chinedu Pritchett Lab Main [facility] 1.2.8 40.114 [id number] Univers 16:15:00 16:30:00 Visit Amanda Perez 350.1.13.10 ity of [facility] 4.2.7.2.[place] [id number] [facility] [address] [facility] 2022-11-03 2022-11-03 Outpatient R [facility] [id number] Univers 14:40:00 15:40:43 AMANDA [facility] 2022-11-03 2022-11-03 Office [facility] 1.2.840.114 [id number] Univers 14:40:00 15:40:43 Visit Critical access hospital 350.1.13.10 ity of [facility] 4.2.7.2.686 Casey as PAUL?BLEA [phone] Ms jae GOMES 044 [facility] OFFICE [facility] 2022-11-03 2022-11-03 Xiao [facility]TOHATCHI [facility] 1.2.840.114 [id number] Univers 00:00:00 00:00:00 (Out) Critical access hospital 350.1.13.10 ity of [facility] 4.2.7.2.686 Casey as PAUL?BLEA [phone] Ms dicfrankie [facility] 044 [facility] OFFICE [facility] 2022-10-28 2022-10-28 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, Chinedu Lab Main [facility] 1.2.8 40.114 [id number] Univers 13:45:00 14:00:00 Visit Sarah Crawford [place] 350.1.13.10 ity of [place] 4.2.7.2.686 [place] [phone] Ms jae [facility] [address] [facility] 2022-10-28 2022-10-28 Outpatient R TY [facility] [id number] Univers 13:45:00 13:45:00 SARAH [facility] 2022-10-28 2022-10-28 Outpatient [facility] [id number] Univers 09:40:00 09:40:00 [facility] 2022-10-28 2022-10-28 Orders Doctor KIRKLAND 1.2.840.114 [id number] Univers 00:00:00 00:00:00 Only Unassigned, YONY 350.1.13.10 ity of [place] [facility] 4.2.7.2.686 Casey as [phone] [address] 2022-10-27 2022-10-27 Outpatient R TY [facility] [id number] Univers 08:30:00 08:30:00 SARAH ity [facility] 2022-10-20 2022-10-20 Outpatient R [facility] [id number] Univers 13:30:00 13:30:00 ity [facility] 2022-10-182022-10-18 Refill [facility] 1.2.840.114 [id number] Univers 00:00:00 00:00:00 Deyanira Yang HEALTH 350.1.13.10 i ty of [place] 4.2.7.2.686 Casey as PAUL?BLEA [phone] Ms jae GOMES [address] MEDICAL OFFICE [facility] 2022-10-15 2022-10-15 Telephone [facility] 1.2.840.114 [id number] Univers 00:00:00 00:00:00 Sarah MULTISPEC 350.1.13.10 ity of [place].2.686 [place] [phone] [facility] AND [address] DIABETES CLINIC 2022-10-13 2022-10-13 Outpatient Otis PEREZ [facility] [id number] Univers 09:40:00 09:40:00 AMANDA [facility] 2022-10-10 2022-10-10 Transition DANIA Stewart 1.2.840.114 [id number] Univers 00:00:00 00:00:00 of Care Marj MCCLELL[place] 350.1.13.10 i ty of [place] 4.2.7.2.686 [place] [id number] [facility] [address] 2022-10-07 2022-10-09 Outpatient X CHARLES JO ANN [facility] JOSE DANIEL [id number] Univers 15:30:00 13:52:00 JO ANN SOTO [facility] 2022-10-07 2022-10-07 Outpatient R YASH [facility] [id number] Univers 14:45:00 15:26:49 GEOVANI [facility] 2022-10-07 2022-10-07 Nurse Nurse, [facility] 1.2.840.114 [id number] Univers 14:45:00 15:05:00 Visit Unknown, Attending HEALTH 350.1.13.10 ity of [place] 4.2.7.2.686 Casey as PAUL?BLEA [phone] Ms alyfrankie GOMES [address] MEDICAL OFFICE [facility] 2022-10-01 2022-10-01 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, Fernando Tolentino Db [facility] 1.2.840.1 14 [id number] Univers 09:00:00 09:15:00 Visit Chris Critical access hospital 350.1.13.10 ity of [place] 4.2.7.2.686 Casey as PAUL?BLEA [phone] [facility] [address] MEDICAL OFFICE [facility] 2022-10-01 2022-10-01 Outpatient R [facility] [id number] Univers 09:00:00 08:53:36 [facility] 2022-09-30 2022-09-30 Refill [facility] 1.2.840.114 [id number] Univers 00:00:00 00:00:00 [facility] 350.1.13.10 it y of [facility] 4.2.7.2.686 Casey as PAUL?BLEA [id number] [facility] 0[address] [facility] OFFICE [facility] 2022-09-29 2022-09-29 Outpatient R [facility] [id number] Univers 09:20:00 10:14:31 [facility] 2022-09-29 2022-09-29 Office [facility] 1.2.840.114 [id number] Univers 09:20:00 10:14:31 Visit Critical access hospital 350.1.13.10 ity of [place] 4.2.7.2.686 Casey as PAUL?BLEA [phone] [address] OFFICE [facility] 2022-09-24 2022-09-24 Transition DANIA Stewart 1.2.840.114 [id number] Univers 00:00:00 00:00:00 of Care Mraj L [place] 350.1.13.10 i ty of [place].2.[place] [id number] [address] 2022-09-22 2022-09-23 Outpatient X AMANDA [facility] KAYKAY [id number] Univers 13:43:00 16:26:00 SHAD [facility] 2022-09-22 2022-09-23 Emergency Jean Ramírez [facility] 1.2.840.1 14 [id number] Univers 13:43:00 16:26:00 Shad العلي [place] 350.1.13.10 ity of [place] 4.2.7.2.686 [place] [id number] [place] [address] 2022-09-23 2022-09-23 Refill Jose [facility] 1.2.840.114 [id number] Univers 00:00:00 00:00:00 Deyanira Yang HEALTH 350.1.13.10 i ty of [place] 4.2.7.2.686 Casey as PAUL?BLEA [id number] [facility] 0[address] [facility] OFFICE [facility] 2022-09-22 2022-09-22 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, Fernando - Anuel [facility] 1.2.840.1 14 [id number] Univers 08:45:00 08:48:54 Visit Chris Amanda [facility] 350.1.13.10 ity of [place] 4.2.7.2.686 Casey as PAUL?BLEA [id number] [facility] 353 [facility] OFFICE [facility] 2022-09-22 2022-09-22 Outpatient R [facility] [id number] Univers 08:00:00 08:39:38 [facility] 2022-09-22 2022-09-22 Office [facility] 1.2.840.114 [id number] Univers 08:00:00 08:39:38 Visit Critical access hospital 350.1.13.10 ity [facility] 4.2.7.2.686 Casey as PAUL?BLEA [id number] [address] OFFICE [facility] 2022-09-19 2022-09-19 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 Testing, [facility] Pulmonary Func tion [facility] 1.2.840.114 [id number] Univers 08:00:00 09:17:58 Visit Pk Olea HEALTH 350.1.13.[address] [facility] 4.2.7.2.[place] [id number] [address] 2022-09-19 2022-09-19 Outpatient R PK OLEA [facility] 10 [id number] Univers 08:00:00 08:00:00 PK OLEA i ty of [facility] 2022-09-19 2022-09-19 Orders JHON OleaIT 1.2.570.559 [id number] Univers 00:00:00 00:00:00 Only Shilizajit Y HEALTH 350.1.13.10 i ty of CL[place] 4[place]2.7.2.[place] [id number] [facility] [address] 2022-09-16 2022-09-16 Refill Kerry [facility] 1.2.840.114 [id number] Univers 00:00:00 00:00:00 Kirk [place] 350.1.13.10 ity of [place] 4.2.7.2.686 [place] [phone] [facility] [address] [facility] 2022-09-16 2022-09-16 Refill Doctor [facility] 1.2.840.114 [id number] Univers 00:00:00 00:00:00 Unassigned, HEALTH 350.1.13.10 ity of [place] 4.2.7.2.686 Casey as PAUL?BLEA [phone] [address] MEDICAL OFFICE BUILDING 2022-09-16 2022-09-16 Refill Jose [facility] 1.2.840.114 [id number] Univers 00:00:00 00:00:00 Deyanira A HEALTH 350.1.13.10 i ty of [place] 4.2.7.2.686 Casey as PAUL?BLEA [id number] [facility] [address] MEDICAL OFFICE BUILDING 2022-09-16 2022-09-16 Refill Ty [facility] 1.2.519.801 [id number] Univers 00:00:00 00:00:00 Sarah MULTISPEC 350.1.13.10 ity of [place] [id number] [facility] [place] [address] [address] [facility] 2022-09-16 2022-09-16 Patient Chris, [facility] 1.2.840.114 [id number] Univers 00:00:00 00:00:00 [facility] 350.1.13.10 ity of [place] 4.2.7.2.686 Casey as PAUL?BLEA [phone] Ms jae GOMES [address] MEDICAL OFFICE BUILDING 2022-09-16 2022-09-16 Refflores [place] [facility] 1.2.840.114 [id number] Univers 00:00:00 00:00:00 [facility] 350.1.13.10 ity of [place].2.[place] [id number] [facility] [address] OFFICE BUILDING 2022-09-16 2022-09-16 Orders Doctor RASHAD 1.2.840.114 [id number] Univers 00:00:00 00:00:00 Only Unassigned, YONY 350.1.13.10 ity of [place] [facility] 4.2.7.2.686 Casey as [phone] [address] 2022-09-15 2022-09-15 Outpatient R PK OLEA [facility] 10 [id number] Univers 11:45:00 12:08:28 PK OLEA i ty of [facility] 2022-09-15 2022-09-15 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, 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 [facility] 1.2.840.114 [id number] Univers 11:45:00 12:08:28 Visit Pk Olea 350.1.13.10 [place] [phone] Ms alyfrankie NAL [address] [facility] 2022-09-15 2022-09-15 Office Isma [facility] 1.2.840.114 [id number] Univers 11:00:00 11:24:54 Visit Pk MENA 350.1.13.10 i ty [facility] [place] [phone] Ms alyfrankie NAL [address] [facility] 2022-09-15 2022-09-15 Telephone Delroy [facility] 1.2.384.784 [id number] Univers 00:00:00 00:00:00 [facility] 350.1.13.10 it [facility] 4.2.7.2.686 Casey as PAUL?BLEA [phone] Ms jae GOMES [address] MEDICAL OFFICE [facility] 2022-09-12 2022-09-12 [facility] [id number] Univers 15:20:00 15:50:52 [facility] 2022-09-12 2022-09-12 Office [facility] 1.2.840.114 [id number] Univers 15:20:00 15:50:52 Visit Critical access hospital 350.1.13.10 ity [facility] 4.2.7.2.686 [place] as PAUL?BLEA [phone] [facility] [address] [facility] OFFICE [facility] 2022-09-11 2022-09-11 Outpatient R JENNI [facility] [id number] Univers 12:30:00 12:30:00 [facility] 2022-09-09 2022-09-09 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 4.2.7.2.686 [place] as PAUL?BLEA [phone] [facility] [address] [facility] OFFICE [facility] 2022-09-09 2022-09-09 Outpatient [facility] [id number] Univers 08:00:00 08:00:00 [facility] 2022-09-08 2022-09-08 Outpatient R [facility] [id number] Univers 15:20:00 16:01:16 [facility] 2022-09-08 2022-09-08 Office [facility] 1.2.840.114 [id number] Univers 15:20:00 16:01:16 Visit Critical access [facility].13.[address] [facility] 4.2.7.2.686 Casey as PAUL?BLEA [phone] [facility] [address] MEDICAL OFFICE [facility] 2022-09-06 2022-09-06 [facility] 1.2.840.114 [id number] Univers 17:54:08 23:59:00 Encounter [facility] 350.1.13.10 ity of [place] 4.2.7.2.686 Casey as PAUL?BLEA [phone] Ms jae GOMES [address] MEDICAL OFFICE [facility] 2022-09-06 2022-09-06 Outpatient R CLIVE [facility] [id number] Univers 17:20:00 18:35:12 KAYLEE sarahi [facility] 2022-09-06 2022-09-06 Urgent Clive [facility] 1.2.840.114 [id number] Univers 17:20:00 18:35:12 Care Unknown, Attending HEALTH 350.1.13.10 ity of [place] 4.2.7.2.686 Casey as PAUL?BLEA [id number] Ms jae GOMES 370 [facility] 2022-09-04 2022-09-04 Outpatient R PK OLEA [facility] [id number] Univers 13:00:00 13:00:00 PK OLEA i [facility] 2022-09-02 2022-09-02 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, Ang - [facility] 1.2.840.1 14 [id number] Univers 09:30:00 09:45:00 Visit Yahaira Wilson [facility] 350.1.13.10 ity of [place] 4.2.7.2.686 Casey as PAUL?BLEA [id number] Ms jae OGMES 353 [facility] 2022-09-02 2022-09-02 Outpatient R KATIE [facility] [id number] Univers 09:30:00 09:30:00 YAHAIRA adkins [facility] 2022-09-01 2022-09-02 Emergency X [facility] ERT [id number] Univers 21:20:00 01:01:00 SOPHIE adkins [facility] 2022-09-01 2022-09-02 Emergency [facility] 1.2.840.114 [id number] Univers 21:20:00 01:01:00 Sophie [facility] 350.1.13.10 ity of [place] 4.2.7.2.686 [place] [facility] [phone] [facility] [address] 2022-09-02 2022-09-02 Telephone [facility] 1.2.730.244 [id number] Univers 00:00:00 00:00:00 Kirk MENA 350.1.13.10 ity of [facility] 4.2.7.2.686 [place] [phone] Ms dicsd NAL [address] [facility] 2022-09-01 2022-09-01 Telephone [facility] 1.2.484.071 [id number] Univers 00:00:00 00:00:00 Pk MENA 350.1.13.10 i ty of [place] 4.2.7.2.686 [place] [phone] [facility] 0[address] [facility] 2022-08-29 2022-08-29 Outpatient R [facility] [id number] Univers 14:00:00 15:00:26 YAHAIRA adkins [facility] 2022-08-29 2022-08-29 Office [facility] 1.2.836.689 [id number] Univers 14:00:00 15:00:26 Visit Yahaira [facility] 350.1.13.10 it y of [place] 4.2.7.2.686 Casey as PAUL?BLEA [phone] [facility] [address] [facility] OFFICE [facility] 2022-08-29 2022-08-29 Orders Doctor RASHAD 1.2.840.114 [id number] Univers 00:00:00 00:00:00 Only Unassigned, YONY 350.1.13.10 ity of [place] [facility] 4.2.7.2.686 Casey as [phone] [facility] [address] 2022-08-28 2022-08-28 Patient Giuliano [facility] 1.2.840.114 [id number] Univers 00:00:00 00:00:00 Secure Msg Jaycee Schaefer HEALTH 350.1.13.10 ity of [place] 4.2.7.2.686 Casey as PAUL?BLEA [phone] [facility] [address] MEDICAL OFFICE [facility] 2022-08-28 2022-08-28 Telephone Arie [facility] 1.2.840.114 [id number] Univers 00:00:00 00:00:00 [facility] 350.1.13.10 ity of [place] 4.2.7.2.686 [place] [phone] [facility] [address] OFFICE BUILDING 2022-08-27 2022-08-27 Outpatient [facility] [id number] Univers 12:30:00 12:30:00 DEYANIRA [facility] 2022-08-26 2022-08-26 [facility] [id number] Univers 07:25:24 23:59:00 [facility] 2022-08-26 2022-08-26 [facility] 1.2.840.114 [id number] Univers 07:25:24 23:59:00 Encounter [facility] 350.1.13.10 ity of CLINICS 4.2.7.2.686 [place] [id number] [facility] [address] 2022-08-24 2022-08-24 Emergency X MORRICAL, [facility] ERT [id number] Univers 18:57:00 21:55:00 DANIEL [facility] 2022-08-24 2022-08-24 Emergency Morrical, [facility] 1.2.840.114 [id number] Univers 18:57:00 21:55:00 Daniel MENA 350.1.13.10 ity of [place] 4.2.7.2.686 [place] [id number] [facility] [address] 2022-08-24 2022-08-24 Outpatient R [facility] [id number] Univers 18:20:00 18:36:04 [facility] 2022-08-24 2022-08-24 Urgent [facility] 1.2.721.786 [id number] Univers 18:20:00 18:36:04 Care [facility] 350.1.13.10 it y of [place] 4.2.7.2.686 Casey as PAUL?BLEA [id number] Ms jae GOMES [address] MEDICAL OFFICE BUILDING 2022-08-22 2022-08-22 Outpatient R JOSE, [facility] [id number] Univers 11:00:00 12:30:50 DEYANIRA itsarahi [facility] 2022-08-22 2022-08-22 Office [facility] 1.2.840.114 [id number] Univers 11:00:00 12:30:50 Visit Deyanira A HEALTH 350.1.13.10 i ty of [facility] 4.2.7.2.686 Casey as PAUL?BLEA [phone] Ms jae HORNE [address] [facility] OFFICE BUILDING 2022-08-20 2022-08-20 Laboratory Only, Adc Test [facility] 1.2.840. 114 [id number] Univers 13:45:00 14:00:00 Only Shefali Westfall 350.1.13.10 ity of [place] 4.2.7.2.686 [place] [id number] [facility] [address] 2022-08-20 2022-08-20 Outpatient R DOMITILA [facility] [id number] Univers 13:45:00 13:45:00 SHEFALI adkins [facility] 2022-08-19 2022-08-19 Refill [facility] 1.2.840.114 [id number] Univers 00:00:00 00:00:00 Deyanira A HEALTH 350.1.13.10 i ty of [place] 4.2.7.2.686 Casey as PAUL?BLEA [id number] Ms jae GOMES [address] MEDICAL OFFICE BUILDING 2022-08-18 2022-08-18 Telephone [facility] 1.2.840.114 [id number] Univers 00:00:00 00:00:00 [facility] HEALTH 350.1.13.10 ity of [place] 4.2.7.2.686 [place] [phone] [facility] [address] OFFICE BUILDING 2022-08-18 2022-08-18 Transition DANIA Stewart 1.2.840.114 [id number] Univers 00:00:00 00:00:00 of Care Marj MCCLELLAND 350.1.13.10 i ty of [place] 4.2.7.2.686 [place] [id number] [facility] [address] 2022-08-14 2022-08-16 Inpatient X AMANDA [facility] KAYKAY [id number] Univers 18:06:00 16:42:00 SHAD ity of [facility] 2022-08-14 2022-08-16 Hospital Gold [place] [facility] 1.2.840. 114 [id number] Univers 18:06:00 16:42:00 Encounter Sahil Morales 350.1.13.10 ity of Rakancristina Shadmallory [place] 4.2.7.2.686 [facility] [phone] [facility] [address] 2022-08-13 2022-08-13 Kenton [facility] 1.2.108.980 [id number] Univers 00:00:00 00:00:00 Sarah CURRAN 350.1.13.10 ity of [place] 4.2.7.2.686 [place] CENTER [id number] [facility] AND MCCUNE [address] [facility] 2022-08-08 2022-08-08 Patient Prudenciobi [facility] 1.2.840.114 [id number] Univers 00:00:00 00:00:00 Secure Msg Fatmata SPECIALTY 350.1.13.10 ity of CARE 4.2.7.2.686 [place] CENTER AT [phone] Ms jae BRUNO [address] [place] 2022-08-02 2022-08-02 Patient Wing [facility] 1.2.840.114 [id number] Univers 00:00:00 00:00:00 Secure Msg Rania HEALTH 350.1.13.10 ity of [place] 4.2.7.2.686 Casey as PAUL?BLEA [phone] Ms jae GOMES [address] MEDICAL OFFICE BUILDING 2022-08-01 2022-08-01 Letter RASHAD Osman 1.2.840.114 [id number] Univers 00:00:00 00:00:00 (Out) Val MERCADO 350.1.13.10 it y of [facility] 4.2.7.2.686 Casey as [phone] [facility] [address] 2022-08-01 2022-08-01 Telephone Rashad [facility] 1.2.468.471 [id number] Univers 00:00:00 00:00:00 Jim SPECIALTY 350.1.13.10 ity of [facility] 4.2.7.2.686 Casey as CENTER AT [phone] Ms jae BRUNO [address] [place] [address] 2022-07-31 2022-07-31 Outpatient R WING [facility] [id number] Univers 16:20:00 16:29:27 GUILLERI ity [facility] 2022-07-31 2022-07-31 Urgent WingTOHATCHI [facility] 1.2.840.114 [id number] Univers 16:20:00 16:29:27 [facility] 350.1.13.10 it y of [place] 4.2.7.2.686 Casey as PAUL?BLEA [phone] [address] MEDICAL OFFICE [facility] 2022-07-25 2022-07-25 Emergency X PARADISE [facility] ERT [id number] Univers 18:17:00 22:46:00 SERA ity [facility] 2022-07-25 2022-07-25 Emergency AnnaAnupama valdez [facility] 1.2.840.1 14 [id number] Univers 18:17:00 22:46:00 GenovevatonystephieSera [place] 350.1.13.10 ity of [place] 4.2.7.2.686 [place] [facility] [phone] [place] [address] 2022-07-25 2022-07-25 Urgent [facility] 1.2.840.114 [id number] Univers 18:00:00 18:00:00 Care Kaylee HEALTH 350.1.13.10 it y of [place] 4.2.7.2.686 Casey as PAUL?BLEA [id number] [address] MEDICAL OFFICE BUILDING 2022-07-25 2022-07-25 Outpatient R CLIVE [facility] [id number] Univers 18:00:00 17:41:37 KAYLEE adkins [facility] 2022-07-24 2022-07-24 Outpatient R [facility] [id number] Univers 16:30:00 16:30:00 DOREEN sarahi [facility] 2022-07-16 2022-07-16 Office [facility] 1.2.840.114 [id number] Univers 07:30:00 08:00:00 Visit Deyanira A [facility] 350.1.13.10 i ty of [place] 4.2.7.2.686 Casey as PAUL?BLEA [phone] [address] MEDICAL OFFICE BUILDING 2022-07-16 2022-07-16 Outpatient [facility] [id number] Univers 07:30:00 07:30:00 DEYANIRA adikns [facility] 2022-07-14 2022-07-14 Outpatient R [facility] [id number] Univers 10:45:00 10:45:00 DOREEN [facility] 2022-07-11 2022-07-11 Outpatient R MANASHERBERTH [facility] [id number] Univers 10:28:04 23:59:00 [facility] 2022-07-10 2022-07-10 Urgent [facility]TOH[facility]I [facility] 1.2.840.114 [id number] Univers 13:00:00 13:20:00 Care [facility] 350.1.13.10 it y [facility] 4.2.7.2.686 Casey as PAUL?BLEA [id number] [facility] [address] MEDICAL OFFICE BUILDING 2022-07-10 2022-07-10 Outpatient [facility] [id number] Univers 13:00:00 13:00:00 TESSA [facility] 2022-07-09 2022-07-09 Transition DANIA Stewart 1.2.840.114 [id number] Univers 00:00:00 00:00:00 of Care Marj MCC[place]LLAND 350.1.13.10 i ty of [place] 4.2.7.2.686 [place] [id number] [facility] [address] 2022-07-07 2022-07-08 [facility] DARLIN 1.2 .840.114 [id number] Univers 06:29:00 14:42:00 Encounter Jenny Chatterjee 350.1.13.10 ity [facility] 4.2.7.2.686 Casey as [id number] [facility] [address] 2022-07-07 2022-07-08 Inpatient R [facility] [id number] Univers 06:29:00 14:42:00 [facility] 2022-07-08 2022-07-08 Outpatient R [facility] [id number] Univers 12:00:00 12:00:00 [facility] 2022-07-07 Outpatient R [facility] [id number] Univers 18:30:00 18:30:00 ity [facility] 2022-07-07 2022-07-07 Outpatient [place] [facility] [place] [id number] Univers 18:30:00 18:30:00 [facility] 2022-07-07 2022-07-07 Surgery DARLIN [place] 1.2.840.114 [id number] Univers 07:30:00 09:30:00 [facility] YONY 350.1.13.10 ity [facility] 4.2.7.2.686 Casey as [id number] [facility] [address] 2022-07-05 2022-07-05 Laboratory Only, Adc Test [facility] 1.2.840. 114 [id number] Univers 08:15:00 08:30:00 Only Shefali Westfall 350.1.13.10 ity [facility] 4.2.7.2.686 [place] [id number] [facility] [address] 2022-07-05 2022-07-05 Outpatient R DOMITILA [facility] [id number] Univers 08:15:00 08:15:00 SHEFALI ity [facility] 2022-07-05 2022-07-05 Orders Doctor RASHAD 1.2.840.114 [id number] Univers 00:00:00 00:00:00 Only Unassigned, YONY 350.1.13.10 ity [facility] 4.2.7.2.686 Casey as [phone] [address] 2022-07-04 2022-07-04 Office Kerry, [facility] 1.2.840.114 [id number] Univers 11:00:00 12:09:05 Visit Kirk MENA 350.1.13.10 ity of [facility] 4.2.7.2.686 [place] [phone] Ms dical NAL [address] [facility] 2022-07-04 2022-07-04 Outpatient R KERRY, [facility] [id number] Univers 11:00:00 12:09:05 KIRK ibarra [facility] 2022-07-04 2022-07-04 Outpatient R KERRY, [facility] [id number] Univers 11:00:00 12:09:05 KIRK ibarra [facility] 2022-07-04 2022-07-04 Office Kerry, [facility] 1.2.840.114 [id number] Univers 11:00:00 12:09:05 Visit Kirk MENA 350.1.13.10 ity of [facility] 4.2.7.2.686 [place] [phone] Ms dical NAL [address] [place] [address] 2022-07-04 2022-07-04 Outpatient R KERRY, [facility] [id number] Univers 11:00:00 11:00:00 KIRK ibarra [facility] 2022-07-03 2022-07-03 Outpatient R JOSE, [facility] [id number] Univers 07:00:00 07:00:00 DEYANIRA karlasarahi [facility] 2022-07-03 2022-07-03 Outpatient R JOSE, [facility] [id number] Univers 07:00:00 07:00:00 DEYANIRA jed [facility] 2022-07-03 2022-07-03 Outpatient R JOSE, [facility] [id number] Univers 07:00:00 07:00:00 DEYANIRA adkins [facility] 2022-07-02 2022-07-02 Office Jose [facility] 1.2.840.114 [id number] Univers 15:30:00 16:34:36 Visit Deyanira Yang HEALTH 350.1.13.10 i ty of [place] 4.2.7.2.686 Casey as PAUL?BLEA [id number] [address] MEDICAL OFFICE [facility] 2022-07-02 2022-07-02 Outpatient [facility] [id number] Univers 15:30:00 15:30:00 DEYANIRA sarahi [facility] 2022-07-02 2022-07-02 Refill Yanick [facility] 1.2.840.114 [id number] Univers 00:00:00 00:00:00 [facility] 350.1.13.10 it y of [place] 4.2.7.2.686 Casey as PAUL?BLEA [id number] [address] OFFICE [facility] 2022-06-24 2022-06-24 Outpatient R BARB [facility] [id number] Univers 15:30:00 15:30:00 DOREEN sarahi [facility] 2022-06-24 2022-06-24 Outpatient R BARB [facility] [id number] Univers 15:00:00 15:00:00 DOREEN [facility] 2022-06-24 2022-06-24 Refill Doctor [facility] 1.2.840.114 [id number] Univers 00:00:00 00:00:00 Unassigned, HEALTH 350.1.13.10 ity of [place] 4.2.7.2.686 Casey as PAUL?BLEA [id number] [facility] [address] OFFICE [facility] 2022-06-23 2022-06-23 Outpatient R TY [facility] [id number] Univers 08:30:00 08:43:15 SARAH adkins [facility] 2022-06-23 2022-06-23 Office Ty [facility] 1.2.020.017 [id number] Univers 08:30:00 08:43:15 Visit Sarah [facility] 350.1.13.10 ity of [place] 4.2.7.2.686 [place] BEL[place] [id number] [facility] AND [address] [facility]ES [facility] 2022-06-23 2022-06-23 Outpatient R TY [facility] [id number] Univers 08:30:00 08:30:00 SARAH [facility] 2022-06-19 2022-06-19 Patient [facility] 1.2.840.114 [id number] Univers 00:00:00 00:00:00 Secure Msg Deyanira A HEALTH 350.1.13.10 ity of [place] 4.2.7.2.686 Casey as PAUL?BLEA [phone] [address] MEDICAL OFFICE BUILDING 2022-06-17 2022-06-17 Case [facility] 1.2.840.114 [id number] Univers 00:00:00 00:00:00 Management [facility] HEALTH 350.1.13.10 ity of [place] 4.2.7.2.686 [place] [id number] [place] [address] OFFICE BUILDING 2022-06-16 2022-06-16 Patient [facility] 1.2.840.114 [id number] Univers 00:00:00 00:00:00 Secure Deyanira A HEALTH 350.1.13.10 ity of [place] 4.2.7.2.686 Casey as PAUL?BLEA [id number] [address] MEDICAL OFFICE BUILDING 2022-06-14 2022-06-14 Outpatient R SON [facility] [id number] Univers 16:00:00 16:31:22 [facility] 2022-[facility]-14 2022-06-14 Keyshawn ClineTOHATCHI [facility] 1.2.840.114 [id number] Univers 16:00:00 16:31:22 Care [facility] HEALTH 350.1.13.10 it y of [place] 4.2.7.2.686 Casey as PAUL?BLEA [phone] Ms jae GOMES [address] MEDICAL OFFICE BUILDING 2022-06-13 2022-06-13 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, Fernando Agee [facility] 1.2.840.1 14 [id number] Univers 12:45:00 13:00:00 Visit [facility] 350.1.13.10 ity of [place] 4.2.7.2.686 Casey as PAUL?BLEA [id number] Ms jae GOMES [address] MEDICAL OFFICE BUILDING 2022-06-13 2022-06-13 Outpatient [facility] [id number] Univers 12:45:00 12:45:00 [facility]AH [facility] 2022-06-13 2022-06-13 Patient [facility] 1.2.767.388 [id number] Univers 00:00:00 00:00:00 Secure Msg [facility] 350.1.13.10 ity of [place] 4.2.7.2.686 [place] CENTER [phone] [facility] AND MCCUNE [address] [facility] 2022-06-13 2022-06-13 Telephone Arie [facility] 1.2.840.114 [id number] Univers 00:00:00 00:00:00 [facility] 350.1.13.10 ity of [place] 4.2.7.2.686 [place] [id number] [facility] [address] OFFICE BUILDING 2022-06-12 2022-06-12 Nurse Nurse, Fernando [facility] 1.2.840.114 [id number] Univers 19:00:00 19:00:00 Visit AtlantaClickN KIDS [facility] 350.1.13.10 ity of [place] 4.2.7.2.686 Casey as PAUL?BLEA [id number] Ms jae GOMES [address] MEDICAL OFFICE BUILDING 2022-06-12 2022-06-12 Urgent Provider, Fernando [facility] 1.2.840.114 [id number] Univers 18:20:00 18:40:00 Care [facility] 350.1.13.10 ity of [place] 4.2.7.2.686 Casey as PAUL?BLEA [phone] Me jae GOMES [address] MEDICAL OFFICE [facility] 2022-06-12 2022-06-12 Outpatient R HENRY [facility] [id number] Univers 18:20:00 18:20:00 ASHLY ity o f [facility] 2022-06-11 2022-06-11 Orders Doctor RASHAD 1.2.840.114 [id number] Univers 00:00:00 00:00:00 Only Unassigned, YONY 350.1.13.10 ity of [place] [facility] 4.2.7.2.686 Casey as [id number] [address] 2022-06-09 2022-06-09 Refill Jose [facility] 1.2.840.114 [id number] Univers 00:00:00 00:00:00 Deyanira A HEALTH 350.1.13.10 i ty of [place] 4.2.7.2.686 Casey as PAUL?BLEA [id number] Ms jae GOMES 044 [facility] OFFICE [facility] 2022-06-06 2022-06-06 Outpatient R KERRY [facility] [id number] Univers 15:40:00 15:40:00 SORAIDARODGER jed o aayush [facility] 2022-06-05 2022-06-05 Outpatient R CLIVE [facility] [id number] Univers 12:33:11 23:59:00 KAYLEE ity [facility] 2022-06-05 2022-06-05 [facility] 1.2.840.114 [id number] Univers 12:33:11 23:59:00 Encounter Kaylee HEALTH 350.1.13.10 ity of [place] 4.2.7.2.686 Casey as PAUL?BLEA [id number] Ms jae GOMES 808 [facility] OFFICE [facility] 2022-06-04 2022-06-04 Outpatient R [facility] [id number] Univers 20:19:31 23:59:00 KAYLEE ity [facility] 2022-06-04 2022-06-04 [facility] 1.2.840.114 [id number] Univers 20:19:31 23:59:00 Encounter Kaylee HEALTH 350.1.13.10 ity of [place] 4.2.7.2.686 Casey as PAUL?BLEA [phone] Ms jae KATHIE [address] MEDICAL OFFICE BUILDING 2022-06-04 2022-06-04 Urgent Kyalee Duffy [facility] 1.2.840.114 [id number] Univers 20:00:00 20:20:00 Care Riana Dimas [facility] 350.1.13.10 ity of [place] 4.2.7.2.686 Casey as PAUL?BLEA [id number] Ms jae KATHIE [address] MEDICAL OFFICE BUILDING 2022-05-26 2022-05-26 Outpatient R [facility] [id number] Univers 14:00:00 14:06:15 [facility] ity [facility] 2022-05-26 2022-05-26 Urgent [facility] [id number] Univers 14:00:00 14:06:15 [facility] 350.1.13.10 it y of [place] 4.2.7.2.686 Casey as PAUL?BLEA [id number] [facility] [address] [facility] OFFICE [facility] 2022-05-22 2022-05-22 Outpatient R [facility] [id number] Univers 10:51:15 23:59:00 LAKEISHA ity [facility] 2022-05-22 2022-05-22 [facility] 1.2.840.114 [id number] Univers 10:50:00 23:59:00 Encounter Lakeisha R [place] 350.1.13.10 ity [facility] [place]2.7.2.[place] [phone] [address] 2022-05-21 2022-05-21 Outpatient R ARIE [facility] [employer] [id number] Univers 08:30:00 08:41:29 ARIE [facility] ity [facility] 2022-05-21 2022-05-21 [facility] 1.2.840.114 [id number] Univers 08:30:00 08:41:29 Visit [facility] 350.1.13.10 [place] [id number] [facility] [address] OFFICE BUILDING 2022-05-21 2022-05-21 [facility] [id number] Univers 08:30:00 08:30:00 [facility]22-[facility] 2022-05-21 [facility] [id number] Univers 08:30:00 08:30:00 [facility] 2022-05-17 2022-05-17 [facility] 1.2.840.114 [id number] Univers 00:00:00 00:00:00 Pradeep IFEANYI 350.1.13.10 i ty [place] [id number] [facility] JUAN [address] [place] [address] 2022-05-16 2022-05-16 [facility] [id number] Univers 16:30:00 17:14:36 DEYANIRA [facility] 2022-05-16 2022-05-16 [facility] 1.2.840.114 [id number] Univers 16:30:00 17:14:[address] [facility] 350.1.13.10 i ty of IFEANYI 4.2.7.2.686 Casey as PAUL?BLEA [id number] Ms dical KNEY [address] [place] [address] OFFICE BUILDING 2022-05-16 2022-05-16 Transition DANIA Mathias 1.2.840.114 [id number] Univers 00:00:00 00:00:00 of Care Amelia MCCLELLAND 350.1.13.10 i ty of [place] 4.2.7.2.686 [place] [id number] [facility] [address] 2022-05-13 2022-05-15 [facility] JOSE DANIEL [id number] Univers 01:50:00 15:50:00 [facility] 2022-05-15 Hospital DARLIN Oliveros 1.2.213.256 [id number] 3118 Univers 01:50:00 15:50:00 Encounter Joselius MERCADO 350.1.13.10 ity of [facility] 4.2.7.2.686 Casey as [id number] [facility] [address] 2022-05-15 2022-05-15 Outpatient R OMAR [facility] [id number] Univers 00:00:00 00:00:00 LAKEISHA [facility] 2022-05-10 2022-05-10 Refill [facility] 1.2.840.114 [id number] Univers 00:00:00 00:00:00 Deyanira A HEALTH 350.1.13.10 i ty of [place] 4.2.7.2.686 Casey as PAUL?BLEA [id number] [facility] [address] MEDICAL OFFICE [facility] 2022-04-22 2022-04-22 Telephone RASHAD Mendez 1.2.551.127 [id number] Univers 00:00:00 00:00:00 Donita Shankar YONY 350.1.13.10 i ty of [facility] 4.2.7.2.686 Casey as [id number] [facility] [address] 2022-04-21 2022-04-21 Laboratory Only, Ang Db Test [facility] 1.2.8 40.114 [id number] Univers 12:00:00 12:15:00 Only Kaylee Duffy HEALTH 350.1.13.10 ity of [place] 4.2.7.2.686 Casey as PAUL?BLEA [id number] [facility] [address] MEDICAL OFFICE BUILDING 2022-04-21 2022-04-21 Outpatient [facility] [id number] Univers 12:00:00 12:07:50 KAYLEE [facility] 2022-04-20 2022-04-20 Refill [facility] 1.2.840.114 [id number] Univers 00:00:00 00:00:00 Deyanira A HEALTH 350.1.13.10 i ty of [place] 4.2.7.2.686 Casey as PAUL?BLEA [phone] Ms jae GOMES [address] MEDICAL OFFICE BUILDING 2022-04-18 2022-04-19 Emergency X ESTUARDO [facility] ERT [id number] Univers 19:44:00 00:02:00 FOLUSHO ity of [facility] 2022-04-18 2022-04-19 Emergency [facility] 1.2.840.114 [id number] Univers 19:44:00 00:02:00 Folusho F [place] 350.1.13.10 ity of [place] 4.2.7.2.686 [place] [facility] [phone] [place] [address] 2022-04-18 2022-04-18 Telephone RASHAD Linn 1.2.220.377 9115 6868 [facility] 00:00:00 00:00:00 Melania MERCADO 350.1.13.10 ity of [facility] 4.2.7.2.686 Casey as [phone] [address] 2022-04-18 2022-04-18 Telephone RASHAD Linn 1.2.212.452 [id number] 6903 [facility] 00:00:00 00:00:00 Melania Johnson YONY 350.1.13.10 ity of [facility] 4.2.7.2.686 Casey as [id number] [address] 2022-04-18 2022-04-18 Letter RASHAD Osman 1.2.840.114 [id number] Univers 00:00:00 00:00:00 (Out) Val Alex YONY 350.1.13.10 it y of [facility] 4.2.7.2.686 Casey as [id number] [address] 2022-04-17 2022-04-17 Laboratory Only, Ang Db Test [facility] 1.2.8 40.114 [id number] Univers 16:15:00 16:30:00 Only Son Tessa [facility] 350.1.13.10 ity of [place] 4.2.7.2.686 Casey as PAUL?BLEA [id number] Ms jae GOMES [address] MEDICAL OFFICE [facility] 2022-04-17 2022-04-17 Outpatient R SON [facility] [id number] Univers 16:15:00 16:20:28 TESSA [facility] 2022-04-17 2022-04-17 Patient Giuliano [facility] 1.2.840.114 [id number] Univers 00:00:00 00:00:00 Secure Msg Jaycee Schaefer HEALTH 350.1.13.10 ity of [place] 4.2.7.2.686 Casey as PAUL?BLEA [id number] [address] MEDICAL OFFICE [facility] 2022-04-14 2022-04-14 Patient [facility] 1.2.840.114 [id number] Univers 00:00:00 00:00:00 Secure Msg Deyanira A HEALTH 350.1.13.10 ity of [place] 4.2.7.2.686 Casey as PAUL?BLEA [phone] [address] OFFICE [facility] 2022-04-11 2022-04-11 Office [facility] 1.2.840.114 [id number] Univers 12:30:00 13:00:00 Visit Deyanira A HEALTH 350.1.13.10 i ty of [place] 4.2.7.2.686 Casey as PAUL?BLEA [id number] [address] 2022-04-11 2022-04-11 [facility] [id number] Univers 12:30:00 12:30:00 DEYANIRANIKUNJ adkins [facility] 2022-04-10 2022-04-10 Telephone [facility] 1.2.404.411 [id number] [id number] Univers 00:00:00 00:00:00 Deyanira A HEALTH 350.1.13.10 i ty of [place] 4.2.7.2.686 Casey as PAUL?BLEA [phone] [address] OFFICE [facility] 2022-04-06 2022-04-06 Emergency X JOSEPHINE [facility] ERT [id number] Univers 15:05:00 18:27:00 SOPHIE adkins [facility] 2022-04-06 2022-04-06 Emergency [facility]ine[facility] 1.2.840.114 [id number] Univers 15:05:00 18:27:00 Sophie MENA 350.1.13.10 ity of [place] 4.2.7.2.686 [place] [facility] [phone] [facility] [address] 2022-04-06 2022-04-06 Emergency X JOSEPHINE, [facility] ERT [id number] Univers 15:05:00 18:27:00 SOPHIE itsarahi [facility] 2022-04-02 2022-04-02 Outpatient R JOSE [facility] [id number] Univers 07:30:00 08:03:29 DEYANIRA adkins [facility] 2022-04-02 2022-04-02 Office [facility] 1.2.840.114 [id number] Univers 07:30:00 08:03:29 Visit Deyanira Yang [facility] 350.1.13.10 i ty [facility] 4.2.7.2.686 Casey as PAUL?BLEA [phone] [address] MEDICAL OFFICE [facility] 2022-03-28 2022-03-28 Patient [facility] 1.2.840.114 [id number] Univers 00:00:00 00:00:00 Secure Msbest Schaefer HEALTH 350.1.13.10 ity of [facility] 4.2.7.2.686 Casey as PAUL?BLEA [phone] [address] OFFICE [facility] 2022-03-24 2022-03-24 Office [facility]I [facility] 1.2.073.449 [id number] Univers 08:30:00 08:55:06 Visit Sarah CURRAN 350.1.13.10 ity of [place] 4.2.7.2.686 [facility] [phone] [facility] AND TILLEY [address] [facility] 2022-03-24 2022-03-24 Outpatient Otis CRAWFORD [facility] [id number] Univers 08:30:00 08:55:06 SARAH adkins [facility] 2022-03-24 2022-03-24 Outpatient Otis [facility]WFORD [facility] [id number] Univers 08:30:00 08:30:00 [facility] 2022-03-24 2022-03-24 Outpatient R TY [facility] [id number] Univers 08:30:00 08:30:00 SARAH [facility] 2022-03-20 2022-03-20 Telephone Jose [facility] 1.2.964.394 [id number] Univers 00:00:00 00:00:00 Deyanira A HEALTH 350.1.13.10 i ty of [place] 4.2.7.2.686 Casey as PAUL?BLEA [phone] [address] OFFICE [facility] 2022-03-19 2022-03-19 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, Ang - Db [facility] 1..840.1 14 [id number] Univers 12:45:00 13:00:00 Visit JoseMamie A HEALTH 350.1.13.10 ity of [place] 4.2.7.2.686 Casey as PAUL?BLEA [id number] [facility] [address] [facility] OFFICE [facility] 2022-03-19 2022-03-19 Outpatient R JOSE [facility] [id number] Univers 12:45:00 12:45:00 DEYANIRA [facility] 2022-03-19 2022-03-19 Refill [facility] 1.2.840.114 [id number] Univers 00:00:00 00:00:00 Deyanira A HEALTH 350.1.13.10 i ty of [place] 4.2.7.2.686 Casey as PAUL?BLEA [phone] [address] OFFICE [facility] 2022-03-19 2022-03-19 Refill Doctor [facility] 1.2.840.114 [id number] Univers 00:00:00 00:00:00 Unassigned, HEALTH 350.1.13.10 ity of [place] 4.2.7.2.686 Casey as PAUL?BLEA [phone] [address] OFFICE [facility] 2022-03-19 2022-03-19 Refill [facility] 1.2.840.114 [id number] 97 Univers 00:00:00 00:00:00 Deyanira A HEALTH 350.1.13.10 i ty of [place] 4.2.7.2.686 Casey as PAUL?BLEA [id number] [address] MEDICAL OFFICE BUILDING 2022-03-14 2022-03-14 Telephone Ty [facility] 1.2.840.114 [id number] Univers 00:00:00 00:00:00 Sarah MULTISPEC 350.1.13.10 ity of [place] 4.2.7.2.686 [facility] [phone] [facility] AND [address] [facility] 2022-03-11 2022-03-11 Office Flip[facility]I [facility] 1.2.840.114 [id number] Univers 15:00:00 16:03:09 Visit Warner LUCAS 350.1.13.10 it y of [place] 4.2.7.2.686 Casey as PAUL?BLEA [id number] [address] OFFICE [facility] 2022-03-11 2022-03-11 Outpatient R FLIP [facility] [id number] Univers 15:00:00 16:03:09 WARNER sarahi [facility] 2022-03-11 2022-03-11 [facility] [id number] Univers 15:00:00 15:00:00 [facility] 2022-03-11 2022-03-11 Emergency X [facility] ERT [id number] Univers 10:30:00 12:24:00 BRYON adkins [facility] 2022-03-11 2022-03-11 Emergency [facility] 1.2.867.900 [id number] Univers 10:30:00 12:24:00 Bryon MENA 350.1.13.10 i ty of [place] 4.2.7.2.686 [facility] [id number] [facility] [address] 2022-03-11 2022-03-11 Orders Doctor KIRKLAND 1.2.840.114 [id number] Univers 00:00:00 00:00:00 Only Unassigned, YONY 350.1.13.10 ity of [place] [facility] 4.2.7.2.686 Casey as [phone] [facility] [address] 2022-02-28 2022-02-28 Out[facility] [id number] Univers 07:30:00 15:40:09 [facility] 2022-02-28 2022-02-28 Office [facility] 1.2.840.114 [id number] Univers 07:30:00 15:40:09 Visit Deyanira [facility] 350.1.13.10 i ty of [place] 4.2.7.2.686 Casey as PAUL?BLEA [id number] [address] MEDICAL OFFICE BUILDING 2022-02-28 2022-02-28 [facility] [id number] Univers 07:30:00 15:40:09 [facility] 2022-02-28 2022-02-28 [facility] [id number] Univers 13:00:00 13:00:00 [facility] 2022-02-27 2022-02-27 Transition DANIA Mathias 1.2.840.114 [id number] Univers 00:00:00 00:00:00 of Care Amelia MCCLELLAND 350.1.13.10 i ty of [place] 4.2.7.2.686 [facility] [id number] [facility] [address] 2022-02-23 2022-02-26 Inpatient X NILA [facility] KAYKAY [id number] Univers 19:51:00 14:57:00 SRIDHAR adkins [facility] 2022-02-23 2022-02-26 Hospital Caterina Cohen [facility] 1.2.840. 114 [id number] Univers 19:51:00 14:57:00 Encounter Sridhar Rayo 350.1.13.10 ity of [place] 4.2.7.2.686 [place] [facility] [phone] [facility] [address] 2022-02-23 2022-02-23 Orders Doctor KIRKLAND 1.2.840.114 [id number] Univers 00:00:00 00:00:00 Only Unassigned, YONY 350.1.13.10 ity of [place] [facility] 4.2.7.2.686 Casey as [id number] [facility] [address] 2022-02-21 2022-02-21 Emergency X DARON, [facility] ERT [id number] Univers 15:29:00 18:39:00 CATERINA adkins [facility] 2022-02-21 2022-02-21 Emergency Cohen, [facility] 1.2.840.114 [id number] Univers 15:29:00 18:39:00 Caterina MENA 350.1.13.10 i ty of [place] 4.2.7.2.686 [place] CAMPUS [id number] [facility] [address] 2022-02-20 2022-02-20 Outpatient R JOSE [facility] [id number] Univers 07:00:00 08:10:01 DEYANIRA sarahi [facility] 2022-02-20 2022-02-20 Office [facility] 1.2.840.114 [id number] Univers 07:00:00 08:10:01 Visit Deyanira Yang [facility] 350.1.13.10 i ty of [place] 4.2.7.2.686 Casey as PAUL?BLEA [phone] [address] MEDICAL OFFICE BUILDING 2022-02-18 2022-02-18 Transition DANIA Mathias 1.2.840.114 [id number] Univers 00:00:00 00:00:00 of Care Amelia MCCLELLAND 350.1.13.10 i ty of [place] 4.2.7.2.686 [place] [id number] [facility] [address] 2022-02-15 2022-02-17 Inpatient X NIDIA [facility] [id number] Univers 19:50:00 18:42:00 ROHAN adkins [facility] 2022-02-15 2022-02-17 [facility] Janina Vasquez [facility] 1.2.840. 114 [id number] Univers 19:50:00 18:42:00 Encounter Paul Leigh 350.1.13.10 ity of [place] 4.2.7.2.686 Rohan Calzada [id number] [facility] [address] ([facility]) 2022-02-15 2022-02-17 Inpatient X NIDIA [facility] [id number] Univers 19:50:00 18:42:00 ROHAN adkins [facility] 2022-02-15 2022-02-17 [facility] [id number] Univers 19:50:00 18:42:00 ROHAN adkins [facility] 2022-02-17 2022-02-17 Surgery [facility] 1.2.840.114 [id number] Univers 15:26:00 16:26:00 Rayo HEALTH 350.1.13.10 it y of [place] 4.2.7.2.686 [place] [id number] [facility] [address] ([facility]) 2022-02-15 2022-02-15 Orders Doctor RASHAD 1.2.840.114 [id number] Univers 00:00:00 00:00:00 Only Unassigned, YONY 350.1.13.10 ity of [place] [facility] 4.2.7.2.686 Casey as [phone] [facility] [address] 2022-01-21 2022-01-21 Outpatient R DUSTIN [facility] [id number] Univers 12:32:20 23:59:00 FAHAD ity [facility] 2022-01-21 2022-01-21 Hospital VAMSI Chan 1.2.840.114 [id number] Univers 12:32:20 23:59:00 Encounter Fahad Lehman HEALTH 350.1.13.10 ity of [place] CLINICS 4.2.7.2.686 [place] [id number] [facility] [address] 2022-01-20 2022-01-20 Case [facility] 1.2.488.415 [id number] [id number] Univers 00:00:00 00:00:00 Management Mohini Schaefer HEALTH 350.1.13.10 ity of [place] 4.2.7.2.686 [place] CENTER - [phone] Med ical [facility] [address] 2022-01-17 2022-01-17 Kenton Espitia [facility] 1.2.840.114 [id number] Univers 00:00:00 00:00:00 Kirk MENA 350.1.13.10 ity of [place] 4.2.7.2.686 Terrance s [facility] [id number] [facility] [address] [facility] 2022-01-15 2022-01-15 Orders Doctor RASHAD 1.2.840.114 [id number] Univers 00:00:00 00:00:00 Only Unassigned, YONY 350.1.13.10 ity of [facility] 4.2.7.2.686 Casey [phone] [place] [address] [address] 2021-12-19 2021-12-19 Outpatient R DUSTIN [facility] [id number] Univers 08:15:00 08:15:00 [facility] 2021-12-18 2021-12-18 [facility] [id number] Univers 11:00:00 11:00:00 [facility] 2021-12-18 2021-12-18 Outpatient R [facility] [id number] Univers 11:00:00 11:00:00 [facility] 2021-12-18 2021-12-18 Outpatient R [facility] [id number] Univers 11:00:00 11:00:00 [facility] 2021-12-18 2021-12-18 Telephone [facility] 1.2.663.827 [id number] Univers 00:00:00 00:00:00 Fahad I-lighting 350.1.13.10 it y of [place] 4.2.7.2.686 Caseycelia s BELLE PLAINE - [id number] [facility] [address] 2021-12-11 2021-12-11 Kenton [facility] 1.2.840.114 [id number] Univers 00:00:00 00:00:00 Guilleia HEALTH 350.1.13.10 it y of [place] 4.2.7.2.686 Casey as PAUL?BLEA [phone] Ms jae [address] MEDICAL OFFICE BUILDING 2021-12-10 2021-12-10 Emergency X [facility] ERT [id number] Univers 17:14:00 22:57:00 RAAD ity of [facility] 2021-12-10 2021-12-10 Emergency RobbinTOH[facility] 1.2.121.970 [id number] Univers 17:14:00 22:57:00 Raad [place] 350.1.13.10 i ty of [place] 4.2.7.2.686 [place] [facility] [id number] [facility] [address] 2021-12-10 2021-12-10 Orders Doctor RASHAD 1.2.840.114 [id number] Univers 00:00:00 00:00:00 Only Unassigned, YONY 350.1.13.10 ity of [place] [facility] 4.2.7.2.686 Casey as [phone] [facility] [address] 2021-12-07 2021-12-07 Telephone RASHAD Mendez 1.2.999.248 [id number] Univers 00:00:00 00:00:00 Donita MERCADO 350.1.13.10 i ty of [facility] 4.2.7.2.686 Casey as [id number] [facility] [address] 2021-12-07 2021-12-07 Telephone RASHAD Mendez 1.2.002.978 [id number] Univers 00:00:00 00:00:00 Donita MERCADO 350.1.13.10 i ty of [address]686 Casey as [id number] [facility] [address] 2021-12-06 2021-12-06 Outpatient R [facility] [id number] Univers 18:30:00 18:30:00 ity of [facility] 2021-12-06 2021-12-06 Urgent Riana Dimas [facility] 1.2.840.114 [id number] Univers 10:20:00 10:40:00 Care [facility] 350.1.13.10 ity of [place] 4.2.7.2.686 Casey as PAUL?BLEA [id number] Ms jae [address] MEDICAL OFFICE BUILDING 2021-12-06 2021-12-06 Outpatient Otis CLINE [facility] [id number] Univers 10:20:00 10:26:44 TESSA ity [facility] 2021-12-02 2021-12-02 [facility] [id number] Univers 12:52:14 23:59:00 LAKEISHA ity [facility] 2021-12-02 2021-12-02 [facility] 1.2.840.114 [id number] Univers 12:52:14 23:59:00 Encounter [facility]13.10 [facility] 4.2.7.2.686 [facility] [id number] [address] 2021-12-02 2021-12-02 Outpatient Otis [facility] [id number] Univers 00:00:00 00:00:00 [facility]HA [facility] 2021-11-28 2021-11-28 Office [facility] 1.2.840.114 [id number] Univers 08:30:00 08:45:00 Visit [facility] 350.1.13.10 it y of [place] 4.2.7.2.686 [facility] [phone] [facility] [place] [address] [address] 2021-11-28 2021-11-28 Outpatient Otis CHAN [facility] [id number] Univers 08:30:00 08:30:00 FAHAD ity [facility] 2021-11-28 2021-11-28 Outpatient Otis CHAN [facility] [id number] Univers 08:30:00 08:30:00 FAHAD ity [facility] 2021-11-28 2021-11-28 Outpatient Otis CAHN [facility] [id number] Univers 08:30:00 08:30:00 FAHAD ity [facility] 2021-11-27 2021-11-27 Outpatient Otis GARCIA [facility] [id number] Univers 10:57:48 23:59:00 DEYANIRA ity [facility] 2021-11-27 2021-11-27 Outpatient R JOSE [facility] [id number] Univers 10:57:48 23:59:00 DEYANIRA ity of [facility] 2021-11-27 2021-11-27 [facility] 1.2.840.114 [id number] Univers 10:57:48 23:59:00 Encounter Deyanira MENA 350.1.13.10 ity of [place] 4.2.7.2.686 [facility] [id number] [facility] [address] 2021-11-27 2021-11-27 Office [facility] 1.2.840.114 [id number] Univers 09:30:00 10:49:43 Visit Deyanira Yang [facility] 350.1.13.10 i ty of [place] 4.2.7.2.686 Casey as PAUL?BLEA [id number] Ms jae GOMES [address] MEDICAL OFFICE BUILDING 2021-11-25 2021-11-25 Patient Dustin [facility] 1.2.840.114 [id number] Univers 00:00:00 00:00:00 Secure Ms Fahad HEALTH 350.1.13.10 ity of [place] 4.2.7.2.686 [facility] [phone] Med ical [facility] [address] 2021-11-14 2021-11-14 Refill [facility] 1.2.840.114 [id number] Univers 00:00:00 00:00:00 [facility] 350.1.13.10 ity of [place] 4.2.7.2.686 [facility] [phone] [facility] [address] OFFICE BUILDING 2021-11-12 2021-11-12 Outpatient R SHARON [facility] [id number] Univers 10:00:00 10:00:00 ANDREW ity of [facility] 2021-11-09 2021-11-09 Urgent Tessa Cline [facility] 1.2.840.114 [id number] Univers 19:20:00 19:40:00 Care Riana Dimas HEALTH 350.1.13.10 ity [facility] 4.2.7.2.686 Casey as PAUL?BLEA [id number] Ms jae [facility] [address] MEDICAL OFFICE [facility] 2021-11-09 2021-11-09 Outpatient R SON [facility] [id number] Univers 19:20:00 19:20:00 TESSA ity [facility] 2021-11-04 2021-11-04 Telephone [facility] 1.2.692.796 [id number] Univers 00:00:00 00:00:00 Deyanira A HEALTH 350.1.13.10 i ty of [place] 4.2.7.2.686 Casey as PAUL?BLEA [phone] [facility] [address] [facility] OFFICE [facility] 2021-10-31 2021-10-31 Outpatient Otis [facility] [id number] Univers 10:30[facility]00 [facility]:30[facility] 2021-10-31 [facility] [id number] Univers 10:30:00 10:30:00 [facility]-10[facility] 2021-10-27 Refill [facility] [id number] Univers 00:00:00 00:00:00 Deyanira A HEALTH 350.1.13.10 i ty of [place] 4.2.7.2.686 Casey as PAUL?BLEA [phone] [address] 2021-10-24 2021-10-24 [facility] [id number] Univers 08:00:00 08:00:00 [facility]-10-22 2021-10-22 Inpatient PASQUALE NelsonTRAVISCL ENDO [id number] [facility] 05:27:00 05:27:[address] [place] [address] 2021-10-21 2021-10-21 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, [facility] Main [facility] 1.2.8 [id number] Univers 16:22:22 16:37:22 Visit Sarah Crawford 350.1.13.10 ity of [place] 4[place]2.7.2.[place] [phone] Ms dical NAL [address] [facility] 2021-10-21 2021-10-21 Outpatient R TY [facility] [id number] Univers 08:00:00 08:00:00 SARAH y [facility] 2021-10-21 2021-10-21 Outpatient R TY [facility] [id number] Univers 08:00:00 08:00:00 SARAH ity [facility] 2021-10-21 2021-10-21 Orders Doctor RASHAD [id number] Univers 00:00:00 00:00:00 Only Unassigned, YONY 350.1.13.10 ity of [place] [facility] 4.2.7.2.686 Casey as [phone] [facility] [address] 2021-10-16 2021-10-16 Telephone DARLIN Herrera [id number] Univers 00:00:00 00:00:00 Andrew YONY 350.1.13.10 it y of [facility] 4.2.7.2.686 Casey as [phone] [facility] [address] 2021-10-10 2021-10-10 [facility] [id number] Univers 16:30:00 17:25:54 [facility] 2021-10-10 2021-10-10 [facility] 1.2.840.114 [id number] Univers 16:26:32 17:25:[address] [facility] 350.1.13.10 i ty of [place] 4.2.7.2.686 Casey as PAUL?BLEA [phone] Ms dical KNEY 044 [place] MEDICAL OFFICE [facility] 2021-10-01 2021-10-01 [facility] 1.2.840.114 [id number] Univers 00:00:00 00:00:00 Wentong IFEANYI 350.1.13.10 i ty of [place] [phone] Ms dical NAL 220 [facility] 2021-09-25 2021-09-25 Refill Jose PRMB 1.2.840.114 [id number] Univers 00:00:00 00:00:00 Deyanira Yang PRIMARY 350.1.13.10 i ty of C[place].2.[place].2.686 [place] [phone] Ms dical 056 [place] 2021-09-23 2021-09-23 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, 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 Main [facility] 1.2.8 40.114 [id number] Univers 08:18:10 08:33:10 Visit Sarah Crawford 350.1.13.10 ity of [place] 4.2.7.2.[place] [phone] Ms dical NAL [address] BUILDING 2021-09-23 2021-09-23 Outpatient Otis CRAWFORD [facility] [id number] Univers 08:30:00 08:30:00 SARAH [facility] 2021-09-23 2021-09-23 Outpatient Otis CRAWFORD [facility] [id number] Univers 08:30:00 08:30:00 [facility] 2021-09-23 2021-09-23 Telephone DARLIN Herrera 1.2.051.986 [id number] Univers 00:00:00 00:00:00 Andrew YONY 350.1.13.10 it y of HOSPITAL 4.2.7.2.686 [place] as [phone] [address] 2021-09-18 2021-09-18 Office Doc [facility] 1.2.840.114 [id number] Univers 15:21:04 16:06:04 Visit [facility] 350.1.13.10 it y [place].2.686 [place] [phone] [facility] 059 [address] Office Building 2021-09-18 2021-09-18 Outpatient R DOC [facility] [id number] Univers 16:00:00 16:00:[facility] 2021-09-18 2021-09-18 Telephone Ty [facility] 1.2.840.114 [id number] Univers 00:00:00 00:00:00 Sarah MULTISPEC 350.1.13.10 ity of [place] 4.2.[place].2.686 [place] BELLE PLAINE [phone] [facility] AND MCCUNE [address] [facility] 2021-09-17 2021-09-17 [facility]ill [facility] 1.2.840.114 [id number] Univers 00:00:00 00:00:00 Deyanira A PRIMARY 350.1.13.10 i ty of C[place] 4.2.7.2.686 [place] [phone] [facility] Gregory 2021-09-13 2021-09-13 Refflores Espitia[facility]I [facility] 1.2.840.114 [id number] Univers 00:00:00 00:00:00 Kirk Mena 350.1.13.10 ity of [place] 4.2.7.2.686 [place] [facility] [phone] [facility] [address] Building 2021-09-12 2021-09-12 Telephone [facility] 1.2.783.977 [id number] Univers 00:00:00 00:00:00 Deyanira A Health 350.1.13.10 i ty of [place] 4.2.7.2.686 Casey as Paul?Blea [phone] [facility] 044 [address] Medical Office Building 2021-09-09 2021-09-09 [facility] 1.2.840.114 [id number] Univers 14:54:34 23:59:00 Encounter Rashad Mena 350.1.13.10 ity of [place] 4.2.7.2.[place] [phone] [facility] [address] 2021-09-09 2021-09-09 Outpatient R [facility] [id number] Univers 00:00:00 00:00:00 RASHAD adkins of [facility] 2021-09-09 2021-09-09 Telephone [facility] 1.2.840.114 [id number] Univers 00:00:00 00:00:00 [facility] Health 350.1.13.10 ity of [place].2.686 [place] [phone] [facility] 059 [address] Office [facility] 2021-09-06 2021-09-06 Telephone Brent Meier [facility] 1.2.840.114 [id number] Univers 00:00:00 00:00:00 PRIMARY 350.1.13.10 it y of C[place] 4.2.[place].2.[place] SHARITA [phone] [facility] [address] 2021-09-03 2021-09-03 Case RenearAoncristina KIRKLAND 1.2.840.114 [id number] Univers 00:00:00 00:00:00 Management YONY 350.1.13.10 ity of HOSPITAL 4.2.7.2.686 [place] as [phone] [address] 2021-08-28 2021-08-28 Orders Doctor RASHAD 1.2.840.114 [id number] Univers 00:00:00 00:00:00 Only Unassigned, YONY 350.1.13.10 ity of [place] H[facility]PITAL 4.2.7.2.686 [place] as [phone] [address] 2021-08-23 2021-08-23 Telephone [facility] 1.2.172.571 [id number] Univers 00:00:00 00:00:00 Deyanira A Health 350.1.13.10 i ty of [place] 4.2.7.2.686 [place] as Paul?Blea [phone] Ms jae kney 044 [facility] Office [facility] 2021-08-22 2021-08-22 Outpatient R [facility] [id number] Univers 14:30:00 14:30:00 ity of [facility] 2021-08-21 2021-08-21 Out[facility] [id number] Univers 15:00:00 15:53:52 DEYANIRA ity [facility] 2021-08-21 2021-08-21 [facility] 1.2.840.114 [id number] Univers 14:34:15 15:04:15 Visit Deyanira A Health 350.1.13.10 i ty of [place] 4.2.7.2.686 [place] as Paul?Blea [phone] Me dicfrankie gomes 044 [address] Medical Office Building 2021-08-21 2021-08-21 Outpatient R JOSE [facility] [id number] Univers 15:00:00 15:00:00 DEYANIRA ity of [facility] 2021-08-19 2021-08-20 Emergency Raad Siegel 1.2.840. 114 [id number] Univers 07:42:00 16:45:00 Jenny Chatterjee 350.1.13.10 ity of [facility] 4.2.7.2.686 [place] [phone] [facility] 090 [address] 2021-07-30 2021-07-30 Outpatient R KERRY [facility] [id number] Univers 09:00:00 09:00:00 KIRK adkins o f [facility] 2021-07-28 2021-07-28 Outpatient R [facility] [id number] Univers 09:30:00 09:30:00 ity of [facility] 2021-07-28 2021-07-28 Laboratory Only, Ang Db Test [facility] 1.2.8 40.114 [id number] Univers 09:12:13 09:27:13 Only 350.1.13.10 ity of [place] 4.2.7.2.686 [place] as Paul?Blea [phone] Ms jae gomes 370 [address] Medical Office [facility] 2021-07-11 2021-07-11 [facility] Dhaval [facility] 1.2.840.114 [id number] Univers 12:26:12 23:59:00 Encounter David SPECIALTY 350.1.13.10 ity of [facility] 4.2.7.2.[place] CENTER AT [phone] Me alyfrankie BRUNO 803 [facility] 2021-07-11 2021-07-11 Outpatient R DHAVAL [facility] [id number] Univers 00:00:00 00:00:00 DAVID ity [facility] 2021-07-08 2021-07-08 Patient Jaimie [facility] 1.2.840.114 [id number] Univers 00:00:00 00:00:00 Secure Msg Fatmata SPECIALTY 350.1.13.10 ity of C[place] 4.2.[place].2.[place] C[place] AT [phone] Ms jae BRUNO [address] [place] [address] 2021-07-05 2021-07-05 Telephone MAXX Adams 1.2.840.114 [id number] Univers 00:00:00 00:00:00 Fatmata SPECIALTY 350.1.13.10 ity of [place] 4.2.[place].2.686 [place] C[place] AT [phone] Ms jae BRUNO [address] [place] [address] 2021-07-05 2021-07-05 Patient Jose [facility] 1.2.840.114 [id number] Univers 00:00:00 00:00:00 Secure Msg Deyanira A Health 350.1.13.10 ity of [place] 4.2.7.2.686 [place] as Professio [phone] Ms jae [address] Office [facility] One 2021-07-02 2021-07-02 Telephone STORM Adams 1.2.840.114 [id number] Univers 00:00:00 00:00:00 Fatmata SPECIALTY 350.1.13.10 ity of C[place] 4.2.7.2.686 [place] C[place] AT [phone] Ms jae BRUNO [address] [place] [address] 2021-06-29 2021-06-29 Orders Doctor RASHAD 1.2.840.114 [id number] Univers 00:00:00 00:00:00 Only Unassigned, YONY 350.1.13.10 ity of [place] [facility] 4.2.7.2.686 [place] as [phone] [address] 2021-06-28 2021-06-28 Telephone MAXX Adams 1.2.840.114 [id number] Univers 00:00:00 00:00:00 Fatmata SPECIALTY 350.1.13.10 ity of [place] 4.2.7.2.686 [place] C[place] AT [phone] Ms jae BRUNO [address] [place] [address] 2021-06-27 2021-06-27 Office Fatmata Adams 1.2.840.11 [id number] Univers 15:33:35 16:03:35 Visit Josue Shaikh SPECIALTY 350.1.13.10 ity of C[place] 4.2.7.2.686 [place] CENTER AT [phone] Ms dical VICTORY 072 [facility] 2021-06-27 2021-06-27 Office [facility] 1.2.840.114 [id number] Univers 07:31:01 08:21:04 Visit David SPECIALTY 350.1.13.10 ity of [place] 4.2.7.2.686 [place] AT [phone] Ms jae YOUY 198 [facility] 2021-06-27 2021-06-27 Out[facility] [id number] Univers 08:00:00 08:00:00 DAVID ity [facility] 2021-06-26 2021-06-26 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, [facility] Lab Main [facility] 1.2.8 40.114 [id number] Univers 12:13:14 12:28:14 Visit Deyanira Garcia 350.1.13.10 ity of [place] 4.2.7.2.686 [place] Profess[place] [phone] Ms dical nal 353 [facility] 2021-06-26 2021-06-26 Outpatient R JOSE [facility] [id number] Univers 12:15:00 12:15:00 DEYANIRA adkins [facility] 2021-06-25 2021-06-25 Telephone Jose [facility] 1.2.331.661 [id number] Univers 00:00:00 00:00:00 Deyanira Yang [facility] 350.1.13.10 i ty of [place] 4.2.7.2.686 [place] as Professio [phone] Ms dical nal 044 [address] Office [facility] One 2021-06-24 2021-06-24 Refflores Espitia [facility] 1.2.840.114 [id number] Univers 00:00:00 00:00:00 Kirk Mena 350.1.13.10 ity of [place] 4.2.7.2.686 [place] Profess[place] [phone] Ms dical nal 059 [facility] 2021-06-20 2021-06-20 Office TySarah [facility] 1.2.840. 114 [id number] Univers 07:39:51 08:23:21 Visit Marisel Welch 350.1.13.10 ity of [place].2.[place].2.686 [place] CENTER [phone] [address] [facility]ES [facility] 2021-06-20 2021-06-20 Outpatient Otis WELCH [facility] [id number] Univers 08:00:00 08:00:00 MARISEL adkins [facility] 2021-06-20 2021-06-20 Outpatient Otis WELCH [facility] [id number] Univers 08:00:00 08:00:00 MARISEL adkins [facility] 2021-06-20 2021-06-20 Refflores [facility] 1.2.840.114 [id number] Univers 00:00:00 00:00:00 Leonardo Mena 350.1.13.10 i ty of [place] 4.2.7.2.686 [place] Profess[place] [phone] Ms dical nal 220 [facility] 2021-06-20 2021-06-20 Kenton Potts [facility] 1.2.840.114 [id number] Univers 00:00:00 00:00:00 Leonardo Mena 350.1.13.10 i ty of [place] 4.2.7.2.686 [place] Profess[place] [phone] Ms dical nal 220 [facility] 2021-06-17 2021-06-17 Outpatient Otis WELCH [facility] [id number] Univers 16:30:00 16:30:00 MARISEL adkins [facility] 2021-06-17 2021-06-17 Outpatient Otis POTTS [facility] [id number] Univers 16:30:00 16:30:00 LEONARDO adkins [facility] 2021-06-17 2021-06-17 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, Chinedu Lab Main [facility] 1.2.8 40.114 [id number] Univers 07:49:16 08:04:16 Visit Marisel Welch 350.1.13.10 ity of Leonardo Potts [place] 4.2.7.2.686 [place] Professio [phone] Ms dical nal 353 [facility] 2021-06-13 2021-06-13 Outpatient [facility] [id number] Univers 13:30:00 13:30:00 KAE ity of [facility] 2021-06-13 2021-06-13 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, Chinedu Lab Main [facility] 1.2.8 40.114 [id number] Univers 08:16:02 08:31:02 Visit Ty Sarah Ifeanyi 350.1.13.10 ity of [place] 4.2.7.2.686 [facility] [phone] Ms dical nal 353 [facility] 2021-06-12 2021-06-12 [facility] 1.2.840.114 [id number] Univers 14:34:54 23:59:00 Encounter Deyanira Mena 350.1.13.10 ity of [place] 4.2.7.2.686 [facility] [place] [phone] [place] 067987 [place] 2021-06-12 2021-06-12 [facility] 1.2.840.114 [id number] Univers 14:33:18 14:33:18 Encounter Deyanira Mena 350.1.13.10 ity of [place] 4.2.7.2.686 [place] [phone] [address] 2021-06-12 2021-06-12 [facility] 1.2.840.114 [id number] Univers 14:32:08 14:32:08 Encounter Deyanira Celia [place] 350.1.13.10 ity of [place] 4.2.7.2.686 [place] [phone] [place] 067987 [place] 2021-06-12 2021-06-12 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, Chinedu Pritchett I [facility] 1.2. 840.114 [id number] Univers 14:11:49 14:31:49 Visit Deyanira Garcia 350.1.13.10 ity of [place] 4.2.7.2.686 [place] as Professio [phone] Ms alysd nal 044 [address] Office [facility] One 2021-06-12 2021-06-12 Office [facility] 1.2.840.114 [id number] Univers 13:06:12 14:12:00 Visit Deyanira A [facility] 350.1.13.10 i ty of [place] 4.2.7.2.686 [place] as Professio [phone] [facility] 044 [address] Office [facility] One 2021-06-12 2021-06-12 [facility] [id number] Univers 13:30:00 13:30:00 [facility] 2021-06-12 2021-06-12 [facility] [id number] Univers 13:30:00 13:30:00 [facility] 2021-06-12 2021-06-12 Telephone [facility] 1.2.840.114 [id number] Univers 00:00:00 00:00:00 Sarah MULTISPEC 350.1.13.10 ity of [place].2.7.2.686 [place] CENTER [phone] Luis Fernando diego AND TREVA [address] [facility] 2021-06-06 2021-06-06 Patient Jaimie [facility] 1.2.840.114 [id number] Univers 00:00:00 00:00:00 Secure Msg Fatmata SPECIALTY 350.1.13.10 ity of C[place] 4.2.[place].2.686 [place] C[place] AT [phone] Ms alyfrankie BRUNO [address] [place] [address] 2021-06-06 2021-06-06 Patient Jaimie [facility] 1.2.840.114 [id number] Univers 00:00:00 00:00:00 Secure Msg Fatmata SPECIALTY 350.1.13.10 ity of C[place] 4.2.7.2.686 [place] CENTER AT [phone] Ms alyfrankie YOUSarahi [address] [place] [address] 2021-06-04 2021-06-04 Nurse RASHAD Valencia 1.2.840.114 [id number] Univers 00:00:00 00:00:00 Triage Yousuf MERCADO 350.1.13.10 ity of [facility] 4.2.7.2.686 [place] as [phone] [facility] [address] 2021-06-03 2021-06-03 Outpatient R VERONICA [facility] [id number] Univers 20:40:00 20:40:00 ABE ity [facility] 2021-06-02 2021-06-03 [facility] 1.2.962.711 [id number] Univers 20:51:00 00:51:00 Wadeonnadayton S [place] 350.1.13.10 ity of [place] 4.2.7.2.686 [place] [phone] [facility] [address] 2021-06-03 2021-06-03 Telephone Prud[facility]obi[facility] 1.2.840.114 [id number] Univers 00:00:00 00:00:00 Fatmata SPECIALTY 350.1.13.10 ity of [facility] 4.2.7.2.686 [facility] AT [phone] Ms jae YOUY 072 [facility] 2021-05-31 2021-05-31 Urgent [facility] 1.2.003.287 [id number] Univers 13:13:32 13:33:32 Care [facility] 350.1.13.10 it y of [place] 4.2.7.2.686 [place] as Professio [phone] Ms jae martinez [address] Office Building One 2021-05-31 2021-05-31 Outpatient R JOSE [facility] [id number] Univers 13:30:00 13:30:00 DEYANIRA ity [facility] 2021-05-31 2021-05-31 Out[facility] [id number] Univers 13:20:00 13:20:00 [facility] 2021-05-29 2021-05-29 Office [facility] 1.2.840.114 [id number] Univers 15:04:37 15:34:37 Visit [facility] 350.1.13.10 ity of [place] 4.2.7.2.686 [place] [phone] [address] Office Building 2021-05-29 2021-05-29 Outpatient R ARIE [employer] [facility] [id number] Univers 15:30:00 15:30:00 ARIE [facility] ity [facility] 2021-05-29 2021-05-29 Patient Arie [facility] 1.2.840.114 [id number] Univers 00:00:00 00:00:00 Secure Msg [facility] 350.1.13.10 it[place] of [place]2.[place].2.686 [place] [phone] [address] Office Building 2021-05-23 2021-05-23 Patient Flip [facility] 1.2.840.114 [id number] Univers 00:00:00 00:00:00 Secure Msg [facility] 350.1.13.10 ity of [place] 4.2.7.2.686 [place] as Professio [phone] Ms jae martinez 044 [address] Office [facility] One 2021-05-23 2021-05-23 Telephone Jaimie PRPRISCILLA 1.2.840.114 [id number] Univers 00:00:00 00:00:00 Fatmata SPECIALTY 350.1.13.10 ity of CARE 4.2.7.2.686 [place] CENTER AT [phone] Ms jae BRUNO 2 [facility] 2021-05-23 2021-05-23 Patient VAMSI Adams 1.2.840.114 [id number] Univers 00:00:00 00:00:00 Secure Msg Fatmata Y HEALTH 350.1.13.10 ity of CLINICS 4.2.7.2.686 [place] [phone] [address] 2021-05-22 2021-05-22 Office [facility] 1.2.840.114 [id number] Univers 07:59:17 08:32:31 Visit Wentong [place] 350.1.13.10 i ty of [place] 4.2.7.2.686 [place] Professio [phone] Ms dical [facility] 220 [facility] 2021-05-22 2021-05-22 Outpatient R DELROY [facility] [id number] Univers 08:00:00 08:00:00 LEONARDO [facility] 2021-05-18 2021-05-18 Emergency [facility] 1.2.141.620 [id number] Univers 18:56:00 22:43:00 Sera S [place] 350.1.13.10 ity of [place] 4.2.7.2.686 [place] [phone] [facility] [address] 2021-05-18 2021-05-18 Outpatient R VERONICA [facility] [id number] Univers 19:00:00 19:00:00 ABE [facility] 2021-05-17 2021-05-17 Patient KerryTO[facility] 1.2.840.114 [id number] Univers 00:00:00 00:00:00 [facility] 350.1.13.10 [place] of [place] 4.2.7.2.[place] [phone] [facility] 059 [address] Office Building 2021-05-17 2021-05-17 Telephone [facility] 1.2.852.219 [id number] Univers 00:00:00 00:00:00 [facility] 350.1.13.10 it y of [place] 4.2.7.2.686 [place] as Professio [phone] [facility] 0[address] Office Building One 2021-05-16 2021-05-16 Office [facility] 1.2.840.114 [id number] Univers 15:06:20 15:36:20 Visit [facility] 350.1.13.10 it y of [place] 4.2.7.2.686 [place] as Professio [phone] [facility] 0[address] Building One 2021-05-16 2021-05-16 Outpatient R FLIP [facility] [id number] Univers 15:30:00 15:30:00 WARNER [facility] 2021-05-13 2021-05-13 Outpatient R DUSTIN [facility] [id number] Univers 10:45:00 10:45:00 FAHAD ity of [facility] 2021-05-13 2021-05-13 Patient Jose [facility] 1.2.840.114 [id number] Univers 00:00:00 00:00:00 Secure Msbest Yang [employer] 350.1.13.10 ity of [place] 4.2.7.2.686 [place] as Professio [phone] Ms dical nal 0[address] Office Building One 2021-05-12 2021-05-12 Nurse Bri K[place] 1.2.840.114 [id number] Univers 00:00:00 00:00:00 Triage Judith shankar 350.1.13.10 ity of [facility] 4.2.7.2.686 [place] as [phone] [address] 2021-05-12 2021-05-12 Telephone Lennie Brito [facility] 1.2.840.114 [id number] Univers 00:00:00 00:00:00 Latia [employer] 350.1.13.10 it y of [place] 4.2.7.2.686 [place] [facility] [phone] [address] ([facility]) 2021-05-05 2021-05-08 Emergency Lennie Brito [facility] 1.2.840. 114 [id number] Univers 15:48:00 13:06:00 Nila [facility] 350.1.13.10 ity of Santino Holm 4.2.7.2.686 [facility] [phone] [address] ([facility]) 2021-05-07 2021-05-07 Refill Potts, 1.2.840.8 [id number] 501 Univers 00:00:00 00:00:00 Wentong 21376.1.1 ity of 3.104.2.7 [place] .3.054868 Medica l .8 [address] 2021-05-05 2021-05-05 Travel 1.2.840.1 1.2.682.358 [id number] Univers 00:00:00 00:00:00 92415.1.1 350.1.13.10 ity of 3.104.2.7 4.2.7.3.698 [place] .3.805049 084.8 Medica l .8 [place] 2021-04-29 2021-04-29 Patient Doctor 1.2.840.6 [id number] Univers 00:00:00 00:00:00 Secure Msg Unassigned, 14107.1.1 ity of [place] 3.104.2.7 [place] .3.513048 Medica l .8 [place] 2021-04-27 2021-04-27 Patient Doctor 1.2.840.2 [id number] Univers 00:00:00 00:00:00 Secure Msg Unassigned, 71008.1.1 ity of [place] 3.104.2.7 [place] .3.555582 Medica l .8 [place] 2021-04-27 2021-04-27 Patient Doctor 1.2.840.8 [id number] Univers 00:00:00 00:00:00 Secure Msg Unassigned, 55595.1.1 ity of [place] 3.104.2.7 [place] .3.621475 Medica l .8 [place] 2021-04-25 2021-04-25 Outpatient Otis MCDONALD [facility] [id number] 611 [facility] 09:30:00 09:30:00 SCOOTER adkins of [facility] 2021-04-25 2021-04-25 Office Scooter Mcdonald 1.2.840.1 [id number] Univers 08:50:59 09:20:59 Visit Fatmata Adams 88995.1.1 ity of 3.104.2.7 [place] .3.986836 Medica l .8 [place] 2021-04-24 2021-04-24 Telephone Jose 1.2.840.1 [id number] [id number] Univers 00:00:00 00:00:00 Deyanira Yang 93587.1.1 ity of 3.104.2.7 [place] .3.071456 Medica l .8 [place] 2021-04-24 2021-04-24 Patient Lisseth, 1.2.840.1 [id number] Univers 00:00:00 00:00:00 Secure Msg Pradeep 57007.1.1 i ty of [place] 3.104.2.7 [place] .3.270196 Medica l .8 [place] 2021-04-24 2021-04-24 Travel 1.2.840.1 1.2.878.658 [id number] [id number] Univers 00:00:00 00:00:00 58745.1.1 350.1.13.10 ity of 3.104.2.7 4.2.7.3.698 [place] .3.798599 084.8 Medica l .8 [place] 2021-04-19 2021-04-19 Telephone Adam 1.2.840.4 [id number] Univers 00:00:00 00:00:00 Elmarshall Yang 84613.1.1 ity of 3.104.2.7 [place] .3.580810 Medica l .8 [place] 2021-04-16 2021-04-16 Office Lisseth, 1.2.840.4 [id number] Univers 13:54:30 14:26:52 Visit Pradeep 06869.1.1 ity of [place] 3.104.2.7 [place] .3.127446 Medica l .8 [place] 2021-04-16 2021-04-16 Outpatient Otis URBINA [facility] [id number] Univers 14:15:00 14:15:00 WONDIFUL ity o f [facility] 2021-04-16 2021-04-16 Outpatient R LISSETH [facility] [id number] Univers 14:00:00 14:00:00 PRADEEP adkins of [facility] 2021-04-16 2021-04-16 Patient Jaimie, 1.2.840.0 [id number] Univers 00:00:00 00:00:00 Secure Msg Fatmata 06848.1.1 i ty of 3.104.2.7 [place] .3.334934 Medica l .8 [place] 2021-04-16 2021-04-16 Travel 1.2.840.1 1.2.434.863 [id number] Univers 00:00:00 00:00:00 99716.1.1 350.1.13.10 ity of 3.104.2.[place]3.698 [place] .3.347352 084.8 Medica l .8 [place] 2021-04-15 2021-04-15 Nurse Erik, 1.2.840.4 [id number] Univers 00:00:00 00:00:00 Triage Damienzee 94418.1.1 it y of 3.104.2.7 [place] .3.237077 Medica l .8 [place] 2021-04-14 2021-04-14 Urgent Tessa Cline 1.2.840.9 [id number] Univers 14:50:55 15:56:17 Care Provider, [facility] 57082.1.1 ity of 3.104.2.7 [place] .3.913015 Medica l .8 [place] 2021-04-14 2021-04-14 Outpatient R SON [facility] [id number] Univers 15:00:00 15:00:00 TESSA ity [facility] 2021-04-14 2021-04-14 Travel 1.2.840.1 1.2.310.989 [id number] Univers 00:00:00 00:00:00 00319.1.1 350.1.13.10 ity of 3.104.2.[place]3.698 [place] .3.437967 084.8 Medica l .8 [place] 2021-04-10 2021-04-10 Outpatient R DUSTIN [facility] [id number] Univers 15:45:00 15:45:00 FAHAD ity [facility] 2021-04-08 2021-04-08 Telephone Gramm, 1.2.840.2 [id number] Univers 00:00:00 00:00:00 Anni A 15981.1.1 ity of 3.104.2.7 [place] .3.578480 Medica l .8 [place] 2021-04-05 2021-04-05 Telephone Jaimie, 1.2.840.1 [id number] Univers 00:00:00 00:00:00 Fatmata 23134.1.1 ity of 3.104.2.7 [place] .3.618075 Medica l .8 [place] 2021-04-04 2021-04-04 Hospital Flip, 1.2.840.3 [id number] Univers 14:15:08 23:59:00 Encounter Warner 53905.1.1 it y of 3.104.2.7 [place] .3.648655 Medica l .8 [place] 2021-04-04 2021-04-04 [facility] [id number] Univers 00:00:00 00:00:00 WARNER adkins [facility] 2021-04-02 2021-04-02 [facility]patient [facility] [id number] Univers 19:00:00 19:00:00 RASHAD adkins [facility] 2021-04-02 2021-04-02 Telephone Unknown, 1.2.840.1 [id number] Univers 00:00:00 00:00:00 Attending 86864.1.1 it y of 3.104.2.7 [place] .3.443130 Medica l .[address] [place] [address] 2021-04-01 2021-04-01 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 Warner Castelan 1.2.840.3 [id number] Univers 11:29:36 12:10:53 Visit Lab, [place] 12832.1.1 ity of 3.104.2.7 [place] .3.820054 Medica l .8 [place] 2021-04-01 2021-04-01 Urgent Warner Castelan 1.2.840.1 [id number] Univers 10:41:57 11:27:05 Care Provider, [facility] 08819.1.1 ity of 3.104.2.7 [place] .3.071553 Medica l .[address] [place] [address] 2021-04-01 2021-04-01 Outpatient Otis [facility] [id number] Univers 11:00:00 11:00:00 WARNER ity of [facility] 2021-04-01 2021-04-01 Travel 1.2.840.1 1.2.667.666 3166 2975 Univers 00:00:00 00:00:00 66424.1.1 350.1.13.10 ity of 3.104.2.7 [place].3.698 [place] .3.206707 084.8 Medica l .8 Branch 2021-03-31 2021-03-31 Patient Dustin, 1.2.840.7 [id number] 096 Univers 00:00:00 00:00:00 Secure Msg Fahad 20837.1.1 i ty of [place] 3.104.2.7 [place] .3.885572 Medica l .8 Branch 2021-03-30 2021-03-30 Patient Doctor 1.2.840.1 [id number] Univers 00:00:00 00:00:00 Secure Msg Unassigned, 43814.1.1 ity of [place] 3.104.2.7 [place] .3.209831 Medica l .8 Branch 2021-03-29 2021-03-29 Hospital Dustin, 1.2.840.1 [id number] 1845 Univers 07:19:00 10:10:00 Encounter Fahad 38865.1.1 it y of [place] 3.104.2.7 [place] .3.866363 Medica l .8 Branch 2021-03-29 2021-03-29 Surgery Dustin, 1.2.840.4 [id number] 795 Univers 08:30:00 09:34:00 Fahad 66373.1.1 ity of [place] 3.104.2.7 [place] .3.581782 Medica l .8 Branch 2021-03-29 2021-03-29 Anesthesia Juarez Muse 1.2.840.1 1008 [id number] Univers 08:18:00 09:26:00 Event Yves East 47307.1.1 ity of 3.104.2.7 [place] .3.570619 Medica l .8 Branch 2021-03-29 2021-03-29 Orders Doctor 1.2.840.5 [id number] Univers 00:00:00 00:00:00 Only Unassigned, 18713.1.1 ity of [place] 3.104.2.7 [place] .3.173135 Medica l .8 [place] 2021-03-28 2021-03-28 Laboratory Fahad Chan 1.2.840.4 [id number] Univers 11:31:28 11:46:28 Only Only, Adc Test 57563.1.1 ity of 3.104.2.7 [place] .3.981242 Medica l .8 [place] 2021-03-28 2021-03-28 [facility] [id number] Univers 09:30:00 09:30:00 FAHAD adkins [facility] 2021-03-28 2021-03-28 Orders Doctor 1.2.840.5 [id number] 709 Univers 00:00:00 00:00:00 Only Unassigned, 96518.1.1 ity of [place] 3.104.2.7 [place] .3.757842 Medica l .8 [place] 2021-03-27 2021-03-27 Office Kerry, 1.2.840.5 [id number] 64006 292 Univers 10:47:44 11:35:25 Visit Kirk 23311.1.1 ity of 3.104.2.7 [place] .3.184440 Medica l .8 [place] 2021-03-27 2021-03-27 [facility] [id number] Univers 11:00:00 11:00:00 KIRK adkins o f [facility] 2021-03-27 2021-03-27 Travel 1.2.840.1 1.2.573.484 2142 8435 Univers 00:00:00 00:00:00 71579.1.1 350.1.13.10 ity of 3.104.2.7 4[place].7.3.698 [place]3.900621 084.8 Medica l .8 Branch 2021-03-26 2021-03-26 Hospital Alonso, 1.2.840.1 [id number] 8392 4912 Univers 16:54:35 23:59:00 Encounter Marisel Hogue 10818.1.1 i ty of 3.104.2.7 [place] .3.580068 Medica l .8 Branch 2021-03-26 2021-03-26 Outpatient Otis WELCH [facility] [id number] Univers 00:00:00 00:00:00 MARISEL ity of [facility] 2021-03-25 2021-03-25 Travel 1.2.840.1 1.2.603.165 5839 6909 Univers 00:00:00 00:00:00 55314.1.1 350.1.13.10 ity of 3.104.2.7 4.[place].7.3.698 [place] .3.757832 084.8 Medica l .8 [place] 2021-03-24 2021-03-24 Emergency Lennie Brito 1.2.840.0 [id number] Univers 20:01:00 22:31:00 Latia 32547.1.1 ity of 3.104.2.7 [place] .3.641600 Medica l .8 Branch 2021-03-24 2021-03-24 Travel 1.2.840.1 1.2.470.900 4338 2291 Univers 00:00:00 00:00:00 50816.1.1 350.1.13.10 ity of 3.104.2.7 4.2.7.3.698 [place] .3.084083 084.8 Medica l .8 [place] 2021-03-21 2021-03-21 Office Alonso 1.2.840.3 [id number] 88070 776 Univers 07:56:23 09:02:17 Visit Marisel Hogue 50688.1.1 ity of 3.104.2.7 [place] .3.968490 Medica l .8 [place] 2021-03-21 2021-03-21 [facility]patient [facility] [id number] Univers 08:30:00 08:30:00 MARISEL acostay of [facility] 2021-03-21 2021-03-21 Travel 1.2.840.1 1.2.712.595 3763 1709 Univers 00:00:00 00:00:00 72435.1.1 350.1.13.10 ity of 3.104.2.7 4.2.7.3.698 [place] .3.992429 084.8 Medica l .8 [place] 2021-03-20 2021-03-20 Patient Lambert, 1.2.840.2 [id number] 839 [id number] Univers 00:00:00 00:00:00 Secure Msg Mohini Schaefer 25688.1.1 ity of 3.104.2.7 [place] .3.107019 Medica l .8 [place] 2021-03-20 2021-03-20 Refill Lisseth, 1.2.840.1 [id number] 8391 8890 Univers 00:00:00 00:00:00 Pradeep 35180.1.1 ity of [place] 3.104.2.7 [place] .3.310609 Medica l .8 [place] 2021-03-20 2021-03-20 Travel 1.2.840.1 1.2.473.954 1417 2131 Univers 00:00:00 00:00:00 66650.1.1 350.1.13.10 ity of 3.104.2.7 4.2.7.3.698 [place]3.064865 084.8 Medica l .8 [place] 2021-03-19 2021-03-19 Telephone Gramm, 1.2.840.8 [id number] 838 10504 Univers 00:00:00 00:00:00 Anni A 49656.1.1 ity of 3.104.2.7 [place] .3.507605 Medica l .8 Branch 2021-03-19 2021-03-19 Travel 1.2.840.1 1.2.613.270 9442 6731 Univers 00:00:00 00:00:00 29984.1.1 350.1.13.10 ity of 3.104.2.7 4.2.7.3.698 [place] .3.194820 084.8 Medica l .8 [place] 2021-03-18 2021-03-18 Office Barb, 1.2.840.2 [id number] 835 05399 Univers 08:55:10 09:32:53 Visit Doreen 16051.1.1 ity of 3.104.2.7 [place] .3.090167 Medica l .8 [place] 2021-03-18 2021-03-18 Office Dustin, 1.2.840.1 [id number] 457 [facility] 08:54:28 09:32:36 Visit Fahad 37892.1.1 ity of [place] 3.104.2.7 [place] .3.564159 Medica l .8 [place] 2021-03-18 2021-03-18 Outpatient R DUSTIN [facility] [id number] [facility] 09:15:00 09:15:00 FAHAD ity [facility] 2021-03-18 2021-03-18 Travel 1.2.840.1 1.2.842.980 8303 8338 Univers 00:00:00 00:00:00 74409.1.1 350.1.13.10 ity of 3.104.2.7 4.2.7.3.698 [place]3.953026 084.8 Medica l .8 [place] 2021-03-16 2021-03-16 Outpatient Otis MARTIN [facility] [id number] Univers 12:20:00 12:20:00 ABE ity of [facility] 2021-03-16 2021-03-16 Travel 1.2.840.1 1.2.343.017 8710 2552 Univers 00:00:00 00:00:00 99743.1.1 350.1.13.10 ity of 3.104.2.7 4.2.7.3.698 [place] .3.776199 084.8 Medica l .8 [place] 2021-03-14 2021-03-14 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 Marisel Welch 1.2.840.1 62022 01086 [id number] Univers 09:20:34 09:35:34 Visit Pob, Adc Lab Main 89989.1.1 ity of 3.104.2.7 [place] .3.897902 Medica l .8 [place] 2021-03-14 2021-03-14 Outpatient R ALONSO, [facility] [id number] Univers 09:00:00 09:00:00 SHANYUKI ity of [facility] 2021-03-14 2021-03-14 Telephone Alonso, 1.2.840.1 [id number] 837 06587 Univers 00:00:00 00:00:00 Marisel K 25420.1.1 ity of 3.104.2.7 [place] .3.365711 Medica l .8 [place] 2021-03-14 2021-03-14 Orders Doctor 1.2.840.5 [id number] 117 Univers 00:00:00 00:00:00 Only Unassigned, 26995.1.1 ity of [place] 3.104.2.7 [place] .3.080371 Medica l .8 [place] 2021-03-14 2021-03-14 Travel 1.2.840.1 1.2.856.402 8099 4994 Univers 00:00:00 00:00:00 05560.1.1 350.1.13.10 ity of 3.104.2.7 4.2.7.3.698 [place]3.417825 084.8 Medica l .8 [place] 2021-03-13 2021-03-13 Patient Jose, 1.2.840.7 [id number] 878 Univers 00:00:00 00:00:00 Secure Msg Deyanira A 50136.1.1 ity of 3.104.2.7 [place] .3.786149 Medica l .8 [place] 2021-03-11 2021-03-11 Outpatient R SHARON, [facility] [id number] Univers 09:00:00 09:00:00 ANDREW ity of [facility] 2021-03-10 2021-03-10 Emergency Siegel, 1.2.840.9 [id number] 836 36414 Univers 16:22:00 18:08:00 Raad 06044.1.1 ity of 3.104.2.7 [place] .3.929296 Medica l .8 Branch 2021-03-10 2021-03-10 Travel 1.2.840.1 1.2.206.858 3443 2220 Univers 00:00:00 00:00:00 58902.1.1 350.1.13.10 ity of 3.104.2.7 4.2.7.3.698 [place]3.041588 084.8 Medica l .8 Branch 2021-03-09 2021-03-09 Telephone Hendrickson, 1.2.840.0 [id number] Univers 00:00:00 00:00:00 Doreen 53086.1.1 ity of 3.104.2.7 [place] .3.467890 Medica l .8 [place] 2021-03-08 2021-03-08 Office Jose, 1.2.840.2 [id number] 50723 640 Univers 15:34:10 17:50:35 Visit Deyanira A 50288.1.1 ity of 3.104.2.7 [place] .3.201305 Medica l .8 [place] 2021-03-08 2021-03-08 Outpatient R JOSE, [facility] [id number] Univers 16:00:00 16:00:00 DEYANIRA ity of [facility] 2021-03-08 2021-03-08 Refflores Montanez, 1.2.840.3 [id number] 8358 7329 Univers 00:00:00 00:00:00 Pradeep 61571.1.1 ity of [place] 3.104.2.7 [place] .3.673579 Medica l .8 Branch 2021-03-08 2021-03-08 Transition Mey, 1.2.840.9 [id number] 83 [id number] Univers 00:00:00 00:00:00 of Lorenzo Schaefer 65464.1.1 ity of 3.104.2.7 [place] .3.954607 Medica l .8 Branch 2021-03-08 2021-03-08 Travel 1.2.840.1 1.2.368.134 9948 9900 Univers 00:00:00 00:00:00 57742.1.1 350.1.13.10 ity of 3.104.2.7 4.2.7.3.698 [place] .3.026385 084.8 Medica l .8 Branch 2021-03-01 2021-03-07 [facility] Lennie Brito Latia 1.2.840.1 [id number] [id number] Univers 15:55:00 16:20:00 Encounter Mk Qureshi 42519.1.1 ity of 3.104.2.7 [place] .3.280451 Medica l .8 [place] 2021-03-07 2021-03-07 Telephone Barb 1.2.840.0 [id number] Univers 00:00:00 00:00:00 Doreen 95722.1.1 ity of 3.104.2.7 [place] .3.101326 Medica l .8 Branch 2021-03-06 2021-03-06 Anesthesia Nakul Infante 1.2.840.9 [id number] Univers 14:18:00 17:22:00 Event Yves East 39945.1.1 ity of 3.104.2.7 [place] .3.342862 Medica l .8 [place] 2021-03-06 2021-03-06 Surgery Hendrickson, 1.2.840.4 [id number] 834 76694 Univers 13:40:00 16:50:00 Doreen 81684.1.1 ity of 3.104.2.7 [place] .3.876178 Medica l .8 [place] 2021-03-06 2021-03-06 Outpatient R DELROY [facility] [id number] Univers 15:00:00 15:00:00 WENTONG ity of [facility] 2021-03-05 2021-03-05 Outpatient R SHARON [facility] [id number] Univers 11:00:00 11:00:00 ANDREW ity [facility] 2021-03-04 2021-03-04 Telephone Potts, 1.2.840.1 [id number] 834 [id number] Univers 00:00:00 00:00:00 Leonardo 82780.1.1 ity of 3.104.2.7 [place] .3.291188 Medica l .8 [place] 2021-03-04 2021-03-04 Refill Kerry, 1.2.840.6 [id number] 006 Univers 00:00:00 00:00:00 Kirk 17007.1.1 ity of 3.104.2.7 [place] .3.323643 Medica l .8 [place] 2021-03-01 2021-03-01 Office Jose, 1.2.840.7 [id number] 365 Univers 14:31:29 16:17:49 Visit Deyanira Yang 24282.1.1 ity of 3.104.2.7 [place] .3.319394 Medica l .8 [place] 2021-03-01 2021-03-01 Outpatient R JOSE, [facility] [id number] Univers 14:30:00 14:30:00 DEYANIRA ity of [facility] 2021-03-01 2021-03-01 Orders Doctor 1.2.840.8 [id number] 071 Univers 00:00:00 00:00:00 Only Unassigned, 85545.1.1 ity of [place] 3.104.2.7 [place] .3.111217 Medica l .8 [place] 2021-03-01 2021-03-01 Travel 1.2.840.1 1.2.861.944 4716 3038 Univers 00:00:00 00:00:00 84204.1.1 350.1.13.10 ity of 3.104.2.7 4.2.7.3.698 [place] .3.549939 084.8 Medica l .8 [place] 2021-03-01 2021-03-01 Patient Jose, 1.2.840.9 [id number] 952 Univers 00:00:00 00:00:00 Secure Msg Deyanira Yang 90402.1.1 ity of 3.104.2.7 [place] .3.150697 Medica l .8 Branch 2021-02-28 2021-02-28 Outpatient R YAMILETH, [facility] [id number] Univers 11:10:00 11:10:00 NATANAEL ity of [facility] 2021-02-28 2021-02-28 Imm/Inj Natanael Tolentino 1.2.840.1 [id number] Univers 11:02:42 11:02:50 Visit Nurse, Chinedu Pohiwot Immunization 70972.1.1 ity of 3.104.2.7 [place] .3.376933 Medica l .8 Branch 2021-02-26 2021-02-26 Anesthesia Cruzito, 1.2.840.6 [id number] Univers 23:59:59 23:59:59 Event Yves 67632.1.1 ity of 3.104.2.7 [place] .3.986731 Medica l .8 Branch 2021-02-25 2021-02-25 Patient Dustin, 1.2.840.0 [id number] 770 Univers 00:00:00 00:00:00 Secure Msg Fahad 96138.1.1 i ty of [place] 3.104.2.7 [place] .3.133345 Medica l .8 Branch 2021-02-21 2021-02-21 Refill Jose, 1.2.840.9 [id number] [id number] Univers 00:00:00 00:00:00 Deyanira Yang 58799.1.1 ity of 3.104.2.7 [place] .3.723823 Medica l .8 Branch 2021-02-20 2021-02-20 Emergency Lennie Brito 1.2.840.2 [id number] Univers 20:18:00 22:13:00 Sera Navarrete 92482.1.1 ity of 3.104.2.7 [place] .3.962674 Medica l .8 Branch 2021-02-20 2021-02-20 Telephone Alexandro, 1.2.840.9 [id number] Univers 00:00:00 00:00:00 Fernanda 28059.1.1 ity of [place] 3.104.2.7 [place] .3.523987 Medica l .8 Branch 2021-02-20 2021-02-20 [facility], 1.2.840.0 [id number] 8314 6031 Univers 00:00:00 00:00:00 (Out) Fernanda 38092.1.1 ity of [place] 3.104.2.7 [place] .3.886784 Medica l .8 Branch 2021-02-20 2021-02-20 Travel 1.2.840.1 1.2.293.074 6779 7369 Univers 00:00:00 00:00:00 55072.1.1 350.1.13.10 ity of 3.104.2.7 4.2.7.3.698 [place] .3.055398 084.8 Medica l .8 [place] 2021-02-19 2021-02-19 Refill Kerry, 1.2.840.3 [id number] 73758 718 Univers 00:00:00 00:00:00 Kirk 83108.1.1 ity of 3.104.2.7 [place] .3.035261 Medica l .8 [place] 2021-02-18 2021-02-18 [facility], 1.2.840.0 [id number] 824 50989 Univers 09:31:00 12:22:00 Encounter Fernanda 90954.1.1 it y of [place] 3.104.2.7 [place] .3.235488 Medica l .8 [place] 2021-02-18 2021-02-18 [facility] 1.2.840.6 [id number] 8169 8705 Univers 10:45:00 11:45:00 Fernanda 34142.1.1 ity of [place] 3.104.2.7 [place] .3.580532 Medica l .8 [place] 2021-02-18 2021-02-18 Anesthesia Ihsan Hopper 1.2.840. 8 [id number] Univers 11:03:00 11:40:00 Event Diane Lepe 52174.1.1 ity of 3.104.2.7 [place] .3.970428 Medica l .8 Branch 2021-02-18 2021-02-18 Orders Doctor 1.2.840.4 [id number] 111 Univers 00:00:00 00:00:00 Only Unassigned, 28361.1.1 ity of [place] 3.104.2.7 [place] .3.353806 Medica l .8 Branch 2021-02-18 2021-02-18 Telephone Sewani, 1.2.840.3 [id number] 830 08386 Univers 00:00:00 00:00:00 Andrew 55248.1.1 ity of 3.104.2.7 [place] .3.066023 Medica l .8 Branch 2021-02-18 2021-02-18 Travel 1.2.840.1 1.2.125.231 8228 1034 Univers 00:00:00 00:00:00 34453.1.1 350.1.13.10 ity of 3.104.2.7 4.2.7.3.698 [place] .3.608452 084.8 Medica l .8 [place] 2021-02-15 2021-02-15 Prep For Gramm, 1.2.840.9 [id number] 8300 3168 Univers 00:00:00 00:00:00 Surgery Anni A 18553.1.1 ity of 3.104.2.7 [place] .3.298473 Medica l .8 [place] 2021-02-15 2021-02-15 Patient Olea, 1.2.840.3 [id number] 000 Univers 00:00:00 00:00:00 [place]sg [place]k 58488.1.1 i ty of 3.104.2.7 [place] .3.715730 Medica l .8 [place] 2021-02-14 2021-02-14 Laboratory Fernanda Mc 1.2.840.3 [id number] Univers 11:22:21 11:37:21 Only Only, Adc Test 37599.1.1 ity of 3.104.2.7 [place] .3.907678 Medica l .8 [place] 2021-02-14 2021-02-14 Outpatient R ALEXANDRO [facility] [id number] Univers 09:45:00 09:45:00 FERNANDA ity of [facility] 2021-02-14 2021-02-14 Telephone Dustin, 1.2.840.7 [id number] 829 [id number] Univers 00:00:00 00:00:00 Fahad 27638.1.1 ity of [place] 3.104.2.7 [place] .3.351082 Medica l .8 [place] 2021-02-14 2021-02-14 Travel 1.2.840.1 1.2.677.238 1445 1327 Univers 00:00:00 00:00:00 39864.1.1 350.1.13.10 ity of 3.104.2.7 4.2.7.3.698 [place] .3.305823 084.8 Medica l .8 [place] 2021-02-12 2021-02-12 Hospital Isma, 1.2.840.6 [id number] 8034 0742 Univers 07:55:41 23:59:00 Encounter Pk 32538.1.1 it y of 3.104.2.7 [place] .3.198316 Medica l .8 [place] 2021-02-12 2021-02-12 Office Yayotory, 1.2.840.6 [id number] 955 Univers 08:45:38 16:19:30 Visit Andrew 82504.1.1 ity of 3.104.2.7 [place] .3.430407 Medica l .8 [place] 2021-02-12 2021-02-12 Laboratory Shefali Westfall 1.2.840.9 889 [id number] Univers 12:00:00 12:15:00 Only Only, Adc Test 97598.1.1 ity of 3.104.2.7 [place] .3.873026 Medica l .8 [place] 2021-02-12 2021-02-12 Outpatient R PK OLEA [facility] 10 [id number] Univers 00:00:00 00:00:00 PK OLEA i ty [facility] 2021-02-12 2021-02-12 Travel 1.2.840.1 1.2.289.885 9621 3751 Univers 00:00:00 00:00:00 99489.1.1 350.1.13.10 ity of 3.104.2.7 4.2.7.3.698 [place] .3.806100 084.8 Medica l .8 [place] 2021-02-11 2021-02-11 Telephone Kerry, 1.2.840.3 [id number] 827 46124 Univers 00:00:00 00:00:00 Qiangrodger 72743.1.1 ity of 3.104.2.7 [place] .3.608071 Medica l .8 [place] 2021-02-08 2021-02-08 Refill Sagarclifford, 1.2.840.6 [id number] 8271 3243 Univers 00:00:00 00:00:00 Pradeep 86989.1.1 ity of [place] 3.104.2.7 [place] .3.377054 Medica l .8 [place] 2021-02-08 2021-02-08 Patient Jose, 1.2.840.8 [id number] 21507 965 Univers 00:00:00 00:00:00 Secure Msg Deyanira Celia 19486.1.1 ity of 3.104.2.7 [place] .3.113995 Medica l .8 [place] 2021-02-06 2021-02-06 Outpatient MAXX CANALES [facility] [id number] Univers 11:10:00 11:10:00 GODWIN itsarahi of [facility] 2021-02-06 2021-02-06 Imm/Inj Godwin Canales 1.2.840.0 [id number] Univers 10:59:13 10:59:27 Visit Nurse, Chinedu Poihwot Immunization 99582.1.1 ity of 3.104.2.7 [place] .3.315474 Medica l .8 [place] 2021-02-02 2021-02-02 Patient MAXX Canales 1.2.840.114 [id number] Univers 00:00:00 00:00:00 Outreach Godwin PRIMARY 350.1.13.[address] [facility] 4.2.7.2.[place] 637.7561360 Ms dical 388 Branch 2021-01-30 2021-01-30 Telephone PrudenciobiJHONIT 1.2.840.114 [id number] Univers 00:00:00 00:00:00 Fatmata Y HEALTH 350.1.13.10 i ty of [place].2.[place] [phone] [facility] 071 Branch 2021-01-29 2021-01-29 Emergency [facility] 1.2.641.345 5207 6234 Univers 15:11:00 19:57:00 Janina Mena 350.1.13.10 ity of [place]7.2.[place] [id number] [facility] 084 Branch 2021-01-29 2021-01-29 Orders Doctor RASHAD 1.2.840.114 [id number] Univers 00:00:00 00:00:00 Only Unassigned, YONY 350.1.13.10 ity of [place] [facility] 4.2.7.2.686 Casey as [phone] [facility] 009 Branch 2021-01-25 2021-01-25 Outpatient R PK OLEA [facility] 10 [id number] Univers 09:00:00 09:00:00 PK OLEA i ty of [facility] 2021-01-24 2021-01-24 Hospital Radiology [facility] 1.2.840.114 [id number] [id number] Univers 18:30:00 23:59:00 Encounter Ifeanyi 350.1.13.10 ity of [place] 4.2.7.2.686 [place] [facility] [id number] [facility] 806 Branch 2021-01-24 2021-01-24 Outpatient R RADIOLOGY [facility] [id number] Univers 00:00:00 00:00:00 ity of [facility] 2021-01-24 2021-01-24 [facility] 1.2.840.114 [id number] Univers 00:00:00 00:00:00 (Out) Deyanira A Health 350.1.13.10 i ty of Ifeanyi 4.2.7.2.686 [place] as Professio [phone] Ms dical nal 044 [place] Office [facility] 2021-01-23 2021-01-23 Urgent Quinten Akers [facility] 1.2.840 .114 [id number] Univers 16:31:44 16:51:44 Care Jose Deyanira Celia [facility] 350.1.13.10 ity of [place] 4.2.7.2.686 Casey as Professio [phone] Ms dical nal 044 [place] Office [facility] 2021-01-23 2021-01-23 Outpatient R JOSE [facility] [id number] Univers 16:20:00 16:20:00 DEYANIRA adkins [facility] 2021-01-23 2021-01-23 Orders Doctor RASHAD 1.2.840.114 [id number] Univers 00:00:00 00:00:00 Only Unassigned, YONY 350.1.13.10 [facility] 4.2.7.2.686 [place] as [phone] [address] 2021-01-22 2021-01-22 Office [facility] 1.2.840.114 [id number] Univers 09:54:26 10:14:26 Visit Kirk Mena 350.1.13.10 [place] [phone] Ms dical nal 059 [facility] 2021-01-22 2021-01-22 Outpatient R KERRY [facility] [id number] Univers 10:00:00 10:00:00 KIRK adkins o f [facility] 2021-01-22 2021-01-22 Telephone Dustin [facility] 1.2.090.984 [id number] Univers 00:00:00 00:00:00 Fahad Ifeanyi 350.1.13.10 i ty of [place] [phone] Ms dical nal 188 [facility] 2021-01-21 2021-01-21 Outpatient R RADIOLOGY [facility] [id number] Univers 00:00:00 00:00:00 ity of [facility] 2021-01-14 2021-01-14 Outpatient R DUSTIN [facility] [id number] Univers 09:30:00 09:30:00 FAHAD adkins [facility] 2021-01-14 2021-01-14 Orders Doctor RASHAD 1.2.840.114 [id number] Univers 00:00:00 00:00:00 Only Unassigned, YONY 350.1.13.10 ity of [place] [facility] 4.2.7.2.686 [place] as [phone] [facility] [address] 2021-01-11 2021-01-11 Office Jose [facility] 1.2.840.114 [id number] Univers 10:55:54 11:59:52 Visit Deyanira [facility] 350.1.13.10 i ty of [place] 4.2.7.2.686 [place] Professio [phone] [address] Office [facility] 2021-01-11 2021-01-11 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 840.114 [id number] Univers 11:38:21 11:58:21 Visit Deyanira [facility] 350.1.13.10 ity of [place] 4.2.7.2.686 [place] Professio [phone] [address] 2021-01-11 2021-01-11 Outpatient R JOSE [facility] [id number] Univers 11:00:00 11:00:00 DEYANIRANIKUNJ adkins [facility] 2021-01-07 2021-01-07 Outpatient R DUSTIN [facility] [id number] Univers 14:30:00 14:30:00 FAHAD adkins [facility] 2021-01-03 2021-01-03 Office VAMSI Adams 1.2.840.114 [id number] Univers 09:13:33 09:43:33 Visit Fatmata Sarahi HEALTH 350.1.13.[address] [facility] 4.2.7.2.[place] [phone] [facility] [address] 2021-01-03 2021-01-03 Outpatient R JAIMIE [facility] [id number] Univers 09:30:00 09:30:00 FATMATA ity of [facility] 2021-01-03 2021-01-03 Orders Doctor RASHAD 1.2.840.114 [id number] Univers 00:00:00 00:00:00 Only Unassigned, YONY 350.1.13.10 ity of [place] [facility] 4.2.7.2.686 [place] as [phone] [facility] [address] 2020-12-28 2020-12-28 Emergency [place] [facility] 1.2.840.114 [id number] Univers 16:09:00 23:22:00 , Shari BELLE PLAINE 350.1.13.10 it y of [place]7.2.[place] [phone] [facility] [address] 2020-12-28 2020-12-28 Hospital Dustin [facility] 1.2.840.114 [id number] Univers 14:00:38 16:08:00 Encounter Fahad Lehman [facility] 350.1.13.10 ity of [facility] 4.2.7.2.[place] [phone] [facility] [address] 2020-12-28 2020-12-28 Outpatient R DUSTIN [facility] [id number] Univers 00:00:00 00:00:00 FAHAD ity of [facility] 2020-12-26 2020-12-27 Emergency [facility] 1.2.576.774 [id number] Univers 21:44:00 02:05:00 Yeny Mena 350.1.13.10 i ty of [place] [phone] [facility] [address] 2020-12-26 2020-12-26 [facility] 1.2.535.145 [id number] Univers 00:00:00 00:00:00 Secure best Rajan [facility] 350.1.13.10 ity of [place] - [phone] Med ical [facility] [address] 2020-12-26 2020-12-26 Patient [facility] 1.2.944.244 [id number] Univers 00:00:00 00:00:00 Secure Msg Mohini Schaefer [facility] 350.1.13.10 ity of [place] - [phone] Med ical [facility] [address] 2020-12-25 2020-12-25 Hospital Norm Blood 1.2.840 .114 [id number] Univers 09:13:08 23:59:00 Encounter Outpt-Luana, Pacemaker/Icd Yony 350 .1.13.10 ity of Hospital 4.2.7.2.686 Casey as [phone] [facility] [address] 2020-12-25 2020-12-25 Outpatient R [facility] [id number] Univers 09:30:00 09:30:00 ity of [facility] 2020-12-24 2020-12-24 Office [facility] 1.2.840.114 [id number] Univers 14:35:25 15:01:22 Visit Kirk Mena 350.1.13.10 ity of [place] [facility] [phone] Ms dical nal 059 [facility] 2020-12-24 2020-12-24 [facility] [id number] Univers 14:40:00 14:40:00 KIRK acostay o f [facility] 2020-12-24 2020-12-24 Refill [facility] 1.2.840.114 [id number] Univers 00:00:00 00:00:00 Kirk Mena 350.1.13.10 ity of [place] Profess[place] [phone] Ms dical nal 059 [facility] 2020-12-17 2020-12-17 Outpatient R DUSTIN [facility] [id number] Univers 09:00:00 09:00:00 FAHAD ity of [facility] 2020-12-15 2020-12-15 Emergency Janina Vasquez [facility] 1.2.840 .114 [id number] Univers 20:23:00 23:30:00 Luis Fernando Muro [place] 350.1.13.10 ity of [place] [phone] [facility] [address] 2020-12-15 2020-12-15 Orders Doctor RASHAD 1.2.840.114 [id number] Univers 00:00:00 00:00:00 Only Unassigned, YONY 350.1.13.10 ity of [facility] 4.2.7.2.686 Casey as [phone] [facility] [address] 2020-12-13 2020-12-13 Patient Potts, [facility] 1.2.840.114 [id number] Univers 00:00:00 00:00:00 Secure Msg Leonardo Mena 350.1.13.10 ity of [place] Profess[place] [phone] Ms dical nal 220 [facility] 2020-12-11 2020-12-11 [facility] 1.2.840.114 [id number] Univers 00:00:00 00:00:00 Secure Msg Renetta H [place] 350.1.13.10 ity of [place] 4.2.7.2.[place] Profess[place] [phone] Ms dical nal 220 [facility] 2020-12-11 2020-12-11 Patient Ashwini [facility] 1.2.840.114 [id number] Univers 00:00:00 00:00:00 Secure Msg Renetta H [place] 350.1.13.10 ity of [place] 4.2.7.2.[place] Professio [phone] Ms dical nal 220 [facility] 2020-12-09 2020-12-09 Refill Shani [facility] 1.2.840.114 [id number] Univers 00:00:00 00:00:00 Jesusita PRIMARY 350.1.13.10 it y of [facility] 4.2.7.2.686 [place] PAVILLION [phone] Ms dicsd 056 [place] 2020-12-04 2020-12-04 Office [facility] 1.2.840.114 [id number] Univers 14:36:30 15:16:58 Visit Kirk Mena 350.1.13.10 ity [facility] 4.2.7.2.686 [facility] [phone] [place] 689249 [facility] 2020-12-04 2020-12-04 Out[facility] [id number] Univers 14:40:00 14:40:00 KIRK jed o [facility] 2020-12-04 2020-12-04 Orders Doctor RASHAD 1.2.840.114 [id number] Univers 00:00:00 00:00:00 Only Unassigned, YONY 350.1.13.10 ity [place] [facility] 4.2.7.2.686 Casey as [phone] [address] 2020-12-03 2020-12-03 Outpatient R [facility] [id number] Univers 14:40:00 14:40:00 KIRK jed o [facility] 2020-11-29 2020-11-29 [facility] 1.2.840.114 [id number] Univers 17:22:42 23:59:00 Encounter Leonardo Mena 350.1.13.10 ity [facility] 4.2.7.2.686 [facility] [phone] [facility] [address] 2020-11-29 2020-11-29 Outpatient [facility] [id number] Univers 00:00:00 00:00:00 LEONARDO adkins of [facility] 2020-11-29 2020-11-29 Orders Doctor RASHAD 1.2.840.114 [id number] Univers 00:00:00 00:00:00 Only UnassignedYONY 350.1.13.10 ity of [place] [facility] 4.2.7.2.686 Casey as [phone] [address] 2020-11-29 2020-11-29 Telephone [facility] 1.2.312.263 [id number] Univers 00:00:00 00:00:00 Deyanira Lucas 350.1.13.10 i ty of [place] 4.2.7.2.686 Casey as Professio [phone] Ms dical nal 044 [address] Office [facility] One 2020-11-26 2020-11-26 Hospital Andrew Herrera 1.2.840.114 [id number] Univers 14:00:00 23:59:00 Encounter Luana, Remote Device Check [facility] 350.1.13.10 ity of [facility] 4.2.7.2.686 Casey as [phone] [address] 2020-11-26 2020-11-26 Outpatient [facility] [id number] Univers 14:00:00 14:00:00 [facility] 2020-11-26 2020-11-26 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, Adc Lab [facility] 1.2.840.114 [id number] Univers 08:19:47 08:34:47 Visit Deyanira Garcia 350.1.13.10 ity of [place] 4.2.7.2.[place] Profess[place] [phone] Ms dical nal 353 [facility] 2020-11-26 2020-11-26 Outpatient R [facility] [id number] Univers 08:30:00 08:30:00 ity [facility] 2020-11-21 2020-11-21 Telemedici [facility] 1.2.840.114 [id number] Univers 11:56:11 16:40:39 ne Visit Deyanira Yang [facility] 350.1.13.10 ity of [place] 4.2.7.2.686 Casey as Professio [phone] Ms dical nal 044 [facility] One 2020-11-21 2020-11-21 Outpatient [facility] [id number] Univers 16:00:00 16:00:00 DEYANIRA adkins [facility] 2020-11-21 2020-11-21 Office Potts, [facility] 1.2.840.114 [id number] Univers 11:27:30 12:28:43 Visit Leonardo [place] 350.1.13.10 i ty of [place] 4.2.7.2.[place] Professio [phone] Ms dical nal 220 [facility] 2020-11-20 2020-11-20 Outpatient R SHARON [facility] [id number] Univers 08:45:00 08:45:00 ANDREW ity of [facility] 2020-11-19 2020-11-19 Patient [facility] 1.2.840.114 [id number] Univers 00:00:00 00:00:00 Secure Msg Leonardo Mena 350.1.13.10 ity of [place] 4.2.7.2.[place] Profess[place] [phone] Ms dical nal 220 [facility] 2020-11-19 2020-11-19 Telephone [facility] 1.2.220.552 [id number] Univers 00:00:00 00:00:00 Leonardo Mena 350.1.13.10 i ty of [place] 4.2.7.2.[place] Profess[place] [phone] Ms dical nal 220 [facility] 2020-11-14 2020-11-14 Emergency Evelin, [facility] 1.2.908.574 [id number] Univers 20:15:00 23:31:00 Dodie Mena 350.1.13.10 i ty of [place]2.[place].2.[place] [phone] [facility] [address] [place] [address] 2020-11-14 2020-11-14 Nurse Nurse, [facility] Urgent Care [facility] 1.2 .840.114 [id number] Univers 20:01:47 20:02:53 Visit Quinten Akers [facility] 350.1.13.10 ity of [place] 4.2.7.2.686 Casey as Professio [phone] Ms dical [facility] [address] Office Building One 2020-11-14 2020-11-14 Outpatient R [facility] [id number] Univers 19:40:00 19:40:00 ity of [facility] 2020-11-14 2020-11-14 Outpatient R OSWALD [facility] [id number] Univers 19:30:00 19:30:00 QUINTEN adkins o f [facility] 2020-11-11 2020-11-12 Emergency [facility] 1.2.840.114 [id number] Univers 20:50:00 00:06:00 Caterina Mena 350.1.13.10 i ty of [place].2.7.2.[place] [phone] [facility] [address] 2020-11-11 2020-11-12 Emergency X DARON, [facility] ERT [id number] Univers 20:50:00 00:06:00 CATERINA ity of [facility] 2020-11-12 2020-11-12 Telephone RASHAD Dorman 1.2.821.726 [id number] Univers 00:00:00 00:00:00 Karen Olive MERCADO 350.1.13.10 ity of [facility] 4.2.7.2.686 Casey as [phone] [facility] [address] 2020-11-11 2020-11-11 Orders Doctor RASHAD 1.2.840.114 [id number] Univers 00:00:00 00:00:00 Only Unassigned, YONY 350.1.13.10 ity of [place] [facility] 4.2.7.2.686 Casey as [phone] [facility] [address] 2020-11-10 2020-11-10 Refill [facility] 1.2.840.114 [id number] Univers 00:00:00 00:00:00 Corinnaarik Mena 350.1.13.10 i ty of [place].2.[place] Profess[place] [phone] Ms dical nal 220 [facility] 2020-11-08 2020-11-08 Office Isma [facility] 1.2.840.114 [id number] Univers 13:14:51 14:03:13 Visit Pk Mena 350.1.13.10 i ty of [place] 4.2.7.2.[place] Profess[place] [phone] Ms dical nal 085 [facility] 2020-11-08 2020-11-08 Outpatient R PK OLEA [facility] 10 [id number] Univers 13:20:00 13:20:00 PK OLEA i ty of [facility] 2020-11-01 2020-11-01 Office VAMSI Adams 1..840.114 7 [id number] Univers 07:49:36 08:19:36 Visit Fatmata Sarahi [facility] 350.1.13.10 i ty of CLINICS 4.2.7.2.[place] [phone] [facility] [address] 2020-11-01 2020-11-01 Outpatient R JAIMIE [facility] [id number] Univers 08:00:00 08:00:00 FATMATA ity [facility] 2020-10-25 2020-10-25 Hospital Andrew Herrera 1.2.840.114 [id number] Univers 08:45:00 23:59:00 Encounter Luana, Remote Device Check At [facility] 350.1.13.10 ity of [facility] 4.2.7.2.686 Casey as [phone] [facility] [address] 2020-10-25 2020-10-25 Outpatient [facility] [id number] Univers 08:45:00 08:45:00 [facility] 2020-10-23 2020-10-23 Office [facility] 1.2.840.114 [id number] Univers 15:26:25 16:27:25 Visit [facility] 350.1.13.10 i ty of [place] 4.2.7.2.686 [place] Professio [phone] Me dical nal 220 [facility] 2020-10-23 2020-10-23 Outpatient [facility] [id number] Univers 15:30:00 15:30:00 [facility] 2020-10-17 2020-10-17 Refill [facility] 1.2.840.114 [id number] Univers 00:00:00 00:00:00 Jesusita PRIMARY 350.1.13.10 it y of [facility] 4.2.7.2.686 [place] PAVILLION [phone] Me dical 0[address] 2020-10-17 2020-10-17 Refill [facility] 1.2.840.114 [id number] Univers 00:00:00 00:00:00 [facility] 350.1.13.10 i ty of [place] 4[place]2.7.2.686 [place] Light [phone] [place] [address] [address] Office Building 2020-10-17 2020-10-17 Refill [facility] 1.2.840.114 [id number] 00:00:00 00:00:00 Jesusita PRIMARY 350.1.13.10 [facility] 4.2.7.2.686 PAVILLION [phone] 05 2020-10-17 2020-10-17 Refill [facility] 1.2.840.114 [id number] 00:00:00 00:00:00 [facility] Health 350.1.13.10 [place] 4.2.7.2.686 Light [phone] [place] [address] Office Building 2020-10-09 2020-10-09 Outpatient R EDER, [facility] [id number] Univers 08:00:00 08:00:00 BRENNAN ity [facility] 2020-10-08 2020-10-08 Telephone RASHAD Adams 1.2.840.114 [id number] Univers 00:00:00 00:00:00 Fatmata YONY 350.1.13.10 it y [facility] 4.2.7.2.686 Casey as [phone] [address] 2020-10-08 2020-10-08 Telephone RASHAD Adams 1.2.840.114 7 [id number] 00:00:00 00:00:00 Fatmata YONY 350.1.13.10 HOSPITAL 4.2.7.2.686 [phone] [facility] 2020-10-05 2020-10-05 Patient VAMSI Adams 1.2.840.114 7 [id number] Univers 00:00:00 00:00:00 Secure Msg Fatmata Y HEALTH 350.1.13.[address] [facility] 4.2.7.2.[place] [phone] [address] 2020-10-05 2020-10-05 Patient VAMSI Adams 1.2.840.114 7 [id number] 00:00:00 00:00:00 Secure Msg Fatmata Y HEALTH 350.1.13.10 CLINICS 4.2.7.2.686 [phone] [facility] 2020-10-03 2020-10-03 Patient Jose, [facility] 1.2.840.114 [id number] Univers 00:00:00 00:00:00 Secure Msg Deyanira Yang Health 350.1.13.10 ity of [place] 4.2.7.2.686 Casey as Professio [phone] Ms dical nal [address] Office Building [facility] 2020-10-03 2020-10-03 Patient Jose [facility] 1.2.840.114 [id number] 00:00:00 00:00:00 Secure Msg Deyanira Yang Health 350.1.13.10 [place] 4.2.7.2.686 Professio [phone] nal 044 Office Building One 2020-09-28 2020-09-28 Telephone JHON Adams 1.2.840.114 [id number] Univers 00:00:00 00:00:00 Fatmata Sarahi HEALTH 350.1.13.10 i ty of [place] 4[place]2.7.2.[place] [phone] [facility] [address] 2020-09-27 2020-09-27 Outpatient [facility] [id number] Univers 12:16:53 23:59:00 SCOOTER adkins [facility] 2020-09-27 2020-09-27 [facility] 1.2.840.114 [id number] Univers 12:16:53 23:59:00 Encounter Scooter Lehman HEALTH 350.1.13.10 ity of [place] 4.2.7.2.[place] [phone] [facility] [address] 2020-09-27 2020-09-27 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 [facility] UNIVERSIT 1.2.840.114 7 [id number] Univers 10:43:31 10:58:31 Visit Fatmata Adams HEALTH 350.1.13.10 ity of [place] 4.2.7.2.[place] [phone] [facility] [address] 2020-09-27 2020-09-27 Office VAMSI Adams 1.2.840.114 7 [id number] Univers 09:21:30 10:37:53 Visit Fatmata Lehman HEALTH 350.1.13.10 i ty of [place] 4[place]2.7.2.[place] [phone] [facility] [address] 2020-09-27 2020-09-27 Office VAMSI Adams 1.2.840.114 7 [id number] 09:21:30 10:37:53 Visit Fatmata Y HEALTH 350.1.13.10 CLINICS 4.2.7.2.686 [id number] 071 2020-09-27 2020-09-27 Outpatient R JAIMIE [facility] [id number] Univers 10:00:00 10:00:00 [facility] 2020-09-24 2020-09-24 [facility] Sharon Andrewaayush Saeed 1.2.840.114 [id number] [facility] 11:45:00 23:59:00 Encounter Luana Remote Device Check At [facility] 350.1.13.10 ity [facility] 4.2.7.2.686 Casey as [phone] [facility] [address] 2020-09-24 2020-09-24 [facility] Darlin Herrera 1.2.840.114 [id number] 11:45:00 23:59:00 Encounter Andrew Yony 350.1.13.10 [facility] [phone] [facility] 2020-09-24 2020-09-24 Outpatient [facility] [id number] Univers 11:45:00 11:45:00 [facility] 2020-09-23 2020-09-23 Refill [facility] 1.2.840.114 [id number] Univers 00:00:00 00:00:00 Jesusita PRIMARY 350.1.13.10 it y of [facility] 4.2.7.2.686 [place] PAVILLION [phone] Ms dical [address] 2020-09-21 2020-09-21 Telephone [facility] 1.2.992.361 [id number] Univers 00:00:00 00:00:00 Deyanira A Health 350.1.13.10 i ty of [place] 4.2.7.2.686 Casey as Professio [phone] Ms dical nal 0[address] Office Building One 2020-09-17 2020-09-17 Outpatient R [facility] [id number] Univers 11:00:00 11:00:00 ity of [facility] 2020-09-17 2020-09-17 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, Adc Lab [facility] 1.2.840.114 [id number] Univers 08:27:45 08:42:45 Visit Deyanira Garcia 350.1.13.10 ity of [place].2.[place] Profess[place] [phone] [facility] 353 [facility] 2020-09-14 2020-09-14 Letter Unknown, [facility] 1.2.840.114 [id number] Univers 00:00:00 00:00:00 (Out) Attending SPECIALTY 350.1.13.10 ity of [place].2.[place] CENTER AT [phone] Ms alysd DAMION 072 [facility] 2020-09-12 2020-09-12 Emergency [facility] 1.2.771.965 [id number] Univers 11:34:00 13:38:00 Raad Mena 350.1.13.10 i ty of [place].2.[place] [phone] [facility] [address] [place] [address] 2020-09-03 2020-09-03 Telephone Jose [facility] 1.2.415.173 [id number] Univers 00:00:00 00:00:00 Deyanira Yang Health 350.1.13.10 i ty of [place] 4.2.7.2.686 Casey as Professio [phone] [facility] 044 [facility] 2020-08-30 2020-08-30 Refflores Montanez [facility] 1.2.840.114 [id number] Univers 00:00:00 00:00:00 Pradeep Mena 350.1.13.10 i ty of [place] 4.2.7.2.686 [place] Professio [phone] [facility] 044 [facility] 2020-08-30 2020-08-30 Refflores Espitia [facility] 1.2.840.114 [id number] Univers 00:00:00 00:00:00 [facility] 350.1.13.10 i ty of [place] 4[place]2.7.2.686 [place] Light [phone] [facility] [address] Office Building 2020-08-24 2020-08-24 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 840.114 [id number] Univers 10:01:47 10:11:47 Visit Jose Deyanira Yang Health 350.1.13.10 ity of [place] 4.2.7.2.686 Casey as Professio [phone] Ms dical nal [address] [place] [address] Office Building [facility] 2020-08-24 2020-08-24 Office [facility] 1.2.840.114 [id number] Univers 08:51:52 10:01:54 Visit Deyanira Yang Health 350.1.13.10 i ty of [place] 4.2.7.2.686 Casey as Professio [phone] Ms dical [address] Office [facility] 2020-08-24 2020-08-24 Outpatient [facility] [id number] Univers 09:00:00 09:00:00 DEYANIRA ity of [facility] 2020-08-23 2020-08-23 Hospital Andrew Herrera 1.2.840.114 [id number] Univers 11:00:00 23:59:00 Encounter Luana, Remote Device Check At [facility] 350.1.13.10 ity of [facility] 4.2.7.2.686 Casey as [phone] [address] 2020-08-23 2020-08-23 Outpatient R SHARON [facility] [id number] Univers 11:00:00 11:00:00 ANDREW ity of [facility] 2020-08-14 2020-08-14 Patient [facility] 1.2.840.114 [id number] Univers 00:00:00 00:00:00 Secure Msg Deyanira Yang [place] 350.1.13.10 ity of [place] 4[place].2.[place] Profess[place] [phone] Ms dicsd nal [address] [place] [address] 2020-08-07 2020-08-07 Outpatient R DELROY [facility] [id number] Univers 09:00:00 09:00:00 WENTONG ity of [facility] 2020-08-03 2020-08-03 Patient Fellow, UNIVERSIT 1.2.244.874 [id number] Univers 00:00:00 00:00:00 Secure [facility] HEALTH 350.1.13.[address] [facility] 4.2.7.2.[place] [id number] [facility] [address] 2020-08-01 2020-08-01 Outpatient R KERRY, [facility] [id number] Univers 15:40:00 15:40:00 QIARAKEL karlay o f [facility] 2020-08-01 2020-08-01 Office [facility] 1.2.840.114 [id number] Univers 12:59:20 13:26:36 Visit Kirk [place] 350.1.13.10 ity [facility] 4.2.7.2.[place] [phone] Ms dical nal 059 [facility] 2020-08-01 2020-08-01 Outpatient R KERRY, [facility] [id number] Univers 13:00:00 13:00:00 QIATIERRARODGER karlay o f [facility] 2020-07-30 2020-07-30 Urgent Provider, [facility] Urgent Care [facility] 1.2.840.114 [id number] Univers 15:06:48 15:51:54 [facility] 350.1.13.10 ity [facility] 4.2.7.2.686 Casey as Professio [phone] Ms dical nal [address] Office Building One 2020-07-30 2020-07-30 Out[facility] [id number] Univers 15:20:00 15:20:00 TESSA ity [facility] 2020-07-25 2020-07-25 Kenton Montanez [facility] 1.2.840.114 [id number] Univers 00:00:00 00:00:00 Pradeep [place] 350.1.13.10 i ty of [place].2.7.2.686 [place] Profess[place] [phone] Ms dical nal 044 [facility] 2020-07-23 2020-07-23 [facility] Andrew Herrera 1.2.840.114 [id number] Univers 11:00:00 23:59:00 Encounter Luana, Remote Device Check [facility] 350.1.13.10 ity of [place] [address].2.7.2.686 Casey as [phone] [address] 2020-07-23 2020-07-23 Outpatient [facility] [id number] Univers 11:00:00 11:00:00 ANDREW ity [facility] 2020-07-21 2020-07-21 Urgent Provider, [facility] Urgent Care [facility] 1.2.840.114 [id number] Univers 11:52:39 12:39:22 Care Warner Castelan 350.1.13.10 ity [place] [address].2.7.2.686 Casey as Professio [phone] Ms dical nal [address] Office Building One 2020-07-21 2020-07-21 Outpatient R [facility] [id number] Univers 12:00:00 12:00:00 ity [facility] 2020-07-18 2020-07-18 Telephone RASHAD Figueroa 1.2.840.114 [id number] Univers 00:00:00 00:00:00 Ashly MERCADO 350.1.13.10 i ty of [place] [address].2.7.2.686 Casey as [phone] [address] 2020-07-18 2020-07-18 Nurse RASHAD Rose 1.2.840.114 [id number] Univers 00:00:00 00:00:00 Triage Genesis MERCADO 350.1.13.10 i ty of [address] Casey as [phone] [address] 2020-07-06 2020-07-06 Office Isma [facility] 1.2.840.114 [id number] Univers 13:14:33 13:52:58 Visit Pk Mena 350.1.13.10 i ty of [place] [address].2.7.2.686 [place] Profess[place] [phone] Ms dical nal 085 [facility] 2020-07-06 2020-07-06 Outpatient R PK OLEA [facility] 10 [id number] Univers 13:20:00 13:20:00 PK OLEA i ty of [facility] 2020-06-26 2020-06-26 Office [facility] 1.2.840.114 [id number] Univers 10:36:03 11:38:39 Visit Kirk [place] 350.1.13.10 ity of [place] 4.2.7.2.[place] [phone] Ms dical nal 059 [facility] 2020-06-26 2020-06-26 Out[facility] [id number] Univers 10:40:00 10:40:00 [facility] f [facility] 2020-06-22 2020-06-22 [facility] Andrew Darlin 1.2.840.114 [id number] Univers 12:30:00 23:59:00 Encounter Luana, Remote Device Check At [facility] 350.1.13.10 ity of [facility] 4.2.7.2.686 Casey as [phone] [address] 2020-06-22 2020-06-22 [facility] [id number] Univers 12:30:00 12:30:00 ANDREW ity [facility] 2020-06-07 2020-06-07 [facility] 1.2.840.114 [id number] Univers 00:00:00 00:00:00 [facility] [id number] it y of [place] 4.2.7.2.686 Casey as Professio [phone] Ms dical nal 044 [facility] 2020-06-04 2020-06-04 Office [facility] 1.2.840.114 [id number] Univers 11:14:12 11:34:21 Visit Pradeep Mena 350.1.13.10 i ty [place] [phone] Ms dical nal 044 [facility] 2020-06-04 2020-06-04 [facility] [id number] Univers 11:30:00 11:30:00 PRADEEP adkins [facility] 2020-05-30 2020-05-30 Telemedici Lizette [facility] 1.2.840.114 [id number] Univers 09:17:02 09:47:02 ne Visit Devikanayana Alex MataLutcher [id number] ity of [place] [phone] [facility] 085 [facility] 2020-05-30 2020-05-30 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 10 it[id number] [phone] [facility] 353 [facility] 2020-05-30 2020-05-30 Outpatient R BIBIANA GREGORY [facility] [id number] Univers 09:00:00 09:00:00 BIBIANA GREGORY ity of [facility] 2020-05-30 2020-05-30 Patient Doctor [facility] 1.2.840.114 [id number] Univers 00:00:00 00:00:00 Secure Msg Unassigned, Health 350.1.13.10 ity of [place] 4.2.7.2.686 Casey as Professio [phone] [facility] 044 [facility] One 2020-05-29 2020-05-29 Refill Kerry [facility] 1.2.840.114 [id number] Univers 00:00:00 00:00:00 [facility] Health 350.1.13.10 i ty [place] [phone] [facility] [address] Office [facility] 2020-05-25 2020-05-25 Patient Henry [facility] 1.2.840.114 [id number] Univers 00:00:00 00:00:00 Secure Msg Ashly [place] 350.1.13.10 ity of [place] [phone] [facility] 044 [facility] 2020-05-23 2020-05-23 Outpatient [facility] [id number] Univers 16:15:00 16:15:00 PRADEEP itsarahi [facility] 2020-05-22 2020-05-22 Hospital Andrew Herrera 1.2.840.114 [id number] Univers 10:15:00 23:59:00 Encounter Luana, Remote Device Check [facility] 350.1.13.10 ity of Hospital 4.2.7.2.686 [place] as [phone] [facility] [address] 2020-05-22 2020-05-22 Outpatient Otis [facility] [id number] Univers 10:15:00 10:15:00 ANDREW [facility] 2020-05-20 2020-05-20 Kenton Herndon [facility] 1.2.840.114 [id number] Univers 00:00:00 00:00:00 [facility] 350.1.13.10 it y of [place] 4.2.7.2.686 [place] as Professwilfrid [phone] [address] Office Building One 2020-05-11 2020-05-11 Outpatient [facility] [id number] Univers 14:30:00 14:30:00 PRADEEP adkins [facility] 2020-05-11 2020-05-11 Patient Doctor RASHAD Calderon2.840.114 [id number] Univers 00:00:00 00:00:00 Secure Msg Unassigned, YONY 350.1.13.10 ity of [place] [facility] 4.2.7.2.686 Casey as [phone] [facility] [address] 2020-05-11 2020-05-11 Patient Doctor RASHAD 1.2.840.114 [id number] Univers 00:00:00 00:00:00 Secure Msg Unassigned, YONY 350.1.13.10 ity of [place] [facility] 4.2.7.2.686 Casey as [phone] [facility] [address] 2020-05-10 2020-05-10 Patient Doctor RASHAD Calderon2.840.114 [id number] Univers 00:00:00 00:00:00 Secure Msg Unassigned, YONY 350.1.13.10 ity of [place] [facility] 4.2.7.2.686 Casey as [phone] [address] 2020-05-10 2020-05-10 Patient Doctor RASHAD 1.2.840.114 [id number] Univers 00:00:00 00:00:00 Secure Msg UnassYONY tena 350.1.13.10 ity of [place] [facility] 4.2.7.2.686 Casey as [phone] [facility] [address] 2020-04-26 2020-04-26 [facility] 1.2.840.114 [id number] Univers 00:00:00 00:00:00 Jesusita PRIMARY 350.1.13.10 it y of [facility] 4.2.7.2.[place] [phone] Ms dical 056 [address] 2020-04-23 2020-04-23 Hospital YayotoryAndrew 1.2.840.114 [id number] Univers 09:30:00 23:59:00 Encounter Luana, Remote Device Check At [facility] 350.1.13.10 ity of [facility] 4.2.7.2.686 Casey as [phone] [facility] [address] 2020-04-23 2020-04-23 Outpatient R SHARON [facility] [id number] Univers 09:30:00 09:30:00 ANDREW ity of [facility] 2020-04-23 2020-04-23 Patient Delroy [facility] 1.2.840.114 [id number] Univers 00:00:00 00:00:00 Secure Msg Leonardo Mena 350.1.13.10 it[place] of [place] [phone] Me dical nal 220 [facility] 2020-04-23 2020-04-23 Patient Lisseth [facility] 1.2.840.114 [id number] Univers 00:00:00 00:00:00 Secure Msg Pradeep Mena 350.1.13.10 ity of [place].7.2.[place] [phone] Ms dical nal 044 [facility] 2020-04-20 2020-04-20 Emergency X ROBBIN [facility] ERT [id number] Univers 13:26:30 14:42:00 RAAD ity [facility] 2020-04-20 2020-04-20 Emergency Robbin [facility] 1.2.372.664 [id number] Univers 13:26:30 14:42:00 Raad Mena 350.1.13.10 i ty of [place] 4.2.7.2.[place] [phone] [facility] [address] 2020-04-18 2020-04-18 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, Adc Lab [facility] 1.2.840.114 [id number] Univers 16:02:26 16:17:26 Visit Pradeep Montanez 350.1.1 3.10 ity of [place].2.7.2.[place] [phone] Ms dical nal 353 [facility] 2020-04-18 2020-04-18 Office Lisseth [facility] 1.2.840.114 [id number] Univers 15:38:51 15:53:51 Visit Pradeep Mena 350.1.13.10 i ty of [place] 4.2.7.2.[place] [phone] Ms dical nal 044 [facility] 2020-04-18 2020-04-18 Outpatient R LISSETH [facility] [id number] Univers 15:45:00 15:45:00 PRADEEP adkins [facility] 2020-04-18 2020-04-18 Orders Doctor RASHAD 1.2.840.114 [id number] Univers 00:00:00 00:00:00 Only Unassigned, YONY 350.1.13.10 ity of [place] [facility] 4.2.7.2.686 Casey as [phone] [facility] [address] 2020-04-17 2020-04-17 Patient Hardeep [facility] 1.2.840.114 [id number] Univers 00:00:00 00:00:00 Secure [facility] 350.1.13.10 ity of [place] 4.2.7.2.686 [place] [phone] [facility] [address] Office Building 2020-04-16 2020-04-16 Nurse RASHAD Dorman 1.2.840.114 [id number] Univers 00:00:00 00:00:00 Triage Karen MERCADO 350.1.13.10 ity of HOSPITAL 4.2.7.2.686 Casey as [phone] [address] 2020-04-12 2020-04-12 Patient Doctor RASHAD 1.2.840.114 [id number] Univers 00:00:00 00:00:00 Secure Msg Unassigned, YONY 350.1.13.10 ity of [place] [facility] 4.2.7.2.686 [place] as [phone] [address] 2020-04-11 2020-04-11 [facility]medici [facility] 1.2.840.114 [id number] Univers 07:50:45 13:32:34 ne Visit [facility] 350.1.13.10 i ty of [place] 4.2.7.2.686 [place] [phone] [place] 960062 [place] Office Building 2020-04-11 2020-04-11 Outpatient Otis MEIER [facility] [id number] [address] [place] [address] 10:30:00 10:30:00 MOI ity of [facility] 2020-04-11 2020-04-11 Patient Doctor RASHAD 1.2.840.114 [id number] Univers 00:00:00 00:00:00 Secure Msg Unassigned, YONY 350.1.13.10 ity of [place] [facility] 4.2.7.2.686 Casey as [phone] [address] 2020-04-03 2020-04-03 Outpatient Otis MONTANEZ [facility] [id number] Univers 16:00:00 16:00:00 PRADEEP adkins of [facility] 2020-04-03 2020-04-03 Telemedici [facility] 1.2.840.114 [id number] Univers 08:21:32 08:36:32 ne Visit Pradeep Mena 350.1.13.10 ity of [place].2.7.2.[place] [phone] Ms dical [facility] 044 [address] [facility] 2020-04-02 2020-04-02 Outpatient R [facility] [id number] Univers 15:15:00 15:15:00 PRADEEP ity of [facility] 2020-04-02 2020-04-02 Transition Dania Gibbs 1.2.840.114 [id number] Univers 00:00:00 00:00:00 of Care Carrie Mcclelland 350.1.13.10 it y of [place] 4.2.7.2.686 [place] [phone] [facility] [address] 2020-04-02 2020-04-02 Patient Hardeep [facility] 1.2.840.114 [id number] Univers 00:00:00 00:00:00 Secure Ms Moi Health 350.1.13.10 ity of [place] 4.2.7.2.686 [place] a Light [phone] [facility] 092 [address] Office Building 2020-03-26 2020-03-30 Hospital Andrei Hall 1.2.840.114 [id number] Univers 07:58:00 11:00:00 Encounter S Yony 350.1.13.10 ity of [facility] 4.2.7.2.686 [place] as [phone] [place] 691298 [place] 2020-03-30 2020-03-30 Telephone [facility] 1.2.840.114 [id number] Univers 00:00:00 00:00:00 Ashly Health 350.1.13.10 i ty of [place] 4.2.7.2.686 [place] as Professio [phone] Ms dical nal [address] [place] [address] Office Building One 2020-03-30 2020-03-30 Telephone [facility] 1.2.840.114 [id number] Univers 00:00:00 00:00:00 Ashly Health 350.1.13.10 i ty of [place] 4.2.7.2.686 [place] as Professio [phone] Ms dical nal [address] [place] [address] Office Building One 2020-03-23 2020-03-23 Laboratory Nurse, [facility] General Surgery [facility] 1.2.840.114 [id number] Univers 08:56:33 09:47:31 Only Unknown, Attending Ifeanyi 350.1.13.1 0 ity of [place] 4.2.7.2.[place] [phone] Ms dical nal 377 [facility] 2020-03-23 2020-03-23 Outpatient R HERNANDO [facility] [id number] Univers 09:15:00 09:15:00 ATTENDING ity of [facility] 2020-03-23 2020-03-23 Telephone Andrei Hall [facility] 1.2.840.114 [id number] Univers 00:00:00 00:00:00 S Ifeanyi 350.1.13.10 i ty of [place]2.[place].2.[place] [phone] [facility] [address] 2020-03-22 2020-03-22 Patient Henry [facility] 1.2.840.114 [id number] Univers 00:00:00 00:00:00 Secure Msg [facility] 350.1.13.10 ity of [place] 4.2.7.2.686 [place] as Professio [phone] Ms dical nal 0[address] Office [facility] One 2020-03-14 2020-03-14 Outpatient R LISSETH [facility] [id number] Univers 11:15:00 11:15:00 PRADEEP ity [facility] 2020-03-14 2020-03-14 Telemedici [facility] 1.2.840.114 [id number] Univers 08:22:33 08:37:33 ne Visit Pradeep Mena 350.1.13.10 ity of [place] 4.2.7.2.686 [place] [phone] Ms dical nal 044 [facility] 2020-03-06 2020-03-06 Patient Doctor RASHAD 1.2.840.114 [id number] Univers 00:00:00 00:00:00 Secure Msg Unassigned, YONY 350.1.13.10 [facility] 4.2.7.2.686 [place] as [phone] [address] 2020-03-02 2020-03-02 Outpatient R PK OLEA [facility] 10 [id number] Univers 13:20:00 13:20:00 PK OLEA i ty of [facility] 2020-03-02 2020-03-02 Telemedici Isma, [facility] 1.2.840.114 [id number] Univers 08:18:56 08:38:56 ne Visit Pk Mena 350.1.13.10 ity of [place].2.7.2.[place] [phone] Ms dical nal 085 [facility] 2020-03-02 2020-03-02 Patient Doctor [facility] 1.2.840.114 [id number] Univers 00:00:00 00:00:00 Secure Msg Unassigned, Health 350.1.13.10 ity of [place] 4.2.7.2.686 [place] as Professio [phone] Ms dical nal [address] Office Building [facility] 2020-02-25 2020-02-25 Refill Doctor [facility] 1.2.840.114 [id number] Univers 00:00:00 00:00:00 Unassigned, Health 350.1.13.10 ity of [place] 4.2.7.2.686 [place] as Professio [phone] Ms dical nal 044 [address] Office Building [facility] 2020-02-23 2020-02-23 Patient Kerry, [facility] 1.2.840.114 [id number] Univers 00:00:00 00:00:00 Secure Msg [facility] Health 350.1.13.10 ity of [place].2.[place] [phone] [facility] [address] Office Building 2020-02-20 2020-02-20 Hospital Andrew Herrera 1.2.840.114 [id number] Univers 11:45:00 23:59:00 Encounter Luana, Remote Device Check At [facility] 350.1.13.10 ity of Hospital 4.2.7.2.686 [place] as [phone] [place] [address] Branch 2020-02-20 2020-02-20 Outpatient R SHARON [facility] [id number] Univers 11:45:00 11:45:00 ANDREW ity of [facility] 2020-02-20 2020-02-20 Outpatient R ANDREI HALL [facility] [id number] Univers 08:30:00 08:30:00 ity of [facility] 2020-02-20 2020-02-20 Telephone Outpatient, Darlin 1.2.840.114 [id number] Univers 00:00:00 00:00:00 Pm/Icd Yony 350.1.13.10 it y of Check [facility] 4.2.7.2.686 [place] as [phone] [facility] [address] 2020-02-18 2020-02-18 Patient Doctor RASHAD 1.2.840.114 [id number] Univers 00:00:00 00:00:00 Secure Msg Unassigned, YONY 350.1.13.10 ity of [place] [facility] 4.2.7.2.686 Casey as [phone] [facility] [address] 2020-02-17 2020-02-17 Telephone Jose, [facility] 1.2.728.929 [id number] Univers 00:00:00 00:00:00 Deyanira Yang Health 350.1.13.10 i ty of [place] 4.2.7.2.686 [place] as Professio [phone] [address] Office [facility] 2020-02-15 2020-02-15 Emergency X PARADISE [facility] ERT [id number] Univers 17:43:15 23:45:00 SERA ity of [facility] 2020-02-15 2020-02-15 Emergency SiegelRaad [facility] 1.2.840. 114 [id number] Univers 17:43:15 23:45:00 Sera Navarrete 350.1.13.10 ity of [place].2.[place] [phone] [facility] [address] 2020-02-15 2020-02-15 Urgent Pob1, Acute Care Clinic [facility] 1. 2.840.114 [id number] Univers 16:09:54 18:06:11 Care Deyanira Garcia Health 350.1.13.10 ity of [place] 4.2.7.2.686 [place] as Professio [phone] [address] Office Building [facility] 2020-02-15 2020-02-15 Outpatient R JOSE [facility] [id number] Univers 16:20:00 16:20:00 DEYANIRA ity of [facility] 2020-02-15 2020-02-15 Telephone Pob1, Acute [facility] 1.2.840.114 [id number] Univers 00:00:00 00:00:00 [facility] 350.1.13.10 ity of [place] 4.2.7.2.686 [place] as Professio [phone] Ms dical nal [address] Office [facility] 2020-02-13 2020-02-13 Telephone [facility] 1.2.935.773 [id number] Univers 00:00:00 00:00:00 Moi Health 350.1.13.10 it y of [place] 4.2.7.2.686 [facility] [phone] [facility] [address] Office [facility] 2020-02-13 2020-02-13 Telephone Henry, [facility] 1.2.840.114 [id number] Univers 00:00:00 00:00:00 [facility] 350.1.13.10 i ty of [place] 4.2.7.2.686 [place] as Professio [phone] Ms dical nal 044 [facility] 2020-02-06 2020-02-06 Office [facility] 1.2.840.114 [id number] Univers 10:34:42 11:41:24 Visit Kirk Mena 350.1.13.10 ity of [place] 4.[place].7.2.[place] [phone] Ms dical nal 059 [facility] 2020-02-06 2020-02-06 Outpatient R KERRY [facility] [id number] Univers 10:40:00 10:40:00 KIRK ity o f [facility] 2020-01-31 2020-01-31 Hospital [facility] 1.2.840.114 [id number] Univers 08:35:00 23:59:00 Encounter Moi [place] 350.1.13.10 ity of [place] 4.2.7.2.686 [facility] [phone] [facility] [address] 2020-01-31 2020-01-31 Office Potts, [facility] 1.2.840.114 [id number] Univers 15:16:13 16:25:57 Visit Leonardo Mena 350.1.13.10 i ty of [place] 4.2.7.2.[place] [phone] Me dical nal 220 [facility] 2020-01-31 2020-01-31 Outpatient [facility] [id number] Univers 00:00:00 00:00:00 MOI ity [facility] 2020-01-23 2020-01-23 Outpatient R SEAN, [facility] [id number] Univers 10:40:00 10:40:00 CHIDI ity [facility] 2020-01-19 2020-01-19 Hospital YayoAndrew spears 1.2.840.114 [id number] Univers 08:00:00 23:59:00 Encounter Luana, Remote Device Check At [facility] 350.1.13.10 ity of [facility] 4.2.7.2.686 Casey as [phone] [facility] [address] 2020-01-19 2020-01-19 [facility] [id number] Univers 08:00:00 08:00:00 ANDREW ity [facility] 2020-01-18 2020-01-18 Office [facility] 1.2.840.114 [id number] Univers 11:05:39 16:04:28 Visit [facility] 350.1.13.10 it y of [place] 4.2.7.2.686 [place] [phone] [facility] [address] Office Building 2020-01-18 2020-01-18 Outpatient R HARDEEP, [facility] [id number] Univers 12:00:00 12:00:00 MOI ity [facility] 2020-01-13 2020-01-13 Patient Doctor [facility] 1.2.840.114 [id number] Univers 00:00:00 00:00:00 Secure Msg Unassigned, Health 350.1.13.10 ity [place] Ifeanyi 4.2.7.2.686 [place] as Professio [phone] Ms dical nal [address] Office Building One 2020-01-12 2020-01-12 Orders Doctor RASHAD 1.2.840.114 [id number] Univers 00:00:00 00:00:00 Only Unassigned, YONY 350.1.13.10 ity of [place] [facility]OSPITAL 4.2.7.2.686 Casey as [phone] [facility] [address] 2020-01-04 2020-01-04 [facility] 1.2.840.114 [id number] Univers 00:00:00 00:00:00 [facility] 350.1.13.10 i ty of [place] 4.2.7.2.686 [place] as Professio [phone] Ms dical nal [address] Office [facility] 2020-01-02 2020-01-02 Office [facility] 1.2.840.114 [id number] Univers 14:46:44 15:26:44 Visit [facility] 350.1.13.10 i ty of [place] 4.2.7.2.686 [place] as Professio [phone] Ms dical nal 044 [facility] 2019-12-27 2019-12-27 Transition Dania Tarango 1.2.840.114 [id number] Univers 00:00:00 00:00:00 of Care Dat Celia Mcclelland 350.1.13.10 ity of [place].2.7.2.[place] [phone] [facility] [address] 2019-12-25 2019-12-26 Hospital Darlin Swanson 1.2.840.114 [id number] Univers 02:07:31 16:35:00 Encounter Julio Ballardy 350.1.13.10 ity of Hospital 4.2.7.2.686 [place] as [phone] [facility] [address] 2019-12-13 2019-12-13 Patient [facility] 1.2.840.114 [id number] Univers 00:00:00 00:00:00 Secure Msg [facility] 350.1.13.10 ity of [place] 4.2.7.2.686 [place] as Professio [phone] Ms dical nal [address] Office [facility] 2019-12-10 2019-12-10 Telephone [facility] 1.2.929.123 [id number] Univers 00:00:00 00:00:00 Deyanira Yang Health 350.1.13.10 i ty of [place] 4.2.7.2.686 [place] as Professio [phone] [facility] 044 [facility] 2019-12-09 2019-12-09 Refill [facility] 1.2.840.114 [id number] Univers 00:00:00 00:00:00 [facility] 350.1.13.10 i ty of [place] 4.2.7.2.686 [place] as Professio [phone] [facility] 044 [facility] 2019-12-07 2019-12-07 Office [facility] 1.2.840.114 [id number] Univers 11:11:56 11:48:53 Visit Kirk [place] 350.1.13.10 ity of [place] 4.2.7.2.[place] [phone] [facility] nal 059 [facility] 2019-12-06 2019-12-06 Office [facility] 1.2.840.114 [id number] Univers 11:01:39 13:47:23 Visit [facility] 350.1.13.10 i ty of [place] 4.2.7.2.686 [place] as Professio [phone] [facility] 044 [facility] One 2019-12-02 2019-12-02 Telephone [facility] 1.2.840.114 [id number] Univers 00:00:00 00:00:00 [facility] 350.1.13.10 i ty of [place] 4.2.7.2.686 [place] as Professio [phone] [facility] 044 [facility] One 2019-11-19 2019-11-20 Emergency X ROBBIN [facility] ERT [id number] Univers 21:13:32 00:53:00 RAAD adkins [facility] 2019-11-18 2019-11-18 Patient Doctor [facility] 1.2.840.114 [id number] Univers 00:00:00 00:00:00 Secure Msg Unassigned, Health 350.1.13.10 ity of [place] 4.2.7.2.686 [place] as Professio [phone] Ms dicsd nal [address] Office Building One 2019-08-05 2019-08-05 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 1, Adc Lab [facility] 1.2.840.114 [id number] Univers 07:27:44 07:42:44 Visit Leonardo [place] 350.1.13.10 ity of [place].2.[place] [phone] [facility] [address] 2019-08-02 2019-08-02 Office Delroy [facility] 1.2.840.114 [id number] Univers 15:21:27 15:48:38 Visit Leonardo Ifeanyi 350.1.13.10 i ty of [place] 4.2.7.2.[place] [phone] Ms dical nal 220 [facility] 2019-07-18 2019-07-18 [facility] 1.2.840.114 [id number] Univers 14:00:00 23:59:00 Encounter Luana Remote Device Check At [facility] 350.1.13.10 ity of [facility] 4.2.7.2.686 Casey as [phone] [facility] [address] 2019-07-14 2019-07-14 [facility] 1.2.840.114 [id number] Univers 07:48:00 08:45:00 Encounter Shefali Mena 350.1.13.10 ity of [place] [phone] [address] 2019-06-30 2019-06-30 [facility] 1.2.840.114 [id number] Univers 07:44:00 10:33:00 Encounter Shefali Mena 350.1.13.10 ity of [place].2.[place].2.[place] [phone] [address] 2019-06-30 2019-06-30 Orders Doctor KIRKLAND 1.2.840.114 [id number] Univers 00:00:00 00:00:00 Only Unassigned, YONY 350.1.13.10 ity of [place] H[facility]PITAL 4.2.7.2.686 Casey as [phone] [facility] [address] 2019-06-21 2019-06-21 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 1, Adc Lab [facility] 1.2.840.114 [id number] Univers 10:56:48 11:11:48 Visit Radha Shefali Tobias Ifeanyi 350.1.1 3.10 ity of [place] 4.2.7.2.686 [place] [facility] [phone] [facility] [address] 2019-06-21 2019-06-21 Orders Doctor RASHAD 1.2.840.114 [id number] Univers 00:00:00 00:00:00 Only Unassigned, YONY 350.1.13.10 ity of [place] [facility]PITAL 4.2.7.2.686 Casey as [phone] [address] 2019-06-20 2019-06-20 Office Henry [facility] 1.2.840.114 [id number] [facility] 12:05:08 12:50:36 Visit [facility] 350.1.13.10 i ty of [place] 4.2.7.2.686 [place] as Professio [phone] [facility] [address] Office [facility] One 2016-06-26 2016-06-26 Outpatient MHIE MHIE [id number] Memoria 10:30:00 10:30:00 02 nahun Leroy 2016-06-26 2016-06-26 Outpatient MHIE MHIE [id number] Memoria 10:30:00 10:30:00 02 nahun Leroy 2016-04-02 2016-04-02 Outpatient MHIE MHIE [id number] Memoria 11:00:00 11:00:00 01 nahun Leroy 2016-04-02 2016-04-02 Outpatient MHIE MHIE [id number] Memoria 11:00:00 11:00:00 01 nahun Leroy 2015-08-21 2015-08-22 Outpatient [facility] [id number] Memoria 17:47:00 04:59:00 otis Leroy 73 nahun [facility] 2015-08-21 2015-08-22 Outpatient [facility] [id number] Memoria 17:47:00 04:59:00 r Rad 73 l [facility] 2015-08-21 2015-08-21 Outpatient [place] [facility] [id number] 12:47:00 23:59:00 Evan Mandujano 2015-07-24 2015-07-24 Outpatient CLAY WILLIAMSON [id number] Memoria 09:00:00 09:00:00 00 l Ceiba 2015-07-24 2015-07-24 Outpatient CLAY CUCA [id number] Memoria 09:00:00 09:00:00 00 [facility] 2015-05-22 2015-05-22 nullFlavo [facility] [id number] Memoria 01:12:00 04:29:00 Emergency r Rad 00 [facility] 2015-05-22 2015-05-22 [facility] [id number] Memoria 01:12:00 04:29:00 Emergency r [place] 00 l [facility] 2015-05-21 2015-05-21 Outpatient [facility], 2.16.840. [id number]. [id number] 20:12:00 23:29:00 [place] [id number]. [id number] 00 3.615.0.1 5.0.101 01 Results Test Description Test Time Test Comments Results Result Comments Source COMP. METABOLIC PANEL ([id number]) 2022-12-16 04:24:31 Test Item Value Reference Range Interpretation Comme nts NA (test code = 6769781465) 134 mmol/L 135-145 L K (test code = 8199755259) 4.4 mmol/L 3.5-5.0 CL (test code = 1760870076) 96 mmol/L 98-108 L CO2 TOTAL (test code = 3342814197) 28 mmol/L 23-31 AGAP (test code = 9014309146) 2-16 BUN (test code = 6826376265) 22 mg/dL 7-23 GLUCOSE (test code = 6768338235) 295 mg/dL 70-110 H CREATININE (test code = 1.22 mg/dL 0.60-1.25 4218550453) TOTAL BILI (test code = 0.7 mg/dL 0.1-1.4 4809517733) CALCIUM (test code = 4883792586) 9.2 mg/dL 8.6-10.6 T PROTEIN (test code = 1106030310) 7.3 g/dL 6.3-8.2 ALBUMIN (test code = 4704700983) 4.3 g/dL 3.5-5.0 ALK PHOS (test code = 3888998297) 132 U/L 34-122 H ALTv (test code = 1742-6) 50 U/L 5-50 AST(SGOT) (test code = 5850147987) 37 U/L 13-40 eGFR (test code = 2646559770) mL/min/1.73m2 SPARKLE (test code = SPARKLE) Association of Glomerular Filtration Rate (GFR) and Staging of Kidney Disease* + +-------- + ------+| GFR (mL/min/1.73 m2) ?| With Kidney Damage ?| ?Without Kidney Damage+ +-- + +| ?>90 ?| ?Stage one ?| ? Normal ?+ +------- + -------+| ?60-89 ?| ?Stage two ?| ? Decreased GFR ? + +-------- + ------+| ?30-59 ?| ?Stage three ?| ? Stage three ? + +-------- + ------+| ?15-29 ?| ?Stage four ? | ? Stage four ?+ +------- + -------+| ?<15 (or dialysis) ? ?| ?Stage five ? | ? Stage five ?+ +------- + -------+ *Each stage assumes the associated GFR level has been in effect for at least three months. ?Stages 1 to 5, with or without kidney disease, indicate chronic kidney disease. Notes: Determination of stages one and two (with eGFR >59mL/min/1.73 m2) requires estimation of kidney damage for at least three months as defined by structural or functional abnormalities of the kidney, manifested by either:Pathological abnormalities or Markers of kidney damage (including abnormalities in the composition of the blood or urine or abnormalities in imaging tests). Lab Interpretation (test code = Abnormal 49097-6) [facility] WITH [id number] 04:12:36 Test Item Value Reference Range Interpretation Comments WBC (test code = See_Comment H [Automated 6690-2) message] The sy stem which generated this result transmitted reference range : 4.20 - 10.70 10*3/?L. The reference range was not used to interpret this result as normal/abnormal . RBC (test code = See_Comment L [Automated 789-8) message] The sy stem which generated this result transmitted reference range : 4.26 - 5.52 10*6/?L. The reference range was not used to interpret this result as normal/abnormal . HGB (test code = 12.7 g/dL 12.2-16.4 718-7) HCT (test code = 40.7 % 38.4-49.3 4544-3) MCV (test code = 97.1 fL 81.7-95.6 H 787-2) MCH (test code = 30.3 pg 26.1-32.7 785-6) MCHC (test code = 31.2 g/dL 31.2-35.0 786-4) RDW-SD (test code = 49.7 fL 38.5-51.6 28349-9) RDW-CV (test code = 14.0 % 12.1-15.4 788-0) PLT (test code = See_Comment [Automated 777-3) message] The sy stem which generated this result transmitted reference range : 150 - 328 10*3/ ?L. The reference r emanuel was not used to interpret this result as normal/abnormal . MPV (test code = 10.1 fL 9.8-13.0 45424-6) NRBC/100 WBC (test See_Comment [Automat ed code = 4860398501) message] The system which generated this result transmitted reference range : 0.0 - 10.0 /100 WBCs. The refer ence range was not u sed to interpret th is result as normal/abnormal . NRBC x10^3 (test code See_Comment [Auto mated = 0673021323) message] The s ystem which generated this result transmitted reference range : 10*3/?L. The reference range was not used to interpret this result as normal/abnormal . GRAN MAT (NEUT) % 71.6 % (test code = 770-8) IMM GRAN % (test code 0.70 % = 3448590759) LYMPH % (test code = 14.1 % 736-9) MONO % (test code = 6.5 % 5905-5) EOS % (test code = 6.4 % 713-8) BASO % (test code = 0.7 % 706-2) GRAN MAT x10^3(ANC) 8.67 10*3/uL 1.99-6.95 H (test code = 0218875580) IMM GRAN x10^3 (test 0.09 10*3/uL 0.00-0.06 H code = 1807433062) LYMPH x10^3 (test code 1.71 10*3/uL 1.09-3.23 = 731-0) MONO x10^3 (test code 0.79 10*3/uL 0.36-1.02 = 742-7) EOS x10^3 (test code = 0.78 10*3/uL 0.06-0.53 H 711-2) BASO x10^3 (test code 0.09 10*3/uL 0.01-0.09 = 704-7) Lab Interpretation Abnormal (test code = 41969-2) [id number] 02:31[facility]29 Test Item Value Reference Interpretation Comments Range TROPONIN I (test 0.002 ng/mL See_Comment [Automated code = 5423153613) message] The system which generated this result transmitted reference range : <=0.034. The reference range was not used to interpret this result as normal/abnormal . SPARKLE (test code = Reference (Normal) SPARKLE) Range (defined by the 99th percentile reference limit): <= 0.034 ng/mL Note: Cardiac troponin begins to rise 3-4 hours after the onset of ischemia. Repeat in 4-6 hours if the sample was drawn within 3-4 hours of the onset of the symptom and found normal. Diagnosis of myocardial injury is made with acute changes in cTn concentrations with at least one serial sample above the 99th percentile upper reference limit (URL), taken together with the patient's clinical presentation. Biotin has been reported to cause a negative bias, interpret results relative to patient's use of biotin. Lab Interpretation Normal (test code = 03384-1) [facility] / [id number] 02:22:08 Test Item Value Reference Range Interpretation Comments PROTIME PATIENT (test See_Comment [Auto mated message] code = 5964-2) The system [employer] generated this result transmitted ref erence range: 12.0 - 1 4.7 Seconds. The re ference range was not u sed to interpret this result as normal/abnor mal. INR (test code = 6301-6) Nor mal INR <1.1; Warfarin Therap eutic range 2.0 to 3. 0 or 2.5 to 3.5, dep ending upon the indica tions. Lab Interpretation (test Normal code = 60533-7) [facility]. METABOLIC PANEL ([id number])2022-12-04 02:20:46 Test Item Value Reference Range Interpretation Comments NA (test code = 137 mmol/L 135-145 5117803020) K (test code = 4.1 mmol/L 3.5-5.0 9099655834) CL (test code = 98 mmol/L 98-108 5260591280) CO2 TOTAL (test code = 27 mmol/L 23-31 8473669756) AGAP (test code = 2-16 6118326544) BUN (test code = 21 mg/dL 7-23 0684487535) GLUCOSE (test code = 175 mg/dL 70-110 H 8387303648) CREATININE (test code = 1.23 mg/dL 0.60-1.25 7082450942) TOTAL BILI (test code = 0.8 mg/dL 0.1-1.0 1474792365) CALCIUM (test code = 8.5 mg/dL 8.6-10.6 L 7219574907) T PROTEIN (test code = 7.2 g/dL 6.3-8.2 6337158306) ALBUMIN (test code = 4.3 g/dL 3.5-5.0 4204962304) ALK PHOS (test code = 143 U/L 34-122 H 7575758605) ALTv (test code = 47 U/L 5-50 1742-6) AST(SGOT) (test code = 40 U/L 13-40 2322392148) eGFR (test code = mL/min/1.73m2 5674357929) SPARKLE (test code = SPARKLE) Association of Glomerular Filtration Rate (GFR) and Staging of Kidney Disease* + --+ --+ ------+| GFR (mL/min/1.73 m2) ?| With Kidney Damage ?| ?Without Kidney Damage+ --------+ --------+ +| ?>90 ?| ?Stage one ?| ? Normal ?+ ---+ ---+ -------+| ?60-89 ?| ?Stage two ?| ? Decreased GFR ? + --+ --+ ------+| ?30-59 ?| ?Stage three ?| ? Stage three ? + --+ --+ ------+| ?15-29 ?| ?Stage four ? | ? Stage four ?+ ---+ ---+ -------+| ?<15 (or dialysis) ? ?| ?Stage five ? | ? Stage five ?+ ---+ ---+ -------+ *Each stage assumes the associated GFR level has been in effect for at least three months. ?Stages 1 to 5, with or without kidney disease, indicate chronic kidney disease. Notes: Determination of stages one and two (with eGFR >59mL/min/1.73 m2) requires estimation of kidney damage for at least three months as defined by structural or functional abnormalities of the kidney, manifested by either:Pathological abnormalities or Markers of kidney damage (including abnormalities in the composition of the blood or urine or abnormalities in imaging tests). Lab Interpretation Abnormal (test code = 80540-1) [facility] WITH [id number] 02:13:26 Test Item Value Reference Range Interpretation Comments WBC (test code = See_Comment H [Automated 4854-2) message] The system which generated this result transmit jennifer reference range : 4.20 - 10.70 10*3/?L. The reference range was not used to interpret this result as normal/abnormal . RBC (test code = See_Comment [Automated 574-8) message] The system which generated this result transmit jennifer reference range : 4.26 - 5.52 10*6/?L. The reference range was not used to interpret this result as normal/abnormal . HGB (test code = 14.2 g/dL 12.2-16.4 318-7) HCT (test code = 44.7 % 38.4-49.3 4544-3) MCV (test code = 97.6 fL 81.7-95.6 H 787-2) MCH (test code = 31.0 pg 26.1-32.7 785-6) MCHC (test code = 31.8 g/dL 31.2-35.0 786-4) RDW-SD (test code = 51.0 fL 38.5-51.6 39306-6) RDW-CV (test code = 14.2 % 12.1-15.4 788-0) PLT (test code = See_Comment [Automated 777-3) message] The system which generated this result transmit jennifer reference range : 150 - 328 10*3/ ?L. The reference range was not u sed to interpret th is result as normal/abnormal . MPV (test code = 10.5 fL 9.8-13.0 88719-2) NRBC/100 WBC (test See_Comment [Automat ed code = 3846391781) message] The system which generated this result transmit jennifer reference range : 0.0 - 10.0 /100 WBCs. The reference range was not used to interpret this result as normal/abnormal . NRBC x10^3 (test code See_Comment [Auto mated = 3700886494) message] The system which generated this result transmit jennifer reference range : 10*3/?L. The reference range was not used to interpret this result as normal/abnormal . GRAN MAT (NEUT) % 66.3 % (test code = 770-8) IMM GRAN % (test code 1.60 % = 1912928644) LYMPH % (test code = 18.7 % 736-9) MONO % (test code = 5.0 % 5905-5) EOS % (test code = 7.6 % 713-8) BASO % (test code = 0.8 % 706-2) GRAN MAT x10^3(ANC) 10.58 10*3/uL 1.99-6.95 H (test code = 3609098635) IMM GRAN x10^3 (test 0.26 10*3/uL 0.00-0.06 H code = 4009213596) LYMPH x10^3 (test code 2.98 10*3/uL 1.09-3.23 = 731-0) MONO x10^3 (test code 0.79 10*3/uL 0.36-1.02 = 742-7) EOS x10^3 (test code = 1.21 10*3/uL 0.06-0.53 H 711-2) BASO x10^3 (test code 0.13 10*3/uL 0.01-0.09 H = 704-7) Lab Interpretation Abnormal (test code = 83148-9) [facility] [id number] 01:17:03 Test Item Value Reference Interpretation Comments Range TROPONIN I (test 0.005 ng/mL See_Comment [Automated code = 3973652064) message] The system which generated this result transmitted reference range : <=0.034. The reference range was not used to interpret this result as normal/abnormal . SPARKLE (test code = Reference (Normal) SPARKLE) Range (defined by the 99th percentile reference limit): <= 0.034 ng/mL Note: Cardiac troponin begins to rise 3-4 hours after the onset of ischemia. Repeat in 4-6 hours if the sample was drawn within 3-4 hours of the onset of the symptom and found normal. Diagnosis of myocardial injury is made with acute changes in cTn concentrations with at least one serial sample above the 99th percentile upper reference limit (URL), taken together with the patient's clinical presentation. Biotin has been reported to cause a negative bias, interpret results relative to patient's use of biotin. Lab Interpretation Normal (test code = 71507-5) [facility] [id number] 00:29:18 Test Item Value Reference Range Interpretation Comments NT-proBNP (test code 143 pg/mL See_Comment H [Autom ated = 7828215651) message] The system which generated this result transmitted reference range : <=125. The reference range was not used to interpret this result as normal/abnormal . SPARKLE (test code = SPARKLE) Biotin has been reported to cause a negative bias, interpret results relative to patient's use of biotin. Lab Interpretation Abnormal (test code = 17876-3) [facility]OL[facility] ([id number])2022-11-27 00:21:16 Test Item Value Reference Range Interpretation Comments NA (test code = 139 mmol/L 135-145 6598839533) K (test code = 4.3 mmol/L 3.5-5.0 1914794699) CL (test code = 104 mmol/L 98-108 9692369119) CO2 TOTAL (test code = 23 mmol/L 23-31 4951599891) AGAP (test code = 2-16 4964702617) BUN (test code = 8 mg/dL 7-23 8769800120) GLUCOSE (test code = 132 mg/dL 70-110 H 1732547185) CREATININE (test code = 1.10 mg/dL 0.60-1.25 9772167923) TOTAL BILI (test code = 0.7 mg/dL 0.1-1.6 7252909161) CALCIUM (test code = 8.9 mg/dL 8.6-10.6 8929208857) T PROTEIN (test code = 7.4 g/dL 6.3-8.2 9332018810) ALBUMIN (test code = 4.3 g/dL 3.5-5.0 7305605997) ALK PHOS (test code = 127 U/L 34-122 H 7581364901) ALTv (test code = 36 U/L 5-50 1742-6) AST(SGOT) (test code = 36 U/L 13-40 3520833522) eGFR (test code = mL/min/1.73m2 7593014259) SPARKLE (test code = SPARKLE) Association of Glomerular Filtration Rate (GFR) and Staging of Kidney Disease* + --+ --+ ------+| GFR (mL/min/1.73 m2) ?| With Kidney Damage ?| ?Without Kidney Damage+ --------+ --------+ +| ?>90 ?| ?Stage one ?| ? Normal ?+ ---+ ---+ -------+| ?60-89 ?| ?Stage two ?| ? Decreased GFR ? + --+ --+ ------+| ?30-59 ?| ?Stage three ?| ? Stage three ? + --+ --+ ------+| ?15-29 ?| ?Stage four ? | ? Stage four ?+ ---+ ---+ -------+| ?<15 (or dialysis) ? ?| ?Stage five ? | ? Stage five ?+ ---+ ---+ -------+ *Each stage assumes the associated GFR level has been in effect for at least three months. ?Stages 1 to 5, with or without kidney disease, indicate chronic kidney disease. Notes: Determination of stages one and two (with eGFR >59mL/min/1.73 m2) requires estimation of kidney damage for at least three months as defined by structural or functional abnormalities of the kidney, manifested by either:Pathological abnormalities or Markers of kidney damage (including abnormalities in the composition of the blood or urine or abnormalities in imaging tests). Lab Interpretation Abnormal (test code = 93784-1) [facility] WITH [id number] 00:10:14 Test Item Value Reference Range Interpretation Comments WBC (test code = See_Comment H [Automated 6690-2) message] The sy stem which generated this result transmitted reference range : 4.20 - 10.70 10*3/?L. The reference range was not used to interpret this result as normal/abnormal . RBC (test code = See_Comment L [Automated 789-8) message] The sy stem which generated this result transmitted reference range : 4.26 - 5.52 10*6/?L. The reference range was not used to interpret this result as normal/abnormal . HGB (test code = 12.5 g/dL 12.2-16.4 718-7) HCT (test code = 39.9 % 38.4-49.3 4544-3) MCV (test code = 98.5 fL 81.7-95.6 H 787-2) MCH (test code = 30.9 pg 26.1-32.7 785-6) MCHC (test code = 31.3 g/dL 31.2-35.0 786-4) RDW-SD (test code = 52.0 fL 38.5-51.6 H 67635-5) RDW-CV (test code = 14.4 % 12.1-15.4 788-0) PLT (test code = See_Comment H [Automated 777-3) message] The sy stem which generated this result transmitted reference range : 150 - 328 10*3/ ?L. The reference r emanuel was not used to interpret this result as normal/abnormal . MPV (test code = 10.0 fL 9.8-13.0 85021-9) NRBC/100 WBC (test See_Comment [Automat ed code = 2592972332) message] The system which generated this result transmitted reference range : 0.0 - 10.0 /100 WBCs. The refer ence range was not u sed to interpret th is result as normal/abnormal . NRBC x10^3 (test code See_Comment [Auto mated = 7946210558) message] The s ystem which generated this result transmitted reference range : 10*3/?L. The reference range was not used to interpret this result as normal/abnormal . GRAN MAT (NEUT) % 67.2 % (test code = 770-8) IMM GRAN % (test code 0.60 % = 3339837593) LYMPH % (test code = 16.8 % 736-9) MONO % (test code = 5.8 % 5905-5) EOS % (test code = 8.7 % 713-8) BASO % (test code = 0.9 % 706-2) GRAN MAT x10^3(ANC) 7.83 10*3/uL 1.99-6.95 H (test code = 1561726481) IMM GRAN x10^3 (test 0.07 10*3/uL 0.00-0.06 H code = 3083330498) LYMPH x10^3 (test code 1.95 10*3/uL 1.09-3.23 = 731-0) MONO x10^3 (test code 0.67 10*3/uL 0.36-1.02 = 742-7) EOS x10^3 (test code = 1.01 10*3/uL 0.06-0.53 H 711-2) BASO x10^3 (test code 0.11 10*3/uL 0.01-0.09 H = 704-7) Lab Interpretation Abnormal (test code = 17449-1) [facility] SARS-COV-2 ANTIGEN (BINAX NOW)2022-11-07 22:42:00 Test Item Value Reference Range Interpretation Comments POCT SARS-COV-2 ANTIGEN (test Not Detected Not Detected code = 05077-2) On board controls acceptable Yes with C Line (test code = 3574) [facility] SARS-COV-2 ANTIGEN (BINAX NOW)2022-11-07 22:42:00 Test Item Value Reference Range Interpretation Comments POCT SARS-COV-2 ANTIGEN (test Not Detected Not Detected code = 53333-6) On board controls acceptable Yes with C Line (test code = 3574) [facility] MOLECULAR [id number] 22:40:24 Test Item Value Reference Range Interpretation Comments POCT Molecular FluA (test code = Negative Negative 01574-3) POCT Molecular FluB (test code = Negative Negative 19797-7) Lab Interpretation (test code = Normal 65484-2) [facility] MOLECULAR [id number] 22:40:24 Test Item Value Reference Range Interpretation Comments POCT Molecular FluA (test code = Negative Negative 55606-9) POCT Molecular FluB (test code = Negative Negative 90766-9) Lab Interpretation (test code = Normal 29102-1) [facility]. METABOLIC PANEL (19756)2022-11-07 07:55:56 Test Item Value Reference Range Interpretation Comments NA (test code = 138 mmol/L 135-145 0452194341) K (test code = 5.0 mmol/L 3.5-5.0 6499151211) CL (test code = 100 mmol/L 98-108 0281625180) CO2 TOTAL (test code = 23 mmol/L 23-31 7663943917) AGAP (test code = 2-16 0729157690) BUN (test code = 17 mg/dL 7-23 9352048785) GLUCOSE (test code = 166 mg/dL 70-110 H 9377394052) CREATININE (test code = 1.33 mg/dL 0.60-1.25 H 6007318114) TOTAL BILI (test code = 1.3 mg/dL 0.1-1.1 H 7951762422) CALCIUM (test code = 9.2 mg/dL 8.6-10.6 5145350617) T PROTEIN (test code = 7.3 g/dL 6.3-8.2 2558732800) ALBUMIN (test code = 4.2 g/dL 3.5-5.0 2375710261) ALK PHOS (test code = 144 U/L 34-122 H 5849796672) ALTv (test code = 35 U/L 5-50 1742-6) AST(SGOT) (test code = 51 U/L 13-40 H 8889270295) eGFR (test code = mL/min/1.73m2 5636904830) SPARKLE (test code = SPARKLE) Association of Glomerular Filtration Rate (GFR) and Staging of Kidney Disease* + --+ --+ ------+| GFR (mL/min/1.73 m2) ?| With Kidney Damage ?| ?Without Kidney Damage+ --------+ --------+ +| ?>90 ?| ?Stage one ?| ? Normal ?+ ---+ ---+ -------+| ?60-89 ?| ?Stage two ?| ? Decreased GFR ? + --+ --+ ------+| ?30-59 ?| ?Stage three ?| ? Stage three ? + --+ --+ ------+| ?15-29 ?| ?Stage four ? | ? Stage four ?+ ---+ ---+ -------+| ?<15 (or dialysis) ? ?| ?Stage five ? | ? Stage five ?+ ---+ ---+ -------+ *Each stage assumes the associated GFR level has been in effect for at least three months. ?Stages 1 to 5, with or without kidney disease, indicate chronic kidney disease. Notes: Determination of stages one and two (with eGFR >59mL/min/1.73 m2) requires estimation of kidney damage for at least three months as defined by structural or functional abnormalities of the kidney, manifested by either:Pathological abnormalities or Markers of kidney damage (including abnormalities in the composition of the blood or urine or abnormalities in imaging tests). Lab Interpretation Abnormal (test code = 19697-6) [facility] 07[facility]52:49 Test Item Value Reference Range Interpretation Comments LIPASE (test code = 7128932584) 120 U/L 0-220 Lab Interpretation (test code = Normal 08526-0) [facility] [id number] 07:38:33 Test Item Value Reference Range Interpretation Comments WBC (test code = See_Comment H [Automated 1990-2) message] The system which generated this result transmit jennifer reference range : 4.20 - 10.70 10*3/?L. The reference range was not used to interpret this result as normal/abnormal . RBC (test code = See_Comment L [Automated 789-8) message] The system which generated this result transmit jennifer reference range : 4.26 - 5.52 10*6/?L. The reference range was not used to interpret this result as normal/abnormal . HGB (test code = 13.0 g/dL 12.2-16.4 718-7) HCT (test code = 40.0 % 38.4-49.3 4544-3) MCV (test code = 94.6 fL 81.7-95.6 787-2) MCH (test code = 30.7 pg 26.1-32.7 785-6) MCHC (test code = 32.5 g/dL 31.2-35.0 786-4) RDW-SD (test code = 47.2 fL 38.5-51.6 50173-7) RDW-CV (test code = 13.7 % 12.1-15.4 788-0) PLT (test code = See_Comment H [Automated 777-3) message] The system which generated this result transmit jennifer reference range : 150 - 328 10*3/ ?L. The reference range was not u sed to interpret th is result as normal/abnormal . MPV (test code = 10.0 fL 9.8-13.0 83050-4) NRBC/100 WBC (test See_Comment [Automat ed code = 9529083599) message] The system which generated this result transmit jennifer reference range : 0.0 - 10.0 /100 WBCs. The reference range was not used to interpret this result as normal/abnormal . NRBC x10^3 (test code See_Comment [Auto mated = 7642806957) message] The system which generated this result transmit jennifer reference range : 10*3/?L. The reference range was not used to interpret this result as normal/abnormal . SEG % (test code = 77 % 33-76 H 37515-3) LYMPH % (test code = 4 % 14-54 L 42695-4) MONO % (test code = 16 % 0-4 H 70449-5) EOS % (test code = 3 % 0-3 54231-2) ANC (test code = 14.51 10*3/uL 1.99-6.95 H 753-4) Lab Interpretation Abnormal (test code = 90501-0) [facility] / [id number] 07:15:09 Test Item Value Reference Range Interpretation Comments PROTIME PATIENT (test See_Comment [Auto mated message] code = 5964-2) The system [employer] generated this result transmitted ref erence range: 12.0 - 1 4.7 Seconds. The re ference range was not u sed to interpret this result as normal/abnor mal. INR (test code = 6301-6) Nor mal INR <1.1; Warfarin Therap eutic range 2.0 to 3. 0 or 2.5 to 3.5, dep ending upon the indica tions. Lab Interpretation (test Normal code = 30787-6) [facility] GLUCOSE (AUTOMATED)2022-09-23 18:55:14 Test Item Value Reference Range Interpretation Comments POCT GLU (test code = 1382077193) 238 mg/dL 70-110 H Lab Interpretation (test code = Abnormal 45951-5) [facility] GLUCOSE (AUTOMATED)2022-09-23 17:21:25 Test Item Value Reference Range Interpretation Comments POCT GLU (test code = 6898423310) 227 mg/dL 70-110 H Lab Interpretation (test code = Abnormal 11079-4) [facility] GLUCOSE (AUTOMATED)2022-09-23 12:59:55 Test Item Value Reference Range Interpretation Comments POCT GLU (test code = 0816143408) 198 mg/dL 70-110 H Lab Interpretation (test code = Abnormal 16070-6) [facility]A1C)2022-09-23 11:05:10 Test Item Value Reference Range Interpretation Comments HGB A1C (test code = 12.4 % 4.0-5.7 H 4548-4) SPARKLE (test code = SPARKLE) Reference RangesNormal: <5.7%Prediabetes: 5.7 - 6.4%Diabetes: > 6.5% Lab Interpretation (test Abnormal code = 71888-1) [facility] GLUCOSE (AUTOMATED)2022-09-23 09:58:45 Test Item Value Reference Range Interpretation Comments POCT GLU (test code = 3936364221) 166 mg/dL 70-110 H Lab Interpretation (test code = Abnormal 76294-6) [facility] GLUCOSE (AUTOMATED)2022-09-23 05:30:10 Test Item Value Reference Range Interpretation Comments POCT GLU (test code = 7459781884) 183 mg/dL 70-110 H Lab Interpretation (test code = Abnormal 02993-8) [facility] GLUCOSE (AUTOMATED)2022-09-23 02:10:46 Test Item Value Reference Range Interpretation Comments POCT GLU (test code = 4225668322) 307 mg/dL 70-110 H Lab Interpretation (test code = Abnormal 42521-1) [facility] GLUCOSE (AUTOMATED)2022-09-22 23:55:16 Test Item Value Reference Range Interpretation Comments POCT GLU (test code = 8909556428) 343 mg/dL 70-110 H Lab Interpretation (test code = Abnormal 09426-0) [facility] GLUCOSE (AUTOMATED)2022-09-22 22:04:22 Test Item Value Reference Range Interpretation Comments POCT GLU (test code = 9027061496) 432 mg/dL 70-110 H Lab Interpretation (test code = Abnormal 68909-1) [facility] GLUCOSE (AUTOMATED)2022-09-22 21:03:46 Test Item Value Reference Range Interpretation Comments POCT GLU (test code = 8460644585) 530 mg/dL 70-110 HH Lab Interpretation (test code = Abnormal 39892-8) [facility] GLUCOSE (AUTOMATED)2022-09-22 20:29:34 Test Item Value Reference Range Interpretation Comments POCT GLU (test code = 9924196225) 551 mg/dL 70-110 HH Lab Interpretation (test code = Abnormal 25559-7) [facility] METABOLIC PANEL (NA, K, CL, CO2, GLUCOSE, BUN, CREATININE, CA)2022-09-22 19:52:26 Test Item Value Reference Range Interpretation Comments NA (test code = 127 mmol/L 135-145 L 2203982661) K (test code = 4.8 mmol/L 3.5-5.0 Slight 0157883238) hemolysis CL (test code = 87 mmol/L 98-108 L 8562335271) CO2 TOTAL (test code 28 mmol/L 23-31 = 8122471579) AGAP (test code = 2-16 8670101974) BUN (test code = 27 mg/dL 7-23 H Slight 9796015304) hemolysis GLUCOSE (test code = 643 mg/dL 70-110 HH 3533110256) CREATININE (test code 1.26 mg/dL 0.60-1.25 H = 1444178650) CALCIUM (test code = 9.1 mg/dL 8.6-10.6 5896907942) eGFR (test code = mL/min/1.73m2 7202506621) SPARKLE (test code = SPARKLE) Association of Glomerular Filtration Rate (GFR) and Staging of Kidney Disease* + -----+ --------+ +| GFR (mL/min/1.73 m2) ?| With Kidney Damage ?| ?Without Kidney Damage+ +------- +---- --+| ?>90 ?| ?Stage one ?| ? Normal ?+ ------+ ---------+--------- +| ?60-89 ?| ?Stage two ?| ? Decreased GFR ? + -----+ --------+ +| ?30-59 ?| ?Stage three ?| ? Stage three ? + -----+ --------+ +| ?15-29 ?| ?Stage four ? | ? Stage four ?+ ------+ ---------+--------- +| ?<15 (or dialysis) ? ?| ?Stage five ? | ? Stage five ?+ ------+ ---------+--------- + *Each stage assumes the associated GFR level has been in effect for at least three months. ?Stages 1 to 5, with or without kidney disease, indicate chronic kidney disease. Notes: Determination of stages one and two (with eGFR >59mL/min/1.73 m2) requires estimation of kidney damage for at least three months as defined by structural or functional abnormalities of the kidney, manifested by either:Pathological abnormalities or Markers of kidney damage (including abnormalities in the composition of the blood or urine or abnormalities in imaging tests). Lab Interpretation Abnormal (test code = 70396-6) [facility] WITH [id number] 19:26:13 Test Item Value Reference Range Interpretation Comments WBC (test code = See_Comment H [Automated 6690-2) message] The system which generated this result transmit jennifer reference range : 4.20 - 10.70 10*3/?L. The reference range was not used to interpret this result as normal/abnormal . RBC (test code = See_Comment [Automated 789-8) message] The system which generated this result transmit jennifer reference range : 4.26 - 5.52 10*6/?L. The reference range was not used to interpret this result as normal/abnormal . HGB (test code = 14.8 g/dL 12.2-16.4 718-7) HCT (test code = 44.6 % 38.4-49.3 4544-3) MCV (test code = 93.5 fL 81.7-95.6 787-2) MCH (test code = 31.0 pg 26.1-32.7 785-6) MCHC (test code = 33.2 g/dL 31.2-35.0 786-4) RDW-SD (test code = 48.3 fL 38.5-51.6 38950-4) RDW-CV (test code = 13.9 % 12.1-15.4 788-0) PLT (test code = See_Comment H [Automated 777-3) message] The system which generated this result transmit jennifer reference range : 150 - 328 10*3/ ?L. The reference range was not u sed to interpret th is result as normal/abnormal . MPV (test code = 11.1 fL 9.8-13.0 35634-3) NRBC/100 WBC (test See_Comment [Automat ed code = 8838242958) message] The system which generated this result transmit jennifer reference range : 0.0 - 10.0 /100 WBCs. The reference range was not used to interpret this result as normal/abnormal . NRBC x10^3 (test code See_Comment [Auto mated = 2802502566) message] The system which generated this result transmit jennifer reference range : 10*3/?L. The reference range was not used to interpret this result as normal/abnormal . GRAN MAT (NEUT) % 78.3 % (test code = 770-8) IMM GRAN % (test code 1.00 % = 7055098870) LYMPH % (test code = 12.5 % 736-9) MONO % (test code = 5.5 % 5905-5) EOS % (test code = 2.3 % 713-8) BASO % (test code = 0.4 % 706-2) GRAN MAT x10^3(ANC) 11.92 10*3/uL 1.99-6.95 H (test code = 4872607350) IMM GRAN x10^3 (test 0.15 10*3/uL 0.00-0.06 H code = 4624510823) LYMPH x10^3 (test code 1.91 10*3/uL 1.09-3.23 = 731-0) MONO x10^3 (test code 0.83 10*3/uL 0.36-1.02 = 742-7) EOS x10^3 (test code = 0.35 10*3/uL 0.06-0.53 711-2) BASO x10^3 (test code 0.06 10*3/uL 0.01-0.09 = 704-7) Lab Interpretation Abnormal (test code = 26717-2) [facility] GLUCOSE (AUTOMATED)2022-09-22 18:44:47 Test Item Value Reference Range Interpretation Comments POCT GLU (test code = 3762094335) 591 mg/dL 70-110 HH Lab Interpretation (test code = Abnormal 12906-1) [facility] GLUCOSE (AUTOMATED)2022-09-22 13:26:28 Test Item Value Reference Range Interpretation Comments POCT GLU (test code = 2558962724) 581 mg/dL 70-110 HH Lab Interpretation (test code = Abnormal 04447-6) [facility] GLUCOSE (AUTOMATED)2022-09-22 13:26:28 Test Item Value Reference Range Interpretation Comments POCT GLU (test code = 7043490928) 581 mg/dL 70-110 HH Lab Interpretation (test code = Abnormal 23460-0) [facility] 12:32:47 Test Item Value Reference Range Interpretation Comments FVC Actual (test code = 3994) 3.81 L FEV1 Actual (test code = 3993) 2.79 L FEV1/FVC Actual (test code = 3995) 73 [id number] 03:41[facility]31 Test Item Value Reference Interpretation Comments Range TROPONIN I (test 0.004 ng/mL See_Comment [Automated code = 7209669861) message] The system which generated this result transmitted reference range : <=0.034. The reference range was not used to interpret this result as normal/abnormal . SPARKLE (test code = Reference (Normal) SPARKLE) Range (defined by the 99th percentile reference limit): <= 0.034 ng/mL Note: Cardiac troponin begins to rise 3-4 hours after the onset of ischemia. Repeat in 4-6 hours if the sample was drawn within 3-4 hours of the onset of the symptom and found normal. Diagnosis of myocardial injury is made with acute changes in cTn concentrations with at least one serial sample above the 99th percentile upper reference limit (URL), taken together with the patient's clinical presentation. Biotin has been reported to cause a negative bias, interpret results relative to patient's use of biotin. Lab Interpretation Normal (test code = 55293-0) [id number] 03:38:09 Test Item Value Reference Range Interpretation Comments NT-proBNP (test code 138 pg/mL See_Comment H [Autom ated = 9200194219) message] The system which generated this result transmitted reference range : <=125. The reference range was not used to interpret this result as normal/abnormal . SPARKLE (test code = SPARKLE) Biotin has been reported to cause a negative bias, interpret results relative to patient's use of biotin. Lab Interpretation Abnormal (test code = 18016-3) [facility] (80071[facility]2022-09-02 03:30:50 Test Item Value Reference Range Interpretation Comments NA (test code = 137 mmol/L 135-145 7526948634) K (test code = 4.0 mmol/L 3.5-5 7508847827) CL (test code = 94 mmol/L 98-108 L 3671756461) CO2 TOTAL (test code = 28 mmol/L 23-31 6894255786) AGAP (test code = 2-16 2999298166) BUN (test code = 43 mg/dL 7-23 H 4372848538) GLUCOSE (test code = 302 mg/dL 70-110 H 9722846025) CREATININE (test code = 1.43 mg/dL 0.6-1.25 H 5637195388) TOTAL BILI (test code = 0.7 mg/dL 0.1-1.4 5233995436) CALCIUM (test code = 9.6 mg/dL 8.6-10.6 2220490711) T PROTEIN (test code = 7.7 g/dL 6.3-8.2 5538034378) ALBUMIN (test code = 4.5 g/dL 3.5-5 1350706906) ALK PHOS (test code = 176 U/L 34-122 H 9774862367) ALTv (test code = 81 U/L 5-50 H 1742-6) AST(SGOT) (test code = 48 U/L 13-40 H 4530176039) eGFR (test code = mL/min/1.73m2 8724319683) SPARKLE (test code = SPARKLE) Association of Glomerular Filtration Rate (GFR) and Staging of Kidney Disease* + --+ --+ ------+| GFR (mL/min/1.73 m2) ?| With Kidney Damage ?| ?Without Kidney Damage+ --------+ --------+ +| ?>90 ?| ?Stage one ?| ? Normal ?+ ---+ ---+ -------+| ?60-89 ?| ?Stage two ?| ? Decreased GFR ? + --+ --+ ------+| ?30-59 ?| ?Stage three ?| ? Stage three ? + --+ --+ ------+| ?15-29 ?| ?Stage four ? | ? Stage four ?+ ---+ ---+ -------+| ?<15 (or dialysis) ? ?| ?Stage five ? | ? Stage five ?+ ---+ ---+ -------+ *Each stage assumes the associated GFR level has been in effect for at least three months. ?Stages 1 to 5, with or without kidney disease, indicate chronic kidney disease. Notes: Determination of stages one and two (with eGFR >59mL/min/1.73 m2) requires estimation of kidney damage for at least three months as defined by structural or functional abnormalities of the kidney, manifested by either:Pathological abnormalities or Markers of kidney damage (including abnormalities in the composition of the blood or urine or abnormalities in imaging tests). Lab Interpretation Abnormal (test code = 20108-1) [facility]30:50 Test Item Value Reference Range Interpretation Comments MAGNESIUM (test code = 1548390403) 2.5 mg/dL 1.7-2.4 H Lab Interpretation (test code = Abnormal 12250-0) [facility] WITH [id number] 03:16:07 Test Item Value Reference Range Interpretation Comments WBC (test code = See_Comment H [Automated 90-2) message] The sy stem which generated this result transmitted reference range : 4.20 - 10.70 10*3/?L. The reference range was not used to interpret this result as normal/abnormal . RBC (test code = See_Comment [Automated 789-8) message] The sy stem which generated this result transmitted reference range : 4.26 - 5.52 10*6/?L. The reference range was not used to interpret this result as normal/abnormal . HGB (test code = 13.8 g/dL 12.2-16.4 718-7) HCT (test code = 41.2 % 38.4-49.3 4544-3) MCV (test code = 93.8 fL 81.7-95.6 787-2) MCH (test code = 31.4 pg 26.1-32.7 785-6) MCHC (test code = 33.5 g/dL 31.2-35 786-4) RDW-SD (test code = 49.9 fL 38.5-51.6 76332-8) RDW-CV (test code = 14.6 % 12.1-15.4 788-0) PLT (test code = See_Comment [Automated 777-3) message] The sy stem which generated this result transmitted reference range : 150 - 328 10*3/ ?L. The reference r emanuel was not used to interpret this result as normal/abnormal . MPV (test code = 10.6 fL 9.8-13 75168-6) NRBC/100 WBC (test See_Comment [Automat ed code = 9163682809) message] The system which generated this result transmitted reference range : 0.0 - 10.0 /100 WBCs. The refer ence range was not u sed to interpret th is result as normal/abnormal . NRBC x10^3 (test code See_Comment [Auto mated = 4627123795) message] The s ystem which generated this result transmitted reference range : 10*3/?L. The reference range was not used to interpret this result as normal/abnormal . GRAN MAT (NEUT) % 70.7 % (test code = 770-8) IMM GRAN % (test code 0.70 % = 7986783894) LYMPH % (test code = 15.5 % 736-9) MONO % (test code = 5.7 % 5905-5) EOS % (test code = 6.7 % 713-8) BASO % (test code = 0.7 % 706-2) GRAN MAT x10^3(ANC) 8.98 10*3/uL 1.99-6.95 H (test code = 4124510683) IMM GRAN x10^3 (test 0.09 10*3/uL 0-0.06 H code = 4927668606) LYMPH x10^3 (test code 1.97 10*3/uL 1.09-3.23 = 731-0) MONO x10^3 (test code 0.73 10*3/uL 0.36-1.02 = 742-7) EOS x10^3 (test code = 0.85 10*3/uL 0.06-0.53 H 711-2) BASO x10^3 (test code 0.09 10*3/uL 0.01-0.09 = 704-7) Lab Interpretation Abnormal (test code = 06815-3) [facility] 00:48:59 Test Item Value Reference Range Interpretation Comments Height (test code = in 1353546173) Weight (test code = lbs 7569606697) Systolic BP (test mmHg code = 4152996598) Diastolic BP (test mmHg code = 1351976714) Heart Rate (test code bpm = 7973865768) BSA (test code = 2.25 m2 1133274685) Radiology Study observation (narrative) (test code = 37127-6) SPARKLE (test code = SPARKLE) ?Left?Ventricle: Left ventricle size is normal. Normal wall motion. Normal systolic function. ?Right?Ventricle: Right ventricle size is normal. Normal systolic function. ?Left?Atrium: Left atrium is dilated. Lipomatous hypertrophy present. Device closure in the appendage with a Watchman. VERONICA closure device visualized, well seated. No thrombus, no para-device leak. ?Aorta: Grade 3 atherosclerosis of the ascending aorta, aortic arch and descending aorta. ?Pericardium: No pericardial effusion. Left VentricleLeft ventricle size is normal. Normal wall motion. Normal systolic function.Right VentricleRight ventricle size is normal. Normal systolic function.Left AtriumLeft atrium is dilated. Lipomatous hypertrophy present. Device closure in the appendage with a Watchman. VERONICA closure device visualized, well seated. No thrombus, no para-device leak.Right AtriumRight atrium size is normal.IVC/SVCIVC normal in size. SVC size is normal.Mitral ValveMitral valve structure is normal. No transvalvular regurgitation.Tricuspid ValveTricuspid valve structure is normal. Trace transvalvular regurgitation. No stenosis.Aortic ValveTricuspid. No transvalvular regurgitation. No evidence of aortic stenosis.Pulmonic ValveValve structure is normal. Trace transvalvular regurgitation. No stenosis.Ascending AortaGrade 3 atherosclerosis of the ascending aorta, aortic arch and descending aorta.PericardiumThe pericardium is normal. No pericardial effusion.Study DetailsA complete transesophageal echocardiogram was performed using complete 2D, color flow Doppler, spectral Doppler and complete 3D. During the study the esophageal, transgastric and descending thoracic views were captured. The probe was inserted by the community organization aide. There was no probe insertion difficulty.There were 1 attempts to insert the probe. Probe in 0901. Probe out 0920. Sedation and monitoring provided by anesthesia, see Epic documentation. 4% Lidocaine was used for local oropharyngeal anesthesia. There were no complications during the procedure. Based on abnormal findings of 2D echocardiogram, 3D was performed on an acquisition scanner for further assessment of the left atrium. [facility] 02:20:02 Test Item Value Reference Range Interpretation Comments POCT GLU (test code = 9337566544) 342 mg/dL 70-110 H Lab Interpretation (test code = Abnormal 92716-8) [facility]. METABOLIC PANEL (40086)2022-08-25 01:41:58 Test Item Value Reference Range Interpretation Comments NA (test code = 131 mmol/L 135-145 L 6657783864) K (test code = 4.9 mmol/L 3.5-5 3868934651) CL (test code = 92 mmol/L 98-108 L 0077873308) CO2 TOTAL (test code = 26 mmol/L 23-31 1547593516) AGAP (test code = 2-16 4856955096) BUN (test code = 37 mg/dL 7-23 H 1697828271) GLUCOSE (test code = 565 mg/dL 70-110 HH 2786145379) CREATININE (test code = 1.48 mg/dL 0.6-1.25 H 2864919150) TOTAL BILI (test code = 0.5 mg/dL 0.1-1.1 4711855067) CALCIUM (test code = 8.6 mg/dL 8.6-10.6 8236571862) T PROTEIN (test code = 6.6 g/dL 6.3-8.2 6079114898) ALBUMIN (test code = 4.1 g/dL 3.5-5 3938772207) ALK PHOS (test code = 137 U/L 34-122 H 8523283118) ALTv (test code = 93 U/L 5-50 H 1742-6) AST(SGOT) (test code = 47 U/L 13-40 H 4170135418) eGFR (test code = mL/min/1.73m2 0142958409) SPARKLE (test code = SPARKLE) Association of Glomerular Filtration Rate (GFR) and Staging of Kidney Disease* + --+ --+ ------+| GFR (mL/min/1.73 m2) ?| With Kidney Damage ?| ?Without Kidney Damage+ --------+ --------+ +| ?>90 ?| ?Stage one ?| ? Normal ?+ ---+ ---+ -------+| ?60-89 ?| ?Stage two ?| ? Decreased GFR ? + --+ --+ ------+| ?30-59 ?| ?Stage three ?| ? Stage three ? + --+ --+ ------+| ?15-29 ?| ?Stage four ? | ? Stage four ?+ ---+ ---+ -------+| ?<15 (or dialysis) ? ?| ?Stage five ? | ? Stage five ?+ ---+ ---+ -------+ *Each stage assumes the associated GFR level has been in effect for at least three months. ?Stages 1 to 5, with or without kidney disease, indicate chronic kidney disease. Notes: Determination of stages one and two (with eGFR >59mL/min/1.73 m2) requires estimation of kidney damage for at least three months as defined by structural or functional abnormalities of the kidney, manifested by either:Pathological abnormalities or Markers of kidney damage (including abnormalities in the composition of the blood or urine or abnormalities in imaging tests). Lab Interpretation Abnormal (test code = 91876-3) [facility] 01:30:09 Test Item Value Reference Range Interpretation Comments POCT GLU (test code = 9189653643) 450 mg/dL 70-110 HH Lab Interpretation (test code = Abnormal 73919-7) [facility] WITH [id number] 01:20:46 Test Item Value Reference Range Interpretation Comments WBC (test code = See_Comment H [Automated 6690-2) message] The system which generated this result transmit jennifer reference range : 4.20 - 10.70 10*3/?L. The reference range was not used to interpret this result as normal/abnormal . RBC (test code = See_Comment L [Automated 789-8) message] The system which generated this result transmit jennifer reference range : 4.26 - 5.52 10*6/?L. The reference range was not used to interpret this result as normal/abnormal . HGB (test code = 12.3 g/dL 12.2-16.4 718-7) HCT (test code = 38.3 % 38.4-49.3 L 4544-3) MCV (test code = 97.2 fL 81.7-95.6 H 787-2) MCH (test code = 31.2 pg 26.1-32.7 785-6) MCHC (test code = 32.1 g/dL 31.2-35 786-4) RDW-SD (test code = 52.1 fL 38.5-51.6 H 11427-6) RDW-CV (test code = 14.6 % 12.1-15.4 788-0) PLT (test code = See_Comment [Automated 777-3) message] The system which generated this result transmit jennifer reference range : 150 - 328 10*3/ ?L. The reference range was not u sed to interpret th is result as normal/abnormal . MPV (test code = 10.9 fL 9.8-13 31770-0) NRBC/100 WBC (test See_Comment [Automat ed code = 3447440729) message] The system which generated this result transmit jennifer reference range : 0.0 - 10.0 /100 WBCs. The reference range was not used to interpret this result as normal/abnormal . NRBC x10^3 (test code See_Comment [Auto mated = 0038096573) message] The system which generated this result transmit jennifer reference range : 10*3/?L. The reference range was not used to interpret this result as normal/abnormal . GRAN MAT (NEUT) % 85.4 % (test code = 770-8) IMM GRAN % (test code 1.30 % = 1620452298) LYMPH % (test code = 9.3 % 736-9) MONO % (test code = 3.6 % 5905-5) EOS % (test code = 0.2 % 713-8) BASO % (test code = 0.2 % 706-2) GRAN MAT x10^3(ANC) 10.68 10*3/uL 1.99-6.95 H (test code = 3197606773) IMM GRAN x10^3 (test 0.16 10*3/uL 0-0.06 H code = 2432513082) LYMPH x10^3 (test code 1.16 10*3/uL 1.09-3.23 = 731-0) MONO x10^3 (test code 0.45 10*3/uL 0.36-1.02 = 742-7) EOS x10^3 (test code = 0.06-0.53 L 711-2) BASO x10^3 (test code 0.03 10*3/uL 0.01-0.09 = 704-7) Lab Interpretation Abnormal (test code = 22556-6) [facility] GLUCOSE (AUTOMATED)2022-08-25 00:00:30 Test Item Value Reference Range Interpretation Comments POCT GLU (test code = 7314984861) 588 mg/dL 70-110 HH Lab Interpretation (test code = Abnormal 82476-2) [facility] GLUCOSE (AUTOMATED)2022-08-24 23:32:50 Test Item Value Reference Range Interpretation Comments POCT GLU (test code = 9583779435) 534 mg/dL 70-110 HH Lab Interpretation (test code = Abnormal 93167-1) [facility] GLUCOSE (AUTOMATED)2022-08-16 16:53:08 Test Item Value Reference Range Interpretation Comments POCT GLU (test code = 5358753965) 155 mg/dL 70-110 H Lab Interpretation (test code = Abnormal 19548-6) [facility] GLUCOSE (AUTOMATED)2022-08-16 13:00:21 Test Item Value Reference Range Interpretation Comments POCT GLU (test code = 2230932264) 137 mg/dL 70-110 H Lab Interpretation (test code = Abnormal 25060-5) [facility] GLUCOSE (AUTOMATED)2022-08-16 08:53:15 Test Item Value Reference Range Interpretation Comments POCT GLU (test code = 5447775314) 244 mg/dL 70-110 H Lab Interpretation (test code = Abnormal 18628-8) [facility] GLUCOSE (AUTOMATED)2022-08-16 05:07:44 Test Item Value Reference Range Interpretation Comments POCT GLU (test code = 8809943646) 323 mg/dL 70-110 H Lab Interpretation (test code = Abnormal 54629-9) [facility] GLUCOSE (AUTOMATED)2022-08-16 01:42:31 Test Item Value Reference Range Interpretation Comments POCT GLU (test code = 1211281857) 359 mg/dL 70-110 H Lab Interpretation (test code = Abnormal 48514-4) [facility] GLUCOSE (AUTOMATED)2022-08-15 21:29:52 Test Item Value Reference Range Interpretation Comments POCT GLU (test code = 7903991644) 320 mg/dL 70-110 H Lab Interpretation (test code = Abnormal 75001-2) [facility]15 20:45:58 Test Item Value Reference Range Interpretation Comments Height (test code = in 9319034087) Weight (test code = lbs 0100736620) Systolic BP (test code = mmHg 5997945868) Diastolic BP (test code mmHg = 1437445345) Heart Rate (test code = bpm 5259305381) BSA (test code = 2.25 m2 1152327403) LVIDD (test code = 4.30 cm 7825911143) Left Ventricular End 81.0 mL Diastolic Volume by Teichholz Method (test code = 5197384) IVS (test code = 1.17 cm 6788967574) Interventricular Septum 1.17 cm Diastolic Thickness by 2D (test code = 4804095) LVPWD (test code = 1.01 cm 2213622007) PW (test code = 1.01 cm 0.6-1.6 6472175295) EF(Teich) (test code = 67.90 % 1789247909) LVIDS (test code = 2.70 cm 6227885161) Left Ventricular End 26.0 mL Systolic Volume by Teichholz Method (test code = 3563801) FS (test code = 38 % 7385548287) EF - 2D (test code = 67.90 % 53467004) LVOT diameter (test code 2.17 cm = 1908342950) LVOT area (test code = 3.70 cm2 1170977249) ACS (test code = 2.18 cm 7795622626) Ao root diam (test code 3.60 cm = 3642855210) Aortic root (test code = 3.6 cm 8511589089) Ao root annulus (test 3.6 cm code = 7091209309) LA size (test code = 3.8 cm 2699863178) E wave decelartion time 0.28 s (test code = 2455163829) MV Peak E Georgie (test code 77.2 cm/s = 8774093393) MV Peak A Georgie (test code 92.7 cm/s = 7038658745) E/A ratio (test code = ratio 4256216579) MV Prop V (test code = 106.10 cm/s 6315484590) Tapse (test code = 2.40 cm 4465775698) LVOT stroke volume (test 110.80 cm3 code = 9620431197) LVOT peak georgie (test code 135.3 cm/s = 9361969593) LVOT mn grad (test code mmHg = 9994556413) AV LVOT peak gradient mmHg (test code = 9360961549) LVOT peak VTI (test code 30.0 cm = 2451372131) LV V1 mean (test code = 84.00 cm/s 4798311756) Aortic valve mean 109.1 cm/s velocity (test code = 1230018152) Ao peak georgie (test code = 155.5 cm/s 3365567213) Ao VTI (test code = 33.7 cm 5412533674) AV area by cont VTI 3.3 cm2 (test code = 9337209781) AV area peak georgie (test 3.2 cm2 code = 3077714054) Ao max PG (test code = 9.70 mm[Hg] 0162788249) AV peak gradient (test mmHg code = 7950504078) AV valve area (test code 3.30 cm2 = 2323310781) AV mean gradient (test mmHg code = 7440947915) Radiology Study observation (narrative) (test code = 21956-4) SPARKLE (test code = SPARKLE) ?Left?Ventricle: Left ventricle size is normal. Normal wall thickness. Septal motion is normal. Normal wall motion. Normal systolic function with a visually estimated EF of 60 - 65%. There is impaired relaxation. ?IVC/SVC: IVC was not well visualized. ?Pericardium: No pericardial effusion. Left VentricleLeft ventricle size is normal. Normal wall thickness. Septal motion is normal. Normal wall motion. Normal systolic function with a visually estimated EF of 60 - 65%. There is impaired relaxation.Right VentricleRight ventricle size is normal. Normal systolic function.Left AtriumLeft atrium size is normal.Right AtriumRight atrium size is normal.IVC/SVCIVC was not well visualized.Mitral ValveMitral valve structure is normal. Trace transvalvular regurgitation.Tricusp id ValveTricuspid valve structure is normal. Insufficient tricuspid regurgitation jet to estimate RVSP.Trace transvalvular regurgitation.Aortic ValveTricuspid.Pulmon ic ValveNot well visualized.Ascending AortaNormal sized annulus and sinus of Valsalva.PericardiumT he pericardium is normal. No pericardial effusion.Study DetailsStudy quality was adequate. A complete echocardiogram was performed using 2D, color flow Doppler and spectral Doppler. The apical and parasternal views were obtained. [facility] GLUCOSE (AUTOMATED)2022-08-15 16:57:15 Test Item Value Reference Range Interpretation Comments POCT GLU (test code = 1028420526) 242 mg/dL 70-110 H Lab Interpretation (test code = Abnormal 98535-6) [facility] GLUCOSE (AUTOMATED)2022-08-15 13:14:31 Test Item Value Reference Range Interpretation Comments POCT GLU (test code = 3408092662) 190 mg/dL 70-110 H Lab Interpretation (test code = Abnormal 01189-9) [facility] GLUCOSE (AUTOMATED)2022-08-15 12:44:36 Test Item Value Reference Range Interpretation Comments POCT GLU (test code = 0557256696) 240 mg/dL 70-110 H Lab Interpretation (test code = Abnormal 05862-4) [facility]-08-15 03:30:50 Test Item Value Reference Range Interpretation Comments HGB A1C (test code = 7.3 % 4-5.7 H 4548-4) SPARKLE (test code = SPARKLE) Reference RangesNormal: <5.7%Prediabetes: 5.7 - 6.4%Diabetes: > 6.5% Lab Interpretation (test Abnormal code = 34545-2) [id number] 00:25:39 Test Item Value Reference Interpretation Comments Range D-DIMER (test code = See_Comment [Autom ated 8328797421) message] The system which generated this result transmitted reference range : <0.41 ?g/mL (FEU). The reference range was not used to interpret this result as normal/abnormal . SPARKLE (test code = This test may be SPARKLE) used in conjunction with a clinical pretest probability (PTP) assessment model to exclude venous thromboembolism (VTE) in patients suspected of deep venous thrombosis (DVT) and pulmonary embolism (PE) A D-Dimer value less than 0.50 ?g/ml (FEU) has a negative predicative value of 96 to 100% (95% CI)and 97 to 100% (95% CI) as an aid in the diagnosis of deep vein thrombosis (DVT) and pulmonary embolism when there is low or moderate pretest probability of PE or DVT. D-Dimer values are expressed in initial fibrinogen equivalent units (FEU)" The assay results should be used with other information, including the clinical context, in forming a diagnosis. Lab Interpretation Normal (test code = 36942-0) [facility] [id number] 00:13:59 Test Item Value Reference Interpretation Comments Range TROPONIN I (test See_Comment [Automated code = 5534342202) message] The system which generated this result transmitted reference range : <=0.034. The reference range was not used to interpret this result as normal/abnormal . SPARKLE (test code = Reference (Normal) SPARKLE) Range (defined by the 99th percentile reference limit): <= 0.034 ng/mL Note: Cardiac troponin begins to rise 3-4 hours after the onset of ischemia. Repeat in 4-6 hours if the sample was drawn within 3-4 hours of the onset of the symptom and found normal. Diagnosis of myocardial injury is made with acute changes in cTn concentrations with at least one serial sample above the 99th percentile upper reference limit (URL), taken together with the patient's clinical presentation. Biotin has been reported to cause a negative bias, interpret results relative to patient's use of biotin. Lab Interpretation Normal (test code = 34350-4) [facility] [id number] 00:10:37 Test Item Value Reference Range Interpretation Comments NT-proBNP (test code 139 pg/mL See_Comment H [Autom ated = 6624234375) message] The system which generated this result transmitted reference range : <=125. The reference range was not used to interpret this result as normal/abnormal . SPARKLE (test code = SPARKLE) Biotin has been reported to cause a negative bias, interpret results relative to patient's use of biotin. Lab Interpretation Abnormal (test code = 48790-5) [facility] METABOLIC PAN[facility] (74467)2022-08-15 00:02:35 Test Item Value Reference Range Interpretation Comments NA (test code = 137 mmol/L 135-145 1047291028) K (test code = 4.0 mmol/L 3.5-5 9248649043) CL (test code = 97 mmol/L 98-108 L 7664577347) CO2 TOTAL (test code = 22 mmol/L 23-31 L 9715962335) AGAP (test code = 2-16 H 4087343457) BUN (test code = 15 mg/dL 7-23 3628370471) GLUCOSE (test code = 164 mg/dL 70-110 H 2724532353) CREATININE (test code = 1.61 mg/dL 0.6-1.25 H 5139882429) TOTAL BILI (test code = 0.7 mg/dL 0.1-1.1 1214213279) CALCIUM (test code = 9.4 mg/dL 8.6-10.6 5196155780) T PROTEIN (test code = 8.0 g/dL 6.3-8.2 7937210342) ALBUMIN (test code = 4.8 g/dL 3.5-5 5667682922) ALK PHOS (test code = 171 U/L 34-122 H 7662394589) ALTv (test code = 48 U/L 5-50 1742-6) AST(SGOT) (test code = 50 U/L 13-40 H 9669223033) eGFR (test code = mL/min/1.73m2 8051592539) SPARKLE (test code = SPARKLE) Association of Glomerular Filtration Rate (GFR) and Staging of Kidney Disease* + --+ --+ ------+| GFR (mL/min/1.73 m2) ?| With Kidney Damage ?| ?Without Kidney Damage+ --------+ --------+ +| ?>90 ?| ?Stage one ?| ? Normal ?+ ---+ ---+ -------+| ?60-89 ?| ?Stage two ?| ? Decreased GFR ? + --+ --+ ------+| ?30-59 ?| ?Stage three ?| ? Stage three ? + --+ --+ ------+| ?15-29 ?| ?Stage four ? | ? Stage four ?+ ---+ ---+ -------+| ?<15 (or dialysis) ? ?| ?Stage five ? | ? Stage five ?+ ---+ ---+ -------+ *Each stage assumes the associated GFR level has been in effect for at least three months. ?Stages 1 to 5, with or without kidney disease, indicate chronic kidney disease. Notes: Determination of stages one and two (with eGFR >59mL/min/1.73 m2) requires estimation of kidney damage for at least three months as defined by structural or functional abnormalities of the kidney, manifested by either:Pathological abnormalities or Markers of kidney damage (including abnormalities in the composition of the blood or urine or abnormalities in imaging tests). Lab Interpretation Abnormal (test code = 33499-1) [facility] WITH [id number] 23:48:14 Test Item Value Reference Range Interpretation Comments WBC (test code = See_Comment H [Automated 6590-2) message] The system which generated this result transmit jennifer reference range : 4.20 - 10.70 10*3/?L. The reference range was not used to interpret this result as normal/abnormal . RBC (test code = See_Comment [Automated 789-8) message] The system which generated this result transmit jennifer reference range : 4.26 - 5.52 10*6/?L. The reference range was not used to interpret this result as normal/abnormal . HGB (test code = 14.1 g/dL 12.2-16.4 718-7) HCT (test code = 41.8 % 38.4-49.3 4544-3) MCV (test code = 94.6 fL 81.7-95.6 787-2) MCH (test code = 31.9 pg 26.1-32.7 785-6) MCHC (test code = 33.7 g/dL 31.2-35 786-4) RDW-SD (test code = 50.5 fL 38.5-51.6 01980-4) RDW-CV (test code = 14.6 % 12.1-15.4 788-0) PLT (test code = See_Comment H [Automated 777-3) message] The system which generated this result transmit jennifer reference range : 150 - 328 10*3/ ?L. The reference range was not u sed to interpret th is result as normal/abnormal . MPV (test code = 10.0 fL 9.8-13 61180-6) NRBC/100 WBC (test See_Comment [Automat ed code = 7737722220) message] The system which generated this result transmit jennifer reference range : 0.0 - 10.0 /100 WBCs. The reference range was not used to interpret this result as normal/abnormal . NRBC x10^3 (test code See_Comment [Auto mated = 3448194115) message] The system which generated this result transmit jennifer reference range : 10*3/?L. The reference range was not used to interpret this result as normal/abnormal . GRAN MAT (NEUT) % 64.0 % (test code = 770-8) IMM GRAN % (test code 0.90 % = 4257827826) LYMPH % (test code = 19.0 % 736-9) MONO % (test code = 7.1 % 5905-5) EOS % (test code = 8.3 % 713-8) BASO % (test code = 0.7 % 706-2) GRAN MAT x10^3(ANC) 11.28 10*3/uL 1.99-6.95 H (test code = 5536061709) IMM GRAN x10^3 (test 0.16 10*3/uL 0-0.06 H code = 0387090262) LYMPH x10^3 (test code 3.35 10*3/uL 1.09-3.23 H = 731-0) MONO x10^3 (test code 1.25 10*3/uL 0.36-1.02 H = 742-7) EOS x10^3 (test code = 1.47 10*3/uL 0.06-0.53 H 711-2) BASO x10^3 (test code 0.13 10*3/uL 0.01-0.09 H = 704-7) Lab Interpretation Abnormal (test code = 48936-0) [facility]TIGEN (BINAX NOW)2022-07-31 21:38:00 Test Item Value Reference Range Interpretation Comments POCT SARS-COV-2 ANTIGEN Not Detected Not Detected (test code = 5076) On board controls Yes acceptable with C Line (test code = 3574) SPARKLE (test code = SPARKLE) accurate development and interpretation of all internal controls Lab Interpretation Normal (test code = 45087-1) [facility]. METABOLIC PANEL (75368)2022-07-26 02:06:49 Test Item Value Reference Range Interpretation Comments NA (test code = 134 mmol/L 135-145 L 7474188270) K (test code = 3.9 mmol/L 3.5-5 8437766797) CL (test code = 99 mmol/L 98-108 3378323085) CO2 TOTAL (test code = 25 mmol/L 23-31 7422919012) AGAP (test code = 2-16 4359056817) BUN (test code = 26 mg/dL 7-23 H 1466205691) GLUCOSE (test code = 126 mg/dL 70-110 H 5484945901) CREATININE (test code = 1.53 mg/dL 0.6-1.25 H 5592930009) TOTAL BILI (test code = 0.5 mg/dL 0.1-1.0 8633232612) CALCIUM (test code = 8.8 mg/dL 8.6-10.6 9920306087) T PROTEIN (test code = 7.1 g/dL 6.3-8.2 3236780704) ALBUMIN (test code = 4.5 g/dL 3.5-5 3121962227) ALK PHOS (test code = 182 U/L 34-122 H 1896910781) ALTv (test code = 69 U/L 5-50 H 1742-6) AST(SGOT) (test code = 63 U/L 13-40 H 3827823580) eGFR (test code = mL/min/1.73m2 0824493343) SPARKLE (test code = SPARKLE) Association of Glomerular Filtration Rate (GFR) and Staging of Kidney Disease* + --+ --+ ------+| GFR (mL/min/1.73 m2) ?| With Kidney Damage ?| ?Without Kidney Damage+ --------+ --------+ +| ?>90 ?| ?Stage one ?| ? Normal ?+ ---+ ---+ -------+| ?60-89 ?| ?Stage two ?| ? Decreased GFR ? + --+ --+ ------+| ?30-59 ?| ?Stage three ?| ? Stage three ? + --+ --+ ------+| ?15-29 ?| ?Stage four ? | ? Stage four ?+ ---+ ---+ -------+| ?<15 (or dialysis) ? ?| ?Stage five ? | ? Stage five ?+ ---+ ---+ -------+ *Each stage assumes the associated GFR level has been in effect for at least three months. ?Stages 1 to 5, with or without kidney disease, indicate chronic kidney disease. Notes: Determination of stages one and two (with eGFR >59mL/min/1.73 m2) requires estimation of kidney damage for at least three months as defined by structural or functional abnormalities of the kidney, manifested by either:Pathological abnormalities or Markers of kidney damage (including abnormalities in the composition of the blood or urine or abnormalities in imaging tests). Lab Interpretation Abnormal (test code = 69075-9) [facility] WITH [id number] 00:53:21 Test Item Value Reference Range Interpretation Comments WBC (test code = See_Comment H [Automated 2590-2) message] The system which generated this result transmit jennifer reference range : 4.20 - 10.70 10*3/?L. The reference range was not used to interpret this result as normal/abnormal . RBC (test code = See_Comment [Automated 719-8) message] The system which generated this result transmit jennifer reference range : 4.26 - 5.52 10*6/?L. The reference range was not used to interpret this result as normal/abnormal . HGB (test code = 13.5 g/dL 12.2-16.4 718-7) HCT (test code = 40.3 % 38.4-49.3 4544-3) MCV (test code = 93.5 fL 81.7-95.6 787-2) MCH (test code = 31.3 pg 26.1-32.7 785-6) MCHC (test code = 33.5 g/dL 31.2-35 786-4) RDW-SD (test code = 47.7 fL 38.5-51.6 04414-5) RDW-CV (test code = 13.9 % 12.1-15.4 788-0) PLT (test code = See_Comment H [Automated 777-3) message] The system which generated this result transmit jennifer reference range : 150 - 328 10*3/ ?L. The reference range was not u sed to interpret th is result as normal/abnormal . MPV (test code = 9.6 fL 9.8-13 L 81580-0) NRBC/100 WBC (test See_Comment [Automat ed code = 9073253602) message] The system which generated this result transmit jennifer reference range : 0.0 - 10.0 /100 WBCs. The reference range was not used to interpret this result as normal/abnormal . NRBC x10^3 (test code See_Comment [Auto mated = 2418842694) message] The system which generated this result transmit jennifer reference range : 10*3/?L. The reference range was not used to interpret this result as normal/abnormal . GRAN MAT (NEUT) % 68.2 % (test code = 770-8) IMM GRAN % (test code 0.50 % = 8364749191) LYMPH % (test code = 15.8 % 736-9) MONO % (test code = 6.0 % 5905-5) EOS % (test code = 8.6 % 713-8) BASO % (test code = 0.9 % 706-2) GRAN MAT x10^3(ANC) 10.65 10*3/uL 1.99-6.95 H (test code = 4183369960) IMM GRAN x10^3 (test 0.08 10*3/uL 0-0.06 H code = 8875205875) LYMPH x10^3 (test code 2.47 10*3/uL 1.09-3.23 = 731-0) MONO x10^3 (test code 0.93 10*3/uL 0.36-1.02 = 742-7) EOS x10^3 (test code = 1.34 10*3/uL 0.06-0.53 H 711-2) BASO x10^3 (test code 0.14 10*3/uL 0.01-0.09 H = 704-7) Lab Interpretation Abnormal (test code = 50316-0) [facility] [id number] 15:38:00 Test Item Value Reference Range Interpretation Comments COVID 19 Asymptomatic Negative Negative A nega tive result is IH AG (test code = presumpti ve and should COVNONPUIAG) be confirmedwit h an FDA authorized mole cular assay, if neces mahesh forpatient yanet gement.A positive result does not rule out co-inf ections withother patho gens.This test detects rufino th viable (live) and non-viable,SARS -CoV, and SARS-CoV-2. Emrissa t performance dep ends on theamount of vi teresita (antigen) in th e sample.This merissa t has not been FDA cleare d or approved; the t est hasbeen authori zed by FDA under an Em ergency Use Authorizati on(EUA) for use by labo ratories certified under the CLIA thatmeet the requirements to perform moderate, high or waivedcomplexit y tests. CBC W/AUTO [id number] 14:27:00 Test Item Value Reference Range Interpretation Comments WHITE BLOOD CELL (test code = 13.7 x10 3/uL 4.5-11.0 H WBC) RED BLOOD CELL (test code = 4.30 x10 6/uL 4.00-5.60 N RBC) HEMOGLOBIN (test code = HGB) 13.8 g/dL 12.5-16.9 N HEMATOCRIT (test code = HCT) 42.3 % 37.5-50.7 N MEAN CELL VOLUME (test code = 98.4 fL 81.0-99.0 N MCV) MEAN CELL HGB (test code = 32.1 pg 27.0-33.0 N MCH) MEAN CELL HGB CONCETRATION 32.6 g/dL 33.0-37.0 L (test code = MCHC) RED CELL DISTRIBUTION WIDTH CV 14.7 % 11.5-14.5 H (test code = RDW) RED CELL DISTRIBUTION WIDTH SD 53.1 fL 37.0-54.0 N (test code = RDW-SD) PLATELET COUNT (test code = 321 x10 3/uL 150-400 N PLT) MEAN PLATELET VOLUME (test 10.7 fL 7.0-9.0 H code = MPV) NEUTROPHIL % (test code = NT%) 74.0 % 56.0-77.0 N IMMATURE GRANULOCYTE % (test 0.6 % 0.0-2.0 N code = IG%) LYMPHOCYTE % (test code = LY%) 13.9 % 14.0-32.0 L MONOCYTE % (test code = MO%) 5.6 % 4.8-9.0 N EOSINOPHIL % (test code = EO%) 5.2 % 0.3-3.7 H BASOPHIL % (test code = BA%) 0.7 % 0.0-2.0 N NUCLEATED RBC % (test code = 0.0 % 0-0 N NRBC%) NEUTROPHIL # (test code = NT#) 10.11 x10 3/uL 2.0-7.6 H IMMATURE GRANULOCYTE # (test 0.08 x10 3/uL 0.00-0.03 H code = IG#) LYMPHOCYTE # (test code = LY#) 1.90 x10 3/uL 1.0-3.8 N MONOCYTE # (test code = MO#) 0.76 x10 3/uL 0.1-0.8 N EOSINOPHIL # (test code = EO#) 0.71 x10 3/uL 0.0-0.2 H BASOPHIL # (test code = BA#) 0.09 x10 3/uL 0.0-0.2 N NUCLEATED RBC # (test code = 0.00 x10 3/uL 0.0-0.1 N NRBC#) MANUAL DIFF REQUIRED (test NO code = MDIFF) BASIC METABOLIC [id number] 14:27:00 Test Item Value Reference Range Interpretation Comments SODIUM (test code = NA) 138 mEq/L 134-147 N POTASSIUM (test code = 3.6 mEq/L 3.4-5.0 N K) CHLORIDE (test code = 102 mEq/L 100-108 N CL) CARBON DIOXIDE (test 28 mEq/l 21-33 N code = CO2) ANION GAP (test code = 12 0-20 N GAP) GLUCOSE (test code = 152 mg/dL 70-110 H GLU) BLOOD UREA NITROGEN 15 mg/dL 7-18 N (test code = BUN) GLOMERULAR FILTRATION 44.3 80-90 L Units of measure = RATE (test code = GFR) ml/mi n/1.73 m2 CREATININE (test code = 1.6 mg/dL 0.6-1.3 H CREAT) CALCIUM (test code = 9.5 mg/dL 8.0-10.5 N CA) Vukxguyadv2416-21-87 13:43:41Roney Franco CRNA 03/29/2021 8:44 AMIntubationDate/Time: 03/29/2021 8:25 AMUrgency: elective Airway not difficult General Information and Staff Patient location during procedure: ORResident/CIRCULATION TENDER: Roney Franco CRNAPerformed: resident/CIRCULATION TENDER Indications and Patient ConditionIndications for airway management: anesthesiaSpontaneous Ventilation: absentSedation level: deepPreoxygenated: yesPatient position: sniffingMILS maintained throughoutMask difficulty assessment: 1 - vent by mask Final Airway DetailsFinal airway type: endotracheal airway Successful airway: ETTCuffed: yes Successful intubation technique: video laryngoscopyEndotracheal tube insertion site: oralBlade: MacintoshBlade size: #3ETT size (mm): 7.5Cormack-Lehane Classification: grade I - full view of glottisPlacement verified by: chest auscultation and capnometry Cuff volume (mL): 10Measured from: lipsETT to lips (cm): 23Number of attempts at approach: 1Ventilation between attempts: noneNumber of other approaches attempted: 0Additional Comments+ vocal cords visualized, atraumatic intubation, teeth and lips per preop assessmentUnHCA [facility] LakePOTN GLUCOSE (AUTOMATED) 2021-03-29 12:32:08 Test Item Value Reference Range Interpretation Comments POCT GLU (test code = 3803275749) 117 mg/dL 70-110 H Lab Interpretation (test code = Abnormal 80205-9) [facility] [id number] 03:37:00 Test Item Value Reference Range Interpretation Comments Troponin-I (test code no gt See_Comment [Auto mated message] The = Troponin-I) system which g enerated this result transmit jennifer reference range : <=0.40. The reference r emanuel was not used to interpr et this result as keith l/abnormal. [facility] [id number] 03:37:00 Test Item Value Reference Range Interpretation Comments Troponin-I (test code no gt See_Comment [Auto mated message] The = Troponin-I) system which g enerated this result transmit jennifer reference range : <=0.40. The reference r emanuel was not used to interpr et this result as keith l/abnormal. [facility]landsLmovcuhVNHNHRWQRI1679-49-06 01:38:00 Test Item Value Reference Range Interpretation Comments MPV (test code = MPV) 8.4 7.4-10.4 [facility]landsLxfhtimSEXGAEVTIB1129-35-16 01:38:00 Test Item Value Reference Range Interpretation Comments Platelet (test code = Platelet) 276 133-450 [facility]landsFpmnzidOXIUEOFUYX4084-99-33 01:38:00 Test Item Value Reference Range Interpretation Comments MCV (test code = MCV) 96.3 80.0-94.0 [facility]landsXtufzxmHCWGIQVDVE9462-15-00 01:38:00 Test Item Value Reference Range Interpretation Comments Hgb (test code = Hgb) 13.6 14.0-18.0 [facility]landsCvyztnuOXQMYHFWPY0583-39-00 01:38:00 Test Item Value Reference Range Interpretation Comments RBC (test code = RBC) 4.31 4.70-6.10 [facility]landsOctqkdjSTUOSDLUVQ8733-49-99 01:38:00 Test Item Value Reference Range Interpretation Comments Hct (test code = Hct) 41.6 42.0-54.0 [facility]landsMrgzvjfJCQSEGDTWT8466-26-10 01:38:00 Test Item Value Reference Range Interpretation Comments MCH (test code = MCH) 31.6 pg 27.0-31.0 [facility]xtSBOSSGBWPY8099-38-66 01:38:00 Test Item Value Reference Range Interpretation Comments WBC (test code = WBC) 11.9 3.7-10.4 [facility]ScienionLOU[facility] [id number] 01:38:00 Test Item Value Reference Range Interpretation Comments Troponin-I (test code no gt See_Comment [Auto mated message] The = Troponin-I) system which g enerated this result transmit jennifer reference range : <=0.40. The reference r emanuel was not used to interpr et this result as keith l/abnormal. [facility] CenterCARDIAC [id number] 01:38:00 Test Item Value Reference Range Interpretation Comments CK MB (test code = CK MB) 3.0 0.5-3.6 [facility] [id number] 01:38:00 Test Item Value Reference Range Interpretation Comments Troponin-I (test code no gt See_Comment [Auto mated message] The = Troponin-I) system which g enerated this result transmit jennifer reference range : <=0.40. The reference r emanuel was not used to interpr et this result as keith l/abnormal. [facility]SmartpayDIAC [id number] 01:38:00 Test Item Value Reference Range Interpretation Comments CK MB (test code = CK MB) 3.0 0.5-3.6 [facility]2015-06-30 01:38:00 Test Item Value Reference Range Interpretation Comments Creatinine Lvl (test code = Creatinine 1.1 0.5-1.4 Lvl) [facility]2015-06-30 01:38:00 Test Item Value Reference Range Interpretation Comments Sodium Lvl (test code = Sodium Lvl) 138 135-145 [facility]2015-06-30 01:38:00 Test Item Value Reference Range Interpretation Comments Potassium Lvl (test code = Potassium 3.7 3.5-5.1 Lvl) [facility]2015-06-30 01:38:00 Test Item Value Reference Range Interpretation Comments BUN (test code = BUN) 7 7-22 [facility]2015-06-30 01:38:00 Test Item Value Reference Range Interpretation Comments ALT (test code = ALT) 27 See_Comment [Auto mated message] The system which ge nerated this result transmit jennifer reference range : <=65. The reference range was not used to interpr et this result as keith l/abnormal. [facility]2015-06-30 01:38:00 Test Item Value Reference Range Interpretation Comments Albumin Lvl (test code = Albumin Lvl) 3.9 3.5-5.0 [facility]2015-06-30 01:38:00 Test Item Value Reference Range Interpretation Comments Alk Phos (test code = Alk Phos) 93 39-136 [facility]2015-06-30 01:38:00 Test Item Value Reference Range Interpretation Comments Glucose Lvl (test code = Glucose Lvl) 91 70-99 [facility]2015-06-30 01:38:00 Test Item Value Reference Range Interpretation Comments Total Protein (test code = Total 7.1 6.4-8.4 Protein) [facility]2015-06-30 01:38:00 Test Item Value Reference Range Interpretation Comments AST (test code = AST) 15 See_Comment [Auto mated message] The system which ge nerated this result transmit jennifer reference range : <=37. The reference range was not used to interpr et this result as keith l/abnormal. [facility]2015-06-30 01:38:00 Test Item Value Reference Range Interpretation Comments CO2 (test code = CO2) 26 24-32 [facility]2015-06-30 01:38:00 Test Item Value Reference Range Interpretation Comments Creatinine Lvl (test code = Creatinine 1.1 0.5-1.4 Lvl) [facility]2015-06-30 01:38:00 Test Item Value Reference Range Interpretation Comments Calcium Lvl (test code = Calcium Lvl) 8.7 8.5-10.5 [facility]2015-06-30 01:38:00 Test Item Value Reference Range Interpretation Comments Bili Total (test code = Bili Total) 0.3 0.2-1.3 [facility]2015-06-30 01:38:00 Test Item Value Reference Range Interpretation Comments Chloride Lvl (test code = Chloride Lvl) 107 95-109 [facility]2015-06-30 01:38:00 Test Item Value Reference Range Interpretation Comments eGFR (test code = eGFR) 80 [facility]2015-06-30 01:38:00 Test Item Value Reference Range Interpretation Comments A/G Ratio (test code = A/G Ratio) 1.2 0.7-1.6 [facility]2015-06-30 01:38:00 Test Item Value Reference Range Interpretation Comments B/C Ratio (test code = B/C Ratio) 6 6-25 [facility] [facility] 01:38[facility]00 Test Item Value Reference Range Interpretation Comments Globulin (test code = Globulin) 3.2 2.0-4.0 [facility]2015-06-30 01:38:00 Test Item Value Reference Range Interpretation Comments AGAP (test code = AGAP) 8.7 10.0-20.0 [id number] 01:38:00 Test Item Value Reference Range Interpretation Comments Eosinophils # (test code 0.4 See_Comment [A utomated message] The = Eosinophils #) system whic h generated this result tra nsmitted reference range : <=0.5. The reference r emanuel was not used to int erpret this result as normal/abnormal . [id number] 01:38:00 Test Item Value Reference Range Interpretation Comments Basophils # (test code 0.1 See_Comment [Aut omated message] The = Basophils #) system which generated this result tra nsmitted reference range : <=0.2. The reference r emanuel was not used to int erpret this result as normal/abnormal . [facility]lan[id number] 01:38:00 Test Item Value Reference Range Interpretation Comments Lymphocytes # (test code = Lymphocytes 3.5 1.0-5.5 #) [facility]lan[id number] 01:38:00 Test Item Value Reference Range Interpretation Comments Monocytes # (test code 0.8 See_Comment [Aut omated message] The = Monocytes #) system which generated this result tra nsmitted reference range : <=0.8. The reference r emanuel was not used to int erpret this result as normal/abnormal . [id number] 01:38:00 Test Item Value Reference Range Interpretation Comments Eosinophils (test code = 3.0 See_Comment [A utomated message] The Eosinophils) system which ge nerated this result tra nsmitted reference range : <=4.0. The reference r emanuel was not used to int erpret this result as normal/abnormal . [facility]lan[id number] 01:38:00 Test Item Value Reference Range Interpretation Comments Monocytes (test code = Monocytes) 7.0 2.0-12.0 [id number] 01:38:00 Test Item Value Reference Range Interpretation Comments Segs-Bands # (test code = Segs-Bands #) 7.1 1.5-8.1 [id number] 01:38:00 Test Item Value Reference Range Interpretation Comments Basophils (test code = 0.8 See_Comment [Aut omated message] The Basophils) system which ge nerated this result tra nsmitted reference range : <=1.0. The reference r emanuel was not used to int erpret this result as normal/abnormal . [id number] 01:38:00 Test Item Value Reference Range Interpretation Comments Segs (test code = Segs) 59.6 45.0-75.0 [facility]landsQhwwywaHNTUVZQQGU7503-09-26 01:38:00 Test Item Value Reference Range Interpretation Comments Lymphocytes (test code = Lymphocytes) 29.6 20.0-40.0 [facility]landsWwdzjgkNZNOXJMYSF4675-75-15 01:38:00 Test Item Value Reference Range Interpretation Comments INR (test code = INR) 0.96 0.85-1.17 [facility]landsCmlekbcKOUVBSPHYT7470-41-10 01:38:00 Test Item Value Reference Range Interpretation Comments PTT (test code = PTT) 32.0 s 22.9-35.8 [facility]lan[id number] 01:38:00 Test Item Value Reference Range Interpretation Comments PT (test code = PT) 12.8 s 12.0-14.7 [facility]landsWufcpunCGJHDNJBTH6943-65-31 01:38:00 Test Item Value Reference Range Interpretation Comments RDW (test code = RDW) 14.4 11.5-14.5 [id number] 01:38:00 Test Item Value Reference Range Interpretation Comments MCHC (test code = MCHC) 32.8 32.0-36.0 [id number] 01:38:00 Test Item Value Reference Range Interpretation Comments MPV (test code = MPV) 8.4 7.4-10.4 [id number] 01:38:00 Test Item Value Reference Range Interpretation Comments Platelet (test code = Platelet) 343 072-450 [facility]lan[id number] 01:38:00 Test Item Value Reference Range Interpretation Comments MCV (test code = MCV) 96.3 80.0-94.0 [facility]lan[id number] 01:38:00 Test Item Value Reference Range Interpretation Comments Hgb (test code = Hgb) 13.6 14.0-18.0 [facility]lan[id number] 01:38:00 Test Item Value Reference Range Interpretation Comments RBC (test code = RBC) 4.31 4.70-6.10 [id number] 01:38:00 Test Item Value Reference Range Interpretation Comments Hct (test code = Hct) 41.6 42.0-54.0 [id number] 01:38:00 Test Item Value Reference Range Interpretation Comments MCH (test code = MCH) 31.6 pg 27.0-31.0 [facility]2015-06-30 01:38:00 Test Item Value Reference Range Interpretation Comments Sodium Lvl (test code = Sodium Lvl) 138 135-145 [id number] 01:38:00 Test Item Value Reference Range Interpretation Comments WBC (test code = WBC) 11.9 3.7-10.4 [facility]2015-06-30 01:38:00 Test Item Value Reference Range Interpretation Comments Potassium Lvl (test code = Potassium 3.7 3.5-5.1 Lvl) [facility]2015-06-30 01:38:00 Test Item Value Reference Range Interpretation Comments BUN (test code = BUN) 7 7-22 [facility]2015-06-30 01:38:00 Test Item Value Reference Range Interpretation Comments ALT (test code = ALT) 27 See_Comment [Auto mated message] The system which ge nerated this result transmit jennifer reference range : <=65. The reference range was not used to interpr et this result as keith l/abnormal. [facility]2015-06-30 01:38:00 Test Item Value Reference Range Interpretation Comments Albumin Lvl (test code = Albumin Lvl) 3.9 3.5-5.0 [facility]2015-06-30 01:38:00 Test Item Value Reference Range Interpretation Comments Alk Phos (test code = Alk Phos) 93 39-136 [facility]2015-06-30 01:38:00 Test Item Value Reference Range Interpretation Comments Glucose Lvl (test code = Glucose Lvl) 91 70-99 [facility]2015-06-30 01:38:00 Test Item Value Reference Range Interpretation Comments Total Protein (test code = Total 7.1 6.4-8.4 Protein) [facility]2015-06-30 01:38:00 Test Item Value Reference Range Interpretation Comments AST (test code = AST) 15 See_Comment [Auto mated message] The system which ge nerated this result transmit jennifer reference range : <=37. The reference range was not used to interpr et this result as keith l/abnormal. [facility]2015-06-30 01:38:00 Test Item Value Reference Range Interpretation Comments CO2 (test code = CO2) 26 24-32 [facility]2015-06-30 01:38:00 Test Item Value Reference Range Interpretation Comments Calcium Lvl (test code = Calcium Lvl) 8.7 8.5-10.5 [facility]2015-06-30 01:38:00 Test Item Value Reference Range Interpretation Comments Bili Total (test code = Bili Total) 0.3 0.2-1.3 [facility]2015-06-30 01:38:00 Test Item Value Reference Range Interpretation Comments Chloride Lvl (test code = Chloride Lvl) 107 95-109 [facility]2015-06-30 01:38:00 Test Item Value Reference Range Interpretation Comments eGFR (test code = eGFR) 80 [facility]2015-06-30 01:38:00 Test Item Value Reference Range Interpretation Comments A/G Ratio (test code = A/G Ratio) 1.2 0.7-1.6 [facility]2015-06-30 01:38:00 Test Item Value Reference Range Interpretation Comments B/C Ratio (test code = B/C Ratio) 6 6-25 [facility]2015-06-30 01:38:00 Test Item Value Reference Range Interpretation Comments Globulin (test code = Globulin) 3.2 2.0-4.0 [facility]2015-06-30 01:38:00 Test Item Value Reference Range Interpretation Comments AGAP (test code = AGAP) 8.7 10.0-20.0 [id number] 01:38:00 Test Item Value Reference Range Interpretation Comments Eosinophils # (test code 0.4 See_Comment [A utomated message] The = Eosinophils #) system whic h generated this result tra nsmitted reference range : <=0.5. The reference r emanuel was not used to int erpret this result as normal/abnormal . [id number] 01:38:00 Test Item Value Reference Range Interpretation Comments Basophils # (test code 0.1 See_Comment [Aut omated message] The = Basophils #) system which generated this result tra nsmitted reference range : <=0.2. The reference r emanuel was not used to int erpret this result as normal/abnormal . [id number] 01:38:00 Test Item Value Reference Range Interpretation Comments Lymphocytes # (test code = Lymphocytes 3.5 1.0-5.5 #) [id number] 01:38:00 Test Item Value Reference Range Interpretation Comments Monocytes # (test code 0.8 See_Comment [Aut omated message] The = Monocytes #) system which generated this result tra nsmitted reference range : <=0.8. The reference r emanuel was not used to int erpret this result as normal/abnormal . [id number] 01:38:00 Test Item Value Reference Range Interpretation Comments Eosinophils (test code = 3.0 See_Comment [A utomated message] The Eosinophils) system which ge nerated this result tra nsmitted reference range : <=4.0. The reference r emanuel was not used to int erpret this result as normal/abnormal . [id number] 01:38:00 Test Item Value Reference Range Interpretation Comments Monocytes (test code = Monocytes) 7.0 2.0-12.0 [id number] 01:38:00 Test Item Value Reference Range Interpretation Comments Segs-Bands # (test code = Segs-Bands #) 7.1 1.5-8.1 [id number] 01:38:00 Test Item Value Reference Range Interpretation Comments Basophils (test code = 0.8 See_Comment [Aut omated message] The Basophils) system which ge nerated this result tra nsmitted reference range : <=1.0. The reference r emanuel was not used to int erpret this result as normal/abnormal . [id number] 01:38:00 Test Item Value Reference Range Interpretation Comments Segs (test code = Segs) 59.6 45.0-75.0 [id number] 01:38:00 Test Item Value Reference Range Interpretation Comments Lymphocytes (test code = Lymphocytes) 29.6 20.0-40.0 [facility]landsK[id number] 01:38:00 Test Item Value Reference Range Interpretation Comments INR (test code = INR) 0.96 0.85-1.17 [id number] 01:38:00 Test Item Value Reference Range Interpretation Comments PTT (test code = PTT) 32.0 s 22.9-35.8 [id number] 01:38:00 Test Item Value Reference Range Interpretation Comments PT (test code = PT) 12.8 s 12.0-14.7 [facility][id number] 01:38:00 Test Item Value Reference Range Interpretation Comments RDW (test code = RDW) 14.4 11.5-14.5 [id number] 01:38:00 Test Item Value Reference Range Interpretation Comments MCHC (test code = MCHC) 32.8 32.0-36.0 [facility]
[2022-12-20 20:24] LABS: Absolute Lymphocytes (CBC) 1.6 K/uL (0.7-4.9); Hematocrit 36.9 % (39.6-49.0); Lymphocytes % 18.5 % (15.3-44.8); MPV 8.5 fL (7.6-11.3); RBC Red Blood Cell Count 3.93 M/uL (4.33-5.43)
[2022-12-20 20:39] LABS: Albumin 3.3 g/dL (3.4-5.0); Bilirubin Total 0.3 mg/dL (0.2-1.0); Potassium 4.2 mmol/L (3.5-5.1)
--- NOTE | 2022-12-20 21:31 | RAD REPORT ---
EXAM DESCRIPTION: CT - Abdomen Pelvis W Contrast - 12/20/2022 9:13 pm CLINICAL HISTORY: Abdominal pain COMPARISON: none. TECHNIQUE: Computed axial tomography of the abdomen pelvis was obtained. 100 cc Isovue-300 was admin istered intravenously. Oral contrast was not requested which limits evaluation of bowel and appendix All CT scans are performed using dose optimization technique as appropriate and may include automated exposure control or mA/KV adjustment according to patient size. FINDINGS: Fatty liver. Liver is borderline enlarged. Splenic granulomata. Pancreas, adrenals are unremarkable. Small left renal cyst. 14 millimeter right renal mass Hounsfield unit 22. There is no evidence of diverticulitis. Normal appendix Small right and small to moderate left inguinal hernias contain fat IMPRESSION: 14 millimeter right renal mass does not represent a simple cyst. A benign complex cyst i s considered most likely. However, a cystic neoplasm can occasionally have this appearance. It is rec ommended that the patient have a followup renal ultrasound in 3 months for re-evaluation Fatty liver
--- NOTE | 2022-12-20 22:10 | ER ---
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 At this time, the client does not indicate any symptoms associated with coronavirus-19. Ebola Screen: No symptoms or risks identified at this time. Initial Sepsis Screen: Does the patient meet any 2 criteria? No. Patient's initial sepsis screen is negative. Does the patient have a suspected source of infection? No. Patient's initial sepsis screen is negative. Risk Assessment: Do you want to hurt yourself or someone else? Patient reports no desire to harm self or others. Onset of symptoms was December 20, 2022. 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 - Social history:: Smoking status: Patient/guardian denies using tobacco, the patient reports quitting approximately 8 years ago. Screenin:22 [facility] ED Fall Risk Assessment (Adult) History of falling in the last 3 months, jb4 including since admission No falls in past 3 months (0 pts) Confusion or Disorientation No (0 pts) Intoxicated or Sedated No (0 pts) Impaired Gait No (0 pts) Mobility Assist Device Used No (0 pt) Altered Elimination No (0 pt) Score/Fall Risk Level 0 - 2 = Low Risk Oriented to surroundings, Maintained a safe environment. Abuse screen: Denies threats or abuse. Nutritional screening: No deficits noted. Tuberculosis screening: No symptoms or risk factors identified. Assessment: 21:49 General: Appears in no apparent distress. comfortable, Behavior is calm, cooperative, jb4 appropriate for age. Pain: Denies pain. Neuro: Level of Consciousness is awake, alert, obeys commands, Oriented to person, place, time, situation. Cardiovascular: Patient's skin is warm and dry. Respiratory: Airway is patent Respiratory effort is even, unlabored, Respiratory pattern is regular, symmetrical. GI: Abdomen is round non-distended, Bowel sounds present X 4 quads. Abd is soft X 4 quads Abd is non tender in left upper quadrant and left lower quadrant Abdomen is tender to palpation in right upper quadrant and right lower quadrant. : No signs and/or symptoms were reported regarding the genitourinary system. EENT: No signs and/or symptoms were reported regarding the EENT system. Derm: Skin is intact, Skin is pink, warm \\T\\ dry. Musculoskeletal: Circulation, motion, and sensation intact. Range of motion: intact in all extremities. 22:22 Reassessment: Patient appears in no apparent distress at this time. Patient and/or jb4 family updated on plan of care and expected duration. Pain level reassessed. Patient is alert, oriented x 3, equal unlabored respirations, skin warm/dry/pink. Vital Signs: 20:00 BP 134 / 75; Pulse 75; Resp 18; Temp 98.5(O); Pulse Ox 98% on R/A; Weight 104.33 kg ll3 (R); Height 5 ft. 10 in. (177.80 cm) (R); Pain 4/10; 21:50 BP 127 / 56; Pulse 71; Resp 16; Pulse Ox 98% on R/A; jb4 20:00 Body Mass Index 33.00 (104.33 kg, 177.80 cm) ll3 ED Course: 19:22 Patient arrived in ED. ja2 19:28 Juliet Teran FNP-C is PHCP. kb 19:28 Rogelio Patel DO is Attending Physician. kb 20:03 Triage completed. ll3 20:03 Arm band placed on Patient placed in waiting room, Patient notified of wait time. ll3 20:18 Initial lab(s) drawn, by me, sent to lab. Inserted saline lock: 22 gauge in left ll3 antecubital area, using aseptic technique. Blood collected. 21:15 CT Abd/Pelvis - IV Contrast Only In Process Unspecified. EDMS 22:22 Patient has correct armband on for positive identification. Bed in low position. Call jb4 light in reach. Side rails up X 1. 22:22 No provider procedures requiring assistance completed. IV discontinued, intact, jb4 bleeding controlled, No redness/swelling at site. Pressure dressing applied. Administered Medications: 22:21 Drug: Ketorolac 15 mg Route: IVP; Site: left antecubital; jb4 22:21 Follow up: Response: Medication administered at discharge. jb4 22:21 Drug: Bentyl (dicyclomine) 20 mg Route: PO; jb4 22:21 Follow up: Response: Medication administered at discharge. jb4 Medication: 22:22 VIS not applicable for this client. jb4 Outcome: 22:09 Discharge ordered by . randy 22:22 Discharged to jb4 22:22 Discharged to home ambulatory. 22:22 Condition: stable 22:22 Discharge instructions given to patient, Instructed on discharge instructions, follow up and referral plans. medication usage, Demonstrated understanding of instructions, follow-up care, medications, Prescriptions given X 1. 22:23 Patient left the ED. jb4 Signatures: Dispatcher [employer] EDKS Juliet Teran, DROPPER TANK STORAGE-C DROPPER TANK STORAGE-Lucius Santos RN RN jb4 Vicky Lloyd Lynsea RN RN ll3
--- NOTE | 2022-12-20 22:10 | EDPHYS ---
Physician Documentation [facility] Name: Cindy Mays Age: 62 yrs Sex: Male : 1960 Arrival Date: 12/20/2022 Time: 19:22 Bed 8 Private MD: ED Physician Rogelio Patel HPI: 12/20 22:29 This 62 yrs old Male presents to ER via Ambulatory with complaints of Abdominal Pain, kb Rectal Bleeding. 22:29 The patient presents with abdominal pain right lower quadrant. Onset: The kb symptoms/episode began/occurred this morning. The symptoms do not radiate. Associated signs and symptoms: Pertinent positives: diarrhea. The symptoms are described as constant. Modifying factors: The symptoms are alleviated by nothing, the symptoms are aggravated by nothing. Severity of pain: At its worst the pain was moderate in the emergency department the pain is unchanged. The patient has not experienced similar symptoms in the past. The patient has not recently seen a physician. Pt reports abd pain that started today with diarrhea. States he has had intermittent bright red blood with bowel movements for about 2 weeks. States he had some blood with a bm this morning, but none since. States he had a normal bm with no blood this afternoon. 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 - Social history:: Smoking status: Patient/guardian denies using tobacco, the patient reports quitting approximately 8 years ago. ROS: 22:28 Constitutional: Negative for fever, chills, and weight loss. kb 22:28 Abdomen/GI: Positive for abdominal pain, diarrhea, rectal bleeding. 22:28 All other systems are negative. Exam: 22:28 Constitutional: This is a well developed, well nourished patient who is awake, alert, kb and in no acute distress. Head/Face: Normocephalic, atraumatic. ENT: Moist Mucous membranes Cardiovascular: Regular rate and rhythm with a normal S1 and S2. No gallops, murmurs, or rubs. No pulse deficits. Respiratory: Respirations even and unlabored. No increased work of breathing. Talking in full sentences Skin: Warm, dry with normal turgor. Normal color. MS/ Extremity: Pulses equal, no cyanosis. Neurovascular intact. Full, normal range of motion. Neuro: Awake and alert, GCS 15, oriented to person, place, time, and situation. Moves all extremities. Normal gait. 22:28 Abdomen/GI: Inspection: abdomen appears normal, Bowel sounds: normal, Palpation: soft, in all quadrants, moderate abdominal tenderness, in the right lower quadrant. Vital Signs: 20:00 BP 134 / 75; Pulse 75; Resp 18; Temp 98.5(O); Pulse Ox 98% on R/A; Weight 104.33 kg ll3 (R); Height 5 ft. 10 in. (177.80 cm) (R); Pain 4/10; 21:50 BP 127 / 56; Pulse 71; Resp 16; Pulse Ox 98% on R/A; jb4 20:00 Body Mass Index 33.00 (104.33 kg, 177.80 cm) ll3 MDM: 20:03 Patient medically screened. kb 22:28 Differential diagnosis: appendicitis, bowel obstruction, diverticulitis, gastritis. kb Data reviewed: vital signs, nurses notes. Consideration of Admission/Observation Escalation of care including admission/observation considered. Counseling: I had a detailed discussion with the patient and/or guardian regarding: the historical points, exam findings, and any diagnostic results supporting the discharge/admit diagnosis, lab results, radiology results, the need for outpatient follow up, a family practitioner, a roller picker, to return to the emergency department if symptoms worsen or persist or if there are any questions or concerns that arise at home. 12/20 20:06 Order name: CBC with Diff; Complete Time: 20:26 kb 12/20 20:06 Order name: CMP; Complete Time: 20:58 kb 12/20 20:06 Order name: Lipase; Complete Time: 20:58 kb 12/20 20:06 Order name: CT Abd/Pelvis - IV Contrast Only; Complete Time: 21:39 kb 12/20 20:06 Order name: IV Saline Lock; Complete Time: 20:18 kb 12/20 20:06 Order name: Labs collected and sent; Complete Time: 20:18 kb Administered Medications: 22:21 Drug: Ketorolac 15 mg Route: IVP; Site: left antecubital; jb4 22:21 Follow up: Response: Medication administered at discharge. jb4 22:21 Drug: Bentyl (dicyclomine) 20 mg Route: PO; jb4 22:21 Follow up: Response: Medication administered at discharge. jb4 Disposition: 23:25 Co-signature as Attending Physician, Rogelio Patel DO I reviewed the patient's care ms3 provided by the Advanced Practice Provider and agree with the diagnosis and treatment plan. Disposition Summary: 12/20/22 22:09 Discharge Ordered Location: Home kb Condition: Stable kb Diagnosis - Abdominal pain, Generalized kb Followup: kb - With: Emergency Department - When: As needed - Reason: Worsening of condition Followup: kb - With: Private Physician - When: 2 - 3 days - Reason: Recheck today's complaints, Continuance of care, Re-evaluation by your physician Discharge Instructions: - Discharge Summary Sheet kb - Abdominal Pain, Adult, Ebtj-vc-Ihlp kb Forms: - Medication Reconciliation Form kb - Thank You Letter kb - Antibiotic Education kb - Prescription Opioid Use kb Prescriptions: - dicyclomine 20 mg Oral Tablet - take 1 tablet by ORAL route 4 times per day As needed; 20 tablet; Refills: 0, kb Product Selection Permitted Signatures: Dispatcher [employer] EDMS Juliet Teran, FREELANCE DISPLAYER-C FREELANCE DISPLAYER-Lucius Santos, RN RN jb4 Rogelio Patel DO DO ms3 Mariella Rosenberg, RN RN ll3
[2022-12-20] MEDS ORDERED: DICYCLOMINE HCL 10 MG CAP ONE (22:19)
[2022-12-20] MEDS ORDERED: KETOROLAC 30 MG/ML INJ ONE (22:19)
[2022-12-20 23:16] VITALS: TEMP 98.5; O2SAT 98
[2022-12-20 23:22] VITALS: BP 127/56
== END 2022-12-20 22:23 | disposition home or self-care (01) ==
LOC: ER 19:19
DX: R10.84 Generalized abdominal pain (principal); Z88.5 Allergy status to narcotic agent
CPT/HCPCS: 36415; 74177; 80053; 83690; 85025; 96374; 99284; Q9967

== ENCOUNTER 2023-01-20 21:09 | Observation (INO) | payer SELFPAY ==
[2023-01-20 22:05] LABS: Absolute Lymphocytes (CBC) 1.9 K/uL (0.7-4.9); Hematocrit 40.5 % (39.6-49.0); Lymphocytes % 17.3 % (15.3-44.8); MPV 8.5 fL (7.6-11.3); RBC Red Blood Cell Count 4.36 M/uL (4.33-5.43)
--- OUTSIDE RECORDS SUMMARY | 2023-01-20 22:05 | XMS REPORT | Continuity of Care Document ---
:1960 Author Organization [facility] t Address [address] [facility] [address] [place] [address] Care Team Providers Name Role Phone Deyanira Quiroz Primary Care Physician MARVIN ANGELES Attending Clinician Unavailable MARVIN ANGELES Attending Clinician Unavailable FAHAD CHAN Attending Clinician Unavailable FERNANDA MC Attending Clinician Unavailable ANDREI HALL Attending Clinician Unavailable YAHAIRA WILSON Attending Clinician Unavailable VIJAYA ROMERO Attending Clinician Unavailable AMANDA PEREZ Attending Clinician Unavailable ANUPAMA ANNA Attending Clinician Unavailable Anupama Bautista Attending Clinician KIRK ESPITIA Attending Clinician Unavailable PATRICIA ZALDIVAR Attending Clinician Unavailable Patricia Zaldivar DO Attending Clinician Pob, Adc Lab Main Attending Clinician Unavailable Kerry FRIAS, Kirk Attending Clinician Lola Galvan LVN Attending Clinician SARAH CRAWFORD Attending Clinician Unavailable EZRA SHIRLEY Attending Clinician Unavailable MK QURESHI Attending Clinician Unavailable Bryon Metcalf DO Attending Clinician Shad العلي MD Attending Clinician Mk Qureshi MD Attending Clinician Katie FRIAS, Yahaira Evans Attending Clinician Kaylee Duffy MD Attending Clinician Unknown, Attending Attending Clinician Unavailable KAYLEE DUFFY Attending Clinician Unavailable Warner Neal Attending Clinician WARNER CASTELAN Attending Clinician Unavailable Jaycee Nobles LVN Attending Clinician Unavailable SERA NAVARRETE Attending Clinician Unavailable Sera Navarrete MD Attending Clinician Arie FRIAS, [facility] Attending Clinician Shefali Westfall MD Attending Clinician SHEFALI WESTFALL Attending Clinician Unavailable Doctor Unassigned, [place] Attending Clinician Unavailable PK OLEA Attending Clinician Unavailable PK OLEA Attending Clinician Unavailable Sarah Mcdermott Attending Clinician Deyanira Quiroz Attending Clinician Marj Stewart RN Attending Clinician Unavailable JO ANN SOTO Attending Clinician Unavailable JO ANN SOTO Attending Clinician Unavailable GEOVANI BERRIOS Attending Clinician Unavailable Nurse, [facility] Attending Clinician Unavailable Lab, Ang - Db Attending Clinician Unavailable Veronica Herndon MD Attending Clinician SHAD العلي Attending Clinician Unavailable Jean Ramírez MD Attending Clinician Testing, [facility] Pulmonary Function Attending Clinician UnavailPk Sheriff DO Attending Clinician 2, Adc Lab Attending Clinician Unavailable Delroy FRIAS, Leonardo Attending Clinician DEYANIRA GARCIA Attending Clinician Unavailable KAE ARTEAGA Attending Clinician Unavailable SOPHIE BURTON Attending Clinician Unavailable Sophie Burton DO Attending Clinician MORDANIEL BLACK Attending Clinician Unavailable Manuel FRIAS, Daniel Car Attending Clinician OMAGHOMI, OMAYEMI Attending Clinician Unavailable Omaghomi RN MENTAL HEALTH, Omayemi Attending Clinician Only, Adc Test Attending Clinician Unavailable Gold Covington MD Attending Clinician Andrew FRIAS, Sahil Attending Clinician Jaimie FRIAS, Fatmata Attending Clinician Ebrahim RN MENTAL HEALTH, Riana Attending Clinician Val Osman RN Attending Clinician Unavailable Rashad FRIAS, Jim Romero Attending Clinician RIANA DIMAS Attending Clinician Unavailable DOREEN HENDRICKSON Attending Clinician Unavailable Tessa Carrington Attending Clinician TESSA CLINE Attending Clinician Unavailable Jenny Chatterjee MD Attending Clinician MOI MEIER Attending Clinician Unavailable Provider, Ang Db [facility] Attending Clinician Unavailable Henry CLAROS, Ashly Attending Clinician ASHLY FIGUEROA Attending Clinician Unavailable LKAEISHA NELSON Attending Clinician Unavailable Omar FRIAS, Lakeisha Rasheed Attending Clinician Pradeep Montanez MD Attending Clinician Mey BRIONES, Amelia Schaefer Attending Clinician JOSELUIS OLIVEROS Attending Clinician Unavailable Domo FRIAS, Joseluis Attending Clinician Donita Mendez RN Attending Clinician Unavailable Only, Ang Db Test Attending Clinician Unavailable IBIKUNLE, FOLUSHO F Attending Clinician Unavailable Ibikunana RN MENTAL HEALTH, Kleber F Attending Clinician Kaveh BRIONES, Melania Johnson Attending Clinician Unavailable BRYON METCALF Attending Clinician Unavailable SRIDHAR RAYO Attending Clinician Unavailable Noel CLAROS, Caterina Attending Clinician Sridhar Rayo MD Attending Clinician CATERINA COHEN Attending Clinician Unavailable ROHAN FARRELL Attending Clinician Unavailable Christina HOGAN, Janina Fan Attending Clinician Paul Leigh DO Attending Clinician Santino Holm MD Attending Clinician Rohan Farrell MD Attending Clinician Doanto FRIAS, Rayo White Attending Clinician Dustin FRIAS, Fahad Thorne Attending Clinician Mohini Galindo Attending Clinician RAAD SIEGEL Attending Clinician Unavailable Raad Siegel MD Attending Clinician ANDREW HERRERA Attending Clinician Unavailable Lakeisha Nelson Attending Clinician Unavailable Andrew Herrera MD Attending Clinician Jessica Roach PA-C Attending Clinician JESSICA ROACH Attending Clinician Unavailable Howie HENDRICKS MD, John G Attending Clinician RASHAD ACUNA III Attending Clinician Unavailable Brent Meier DO Attending Clinician Dorota FRIAS, Tarnicci Attending Clinician David Naik Attending Clinician DAVID LEMON Attending Clinician Unavailable Josue Shaikh MD Attending Clinician Marisel Welch DO Attending Clinician MARISEL WELCH Attending Clinician Unavailable LEONARDO POTTS Attending Clinician Unavailable Lab, Adc Fam Pob I Attending Clinician Unavailable Erik BRIONES, Yousuf Attending Clinician Unavailable ABE MARTIN Attending Clinician Unavailable David BRIONES, Judith Fan Attending Clinician Unavailable Alisha PAC, K Latia Attending Clinician SCOOTER MCDONALD Attending Clinician Unavailable Vinny FRIAS, Scooter Zapata Attending Clinician Adam BRIONES, Dennis Yang Attending Clinician Unavailable RAGHAVENDRA URBINA Attending Clinician Unavailable PRADEEP MONTANEZ Attending Clinician Unavailable Provider, Ang Urgent [facility] Attending Clinician Unavailable Jason CLAROS, Anni Yang Attending Clinician RASHAD TINEO Attending Clinician Unavailable Yves East CRNA Attending Clinician Almaz Mclain MD, Juarez Attending Clinician Barb FRIAS, Doreen Attending Clinician Naresh FRIAS, Nakul Attending Clinician [phone] NATANAEL TOLENTINO Attending Clinician Unavailable Yamileth FRIAS, Natanael Schaefer Attending Clinician Nurse, Adc Pob Immunization Attending Clinician Unavailable Alexandro FRIAS, Fernanda Reza Attending Clinician Ward FRIAS, Ihsan Henderson Attending Clinician [phone] Diane Lepe RN Attending Clinician Unavailable GODWIN CANALES Attending Clinician Unavailable Godwin Canales DO Attending Clinician Radiology Attending Clinician Unavailable RADIOLOGY Attending Clinician Unavailable Oswald CLAROS, Quinten Tai Attending Clinician FATMATA ADAMS Attending Clinician Unavailable Rosalie FRIAS, Shari Quintero Attending Clinician [phone] Yeny Jacobs Attending Clinician Jeremi FRIAS, Norm Attending Clinician Outpt-Luana, Pacemaker/Icd Attending Clinician Unavailable Jina FRIAS, Luis Fernando Florian Attending Clinician Ashwini CORTÉS, Renetta Evans Attending Clinician Unavailable Shani FRIAS, Jesusita Schmidt Attending Clinician [phone] Luana, Remote Device Check At Home - Attending Clinician Unava ilable Evelin RN MENTAL HEALTH, Dodie R Attending Clinician Nurse, [facility] Urgent Care Attending Clinician Unavailable QUINTEN AKERS Attending Clinician Unavailable Lakia BRIONES, Karen Schaefer Attending Clinician Unavailable BRENNAN GAINES Attending Clinician Unavailable [facility] Attending Clinician Unavailable Fellow, Pulmonary Attending Clinician Unavailable Rose BRIONES, Genesis Yang Attending Clinician Unavailable Bibiana Gregory MD Attending Clinician Raghavendra Urbina MD Attending Clinician BIBIANA GREGORY Attending Clinician Unavailable BIBIANA GREGORY Attending Clinician Unavailable Moi Meier MD Attending Clinician [phone] Carrie Gibbs RN Attending Clinician Unavailable Andrei Hall MD Attending Clinician Nurse, [facility] General Surgery Attending Clinician Unavailable UNKNOWN, ATTENDING Attending Clinician Unavailable Outpatient, Pm/Icd Check Attending Clinician Unavailable Po, Acute Care Clinic Attending Clinician Unavailable CHIDI ESTRADA Attending Clinician Unavailable Emelina BRIONES, Dat Yang Attending Clinician Unavailable Julio Swanson MD Attending Clinician , [facility] Lab Attending Clinician Unavailable Shefali Garcia MD Attending Clinician Evan Rock Attending Clinician [phone] Emilie Cee Attending Clinician [facility] Admitting Clinician Unavailable FAHAD CHAN Admitting Clinician Unavailable FERNANDA MC Admitting Clinician Unavailable ANDREI HALL Admitting Clinician Unavailable SHAD العلي Admitting Clinician Unavailable Shad العلي MD Admitting Clinician SERA NAVARRETE Admitting Clinician Unavailable ANUPAMA ANNA Admitting Clinician Unavailable SHEFALI WESTFALL Admitting Clinician Unavailable JO ANN SOTO Admitting Clinician Unavailable SOPHIE BURTON Admitting Clinician Unavailable Arie FRIAS [facility] Admitting Clinician KAYLEE DUFFY Admitting Clinician Unavailable LAKEISHA NELSON Admitting Clinician Unavailable JOSELUIS OLIVEROS Admitting Clinician Unavailable Domo FRIAS, Joseluis Admitting Clinician KLEBER MARTE Admitting Clinician Unavailable SRIDHAR RAYO Admitting Clinician Unavailable Nila FRIAS, Sridhar Admitting Clinician CATERINA COHEN Admitting Clinician Unavailable ROHAN FARRELL Admitting Clinician Unavailable iNdia FRIAS, Rohan Admitting Clinician RAAD SIEGEL Admitting Clinician Unavailable DEYANIRA GARCIA Admitting Clinician Unavailable Dorota FRIAS, Rosalba Admitting Clinician Dustin FRIAS, Fahad Thorne Admitting Clinician Titus FRIAS, Mk Admitting Clinician Alexandro FRIAS, Fernanda Reza Admitting Clinician Isabel FRIAS, Andrei Salomon Admitting Clinician Kiki FRIAS, Julio Admitting Clinician Radha FRIAS, Shefali Tobias Admitting Clinician Payers Payer Name Policy Type Policy Number Effective Date Expiration Date S [facility] MEDICAID SSI PENDING 2022 PENDING 00:00:00 BCBS [facility] [id number] 2020 OF [facility] 00:00:00 [facility] [id number] 2018 PPO 00:00:00 Problems Condition Condition Condition Status Onset Resolution Last Treating Co mments Source Name Details Category Date Date Treatment Clinician Date Status Status Disease Active Univers post post 1-25 [place]y of placement [place] 00 Medical implantabl implantabl Br anch e loop e loop recorder recorder Presence Presence Disease Active Unive rs of of -25 ity of Watchman Watchman 00:00: [place] left left 00 Medical atrial atrial Branch appendage appendage closure closure device device Left Left Disease Active 2021-11 Univers facial facial 1-16 ity of numbness numbness 00:00: [place] 00 Medical Branch Numbness Numbness Disease Active 2021-11 Unive rs 1-16 ity of 00:00: Medical Branch Hyperglyce Hyperglyce Disease Active 2021-11 U nivers bentley bentley 0-31 ity of 00:00: [place] [facility] Chest pain Chest pain Disease Active U nivers at rest at rest 9-22 ity of 00:00: Medical Branch Paroxysmal Paroxysmal Disease Active U nivers atrial atrial 8-15 ity of fibrillati fibrillati [place] Hypoglycem Hypoglycem Disease Active U nivers ia ia 6-23 ity of 00:00: [place] [facility] Cerebrovas Cerebrovas Disease Recurre Univers cular cular nce 6-21 ity of accident accident 00:00: [place] (CVA) (CVA) 00 Medical determined determined Br anch by by clinical clinical assessment assessment Cellulitis Cellulitis Disease Active U nivers of right of right 4-03 ity of foot foot 00:00: [place] [facility] Coronary Coronary Disease Active Unive rs artery artery 3-27 ity of disease disease 00:00: [place] involving involving 00 Medi [place] Branch coronary coronary artery of artery of [place] heart with heart with angina angina pectoris [...] Univers CPAP CPAP 4-10 ity of 00:00: [place] [facility] Cholecysti Cholecysti Disease Active U nivers tis tis 4-09 ity of 00:00: [place] [facility] Personal Personal Disease Active Overview: Un lesly history of history of 3-10 Formattin ity of colonic colonic 00:00: g of this [place] polyps polyps 00 note Medical might be Branch different from the original. Added automatic ally from request for surgery [id number] Neck mass Neck mass Disease Active Uni vers 1-25 ity of 00:00: [place] 00 Medical Branch Epilepsy Epilepsy Disease Active Unive rs 5-04 ity of 00:00: [place] [facility] Chronic Chronic Disease Active Univers [...] weakness weakness 4-13 ity of 00:00: [place] 00 Medical Branch Other Other Disease Active Univers hyperlipid hyperlipid 2-05 it y of emia emia 00:00: Medical Branch Chest pain Chest pain Disease Active U nivers 2-04 ity of 00:00: [place] [facility] Stroke Stroke Disease Active Univers 1-11 ity of 00:00: [place] 00 Medical Branch Obesity Obesity Disease Active Univers (BMI (BMI 1-09 ity of 30-39.9) 30-39.9) 00:00: [place] 00 Medical Branch CVA CVA Disease Active Univers (cerebral (cerebral 1-09 ity of vascular vascular 00:00: [place] accident) accident) 00 [facility] Branch TIA TIA Disease Active Univers (transient (transient 1-07 it y of ischemic ischemic 00:00: [place] attack) attack) 00 Medical Branch Screening Screening Disease Active Overview: Univers for for 8-13 Formattin ity of colorectal colorectal 00:00: g of this [place] cancer cancer 00 note Medical might be Branch different from the original. 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 [facility] LEG PAIN LEG PAIN Diagnosis Active 2015-10-01 Memoria Active 05-21 08:57:00 l 05/21/2015 00:00: Audi fong [address] Hypertensi Hypertens Problem Active 2015-08-24 Memoria ve sanchez 04-11 11:46:58 l disorder, disorder, 00:00: Herm james systemic systemic 00 arterial arterial (disorder) (disorder) Active 04/11/2015 Problem 08/24/2015 Data migrated from [employer] on 05/30/15.
Data migrated from [employer] on 05/30/15.
Data migrated from [employer] on 04/24/15. [facility] Hypothyroi Hypothyro Problem Active 2015-08-24 Memoria dism idism 04-11 11:46:58 l (disorder) (disorder) 00:00: He rmann Active 00 04/11/2015 Problem 08/24/2015 Data migrated from [employer] on 05/30/15.
Data migrated from [employer] on 05/30/15.
Data migrated from [employer] on 04/24/15. [facility] Final: Final: Problem 2015-08-24 Luis stewart Chronic Chronic 11:46:58 l Airway Airway [place] Obstructio Obstructio n, Not n, Not Elsewhere Elsewhere Classified Classified 5 [facility] Decreased Decreased Problem Resolve 2015-08-24 Memoria testostero testostero d 11:46:58 l ne level ne level Audi fong (finding) (finding) Resolved Problem 08/24/2015 [facility] [id number] Diagnosis Active 2015-08-21 Mem oria Active 13:25:00 l [facility] Rad Pacemaker Pacemaker Disease Resolve 2021-02-12 2021-02-12 Univers d 00:00:00 14:40:32 ity of [place] [facility] Chest pain Chest Problem Resolve 2015-08-24 2015-08-24 Memoria (finding) pain d 05-23 11:46:58 11:46:58 l (finding) 00:00: [place] Resolved 00 05/23/2015 Problem 08/24/2015 Data migrated from [employer] on 05/30/15. [facility] Standard Standard Problem Resolve 2015-08-24 2015-08-24 Memoria chest chest d 05-23 11:46:58 11:46:58 l X-ray X-ray 00:00: Rad abnormal abnormal 00 (finding) (finding) Resolved 05/23/2015 Problem 08/24/2015 Data migrated from [employer] on 05/30/15. [facility] History of Past Illness Condition Condition Condition Status Onset Resolution Last Treating Co mments Source Name Details Category Date Date Treatment Clinician Date Discharge Discharge Problem 2015-05-24 [facility] Diagnosis: 05-21 03:24:43 03:24:43 l Leg pain Leg pain 05:00: Audi n 05/21/2015 00 05/24/2015 [facility] Discharge Discharge Problem 2015-05-24 2015-05-24 Memoria Diagnosis: Diagnosis: - 03:24:43 03:24:43 l Chest pain Chest pain 05:00: He rmjames 00 5 05/24/2015 [facility] Allergies, Adverse Reactions, Alerts Allergy Allergy Status Severity Reaction(s) Onset Inactive Treating Comm ents Source Name Type Date Date Clinician morphine DA Active U UNKNOWN 2020-11 [facility] 12-21 Clear 00:00: Light 00 [facility] MORPHINE DRUG Active SOB Univers [...] tobacco Passive smoker Un iversity of use [place] [facility] History [facility] University o f Alcohol Frequency [place] edical Branch History SDMS University o f Alcohol Std Drinks [place] [facility] History [facility] University o f Alcohol Binge [place] [facility] Exposure to 2023-01-07 2023-01-17 Not sure University of SARS-CoV-2 (event) 00:00:00 22:31:00 [facility] Branch Alcohol intake 2023-01-17 2023-01-17 Current University of 00:00:00 00:00:00 non-drinker of [facility] alcohol Branch (finding) History SDMS 2022-10-08 2022-10-08 4 University o f Financial 00:00:00 00:00:00 [facility] Branch History [facility] Food 2022-10-08 2022-10-08 1 Univers ity of Worry 00:00:00 00:00:00 [place] [facility] History [facility] Food 2022-10-08 2022-10-08 1 Univers ity of Scarcity 00:00:00 00:00:00 [place] [facility] History SDOH 2022-10-08 2022-10-08 2 University o f Transport Med 00:00:00 00:00:00 [place] [facility] History SDOH 2022-10-08 2022-10-08 2 University o f Transport Non-Med 00:00:00 [facility]00[facility]00 [facility] Cigarettes smoked 2022-10-08 2022-10-08 Univers ity of current (pack per 00:00:00 00:00:00 [facility] day) - Reported Branch Cigarette 2022-10-08 2022-10-08 University of pack-years 00:00:00 00:00:00 [facility] Tobacco use and 2022-10-08 2022-10-08 Smokeless Universit y of exposure 00:00:00 00:00:00 tobacco non-user [facility] dical Branch Tobacco Comment 2022-06-12 2022-06-12 Quit 2015 Universit y of 00:00:00 00:00:00 /smoked for [facility] about 18 yrs Branch Alcohol Comment 2021-08-19 2021-08-19 quit 30 yearsa Unive rsity of 00:00:00 00:00:00 ago [facility] Education 2021-05-05 2021-05-05 11 University 00:00:00 00:00:00 [facility] Sex [birth year] At [birth year] Universit y of 00:00:00 00:00:00 [facility] Smoking Status Start Date Stop Date Source Ex-smoker 2022-10-08 00:00:00 2022-10-08 00:00:00 [facility] [place] of [facility] Social History [facility] Medications Ordered Filled Start Stop Current Ordering Indication Dosage Frequency Signature Comments Components Source Medication Medication Date Date Medication? Clinician (SIG) Name Name methocarbam 2022- No 1000mg 1,000 mg, Univers oL 01-13 Intravenou ity of (ROBAXIN) 22:00: 21:38 s, ONCE, 1 [place] injection 00 :00 dose, On Medica l 1,000 mg e Branch 01/13/23 at 1600, DELFIN ketorolac 2022- No 15mg 15 mg, Unive rs (TORADOL) 01-13 Slow IV ity of injection 21:15: 20:31 Push, [place] 15 mg 00 :00 ONCE, 1 Medical dose, On Branch [facility] 01/13/23 at 1515, DELFIN NaCl 0.9% 2022- No 500mL at 999 Univ ers (NS) bolus 01-13 mL/hr, 500 it y of infusion 19:15: 20:32 mL, IV [place] 500 mL 00 :00 Infusion, Medical ONCE, 1 Branch dose, On [facility] 01/13/23 at 1315, STAT insulin NPH Yes [id number] 17U inject 17 Univers and regular 2-14 Units ity of human 70-30 00:00: under the [place] 100 unit/mL 00 skin every Me dical (70-30) morning Branch injection and evening. clotrimazol Yes [id number] Apply to Univers e 1 % 2-14 area(s) 2 ity of topical 00:00: (two) [place] cream 00 times Medical daily. For Branch 4 weeks. insulin NPH Yes [id number] 17U inject 17 Univers and regular 2-14 Units ity of human 70-30 00:00: under the [place] 100 unit/mL 00 skin every Me dical (70-30) morning Branch injection and evening. clotrimazol 2023-0 Yes [id number] Apply to Univers e 1 % 2-14 area(s) 2 ity of topical 00:00: (two) [place] cream 00 times Medical daily. For Branch 4 weeks. insulin NPH 2022-0 Yes [id number] 17U inject 17 Univers and regular 2-14 Units ity of human 70-30 00:00: under the [place] 100 unit/mL 00 skin every Me dical (70-30) morning Branch injection and evening. clotrimazol 3-0 Yes [id number] Apply to Univers e 1 % 2-14 area(s) 2 ity of topical 00:00: (two) [place] cream 00 times Medical daily. For Branch 4 weeks. insulin NPH 2022-0 Yes [id number] 17U inject 17 Univers and regular 2-14 Units ity of human 70-30 00:00: under the [place] 100 unit/mL 00 skin every Me dical (70-30) morning Branch injection and evening. clotrimazol 3-0 Yes [id number] Apply to Univers e 1 % 2-14 area(s) 2 ity of topical 00:00: (two) [place] cream 00 times Medical daily. For Branch 4 weeks. insulin NPH 2022-0 Yes [id number] 17U inject 17 Univers and regular 2-14 Units ity of human 70-30 00:00: under the [place] 100 unit/mL 00 skin every Me dical (70-30) morning Branch injection and evening. clotrimazol 3-0 Yes [id number] Apply to Univers e 1 % 2-14 area(s) 2 ity of topical 00:00: (two) [place] cream 00 times Medical daily. For Branch 4 weeks. insulin NPH 3-0 Yes [id number] 17U inject 17 Univers and regular 2-14 Units ity of human 70-30 00:00: under the [place] 100 unit/mL 00 skin every Me dical (70-30) morning Branch injection and evening. clotrimazol 2023-0 Yes [id number] Apply to Univers e 1 % 2-14 area(s) 2 ity of topical 00:00: (two) [place] cream 00 times Medical daily. For Branch 4 weeks. enoxaparin 2022-0 Yes 40mg 40 mg, Unive rs (LOVENOX) 2-08 Subcutaneo ity of injection 15:00: [place] 00 First dose Medical on Thu Branch 12/31/22 at 0900, Until Discontinu ed, Routine metoprolol 2022-0 Yes 25mg 25 mg, Unive rs succinate 2-08 Oral, ity of XL (TOPROL 15:00: DAILY, [place] XL) tablet 00 First dose Med ical 25 mg on Thu Branch 12/31/22 at 0900, Until Discontinu ed, Routine KCL 2022-0 Yes 20meq 20 mEq, Univers (KLOR-CON 2- Oral, ity of M20) tablet 15:00: [place]ILY, [place] 20 mEq 00 First dose Medical on Thu Branch 12/31/22 at 0900, Until Discontinu ed, Routine insulin NPH 0 Yes 17U 17 Units, U nivers and regular 2-08 Subcutaneo it y of human 70-30 15:00: us, [place] (70-30 00 QAM+PM, Medical U-100 First dose Branch INSULIN) on Thu 100 unit/mL 12/31/22 at (70-30) 0900, injection Until 17 Units Discontinu ed, Routine clopidogreL 2022-0 Yes 75mg 75 mg, Univ ers (PLAVIX) 75 2-08 Oral, ity of mg tablet 15:00: DAILY, [place] 75 mg 00 First dose Medical on Thu Branch 12/31/22 at 0900, Until Discontinu ed, Routine cetirizine 0 Yes 10mg 10 mg, Unive rs (ZYRTEC) 2-08 Oral, ity of tablet 10 15:00: DAILY, [place] mg 00 First dose Medical on Thu Branch 12/31/22 at 0900, Until Discontinu ed, Routine aspirin 2022-0 Yes 81mg 81 mg, Univers chewable 2-08 Oral, ity of tablet 81 15:00: DAILY, [place] mg 00 First dose Medical on Thu Branch 12/31/22 at 0900, Until Discontinu ed, Routine allopurinoL 2022-0 Yes 100mg 100 mg, Un lesly (ZYLOPRIM) 2-08 Oral, ity of tablet 100 15:00: DAILY, [place] mg 00 First dose Medical on Thu Branch 12/31/22 at 0900, Until Discontinu ed, Routine acetaminoph Yes 1 tablet [place] en 325 mg 2-08 as needed ity o f tablet 14:04: [address] acetaminoph 0 Yes 1 tablet [facility] en 325 mg 2-08 as needed ity o f tablet 14:04: [address] acetaminoph 0 Yes 1 tablet [facility] en 325 mg 2-08 as needed ity o f tablet 14:04: [address] acetaminoph 0 Yes 1 tablet [facility] en 325 mg 2-08 as needed ity o f tablet 14:04: [address] acetaminoph 0 Yes 1 tablet [facility] en 325 mg 2-08 as needed ity o f tablet 14:04: [address] acetaminoph 0 Yes 1 tablet Un [facility] en 325 mg 2-08 as needed ity o f tablet 14:04: [address] acetaminoph 0 Yes 1 tablet Un [facility] en 325 mg 2-08 as needed ity o f tablet 14:04: [address] acetaminoph Yes 1 tablet Un [facility] en 325 mg 2-08 as needed ity o f tablet 14:04: [address] ipratropium Yes .5mg 0.5 mg, Uni vers (ATROVENT) 2-08 Inhalation ity of 0.02 % 14:00: , QID, [place] nebulizer 00 First dose Medi johnathon solution on Thu 0.5 mg 12/31/22 at 0800, Until Discontinu ed levothyroxi Yes 150ug 150 mcg, U nivers ne 2-08 Oral, ity of (SYNTHROID) 12:00: QAM-0600, [place] tablet 150 00 First dose Med ical mcg on Thu Branch 12/31/22 at 0600, Until Discontinu ed, Routine Sliding Yes Subcutaneo Univ ers Scale 2-08 us, TID ity of Insulin - 06:30: MEALS+HS, [place] Lispro 00 First dose Medical (HumaLOG) + (after Branch Fsbg last Testing modificati on) on Thu12/31/22 at 0030, Until Discontinu ed, Routine insulin 2022-0 202- No 10U 10 Units, Univ ers lispro 2-08 02-08 Subcutaneo ity of (human) 05:45: 04:55 us, ONCE, Terrance salomon (HumaLOG 00 :00 1 dose, On Medic al U-100) Thu12/30/22 Branch injection at 2345, 10 Units Routine famotidine Yes 20mg 20 mg, Unive rs (PEPCID AC) 2-08 Oral, BID, it y of tablet 20 04:30: First dose [place] mg 00 on [facility] 12/30/22 at Branch 2230, Until Discontinu ed, Routine atorvastati Yes 80mg 80 mg, Univ ers n (LIPITOR) 2-08 Oral, QHS, it y of tablet 80 04:30: First dose [place] mg 00 on [facility] 12/30/22 at Branch 223, Until Discontinu ed, Routine glucagon Yes 1mg 1 mg, Univers (GLUCAGEN 208 Intramuscu ity of DIAGNOSTIC 04:20: lar, PRN, [place] KIT) 55 Starting Medical injection 1 on Thu [facility] 12/30/22 at 2220, Until Discontinu ed, DELFIN, Blood Glucose < or = 70 mg/dL and patient is NPO, unable to swallow or has mental changes. dextrose 50 0 Yes 25mL 25 mL, Univ ers % in water 208 Slow IV ity of (D50W) 04:20: Push, PRN, [place] injection 55 Starting Medica l 25 mL on [facility] 12/30/22 at 2220, Until Discontinu ed, DELFIN, Blood Glucose < or = 70 mg/dL and patient is NPO, unable to swallow or has mental status changes. ondansetron Yes 4mg 4 mg, Slow Univers (ZOFRAN 2-08 IV Push, ity of (PF)) 04:20: Q6HPRN, [place] injection 4 49 Starting Medi johnathon mg on [facility] 12/30/22 at 2220, Until Discontinu ed, Routine, Nausea and Vomiting (N/V) acetaminoph Yes 650mg 650 mg, Un lesly en 12-31 Oral, ity of (TYLENOL) 04:20: Q6HPRN, [place] tablet 650 39 Starting Medic al mg on Thu12/30/22 at 2220, Until Discontinu ed, Routine, Pain (scale 1-3), Temp > 38 C nitroglycer Yes .4mg 0.4 mg, Uni vers in 12-31 Sublingual ity of (NITROSTAT) 04:19: , Q5MIN [place] sublingual 12 PRN, Medical tablet 0.4 Starting Branc h mg on Thu12/30/22 at 2219, Until Discontinu ed, Routine, Chest pain cefTRIAXone Yes 1000mg 1,000 mg, Univers (ROCEPHIN) 12-31 Slow IV ity of injection 04:00: Push, Q24H [place] 1,000 mg 00 ABX, First Medic al dose on Branch Thu12/30/22 at 2200, Until Discontinu ed, DELFIN<br&gt ;Reason for Anti-Infec tive: Empiric Therapy for Suspected Infection< br>Empiric Therapy Site: Respirator y
Durat ion of therapy: 72 hours azithromyci 2022- Yes 500mg 500 mg, IV Univers n 12-31 Piggyback, ity of (ZITHROMAX) 04:00: 03:59 Q24H ABX, [place] 500 mg in 00 :00 3 doses, Medica l NaCl 0.9% First dose Bran ch (NS) 250 mL on Thu VIAL-MATE 12/30/22 at IV 2200, Last piggyback dose on [place] 01/01/23 at 2200, Administer over 60 Minutes, 250 mL
Reas on for Anti-Infec tive: Empiric Therapy for Suspected Infection< br>Empiric Therapy Site: Respirator y
Durat ion of therapy: 72 hours insulin NPH 2022- No .1U/kg 11 Units Univers (HUMULIN N) 12-31- (rounded ity of injection 03:00: 03:19 from 10.75 [place] 11 Units 00 :00 Units = Medical 0.1 Branch Units/kg ?107.5 kg), Subcutaneo us, ONCE, 1 dose, On Thu12/30/22 at 2100, DELFIN NaCl 0.9% 2022- No 30mL/kg at 999 Un lesly (NS) bolus 2-08 02-08 mL/hr, ity of infusion 03:00: 15:09 3,225 mL [place] 3,225 mL 00 :00 (30 mL/kg Medica l ?107.5 Branch kg), IV Piggyback, ONCE, 1 dose, On Thu12/30/22 at 2100, STAT flash Yes [id number] 1{each} inject 1 [facility] glucose 2-08 Each under ity of sensor 00:00: the skin [place] (FREESTYLE 00 every 2 Medica l CHON 2 (two) Branch SENSOR) Kit weeks. acidophilus Yes [id number] 1g Take 1 U nivers 100 million 2-08 tablet by ity of cell tablet 00:00: mouth in [place] 00 the Medical morning Branch and 1 tablet in the evening. flash Yes [id number] 1{each} inject 1 [facility] glucose 2-08 Each under ity of sensor 00:00: the skin [place] (FREESTYLE 00 every 2 Medica l CHON 2 (two) Branch SENSOR) Kit weeks. acidophilus Yes [id number] 1g Take 1 U nivers 100 million 2-08 tablet by ity of cell tablet 00:00: mouth in [place] 00 the Medical morning Branch and 1 tablet in the evening. flash 0 Yes [id number] 1{each} inject 1 [facility] glucose 2-08 Each under ity of sensor 00:00: the skin [place] (FREESTYLE 00 every 2 Medica l CHON 2 (two) Branch SENSOR) Kit weeks. acidophilus 0 Yes [id number] 1g Take 1 U nivers 100 million 2-08 tablet by ity of cell tablet 00:00: mouth in [place] 00 the Medical morning Branch and 1 tablet in the evening. flash 0 Yes [id number] 1{each} inject 1 [facility] glucose 2-08 Each under ity of sensor 00:00: the skin [place] (FREESTYLE 00 every 2 Medica l CHON 2 (two) Branch SENSOR) Kit weeks. acidophilus Yes [id number] 1g Take 1 U nivers 100 million 2-08 tablet by ity of cell tablet 00:00: mouth in [place] 00 the Medical morning Branch and 1 tablet in the evening. flash Yes [id number] 1{each} inject 1 [facility] glucose 2-08 Each under ity of sensor 00:00: the skin [place] (FREESTYLE 00 every 2 Medica l CHON 2 (two) Branch SENSOR) Kit weeks. acidophilus Yes [id number] 1g Take 1 U nivers 100 million 2-08 tablet by ity of cell tablet 00:00: mouth in [place] 00 the Medical morning Branch and 1 tablet in the evening. flash 0 Yes [id number] 1{each} inject 1 [facility] glucose 2-08 Each under ity of sensor 00:00: the skin [place] (FREESTYLE 00 every 2 Medica l CHON 2 (two) Branch SENSOR) Kit weeks. acidophilus Yes [id number] 1g Take 1 U nivers 100 million 2-08 tablet by ity of cell tablet 00:00: mouth in [place] 00 the Medical morning Branch and 1 tablet in the evening. flash 0 Yes [id number] 1{each} inject 1 [facility] glucose 2-08 Each under ity of sensor 00:00: the skin [place] (FREESTYLE 00 every 2 Medica l CHON 2 (two) Branch SENSOR) Kit weeks. acidophilus 0 Yes [id number] 1g Take 1 U nivers 100 million 2-08 tablet by ity of cell tablet 00:00: mouth in [place] 00 the Medical morning Branch and 1 tablet in the evening. flash 0 Yes [id number] 1{each} inject 1 [facility] glucose 2-08 Each under ity of sensor 00:00: the skin [place] (FREESTYLE 00 every 2 Medica l CHON 2 (two) Branch SENSOR) Kit weeks. acidophilus 0 Yes [id number] 1g Take 1 U nivers 100 million 2-08 tablet by ity of cell tablet 00:00: mouth in [place] 00 the Medical morning Branch and 1 tablet in the evening. levoFLOXaci 2022-0 2022- Yes [id number] 750mg Take 1 Univers n 750 mg 12-31 tablet by ity o f tablet 00:00: 05:59 mouth [place] 00 :00 every 24 Medical (twenty- [place] ur) hours for 5 days. levoFLOXaci 2022- Yes [id number] 750mg Take 1 Univers n 750 mg 12-31 tablet by ity o f tablet 00:00: 05:59 mouth [place] 00 :00 every 24 Medical (twenty- [place] ur) hours for 5 days. acetaminoph Yes 1 tablet [facility] en 325 mg 12-30 as needed ity o f tablet 23:29: [place] 04 Medical Branch cetirizine 0 Yes [id number] 10mg Take 1 U nivers (ALLERGY 1-26 tablet by ity of RELIEF, 00:00: mouth in [place] CETIRIZINE, the Medical ) 10 mg morning. Branch tablet KCL 20 mEq Yes [id number] 20meq Take 1 Univers tablet 1-26 tablet by ity of 00:00: mouth in [place] 00 the Medical morning. Branch levothyroxi Yes [id number] 150ug Take 1 Univers ne 150 mcg 1-26 tablet by ity of tablet 00:00: mouth [place] 00 every Medical morning. Branch furosemide 0 Yes [id number] 40mg Take 2 Univers 20 mg 1-26 tablets by ity of tablet 00:00: mouth in [place] 00 the Medical morning. Branch metoprolol Yes [id number] 25mg Take 0.5 Univers succinate 1-26 tablets by ity of XL 50 mg 24 00:00: mouth in [place] hr tablet 00 the Medical morning. Branch cetirizine Yes [id number] 10mg Take 1 U nivers (ALLERGY 1-26 tablet by ity of RELIEF, 00:00: mouth in [place] CETIRIZINE, the Medical ) 10 mg morning. Branch tablet KCL 20 mEq 0 Yes [id number] 20meq Take 1 Univers tablet 1-26 tablet by ity of 00:00: mouth in [place] 00 the Medical morning. Branch levothyroxi 0 Yes [id number] 150ug Take 1 Univers ne 150 mcg 1-26 tablet by ity of tablet 00:00: mouth [place] 00 every Medical morning. Branch furosemide 2022-0 Yes [id number] 40mg Take 2 Univers 20 mg 1-26 tablets by ity of tablet 00:00: mouth in [place] 00 the Medical morning. Branch metoprolol 2022-0 Yes [id number] 25mg Take 0.5 Univers succinate 1-26 tablets by ity of XL 50 mg 24 00:00: mouth in [place] hr tablet 00 the Medical morning. Branch cetirizine 2022-0 Yes [id number] 10mg Take 1 U nivers (ALLERGY 1-26 tablet by ity of RELIEF, 00:00: mouth in [place] CETIRIZINE, the [facility] ) 10 mg morning. Branch tablet KCL 20 mEq 0 Yes [id number] 20meq Take 1 Univers tablet 1-26 tablet by ity of 00:00: mouth in [place] the Medical morning. Branch levothyroxi 2022-0 Yes [id number] 150ug Take 1 Univers ne 150 mcg 1-26 tablet by ity of tablet 00:00: mouth [place] every Medical morning. Branch furosemide 2022-0 Yes [id number] 40mg Take 2 Univers 20 mg 1-26 tablets by ity of tablet 00:00: mouth in [place] the Medical morning. Branch metoprolol 2022-0 Yes [id number] 25mg Take 0.5 Univers succinate 1-26 tablets by ity of XL 50 mg 24 00:00: mouth in [place] hr tablet 00 the Medical morning. Branch cetirizine 2022-0 Yes [id number] 10mg Take 1 U nivers (ALLERGY 1-26 tablet by ity of RELIEF, 00:00: mouth in [place] CETIRIZINE, the [facility] ) 10 mg morning. Branch tablet KCL 20 mEq 2022-0 Yes [id number] 20meq Take 1 Univers tablet 1-26 tablet by ity of 00:00: mouth in [place] the Medical morning. Branch levothyroxi 2022-0 Yes [id number] 150ug Take 1 Univers ne 150 mcg 1-26 tablet by ity of tablet 00:00: mouth [place] [id number] every Medical morning. Branch furosemide 2022-0 Yes [id number] 40mg Take 2 Univers 20 mg 1-26 tablets by ity of tablet 00:00: mouth in [place] the Medical morning. Branch metoprolol 2022-0 Yes [id number] 25mg Take 0.5 Univers succinate 1-26 tablets by ity of XL 50 mg 24 00:00: mouth in [place] hr tablet 00 the Medical morning. Branch cetirizine 2022-0 Yes [id number] 10mg Take 1 U nivers (ALLERGY 1-26 tablet by ity of RELIEF, 00:00: mouth in [place] CETIRIZINE, 00 the Medical ) 10 mg morning. Branch tablet KCL 20 mEq 2022-0 Yes [id number] 20meq Take 1 Univers tablet 1-26 tablet by ity of 00:00: mouth in [place] 00 the Medical morning. Branch levothyroxi 2022-0 Yes [id number] 150ug Take 1 Univers ne 150 mcg 1-26 tablet by ity of tablet 00:00: mouth [place] 00 every Medical morning. Branch furosemide 2022-0 Yes [id number] 40mg Take 2 Univers 20 mg 1-26 tablets by ity of tablet 00:00: mouth in [place] 00 the Medical morning. Branch metoprolol 2022-0 Yes [id number] 25mg Take 0.5 Univers succinate 1-26 tablets by ity of XL 50 mg 24 00:00: mouth in [place] hr tablet 00 the Medical morning. Branch cetirizine 2022-0 Yes [id number] 10mg Take 1 U nivers (ALLERGY 1-26 tablet by ity of RELIEF, 00:00: mouth in [place] CETIRIZINE, the Medical ) 10 mg morning. Branch tablet KCL 20 mEq 2022-0 Yes [id number] 20meq Take 1 Univers tablet 1-26 tablet by ity of 00:00: mouth in [place] 00 the Medical morning. Branch levothyroxi 2022-0 Yes [id number] 150ug Take 1 Univers ne 150 mcg 1-26 tablet by ity of tablet 00:00: mouth [place] 00 every Medical morning. Branch furosemide 2022-0 Yes [id number] 40mg Take 2 Univers 20 mg 1-26 tablets by ity of tablet 00:00: mouth in [place] 00 the Medical morning. Branch metoprolol 2022-0 Yes [id number] 25mg Take 0.5 Univers succinate 1-26 tablets by ity of XL 50 mg 24 00:00: mouth in [place] hr tablet 00 the Medical morning. Branch cetirizine 2022-0 Yes [id number] 10mg Take 1 U nivers (ALLERGY 1-26 tablet by ity of RELIEF, 00:00: mouth in [place] [facility] ) 10 mg morning. Branch tablet KCL 20 mEq 2022-0 Yes [id number] 20meq Take 1 Univers tablet 1-26 tablet by ity of 00:00: mouth in [place] the Medical morning. Branch levothyroxi 2022-0 Yes [id number] 150ug Take 1 Univers ne 150 mcg 1-26 tablet by ity of tablet 00:00: mouth [place] every Medical morning. Branch furosemide 2022-0 Yes [id number] 40mg Take 2 Univers 20 mg 1-26 tablets by ity of tablet 00:00: mouth in [place] the Medical morning. Branch metoprolol 2022-0 Yes [id number] 25mg Take 0.5 Univers succinate 1-26 tablets by ity of XL 50 mg 24 00:00: mouth in [place] hr tablet 00 the Medical morning. Branch cetirizine 2022-0 Yes [id number] 10mg Take 1 U nivers (ALLERGY 1-26 tablet by ity of RELIEF, 00:00: mouth in [place] [facility] ) 10 mg morning. Branch tablet KCL 20 mEq 2022-0 Yes [id number] 20meq Take 1 Univers tablet 1-26 tablet by ity of 00:00: mouth in [place] the Medical morning. Branch levothyroxi 2022-0 Yes [id number] 150ug Take 1 Univers ne 150 mcg 1-26 tablet by ity of tablet 00:00: mouth [place] every Medical morning. Branch furosemide 2022-0 Yes [id number] 40mg Take 2 Univers 20 mg 1-26 tablets by ity of tablet 00:00: mouth in [place] the Medical morning. Branch metoprolol 2022-0 Yes [id number] 25mg Take 0.5 Univers succinate 1-26 tablets by ity of XL 50 mg 24 00:00: mouth in [place] hr tablet 00 the Medical morning. Branch cetirizine 2022-0 Yes [id number] 10mg Take 1 U nivers (ALLERGY 1-26 tablet by ity of RELIEF, 00:00: mouth in [place] CETIRIZIAR, the [facility] ) 10 mg morning. Branch tablet KCL 20 mEq 2022-0 Yes [id number] 20meq Take 1 Univers tablet 1-26 tablet by ity of 00:00: mouth in [place] the Medical morning. Branch levothyroxi 2022-0 Yes [id number] 150ug Take 1 Univers ne 150 mcg 1-26 tablet by ity of tablet 00:00: mouth [place] every Medical morning. Branch furosemide 2022-0 Yes [id number] 40mg Take 2 Univers 20 mg 1-26 tablets by ity of tablet 00:00: mouth in [place] the Medical morning. Branch metoprolol 2022-0 Yes [id number] 25mg Take 0.5 Univers succinate 1-26 tablets by ity of XL 50 mg 24 00:00: mouth in [place] hr tablet 00 the Medical morning. Branch cetirizine 2022-0 Yes [id number] 10mg Take 1 U nivers (ALLERGY 1-26 tablet by ity of RELIEF, 00:00: mouth in [place] CETIRIZINE, the [facility] ) 10 mg morning. Branch tablet KCL 20 mEq 2022-0 Yes [id number] 20meq Take 1 Univers tablet 1-26 tablet by ity of 00:00: mouth in [place] the Medical morning. Branch levothyroxi 2022-0 Yes [id number] 150ug Take 1 Univers ne 150 mcg 1-26 tablet by ity of tablet 00:00: mouth [place] every Medical morning. Branch furosemide 2022-0 Yes [id number] 40mg Take 2 Univers 20 mg 1-26 tablets by ity of tablet 00:00: mouth in [place] the Medical morning. Branch metoprolol 2022-0 Yes [id number] 25mg Take 0.5 Univers succinate 1-26 tablets by ity of XL 50 mg 24 00:00: mouth in [place] hr tablet 00 the Medical morning. Branch cetirizine 2022-0 Yes [id number] 10mg Take 1 U nivers (ALLERGY 1-26 tablet by ity of RELIEF, 00:00: mouth in [place] CETIRIZINE, the [facility] ) 10 mg morning. Branch tablet KCL 20 mEq 2022-0 Yes [id number] 20meq Take 1 Univers tablet 1-26 tablet by ity of 00:00: mouth in [place] the Medical morning. Branch levothyroxi 2022-0 Yes [id number] 150ug Take 1 Univers ne 150 mcg 1-26 tablet by ity of tablet 00:00: mouth [place] 00 every Medical morning. Branch furosemide 2022-0 Yes [id number] 40mg Take 2 Univers 20 mg 1-26 tablets by ity of tablet 00:00: mouth in [place] 00 the Medical morning. Branch metoprolol 2022-0 Yes [id number] 25mg Take 0.5 Univers succinate 1-26 tablets by ity of XL 50 mg 24 00:00: mouth in [place] hr tablet 00 the Medical morning. Branch cetirizine 2022-0 Yes [id number] 10mg Take 1 U nivers (ALLERGY 1-26 tablet by ity of RELIEF, 00:00: mouth in [place] CETIRIZINE, the Medical ) 10 mg morning. Branch tablet KCL 20 mEq 2022-0 Yes [id number] 20meq Take 1 Univers tablet 1-26 tablet by ity of 00:00: mouth in [place] the Medical morning. Branch levothyroxi 2022-0 Yes [id number] 150ug Take 1 Univers ne 150 mcg 1-26 tablet by ity of tablet 00:00: mouth [place] every Medical morning. Branch furosemide 2022-0 Yes [id number] 40mg Take 2 Univers 20 mg 1-26 tablets by ity of tablet 00:00: mouth in [place] the Medical morning. Branch metoprolol 2022-0 Yes [id number] 25mg Take 0.5 Univers succinate 1-26 tablets by ity of XL 50 mg 24 00:00: mouth in [place] hr tablet 00 the Medical morning. Branch cetirizine 2022-0 Yes [id number] 10mg Take 1 U nivers (ALLERGY 1-26 tablet by ity of RELIEF, 00:00: mouth in [place] CETIRIZINE, 00 the Medical ) 10 mg morning. Branch tablet KCL 20 mEq 2022-0 Yes [id number] 20meq Take 1 Univers tablet 1-26 tablet by ity of 00:00: mouth in [place] 00 the Medical morning. Branch levothyroxi 2022-0 Yes [id number] 150ug Take 1 Univers ne 150 mcg 1-26 tablet by ity of tablet 00:00: mouth [place] 00 every Medical morning. Branch furosemide 2022-0 Yes [id number] 40mg Take 2 Univers 20 mg 1-26 tablets by ity of tablet 00:00: mouth in [place] 00 the Medical morning. Branch metoprolol 2022-0 Yes [id number] 25mg Take 0.5 Univers succinate 1-26 tablets by ity of XL 50 mg 24 00:00: mouth in [place] hr tablet 00 the Medical morning. Branch cetirizine 2022-0 Yes [id number] 10mg Take 1 U nivers (ALLERGY 1-26 tablet by ity of RELIEF, 00:00: mouth in [place] CETIRIZINE, 00 the [facility] ) 10 mg morning. Branch tablet KCL 20 mEq 0 Yes [id number] 20meq Take 1 Univers tablet 1-26 tablet by ity of 00:00: mouth in [place] the Medical morning. Branch levothyroxi 2022-0 Yes [id number] 150ug Take 1 Univers ne 150 mcg 1-26 tablet by ity of tablet 00:00: mouth [place] every Medical morning. Branch furosemide 2022-0 Yes [id number] 40mg Take 2 Univers 20 mg 1-26 tablets by ity of tablet 00:00: mouth in [place] the Medical morning. Branch metoprolol 2022-0 Yes [id number] 25mg Take 0.5 Univers succinate 1-26 tablets by ity of XL 50 mg 24 00:00: mouth in [place] hr tablet 00 the Medical morning. Branch cetirizine 2022-0 Yes [id number] 10mg Take 1 U nivers (ALLERGY 1-26 tablet by ity of RELIEF, 00:00: mouth in [place] CETIRIZINE, the [facility] ) 10 mg morning. Branch tablet KCL 20 mEq 2022-0 Yes [id number] 20meq Take 1 Univers tablet 1-26 tablet by ity of 00:00: mouth in [place] the Medical morning. Branch levothyroxi 2022-0 Yes [id number] 150ug Take 1 Univers ne 150 mcg 1-26 tablet by ity of tablet 00:00: mouth [place] 00 every Medical morning. Branch furosemide 2022-0 Yes [id number] 40mg Take 2 Univers 20 mg 1-26 tablets by ity of tablet 00:00: mouth in [place] 00 the Medical morning. Branch metoprolol 2022-0 Yes [id number] 25mg Take 0.5 Univers succinate 1-26 tablets by ity of XL 50 mg 24 00:00: mouth in [place] hr tablet 00 the Medical morning. Branch cetirizine 2022-0 Yes [id number] 10mg Take 1 U nivers (ALLERGY 1-26 tablet by ity of RELIEF, 00:00: mouth in [place] [facility] ) 10 mg morning. Branch tablet KCL 20 mEq 2022-0 Yes [id number] 20meq Take 1 Univers tablet 1-26 tablet by ity of 00:00: mouth in [place] the Medical morning. Branch levothyroxi 2022-0 Yes [id number] 150ug Take 1 Univers ne 150 mcg 1-26 tablet by ity of tablet 00:00: mouth [place] every Medical morning. Branch furosemide 2022-0 Yes [id number] 40mg Take 2 Univers 20 mg 1-26 tablets by ity of tablet 00:00: mouth in [place] the Medical morning. Branch metoprolol 2022-0 Yes [id number] 25mg Take 0.5 Univers succinate 1-26 tablets by ity of XL 50 mg 24 00:00: mouth in [place] hr tablet 00 the Medical morning. Branch cetirizine 2022-0 Yes [id number] 10mg Take 1 U nivers (ALLERGY 1-26 tablet by ity of RELIEF, 00:00: mouth in [place] [facility] the [facility] ) 10 mg morning. Branch tablet KCL 20 mEq 0 Yes [id number] 20meq Take 1 Univers tablet 1-26 tablet by ity of 00:00: mouth in [place] the Medical morning. Branch levothyroxi 2022-0 Yes [id number] 150ug Take 1 Univers ne 150 mcg 1-26 tablet by ity of tablet 00:00: mouth [place] every Medical morning. Branch furosemide 2022-0 Yes [id number] 40mg Take 2 Univers 20 mg 1-26 tablets by ity of tablet 00:00: mouth in [place] the Medical morning. Branch metoprolol 2022-0 Yes [id number] 25mg Take 0.5 Univers succinate 1-26 tablets by ity of XL 50 mg 24 00:00: mouth in [place] hr tablet 00 the Medical morning. Branch cetirizine 2022-0 Yes [id number] 10mg Take 1 U nivers (ALLERGY 1-26 tablet by ity of RELIEF, 00:00: mouth in [place] CETIRIZIAR, the Medical ) 10 mg morning. Branch tablet KCL 20 mEq 2022-0 Yes [id number] 20meq Take 1 Univers tablet 1-26 tablet by ity of 00:00: mouth in [place] the Medical morning. Branch levothyroxi 2022-0 Yes [id number] 150ug Take 1 Univers ne 150 mcg 1-26 tablet by ity of tablet 00:00: mouth [place] 00 every Medical morning. Branch furosemide 2022-0 Yes [id number] 40mg Take 2 Univers 20 mg 1-26 tablets by ity of tablet 00:00: mouth in [place] 00 the Medical morning. Branch metoprolol 2022-0 Yes [id number] 25mg Take 0.5 Univers succinate 1-26 tablets by ity of XL 50 mg 24 00:00: mouth in [place] hr tablet 00 the Medical morning. Branch cetirizine 2022-0 Yes [id number] 10mg Take 1 U nivers (ALLERGY 1-26 tablet by ity of RELIEF, 00:00: mouth in [place] CETIRIZIAR, the [facility] ) 10 mg morning. Branch tablet KCL 20 mEq 0 Yes [id number] 20meq Take 1 Univers tablet 1-26 tablet by ity of 00:00: mouth in [place] the Medical morning. Branch levothyroxi 2022-0 Yes [id number] 150ug Take 1 Univers ne 150 mcg 1-26 tablet by ity of tablet 00:00: mouth [place] every Medical morning. Branch furosemide 2022-0 Yes [id number] 40mg Take 2 Univers 20 mg 1-26 tablets by ity of tablet 00:00: mouth in [place] the Medical morning. Branch metoprolol 2022-0 Yes [id number] 25mg Take 0.5 Univers succinate 1-26 tablets by ity of XL 50 mg 24 00:00: mouth in [place] hr tablet 00 the Medical morning. Branch cetirizine 2022-0 Yes [id number] 10mg Take 1 U nivers (ALLERGY 1-26 tablet by ity of RELIEF, 00:00: mouth in [place] CETIRIZINE, the [facility] ) 10 mg morning. Branch tablet KCL 20 mEq 2022-0 Yes [id number] 20meq Take 1 Univers tablet 1-26 tablet by ity of 00:00: mouth in [place] the Medical morning. Branch levothyroxi 2023-0 Yes [id number] 150ug Take 1 Univers ne 150 mcg 1-26 tablet by ity of tablet 00:00: mouth [place] 00 every Medical morning. Branch furosemide 2022-0 Yes [id number] 40mg Take 2 Univers 20 mg 1-26 tablets by ity of tablet 00:00: mouth in [place] 00 the Medical morning. Branch metoprolol 0 Yes [id number] 25mg Take 0.5 Univers succinate 1-26 tablets by ity of XL 50 mg 24 00:00: mouth in [place] hr tablet 00 the Medical morning. Branch cetirizine 0 Yes [id number] 10mg Take 1 [facility] n[facility] (ALLERGY 1-26 tablet by ity of RELIEF, 00:00: mouth in [place] CETIRIZINE, 00 the Medical ) 10 mg morning. Branch tablet KCL 20 mEq 0 Yes [id number] 20meq Take 1 [facility] tablet 1-26 tablet by ity of 00:00: mouth in [place] 00 the Medical morning. Branch levothyroxi Yes [id number] 150ug Take 1 [facility] ne 150 mcg 1-26 tablet by ity of tablet 00:00: mouth [place] 00 every Medical morning. Branch furosemide 0 Yes [id number] 40mg Take 2 [facility] 20 mg 1-26 tablets by ity of tablet 00:00: mouth in [place] 00 the Medical morning. Branch metoprolol Yes [id number] 25mg Take 0.5 [facility] succinate 1-26 tablets by ity of XL 50 mg 24 00:00: mouth in [place] hr tablet 00 the Medical morning. Branch traMADoL 2022- No 50mg 50 mg, [facility] (ULTRAM) 12-16 Oral, ity of tablet 50 04:30: 04:10 ONCE, 1 [place] mg 00 :00 dose, On Medical Mon Branch 12/15/22 at 2230, Routine traMADoL 2022-0 Yes [id number] 50mg Take 1 [facility] (ULTRAM) 50 1-23 tablet by ity of mg tablet 00:00: mouth [place] 00 every 6 Medical (six) Branch hours as needed for Pain (scale 7-10). Indication s: acute pain traMADoL 2022-0 Yes [id number] 50mg Take 1 [facility] (ULTRAM) 50 1-23 tablet by ity of mg tablet 00:00: mouth [place] 00 every 6 Medical (six) Branch hours as needed for Pain (scale 7-10). Indication s: acute pain traMADoL 3-0 Yes [id number] 50mg Take 1 [facility] (ULTRAM) 50 1-23 tablet by ity of mg tablet 00:00: mouth [place] 00 every 6 Medical (six) Branch hours as needed for Pain (scale 7-10). Indication s: acute pain traMADoL 2022-0 Yes [id number] 50mg Take 1 [facility] (ULTRAM) 50 1-23 tablet by ity of mg tablet 00:00: mouth [place] 00 every 6 Medical (six) Branch hours as needed for Pain (scale 7-10). Indication s: acute pain traMADoL 2022-0 Yes [id number] 50mg Take 1 [facility] (ULTRAM) 50 1-23 tablet by ity of mg tablet 00:00: mouth [place] 00 every 6 Medical (six) Branch hours as needed for Pain (scale 7-10). Indication s: acute pain traMADoL 2022-0 Yes [id number] 50mg Take 1 [facility] (ULTRAM) 50 1-23 tablet by ity of mg tablet 00:00: mouth [place] 00 every 6 Medical (six) Branch hours as needed for Pain (scale 7-10). Indication s: acute pain traMADoL 2022-0 Yes [id number] 50mg Take 1 [facility] (ULTRAM) 50 1-23 tablet by ity of mg tablet 00:00: mouth [place] 00 every 6 Medical (six) Branch hours as needed for Pain (scale 7-10). Indication s: acute pain traMADoL 2022-0 Yes 4647 50mg Take 1 [facility] (ULTRAM) 50 1-23 tablet by ity of mg tablet 00:00: mouth [place] 00 every 6 Medical (six) Branch hours as needed for Pain (scale 7-10). Indication s: acute pain traMADoL 3-0 Yes 4647 50mg Take 1 [facility] (ULTRAM) 50 1-23 tablet by ity of mg tablet 00:00: mouth [place] 00 every 6 Medical (six) Branch hours as needed for Pain (scale 7-10). Indication s: acute pain traMADoL 3-0 Yes 4647 50mg Take 1 [facility] (ULTRAM) 50 1-23 tablet by ity of mg tablet 00:00: mouth [place] 00 every 6 Medical (six) Branch hours as needed for Pain (scale 7-10). Indication s: acute pain traMADoL 2022- No 4647 50mg Take 1 [facility] s (ULTRAM) 50 12-15 tablet by it y of mg tablet 00:00: 00:00 mouth [place] 00 :00 every 6 Medical (six) Branch hours as needed for Pain (scale 7-10). Indication s: acute pain methylpredn 2022- No 50mg 50 mg, Uni vers isolone sod 12-04 Intravenou i ty of succ 04:45: 04:54 s, ONCE, 1 [place] (SOLU-MEDRO 00 :00 dose, On Medi johnathon L) Thu Branch injection 12/03/22 at 50 mg 2245, DELFIN iopamidol 2022- No [id number] 100mL 100 mL, [facility] (ISOVUE 12-04 Intravenou ity o f 370-500 mL) 04:15: 04:15 s, ONCE, 1 [place] injection 00 :00 dose, On Medica l 100 mL Wed Branch 12/03/22 at 2215, Routine predniSONE 0 Yes [id number] 50mg Take 1 [facility] 50 mg 1-11 tablet by ity of tablet 00:00: mouth in [place] 00 the Medical morning. Branch predniSONE 2022-0 Yes [id number] 50mg Take 1 [facility] 50 mg 1-11 tablet by ity of tablet 00:00: mouth in [place] 00 the Medical morning. Branch predniSONE 2022-0 Yes [id number] 50mg Take 1 [facility] 50 mg 1-11 tablet by ity of tablet 00:00: mouth in [place] 00 the Medical morning. Branch predniSONE 2022-0 Yes [id number] 50mg Take 1 [facility] 50 mg 1-11 tablet by ity of tablet 00:00: mouth in [place] 00 the Medical morning. Branch predniSONE 2022-0 Yes [id number] 50mg Take 1 [facility] 50 mg 1-11 tablet by ity of tablet 00:00: mouth in [place] 00 the Medical morning. Branch predniSONE 2022-0 Yes [id number] 50mg Take 1 [facility] 50 mg 1-11 tablet by ity of tablet 00:00: mouth in [place] 00 the Medical morning. Branch predniSONE 2022-0 Yes [id number] 50mg Take 1 [facility] 50 mg 1-11 tablet by ity of tablet 00:00: mouth in [place] 00 the Medical morning. Branch predniSONE 3-0 Yes [id number] 50mg Take 1 [facility] 50 mg 1-11 tablet by ity of tablet 00:00: mouth in [place] 00 the Medical morning. Branch predniSONE 3-0 Yes [id number] 50mg Take 1 [facility] 50 mg 1-11 tablet by ity of tablet 00:00: mouth in [place] 00 the Medical morning. Branch predniSONE 2022-0 Yes [id number] 50mg Take 1 [facility] 50 mg 1-11 tablet by ity of tablet 00:00: mouth in [place] 00 the Medical morning. Branch predniSONE 2022-0 Yes [id number] 50mg Take 1 [facility] 50 mg 1-11 tablet by ity of tablet 00:00: mouth in [place] 00 the Medical morning. Branch predniSONE 2022-0 Yes [id number] 50mg Take 1 [facility] 50 mg 1-11 tablet by ity of tablet 00:00: mouth in [place] 00 the Medical morning. Branch predniSONE 2022-0 Yes [id number] 50mg Take 1 [facility] 50 mg 1-11 tablet by ity of tablet 00:00: mouth in [place] 00 the Medical morning. Branch predniSONE 2022-0 Yes [id number] 50mg Take 1 [facility] 50 mg 1-11 tablet by ity of tablet 00:00: mouth in [place] 00 the Medical morning. Branch predniSONE 2022-0 2022- No [id number] 50mg Take 1 [facility] 50 mg 1-11 02-08 tablet by ity of tablet 00:00: 00:00 mouth in [place] 00 :00 the Medical morning. [place] predniSONE 2022-0 2022- No 40mg 40 mg, [facility] ers (DELTASONE) 11-27- Oral, ity of tablet 40 03:45: 03:04 ONCE, 1 [place] mg 00 :00 dose, On Medical 11/26/22 Branch at 2145, DELFIN ipratropium 2022-2022- No 3mL 3 mL, Univ ers -albuteroL 11-27-05 Inhalation it y of (DUONEB) 01:00: 00:08 , ONCE, 1 [place] 0.5 mg-3 00 :00 dose, On Medical mg(2.5 mg 11/26/22 Bran ch base)/3 mL at 1900, nebulizer Routine solution 3 mL methylpredn 2022- No 125mg 125 mg, [facility] nivers isolone sod 11-27 Intravenou i ty of succ 00:00: 00:07 s, ONCE, 1 [place] (SOLU-MEDRO 00 :00 dose, On Medi johnathon L) 11/26/22 Branch injection at 1800, 125 mg DELFIN predniSONE 2022- Yes [id number] 40mg Take 2 [facility] 20 mg 11-26- tablets by ity of tablet 00:00: 05:59 mouth [place] 00 :00 every Medical morning Branch for 4 days. predniSONE 2022- Yes [id number] 40mg Take 2 [facility] 20 mg 11-26-09 tablets by ity of tablet 00:00: 05:59 mouth [place] 00 :00 every Medical morning Branch for 4 days. furosemide Yes [id number] 40mg Take 2 [facility] 20 mg 1-02 tablets by ity of tablet 00:00: mouth in [place] 00 the Medical morning. Branch furosemide Yes [id number] 40mg Take 2 [facility] 20 mg 1-02 tablets by ity of tablet 00:00: mouth in [place] 00 the Medical morning. Branch furosemide Yes [id number] 40mg Take 2 [facility] 20 mg 1-02 tablets by ity of tablet 00:00: mouth in [place] 00 the Medical morning. [place] furosemide Yes [id number] 40mg Take 2 [facility] 20 mg 1-02 tablets by ity of tablet 00:00: mouth in [place] 00 the Medical morning. Branch furosemide 2022- No [id number] 40mg Take 2 [facility] 20 mg 1-02 -12 tablets by ity of tablet 00:00: 00:00 mouth in [place] 00 :00 the Medical morning. Branch furosemide 0 2022- No [id number] 40mg Take 2 [facility] 20 mg 1-02 -12 tablets by ity of tablet 00:00: 00:00 mouth in [place] 00 :00 the Medical morning. Branch cetirizine 2021-11 Yes [id number] 10mg Take 1 [facility] (ALLERGY 2-29 tablet by ity of RELIEF, 00:00: mouth in [place] CETIRIZINE, 00 the Medical ) 10 mg morning. Branch tablet albuterol 2021-11 Yes [id number] 2{puff} Inhale 2 [facility] 90 2-29 Puffs ity of mcg/actuati 00:00: every 6 [place] on inhaler 00 (six) Medical hours as Branch needed for Wheezing, Shortness of Breath, Bronchospa sm or Chest tightness. KCL 20 mEq 2021-11 Yes [id number] 20meq Take 1 [facility] tablet 2-29 tablet by ity of 00:00: mouth in [place] 00 the Medical morning. Branch levothyroxi 2021-11 Yes [id number] 150ug Take 1 [facility] ne 150 mcg 2-29 tablet by ity of tablet 00:00: mouth [place] 00 every Medical morning. Branch metoprolol 2021-11 Yes [id number] 25mg Take 0.5 [facility] succinate 2-29 tablets by ity of XL 50 mg 24 00:00: mouth in [place] hr tablet 00 the Medical morning. Branch cetirizine 2021-11 Yes [id number] 10mg Take 1 [facility] (ALLERGY 2-29 tablet by ity of RELIEF, 00:00: mouth in [place] CETIRIZINE, the Medical ) 10 mg morning. Branch tablet albuterol 2021-11 Yes [id number] 2{puff} Inhale 2 [facility] 90 2-29 Puffs ity of mcg/actuati 00:00: every 6 [place] on inhaler 00 (six) Medical hours as Branch needed for Wheezing, Shortness of Breath, Bronchospa sm or Chest tightness. KCL 20 mEq 2021-11 Yes [id number] 20meq Take 1 [facility] tablet 2-29 tablet by ity of 00:00: mouth in [place] the Medical morning. Branch levothyroxi 2021-11 Yes [id number] 150ug Take 1 [facility] ne 150 mcg 2-29 tablet by ity of tablet 00:00: mouth [place] 00 every Medical morning. Branch metoprolol 2021-11 Yes [id number] 25mg Take 0.5 [facility] succinate 2-29 tablets by ity of XL 50 mg 24 00:00: mouth in [place] hr tablet 00 the Medical morning. Branch cetirizine 2021-11 Yes [id number] 10mg Take 1 [facility] (ALLERGY 2-29 tablet by ity of RELIEF, 00:00: mouth in [place] CETIRIZINE, the Medical ) 10 mg morning. Branch tablet albuterol 2021-11 Yes [id number] 2{puff} Inhale 2 [facility] 90 2-29 Puffs ity of mcg/actuati 00:00: every 6 [place] on inhaler 00 (six) Medical hours as Branch needed for Wheezing, Shortness of Breath, Bronchospa sm or Chest tightness. KCL 20 mEq 2021-11 Yes [id number] 20meq Take 1 [facility] tablet 2-29 tablet by ity of 00:00: mouth in [place] 00 the Medical morning. Branch levothyroxi 2021-11 Yes [id number] 150ug Take 1 [facility] ne 150 mcg 2-29 tablet by ity of tablet 00:00: mouth [place] 00 every Medical morning. Branch metoprolol 2021-11 Yes [id number] 25mg Take 0.5 [facility] succinate 2-29 tablets by ity of XL 50 mg 24 00:00: mouth in [place] hr tablet 00 the Medical morning. Branch cetirizine 2021-11 Yes [id number] 10mg Take 1 [facility] (ALLERGY 2-29 tablet by ity of RELIEF, 00:00: mouth in [place] CETIRIZINE, 00 the Medical ) 10 mg morning. Branch tablet albuterol 2021-11 Yes [id number] 2{puff} Inhale 2 [facility] 90 2-29 Puffs ity of mcg/actuati 00:00: every 6 [place] on inhaler 00 (six) Medical hours as Branch needed for Wheezing, Shortness of Breath, Bronchospa sm or Chest tightness. KCL 20 mEq 2021-11 Yes [id number] 20meq Take 1 [facility] tablet 2-29 tablet by ity of 00:00: mouth in [place] 00 the Medical morning. Branch levothyroxi 2021-11 Yes [id number] 150ug Take 1 [facility] ne 150 mcg 2-29 tablet by ity of tablet 00:00: mouth [place] 00 every Medical morning. Branch metoprolol 2021-11 Yes [id number] 25mg Take 0.5 [facility] succinate 2-29 tablets by ity of XL 50 mg 24 00:00: mouth in [place] hr tablet 00 the Medical morning. Branch cetirizine 2021-11 Yes [id number] 10mg Take 1 [facility] (ALLERGY 2-29 tablet by ity of RELIEF, 00:00: mouth in [place] CETIRIZINE, 00 the Medical ) 10 mg morning. Branch tablet albuterol 2021-11 Yes [id number] 2{puff} Inhale 2 [facility] 90 2-29 Puffs ity of mcg/actuati 00:00: every 6 [place] on inhaler 00 (six) Medical hours as Branch needed for Wheezing, Shortness of Breath, Bronchospa sm or Chest tightness. KCL 20 mEq 2021-11 Yes [id number] 20meq Take 1 [facility] tablet 2-29 tablet by ity of 00:00: mouth in [place] 00 the Medical morning. Branch levothyroxi 2021-11 Yes [id number] 150ug Take 1 [facility] ne 150 mcg 2-29 tablet by ity of tablet 00:00: mouth [place] 00 every Medical morning. Branch metoprolol 2021-11 Yes [id number] 25mg Take 0.5 [facility] succinate 2-29 tablets by ity of XL 50 mg 24 00:00: mouth in [place] hr tablet 00 the Medical morning. Branch cetirizine 2021-11 Yes [id number] 10mg Take 1 [facility] (ALLERGY 2-29 tablet by ity of RELIEF, 00:00: mouth in [place] CETIRIZINE, the Medical ) 10 mg morning. Branch tablet albuterol 2021-11 Yes [id number] 2{puff} Inhale 2 [facility] 90 2-29 Puffs ity of mcg/actuati 00:00: every 6 [place] on inhaler 00 (six) Medical hours as Branch needed for Wheezing, Shortness of Breath, Bronchospa sm or Chest tightness. KCL 20 mEq 2021-11 Yes [id number] 20meq Take 1 [facility] tablet 2-29 tablet by ity of 00:00: mouth in [place] 00 the Medical morning. Branch levothyroxi 2021-11 Yes [id number] 150ug Take 1 [facility] ne 150 mcg 2-29 tablet by ity of tablet 00:00: mouth [place] 00 every Medical morning. Branch metoprolol 2021-11 Yes [id number] 25mg Take 0.5 [facility] succinate 2-29 tablets by ity of XL 50 mg 24 00:00: mouth in [place] hr tablet 00 the Medical morning. Branch cetirizine 2021-11 Yes [id number] 10mg Take 1 [facility] (ALLERGY 2-29 tablet by ity of RELIEF, 00:00: mouth in [place] CETIRIZINE, 00 the Medical ) 10 mg morning. Branch tablet albuterol 2021-11 Yes [id number] 2{puff} Inhale 2 [facility] 90 2-29 Puffs ity of mcg/actuati 00:00: every 6 [place] on inhaler 00 (six) Medical hours as Branch needed for Wheezing, Shortness of Breath, Bronchospa sm or Chest tightness. KCL 20 mEq 2021-11 Yes [id number] 20meq Take 1 [facility] tablet 2-29 tablet by ity of 00:00: mouth in [place] 00 the Medical morning. Branch levothyroxi 2021-11 Yes [id number] 150ug Take 1 [facility] ne 150 mcg 2-29 tablet by ity of tablet 00:00: mouth [place] 00 every Medical morning. Branch metoprolol 2021-11 Yes [id number] 25mg Take 0.5 [facility] succinate 2-29 tablets by ity of XL 50 mg 24 00:00: mouth [place] hr tablet 00 the Medical morning. Branch albuterol 2021-11 Yes [id number] 2{puff} Inhale 2 [facility] 90 2-29 Puffs ity of mcg/actuati 00:00: every 6 [place] on inhaler 00 (six) Medical hours as Branch needed for Wheezing, Shortness of Breath, Bronchospa sm or Chest tightness. albuterol 2021-11 Yes [id number] 2{puff} Inhale 2 [facility] 90 2-29 Puffs ity of mcg/actuati 00:00: every 6 [place] as on inhaler 00 (six) Medical hours as Branch needed for Wheezing, Shortness of Breath, Bronchospa sm or Chest tightness. albuterol 2021-11 Yes [id number] 2{puff} Inhale 2 [facility] 90 2-29 Puffs ity of mcg/actuati 00:00: every 6 [place] on inhaler 00 (six) Medical hours as Branch needed for Wheezing, Shortness of Breath, Bronchospa sm or Chest tightness. albuterol 2021-11 Yes [id number] 2{puff} Inhale 2 [facility] 90 2-29 Puffs ity of mcg/actuati 00:00: every 6 [place] on inhaler 00 (six) Medical hours as Branch needed for Wheezing, Shortness of Breath, Bronchospa sm or Chest tightness. albuterol 2021-11 Yes [id number] 2{puff} Inhale 2 [facility] 90 2-29 Puffs ity of mcg/actuati 00:00: every 6 [place] on inhaler 00 (six) Medical hours as Branch needed for Wheezing, Shortness of Breath, Bronchospa sm or Chest tightness. albuterol 2021-11 Yes [id number] 2{puff} Inhale 2 [facility] 90 2-29 Puffs ity of mcg/actuati 00:00: every 6 [place] on inhaler 00 (six) Medical hours as Branch needed for Wheezing, Shortness of Breath, Bronchospa sm or Chest tightness. albuterol 2021-11 Yes [id number] 2{puff} Inhale 2 [facility] 90 2-29 Puffs ity of mcg/actuati 00:00: every 6 [place] on inhaler 00 (six) Medical hours as Branch needed for Wheezing, Shortness of Breath, Bronchospa sm or Chest tightness. albuterol 2021-11 Yes [id number] 2{puff} Inhale 2 [facility] 90 2-29 Puffs ity of mcg/actuati 00:00: every 6 [place] on inhaler 00 (six) Medical hours as Branch needed for Wheezing, Shortness of Breath, Bronchospa sm or Chest tightness. albuterol 2021-11 Yes [id number] 2{puff} Inhale 2 [facility] 90 2-29 Puffs ity of mcg/actuati 00:00: every 6 [place] on inhaler 00 (six) Medical hours as Branch needed for Wheezing, Shortness of Breath, Bronchospa sm or Chest tightness. albuterol 2021-11 Yes [id number] 2{puff} Inhale 2 [facility] 90 2-29 Puffs ity of mcg/actuati 00:00: every 6 [place] on inhaler 00 (six) Medical hours as Branch needed for Wheezing, Shortness of Breath, Bronchospa sm or Chest tightness. albuterol 2021-11 Yes [id number] 2{puff} Inhale 2 [facility] 90 2-29 Puffs ity of mcg/actuati 00:00: every 6 [place] on inhaler 00 (six) Medical hours as Branch needed for Wheezing, Shortness of Breath, Bronchospa sm or Chest tightness. albuterol 2021-11 Yes [id number] 2{puff} Inhale 2 [facility] 90 2-29 Puffs ity of mcg/actuati 00:00: every 6 [place] on inhaler 00 (six) Medical hours as Branch needed for Wheezing, Shortness of Breath, Bronchospa sm or Chest tightness. albuterol 2021-11 Yes [id number] 2{puff} Inhale 2 [facility] 90 2-29 Puffs ity of mcg/actuati 00:00: every 6 [place] on inhaler 00 (six) Medical hours as Branch needed for Wheezing, Shortness of Breath, Bronchospa sm or Chest tightness. albuterol 2021-11 Yes [id number] 2{puff} Inhale 2 [facility] 90 2-29 Puffs ity of mcg/actuati 00:00: every 6 [place] on inhaler 00 (six) Medical hours as Branch needed for Wheezing, Shortness of Breath, Bronchospa sm or Chest tightness. albuterol 2021-11 Yes [id number] 2{puff} Inhale 2 [facility] 90 2-29 Puffs ity of mcg/actuati 00:00: every 6 [place] on inhaler 00 (six) Medical hours as Branch needed for Wheezing, Shortness of Breath, Bronchospa sm or Chest tightness. albuterol 2021-11 Yes [id number] 2{puff} Inhale 2 [facility] 90 2-29 Puffs ity of mcg/actuati 00:00: every 6 [place] on inhaler 00 (six) Medical hours as Branch needed for Wheezing, Shortness of Breath, Bronchospa sm or Chest tightness. albuterol 2021-11 Yes [id number] 2{puff} Inhale 2 [facility] 90 2-29 Puffs ity of mcg/actuati 00:00: every 6 [place] on inhaler 00 (six) Medical hours as Branch needed for Wheezing, Shortness of Breath, Bronchospa sm or Chest tightness. albuterol 2021-11 Yes [id number] 2{puff} Inhale 2 [facility] 90 2-29 Puffs ity of mcg/actuati 00:00: every 6 [place] on inhaler 00 (six) Medical hours as Branch needed for Wheezing, Shortness of Breath, Bronchospa sm or Chest tightness. albuterol 2021-11 Yes [id number] 2{puff} Inhale 2 [facility] 90 2-29 Puffs ity of mcg/actuati 00:00: every 6 [place] on inhaler 00 (six) Medical hours as Branch needed for Wheezing, Shortness of Breath, Bronchospa sm or Chest tightness. albuterol 2021-11 Yes [id number] 2{puff} Inhale 2 [facility] 90 2-29 Puffs ity of mcg/actuati 00:00: every 6 [place] on inhaler 00 (six) Medical hours as Branch needed for Wheezing, Shortness of Breath, Bronchospa sm or Chest tightness. albuterol 2021-11 Yes [id number] 2{puff} Inhale 2 [facility] 90 2-29 Puffs ity of mcg/actuati 00:00: every 6 [place] on inhaler 00 (six) Medical hours as Branch needed for Wheezing, Shortness of Breath, Bronchospa sm or Chest tightness. cetirizine 2021-11- No [id number] 10mg Take 1 [facility] (ALLERGY 12-04 tablet by ity o f RELIEF, 00:00: 00:00 mouth in [place] CETIRIZINE, 00 :00 the Medical ) 10 mg morning. [place] tablet KCL 20 mEq 2021-11- No [id number] 20meq Take 1 [facility] tablet 12-04 tablet by ity of 00:00: 00:00 mouth in [place] 00 :00 the Medical morning. [place] levothyroxi 2021-11- No [id number] 150ug Take 1 [facility] ne 150 mcg 12-04 tablet by ity of tablet 00:00: 00:00 mouth [place] 00 :00 every Medical morning. [place] metoprolol 2021-11- No [id number] 25mg Take 0.5 [facility] succinate 12-04 tablets by ity of XL 50 mg 24 00:00: 00:00 mouth in [place] hr tablet 00 :00 the Medical morning. [place] cetirizine 2021-11- No [id number] 10mg Take 1 [facility] (ALLERGY 12-04 tablet by ity o f RELIEF, 00:00: 00:00 mouth in [place] CETIRIZINE, 00 :00 the Medical ) 10 mg morning. [place] tablet KCL 20 mEq 2021-11- No [id number] 20meq Take 1 [facility] tablet 12-04 tablet by ity of 00:00: 00:00 mouth in [place] 00 :00 the Medical morning. [place] levothyroxi 2021-11- No [id number] 150ug Take 1 [facility] ne 150 mcg 12-04 tablet by ity of tablet 00:00: 00:00 mouth [place] 00 :00 every Medical morning. Branch metoprolol 2021-11- No [id number] 25mg Take 0.5 [facility] succinate 12-04 tablets by ity of XL 50 mg 24 00:00: 00:00 mouth in [place] hr tablet 00 :00 the Medical morning. Branch semaglutide 2021-11 Yes [id number] .5mg inject 0.5 [facility] (OZEMPIC) 2-23 mg under ity of 0.25 mg or 00:00: the skin [place] 0.5 mg(2 00 weekly. Medical mg/1.5 mL) [place] empaglifloz 2021-11 Yes [id number] 10mg Take 1 [facility] in 2-23 tablet by ity of (JARDIANCE) 00:00: mouth [place] 10 mg 00 every Medical morning. Branch semaglutide 2021-11 Yes [id number] .5mg inject 0.5 [facility] (OZEMPIC) 2-23 mg under ity of 0.25 mg or 00:00: the skin [place] 0.5 mg(2 00 weekly. Medical mg/1.5 mL) [place] empaglifloz 2021-11 Yes [id number] 10mg Take 1 [facility] in 2-23 tablet by ity of (JARDIANCE) 00:00: mouth [place] 10 mg 00 every Medical morning. Branch semaglutide 2021-11 Yes [id number] .5mg inject 0.5 [facility] (OZEMPIC) 2-23 mg under ity of 0.25 mg or 00:00: the skin [place] 0.5 mg(2 00 weekly. Medical mg/1.5 mL) [place] empaglifloz 2021-11 Yes [id number] 10mg Take 1 [facility] in 2-23 tablet by ity of (JARDIANCE) 00:00: mouth [place] 10 mg 00 every Medical morning. Branch semaglutide 2021-11 Yes [id number] .5mg inject 0.5 [facility] (OZEMPIC) 2-23 mg under ity of 0.25 mg or 00:00: the skin [place] 0.5 mg(2 00 weekly. Medical mg/1.5 mL) Branch [place] empaglifloz 2021-11 Yes [id number] 10mg Take 1 [facility] in 2-23 tablet by ity of (JARDIANCE) 00:00: mouth [place] 10 mg 00 every Medical morning. Branch semaglutide 2021-11 Yes [id number] .5mg inject 0.5 [facility] (OZEMPIC) 2-23 mg under ity of 0.25 mg or 00:00: the skin [place] 0.5 mg(2 00 weekly. Medical mg/1.5 mL) Branch [place] empaglifloz 2021-11 Yes [id number] 10mg Take 1 [facility] in 2-23 tablet by ity of (JARDIANCE) 00:00: mouth [place] 10 mg 00 every Medical morning. Branch semaglutide 2021-11 Yes [id number] .5mg inject 0.5 [facility] (OZEMPIC) 2-23 mg under ity of 0.25 mg or 00:00: the skin [place] 0.5 mg(2 00 weekly. Medical mg/1.5 mL) Branch [place] empaglifloz 2021-11 Yes [id number] 10mg Take 1 [facility] in 2-23 tablet by ity of (JARDIANCE) 00:00: mouth [place] 10 mg 00 every Medical morning. Branch semaglutide 2021-11 Yes [id number] .5mg inject 0.5 [facility] (OZEMPIC) 2-23 mg under ity of 0.25 mg or 00:00: the skin [place] 0.5 mg(2 00 weekly. Medical mg/1.5 mL) Branch [place] empaglifloz 2021-11 Yes [id number] 10mg Take 1 [facility] in 2-23 tablet by ity of (JARDIANCE) 00:00: mouth [place] 10 mg 00 every Medical morning. Branch semaglutide 2021-11 Yes [id number] .5mg inject 0.5 [facility] (OZEMPIC) 2-23 mg under ity of 0.25 mg or 00:00: the skin [place] 0.5 mg(2 00 weekly. Medical mg/1.5 mL) Branch [place] empaglifloz 2021-11 Yes [id number] 10mg Take 1 [facility] in 2-23 tablet by ity of (JARDIANCE) 00:00: mouth [place] 10 mg 00 every Medical morning. Branch semaglutide 2021-11 Yes [id number] .5mg inject 0.5 [facility] (OZEMPIC) 2-23 mg under ity of 0.25 mg or 00:00: the skin [place] 0.5 mg(2 00 weekly. Medical mg/1.5 mL) [place] empaglifloz 2021-11 Yes [id number] 10mg Take 1 [facility] in 2-23 tablet by ity of (JARDIANCE) 00:00: mouth [place] 10 mg 00 every Medical morning. Branch semaglutide 2021-11 Yes [id number] .5mg inject 0.5 [facility] (OZEMPIC) 2-23 mg under ity of 0.25 mg or 00:00: the skin [place] 0.5 mg(2 00 weekly. Medical mg/1.5 mL) [place] empaglifloz 2021-11 Yes [id number] 10mg Take 1 [facility] in 2-23 tablet by ity of (JARDIANCE) 00:00: mouth [place] 10 mg 00 every Medical morning. Branch semaglutide 2021-11 Yes [id number] .5mg inject 0.5 [facility] (OZEMPIC) 2-23 mg under ity of 0.25 mg or 00:00: the skin [place] 0.5 mg(2 00 weekly. Medical mg/1.5 mL) [place] empaglifloz 2021-11 Yes [id number] 10mg Take 1 [facility] in 2-23 tablet by ity of (JARDIANCE) 00:00: mouth [place] 10 mg 00 every Medical morning. Branch semaglutide 2021-11 Yes [id number] .5mg inject 0.5 [facility] (OZEMPIC) 2-23 mg under ity of 0.25 mg or 00:00: the skin [place] 0.5 mg(2 00 weekly. Medical mg/1.5 mL) [place] empaglifloz 2021-11 Yes [id number] 10mg Take 1 [facility] in 2-23 tablet by ity of (JARDIANCE) 00:00: mouth [place] 10 mg 00 every Medical morning. Branch semaglutide 2021-11 Yes [id number] .5mg inject 0.5 [facility] (OZEMPIC) 2-23 mg under ity of 0.25 mg or 00:00: the skin [place] as 0.5 mg(2 00 weekly. Medical mg/1.5 mL) Branch PnIj empaglifloz 2021-11 Yes [id number] 10mg Take 1 [facility] in 2-23 tablet by ity of (JARDIANCE) 00:00: mouth [place] 10 mg 00 every Medical morning. Branch semaglutide 2021-11 Yes [id number] .5mg inject 0.5 [facility] (OZEMPIC) 2-23 mg under ity of 0.25 mg or 00:00: the skin [place] 0.5 mg(2 00 weekly. Medical mg/1.5 mL) Branch PnIj empaglifloz 2021-11 Yes [id number] 10mg Take 1 [facility] in 2-23 tablet by ity of (JARDIANCE) 00:00: mouth [place] 10 mg 00 every Medical morning. Branch semaglutide 2021-11 Yes [id number] .5mg inject 0.5 [facility] (OZEMPIC) 2-23 mg under ity of 0.25 mg or 00:00: the skin [place] 0.5 mg(2 00 weekly. Medical mg/1.5 mL) Branch PnIj empaglifloz 2021-11 Yes [id number] 10mg Take 1 [facility] in 2-23 tablet by ity of (JARDIANCE) 00:00: mouth [place] 10 mg 00 every Medical morning. Branch semaglutide 2021-11 Yes [id number] .5mg inject 0.5 [facility] (OZEMPIC) 2-23 mg under ity of 0.25 mg or 00:00: the skin [place] 0.5 mg(2 00 weekly. Medical mg/1.5 mL) Branch PnIj empaglifloz 2021-11 Yes [id number] 10mg Take 1 [facility] in 2-23 tablet by ity of (JARDIANCE) 00:00: mouth [place] 10 mg 00 every Medical morning. Branch semaglutide 2021- Yes [id number] .5mg inject 0.5 [facility] (OZEMPIC) 2-23 mg under ity of 0.25 mg or 00:00: the skin [place] 0.5 mg(2 00 weekly. Medical mg/1.5 mL) Branch PnIj empaglifloz 2021-11 Yes [id number] 10mg Take 1 [facility] in 2-23 tablet by ity of (JARDIANCE) 00:00: mouth [place] 10 mg 00 every Medical morning. Branch semaglutide 2021-11 Yes [id number] .5mg inject 0.5 [facility] (OZEMPIC) 2-23 mg under ity of 0.25 mg or 00:00: the skin [place] 0.5 mg(2 00 weekly. Medical mg/1.5 mL) Branch PnIj empaglifloz 2021-11 Yes [id number] 10mg Take 1 [facility] in 2-23 tablet by ity of (JARDIANCE) 00:00: mouth [place] 10 mg 00 every Medical morning. Branch semaglutide 2021-11 Yes [id number] .5mg inject 0.5 [facility] (OZEMPIC) 2-23 mg under ity of 0.25 mg or 00:00: the skin [place] 0.5 mg(2 00 weekly. Medical mg/1.5 mL) Branch AnivalIj empaglifloz 2021-11 Yes [id number] 10mg Take 1 [facility] in 2-23 tablet by ity of ([facility]) 00:00: mouth [place] 10 mg 00 every Medical morning. Branch semaglutide 2021-11 Yes [id number] .5mg inject 0.5 [facility] (OZEMPIC) 2-23 mg under ity of 0.25 mg or 00:00: the skin [place] 0.5 mg(2 00 weekly. Medical mg/1.5 mL) Branch PnIj empaglifloz 2021-11 Yes [id number] 10mg Take 1 [facility] in 2-23 tablet by ity of (JARDIANCE) 00:00: mouth [place] 10 mg 00 every Medical morning. Branch semaglutide 2021-11 Yes [id number] .5mg inject 0.5 [facility] (OZEMPIC) 2-23 mg under ity of 0.25 mg or 00:00: the skin [place] 0.5 mg(2 00 weekly. Medical mg/1.5 mL) Branch PnIj empaglifloz 2021-11 Yes [id number] 10mg Take 1 [facility] in 2-23 tablet by ity of (JARDIANCE) 00:00: mouth [place] 10 mg 00 every Medical morning. Branch semaglutide 2021-11 Yes [id number] .5mg inject 0.5 [facility] (OZEMPIC) 2-23 mg under ity of 0.25 mg or 00:00: the skin [place] 0.5 mg(2 00 weekly. Medical mg/1.5 mL) Branch PnIj empaglifloz 2021-11 Yes [id number] 10mg Take 1 [facility] in 2-23 tablet by ity of (JARDIANCE) 00:00: mouth [place] 10 mg 00 every Medical morning. Branch semaglutide 2021-11 Yes [id number] .5mg inject 0.5 [facility] (OZEMPIC) 2-23 mg under ity of 0.25 mg or 00:00: the skin [place] 0.5 mg(2 00 weekly. Medical mg/1.5 mL) Branch PnIj empaglifloz 2021-11 Yes [id number] 10mg Take 1 [facility] in 2-23 tablet by ity of (JARDIANCE) 00:00: mouth [place] 10 mg 00 every Medical morning. Branch semaglutide 2021-11 Yes [id number] .5mg inject 0.5 [facility] (OZEMPIC) 2-23 mg under ity of 0.25 mg or 00:00: the skin [place] 0.5 mg(2 00 weekly. Medical mg/1.5 mL) Branch PnIj empaglifloz 2021-11 Yes [id number] 10mg Take 1 [facility] in 2-23 tablet by ity of (JARDIANCE) 00:00: mouth [place] 10 mg 00 every Medical morning. Branch semaglutide 2021-11 Yes [id number] .5mg inject 0.5 [facility] (OZEMPIC) 2-23 mg under ity of 0.25 mg or 00:00: the skin [place] 0.5 mg(2 00 weekly. Medical mg/1.5 mL) Branch PnIj empaglifloz 2021-11 Yes [id number] 10mg Take 1 [facility] in 2-23 tablet by ity of (JARDIANCE) 00:00: mouth [place] 10 mg 00 every Medical morning. Branch semaglutide 2021-11 Yes [id number] .5mg inject 0.5 [facility] (OZEMPIC) 2-23 mg under ity of 0.25 mg or 00:00: the skin [place] 0.5 mg(2 00 weekly. Medical mg/1.5 mL) Branch PnIj empaglifloz 2021-11 Yes [id number] 10mg Take 1 [facility] in 2-23 tablet by ity of (JARDIANCE) 00:00: mouth [place] 10 mg 00 every Medical morning. Branch semaglutide 2021-11 Yes [id number] .5mg inject 0.5 [facility] (OZEMPIC) 2-23 mg under ity of 0.25 mg or 00:00: the skin [place] 0.5 mg(2 00 weekly. Medical mg/1.5 mL) Branch PnIj empaglifloz 2021-11 Yes [id number] 10mg Take 1 [facility] in 2-23 tablet by ity of (JARDIANCE) 00:00: mouth [place] 10 mg 00 every Medical morning. Branch semaglutide 2021-11 Yes [id number] .5mg inject 0.5 [facility] (OZEMPIC) 2-23 mg under ity of 0.25 mg or 00:00: the skin [place] 0.5 mg(2 00 weekly. Medical mg/1.5 mL) Branch PnIj empaglifloz 2021-11 Yes [id number] 10mg Take 1 [facility] in 2-23 tablet by ity of (JARDIANCE) 00:00: mouth [place] 10 mg 00 every Medical morning. Branch semaglutide 2021-11 Yes [id number] .5mg inject 0.5 [facility] (OZEMPIC) 2-23 mg under ity of 0.25 mg or 00:00: the skin [place] 0.5 mg(2 00 weekly. Medical mg/1.5 mL) Branch PnIj empaglifloz 2021-11 Yes [id number] 10mg Take 1 [facility] in 2-23 tablet by ity of (JARDIANCE) 00:00: mouth [place] 10 mg 00 every Medical morning. Branch semaglutide 2021-11 Yes [id number] .5mg inject 0.5 [facility] (OZEMPIC) 2-23 mg under ity of 0.25 mg or 00:00: the skin [place] 0.5 mg(2 00 weekly. Medical mg/1.5 mL) Branch PnIj empaglifloz 2021-11 Yes [id number] 10mg Take 1 [facility] in 2-23 tablet by ity of (JARDIANCE) 00:00: mouth [place] 10 mg 00 every Medical morning. Branch semaglutide 2021-11 Yes [id number] .5mg inject 0.5 [facility] (OZEMPIC) 2-23 mg under ity of 0.25 mg or 00:00: the skin [place] 0.5 mg(2 00 weekly. Medical mg/1.5 mL) Branch Anival empaglifloz 2021-11 Yes [id number] 10mg Take 1 [facility] in 2-23 tablet by ity of ([place]) 00:00: mouth [place] 10 mg 00 every Medical morning. Branch semaglutide 2021-11 Yes [id number] .5mg inject 0.5 [facility] (OZEMPIC) 2-23 mg under ity of 0.25 mg or 00:00: the skin [place] 0.5 mg(2 00 weekly. Medical mg/1.5 mL) [facility] empaglifloz 2021-11 Yes [id number] 10mg Take 1 [facility] in 2-23 tablet by ity of (JARDIANCE) 00:00: mouth [place] 10 mg 00 every Medical morning. Branch semaglutide 2021-11 Yes [id number] .5mg inject 0.5 [facility] (OZEMPIC) 2-23 mg under ity of 0.25 mg or 00:00: the skin [place] 0.5 mg(2 00 weekly. Medical mg/1.5 mL) [facility] empaglifloz 2021-11 Yes [id number] 10mg Take 1 [facility] in 2-23 tablet by ity of (JARDIANCE) 00:00: mouth [place] 10 mg 00 every Medical morning. Branch semaglutide 2021-11 Yes [id number] .5mg inject 0.5 [facility] (OZEMPIC) 2-23 mg under ity of 0.25 mg or 00:00: the skin [place] 0.5 mg(2 00 weekly. Medical mg/1.5 mL) [facility] empaglifloz 2021-11 Yes [id number] 10mg Take 1 [facility] in 2-23 tablet by ity of (JARDIANCE) 00:00: mouth [place] 10 mg 00 every Medical morning. Branch ondansetron 2021-11- No 4mg 4 mg, Slow [facility] (ZOFRAN 01-08 IV Push, ity of (PF)) 09:00: 09:12 ONCE, 1 [place] injection 4 00 :00 dose, On Medi johnathon mg Fri Branch 11/07/22 at 0300, DELFIN iopamidol 2021-11- No [id number] 100mL 100 mL, [facility] (ISOVUE 01-08 Intravenou ity o f 370-500 mL) 08:15: 08:15 s, ONCE, 1 [place] injection 00 :00 dose, On Medica l 100 mL Fri Branch 11/07/22 at 0215, Routine ketorolac 2021-11 No 30mg 30 mg, Unive rs (TORADOL) 2-16 11-07 Slow IV ity of injection 07:30: 06:41 Push, [place] 30 mg 00 :00 ONCE, 1 Medical dose, On Branch 11/07/22 at 0130, Routine ondansetron 2021-11- No 4mg 4 mg, Slow [facility] (ZOFRAN -11-07 IV Push, ity of (PF)) 06:30: 06:39 ONCE, 1 [place] injection 4 00 :00 dose, On Medi johnathon mg Thu Branch 11/07/22 at 0030, DELFIN ondansetron 2021-11 Yes [id number] 8mg Take 1 [facility] 8 mg 2-16 tablet by ity of disintegrat 00:00: mouth [place] ing tablet 00 every 8 Medica l (eight) Branch hours as needed for Nausea and Vomiting (N/V). proMETHazin 2021-11 Yes [id number] 25mg Take 1 [facility] e 25 mg 2-16 tablet by ity of tablet 00:00: mouth [place] 00 every 6 Medical (six) Branch hours as needed for N/V unresponsi ve to Ondansetro n. ondansetron 2021-11 Yes [id number] 8mg Take 1 [facility] 8 mg 2-16 tablet by ity of disintegrat 00:00: mouth [place] ing tablet 00 every 8 Medica l (eight) Branch hours as needed for Nausea and Vomiting (N/V). proMETHazin 2021-11 Yes [id number] 25mg Take 1 [facility] e 25 mg 2-16 tablet by ity of tablet 00:00: mouth [place] 00 every 6 Medical (six) Branch hours as needed for N/V unresponsi ve to Ondansetro n. azithromyci 2021-11 Yes [id number] Take two [facility] n 250 mg 2-16 tablets my ity o f tablet 00:00: mouth [place] 00 today Medical followed Branch by one tablet daily for a total for 5 days. Do not take with ondansetro n (wait at least 12 hours after taking azithromyc in) predniSONE 2021-11 Yes [id number] Take one [facility] 20 mg 2-16 tablet by ity of tablet 00:00: mouth [place] 00 daily for Medical five days Branch ondansetron 2021-11 Yes [id number] 8mg Take 1 [facility] 8 mg 2-16 tablet by ity of disintegrat 00:00: mouth [place] ing tablet 00 every 8 Medica l (eight) Branch hours as needed for Nausea and Vomiting (N/V). proMETHazin 2021-11 Yes [id number] 25mg Take 1 [facility] e 25 mg 2-16 tablet by ity of tablet 00:00: mouth [place] 00 every 6 Medical (six) Branch hours as needed for N/V unresponsi ve to Ondansetro n. azithromyci 2021-11 Yes [id number] Take two [facility] n 250 mg 2-16 tablets my ity o f tablet 00:00: mouth [place] 00 today Medical followed Branch by one tablet daily for a total for 5 days. Do not take with ondansetro n (wait at least 12 hours after taking azithromyc in) predniSONE 2021-11 Yes [id number] Take one [facility] 20 mg 2-16 tablet by ity of tablet 00:00: mouth [place] 00 daily for Medical five days Branch ondansetron 2021-11 Yes [id number] 8mg Take 1 [facility] 8 mg 2-16 tablet by ity of disintegrat 00:00: mouth [place] ing tablet 00 every 8 Medica l (eight) Branch hours as needed for Nausea and Vomiting (N/V). proMETHazin 2021-11 Yes [id number] 25mg Take 1 [facility] e 25 mg 2-16 tablet by ity of tablet 00:00: mouth [place] 00 every 6 Medical (six) Branch hours as needed for N/V unresponsi ve to Ondansetro n. azithromyci 2021-11 Yes [id number] Take two [facility] n 250 mg 2-16 tablets my ity o f tablet 00:00: mouth [place] 00 today Medical followed Branch by one tablet daily for a total for 5 days. Do not take with ondansetro n (wait at least 12 hours after taking azithromyc in) predniSONE 2021-11 Yes [id number] Take one [facility] 20 mg 2-16 tablet by ity of tablet 00:00: mouth [place] 00 daily for Medical five days Branch ondansetron 2021-11 Yes [id number] 8mg Take 1 [facility] 8 mg 2-16 tablet by ity of disintegrat 00:00: mouth [place] ing tablet 00 every 8 Medica l (eight) Branch hours as needed for Nausea and Vomiting (N/V). proMETHazin 2021-11 Yes [id number] 25mg Take 1 [facility] e 25 mg 2-16 tablet by ity of tablet 00:00: mouth [place] 00 every 6 Medical (six) Branch hours as needed for N/V unresponsi ve to Ondansetro n. azithromyci 2021-11 Yes [id number] Take two [facility] n 250 mg 2-16 tablets my ity o f tablet 00:00: mouth [place] 00 today Medical followed Branch by one tablet daily for a total for 5 days. Do not take with ondansetro n (wait at least 12 hours after taking azithromyc in) predniSONE 2021-11 Yes [id number] Take one [facility] 20 mg 2-16 tablet by ity of tablet 00:00: mouth [place] 00 daily for Medical five days Branch ondansetron 2021-11 Yes [id number] 8mg Take 1 [facility] 8 mg 2-16 tablet by ity of disintegrat 00:00: mouth [place] ing tablet 00 every 8 Medica l (eight) Branch hours as needed for Nausea and Vomiting (N/V). proMETHazin 2021-11 Yes [id number] 25mg Take 1 [facility] e 25 mg 2-16 tablet by ity of tablet 00:00: mouth [place] 00 every 6 Medical (six) Branch hours as needed for N/V unresponsi ve to Ondansetro n. azithromyci 2021-11 Yes [id number] Take two [facility] n 250 mg 2-16 tablets my ity o f tablet 00:00: mouth [place] 00 today Medical followed Branch by one tablet daily for a total for 5 days. Do not take with ondansetro n (wait at least 12 hours after taking azithromyc in) predniSONE 2021-11 Yes [id number] Take one [facility] 20 mg 2-16 tablet by ity of tablet 00:00: mouth [place] 00 daily for Medical five days Branch ondansetron 2021-11 Yes [id number] 8mg Take 1 [facility] 8 mg 2-16 tablet by ity of disintegrat 00:00: mouth [place] ing tablet 00 every 8 Medica l (eight) Branch hours as needed for Nausea and Vomiting (N/V). proMETHazin 2021-11 Yes [id number] 25mg Take 1 [facility] e 25 mg 2-16 tablet by ity of tablet 00:00: mouth [place] 00 every 6 Medical (six) Branch hours as needed for N/V unresponsi ve to Ondansetro n. azithromyci 2021-11 Yes [id number] Take two [facility] n 250 mg 2-16 tablets my ity o f tablet 00:00: mouth [place] 00 today Medical followed Branch by one tablet daily for a total for 5 days. Do not take with ondansetro n (wait at least 12 hours after taking azithromyc in) predniSONE 2021-11 Yes [id number] Take one [facility] 20 mg 2-16 tablet by ity of tablet 00:00: mouth [place] 00 daily for Medical five days Branch ondansetron 2021-11 Yes [id number] 8mg Take 1 [facility] 8 mg 2-16 tablet by ity of disintegrat 00:00: mouth [place] ing tablet 00 every 8 Medica l (eight) Branch hours as needed for Nausea and Vomiting (N/V). proMETHazin 2021-11 Yes [id number] 25mg Take 1 [facility] e 25 mg 2-16 tablet by ity of tablet 00:00: mouth [place] 00 every 6 Medical (six) Branch hours as needed for N/V unresponsi ve to Ondansetro n. azithromyci 2021-11 Yes [id number] Take two [facility] n 250 mg 2-16 tablets my ity o f tablet 00:00: mouth [place] 00 today Medical followed Branch by one tablet daily for a total for 5 days. Do not take with ondansetro n (wait at least 12 hours after taking azithromyc in) predniSONE 2021-11 Yes [id number] Take one [facility] 20 mg 2-16 tablet by ity of tablet 00:00: mouth [place] 00 daily for Medical five days Branch ondansetron 2021-11 Yes [id number] 8mg Take 1 [facility] 8 mg 2-16 tablet by ity of disintegrat 00:00: mouth [place] ing tablet 00 every 8 Medica l (eight) Branch hours as needed for Nausea and Vomiting (N/V). proMETHazin 2021-11 Yes [id number] 25mg Take 1 [facility] e 25 mg 2-16 tablet by ity of tablet 00:00: mouth [place] 00 every 6 Medical (six) Branch hours as needed for N/V unresponsi ve to Ondansetro n. azithromyci 2021-11 Yes [id number] Take two [facility] n 250 mg 2-16 tablets my ity o f tablet 00:00: mouth [place] 00 today Medical followed Branch by one tablet daily for a total for 5 days. Do not take with ondansetro n (wait at least 12 hours after taking azithromyc in) predniSONE 2021-11 Yes [id number] Take one [facility] 20 mg 2-16 tablet by ity of tablet 00:00: mouth [place] 00 daily for Medical five days Branch ondansetron 2021-11 Yes [id number] 8mg Take 1 [facility] 8 mg 2-16 tablet by ity of disintegrat 00:00: mouth [place] ing tablet 00 every 8 Medica l (eight) Branch hours as needed for Nausea and Vomiting (N/V). proMETHazin 2021-11 Yes [id number] 25mg Take 1 [facility] e 25 mg 2-16 tablet by ity of tablet 00:00: mouth [place] 00 every 6 Medical (six) Branch hours as needed for N/V unresponsi ve to Ondansetro n. azithromyci 2021-11 Yes [id number] Take two [facility] n 250 mg 2-16 tablets my ity o f tablet 00:00: mouth [place] 00 today Medical followed Branch by one tablet daily for a total for 5 days. Do not take with ondansetro n (wait at least 12 hours after taking azithromyc in) predniSONE 2021-11 Yes [id number] Take one [facility] 20 mg 2-16 tablet by ity of tablet 00:00: mouth [place] 00 daily for Medical five days Branch ondansetron 2021-11 Yes [id number] 8mg Take 1 [facility] 8 mg 2-16 tablet by ity of disintegrat 00:00: mouth [place] ing tablet 00 every 8 Medica l (eight) Branch hours as needed for Nausea and Vomiting (N/V). proMETHazin 2021-11 Yes [id number] 25mg Take 1 [facility] e 25 mg 2-16 tablet by ity of tablet 00:00: mouth [place] 00 every 6 Medical (six) Branch hours as needed for N/V unresponsi ve to Ondansetro n. azithromyci 2021-11 Yes [id number] Take two [facility] n 250 mg 2-16 tablets my ity o f tablet 00:00: mouth [place] 00 today Medical followed Branch by one tablet daily for a total for 5 days. Do not take with ondansetro n (wait at least 12 hours after taking azithromyc in) predniSONE 2021-11 Yes [id number] Take one [facility] 20 mg 2-16 tablet by ity of tablet 00:00: mouth [place] 00 daily for Medical five days Branch ondansetron 2021-11 Yes [id number] 8mg Take 1 [facility] 8 mg 2-16 tablet by ity of disintegrat 00:00: mouth [place] ing tablet 00 every 8 Medica l (eight) Branch hours as needed for Nausea and Vomiting (N/V). proMETHazin 2021-11 Yes [id number] 25mg Take 1 [facility] e 25 mg 2-16 tablet by ity of tablet 00:00: mouth [place] 00 every 6 Medical (six) Branch hours as needed for N/V unresponsi ve to Ondansetro n. azithromyci 2021-11 Yes [id number] Take two [facility] n 250 mg 2-16 tablets my ity o f tablet 00:00: mouth [place] 00 today Medical followed Branch by one tablet daily for a total for 5 days. Do not take with ondansetro n (wait at least 12 hours after taking azithromyc in) predniSONE 2021-11 Yes [id number] Take one [facility] 20 mg 2-16 tablet by ity of tablet 00:00: mouth [place] 00 daily for Medical five days Branch ondansetron 2021-11 Yes [id number] 8mg Take 1 [facility] 8 mg 2-16 tablet by ity of disintegrat 00:00: mouth [place] ing tablet 00 every 8 Medica l (eight) Branch hours as needed for Nausea and Vomiting (N/V). proMETHazin 2021-11 Yes [id number] 25mg Take 1 [facility] e 25 mg 2-16 tablet by ity of tablet 00:00: mouth [place] 00 every 6 Medical (six) Branch hours as needed for N/V unresponsi ve to Ondansetro n. azithromyci 2021-11 Yes [id number] Take two [facility] n 250 mg 2-16 tablets my ity o f tablet 00:00: mouth [place] 00 today Medical followed Branch by one tablet daily for a total for 5 days. Do not take with ondansetro n (wait at least 12 hours after taking azithromyc in) predniSONE 2021-11 Yes [id number] Take one [facility] 20 mg 2-16 tablet by ity of tablet 00:00: mouth [place] 00 daily for Medical five days Branch ondansetron 2021-11 Yes [id number] 8mg Take 1 [facility] 8 mg 2-16 tablet by ity of disintegrat 00:00: mouth [place] ing tablet 00 every 8 Medica l (eight) Branch hours as needed for Nausea and Vomiting (N/V). proMETHazin 2021-11 Yes [id number] 25mg Take 1 [facility] e 25 mg 2-16 tablet by ity of tablet 00:00: mouth [place] 00 every 6 Medical (six) Branch hours as needed for N/V unresponsi ve to Ondansetro n. azithromyci 2021-11 Yes [id number] Take two [facility] n 250 mg 2-16 tablets my ity o f tablet 00:00: mouth [place] 00 today Medical followed Branch by one tablet daily for a total for 5 days. Do not take with ondansetro n (wait at least 12 hours after taking azithromyc in) predniSONE 2021-11 Yes [id number] Take one [facility] 20 mg 2-16 tablet by ity of tablet 00:00: mouth [place] 00 daily for Medical five days Branch ondansetron 2021-11 Yes [id number] 8mg Take 1 [facility] 8 mg 2-16 tablet by ity of disintegrat 00:00: mouth [place] ing tablet 00 every 8 Medica l (eight) Branch hours as needed for Nausea and Vomiting (N/V). proMETHazin 2021-11 Yes [id number] 25mg Take 1 [facility] e 25 mg 2-16 tablet by ity of tablet 00:00: mouth [place] 00 every 6 Medical (six) Branch hours as needed for N/V unresponsi ve to Ondansetro n. azithromyci 2021-11 Yes [id number] Take two [facility] n 250 mg 2-16 tablets my ity o f tablet 00:00: mouth [place] 00 today Medical followed Branch by one tablet daily for a total for 5 days. Do not take with ondansetro n (wait at least 12 hours after taking azithromyc in) predniSONE 2021-11 Yes [id number] Take one [facility] 20 mg 2-16 tablet by ity of tablet 00:00: mouth [place] 00 daily for Medical five days Branch ondansetron 2021-11 Yes [id number] 8mg Take 1 [facility] 8 mg 2-16 tablet by ity of disintegrat 00:00: mouth [place] ing tablet 00 every 8 Medica l (eight) Branch hours as needed for Nausea and Vomiting (N/V). proMETHazin 2021-11 Yes [id number] 25mg Take 1 [facility] e 25 mg 2-16 tablet by ity of tablet 00:00: mouth [place] 00 every 6 Medical (six) Branch hours as needed for N/V unresponsi ve to Ondansetro n. azithromyci 2021-11 Yes [id number] Take two [facility] n 250 mg 2-16 tablets my ity o f tablet 00:00: mouth [place] 00 today Medical followed Branch by one tablet daily for a total for 5 days. Do not take with ondansetro n (wait at least 12 hours after taking azithromyc in) predniSONE 2021-11 Yes [id number] Take one [facility] 20 mg 2-16 tablet by ity of tablet 00:00: mouth [place] 00 daily for Medical five days Branch ondansetron 2021-11 Yes [id number] 8mg Take 1 [facility] 8 mg 2-16 tablet by ity of disintegrat 00:00: mouth [place] ing tablet 00 every 8 Medica l (eight) Branch hours as needed for Nausea and Vomiting (N/V). proMETHazin 2021-11 Yes [id number] 25mg Take 1 [facility] e 25 mg 2-16 tablet by ity of tablet 00:00: mouth [place] 00 every 6 Medical (six) Branch hours as needed for N/V unresponsi ve to Ondansetro n. azithromyci 2021-11 Yes [id number] Take two [facility] n 250 mg 2-16 tablets my ity o f tablet 00:00: mouth [place] 00 today Medical followed Branch by one tablet daily for a total for 5 days. Do not take with ondansetro n (wait at least 12 hours after taking azithromyc in) predniSONE 2021-11 Yes [id number] Take one [facility] 20 mg 2-16 tablet by ity of tablet 00:00: mouth [place] 00 daily for Medical five days Branch ondansetron 2021-11 Yes [id number] 8mg Take 1 [facility] 8 mg 2-16 tablet by ity of disintegrat 00:00: mouth [place] ing tablet 00 every 8 Medica l (eight) Branch hours as needed for Nausea and Vomiting (N/V). proMETHazin 2021-11 Yes [id number] 25mg Take 1 [facility] e 25 mg 2-16 tablet by ity of tablet 00:00: mouth [place] 00 every 6 Medical (six) Branch hours as needed for N/V unresponsi ve to Ondansetro n. azithromyci 2021-11 Yes [id number] Take two [facility] n 250 mg 2-16 tablets my ity o f tablet 00:00: mouth [place] 00 today Medical followed Branch by one tablet daily for a total for 5 days. Do not take with ondansetro n (wait at least 12 hours after taking azithromyc in) predniSONE 2021-11 Yes [id number] Take one [facility] 20 mg 2-16 tablet by ity of tablet 00:00: mouth [place] 00 daily for Medical five days Branch ondansetron 2021-11 Yes [id number] 8mg Take 1 [facility] 8 mg 2-16 tablet by ity of disintegrat 00:00: mouth [place] ing tablet 00 every 8 Medica l (eight) Branch hours as needed for Nausea and Vomiting (N/V). proMETHazin 2021-11 Yes [id number] 25mg Take 1 [facility] e 25 mg 2-16 tablet by ity of tablet 00:00: mouth [place] 00 every 6 Medical (six) Branch hours as needed for N/V unresponsi ve to Ondansetro n. azithromyci 2021-11 Yes [id number] Take two [facility] n 250 mg 2-16 tablets my ity o f tablet 00:00: mouth [place] 00 today Medical followed Branch by one tablet daily for a total for 5 days. Do not take with ondansetro n (wait at least 12 hours after taking azithromyc in) predniSONE 2021-11 Yes [id number] Take one [facility] 20 mg 2-16 tablet by ity of tablet 00:00: mouth [place] 00 daily for Medical five days Branch ondansetron 2021-11 Yes [id number] 8mg Take 1 [facility] 8 mg 2-16 tablet by ity of disintegrat 00:00: mouth [place] ing tablet 00 every 8 Medica l (eight) Branch hours as needed for Nausea and Vomiting (N/V). proMETHazin 2021-11 Yes [id number] 25mg Take 1 [facility] e 25 mg 2-16 tablet by ity of tablet 00:00: mouth [place] 00 every 6 Medical (six) Branch hours as needed for N/V unresponsi ve to Ondansetro n. azithromyci 2021-11 Yes [id number] Take two [facility] n 250 mg 2-16 tablets my ity o f tablet 00:00: mouth [place] 00 today Medical followed Branch by one tablet daily for a total for 5 days. Do not take with ondansetro n (wait at least 12 hours after taking azithromyc in) predniSONE 2021-11 Yes [id number] Take one [facility] 20 mg 2-16 tablet by ity of tablet 00:00: mouth [place] 00 daily for Medical five days Branch ondansetron 2021-11 Yes [id number] 8mg Take 1 [facility] 8 mg 2-16 tablet by ity of disintegrat 00:00: mouth [place] ing tablet 00 every 8 Medica l (eight) Branch hours as needed for Nausea and Vomiting (N/V). proMETHazin 2021-11 Yes [id number] 25mg Take 1 [facility] 25 mg 2-16 tablet by [facility] of tablet 00:00: mouth [place] 00 every 6 Medical (six) Branch hours as needed for N/V unresponsi ve to Ondansetro n. azithromyci 2021-11 Yes [id number] Take two [facility] 250 mg 2-16 tablets my ity o f tablet 00:00: mouth [place] 00 today Medical followed Branch by one tablet daily for a total for 5 days. Do not take with ondansetro n (wait at least 12 hours after taking azithromyc in) predniSONE 2021-11 Yes [id number] Take one [facility] 20 mg 2-16 tablet by [facility] of tablet 00:00: mouth [place] 00 daily for Medical five days Branch ondansetron 2021-11 Yes [id number] 8mg Take 1 [facility] 8 mg 2-16 tablet by ity of disintegrat 00:00: mouth [place] ing tablet 00 every 8 Medica l (eight) Branch hours as needed for Nausea and Vomiting (N/V). proMETHazin 2021-11 Yes [id number] 25mg Take 1 [facility] 25 mg 2-16 tablet by [facility] of tablet 00:00: mouth [place] 00 every 6 Medical (six) Branch hours as needed for N/V unresponsi ve to Ondansetro n. azithromyci 2021-11 Yes [id number] Take two [facility] 250 mg 2-16 tablets my ity o f tablet 00:00: mouth [place] 00 today Medical followed Branch by one tablet daily for a total for 5 days. Do not take with ondansetro n (wait at least 12 hours after taking azithromyc in) predniSONE 2021-11 Yes [id number] Take one [facility] 20 mg 2-16 tablet by [facility] of tablet 00:00: mouth [place] 00 daily for Medical five days Branch ondansetron 2021-11 Yes [id number] 8mg Take 1 [facility] 8 mg 2-16 tablet by [facility]y of disintegrat 00:00: mouth [place] ing tablet 00 every 8 Medica l (eight) Branch hours as needed for Nausea and Vomiting (N/V). proMETHazin 2021-11 Yes [id number] 25mg Take 1 [facility] 25 mg 2-16 tablet by [facility] of tablet 00:00: mouth [place] 00 every 6 Medical (six) Branch hours as needed for N/V unresponsi ve to Ondansetro n. azithromyci 2021-11 Yes [id number] Take two [facility] 250 mg 2-16 tablets my ity o f tablet 00:00: mouth [place] 00 today Medical followed Branch by one tablet daily for a total for 5 days. Do not take with ondansetro n (wait at least 12 hours after taking azithromyc in) predniSONE 2021-11 Yes [id number] Take one [facility] 20 mg 2-16 tablet by [facility] of tablet 00:00: mouth [place] 00 daily for Medical five days Branch ondansetron 2021-11 Yes [id number] 8mg Take 1 [facility] 8 mg 2-16 tablet by [facility]y of disintegrat 00:00: mouth [place] ing tablet 00 every 8 Medica l (eight) Branch hours as needed for Nausea and Vomiting (N/V). proMETHazin 2021-11 Yes [id number] 25mg Take 1 [facility] 25 mg 2-16 tablet by [facility] of tablet 00:00: mouth [place] 00 every 6 Medical (six) Branch hours as needed for N/V unresponsi ve to Ondansetro n. azithromyci 2021-11 Yes [id number] Take two [facility] 250 mg 2-16 tablets my ity o f tablet 00:00: mouth [place] 00 today Medical followed Branch by one tablet daily for a total for 5 days. Do not take with ondansetro n (wait at least 12 hours after taking azithromyc in) predniSONE 2021-11 Yes [id number] Take one [facility] 20 mg 2-16 tablet by [facility] of tablet 00:00: mouth [place] 00 daily for Medical five days Branch ondansetron 2021-11 Yes [id number] 8mg Take 1 [facility] 8 mg 2-16 tablet by ity of disintegrat 00:00: mouth [place] ing tablet 00 every 8 Medica l (eight) Branch hours as needed for Nausea and Vomiting (N/V). proMETHazin 2021-11 Yes [id number] 25mg Take 1 [facility] 25 mg 2-16 tablet by it[facility] of tablet 00:00: mouth [place] 00 every 6 Medical (six) Branch hours as needed for N/V unresponsi ve to Ondansetro n. azithromyci 2021-11 Yes [id number] Take two [facility] 250 mg 2-16 tablets my ity o f tablet 00:00: mouth [place] 00 today Medical followed Branch by one tablet daily for a total for 5 days. Do not take with ondansetro n (wait at least 12 hours after taking azithromyc in) predniSONE 2021-11 Yes [id number] Take one [facility] 20 mg 2-16 tablet by [facility] of tablet 00:00: mouth [place] 00 daily for Medical five days Branch ondansetron 2021-11 Yes [id number] 8mg Take 1 [facility] 8 mg 2-16 tablet by it[facility] of disintegrat 00:00: mouth [place] ing tablet 00 every 8 Medica l (eight) Branch hours as needed for Nausea and Vomiting (N/V). proMETHazin 2021-11 Yes [id number] 25mg Take 1 [facility] 25 mg 2-16 tablet by [facility] of tablet 00:00: mouth [place] 00 every 6 Medical (six) Branch hours as needed for N/V unresponsi ve to Ondansetro n. azithromyci 2021-11 Yes [id number] Take two [facility] 250 mg 2-16 tablets my ity o f tablet 00:00: mouth [place] 00 today Medical followed Branch by one tablet daily for a total for 5 days. Do not take with ondansetro n (wait at least 12 hours after taking azithromyc in) predniSONE 2021-11 Yes [id number] Take one [facility] 20 mg 2-16 tablet by [facility] of tablet 00:00: mouth [place] 00 daily for Medical five days Branch ondansetron 2021-11 Yes [id number] 8mg Take 1 [facility] 8 mg 2-16 tablet by [facility] of disintegrat 00:00: mouth [place] ing tablet 00 every 8 Medica l (eight) Branch hours as needed for Nausea and Vomiting (N/V). proMETHazin 2021-11 Yes [id number] 25mg Take 1 [facility] 25 mg 2-16 tablet by [facility] of tablet 00:00: mouth [place] 00 every 6 Medical (six) Branch hours as needed for N/V unresponsi ve to Ondansetro n. azithromyci 2021-11 Yes [id number] Take two [facility] 250 mg 2-16 tablets my ity o f tablet 00:00: mouth [place] 00 today Medical followed Branch by one tablet daily for a total for 5 days. Do not take with ondansetro n (wait at least 12 hours after taking azithromyc in) ondansetron 2021-11 Yes [id number] 8mg Take 1 [facility] 8 mg 2-16 tablet by [facility] of disintegrat 00:00: mouth [place] ing tablet 00 every 8 Medica l (eight) Branch hours as needed for Nausea and Vomiting (N/V). proMETHazin 2021-11 Yes [id number] 25mg Take 1 [facility] 25 mg 2-16 tablet by [facility] of tablet 00:00: mouth [place] 00 every 6 Medical (six) Branch hours as needed for N/V unresponsi ve to Ondansetro n. azithromyci 2021-11 Yes [id number] Take two [facility] 250 mg 2-16 tablets my ity o f tablet 00:00: mouth [place] 00 today Medical followed Branch by one tablet daily for a total for 5 days. Do not take with ondansetro n (wait at least 12 hours after taking azithromyc in) ondansetron 2021-11 Yes [id number] 8mg Take 1 [facility] 8 mg 2-16 tablet by ity of disintegrat 00:00: mouth [place] ing tablet 00 every 8 Medica l (eight) Branch hours as needed for Nausea and Vomiting (N/V). proMETHazin 2021-11 Yes [id number] 25mg Take 1 [facility] 25 mg 2-16 tablet by it[facility] of tablet 00:00: mouth [place] 00 every 6 Medical (six) Branch hours as needed for N/V unresponsi ve to Ondansetro n. azithromyci 2021-11 Yes [id number] Take two [facility] 250 mg 2-16 tablets my ity o f tablet 00:00: mouth [place] 00 today Medical followed Branch by one tablet daily for a total for 5 days. Do not take with ondansetro n (wait at least 12 hours after taking azithromyc in) ondansetron 2021-11 Yes [id number] 8mg Take 1 [facility] 8 mg 2-16 tablet by it[facility] of disintegrat 00:00: mouth [place] ing tablet 00 every 8 Medica l (eight) Branch hours as needed for Nausea and Vomiting (N/V). ondansetron 2021-11 Yes [id number] 8mg Take 1 [facility] 8 mg 2-16 tablet by ity of disintegrat 00:00: mouth [place] ing tablet 00 every 8 Medica l (eight) Branch hours as needed for Nausea and Vomiting (N/V). ondansetron 2021-11 Yes [id number] 8mg Take 1 [facility] 8 mg 2-16 tablet by ity of disintegrat 00:00: mouth [place] ing tablet 00 every 8 Medica l (eight) Branch hours as needed for Nausea and Vomiting (N/V). ondansetron 2021-11 Yes [id number] 8mg Take 1 [facility] 8 mg 2-16 tablet by ity of disintegrat 00:00: mouth [place] ing tablet 00 every 8 Medica l (eight) Branch hours as needed for Nausea and Vomiting (N/V). ondansetron 2021-11 Yes [id number] 8mg Take 1 [facility] 8 mg 2-16 tablet by ity of disintegrat 00:00: mouth [place] ing tablet 00 every 8 Medica l (eight) Branch hours as needed for Nausea and Vomiting (N/V). ondansetron 2021-11 Yes [id number] 8mg Take 1 [facility] 8 mg 2-16 tablet by ity of disintegrat 00:00: mouth [place] ing tablet 00 every 8 Medica l (eight) Branch hours as needed for Nausea and Vomiting (N/V). ondansetron 2021-11 Yes [id number] 8mg Take 1 [facility] 8 mg 2-16 tablet by ity of disintegrat 00:00: mouth [place] ing tablet 00 every 8 Medica l (eight) Branch hours as needed for Nausea and Vomiting (N/V). ondansetron 2021-11 Yes [id number] 8mg Take 1 [facility] 8 mg 2-16 tablet by ity of disintegrat 00:00: mouth [place] ing tablet 00 every 8 Medica l (eight) Branch hours as needed for Nausea and Vomiting (N/V). ondansetron 2021-11 Yes [id number] 8mg Take 1 [facility] 8 mg 2-16 tablet by ity of disintegrat 00:00: mouth [place] ing tablet 00 every 8 Medica l (eight) Branch hours as needed for Nausea and Vomiting (N/V). ondansetron 2021-11 Yes [id number] 8mg Take 1 [facility] 8 mg 2-16 tablet by ity of disintegrat 00:00: mouth [place] ing tablet 00 every 8 Medica l (eight) Branch hours as needed for Nausea and Vomiting (N/V). ondansetron 2021-11 Yes [id number] 8mg Take 1 [facility] 8 mg 2-16 tablet by ity of disintegrat 00:00: mouth [place] ing tablet 00 every 8 Medica l (eight) Branch hours as needed for Nausea and Vomiting (N/V). ondansetron 2021-11 Yes [id number] 8mg Take 1 [facility] 8 mg 2-16 tablet by ity of disintegrat 00:00: mouth [place] ing tablet 00 every 8 Medica l (eight) Branch hours as needed for Nausea and Vomiting (N/V). ondansetron 2021-11 Yes [id number] 8mg Take 1 [facility] 8 mg 2-16 tablet by ity of disintegrat 00:00: mouth [place] ing tablet 00 every 8 Medica l (eight) Branch hours as needed for Nausea and Vomiting (N/V). ondansetron 2021-11 Yes [id number] 8mg Take 1 [facility] 8 mg 2-16 tablet by ity of disintegrat 00:00: mouth [place] ing tablet 00 every 8 Medica l (eight) Branch hours as needed for Nausea and Vomiting (N/V). ondansetron 2021-11- No [id number] 8mg Take 1 [facility] 8 mg 2-16 02-08 tablet by ity of disintegrat 00:00: 00:00 [place] tablet 00 :00 every 8 Medica l (eight) Branch hours as needed for Nausea and Vomiting (N/V). proMETHazin 2021-11- No [id number] 25mg Take 1 [facility] 25 mg 2-16 -12 tablet by ity of tablet 00:00: 00:00 mouth [place] 00 :00 every 6 Medical (six) Branch hours as needed for N/V unresponsi ve to Ondansetro n. azithromyci 2021-11- No [id number] Take two [facility] n 250 mg 2-16 -12 tablets my ity of tablet 00:00: 00:00 mouth [place] 00 :00 today Medical followed Branch by one tablet daily for a total for 5 days. Do not take with ondansetro n (wait at least 12 hours after taking azithromyc in) proMETHazin 2021-11- No [id number] 25mg Take 1 [facility] 25 mg 2-16 -12 tablet by ity of tablet 00:00: 00:00 mouth [place] 00 :00 every 6 Medical (six) Branch hours as needed for N/V unresponsi ve to Ondansetro n. azithromyci 2021-11- No [id number] Take two [facility] 250 mg 2-16 -12 tablets my ity of tablet 00:00: 00:00 mouth [place] 00 :00 today Medical followed Branch by one tablet daily for a total for 5 days. Do not take with ondansetro n (wait at least 12 hours after taking azithromyc in) predniSONE 2021-11- No [id number] Take one [facility] 20 mg 2-16 -04 tablet by ity of tablet 00:00: 00:00 mouth [place] 00 :00 daily for Medical five days Branch JARDIANCE 2021-11 Yes [id number] TAKE 1 Un lesly 10 mg 1-28 TABLET BY ity of 00:00: MOUTH ONCE [place] 00 DAILY IN [facility] MORNING JARDIANCE 2021-11 Yes [id number] TAKE 1 Un lesly 10 mg 1-28 TABLET BY ity of 00:00: MOUTH ONCE [place] 00 DAILY IN [facility] MORNING JARDIANCE 2021-11 Yes [id number] TAKE 1 Un lesly 10 mg 1-28 TABLET BY ity of 00:00: MOUTH ONCE [place] 00 DAILY IN [facility] MORNING JARDIANCE 2021-11 Yes [id number] TAKE 1 Un lesly 10 mg 1-28 TABLET BY ity of 00:00: MOUTH ONCE [place] 00 DAILY IN [facility] MORNING JARDIANCE 2021-11 Yes [id number] TAKE 1 Un lesly 10 mg 1-28 TABLET BY ity of 00:00: MOUTH ONCE [place] 00 DAILY IN [facility] MORNING JARDIANCE 2021-11 Yes [id number] TAKE 1 Un lesly 10 mg 1-28 TABLET BY ity of 00:00: MOUTH ONCE [place] 00 DAILY IN [facility] MORNING JARDIANCE 2021-11 Yes [id number] TAKE 1 Un lesly 10 mg 1-28 TABLET BY ity of 00:00: MOUTH ONCE [place] 00 DAILY IN [facility] MORNING JARDIANCE 2021-11 Yes [id number] TAKE 1 Un lesly 10 mg 1-28 TABLET BY ity of 00:00: MOUTH ONCE [place] 00 DAILY IN [facility] MORNING JARDIANCE 2021-11 Yes [id number] TAKE 1 Un lesly 10 mg 1-28 TABLET BY ity of 00:00: MOUTH ONCE [place] 00 DAILY IN [facility] MORNING JARDIANCE 2021-11 Yes [id number] TAKE 1 Un lesly 10 mg 1-28 TABLET BY ity of 00:00: MOUTH ONCE [place] 00 DAILY IN [facility] MORNING JARDIANCE 2021-11 Yes [id number] TAKE 1 Un lesly 10 mg 1-28 TABLET BY ity of 00:00: MOUTH ONCE [place] 00 DAILY IN [facility] MORNING JARDIANCE 2021-11 Yes [id number] TAKE 1 Un lesly 10 mg 1-28 TABLET BY ity of 00:00: MOUTH ONCE [place] 00 DAILY IN [facility] MORNING JARDIANCE 2021-11 Yes [id number] TAKE 1 Un lesly 10 mg 1-28 TABLET BY ity of 00:00: MOUTH ONCE [place] 00 DAILY IN [facility] JARDIANCE 2021-11 Yes [id number] TAKE 1 Un lesly 10 mg 1-28 TABLET BY ity of 00:00: MOUTH ONCE [place] 00 DAILY IN [facility] JARDIANCE 2021-11 Yes [id number] TAKE 1 Un lesly 10 mg 1-28 TABLET BY ity of 00:00: MOUTH ONCE [place] 00 DAILY IN [facility] JARDIANCE 2021-11 Yes [id number] TAKE 1 Un lesly 10 mg 1-28 TABLET BY ity of 00:00: MOUTH ONCE [place] 00 DAILY IN [facility] JARDIANCE 2021-11 Yes [id number] TAKE 1 Un lesyl 10 mg 1-28 TABLET BY ity of 00:00: MOUTH ONCE [place] 00 DAILY IN [facility] JARDIANCE 2021-11 Yes [id number] TAKE 1 Un lesly 10 mg 1-28 TABLET BY ity of 00:00: MOUTH ONCE [place] 00 DAILY IN [facility] JARDIANCE 2021-11 Yes [id number] TAKE 1 Un lesly 10 mg 1-28 TABLET BY ity of 00:00: MOUTH ONCE [place] 00 DAILY IN [facility] JARDIANCE 2021-11 Yes [id number] TAKE 1 Un lesly 10 mg 1-28 TABLET BY ity of 00:00: MOUTH ONCE [place] 00 DAILY IN [facility] JARDIANCE 2021-11- No [id number] TAKE 1 U nivers 10 mg 1-28 12-23 TABLET BY ity of 00:00: 00:00 MOUTH ONCE [place] 00 :00 DAILY IN [facility] JARDIANCE 2021-11- No [id number] TAKE 1 U nivers 10 mg 1-28 12-23 TABLET BY ity of 00:00: 00:00 MOUTH ONCE [place] 00 :00 DAILY IN [facility] JARDIANCE 2021-11- No [id number] TAKE 1 U nivers 10 mg 1-28 12-23 TABLET BY ity of 00:00: 00:00 MOUTH ONCE [place] 00 :00 DAILY IN [facility] JARDIANCE 2021-11- No [id number] TAKE 1 U nivers 10 mg 1-28 12-23 TABLET BY ity of 00:00: 00:00 MOUTH ONCE [place] 00 :00 DAILY IN [facility] JARDIANCE 2021-11- No [id number] TAKE 1 U nivers 10 mg 1-28 12-23 TABLET BY ity of 00:00: 00:00 MOUTH ONCE [place] 00 :00 DAILY IN [facility] MORNING JARDIANCE 2021-11- No [id number] TAKE 1 U nivers 10 mg 1-28 12-23 TABLET BY ity of 00:00: 00:00 MOUTH ONCE [place] 00 :00 DAILY IN [facility] MORNING JARDIANCE 2021-11- No [id number] TAKE 1 U nivers 10 mg 1-28 12-23 TABLET BY ity of 00:00: 00:00 MOUTH ONCE [place] 00 :00 DAILY IN [facility] acetamino 2021-11 Yes 1 tablet Un lesly en 325 mg 1-17 as needed ity o f tablet 13:52: [address] 2021-11 Yes 1 tablet Un lesly en 325 mg 1-17 as needed ity o f tablet 13:52: [address] [facility] Yes 1 tablet Un lesly en 325 mg 1-17 as needed ity o f tablet 13:52: [address] 2021-11 Yes 1 tablet Un lesly en 325 mg 1-17 as needed ity o f tablet 13:52: [address] 2021-11 Yes 1 tablet Un lesly en 325 mg 1-17 as needed ity o f tablet 13:52: [address] 2021-11 Yes 1 tablet Un lesly en 325 mg 1-17 as needed ity o f tablet 13:52: [address] 2021-11 Yes 1 tablet Un lesly en 325 mg 1-17 as needed ity o f tablet 13:52: [address] acetamino 2021-11 Yes 1 tablet Un lesly en 325 mg 1-17 as needed ity o f tablet 13:52: [address] 2021-11 Yes 1 tablet Un lesly en 325 mg 1-17 as needed ity o f tablet 13:52: [address] acetamino 2021-11 Yes 1 tablet Un lesly en 325 mg 1-17 as needed ity o f tablet 13:52: [address] 2021-11 Yes 1 tablet Un lesly en 325 mg 1-17 as needed ity o f tablet 13:52: [address] acetaminoph 2021-11 Yes 1 tablet Un lesly [place] 325 mg 1-17 as needed ity o f tablet 13:52: [address] acetaminoph 2021-11 Yes 1 tablet Un lesly en 325 mg 1-17 as needed ity o f tablet 13:52: [address] acetaminoph 2021-11 Yes 1 tablet Un lesly [place] 325 mg 1-17 as needed ity o f tablet 13:52: [address] acetaminoph 2021-11 Yes 1 tablet Un lesly [place] 325 mg 1-17 as needed ity o f tablet 13:52: [address] acetaminoph 2021-11 Yes 1 tablet Un lesly [place] 325 mg 1-17 as needed ity o f tablet 13:52: [address] acetaminoph 2021-11 Yes 1 tablet Un lesly [place] 325 mg 1-17 as needed ity o f tablet 13:52: [address] acetaminoph 2021-11 Yes 1 tablet Un lesly en 325 mg 1-17 as needed ity o f tablet 13:52: [address] acetaminoph 2021-11 Yes 1 tablet Un lesly en 325 mg 1-17 as needed ity o f tablet 13:52: [address] acetaminoph 2021-11 Yes 1 tablet Un lesly [place] 325 mg 1-17 as needed ity o f tablet 13:52: [address] acetaminoph 2021-11 Yes 1 tablet Un lesly [place] 325 mg 1-17 as needed ity o f tablet 13:52: [address] acetaminoph 2021-11 Yes 1 tablet Un lesly [place] 325 mg 1-17 as needed ity o f tablet 13:52: [address] acetaminoph 2021-11 Yes 1 tablet Un lesly [place] 325 mg 1-17 as needed ity o f tablet 13:52: [address] acetaminoph 2021-11 Yes 1 tablet Un lesly [place] 325 mg 1-17 as needed ity o f tablet 13:52: [address] acetaminoph 2021-11 Yes 1 tablet Un lesly en 325 mg 1-17 as needed ity o f tablet 13:52: [address] acetaminoph 2021-11 Yes 1 tablet Un lesly [place] 325 mg 1-17 as needed ity o f tablet 13:52: [address] acetaminoph 2021-11 Yes 1 tablet Un lesly [place] 325 mg 1-17 as needed ity o f tablet 13:52: [address] acetaminoph 2021-11 Yes 1 tablet Un lesly [place] 325 mg 1-17 as needed ity o f tablet 13:52: [address] acetaminoph 2021-11 Yes 1 tablet Un lesly [place] 325 mg 1-17 as needed ity o f tablet 13:52: [address] acetaminoph 2021-11 Yes 1 tablet Un lesly [place] 325 mg 1-17 as needed ity o f tablet 13:52: [address] acetaminoph 2021-11 Yes 1 tablet Un lesly [place] 325 mg 1-17 as needed ity o f tablet 13:52: [address] acetaminoph 2021-11 Yes 1 tablet Un lesly [place] 325 mg 1-17 as needed ity o f tablet 13:52: [address] acetaminoph 2021-11 Yes 1 tablet Un lesly [place] 325 mg 1-17 as needed ity o f tablet 13:52: [address] acetaminoph 2021-11 Yes 1 tablet Un lesly [place] 325 mg 1-17 as needed ity o f tablet 13:52: [address] acetaminoph 2021-11 Yes 1 tablet Un lesly [place] 325 mg 1-17 as needed ity o f tablet 13:52: [address] acetaminoph 2021-11 Yes 1 tablet Un lesly [place] 325 mg 1-17 as needed ity o f tablet 13:52: [address] acetaminoph 2021-11 Yes 1 tablet Un lesly [place] 325 mg 1-17 as needed ity o f tablet 13:52: [address] acetaminoph 2021-11 Yes 1 tablet Un lesly [place] 325 mg 1-17 as needed ity o f tablet 13:52: [address] acetaminoph 2021-11 Yes 1 tablet Un lesly [place] 325 mg 1-17 as needed ity o f tablet 13:52: [address] acetaminoph 2021-11 Yes 1 tablet Un lesly [place] 325 mg 1-17 as needed ity o f tablet 13:52: [address] acetaminoph 2021-11 Yes 1 tablet Un lesly [place] 325 mg 1-17 as needed ity o f tablet 13:52: [address] acetaminoph 2021-11 Yes 1 tablet Un lesly [place] 325 mg 1-17 as needed ity o f tablet 13:52: [address] acetamino 2021-11 Yes 1 tablet Un lesly [place] 325 mg 1-17 as needed ity o f tablet 13:52: [address] acetamino 2021-11 Yes 1 tablet Un lesly [place] 325 mg 1-17 as needed ity o f tablet 13:52: [address] acetamino 2021-11 Yes 1 tablet Un lesly [place] 325 mg 1-17 as needed ity o f tablet 13:52: [address] [facility] Yes 1 tablet Un lesly [place] 325 mg 1-17 as needed ity o f tablet 13:52: [address] acetamino 2021-11 Yes 1 tablet Un lesly [place] 325 mg 1-17 as needed ity o f tablet 13:52: [address] [facility]-11 Yes 1 tablet Un lesly [place] 325 mg 1-17 as needed ity o f tablet 13:52: [address] acetamino 2021-11 Yes 1 tablet Un lesly [place] 325 mg 1-17 as needed ity o f tablet 13:52: [address] acetamino 2021-11 Yes 1 tablet Un lesly [place] 325 mg 1-17 as needed ity o f tablet 13:52: [address] acetaminoph 2021-11 Yes 1 tablet Un lesly [place] 325 mg 1-17 as needed ity o f tablet 13:52: [address] acetaminoph 2021-11 Yes 1 tablet Un lesly [place] 325 mg 1-17 as needed ity o f tablet 13:52: [address] acetaminoph 2021-11 Yes 1 tablet Un lesly en 325 mg 1-17 as needed ity o f tablet 13:52: [address] acetamino 2021-11 Yes 1 tablet Un lesly en 325 mg 1-17 as needed ity o f tablet 13:52: [address] acetaminoph 2021-11 Yes 1 tablet Un lesly en 325 mg 1-17 as needed ity o f tablet 13:52: [place] [address] Medical Branch metoprolol 2021-11 Yes [id number] 25mg Take 0.5 [facility] succinate 1-17 tablets by ity of XL 50 mg 24 00:00: mouth in [place] hr tablet 00 the Medical morning. Branch metoprolol 2021-11 Yes [id number] 25mg Take 0.5 [facility] succinate 1-17 tablets by ity of XL 50 mg 24 00:00: mouth in [place] hr tablet 00 the Medical morning. Branch metoprolol 2021-11 Yes [id number] 25mg Take 0.5 [facility] succinate 1-17 tablets by ity of XL 50 mg 24 00:00: mouth in [place] hr tablet 00 the Medical morning. Branch metoprolol 2021-11 Yes [id number] 25mg Take 0.5 [facility] succinate 1-17 tablets by ity of XL 50 mg 24 00:00: mouth in [place] hr tablet 00 the Medical morning. Branch metoprolol 2021-11 Yes [id number] 25mg Take 0.5 [facility] succinate 1-17 tablets by ity of XL 50 mg 24 00:00: mouth in [place] hr tablet 00 the Medical morning. Branch metoprolol 2021-11 Yes [id number] 25mg Take 0.5 [facility] succinate 1-17 tablets by ity of XL 50 mg 24 00:00: mouth in [place] hr tablet 00 the Medical morning. Branch metoprolol 2021-11 Yes [id number] 25mg Take 0.5 [facility] succinate 1-17 tablets by ity of XL 50 mg 24 00:00: mouth in [place] hr tablet 00 the Medical morning. Branch metoprolol 2021-11 Yes [id number] 25mg Take 0.5 [facility] succinate 1-17 tablets by ity of XL 50 mg 24 00:00: mouth in [place] hr tablet 00 the Medical morning. Branch metoprolol 2021-11 Yes [id number] 25mg Take 0.5 [facility] succinate 1-17 tablets by ity of XL 50 mg 24 00:00: mouth in [place] hr tablet 00 the Medical morning. Branch metoprolol 2021-11 Yes [id number] 25mg Take 0.5 [facility] succinate 1-17 tablets by ity of XL 50 mg 24 00:00: mouth in [place] hr tablet 00 the Medical morning. Branch metoprolol 2021-11 Yes [id number] 25mg Take 0.5 [facility] succinate 1-17 tablets by ity of XL 50 mg 24 00:00: mouth in [place] hr tablet 00 the Medical morning. Branch metoprolol 2021-11 Yes [id number] 25mg Take 0.5 [facility] succinate 1-17 tablets by ity of XL 50 mg 24 00:00: mouth in [place] hr tablet 00 the Medical morning. Branch metoprolol 2021-11 Yes [id number] 25mg Take 0.5 [facility] succinate 1-17 tablets by ity of XL 50 mg 24 00:00: mouth in [place] hr tablet 00 the Medical morning. Branch metoprolol 2021-11 Yes [id number] 25mg Take 0.5 [facility] succinate 1-17 tablets by ity of XL 50 mg 24 00:00: mouth in [place] hr tablet 00 the Medical morning. Branch metoprolol 2021-11 Yes [id number] 25mg Take 0.5 [facility] succinate 1-17 tablets by ity of XL 50 mg 24 00:00: mouth in [place] hr tablet 00 the Medical morning. Branch metoprolol 2021-11 Yes [id number] 25mg Take 0.5 [facility] succinate 1-17 tablets by ity of XL 50 mg 24 00:00: mouth in [place] hr tablet 00 the Medical morning. Branch metoprolol 2021-11 Yes [id number] 25mg Take 0.5 [facility] succinate 1-17 tablets by ity of XL 50 mg 24 00:00: mouth in [place] hr tablet 00 the Medical morning. Branch metoprolol 2021-11 Yes [id number] 25mg Take 0.5 [facility] succinate 1-17 tablets by ity of XL 50 mg 24 00:00: mouth in [place] hr tablet 00 the Medical morning. Branch metoprolol 2021-11 Yes [id number] 25mg Take 0.5 [facility] succinate 1-17 tablets by ity of XL 50 mg 24 00:00: mouth in [place] hr tablet 00 the Medical morning. Branch metoprolol 2021-11 Yes [id number] 25mg Take 0.5 [facility] succinate 1-17 tablets by ity of XL 50 mg 24 00:00: mouth in [place] hr tablet 00 the Medical morning. Branch metoprolol 2021-11 Yes [id number] 25mg Take 0.5 [facility] succinate 1-17 tablets by ity of XL 50 mg 24 00:00: mouth in [place] hr tablet 00 the Medical morning. Branch metoprolol 2021-11 Yes [id number] 25mg Take 0.5 [facility] succinate 1-17 tablets by [facility] of XL 50 mg 24 00:00: mouth in [place] hr tablet 00 the Medical morning. Branch metoprolol 2021-11 Yes [id number] 25mg Take 0.5 [facility] succinate 1-17 tablets by [facility] of XL 50 mg 24 00:00: mouth in [place] hr tablet 00 the Medical morning. Branch metoprolol 2021-11 Yes [id number] 25mg Take 0.5 [facility] succinate 1-17 tablets by it[facility] of XL 50 mg 24 00:00: mouth in [place] hr tablet 00 the Medical morning. Branch metoprolol 2021-11 Yes [id number] 25mg Take 0.5 [facility] succinate 1-17 tablets by [facility] of XL 50 mg 24 00:00: mouth in [place] hr tablet 00 the Medical morning. Branch metoprolol 2021-11 Yes [id number] 25mg Take 0.5 [facility] succinate 1-17 tablets by [facility] of XL 50 mg 24 00:00: mouth in [place] hr tablet 00 the Medical morning. Branch metoprolol 2021-11 Yes [id number] 25mg Take 0.5 [facility] succinate 1-17 tablets by [facility] of XL 50 mg 24 00:00: mouth in [place] hr tablet 00 the Medical morning. Branch metoprolol 2021-11 Yes [id number] 25mg Take 0.5 [facility] succinate 1-17 tablets by [facility] of XL 50 mg 24 00:00: mouth in [place] hr tablet 00 the Medical morning. Branch metoprolol 2021-11 Yes [id number] 25mg Take 0.5 [facility] succinate 1-17 tablets by it[facility] of XL 50 mg 24 00:00: mouth in [place] hr tablet 00 the Medical morning. Branch metoprolol 2021-11 Yes [id number] 25mg Take 0.5 [facility] succinate 1-17 tablets by [facility] of XL 50 mg 24 00:00: mouth in [place] hr tablet 00 the Medical morning. Branch metoprolol 2021-11 Yes [id number] 25mg Take 0.5 [facility] succinate 1-17 tablets by it[facility] of XL 50 mg 24 00:00: mouth in [place] hr tablet 00 the Medical morning. Branch metoprolol 2021-11 Yes [id number] 25mg Take 0.5 [facility] succinate 1-17 tablets by [facility] of XL 50 mg 24 00:00: mouth in [place] hr tablet 00 the morning. Branch metoprolol 2021-11 Yes [id number] 25mg Take 0.5 [facility] succinate 1-17 tablets by it[facility] of XL 50 mg 24 00:00: mouth in [place] hr tablet 00 the morning. Branch metoprolol 2021-11 Yes [id number] 25mg Take 0.5 [facility] succinate 1-17 tablets by it[facility] of XL 50 mg 24 00:00: mouth in [place] hr tablet 00 the morning. Branch famotidine 2021-11- No [id number] 20mg Take 1 U nivers 20 mg 1-17 11-13 tablet by ity of tablet 00:00: 05:59 mouth in [place] 00 :00 the Medical morning Branch and 1 tablet in the evening. Do all this for 360 days. famotidine 2021-11- No [id number] 20mg Take 1 U nivers 20 mg 1-17 11-13 tablet by ity of tablet 00:00: 05:59 mouth in [place] 00 :00 the Medical morning Branch and 1 tablet in the evening. Do all this for 360 days. famotidine 2021-11- No [id number] 20mg Take 1 U nivers 20 mg 1-17 11-13 tablet by ity of tablet 00:00: 05:59 mouth in [place] 00 :00 the Medical morning Branch and 1 tablet in the evening. Do all this for 360 days. famotidine 2021-11- No [id number] 20mg Take 1 U nivers 20 mg 1-17 11-13 tablet by ity of tablet 00:00: 05:59 mouth in [place] 00 :00 the Medical morning Branch and 1 tablet in the evening. Do all this for 360 days. famotidine 2021-11- No [id number] 20mg Take 1 U nivers 20 mg 1-17 11-13 tablet by ity of tablet 00:00: 05:59 mouth in [place] 00 :00 the Medical morning Branch and 1 tablet in the evening. Do all this for 360 days. famotidine 2021-11- No [id number] 20mg Take 1 U nivers 20 mg 1-17 11-13 tablet by ity of tablet 00:00: 05:59 mouth in [place] 00 :00 the Medical morning Branch and 1 tablet in the evening. Do all this for 360 days. famotidine 2021-11- No [id number] 20mg Take 1 U nivers 20 mg 1-17 11-13 tablet by ity of tablet 00:00: 05:59 mouth in [place] 00 :00 the Medical morning Branch and 1 tablet in the evening. Do all this for 360 days. famotidine 2021-11- No [id number] 20mg Take 1 U nivers 20 mg 1-17 11-13 tablet by ity of tablet 00:00: 05:59 mouth in [place] 00 :00 the Medical morning Branch and 1 tablet in the evening. Do all this for 360 days. famotidine 2021-11- No [id number] 20mg Take 1 U nivers 20 mg 1-17 11-13 tablet by ity of tablet 00:00: 05:59 mouth in [place] 00 :00 the [facility] Branch and 1 tablet in the evening. Do all this for 360 days. famotidine 2021-11- No [id number] 20mg Take 1 U nivers 20 mg 1-17 11-13 tablet by ity of tablet 00:00: 05:59 mouth in [place] 00 :00 the [facility] Branch and 1 tablet in the evening. Do all this for 360 days. famotidine 2021-11- No [id number] 20mg Take 1 U nivers 20 mg 1-17 11-13 tablet by ity of tablet 00:00: 05:59 mouth in [place] 00 :00 the [facility] morning Branch and 1 tablet in the evening. Do all this for 360 days. famotidine 2021-11- No [id number] 20mg Take 1 U nivers 20 mg 1-17 11-13 tablet by ity of tablet 00:00: 05:59 mouth in [place] 00 :00 the [facility] morning Branch and 1 tablet in the evening. Do all this for 360 days. famotidine 2021-11- No [id number] 20mg Take 1 U nivers 20 mg 1-17 11-13 tablet by ity of tablet 00:00: 05:59 mouth in [place] 00 :00 the Medical morning Branch and 1 tablet in the evening. Do all this for 360 days. famotidine 2021-11- No [id number] 20mg Take 1 U nivers 20 mg 1-17 11-13 tablet by ity of tablet 00:00: 05:59 mouth in [place] 00 :00 the Medical morning Branch and 1 tablet in the evening. Do all this for 360 days. famotidine 2021-11- No [id number] 20mg Take 1 U nivers 20 mg 1-17 11-13 tablet by ity of tablet 00:00: 05:59 mouth in [place] 00 :00 the Medical morning Branch and 1 tablet in the evening. Do all this for 360 days. famotidine 2021-11- No [id number] 20mg Take 1 U nivers 20 mg 1-17 11-13 tablet by ity of tablet 00:00: 05:59 mouth in [place] 00 :00 the Medical morning Branch and 1 tablet in the evening. Do all this for 360 days. famotidine 2021-11- No [id number] 20mg Take 1 U nivers 20 mg 1-17 11-13 tablet by ity of tablet 00:00: 05:59 mouth in [place] 00 :00 the Medical morning Branch and 1 tablet in the evening. Do all this for 360 days. famotidine 2021-11- No [id number] 20mg Take 1 U nivers 20 mg 1-17 11-13 tablet by ity of tablet 00:00: 05:59 mouth in [place] 00 :00 the Medical morning Branch and 1 tablet in the evening. Do all this for 360 days. famotidine 2021-11- No [id number] 20mg Take 1 U nivers 20 mg 1-17 11-13 tablet by ity of tablet 00:00: 05:59 mouth in [place] 00 :00 the Medical morning Branch and 1 tablet in the evening. Do all this for 360 days. famotidine 2021-11- No [id number] 20mg Take 1 U nivers 20 mg 1-17 11-13 tablet by ity of tablet 00:00: 05:59 mouth in [place] 00 :00 the Medical morning Branch and 1 tablet in the evening. Do all this for 360 days. famotidine 2021-11- No [id number] 20mg Take 1 U nivers 20 mg 1-17 11-13 tablet by ity of tablet 00:00: 05:59 mouth in [place] 00 :00 the Medical morning Branch and 1 tablet in the evening. Do all this for 360 days. famotidine 2021-11- No [id number] 20mg Take 1 U nivers 20 mg 1-17 11-13 tablet by ity of tablet 00:00: 05:59 mouth in [place] 00 :00 the Medical morning Branch and 1 tablet in the evening. Do all this for 360 days. famotidine 2021-11- No [id number] 20mg Take 1 U nivers 20 mg 1-17 11-13 tablet by ity of tablet 00:00: 05:59 mouth in [place] 00 :00 the [facility] morning Branch and 1 tablet in the evening. Do all this for 360 days. famotidine 2021-11- No [id number] 20mg Take 1 U nivers 20 mg 1-17 11-13 tablet by ity of tablet 00:00: 05:59 mouth in [place] 00 :00 the [facility] Branch and 1 tablet in the evening. Do all this for 360 days. famotidine 2021-11- No [id number] 20mg Take 1 U nivers 20 mg 1-17 11-13 tablet by ity of tablet 00:00: 05:59 mouth in [place] 00 :00 the [facility] Branch and 1 tablet in the evening. Do all this for 360 days. famotidine 2021-11- No [id number] 20mg Take 1 U nivers 20 mg 1-17 11-13 tablet by ity of tablet 00:00: 05:59 mouth in [place] 00 :00 the [facility] Branch and 1 tablet in the evening. Do all this for 360 days. famotidine 2021-11- No [id number] 20mg Take 1 U nivers 20 mg 1-17 11-13 tablet by ity of tablet 00:00: 05:59 mouth in [place] 00 :00 the [facility] morning Branch and 1 tablet in the evening. Do all this for 360 days. famotidine 2021-11- No [id number] 20mg Take 1 U nivers 20 mg 1-17 11-13 tablet by ity of tablet 00:00: 05:59 mouth in [place] 00 :00 the [facility] morning Branch and 1 tablet in the evening. Do all this for 360 days. famotidine 2021-11- No [id number] 20mg Take 1 U nivers 20 mg 1-17 11-13 tablet by ity of tablet 00:00: 05:59 mouth in [place] 00 :00 the [facility] morning Branch and 1 tablet in the evening. Do all this for 360 days. famotidine 2021-11- No [id number] 20mg Take 1 U nivers 20 mg 1-17 11-13 tablet by ity of tablet 00:00: 05:59 mouth in [place] 00 :00 the [facility] Branch and 1 tablet in the evening. Do all this for 360 days. famotidine 2021-11- No [id number] 20mg Take 1 U nivers 20 mg 1-17 11-13 tablet by ity of tablet 00:00: 05:59 mouth in [place] 00 :00 the [facility] Branch and 1 tablet in the evening. Do all this for 360 days. famotidine 2021-11- No [id number] 20mg Take 1 U nivers 20 mg 1-17 11-13 tablet by ity of tablet 00:00: 05:59 mouth in [place] 00 :00 the [facility] and 1 tablet in the evening. Do all this for 360 days. famotidine 2021-11- No [id number] 20mg Take 1 U nivers 20 mg 1-17 11-13 tablet by ity of tablet 00:00: 05:59 mouth in [place] 00 :00 the [facility] and 1 tablet in the evening. Do all this for 360 days. famotidine 2021-11- No [id number] 20mg Take 1 U nivers 20 mg 1-17 11-13 tablet by ity of tablet 00:00: 05:59 mouth in [place] 00 :00 the [facility] and 1 tablet in the evening. Do all this for 360 days. famotidine 2021-11- No [id number] 20mg Take 1 U nivers 20 mg 1-17 11-13 tablet by ity of tablet 00:00: 05:59 mouth in [place] 00 :00 the [facility] and 1 tablet in the evening. Do all this for 360 days. famotidine 2021-11- No [id number] 20mg Take 1 U nivers 20 mg 1-17 11-13 tablet by ity of tablet 00:00: 05:59 mouth in [place] 00 :00 the Medical morning Branch and 1 tablet in the evening. Do all this for 360 days. famotidine 2021-11- No [id number] 20mg Take 1 U nivers 20 mg 1-17 11-13 tablet by ity of tablet 00:00: 05:59 mouth in [place] 00 :00 the Medical morning Branch and 1 tablet in the evening. Do all this for 360 days. famotidine 2021-11- No [id number] 20mg Take 1 U nivers 20 mg 1-17 11-13 tablet by ity of tablet 00:00: 05:59 mouth in [place] 00 :00 the Medical morning Branch and 1 tablet in the evening. Do all this for 360 days. famotidine 2021-11- No [id number] 20mg Take 1 U nivers 20 mg 1-17 11-13 tablet by ity of tablet 00:00: 05:59 mouth in [place] 00 :00 the Medical morning Branch and 1 tablet in the evening. Do all this for 360 days. famotidine 2021-11- No [id number] 20mg Take 1 U nivers 20 mg 1-17 11-13 tablet by ity of tablet 00:00: 05:59 mouth in [place] 00 :00 the Medical morning Branch and 1 tablet in the evening. Do all this for 360 days. famotidine 2021-11- No [id number] 20mg Take 1 U nivers 20 mg 1-17 11-13 tablet by ity of tablet 00:00: 05:59 mouth in [place] 00 :00 the Medical morning Branch and 1 tablet in the evening. Do all this for 360 days. famotidine 2021-11- No [id number] 20mg Take 1 U nivers 20 mg 1-17 11-13 tablet by ity of tablet 00:00: 05:59 mouth in [place] 00 :00 the Medical morning Branch and 1 tablet in the evening. Do all this for 360 days. famotidine 2021-11- No [id number] 20mg Take 1 U nivers 20 mg 1-17 11-13 tablet by ity of tablet 00:00: 05:59 mouth in [place] 00 :00 the Medical morning Branch and 1 tablet in the evening. Do all this for 360 days. famotidine 2021-11- No [id number] 20mg Take 1 U nivers 20 mg 1-17 11-13 tablet by ity of tablet 00:00: 05:59 mouth in [place] 00 :00 the Medical morning Branch and 1 tablet in the evening. Do all this for 360 days. famotidine 2021-11- No [id number] 20mg Take 1 U nivers 20 mg 1-17 11-13 tablet by ity of tablet 00:00: 05:59 mouth in [place] 00 :00 the [facility] morning Branch and 1 tablet in the evening. Do all this for 360 days. famotidine 2021-11- No [id number] 20mg Take 1 U nivers 20 mg 1-17 11-13 tablet by ity of tablet 00:00: 05:59 mouth in [place] 00 :00 the [facility] Branch and 1 tablet in the evening. Do all this for 360 days. famotidine 2021-11- No [id number] 20mg Take 1 U nivers 20 mg 1-17 11-13 tablet by ity of tablet 00:00: 05:59 mouth in [place] 00 :00 the [facility] Branch and 1 tablet in the evening. Do all this for 360 days. famotidine 2021-11- No [id number] 20mg Take 1 U nivers 20 mg 1-17 11-13 tablet by ity of tablet 00:00: 05:59 mouth in [place] 00 :00 the [facility] Branch and 1 tablet in the evening. Do all this for 360 days. famotidine 2021-11- No [id number] 20mg Take 1 U nivers 20 mg 1-17 11-13 tablet by ity of tablet 00:00: 05:59 mouth in [place] 00 :00 the [facility] Branch and 1 tablet in the evening. Do all this for 360 days. famotidine 2021-11- No [id number] 20mg Take 1 U nivers 20 mg 1-17 11-13 tablet by ity of tablet 00:00: 05:59 mouth in [place] 00 :00 the [facility] Branch and 1 tablet in the evening. Do all this for 360 days. famotidine 2021-11- No [id number] 20mg Take 1 U nivers 20 mg 1-17 11-13 tablet by ity of tablet 00:00: 05:59 mouth in [place] 00 :00 the Medical morning Branch and 1 tablet in the evening. Do all this for 360 days. famotidine 2021-11- No [id number] 20mg Take 1 U nivers 20 mg 1-17 11-13 tablet by ity of tablet 00:00: 05:59 mouth in [place] 00 :00 the Medical morning Branch and 1 tablet in the evening. Do all this for 360 days. famotidine 2021-11- No [id number] 20mg Take 1 U nivers 20 mg 1-17 11-13 tablet by ity of tablet 00:00: 05:59 mouth in [place] 00 :00 the Medical morning Branch and 1 tablet in the evening. Do all this for 360 days. famotidine 2021-11- No [id number] 20mg Take 1 U nivers 20 mg 1-17 11-13 tablet by ity of tablet 00:00: 05:59 mouth in [place] 00 :00 the Medical morning Branch and 1 tablet in the evening. Do all this for 360 days. famotidine 2021-11- No [id number] 20mg Take 1 U nivers 20 mg 1-17 11-13 tablet by ity of tablet 00:00: 05:59 mouth in [place] 00 :00 the Medical morning Branch and 1 tablet in the evening. Do all this for 360 days. famotidine 2021-11- No [id number] 20mg Take 1 U nivers 20 mg 1-17 11-13 tablet by ity of tablet 00:00: 05:59 mouth in [place] 00 :00 the Medical morning Branch and 1 tablet in the evening. Do all this for 360 days. famotidine 2021-11- No [id number] 20mg Take 1 U nivers 20 mg 1-17 11-13 tablet by ity of tablet 00:00: 05:59 mouth in [place] 00 :00 the Medical morning Branch and 1 tablet in the evening. Do all this for 360 days. famotidine 2021-11- No [id number] 20mg Take 1 U nivers 20 mg 1-17 11-13 tablet by ity of tablet 00:00: 05:59 mouth in [place] 00 :00 the Medical morning Branch and 1 tablet in the evening. Do all this for 360 days. famotidine 2021-11- No [id number] 20mg Take 1 U nivers 20 mg 1-17 11-13 tablet by ity of tablet 00:00: 05:59 mouth in [place] 00 :00 the Medical morning [place] and 1 tablet in the evening. Do all this for 360 days. famotidine 2021-11- No [id number] 20mg Take 1 U nivers 20 mg 1-17 11-13 tablet by ity of tablet 00:00: 05:59 mouth in [place] 00 :00 the [facility] morning Branch and 1 tablet in the evening. Do all this for 360 days. famotidine 2021-11- No [id number] 20mg Take 1 U nivers 20 mg 1-17 11-13 tablet by ity of tablet 00:00: 05:59 mouth in [place] 00 :00 the [facility] morning [place] and 1 tablet in the evening. Do all this for 360 days. famotidine 2021-11- No [id number] 20mg Take 1 U nivers 20 mg 1-17 11-13 tablet by ity of tablet 00:00: 05:59 mouth in [place] 00 :00 the [facility] and 1 tablet in the evening. Do all this for 360 days. famotidine 2021-11- No [id number] 20mg Take 1 U nivers 20 mg 1-17 11-13 tablet by ity of tablet 00:00: 05:59 mouth in [place] 00 :00 the [facility] and 1 tablet in the evening. Do all this for 360 days. metoprolol 2021-11- No [id number] 25mg Take 0.5 [facility] succinate 1-17 12-28 tablets by ity of XL 50 mg 24 00:00: 00:00 mouth in [place] hr tablet 00 :00 the Medical morning. Branch insulin NPH 2021-11 Yes [id number] 17U inject 17 [facility] and regular 1-07 Units ity of human 70-30 00:00: under the [place] 100 unit/mL 00 skin every Me dical (70-30) morning Branch injection and evening. albuterol 2021-11 Yes [id number] 2{puff} Inhale 2 [facility] 90 1-07 Puffs ity of mcg/actuati 00:00: every 6 [place] as on inhaler 00 (six) Medical hours as Branch needed for Wheezing, Shortness of Breath, Bronchospa sm or Chest tightness. allopurinoL 2021-11 Yes [id number] 100mg Take 1 [facility] 100 mg 1-07 tablet by ity of tablet 00:00: mouth in [place] 00 the Medical morning. Branch atorvastati 2021-11 Yes [id number] 80mg Take 1 [facility] n 80 mg 1-07 tablet by ity of tablet 00:00: mouth at [place] 00 bedtime. Medical Branch clopidogreL 2021-11 Yes [id number] 75mg Take 1 [facility] 75 mg 1-07 tablet by ity of tablet 00:00: mouth in [place] 00 the Medical morning. Branch empaglifloz 2021-11 Yes [id number] 10mg Take 1 [facility] in 1-07 tablet by ity of (JARDIANCE) 00:00: mouth [place] 10 mg 00 every Medical morning. Branch furosemide 2021-11 Yes [id number] 80mg Take 2 Univers (LASIX) 40 -07 02 tablets by ity of mg tablet 00:00: mouth [place] 00 every Medical morning Branch and evening. isosorbide 2021-11 Yes [id number] 60mg Take 2 U nivers mononitrate 1-07 tablets by it y of 30 mg 24 hr 00:00: mouth in [place] tablet 00 the Medical morning. Branch KCL 20 mEq 2021-11 Yes [id number] 20meq Take 1 [facility] tablet 1-07 tablet by ity of 00:00: mouth in [place] 00 the Medical morning. Branch levothyroxi 2021-11 Yes [id number] 150ug Take 1 [facility] ne 150 mcg 1-07 tablet by ity of tablet 00:00: mouth [place] 00 every Medical morning. Branch metoprolol 2021-11 Yes [id number] 50mg Take 1 U nivers succinate 1-07 tablet by ity o f XL 50 mg 24 00:00: mouth in [place] hr tablet 00 the Medical morning. Branch pantoprazol 2021-11 Yes [id number] 40mg Take 1 [facility] e 40 mg EC 1-07 tablet by ity of tablet 00:00: mouth in [place] 00 the Medical morning Branch and 1 tablet in the evening. insulin NPH 2021-11 Yes [id number] 17U inject 17 [facility] and regular 1-07 Units ity of human 70-30 00:00: under the [place] 100 unit/mL 00 skin every Me dical (70-30) morning Branch injection and evening. albuterol 2021-11 Yes [id number] 2{puff} Inhale 2 [facility] 90 1-07 Puffs ity of mcg/actuati 00:00: every 6 [place] on inhaler 00 (six) Medical hours as Branch needed for Wheezing, Shortness of Breath, Bronchospa sm or Chest tightness. allopurinoL 2021-11 Yes [id number] 100mg Take 1 [facility] 100 mg 1-07 tablet by ity of tablet 00:00: mouth in [place] 00 the Medical morning. Branch atorvastati 2021-11 Yes [id number] 80mg Take 1 [facility] n 80 mg 1-07 tablet by ity of tablet 00:00: mouth at [place] [address] bedtime. Medical Branch clopidogreL 2021-11 Yes [id number] 75mg Take 1 [facility] 75 mg 1-07 tablet by ity of tablet 00:00: mouth in [place] 00 the Medical morning. Branch empaglifloz 2021-11 Yes [id number] 10mg Take 1 [facility] in 1-07 tablet by ity of (JARDIANCE) 00:00: mouth [place] 10 mg 00 every Medical morning. Branch furosemide 2021-11 Yes [id number] 80mg Take 2 Univers (LASIX) 40 1-07 02 tablets by ity of mg tablet 00:00: mouth [place] 00 every Medical morning Branch and evening. isosorbide 2021-11 Yes [id number] 60mg Take 2 U nivers mononitrate 1-07 tablets by it y of 30 mg 24 hr 00:00: mouth in [place] tablet 00 the Medical morning. Branch KCL 20 mEq 2021-11 Yes [id number] 20meq Take 1 [facility] tablet 1-07 tablet by ity of 00:00: mouth in [place] 00 the Medical morning. Branch levothyroxi 2021-11 Yes [id number] 150ug Take 1 [facility] ne 150 mcg 1-07 tablet by ity of tablet 00:00: mouth [place] 00 every Medical morning. Branch metoprolol 2021-11 Yes [id number] 50mg Take 1 U nivers succinate 1-07 tablet by ity o f XL 50 mg 24 00:00: mouth in [place] hr tablet 00 the Medical morning. Branch pantoprazol 2021-11 Yes [id number] 40mg Take 1 Univers e 40 mg EC 1-07 tablet by ity of tablet 00:00: mouth in [place] 00 the Medical morning Branch and 1 tablet in the evening. insulin NPH 2021-11 Yes [id number] 17U inject 17 [facility] and regular 1-07 Units ity of human 70-30 00:00: under the [place] 100 unit/mL 00 skin every Me dical (70-30) morning Branch injection and evening. albuterol 2021-11 Yes [id number] 2{puff} Inhale 2 [facility] 90 1-07 Puffs ity of mcg/actuati 00:00: every 6 [place] on inhaler 00 (six) Medical hours as Branch needed for Wheezing, Shortness of Breath, Bronchospa sm or Chest tightness. allopurinoL 2021-11 Yes [id number] 100mg Take 1 [facility] 100 mg 1-07 tablet by ity of tablet 00:00: mouth in [place] 00 the Medical morning. Branch atorvastati 2021-11 Yes [id number] 80mg Take 1 [facility] n 80 mg 1-07 tablet by ity of tablet 00:00: mouth at [place] [address] bedtime. Medical Branch clopidogreL 2021-11 Yes [id number] 75mg Take 1 [facility] 75 mg 1-07 tablet by ity of tablet 00:00: mouth in [place] 00 the Medical morning. Branch empaglifloz 2021-11 Yes [id number] 10mg Take 1 [facility] in 1-07 tablet by ity of (JARDIANCE) 00:00: mouth [place] 10 mg 00 every Medical morning. Branch furosemide 2021-11 Yes [id number] 80mg Take 2 [facility] (LASIX) 40 1-07 02 tablets by ity of mg tablet 00:00: mouth [place] 00 every Medical morning Branch and evening. isosorbide 2021-11 Yes [id number] 60mg Take 2 U nivers mononitrate 1-07 tablets by it y of 30 mg 24 hr 00:00: mouth in [place] tablet 00 the Medical morning. Branch KCL 20 mEq 2021-11 Yes [id number] 20meq Take 1 [facility] tablet 1-07 tablet by ity of 00:00: mouth in [place] 00 the Medical morning. Branch levothyroxi 2021-11 Yes [id number] 150ug Take 1 [facility] ne 150 mcg 1-07 tablet by ity of tablet 00:00: mouth [place] 00 every Medical morning. Branch metoprolol 2021-11 Yes [id number] 50mg Take 1 U nivers succinate 1-07 tablet by ity o f XL 50 mg 24 00:00: mouth in [place] hr tablet 00 the Medical morning. Branch pantoprazol 2021-11 Yes [id number] 40mg Take 1 [facility] e 40 mg EC 1-07 tablet by ity of tablet 00:00: mouth in [place] 00 the Medical morning Branch and 1 tablet in the evening. insulin NPH 2021-11 Yes [id number] 17U inject 17 [facility] and regular 1-07 Units ity of human 70-30 00:00: under the [place] 100 unit/mL 00 skin every Me dical (70-30) morning Branch injection and evening. albuterol 2021-11 Yes [id number] 2{puff} Inhale 2 [facility] 90 1-07 Puffs ity of mcg/actuati 00:00: every 6 [place] on inhaler 00 (six) Medical hours as Branch needed for Wheezing, Shortness of Breath, Bronchospa sm or Chest tightness. allopurinoL 2021-11 Yes [id number] 100mg Take 1 [facility] 100 mg 1-07 tablet by ity of tablet 00:00: mouth in [place] 00 the Medical morning. Branch atorvastati 2021-11 Yes [id number] 80mg Take 1 [facility] n 80 mg 1-07 tablet by ity of tablet 00:00: mouth at [place] 00 bedtime. Medical Branch clopidogreL 2021-11 Yes [id number] 75mg Take 1 [facility] 75 mg 1-07 tablet by ity of tablet 00:00: mouth in [place] 00 the Medical morning. Branch empaglifloz 2021-11 Yes [id number] 10mg Take 1 [facility] in -07 tablet by ity of (JARDIANCE) 00:00: mouth [place] 10 mg 00 every Medical morning. Branch furosemide 2021-11 Yes [id number] 80mg Take 2 [facility] (LASIX) 40 -07 02 tablets by ity of mg tablet 00:00: mouth [place] 00 every Medical morning Branch and evening. isosorbide 2021-11 Yes [id number] 60mg Take 2 U nivers mononitrate 1-07 tablets by it y of 30 mg 24 hr 00:00: mouth in [place] tablet 00 the Medical morning. Branch KCL 20 mEq 2021-11 Yes [id number] 20meq Take 1 [facility] tablet 1-07 tablet by ity of 00:00: mouth in [place] 00 the Medical morning. Branch levothyroxi 2021-11 Yes [id number] 150ug Take 1 [facility] ne 150 mcg 1-07 tablet by ity of tablet 00:00: mouth [place] 00 every Medical morning. Branch metoprolol 2021-11 Yes [id number] 50mg Take 1 U nivers succinate 1-07 tablet by ity o f XL 50 mg 24 00:00: mouth in [place] hr tablet 00 the Medical morning. Branch pantoprazol 2021-11 Yes [id number] 40mg Take 1 [facility] e 40 mg EC 1-07 tablet by ity of tablet 00:00: mouth in [place] 00 the Medical morning Branch and 1 tablet in the evening. insulin NPH 2021-11 Yes [id number] 17U inject 17 [facility] and regular 1-07 Units ity of human 70-30 00:00: under the [place] 100 unit/mL 00 skin every Me dical (70-30) morning Branch injection and evening. albuterol 2021-11 Yes [id number] 2{puff} Inhale 2 [facility] 90 1-07 Puffs [facility] of mcg/actuati 00:00: every 6 [place] as on inhaler 00 (six) Medical hours as Branch needed for Wheezing, Shortness of Breath, Bronchospa sm or Chest tightness. allopurinoL 2021-11 Yes [id number] 100mg Take 1 [facility] 100 mg 1-07 tablet by [facility] of tablet 00:00: mouth in [place] 00 the Medical morning. Branch atorvastati 2021-11 Yes [id number] 80mg Take 1 [facility] n 80 mg 1-07 tablet by [facility] of tablet 00:00: mouth at [place] 00 bedtime. Medical Branch clopidogreL 2021-11 Yes [id number] 75mg Take 1 [facility] 75 mg 1-07 tablet by [facility] of tablet 00:00: mouth in [place] 00 the Medical morning. Branch empaglifloz 2021-11 Yes [id number] 10mg Take 1 [facility] in 1-07 tablet by ity of (JARDIANCE) 00:00: mouth [place] 10 mg 00 every Medical morning. Branch furosemide 2021-11 Yes [id number] 80mg Take 2 [facility] (LASIX) 40 1-07 02 tablets by ity of mg tablet 00:00: mouth [place] 00 every Medical morning Branch and evening. isosorbide 2021-11 Yes [id number] 60mg Take 2 [facility] mononitrate 1-07 tablets by it y of 30 mg 24 hr 00:00: mouth in [place] tablet 00 the Medical morning. Branch KCL 20 mEq 2021-11 Yes [id number] 20meq Take 1 [facility] tablet 1-07 tablet by [facility] of 00:00: mouth in [place] 00 the Medical morning. Branch levothyroxi 2021-11 Yes [id number] 150ug Take 1 [facility] ne 150 mcg 1-07 tablet by [facility] of tablet 00:00: mouth [place] 00 every Medical morning. Branch metoprolol 2021-11 Yes [id number] 50mg Take 1 [facility] succinate 1-07 tablet by ity o f XL 50 mg 24 00:00: mouth in [place] hr tablet 00 the Medical morning. Branch pantoprazol 2021-11 Yes [id number] 40mg Take 1 [facility] e 40 mg EC 1-07 tablet by it[facility] of tablet 00:00: mouth in [place] 00 the Medical morning Branch and 1 tablet in the evening. insulin NPH 2021-11 Yes [id number] 17U inject 17 [facility] and regular 1-07 Units ity of human 70-30 00:00: under the [place] 100 unit/mL 00 skin every Me dical (70-30) morning Branch injection and evening. albuterol 2021-11 Yes [id number] 2{puff} Inhale 2 [facility] 90 1-07 Puffs [facility] of mcg/actuati 00:00: every 6 [place] as on inhaler 00 (six) Medical hours as Branch needed for Wheezing, Shortness of Breath, Bronchospa sm or Chest tightness. allopurinoL 2021-11 Yes [id number] 100mg Take 1 [facility] 100 mg 1-07 tablet by [facility] of tablet 00:00: mouth in [place] 00 the Medical morning. Branch atorvastati 2021-11 Yes [id number] 80mg Take 1 [facility] n 80 mg 1-07 tablet by [facility] of tablet 00:00: mouth at [place] 00 bedtime. Medical Branch clopidogreL 2021-11 Yes [id number] 75mg Take 1 [facility] 75 mg 1-07 tablet by [facility] of tablet 00:00: mouth in [place] 00 the Medical morning. Branch empaglifloz 2021-11 Yes [id number] 10mg Take 1 [facility] in 1-07 tablet by ity of (JARDIANCE) 00:00: mouth [place] 10 mg 00 every Medical morning. Branch KCL 20 mEq 2021-11 Yes [id number] 20meq Take 1 [facility] tablet 1-07 tablet by [facility] of 00:00: mouth in [place] 00 the Medical morning. Branch levothyroxi 2021-11 Yes [id number] 150ug Take 1 [facility] ne 150 mcg 1-07 tablet by [facility] of tablet 00:00: mouth [place] 00 every Medical morning. Branch insulin NPH 2021-11 Yes [id number] 17U inject 17 [facility] and regular 1-07 Units ity of human 70-30 00:00: under the [place] 100 unit/mL 00 skin every Me dical (70-30) morning Branch injection and evening. albuterol 2021-11 Yes [id number] 2{puff} Inhale 2 [facility] 90 1-07 Puffs [facility] of mcg/actuati 00:00: every 6 [place] as on inhaler 00 (six) Medical hours as Branch needed for Wheezing, Shortness of Breath, Bronchospa sm or Chest tightness. allopurinoL 2021-11 Yes [id number] 100mg Take 1 [facility] 100 mg 1-07 tablet by [facility] of tablet 00:00: mouth in [place] 00 the Medical morning. Branch atorvastati 2021-11 Yes [id number] 80mg Take 1 [facility] n 80 mg 1-07 tablet by [facility] of tablet 00:00: mouth at [place] 00 bedtime. Medical Branch clopidogreL 2021-11 Yes [id number] 75mg Take 1 [facility] 75 mg 1-07 tablet by [facility] of tablet 00:00: mouth in [place] 00 the Medical morning. Branch empaglifloz 2021-11 Yes [id number] 10mg Take 1 [facility] in 1-07 tablet by it[facility] of (JARDIANCE) 00:00: mouth [place] 10 mg 00 every Medical morning. Branch KCL 20 mEq 2021-11 Yes [id number] 20meq Take 1 [facility] tablet 1-07 tablet by it[facility] of 00:00: mouth in [place] 00 the Medical morning. Branch levothyroxi 2021-11 Yes [id number] 150ug Take 1 [facility] ne 150 mcg 1-07 tablet by it[facility] of tablet 00:00: mouth [place] 00 every Medical morning. Branch insulin NPH 2021-11 Yes [id number] 17U inject 17 [facility] and regular 1-07 Units ity of human 70-30 00:00: under the [place] 100 unit/mL 00 skin every Me dical (70-30) morning Branch injection and evening. albuterol 2021-11 Yes [id number] 2{puff} Inhale 2 [facility] 90 1-07 Puffs it[facility] of mcg/actuati 00:00: every 6 [place] as on inhaler 00 (six) Medical hours as Branch needed for Wheezing, Shortness of Breath, Bronchospa sm or Chest tightness. allopurinoL 2021-11 Yes [id number] 100mg Take 1 [facility] 100 mg 1-07 tablet by [facility] of tablet 00:00: mouth in [place] 00 the Medical morning. Branch atorvastati 2021-11 Yes [id number] 80mg Take 1 [facility] n 80 mg 1-07 tablet by ity of tablet 00:00: mouth at [place] [address] bedtime. Medical Branch clopidogreL 2021-11 Yes [id number] 75mg Take 1 [facility] 75 mg 1-07 tablet by ity of tablet 00:00: mouth in [place] 00 the Medical morning. Branch KCL 20 mEq 2021-11 Yes [id number] 20meq Take 1 [facility] tablet 1-07 tablet by ity of 00:00: mouth in [place] 00 the Medical morning. Branch levothyroxi 2021-11 Yes [id number] 150ug Take 1 [facility] ne 150 mcg 1-07 tablet by [facility] of tablet 00:00: mouth [place] 00 every Medical morning. Branch insulin NPH 2021-11 Yes [id number] 17U inject 17 [facility] and regular 1-07 Units ity of human 70-30 00:00: under the [place] 100 unit/mL 00 skin every Me dical (70-30) morning Branch injection and evening. albuterol 2021-11 Yes [id number] 2{puff} Inhale 2 [facility] 90 1-07 Puffs ity of mcg/actuati 00:00: every 6 [place] as on inhaler 00 (six) Medical hours as Branch needed for Wheezing, Shortness of Breath, Bronchospa sm or Chest tightness. allopurinoL 2021-11 Yes [id number] 100mg Take 1 [facility] 100 mg 1-07 tablet by [facility] of tablet 00:00: mouth in [place] 00 the Medical morning. Branch atorvastati 2021-11 Yes [id number] 80mg Take 1 [facility] n 80 mg 1-07 tablet by ity of tablet 00:00: mouth at [place] [address] bedtime. Medical Branch clopidogreL 2021-11 Yes [id number] 75mg Take 1 [facility] 75 mg 1-07 tablet by it[facility] of tablet 00:00: mouth in [place] 00 the Medical morning. Branch KCL 20 mEq 2021-11 Yes [id number] 20meq Take 1 [facility] tablet 1-07 tablet by ity of 00:00: mouth in [place] 00 the Medical morning. Branch levothyroxi 2021-11 Yes [id number] 150ug Take 1 [facility] ne 150 mcg 1-07 tablet by ity of tablet 00:00: mouth [place] 00 every Medical morning. Branch insulin NPH 2021-11 Yes [id number] 17U inject 17 [facility] and regular 1-07 Units ity of human 70-30 00:00: under the [place] 100 unit/mL 00 skin every Me dical (70-30) morning Branch injection and evening. albuterol 2021-11 Yes [id number] 2{puff} Inhale 2 [facility] 90 1-07 Puffs it[facility] of mcg/actuati 00:00: every 6 [place] as on inhaler 00 (six) Medical hours as Branch needed for Wheezing, Shortness of Breath, Bronchospa sm or Chest tightness. allopurinoL 2021-11 Yes [id number] 100mg Take 1 [facility] 100 mg 1-07 tablet by [facility] of tablet 00:00: mouth in [place] 00 the Medical morning. Branch atorvastati 2021-11 Yes [id number] 80mg Take 1 [facility] n 80 mg 1-07 tablet by it[facility] of tablet 00:00: mouth at [place] [address] bedtime. Medical Branch clopidogreL 2021-11 Yes [id number] 75mg Take 1 [facility] 75 mg 1-07 tablet by it[facility] of tablet 00:00: mouth in [place] 00 the Medical morning. Branch KCL 20 mEq 2021-11 Yes [id number] 20meq Take 1 [facility] tablet 1-07 tablet by ity of 00:00: mouth in [place] 00 the Medical morning. Branch levothyroxi 2021-11 Yes [id number] 150ug Take 1 [facility] ne 150 mcg 1-07 tablet by it[facility] of tablet 00:00: mouth [place] 00 every Medical morning. Branch insulin NPH 2021-11 Yes [id number] 17U inject 17 [facility] and regular 1-07 Units ity of human 70-30 00:00: under the [place] 100 unit/mL 00 skin every Me dical (70-30) morning Branch injection and evening. albuterol 2021-11 Yes [id number] 2{puff} Inhale 2 [facility] 90 1-07 Puffs it[facility] of mcg/actuati 00:00: every 6 [place] as on inhaler 00 (six) Medical hours as Branch needed for Wheezing, Shortness of Breath, Bronchospa sm or Chest tightness. allopurinoL 2021-11 Yes [id number] 100mg Take 1 [facility] 100 mg 1-07 tablet by [facility] of tablet 00:00: mouth in [place] 00 the Medical morning. Branch atorvastati 2021-11 Yes [id number] 80mg Take 1 [facility] n 80 mg 1-07 tablet by ity of tablet 00:00: mouth at [place] [address] bedtime. Medical Branch clopidogreL 2021-11 Yes [id number] 75mg Take 1 [facility] 75 mg 1-07 tablet by ity of tablet 00:00: mouth in [place] 00 the Medical morning. Branch KCL 20 mEq 2021-11 Yes [id number] 20meq Take 1 [facility] tablet 1-07 tablet by ity of 00:00: mouth in [place] 00 the Medical morning. Branch levothyroxi 2021-11 Yes [id number] 150ug Take 1 [facility] ne 150 mcg 1-07 tablet by it[facility] of tablet 00:00: mouth [place] 00 every Medical morning. Branch insulin NPH 2021-11 Yes [id number] 17U inject 17 [facility] and regular 1-07 Units ity of human 70-30 00:00: under the [place] 100 unit/mL 00 skin every Me dical (70-30) morning Branch injection and evening. albuterol 2021-11 Yes [id number] 2{puff} Inhale 2 [facility] 90 1-07 Puffs it[facility] of mcg/actuati 00:00: every 6 [place] as on inhaler 00 (six) Medical hours as Branch needed for Wheezing, Shortness of Breath, Bronchospa sm or Chest tightness. allopurinoL 2021-11 Yes [id number] 100mg Take 1 [facility] 100 mg 1-07 tablet by [facility] of tablet 00:00: mouth in [place] 00 the Medical morning. Branch atorvastati 2021-11 Yes [id number] 80mg Take 1 [facility] n 80 mg 1-07 tablet by ity of tablet 00:00: mouth at [place] [address] bedtime. Medical Branch clopidogreL 2021-11 Yes [id number] 75mg Take 1 [facility] 75 mg 1-07 tablet by ity of tablet 00:00: mouth in [place] 00 the Medical morning. Branch KCL 20 mEq 2021-11 Yes [id number] 20meq Take 1 [facility] tablet 1-07 tablet by ity of 00:00: mouth in [place] 00 the Medical morning. Branch levothyroxi 2021-11 Yes [id number] 150ug Take 1 [facility] ne 150 mcg 1-07 tablet by it[facility] of tablet 00:00: mouth [place] 00 every Medical morning. Branch insulin NPH 2021-11 Yes [id number] 17U inject 17 [facility] and regular 1-07 Units ity of human 70-30 00:00: under the [place] 100 unit/mL 00 skin every Me dical (70-30) morning Branch injection and evening. albuterol 2021-11 Yes [id number] 2{puff} Inhale 2 [facility] 90 1-07 Puffs it[facility] of mcg/actuati 00:00: every 6 [place] as on inhaler 00 (six) Medical hours as Branch needed for Wheezing, Shortness of Breath, Bronchospa sm or Chest tightness. allopurinoL 2021-11 Yes [id number] 100mg Take 1 [facility] 100 mg 1-07 tablet by it[facility] of tablet 00:00: mouth in [place] 00 the Medical morning. Branch atorvastati 2021-11 Yes [id number] 80mg Take 1 [facility] n 80 mg 1-07 tablet by ity of tablet 00:00: mouth at [place] [address] bedtime. Medical Branch clopidogreL 2021-11 Yes [id number] 75mg Take 1 [facility] 75 mg 1-07 tablet by ity of tablet 00:00: mouth in [place] 00 the Medical morning. Branch KCL 20 mEq 2021-11 Yes [id number] 20meq Take 1 [facility] tablet 1-07 tablet by ity of 00:00: mouth in [place] 00 the Medical morning. Branch levothyroxi 2021-11 Yes [id number] 150ug Take 1 [facility] ne 150 mcg 1-07 tablet by ity of tablet 00:00: mouth [place] 00 every Medical morning. Branch insulin NPH 2021-11 Yes [id number] 17U inject 17 [facility] and regular 1-07 Units ity of human 70-30 00:00: under the [place] 100 unit/mL 00 skin every Me dical (70-30) morning Branch injection and evening. albuterol 2021-11 Yes [id number] 2{puff} Inhale 2 [facility] 90 1-07 Puffs ity of mcg/actuati 00:00: every 6 [place] as on inhaler 00 (six) Medical hours as Branch needed for Wheezing, Shortness of Breath, Bronchospa sm or Chest tightness. allopurinoL 2021-11 Yes [id number] 100mg Take 1 [facility] 100 mg 1-07 tablet by it[facility] of tablet 00:00: mouth in [place] 00 the Medical morning. Branch atorvastati 2021-11 Yes [id number] 80mg Take 1 [facility] n 80 mg 1-07 tablet by ity of tablet 00:00: mouth at [place] [address] bedtime. Medical Branch clopidogreL 2021-11 Yes [id number] 75mg Take 1 [facility] 75 mg 1-07 tablet by ity of tablet 00:00: mouth in [place] 00 the Medical morning. Branch KCL 20 mEq 2021-11 Yes [id number] 20meq Take 1 [facility] tablet 1-07 tablet by ity of 00:00: mouth in [place] 00 the Medical morning. Branch levothyroxi 2021-11 Yes [id number] 150ug Take 1 [facility] ne 150 mcg 1-07 tablet by ity of tablet 00:00: mouth [place] 00 every Medical morning. Branch insulin NPH 2021-11 Yes [id number] 17U inject 17 [facility] and regular 1-07 Units ity of human 70-30 00:00: under the [place] 100 unit/mL 00 skin every Me dical (70-30) morning Branch injection and evening. albuterol 2021-11 Yes [id number] 2{puff} Inhale 2 [facility] 90 1-07 Puffs ity of mcg/actuati 00:00: every 6 [place] as on inhaler 00 (six) Medical hours as Branch needed for Wheezing, Shortness of Breath, Bronchospa sm or Chest tightness. allopurinoL 2021-11 Yes [id number] 100mg Take 1 [facility] 100 mg 1-07 tablet by [facility] of tablet 00:00: mouth in [place] 00 the Medical morning. Branch atorvastati 2021-11 Yes [id number] 80mg Take 1 [facility] n 80 mg 1-07 tablet by ity of tablet 00:00: mouth at [place] [address] bedtime. Medical Branch clopidogreL 2021-11 Yes [id number] 75mg Take 1 [facility] 75 mg 1-07 tablet by ity of tablet 00:00: mouth in [place] 00 the Medical morning. Branch KCL 20 mEq 2021-11 Yes [id number] 20meq Take 1 [facility] tablet 1-07 tablet by ity of 00:00: mouth in [place] 00 the Medical morning. Branch levothyroxi 2021-11 Yes [id number] 150ug Take 1 [facility] ne 150 mcg 1-07 tablet by ity of tablet 00:00: mouth [place] 00 every Medical morning. Branch insulin NPH 2021-11 Yes [id number] 17U inject 17 [facility] and regular 1-07 Units ity of human 70-30 00:00: under the [place] 100 unit/mL 00 skin every Me dical (70-30) morning Branch injection and evening. albuterol 2021-11 Yes [id number] 2{puff} Inhale 2 [facility] 90 1-07 Puffs ity of mcg/actuati 00:00: every 6 [place] as on inhaler 00 (six) Medical hours as Branch needed for Wheezing, Shortness of Breath, Bronchospa sm or Chest tightness. allopurinoL 2021-11 Yes [id number] 100mg Take 1 [facility] 100 mg 1-07 tablet by [facility] of tablet 00:00: mouth in [place] 00 the Medical morning. Branch atorvastati 2021-11 Yes [id number] 80mg Take 1 [facility] n 80 mg 1-07 tablet by ity of tablet 00:00: mouth at [place] [address] bedtime. Medical Branch clopidogreL 2021-11 Yes [id number] 75mg Take 1 [facility] 75 mg 1-07 tablet by ity of tablet 00:00: mouth in [place] 00 the Medical morning. Branch KCL 20 mEq 2021-11 Yes [id number] 20meq Take 1 [facility] tablet 1-07 tablet by ity of 00:00: mouth in [place] 00 the Medical morning. Branch levothyroxi 2021-11 Yes [id number] 150ug Take 1 [facility] ne 150 mcg 1-07 tablet by it[facility] of tablet 00:00: mouth [place] 00 every Medical morning. Branch insulin NPH 2021-11 Yes [id number] 17U inject 17 [facility] and regular 1-07 Units ity of human 70-30 00:00: under the [place] 100 unit/mL 00 skin every Me dical (70-30) morning Branch injection and evening. albuterol 2021-11 Yes [id number] 2{puff} Inhale 2 [facility] 90 1-07 Puffs ity of mcg/actuati 00:00: every 6 [place] as on inhaler 00 (six) Medical hours as Branch needed for Wheezing, Shortness of Breath, Bronchospa sm or Chest tightness. allopurinoL 2021-11 Yes [id number] 100mg Take 1 [facility] 100 mg 1-07 tablet by it[facility] of tablet 00:00: mouth in [place] 00 the Medical morning. Branch atorvastati 2021-11 Yes [id number] 80mg Take 1 [facility] n 80 mg 1-07 tablet by ity of tablet 00:00: mouth at [place] [address] bedtime. Medical Branch clopidogreL 2021-11 Yes [id number] 75mg Take 1 [facility] 75 mg 1-07 tablet by ity of tablet 00:00: mouth in [place] 00 the Medical morning. Branch KCL 20 mEq 2021-11 Yes [id number] 20meq Take 1 [facility] tablet 1-07 tablet by ity of 00:00: mouth in [place] 00 the Medical morning. Branch levothyroxi 2021-11 Yes [id number] 150ug Take 1 [facility] ne 150 mcg 1-07 tablet by ity of tablet 00:00: mouth [place] 00 every Medical morning. Branch insulin NPH 2021-11 Yes [id number] 17U inject 17 [facility] and regular 1-07 Units ity of human 70-30 00:00: under the [place] 100 unit/mL 00 skin every Me dical (70-30) morning Branch injection and evening. albuterol 2021-11 Yes [id number] 2{puff} Inhale 2 [facility] 90 1-07 Puffs ity of mcg/actuati 00:00: every 6 [place] as on inhaler 00 (six) Medical hours as Branch needed for Wheezing, Shortness of Breath, Bronchospa sm or Chest tightness. allopurinoL 2021-11 Yes [id number] 100mg Take 1 [facility] 100 mg 1-07 tablet by [facility] of tablet 00:00: mouth in [place] 00 the Medical morning. Branch atorvastati 2021-11 Yes [id number] 80mg Take 1 [facility] n 80 mg 1-07 tablet by ity of tablet 00:00: mouth at [place] [address] bedtime. Medical Branch clopidogreL 2021-11 Yes [id number] 75mg Take 1 [facility] 75 mg 1-07 tablet by ity of tablet 00:00: mouth in [place] 00 the Medical morning. Branch KCL 20 mEq 2021-11 Yes [id number] 20meq Take 1 [facility] tablet 1-07 tablet by ity of 00:00: mouth in [place] 00 the Medical morning. Branch levothyroxi 2021-11 Yes [id number] 150ug Take 1 [facility] ne 150 mcg 1-07 tablet by ity of tablet 00:00: mouth [place] 00 every Medical morning. Branch insulin NPH 2021-11 Yes [id number] 17U inject 17 [facility] and regular 1-07 Units ity of human 70-30 00:00: under the [place] 100 unit/mL 00 skin every Me dical (70-30) morning Branch injection and evening. albuterol 2021-11 Yes [id number] 2{puff} Inhale 2 [facility] 90 1-07 Puffs ity of mcg/actuati 00:00: every 6 [place] as on inhaler 00 (six) Medical hours as Branch needed for Wheezing, Shortness of Breath, Bronchospa sm or Chest tightness. allopurinoL 2021-11 Yes [id number] 100mg Take 1 [facility] 100 mg 1-07 tablet by [facility] of tablet 00:00: mouth in [place] 00 the Medical morning. Branch atorvastati 2021-11 Yes [id number] 80mg Take 1 [facility] n 80 mg 1-07 tablet by ity of tablet 00:00: mouth at [place] [address] bedtime. Medical Branch clopidogreL 2021-11 Yes [id number] 75mg Take 1 [facility] 75 mg 1-07 tablet by it[facility] of tablet 00:00: mouth in [place] 00 the Medical morning. Branch KCL 20 mEq 2021-11 Yes [id number] 20meq Take 1 [facility] tablet 1-07 tablet by ity of 00:00: mouth in [place] 00 the Medical morning. Branch levothyroxi 2021-11 Yes [id number] 150ug Take 1 [facility] ne 150 mcg 1-07 tablet by ity of tablet 00:00: mouth [place] 00 every Medical morning. Branch insulin NPH 2021-11 Yes [id number] 17U inject 17 [facility] and regular 1-07 Units ity of human 70-30 00:00: under the [place] 100 unit/mL 00 skin every Me dical (70-30) morning Branch injection and evening. albuterol 2021-11 Yes [id number] 2{puff} Inhale 2 [facility] 90 1-07 Puffs ity of mcg/actuati 00:00: every 6 [place] as on inhaler 00 (six) Medical hours as Branch needed for Wheezing, Shortness of Breath, Bronchospa sm or Chest tightness. allopurinoL 2021-11 Yes [id number] 100mg Take 1 [facility] 100 mg 1-07 tablet by [facility] of tablet 00:00: mouth in [place] 00 the Medical morning. Branch atorvastati 2021-11 Yes [id number] 80mg Take 1 [facility] n 80 mg 1-07 tablet by ity of tablet 00:00: mouth at [place] [address] bedtime. Medical Branch clopidogreL 2021-11 Yes [id number] 75mg Take 1 [facility] 75 mg 1-07 tablet by ity of tablet 00:00: mouth in [place] 00 the Medical morning. Branch KCL 20 mEq 2021-11 Yes [id number] 20meq Take 1 [facility] tablet 1-07 tablet by ity of 00:00: mouth in [place] 00 the Medical morning. Branch levothyroxi 2021-11 Yes [id number] 150ug Take 1 [facility] ne 150 mcg 1-07 tablet by ity of tablet 00:00: mouth [place] 00 every Medical morning. Branch insulin NPH 2021-11 Yes [id number] 17U inject 17 [facility] and regular 1-07 Units ity of human 70-30 00:00: under the [place] 100 unit/mL 00 skin every Me dical (70-30) morning Branch injection and evening. albuterol 2021-11 Yes [id number] 2{puff} Inhale 2 [facility] 90 1-07 Puffs ity of mcg/actuati 00:00: every 6 [place] as on inhaler 00 (six) Medical hours as Branch needed for Wheezing, Shortness of Breath, Bronchospa sm or Chest tightness. allopurinoL 2021-11 Yes [id number] 100mg Take 1 [facility] 100 mg 1-07 tablet by [facility] of tablet 00:00: mouth in [place] 00 the Medical morning. Branch atorvastati 2021-11 Yes [id number] 80mg Take 1 [facility] n 80 mg 1-07 tablet by ity of tablet 00:00: mouth at [place] [address] bedtime. Medical Branch clopidogreL 2021-11 Yes [id number] 75mg Take 1 [facility] 75 mg 1-07 tablet by ity of tablet 00:00: mouth in [place] 00 the Medical morning. Branch KCL 20 mEq 2021-11 Yes [id number] 20meq Take 1 [facility] tablet 1-07 tablet by ity of 00:00: mouth in [place] 00 the Medical morning. Branch levothyroxi 2021-11 Yes [id number] 150ug Take 1 [facility] ne 150 mcg 1-07 tablet by [facility]y of tablet 00:00: mouth [place] 00 every Medical morning. Branch insulin NPH 2021-11 Yes [id number] 17U inject 17 [facility] and regular 1-07 Units ity of human 70-30 00:00: under the [place] 100 unit/mL 00 skin every Me dical (70-30) morning Branch injection and evening. albuterol 2021-11 Yes [id number] 2{puff} Inhale 2 [facility] 90 1-07 Puffs ity of mcg/actuati 00:00: every 6 [place] as on inhaler 00 (six) Medical hours as Branch needed for Wheezing, Shortness of Breath, Bronchospa sm or Chest tightness. allopurinoL 2021-11 Yes [id number] 100mg Take 1 [facility] 100 mg 1-07 tablet by [facility] of tablet 00:00: mouth in [place] 00 the Medical morning. Branch atorvastati 2021-11 Yes [id number] 80mg Take 1 [facility] n 80 mg 1-07 tablet by ity of tablet 00:00: mouth at [place] [address] bedtime. Medical Branch clopidogreL 2021-11 Yes [id number] 75mg Take 1 [facility] 75 mg 1-07 tablet by ity of tablet 00:00: mouth in [place] 00 the Medical morning. Branch KCL 20 mEq 2021-11 Yes [id number] 20meq Take 1 [facility] tablet 1-07 tablet by ity of 00:00: mouth in [place] 00 the Medical morning. Branch levothyroxi 2021-11 Yes [id number] 150ug Take 1 [facility] ne 150 mcg 1-07 tablet by [facility] of tablet 00:00: mouth [place] 00 every Medical morning. Branch insulin NPH 2021-11 Yes [id number] 17U inject 17 [facility] and regular 1-07 Units ity of human 70-30 00:00: under the [place] 100 unit/mL 00 skin every Me dical (70-30) morning Branch injection and evening. albuterol 2021-11 Yes [id number] 2{puff} Inhale 2 [facility] 90 1-07 Puffs ity of mcg/actuati 00:00: every 6 [place] as on inhaler 00 (six) Medical hours as Branch needed for Wheezing, Shortness of Breath, Bronchospa sm or Chest tightness. allopurinoL 2021-11 Yes [id number] 100mg Take 1 [facility] 100 mg 1-07 tablet by [facility] of tablet 00:00: mouth in [place] 00 the Medical morning. Branch atorvastati 2021-11 Yes [id number] 80mg Take 1 [facility] n 80 mg 1-07 tablet by [facility]y of tablet 00:00: mouth at [place] [address] bedtime. Medical Branch clopidogreL 2021-11 Yes [id number] 75mg Take 1 [facility] 75 mg 1-07 tablet by ity of tablet 00:00: mouth in [place] 00 the Medical morning. Branch KCL 20 mEq 2021-11 Yes [id number] 20meq Take 1 [facility] tablet 1-07 tablet by ity of 00:00: mouth in [place] 00 the Medical morning. Branch levothyroxi 2021-11 Yes [id number] 150ug Take 1 [facility] ne 150 mcg 1-07 tablet by [facility] of tablet 00:00: mouth [place] 00 every Medical morning. Branch insulin NPH 2021-11 Yes [id number] 17U inject 17 [facility] and regular 1-07 Units ity of human 70-30 00:00: under the [place] 100 unit/mL 00 skin every Me dical (70-30) morning Branch injection and evening. albuterol 2021-11 Yes [id number] 2{puff} Inhale 2 [facility] 90 1-07 Puffs ity of mcg/actuati 00:00: every 6 [place] as on inhaler 00 (six) Medical hours as Branch needed for Wheezing, Shortness of Breath, Bronchospa sm or Chest tightness. allopurinoL 2021-11 Yes [id number] 100mg Take 1 [facility] 100 mg 1-07 tablet by [facility] of tablet 00:00: mouth in [place] 00 the Medical morning. Branch atorvastati 2021-11 Yes [id number] 80mg Take 1 [facility] n 80 mg 1-07 tablet by [facility] tablet 00:00: mouth at [place] [address] bedtime. Medical Branch clopidogreL 2021-11 Yes [id number] 75mg Take 1 [facility] 75 mg 1-07 tablet by [facility] tablet 00:00: mouth in [place] 00 the Medical morning. Branch KCL 20 mEq 2021-11 Yes [id number] 20meq Take 1 [facility] tablet 1-07 tablet by [facility] of 00:00: mouth in [place] 00 the Medical morning. Branch levothyroxi 2021-11 Yes [id number] 150ug Take 1 [facility] ne 150 mcg 1-07 tablet by [facility] of tablet 00:00: mouth [place] 00 every Medical morning. Branch insulin NPH 2021-11 Yes [id number] 17U inject 17 [facility] and regular 1-07 Units it[facility] of human 70-30 00:00: under the [place] 100 unit/mL 00 skin every Me dical (70-30) morning Branch injection and evening. albuterol 2021-11 Yes [id number] 2{puff} Inhale 2 [facility] 90 1-07 Puffs [facility] of mcg/actuati 00:00: every 6 [place] as on inhaler 00 (six) Medical hours as Branch needed for Wheezing, Shortness of Breath, Bronchospa sm or Chest tightness. allopurinoL 2021-11 Yes [id number] 100mg Take 1 [facility] 100 mg 1-07 tablet by [facility] of tablet 00:00: mouth in [place] 00 the Medical morning. Branch atorvastati 2021-11 Yes [id number] 80mg Take 1 [facility] n 80 mg 1-07 tablet by [facility] of tablet 00:00: mouth at [place] [address] bedtime. Medical Branch clopidogreL 2021-11 Yes [id number] 75mg Take 1 [facility] 75 mg 1-07 tablet by [facility] of tablet 00:00: mouth in [place] 00 the Medical morning. Branch KCL 20 mEq 2021-11 Yes [id number] 20meq Take 1 [facility] tablet 1-07 tablet by [facility] of 00:00: mouth in [place] 00 the Medical morning. Branch levothyroxi 2021-11 Yes [id number] 150ug Take 1 [facility] ne 150 mcg 1-07 tablet by [facility] of tablet 00:00: mouth [place] 00 every Medical morning. Branch insulin NPH 2021-11 Yes [id number] 17U inject 17 [facility] and regular 1-07 Units it[facility] of human 70-30 00:00: under the [place] 100 unit/mL 00 skin every Me dical (70-30) morning Branch injection and evening. albuterol 2021-11 Yes [id number] 2{puff} Inhale 2 [facility] 90 1-07 Puffs [facility] of mcg/actuati 00:00: every 6 [place] as on inhaler 00 (six) Medical hours as Branch needed for Wheezing, Shortness of Breath, Bronchospa sm or Chest tightness. allopurinoL 2021-11 Yes [id number] 100mg Take 1 [facility] 100 mg 1-07 tablet by [facility] of tablet 00:00: mouth in [place] 00 the Medical morning. Branch atorvastati 2021-11 Yes [id number] 80mg Take 1 [facility] n 80 mg 1-07 tablet by [facility] of tablet 00:00: mouth at [place] [address] bedtime. Medical Branch clopidogreL 2021-11 Yes [id number] 75mg Take 1 [facility] 75 mg 1-07 tablet by [facility] of tablet 00:00: mouth in [place] 00 the Medical morning. Branch KCL 20 mEq 2021-11 Yes [id number] 20meq Take 1 [facility] tablet 1-07 tablet by [facility] of 00:00: mouth in [place] 00 the Medical morning. Branch levothyroxi 2021-11 Yes [id number] 150ug Take 1 [facility] ne 150 mcg 1-07 tablet by [facility] of tablet 00:00: mouth [place] 00 every Medical morning. Branch insulin NPH 2021-11 Yes [id number] 17U inject 17 [facility] and regular 1-07 Units it[facility] of human 70-30 00:00: under the [place] 100 unit/mL 00 skin every Me dical (70-30) morning Branch injection and evening. albuterol 2021-11 Yes [id number] 2{puff} Inhale 2 [facility] 90 1-07 Puffs [facility] of mcg/actuati 00:00: every 6 [place] as on inhaler 00 (six) Medical hours as Branch needed for Wheezing, Shortness of Breath, Bronchospa sm or Chest tightness. allopurinoL 2021-11 Yes [id number] 100mg Take 1 [facility] 100 mg 1-07 tablet by [facility] of tablet 00:00: mouth in [place] 00 the Medical morning. Branch atorvastati 2021-11 Yes [id number] 80mg Take 1 [facility] n 80 mg 1-07 tablet by [facility] of tablet 00:00: mouth at [place] [address] bedtime. Medical Branch clopidogreL 2021-11 Yes [id number] 75mg Take 1 [facility] 75 mg 1-07 tablet by [facility] of tablet 00:00: mouth in [place] 00 the Medical morning. Branch KCL 20 mEq 2021-11 Yes [id number] 20meq Take 1 [facility] tablet 1-07 tablet by [facility] of 00:00: mouth in [place] 00 the Medical morning. Branch levothyroxi 2021-11 Yes [id number] 150ug Take 1 [facility] ne 150 mcg 1-07 tablet by [facility] of tablet 00:00: mouth [place] 00 every Medical morning. Branch insulin NPH 2021-11 Yes [id number] 17U inject 17 [facility] and regular 1-07 Units it[facility] of human 70-30 00:00: under the [place] 100 unit/mL 00 skin every Me dical (70-30) morning Branch injection and evening. albuterol 2021-11 Yes [id number] 2{puff} Inhale 2 [facility] 90 1-07 Puffs [facility] of mcg/actuati 00:00: every 6 [place] as on inhaler 00 (six) Medical hours as Branch needed for Wheezing, Shortness of Breath, Bronchospa sm or Chest tightness. allopurinoL 2021-11 Yes [id number] 100mg Take 1 [facility] 100 mg 1-07 tablet by [facility] of tablet 00:00: mouth in [place] 00 the Medical morning. Branch atorvastati 2021-11 Yes [id number] 80mg Take 1 [facility] n 80 mg 1-07 tablet by [facility] of tablet 00:00: mouth at [place] [address] bedtime. Medical Branch clopidogreL 2021-11 Yes [id number] 75mg Take 1 [facility] 75 mg 1-07 tablet by [facility] of tablet 00:00: mouth in [place] 00 the Medical morning. Branch KCL 20 mEq 2021-11 Yes [id number] 20meq Take 1 [facility] tablet 1-07 tablet by [facility] of 00:00: mouth in [place] 00 the Medical morning. Branch levothyroxi 2021-11 Yes [id number] 150ug Take 1 [facility] ne 150 mcg 1-07 tablet by [facility] of tablet 00:00: mouth [place] 00 every Medical morning. Branch insulin NPH 2021-11 Yes [id number] 17U inject 17 [facility] and regular 1-07 Units it[facility] of human 70-30 00:00: under the [place] 100 unit/mL 00 skin every Me dical (70-30) morning Branch injection and evening. albuterol 2021-11 Yes [id number] 2{puff} Inhale 2 [facility] 90 1-07 Puffs [facility] of mcg/actuati 00:00: every 6 [place] as on inhaler 00 (six) Medical hours as Branch needed for Wheezing, Shortness of Breath, Bronchospa sm or Chest tightness. allopurinoL 2021-11 Yes [id number] 100mg Take 1 [facility] 100 mg 1-07 tablet by [facility] of tablet 00:00: mouth in [place] 00 the Medical morning. Branch atorvastati 2021-11 Yes [id number] 80mg Take 1 [facility] n 80 mg 1-07 tablet by [facility] of tablet 00:00: mouth at [place] [address] bedtime. Medical Branch clopidogreL 2021-11 Yes [id number] 75mg Take 1 [facility] 75 mg 1-07 tablet by [facility] of tablet 00:00: mouth in [place] 00 the Medical morning. Branch KCL 20 mEq 2021-11 Yes [id number] 20meq Take 1 [facility] tablet 1-07 tablet by [facility] of 00:00: mouth in [place] 00 the Medical morning. Branch levothyroxi 2021-11 Yes [id number] 150ug Take 1 [facility] ne 150 mcg 1-07 tablet by [facility] of tablet 00:00: mouth [place] 00 every Medical morning. Branch insulin NPH 2021-11 Yes [id number] 17U inject 17 [facility] and regular 1-07 Units it[facility] of human 70-30 00:00: under the [place] 100 unit/mL 00 skin every Me dical (70-30) morning Branch injection and evening. albuterol 2021-11 Yes [id number] 2{puff} Inhale 2 [facility] 90 1-07 Puffs [facility] of mcg/actuati 00:00: every 6 [place] as on inhaler 00 (six) Medical hours as Branch needed for Wheezing, Shortness of Breath, Bronchospa sm or Chest tightness. allopurinoL 2021-11 Yes [id number] 100mg Take 1 [facility] 100 mg 1-07 tablet by [facility] of tablet 00:00: mouth in [place] 00 the Medical morning. Branch atorvastati 2021-11 Yes [id number] 80mg Take 1 [facility] n 80 mg 1-07 tablet by [facility] of tablet 00:00: mouth at [place] [address] bedtime. Medical Branch clopidogreL 2021-11 Yes [id number] 75mg Take 1 [facility] 75 mg 1-07 tablet by [facility] of tablet 00:00: mouth in [place] 00 the Medical morning. Branch KCL 20 mEq 2021-11 Yes [id number] 20meq Take 1 [facility] tablet 1-07 tablet by [facility] of 00:00: mouth in [place] 00 the Medical morning. Branch levothyroxi 2021-11 Yes [id number] 150ug Take 1 [facility] ne 150 mcg 1-07 tablet by [facility] of tablet 00:00: mouth [place] 00 every Medical morning. Branch insulin NPH 2021-11 Yes [id number] 17U inject 17 [facility] and regular 1-07 Units it[facility] of human 70-30 00:00: under the [place] 100 unit/mL 00 skin every Me dical (70-30) morning Branch injection and evening. albuterol 2021-11 Yes [id number] 2{puff} Inhale 2 [facility] 90 1-07 Puffs [facility] of mcg/actuati 00:00: every 6 [place] as on inhaler 00 (six) Medical hours as Branch needed for Wheezing, Shortness of Breath, Bronchospa sm or Chest tightness. allopurinoL 2021-11 Yes [id number] 100mg Take 1 [facility] 100 mg 1-07 tablet by [facility] of tablet 00:00: mouth in [place] 00 the Medical morning. Branch atorvastati 2021-11 Yes [id number] 80mg Take 1 [facility] n 80 mg 1-07 tablet by [facility] of tablet 00:00: mouth at [place] [address] bedtime. Medical Branch clopidogreL 2021-11 Yes [id number] 75mg Take 1 [facility] 75 mg 1-07 tablet by [facility] of tablet 00:00: mouth in [place] 00 the Medical morning. Branch KCL 20 mEq 2021-11 Yes [id number] 20meq Take 1 [facility] tablet 1-07 tablet by [facility] of 00:00: mouth in [place] 00 the Medical morning. Branch levothyroxi 2021-11 Yes [id number] 150ug Take 1 [facility] ne 150 mcg 1-07 tablet by [facility] of tablet 00:00: mouth [place] 00 every Medical morning. Branch insulin NPH 2021-11 Yes [id number] 17U inject 17 [facility] and regular 1-07 Units it[facility] of human 70-30 00:00: under the [place] 100 unit/mL 00 skin every Me dical (70-30) morning Branch injection and evening. albuterol 2021-11 Yes [id number] 2{puff} Inhale 2 [facility] 90 1-07 Puffs [facility] of mcg/actuati 00:00: every 6 [place] as on inhaler 00 (six) Medical hours as Branch needed for Wheezing, Shortness of Breath, Bronchospa sm or Chest tightness. allopurinoL 2021-11 Yes [id number] 100mg Take 1 [facility] 100 mg 1-07 tablet by [facility] of tablet 00:00: mouth in [place] 00 the Medical morning. Branch atorvastati 2021-11 Yes [id number] 80mg Take 1 [facility] n 80 mg 1-07 tablet by [facility] of tablet 00:00: mouth at [place] [address] bedtime. Medical Branch clopidogreL 2021-11 Yes [id number] 75mg Take 1 [facility] 75 mg 1-07 tablet by [facility] of tablet 00:00: mouth in [place] 00 the Medical morning. Branch KCL 20 mEq 2021-11 Yes [id number] 20meq Take 1 [facility] tablet 1-07 tablet by [facility] of 00:00: mouth in [place] 00 the Medical morning. Branch levothyroxi 2021-11 Yes [id number] 150ug Take 1 [facility] ne 150 mcg 1-07 tablet by [facility] of tablet 00:00: mouth [place] 00 every Medical morning. Branch insulin NPH 2021-11 Yes [id number] 17U inject 17 [facility] and regular 1-07 Units ity of human 70-30 00:00: under the [place] 100 unit/mL 00 skin every Me dical (70-30) morning Branch injection and evening. albuterol 2021-11 Yes [id number] 2{puff} Inhale 2 [facility] 90 1-07 Puffs [facility] of mcg/actuati 00:00: every 6 [place] as on inhaler 00 (six) Medical hours as Branch needed for Wheezing, Shortness of Breath, Bronchospa sm or Chest tightness. allopurinoL 2021-11 Yes [id number] 100mg Take 1 [facility] 100 mg 1-07 tablet by [facility] of tablet 00:00: mouth in [place] 00 the Medical morning. Branch atorvastati 2021-11 Yes [id number] 80mg Take 1 [facility] n 80 mg 1-07 tablet by [facility] of tablet 00:00: mouth at [place] [address] bedtime. Medical Branch clopidogreL 2021-11 Yes [id number] 75mg Take 1 [facility] 75 mg 1-07 tablet by [facility] of tablet 00:00: mouth in [place] 00 the Medical morning. Branch KCL 20 mEq 2021-11 Yes [id number] 20meq Take 1 [facility] tablet 1-07 tablet by [facility] of 00:00: mouth in [place] 00 the Medical morning. Branch levothyroxi 2021-11 Yes [id number] 150ug Take 1 [facility] ne 150 mcg 1-07 tablet by [facility] of tablet 00:00: mouth [place] 00 every Medical morning. Branch insulin NPH 2021-11 Yes [id number] 17U inject 17 [facility] and regular 1-07 Units ity of human 70-30 00:00: under the [place] 100 unit/mL 00 skin every Me dical (70-30) morning Branch injection and evening. albuterol 2021-11 Yes [id number] 2{puff} Inhale 2 [facility] 90 1-07 Puffs [facility] of mcg/actuati 00:00: every 6 [place] as on inhaler 00 (six) Medical hours as Branch needed for Wheezing, Shortness of Breath, Bronchospa sm or Chest tightness. allopurinoL 2021-11 Yes [id number] 100mg Take 1 [facility] 100 mg 1-07 tablet by [facility] of tablet 00:00: mouth in [place] 00 the Medical morning. Branch atorvastati 2021-11 Yes [id number] 80mg Take 1 [facility] n 80 mg 1-07 tablet by [facility] of tablet 00:00: mouth at [place] [address] bedtime. Medical Branch clopidogreL 2021-11 Yes [id number] 75mg Take 1 [facility] 75 mg 1-07 tablet by [facility] of tablet 00:00: mouth in [place] 00 the Medical morning. Branch KCL 20 mEq 2021-11 Yes [id number] 20meq Take 1 [facility] tablet 1-07 tablet by [facility] of 00:00: mouth in [place] 00 the Medical morning. Branch levothyroxi 2021-11 Yes [id number] 150ug Take 1 [facility] ne 150 mcg 1-07 tablet by [facility] of tablet 00:00: mouth [place] 00 every Medical morning. Branch insulin NPH 2021-11 Yes [id number] 17U inject 17 [facility] and regular 1-07 Units ity of human 70-30 00:00: under the [place] 100 unit/mL 00 skin every Me dical (70-30) morning Branch injection and evening. albuterol 2021-11 Yes [id number] 2{puff} Inhale 2 [facility] 90 1-07 Puffs [facility] of mcg/actuati 00:00: every 6 [place] as on inhaler 00 (six) Medical hours as Branch needed for Wheezing, Shortness of Breath, Bronchospa sm or Chest tightness. allopurinoL 2021-11 Yes [id number] 100mg Take 1 [facility] 100 mg 1-07 tablet by [facility] of tablet 00:00: mouth in [place] 00 the Medical morning. Branch atorvastati 2021-11 Yes [id number] 80mg Take 1 [facility] n 80 mg 1-07 tablet by [facility] of tablet 00:00: mouth at [place] [address] bedtime. Medical Branch clopidogreL 2021-11 Yes [id number] 75mg Take 1 [facility] 75 mg 1-07 tablet by [facility] of tablet 00:00: mouth in [place] 00 the Medical morning. Branch KCL 20 mEq 2021-11 Yes [id number] 20meq Take 1 [facility] tablet 1-07 tablet by [facility] of 00:00: mouth in [place] 00 the Medical morning. Branch levothyroxi 2021-11 Yes [id number] 150ug Take 1 [facility] ne 150 mcg 1-07 tablet by [facility] of tablet 00:00: mouth [place] 00 every Medical morning. Branch insulin NPH 2021-11 Yes [id number] 17U inject 17 [facility] and regular 1-07 Units ity of human 70-30 00:00: under the [place] 100 unit/mL 00 skin every Me dical (70-30) morning Branch injection and evening. albuterol 2021-11 Yes [id number] 2{puff} Inhale 2 [facility] 90 1-07 Puffs [facility] of mcg/actuati 00:00: every 6 [place] as on inhaler 00 (six) Medical hours as Branch needed for Wheezing, Shortness of Breath, Bronchospa sm or Chest tightness. allopurinoL 2021-11 Yes [id number] 100mg Take 1 [facility] 100 mg 1-07 tablet by [facility] of tablet 00:00: mouth in [place] 00 the Medical morning. Branch atorvastati 2021-11 Yes [id number] 80mg Take 1 [facility] n 80 mg 1-07 tablet by [facility] of tablet 00:00: mouth at [place] [address] bedtime. Medical Branch clopidogreL 2021-11 Yes [id number] 75mg Take 1 [facility] 75 mg 1-07 tablet by [facility] of tablet 00:00: mouth in [place] 00 the Medical morning. Branch KCL 20 mEq 2021-11 Yes [id number] 20meq Take 1 [facility] tablet 1-07 tablet by [facility] of 00:00: mouth in [place] 00 the Medical morning. Branch levothyroxi 2021-11 Yes [id number] 150ug Take 1 [facility] ne 150 mcg 1-07 tablet by [facility] of tablet 00:00: mouth [place] 00 every Medical morning. Branch insulin NPH 2021-11 Yes [id number] 17U inject 17 [facility] and regular 1-07 Units ity of human 70-30 00:00: under the [place] 100 unit/mL 00 skin every Me dical (70-30) morning Branch injection and evening. albuterol 2021-11 Yes [id number] 2{puff} Inhale 2 [facility] 90 1-07 Puffs it[facility] of mcg/actuati 00:00: every 6 [place] as on inhaler 00 (six) Medical hours as Branch needed for Wheezing, Shortness of Breath, Bronchospa sm or Chest tightness. allopurinoL 2021-11 Yes [id number] 100mg Take 1 [facility] 100 mg 1-07 tablet by [facility] of tablet 00:00: mouth in [place] 00 the Medical morning. Branch atorvastati 2021-11 Yes [id number] 80mg Take 1 [facility] n 80 mg 1-07 tablet by [facility] of tablet 00:00: mouth at [place] [address] bedtime. Medical Branch clopidogreL 2021-11 Yes [id number] 75mg Take 1 [facility] 75 mg 1-07 tablet by [facility] of tablet 00:00: mouth in [place] 00 the Medical morning. Branch KCL 20 mEq 2021-11 Yes [id number] 20meq Take 1 [facility] tablet 1-07 tablet by [facility] of 00:00: mouth in [place] 00 the Medical morning. Branch levothyroxi 2021-11 Yes [id number] 150ug Take 1 [facility] ne 150 mcg 1-07 tablet by [facility] of tablet 00:00: mouth [place] 00 every Medical morning. Branch insulin NPH 2021-11 Yes [id number] 17U inject 17 [facility] and regular 1-07 Units ity of human 70-30 00:00: under the [place] 100 unit/mL 00 skin every Me dical (70-30) morning Branch injection and evening. albuterol 2021-11 Yes [id number] 2{puff} Inhale 2 [facility] 90 1-07 Puffs [facility]y of mcg/actuati 00:00: every 6 [place] as on inhaler 00 (six) Medical hours as Branch needed for Wheezing, Shortness of Breath, Bronchospa sm or Chest tightness. allopurinoL 2021-11 Yes [id number] 100mg Take 1 [facility] 100 mg 1-07 tablet by [facility] of tablet 00:00: mouth in [place] 00 the Medical morning. Branch atorvastati 2021-11 Yes [id number] 80mg Take 1 [facility] n 80 mg 1-07 tablet by [facility] of tablet 00:00: mouth at [place] [address] bedtime. Medical Branch clopidogreL 2021-11 Yes [id number] 75mg Take 1 [facility] 75 mg 1-07 tablet by [facility] of tablet 00:00: mouth in [place] 00 the Medical morning. Branch KCL 20 mEq 2021-11 Yes [id number] 20meq Take 1 [facility] tablet 1-07 tablet by [facility] of 00:00: mouth in [place] 00 the Medical morning. Branch levothyroxi 2021-11 Yes [id number] 150ug Take 1 [facility] ne 150 mcg 1-07 tablet by [facility] of tablet 00:00: mouth [place] 00 every Medical morning. Branch insulin NPH 2021-11 Yes [id number] 17U inject 17 [facility] and regular 1-07 Units ity of human 70-30 00:00: under the [place] 100 unit/mL 00 skin every Me dical (70-30) morning Branch injection and evening. albuterol 2021-11 Yes [id number] 2{puff} Inhale 2 [facility] 90 1-07 Puffs ity of mcg/actuati 00:00: every 6 [place] as on inhaler 00 (six) Medical hours as Branch needed for Wheezing, Shortness of Breath, Bronchospa sm or Chest tightness. allopurinoL 2021-11 Yes [id number] 100mg Take 1 [facility] 100 mg 1-07 tablet by [facility] of tablet 00:00: mouth in [place] 00 the Medical morning. Branch atorvastati 2021-11 Yes [id number] 80mg Take 1 [facility] n 80 mg 1-07 tablet by [facility] of tablet 00:00: mouth at [place] 00 bedtime. Medical Branch clopidogreL 2021-11 Yes [id number] 75mg Take 1 [facility] 75 mg 1-07 tablet by [facility] of tablet 00:00: mouth in [place] 00 the Medical morning. Branch KCL 20 mEq 2021-11 Yes [id number] 20meq Take 1 [facility] tablet 1-07 tablet by [facility] of 00:00: mouth in [place] 00 the Medical morning. Branch levothyroxi 2021-11 Yes [id number] 150ug Take 1 [facility] ne 150 mcg 1-07 tablet by [facility] of tablet 00:00: mouth [place] 00 every Medical morning. Branch insulin NPH 2021-11 Yes [id number] 17U inject 17 [facility] and regular 1-07 Units ity of human 70-30 00:00: under the [place] 100 unit/mL 00 skin every Me dical (70-30) morning Branch injection and evening. allopurinoL 2021-11 Yes [id number] 100mg Take 1 [facility] 100 mg 1-07 tablet by [facility] of tablet 00:00: mouth in [place] 00 the Medical morning. Branch atorvastati 2021-11 Yes [id number] 80mg Take 1 [facility] n 80 mg 1-07 tablet by [facility] of tablet 00:00: mouth at [place] 00 bedtime. Medical Branch clopidogreL 2021-11 Yes [id number] 75mg Take 1 [facility] 75 mg 1-07 tablet by [facility] of tablet 00:00: mouth in [place] 00 the Medical morning. Branch insulin NPH 2021-11 Yes [id number] 17U inject 17 [facility] and regular 1-07 Units ity of human 70-30 00:00: under the [place] 100 unit/mL 00 skin every Me dical (70-30) morning Branch injection and evening. allopurinoL 2021-11 Yes [id number] 100mg Take 1 [facility] 100 mg 1-07 tablet by [facility] of tablet 00:00: mouth in [place] 00 the Medical morning. Branch atorvastati 2021-11 Yes [id number] 80mg Take 1 [facility] n 80 mg 1-07 tablet by [facility] of tablet 00:00: mouth at [place] 00 bedtime. Medical Branch clopidogreL 2021-11 Yes [id number] 75mg Take 1 [facility] 75 mg 1-07 tablet by [facility] of tablet 00:00: mouth in [place] 00 the Medical morning. Branch insulin NPH 2021-11 Yes [id number] 17U inject 17 [facility] and regular 1-07 Units ity of human 70-30 00:00: under the [place] 100 unit/mL 00 skin every Me dical (70-30) morning Branch injection and evening. allopurinoL 2021-11 Yes [id number] 100mg Take 1 [facility] 100 mg 1-07 tablet by [facility] of tablet 00:00: mouth in [place] 00 the Medical morning. Branch atorvastati 2021-11 Yes [id number] 80mg Take 1 [facility] n 80 mg 1-07 tablet by [facility] of tablet 00:00: mouth at [place] 00 bedtime. Medical Branch clopidogreL 2021-11 Yes [id number] 75mg Take 1 [facility] 75 mg 1-07 tablet by [facility] of tablet 00:00: mouth in [place] 00 the Medical morning. Branch insulin NPH 2021-11 Yes [id number] 17U inject 17 [facility] and regular 1-07 Units ity of human 70-30 00:00: under the [place] 100 unit/mL 00 skin every Me dical (70-30) morning Branch injection and evening. allopurinoL 2021-11 Yes [id number] 100mg Take 1 [facility] 100 mg 1-07 tablet by [facility] of tablet 00:00: mouth in [place] 00 the Medical morning. Branch atorvastati 2021-11 Yes [id number] 80mg Take 1 [facility] n 80 mg 1-07 tablet by [facility] of tablet 00:00: mouth at [place] 00 bedtime. Medical Branch clopidogreL 2021-11 Yes [id number] 75mg Take 1 [facility] 75 mg 1-07 tablet by [facility] of tablet 00:00: mouth in [place] 00 the Medical morning. Branch insulin NPH 2021-11 Yes [id number] 17U inject 17 [facility] and regular 1-07 Units ity of human 70-30 00:00: under the [place] 100 unit/mL 00 skin every Me dical (70-30) morning Branch injection and evening. allopurinoL 2021-11 Yes [id number] 100mg Take 1 [facility] 100 mg 1-07 tablet by [facility] of tablet 00:00: mouth in [place] 00 the Medical morning. Branch atorvastati 2021-11 Yes [id number] 80mg Take 1 [facility] n 80 mg 1-07 tablet by [facility] of tablet 00:00: mouth at [place] 00 bedtime. Medical Branch clopidogreL 2021-11 Yes [id number] 75mg Take 1 [facility] 75 mg 1-07 tablet by [facility] of tablet 00:00: mouth in [place] 00 the Medical morning. Branch insulin NPH 2021-11 Yes [id number] 17U inject 17 [facility] and regular 1-07 Units ity of human 70-30 00:00: under the [place] 100 unit/mL 00 skin every Me dical (70-30) morning Branch injection and evening. allopurinoL 2021-11 Yes [id number] 100mg Take 1 [facility] 100 mg 1-07 tablet by [facility] of tablet 00:00: mouth in [place] 00 the Medical morning. Branch atorvastati 2021-11 Yes [id number] 80mg Take 1 [facility] n 80 mg 1-07 tablet by [facility] of tablet 00:00: mouth at [place] 00 bedtime. Medical Branch clopidogreL 2021-11 Yes [id number] 75mg Take 1 [facility] 75 mg 1-07 tablet by [facility] of tablet 00:00: mouth in [place] 00 the Medical morning. Branch insulin NPH 2021-11 Yes [id number] 17U inject 17 [facility] and regular 1-07 Units ity of human 70-30 00:00: under the [place] 100 unit/mL 00 skin every Me dical (70-30) morning Branch injection and evening. allopurinoL 2021-11 Yes [id number] 100mg Take 1 [facility] 100 mg 1-07 tablet by [facility] of tablet 00:00: mouth in [place] 00 the Medical morning. Branch atorvastati 2021-11 Yes [id number] 80mg Take 1 [facility] n 80 mg 1-07 tablet by [facility] of tablet 00:00: mouth at [place] 00 bedtime. Medical Branch clopidogreL 2021-11 Yes [id number] 75mg Take 1 [facility] 75 mg 1-07 tablet by [facility] of tablet 00:00: mouth in [place] 00 the Medical morning. Branch insulin NPH 2021-11 Yes [id number] 17U inject 17 [facility] and regular 1-07 Units ity of human 70-30 00:00: under the [place] 100 unit/mL 00 skin every Me dical (70-30) morning Branch injection and evening. allopurinoL 2021-11 Yes [id number] 100mg Take 1 [facility] 100 mg 1-07 tablet by [facility] of tablet 00:00: mouth in [place] 00 the Medical morning. Branch atorvastati 2021-11 Yes [id number] 80mg Take 1 [facility] n 80 mg 1-07 tablet by [facility] of tablet 00:00: mouth at [place] 00 bedtime. Medical Branch clopidogreL 2021-11 Yes [id number] 75mg Take 1 [facility] 75 mg 1-07 tablet by [facility] of tablet 00:00: mouth in [place] 00 the Medical morning. Branch insulin NPH 2021-11 Yes [id number] 17U inject 17 [facility] and regular 1-07 Units ity of human 70-30 00:00: under the [place] 100 unit/mL 00 skin every Me dical (70-30) morning Branch injection and evening. allopurinoL 2021-11 Yes [id number] 100mg Take 1 [facility] 100 mg 1-07 tablet by [facility] of tablet 00:00: mouth in [place] 00 the Medical morning. Branch atorvastati 2021-11 Yes [id number] 80mg Take 1 [facility] n 80 mg 1-07 tablet by ity of tablet 00:00: mouth at [place] 00 bedtime. Medical Branch clopidogreL 2021-11 Yes [id number] 75mg Take 1 [facility] 75 mg 1-07 tablet by ity of tablet 00:00: mouth in [place] 00 the Medical morning. Branch insulin NPH 2021-11 Yes [id number] 17U inject 17 [facility] and regular 1-07 Units ity of human 70-30 00:00: under the [place] 100 unit/mL 00 skin every Me dical (70-30) morning Branch injection and evening. allopurinoL 2021-11 Yes [id number] 100mg Take 1 [facility] 100 mg 1-07 tablet by ity of tablet 00:00: mouth in [place] 00 the Medical morning. Branch atorvastati 2021-11 Yes [id number] 80mg Take 1 [facility] n 80 mg 1-07 tablet by ity of tablet 00:00: mouth at [place] 00 bedtime. Medical Branch clopidogreL 2021-11 Yes [id number] 75mg Take 1 [facility] 75 mg 1-07 tablet by ity of tablet 00:00: mouth in [place] 00 the Medical morning. Branch insulin NPH 2021-11 Yes [id number] 17U inject 17 [facility] and regular 1-07 Units ity of human 70-30 00:00: under the [place] 100 unit/mL 00 skin every Me dical (70-30) morning Branch injection and evening. allopurinoL 2021-11 Yes [id number] 100mg Take 1 [facility] 100 mg 1-07 tablet by ity of tablet 00:00: mouth in [place] 00 the Medical morning. Branch atorvastati 2021-11 Yes [id number] 80mg Take 1 [facility] n 80 mg 1-07 tablet by ity of tablet 00:00: mouth at [place] 00 bedtime. Medical Branch clopidogreL 2021-11 Yes [id number] 75mg Take 1 [facility] 75 mg 1-07 tablet by ity of tablet 00:00: mouth in [place] 00 the Medical morning. Branch insulin NPH 2021-11 Yes [id number] 17U inject 17 [facility] and regular 1-07 Units ity of human 70-30 00:00: under the [place] 100 unit/mL 00 skin every Me dical (70-30) morning Branch injection and evening. allopurinoL 2021-11 Yes [id number] 100mg Take 1 [facility] 100 mg 1-07 tablet by ity of tablet 00:00: mouth in [place] 00 the Medical morning. Branch atorvastati 2021-11 Yes [id number] 80mg Take 1 [facility] n 80 mg 1-07 tablet by ity of tablet 00:00: mouth at [place] 00 bedtime. Medical Branch clopidogreL 2021-11 Yes [id number] 75mg Take 1 [facility] 75 mg 1-07 tablet by ity of tablet 00:00: mouth in [place] 00 the Medical morning. Branch insulin NPH 2021-11 Yes [id number] 17U inject 17 [facility] and regular 1-07 Units ity of human 70-30 00:00: under the [place] 100 unit/mL 00 skin every Me dical (70-30) morning Branch injection and evening. allopurinoL 2021-11 Yes [id number] 100mg Take 1 [facility] 100 mg 1-07 tablet by ity of tablet 00:00: mouth in [place] 00 the Medical morning. Branch atorvastati 2021-11 Yes [id number] 80mg Take 1 [facility] n 80 mg 1-07 tablet by ity of tablet 00:00: mouth at [place] 00 bedtime. Medical Branch clopidogreL 2021-11 Yes [id number] 75mg Take 1 [facility] 75 mg 1-07 tablet by ity of tablet 00:00: mouth in [place] 00 the Medical morning. Branch insulin NPH 2021-11 Yes [id number] 17U inject 17 [facility] and regular 1-07 Units ity of human 70-30 00:00: under the [place] 100 unit/mL 00 skin every Me dical (70-30) morning Branch injection and evening. allopurinoL 2021-11 Yes [id number] 100mg Take 1 [facility] 100 mg 1-07 tablet by ity of tablet 00:00: mouth in [place] 00 the Medical morning. Branch atorvastati 2021-11 Yes [id number] 80mg Take 1 [facility] n 80 mg 1-07 tablet by ity of tablet 00:00: mouth at [place] 00 bedtime. Medical Branch clopidogreL 2021-11 Yes [id number] 75mg Take 1 [facility] 75 mg 1-07 tablet by ity of tablet 00:00: mouth in [place] 00 the Medical morning. Branch insulin NPH 2021-11 Yes [id number] 17U inject 17 [facility] and regular 1-07 Units ity of human 70-30 00:00: under the [place] 100 unit/mL 00 skin every Me dical (70-30) morning Branch injection and evening. allopurinoL 2021-11 Yes [id number] 100mg Take 1 [facility] 100 mg 1-07 tablet by ity of tablet 00:00: mouth in [place] 00 the Medical morning. Branch atorvastati 2021-11 Yes [id number] 80mg Take 1 [facility] n 80 mg 1-07 tablet by ity of tablet 00:00: mouth at [place] 00 bedtime. Medical Branch clopidogreL 2021-11 Yes [id number] 75mg Take 1 [facility] 75 mg 1-07 tablet by ity of tablet 00:00: mouth in [place] 00 the Medical morning. Branch insulin NPH 2021-11 Yes [id number] 17U inject 17 [facility] and regular 1-07 Units ity of human 70-30 00:00: under the [place] 100 unit/mL 00 skin every Me dical (70-30) morning Branch injection and evening. allopurinoL 2021-11 Yes [id number] 100mg Take 1 [facility] 100 mg 1-07 tablet by ity of tablet 00:00: mouth in [place] 00 the Medical morning. Branch atorvastati 2021-11 Yes [id number] 80mg Take 1 [facility] n 80 mg 1-07 tablet by ity of tablet 00:00: mouth at [place] 00 bedtime. Medical Branch clopidogreL 2021-11 Yes [id number] 75mg Take 1 [facility] 75 mg 1-07 tablet by ity of tablet 00:00: mouth in [place] 00 the Medical morning. Branch insulin NPH 2021-11 Yes [id number] 17U inject 17 [facility] and regular 1-07 Units ity of human 70-30 00:00: under the [place] 100 unit/mL 00 skin every Me dical (70-30) morning Branch injection and evening. allopurinoL 2021-11 Yes [id number] 100mg Take 1 [facility] 100 mg 1-07 tablet by ity of tablet 00:00: mouth in [place] 00 the Medical morning. Branch atorvastati 2021-11 Yes [id number] 80mg Take 1 [facility] n 80 mg 1-07 tablet by ity of tablet 00:00: mouth at [place] 00 bedtime. Medical Branch clopidogreL 2021-11 Yes [id number] 75mg Take 1 [facility] 75 mg 1-07 tablet by ity of tablet 00:00: mouth in [place] 00 the Medical morning. Branch insulin NPH 2021-11 Yes [id number] 17U inject 17 [facility] and regular 1-07 Units ity of human 70-30 00:00: under the [place] 100 unit/mL 00 skin every Me dical (70-30) morning Branch injection and evening. allopurinoL 2021-11 Yes [id number] 100mg Take 1 [facility] 100 mg 1-07 tablet by ity of tablet 00:00: mouth in [place] 00 the Medical morning. Branch atorvastati 2021-11 Yes [id number] 80mg Take 1 [facility] n 80 mg 1-07 tablet by ity of tablet 00:00: mouth at [place] 00 bedtime. Medical Branch clopidogreL 2021-11 Yes [id number] 75mg Take 1 [facility] 75 mg 1-07 tablet by ity of tablet 00:00: mouth in [place] 00 the Medical morning. Branch insulin NPH 2021-11 Yes [id number] 17U inject 17 [facility] and regular 1-07 Units ity of human 70-30 00:00: under the [place] 100 unit/mL 00 skin every Me dical (70-30) morning Branch injection and evening. allopurinoL 2021-11 Yes [id number] 100mg Take 1 [facility] 100 mg 1-07 tablet by ity of tablet 00:00: mouth in [place] 00 the Medical morning. Branch atorvastati 2021-11 Yes [id number] 80mg Take 1 [facility] n 80 mg 1-07 tablet by ity of tablet 00:00: mouth at [place] 00 bedtime. Medical Branch clopidogreL 2021-11 Yes [id number] 75mg Take 1 [facility] 75 mg 1-07 tablet by ity of tablet 00:00: mouth in [place] 00 the Medical morning. Branch insulin NPH 2021-11 Yes [id number] 17U inject 17 [facility] and regular 1-07 Units ity of human 70-30 00:00: under the [place] 100 unit/mL 00 skin every Me dical (70-30) morning Branch injection and evening. allopurinoL 2021-11 Yes [id number] 100mg Take 1 [facility] 100 mg 1-07 tablet by ity of tablet 00:00: mouth in [place] 00 the Medical morning. Branch atorvastati 2021-11 Yes [id number] 80mg Take 1 [facility] n 80 mg 1-07 tablet by ity of tablet 00:00: mouth at [place] 00 bedtime. Medical Branch clopidogreL 2021-11 Yes [id number] 75mg Take 1 [facility] 75 mg 1-07 tablet by ity of tablet 00:00: mouth in [place] 00 the Medical morning. Branch insulin NPH 2021-11 Yes [id number] 17U inject 17 [facility] and regular 1-07 Units ity of human 70-30 00:00: under the [place] 100 unit/mL 00 skin every Me dical (70-30) morning Branch injection and evening. allopurinoL 2021-11 Yes [id number] 100mg Take 1 [facility] 100 mg 1-07 tablet by ity of tablet 00:00: mouth in [place] 00 the Medical morning. Branch atorvastati 2021-11 Yes [id number] 80mg Take 1 [facility] n 80 mg 1-07 tablet by ity of tablet 00:00: mouth at [place] 00 bedtime. Medical Branch clopidogreL 2021-11 Yes [id number] 75mg Take 1 [facility] 75 mg 1-07 tablet by ity of tablet 00:00: mouth in [place] 00 the Medical morning. Branch insulin NPH 2021-11 Yes [id number] 17U inject 17 [facility] and regular 1-07 Units ity of human 70-30 00:00: under the [place] 100 unit/mL 00 skin every Me dical (70-30) morning Branch injection and evening. allopurinoL 2021-11 Yes [id number] 100mg Take 1 [facility] 100 mg 1-07 tablet by ity of tablet 00:00: mouth in [place] 00 the Medical morning. Branch atorvastati 2021-11 Yes [id number] 80mg Take 1 [facility] n 80 mg 1-07 tablet by ity of tablet 00:00: mouth at [place] 00 bedtime. [facility] Branch insulin NPH 2021-11 Yes [id number] 17U inject 17 [facility] and regular 1-07 Units ity of human 70-30 00:00: under the [place] 100 unit/mL 00 skin every Me dical (70-30) morning Branch injection and evening. allopurinoL 2021-11 Yes [id number] 100mg Take 1 [facility] 100 mg 1-07 tablet by ity of tablet 00:00: mouth in [place] 00 the Medical morning. Branch atorvastati 2021-11 Yes [id number] 80mg Take 1 [facility] n 80 mg 1-07 tablet by ity of tablet 00:00: mouth at [place] 00 bedtime. [facility] Branch allopurinoL 2021-11 Yes [id number] 100mg Take 1 [facility] 100 mg 1-07 tablet by ity of tablet 00:00: mouth in [place] 00 the Medical morning. Branch atorvastati 2021-11 Yes [id number] 80mg Take 1 [facility] n 80 mg 1-07 tablet by ity of tablet 00:00: mouth at [place] [address] bedtime. [facility] allopurinoL 2021-11 Yes [id number] 100mg Take 1 [facility] 100 mg 1-07 tablet by ity of tablet 00:00: mouth in [place] 00 the Medical morning. Branch atorvastati 2021-11 Yes [id number] 80mg Take 1 [facility] n 80 mg 1-07 tablet by ity of tablet 00:00: mouth at [place] 00 bedtime. [facility] Branch allopurinoL 2021-11 Yes [id number] 100mg Take 1 [facility] 100 mg 1-07 tablet by ity of tablet 00:00: mouth in [place] 00 the Medical morning. [place] atorvastati 2021-11 Yes [id number] 80mg Take 1 [facility] n 80 mg 1-07 tablet by ity of tablet 00:00: mouth at [place] 00 bedtime. [facility] allopurinoL 2021-11 Yes [id number] 100mg Take 1 [facility] 100 mg 1-07 tablet by ity of tablet 00:00: mouth in [place] 00 the Medical morning. Branch atorvastati 2021-11 Yes [id number] 80mg Take 1 [facility] n 80 mg 1-07 tablet by ity of tablet 00:00: mouth at [place] [address] bedtime. Medical Branch allopurinoL 2021-11 Yes [id number] 100mg Take 1 [facility] 100 mg 1-07 tablet by ity of tablet 00:00: mouth in [place] 00 the Medical morning. Branch atorvastati 2021-11 Yes [id number] 80mg Take 1 [facility] n 80 mg 1-07 tablet by ity of tablet 00:00: mouth at [place] 00 bedtime. Medical Branch allopurinoL 2021-11 Yes [id number] 100mg Take 1 [facility] 100 mg 1-07 tablet by ity of tablet 00:00: mouth in [place] 00 the Medical morning. Branch atorvastati 2021-11 Yes [id number] 80mg Take 1 [facility] n 80 mg 1-07 tablet by ity of tablet 00:00: mouth at [place] 00 bedtime. Medical Branch insulin NPH 2021-11- No [id number] 17U inject 17 [facility] and regular - 02-14 Units ity of human 70-30 00:00: 00:00 under the [place] 100 unit/mL 00 :00 skin every Me dical (70-30) morning Branch injection and evening. insulin NPH 2021-11- No [id number] 17U inject 17 [facility] and regular 1-07 02-14 Units ity of human 70-30 00:00: 00:00 under the [place] 100 unit/mL 00 :00 skin every Me dical (70-30) morning Branch injection and evening. clopidogreL 2021-11- No [id number] 75mg Take 1 [facility] 75 mg 11-29 02-08 tablet by ity of tablet 00:00: 00:00 mouth in [place] 00 :00 the Medical morning. Branch albuterol 2021-11- No [id number] 2{puff} Inhale 2 [facility] 90 11-29 12-28 Puffs ity of mcg/actuati 00:00: 00:00 every 6 [place] on inhaler 00 :00 (six) Medical hours as Branch needed for Wheezing, Shortness of Breath, Bronchospa sm or Chest tightness. KCL 20 mEq 2021-11- No [id number] 20meq Take 1 [facility] tablet 11-29 tablet by ity of 00:00: 00:00 mouth in [place] 00 :00 the Medical morning. Branch levothyroxi 2021-11- No [id number] 150ug Take 1 [facility] ne 150 mcg 11-29 tablet by ity of tablet 00:00: 00:00 mouth [place] 00 :00 every Medical morning. Branch empaglifloz 2021-11- No [id number] 10mg Take 1 [facility] in 11-29 tablet by ity of (JARDIANCE) 00:00: 00:[place] mouth [place] 10 mg 00 :00 every Medical morning. Branch acetaminoph 2021-11 Yes 1 tablet [place] en 325 mg 1-01 as needed ity o f tablet 16:26: [address] acetaminoph 2021-11 Yes 1 tablet [place] 325 mg 1-01 as needed ity o f tablet 16:26: [address] acetaminoph 2021-11 Yes 1 tablet [place] 325 mg 1-01 as needed ity o f tablet 16:26: [address] acetaminoph 2021-11 Yes 1 tablet [place] 325 mg 1-01 as needed ity o f tablet 16:26: [address] acetaminoph 2021-11 Yes 1 tablet [place] 325 mg 1-01 as needed ity o f tablet 16:26: [address] acetaminoph 2021-11 Yes 1 tablet [place] 325 mg 1-01 as needed ity o f tablet 16:26: [address] Branch acetaminoph 2021-11 Yes 1 tablet [place] 325 mg 1-01 as needed ity o f tablet 16:26: [address] acetaminoph 2021-11 Yes 1 tablet [place] 325 mg 1-01 as needed ity o f tablet 16:: [address] acetaminoph 2021-11 Yes 1 tablet [place] 325 mg 1-01 as needed ity o f tablet 16:26: [address] acetaminoph 2021-11 Yes 1 tablet [place] 325 mg 1-01 as needed ity o f tablet 16:26: [address] metoprolol 2021-11 Yes 50mg 50 mg, Unive rs succinate 11-23 Oral, ity of XL (TOPROL 14:00: DAILY, [place] XL) tablet 00 First dose Med ical 50 mg on [facility] 09/23/22 at 0900, Until Discontinu ed, Routine isosorbide 2021-11 Yes 60mg 60 mg, Unive rs mononitrate 11-23 Oral, ity of (IMDUR) 24 14:00: DAILY, [place] hr tablet 00 First dose Medi johnathon 60 mg on [facility] 09/23/22 at 0900, Until Discontinu ed, Routine insulin NPH 2021-11 Yes 10U 10 Units, U nivers and regular 11-23 Subcutaneo it y of human 70-30 14:00: , [place] (70-30 00 QAM+PM, Medical U-100 First dose Branch INSULIN) on [facility] 100 unit/mL 09/23/22 at (70-30) 0900, injection Until 10 Units Discontinu ed furosemide 2021-11 Yes 80mg 80 mg, Unive rs (LASIX) 11-23 Oral, ity of tablet 80 14:00: QAM+PM, [place] mg 00 First dose Medical on [facility] 09/23/22 at 0900, Until Discontinu ed, Routine colchicine 2021-11 Yes .6mg 0.6 mg, Univ ers (COLCRYS) 11-23 Oral, ity of tablet 0.6 14:00: DAILY, [place] mg 00 First dose Medical on [facility] 09/23/22 at 0900, Until Discontinu ed, Routine clopidogreL 2021-11 Yes 75mg 75 mg, Univ ers (PLAVIX) 75 11-23 Oral, ity of mg tablet 14:00: DAILY, [place] 75 mg 00 First dose Medical on [facility] 09/23/22 at 0900, Until Discontinu ed, Routine allopurinoL 2021-11 Yes 100mg 100 mg, Un lesly (ZYLOPRIM) 11-23 Oral, ity of tablet 100 14:00: DAILY, [place] mg 00 First dose Medical on [facility] 09/23/22 at 0900, Until Discontinu ed, Routine enoxaparin 2021-11 Yes 40mg 40 mg, Unive rs (LOVENOX) 11-23 Subcutaneo ity of injection 14:00: us, DAILY, [place] 40 mg 00 First dose Medical on Thu09/23/22 at 0900, Until Discontinu ed, Routine pantoprazol 2021-11 Yes 40mg 40 mg, Univ ers e 11-23 Oral, BID, ity of (PROTONIX) 13:00: First dose [place] EC tablet 00 on Thu Medical 40 mg 09/23/22 at Branch 0800, Until Discontinu ed, Routine levothyroxi 2021-11 Yes 150ug 150 mcg, U nivers ne 11-23 Oral, ity of (SYNTHROID) 11:00: QAM-0600, [place] tablet 150 00 First dose Med ical mcg on Thu09/23/22 at 0600, Until Discontinu ed, Routine Sliding 2021-11 Yes Subcutaneo [facility] ers Scale 11-23 us, Q4H, ity of Insulin-Reg 05:00: First dose [place] ular + Fsbg 00 on Thu Medica l Testing 09/23/22 at Branch 0000, Until Discontinu ed, Routine cyclobenzap 2021-11 Yes 10mg 10 mg, Univ ers rine 11-23 Oral, ity of (FLEXERIL) 03:20: TIDPRN, [place] tablet 10 15 Starting Medica l mg on Thu09/22/22 at 2220, Until Discontinu ed, Routine, Muscle Spasms atorvastati 2021-11 Yes 80mg 80 mg, Univ ers n (LIPITOR) 11-23 Oral, QHS, it y of tablet 80 03:00: First dose [place] mg 00 on Thu09/22/22 Branch at 2200, Until Discontinu ed, Routine NaCl 0.9% 2021-11 Yes 1000mL at 125 [facility] ers (NS) IV 1-01 mL/hr, IV ity of infusion 02:30: Infusion, [place] 1,000 mL 00 CONTINUOUS Medic al , Starting Branch on Thu09/22/22 at 2130, Until Discontinu ed, Routine nitroglycer 2021-11 Yes .4mg 0.4 mg, Uni vers in 11-23 Sublingual ity of (NITROSTAT) 02:25: , Q5MIN [place] sublingual 19 PRN, Medical tablet 0.4 Starting Branc h mg on Thu09/22/22 at 2124, Until Discontinu ed, Routine, Chest pain ipratropium 2021-11 Yes 3mL 3 mL, Unive rs -albuteroL 11-23 Inhalation ity of (DUONEB) 02:24: , QIDPRN, [place] 0.5 mg-3 27 Starting Medical mg(2.5 mg on [facility] base)/3 mL 09/22/22 nebulizer at 2123, solution 3 Until mL Discontinu ed, Routine, Wheezing, Shortness of Breath, Bronchospa sm, Chest tightness glucagon 2021-11 Yes 1mg 1 mg, Univers (GLUCAGEN 11-23 Intramuscu ity of DIAGNOSTIC 02:16: lar, PRN, [place] KIT) 39 Starting Medical injection 1 on Thu [place] mg 09/22/22 at 2115, Until Discontinu ed, DELFIN, Blood Glucose < or = 70 mg/dL and patient is unable to swallow or has mental changes. dextrose 50 2021-11 Yes 25mL 25 mL, Univ ers % in water 11-23 Slow IV ity of (D50W) 02:16: Push, PRN, [place] injection 39 Starting Medica l 25 mL on [facility] 09/22/22 at 2115, Until Discontinu ed, DELFIN, Blood Glucose < or = 70 mg/dL and patient is unable to swallow or has mental status changes. ondansetron 2021-11 Yes 4mg 4 mg, Slow Univers (ZOFRAN 11-23 IV Push, ity of (PF)) 02:16: Q6HPRN, [place] injection 4 31 Starting Medi johnathon mg on [facility] 09/22/22 at 2115, Until Discontinu ed, Routine, Nausea and Vomiting (N/V) acetaminoph 2021-11 Yes 650mg 650 mg, Un lesly en 11-23 Oral, ity of (TYLENOL) 02:16: Q6HPRN, [place] tablet 650 02 Starting Medic al mg on [facility] 09/22/22 at 2115, Until Discontinu ed, Routine, Pain (scale 1-3) colchicine 2021-11 Yes [id number] .6mg Take 1 Univers 0.6 mg 11-23 tablet by ity of tablet 00:00: mouth in [place] 00 the Medical morning. Branch colchicine 2021-11 Yes [id number] .6mg Take 1 Univers 0.6 mg 1-01 tablet by ity of tablet 00:00: mouth in [place] 00 the Medical morning. Branch colchicine 2021-11 Yes [id number] .6mg Take 1 [facility] 0.6 mg 1-01 tablet by ity of tablet 00:00: mouth in [place] 00 the Medical morning. Branch colchicine 2021-11 Yes [id number] .6mg Take 1 [facility] 0.6 mg 1-01 tablet by ity of tablet 00:00: mouth in [place] 00 the Medical morning. Branch colchicine 2021-11 Yes [id number] .6mg Take 1 [facility] 0.6 mg 1-01 tablet by ity of tablet 00:00: mouth in [place] 00 the Medical morning. Branch colchicine 2021-11 Yes [id number] .6mg Take 1 [facility] 0.6 mg 1-01 tablet by ity of tablet 00:00: mouth in [place] 00 the Medical morning. Branch colchicine 2021-11 Yes [id number] .6mg Take 1 [facility] 0.6 mg 1-01 tablet by ity of tablet 00:00: mouth in [place] the Medical morning. Branch colchicine 2021-11 Yes [id number] .6mg Take 1 [facility] 0.6 mg 1-01 tablet by ity of tablet 00:00: mouth in [place] the Medical morning. Branch colchicine 2021-11 Yes [id number] .6mg Take 1 [facility] 0.6 mg 1-01 tablet by ity of tablet 00:00: mouth in [place] the Medical morning. Branch colchicine 2021-11 Yes [id number] .6mg Take 1 [facility] 0.6 mg 1-01 tablet by ity of tablet 00:00: mouth in [place] 00 the Medical morning. Branch colchicine 2021-11 Yes [id number] .6mg Take 1 [facility] 0.6 mg 1-01 tablet by ity of tablet 00:00: mouth in [place] 00 the Medical morning. Branch colchicine 2021-11 Yes [id number] .6mg Take 1 [facility] 0.6 mg 1-01 tablet by ity of tablet 00:00: mouth in [place] 00 the Medical morning. Branch colchicine 2021-11 Yes [id number] .6mg Take 1 [facility] 0.6 mg 1-01 tablet by ity of tablet 00:00: mouth in [place] 00 the Medical morning. Branch colchicine 2021-11 Yes [id number] .6mg Take 1 [facility] 0.6 mg 1-01 tablet by ity of tablet 00:00: mouth in [place] the Medical morning. Branch colchicine 2021-11 Yes [id number] .6mg Take 1 [facility] 0.6 mg 1-01 tablet by ity of tablet 00:00: mouth in [place] the Medical morning. Branch colchicine 2021-11 Yes [id number] .6mg Take 1 [facility] 0.6 mg 1-01 tablet by ity of tablet 00:00: mouth in [place] 00 the Medical morning. Branch colchicine 2021-11 Yes [id number] .6mg Take 1 [facility] 0.6 mg 1-01 tablet by ity of tablet 00:00: mouth in [place] the Medical morning. Branch colchicine 2021-11 Yes [id number] .6mg Take 1 [facility] 0.6 mg 1-01 tablet by ity of tablet 00:00: mouth in [place] the Medical morning. Branch colchicine 2021-11 Yes [id number] .6mg Take 1 [facility] 0.6 mg 1-01 tablet by ity of tablet 00:00: mouth in [place] the Medical morning. Branch colchicine 2021-11 Yes [id number] .6mg Take 1 [facility] 0.6 mg 1-01 tablet by ity of tablet 00:00: mouth in [place] the Medical morning. Branch colchicine 2021-11 Yes [id number] .6mg Take 1 Univers 0.6 mg 1-01 tablet by ity of tablet 00:00: mouth in [place] the Medical morning. Branch colchicine 2021- Yes [id number] .6mg Take 1 Univers 0.6 mg 1-01 tablet by ity of tablet 00:00: mouth in [place] the Medical morning. Branch colchicine 2021-11 Yes [id number] .6mg Take 1 Univers 0.6 mg 1-01 tablet by ity of tablet 00:00: mouth in [place] 00 the Medical morning. Branch colchicine 2021- Yes [id number] .6mg Take 1 Univers 0.6 mg 1-01 tablet by ity of tablet 00:00: mouth in [place] 00 the Medical morning. Branch colchicine 2021-11 Yes [id number] .6mg Take 1 Univers 0.6 mg 1-01 tablet by ity of tablet 00:00: mouth in [place] 00 the Medical morning. Branch colchicine 2021-11 Yes [id number] .6mg Take 1 Univers 0.6 mg 1-01 tablet by ity of tablet 00:00: mouth in [place] the Medical morning. Branch colchicine 2021-11 Yes [id number] .6mg Take 1 Univers 0.6 mg 1-01 tablet by ity of tablet 00:00: mouth in [place] the Medical morning. Branch colchicine 2021-11 Yes [id number] .6mg Take 1 [facility] 0.6 mg 1-01 tablet by ity of tablet 00:00: mouth in [place] the Medical morning. Branch colchicine 2021-11 Yes [id number] .6mg Take 1 Univers 0.6 mg 1-01 tablet by ity of tablet 00:00: mouth in [place] the Medical morning. Branch colchicine 2021-11 Yes [id number] .6mg Take 1 Univers 0.6 mg 1-01 tablet by ity of tablet 00:00: mouth in [place] the Medical morning. Branch colchicine 2021-11 Yes [id number] .6mg Take 1 Univers 0.6 mg 1-01 tablet by ity of tablet 00:00: mouth in [place] the Medical morning. Branch colchicine 2021-11 Yes [id number] .6mg Take 1 [facility] 0.6 mg 1-01 tablet by ity of tablet 00:00: mouth in [place] the Medical morning. Branch colchicine 2021-11 Yes [id number] .6mg Take 1 Univers 0.6 mg 1-01 tablet by ity of tablet 00:00: mouth in [place] the Medical morning. Branch colchicine 2021-11 Yes [id number] .6mg Take 1 Univers 0.6 mg 1-01 tablet by ity of tablet 00:00: mouth in [place] the Medical morning. Branch colchicine 2021-11 Yes [id number] .6mg Take 1 Univers 0.6 mg 1-01 tablet by ity of tablet 00:00: mouth in [place] 00 the Medical morning. Branch colchicine 2021-11 Yes [id number] .6mg Take 1 Univers 0.6 mg 1-01 tablet by ity of tablet 00:00: mouth in [place] 00 the Medical morning. Branch colchicine 2021-11 Yes [id number] .6mg Take 1 Univers 0.6 mg 1-01 tablet by ity of tablet 00:00: mouth in [place] 00 the Medical morning. Branch colchicine 2021-11 Yes [id number] .6mg Take 1 Univers 0.6 mg 1-01 tablet by ity of tablet 00:00: mouth in [place] the Medical morning. Branch colchicine 2021-11 Yes [id number] .6mg Take 1 Univers 0.6 mg 1-01 tablet by ity of tablet 00:00: mouth in [place] the Medical morning. Branch colchicine 2021-11 Yes [id number] .6mg Take 1 Univers 0.6 mg 1-01 tablet by ity of tablet 00:00: mouth in [place] the Medical morning. Branch colchicine 2021-11 Yes [id number] .6mg Take 1 Univers 0.6 mg 1-01 tablet by ity of tablet 00:00: mouth in [place] the Medical morning. Branch colchicine 2021-11 Yes [id number] .6mg Take 1 [facility] 0.6 mg 1-01 tablet by [facility] of tablet 00:00: mouth in [place] the Medical morning. Branch colchicine 2021-11 Yes [id number] .6mg Take 1 [facility] 0.6 mg 1-01 tablet by ity of tablet 00:00: mouth in [place] the Medical morning. Branch colchicine 2021-11 Yes [id number] .6mg Take 1 [facility] 0.6 mg 1-01 tablet by ity of tablet 00:00: mouth in [place] the Medical morning. Branch colchicine 2021-11 Yes [id number] .6mg Take 1 [facility] 0.6 mg 1-01 tablet by ity of tablet 00:00: mouth in [place] the Medical morning. Branch colchicine 2021-11 Yes [id number] .6mg Take 1 [facility] 0.6 mg 1-01 tablet by [facility]y of tablet 00:00: mouth in [place] 00 the Medical morning. Branch colchicine 2021-11 Yes [id number] .6mg Take 1 [facility] 0.6 mg 1-01 tablet by ity of tablet 00:00: mouth in [place] 00 the Medical morning. Branch colchicine 2021-11 Yes [id number] .6mg Take 1 [facility] 0.6 mg 1-01 tablet by ity of tablet 00:00: mouth in [place] 00 the Medical morning. Branch colchicine 2021- Yes [id number] .6mg Take 1 [facility] 0.6 mg 1-01 tablet by [facility]y of tablet 00:00: mouth in [place] 00 the Medical morning. Branch colchicine 2021-11 Yes [id number] .6mg Take 1 [facility] 0.6 mg 1-01 tablet by [facility]y of tablet 00:00: mouth in [place] 00 the Medical morning. Branch colchicine 2021-11 Yes [id number] .6mg Take 1 [facility] 0.6 mg 1-01 tablet by ity of tablet 00:00: mouth in [place] 00 the Medical morning. Branch colchicine 2021-11 Yes [id number] .6mg Take 1 [facility] 0.6 mg 1-01 tablet by ity of tablet 00:00: mouth in [place] 00 the Medical morning. Branch colchicine 2021-11 Yes [id number] .6mg Take 1 [facility] 0.6 mg 1-01 tablet by ity of tablet 00:00: mouth in [place] 00 the Medical morning. Branch colchicine 2021-11 Yes [id number] .6mg Take 1 [facility] 0.6 mg 1-01 tablet by ity of tablet 00:00: mouth in [place] the Medical morning. Branch colchicine 2021-11 Yes [id number] .6mg Take 1 [facility] 0.6 mg 1-01 tablet by ity of tablet 00:00: mouth in [place] the Medical morning. Branch colchicine 2021-11 Yes [id number] .6mg Take 1 [facility] 0.6 mg 1-01 tablet by ity of tablet 00:00: mouth in [place] 00 the Medical morning. Branch colchicine 2021-11 Yes [id number] .6mg Take 1 [facility] 0.6 mg 1-01 tablet by ity of tablet 00:00: mouth in [place] the Medical morning. Branch colchicine 2021-11 Yes [id number] .6mg Take 1 [facility] 0.6 mg 1-01 tablet by ity of tablet 00:00: mouth in [place] 00 the Medical morning. Branch colchicine 2021-11 Yes [id number] .6mg Take 1 [facility] 0.6 mg 1-01 tablet by ity of tablet 00:00: mouth in [place] 00 the Medical morning. Branch colchicine 2021-11 Yes [id number] .6mg Take 1 [facility] 0.6 mg 1-01 tablet by ity of tablet 00:00: mouth in [place] 00 the Medical morning. Branch colchicine 2021-11 Yes [id number] .6mg Take 1 [facility] 0.6 mg 1-01 tablet by ity of tablet 00:00: mouth in [place] 00 the Medical morning. Branch colchicine 2021-11 Yes [id number] .6mg Take 1 [facility] 0.6 mg 1-01 tablet by [facility]y of tablet 00:00: mouth in [place] 00 the Medical morning. Branch colchicine 2021-11 Yes [id number] .6mg Take 1 [facility] 0.6 mg 1-01 tablet by ity of tablet 00:00: mouth in [place] 00 the Medical morning. Branch colchicine 2021-11 Yes [id number] .6mg Take 1 [facility] 0.6 mg 1-01 tablet by ity of tablet 00:00: mouth in [place] 00 the Medical morning. Branch colchicine 2021-11 Yes [id number] .6mg Take 1 [facility] 0.6 mg 1-01 tablet by ity of tablet 00:00: mouth in [place] 00 the Medical morning. Branch colchicine 2021-11- No [id number] .6mg Take 1 [facility] 0.6 mg 1-01 02-14 tablet by [facility]y of tablet 00:00: 00:00 mouth in [place] 00 :00 the Medical morning. Branch colchicine 2021-11- No [id number] .6mg Take 1 [facility] 0.6 mg 1-01 02-14 tablet by ity of tablet 00:00: 00:00 mouth in [place] 00 :00 the Medical morning. [place] insulin NPH 2021-11- No [id number] 15U inject 15 [facility] and regular 11-23 12- Units ity of human 70-30 00:00: 05:59 under the [place] 100 unit/mL 00 :00 skin every Me dical (70-30) morning Branch injection and evening for 30 days. insulin NPH 2021-11- No [id number] 15U inject 15 [facility] and regular - 12-02 Units ity of human 70-30 00:00: 05:59 under the [place] 100 unit/mL 00 :00 skin every Me dical (70-30) morning Branch injection and evening for 30 days. insulin NPH 2021-11- No [id number] 15U inject 15 [facility] and regular 11-23 12-02 Units ity of human 70-30 00:00: 05:59 under the [place] 100 unit/mL 00 :00 skin every Me dical (70-30) morning Branch injection and evening for 30 days. insulin NPH 2021-11- No [id number] 15U inject 15 [facility] and regular 11-23 11-07 Units ity of human 70-30 00:00: 00:00 under the [place] 100 unit/mL 00 :00 skin every Me dical (70-30) morning Branch injection and evening for 30 days. insulin NPH 2021-11- No [id number] 15U inject 15 [facility] and regular 11-23 [...] IV [place] 500 mL 00 :00 Piggyback, Medical ONCE, 1 Branch dose, On 09/22/22 at 1415, STAT Insulin 2021-11 Yes [id number] 10U inject 10 U nivers NPH-Regular 0-31 Units ity of Human Rec 00:00: under the [place] 100 unit/mL 00 skin 2 Medica l (70-30) (two) Branch injection times daily before breakfast and dinner. 150-199 take 1 unit 200-249 take 2 units 250-299 take 3 units 300-349 take 4 units Over 350 take 5 units aspirin 81 2021-11 Yes [id number] 81mg Take 1 [facility] mg chewable 0-31 tablet by ity of tablet 00:00: mouth in [place] 00 the Medical morning. Branch Insulin 2021-11 Yes [id number] 10U inject 10 [facility] n[facility] NPH-Regular 0-31 Units ity of Human Rec 00:00: under the [place] 100 unit/mL 00 skin 2 Medica l (70-30) (two) Branch injection times daily before breakfast and dinner. 150-199 take 1 unit 200-249 take 2 units 250-299 take 3 units 300-349 take 4 units Over 350 take 5 units aspirin 81 2021-11 Yes [id number] 81mg Take 1 [facility] mg chewable 0-31 tablet by ity of tablet 00:00: mouth in [place] 00 the Medical morning. Branch Insulin 2021-11 Yes [id number] 10U inject 10 [facility] n[facility] NPH-Regular 0-31 Units ity of Human Rec 00:00: under the [place] 100 unit/mL 00 skin 2 Medica l (70-30) (two) Branch injection times daily before breakfast and dinner. 150-199 take 1 unit 200-249 take 2 units 250-299 take 3 units 300-349 take 4 units Over 350 take 5 units aspirin 81 2021-11 Yes [id number] 81mg Take 1 [facility] mg chewable 0-31 tablet by ity of tablet 00:00: mouth in [place] 00 the Medical morning. Branch Insulin 2021-11 Yes [id number] 10U inject 10 [facility] n[facility] NPH-Regular 0-31 Units ity of Human Rec 00:00: under the [place] 100 unit/mL 00 skin 2 Medica l (70-30) (two) Branch injection times daily before breakfast and dinner. 150-199 take 1 unit 200-249 take 2 units 250-299 take 3 units 300-349 take 4 units Over 350 take 5 units aspirin 81 2021-11 Yes [id number] 81mg Take 1 [facility] mg chewable 0-31 tablet by ity of tablet 00:00: mouth in [place] 00 the Medical morning. Branch Insulin 2021-11 Yes [id number] 10U inject 10 [facility] n[facility] NPH-Regular 0-31 Units ity of Human Rec 00:00: under the [place] 100 unit/mL 00 skin 2 Medica l (70-30) (two) Branch injection times daily before breakfast and dinner. 150-199 take 1 unit 200-249 take 2 units 250-299 take 3 units 300-349 take 4 units Over 350 take 5 units aspirin 81 2021-11 Yes [id number] 81mg Take 1 [facility] mg chewable 0-31 tablet by ity of tablet 00:00: mouth in [place] the Medical morning. Branch Insulin 2021-11 Yes [id number] 10U inject 10 [facility] n[facility] NPH-Regular 0-31 Units ity of Human Rec 00:00: under the [place] 100 unit/mL 00 skin 2 Medica l (70-30) (two) Branch injection times daily before breakfast and dinner. 150-199 take 1 unit 200-249 take 2 units 250-299 take 3 units 300-349 take 4 units Over 350 take 5 units aspirin 81 2021-11 Yes [id number] 81mg Take 1 [facility] mg chewable 0-31 tablet by ity of tablet 00:00: mouth in [place] the Medical morning. Branch Insulin 2021-11 Yes [id number] 10U inject 10 [facility] n[facility] NPH-Regular 0-31 Units ity of Human Rec 00:00: under the [place] 100 unit/mL 00 skin 2 Medica l (70-30) (two) Branch injection times daily before breakfast and dinner. 150-199 take 1 unit 200-249 take 2 units 250-299 take 3 units 300-349 take 4 units Over 350 take 5 units aspirin 81 2021-11 Yes [id number] 81mg Take 1 [facility] mg chewable 0-31 tablet by ity of tablet 00:00: mouth in [place] the Medical morning. Branch aspirin 81 2021-11 Yes [id number] 81mg Take 1 [facility] mg chewable 0-31 tablet by ity of tablet 00:00: mouth in [place] the Medical morning. Branch aspirin 81 2021-11 Yes [id number] 81mg Take 1 [facility] mg chewable 0-31 tablet by ity of tablet 00:00: mouth in [place] the Medical morning. Branch aspirin 81 2021-11 Yes [id number] 81mg Take 1 [facility] mg chewable 0-31 tablet by ity of tablet 00:00: mouth in [place] the Medical morning. Branch aspirin 81 2021-11 Yes [id number] 81mg Take 1 [facility] mg chewable 0-31 tablet by ity of tablet 00:00: mouth in [place] the Medical morning. Branch aspirin 81 2021-11 Yes [id number] 81mg Take 1 [facility] mg chewable 0-31 tablet by ity of tablet 00:00: mouth in [place] 00 the Medical morning. Branch aspirin 81 2021-11 Yes [id number] 81mg Take 1 [facility] mg chewable 0-31 tablet by ity of tablet 00:00: mouth in [place] the Medical morning. Branch aspirin 81 2021-11 Yes [id number] 81mg Take 1 [facility] mg chewable 0-31 tablet by ity of tablet 00:00: mouth in [place] the Medical morning. Branch aspirin 81 2021-11 Yes [id number] 81mg Take 1 [facility] mg chewable 0-31 tablet by ity of tablet 00:00: mouth in [place] 00 the Medical morning. Branch aspirin 81 2021-11 Yes [id number] 81mg Take 1 [facility] mg chewable 0-31 tablet by ity of tablet 00:00: mouth in [place] the Medical morning. Branch aspirin 81 2021-11 Yes [id number] 81mg Take 1 [facility] mg chewable 0-31 tablet by ity of tablet 00:00: mouth in [place] the Medical morning. Branch aspirin 81 2021-11 Yes [id number] 81mg Take 1 [facility] mg chewable 0-31 tablet by ity of tablet 00:00: mouth in [place] the Medical morning. Branch aspirin 81 2021-11 Yes [id number] 81mg Take 1 [facility] mg chewable 0-31 tablet by ity of tablet 00:00: mouth in [place] the Medical morning. Branch aspirin 81 2021-11 Yes [id number] 81mg Take 1 [facility] mg chewable 0-31 tablet by ity of tablet 00:00: mouth in [place] the Medical morning. Branch aspirin 81 2021-11 Yes [id number] 81mg Take 1 [facility] mg chewable 0-31 tablet by ity of tablet 00:00: mouth in [place] the Medical morning. Branch aspirin 81 2021-11 Yes [id number] 81mg Take 1 [facility] mg chewable 0-31 tablet by ity of tablet 00:00: mouth in [place] 00 the Medical morning. Branch aspirin 81 2021-11 Yes [id number] 81mg Take 1 [facility] mg chewable 0-31 tablet by ity of tablet 00:00: mouth in [place] 00 the Medical morning. Branch aspirin 81 2021-11 Yes [id number] 81mg Take 1 [facility] mg chewable 0-31 tablet by ity of tablet 00:00: mouth in [place] 00 the Medical morning. Branch aspirin 81 2021-11 Yes [id number] 81mg Take 1 [facility] mg chewable 0-31 tablet by ity of tablet 00:00: mouth in [place] 00 the Medical morning. Branch aspirin 81 2021-11 Yes [id number] 81mg Take 1 [facility] mg chewable 0-31 tablet by ity of tablet 00:00: mouth in [place] 00 the Medical morning. Branch aspirin 81 2021-11 Yes [id number] 81mg Take 1 [facility] mg chewable 0-31 tablet by ity of tablet 00:00: mouth in [place] 00 the Medical morning. Branch aspirin 81 2021-11 Yes [id number] 81mg Take 1 [facility] mg chewable 0-31 tablet by ity of tablet 00:00: mouth in [place] 00 the Medical morning. Branch aspirin 81 2021-11 Yes [id number] 81mg Take 1 [facility] mg chewable 0-31 tablet by ity of tablet 00:00: mouth in [place] the Medical morning. Branch aspirin 81 2021-11 Yes [id number] 81mg Take 1 [facility] mg chewable 0-31 tablet by ity of tablet 00:00: mouth in [place] 00 the Medical morning. Branch aspirin 81 2021-11 Yes [id number] 81mg Take 1 [facility] mg chewable 0-31 tablet by ity of tablet 00:00: mouth in [place] the Medical morning. Branch aspirin 81 2021-11 Yes [id number] 81mg Take 1 [facility] mg chewable 0-31 tablet by ity of tablet 00:00: mouth in [place] the Medical morning. Branch aspirin 81 2021-11 Yes [id number] 81mg Take 1 [facility] mg chewable 0-31 tablet by ity of tablet 00:00: mouth in [place] the Medical morning. Branch aspirin 81 2021-11 Yes [id number] 81mg Take 1 [facility] mg chewable 0-31 tablet by ity of tablet 00:00: mouth in [place] 00 the Medical morning. Branch aspirin 81 2021-11 Yes [id number] 81mg Take 1 [facility] mg chewable 0-31 tablet by ity of tablet 00:00: mouth in [place] 00 the Medical morning. Branch aspirin 81 2021-11 Yes [id number] 81mg Take 1 [facility] mg chewable 0-31 tablet by ity of tablet 00:00: mouth in [place] 00 the Medical morning. Branch aspirin 81 2021-11 Yes [id number] 81mg Take 1 [facility] mg chewable 0-31 tablet by ity of tablet 00:00: mouth in [place] 00 the Medical morning. Branch aspirin 81 2021-11 Yes [id number] 81mg Take 1 [facility] mg chewable 0-31 tablet by ity of tablet 00:00: mouth in [place] the Medical morning. Branch aspirin 81 2021-11 Yes [id number] 81mg Take 1 [facility] mg chewable 0-31 tablet by ity of tablet 00:00: mouth in [place] 00 the Medical morning. Branch aspirin 81 2021-11 Yes [id number] 81mg Take 1 [facility] mg chewable 0-31 tablet by ity of tablet 00:00: mouth in [place] the Medical morning. Branch aspirin 81 2021-11 Yes [id number] 81mg Take 1 [facility] mg chewable 0-31 tablet by ity of tablet 00:00: mouth in [place] the Medical morning. Branch aspirin 81 2021-11 Yes [id number] 81mg Take 1 [facility] mg chewable 0-31 tablet by ity of tablet 00:00: mouth in [place] the Medical morning. Branch aspirin 81 2021-11 Yes [id number] 81mg Take 1 [facility] mg chewable 0-31 tablet by ity of tablet 00:00: mouth in [place] the Medical morning. Branch aspirin 81 2021-11 Yes [id number] 81mg Take 1 [facility] mg chewable 0-31 tablet by ity of tablet 00:00: mouth in [place] the Medical morning. Branch aspirin 81 2021-11 Yes [id number] 81mg Take 1 [facility] mg chewable 0-31 tablet by ity of tablet 00:00: mouth in [place] the Medical morning. Branch aspirin 81 2021-11 Yes [id number] 81mg Take 1 [facility] mg chewable 0-31 tablet by ity of tablet 00:00: mouth in [place] 00 the Medical morning. Branch aspirin 81 2021-11 Yes [id number] 81mg Take 1 [facility] mg chewable 0-31 tablet by ity of tablet 00:00: mouth in [place] 00 the Medical morning. Branch aspirin 81 2021-11 Yes [id number] 81mg Take 1 [facility] mg chewable 0-31 tablet by ity of tablet 00:00: mouth in [place] 00 the Medical morning. Branch aspirin 81 2021-11 Yes [id number] 81mg Take 1 [facility] mg chewable 0-31 tablet by ity of tablet 00:00: mouth in [place] 00 the Medical morning. Branch aspirin 81 2021-11 Yes [id number] 81mg Take 1 [facility] mg chewable 0-31 tablet by ity of tablet 00:00: mouth in [place] 00 the Medical morning. Branch aspirin 81 2021-11 Yes [id number] 81mg Take 1 [facility] mg chewable 0-31 tablet by ity of tablet 00:00: mouth in [place] 00 the Medical morning. Branch aspirin 81 2021-11 Yes [id number] 81mg Take 1 [facility] mg chewable 0-31 tablet by ity of tablet 00:00: mouth in [place] 00 the Medical morning. Branch aspirin 81 2021-11 Yes [id number] 81mg Take 1 [facility] mg chewable 0-31 tablet by ity of tablet 00:00: mouth in [place] 00 the Medical morning. Branch aspirin 81 2021-11 Yes [id number] 81mg Take 1 [facility] mg chewable 0-31 tablet by ity of tablet 00:00: mouth in [place] 00 the Medical morning. Branch aspirin 81 2021-11 Yes [id number] 81mg Take 1 [facility] mg chewable 0-31 tablet by ity of tablet 00:00: mouth in [place] 00 the Medical morning. Branch aspirin 81 2021-11 Yes [id number] 81mg Take 1 [facility] mg chewable 0-31 tablet by ity of tablet 00:00: mouth in [place] 00 the Medical morning. Branch aspirin 81 2021-11 Yes [id number] 81mg Take 1 [facility] mg chewable 0-31 tablet by ity of tablet 00:00: mouth in [place] 00 the Medical morning. Branch aspirin 81 2021-11 Yes [id number] 81mg Take 1 [facility] mg chewable 0-31 tablet by ity of tablet 00:00: mouth in [place] 00 the Medical morning. Branch aspirin 81 2021-11 Yes [id number] 81mg Take 1 [facility] mg chewable 0-31 tablet by ity of tablet 00:00: mouth in [place] 00 the Medical morning. Branch aspirin 81 2021-11 Yes [id number] 81mg Take 1 [facility] mg chewable 0-31 tablet by ity of tablet 00:00: mouth in [place] 00 the Medical morning. Branch aspirin 81 2021-11 Yes [id number] 81mg Take 1 [facility] mg chewable 0-31 tablet by ity of tablet 00:00: mouth in [place] 00 the Medical morning. Branch aspirin 81 2021-11 Yes [id number] 81mg Take 1 [facility] mg chewable 0-31 tablet by ity of tablet 00:00: mouth in [place] the Medical morning. Branch aspirin 81 2021-11 Yes [id number] 81mg Take 1 [facility] mg chewable 0-31 tablet by ity of tablet 00:00: mouth in [place] the Medical morning. Branch aspirin 81 2021-11 Yes [id number] 81mg Take 1 [facility] mg chewable 0-31 tablet by ity of tablet 00:00: mouth in [place] the Medical morning. Branch aspirin 81 2021-11 Yes [id number] 81mg Take 1 [facility] mg chewable 0-31 tablet by ity of tablet 00:00: mouth in [place] the Medical morning. Branch aspirin 81 2021-11 Yes [id number] 81mg Take 1 [facility] mg chewable 0-31 tablet by ity of tablet 00:00: mouth in [place] the Medical morning. Branch aspirin 81 2021-11 Yes [id number] 81mg Take 1 [facility] mg chewable 0-31 tablet by ity of tablet 00:00: mouth in [place] the Medical morning. Branch aspirin 81 2021-11 Yes [id number] 81mg Take 1 [facility] mg chewable 0-31 tablet by ity of tablet 00:00: mouth in [place] the Medical morning. Branch aspirin 81 2021-11 Yes [id number] 81mg Take 1 [facility] mg chewable 0-31 tablet by ity of tablet 00:00: mouth in [place] the Medical morning. Branch aspirin 81 2021-11 Yes [id number] 81mg Take 1 [facility] mg chewable 0-31 tablet by ity of tablet 00:00: mouth in [place] the Medical morning. Branch aspirin 81 2021-11 Yes [id number] 81mg Take 1 [facility] mg chewable 0-31 tablet by ity of tablet 00:00: mouth in [place] 00 the Medical morning. Branch aspirin 81 2021-11 Yes [id number] 81mg Take 1 [facility] mg chewable 0-31 tablet by ity of tablet 00:00: mouth in [place] 00 the Medical morning. Branch aspirin 81 2021-11 Yes [id number] 81mg Take 1 [facility] mg chewable 0-31 tablet by ity of tablet 00:00: mouth in [place] 00 the Medical morning. Branch aspirin 81 2021-11 Yes [id number] 81mg Take 1 [facility] mg chewable 0-31 tablet by ity of tablet 00:00: mouth in [place] 00 the Medical morning. Branch aspirin 81 2021-11 Yes [id number] 81mg Take 1 [facility] mg chewable 0-31 tablet by ity of tablet 00:00: mouth in [place] 00 the Medical morning. Branch Insulin 2021-11- No [id number] 10U inject 10 [facility] NPH-Regular 0-31 11-07 Units ity of Human Rec 00:00: 00:00 under the [place] 100 unit/mL 00 :00 skin 2 Medica l (70-30) (two) Branch injection times daily before breakfast and dinner. 150-199 take 1 unit 200-249 take 2 units 250-299 take 3 units 300-349 take 4 units Over 350 take 5 units Insulin 2021-11- No [id number] 10U inject 10 [facility] NPH-Regular 0-31 11-07 Units ity of Human Rec 00:00: 00:00 under the [place] 100 unit/mL 00 :00 skin 2 Medica l (70-30) (two) Branch injection times daily before breakfast and dinner. 150-199 take 1 unit 200-249 take 2 units 250-299 take 3 units 300-349 take 4 units Over 350 take 5 units allopurinoL 2021-11 Yes [id number] 100mg Take 1 [facility] 100 mg 0-26 tablet by ity of tablet 00:00: mouth in [place] 00 the Medical morning. Branch flash 2021-11 Yes [id number] 1{each} inject 1 Un lesly glucose 0-26 Each under ity of sensor 00:00: the skin [place] (FREESTYLE 00 every 2 Medica l CHON 2 (two) Branch SENSOR) Kit weeks. allopurinoL 2021-11 Yes [id number] 100mg Take 1 [facility] 100 mg 0-26 tablet by ity of tablet 00:00: mouth in [place] 00 the Medical morning. Branch flash 2021-11 Yes [id number] 1{each} inject 1 Un lesly glucose 0-26 Each under ity of sensor 00:00: the skin [place] (FREESTYLE 00 every 2 Medica l CHON 2 (two) Branch SENSOR) Kit weeks. allopurinoL 2021-11 Yes [id number] 100mg Take 1 [facility] 100 mg 0-26 tablet by ity of tablet 00:00: mouth in [place] 00 the Medical morning. Branch flash 2021-11 Yes [id number] 1{each} inject 1 Un lesly glucose 0-26 Each under ity of sensor 00:00: the skin [place] (FREESTYLE 00 every 2 Medica l CHON 2 (two) Branch SENSOR) Kit weeks. allopurinoL 2021-11 Yes [id number] 100mg Take 1 [facility] 100 mg 0-26 tablet by ity of tablet 00:00: mouth in [place] 00 the Medical morning. Branch flash 2021-11 Yes [id number] 1{each} inject 1 Un lesly glucose 0-26 Each under ity of sensor 00:00: the [facility] (FREESTYLE 00 every 2 Medica l CHON 2 (two) Branch SENSOR) Kit weeks. allopurinoL 2021-11 Yes [id number] 100mg Take 1 [facility] 100 mg 0-26 tablet by ity of tablet 00:00: mouth in [place] 00 the Medical morning. Branch flash 2021-11 Yes [id number] 1{each} inject 1 Un lesly glucose 0-26 Each under ity of sensor 00:00: the [facility] (FREESTYLE 00 every 2 Medica l CHON 2 (two) Branch SENSOR) Kit weeks. allopurinoL 2021-11 Yes [id number] 100mg Take 1 [facility] 100 mg 0-26 tablet by ity of tablet 00:00: mouth in [place] 00 the Medical morning. Branch flash 2021-11 Yes [id number] 1{each} inject 1 Un lesly glucose 0-26 Each under ity of sensor 00:00: the [facility] (FREESTYLE 00 every 2 Medica l CHON 2 (two) Branch SENSOR) Kit weeks. allopurinoL 2021-11 Yes [id number] 100mg Take 1 [facility] 100 mg 0-26 tablet by ity of tablet 00:00: mouth in [place] 00 the Medical morning. Branch flash 2021-11 Yes [id number] 1{each} inject 1 Un lesly glucose 0-26 Each under ity of sensor 00:00: the skin [place] (FREESTYLE 00 every 2 Medica l CHON 2 (two) Branch SENSOR) Kit weeks. allopurinoL 2021-11 Yes [id number] 100mg Take 1 [facility] 100 mg 0-26 tablet by ity of tablet 00:00: mouth in [place] 00 the Medical morning. Tabatha busby 2021-11 Yes [id number] 1{each} inject 1 Un lesly glucose 0-26 Each under ity of sensor 00:00: the [facility] (FREESTYLE 00 every 2 Medica l CHON 2 (two) Branch SENSOR) Kit weeks. allopurinoL 2021-11 Yes [id number] 100mg Take 1 [facility] 100 mg 0-26 tablet by ity of tablet 00:00: mouth in [place] 00 the Medical morning. Tabatah busby 2021-11 Yes [id number] 1{each} inject 1 Un lesly glucose 0-26 Each under ity of sensor 00:00: the [facility] (FREESTYLE 00 every 2 Medica l CHON 2 (two) Branch SENSOR) Kit weeks. allopurinoL 2021-11 Yes [id number] 100mg Take 1 [facility] 100 mg 0-26 tablet by ity of tablet 00:00: mouth in [place] 00 the Medical morning. Tabatha busby 2021-11 Yes [id number] 1{each} inject 1 Un lesly glucose 0-26 Each under ity of sensor 00:00: the [facility] (FREESTYLE 00 every 2 Medica l CHON 2 (two) Branch SENSOR) Kit weeks. allopurinoL 2021-11 Yes [id number] 100mg Take 1 [facility] 100 mg 0-26 tablet by ity of tablet 00:00: mouth in [place] 00 the Medical morning. Tabatha busby 2021-11 Yes [id number] 1{each} inject 1 Un lesly glucose 0-26 Each under ity of sensor 00:00: the [facility] (FREESTYLE 00 every 2 Medica l CHON 2 (two) Branch SENSOR) Kit weeks. allopurinoL 2021-11 Yes [id number] 100mg Take 1 [facility] 100 mg 0-26 tablet by ity of tablet 00:00: mouth in [place] 00 the Medical morning. Tabatha busby 2021-11 Yes [id number] 1{each} inject 1 Un lesly glucose 0-26 Each under ity of sensor 00:00: the [facility] (FREESTYLE 00 every 2 Medica l CHON 2 (two) Branch SENSOR) Kit weeks. allopurinoL 2021-11 Yes [id number] 100mg Take 1 [facility] 100 mg 0-26 tablet by ity of tablet 00:00: mouth in [place] 00 the Medical morning. Branch flash 2021- Yes [id number] 1{each} inject 1 Un lesly glucose 0-26 Each under ity of sensor 00:00: the skin [place] (FREESTYLE 00 every 2 Medica l CHON 2 (two) Branch SENSOR) Kit weeks. allopurinoL 2021-11 Yes [id number] 100mg Take 1 [facility] 100 mg 0-26 tablet by ity of tablet 00:00: mouth in [place] 00 the Medical morning. Branch flash 2021- Yes [id number] 1{each} inject 1 Un lesly glucose 0-26 Each under ity of sensor 00:00: the skin [place] (FREESTYLE 00 every 2 Medica l CHON 2 (two) Branch SENSOR) Kit weeks. flash 2021- Yes [id number] 1{each} inject 1 Un lesly glucose 0-26 Each under ity of sensor 00:00: the skin [place] (FREESTYLE 00 every 2 Medica l CHON 2 (two) Branch SENSOR) Kit weeks. flash 2021- Yes [id number] 1{each} inject 1 Un lesly glucose 0-26 Each under ity of sensor 00:00: the skin [place] (FREESTYLE 00 every 2 Medica l CHON 2 (two) Branch SENSOR) Kit weeks. flash 2021- Yes [id number] 1{each} inject 1 Un lesly glucose 0-26 Each under ity of sensor 00:00: the skin [place] (FREESTYLE 00 every 2 Medica l CHON 2 (two) Branch SENSOR) Kit weeks. flash 2021- Yes [id number] 1{each} inject 1 Un lesly glucose 0-26 Each under ity of sensor 00:00: the skin [place] (FREESTYLE 00 every 2 Medica l CHON 2 (two) Branch SENSOR) Kit weeks. flash 2021- Yes [id number] 1{each} inject 1 Un lesly glucose 0-26 Each under ity of sensor 00:00: the skin [place] (FREESTYLE 00 every 2 Medica l CHON 2 (two) Branch SENSOR) Kit weeks. flash 2021- Yes [id number] 1{each} inject 1 Un lesly glucose 0-26 Each under ity of sensor 00:00: the skin [place] (FREESTYLE 00 every 2 Medica l CHON 2 (two) Branch SENSOR) Kit weeks. flash 2021- Yes [id number] 1{each} inject 1 Un lesly glucose 0-26 Each under ity of sensor 00:00: the skin [place] (FREESTYLE 00 every 2 Medica l CHON 2 (two) Branch SENSOR) Kit weeks. flash 2021- Yes [id number] 1{each} inject 1 Un lesly glucose 0-26 Each under ity of sensor 00:00: the skin [place] (FREESTYLE 00 every 2 Medica l CHON 2 (two) Branch SENSOR) Kit weeks. flash 2021- Yes [id number] 1{each} inject 1 Un lesly glucose 0-26 Each under ity of sensor 00:00: the skin [place] (FREESTYLE 00 every 2 Medica l CHON 2 (two) Branch SENSOR) Kit weeks. flash 2021- Yes [id number] 1{each} inject 1 Un lesly glucose 0-26 Each under ity of sensor 00:00: the skin [place] (FREESTYLE 00 every 2 Medica l CHON 2 (two) Branch SENSOR) Kit weeks. flash 2021- Yes [id number] 1{each} inject 1 Un lesly glucose 0-26 Each under ity of sensor 00:00: the skin [place] (FREESTYLE 00 every 2 Medica l CHON 2 (two) Branch SENSOR) Kit weeks. flash 2021- Yes [id number] 1{each} inject 1 Un lesly glucose 0-26 Each under ity of sensor 00:00: the skin [place] (FREESTYLE 00 every 2 Medica l CHON 2 (two) Branch SENSOR) Kit weeks. flash 2021- Yes [id number] 1{each} inject 1 Un lesly glucose 0-26 Each under ity of sensor 00:00: the skin [place] (FREESTYLE 00 every 2 Medica l CHON 2 (two) Branch SENSOR) Kit weeks. flash 2021- Yes [id number] 1{each} inject 1 Un lesly glucose 0-26 Each under ity of sensor 00:00: the skin [place] (FREESTYLE 00 every 2 Medica l CHON 2 (two) Branch SENSOR) Kit weeks. flash 2021- Yes [id number] 1{each} inject 1 Un lesly glucose 0-26 Each under ity of sensor 00:00: the skin [place] (FREESTYLE 00 every 2 Medica l CHON 2 (two) Branch SENSOR) Kit weeks. flash 2021-11 Yes [id number] 1{each} inject 1 Un lesly glucose 0-26 Each under ity of sensor 00:00: the skin [place] (FREESTYLE 00 every 2 Medica l CHON 2 (two) Branch SENSOR) Kit weeks. flash 2021- Yes [id number] 1{each} inject 1 Un lesly glucose 0-26 Each under ity of sensor 00:00: the skin [place] (FREESTYLE 00 every 2 Medica l CHON 2 (two) Branch SENSOR) Kit weeks. flash 2021- Yes [id number] 1{each} inject 1 Un lesly glucose 0-26 Each under ity of sensor 00:00: the skin [place] (FREESTYLE 00 every 2 Medica l CHON 2 (two) Branch SENSOR) Kit weeks. flash 2021-11 Yes [id number] 1{each} inject 1 Un lesly glucose 0-26 Each under ity of sensor 00:00: the skin [place] (FREESTYLE 00 every 2 Medica l CHON 2 (two) Branch SENSOR) Kit weeks. flash 2021-11 Yes [id number] 1{each} inject 1 Un lesly glucose 0-26 Each under ity of sensor 00:00: the skin [place] (FREESTYLE 00 every 2 Medica l CHON 2 (two) Branch SENSOR) Kit weeks. flash 2021-11 Yes [id number] 1{each} inject 1 Un lesly glucose 0-26 Each under ity of sensor 00:00: the skin [place] (FREESTYLE 00 every 2 Medica l CHON 2 (two) Branch SENSOR) Kit weeks. flash 2021- Yes [id number] 1{each} inject 1 Un lesly glucose 0-26 Each under ity of sensor 00:00: the skin [place] (FREESTYLE 00 every 2 Medica l CHON 2 (two) Branch SENSOR) Kit weeks. flash 2021- Yes [id number] 1{each} inject 1 Un lesly glucose 0-26 Each under ity of sensor 00:00: the skin [place] (FREESTYLE 00 every 2 Medica l CHON 2 (two) Branch SENSOR) Kit weeks. flash 2021- Yes [id number] 1{each} inject 1 Un lesly glucose 0-26 Each under ity of sensor 00:00: the skin [place] (FREESTYLE 00 every 2 Medica l CHON 2 (two) Branch SENSOR) Kit weeks. flash 2021- Yes [id number] 1{each} inject 1 Un lesly glucose 0-26 Each under ity of sensor 00:00: the skin [place] (FREESTYLE 00 every 2 Medica l CHON 2 (two) Branch SENSOR) Kit weeks. flash 2021- Yes [id number] 1{each} inject 1 Un lesly glucose 0-26 Each under ity of sensor 00:00: the skin [place] (FREESTYLE 00 every 2 Medica l CHON 2 (two) Branch SENSOR) Kit weeks. flash 2021-11 Yes [id number] 1{each} inject 1 Un lesly glucose 0-26 Each under ity of sensor 00:00: the skin [place] (FREESTYLE 00 every 2 Medica l CHON 2 (two) Branch SENSOR) Kit weeks. flash 2021-11 Yes [id number] 1{each} inject 1 Un lesly glucose 0-26 Each under ity of sensor 00:00: the skin [place] (FREESTYLE 00 every 2 Medica l CHON 2 (two) Branch SENSOR) Kit weeks. flash 2021- Yes [id number] 1{each} inject 1 Un lesly glucose 0-26 Each under ity of sensor 00:00: the skin [place] (FREESTYLE 00 every 2 Medica l CHON 2 (two) Branch SENSOR) Kit weeks. flash 2021- Yes [id number] 1{each} inject 1 Un lesly glucose 0-26 Each under ity of sensor 00:00: the skin [place] (FREESTYLE 00 every 2 Medica l CHON 2 (two) Branch SENSOR) Kit weeks. flash 2021- Yes [id number] 1{each} inject 1 Un lesly glucose 0-26 Each under ity of sensor 00:00: the skin [place] (FREESTYLE 00 every 2 Medica l CHON 2 (two) Branch SENSOR) Kit weeks. flash 2021- Yes [id number] 1{each} inject 1 Un lesly glucose 0-26 Each under ity of sensor 00:00: the skin [place] (FREESTYLE 00 every 2 Medica l CHON 2 (two) Branch SENSOR) Kit weeks. flash 2021- Yes [id number] 1{each} inject 1 Un lesly glucose 0-26 Each under ity of sensor 00:00: the skin [place] (FREESTYLE 00 every 2 Medica l CHON 2 (two) Branch SENSOR) Kit weeks. flash 2021- Yes [id number] 1{each} inject 1 Un lesly glucose 0-26 Each under ity of sensor 00:00: the skin [place] (FREESTYLE 00 every 2 Medica l CHON 2 (two) Branch SENSOR) Kit weeks. flash 2021- Yes [id number] 1{each} inject 1 Un lesly glucose 0-26 Each under ity of sensor 00:00: the skin [place] (FREESTYLE 00 every 2 Medica l CHON 2 (two) Branch SENSOR) Kit weeks. flash 2021- Yes [id number] 1{each} inject 1 Un lesly glucose 0-26 Each under ity of sensor 00:00: the skin [place] (FREESTYLE 00 every 2 Medica l CHON 2 (two) Branch SENSOR) Kit weeks. flash 2021- Yes [id number] 1{each} inject 1 Un lesly glucose 0-26 Each under ity of sensor 00:00: the skin [place] (FREESTYLE 00 every 2 Medica l CHON 2 (two) Branch SENSOR) Kit weeks. flash 2021- Yes [id number] 1{each} inject 1 Un lesly glucose 0-26 Each under ity of sensor 00:00: the skin [place] (FREESTYLE 00 every 2 Medica l CHON 2 (two) Branch SENSOR) Kit weeks. flash 2021- Yes [id number] 1{each} inject 1 Un lesly glucose 0-26 Each under ity of sensor 00:00: the skin [place] (FREESTYLE 00 every 2 Medica l CHON 2 (two) Branch SENSOR) Kit weeks. flash 2021- Yes [id number] 1{each} inject 1 Un lesly glucose 0-26 Each under ity of sensor 00:00: the skin [place] (FREESTYLE 00 every 2 Medica l CHON 2 (two) Branch SENSOR) Kit weeks. flash 2021- Yes [id number] 1{each} inject 1 Un lesly glucose 0-26 Each under ity of sensor 00:00: the skin [place] (FREESTYLE 00 every 2 Medica l CHON 2 (two) Branch SENSOR) Kit weeks. flash 2021- Yes [id number] 1{each} inject 1 Un lesly glucose 0-26 Each under ity of sensor 00:00: the skin [place] (FREESTYLE 00 every 2 Medica l CHON 2 (two) Branch SENSOR) Kit weeks. flash 2021- Yes [id number] 1{each} inject 1 Un lesly glucose 0-26 Each under ity of sensor 00:00: the skin [place] (FREESTYLE 00 every 2 Medica l CHON 2 (two) Branch SENSOR) Kit weeks. flash 2021- Yes [id number] 1{each} inject 1 Un lesly glucose 0-26 Each under ity of sensor 00:00: the skin [place] (FREESTYLE 00 every 2 Medica l CHON 2 (two) Branch SENSOR) Kit weeks. flash 2021- Yes [id number] 1{each} inject 1 Un lesly glucose 0-26 Each under ity of sensor 00:00: the skin [place] (FREESTYLE 00 every 2 Medica l CHON 2 (two) Branch SENSOR) Kit weeks. flash 2021- Yes [id number] 1{each} inject 1 Un lesly glucose 0-26 Each under ity of sensor 00:00: the skin [place] (FREESTYLE 00 every 2 Medica l CHON 2 (two) Branch SENSOR) Kit weeks. flash 2021- Yes [id number] 1{each} inject 1 Un lesly glucose 0-26 Each under ity of sensor 00:00: the skin [place] (FREESTYLE 00 every 2 Medica l CHON 2 (two) Branch SENSOR) Kit weeks. flash 2021- Yes [id number] 1{each} inject 1 Un lesly glucose 0-26 Each under ity of sensor 00:00: the skin [place] (FREESTYLE 00 every 2 Medica l CHON 2 (two) Branch SENSOR) Kit weeks. flash 2021- Yes [id number] 1{each} inject 1 Un lesly glucose 0-26 Each under ity of sensor 00:00: the skin [place] (FREESTYLE 00 every 2 Medica l CHON 2 (two) Branch SENSOR) Kit weeks. flash 2021- Yes [id number] 1{each} inject 1 Un lesly glucose 0-26 Each under ity of sensor 00:00: the skin [place] (FREESTYLE 00 every 2 Medica l CHON 2 (two) Branch SENSOR) Kit weeks. flash 2021- Yes [id number] 1{each} inject 1 Un lesly glucose 0-26 Each under ity of sensor 00:00: the skin [place] (FREESTYLE 00 every 2 Medica l CHON 2 (two) Branch SENSOR) Kit weeks. flash 2021- Yes [id number] 1{each} inject 1 Un lesly glucose 0-26 Each under ity of sensor 00:00: the skin [place] (FREESTYLE 00 every 2 Medica l CHON 2 (two) Branch SENSOR) Kit weeks. flash 2021- Yes [id number] 1{each} inject 1 Un lesly glucose 0-26 Each under ity of sensor 00:00: the skin [place] (FREESTYLE 00 every 2 Medica l CHON 2 (two) Branch SENSOR) Kit weeks. flash 2021-11 Yes [id number] 1{each} inject 1 Un lesly glucose 0-26 Each under ity of sensor 00:00: the skin [place] (FREESTYLE 00 every 2 Medica l CHON 2 (two) Branch SENSOR) Kit weeks. flash 2021- Yes [id number] 1{each} inject 1 Un lesly glucose 0-26 Each under ity of sensor 00:00: the skin [place] (FREESTYLE 00 every 2 Medica l CHON 2 (two) Branch SENSOR) Kit weeks. flash 2021- Yes [id number] 1{each} inject 1 Un lesly glucose 0-26 Each under ity of sensor 00:00: the skin [place] (FREESTYLE 00 every 2 Medica l CHON 2 (two) Branch SENSOR) Kit weeks. flash 2021- Yes [id number] 1{each} inject 1 Un lesly glucose 0-26 Each under ity of sensor 00:00: the skin [place] (FREESTYLE 00 every 2 Medica l CHON 2 (two) Branch SENSOR) Kit weeks. flash 2021- Yes [id number] 1{each} inject 1 Un lesly glucose 0-26 Each under ity of sensor 00:00: the skin [place] (FREESTYLE 00 every 2 Medica l CHON 2 (two) Branch SENSOR) Kit weeks. flash 2021- Yes [id number] 1{each} inject 1 Un lesly glucose 0-26 Each under ity of sensor 00:00: the skin [place] (FREESTYLE 00 every 2 Medica l CHON 2 (two) Branch SENSOR) Kit weeks. flash 2021-11 Yes [id number] 1{each} inject 1 Un lesly glucose 0-26 Each under ity of sensor 00:00: the skin [place] (FREESTYLE 00 every 2 Medica l CHON 2 (two) Branch SENSOR) Kit weeks. flash 2021-11- No [id number] 1{each} inject 1 U nivers glucose 0-26 02-08 Each under ity o f sensor 00:00: 00:00 the skin [place] (FREESTYLE 00 :00 every 2 Medica l CHON 2 (two) Branch SENSOR) Kit weeks. allopurinoL 2021-11- No [id number] 100mg Take 1 [facility] 100 mg 0-26 11-07 tablet by ity of tablet 00:00: 00:00 mouth in [place] 00 :00 the Medical morning. Branch allopurinoL 2021-11- No [id number] 100mg Take 1 [facility] 100 mg 0-26 11-07 tablet by ity of tablet 00:00: 00:00 mouth in [place] 00 :00 the Medical morning. Branch furosemide 2021-11 Yes [id number] 80mg Take 2 [facility] (LASIX) 40 0-25 02 tablets by ity of mg tablet 00:00: mouth [place] 00 every Medical morning Branch and evening. furosemide 2021-11 Yes [id number] 80mg Take 2 [facility] (LASIX) 40 0-25 02 tablets by ity of mg tablet 00:00: mouth [place] 00 every Medical morning Branch and evening. KCL 20 mEq 2021-11 Yes [id number] 20meq Take 1 [facility] tablet 0-25 tablet by ity of 00:00: mouth in [place] 00 the Medical morning. Branch metoprolol 2021-11 Yes [id number] 50mg Take 1 U nivers succinate 0-25 tablet by ity o f XL 50 mg 24 00:00: mouth in [place] hr tablet 00 the Medical morning. Branch levothyroxi 2021-11 Yes [id number] 150ug Take 1 [facility] ne 150 mcg 0-25 tablet by ity of tablet 00:00: mouth [place] 00 every Medical morning. Branch cetirizine 2021-11 Yes [id number] 10mg Take 1 U nivers (ALLERGY 0-25 tablet by ity of RELIEF, 00:00: mouth in [place] CETIRIZINE, the [facility] ) 10 mg morning. Branch tablet furosemide 2021-11 Yes [id number] 80mg Take 2 [facility] (LASIX) 40 0-25 02 tablets by ity of mg tablet 00:00: mouth [place] 00 every Medical morning Branch and evening. empaglifloz 2021-11 Yes [id number] 10mg Take 1 [facility] in 0-25 tablet by ity of (JARDIANCE) 00:00: mouth [place] 10 mg 00 every Medical morning. Branch pantoprazol 2021-11 Yes [id number] 40mg Take 1 [facility] e 40 mg EC 0-25 tablet by ity of tablet 00:00: mouth in [place] 00 the Medical morning Branch and 1 tablet in the evening. KCL 20 mEq 2021-11 Yes [id number] 20meq Take 1 [facility] tablet 0-25 tablet by ity of 00:00: mouth in [place] 00 the Medical morning. Branch metoprolol 2021-11 Yes [id number] 50mg Take 1 U nivers succinate 0-25 tablet by ity o f XL 50 mg 24 00:00: mouth in [place] hr tablet 00 the Medical morning. Branch levothyroxi 2021-11 Yes [id number] 150ug Take 1 [facility] ne 150 mcg 0-25 tablet by ity of tablet 00:00: mouth [place] 00 every Medical morning. Branch cetirizine 2021-11 Yes [id number] 10mg Take 1 U nivers (ALLERGY 0-25 tablet by ity of RELIEF, 00:00: mouth in [place] CETIRIZINE, the [facility] ) 10 mg morning. Branch tablet furosemide 2021-11 Yes [id number] 80mg Take 2 [facility] (LASIX) 40 0-25 02 tablets by ity of mg tablet 00:00: mouth [place] 00 every Medical morning Branch and evening. empaglifloz 2021-11 Yes [id number] 10mg Take 1 [facility] in 0-25 tablet by ity of (JARDIANCE) 00:00: mouth [place] 10 mg 00 every Medical morning. Branch pantoprazol 2021-11 Yes [id number] 40mg Take 1 [facility] e 40 mg EC 0-25 tablet by ity of tablet 00:00: mouth in [place] 00 the Medical morning Branch and 1 tablet in the evening. KCL 20 mEq 2021-11 Yes [id number] 20meq Take 1 [facility] tablet 0-25 tablet by ity of 00:00: mouth in [place] 00 the Medical morning. Branch metoprolol 2021-11 Yes [id number] 50mg Take 1 U nivers succinate 0-25 tablet by ity o f XL 50 mg 24 00:00: mouth in [place] hr tablet 00 the Medical morning. Branch levothyroxi 2021-11 Yes [id number] 150ug Take 1 [facility] ne 150 mcg 0-25 tablet by ity of tablet 00:00: mouth [place] 00 every Medical morning. Branch cetirizine 2021-11 Yes [id number] 10mg Take 1 U nivers (ALLERGY 0-25 tablet by ity of RELIEF, 00:00: mouth in [place] CETIRIZINE, 00 the Medical ) 10 mg morning. Branch tablet furosemide 2021-11 Yes [id number] 80mg Take 2 [facility] (LASIX) 40 0-25 02 tablets by ity of mg tablet 00:00: mouth [place] 00 every Medical morning Branch and evening. empaglifloz 2021-11 Yes [id number] 10mg Take 1 [facility] in 0-25 tablet by ity of (JARDIANCE) 00:00: mouth [place] 10 mg 00 every Medical morning. Branch pantoprazol 2021-11 Yes [id number] 40mg Take 1 [facility] e 40 mg EC 0-25 tablet by ity of tablet 00:00: mouth in [place] the Medical morning Branch and 1 tablet in the evening. KCL 20 mEq 2021-11 Yes [id number] 20meq Take 1 [facility] tablet 0-25 tablet by ity of 00:00: mouth in [place] 00 the Medical morning. Branch metoprolol 2021-11 Yes [id number] 50mg Take 1 U nivers succinate 0-25 tablet by ity o f XL 50 mg 24 00:00: mouth in [place] hr tablet 00 the Medical morning. Branch levothyroxi 2021-11 Yes [id number] 150ug Take 1 [facility] ne 150 mcg 0-25 tablet by ity of tablet 00:00: mouth [place] 00 every Medical morning. Branch cetirizine 2021-11 Yes [id number] 10mg Take 1 U nivers (ALLERGY 0-25 tablet by ity of RELIEF, 00:00: mouth in [place] CETIRIZINE, 00 the Medical ) 10 mg morning. Branch tablet furosemide 2021-11 Yes [id number] 80mg Take 2 [facility] (LASIX) 40 0-25 02 tablets by ity of mg tablet 00:00: mouth [place] 00 every Medical morning Branch and evening. empaglifloz 2021-11 Yes [id number] 10mg Take 1 [facility] in 0-25 tablet by ity of (JARDIANCE) 00:00: mouth [place] 10 mg 00 every Medical morning. Branch pantoprazol 2021-11 Yes [id number] 40mg Take 1 [facility] e 40 mg EC 0-25 tablet by ity of tablet 00:00: mouth in [place] 00 the Medical morning Branch and 1 tablet in the evening. KCL 20 mEq 2021-11 Yes [id number] 20meq Take 1 [facility] tablet 0-25 tablet by ity of 00:00: mouth in [place] 00 the Medical morning. Branch metoprolol 2021-11 Yes [id number] 50mg Take 1 U nivers succinate 0-25 tablet by ity o f XL 50 mg 24 00:00: mouth in [place] hr tablet 00 the Medical morning. Branch levothyroxi 2021-11 Yes [id number] 150ug Take 1 [facility] ne 150 mcg 0-25 tablet by ity of tablet 00:00: mouth [place] 00 every Medical morning. Branch cetirizine 2021-11 Yes [id number] 10mg Take 1 U nivers (ALLERGY 0-25 tablet by ity of RELIEF, 00:00: mouth in [place] CETIRIZINE, 00 the [facility] ) 10 mg morning. Branch tablet furosemide 2021-11 Yes [id number] 80mg Take 2 [facility] (LASIX) 40 0-25 02 tablets by ity of mg tablet 00:00: mouth [place] 00 every Medical morning Branch and evening. empaglifloz 2021-11 Yes [id number] 10mg Take 1 [facility] in 0-25 tablet by ity of (JARDIANCE) 00:00: mouth [place] 10 mg 00 every Medical morning. Branch pantoprazol 2021-11 Yes [id number] 40mg Take 1 [facility] e 40 mg EC 0-25 tablet by ity of tablet 00:00: mouth in [place] 00 the Medical morning Branch and 1 tablet in the evening. KCL 20 mEq 2021-11 Yes [id number] 20meq Take 1 [facility] tablet 0-25 tablet by ity of 00:00: mouth in [place] 00 the Medical morning. Branch metoprolol 2021-11 Yes [id number] 50mg Take 1 U nivers succinate 0-25 tablet by ity o f XL 50 mg 24 00:00: mouth in [place] hr tablet 00 the Medical morning. Branch levothyroxi 2021-11 Yes [id number] 150ug Take 1 [facility] ne 150 mcg 0-25 tablet by ity of tablet 00:00: mouth [place] 00 every Medical morning. Branch cetirizine 2021-11 Yes [id number] 10mg Take 1 U nivers (ALLERGY 0-25 tablet by ity of RELIEF, 00:00: mouth in [place] CETIRIZINE, the [facility] ) 10 mg morning. Branch tablet furosemide 2021-11 Yes [id number] 80mg Take 2 [facility] (LASIX) 40 0-25 02 tablets by ity of mg tablet 00:00: mouth [place] 00 every Medical morning Branch and evening. empaglifloz 2021-11 Yes [id number] 10mg Take 1 [facility] in 0-25 tablet by ity of (JARDIANCE) 00:00: mouth [place] 10 mg 00 every Medical morning. Branch pantoprazol 2021-11 Yes [id number] 40mg Take 1 [facility] e 40 mg EC 0-25 tablet by ity of tablet 00:00: mouth in [place] 00 the Medical morning Branch and 1 tablet in the evening. KCL 20 mEq 2021-11 Yes [id number] 20meq Take 1 [facility] tablet 0-25 tablet by ity of 00:00: mouth in [place] 00 the Medical morning. Branch metoprolol 2021-11 Yes [id number] 50mg Take 1 U nivers succinate 0-25 tablet by ity o f XL 50 mg 24 00:00: mouth in [place] hr tablet 00 the Medical morning. Branch levothyroxi 2021-11 Yes [id number] 150ug Take 1 [facility] ne 150 mcg 0-25 tablet by ity of tablet 00:00: mouth [place] 00 every Medical morning. Branch cetirizine 2021-11 Yes [id number] 10mg Take 1 U nivers (ALLERGY 0-25 tablet by ity of RELIEF, 00:00: mouth in [place] CETIRIZINE, 00 the Medical ) 10 mg morning. Branch tablet furosemide 2021-11 Yes [id number] 80mg Take 2 [facility] (LASIX) 40 0-25 02 tablets by ity of mg tablet 00:00: mouth [place] 00 every Medical morning Branch and evening. empaglifloz 2021-11 Yes [id number] 10mg Take 1 [facility] in 0-25 tablet by ity of (JARDIANCE) 00:00: mouth [place] 10 mg 00 every Medical morning. Branch pantoprazol 2021-11 Yes [id number] 40mg Take 1 [facility] e 40 mg EC 0-25 tablet by ity of tablet 00:00: mouth in [place] 00 the Medical morning Branch and 1 tablet in the evening. KCL 20 mEq 2021-11 Yes [id number] 20meq Take 1 [facility] tablet 0-25 tablet by ity of 00:00: mouth in [place] 00 the Medical morning. Branch metoprolol 2021-11 Yes [id number] 50mg Take 1 U nivers succinate 0-25 tablet by ity o f XL 50 mg 24 00:00: mouth in [place] hr tablet 00 the Medical morning. Branch levothyroxi 2021-11 Yes [id number] 150ug Take 1 [facility] ne 150 mcg 0-25 tablet by ity of tablet 00:00: mouth [place] 00 every Medical morning. Branch cetirizine 2021-11 Yes [id number] 10mg Take 1 U nivers (ALLERGY 0-25 tablet by ity of RELIEF, 00:00: mouth in [place] CETIRIZINE, 00 the [facility] ) 10 mg morning. Branch tablet furosemide 2021-11 Yes [id number] 80mg Take 2 [facility] (LASIX) 40 0-25 02 tablets by ity of mg tablet 00:00: mouth [place] 00 every Medical morning Branch and evening. empaglifloz 2021-11 Yes [id number] 10mg Take 1 [facility] in 0-25 tablet by ity of (JARDIANCE) 00:00: mouth [place] 10 mg 00 every Medical morning. Branch pantoprazol 2021-11 Yes [id number] 40mg Take 1 [facility] e 40 mg EC 0-25 tablet by ity of tablet 00:00: mouth in [place] 00 the Medical morning Branch and 1 tablet in the evening. KCL 20 mEq 2021-11 Yes [id number] 20meq Take 1 [facility] tablet 0-25 tablet by ity of 00:00: mouth in [place] 00 the Medical morning. Branch metoprolol 2021-11 Yes [id number] 50mg Take 1 U nivers succinate 0-25 tablet by ity o f XL 50 mg 24 00:00: mouth in [place] hr tablet 00 the Medical morning. Branch levothyroxi 2021-11 Yes [id number] 150ug Take 1 [facility] ne 150 mcg 0-25 tablet by ity of tablet 00:00: mouth [place] 00 every Medical morning. Branch cetirizine 2021-11 Yes [id number] 10mg Take 1 U nivers (ALLERGY 0-25 tablet by ity of RELIEF, 00:00: mouth in [place] CETIRIZINE, the Medical ) 10 mg morning. Branch tablet furosemide 2021-11 Yes [id number] 80mg Take 2 [facility] (LASIX) 40 0-25 02 tablets by ity of mg tablet 00:00: mouth [place] 00 every Medical morning Branch and evening. empaglifloz 2021-11 Yes [id number] 10mg Take 1 [facility] in 0-25 tablet by ity of (JARDIANCE) 00:00: mouth [place] 10 mg 00 every Medical morning. Branch pantoprazol 2021-11 Yes [id number] 40mg Take 1 [facility] e 40 mg EC 0-25 tablet by ity of tablet 00:00: mouth in [place] 00 the Medical morning Branch and 1 tablet in the evening. KCL 20 mEq 2021-11 Yes [id number] 20meq Take 1 [facility] tablet 0-25 tablet by ity of 00:00: mouth in [place] 00 the Medical morning. Branch metoprolol 2021-11 Yes [id number] 50mg Take 1 U nivers succinate 0-25 tablet by ity o f XL 50 mg 24 00:00: mouth in [place] hr tablet 00 the Medical morning. Branch levothyroxi 2021-11 Yes [id number] 150ug Take 1 [facility] ne 150 mcg 0-25 tablet by ity of tablet 00:00: mouth [place] 00 every Medical morning. Branch cetirizine 2021-11 Yes [id number] 10mg Take 1 U nivers (ALLERGY 0-25 tablet by ity of RELIEF, 00:00: mouth in [place] CETIRIZINE, 00 the Medical ) 10 mg morning. Branch tablet furosemide 2021-11 Yes [id number] 80mg Take 2 [facility] (LASIX) 40 0-25 02 tablets by ity of mg tablet 00:00: mouth [place] 00 every Medical morning Branch and evening. empaglifloz 2021-11 Yes [id number] 10mg Take 1 [facility] in 0-25 tablet by ity of (JARDIANCE) 00:00: mouth [place] 10 mg 00 every Medical morning. Branch pantoprazol 2021-11 Yes [id number] 40mg Take 1 [facility] e 40 mg EC 0-25 tablet by ity of tablet 00:00: mouth in [place] 00 the Medical morning Branch and 1 tablet in the evening. KCL 20 mEq 2021-11 Yes [id number] 20meq Take 1 [facility] tablet 0-25 tablet by ity of 00:00: mouth in [place] 00 the Medical morning. Branch metoprolol 2021-11 Yes [id number] 50mg Take 1 U nivers succinate 0-25 tablet by ity o f XL 50 mg 24 00:00: mouth in [place] hr tablet 00 the Medical morning. Branch levothyroxi 2021-11 Yes [id number] 150ug Take 1 [facility] ne 150 mcg 0-25 tablet by ity of tablet 00:00: mouth [place] 00 every Medical morning. Branch cetirizine 2021-11 Yes [id number] 10mg Take 1 [facility] (ALLERGY 0-25 tablet by [facility] of RELIEF, 00:00: mouth in [place] CETIRIZINE, 00 the Medical ) 10 mg morning. Branch tablet furosemide 2021-11 Yes [id number] 80mg Take 2 [facility] (LASIX) 40 0-25 02 tablets by ity of mg tablet 00:00: mouth [place] 00 every Medical morning Branch and evening. empaglifloz 2021-11 Yes [id number] 10mg Take 1 [facility] in 0-25 tablet by ity of (JARDIANCE) 00:00: mouth [place] 10 mg 00 every Medical morning. Branch pantoprazol 2021-11 Yes [id number] 40mg Take 1 [facility] e 40 mg EC 0-25 tablet by it[facility] of tablet 00:00: mouth in [place] 00 the Medical morning Branch and 1 tablet in the evening. KCL 20 mEq 2021-11 Yes [id number] 20meq Take 1 [facility] tablet 0-25 tablet by ity of 00:00: mouth in [place] 00 the Medical morning. Branch metoprolol 2021-11 Yes [id number] 50mg Take 1 [facility] succinate 0-25 tablet by ity o f XL 50 mg 24 00:00: mouth in [place] hr tablet 00 the Medical morning. Branch levothyroxi 2021-11 Yes [id number] 150ug Take 1 [facility] ne 150 mcg 0-25 tablet by ity of tablet 00:00: mouth [place] 00 every Medical morning. Branch cetirizine 2021-11 Yes [id number] 10mg Take 1 [facility] (ALLERGY 0-25 tablet by ity of RELIEF, 00:00: mouth in [place] CETIRIZINE, 00 the Medical ) 10 mg morning. Branch tablet furosemide 2021-11 Yes [id number] 80mg Take 2 [facility] (LASIX) 40 0-25 02 tablets by ity of mg tablet 00:00: mouth [place] 00 every Medical morning Branch and evening. empaglifloz 2021-11 Yes [id number] 10mg Take 1 [facility] in 0-25 tablet by ity of (JARDIANCE) 00:00: mouth [place] 10 mg 00 every Medical morning. Branch pantoprazol 2021-11 Yes [id number] 40mg Take 1 [facility] e 40 mg EC 0-25 tablet by ity of tablet 00:00: mouth in [place] 00 the Medical morning Branch and 1 tablet in the evening. KCL 20 mEq 2021-11 Yes [id number] 20meq Take 1 [facility] tablet 0-25 tablet by ity of 00:00: mouth in [place] 00 the Medical morning. Branch metoprolol 2021-11 Yes [id number] 50mg Take 1 [facility] succinate 0-25 tablet by ity o f XL 50 mg 24 00:00: mouth in [place] hr tablet 00 the Medical morning. Branch levothyroxi 2021-11 Yes [id number] 150ug Take 1 [facility] ne 150 mcg 0-25 tablet by it[facility] of tablet 00:00: mouth [place] 00 every Medical morning. Branch cetirizine 2021-11 Yes [id number] 10mg Take 1 [facility] (ALLERGY 0-25 tablet by ity of RELIEF, 00:00: mouth in [place] CETIRIZINE, 00 the Medical ) 10 mg morning. Branch tablet furosemide 2021-11 Yes [id number] 80mg Take 2 [facility] (LASIX) 40 0-25 02 tablets by it[facility] of mg tablet 00:00: mouth [place] 00 every Medical morning Branch and evening. empaglifloz 2021-11 Yes [id number] 10mg Take 1 [facility] in 0-25 tablet by it[facility] of (JARDIANCE) 00:00: mouth [place] 10 mg 00 every Medical morning. Branch pantoprazol 2021-11 Yes [id number] 40mg Take 1 [facility] e 40 mg EC 0-25 tablet by it[facility] of tablet 00:00: mouth in [place] 00 the Medical morning Branch and 1 tablet in the evening. KCL 20 mEq 2021-11 Yes [id number] 20meq Take 1 [facility] tablet 0-25 tablet by ity of 00:00: mouth in [place] 00 the Medical morning. Branch metoprolol 2021-11 Yes [id number] 50mg Take 1 [facility] succinate 0-25 tablet by ity o f XL 50 mg 24 00:00: mouth in [place] hr tablet 00 the Medical morning. Branch levothyroxi 2021-11 Yes [id number] 150ug Take 1 [facility] ne 150 mcg 0-25 tablet by it[facility] of tablet 00:00: mouth [place] 00 every Medical morning. Branch cetirizine 2021-11 Yes [id number] 10mg Take 1 [facility] (ALLERGY 0-25 tablet by ity of RELIEF, 00:00: mouth in [place] CETIRIZINE, 00 the Medical ) 10 mg morning. Branch tablet furosemide 2021-11 Yes [id number] 80mg Take 2 [facility] (LASIX) 40 0-25 02 tablets by ity of mg tablet 00:00: mouth [place] 00 every Medical morning Branch and evening. empaglifloz 2021-11 Yes [id number] 10mg Take 1 [facility] in 0-25 tablet by ity of (JARDIANCE) 00:00: mouth [place] 10 mg 00 every Medical morning. Branch pantoprazol 2021-11 Yes [id number] 40mg Take 1 [facility] e 40 mg EC 0-25 tablet by ity of tablet 00:00: mouth in [place] 00 the Medical morning Branch and 1 tablet in the evening. KCL 20 mEq 2021-11 Yes [id number] 20meq Take 1 [facility] tablet 0-25 tablet by ity of 00:00: mouth in [place] 00 the Medical morning. Branch metoprolol 2021-11 Yes [id number] 50mg Take 1 [facility] succinate 0-25 tablet by ity o f XL 50 mg 24 00:00: mouth in [place] hr tablet 00 the Medical morning. Branch levothyroxi 2021-11 Yes [id number] 150ug Take 1 [facility] ne 150 mcg 0-25 tablet by ity of tablet 00:00: mouth [place] 00 every Medical morning. Branch cetirizine 2021-11 Yes [id number] 10mg Take 1 [facility] (ALLERGY 0-25 tablet by ity of RELIEF, 00:00: mouth in [place] CETIRIZINE, the Medical ) 10 mg morning. Branch tablet furosemide 2021-11 Yes [id number] 80mg Take 2 [facility] (LASIX) 40 0-25 02 tablets by ity of mg tablet 00:00: mouth [place] 00 every Medical morning Branch and evening. empaglifloz 2021-11 Yes [id number] 10mg Take 1 [facility] in 0-25 tablet by ity of (JARDIANCE) 00:00: mouth [place] 10 mg 00 every Medical morning. Branch pantoprazol 2021-11 Yes [id number] 40mg Take 1 [facility] e 40 mg EC 0-25 tablet by ity of tablet 00:00: mouth in [place] 00 the Medical morning Branch and 1 tablet in the evening. KCL 20 mEq 2021-11 Yes [id number] 20meq Take 1 [facility] tablet 0-25 tablet by ity of 00:00: mouth in [place] the Medical morning. Branch metoprolol 2021-11 Yes [id number] 50mg Take 1 [facility] succinate 0-25 tablet by ity o f XL 50 mg 24 00:00: mouth in [place] hr tablet 00 the Medical morning. Branch levothyroxi 2021-11 Yes [id number] 150ug Take 1 [facility] ne 150 mcg 0-25 tablet by ity of tablet 00:00: mouth [place] 00 every Medical morning. Branch cetirizine 2021-11 Yes [id number] 10mg Take 1 [facility] (ALLERGY 0-25 tablet by ity of RELIEF, 00:00: mouth in [place] CETIRIZINE, the [facility] ) 10 mg morning. Branch tablet cetirizine 2021-11 Yes [id number] 10mg Take 1 [facility] (ALLERGY 0-25 tablet by ity of RELIEF, 00:00: mouth in [place] CETIRIZINE, the [facility] ) 10 mg morning. Branch tablet cetirizine 2021-11 Yes [id number] 10mg Take 1 [facility] (ALLERGY 0-25 tablet by ity of RELIEF, 00:00: mouth in [place] CETIRIZINE, the [facility] ) 10 mg morning. Branch tablet cetirizine 2021-11 Yes [id number] 10mg Take 1 [facility] (ALLERGY 0-25 tablet by ity of RELIEF, 00:00: mouth in [place] CETIRIZINE, the [facility] ) 10 mg morning. Branch tablet cetirizine 2021-11 Yes [id number] 10mg Take 1 [facility] (ALLERGY 0-25 tablet by ity of RELIEF, 00:00: mouth in [place] CETIRIZINE, the Medical ) 10 mg morning. Branch tablet cetirizine 2021-11 Yes [id number] 10mg Take 1 [facility] (ALLERGY 0-25 tablet by ity of RELIEF, 00:00: mouth in [place] CETIRIZINE, the [facility] ) 10 mg morning. Branch tablet cetirizine 2021-11 Yes [id number] 10mg Take 1 [facility] (ALLERGY 0-25 tablet by ity of RELIEF, 00:00: mouth in [place] CETIRIZINE, the [facility] ) 10 mg morning. Branch tablet cetirizine 2021-11 Yes [id number] 10mg Take 1 [facility] (ALLERGY 0-25 tablet by ity of RELIEF, 00:00: mouth in [place] CETIRIZINE, the [facility] ) 10 mg morning. Branch tablet cetirizine 2021-11 Yes [id number] 10mg Take 1 [facility] (ALLERGY 0-25 tablet by ity of RELIEF, 00:00: mouth in [place] CETIRIZINE, the [facility] ) 10 mg morning. Branch tablet cetirizine 2021-11 Yes [id number] 10mg Take 1 [facility] (ALLERGY 0-25 tablet by ity of RELIEF, 00:00: mouth in [place] CETIRIZINE, the Medical ) 10 mg morning. Branch tablet cetirizine 2021-11 Yes [id number] 10mg Take 1 [facility] (ALLERGY 0-25 tablet by ity of RELIEF, 00:00: mouth in [place] CETIRIZINE, the [facility] ) 10 mg morning. Branch tablet cetirizine 2021-11 Yes [id number] 10mg Take 1 [facility] (ALLERGY 0-25 tablet by ity of RELIEF, 00:00: mouth in [place] CETIRIZINE, 00 the Medical ) 10 mg morning. Branch tablet cetirizine 2021-11 Yes [id number] 10mg Take 1 [facility] (ALLERGY 0-25 tablet by ity of RELIEF, 00:00: mouth in [place] CETIRIZINE, 00 the Medical ) 10 mg morning. Branch tablet cetirizine 2021-11 Yes [id number] 10mg Take 1 [facility] (ALLERGY 0-25 tablet by ity of RELIEF, 00:00: mouth in [place] CETIRIZINE, the Medical ) 10 mg morning. Branch tablet cetirizine 2021-11 Yes [id number] 10mg Take 1 [facility] (ALLERGY 0-25 tablet by ity of RELIEF, 00:00: mouth in [place] CETIRIZINE, the [facility] ) 10 mg morning. Branch tablet cetirizine 2021-11 Yes [id number] 10mg Take 1 [facility] (ALLERGY 0-25 tablet by ity of RELIEF, 00:00: mouth in [place] CETIRIZINE, the [facility] ) 10 mg morning. Branch tablet cetirizine 2021-11 Yes [id number] 10mg Take 1 [facility] (ALLERGY 0-25 tablet by ity of RELIEF, 00:00: mouth in [place] CETIRIZINE, the [facility] ) 10 mg morning. Branch tablet cetirizine 2021-11 Yes [id number] 10mg Take 1 [facility] (ALLERGY 0-25 tablet by ity of RELIEF, 00:00: mouth in [place] CETIRIZINE, the [facility] ) 10 mg morning. Branch tablet cetirizine 2021-11 Yes [id number] 10mg Take 1 [facility] (ALLERGY 0-25 tablet by ity of RELIEF, 00:00: mouth in [place] CETIRIZINE, the Medical ) 10 mg morning. Branch tablet cetirizine 2021-11 Yes [id number] 10mg Take 1 [facility] (ALLERGY 0-25 tablet by ity of RELIEF, 00:00: mouth in [place] CETIRIZINE, the Medical ) 10 mg morning. Branch tablet cetirizine 2021-11 Yes [id number] 10mg Take 1 [facility] (ALLERGY 0-25 tablet by ity of RELIEF, 00:00: mouth in [place] CETIRIZINE, the Medical ) 10 mg morning. Branch tablet cetirizine 2021-11 Yes [id number] 10mg Take 1 [facility] (ALLERGY 0-25 tablet by ity of RELIEF, 00:00: mouth in [place] CETIRIZINE, the Medical ) 10 mg morning. Branch tablet cetirizine 2021-11 Yes [id number] 10mg Take 1 [facility] (ALLERGY 0-25 tablet by ity of RELIEF, 00:00: mouth in [place] CETIRIZINE, the [facility] ) 10 mg morning. Branch tablet cetirizine 2021-11 Yes [id number] 10mg Take 1 [facility] (ALLERGY 0-25 tablet by ity of RELIEF, 00:00: mouth in [place] CETIRIZINE, the [facility] ) 10 mg morning. Branch tablet cetirizine 2021-11 Yes [id number] 10mg Take 1 [facility] (ALLERGY 0-25 tablet by ity of RELIEF, 00:00: mouth in [place] CETIRIZINE, the [facility] ) 10 mg morning. Branch tablet cetirizine 2021-11 Yes [id number] 10mg Take 1 [facility] (ALLERGY 0-25 tablet by ity of RELIEF, 00:00: mouth in [place] CETIRIZINE, the [facility] ) 10 mg morning. Branch tablet cetirizine 2021-11 Yes [id number] 10mg Take 1 [facility] (ALLERGY 0-25 tablet by ity of RELIEF, 00:00: mouth in [place] CETIRIZINE, the [facility] ) 10 mg morning. Branch tablet cetirizine 2021-11 Yes [id number] 10mg Take 1 [facility] (ALLERGY 0-25 tablet by ity of RELIEF, 00:00: mouth in [place] CETIRIZINE, the [facility] ) 10 mg morning. Branch tablet cetirizine 2021-11 Yes [id number] 10mg Take 1 [facility] (ALLERGY 0-25 tablet by ity of RELIEF, 00:00: mouth in [place] CETIRIZINE, the Medical ) 10 mg morning. Branch tablet cetirizine 2021-11 Yes [id number] 10mg Take 1 [facility] (ALLERGY 0-25 tablet by ity of RELIEF, 00:00: mouth in [place] CETIRIZINE, the [facility] ) 10 mg morning. Branch tablet cetirizine 2021-11 Yes [id number] 10mg Take 1 [facility] (ALLERGY 0-25 tablet by ity of RELIEF, 00:00: mouth in [place] CETIRIZINE, the [facility] ) 10 mg morning. Branch tablet cetirizine 2021-11 Yes [id number] 10mg Take 1 [facility] (ALLERGY 0-25 tablet by ity of RELIEF, 00:00: mouth in [place] CETIRIZINE, the [facility] ) 10 mg morning. Branch tablet cetirizine 2021-11 Yes [id number] 10mg Take 1 [facility] (ALLERGY 0-25 tablet by ity of RELIEF, 00:00: mouth in [place] CETIRIZINE, the [facility] ) 10 mg morning. Branch tablet cetirizine 2021-11 Yes [id number] 10mg Take 1 [facility] (ALLERGY 0-25 tablet by ity of RELIEF, 00:00: mouth in [place] CETIRIZINE, the [facility] ) 10 mg morning. Branch tablet cetirizine 2021-11 Yes [id number] 10mg Take 1 [facility] (ALLERGY 0-25 tablet by ity of RELIEF, 00:00: mouth in [place] CETIRIZINE, the [facility] ) 10 mg morning. Branch tablet cetirizine 2021-11 Yes [id number] 10mg Take 1 [facility] (ALLERGY 0-25 tablet by ity of RELIEF, 00:00: mouth in [place] CETIRIZINE, the [facility] ) 10 mg morning. Branch tablet cetirizine 2021-11 Yes [id number] 10mg Take 1 [facility] (ALLERGY 0-25 tablet by ity of RELIEF, 00:00: mouth in [place] CETIRIZINE, the [facility] ) 10 mg morning. Branch tablet cetirizine 2021-11 Yes [id number] 10mg Take 1 [facility] (ALLERGY 0-25 tablet by ity of RELIEF, 00:00: mouth in [place] CETIRIZINE, the [facility] ) 10 mg morning. Branch tablet cetirizine 2021-11 Yes [id number] 10mg Take 1 [facility] (ALLERGY 0-25 tablet by ity of RELIEF, 00:00: mouth in [place] CETIRIZINE, the [facility] ) 10 mg morning. Branch tablet cetirizine 2021-11 Yes [id number] 10mg Take 1 [facility] (ALLERGY 0-25 tablet by ity of RELIEF, 00:00: mouth in [place] CETIRIZINE, 00 the Medical ) 10 mg morning. Branch tablet cetirizine 2021-11- No [id number] 10mg Take 1 [facility] (ALLERGY 0-25 12-28 tablet by ity o f RELIEF, 00:00: 00:00 mouth in [place] CETIRIZINE, 00 :00 the Medical ) 10 mg morning. Branch tablet furosemide 2021-11- No [id number] 80mg Take 2 [facility] (LASIX) 40 0-25 09-29 02 tablets by it y of mg tablet 00:00: 00:00 mouth [place] 00 :00 every Medical morning Branch and evening. empaglifloz 2021-11- No [id number] 10mg Take 1 [facility] in 0-17 10- tablet by ity of (JARDIANCE) 00:00: 00:00 [place] 10 mg 00 :00 every Medical morning. [place] pantoprazol 2021-11- No [id number] 40mg Take 1 [facility] e 40 mg EC 0-09-29 tablet by ity of tablet 00:00: 00:00 mouth in [place] 00 :00 the Medical morning Branch and 1 tablet in the evening. KCL 20 mEq 2021-11- No [id number] 20meq Take 1 [facility] tablet 0-09-29 tablet by ity of 00:00: 00:00 mouth in [place] 00 :00 the Medical morning. [place] metoprolol 2021-11- No [id number] 50mg Take 1 [facility] succinate 0-25 09-29 tablet by ity of XL 50 mg 24 00:00: 00:00 mouth in [place] hr tablet 00 :00 the Medical morning. Branch levothyroxi 2021-11- No [id number] 150ug Take 1 [facility] ne 150 mcg 0-25 09-29 tablet by ity of tablet 00:00: 00:00 mouth [place] 00 :00 every Medical morning. Branch furosemide 2021-11- No [id number] 80mg Take 2 [facility] (LASIX) 40 0-25 - 02 tablets by it y of mg tablet 00:00: 00:00 mouth [place] 00 :00 every Medical morning Branch and evening. empaglifloz 2021-11- No [id number] 10mg Take 1 [facility] in 0-25 -07 tablet by ity of (JARDIANCE) 00:00: 00:00 [place] 10 mg 00 :00 every Medical morning. Branch pantoprazol 2021-11- No [id number] 40mg Take 1 [facility] e 40 mg EC 0-17 10- tablet by ity of tablet 00:00: 00:00 mouth in [place] 00 :00 the Medical morning Branch and 1 tablet in the evening. KCL 20 mEq 2021-11- No [id number] 20meq Take 1 [facility] tablet 0-25 - tablet by ity of 00:00: 00:00 mouth in [place] 00 :00 the Medical morning. Branch metoprolol 2021-11- No [id number] 50mg Take 1 [facility] succinate 0-17 10- tablet by ity of XL 50 mg 24 00:00: 00:00 mouth in [place] hr tablet 00 :00 the Medical morning. Branch levothyroxi 2021-11- No [id number] 150ug Take 1 [facility] ne 150 mcg 0-17 10- tablet by ity of tablet 00:00: 00:00 mouth [place] 00 :00 every Medical morning. Branch tiotropium 2021-11 Yes [id number] 18ug Inhale 1 [facility] 18 mcg 0-24 capsule in ity of inhalation 00:00: the [place] 00 morning. Medical Branch tiotropium 2021-11 Yes [id number] 18ug Inhale 1 [facility] 18 mcg 0-24 capsule in ity of inhalation 00:00: the [place] 00 morning. Medical Branch tiotropium 2021-11 Yes [id number] 18ug Inhale 1 [facility] 18 mcg 0-24 capsule in ity of inhalation 00:00: the [place] 00 morning. Medical Branch tiotropium 2021-11 Yes [id number] 18ug Inhale 1 [facility] 18 mcg 0-24 capsule in ity of inhalation 00:00: the [place] 00 morning. Medical Branch tiotropium 2021-11 Yes [id number] 18ug Inhale 1 [facility] 18 mcg 0-24 capsule in ity of inhalation 00:00: the [place] 00 morning. Medical Branch tiotropium 2021-11 Yes [id number] 18ug Inhale 1 [facility] 18 mcg 0-24 capsule in ity of inhalation 00:00: the 00 morning. Medical Branch tiotropium 2021- Yes [id number] 18ug Inhale 1 [facility] 18 mcg 0-24 capsule in ity of inhalation 00:00: the [place] 00 morning. Medical Branch tiotropium 2021-1 Yes [id number] 18ug Inhale 1 [facility] 18 mcg 0-24 capsule in ity of inhalation 00:00: the 00 morning. Medical Branch tiotropium 2021-1 Yes [id number] 18ug Inhale 1 [facility] 18 mcg 0-24 capsule in ity of inhalation 00:00: the [place] 00 morning. Medical Branch tiotropium 2021-1 Yes [id number] 18ug Inhale 1 [facility] 18 mcg 0-24 capsule in ity of inhalation 00:00: the [place] 00 morning. Medical Branch tiotropium 2021-1 Yes [id number] 18ug Inhale 1 [facility] 18 mcg 0-24 capsule in ity of inhalation 00:00: the [place] 00 morning. Medical Branch tiotropium 2021-1 Yes [id number] 18ug Inhale 1 [facility] 18 mcg 0-24 capsule in ity of inhalation 00:00: the [place] 00 morning. Medical Branch tiotropium 2021-1 Yes [id number] 18ug Inhale 1 [facility] 18 mcg 0-24 capsule in ity of inhalation 00:00: the [place] 00 morning. Medical Branch tiotropium 2021-1 Yes [id number] 18ug Inhale 1 [facility] 18 mcg 0-24 capsule ity of inhalation 00:00: in the [place] 00 morning. Medical Branch tiotropium 2021-1 Yes [id number] 18ug Inhale 1 [facility] 18 mcg 0-24 capsule in ity of inhalation 00:00: the [place] 00 morning. Medical Branch tiotropium 2021-1 Yes [id number] 18ug Inhale 1 [facility] 18 mcg 0-24 capsule in ity of inhalation 00:00: the [place] 00 morning. Medical Branch tiotropium 2021-1 Yes [id number] 18ug Inhale 1 [facility] 18 mcg 0-24 capsule in ity of inhalation 00:00: the [place] 00 morning. Medical Branch tiotropium 2-1 Yes [id number] 18ug Inhale 1 [facility] 18 mcg 0-24 capsule in ity of inhalation 00:00: the [place] 00 morning. Medical Branch tiotropium 2021- Yes [id number] 18ug Inhale 1 [facility] 18 mcg 0-24 capsule in ity of inhalation 00:00: the 00 morning. Medical Branch tiotropium 2021-1 Yes [id number] 18ug Inhale 1 [facility] 18 mcg 0-24 capsule in ity of inhalation 00:00: the [place] 00 morning. Medical Branch tiotropium 2-1 Yes [id number] 18ug Inhale 1 [facility] 18 mcg 0-24 capsule in ity of inhalation 00:00: the 00 morning. Medical Branch tiotropium 2021- Yes [id number] 18ug Inhale 1 [facility] 18 mcg 0-24 capsule in ity of inhalation 00:00: the [place] 00 morning. Medical Branch tiotropium 2021- Yes [id number] 18ug Inhale 1 [facility] 18 mcg 0-24 capsule in ity of inhalation 00:00: the [place] 00 morning. Medical Branch tiotropium 2021- Yes [id number] 18ug Inhale 1 [facility] 18 mcg 0-24 capsule in ity of inhalation 00:00: the [place] 00 morning. Medical Branch tiotropium 2021- Yes [id number] 18ug Inhale 1 [facility] 18 mcg 0-24 capsule in ity of inhalation 00:00: the [place] 00 morning. Medical Branch tiotropium 2021-1 Yes [id number] 18ug Inhale 1 [facility] 18 mcg 0-24 capsule in ity of inhalation 00:00: the [place] 00 morning. Medical Branch tiotropium 2-1 Yes [id number] 18ug Inhale 1 [facility] 18 mcg 0-24 capsule in ity of inhalation 00:00: the [place] 00 morning. Medical Branch tiotropium 2-1 Yes [id number] 18ug Inhale 1 [facility] 18 mcg 0-24 capsule in ity of inhalation 00:00: the [place] 00 morning. Medical Branch tiotropium 2-1 Yes [id number] 18ug Inhale 1 [facility] 18 mcg 0-24 capsule in ity of inhalation 00:00: the [place] 00 morning. Medical Branch tiotropium 2-1 Yes [id number] 18ug Inhale 1 [facility] 18 mcg 0-24 capsule in ity of inhalation 00:00: the [place] 00 morning. Medical Branch tiotropium 2-1 Yes [id number] 18ug Inhale 1 [facility] 18 mcg 0-24 capsule in ity of inhalation 00:00: the 00 morning. Medical Branch tiotropium 2021- Yes [id number] 18ug Inhale 1 [facility] 18 mcg 0-24 capsule in ity of inhalation 00:00: the [place] 00 morning. Medical Branch tiotropium 2021-1 Yes [id number] 18ug Inhale 1 [facility] 18 mcg 0-24 capsule in ity of inhalation 00:00: the 00 morning. Medical Branch tiotropium 2021-1 Yes [id number] 18ug Inhale 1 [facility] 18 mcg 0-24 capsule in ity of inhalation 00:00: the [place] 00 morning. Medical Branch tiotropium 2021-1 Yes [id number] 18ug Inhale 1 [facility] 18 mcg 0-24 capsule in ity of inhalation 00:00: the [place] 00 morning. Medical Branch tiotropium 2021-1 Yes [id number] 18ug Inhale 1 [facility] 18 mcg 0-24 capsule in ity of inhalation 00:00: the [place] 00 morning. Medical Branch tiotropium 2021-1 Yes [id number] 18ug Inhale 1 [facility] 18 mcg 0-24 capsule in ity of inhalation 00:00: the [place] 00 morning. Medical Branch tiotropium 2021-1 Yes [id number] 18ug Inhale 1 [facility] 18 mcg 0-24 capsule in ity of inhalation 00:00: the [place] 00 morning. Medical Branch tiotropium 2021-1 Yes [id number] 18ug Inhale 1 [facility] 18 mcg 0-24 capsule in ity of inhalation 00:00: the [place] 00 morning. Medical Branch tiotropium 2021-1 Yes [id number] 18ug Inhale 1 [facility] 18 mcg 0-24 capsule in ity of inhalation 00:00: the [place] 00 morning. Medical Branch tiotropium 2021-1 Yes [id number] 18ug Inhale 1 [facility] 18 mcg 0-24 capsule in ity of inhalation 00:00: the [place] 00 morning. Medical Branch tiotropium 2-1 Yes [id number] 18ug Inhale 1 [facility] 18 mcg 0-24 capsule in ity of inhalation 00:00: the [place] 00 morning. Medical Branch tiotropium 2-1 Yes [id number] 18ug Inhale 1 [facility] 18 mcg 0-24 capsule in ity of inhalation 00:00: the [place] 00 morning. Medical Branch tiotropium 2021- Yes [id number] 18ug Inhale 1 [facility] 18 mcg 0-24 capsule in ity of inhalation 00:00: the 00 morning. Medical Branch tiotropium 2021-1 Yes [id number] 18ug Inhale 1 [facility] 18 mcg 0-24 capsule in ity of inhalation 00:00: the [place] 00 morning. Medical Branch tiotropium 2-1 Yes [id number] 18ug Inhale 1 [facility] 18 mcg 0-24 capsule in ity of inhalation 00:00: the 00 morning. Medical Branch tiotropium 2021- Yes [id number] 18ug Inhale 1 [facility] 18 mcg 0-24 capsule in ity of inhalation 00:00: the [place] 00 morning. Medical Branch tiotropium 2021- Yes [id number] 18ug Inhale 1 [facility] 18 mcg 0-24 capsule in ity of inhalation 00:00: the [place] 00 morning. Medical Branch tiotropium 2021- Yes [id number] 18ug Inhale 1 [facility] 18 mcg 0-24 capsule in ity of inhalation 00:00: the [place] 00 morning. Medical Branch tiotropium 2021- Yes [id number] 18ug Inhale 1 [facility] 18 mcg 0-24 capsule in ity of inhalation 00:00: the [place] 00 morning. Medical Branch tiotropium 2021-1 Yes [id number] 18ug Inhale 1 [facility] 18 mcg 0-24 capsule in ity of inhalation 00:00: the [place] 00 morning. Medical Branch tiotropium 2-1 Yes [id number] 18ug Inhale 1 [facility] 18 mcg 0-24 capsule in ity of inhalation 00:00: the [place] 00 morning. Medical Branch tiotropium 2-1 Yes [id number] 18ug Inhale 1 [facility] 18 mcg 0-24 capsule in ity of inhalation 00:00: the [place] 00 morning. Medical Branch tiotropium 2-1 Yes [id number] 18ug Inhale 1 [facility] 18 mcg 0-24 capsule in ity of inhalation 00:00: the [place] 00 morning. Medical Branch tiotropium 2-1 Yes [id number] 18ug Inhale 1 [facility] 18 mcg 0-24 capsule in ity of inhalation 00:00: the [place] 00 morning. Medical Branch tiotropium 2-1 Yes [id number] 18ug Inhale 1 [facility] 18 mcg 0-24 capsule in ity of inhalation 00:00: the 00 morning. Medical Branch tiotropium 2021- Yes [id number] 18ug Inhale 1 [facility] 18 mcg 0-24 capsule in ity of inhalation 00:00: the [place] 00 morning. Medical Branch tiotropium 2021-1 Yes [id number] 18ug Inhale 1 [facility] 18 mcg 0-24 capsule in ity of inhalation 00:00: the 00 morning. Medical Branch tiotropium 2021-1 Yes [id number] 18ug Inhale 1 Univers 18 mcg 0-24 capsule in ity of inhalation 00:00: the [place] 00 morning. Medical Branch tiotropium 2021-1 Yes [id number] 18ug Inhale 1 [facility] 18 mcg 0-24 capsule in ity of inhalation 00:00: the [place] 00 morning. Medical Branch tiotropium 2021-1 Yes [id number] 18ug Inhale 1 [facility] 18 mcg 0-24 capsule in ity of inhalation 00:00: the [place] 00 morning. Medical Branch tiotropium 2021-1 Yes [id number] 18ug Inhale 1 [facility] 18 mcg 0-24 capsule in ity of inhalation 00:00: the [place] 00 morning. Medical Branch tiotropium 2021-1 Yes [id number] 18ug Inhale 1 [facility] 18 mcg 0-24 capsule in ity of inhalation 00:00: the [place] 00 morning. Medical Branch tiotropium 2021-1 Yes [id number] 18ug Inhale 1 [facility] 18 mcg 0-24 capsule in ity of inhalation 00:00: the [place] 00 morning. Medical Branch tiotropium 2021-1 Yes [id number] 18ug Inhale 1 [facility] 18 mcg 0-24 capsule in ity of inhalation 00:00: the [place] 00 morning. Medical Branch tiotropium 2021-1 Yes [id number] 18ug Inhale 1 [facility] 18 mcg 0-24 capsule in ity of inhalation 00:00: the [place] 00 morning. Medical Branch tiotropium 2-1 Yes [id number] 18ug Inhale 1 [facility] 18 mcg 0-24 capsule in ity of inhalation 00:00: the [place] 00 morning. Medical Branch tiotropium 2-1 Yes [id number] 18ug Inhale 1 [facility] 18 mcg 0-24 capsule in ity of inhalation 00:00: the [place] 00 morning. Medical Branch tiotropium 2021- Yes [id number] 18ug Inhale 1 [facility] 18 mcg 0-24 capsule in ity of inhalation 00:00: the 00 morning. Medical Branch tiotropium 2021-1 Yes [id number] 18ug Inhale 1 [facility] 18 mcg 0-24 capsule in ity of inhalation 00:00: the [place] 00 morning. Medical Branch tiotropium 2-1 Yes [id number] 18ug Inhale 1 [facility] 18 mcg 0-24 capsule in ity of inhalation 00:00: the 00 morning. [facility] Branch tiotropium 2021- Yes [id number] 18ug Inhale 1 [facility] 18 mcg 0-24 capsule in ity of inhalation 00:00: the [place] 00 morning. [facility] Branch tiotropium 2021- Yes [id number] 18ug Inhale 1 [facility] 18 mcg 0-24 capsule in ity of inhalation 00:00: the [place] 00 morning. Medical Branch tiotropium 2021- Yes [id number] 18ug Inhale 1 [facility] 18 mcg 0-24 capsule in ity of inhalation 00:00: the [place] 00 morning. [facility] Branch tiotropium 2021- Yes [id number] 18ug Inhale 1 [facility] 18 mcg 0-24 capsule in ity of inhalation 00:00: the [place] 00 morning. [facility] Branch tiotropium 2021-1 Yes [id number] 18ug Inhale 1 [facility] 18 mcg 0-24 capsule in ity of inhalation 00:00: the [place] 00 morning. Medical Branch tiotropium 2-1 Yes [id number] 18ug Inhale 1 [facility] 18 mcg 0-24 capsule in ity of inhalation 00:00: the [place] 00 morning. Medical Branch tiotropium 2-1 Yes [id number] 18ug Inhale 1 [facility] 18 mcg 0-24 capsule in ity of inhalation 00:00: the [place] 00 morning. Medical Branch tiotropium 2-1 Yes [id number] 18ug Inhale 1 [facility] 18 mcg 0-24 capsule in ity of inhalation 00:00: the [place] 00 morning. Medical Branch tiotropium 2-1 Yes [id number] 18ug Inhale 1 [facility] 18 mcg 0-24 capsule in ity of inhalation 00:00: the [place] 00 morning. Medical Branch tiotropium 2-1 Yes [id number] 18ug Inhale 1 [facility] 18 mcg 0-24 capsule in ity of inhalation 00:00: the [place] 00 morning. [facility] Branch tiotropium 2021- Yes [id number] 18ug Inhale 1 [facility] 18 mcg 0-24 capsule in ity of inhalation 00:00: the [place] 00 morning. Medical Branch tiotropium 2021-1 Yes [id number] 18ug Inhale 1 [facility] 18 mcg 0-24 capsule in ity of inhalation 00:00: the [place] 00 morning. Medical Branch tiotropium 2021- Yes [id number] 18ug Inhale 1 [facility] 18 mcg 0-24 capsule in ity of inhalation 00:00: the [place] 00 morning. Medical Branch tiotropium 2021- Yes [id number] 18ug Inhale 1 [facility] 18 mcg 0-24 capsule in ity of inhalation 00:00: the [place] 00 morning. [facility] Branch tiotropium 2021-1 Yes [id number] 18ug Inhale 1 [facility] 18 mcg 0-24 capsule in ity of inhalation 00:00: the [place] 00 morning. [facility] Branch tiotropium 2021- Yes [id number] 18ug Inhale 1 [facility] 18 mcg 0-24 capsule in ity of inhalation 00:00: the [place] 00 morning. Medical Branch tiotropium 2021-1 Yes [id number] 18ug Inhale 1 [facility] 18 mcg 0-24 capsule in ity of inhalation 00:00: the [place] 00 morning. Medical Branch tiotropium 2021-1 Yes [id number] 18ug Inhale 1 [facility] 18 mcg 0-24 capsule in ity of inhalation 00:00: the [place] 00 morning. Medical Branch predniSONE 2021- Yes [id number] 50mg Take 1 [facility] 50 mg 0-21 tablet by ity of tablet 00:00: mouth in [place] the morning. Branch predniSONE 2021- Yes [id number] 50mg Take 1 [facility] 50 mg 0-21 tablet by ity of tablet 00:00: mouth in [place] the morning. Branch predniSONE 2021-1 Yes [id number] 50mg Take 1 [facility] 50 mg 0-21 tablet by ity of tablet 00:00: mouth in [place] the morning. Branch predniSONE 2021-1 Yes [id number] 50mg Take 1 [facility] 50 mg 0-21 tablet by ity of tablet 00:00: mouth in [place] 00 the Medical morning. Branch predniSONE 2021- Yes [id number] 50mg Take 1 [facility] 50 mg 0-21 tablet by ity of tablet 00:00: mouth in [place] 00 the Medical morning. Branch predniSONE 2021- Yes [id number] 50mg Take 1 [facility] 50 mg 0-21 tablet by ity of tablet 00:00: mouth in [place] 00 the Medical morning. Branch predniSONE 2021- Yes [id number] 50mg Take 1 [facility] 50 mg 0-21 tablet by ity of tablet 00:00: mouth in [place] 00 the Medical morning. Branch predniSONE 2021- Yes [id number] 50mg Take 1 [facility] 50 mg 0-21 tablet by ity of tablet 00:00: mouth in [place] 00 the Medical morning. Branch predniSONE 2021- Yes [id number] 50mg Take 1 [facility] 50 mg 0-21 tablet by ity of tablet 00:00: mouth in [place] 00 the Medical morning. Branch predniSONE 2021- Yes [id number] 50mg Take 1 [facility] 50 mg 0-21 tablet by ity of tablet 00:00: mouth in [place] the Medical morning. Branch predniSONE 2021- Yes [id number] 50mg Take 1 [facility] 50 mg 0-21 tablet by ity of tablet 00:00: mouth in [place] 00 the Medical morning. Branch predniSONE 2021- Yes [id number] 50mg Take 1 [facility] 50 mg 0-21 tablet by ity of tablet 00:00: mouth in [place] 00 the Medical morning. Branch predniSONE 2021- Yes [id number] 50mg Take 1 [facility] 50 mg 0-21 tablet by ity of tablet 00:00: mouth in [place] 00 the Medical morning. Branch predniSONE 2021- Yes [id number] 50mg Take 1 [facility] 50 mg 0-21 tablet by ity of tablet 00:00: mouth in [place] 00 the Medical morning. Branch predniSONE 2021- Yes [id number] 50mg Take 1 [facility] 50 mg 0-21 tablet by ity of tablet 00:00: mouth in [place] 00 the Medical morning. Branch predniSONE 2- Yes [id number] 50mg Take 1 [facility] 50 mg 0-21 tablet by ity of tablet 00:00: mouth in [place] 00 the Medical morning. Branch predniSONE 2021- Yes [id number] 50mg Take 1 [facility] 50 mg 0-21 tablet by ity of tablet 00:00: mouth in [place] 00 the Medical morning. Branch predniSONE 2021-11 Yes [id number] 50mg Take 1 [facility] 50 mg 0-21 tablet by ity of tablet 00:00: mouth in [place] 00 the Medical morning. Branch predniSONE 2021-11 Yes [id number] 50mg Take 1 [facility] 50 mg 0-21 tablet by ity of tablet 00:00: mouth in [place] 00 the Medical morning. Branch predniSONE 2021-11 Yes [id number] 50mg Take 1 [facility] 50 mg 0-21 tablet by ity of tablet 00:00: mouth in [place] 00 the Medical morning. Branch predniSONE 2021-11 Yes [id number] 50mg Take 1 [facility] 50 mg 0-21 tablet by ity of tablet 00:00: mouth in [place] 00 the Medical morning. Branch predniSONE 2021-11 [id number] 50mg Take 1 [facility] 50 mg 0-21 11-01 tablet by ity of tablet 00:00: 00:00 mouth in [place] 00 :00 the Medical morning. Branch clotrimazol 2021-11 Yes [id number] Apply to [facility] e (JOCK 0-17 area(s) 2 ity of ITCH, 00:00: (two) [place] CLOTRIMAZOL 00 times Medical E,) 1 % daily. For Branch topical one week cream clotrimazol 2021-11 Yes [id number] Apply to [facility] e (JOCK 0-17 area(s) 2 ity of ITCH, 00:00: (two) [place] CLOTRIMAZOL 00 times Medical E,) 1 % daily. For Branch topical one week cream clotrimazol 2021-11 Yes [id number] Apply to [facility] e (JOCK 0-17 area(s) 2 ity of ITCH, 00:00: (two) [place] CLOTRIMAZOL 00 times Medical E,) 1 % daily. For Branch topical one week cream clotrimazol 2021-11 Yes [id number] Apply to [facility] e (JOCK 0-17 area(s) 2 ity of ITCH, 00:00: (two) [place] CLOTRIMAZOL 00 times Medical E,) 1 % daily. For Branch topical one week cream clotrimazol 2021-11 Yes [id number] Apply to [facility] e (JOCK 0-17 area(s) 2 ity of ITCH, 00:00: (two) [place] CLOTRIMAZOL 00 times Medical E,) 1 % daily. For Branch topical one week cream clotrimazol 2021-11 Yes [id number] Apply to [facility] e (JOCK 0-17 area(s) 2 ity of ITCH, 00:00: (two) [place] CLOTRIMAZOL 00 times Medical E,) 1 % daily. For Branch topical one week cream clotrimazol 2021-11 Yes [id number] Apply to [facility] e (JOCK 0-17 area(s) 2 ity of ITCH, 00:00: (two) [place] CLOTRIMAZOL 00 times Medical E,) 1 % daily. For Branch topical one week cream clotrimazol 2021-11 Yes [id number] Apply to [facility] e (JOCK 0-17 area(s) 2 ity of ITCH, 00:00: (two) [place] CLOTRIMAZOL 00 times Medical E,) 1 % daily. For Branch topical one week cream clotrimazol 2021-11 Yes [id number] Apply to [facility] e (JOCK 0-17 area(s) 2 ity of ITCH, 00:00: (two) [place] CLOTRIMAZOL 00 times Medical E,) 1 % daily. For Branch topical one week cream clotrimazol 2021-11 Yes [id number] Apply to [facility] e (JOCK 0-17 area(s) 2 ity of ITCH, 00:00: (two) [place] CLOTRIMAZOL 00 times Medical E,) 1 % daily. For Branch topical one week cream clotrimazol 2021-11 Yes [id number] Apply to [facility] e (JOCK 0-17 area(s) 2 ity of ITCH, 00:00: (two) [place] CLOTRIMAZOL 00 times Medical E,) 1 % daily. For Branch topical one week cream clotrimazol 2021-11 Yes [id number] Apply to [facility] e (JOCK 0-17 area(s) 2 ity of ITCH, 00:00: (two) [place] CLOTRIMAZOL 00 times Medical E,) 1 % daily. For Branch topical one week cream clotrimazol 2021-11 Yes [id number] Apply to [facility] e (JOCK 0-17 area(s) 2 ity of ITCH, 00:00: (two) [place] CLOTRIMAZOL 00 times Medical E,) 1 % daily. For Branch topical one week cream clotrimazol 2021-11 Yes [id number] Apply to [facility] e (JOCK 0-17 area(s) 2 ity of ITCH, 00:00: (two) [place] CLOTRIMAZOL 00 times Medical E,) 1 % daily. For Branch topical one week cream clotrimazol 2021-11 Yes [id number] Apply to [facility] e (JOCK 0-17 area(s) 2 ity of ITCH, 00:00: (two) [place] CLOTRIMAZOL 00 times Medical E,) 1 % daily. For Branch topical one week cream clotrimazol 2021-11 Yes [id number] Apply to [facility] e (JOCK 0-17 area(s) 2 ity of ITCH, 00:00: (two) [place] CLOTRIMAZOL 00 times Medical E,) 1 % daily. For Branch topical one week cream clotrimazol 2021-11 Yes [id number] Apply to [facility] e (JOCK 0-17 area(s) 2 ity of ITCH, 00:00: (two) [place] CLOTRIMAZOL 00 times Medical E,) 1 % daily. For Branch topical one week cream clotrimazol 2021-11 Yes [id number] Apply to [facility] e (JOCK 0-17 area(s) 2 ity of ITCH, 00:00: (two) [place] CLOTRIMAZOL 00 times Medical E,) 1 % daily. For Branch topical one week cream clotrimazol 2021-11 Yes [id number] Apply to [facility] e (JOCK 0-17 area(s) 2 ity of ITCH, 00:00: (two) [place] CLOTRIMAZOL 00 times Medical E,) 1 % daily. For Branch topical one week cream clotrimazol 2021-11 Yes [id number] Apply to [facility] e (JOCK 0-17 area(s) 2 ity of ITCH, 00:00: (two) [place] CLOTRIMAZOL 00 times Medical E,) 1 % daily. For Branch topical one week cream clotrimazol 2021-11 Yes [id number] Apply to [facility] e (JOCK 0-17 area(s) 2 ity of ITCH, 00:00: (two) [place] CLOTRIMAZOL 00 times Medical E,) 1 % daily. For Branch topical one week cream clotrimazol 2021-11 Yes [id number] Apply to [facility] e (JOCK 0-17 area(s) 2 ity of ITCH, 00:00: (two) [place] CLOTRIMAZOL 00 times Medical E,) 1 % daily. For Branch topical one week cream clotrimazol 2021-11 Yes [id number] Apply to [facility] e (JOCK 0-17 area(s) 2 ity of ITCH, 00:00: (two) [place] CLOTRIMAZOL 00 times Medical E,) 1 % daily. For Branch topical one week cream clotrimazol 2021-11 Yes [id number] Apply to [facility] e (JOCK 0-17 area(s) 2 ity of ITCH, 00:00: (two) [place] CLOTRIMAZOL 00 times Medical E,) 1 % daily. For Branch topical one week cream clotrimazol 2021-11- No [id number] Apply to [facility] e (JOCK 0-17 10-31 area(s) 2 ity of ITCH, 00:00: 00:00 (two) [place] CLOTRIMAZOL 00 :00 times Medical E,) 1 % daily. For Branch topical one week cream albuterol 2021-11- No [id number] 2.5mg U nivers (PROVENTIL) 0-15 10-15 ity of 2.5 mg /3 23:45: 22:45 [place] mL (0.083 00 :00 Medical %) Branch nebulizer solution 2.5 mg albuterol 2021-11- No [id number] 2.5mg 2.5 mg, Univers (PROVENTIL) 0-15 10-15 Inhalation i ty of 2.5 mg /3 23:45: 22:45 , ONCE [place] mL (0.083 00 :00 NOW, 1 Medical %) dose, On Branch nebulizer Sat solution 09/06/22 2.5 mg at 1845, Routine albuterol 2021-11- No [id number] 2.5mg U nivers (PROVENTIL) 0-15 10-15 ity of 2.5 mg /3 23:45: 22:45 [place] mL (0.083 00 :00 Medical %) Branch nebulizer solution 2.5 mg albuterol 2021-11- No [id number] 2.5mg 2.5 mg, Univers (PROVENTIL) 0-15 10-15 Inhalation i ty of 2.5 mg /3 23:45: 22:45 , ONCE [place] mL (0.083 00 :00 NOW, 1 Medical %) dose, On Branch nebulizer Sat solution 09/06/22 2.5 mg at 1845, Routine albuterol 2021-11- No [id number] 2.5mg U nivers (PROVENTIL) 0-15 10-15 ity of 2.5 mg /3 23:45: 22:45 [place] mL (0.083 00 :00 Medical %) Branch nebulizer solution 2.5 mg albuterol 2021-11- No [id number] 2.5mg 2.5 mg, Univers (PROVENTIL) 0-15 10-15 Inhalation i ty of 2.5 mg /3 23:45: 22:45 , ONCE [place] mL (0.083 00 :00 NOW, 1 Medical %) dose, On Branch nebulizer Sat solution 09/06/22 2.5 mg at 1845, Routine albuterol 2021-11- No [id number] 2.5mg U nivers (PROVENTIL) 0-15 10-15 ity of 2.5 mg /3 23:45: 22:45 [place] mL (0.083 00 :00 Medical %) Branch nebulizer solution 2.5 mg albuterol 2021-11- No [id number] 2.5mg 2.5 mg, Univers (PROVENTIL) 0-15 10-15 Inhalation i ty of 2.5 mg /3 23:45: 22:45 , ONCE [place] mL (0.083 00 :00 NOW, 1 Medical %) dose, On Branch nebulizer Sat solution 09/06/22 2.5 mg at 1845, Routine albuterol 2021-11- No [id number] 2.5mg U nivers (PROVENTIL) 0-15 10-15 ity of 2.5 mg /3 23:45: 22:45 [place] mL (0.083 00 :00 Medical %) Branch nebulizer solution 2.5 mg albuterol 2021-11 No [id number] 2.5mg 2.5 mg, Univers (PROVENTIL) 0-15 10-15 Inhalation i ty of 2.5 mg /3 23:45: 22:45 , ONCE [place] mL (0.083 00 :00 NOW, 1 Medical %) dose, On Branch nebulizer Sat solution 09/06/22 2.5 mg at 1845, Routine albuterol 2021-11- No [id number] 2.5mg U nivers (PROVENTIL) 0-15 10-15 ity of 2.5 mg /3 23:45: 22:45 [place] mL (0.083 00 :00 Medical %) Branch nebulizer solution 2.5 mg albuterol 2021-11 No [id number] 2.5mg 2.5 mg, Univers (PROVENTIL) 0-15 10-15 Inhalation i ty of 2.5 mg /3 23:45: 22:45 , ONCE [place] mL (0.083 00 :00 NOW, 1 Medical %) dose, On Branch nebulizer Sat solution 09/06/22 2.5 mg at 1845, Routine albuterol 2021-11- No [id number] 2.5mg U nivers (PROVENTIL) 0-15 10-15 ity of 2.5 mg /3 23:45: 22:45 [place] mL (0.083 00 :00 Medical %) Branch nebulizer solution 2.5 mg albuterol 2021-11 No [id number] 2.5mg 2.5 mg, Univers (PROVENTIL) 0-15 10-15 Inhalation i ty of 2.5 mg /3 23:45: 22:45 , ONCE [place] mL (0.083 00 :00 NOW, 1 Medical %) dose, On Branch nebulizer Sat solution 09/06/22 2.5 mg at 1845, Routine albuterol 2021-11- No [id number] 2.5mg U nivers (PROVENTIL) 0-15 10-15 ity of 2.5 mg /3 23:45: 22:45 [place] mL (0.083 00 :00 Medical %) Branch nebulizer solution 2.5 mg albuterol 2021-11 No [id number] 2.5mg 2.5 mg, Univers (PROVENTIL) 0-15 10-15 Inhalation i ty of 2.5 mg /3 23:45: 22:45 , ONCE [place] mL (0.083 00 :00 NOW, 1 Medical %) dose, On Branch nebulizer Sat solution 09/06/22 2.5 mg at 1845, Routine ipratropium 2021-11- No [id number] .5mg [facility] (ATROVENT) 0-15 10-15 ity of 0.02 % 23:30: 22:46 [place] nebulizer 00 :00 Medical solution Branch 0.5 mg ipratropium 2021-11- No [id number] .[id number] 0.5 mg, Univers (ATROVENT) 0-15 10-15 Inhalation it y of 0.02 % 23:30: 22:46 , ONCE, 1 [place] nebulizer 00 :00 dose, On Medica l solution Sat Branch 0.5 mg 09/06/22 at 1830, Routine ipratropium 2021-11 No [id number] .5mg [facility] (ATROVENT) 0-15 10-15 ity of 0.02 % 23:30: 22:46 [place] nebulizer 00 :00 Medical solution Branch 0.5 mg ipratropium 2021-11- No [id number] .[id number] 0.5 mg, Univers (ATROVENT) 0-15 10-15 Inhalation it y of 0.02 % 23:30: 22:46 , ONCE, 1 [place] nebulizer 00 :00 dose, On Medica l solution Sat Branch 0.5 mg 09/06/22 at 1830, Routine ipratropium 2021-11- No [id number] .5mg [facility] (ATROVENT) 0-15 10-15 ity of 0.02 % 23:30: 22:46 [place] nebulizer 00 :00 Medical solution Branch 0.5 mg ipratropium 2021-11- No [id number] .[id number] 0.5 mg, Univers (ATROVENT) 0-15 10-15 Inhalation it y of 0.02 % 23:30: 22:46 , ONCE, 1 [place] nebulizer 00 :00 dose, On Medica l solution Sat Branch 0.5 mg 1015/22 at 1830, Routine ipratropium 2021-11 No [id number] .5mg [facility] (ATROVENT) 0-15 10-15 ity of 0.02 % 23:30: 22:46 [place] nebulizer 00 :00 Medical solution Branch 0.5 mg ipratropium 2021-11- No [id number] .[id number] 0.5 mg, Univers (ATROVENT) 0-15 10-15 Inhalation it y of 0.02 % 23:30: 22:46 , ONCE, 1 [place] nebulizer 00 :00 dose, On Medica l solution Sat Branch 0.5 mg 09/06/22 at 1830, Routine ipratropium 2021-11 No [id number] .5mg [facility] (ATROVENT) 0-15 10-15 ity of 0.02 % 23:30: 22:46 [place] nebulizer 00 :00 Medical solution Branch 0.5 mg ipratropium 2021-11 No [id number] .[id number] 0.5 mg, Univers (ATROVENT) 0-15 10-15 Inhalation it y of 0.02 % 23:30: 22:46 , ONCE, 1 [place] nebulizer 00 :00 dose, On Medica l solution Sat Branch 0.5 mg 09/06/22 at 1830, Routine ipratropium 2021-11 No [id number] .5mg [facility] (ATROVENT) 0-15 10-15 ity of 0.02 % 23:30: 22:46 [place] nebulizer 00 :00 Medical solution Branch 0.5 mg ipratropium 2021-11 No [id number] .5mg 0.5 mg, Univers (ATROVENT) 0-15 10-15 Inhalation it y of 0.02 % 23:30: 22:46 , ONCE, 1 [place] nebulizer 00 :00 dose, On Medica l solution Sat Branch 0.5 mg 09/06/22 at 1830, Routine ipratropium 2021-11- No [id number] .5mg [facility] (ATROVENT) 0-15 10-15 ity of 0.02 % 23:30: 22:46 [place] nebulizer 00 :00 Medical solution Branch 0.5 mg ipratropium 2021-11- No [id number] .5mg 0.5 mg, Univers (ATROVENT) 0-15 10-15 Inhalation it y of 0.02 % 23:30: 22:46 , ONCE, 1 [place] nebulizer 00 :00 dose, On Medica l solution Sat Branch 0.5 mg 09/06/22 at 1830, Routine ipratropium 2021-11- No [id number] .5mg [facility] (ATROVENT) 0-15 10-15 ity of 0.02 % 23:30: 22:46 [place] nebulizer 00 :00 Medical solution Branch 0.5 mg ipratropium 2021-11- No [id number] .5mg 0.5 mg, Univers (ATROVENT) 0-15 10-15 Inhalation it y of 0.02 % 23:30: 22:46 , ONCE, 1 [place] nebulizer 00 :00 dose, On Medica l solution Sat Branch 0.5 mg 09/06/22 at 1830, Routine methylPREDN 2021-11- No [id number] 40mg [facility] ISolone sod 0-15 10-15 ity of succ 23:15: 22:46 [place] (SOLU-MEDRO 00 :15 Medical L (PF)) Branch injection 40 mg methylPREDN 2021-11- No [id number] 40mg [facility] ISolone sod 0-15 10-15 ity of succ 23:15: 22:47 [place] (SOLU-MEDRO 00 :00 Medical L (PF)) Branch injection 40 mg methylPREDN 2021-11- No [id number] 40mg 40 mg, [facility] ISolone sod 0-15 10-15 Intramuscu i ty of succ 23:15: 22:47 lar, ONCE, [place] (SOLU-MEDRO 00 :00 1 dose, On Me dical L (PF)) Sat Branch injection 09/06/22 40 mg at 1815, Routine methylPREDN 2021-11- No [id number] 40mg [facility] ISolone sod 0-15 10-15 ity of succ 23:15: 22:46 [place] (SOLU-MEDRO 00 :15 Medical L (PF)) Branch injection 40 mg methylPREDN 2021-11- No [id number] 40mg [facility] ISolone sod 0-15 10-15 ity of succ 23:15: 22:47 [place] (SOLU-MEDRO 00 :00 Medical L (PF)) Branch injection 40 mg methylPREDN 2021-11- No [id number] 40mg 40 mg, [facility] ISolone sod 0-15 10-15 Intramuscu i ty of succ 23:15: 22:47 lar, ONCE, [place] (SOLU-MEDRO 00 :00 1 dose, On Me dical L (PF)) Sat Branch injection 09/06/22 40 mg at 1815, Routine methylPREDN 2021-11- No [id number] 40mg [facility] ISolone sod 0-15 10-15 ity of succ 23:15: 22:46 [place] (SOLU-MEDRO 00 :15 Medical L (PF)) Branch injection 40 mg methylPREDN 2021-11- No [id number] 40mg [facility] ISolone sod 0-15 10-15 ity of succ 23:15: 22:47 [place] (SOLU-MEDRO 00 :00 Medical L (PF)) Branch injection 40 mg methylPREDN 2021-11- No [id number] 40mg 40 mg, [facility] ISolone sod 0-15 10-15 Intramuscu i ty of succ 23:15: 22:47 lar, ONCE, [place] (SOLU-MEDRO 00 :00 1 dose, On Me dical L (PF)) Sat Branch injection 09/06/22 40 mg at 1815, Routine methylPREDN 2021-11- No [id number] 40mg [facility] ISolone sod 0-15 10-15 ity of succ 23:15: 22:46 [place] (SOLU-MEDRO 00 :15 Medical L (PF)) Branch injection 40 mg methylPREDN 2021-11- No [id number] 40mg [facility] ISolone sod 0-15 10-15 ity of succ 23:15: 22:47 [place] (SOLU-MEDRO 00 :00 Medical L (PF)) Branch injection 40 mg methylPREDN 2021-11- No [id number] 40mg 40 mg, Univers ISolone sod 0-15 10-15 Intramuscu i ty of succ 23:15: 22:47 lar, ONCE, [place] (SOLU-MEDRO 00 :00 1 dose, On Me dical L (PF)) Sat Branch injection 09/06/22 40 mg at 1815, Routine methylPREDN 2021-11- No [id number] 40mg [facility] ISolone sod 0-15 10-15 ity of succ 23:15: 22:46 [place] (SOLU-MEDRO 00 :15 Medical L (PF)) Branch injection 40 mg methylPREDN 2021-11- No [id number] 40mg [facility] ISolone sod 0-15 10-15 ity of succ 23:15: 22:47 [place] (SOLU-MEDRO 00 :00 Medical L (PF)) Branch injection 40 mg methylPREDN 2021-11- No [id number] 40mg 40 mg, Univers ISolone sod 0-15 10-15 Intramuscu i ty of succ 23:15: 22:47 lar, ONCE, [place] (SOLU-MEDRO 00 :00 1 dose, On Me dical L (PF)) Sat Branch injection 09/06/22 40 mg at 1815, Routine methylPREDN 2021-11- No [id number] 40mg [facility] ISolone sod 0-15 10-15 ity of succ 23:15: 22:46 [place] (SOLU-MEDRO 00 :15 Medical L (PF)) Branch injection 40 mg methylPREDN 2021-11- No [id number] 40mg [facility] ISolone sod 0-15 10-15 ity of succ 23:15: 22:47 [place] (SOLU-MEDRO 00 :00 Medical L (PF)) Branch injection 40 mg methylPREDN 2021-11- No [id number] 40mg 40 mg, [facility] ISolone sod 0-15 10-15 Intramuscu i ty of succ 23:15: 22:47 lar, ONCE, [place] (SOLU-MEDRO 00 :00 1 dose, On Me dical L (PF)) Sat Branch injection 09/06/22 40 mg at 1815, Routine methylPREDN 2021-11- No [id number] 40mg [facility] ISolone sod 0-15 10-15 ity of succ 23:15: 22:46 [place] (SOLU-MEDRO 00 :15 Medical L (PF)) Branch injection 40 mg methylPREDN 2021-11- No [id number] 40mg [facility] ISolone sod 0-15 10-15 ity of succ 23:15: 22:47 [place] (SOLU-MEDRO 00 :00 Medical L (PF)) Branch injection 40 mg methylPREDN 2021-11- No [id number] 40mg 40 mg, Univers ISolone sod 0-15 10-15 Intramuscu i ty of succ 23:15: 22:47 lar, ONCE, [place] (SOLU-MEDRO 00 :00 1 dose, On Me dical L (PF)) Sat Branch injection 09/06/22 40 mg at 1815, Routine methylPREDN 2021-11- No [id number] 40mg [facility] ISolone sod 0-15 10-15 ity of succ 23:15: 22:46 [place] (SOLU-MEDRO 00 :15 Medical L (PF)) Branch injection 40 mg methylPREDN 2021-11- No [id number] 40mg [facility] ISolone sod 0-15 10-15 ity of succ 23:15: 22:47 [place] (SOLU-MEDRO 00 :00 Medical L (PF)) Branch injection 40 mg methylPREDN 2021-11- No [id number] 40mg 40 mg, Univers ISolone sod 0-15 10-15 Intramuscu i ty of succ 23:15: 22:47 lar, ONCE, [place] (SOLU-MEDRO 00 :00 1 dose, On Me dical L (PF)) Sat Branch injection 09/06/22 40 mg at 1815, Routine azithromyci 2021-11 Yes [id number] Z-Wil = Univers n 0-15 500 mg day ity of (ZITHROMAX 00:00: 1, then [place] Z-WIL) 250 00 250 mg Medical mg tablet days 2 to Branc h 5. Z-Wil = 500mg day 1, then 250mg days 2 to 5. benzonatate 2021-11 Yes [id number] 200mg Take 2 [facility] 100 mg 0-15 capsules ity of capsule 00:00: by mouth every 8 Medical (eight) Branch hours as needed for Cough. guaiFENesin 2021-11 Yes [id number] 400mg Take 1 [facility] 400 mg 0-15 tablet by ity of tablet 00:00: mouth every 4 Medical (four) Branch hours as needed for Cough. azithromyci 2021-11 Yes [id number] Z-Wil = Univers n 0-15 500 mg day ity of (ZITHROMAX 00:00: 1, then [place] Z-WIL) 250 00 250 mg Medical mg tablet days 2 to Branc h 5. Z-Wil = 500mg day 1, then 250mg days 2 to 5. benzonatate 2021-11 Yes [id number] 200mg Take 2 [facility] 100 mg 0-15 capsules ity of capsule 00:00: by mouth [place] 00 every 8 Medical (eight) Branch hours as needed for Cough. guaiFENesin 2021-11 Yes [id number] 400mg Take 1 [facility] 400 mg 0-15 tablet by ity of tablet 00:00: mouth [place] 00 every 4 Medical (four) Branch hours as needed for Cough. azithromyci 2021-11 Yes [id number] [facility] = [facility] 0-15 500 mg day ity of (ZITHROMAX 00:[place] [facility] 250 00 250 mg Medical mg tablet days 2 to Branc h 5. Z-Wil = 500mg day 1, then 250mg days 2 to 5. benzonatate 2021-11 Yes [id number] 200mg Take 2 [facility] 100 mg 0-15 capsules ity of capsule 00:00: by mouth [place] 00 every 8 Medical (eight) Branch hours as needed for Cough. guaiFENesin 2021-11 Yes [id number] 400mg Take 1 [facility] 400 mg 0-15 tablet by ity of tablet 00:00: mouth [place] 00 every 4 Medical (four) Branch hours as needed for Cough. azithromyci 2021-11 Yes [id number] Z-Wil = [facility] n 0-15 500 mg day ity of (ZITHROMAX 00:00: [place] [facility] 250 00 250 mg Medical mg tablet days 2 to Branc h 5. Z-Wil = 500mg day 1, then 250mg days 2 to 5. benzonatate 2021-11 Yes [id number] 200mg Take 2 [facility] 100 mg 0-15 capsules ity of capsule 00:00: by mouth [place] 00 every 8 Medical (eight) Branch hours as needed for Cough. guaiFENesin 2021-11 Yes [id number] 400mg Take 1 [facility] 400 mg 0-15 tablet by ity of tablet 00:00: mouth [place] 00 every 4 Medical (four) Branch hours as needed for Cough. azithromyci 2021-11 Yes [id number] Z-[facility] = [facility] n 0-15 500 mg day ity of (ZITHROMAX 00:00: [place] [facility] 250 00 250 mg Medical mg tablet days 2 to Branc h 5. Z-Wil = 500mg day 1, then 250mg days 2 to 5. benzonatate 2021-11 Yes [id number] 200mg Take 2 [facility] 100 mg 0-15 capsules ity of capsule 00:00: by mouth [place] 00 every 8 Medical (eight) Branch hours as needed for Cough. guaiFENesin 2021-11 Yes [id number] 400mg Take 1 [facility] 400 mg 0-15 tablet by ity of tablet 00:00: mouth [place] 00 every 4 Medical (four) Branch hours as needed for Cough. azithromyci 2021-11 Yes [id number] Z-Wil = [facility] n 0-15 500 mg day ity of (ZITHROMAX 00:00: [place] [facility] 250 00 250 mg Medical mg tablet days 2 to Branc h 5. Z-Wil = 500mg day 1, then 250mg days 2 to 5. benzonatate 2021-11 Yes [id number] 200mg Take 2 [facility] 100 mg 0-15 capsules ity of capsule 00:00: by mouth [place] 00 every 8 Medical (eight) Branch hours as needed for Cough. guaiFENesin 2021-11 Yes [id number] 400mg Take 1 [facility] 400 mg 0-15 tablet by ity of tablet 00:00: mouth [place] 00 every 4 Medical (four) Branch hours as needed for Cough. azithromyci 2021-11 Yes [id number] Z-[facility] = [facility] 0-15 500 mg day ity of (ZITHROMAX 00:00: [place] [facility] 250 00 250 mg Medical mg tablet days 2 to Branc h 5. Z-Wil = 500mg day 1, then 250mg days 2 to 5. benzonatate 2021-11 Yes [id number] 200mg Take 2 [facility] 100 mg 0-15 capsules ity of capsule 00:00: by mouth [place] 00 every 8 Medical (eight) Branch hours as needed for Cough. guaiFENesin 2021-11 Yes [id number] 400mg Take 1 [facility] 400 mg 0-15 tablet by ity of tablet 00:00: mouth [place] 00 every 4 Medical (four) Branch hours as needed for Cough. azithromyci 2021-11 Yes [id number] Z-[facility] = [facility] 0-15 500 mg day ity of (ZITHROMAX 00:00: [place] [facility] 250 00 250 mg Medical mg tablet days 2 to Branc h 5. Z-Wil = 500mg day 1, then 250mg days 2 to 5. benzonatate 2021-11 Yes [id number] 200mg Take 2 [facility] 100 mg 0-15 capsules ity of capsule 00:00: by mouth [place] 00 every 8 Medical (eight) Branch hours as needed for Cough. guaiFENesin 2021-11 Yes [id number] 400mg Take 1 [facility] 400 mg 0-15 tablet by ity of tablet 00:00: mouth [place] 00 every 4 Medical (four) Branch hours as needed for Cough. azithromyci 2021-11 Yes [id number] Z-[facility] = [facility] 0-15 500 mg day ity of (ZITHROMAX 00:00: [place] [facility]-W[facility] 250 00 250 mg Medical mg tablet days 2 to Branc h 5. Z-Wil = 500mg day 1, then 250mg days 2 to 5. benzonatate 2021-11 Yes [id number] 200mg Take 2 [facility] 100 mg 0-15 capsules ity of capsule 00:00: by mouth [place] 00 every 8 Medical (eight) Branch hours as needed for Cough. guaiFENesin 2021-11 Yes [id number] 400mg Take 1 [facility] 400 mg 0-15 tablet by ity of tablet 00:00: mouth [place] 00 every 4 Medical (four) Branch hours as needed for Cough. azithromyci 2021-11 Yes [id number] Z-Wil = [facility] 0-15 500 mg day ity of (ZITHROMAX 00:00: [place], [place] [facility]-WIL[place] 250 00 250 mg Medical mg tablet days 2 to Branc h 5. Z-Wil = 500mg day 1, then 250mg days 2 to 5. benzonatate 2021-11 Yes [id number] 200mg Take 2 [facility] 100 mg 0-15 capsules ity of capsule 00:00: by mouth [place] 00 every 8 Medical (eight) Branch hours as needed for Cough. guaiFENesin 2021-11 Yes [id number] 400mg Take 1 [facility] 400 mg 0-15 tablet by ity of tablet 00:00: mouth [place] 00 every 4 Medical (four) Branch hours as needed for Cough. azithromyci 2021-11 Yes [id number] Z-Wil = [facility] 0-15 500 mg day ity of (ZITHROMAX 00:00: [place] [facility]-W[facility] 250 00 250 mg Medical mg tablet days 2 to Branc h 5. Z-Wil = 500mg day 1, then 250mg days 2 to 5. benzonatate 2021-11 Yes [id number] 200mg Take 2 [facility] 100 mg 0-15 capsules ity of capsule 00:00: by mouth [place] 00 every 8 Medical (eight) Branch hours as needed for Cough. guaiFENesin 2021-11 Yes [id number] 400mg Take 1 [facility] 400 mg 0-15 tablet by ity of tablet 00:00: mouth [place] 00 every 4 Medical (four) Branch hours as needed for Cough. azithromyci 2021-11 Yes [id number] Z-Wil = [facility] 0-15 500 mg day ity of (ZITHROMAX 00:00: [place], [place] [facility]-WIL[place] 250 00 250 mg Medical mg tablet days 2 to Branc h 5. Z-Wil = 500mg day 1, then 250mg days 2 to 5. benzonatate 2021-11 Yes [id number] 200mg Take 2 [facility] 100 mg 0-15 capsules ity of capsule 00:00: by mouth [place] 00 every 8 Medical (eight) Branch hours as needed for Cough. guaiFENesin 2021-11 Yes [id number] 400mg Take 1 [facility] 400 mg 0-15 tablet by ity of tablet 00:00: mouth [place] 00 every 4 Medical (four) Branch hours as needed for Cough. azithromyci 2021-11 Yes [id number] Z-Wil = [facility] 0-15 500 mg day ity of (ZITHROMAX 00:00: [place] [facility]-W[facility] 250 00 250 mg Medical mg tablet days 2 to Branc h 5. Z-Wil = 500mg day 1, then 250mg days 2 to 5. benzonatate 2021-11 Yes [id number] 200mg Take 2 [facility] 100 mg 0-15 capsules ity of capsule 00:00: by mouth [place] 00 every 8 Medical (eight) Branch hours as needed for Cough. guaiFENesin 2021-11 Yes [id number] 400mg Take 1 [facility] 400 mg 0-15 tablet by ity of tablet 00:00: mouth [place] 00 every 4 Medical (four) Branch hours as needed for Cough. azithromyci 2021-11 Yes [id number] Z-Wil = [facility] 0-15 500 mg day ity of (ZITHROMAX 00:00: [place], [place] [facility]-WIL[place] 250 00 250 mg Medical mg tablet days 2 to Branc h 5. Z-Wil = 500mg day 1, then 250mg days 2 to 5. benzonatate 2021-11 Yes [id number] 200mg Take 2 [facility] 100 mg 0-15 capsules ity of capsule 00:00: by mouth [place] 00 every 8 Medical (eight) Branch hours as needed for Cough. guaiFENesin 2021-11 Yes [id number] 400mg Take 1 [facility] 400 mg 0-15 tablet by ity of tablet 00:00: mouth [place] 00 every 4 Medical (four) Branch hours as needed for Cough. azithromyci 2021-11 Yes [id number] Z-[facility] = [facility] 0-15 500 mg day ity of (ZITHROMAX 00:00: [place], [place] [facility]-WIL[place] 250 00 250 mg Medical mg tablet days 2 to Branc h 5. Z-Wil = 500mg day 1, then 250mg days 2 to 5. benzonatate 2021-11 Yes [id number] 200mg Take 2 [facility] 100 mg 0-15 capsules ity of capsule 00:00: by mouth [place] 00 every 8 Medical (eight) Branch hours as needed for Cough. guaiFENesin 2021-11 Yes [id number] 400mg Take 1 [facility] 400 mg 0-15 tablet by ity of tablet 00:00: mouth [place] 00 every 4 Medical (four) Branch hours as needed for Cough. azithromyci 2021-11 Yes [id number] Z-[facility] = [facility] 0-15 500 mg day ity of (ZITHROMAX 00:00: [place], [place] [facility]-W[facility] 250 00 250 mg Medical mg tablet days 2 to Branc h 5. Z-Wil = 500mg day 1, then 250mg days 2 to 5. benzonatate 2021-11 Yes [id number] 200mg Take 2 [facility] 100 mg 0-15 capsules ity of capsule 00:00: by mouth [place] 00 every 8 Medical (eight) Branch hours as needed for Cough. guaiFENesin 2021-11 Yes [id number] 400mg Take 1 [facility] 400 mg 0-15 tablet by ity of tablet 00:00: mouth [place] 00 every 4 Medical (four) Branch hours as needed for Cough. azithromyci 2021-11 Yes [id number] Z-Wil = [facility] 0-15 500 mg day ity of (ZITHROMAX 00:00: [place] [facility]-WIL[place] 250 00 250 mg Medical mg tablet days 2 to Branc h 5. Z-Wil = 500mg day 1, then 250mg days 2 to 5. benzonatate 2021-11 Yes [id number] 200mg Take 2 [facility] 100 mg 0-15 capsules ity of capsule 00:00: by mouth [place] 00 every 8 Medical (eight) Branch hours as needed for Cough. guaiFENesin 2021-11 Yes [id number] 400mg Take 1 [facility] 400 mg 0-15 tablet by ity of tablet 00:00: mouth [place] 00 every 4 Medical (four) Branch hours as needed for Cough. azithromyci 2021-11 Yes [id number] Z-Wil = [facility] 0-15 500 mg day ity of (ZITHROMAX 00:00: [place], [place] [facility]-WIL[place] 250 00 250 mg Medical mg tablet days 2 to Branc h 5. Z-Wil = 500mg day 1, then 250mg days 2 to 5. benzonatate 2021-11 Yes [id number] 200mg Take 2 [facility] 100 mg 0-15 capsules ity of capsule 00:00: by mouth [place] 00 every 8 Medical (eight) Branch hours as needed for Cough. guaiFENesin 2021-11 Yes [id number] 400mg Take 1 [facility] 400 mg 0-15 tablet by ity of tablet 00:00: mouth [place] 00 every 4 Medical (four) Branch hours as needed for Cough. azithromyci 2021-11 Yes [id number] Z-Wil = [facility] n 0-15 500 mg day ity of (ZITHROMAX 00:00: [place], [place] [facility]-WIL) 250 00 250 mg Medical mg tablet days 2 to Branc h 5. Z-Wil = 500mg day 1, then 250mg days 2 to 5. benzonatate 2021-11 Yes [id number] 200mg Take 2 [facility] 100 mg 0-15 capsules ity of capsule 00:00: by mouth [place] 00 every 8 Medical (eight) Branch hours as needed for Cough. guaiFENesin 2021-11 Yes [id number] 400mg Take 1 [facility] 400 mg 0-15 tablet by ity of tablet 00:00: mouth [place] 00 every 4 Medical (four) Branch hours as needed for Cough. azithromyci 2021-11 Yes [id number] Z-Wil = [facility] n 0-15 500 mg day ity of (ZITHROMAX 00:00: [place], [place] [facility]-WIL) 250 00 250 mg Medical mg tablet days 2 to Branc h 5. Z-Wil = 500mg day 1, then 250mg days 2 to 5. benzonatate 2021-11 Yes [id number] 200mg Take 2 [facility] 100 mg 0-15 capsules ity of capsule 00:00: by mouth [place] 00 every 8 Medical (eight) Branch hours as needed for Cough. guaiFENesin 2021-11 Yes [id number] 400mg Take 1 [facility] 400 mg 0-15 tablet by ity of tablet 00:00: mouth [place] 00 every 4 Medical (four) Branch hours as needed for Cough. azithromyci 2021-11 Yes [id number] Z-Wil = [facility] n 0-15 500 mg day ity of (ZITHROMAX 00:00: [place], [place] Z-WIL) 250 00 250 mg Medical mg tablet days 2 to Branc h 5. Z-Wil = 500mg day 1, then 250mg days 2 to 5. benzonatate 2021-11 Yes [id number] 200mg Take 2 [facility] 100 mg 0-15 capsules ity of capsule 00:00: by mouth [place] 00 every 8 Medical (eight) Branch hours as needed for Cough. guaiFENesin 2021-11 Yes [id number] 400mg Take 1 [facility] 400 mg 0-15 tablet by ity of tablet 00:00: mouth [place] 00 every 4 Medical (four) Branch hours as needed for Cough. azithromyci 2021-11 Yes [id number] Z-Wil = [facility] n 0-15 500 mg day ity of (ZITHROMAX 00:00: [place], [place] [facility]-WIL) 250 00 250 mg Medical mg tablet days 2 to Branc h 5. Z-Wil = 500mg day 1, then 250mg days 2 to 5. benzonatate 2021-11 Yes [id number] 200mg Take 2 [facility] 100 mg 0-15 capsules ity of capsule 00:00: by mouth [place] 00 every 8 Medical (eight) Branch hours as needed for Cough. guaiFENesin 2021-11 Yes [id number] 400mg Take 1 [facility] 400 mg 0-15 tablet by ity of tablet 00:00: mouth [place] 00 every 4 Medical (four) Branch hours as needed for Cough. azithromyci 2021-11 Yes [id number] Z-Wil = [facility] n 0-15 500 mg day ity of (ZITHROMAX 00:00: [place], [place] [facility]-WIL) 250 00 250 mg Medical mg tablet days 2 to Branc h 5. Z-Wil = 500mg day 1, then 250mg days 2 to 5. benzonatate 2021-11 Yes [id number] 200mg Take 2 [facility] 100 mg 0-15 capsules ity of capsule 00:00: by mouth [place] 00 every 8 Medical (eight) Branch hours as needed for Cough. guaiFENesin 2021-11 Yes [id number] 400mg Take 1 [facility] 400 mg 0-15 tablet by ity of tablet 00:00: mouth [place] 00 every 4 Medical (four) Branch hours as needed for Cough. azithromyci 2021-11 Yes [id number] Z-Wil = [facility] n 0-15 500 mg day ity of (ZITHROMAX 00:00: [place], [place] [facility]-WIL) 250 00 250 mg Medical mg tablet days 2 to Branc h 5. Z-Wil = 500mg day 1, then 250mg days 2 to 5. benzonatate 2021-11 Yes [id number] 200mg Take 2 [facility] 100 mg 0-15 capsules ity of capsule 00:00: by mouth [place] 00 every 8 Medical (eight) Branch hours as needed for Cough. guaiFENesin 2021-11 Yes [id number] 400mg Take 1 [facility] 400 mg 0-15 tablet by ity of tablet 00:00: mouth [place] 00 every 4 Medical (four) Branch hours as needed for Cough. azithromyci 2021-11 Yes [id number] Z-Wil = [facility] n 0-15 500 mg day ity of (ZITHROMAX 00:00: [place], [place] Z-WIL) 250 00 250 mg Medical mg tablet days 2 to Branc h 5. Z-Wil = 500mg day 1, then 250mg days 2 to 5. benzonatate 2021-11 Yes [id number] 200mg Take 2 [facility] 100 mg 0-15 capsules ity of capsule 00:00: by mouth [place] 00 every 8 Medical (eight) Branch hours as needed for Cough. guaiFENesin 2021-11 Yes [id number] 400mg Take 1 [facility] 400 mg 0-15 tablet by ity of tablet 00:00: mouth [place] 00 every 4 Medical (four) Branch hours as needed for Cough. azithromyci 2021-11 Yes [id number] Z-Wil = [facility] n 0-15 500 mg day ity of (ZITHROMAX 00:00: [place], [place] Z-WIL) 250 00 250 mg Medical mg tablet days 2 to Branc h 5. Z-Wil = 500mg day 1, then 250mg days 2 to 5. benzonatate 2021-11 Yes [id number] 200mg Take 2 [facility] 100 mg 0-15 capsules ity of capsule 00:00: by mouth [place] 00 every 8 Medical (eight) Branch hours as needed for Cough. guaiFENesin 2021-11 Yes [id number] 400mg Take 1 [facility] 400 mg 0-15 tablet by ity of tablet 00:00: mouth [place] 00 every 4 Medical (four) Branch hours as needed for Cough. azithromyci 2021-11 Yes [id number] Z-Wil = [facility] n 0-15 500 mg day ity of (ZITHROMAX 00:00: [place], [place] Z-WIL) 250 00 250 mg Medical mg tablet days 2 to Branc h 5. Z-Wil = 500mg day 1, then 250mg days 2 to 5. benzonatate 2021-11 Yes [id number] 200mg Take 2 [facility] 100 mg 0-15 capsules ity of capsule 00:00: by mouth [place] 00 every 8 Medical (eight) Branch hours as needed for Cough. guaiFENesin 2021-11 Yes [id number] 400mg Take 1 [facility] 400 mg 0-15 tablet by ity of tablet 00:00: mouth [place] 00 every 4 Medical (four) Branch hours as needed for Cough. azithromyci 2021-11 Yes [id number] Z-Wil = [facility] n 0-15 500 mg day ity of (ZITHROMAX 00:00: [place], [place] Z-WIL) 250 00 250 mg Medical mg tablet days 2 to Branc h 5. Z-Wil = 500mg day 1, then 250mg days 2 to 5. benzonatate 2021-11 Yes [id number] 200mg Take 2 [facility] 100 mg 0-15 capsules ity of capsule 00:00: by mouth [place] 00 every 8 Medical (eight) Branch hours as needed for Cough. guaiFENesin 2021-11 Yes [id number] 400mg Take 1 [facility] 400 mg 0-15 tablet by ity of tablet 00:00: mouth [place] 00 every 4 Medical (four) Branch hours as needed for Cough. azithromyci 2021-11 Yes [id number] Z-Wil = [facility] n 0-15 500 mg day ity of (ZITHROMAX 00:00: [place], [place] Z-WIL) 250 00 250 mg Medical mg tablet days 2 to Branc h 5. Z-Wil = 500mg day 1, then 250mg days 2 to 5. benzonatate 2021-11 Yes [id number] 200mg Take 2 [facility] 100 mg 0-15 capsules ity of capsule 00:00: by mouth [place] 00 every 8 Medical (eight) Branch hours as needed for Cough. guaiFENesin 2021-11 Yes [id number] 400mg Take 1 [facility] 400 mg 0-15 tablet by ity of tablet 00:00: mouth [place] 00 every 4 Medical (four) Branch hours as needed for Cough. guaiFENesin 2021-11 Yes [id number] 400mg Take 1 [facility] 400 mg 0-15 tablet by ity of tablet 00:00: mouth [place] 00 every 4 Medical (four) Branch hours as needed for Cough. guaiFENesin 2021-11 Yes [id number] 400mg Take 1 [facility] 400 mg 0-15 tablet by ity of tablet 00:00: mouth [place] 00 every 4 Medical (four) Branch hours as needed for Cough. guaiFENesin 2021-11 Yes [id number] 400mg Take 1 [facility] 400 mg 0-15 tablet by ity of tablet 00:00: mouth [place] 00 every 4 Medical (four) Branch hours as needed for Cough. guaiFENesin 2021-11 Yes [id number] 400mg Take 1 [facility] 400 mg 0-15 tablet by ity of tablet 00:00: mouth [place] 00 every 4 Medical (four) Branch hours as needed for Cough. guaiFENesin 2021-11- No [id number] 400mg Take 1 [facility] 400 mg 0-15 - tablet by ity of tablet 00:00: 00:00 mouth [place] 00 :00 every 4 Medical (four) Branch hours as needed for Cough. azithromyci 2021-11- No [id number] Z-Wil = [facility] n 0-15 10-31 500 mg day ity of (ZITHROMAX 00:00: 00:00 1, then [place] Z-WIL) 250 00 :00 250 mg Medical mg tablet days 2 to Branc h 5. Z-Wil = 500mg day 1, then 250mg days 2 to 5. benzonatate 2021-11 No [id number] 200mg Take 2 [facility] 100 mg 0-15 10-31 capsules ity of capsule 00:00: 00:00 by mouth [place] 00 :00 every 8 Medical (eight) Branch hours as needed for Cough. azithromyci 2021-11- No [id number] Z-Wil = [facility] n 0-15 10-31 500 mg day ity of (ZITHROMAX 00:00: 00:00 1, then [place] Z-WIL) 250 00 :00 250 mg Medical mg tablet days 2 to Branc h 5. Z-Wil = 500mg day 1, then 250mg days 2 to 5. benzonatate 2021-11- No [id number] 200mg Take 2 [facility] 100 mg 0-15 10-31 capsules ity of capsule 00:00: 00:00 by mouth [place] 00 :00 every 8 Medical (eight) Branch hours as needed for Cough. predniSONE 2021-11- No [id number] 40mg Take 2 [facility] 20 mg 0-15 10-21 tablets by ity of tablet 00:00: 04:59 mouth in [place] 00 :00 the [facility] for 5 days. predniSONE 2021-11- No [id number] 40mg Take 2 [facility] 20 mg 0-15 10-21 tablets by ity of tablet 00:00: 04:59 mouth in [place] 00 :00 the [facility] for 5 days. predniSONE 2021-11- No [id number] 40mg Take 2 [facility] 20 mg 0-15 10-21 tablets by ity of tablet 00:00: 04:59 mouth in [place] 00 :00 the [facility] for 5 days. predniSONE 2021-11- No [id number] 40mg Take 2 [facility] 20 mg 0-15 10-21 tablets by ity of tablet 00:00: 04:59 mouth in [place] 00 :00 the [facility] for 5 days. predniSONE 2021-11- No [id number] 40mg Take 2 [facility] 20 mg 0-15 10-21 tablets by ity of tablet 00:00: 04:59 mouth in [place] 00 :00 the [facility] for 5 days. predniSONE 2021-11- No [id number] 40mg Take 2 [facility] 20 mg 0-15 10-21 tablets by ity of tablet 00:00: 04:59 mouth in [place] 00 :00 the [facility] for 5 days. predniSONE 2021-11- No [id number] 40mg Take 2 [facility] 20 mg 0-15 10-21 tablets by ity of tablet 00:00: 04:59 mouth in [place] 00 :00 the [facility] for 5 days. predniSONE 2021-11- No [id number] 40mg Take 2 [facility] 20 mg 0-15 10-21 tablets by ity of tablet 00:00: 04:59 mouth in [place] 00 :00 the [facility] for 5 days. predniSONE 2021-11- No [id number] 40mg Take 2 [facility] 20 mg 0-15 10-21 tablets by ity of tablet 00:00: 04:59 mouth in [place] 00 :00 the [facility] for 5 days. predniSONE 2021-11- No [id number] 40mg Take 2 [facility] 20 mg 0-15 10-21 tablets by ity of tablet 00:00: 04:59 mouth in [place] 00 :00 the Medical morning Branch for 5 days. predniSONE 2021-11- No [id number] 40mg Take 2 [facility] 20 mg 0-15 10-21 tablets by ity of tablet 00:00: 04:59 mouth in [place] 00 :00 the Medical morning Branch for 5 days. predniSONE 2021-11- No [id number] 40mg Take 2 [facility] 20 mg 0-15 10-21 tablets by ity of tablet 00:00: 04:59 mouth in [place] 00 :00 the Medical morning Branch for 5 days. semaglutide 2021-11 Yes [id number] .5mg inject 0.5 [facility] (OZEMPIC) 0-07 mg under ity of 0.25 mg or 00:00: the skin [place] 0.5 mg(2 00 weekly. Medical mg/1.5 mL) Branch [facility] 2021-11 Yes [id number] 1{each} inject 1 Un lesly glucose 0-07 Each under ity of sensor 00:00: the skin [place] (FREESTYLE 00 every 2 Medica l CHON 2 (two) Branch SENSOR) Kit weeks. semaglutide 2021-11 Yes [id number] .5mg inject 0.5 [facility] (OZEMPIC) 0-07 mg under ity of 0.25 mg or 00:00: the skin [place] 0.5 mg(2 00 weekly. Medical mg/1.5 mL) Branch [facility] 2021-11 Yes [id number] 1{each} inject 1 Un lesly glucose 0-07 Each under ity of sensor 00:00: the skin [place] (FREESTYLE 00 every 2 Medica l CHON 2 (two) Branch SENSOR) Kit weeks. semaglutide 2021-11 Yes [id number] .5mg inject 0.5 [facility] (OZEMPIC) 0-07 mg under ity of 0.25 mg or 00:00: the skin [place] 0.5 mg(2 00 weekly. Medical mg/1.5 mL) Branch [facility] 2021-11 Yes [id number] 1{each} inject 1 Un lesly glucose 0-07 Each under ity of sensor 00:00: the skin [place] (FREESTYLE 00 every 2 Medica l CHON 2 (two) Branch SENSOR) Kit weeks. semaglutide 2021-11 Yes [id number] .[id number] inject 0.5 [facility] (OZEMPIC) 0-07 mg under ity of 0.25 mg or 00:00: the skin [place] 0.5 mg(2 00 weekly. Medical mg/1.5 mL) Branch PnIj flash 2021-11 Yes [id number] 1{each} inject 1 Un lesly glucose 0-07 Each under ity of sensor 00:00: the skin [place] (FREESTYLE 00 every 2 Medica l CHON 2 (two) Branch SENSOR) Kit weeks. semaglutide 2021-11 Yes [id number] .5mg inject 0.5 [facility] (OZEMPIC) 0-07 mg under ity of 0.25 mg or 00:00: the skin [place] 0.5 mg(2 00 weekly. Medical mg/1.5 mL) Branch PnIj flash 2021-11 Yes [id number] 1{each} inject 1 Un lesly glucose 0-07 Each under ity of sensor 00:00: the skin [place] (FREESTYLE 00 every 2 Medica l CHON 2 (two) Branch SENSOR) Kit weeks. semaglutide 2021-11 Yes [id number] .5mg inject 0.5 [facility] (OZEMPIC) 0-07 mg under ity of 0.25 mg or 00:00: the skin [place] 0.5 mg(2 00 weekly. Medical mg/1.5 mL) Branch PnIj flash 2021-11 Yes [id number] 1{each} inject 1 Un lesly glucose 0-07 Each under ity of sensor 00:00: the skin [place] (FREESTYLE 00 every 2 Medica l CHON 2 (two) Branch SENSOR) Kit weeks. semaglutide 2021-11 Yes [id number] .5mg inject 0.5 [facility] (OZEMPIC) 0-07 mg under ity of 0.25 mg or 00:00: the skin [place] 0.5 mg(2 00 weekly. Medical mg/1.5 mL) Branch PnIj flash 2021-11 Yes [id number] 1{each} inject 1 Un lesly glucose 0-07 Each under ity of sensor 00:00: the skin [place] (FREESTYLE 00 every 2 Medica l CHON 2 (two) Branch SENSOR) Kit weeks. semaglutide 2021-11 Yes [id number] .5mg inject 0.5 [facility] (OZEMPIC) 0-07 mg under ity of 0.25 mg or 00:00: the skin [place] 0.5 mg(2 00 weekly. Medical mg/1.5 mL) Branch PnIj flash 2021-11 Yes [id number] 1{each} inject 1 Un lesly glucose 0-07 Each under ity of sensor 00:00: the skin [place] (FREESTYLE 00 every 2 Medica l CHON 2 (two) Branch SENSOR) Kit weeks. semaglutide 2021-11 Yes [id number] .[id number] inject 0.5 [facility] (OZEMPIC) 0-07 mg under ity of 0.25 mg or 00:00: the skin [place] 0.5 mg(2 00 weekly. Medical mg/1.5 mL) Branch [facility] 2021-11 Yes [id number] 1{each} inject 1 Un lesly glucose 0-07 Each under ity of sensor 00:00: the skin [place] (FREESTYLE 00 every 2 Medica l CHON 2 (two) Branch SENSOR) Kit weeks. semaglutide 2021-11 Yes [id number] .5mg inject 0.5 [facility] (OZEMPIC) 0-07 mg under ity of 0.25 mg or 00:00: the skin [place] 0.5 mg(2 00 weekly. Medical mg/1.5 mL) Branch [facility] 2021-11 Yes [id number] 1{each} inject 1 Un lesly glucose 0-07 Each under ity of sensor 00:00: the skin [place] (FREESTYLE 00 every 2 Medica l CHON 2 (two) Branch SENSOR) Kit weeks. semaglutide 2021-11 Yes [id number] .5mg inject 0.5 [facility] (OZEMPIC) 0-07 mg under ity of 0.25 mg or 00:00: the skin [place] 0.5 mg(2 00 weekly. Medical mg/1.5 mL) Branch PnIj flash 2021-11 Yes [id number] 1{each} inject 1 Un lesly glucose 0-07 Each under ity of sensor 00:00: the skin [place] (FREESTYLE 00 every 2 Medica l CHON 2 (two) Branch SENSOR) Kit weeks. semaglutide 2021-11 Yes [id number] .5mg inject 0.5 [facility] (OZEMPIC) 0-07 mg under ity of 0.25 mg or 00:00: the skin [place] 0.5 mg(2 00 weekly. Medical mg/1.5 mL) Branch [facility] 2021-11 Yes [id number] 1{each} inject 1 Un lesly glucose 0-07 Each under ity of sensor 00:00: the skin [place] (FREESTYLE 00 every 2 Medica l CHON 2 (two) Branch SENSOR) Kit weeks. semaglutide 2021-11 Yes [id number] .5mg inject 0.5 [facility] (OZEMPIC) 0-07 mg under ity of 0.25 mg or 00:00: the skin [place] 0.5 mg(2 00 weekly. Medical mg/1.5 mL) Branch [facility] 2021-11 Yes [id number] 1{each} inject 1 Un lesly glucose 0-07 Each under ity of sensor 00:00: the skin [place] (FREESTYLE 00 every 2 Medica l CHON 2 (two) Branch SENSOR) Kit weeks. semaglutide 2021-11 Yes [id number] .5mg inject 0.5 [facility] (OZEMPIC) 0-07 mg under ity of 0.25 mg or 00:00: the skin [place] 0.5 mg(2 00 weekly. Medical mg/1.5 mL) Branch [facility] 2021-11 Yes [id number] 1{each} inject 1 Un lesly glucose 0-07 Each under ity of sensor 00:00: the skin [place] (FREESTYLE 00 every 2 Medica l CHON 2 (two) Branch SENSOR) Kit weeks. semaglutide 2021-11 Yes [id number] .[id number] inject 0.5 [facility] (OZEMPIC) 0-07 mg under ity of 0.25 mg or 00:00: the skin [place] 0.5 mg(2 00 weekly. Medical mg/1.5 mL) Branch [facility] 2021-11 Yes [id number] 1{each} inject 1 Un lesly glucose 0-07 Each under ity of sensor 00:00: the skin [place] (FREESTYLE 00 every 2 Medica l CHON 2 (two) Branch SENSOR) Kit weeks. semaglutide 2021-11 Yes [id number] .5mg inject 0.5 [facility] (OZEMPIC) 0-07 mg under ity of 0.25 mg or 00:00: the skin [place] 0.5 mg(2 00 weekly. Medical mg/1.5 mL) Branch [facility] flash 2021-11 Yes [id number] 1{each} inject 1 Un lesly glucose 0-07 Each under ity of sensor 00:00: the skin [place] (FREESTYLE 00 every 2 Medica l CHON 2 (two) Branch SENSOR) Kit weeks. semaglutide 2021-11 Yes [id number] .[id number] inject 0.5 [facility] (OZEMPIC) 0-07 mg under ity of 0.25 mg or 00:00: the skin [place] 0.5 mg(2 00 weekly. Medical mg/1.5 mL) Branch [facility] flash 2021-11 Yes [id number] 1{each} inject 1 Un lesly glucose 0-07 Each under ity of sensor 00:00: the skin [place] (FREESTYLE 00 every 2 Medica l CHON 2 (two) Branch SENSOR) Kit weeks. semaglutide 2021-11 Yes [id number] .[id number] inject 0.5 [facility] (OZEMPIC) 0-07 mg under ity of 0.25 mg or 00:00: the skin [place] 0.5 mg(2 00 weekly. Medical mg/1.5 mL) Branch S[facility] busby 2021-11 Yes [id number] 1{each} inject 1 Un lesly glucose 0-07 Each under ity of sensor 00:00: the skin [place] (FREESTYLE 00 every 2 Medica l CHON 2 (two) Branch SENSOR) Kit weeks. semaglutide 2021-11 Yes [id number] .[id number] inject 0.5 [facility] (OZEMPIC) 0-07 mg under ity of 0.25 mg or 00:00: the skin [place] 0.5 mg(2 00 weekly. Medical mg/1.5 mL) Branch S[facility] busby 2021-11 Yes [id number] 1{each} inject 1 Un lesly glucose 0-07 Each under ity of sensor 00:00: the skin [place] (FREESTYLE 00 every 2 Medica l CHON 2 (two) Branch SENSOR) Kit weeks. semaglutide 2021-11 Yes [id number] .[id number] inject 0.5 [facility] (OZEMPIC) 0-07 mg under ity of 0.25 mg or 00:00: the skin [place] 0.5 mg(2 00 weekly. Medical mg/1.5 mL) Branch [facility] flash 2021-11 Yes [id number] 1{each} inject 1 Un lesly glucose 0-07 Each under ity of sensor 00:00: the skin [place] (FREESTYLE 00 every 2 Medica l CHON 2 (two) Branch SENSOR) Kit weeks. semaglutide 2021-11 Yes [id number] .[id number] inject 0.5 [facility] (OZEMPIC) 0-07 mg under ity of 0.25 mg or 00:00: the skin [place] 0.5 mg(2 00 weekly. Medical mg/1.5 mL) Branch Pn[facility] flash 2021-11 Yes [id number] 1{each} inject 1 Un lesly glucose 0-07 Each under ity of sensor 00:00: the skin [place] (FREESTYLE 00 every 2 Medica l CHON 2 (two) Branch SENSOR) Kit weeks. semaglutide 2021-11 Yes [id number] .[id number] inject 0.5 [facility] (OZEMPIC) 0-07 mg under ity of 0.25 mg or 00:00: the skin [place] 0.5 mg(2 00 weekly. Medical mg/1.5 mL) Branch [facility] flash 2021-11 Yes [id number] 1{each} inject 1 Un lesly glucose 0-07 Each under ity of sensor 00:00: the skin [place] (FREESTYLE 00 every 2 Medica l CHON 2 (two) Branch SENSOR) Kit weeks. semaglutide 2021-11 Yes [id number] .[id number] inject 0.5 [facility] (OZEMPIC) 0-07 mg under ity of 0.25 mg or 00:00: the skin [place] 0.5 mg(2 00 weekly. Medical mg/1.5 mL) Branch Pn[facility] flash 2021-11 Yes [id number] 1{each} inject 1 Un lesly glucose 0-07 Each under ity of sensor 00:00: the skin [place] (FREESTYLE 00 every 2 Medica l CHON 2 (two) Branch SENSOR) Kit weeks. semaglutide 2021-11 Yes [id number] .5mg inject 0.5 [facility] (OZEMPIC) 0-07 mg under ity of 0.25 mg or 00:00: the skin [place] 0.5 mg(2 00 weekly. Medical mg/1.5 mL) Branch Pn[facility] flash 2021-11 Yes [id number] 1{each} inject 1 Un lesly glucose 0-07 Each under ity of sensor 00:00: the skin [place] (FREESTYLE 00 every 2 Medica l CHON 2 (two) Branch SENSOR) Kit weeks. semaglutide 2021-11 Yes [id number] .[id number] inject 0.5 [facility] (OZEMPIC) 0-07 mg under ity of 0.25 mg or 00:00: the skin [place] 0.5 mg(2 00 weekly. Medical mg/1.5 mL) Branch Pn[facility] flash 2021-11 Yes [id number] 1{each} inject 1 Un lesly glucose 0-07 Each under ity of sensor 00:00: the skin [place] (FREESTYLE 00 every 2 Medica l CHON 2 (two) Branch SENSOR) Kit weeks. semaglutide 2021-11 Yes [id number] .[id number] inject 0.5 [facility] (OZEMPIC) 0-07 mg under ity of 0.25 mg or 00:00: the skin [place] 0.5 mg(2 00 weekly. Medical mg/1.5 mL) Branch [facility] flash 2021-11 Yes [id number] 1{each} inject 1 Un lesly glucose 0-07 Each under ity of sensor 00:00: the skin [place] (FREESTYLE 00 every 2 Medica l CHON 2 (two) Branch SENSOR) Kit weeks. semaglutide 2021-11 Yes [id number] .[id number] inject 0.5 [facility] (OZEMPIC) 0-07 mg under ity of 0.25 mg or 00:00: the skin [place] 0.5 mg(2 00 weekly. Medical mg/1.5 mL) Branch Pn flash 2021-11 Yes [id number] 1{each} inject 1 Un lesly glucose 0-07 Each under ity of sensor 00:00: the skin [place] (FREESTYLE 00 every 2 Medica l CHON 2 (two) Branch SENSOR) Kit weeks. semaglutide 2021-11 Yes [id number] .[id number] inject 0.5 [facility] (OZEMPIC) 0-07 mg under ity of 0.25 mg or 00:00: the skin [place] 0.5 mg(2 00 weekly. Medical mg/1.5 mL) Branch Pn flash 2021-11 Yes [id number] 1{each} inject 1 Un lesly glucose 0-07 Each under ity of sensor 00:00: the skin [place] (FREESTYLE 00 every 2 Medica l CHON 2 (two) Branch SENSOR) Kit weeks. semaglutide 2021-11 Yes [id number] .[id number] inject 0.5 [facility] (OZEMPIC) 0-07 mg under ity of 0.25 mg or 00:00: the skin [place] 0.5 mg(2 00 weekly. Medical mg/1.5 mL) Branch [facility] flash 2021-11 Yes [id number] 1{each} inject 1 Un lesly glucose 0-07 Each under ity of sensor 00:00: the skin [place] (FREESTYLE 00 every 2 Medica l CHON 2 (two) Branch SENSOR) Kit weeks. semaglutide 2021-11 Yes [id number] .[id number] inject 0.5 [facility] (OZEMPIC) 0-07 mg under ity of 0.25 mg or 00:00: the skin [place] 0.5 mg(2 00 weekly. Medical mg/1.5 mL) Branch [facility] 2021-11 Yes [id number] 1{each} inject 1 Un lesly glucose 0-07 Each under ity of sensor 00:00: the skin [place] (FREESTYLE 00 every 2 Medica l CHON 2 (two) Branch SENSOR) Kit weeks. semaglutide 2021-11 Yes [id number] .[id number] inject 0.5 [facility] (OZEMPIC) 0-07 mg under ity of 0.25 mg or 00:00: the skin [place] 0.5 mg(2 00 weekly. Medical mg/1.5 mL) Branch [facility] 2021-11 Yes [id number] 1{each} inject 1 Un lesly glucose 0-07 Each under ity of sensor 00:00: the skin [place] (FREESTYLE 00 every 2 Medica l CHON 2 (two) Branch SENSOR) Kit weeks. semaglutide 2021-11 Yes [id number] .[id number] inject 0.5 [facility] (OZEMPIC) 0-07 mg under ity of 0.25 mg or 00:00: the skin [place] 0.5 mg(2 00 weekly. Medical mg/1.5 mL) Branch Pn[facility] flash 2021-11 Yes [id number] 1{each} inject 1 Un lesly glucose 0-07 Each under ity of sensor 00:00: the skin [place] (FREESTYLE 00 every 2 Medica l CHON 2 (two) Branch SENSOR) Kit weeks. semaglutide 2021-11 Yes [id number] .[id number] inject 0.5 [facility] (OZEMPIC) 0-07 mg under ity of 0.25 mg or 00:00: the skin [place] 0.5 mg(2 00 weekly. Medical mg/1.5 mL) Branch PnIj semaglutide 2021-11 Yes [id number] .[id number] inject 0.5 [facility] (OZEMPIC) 0-07 mg under ity of 0.25 mg or 00:00: the skin [place] 0.5 mg(2 00 weekly. Medical mg/1.5 mL) Branch Pn[facility]j semaglutide 2021-11 Yes [id number] .[id number] inject 0.5 [facility] (OZEMPIC) 0-07 mg under ity of 0.25 mg or 00:00: the skin [place] 0.5 mg(2 00 weekly. Medical mg/1.5 mL) Branch Pn[facility]j semaglutide 2021-11 Yes [id number] .[id number] inject 0.5 [facility] (OZEMPIC) 0-07 mg under ity of 0.25 mg or 00:00: the skin [place] 0.5 mg(2 00 weekly. Medical mg/1.5 mL) Branch Pn[facility] semaglutide 2021-11 Yes [id number] .[id number] inject 0.5 [facility] (OZEMPIC) 0-07 mg under ity of 0.25 mg or 00:00: the skin [place] 0.5 mg(2 00 weekly. Medical mg/1.5 mL) Branch Pn[facility] semaglutide 2021-11 Yes [id number] .[id number] inject 0.5 [facility] (OZEMPIC) 0-07 mg under ity of 0.25 mg or 00:00: the skin [place] 0.5 mg(2 00 weekly. Medical mg/1.5 mL) Branch Pn[facility] semaglutide 2021-11 Yes [id number] .[id number] inject 0.5 [facility] (OZEMPIC) 0-07 mg under ity of 0.25 mg or 00:00: the skin [place] 0.5 mg(2 00 weekly. Medical mg/1.5 mL) Branch Pn[facility] semaglutide 2021-11 Yes [id number] .[id number] inject 0.5 [facility] (OZEMPIC) 0-07 mg under ity of 0.25 mg or 00:00: the skin [place] 0.5 mg(2 00 weekly. Medical mg/1.5 mL) Branch Pn[facility] semaglutide 2021-11 Yes [id number] .[id number] inject 0.5 [facility] (OZEMPIC) 0-07 mg under ity of 0.25 mg or 00:00: the skin [place] 0.5 mg(2 00 weekly. Medical mg/1.5 mL) Branch Pn[facility]j semaglutide 2021-11 Yes [id number] .[id number] inject 0.5 [facility] (OZEMPIC) 0-07 mg under ity of 0.25 mg or 00:00: the skin [place] 0.5 mg(2 00 weekly. Medical mg/1.5 mL) Branch Pn[facility]j semaglutide 2021-11 Yes [id number] .[id number] inject 0.5 [facility] (OZEMPIC) 0-07 mg under ity of 0.25 mg or 00:00: the skin [place] 0.5 mg(2 00 weekly. Medical mg/1.5 mL) Branch Pn[facility]j semaglutide 2021-11 Yes [id number] .[id number] inject 0.5 [facility] (OZEMPIC) 0-07 mg under ity of 0.25 mg or 00:00: the skin [place] 0.5 mg(2 00 weekly. Medical mg/1.5 mL) Branch Pn[facility]j semaglutide 2021-11 Yes [id number] .[id number] inject 0.5 [facility] (OZEMPIC) 0-07 mg under ity of 0.25 mg or 00:00: the skin [place] 0.5 mg(2 00 weekly. Medical mg/1.5 mL) Branch Pn[facility]j semaglutide 2021-11 Yes [id number] .[id number] inject 0.5 [facility] (OZEMPIC) 0-07 mg under ity of 0.25 mg or 00:00: the skin [place] 0.5 mg(2 00 weekly. Medical mg/1.5 mL) Branch Pn[facility]j semaglutide 2021-11 Yes [id number] .[id number] inject 0.5 [facility] (OZEMPIC) 0-07 mg under ity of 0.25 mg or 00:00: the skin [place] 0.5 mg(2 00 weekly. Medical mg/1.5 mL) Branch PnIj semaglutide 2021-11 Yes [id number] .[id number] inject 0.5 [facility] (OZEMPIC) 0-07 mg under ity of 0.25 mg or 00:00: the skin [place] 0.5 mg(2 00 weekly. Medical mg/1.5 mL) Branch Pn[facility]j semaglutide 2021-11 Yes [id number] .[id number] inject 0.5 [facility] (OZEMPIC) 0-07 mg under ity of 0.25 mg or 00:00: the skin [place] 0.5 mg(2 00 weekly. Medical mg/1.5 mL) Branch Pn[facility]j semaglutide 2021-11 Yes [id number] .[id number] inject 0.5 [facility] (OZEMPIC) 0-07 mg under ity of 0.25 mg or 00:00: the skin [place] 0.5 mg(2 00 weekly. Medical mg/1.5 mL) Branch Pn[facility]j semaglutide 2021-11 Yes [id number] .[id number] inject 0.5 [facility] (OZEMPIC) 0-07 mg under ity of 0.25 mg or 00:00: the skin [place] 0.5 mg(2 00 weekly. Medical mg/1.5 mL) Branch Pn[facility]j semaglutide 2021-11 Yes [id number] .[id number] inject 0.5 [facility] (OZEMPIC) 0-07 mg under ity of 0.25 mg or 00:00: the skin [place] 0.5 mg(2 00 weekly. Medical mg/1.5 mL) Branch Pn[facility]j semaglutide 2021-11 Yes [id number] .[id number] inject 0.5 [facility] (OZEMPIC) 0-07 mg under ity of 0.25 mg or 00:00: the skin [place] 0.5 mg(2 00 weekly. Medical mg/1.5 mL) Branch Pn[facility]j semaglutide 2021-11 Yes [id number] .[id number] inject 0.5 [facility] (OZEMPIC) 0-07 mg under ity of 0.25 mg or 00:00: the skin [place] 0.5 mg(2 00 weekly. Medical mg/1.5 mL) Branch PnIj semaglutide 2021-11 Yes [id number] .[id number] inject 0.5 [facility] (OZEMPIC) 0-07 mg under ity of 0.25 mg or 00:00: the skin [place] 0.5 mg(2 00 weekly. Medical mg/1.5 mL) Branch Pn[facility]j semaglutide 2021-11 Yes [id number] .5mg inject 0.5 [facility] (OZEMPIC) 0-07 mg under ity of 0.25 mg or 00:00: the skin [place] 0.5 mg(2 00 weekly. Medical mg/1.5 mL) Branch PnIj semaglutide 2021-11 Yes [id number] .[id number] inject 0.5 [facility] (OZEMPIC) 0-07 mg under ity of 0.25 mg or 00:00: the skin [place] 0.5 mg(2 00 weekly. Medical mg/1.5 mL) Branch PnIj semaglutide 2021-11 Yes [id number] .[id number] inject 0.5 [facility] (OZEMPIC) 0-07 mg under ity of 0.25 mg or 00:00: the skin [place] 0.5 mg(2 00 weekly. Medical mg/1.5 mL) Branch PnIj semaglutide 2021-11 Yes [id number] .[id number] inject 0.5 [facility] (OZEMPIC) 0-07 mg under ity of 0.25 mg or 00:00: the skin [place] 0.5 mg(2 00 weekly. Medical mg/1.5 mL) Branch PnIj semaglutide 2021-11 Yes [id number] .[id number] inject 0.5 [facility] (OZEMPIC) 0-07 mg under ity of 0.25 mg or 00:00: the skin [place] 0.5 mg(2 00 weekly. Medical mg/1.5 mL) Branch PnIj semaglutide 2021-11 Yes [id number] .[id number] inject 0.5 [facility] (OZEMPIC) 0-07 mg under ity of 0.25 mg or 00:00: the skin [place] 0.5 mg(2 00 weekly. Medical mg/1.5 mL) Branch Pn[facility]j semaglutide 2021-11 Yes [id number] .[id number] inject 0.5 [facility] (OZEMPIC) 0-07 mg under ity of 0.25 mg or 00:00: the skin [place] 0.5 mg(2 00 weekly. Medical mg/1.5 mL) Branch Pn[facility]j semaglutide 2021-11 Yes [id number] .[id number] inject 0.5 [facility] (OZEMPIC) 0-07 mg under ity of 0.25 mg or 00:00: the skin [place] 0.5 mg(2 00 weekly. Medical mg/1.5 mL) Branch Pn[facility]j semaglutide 2021-11 Yes [id number] .[id number] inject 0.5 [facility] (OZEMPIC) 0-07 mg under ity of 0.25 mg or 00:00: the skin [place] 0.5 mg(2 00 weekly. Medical mg/1.5 mL) Branch PnIj semaglutide 2021-11 Yes [id number] .[id number] inject 0.5 [facility] (OZEMPIC) 0-07 mg under ity of 0.25 mg or 00:00: the skin [place] 0.5 mg(2 00 weekly. Medical mg/1.5 mL) Branch Pn[facility]j semaglutide 2021-11 Yes [id number] .[id number] inject 0.5 [facility] (OZEMPIC) 0-07 mg under ity of 0.25 mg or 00:00: the skin [place] 0.5 mg(2 00 weekly. Medical mg/1.5 mL) Branch Pn[facility]j semaglutide 2021-11 Yes [id number] .5mg inject 0.5 [facility] (OZEMPIC) 0-07 mg under ity of 0.25 mg or 00:00: the skin [place] 0.5 mg(2 00 weekly. Medical mg/1.5 mL) Branch PnIj semaglutide 2021-11 Yes [id number] .[id number] inject 0.5 [facility] (OZEMPIC) 0-07 mg under ity of 0.25 mg or 00:00: the skin [place] 0.5 mg(2 00 weekly. Medical mg/1.5 mL) Branch PnIj semaglutide 2021-11 Yes [id number] .[id number] inject 0.5 [facility] (OZEMPIC) 0-07 mg under ity of 0.25 mg or 00:00: the skin [place] 0.5 mg(2 00 weekly. Medical mg/1.5 mL) Branch PnIj semaglutide 2021-11 Yes [id number] .[id number] inject 0.5 [facility] (OZEMPIC) 0-07 mg under ity of 0.25 mg or 00:00: the skin [place] 0.5 mg(2 00 weekly. Medical mg/1.5 mL) Branch [facility] lindglutide 2021-11 Yes [id number] .[id number] inject 0.5 [facility] (OZEMPIC) 0-07 mg under ity of 0.25 mg or 00:00: the skin [place] 0.5 mg(2 00 weekly. Medical mg/1.5 mL) Branch [facility] lindglutide 2021-11 Yes [id number] .[id number] inject 0.5 [facility] (OZEMPIC) 0-07 mg under ity of 0.25 mg or 00:00: the skin [place] 0.5 mg(2 00 weekly. Medical mg/1.5 mL) Branch [facility] lindglutide 2021-11 Yes [id number] .[id number] inject 0.5 [facility] (OZEMPIC) 0-07 mg under ity of 0.25 mg or 00:00: the skin [place] 0.5 mg(2 00 weekly. Medical mg/1.5 mL) Branch [facility] lindglutide 2021-11 Yes [id number] .5mg inject 0.5 [facility] (OZEMPIC) 0-07 mg under ity of 0.25 mg or 00:00: the skin [place] 0.5 mg(2 00 weekly. Medical mg/1.5 mL) Branch [facility] lindglutide 2021-11- No [id number] .[id number] inject 0.5 [facility] (OZEMPIC) 0-07 12-23 mg under ity o f 0.25 mg or 00:00: 00:00 the skin [place] 0.5 mg(2 00 :00 weekly. Medical mg/1.5 mL) Branch [facility] lindglutide 2021-11- No [id number] .[id number] inject 0.5 [facility] (OZEMPIC) 0-07 12-23 mg under ity o f 0.25 mg or 00:00: 00:00 the skin [place] 0.5 mg(2 00 :00 weekly. Medical mg/1.5 mL) Branch [facility] lindglutide 2021-11- No [id number] .[id number] inject 0.5 [facility] (OZEMPIC) 0-07 12-23 mg under ity o f 0.25 mg or 00:00: 00:00 the skin [place] 0.5 mg(2 00 :00 weekly. Medical mg/1.5 mL) Branch [facility] semaglutide 2021-11- No [id number] .[id number] inject 0.5 [facility] (OZEMPIC) 0-07 12-23 mg under ity o f 0.25 mg or 00:00: 00:00 the skin [place] 0.5 mg(2 00 :00 weekly. Medical mg/1.5 mL) Branch [facility] semaglutide 2021-11- No [id number] .[id number] inject 0.5 [facility] (OZEMPIC) 0-07 12-23 mg under ity o f 0.25 mg or 00:00: 00:00 the skin [place] 0.5 mg(2 00 :00 weekly. Medical mg/1.5 mL) [facility] semaglutide 2021-11- No [id number] .5mg inject 0.5 [facility] (OZEMPIC) 0-07 12-23 mg under ity o f 0.25 mg or 00:00: 00:00 the skin [place] 0.5 mg(2 00 :00 weekly. Medical mg/1.5 mL) [facility] semaglutide 2021-11- No [id number] .[id number] inject 0.5 [facility] (OZEMPIC) 0-07 12-23 mg under ity o f 0.25 mg or 00:00: 00:00 the skin [place] 0.5 mg(2 00 :00 weekly. Medical mg/1.5 mL) [facility] flash 2021-11- No [id number] 1{each} inject 1 U nivers glucose 0-07 10-26 Each under ity o f sensor 00:00: 00:00 the skin [place] (FREESTYLE 00 :00 every 2 Medica l CHON 2 (two) Branch SENSOR) Kit weeks. flash 2021-11- No [id number] 1{each} inject 1 U nivers glucose 0-07 10-26 Each under ity o f sensor 00:00: 00:00 the skin [place] (FREESTYLE 00 :00 every 2 Medica l CHON 2 (two) Branch SENSOR) Kit weeks. aspirin 81 2021-11 Yes [id number] 81mg Take 1 [facility] mg chewable 0-06 tablet by ity of tablet 00:00: mouth in [place] 00 the Medical morning. Branch aspirin 81 2021-11 Yes [id number] 81mg Take 1 [facility] mg chewable 0-06 tablet by ity of tablet 00:00: mouth in [place] 00 the Medical morning. Branch aspirin 81 2021-11 Yes [id number] 81mg Take 1 [facility] mg chewable 0-06 tablet by ity of tablet 00:00: mouth in [place] 00 the Medical morning. Branch aspirin 81 2021-11 Yes [id number] 81mg Take 1 [facility] mg chewable 0-06 tablet by ity of tablet 00:00: mouth in [place] 00 the Medical morning. Branch aspirin 81 2021-11 Yes [id number] 81mg Take 1 [facility] mg chewable 0-06 tablet by ity of tablet 00:00: mouth in [place] 00 the Medical morning. Branch aspirin 81 2021-11 Yes [id number] 81mg Take 1 [facility] mg chewable 0-06 tablet by ity of tablet 00:00: mouth in [place] the Medical morning. Branch aspirin 81 2021-11 Yes [id number] 81mg Take 1 [facility] mg chewable 0-06 tablet by ity of tablet 00:00: mouth in [place] the Medical morning. Branch aspirin 81 2021-11 Yes [id number] 81mg Take 1 [facility] mg chewable 0-06 tablet by ity of tablet 00:00: mouth in [place] the Medical morning. Branch aspirin 81 2021-11 Yes [id number] 81mg Take 1 [facility] mg chewable 0-06 tablet by ity of tablet 00:00: mouth in [place] 00 the Medical morning. Branch aspirin 81 2021-11 Yes [id number] 81mg Take 1 [facility] mg chewable 0-06 tablet by ity of tablet 00:00: mouth in [place] 00 the Medical morning. Branch aspirin 81 2021-11 Yes [id number] 81mg Take 1 [facility] mg chewable 0-06 tablet by ity of tablet 00:00: mouth in [place] 00 the Medical morning. Branch aspirin 81 2021-11 Yes [id number] 81mg Take 1 [facility] mg chewable 0-06 tablet by ity of tablet 00:00: mouth in [place] 00 the Medical morning. Branch aspirin 81 2021-11 Yes [id number] 81mg Take 1 [facility] mg chewable 0-06 tablet by ity of tablet 00:00: mouth in [place] 00 the Medical morning. Branch aspirin 81 2021-11 Yes [id number] 81mg Take 1 [facility] mg chewable 0-06 tablet by ity of tablet 00:00: mouth in [place] 00 the Medical morning. Branch aspirin 81 2021-11 Yes [id number] 81mg Take 1 [facility] mg chewable 0-06 tablet by ity of tablet 00:00: mouth in [place] the Medical morning. Branch aspirin 81 2021-11 Yes [id number] 81mg Take 1 [facility] mg chewable 0-06 tablet by ity of tablet 00:00: mouth in [place] 00 the Medical morning. Branch aspirin 81 2021-11 Yes [id number] 81mg Take 1 [facility] mg chewable 0-06 tablet by ity of tablet 00:00: mouth in [place] 00 the Medical morning. Branch aspirin 81 2021-11 Yes [id number] 81mg Take 1 [facility] mg chewable 0-06 tablet by ity of tablet 00:00: mouth in [place] the Medical morning. Branch aspirin 81 2021-11 Yes [id number] 81mg Take 1 [facility] mg chewable 0-06 tablet by ity of tablet 00:00: mouth in [place] the Medical morning. Branch aspirin 81 2021-11 Yes [id number] 81mg Take 1 [facility] mg chewable 0-06 tablet by ity of tablet 00:00: mouth in [place] the Medical morning. Branch aspirin 81 2021-11 Yes [id number] 81mg Take 1 [facility] mg chewable 0-06 tablet by ity of tablet 00:00: mouth in [place] the Medical morning. Branch aspirin 81 2021-11 Yes [id number] 81mg Take 1 [facility] mg chewable 0-06 tablet by ity of tablet 00:00: mouth in [place] the Medical morning. Branch aspirin 81 2021-11 Yes [id number] 81mg Take 1 [facility] mg chewable 0-06 tablet by ity of tablet 00:00: mouth in [place] 00 the Medical morning. Branch aspirin 81 2021-11 Yes [id number] 81mg Take 1 [facility] mg chewable 0-06 tablet by ity of tablet 00:00: mouth in [place] 00 the Medical morning. Branch aspirin 81 2021-11 Yes [id number] 81mg Take 1 [facility] mg chewable 0-06 tablet by ity of tablet 00:00: mouth in [place] 00 the Medical morning. Branch aspirin 81 2021-11 Yes [id number] 81mg Take 1 [facility] mg chewable 0-06 tablet by ity of tablet 00:00: mouth in [place] 00 the Medical morning. Branch aspirin 81 2021-11 Yes [id number] 81mg Take 1 [facility] mg chewable 0-06 tablet by ity of tablet 00:00: mouth in [place] 00 the Medical morning. Branch aspirin 81 2021-11 Yes [id number] 81mg Take 1 [facility] mg chewable 0-06 tablet by ity of tablet 00:00: mouth in [place] 00 the Medical morning. Branch aspirin 81 2021-11 Yes [id number] 81mg Take 1 [facility] mg chewable 0-06 tablet by ity of tablet 00:00: mouth in [place] 00 the Medical morning. Branch aspirin 81 2021-11 Yes [id number] 81mg Take 1 [facility] mg chewable 0-06 tablet by ity of tablet 00:00: mouth in [place] 00 the Medical morning. Branch aspirin 81 2021-11 Yes [id number] 81mg Take 1 [facility] mg chewable 0-06 tablet by ity of tablet 00:00: mouth in [place] 00 the Medical morning. Branch aspirin 81 2021-11 Yes [id number] 81mg Take 1 [facility] mg chewable 0-06 tablet by ity of tablet 00:00: mouth in [place] 00 the Medical morning. Branch aspirin 81 2021-11 Yes [id number] 81mg Take 1 [facility] mg chewable 0-06 tablet by ity of tablet 00:00: mouth in [place] 00 the Medical morning. Branch aspirin 81 2021-11 Yes [id number] 81mg Take 1 [facility] mg chewable 0-06 tablet by ity of tablet 00:00: mouth in [place] 00 the Medical morning. Branch aspirin 81 2021-11 Yes [id number] 81mg Take 1 [facility] mg chewable 0-06 tablet by ity of tablet 00:00: mouth in [place] 00 the Medical morning. Branch aspirin 81 2021-11 Yes [id number] 81mg Take 1 [facility] mg chewable 0-06 tablet by ity of tablet 00:00: mouth in [place] 00 the Medical morning. Branch aspirin 81 2021-11 Yes [id number] 81mg Take 1 [facility] mg chewable 0-06 tablet by ity of tablet 00:00: mouth in [place] 00 the Medical morning. Branch aspirin 81 2021-11 Yes [id number] 81mg Take 1 [facility] mg chewable 0-06 tablet by ity of tablet 00:00: mouth in [place] 00 the Medical morning. Branch clopidogreL 2021-11- No 75mg Take 1 [facility] vers 75 mg 0-06 02-16 tablet by ity of tablet 00:00: 05:59 mouth in [place] 00 :00 the [facility] for 132 days. clopidogreL 2021-2022- No 75mg Take 1 [facility] vers 75 mg 0-06 02-16 tablet by ity of tablet 00:00: 05:59 mouth in [place] 00 :00 the [facility] for 132 days. clopidogreL 2021-2022- No 75mg Take 1 [facility] vers 75 mg 0-06 02-16 tablet by ity of tablet 00:00: 05:59 mouth in [place] 00 :00 the [facility] for 132 days. clopidogreL 2021-11- No 75mg Take 1 [facility] vers 75 mg 0-06 02-16 tablet by ity of tablet 00:00: 05:59 mouth in [place] 00 :00 the [facility] for 132 days. clopidogreL 2021-11- No 75mg Take 1 [facility] vers 75 mg 0-06 02-16 tablet by ity of tablet 00:00: 05:59 mouth in [place] 00 :00 the [facility] for 132 days. clopidogreL 2021-11- No 75mg Take 1 [facility] vers 75 mg 0-06 02-16 tablet by ity of tablet 00:00: 05:59 mouth in [place] 00 :00 the [facility] for 132 days. clopidogreL 2021-2022- No 75mg Take 1 [facility] vers 75 mg 0-06 02-16 tablet by ity of tablet 00:00: 05:59 mouth in [place] 00 :00 the [facility] for 132 days. clopidogreL 2021-2022- No 75mg Take 1 [facility] vers 75 mg 0-06 02-16 tablet by ity of tablet 00:00: 05:59 mouth in [place] 00 :00 the [facility] for 132 days. clopidogreL 2021-2022- No 75mg Take 1 [facility] vers 75 mg 0-06 02-16 tablet by ity of tablet 00:00: 05:59 mouth in [place] 00 :00 the [facility] for 132 days. clopidogreL 2021-2022- No 75mg [...] 05:59 mouth in [place] 00 :00 the [facility] morning Branch for 132 days. clopidogreL 2021-3- [...] 05:59 mouth in [place] 00 :00 the [facility] morning Branch for 132 days. clopidogreL 2021- [...] 05:59 mouth in [place] 00 :00 the [facility] morning Branch for 132 days. clopidogreL 2021-3- [...] 05:59 mouth in [place] 00 :00 the [facility] morning Branch for 132 days. clopidogreL 2021- [...] 05:59 mouth in [place] 00 :00 the [facility] morning Branch for 132 days. clopidogreL 2021-3- [...] 05:59 mouth in [place] 00 :00 the [facility] morning Branch for 132 days. clopidogreL 2021- [...] morning Branch for 132 days. clopidogreL 2021-1 2022- No 75mg Take 1 [facility] vers 75 mg 0-06 11-07 tablet by ity of tablet 00:00: 00:00 mouth in [place] 00 :00 the Medical morning Branch for 132 days. clopidogreL 2021-1 2022- No 75mg Take 1 [facility] vers 75 mg 0-06 11-07 tablet by ity of tablet 00:00: 00:00 mouth in [place] 00 :00 the Medical morning Branch for 132 days. clopidogreL 2021- 2022- No 75mg Take 1 [facility] vers 75 mg 0-06 11-07 tablet by ity of tablet 00:00: 00:00 mouth in [place] 00 :00 the Medical morning Branch for 132 days. aspirin 81 2021-11- No [id number] 81mg Take 1 [facility] mg chewable 0-06 10-31 tablet by it y of tablet 00:00: 00:00 mouth in [place] 00 :00 the Medical morning. Branch aspirin 81 2021-11- No [id number] 81mg Take 1 [facility] mg chewable 0-06 10-31 tablet by it y of tablet 00:00: 00:00 mouth in [place] 00 :00 the Medical morning. Branch aspirin 81 2021-11- No [id number] 81mg Take 1 [facility] mg chewable 0-06 10-31 tablet by it y of tablet 00:00: 00:00 mouth in [place] 00 :00 [facility] Yes [id number] USE 1 [facility] ers CHON 2 0-05 SENSOR ity of SENSOR Kit 00:00: CHANGE [place] 00 EVERY 2 Medical WEEKS Branch FREEYLE 2021-11 Yes [id number] USE 1 Univ ers CHON 2 0-05 SENSOR ity of SENSOR Kit 00:00: CHANGE [place] 00 EVERY 2 Medical WEEKS Branch FREESTYLE 2021-11 Yes [id number] USE 1 Univ ers CHON 2 0-05 SENSOR ity of SENSOR Kit 00:00: CHANGE [place] 00 EVERY 2 Medical WEEKS Branch FREESTYLE 2021-11- No [id number] USE 1 Uni vers HCON 2 0-05 10-07 SENSOR ity of SENSOR Kit 00:00: [place] 00 :[place] EVERY 2 Medical WEEKS Branch FREESTYLE 2021-11- No [id number] USE 1 Uni vers CHON 2 0-05 10-07 SENSOR ity of SENSOR Kit 00:00: [place] 00 :[place] EVERY 2 Medical WEEKS Branch FREESTYLE 2021-11- No [id number] USE 1 Uni vers CHON 2 0-05 10-07 SENSOR ity of SENSOR Kit 00:00: [place] 00 :00 EVERY 2 Medical WEEKS Branch insulin 2021-11- No 6U 6 Units, Unive rs regular 0-03 10-03 Slow IV ity of human 02:30: 01:51 Sailaja Marcus (HUMULIN R) 00 :00 ONCE, 1 Medic [...] dose, On 08/24/22 at 2015, STAT budesonide 0 Yes [facility] 0.5 mg/2 mL 9-28 ity of nebulizer 00:00: [place] solution Medical Branch budesonide 0 Yes [facility] 0.5 mg/2 mL 9-28 ity [...] 00:00: [place] solution Medical Branch budesonide 2021-0 2021- No Univer s 0.5 mg/2 mL 9-28 [...] [place] solution 00 :00 Medical Branch flash 2022-0 Yes [id number] 1U 1 Units [facility] s glucose 9-26 SEE-INSTRU ity of scanning 00:00: CTIONS. [place] reader 00 Use per Medical (FREESTYLE device Branch CHON 2 instructio READER) ns Misc flash 2022-0 Yes [id number] 1U 1 Units [facility] glucose 9-26 SEE-INSTRU ity of scanning 00:00: CTIONS. [place] reader 00 Use per Medical (FREESTYLE device Branch CHON 2 instructio READER) ns Misc flash 2021-0 Yes [id number] 1U 1 Units [facility] glucose 9-26 SEE-INSTRU ity of scanning 00:00: CTIONS. [place] reader 00 Use per Medical (FREESTYLE device Branch CHON 2 instructio READER) ns Misc flash 2021-0 Yes [id number] 1U 1 Units [facility] glucose 9-26 SEE-INSTRU ity of scanning 00:00: CTIONS. [place] reader 00 Use per Medical (FREESTYLE device Branch CHON 2 instructio READER) ns Misc flash 2021-0 Yes [id number] 1U 1 Units [facility] glucose 9-26 SEE-INSTRU ity of scanning 00:00: CTIONS. [place] reader 00 Use per Medical (FREESTYLE device Branch CHON 2 instructio READER) ns Misc flash 2021-0 Yes [id number] 1U 1 Units [facility] glucose 9-26 SEE-INSTRU ity of scanning 00:00: CTIONS. [place] reader 00 Use per Medical (FREESTYLE device Branch CHON 2 instructio READER) ns Misc flash 2021-0 Yes [id number] 1U 1 Units [facility] glucose 9-26 SEE-INSTRU ity of scanning 00:00: CTIONS. [place] reader 00 Use per Medical (FREESTYLE device Branch CHON 2 instructio READER) ns Misc flash 2021-0 Yes [id number] 1U 1 Units [facility] glucose 9-26 SEE-INSTRU ity of scanning 00:00: CTIONS. [place] reader 00 Use per Medical (FREESTYLE device Branch CHON 2 instructio READER) ns Misc flash 2021-0 Yes [id number] 1U 1 Units [facility] glucose 9-26 SEE-INSTRU ity of scanning 00:00: CTIONS. [place] reader 00 Use per Medical (FREESTYLE device Branch CHON 2 instructio READER) ns Misc flash 2021-0 Yes [id number] 1U 1 Units [facility] glucose 9-26 SEE-INSTRU ity of scanning 00:00: CTIONS. [place] reader 00 Use per Medical (FREESTYLE device Branch CHON 2 instructio READER) ns Misc flash 2021-0 Yes [id number] 1U 1 Units Un[facility] glucose 9-26 SEE-INSTRU ity of scanning 00:00: CTIONS. [place] reader 00 Use per Medical (FREESTYLE device Branch CHON 2 instructio READER) ns Misc flash 2021-0 Yes [id number] 1U 1 Units [facility] glucose 9-26 SEE-INSTRU ity of scanning 00:00: CTIONS. [place] reader 00 Use per Medical (FREESTYLE device Branch CHON 2 instructio READER) ns Misc flash 2021-0 Yes [id number] 1U 1 Units Un[facility] glucose 9-26 SEE-INSTRU ity of scanning 00:00: CTIONS. [place] reader 00 Use per Medical (FREESTYLE device Branch CHON 2 instructio READER) ns Misc flash 2021-0 Yes [id number] 1U 1 Units [facility] glucose 9-26 SEE-INSTRU ity of scanning 00:00: CTIONS. [place] reader 00 Use per Medical (FREESTYLE device Branch CHON 2 instructio READER) ns Misc flash 2021-0 Yes [id number] 1U 1 Units [facility] glucose 9-26 SEE-INSTRU ity of scanning 00:00: CTIONS. [place] reader 00 Use per Medical (FREESTYLE device Branch CHON 2 instructio READER) ns Misc flash 2021-0 Yes [id number] 1U 1 Units [facility] glucose 9-26 SEE-INSTRU ity of scanning 00:00: CTIONS. [place] reader 00 Use per Medical (FREESTYLE device Branch CHON 2 instructio READER) ns Misc flash 2021-0 Yes [id number] 1U 1 Units [facility] glucose 9-26 SEE-INSTRU ity of scanning 00:00: CTIONS. [place] reader 00 Use per Medical (FREESTYLE device Branch CHON 2 instructio READER) ns Misc flash 2021-0 Yes [id number] 1U 1 Units [facility] glucose 9-26 SEE-INSTRU ity of scanning 00:00: CTIONS. [place] reader 00 Use per Medical (FREESTYLE device Branch CHON 2 instructio READER) ns Misc flash 2021-0 Yes [id number] 1U 1 Units [facility] glucose 9-26 SEE-INSTRU ity of scanning 00:00: CTIONS. [place] reader 00 Use per Medical (FREESTYLE device Branch CHON 2 instructio READER) ns Misc flash 2021-0 Yes [id number] 1U 1 Units [facility] glucose 9-26 SEE-INSTRU ity of scanning 00:00: CTIONS. [place] reader 00 Use per Medical (FREESTYLE device Branch CHON 2 instructio READER) ns Misc flash 2021-0 Yes [id number] 1U 1 Units [facility] glucose 9-26 SEE-INSTRU ity of scanning 00:00: CTIONS. [place] reader 00 Use per Medical (FREESTYLE device Branch CHON 2 instructio READER) ns Misc flash 2021-0 Yes [id number] 1U 1 Units [facility] glucose 9-26 SEE-INSTRU ity of scanning 00:00: CTIONS. [place] reader 00 Use per Medical (FREESTYLE device Branch CHON 2 instructio READER) ns Misc flash 2021-0 Yes [id number] 1U 1 Units [facility] glucose 9-26 SEE-INSTRU ity of scanning 00:00: CTIONS. [place] reader 00 Use per Medical (FREESTYLE device Branch CHON 2 instructio READER) ns Misc flash 2021-0 Yes [id number] 1U 1 Units [facility] s glucose 9-26 SEE-INSTRU ity of scanning 00:00: CTIONS. [place] reader 00 Use per Medical (FREESTYLE device Branch CHON 2 instructio READER) ns Misc flash 2021-0 Yes [id number] 1U 1 Units [facility] glucose 9-26 SEE-INSTRU ity of scanning 00:00: CTIONS. [place] reader 00 Use per Medical (FREESTYLE device Branch CHON 2 instructio READER) ns Misc flash 2021-0 Yes [id number] 1U 1 Units [facility] s glucose 9-26 SEE-INSTRU ity of scanning 00:00: CTIONS. [place] reader 00 Use per Medical (FREESTYLE device Branch CHON 2 instructio READER) ns Misc flash 2021-0 Yes [id number] 1U 1 Units [facility] glucose 9-26 SEE-INSTRU ity of scanning 00:00: CTIONS. [place] reader 00 Use per Medical (FREESTYLE device Branch CHON 2 instructio READER) ns Misc flash 2021-0 Yes [id number] 1U 1 Units [facility] glucose 9-26 SEE-INSTRU ity of scanning 00:00: CTIONS. [place] reader 00 Use per Medical (FREESTYLE device Branch CHON 2 instructio READER) ns Misc flash 2021-0 Yes [id number] 1U 1 Units [facility] glucose 9-26 SEE-INSTRU ity of scanning 00:00: CTIONS. [place] reader 00 Use per Medical (FREESTYLE device Branch CHON 2 instructio READER) ns Misc flash 2021-0 Yes [id number] 1U 1 Units [facility] glucose 9-26 SEE-INSTRU ity of scanning 00:00: CTIONS. [place] reader 00 Use per Medical (FREESTYLE device Branch CHON 2 instructio READER) ns Misc flash 2021-0 Yes [id number] 1U 1 Units [facility] glucose 9-26 SEE-INSTRU ity of scanning 00:00: CTIONS. [place] reader 00 Use per Medical (FREESTYLE device Branch CHON 2 instructio READER) ns Misc flash 2021-0 Yes [id number] 1U 1 Units [facility] glucose 9-26 SEE-INSTRU ity of scanning 00:00: CTIONS. [place] reader 00 Use per Medical (FREESTYLE device Branch CHON 2 instructio READER) ns Misc flash 2021-0 Yes [id number] 1U 1 Units [facility] glucose 9-26 SEE-INSTRU ity of scanning 00:00: CTIONS. [place] reader 00 Use per Medical (FREESTYLE device Branch CHON 2 instructio READER) ns Misc flash 2021-0 Yes [id number] 1U 1 Units [facility] glucose 9-26 SEE-INSTRU ity of scanning 00:00: CTIONS. [place] reader 00 Use per Medical (FREESTYLE device Branch CHON 2 instructio READER) ns Misc flash 2021-0 Yes [id number] 1U 1 Units [facility] glucose 9-26 SEE-INSTRU ity of scanning 00:00: CTIONS. [place] reader 00 Use per Medical (FREESTYLE device Branch CHON 2 instructio READER) ns Misc flash 2021-0 Yes [id number] 1U 1 Units [facility] glucose 9-26 SEE-INSTRU ity of scanning 00:00: CTIONS. [place] reader 00 Use per Medical (FREESTYLE device Branch CHON 2 instructio READER) ns Misc flash 2021-0 Yes [id number] 1U 1 Units [facility] glucose 9-26 SEE-INSTRU ity of scanning 00:00: CTIONS. [place] reader 00 Use per Medical (FREESTYLE device Branch CHON 2 instructio READER) ns Misc flash 2021-0 Yes [id number] 1U 1 Units [facility] glucose 9-26 SEE-INSTRU ity of scanning 00:00: CTIONS. [place] reader 00 Use per Medical (FREESTYLE device Branch CHON 2 instructio READER) ns Misc flash 2021-0 Yes [id number] 1U 1 Units [facility] glucose 9-26 SEE-INSTRU ity of scanning 00:00: CTIONS. [place] reader 00 Use per Medical (FREESTYLE device Branch CHON 2 instructio READER) ns Misc flash 2021-0 Yes [id number] 1U 1 Units [facility] s glucose 9-26 SEE-INSTRU ity of scanning 00:00: CTIONS. [place] reader 00 Use per Medical (FREESTYLE device Branch CHON 2 instructio READER) ns Misc flash 2021-0 Yes [id number] 1U 1 Units [facility] s glucose 9-26 SEE-INSTRU ity of scanning 00:00: CTIONS. [place] reader 00 Use per Medical (FREESTYLE device Branch CHON 2 instructio READER) ns Misc flash 2021-0 Yes [id number] 1U 1 Units [facility] glucose 9-26 SEE-INSTRU ity of scanning 00:00: CTIONS. [place] reader 00 Use per Medical (FREESTYLE device Branch CHON 2 instructio READER) ns Misc flash 2021-0 Yes [id number] 1U 1 Units [facility] glucose 9-26 SEE-INSTRU ity of scanning 00:00: CTIONS. [place] reader 00 Use per Medical (FREESTYLE device Branch CHON 2 instructio READER) ns Misc flash 2021-0 Yes [id number] 1U 1 Units [facility] s glucose 9-26 SEE-INSTRU ity of scanning 00:00: CTIONS. [place] reader 00 Use per Medical (FREESTYLE device Branch CHON 2 instructio READER) ns Misc flash 2021-0 Yes [id number] 1U 1 Units [facility] s glucose 9-26 SEE-INSTRU ity of scanning 00:00: CTIONS. [place] reader 00 Use per Medical (FREESTYLE device Branch CHON 2 instructio READER) ns Misc flash 2021-0 Yes [id number] 1U 1 Units Un[facility] s glucose 9-26 SEE-INSTRU ity of scanning 00:00: CTIONS. [place] reader 00 Use per Medical (FREESTYLE device Branch CHON 2 instructio READER) ns Misc flash 2021-0 Yes [id number] 1U 1 Units Un[facility] s glucose 9-26 SEE-INSTRU ity of scanning 00:00: CTIONS. [place] reader 00 Use per Medical (FREESTYLE device Branch CHON 2 instructio READER) ns Misc flash 2021-0 Yes [id number] 1U 1 Units [facility] s glucose 9-26 SEE-INSTRU ity of scanning 00:00: CTIONS. [place] reader 00 Use per Medical (FREESTYLE device Branch CHON 2 instructio READER) ns Misc flash 2021-0 Yes [id number] 1U 1 Units Un[facility] s glucose 9-26 SEE-INSTRU ity of scanning 00:00: CTIONS. [place] reader 00 Use per Medical (FREESTYLE device Branch CHON 2 instructio READER) ns Misc flash 2021-0 Yes [id number] 1U 1 Units Univer s glucose 9-26 SEE-INSTRU ity of scanning 00:00: CTIONS. [place] reader 00 Use per Medical (FREESTYLE device Branch CHON 2 instructio READER) ns Misc flash 2021-0 Yes [id number] 1U 1 Units Un[facility] s glucose 9-26 SEE-INSTRU ity of scanning 00:00: CTIONS. [place] reader 00 Use per Medical (FREESTYLE device Branch CHON 2 instructio READER) ns Misc flash 2021-0 Yes [id number] 1U 1 Units Un[facility] s glucose 9-26 SEE-INSTRU ity of scanning 00:00: CTIONS. [place] reader 00 Use per Medical (FREESTYLE device Branch CHON 2 instructio READER) ns Misc flash 2021-0 Yes [id number] 1U 1 Units Univer s glucose 9-26 SEE-INSTRU ity of scanning 00:00: CTIONS. [place] reader 00 Use per Medical (FREESTYLE device Branch CHON 2 instructio READER) ns Misc flash 2021-0 Yes [id number] 1U 1 Units Un[facility] s glucose 9-26 SEE-INSTRU ity of scanning 00:00: CTIONS. [place] reader 00 Use per Medical (FREESTYLE device Branch CHON 2 instructio READER) ns Misc flash 2021-0 Yes [id number] 1U 1 Units Un[facility] s glucose 9-26 SEE-INSTRU ity of scanning 00:00: CTIONS. [place] reader 00 Use per Medical (FREESTYLE device Branch CHON 2 instructio READER) ns Misc flash 2021-0 Yes [id number] 1U 1 Units [facility] glucose 9-26 SEE-INSTRU ity of scanning 00:00: CTIONS. [place] reader 00 Use per Medical (FREESTYLE device Branch CHON 2 instructio READER) ns Misc flash 2021-0 Yes [id number] 1U 1 Units [facility] glucose 9-26 SEE-INSTRU ity of scanning 00:00: CTIONS. [place] reader 00 Use per Medical (FREESTYLE device Branch CHON 2 instructio READER) ns Misc flash 2021-0 Yes [id number] 1U 1 Units [facility] glucose 9-26 SEE-INSTRU ity of scanning 00:00: CTIONS. [place] reader 00 Use per Medical (FREESTYLE device Branch CHON 2 instructio READER) ns Misc flash 2021-0 Yes [id number] 1U 1 Units [facility] glucose 9-26 SEE-INSTRU ity of scanning 00:00: CTIONS. [place] reader 00 Use per Medical (FREESTYLE device Branch CHON 2 instructio READER) ns Misc flash 2021-0 Yes [id number] 1U 1 Units [facility] glucose 9-26 SEE-INSTRU ity of scanning 00:00: CTIONS. [place] reader 00 Use per Medical (FREESTYLE device Branch CHON 2 instructio READER) ns Misc flash 2021-0 Yes [id number] 1U 1 Units [facility] glucose 9-26 SEE-INSTRU ity of scanning 00:00: CTIONS. [place] reader 00 Use per Medical (FREESTYLE device Branch CHON 2 instructio READER) ns Misc flash 2021-0 Yes [id number] 1U 1 Units [facility] s glucose 9-26 SEE-INSTRU ity of scanning 00:00: CTIONS. [place] reader 00 Use per Medical (FREESTYLE device Branch CHON 2 instructio READER) ns Misc flash 2021-0 Yes [id number] 1U 1 Units [facility] s glucose 9-26 SEE-INSTRU ity of scanning 00:00: CTIONS. [place] reader 00 Use per Medical (FREESTYLE device Branch CHON 2 instructio READER) ns Misc flash 2021-0 Yes [id number] 1U 1 Units [facility] s glucose 9-26 SEE-INSTRU ity of scanning 00:00: CTIONS. [place] reader 00 Use per Medical (FREESTYLE device Branch CHON 2 instructio READER) ns Misc flash 2021-0 Yes [id number] 1U 1 Units [facility] s glucose 9-26 SEE-INSTRU ity of scanning 00:00: CTIONS. [place] reader 00 Use per Medical (FREESTYLE device Branch CHON 2 instructio READER) ns Misc flash 2021-0 Yes [id number] 1U 1 Units [facility] s glucose 9-26 SEE-INSTRU ity of scanning 00:00: CTIONS. [place] reader 00 Use per Medical (FREESTYLE device Branch CHON 2 instructio READER) ns Misc flash 2021-0 Yes [id number] 1U 1 Units [facility] glucose 9-26 SEE-INSTRU ity of scanning 00:00: CTIONS. [place] reader 00 Use per Medical (FREESTYLE device Branch CHON 2 instructio READER) ns Misc flash 2021-0 Yes [id number] 1U 1 Units Un[facility] s glucose 9-26 SEE-INSTRU ity of scanning 00:00: CTIONS. [place] reader 00 Use per Medical (FREESTYLE device Branch CHON 2 instructio READER) ns Misc flash 2021-0 Yes [id number] 1U 1 Units [facility] glucose 9-26 SEE-INSTRU ity of scanning 00:00: CTIONS. [place] reader 00 Use per Medical (FREESTYLE device Branch CHON 2 instructio READER) ns Misc flash 2021-0 Yes [id number] 1U 1 Units [facility] glucose 9-26 SEE-INSTRU ity of scanning 00:00: CTIONS. [place] reader 00 Use per Medical (FREESTYLE device Branch CHON 2 instructio READER) ns Misc flash 2021-0 Yes [id number] 1U 1 Units [facility] glucose 9-26 SEE-INSTRU ity of scanning 00:00: CTIONS. [place] reader 00 Use per Medical (FREESTYLE device Branch CHON 2 instructio READER) ns Misc flash 2021-0 Yes [id number] 1U 1 Units Un[facility] glucose 9-26 SEE-INSTRU ity of scanning 00:00: CTIONS. [place] reader 00 Use per Medical (FREESTYLE device Branch CHON 2 instructio READER) ns Misc flash 2021-0 Yes [id number] 1U 1 Units [facility] glucose 9-26 SEE-INSTRU ity of scanning 00:00: CTIONS. [place] reader 00 Use per Medical (FREESTYLE device Branch CHON 2 instructio READER) ns Misc flash 2021-0 Yes [id number] 1U 1 Units [facility] glucose 9-26 SEE-INSTRU ity of scanning 00:00: CTIONS. [place] reader 00 Use per Medical (FREESTYLE device Branch CHON 2 instructio READER) ns Misc flash 2021-0 Yes [id number] 1U 1 Units [facility] glucose 9-26 SEE-INSTRU ity of scanning 00:00: CTIONS. [place] reader 00 Use per Medical (FREESTYLE device Branch CHON 2 instructio READER) ns Misc flash 2021-0 Yes [id number] 1U 1 Units [facility] glucose 9-26 SEE-INSTRU ity of scanning 00:00: CTIONS. [place] reader 00 Use per Medical (FREESTYLE device Branch CHON 2 instructio READER) ns Misc flash 2021-0 Yes [id number] 1U 1 Units [facility] glucose 9-26 SEE-INSTRU ity of scanning 00:00: CTIONS. [place] reader 00 Use per Medical (FREESTYLE device Branch CHON 2 instructio READER) ns Misc flash 2021-0 Yes [id number] 1U 1 Units [facility] glucose 9-26 SEE-INSTRU ity of scanning 00:00: CTIONS. [place] reader 00 Use per Medical (FREESTYLE device Branch CHON 2 instructio READER) ns Misc flash 2021-0 Yes [id number] 1U 1 Units [facility] glucose 9-26 SEE-INSTRU ity of scanning 00:00: CTIONS. [place] reader 00 Use per Medical (FREESTYLE device Branch CHON 2 instructio READER) ns Misc flash 2021-0 Yes [id number] 1U 1 Units [facility] glucose 9-26 SEE-INSTRU ity of scanning 00:00: CTIONS. [place] reader 00 Use per Medical (FREESTYLE device Branch CHON 2 instructio READER) ns Misc flash 2021-0 Yes [id number] 1U 1 Units [facility] glucose 9-26 SEE-INSTRU ity of scanning 00:00: CTIONS. [place] reader 00 Use per Medical (FREESTYLE device Branch CHON 2 instructio READER) ns Misc flash 2021-0 Yes [id number] 1U 1 Units [facility] glucose 9-26 SEE-INSTRU ity of scanning 00:00: CTIONS. [place] reader 00 Use per Medical (FREESTYLE device Branch CHON 2 instructio READER) ns Misc flash 2021-0 Yes [id number] 1U 1 Units [facility] glucose 9-26 SEE-INSTRU ity of scanning 00:00: CTIONS. [place] reader 00 Use per Medical (FREESTYLE device Branch CHON 2 instructio READER) ns Misc flash 2021-0 Yes [id number] 1U 1 Units [facility] glucose 9-26 SEE-INSTRU ity of scanning 00:00: CTIONS. [place] reader 00 Use per Medical (FREESTYLE device Branch CHON 2 instructio READER) ns Misc flash 2021-0 Yes [id number] 1U 1 Units [facility] glucose 9-26 SEE-INSTRU ity of scanning 00:00: CTIONS. [place] reader 00 Use per Medical (FREESTYLE device Branch CHON 2 instructio READER) ns Misc flash 2021-0 Yes [id number] 1U 1 Units [facility] glucose 9-26 SEE-INSTRU ity of scanning 00:00: CTIONS. [place] reader 00 Use per Medical (FREESTYLE device Branch CHON 2 instructio READER) ns Misc flash 2021-0 Yes [id number] 1U 1 Units [facility] glucose 9-26 SEE-INSTRU ity of scanning 00:00: CTIONS. [place] reader 00 Use per Medical (FREESTYLE device Branch CHON 2 instructio READER) ns Misc flash 2021-0 Yes [id number] 1U 1 Units [facility] glucose 9-26 SEE-INSTRU ity of scanning 00:00: CTIONS. [place] reader 00 Use per Medical (FREESTYLE device Branch CHON 2 instructio READER) ns Misc flash 2021-0 Yes [id number] 1U 1 Units [facility] glucose 9-26 SEE-INSTRU ity of scanning 00:00: CTIONS. [place] reader 00 Use per Medical (FREESTYLE device Branch CHON 2 instructio READER) ns Misc flash 2021-0 Yes [id number] 1U 1 Units [facility] glucose 9-26 SEE-INSTRU ity of scanning 00:00: CTIONS. [place] reader 00 Use per Medical (FREESTYLE device Branch CHON 2 instructio READER) ns Misc flash 2021-0 Yes [id number] 1U 1 Units [facility] glucose 9-26 SEE-INSTRU ity of scanning 00:00: CTIONS. [place] reader 00 Use per Medical (FREESTYLE device Branch CHON 2 instructio READER) ns Misc flash 2021-0 Yes [id number] 1U 1 Units [facility] glucose 9-26 SEE-INSTRU ity of scanning 00:00: CTIONS. [place] reader 00 Use per Medical (FREESTYLE device Branch CHON 2 instructio READER) ns Misc flash 2021-0 Yes [id number] 1U 1 Units [facility] glucose 9-26 SEE-INSTRU ity of scanning 00:00: CTIONS. [place] reader 00 Use per Medical (FREESTYLE device Branch CHON 2 instructio READER) ns Misc flash 2021-0 Yes [id number] 1U 1 Units [facility] glucose 9-26 SEE-INSTRU ity of scanning 00:00: CTIONS. [place] reader 00 Use per Medical (FREESTYLE device Branch CHON 2 instructio READER) ns Misc flash 2021-0 Yes [id number] 1U 1 Units [facility] glucose 9-26 SEE-INSTRU ity of scanning 00:00: CTIONS. [place] reader 00 Use per Medical (FREESTYLE device Branch CHON 2 instructio READER) ns Misc flash 2021-0 Yes [id number] 1U 1 Units [facility] glucose 9-26 SEE-INSTRU ity of scanning 00:00: CTIONS. [place] reader 00 Use per Medical (FREESTYLE device Branch CHON 2 instructio READER) ns Misc flash 2021-0 Yes [id number] 1U 1 Units [facility] glucose 9-26 SEE-INSTRU ity of scanning 00:00: CTIONS. [place] reader 00 Use per Medical (FREESTYLE device Branch CHON 2 instructio READER) ns Misc flash 2021-0 Yes [id number] 1U 1 Units [facility] glucose 9-26 SEE-INSTRU ity of scanning 00:00: CTIONS. [place] reader 00 Use per Medical (FREESTYLE device Branch CHON 2 instructio READER) ns Misc flash 2021-0 Yes [id number] 1U 1 Units [facility] glucose 9-26 SEE-INSTRU ity of scanning 00:00: CTIONS. [place] reader 00 Use per Medical (FREESTYLE device Branch CHON 2 instructio READER) ns Misc flash 2021-0 Yes [id number] 1U 1 Units [facility] glucose 9-26 SEE-INSTRU ity of scanning 00:00: CTIONS. [place] reader 00 Use per Medical (FREESTYLE device Branch CHON 2 instructio READER) ns Misc flash 2021-0 Yes [id number] 1U 1 Units Un[facility] glucose 9-26 SEE-INSTRU ity of scanning 00:00: CTIONS. [place] reader 00 Use per Medical (FREESTYLE device Branch CHON 2 instructio READER) ns Misc flash 2021-0 Yes [id number] 1U 1 Units [facility] glucose 9-26 SEE-INSTRU ity of scanning 00:00: CTIONS. [place] reader 00 Use per Medical (FREESTYLE device Branch CHON 2 instructio READER) ns Misc flash 2021-0 Yes [id number] 1U 1 Units [facility] glucose 9-26 SEE-INSTRU ity of scanning 00:00: CTIONS. [place] reader 00 Use per Medical (FREESTYLE device Branch CHON 2 instructio READER) ns Misc flash 2021-0 Yes [id number] 1U 1 Units Un[facility] glucose 9-26 SEE-INSTRU ity of scanning 00:00: CTIONS. [place] reader 00 Use per Medical (FREESTYLE device Branch CHON 2 instructio READER) ns Misc flash 2021-0 Yes [id number] 1U 1 Units Un[facility] glucose 9-26 SEE-INSTRU ity of scanning 00:00: CTIONS. [place] reader 00 Use per Medical (FREESTYLE device Branch CHON 2 instructio READER) ns Misc flash 2021-0 Yes [id number] 1U 1 Units [facility] glucose 9-26 SEE-INSTRU ity of scanning 00:00: CTIONS. [place] reader 00 Use per Medical (FREESTYLE device Branch CHON 2 instructio READER) ns Misc flash 2021-0 Yes [id number] 1U 1 Units Un[facility] glucose 9-26 SEE-INSTRU ity of scanning 00:00: CTIONS. [place] reader 00 Use per Medical (FREESTYLE device Branch CHON 2 instructio READER) ns Misc flash 2021-0 Yes [id number] 1U 1 Units [facility] glucose 9-26 SEE-INSTRU ity of scanning 00:00: CTIONS. [place] reader 00 Use per Medical (FREESTYLE device Branch CHON 2 instructio READER) ns Misc flash 2021-0 Yes [id number] 1U 1 Units [facility] glucose 9-26 SEE-INSTRU ity of scanning 00:00: CTIONS. [place] reader 00 Use per Medical (FREESTYLE device Branch CHON 2 instructio READER) ns Misc flash 2021-0 Yes [id number] 1U 1 Units Un[facility] glucose 9-26 SEE-INSTRU ity of scanning 00:00: CTIONS. [place] reader 00 Use per Medical (FREESTYLE device Branch CHON 2 instructio READER) ns Misc flash 2021-0 Yes [id number] 1U 1 Units Un[facility] glucose 9-26 SEE-INSTRU ity of scanning 00:00: CTIONS. [place] reader 00 Use per Medical (FREESTYLE device Branch CHON 2 instructio READER) ns Misc flash 2021-0 Yes [id number] 1U 1 Units Univer [facility] glucose 9-26 SEE-INSTRU ity of scanning 00:00: CTIONS. [place] reader 00 Use per Medical (FREESTYLE device Branch CHON 2 instructio READER) ns Misc flash 2021-0 Yes [id number] 1U 1 Units [facility] glucose 9-26 SEE-INSTRU ity of scanning 00:00: CTIONS. [place] reader 00 Use per Medical (FREESTYLE device Branch CHON 2 instructio READER) ns Misc flash 2021-0 Yes [id number] 1U 1 Units Univer s glucose 9-26 SEE-INSTRU ity of scanning 00:00: CTIONS. [place] reader 00 Use per Medical (FREESTYLE device Branch CHON 2 instructio READER) ns Misc flash 2021-0 Yes [id number] 1U 1 Units Univer s glucose 9-26 SEE-INSTRU ity of scanning 00:00: CTIONS. [place] reader 00 Use per Medical (FREESTYLE device Branch CHON 2 instructio READER) ns Misc flash 2021-0 Yes [id number] 1U 1 Units Univer s glucose 9-26 SEE-INSTRU ity of scanning 00:00: CTIONS. [place] reader 00 Use per Medical (FREESTYLE device Branch CHON 2 instructio READER) ns Misc flash 2021-0 Yes [id number] 1U 1 Units Univer s glucose 9-26 SEE-INSTRU ity of scanning 00:00: CTIONS. [place] reader 00 Use per Medical (FREESTYLE device Branch CHON 2 instructio READER) ns Misc flash 2021-0 Yes [id number] 1U 1 Units Univer s glucose 9-26 SEE-INSTRU ity of scanning 00:00: CTIONS. [place] reader 00 Use per Medical (FREESTYLE device Branch CHON 2 instructio READER) ns Misc flash 2021-0 Yes [id number] 1U 1 Units Univer s glucose 9-26 SEE-INSTRU ity of scanning 00:00: CTIONS. [place] reader 00 Use per Medical (FREESTYLE device Branch CHON 2 instructio READER) ns Misc flash 2021-0 Yes [id number] 1U 1 Units Univer s glucose 9-26 SEE-INSTRU ity of scanning 00:00: CTIONS. [place] reader 00 Use per Medical (FREESTYLE device Branch CHON 2 instructio READER) ns Misc flash 2021-0 Yes [id number] 1U 1 Units Univer s glucose 9-26 SEE-INSTRU ity of scanning 00:00: CTIONS. 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 [place] reader 00 Use per Medical (FREESTYLE device Branch CHON 2 instructio READER) ns Misc flash 2021-0 Yes [id number] 1U 1 Units Univer s glucose 9-26 SEE-INSTRU ity of scanning 00:00: CTIONS. [place] reader 00 Use per Medical (FREESTYLE device Branch CHON 2 instructio READER) ns Misc flash 2021-0 Yes [id number] 1U 1 Units Univer s glucose 9-26 SEE-INSTRU ity of scanning 00:00: CTIONS. [place] reader 00 Use per Medical (FREESTYLE device Branch CHON 2 instructio READER) ns [facility] flash Yes [id number] 1U 1 Units Univer s glucose 08-18 SEE-INSTRU ity of scanning 00:00: CTIONS. [place] reader 00 Use per Medical (FREESTYLE device Branch CHON 2 instructio READER) ns [facility] azithromyci 2021- No 500mg 500 mg, U nivers n 08-17 Oral, ity of (ZITHROMAX) 03:00: 13:59 DAILY, 4 [place] tablet 500 00 :00 doses, Medical mg First dose Branch on 08/16/22 at 2200, Last dose on Tu08/19/22 at 0900, DELFIN
Re ason for Anti-Infec tive: Documented Infection< br>Documen [email or web address] Infection Site: Respirator y
Durat ion of Therapy: Other (see Comments) predniSONE 2021- No [id number] 40mg Take 2 [facility] 20 mg 9-25 10-01 tablets by ity of tablet 00:00: 04:59 mouth in [place] 00 :00 [facility] morning [place] for 5 days. predniSONE 2021-2021- No [id number] 40mg Take 2 [facility] 20 mg 9-25 10-01 tablets by ity of tablet 00:00: 04:59 mouth in [place] 00 :00 [facility] for 5 days. predniSONE 2021-2- No [id number] 40mg Take 2 [facility] 20 mg 9-25 10-01 tablets by ity of tablet 00:00: 04:59 mouth in [place] 00 :00 [facility] for 5 days. predniSONE 2021-2021- No [id number] 40mg Take 2 [facility] 20 mg 9-25 10-01 tablets by ity of tablet 00:00: 04:59 mouth in [place] 00 :00 [facility] morning [place] for 5 days. predniSONE 2021-0 2022- No [id number] 40mg Take 2 [facility] 20 mg 9-25 10-01 tablets by ity of tablet 00:00: 04:59 mouth in [place] 00 :00 [facility] morning [place] for 5 days. predniSONE 2021- 2022- No [id number] 40mg Take 2 [facility] 20 mg 9-25 10-01 tablets by ity of tablet 00:00: 04:59 mouth in [place] 00 :00 [facility] for 5 days. predniSONE 2021-0 2021- No [id number] 40mg Take 2 Univers 20 mg 9-25 10-01 tablets by ity of tablet 00:00: 04:59 mouth in [place] 00 :00 [facility] for 5 days. predniSONE 2021-0 2- No [id number] 40mg Take 2 Univers 20 mg 9-25 10-01 tablets by ity of tablet 00:00: 04:59 mouth in [place] 00 :00 [facility] for 5 days. acetaminoph 2021-0 Yes 1 tablet Un lesly en 325 mg 9-24 as needed ity o f tablet 16:47: [address] acetaminoph 2021-0 Yes 1 tablet Un lesly en 325 mg 9-24 as needed ity o f tablet 16:47: [address] acetaminoph 2021-0 Yes 1 tablet Un lesly en 325 mg 9-24 as needed ity o f tablet 16:47: [address] acetaminoph 2021-0 Yes 1 tablet Un lesly en 325 mg 9-24 as needed ity o f tablet 16:47: [address] acetaminoph 2021-0 Yes 1 tablet Un lesly en 325 mg 9-24 as needed ity o f tablet 16:47: [address] acetaminoph 2021-0 Yes 1 tablet Un lesly en 325 mg 9-24 as needed ity o f tablet 16:47: [address] acetaminoph 2-0 Yes 1 tablet Un lesly en 325 mg 9-24 as needed ity o f tablet 16:47: [address] acetaminoph 2-0 Yes 1 tablet Un lesly en 325 mg 9-24 as needed ity o f tablet 16:47: [address] acetaminoph 2-0 Yes 1 tablet Un lesly en 325 mg 9-24 as needed ity o f tablet 16:47: [address] acetaminoph 2-0 Yes 1 tablet Un lesly en 325 mg 9-24 as needed ity o f tablet 16:47: [address] acetaminoph 2021-0 Yes 1 tablet Un lesly en 325 mg 9-24 as needed ity o f tablet 16:47: [place] [facility] acetaminoph 2021-0 Yes 1 tablet Un lesly en 325 mg 9-24 as needed ity o f tablet 16:47: [place] [address] Medical Branch acetaminoph 2021-0 Yes 1 tablet Un lesly en 325 mg 9-24 as needed ity o f tablet 16:47: [address] Branch acetaminoph 2021-0 Yes 1 tablet Un lesly en 325 mg 9-24 as needed ity o f tablet 16:47: [place] [address] Medical Branch acetaminoph 2021-0 Yes 1 tablet Un lesly en 325 mg 9-24 as needed ity o f tablet 16:47: [place] [address] Medical Branch acetaminoph 2021-0 Yes 1 tablet Un lesly en 325 mg 9-24 as needed ity o f tablet 16:47: [address] Branch acetaminoph 2021-0 Yes 1 tablet Un lesly en 325 mg 9-24 as needed ity o f tablet 16:47: [address] Branch acetaminoph 2021-0 Yes 1 tablet Un lesly en 325 mg 9-24 as needed ity o f tablet 16:47: [address] Branch acetaminoph 2021-0 Yes 1 tablet Un lesly en 325 mg 9-24 as needed ity o f tablet 16:47: [address] Branch acetaminoph 2021-0 Yes 1 tablet Un lesly en 325 mg 9-24 as needed ity o f tablet 16:47: [address] Branch acetaminoph 2021-0 Yes 1 tablet Un lesly en 325 mg 9-24 as needed ity o f tablet 16:47: [address] Branch acetaminoph 2021-0 Yes 1 tablet Un lesly en 325 mg 9-24 as needed ity o f tablet 16:47: [address] Branch acetaminoph 2021-0 Yes 1 tablet Un lesly en 325 mg 9-24 as needed ity o f tablet 16:47: [address] Branch acetaminoph 2021-0 Yes 1 tablet Un lesly en 325 mg 9-24 as needed ity o f tablet 16:47: [address] Branch acetaminoph 2021-0 Yes 1 tablet Un lesly en 325 mg 9-24 as needed ity o f tablet 16:47: [address] Branch acetaminoph 2021-0 Yes 1 tablet Un lesly en 325 mg 9-24 as needed ity o f tablet 16:47: [place] [address] Medical Branch acetaminoph 2021-0 Yes 1 tablet Un lesly en 325 mg 9-24 as needed ity o f tablet 16:47: [place] [address] Medical Branch acetaminoph 2021-0 Yes 1 tablet Un lesly en 325 mg 9-24 as needed ity o f tablet 16:47: [place] [address] Medical Branch acetaminoph 2021-0 Yes 1 tablet Un lesly en 325 mg 9-24 as needed ity o f tablet 16:47: [place] [address] Medical Branch acetaminoph 2021-0 Yes 1 tablet Un lesly en 325 mg 9-24 as needed ity o f tablet 16:47: [address] Branch acetaminoph 2021-0 Yes 1 tablet Un lesly en 325 mg 9-24 as needed ity o f tablet 16:47: [address] Branch acetaminoph 2021-0 Yes 1 tablet Un lesly en 325 mg 9-24 as needed ity o f tablet 16:47: [address] Branch acetaminoph 2021-0 Yes 1 tablet Un lesly en 325 mg 9-24 as needed ity o f tablet 16:47: [address] Branch acetaminoph 2021-0 Yes 1 tablet Un lesly en 325 mg 9-24 as needed ity o f tablet 16:47: [address] Branch acetaminoph 2021-0 Yes 1 tablet Un lesly en 325 mg 9-24 as needed ity o f tablet 16:47: [address] Branch acetaminoph 2021-0 Yes 1 tablet Un lesly en 325 mg 9-24 as needed ity o f tablet 16:47: [address] Branch acetaminoph 2021-0 Yes 1 tablet Un lesly en 325 mg 9-24 as needed ity o f tablet 16:47: [address] Branch acetaminoph 2021-0 Yes 1 tablet Un lesly en 325 mg 9-24 as needed ity o f tablet 16:47: [address] Branch acetaminoph 2021-0 Yes 1 tablet Un lesly en 325 mg 9-24 as needed ity o f tablet 16:47: [address] Branch acetaminoph 2021-0 Yes 1 tablet Un lesly en 325 mg 9-24 as needed ity o f tablet 16:47: [address] Branch acetaminoph 2021-0 Yes 1 tablet Un lesly en 325 mg 9-24 as needed ity o f tablet 16:47: [address] Branch acetaminoph 2021-0 Yes 1 tablet Un lesly en 325 mg 9-24 as needed ity o f tablet 16:47: [address] Branch acetaminoph 2021-0 Yes 1 tablet Un lesly en 325 mg 9-24 as needed ity o f tablet 16:47: [address] Branch acetaminoph 2021-0 Yes 1 tablet Un lesly en 325 mg 9-24 as needed ity o f tablet 16:47: [address] Branch acetaminoph 2021-0 Yes 1 tablet Un lesly en 325 mg 9-24 as needed ity o f tablet 16:47: [address] Branch acetaminoph 2021-0 Yes 1 tablet Un lesly en 325 mg 9-24 as needed ity o f tablet 16:47: [address] Branch acetaminoph 2021-0 Yes 1 tablet Un lesly en 325 mg 9-24 as needed ity o f tablet 16:47: [address] Branch acetaminoph 2021-0 Yes 1 tablet Un lesly en 325 mg 9-24 as needed ity o f tablet 16:47: [address] Branch acetaminoph 2021-0 Yes 1 tablet Un lesly en 325 mg 9-24 as needed ity o f tablet 16:47: [address] Branch acetaminoph 2021-0 Yes 1 tablet Un lesly en 325 mg 9-24 as needed ity o f tablet 16:47: [address] Branch acetaminoph 2021-0 Yes 1 tablet Un lesly en 325 mg 9-24 as needed ity o f tablet 16:47: [address] Branch acetaminoph 2021-0 Yes 1 tablet Un lesly en 325 mg 9-24 as needed ity o f tablet 16:47: [address] Branch acetaminoph 2021-0 Yes 1 tablet Un lesly en 325 mg 9-24 as needed ity o f tablet 16:47: [address] Branch acetaminoph 2021-0 Yes 1 tablet Un lesly en 325 mg 9-24 as needed ity o f tablet 16:47: [address] Branch acetaminoph 2021-0 Yes 1 tablet Un lesly en 325 mg 9-24 as needed ity o f tablet 16:47: [address] acetaminoph Yes 1 tablet Un lesly en 325 mg 9-24 as needed ity o f tablet 16:47: [address] atorvastati Yes 80mg 80 mg, Univ ers n (LIPITOR) 9-24 Oral, QHS, it y of tablet 80 02:00: First dose [place] mg 00 on Fri Medical 08/15/22 at Branch 2100, Until Discontinu ed, Routine albuterol Yes [id number] 2{puff} Inhale 2 Univers 90 9-24 Puffs ity of mcg/actuati 00:00: every 6 [place] on inhaler 00 (six) Medical hours as Branch needed for Wheezing, Shortness of Breath, Bronchospa sm or Chest tightness. albuterol Yes [id number] 2{puff} Inhale 2 Univers 90 9-24 Puffs ity of mcg/actuati 00:00: every 6 [place] on inhaler 00 (six) Medical hours as Branch needed for Wheezing, Shortness of Breath, Bronchospa sm or Chest tightness. albuterol Yes [id number] 2{puff} Inhale 2 Univers 90 9-24 Puffs ity of mcg/actuati 00:00: every 6 [place] on inhaler 00 (six) Medical hours as Branch needed for Wheezing, Shortness of Breath, Bronchospa sm or Chest tightness. albuterol Yes [id number] 2{puff} Inhale 2 Univers 90 9-24 Puffs ity of mcg/actuati 00:00: every 6 [place] on inhaler 00 (six) Medical hours as Branch needed for Wheezing, Shortness of Breath, Bronchospa sm or Chest tightness. albuterol Yes [id number] 2{puff} Inhale 2 Univers 90 9-24 Puffs ity of mcg/actuati 00:00: every 6 [place] on inhaler 00 (six) Medical hours as Branch needed for Wheezing, Shortness of Breath, Bronchospa sm or Chest tightness. albuterol Yes [id number] 2{puff} Inhale 2 Univers 90 9-24 Puffs ity of mcg/actuati 00:00: every 6 [place] on inhaler 00 (six) Medical hours as Branch needed for Wheezing, Shortness of Breath, Bronchospa sm or Chest tightness. albuterol Yes [id number] 2{puff} Inhale 2 Univers 90 9-24 Puffs ity of mcg/actuati 00:00: every 6 [place] on inhaler 00 (six) Medical hours as Branch needed for Wheezing, Shortness of Breath, Bronchospa sm or Chest tightness. albuterol Yes [id number] 2{puff} Inhale 2 Univers 90 9-24 Puffs ity of mcg/actuati 00:00: every 6 [place] on inhaler 00 (six) Medical hours as Branch needed for Wheezing, Shortness of Breath, Bronchospa sm or Chest tightness. albuterol Yes [id number] 2{puff} Inhale 2 Univers 90 9-24 Puffs [...] days 2 to Branch 5. albuterol Yes [id number] 2{puff} Inhale 2 [facility] 90 9-24 Puffs ity of mcg/actuati 00:00: every 6 [place] on inhaler 00 (six) Medical hours as Branch needed for Wheezing, Shortness of Breath, Bronchospa sm or Chest tightness. albuterol Yes [id number] 2{puff} Inhale 2 Univers 90 9-24 Puffs [...] 2 to Branch 5. albuterol 2021- Yes [id number] 2{puff} Inhale 2 Univers 90 9-24 Puffs [...] days 2 to Branch 5. albuterol Yes [id number] 2{puff} Inhale 2 Univers 90 9-24 Puffs [...] days 2 to Branch 5. albuterol Yes [id number] 2{puff} Inhale 2 Univers 90 9-24 Puffs [...] days 2 to Branch 5. albuterol Yes [id number] 2{puff} Inhale 2 Univers 90 9-24 Puffs [...] 2 to Branch 5. albuterol 2021-0 Yes [id number] 2{puff} Inhale 2 Univers 90 9-24 Puffs [...] days 2 to Branch 5. albuterol Yes [id number] 2{puff} Inhale 2 Univers 90 9-24 Puffs [...] days 2 to Branch 5. albuterol Yes [id number] 2{puff} Inhale 2 Univers 90 9-24 Puffs [...] days 2 to Branch 5. albuterol Yes [id number] 2{puff} Inhale 2 Univers 90 9-24 Puffs [...] 2 to Branch 5. albuterol 2021-0 Yes [id number] 2{puff} Inhale 2 Univers 90 9-24 Puffs [...] days 2 to Branch 5. albuterol Yes [id number] 2{puff} Inhale 2 Univers 90 9-24 Puffs ity of mcg/actuati 00:00: every 6 [place] on inhaler 00 (six) Medical hours as Branch needed for Wheezing, Shortness of Breath, Bronchospa sm or Chest tightness. albuterol Yes [id number] 2{puff} Inhale 2 Univers 90 9-24 Puffs ity of mcg/actuati 00:00: every 6 [place] on inhaler 00 (six) Medical hours as Branch needed for Wheezing, Shortness of Breath, Bronchospa sm or Chest tightness. albuterol Yes [id number] 2{puff} Inhale 2 Univers 90 9-24 Puffs ity of mcg/actuati 00:00: every 6 [place] on inhaler 00 (six) Medical hours as Branch needed for Wheezing, Shortness of Breath, Bronchospa sm or Chest tightness. albuterol Yes [id number] 2{puff} Inhale 2 Univers 90 9-24 Puffs ity of mcg/actuati 00:00: every 6 [place] on inhaler 00 (six) Medical hours as Branch needed for Wheezing, Shortness of Breath, Bronchospa sm or Chest tightness. albuterol Yes [id number] 2{puff} Inhale 2 Univers 90 9-24 Puffs ity of mcg/actuati 00:00: every 6 [place] on inhaler 00 (six) Medical hours as Branch needed for Wheezing, Shortness of Breath, Bronchospa sm or Chest tightness. albuterol Yes [id number] 2{puff} Inhale 2 Univers 90 9-24 Puffs ity of mcg/actuati 00:00: every 6 [place] on inhaler 00 (six) Medical hours as Branch needed for Wheezing, Shortness of Breath, Bronchospa sm or Chest tightness. albuterol Yes [id number] 2{puff} Inhale 2 Univers 90 9-24 Puffs ity of mcg/actuati 00:00: every 6 [place] on inhaler 00 (six) Medical hours as Branch needed for Wheezing, Shortness of Breath, Bronchospa sm or Chest tightness. albuterol Yes [id number] 2{puff} Inhale 2 Univers 90 9-24 Puffs ity of mcg/actuati 00:00: every 6 [place] on inhaler 00 (six) Medical hours as Branch needed for Wheezing, Shortness of Breath, Bronchospa sm or Chest tightness. albuterol Yes [id number] 2{puff} Inhale 2 Univers 90 9-24 Puffs ity of mcg/actuati 00:00: every 6 [place] on inhaler 00 (six) Medical hours as Branch needed for Wheezing, Shortness of Breath, Bronchospa sm or Chest tightness. albuterol Yes [id number] 2{puff} Inhale 2 Univers 90 9-24 Puffs ity of mcg/actuati 00:00: every 6 [place] on inhaler 00 (six) Medical hours as Branch needed for Wheezing, Shortness of Breath, Bronchospa sm or Chest tightness. albuterol Yes [id number] 2{puff} Inhale 2 Univers 90 9-24 Puffs ity of mcg/actuati 00:00: every 6 [place] on inhaler 00 (six) Medical hours as Branch needed for Wheezing, Shortness of Breath, Bronchospa sm or Chest tightness. albuterol Yes [id number] 2{puff} Inhale 2 Univers 90 9-24 Puffs ity of mcg/actuati 00:00: every 6 [place] on inhaler 00 (six) Medical hours as Branch needed for Wheezing, Shortness of Breath, Bronchospa sm or Chest tightness. albuterol Yes [id number] 2{puff} Inhale 2 Univers 90 9-24 Puffs ity of mcg/actuati 00:00: every 6 [place] on inhaler 00 (six) Medical hours as Branch needed for Wheezing, Shortness of Breath, Bronchospa sm or Chest tightness. albuterol Yes [id number] 2{puff} Inhale 2 Univers 90 9-24 Puffs ity of mcg/actuati 00:00: every 6 [place] on inhaler 00 (six) Medical hours as Branch needed for Wheezing, Shortness of Breath, Bronchospa sm or Chest tightness. albuterol Yes [id number] 2{puff} Inhale 2 Univers 90 9-24 Puffs ity of mcg/actuati 00:00: every 6 [place] on inhaler 00 (six) Medical hours as Branch needed for Wheezing, Shortness of Breath, Bronchospa sm or Chest tightness. albuterol Yes [id number] 2{puff} Inhale 2 Univers 90 9-24 Puffs ity of mcg/actuati 00:00: every 6 [place] on inhaler 00 (six) Medical hours as Branch needed for Wheezing, Shortness of Breath, Bronchospa sm or Chest tightness. albuterol Yes [id number] 2{puff} Inhale 2 Univers 90 9-24 Puffs ity of mcg/actuati 00:00: every 6 [place] on inhaler 00 (six) Medical hours as Branch needed for Wheezing, Shortness of Breath, Bronchospa sm or Chest tightness. albuterol Yes [id number] 2{puff} Inhale 2 Univers 90 9-24 Puffs ity of mcg/actuati 00:00: every 6 [place] on inhaler 00 (six) Medical hours as Branch needed for Wheezing, Shortness of Breath, Bronchospa sm or Chest tightness. albuterol Yes [id number] 2{puff} Inhale 2 [facility] 90 9-24 Puffs ity of mcg/actuati 00:00: every 6 [place] on inhaler 00 (six) Medical hours as Branch needed for Wheezing, Shortness of Breath, Bronchospa sm or Chest tightness. albuterol Yes [id number] 2{puff} Inhale 2 Univers 90 9-24 Puffs ity of mcg/actuati 00:00: every 6 [place] on inhaler 00 (six) Medical hours as Branch needed for Wheezing, Shortness of Breath, Bronchospa sm or Chest tightness. albuterol Yes [id number] 2{puff} Inhale 2 Univers 90 9-24 Puffs ity of mcg/actuati 00:00: every 6 [place] on inhaler 00 (six) Medical hours as Branch needed for Wheezing, Shortness of Breath, Bronchospa sm or Chest tightness. albuterol Yes [id number] 2{puff} Inhale 2 Univers 90 9-24 Puffs ity of mcg/actuati 00:00: every 6 [place] on inhaler 00 (six) Medical hours as Branch needed for Wheezing, Shortness of Breath, Bronchospa sm or Chest tightness. albuterol Yes [id number] 2{puff} Inhale 2 Univers 90 9-24 Puffs ity of mcg/actuati 00:00: every 6 [place] on inhaler 00 (six) Medical hours as Branch needed for Wheezing, Shortness of Breath, Bronchospa sm or Chest tightness. albuterol Yes [id number] 2{puff} Inhale 2 Univers 90 9-24 Puffs ity of mcg/actuati 00:00: every 6 [place] on inhaler 00 (six) Medical hours as Branch needed for Wheezing, Shortness of Breath, Bronchospa sm or Chest tightness. albuterol Yes [id number] 2{puff} Inhale 2 Univers 90 9-24 Puffs ity of mcg/actuati 00:00: every 6 [place] on inhaler 00 (six) Medical hours as Branch needed for Wheezing, Shortness of Breath, Bronchospa sm or Chest tightness. albuterol Yes [id number] 2{puff} Inhale 2 Univers 90 9-24 Puffs ity of mcg/actuati 00:00: every 6 [place] on inhaler 00 (six) Medical hours as Branch needed for Wheezing, Shortness of Breath, Bronchospa sm or Chest tightness. albuterol Yes [id number] 2{puff} Inhale 2 [facility] 90 9-24 Puffs ity of mcg/actuati 00:00: every 6 [place] on inhaler 00 (six) Medical hours as Branch needed for Wheezing, Shortness of Breath, Bronchospa sm or Chest tightness. albuterol Yes [id number] 2{puff} Inhale 2 Univers 90 9-24 Puffs ity of mcg/actuati 00:00: every 6 [place] on inhaler 00 (six) Medical hours as Branch needed for Wheezing, Shortness of Breath, Bronchospa sm or Chest tightness. albuterol Yes [id number] 2{puff} Inhale 2 Univers 90 9-24 Puffs ity of mcg/actuati 00:00: every 6 [place] on inhaler 00 (six) Medical hours as Branch needed for Wheezing, Shortness of Breath, Bronchospa sm or Chest tightness. albuterol Yes [id number] 2{puff} Inhale 2 Univers 90 9-24 Puffs ity of mcg/actuati 00:00: every 6 [place] on inhaler 00 (six) Medical hours as Branch needed for Wheezing, Shortness of Breath, Bronchospa sm or Chest tightness. albuterol Yes [id number] 2{puff} Inhale 2 Univers 90 9-24 Puffs ity of mcg/actuati 00:00: every 6 [place] on inhaler 00 (six) Medical hours as Branch needed for Wheezing, Shortness of Breath, Bronchospa sm or Chest tightness. albuterol Yes [id number] 2{puff} Inhale 2 [facility] 90 9-24 Puffs ity of mcg/actuati 00:00: every 6 [place] on inhaler 00 (six) Medical hours as Branch needed for Wheezing, Shortness of Breath, Bronchospa sm or Chest tightness. albuterol Yes [id number] 2{puff} Inhale 2 Univers 90 9-24 Puffs ity of mcg/actuati 00:00: every 6 [place] on inhaler 00 (six) Medical hours as Branch needed for Wheezing, Shortness of Breath, Bronchospa sm or Chest tightness. albuterol Yes [id number] 2{puff} Inhale 2 [facility] 90 9-24 Puffs ity of mcg/actuati 00:00: every 6 [place] on inhaler 00 (six) Medical hours as Branch needed for Wheezing, Shortness of Breath, Bronchospa sm or Chest tightness. albuterol Yes [id number] 2{puff} Inhale 2 Univers 90 9-24 Puffs ity of mcg/actuati 00:00: every 6 [place] on inhaler 00 (six) Medical hours as Branch needed for Wheezing, Shortness of Breath, Bronchospa sm or Chest tightness. albuterol Yes [id number] 2{puff} Inhale 2 Univers 90 9-24 Puffs ity of mcg/actuati 00:00: every 6 [place] on inhaler 00 (six) Medical hours as Branch needed for Wheezing, Shortness of Breath, Bronchospa sm or Chest tightness. albuterol Yes [id number] 2{puff} Inhale 2 Univers 90 9-24 Puffs ity of mcg/actuati 00:00: every 6 [place] on inhaler 00 (six) Medical hours as Branch needed for Wheezing, Shortness of Breath, Bronchospa sm or Chest tightness. albuterol Yes [id number] 2{puff} Inhale 2 Univers 90 9-24 Puffs ity of mcg/actuati 00:00: every 6 [place] as on inhaler 00 (six) Medical hours as Branch needed for Wheezing, Shortness of Breath, Bronchospa sm or Chest tightness. albuterol Yes [id number] 2{puff} Inhale 2 Univers 90 9-24 Puffs ity of mcg/actuati 00:00: every 6 [place] on inhaler 00 (six) Medical hours as Branch needed for Wheezing, Shortness of Breath, Bronchospa sm or Chest tightness. albuterol 2021- No [id number] 2{puff} Inhale 2 Univers 90 9-24 11-07 Puffs ity of mcg/actuati 00:00: 00:00 every 6 [place] on inhaler 00 :00 (six) Medical hours as Branch needed for Wheezing, Shortness of Breath, Bronchospa sm or Chest tightness. albuterol 2021- No [id number] 2{puff} Inhale 2 [facility] 90 9-24 11-07 Puffs ity of mcg/actuati 00:00: 00:00 every 6 [place] on inhaler 00 :00 (six) Medical hours as Branch needed for Wheezing, Shortness of Breath, Bronchospa sm or Chest tightness. albuterol 2021- No [id number] 2{puff} Inhale 2 [facility] 90 9-24 11-07 [...] Medical days 2 to Branch 5. azithromyci 2021-2021- No Z-Wil = Un lesly n 250 [...] 2 to Branch 5. azithromyci 2021- No [id number] 500mg Z-Wil = Univers n 500 mg 08-16-30 500 mg day ity of tablet 00:00: 04:59 1, then [place] 00 :00 250 mg Medical days 2 to Branch 5. azithromyci 2021- No [id number] 500mg Z-Wil = Univers n 500 mg 08-16-30 500 mg day ity of tablet 00:00: 04:59 1, then [place] 00 :00 250 mg Medical days 2 to Branch 5. azithromyci 2021- No [id number] 500mg Z-Wil = Univers n 500 mg 08-16 500 mg day ity of tablet 00:00: 04:59 1, then [place] 00 :00 250 mg Medical days 2 to Branch 5. azithromyci 2021- No [id number] 500mg Z-Wil = Univers n 500 mg 08-16- 500 mg day ity of tablet 00:00: 04:59 1, then [place] 00 :00 250 mg Medical days 2 to Branch 5. azithromyci 2021- No [id number] 500mg Z-Wil = Univers n 500 mg 08-16 500 mg day ity of tablet 00:00: 04:59 1, then [place] 00 :00 250 mg Medical days 2 to Branch 5. azithromyci 2021- No [id number] 500mg Z-Wil = [facility] n 500 mg 08-16-30 500 mg day ity of tablet 00:00: 04:59 1, then [place] 00 :00 250 mg Medical days 2 to Branch 5. ipratropium Yes 3mL 3 mL, Unive rs -albuteroL 08-15 Inhalation ity of (DUONEB) 22:52: , Q6HPRN, [place] 0.5 mg-3 59 Starting Medical mg(2.5 mg on Thu Branch base)/3 mL 08/15/22 at nebulizer 1752, solution 3 Until mL Discontinu ed, Routine, Wheezing traMADoL 2021-0 Yes 50mg 50 mg, Univers (ULTRAM) 08-15 Oral, ity of tablet 50 22:34: Q6HPRN, [place] mg 33 Starting Medical on Fri Branch 08/15/22 at 1734, Until Discontinu ed, Routine, Pain (scale 4-6) HYDROcodone 2021-0 Yes 1{tbl} 1 tablet, Univers -acetaminop 08-15 Oral, ity of hen (NORCO 22:34: Q6HPRN, [place] 5) 5-325 mg 16 Starting Medi johnathon tablet 1 on Fri Branch tablet 08/15/22 at 1734, Until Discontinu ed, Routine, Pain (scale 7-10) predniSONE 2021-0 Yes 40mg 40 mg, Unive rs (DELTASONE) 08-15 Oral, ity of tablet 40 14:00: DAILY, [place] mg 00 First dose Medical on Thu Branch 08/15/22 at 0900, Until Discontinu ed, Routine isosorbide 0 Yes 60mg 60 mg, Unive rs mononitrate 08-15 Oral, ity of (IMDUR) 24 14:00: DAILY, [place] hr tablet 00 First dose Medi johnathon 60 mg on Thu Branch 08/15/22 at 0900, Until Discontinu ed, Routine furosemide 2021-0 Yes 80mg 80 mg, Unive rs (LASIX) 08-15 Oral, ity of tablet 80 14:00: QAM+PM, [place] mg 00 First dose Medical on Thu Branch 08/15/22 at 0900, Until Discontinu ed, Routine metoprolol 0 Yes 50mg 50 mg, Unive rs succinate 08-15 Oral, ity of XL (TOPROL 14:00: DAILY, [place] XL) tablet 00 First dose Med ical 50 mg on Thu Branch 08/15/22 at 0900, Until Discontinu ed, Routine KCL 2021-0 Yes 20meq 20 mEq, [facility] (KLOR-CON 08-15 Oral, ity of M20) tablet 14:00: DAILY, [place] 20 mEq 00 First dose Medical on Thu Branch 08/15/22 at 0900, Until Discontinu ed, Routine allopurinoL 2021-0 Yes 100mg 100 mg, Un lesly (ZYLOPRIM) [...] First dose Medi johnathon solution 4 on Thu Branch mL 08/15/22 at 0900, Until Discontinu [...] 00 First dose Med ical mcg on Thu Branch 08/15/22 at 0600, Until Discontinu ed, Routine azithromyci No 500mg 500 mg, IV Univers n 08-15 Piggyback, ity of (ZITHROMAX) 05:45: 15:55 Q24H ABX, [place] 500 mg in 00 :22 5 doses, Medica l NaCl 0.9% First dose Bran ch (NS) 250 mL on Thu VIAL-MATE 08/15/22 at IV 0045, Last piggyback dose on Tu08/19/22 at 0045, Administer over 60 Minutes, 250 mL
Reas on for Anti-Infec tive: Empiric Therapy for Suspected Infection< br>Empiric Therapy Site: Respirator y
Durat ion of therapy: 5 days codeine-gua Yes 10mL 10 mL, Univ ers ifenesin 08-15 Oral, ity of (ROBITUSSIN 04:45: TIDPRN, [place] AC) 10-100 39 Starting Medic al mg/5 mL on [place] Branch oral 08/14/22 at solution 10 2345, mL Until Discontinu ed, Routine, Cough budesonide 2021-0 Yes .5mg 0.5 mg, [facility] ers (PULMICORT 08-15 Inhalation ity of RESPULE) 04:45: , BID, [place] nebulizer 00 First dose Medi johnathon solution on [place] Branch 0.5 mg 08/14/22 at 2345, Until Discontinu ed, Routine ipratropium 2021-0 Yes 3mL 3 mL, [facility] rs -albuteroL 08-15 Inhalation ity of (DUONEB) 04:45: , Q4H, [place] 0.5 mg-3 00 First dose Medic al mg(2.5 mg on [place] Branch base)/3 mL 08/14/22 at nebulizer 2345, solution 3 Until mL Discontinu ed, Routine aspirin 2021-0 Yes 81mg 81 mg, [facility] chewable 08-15 Oral, QAM ity of tablet 81 04:45: WITH [place] mg 00 BREAKFAST, Medical First dose Branch on [place] 08/14/22 at 2345, Until Discontinu ed, Routine Sliding 2021-0 Yes Subcutaneo [facility] ers Scale 08-15 us, TID ity of Insulin - 04:45: MEALS+HS, [place] Lispro 00 First dose Medical (HumaLOG) + on [place] Branch Fsbg 08/14/22 at Testing 2345, Until Discontinu ed, Routine NaCl 0.9% 2021- No 1000mL at 50 [facility] ers (NS) IV 08-15 mL/hr, IV ity of infusion 04:45: 15:11 Infusion, [place] 1,000 mL 00 :13 CONTINUOUS Medic al , Starting Branch on [place] 08/14/22 at 2345, Until Thu08/15/22 at 1011, Routine iopamidol 0 2021- No [id number] 65mL 65 mL, Un lesly (ISOVUE 08-15 [...] ty of enesin 01:15: 00:17 NOW, 1 [place] (ROBITUSSIN 00 :00 dose, On Medi johnathon [...] 08/14/22 at 1850, DELFIN, Chest pain metoprolol No 5mg 5 mg, Slow Univers (LOPRESSOR) 08-14 IV Push, ity of injection 5 23:30: 23:26 ONCE, 1 [place] mg 00 :00 dose, On Medical [place] Branch 08/14/22 at 1830, DELFIN dexamethaso No 10mg 10 mg, Uni vers ne sod phos 08-14 Slow IV ity of PF 23:30: 23:26 Push, [place] injection 00 :00 ONCE, 1 Medical 10 mg dose, On Branch [place] 08/14/22 at 1830, 1 mL molnupiravi No 800mg Take 4 Un lesly r 200 mg 07-31 capsules ity of capsule 00:00: 00:00 by mouth [place] 00 :00 every 12 Medical (twelve) Branch hours. FENTanyl PF No 50ug 50 mcg, Un lesly (SUBLIMAZE 07-26 Intramuscu it y of (PF)) 03:30: 02:40 lar, ONCE, [place] injection 00 :00 1 dose, On Medi johnathon 50 mcg Thu07/25/22 Branch at 2230, Routine ampicillin- No 3g 3 g, IV Un lesly sulbactam 07-26 Piggyback, ity of (UNASYN) 3 03:00: 03:40 ONCE, 1 [place] g in NaCl 00 :00 dose, On Medica l 0.9% (NS) Thu07/25/22 Bran ch 100 mL at 2200, MINI-BAG Administer over 30 Minutes, 100 mL
Reas on for Anti-Infec tive: Empiric Therapy for Suspected Infection< br>Empiric Therapy Site: Skin / Soft tissue
Duration of therapy: 72 hours ondansetron No 4mg 4 mg, Univ ers (ZOFRAN-ODT 07-26 Oral, ity of ) 01:30: 00:35 ONCE, 1 [place] disintegrat 00 :00 dose, On Medi johnathon ing tablet Thu07/25/22 Bra nch 4 mg at 2030, Routine HYDROcodone 2021-0 2021- No 1{tbl} 1 tablet, Univers -acetaminop 07-26 09-03 Oral, ity of hen (NORCO 00:30: 00:35 ONCE, 1 [place] 5) 5-325 mg 00 :00 dose, On Medi johnathon tablet 1 Thu07/25/22 Branc h tablet at 1930, DELFIN amoxicillin 2021-0 Yes [id number] 1{tbl} Take 1 [facility] -clavulanat 9-02 tablet by ity of e 875-125 00:00: mouth [place] mg per 00 every 12 Medical tablet (twelve) Branch hours. doxycycline 2021-0 Yes [id number] 100mg Take 1 [facility] hyclate 100 9-02 capsule by it y of mg capsule 00:00: mouth in [place] 00 the Medical morning Branch and 1 capsule in the evening. amoxicillin 2021-0 Yes [id number] 1{tbl} Take 1 [facility] -clavulanat 9-02 tablet by ity of e 875-125 00:00: mouth [place] mg per 00 every 12 Medical tablet (twelve) Branch hours. doxycycline 2021-0 Yes [id number] 100mg Take 1 [facility] hyclate 100 9-02 capsule by it y of mg capsule 00:00: mouth in [place] 00 the Medical morning Branch and 1 capsule in the evening. amoxicillin 2021-0 Yes [id number] 1{tbl} Take 1 [facility] -clavulanat 9-02 tablet by ity of e 875-125 00:00: mouth [place] mg per 00 every 12 Medical tablet (twelve) Branch hours. doxycycline 2021-0 Yes [id number] 100mg Take 1 [facility] hyclate 100 9-02 capsule by it y of mg capsule 00:00: mouth in [place] 00 the Medical morning Branch and 1 capsule in the evening. amoxicillin 2021-0 Yes [id number] 1{tbl} Take 1 [facility] -clavulanat 9-02 tablet by ity of e 875-125 00:00: mouth [place] mg per 00 every 12 Medical tablet (twelve) Branch hours. doxycycline 2021-0 Yes [id number] 100mg Take 1 [facility] hyclate 100 9-02 capsule by it y of mg capsule 00:00: mouth in [place] 00 the Medical morning Branch and 1 capsule in the evening. amoxicillin 2021-0 Yes [id number] 1{tbl} Take 1 [facility] -clavulanat 9-02 tablet by ity of e 875-125 00:00: mouth [place] mg per 00 every 12 Medical tablet (twelve) Branch hours. doxycycline 2021-0 Yes [id number] 100mg Take 1 [facility] hyclate 100 9-02 capsule by it y of mg capsule 00:00: mouth in [place] 00 the Medical morning Branch and 1 capsule in the evening. amoxicillin 2021-0 Yes [id number] 1{tbl} Take 1 [facility] -clavulanat 9-02 tablet by ity of e 875-125 00:00: mouth [place] mg per 00 every 12 Medical tablet (twelve) Branch hours. doxycycline 2021-0 Yes [id number] 100mg Take 1 [facility] hyclate 100 9-02 capsule by it y of mg capsule 00:00: mouth in [place] 00 the Medical morning Branch and 1 capsule in the evening. amoxicillin 2021-0 2021- No [id number] 1{tbl} Take 1 [facility] -clavulanat 9-02 09-24 tablet by it y of e 875-125 00:00: 00:00 mouth [place] mg per 00 :00 every 12 Medical tablet (twelve) Branch hours. doxycycline 2021-0 2- No [id number] 100mg Take 1 [facility] hyclate 100 9-02 09-24 capsule by i ty of mg capsule 00:00: 00:00 mouth in [place] 00 :00 the Medical morning Branch and 1 capsule in the evening. HYDROcodone 2021-2021- No [id number] 1{tbl} Take 1 U nivers -acetaminop 9-02 09-10 tablet by it y of hen 10-325 00:00: 04:59 mouth [place] mg tablet 00 :00 every 6 Medical (six) Branch hours as needed for Pain (scale 7-10) for up to 7 days. Indication s: acute pain HYDROcodone 2021-0 2- No [id number] 1{tbl} Take 1 U nivers -acetaminop 9-02 09-10 tablet by it y of hen 10-325 00:00: 04:59 mouth [place] mg tablet 00 :00 every 6 Medical (six) Branch hours as needed for Pain (scale 7-10) for up to 7 days. Indication s: acute pain HYDROcodone 2021-0 2021- No [id number] 1{tbl} Take 1 U nivers -acetaminop 9-02 09-10 tablet by it y of hen 10-325 00:00: 04:59 mouth [place] mg tablet 00 :00 every 6 Medical (six) Branch hours as needed for Pain (scale 7-10) for up to 7 days. Indication s: acute pain acetaminoph Yes 1 tablet Un lesly en 325 mg 8-18 as needed ity o f tablet 02:42: Medical Branch acetaminoph Yes 1 tablet Un lesly en 325 mg 8-18 as needed ity o f tablet 02:42: Medical Branch acetaminoph Yes 1 tablet Un lesly en 325 mg 8-18 as needed ity o f tablet 02:42: Medical Branch acetaminoph Yes 1 tablet Un lesly en 325 mg 8-18 as needed ity o f tablet 02:42: Medical Branch acetaminoph Yes 1 tablet Un lesly en 325 mg 8-18 as needed ity o f tablet 02:42: Medical Branch acetaminoph Yes 1 tablet Un lesly en 325 mg 8-18 as needed ity o f tablet 02:42: Medical Branch acetaminoph 0 Yes 1 tablet Un lesly en 325 mg 8-18 as needed ity o f tablet 02:42: Medical Branch acetaminoph Yes 1 tablet Un lesly en 325 mg 8-18 as needed ity o f tablet 02:42: Medical Branch acetaminoph Yes 1 tablet Un lesly en 325 mg 8-18 as needed ity o f tablet 02:42: Medical Branch clopidogreL 2021-0 2021- No 1 tablet U nivers 75 mg 8-18 08-15 ity of tablet 02:42: 00:00 [place] 00 :00 Medical Branch neomycin-po 2021-2021- No [id number] 3[drp] Place 3 Univers lymyxin-hyd 8-18 08-26 Drops in ity of rocortisone 00:00: 04:59 both ears [place] otic 00 :00 4 (four) Medical solution times Branch daily for 7 days. neomycin-po 2021-2021- No [id number] 3[drp] Place 3 Univers lymyxin-hyd 8-18 08-26 Drops in ity of rocortisone 00:00: 04:59 both ears [place] otic 00 :00 4 (four) Medical solution times Branch daily for 7 days. aspirin 81 2022- No [id number] 81mg Take 1 [facility] mg chewable 8-16 08-12 tablet by it y of tablet 00:00: 04:59 mouth in [place] 00 :00 the Medical morning Branch for 360 days. aspirin 81 2022- No [id number] 81mg Take 1 [facility] mg chewable 8-16 08-12 tablet by it y of tablet 00:00: 04:59 mouth in [place] 00 :00 the Medical morning Branch for 360 days. aspirin 81 2021-2022- No [id number] 81mg Take 1 [facility] mg chewable 8-16 08-12 tablet by it y of tablet 00:00: 04:59 mouth in [place] 00 :00 the Medical morning Branch for 360 days. aspirin 81 2022- No [id number] 81mg Take 1 [facility] mg chewable 8-16 08-12 tablet by it y of tablet 00:00: 04:59 mouth in [place] 00 :00 the Medical morning Branch for 360 days. aspirin 81 2021-2022- No [id number] 81mg Take 1 [facility] mg chewable 8-16 08-12 tablet by it y of tablet 00:00: 04:59 mouth in [place] 00 :00 the Medical morning Branch for 360 days. aspirin 81 2022- No [id number] 81mg Take 1 [facility] mg chewable 8-16 08-12 tablet by it y of tablet 00:00: 04:59 mouth in [place] 00 :00 the Medical morning Branch for 360 days. aspirin 81 2021-0 3- No [id number] 81mg Take 1 [facility] mg chewable 8-16 08-12 tablet by it y of tablet 00:00: 04:59 mouth in [place] 00 :00 the Medical morning Branch for 360 days. aspirin 81 0 2022- No [id number] 81mg Take 1 [facility] mg chewable 8-16 08-12 tablet by it y of tablet 00:00: 04:59 mouth in [place] 00 :00 the Medical morning Branch for 360 days. aspirin 81 2021-2022- No [id number] 81mg Take 1 [facility] mg chewable 8-16 08-12 tablet by it y of tablet 00:00: 04:59 mouth in [place] 00 :00 the Medical morning Branch for 360 days. aspirin 81 2021-0 2022- No [id number] 81mg Take 1 [facility] mg chewable 8-16 08-12 tablet by it y of tablet 00:00: 04:59 mouth in [place] 00 :00 the Medical morning Branch for 360 days. aspirin 81 2021-2022- No [id number] 81mg Take 1 [facility] mg chewable 8-16 08-12 tablet by it y of tablet 00:00: 04:59 mouth in [place] 00 :00 the [facility] morning Branch for 360 days. aspirin 81 2021-2022- No [id number] 81mg Take 1 [facility] mg chewable 8-16 08-12 tablet by it y of tablet 00:00: 04:59 mouth in [place] 00 :00 the [facility] morning Branch for 360 days. aspirin 81 2021-2022- No [id number] 81mg Take 1 [facility] mg chewable 8-16 08-12 tablet by it y of tablet 00:00: 04:59 mouth in [place] 00 :00 the [facility] for 360 days. aspirin 81 2021-2022- No [id number] 81mg Take 1 [facility] mg chewable 8-16 08-12 tablet by it y of tablet 00:00: 04:59 mouth in [place] 00 :00 the [facility] morning Branch for 360 days. aspirin 81 2021-2022- No [id number] 81mg Take 1 [facility] mg chewable 8-16 08-12 tablet by it y of tablet 00:00: 04:59 mouth in [place] 00 :00 the [facility] for 360 days. aspirin 81 2021-0 2022- No [id number] 81mg Take 1 [facility] mg chewable 8-16 08-12 tablet by it y of tablet 00:00: 04:59 mouth in [place] 00 :00 the Medical morning Branch for 360 days. aspirin 81 2021-0 2022- No [id number] 81mg Take 1 [facility] mg chewable 8-16 08-12 tablet by it y of tablet 00:00: 04:59 mouth in [place] 00 :00 the Medical morning Branch for 360 days. aspirin 81 2021-0 2022- No [id number] 81mg Take 1 [facility] mg chewable 8-16 08-12 tablet by it y of tablet 00:00: 04:59 mouth in [place] 00 :00 the Medical morning Branch for 360 days. aspirin 81 2022- No [id number] 81mg Take 1 [facility] mg chewable 8-16 08-12 tablet by it y of tablet 00:00: 04:59 mouth in [place] 00 :00 the Medical morning Branch for 360 days. aspirin 81 2022- No [id number] 81mg Take 1 [facility] mg chewable 8-16 08-12 tablet by it y of tablet 00:00: 04:59 mouth in [place] 00 :00 the Medical morning Branch for 360 days. aspirin 81 2021-2022- No [id number] 81mg Take 1 [facility] mg chewable 8-16 08-12 tablet by it y of tablet 00:00: 04:59 mouth in [place] 00 :00 the Medical morning Branch for 360 days. aspirin 81 2022- No [id number] 81mg Take 1 [facility] mg chewable 8-16 08-12 tablet by it y of tablet 00:00: 04:59 mouth in [place] 00 :00 the Medical morning Branch for 360 days. apixaban 2021-0 2021- No 1358 5mg Take 1 Univer s (ELIQUIS) 5 8-16 11-15 tablet by it y of mg tablet 00:00: 05:59 mouth in [place] 00 :00 the Medical morning Branch and 1 tablet in the evening. Do all this for 90 days. Indication s: atrial fibrillati on apixaban 2021-0 2021- No 1358 5mg Take 1 Univer s (ELIQUIS) 5 8-16 11-15 tablet by it y of mg tablet 00:00: 05:59 mouth in [place] 00 :00 the Medical morning Branch and 1 tablet in the evening. Do all this for 90 days. Indication s: atrial fibrillati on apixaban 2021-0 2021- No 1358 5mg Take 1 Univer [...] Take 1 Univer s (ELIQUIS) 5 8-16 10- tablet by it y of mg tablet 00:00: 00:00 mouth in [place] 00 :00 the Medical morning Branch and 1 tablet in the evening. Do all this for 90 days. Indication s: atrial fibrillati on aspirin 81 2021-0 2022- No [id number] 81mg Take 1 [facility] mg chewable 07-08- tablet by it y of tablet 00:00: 00:00 mouth in [place] 00 :00 the Medical morning Branch for 360 days. ALLERGY 2021-0 Yes [id number] Take 1 Univ ers RELIEF, 8-11 tablet by ity of CETIRIZINE, 00:00: mouth once [place] 10 mg 00 daily Medical tablet Branch ALLERGY 2021-0 Yes [id number] Take 1 Univ ers RELIEF, 8-11 tablet by ity of CETIRIZINE, 00:00: mouth once [place] 10 mg 00 daily Medical tablet Branch ALLERGY 2021-0 Yes [id number] Take 1 Univ ers RELIEF, 8-11 tablet by ity of CETIRIZINE, 00:00: mouth once [place] 10 mg 00 daily Medical tablet Branch ALLERGY 2021-0 Yes [id number] Take 1 Univ ers RELIEF, 8-11 tablet by ity of CETIRIZINE, 00:00: mouth once [place] 10 mg 00 daily Medical tablet Branch ALLERGY 2021-0 Yes [id number] Take 1 Univ ers RELIEF, 8-11 tablet by ity of CETIRIZINE, 00:00: mouth once [place] 10 mg 00 daily Medical tablet Branch ALLERGY 2021-0 Yes [id number] Take 1 Univ ers RELIEF, 8-11 tablet by ity of CETIRIZINE, 00:00: mouth once [place] 10 mg 00 daily Medical tablet Branch ALLERGY 2021-0 Yes [id number] Take 1 Univ ers RELIEF, 8-11 tablet by ity of CETIRIZINE, 00:00: mouth once [place] 10 mg 00 daily Medical tablet Branch ALLERGY 2021-0 Yes [id number] Take 1 Univ ers RELIEF, 8-11 tablet by ity of CETIRIZINE, 00:00: mouth once [place] 10 mg 00 daily Medical tablet Branch ALLERGY 2021-0 Yes [id number] Take 1 Univ ers RELIEF, 8-11 tablet by ity of CETIRIZINE, 00:00: mouth once [place] 10 mg 00 daily Medical tablet Branch ALLERGY 2021-0 Yes [id number] Take 1 Univ ers RELIEF, 8-11 tablet by ity of CETIRIZINE, 00:00: mouth once [place] 10 mg 00 daily Medical tablet Branch ALLERGY 2-0 Yes [id number] Take 1 Univ ers RELIEF, 8-11 tablet by ity of CETIRIZINE, 00:00: mouth once [place] 10 mg 00 daily Medical tablet Branch ALLERGY 2-0 Yes [id number] Take 1 Univ ers RELIEF, 8-11 tablet by ity of CETIRIZINE, 00:00: mouth once [place] 10 mg 00 daily Medical tablet Branch ALLERGY 2021-0 Yes [id number] Take 1 Univ ers RELIEF, 8-11 tablet by ity of CETIRIZINE, 00:00: mouth once [place] 10 mg 00 daily Medical tablet Branch ALLERGY 2021-0 Yes [id number] Take 1 Univ ers RELIEF, 8-11 tablet by ity of CETIRIZINE, 00:00: mouth once [place] 10 mg 00 daily Medical tablet Branch ALLERGY 2021-0 Yes [id number] Take 1 Univ ers RELIEF, 8-11 tablet by ity of CETIRIZINE, 00:00: mouth once [place] 10 mg 00 daily Medical tablet Branch ALLERGY 2021-0 Yes [id number] Take 1 Univ ers RELIEF, 8-11 tablet by ity of CETIRIZINE, 00:00: mouth once [place] 10 mg 00 daily Medical tablet Branch ALLERGY 2021-0 Yes [id number] Take 1 Univ ers RELIEF, 8-11 tablet by ity of CETIRIZINE, 00:00: mouth once [place] 10 mg 00 daily Medical tablet Branch ALLERGY 2021-0 Yes [id number] Take 1 Univ ers RELIEF, 8-11 tablet by ity of CETIRIZINE, 00:00: mouth once [place] 10 mg 00 daily Medical tablet Branch ALLERGY 2-0 Yes [id number] Take 1 Univ ers RELIEF, 8-11 tablet by ity of CETIRIZINE, 00:00: mouth once [place] 10 mg 00 daily Medical tablet Branch ALLERGY 2-0 Yes [id number] Take 1 Univ ers RELIEF, 8-11 tablet by ity of CETIRIZINE, 00:00: mouth once [place] 10 mg 00 daily Medical tablet Branch ALLERGY 2022-0 Yes [id number] Take 1 Univ ers RELIEF, 8-11 tablet by ity of CETIRIZINE, 00:00: mouth once [place] 10 mg 00 daily Medical tablet Branch ALLERGY 2-0 Yes [id number] Take 1 Univ ers RELIEF, 8-11 tablet by ity of CETIRIZINE, 00:00: mouth once [place] 10 mg 00 daily Medical tablet Branch ALLERGY 2021-0 Yes [id number] Take 1 Univ ers RELIEF, 8-11 tablet by ity of CETIRIZINE, 00:00: mouth once [place] 10 mg 00 daily Medical tablet Branch ALLERGY 2021-0 Yes [id number] Take 1 Univ ers RELIEF, 8-11 tablet by ity of CETIRIZINE, 00:00: mouth once [place] 10 mg 00 daily Medical tablet Branch ALLERGY 2021-0 Yes [id number] Take 1 Univ ers RELIEF, 8-11 tablet by ity of CETIRIZINE, 00:00: mouth once [place] 10 mg 00 daily Medical tablet Branch ALLERGY 2021-0 Yes [id number] Take 1 Univ ers RELIEF, 8-11 tablet by ity of CETIRIZINE, 00:00: mouth once [place] 10 mg 00 daily Medical tablet Branch ALLERGY 2021-0 Yes [id number] Take 1 Univ ers RELIEF, 8-11 tablet by ity of CETIRIZINE, 00:00: mouth once [place] 10 mg 00 daily Medical tablet Branch ALLERGY 2021-0 Yes [id number] Take 1 Univ ers RELIEF, 8-11 tablet by ity of CETIRIZINE, 00:00: mouth once [place] 10 mg 00 daily Medical tablet Branch ALLERGY 2021-0 Yes [id number] Take 1 Univ ers RELIEF, 8-11 tablet by ity of CETIRIZINE, 00:00: mouth once [place] 10 mg 00 daily Medical tablet Branch ALLERGY 2-0 Yes [id number] Take 1 Univ ers RELIEF, 8-11 tablet by ity of CETIRIZINE, 00:00: mouth once [place] 10 mg 00 daily Medical tablet Branch ALLERGY 2021-0 Yes [id number] Take 1 Univ ers RELIEF, 8-11 tablet by ity of CETIRIZINE, 00:00: mouth once [place] 10 mg 00 daily Medical tablet Branch ALLERGY 2-0 Yes [id number] Take 1 Univ ers RELIEF, 8-11 tablet by ity of CETIRIZINE, 00:00: mouth once [place] 10 mg 00 daily Medical tablet Branch ALLERGY 2021-0 Yes [id number] Take 1 Univ ers RELIEF, 8-11 tablet by ity of CETIRIZINE, 00:00: mouth once [place] 10 mg 00 daily Medical tablet Branch ALLERGY 2022-0 Yes [id number] Take 1 Univ ers RELIEF, 8-11 tablet by ity of CETIRIZINE, 00:00: mouth once [place] 10 mg 00 daily Medical tablet Branch ALLERGY 2-0 Yes [id number] Take 1 Univ ers RELIEF, 8-11 tablet by ity of CETIRIZINE, 00:00: mouth once [place] 10 mg 00 daily Medical tablet Branch ALLERGY 2021-0 Yes [id number] Take 1 Univ ers RELIEF, 8-11 tablet by ity of CETIRIZINE, 00:00: mouth once [place] 10 mg 00 daily Medical tablet Branch ALLERGY 2021-0 Yes [id number] Take 1 Univ ers RELIEF, 8-11 tablet by ity of CETIRIZINE, 00:00: mouth once [place] 10 mg 00 daily Medical tablet Branch ALLERGY 2021-0 Yes [id number] Take 1 Univ ers RELIEF, 8-11 tablet by ity of CETIRIZINE, 00:00: mouth once [place] 10 mg 00 daily Medical tablet Branch ALLERGY 2021-0 Yes [id number] Take 1 Univ ers RELIEF, 8-11 tablet by ity of CETIRIZINE, 00:00: mouth once [place] 10 mg 00 daily Medical tablet Branch ALLERGY 2021-0 Yes [id number] Take 1 Univ ers RELIEF, 8-11 tablet by ity of CETIRIZINE, 00:00: mouth once [place] 10 mg 00 daily Medical tablet Branch ALLERGY 2-0 Yes [id number] Take 1 Univ ers RELIEF, 8-11 tablet by ity of CETIRIZINE, 00:00: mouth once [place] 10 mg 00 daily Medical tablet Branch ALLERGY 2022-0 Yes [id number] Take 1 Univ ers RELIEF, 8-11 tablet by ity of CETIRIZINE, 00:00: mouth once [place] 10 mg 00 daily Medical tablet Branch ALLERGY 2-0 Yes [id number] Take 1 Univ ers RELIEF, 8-11 tablet by ity of CETIRIZINE, 00:00: mouth once [place] 10 mg 00 daily Medical tablet Branch ALLERGY 2-0 Yes [id number] Take 1 Univ ers RELIEF, 8-11 tablet by ity of CETIRIZINE, 00:00: mouth once [place] 10 mg 00 daily Medical tablet Branch ALLERGY 2022-0 Yes [id number] Take 1 Univ ers RELIEF, 8-11 tablet by ity of CETIRIZINE, 00:00: mouth once [place] 10 mg 00 daily Medical tablet Branch ALLERGY 2021-0 Yes [id number] Take 1 Univ ers RELIEF, 8-11 tablet by ity of CETIRIZINE, 00:00: mouth once [place] 10 mg 00 daily Medical tablet Branch ALLERGY 2021-0 Yes [id number] Take 1 Univ ers RELIEF, 8-11 tablet by ity of CETIRIZINE, 00:00: mouth once [place] 10 mg 00 daily Medical tablet Branch ALLERGY 2021-0 Yes [id number] Take 1 Univ ers RELIEF, 8-11 tablet by ity of CETIRIZINE, 00:00: mouth once [place] 10 mg 00 daily Medical tablet Branch ALLERGY 2021-0 Yes [id number] Take 1 Univ ers RELIEF, 8-11 tablet by ity of CETIRIZINE, 00:00: mouth once [place] 10 mg 00 daily Medical tablet Branch ALLERGY 2021-0 Yes [id number] Take 1 Univ ers RELIEF, 8-11 tablet by ity of CETIRIZINE, 00:00: mouth once [place] 10 mg 00 daily Medical tablet Branch ALLERGY 2021-0 Yes [id number] Take 1 Univ ers RELIEF, 8-11 tablet by ity of CETIRIZINE, 00:00: mouth once [place] 10 mg 00 daily Medical tablet Branch ALLERGY 2021-0 2021- No [id number] Take 1 Uni vers RELIEF, 8-11 10-25 tablet by ity of CETIRIZINE, 00:00: 00:00 mouth once [place] 10 mg 00 :00 daily Medical tablet Branch ALLERGY 2021-0 2021- No [id number] Take 1 Uni vers RELIEF, 8-11 10-25 tablet by ity of CETIRIZINE, 00:00: 00:00 mouth once [place] 10 mg 00 :00 daily Medical tablet Branch ALLERGY 2021-0 2021- No [id number] Take 1 Uni vers RELIEF, 8-11 10-25 tablet by ity of CETIRIZINE, 00:00: 00:00 mouth once [place] 10 mg 00 :00 daily Medical tablet Branch ALLERGY 2021-0 2021- No [id number] Take 1 Uni vers RELIEF, 8-11 10-25 tablet by ity of CETIRIZINE, 00:00: 00:00 mouth once [place] 10 mg 00 :00 daily Medical tablet Branch ALLERGY 2021- No [id number] Take 1 Uni vers RELIEF, 8-11 10-25 tablet by ity of CETIRIZINE, 00:00: 00:00 mouth once [place] 10 mg 00 :00 daily Medical tablet Branch busPIRone 5 0 Yes [id number] 5mg Take 1 [facility] mg tablet 8-10 tablet by ity o f 00:00: mouth (two) Medical times Branch daily as needed (anxiousne ss/stress) . busPIRone 5 Yes [id number] 5mg Take 1 [facility] mg tablet 8-10 tablet by ity o f 00:00: mouth (two) Medical times Branch daily as needed (anxiousne ss/stress) . busPIRone 5 Yes [id number] 5mg Take 1 [facility]-10 tablet by [facility] f 00:00: mouth (two) Medical times Branch daily as needed (anxiousne ss/stress) . busPIRone Yes [id number] 5mg Take 1 [facility] mg tablet 8-10 tablet by [facility] f 00:00: mouth (two) Medical times Branch daily as needed (anxiousne ss/stress) . busPIRone 5 0 Yes [id number] 5mg Take 1 [facility] mg tablet 8-10 tablet by [facility] f 00:00: mouth (two) Medical times Branch daily as needed (anxiousne ss/stress) . busPIRone 5 Yes [id number] 5mg Take 1 [facility] mg tablet 8-10 tablet by [facility] f 00:00: mouth (two) Medical times Branch daily as needed (anxiousne ss/stress) . busPIRone 5 0 Yes [id number] 5mg Take 1 [facility] mg tablet 8-10 tablet by [facility] f 00:00: mouth (two) Medical times Branch daily as needed (anxiousne ss/stress) . busPIRone 5 0 Yes [id number] 5mg Take 1 [facility] mg tablet 8-10 tablet by [facility] f 00:00: mouth (two) Medical times Branch daily as needed (anxiousne ss/stress) . busPIRone 5 2021-0 Yes [id number] 5mg Take 1 [facility] mg tablet 8-10 tablet by [facility] f 00:00: mouth (two) Medical times Branch daily as needed (anxiousne ss/stress) . busPIRone 5 2021-0 Yes [id number] 5mg Take 1 [facility] mg tablet 8-10 tablet by [facility] f 00:00: mouth (two) Medical times Branch daily as needed (anxiousne ss/stress) . busPIRone 5 2021-0 Yes [id number] 5mg Take 1 [facility] mg tablet 8-10 tablet by [facility] f 00:00: mouth (two) Medical times Branch daily as needed (anxiousne ss/stress) . busPIRone 5 2021-0 Yes [id number] 5mg Take 1 [facility] mg tablet 8-10 tablet by [facility] f 00:00: mouth (two) Medical times Branch daily as needed (anxiousne ss/stress) . busPIRone 5 2021-0 Yes [id number] 5mg Take 1 [facility] tablet 8-10 tablet by [facility] f 00:00: mouth (two) Medical times Branch daily as needed (anxiousne ss/stress) . busPIRone 5 2021-0 Yes [id number] 5mg Take 1 [facility] mg tablet 8-10 tablet by [facility] f 00:00: mouth (two) Medical times Branch daily as needed (anxiousne ss/stress) . busPIRone 5 2021-0 Yes [id number] 5mg Take 1 [facility] mg tablet 8-10 tablet by [facility] f 00:00: mouth (two) Medical times Branch daily as needed (anxiousne ss/stress) . busPIRone 5 2021-0 Yes [id number] 5mg Take 1 [facility] mg tablet 8-10 tablet by [facility] f 00:00: mouth (two) Medical times Branch daily as needed (anxiousne ss/stress) . busPIRone 5 2021-0 Yes [id number] 5mg Take 1 [facility] mg tablet 8-10 tablet by [facility] f 00:00: mouth (two) Medical times Branch daily as needed (anxiousne ss/stress) . busPIRone 5 2021-0 Yes [id number] 5mg Take 1 [facility] mg tablet 8-10 tablet by [facility] f 00:00: mouth (two) Medical times Branch daily as needed (anxiousne ss/stress) . busPIRone 5 2021-0 Yes [id number] 5mg Take 1 [facility] mg tablet 8-10 tablet by [facility] f 00:00: mouth (two) Medical times Branch daily as needed (anxiousne ss/stress) . busPIRone 5 2021-0 Yes [id number] 5mg Take 1 [facility] mg tablet 8-10 tablet by [facility] f 00:00: mouth (two) Medical times Branch daily as needed (anxiousne ss/stress) . busPIRone 5 2021-0 Yes [id number] 5mg Take 1 [facility] mg tablet 8-10 tablet by [facility] f 00:00: mouth (two) Medical times Branch daily as needed (anxiousne ss/stress) . busPIRone 5 2021-0 Yes [id number] 5mg Take 1 [facility] tablet 8-10 tablet by [facility] f 00:00: mouth (two) Medical times Branch daily as needed (anxiousne ss/stress) . busPIRone 5 2021-0 Yes [id number] 5mg Take 1 [facility] mg tablet 8-10 tablet by [facility] f 00:00: mouth (two) Medical times Branch daily as needed (anxiousne ss/stress) . busPIRone 5 2021-0 Yes [id number] 5mg Take 1 [facility] mg tablet 8-10 tablet by [facility] f 00:00: mouth (two) Medical times Branch daily as needed (anxiousne ss/stress) . busPIRone 5 2021-0 Yes [id number] 5mg Take 1 [facility] mg tablet 8-10 tablet by [facility] f 00:00: mouth (two) Medical times Branch daily as needed (anxiousne ss/stress) . busPIRone 5 2021-0 Yes [id number] 5mg Take 1 [facility] mg tablet 8-10 tablet by [facility] f 00:00: mouth (two) Medical times Branch daily as needed (anxiousne ss/stress) . busPIRone 5 2021-0 Yes [id number] 5mg Take 1 [facility] mg tablet 8-10 tablet by [facility] f 00:00: mouth (two) Medical times Branch daily as needed (anxiousne ss/stress) . busPIRone 5 2021-0 Yes [id number] 5mg Take 1 [facility] mg tablet 8-10 tablet by [facility] f 00:00: mouth (two) Medical times Branch daily as needed (anxiousne ss/stress) . busPIRone 5 2021-0 Yes [id number] 5mg Take 1 [facility] mg tablet 8-10 tablet by [facility] f 00:00: mouth (two) Medical times Branch daily as needed (anxiousne ss/stress) . busPIRone 5 2021-0 Yes [id number] 5mg Take 1 [facility] mg tablet 8-10 tablet by [facility] f 00:00: mouth (two) Medical times Branch daily as needed (anxiousne ss/stress) . busPIRone 5 2021-0 Yes [id number] 5mg Take 1 [facility] tablet 8-10 tablet by [facility] f 00:00: mouth (two) Medical times Branch daily as needed (anxiousne ss/stress) . busPIRone 5 2021-0 Yes [id number] 5mg Take 1 [facility] tablet 8-10 tablet by [facility] f 00:00: mouth (two) Medical times Branch daily as needed (anxiousne ss/stress) . busPIRone 5 2021-0 Yes [id number] 5mg Take 1 [facility] tablet 8-10 tablet by [facility] f 00:00: mouth (two) Medical times Branch daily as needed (anxiousne ss/stress) . busPIRone 5 2021-0 Yes [id number] 5mg Take 1 [facility] mg tablet 8-10 tablet by [facility] f 00:00: mouth (two) Medical times Branch daily as needed (anxiousne ss/stress) . busPIRone 5 2021-0 Yes [id number] 5mg Take 1 [facility] mg tablet 8-10 tablet by [facility] f 00:00: mouth (two) Medical times Branch daily as needed (anxiousne ss/stress) . busPIRone 5 2021-0 Yes [id number] 5mg Take 1 [facility] tablet 8-10 tablet by [facility] f 00:00: mouth (two) Medical times Branch daily as needed (anxiousne ss/stress) . busPIRone 5 2021-0 Yes [id number] 5mg Take 1 [facility] mg tablet 8-10 tablet by [facility] o f 00:00: mouth (two) Medical times Branch daily as needed (anxiousne ss/stress) . busPIRone 5 2021-0 Yes [id number] 5mg Take 1 [facility] mg tablet 8-10 tablet by [facility] o f 00:00: mouth (two) Medical times Branch daily as needed (anxiousne ss/stress) . busPIRone 5 2021-0 Yes [id number] 5mg Take 1 [facility] mg tablet 8-10 tablet by [facility] o f 00:00: mouth (two) Medical times Branch daily as needed (anxiousne ss/stress) . busPIRone 5 2021-0 Yes [id number] 5mg Take 1 [facility] mg tablet 8-10 tablet by [facility] o f 00:00: mouth (two) Medical times Branch daily as needed (anxiousne ss/stress) . busPIRone 5 2021-0 Yes [id number] 5mg Take 1 [facility] mg tablet 8-10 tablet by [facility] f 00:00: mouth (two) Medical times Branch daily as needed (anxiousne ss/stress) . busPIRone 5 2021-0 Yes [id number] 5mg Take 1 [facility] mg tablet 8-10 tablet by [facility] o f 00:00: mouth (two) Medical times Branch daily as needed (anxiousne ss/stress) . busPIRone 5 2021-0 Yes [id number] 5mg Take 1 [facility] mg tablet 8-10 tablet by [facility] o f 00:00: mouth (two) Medical times Branch daily as needed (anxiousne ss/stress) . busPIRone 5 2021-0 Yes [id number] 5mg Take 1 [facility] mg tablet 8-10 tablet by [facility] o f 00:00: mouth (two) Medical times Branch daily as needed (anxiousne ss/stress) . busPIRone 5 2021-0 Yes [id number] 5mg Take 1 [facility] mg tablet 8-10 tablet by [facility] o f 00:00: mouth (two) Medical times Branch daily as needed (anxiousne ss/stress) . busPIRone 5 2021-0 Yes [id number] 5mg Take 1 [facility] mg tablet 8-10 tablet by [facility] o f 00:00: mouth (two) Medical times Branch daily as needed (anxiousne ss/stress) . busPIRone 5 2021-0 Yes [id number] 5mg Take 1 [facility] mg tablet 8-10 tablet by [facility] o f 00:00: mouth (two) Medical times Branch daily as needed (anxiousne ss/stress) . busPIRone 5 2021-0 Yes [id number] 5mg Take 1 [facility] mg tablet 8-10 tablet by [facility] o f 00:00: mouth (two) Medical times Branch daily as needed (anxiousne ss/stress) . busPIRone 5 2021-0 Yes [id number] 5mg Take 1 [facility] mg tablet 8-10 tablet by [facility] f 00:00: mouth (two) Medical times Branch daily as needed (anxiousne ss/stress) . busPIRone 5 2021-0 Yes [id number] 5mg Take 1 [facility] mg tablet 8-10 tablet by [facility] o f 00:00: mouth (two) Medical times Branch daily as needed (anxiousne ss/stress) . busPIRone 5 2021-0 Yes [id number] 5mg Take 1 [facility] mg tablet 8-10 tablet by [facility] o f 00:00: mouth (two) Medical times Branch daily as needed (anxiousne ss/stress) . busPIRone 5 2021-0 Yes [id number] 5mg Take 1 [facility] mg tablet 8-10 tablet by [facility] o f 00:00: mouth (two) Medical times Branch daily as needed (anxiousne ss/stress) . busPIRone 5 2021-0 Yes [id number] 5mg Take 1 [facility] mg tablet 8-10 tablet by [facility] o f 00:00: mouth (two) Medical times Branch daily as needed (anxiousne ss/stress) . busPIRone 5 2021-0 Yes [id number] 5mg Take 1 [facility] mg tablet 8-10 tablet by [facility] o f 00:00: mouth (two) Medical times Branch daily as needed (anxiousne ss/stress) . busPIRone 5 2021-0 Yes [id number] 5mg Take 1 [facility] mg tablet 8-10 tablet by [facility] o f 00:00: mouth (two) Medical times Branch daily as needed (anxiousne ss/stress) . busPIRone 5 2021-0 Yes [id number] 5mg Take 1 [facility] mg tablet 8-10 tablet by [facility] o f 00:00: mouth (two) Medical times Branch daily as needed (anxiousne ss/stress) . busPIRone 5 2021-0 Yes [id number] 5mg Take 1 [facility] mg tablet 8-10 tablet by [facility] o f 00:00: mouth (two) Medical times Branch daily as needed (anxiousne ss/stress) . busPIRone 5 2021-0 Yes [id number] 5mg Take 1 [facility] mg tablet 8-10 tablet by [facility] o f 00:00: mouth (two) Medical times Branch daily as needed (anxiousne ss/stress) . busPIRone 5 2021-0 Yes [id number] 5mg Take 1 [facility] mg tablet 8-10 tablet by [facility] o f 00:00: mouth (two) Medical times Branch daily as needed (anxiousne ss/stress) . busPIRone 5 2021-0 Yes [id number] 5mg Take 1 [facility] mg tablet 8-10 tablet by [facility] o f 00:00: mouth (two) Medical times Branch daily as needed (anxiousne ss/stress) . busPIRone 5 2021-0 Yes [id number] 5mg Take 1 [facility] mg tablet 8-10 tablet by [facility] o f 00:00: mouth (two) Medical times Branch daily as needed (anxiousne ss/stress) . busPIRone 5 2021-0 Yes [id number] 5mg Take 1 [facility] mg tablet 8-10 tablet by [facility] o f 00:00: mouth (two) Medical times Branch daily as needed (anxiousne ss/stress) . busPIRone 5 2021-0 Yes [id number] 5mg Take 1 [facility] mg tablet 8-10 tablet by [facility] o f 00:00: mouth (two) Medical times Branch daily as needed (anxiousne ss/stress) . busPIRone 5 2021-0 Yes [id number] 5mg Take 1 [facility] mg tablet 8-10 tablet by [facility] o f 00:00: mouth 2 [place] 00 (two) Medical times Branch daily as needed (anxiousne ss/stress) . busPIRone 5 2021-0 Yes [id number] 5mg Take 1 [facility] mg tablet 8-10 tablet by [facility] o f 00:00: mouth 2 [place] 00 (two) Medical times Branch daily as needed (anxiousne ss/stress) . busPIRone 5 2021-0 2021- No [id number] 5mg Take 1 [facility] mg tablet 8-10 10-31 tablet by [facility] of 00:00: 00:00 mouth 2 [place] 00 :00 (two) Medical times Branch daily as needed (anxiousne ss/stress) . busPIRone 5 2021-0 2021- No [id number] 5mg Take 1 [facility] mg tablet 8-10 10-31 tablet by [facility] of 00:00: 00:00 mouth 2 [place] 00 :00 (two) Medical times Branch daily as needed (anxiousne ss/stress) . pantoprazol 2021-0 Yes [id number] 40mg Take 1 [facility] e 40 mg EC 8-07 tablet by [facility] of tablet 00:00: mouth in [place] [address] the Medical morning Branch and 1 tablet in the evening. pantoprazol 2021-0 Yes [id number] 40mg Take 1 [facility] e 40 mg EC 8-07 tablet by [facility] of tablet 00:00: mouth in [place] [address] the Medical morning Branch and 1 tablet in the evening. pantoprazol 2021-0 Yes [id number] 40mg Take 1 [facility] e 40 mg EC 8-07 tablet by [facility] of tablet 00:00: mouth in [place] the Medical morning Branch and 1 tablet in the evening. pantoprazol 2021-0 Yes [id number] 40mg Take 1 [facility] e 40 mg EC 8-07 tablet by [facility] of tablet 00:00: mouth in [place] the Medical morning Branch and 1 tablet in the evening. pantoprazol 2021-0 Yes [id number] 40mg Take 1 [facility] e 40 mg EC 8-07 tablet by [facility] of tablet 00:00: mouth in [place] [address] the Medical morning Branch and 1 tablet in the evening. pantoprazol 2-0 Yes [id number] 40mg Take 1 [facility] e 40 mg EC 8-07 tablet by [facility] of tablet 00:00: mouth in [place] [address] the Medical morning Branch and 1 tablet in the evening. pantoprazol 2022-0 Yes [id number] 40mg Take 1 [facility] e 40 mg EC 8-07 tablet by [facility] of tablet 00:00: mouth in [place] 00 the Medical morning Branch and 1 tablet in the evening. pantoprazol 2022-0 Yes [id number] 40mg Take 1 [facility] e 40 mg EC 8-07 tablet by [facility] of tablet 00:00: mouth in [place] 00 the Medical morning Branch and 1 tablet in the evening. pantoprazol 2022-0 Yes [id number] 40mg Take 1 [facility] e 40 mg EC 8-07 tablet by [facility] of tablet 00:00: mouth in [place] 00 the Medical morning Branch and 1 tablet in the evening. pantoprazol 2022-0 Yes [id number] 40mg Take 1 [facility] e 40 mg EC 8-07 tablet by [facility] of tablet 00:00: mouth in [place] [address] the Medical morning Branch and 1 tablet in the evening. pantoprazol 2-0 Yes [id number] 40mg Take 1 [facility] e 40 mg EC 8-07 tablet by [facility] of tablet 00:00: mouth in [place] [address] the Medical morning Branch and 1 tablet in the evening. pantoprazol 2-0 Yes [id number] 40mg Take 1 [facility] e 40 mg EC 8-07 tablet by [facility] of tablet 00:00: mouth in [place] [address] the Medical morning Branch and 1 tablet in the evening. pantoprazol 2-0 Yes [id number] 40mg Take 1 [facility] e 40 mg EC 8-07 tablet by [facility] of tablet 00:00: mouth in [place] [address] the Medical morning Branch and 1 tablet in the evening. pantoprazol 2-0 Yes [id number] 40mg Take 1 [facility] e 40 mg EC 8-07 tablet by [facility] of tablet 00:00: mouth in [place] [address] the Medical morning Branch and 1 tablet in the evening. pantoprazol 2022-0 Yes [id number] 40mg Take 1 [facility] e 40 mg EC 8-07 tablet by [facility] of tablet 00:00: mouth in [place] [address] the Medical morning Branch and 1 tablet in the evening. pantoprazol 2022-0 Yes [id number] 40mg Take 1 [facility] e 40 mg EC 8-07 tablet by [facility] of tablet 00:00: mouth in [place] [address] the Medical morning Branch and 1 tablet in the evening. pantoprazol 2022-0 Yes [id number] 40mg Take 1 [facility] e 40 mg EC 8-07 tablet by [facility] of tablet 00:00: mouth in [place] 00 the Medical morning Branch and 1 tablet in the evening. pantoprazol 2022-0 Yes [id number] 40mg Take 1 [facility] e 40 mg EC 8-07 tablet by [facility] of tablet 00:00: mouth in [place] 00 the Medical morning Branch and 1 tablet in the evening. pantoprazol 2022-0 Yes [id number] 40mg Take 1 [facility] e 40 mg EC 8-07 tablet by [facility] of tablet 00:00: mouth in [place] [address] the Medical morning Branch and 1 tablet in the evening. pantoprazol 2-0 Yes [id number] 40mg Take 1 [facility] e 40 mg EC 8-07 tablet by [facility] of tablet 00:00: mouth in [place] [address] the Medical morning Branch and 1 tablet in the evening. pantoprazol 2-0 Yes [id number] 40mg Take 1 [facility] e 40 mg EC 8-07 tablet by [facility] of tablet 00:00: mouth in [place] [address] the Medical morning Branch and 1 tablet in the evening. pantoprazol 2-0 Yes [id number] 40mg Take 1 [facility] e 40 mg EC 8-07 tablet by [facility] of tablet 00:00: mouth in [place] [address] the Medical morning Branch and 1 tablet in the evening. pantoprazol 2-0 Yes [id number] 40mg Take 1 [facility] e 40 mg EC 8-07 tablet by [facility] of tablet 00:00: mouth in [place] [address] the Medical morning Branch and 1 tablet in the evening. pantoprazol 2022-0 Yes [id number] 40mg Take 1 [facility] e 40 mg EC 8-07 tablet by [facility] of tablet 00:00: mouth in [place] [address] the Medical morning Branch and 1 tablet in the evening. pantoprazol 2022-0 Yes [id number] 40mg Take 1 [facility] e 40 mg EC 8-07 tablet by [facility] of tablet 00:00: mouth in [place] [address] the Medical morning Branch and 1 tablet in the evening. pantoprazol 2022-0 Yes [id number] 40mg Take 1 [facility] e 40 mg EC 8-07 tablet by [facility] of tablet 00:00: mouth in [place] [address] the Medical morning Branch and 1 tablet in the evening. pantoprazol 2022-0 Yes [id number] 40mg Take 1 [facility] e 40 mg EC 8-07 tablet by [facility] of tablet 00:00: mouth in [place] 00 the Medical morning Branch and 1 tablet in the evening. pantoprazol 2022-0 Yes [id number] 40mg Take 1 [facility] e 40 mg EC 8-07 tablet by [facility] of tablet 00:00: mouth in [place] 00 the Medical morning Branch and 1 tablet in the evening. pantoprazol 2022-0 Yes [id number] 40mg Take 1 [facility] e 40 mg EC 8-07 tablet by [facility] of tablet 00:00: mouth in [place] 00 the Medical morning Branch and 1 tablet in the evening. pantoprazol 2-0 Yes [id number] 40mg Take 1 [facility] e 40 mg EC 8-07 tablet by [facility] of tablet 00:00: mouth in [place] 00 the Medical morning Branch and 1 tablet in the evening. pantoprazol 2-0 Yes [id number] 40mg Take 1 [facility] e 40 mg EC 8-07 tablet by [facility] of tablet 00:00: mouth in [place] [address] the Medical morning Branch and 1 tablet in the evening. pantoprazol 2-0 Yes [id number] 40mg Take 1 [facility] e 40 mg EC 8-07 tablet by [facility] of tablet 00:00: mouth in [place] [address] the Medical morning Branch and 1 tablet in the evening. pantoprazol 2-0 Yes [id number] 40mg Take 1 [facility] e 40 mg EC 8-07 tablet by [facility] of tablet 00:00: mouth in [place] [address] the Medical morning Branch and 1 tablet in the evening. pantoprazol 2-0 Yes [id number] 40mg Take 1 [facility] e 40 mg EC 8-07 tablet by [facility] of tablet 00:00: mouth in [place] 00 the Medical morning Branch and 1 tablet in the evening. pantoprazol 2-0 Yes [id number] 40mg Take 1 [facility] e 40 mg EC 8-07 tablet by [facility] of tablet 00:00: mouth in [place] [address] the Medical morning Branch and 1 tablet in the evening. pantoprazol 2022-0 Yes [id number] 40mg Take 1 [facility] e 40 mg EC 8-07 tablet by [facility] of tablet 00:00: mouth in [place] [address] the Medical morning Branch and 1 tablet in the evening. pantoprazol 2022-0 Yes [id number] 40mg Take 1 [facility] e 40 mg EC 8-07 tablet by [facility] of tablet 00:00: mouth in [place] 00 the Medical morning Branch and 1 tablet in the evening. pantoprazol 2022-0 Yes [id number] 40mg Take 1 [facility] e 40 mg EC 8-07 tablet by [facility] of tablet 00:00: mouth in [place] 00 the Medical morning Branch and 1 tablet in the evening. pantoprazol 2022-0 Yes [id number] 40mg Take 1 [facility] e 40 mg EC 8-07 tablet by [facility] of tablet 00:00: mouth in [place] 00 the Medical morning Branch and 1 tablet in the evening. pantoprazol 2022-0 Yes [id number] 40mg Take 1 [facility] e 40 mg EC 8-07 tablet by [facility] of tablet 00:00: mouth in [place] 00 the Medical morning Branch and 1 tablet in the evening. pantoprazol 2022-0 Yes [id number] 40mg Take 1 [facility] e 40 mg EC 8-07 tablet by [facility] of tablet 00:00: mouth in [place] [address] the Medical morning Branch and 1 tablet in the evening. pantoprazol 2-0 Yes [id number] 40mg Take 1 [facility] e 40 mg EC 8-07 tablet by [facility] of tablet 00:00: mouth in [place] [address] the Medical morning Branch and 1 tablet in the evening. pantoprazol 2-0 Yes [id number] 40mg Take 1 [facility] e 40 mg EC 8-07 tablet by [facility] of tablet 00:00: mouth in [place] [address] the Medical morning Branch and 1 tablet in the evening. pantoprazol 2022-0 Yes [id number] 40mg Take 1 [facility] e 40 mg EC 8-07 tablet by [facility] of tablet 00:00: mouth in [place] [address] the Medical morning Branch and 1 tablet in the evening. pantoprazol 2-0 Yes [id number] 40mg Take 1 [facility] e 40 mg EC 8-07 tablet by [facility] of tablet 00:00: mouth in [place] [address] the Medical morning Branch and 1 tablet in the evening. pantoprazol 2022-0 Yes [id number] 40mg Take 1 [facility] e 40 mg EC 8-07 tablet by [facility] of tablet 00:00: mouth in [place] [address] the Medical morning Branch and 1 tablet in the evening. pantoprazol 2022-0 Yes [id number] 40mg Take 1 [facility] e 40 mg EC 8-07 tablet by [facility] of tablet 00:00: mouth in [place] 00 the Medical morning Branch and 1 tablet in the evening. pantoprazol 2021-0 Yes [id number] 40mg Take 1 [facility] e 40 mg EC 8-07 tablet by [facility] of tablet 00:00: mouth in [place] 00 the Medical morning Branch and 1 tablet in the evening. pantoprazol 2021-0 Yes [id number] 40mg Take 1 [facility] e 40 mg EC 8-07 tablet by [facility] of tablet 00:00: mouth in [place] 00 the Medical morning Branch and 1 tablet in the evening. pantoprazol 2021-0 Yes [id number] 40mg Take 1 [facility] e 40 mg EC 8-07 tablet by [facility] of tablet 00:00: mouth in [place] 00 the Medical morning Branch and 1 tablet in the evening. pantoprazol 2021-0 Yes [id number] 40mg Take 1 [facility] e 40 mg EC 8-07 tablet by [facility] of tablet 00:00: mouth in [place] 00 the Medical morning Branch and 1 tablet in the evening. pantoprazol 2021-0 Yes [id number] 40mg Take 1 [facility] e 40 mg EC 8-07 tablet by [facility] of tablet 00:00: mouth in [place] [address] the Medical morning Branch and 1 tablet in the evening. pantoprazol 2021-0 2021- No [id number] 40mg Take 1 [facility] e 40 mg EC 8-07 10-25 tablet by [facility] of tablet 00:00: 00:00 mouth in [place] 00 :00 the Medical morning Branch and 1 tablet in the evening. pantoprazol 2021-0 2- No [id number] 40mg Take 1 [facility] e 40 mg EC 8-07 10-25 tablet by [facility] of tablet 00:00: 00:00 mouth in [place] 00 :00 the Medical morning Branch and 1 tablet in the evening. pantoprazol 2021-0 2- No [id number] 40mg Take 1 [facility] e 40 mg EC 8-07 10-25 tablet by [facility] of tablet 00:00: 00:00 mouth in [place] 00 :00 the Medical morning Branch and 1 tablet in the evening. pantoprazol 2021-0 2- No [id number] 40mg Take 1 [facility] e 40 mg EC 8-07 10-25 tablet by [facility] of tablet 00:00: 00:00 mouth in [place] 00 :00 the Medical morning Branch and 1 tablet in the evening. pantoprazol 2021-0 2021- No [id number] 40mg Take 1 [facility] e 40 mg EC 06-29 10-25 tablet by [facility] of tablet 00:00: 00:00 mouth in [place] 00 :00 the Medical morning Branch and 1 tablet in the evening. allopurinoL 2021-0 Yes [id number] 100mg Take 1 [facility] 100 mg 8-01 tablet by [facility] of tablet 00:00: mouth in [place] 00 the Medical morning. Branch colchicine 2021-0 Yes [id number] .6mg Take 1 [facility] 0.6 mg 8-01 tablet by [facility] of tablet 00:00: mouth in [place] 00 the Medical morning. Branch losartan 50 2021-0 Yes [id number] 50mg Take 1 [facility] mg tablet 8-01 tablet by it[facility] o f 00:00: mouth in [place] 00 the Medical morning. Branch allopurinoL 2021-0 Yes [id number] 100mg Take 1 [facility] 100 mg 8-01 tablet by [facility] of tablet 00:00: mouth in [place] 00 the Medical morning. Branch colchicine 2021-0 Yes [id number] .6mg Take 1 [facility] 0.6 mg 8-01 tablet by [facility] of tablet 00:00: mouth in [place] 00 the Medical morning. Branch losartan 50 2021-0 Yes [id number] 50mg Take 1 [facility] mg tablet 8-01 tablet by [facility] o f 00:00: mouth in [place] the Medical morning. Branch allopurinoL 2021-0 Yes [id number] 100mg Take 1 [facility] 100 mg 8-01 tablet by [facility] of tablet 00:00: mouth in [place] the Medical morning. Branch colchicine 2021-0 Yes [id number] .6mg Take 1 [facility] 0.6 mg 8-01 tablet by [facility] of tablet 00:00: mouth in [place] 00 the Medical morning. Branch losartan 50 2021-0 Yes [id number] 50mg Take 1 [facility] mg tablet 8-01 tablet by [facility] o f 00:00: mouth in [place] 00 the Medical morning. Branch allopurinoL 2021-0 Yes [id number] 100mg Take 1 [facility] 100 mg 8-01 tablet by [facility] of tablet 00:00: mouth in [place] 00 the Medical morning. Branch colchicine 2021-0 Yes [id number] .6mg Take 1 [facility] 0.6 mg 8-01 tablet by [facility] of tablet 00:00: mouth in [place] 00 the Medical morning. Branch losartan 50 2021-0 Yes [id number] 50mg Take 1 [facility] mg tablet 8-01 tablet by [facility] o f 00:00: mouth in [place] the Medical morning. Branch allopurinoL 2-0 Yes [id number] 100mg Take 1 [facility] 100 mg 8-01 tablet by [facility] of tablet 00:00: mouth in [place] the Medical morning. Branch colchicine 2-0 Yes [id number] .6mg Take 1 [facility] 0.6 mg 8-01 tablet by [facility] of tablet 00:00: mouth in [place] the Medical morning. Branch losartan 50 2021-0 Yes [id number] 50mg Take 1 [facility] mg tablet 8-01 tablet by [facility] o f 00:00: mouth in [place] the Medical morning. Branch allopurinoL 2-0 Yes [id number] 100mg Take 1 [facility] 100 mg 8-01 tablet by [facility] of tablet 00:00: mouth in [place] the Medical morning. Branch colchicine 2021-0 Yes [id number] .6mg Take 1 [facility] 0.6 mg 8-01 tablet by [facility] of tablet 00:00: mouth in [place] the Medical morning. Branch losartan 50 2021-0 Yes [id number] 50mg Take 1 [facility] mg tablet 8-01 tablet by [facility] o f 00:00: mouth in [place] the Medical morning. Branch allopurinoL 2-0 Yes [id number] 100mg Take 1 [facility] 100 mg 8-01 tablet by [facility] of tablet 00:00: mouth in [place] the Medical morning. Branch colchicine 2-0 Yes [id number] .6mg Take 1 [facility] 0.6 mg 8-01 tablet by [facility] of tablet 00:00: mouth in [place] the Medical morning. Branch losartan 50 2-0 Yes [id number] 50mg Take 1 [facility] mg tablet 8-01 tablet by [facility] o f 00:00: mouth in [place] the Medical morning. Branch allopurinoL 2-0 Yes [id number] 100mg Take 1 [facility] 100 mg 8-01 tablet by [facility] of tablet 00:00: mouth in [place] the Medical morning. Branch colchicine 2-0 Yes [id number] .6mg Take 1 [facility] 0.6 mg 8-01 tablet by [facility] of tablet 00:00: mouth in [place] the Medical morning. Branch losartan 50 2022-0 Yes [id number] 50mg Take 1 [facility] mg tablet 8-01 tablet by ity o f 00:00: mouth in [place] 00 the Medical morning. Branch allopurinoL 2-0 Yes [id number] 100mg Take 1 [facility] 100 mg 8-01 tablet by [facility] of tablet 00:00: mouth in [place] the Medical morning. Branch colchicine 2-0 Yes [id number] .6mg Take 1 [facility] 0.6 mg 8-01 tablet by [facility] of tablet 00:00: mouth in [place] the Medical morning. Branch losartan 50 2-0 Yes [id number] 50mg Take 1 [facility] mg tablet 8-01 tablet by ity o f 00:00: mouth in [place] the Medical morning. Branch allopurinoL 2-0 Yes [id number] 100mg Take 1 [facility] 100 mg 8-01 tablet by [facility] of tablet 00:00: mouth in [place] the Medical morning. Branch colchicine 2-0 Yes [id number] .6mg Take 1 [facility] 0.6 mg 8-01 tablet by [facility] of tablet 00:00: mouth in [place] the Medical morning. Branch allopurinoL 2-0 Yes [id number] 100mg Take 1 [facility] 100 mg 8-01 tablet by [facility] of tablet 00:00: mouth in [place] the Medical morning. Branch colchicine 2-0 Yes [id number] .6mg Take 1 [facility] 0.6 mg 8-01 tablet by [facility] of tablet 00:00: mouth in [place] the Medical morning. Branch allopurinoL 2-0 Yes [id number] 100mg Take 1 [facility] 100 mg 8-01 tablet by [facility] of tablet 00:00: mouth in [place] the Medical morning. Branch colchicine 2-0 Yes [id number] .6mg Take 1 [facility] 0.6 mg 8-01 tablet by [facility] of tablet 00:00: mouth in [place] the Medical morning. Branch allopurinoL 2022-0 Yes [id number] 100mg Take 1 [facility] 100 mg 8-01 tablet by [facility] of tablet 00:00: mouth in [place] 00 the Medical morning. Branch colchicine 2-0 Yes [id number] .6mg Take 1 [facility] 0.6 mg 8-01 tablet by [facility] of tablet 00:00: mouth in [place] 00 the Medical morning. Branch allopurinoL 2022-0 Yes [id number] 100mg Take 1 [facility] 100 mg 8-01 tablet by [facility] of tablet 00:00: mouth in [place] the Medical morning. Branch colchicine 2-0 Yes [id number] .6mg Take 1 [facility] 0.6 mg 8-01 tablet by [facility] of tablet 00:00: mouth in [place] the Medical morning. Branch allopurinoL 2022-0 Yes [id number] 100mg Take 1 [facility] 100 mg 8-01 tablet by [facility] of tablet 00:00: mouth in [place] the Medical morning. Branch colchicine 2-0 Yes [id number] .6mg Take 1 [facility] 0.6 mg 8-01 tablet by [facility] of tablet 00:00: mouth in [place] the Medical morning. Branch allopurinoL 2022-0 Yes [id number] 100mg Take 1 [facility] 100 mg 8-01 tablet by [facility] of tablet 00:00: mouth in [place] the Medical morning. Branch colchicine 2-0 Yes [id number] .6mg Take 1 [facility] 0.6 mg 8-01 tablet by [facility] of tablet 00:00: mouth in [place] the Medical morning. Branch allopurinoL 2-0 Yes [id number] 100mg Take 1 [facility] 100 mg 8-01 tablet by [facility] of tablet 00:00: mouth in [place] the Medical morning. Branch colchicine 2-0 Yes [id number] .6mg Take 1 [facility] 0.6 mg 8-01 tablet by [facility] of tablet 00:00: mouth in [place] the Medical morning. Branch allopurinoL 2022-0 Yes [id number] 100mg Take 1 [facility] 100 mg 8-01 tablet by [facility]y of tablet 00:00: mouth in [place] the Medical morning. Branch colchicine 2-0 Yes [id number] .6mg Take 1 [facility] 0.6 mg 8-01 tablet by [facility] of tablet 00:00: mouth in [place] the Medical morning. Branch allopurinoL 2022-0 Yes [id number] 100mg Take 1 [facility] 100 mg 8-01 tablet by [facility] of tablet 00:00: mouth in [place] the Medical morning. Branch colchicine 2022-0 Yes [id number] .6mg Take 1 [facility] 0.6 mg 8-01 tablet by [facility]y of tablet 00:00: mouth in [place] the Medical morning. Branch allopurinoL 2022-0 Yes [id number] 100mg Take 1 [facility] 100 mg 8-01 tablet by [facility] of tablet 00:00: mouth in [place] the Medical morning. Branch colchicine 2022-0 Yes [id number] .6mg Take 1 [facility] 0.6 mg 8-01 tablet by [facility]y of tablet 00:00: mouth in [place] the Medical morning. Branch allopurinoL 2022-0 Yes [id number] 100mg Take 1 [facility] 100 mg 8-01 tablet by it[facility] of tablet 00:00: mouth in [place] the Medical morning. Branch colchicine 2022-0 Yes [id number] .6mg Take 1 [facility] 0.6 mg 8-01 tablet by [facility]y of tablet 00:00: mouth in [place] the Medical morning. Branch allopurinoL 2022-0 Yes [id number] 100mg Take 1 [facility] 100 mg 8-01 tablet by it[facility] of tablet 00:00: mouth in [place] the Medical morning. Branch colchicine 2-0 Yes [id number] .6mg Take 1 [facility] 0.6 mg 8-01 tablet by [facility] of tablet 00:00: mouth in [place] the Medical morning. Branch allopurinoL 2-0 Yes [id number] 100mg Take 1 [facility] 100 mg 8-01 tablet by it[facility] of tablet 00:00: mouth in [place] the Medical morning. Branch colchicine 2-0 Yes [id number] .6mg Take 1 [facility] 0.6 mg 8-01 tablet by ity of tablet 00:00: mouth in [place] the Medical morning. Branch allopurinoL 2022-0 Yes [id number] 100mg Take 1 [facility] 100 mg 8-01 tablet by [facility] of tablet 00:00: mouth in [place] the Medical morning. Branch colchicine 2022-0 Yes [id number] .6mg Take 1 [facility] 0.6 mg 8-01 tablet by ity of tablet 00:00: mouth in [place] the Medical morning. Branch allopurinoL 2022-0 Yes [id number] 100mg Take 1 [facility] 100 mg 8-01 tablet by ity of tablet 00:00: mouth in [place] the Medical morning. Branch colchicine 2022-0 Yes [id number] .6mg Take 1 [facility] 0.6 mg 8-01 tablet by ity of tablet 00:00: mouth in [place] 00 the Medical morning. Branch allopurinoL 2022-0 Yes [id number] 100mg Take 1 [facility] 100 mg 8-01 tablet by [facility] of tablet 00:00: mouth in [place] 00 the Medical morning. Branch colchicine 2-0 Yes [id number] .6mg Take 1 [facility] 0.6 mg 8-01 tablet by [facility]y of tablet 00:00: mouth in [place] the Medical morning. Branch allopurinoL 2-0 Yes [id number] 100mg Take 1 [facility] 100 mg 8-01 tablet by [facility]y of tablet 00:00: mouth in [place] the Medical morning. Branch colchicine 2-0 Yes [id number] .6mg Take 1 [facility] 0.6 mg 8-01 tablet by [facility]y of tablet 00:00: mouth in [place] the Medical morning. Branch allopurinoL 2-0 Yes [id number] 100mg Take 1 [facility] 100 mg 8-01 tablet by [facility] of tablet 00:00: mouth in [place] the Medical morning. Branch colchicine 2-0 Yes [id number] .6mg Take 1 [facility] 0.6 mg 8-01 tablet by [facility] of tablet 00:00: mouth in [place] the Medical morning. Branch allopurinoL 2-0 Yes [id number] 100mg Take 1 [facility] 100 mg 8-01 tablet by [facility] of tablet 00:00: mouth in [place] the Medical morning. Branch colchicine 2-0 Yes [id number] .6mg Take 1 [facility] 0.6 mg 8-01 tablet by [facility] of tablet 00:00: mouth in [place] the Medical morning. Branch allopurinoL 2-0 Yes [id number] 100mg Take 1 [facility] 100 mg 8-01 tablet by [facility] of tablet 00:00: mouth in [place] the Medical morning. Branch colchicine 2022-0 Yes [id number] .6mg Take 1 [facility] 0.6 mg 8-01 tablet by ity of tablet 00:00: mouth in [place] the Medical morning. Branch allopurinoL 2022-0 Yes [id number] 100mg Take 1 [facility] 100 mg 8-01 tablet by [facility] of tablet 00:00: mouth in [place] 00 the Medical morning. Branch colchicine 2022-0 Yes [id number] .6mg Take 1 [facility] 0.6 mg 8-01 tablet by [facility] of tablet 00:00: mouth in [place] 00 the Medical morning. Branch allopurinoL 2022-0 Yes [id number] 100mg Take 1 [facility] 100 mg 8-01 tablet by [facility] of tablet 00:00: mouth in [place] 00 the Medical morning. Branch colchicine 2-0 Yes [id number] .6mg Take 1 [facility] 0.6 mg 8-01 tablet by [facility] of tablet 00:00: mouth in [place] the Medical morning. Branch allopurinoL 2-0 Yes [id number] 100mg Take 1 [facility] 100 mg 8-01 tablet by [facility] of tablet 00:00: mouth in [place] the Medical morning. Branch colchicine 2-0 Yes [id number] .6mg Take 1 [facility] 0.6 mg 8-01 tablet by [facility] of tablet 00:00: mouth in [place] the Medical morning. Branch allopurinoL 2-0 Yes [id number] 100mg Take 1 [facility] 100 mg 8-01 tablet by [facility] of tablet 00:00: mouth in [place] the Medical morning. Branch colchicine 2-0 Yes [id number] .6mg Take 1 [facility] 0.6 mg 8-01 tablet by [facility] of tablet 00:00: mouth in [place] the Medical morning. Branch allopurinoL 2-0 Yes [id number] 100mg Take 1 [facility] 100 mg 8-01 tablet by [facility] of tablet 00:00: mouth in [place] the Medical morning. Branch colchicine 2-0 Yes [id number] .6mg Take 1 [facility] 0.6 mg 8-01 tablet by [facility] of tablet 00:00: mouth in [place] the Medical morning. Branch allopurinoL 2-0 Yes [id number] 100mg Take 1 [facility] 100 mg 8-01 tablet by [facility] of tablet 00:00: mouth in [place] the Medical morning. Branch colchicine 2-0 Yes [id number] .6mg Take 1 [facility] 0.6 mg 8-01 tablet by [facility] of tablet 00:00: mouth in [place] the Medical morning. Branch allopurinoL 2022-0 Yes [id number] 100mg Take 1 [facility] 100 mg 8-01 tablet by [facility] of tablet 00:00: mouth in [place] 00 the Medical morning. Branch colchicine 2022-0 Yes [id number] .6mg Take 1 [facility] 0.6 mg 8-01 tablet by [facility] of tablet 00:00: mouth in [place] 00 the Medical morning. Branch allopurinoL 2022-0 Yes [id number] 100mg Take 1 [facility] 100 mg 8-01 tablet by [facility] of tablet 00:00: mouth in [place] the Medical morning. Branch colchicine 2-0 Yes [id number] .6mg Take 1 [facility] 0.6 mg 8-01 tablet by [facility] of tablet 00:00: mouth in [place] the Medical morning. Branch allopurinoL 2-0 Yes [id number] 100mg Take 1 [facility] 100 mg 8-01 tablet by [facility] of tablet 00:00: mouth in [place] the Medical morning. Branch colchicine 2-0 Yes [id number] .6mg Take 1 [facility] 0.6 mg 8-01 tablet by ity of tablet 00:00: mouth in [place] the Medical morning. Branch allopurinoL 2-0 Yes [id number] 100mg Take 1 [facility] 100 mg 8-01 tablet by it[facility] of tablet 00:00: mouth in [place] the Medical morning. Branch colchicine 2-0 Yes [id number] .6mg Take 1 [facility] 0.6 mg 8-01 tablet by ity of tablet 00:00: mouth in [place] the Medical morning. Branch allopurinoL 2-0 Yes [id number] 100mg Take 1 [facility] 100 mg 8-01 tablet by [facility] of tablet 00:00: mouth in [place] the Medical morning. Branch colchicine 2-0 Yes [id number] .6mg Take 1 [facility] 0.6 mg 8-01 tablet by it[facility] of tablet 00:00: mouth in [place] the Medical morning. Branch allopurinoL 2-0 Yes [id number] 100mg Take 1 [facility] 100 mg 8-01 tablet by ity of tablet 00:00: mouth in [place] the Medical morning. Branch colchicine 2-0 Yes [id number] .6mg Take 1 [facility] 0.6 mg 8-01 tablet by ity of tablet 00:00: mouth in [place] the Medical morning. Branch allopurinoL 2022-0 Yes [id number] 100mg Take 1 [facility] 100 mg 8-01 tablet by it[facility] of tablet 00:00: mouth in [place] the Medical morning. Branch colchicine 2022-0 Yes [id number] .6mg Take 1 [facility] 0.6 mg 8-01 tablet by ity of tablet 00:00: mouth in [place] the Medical morning. Branch allopurinoL 2022-0 Yes [id number] 100mg Take 1 [facility] 100 mg 8-01 tablet by ity of tablet 00:00: mouth in [place] 00 the Medical morning. Branch colchicine 2-0 Yes [id number] .6mg Take 1 [facility] 0.6 mg 8-01 tablet by ity of tablet 00:00: mouth in [place] the Medical morning. Branch allopurinoL 2-0 Yes [id number] 100mg Take 1 [facility] 100 mg 8-01 tablet by ity of tablet 00:00: mouth in [place] the Medical morning. Branch colchicine 2-0 Yes [id number] .6mg Take 1 [facility] 0.6 mg 8-01 tablet by ity of tablet 00:00: mouth in [place] the Medical morning. Branch allopurinoL 2022-0 Yes [id number] 100mg Take 1 [facility] 100 mg 8-01 tablet by ity of tablet 00:00: mouth in [place] the Medical morning. Branch colchicine 2-0 Yes [id number] .6mg Take 1 [facility] 0.6 mg 8-01 tablet by it[facility] of tablet 00:00: mouth in [place] the Medical morning. Branch allopurinoL 2-0 Yes [id number] 100mg Take 1 [facility] 100 mg 8-01 tablet by [facility]y of tablet 00:00: mouth in [place] the Medical morning. Branch colchicine 2-0 Yes [id number] .6mg Take 1 [facility] 0.6 mg 8-01 tablet by [facility] of tablet 00:00: mouth in [place] the Medical morning. Branch allopurinoL 2-0 Yes [id number] 100mg Take 1 [facility] 100 mg 8-01 tablet by it[facility] of tablet 00:00: mouth in [place] the Medical morning. Branch colchicine 2-0 Yes [id number] .6mg Take 1 [facility] 0.6 mg 8-01 tablet by ity of tablet 00:00: mouth in [place] the Medical morning. Branch allopurinoL 2022-0 Yes [id number] 100mg Take 1 [facility] 100 mg 8-01 tablet by it[facility] of tablet 00:00: mouth in [place] 00 the Medical morning. Branch colchicine 2022-0 Yes [id number] .6mg Take 1 [facility] 0.6 mg 8-01 tablet by it[facility] of tablet 00:00: mouth in [place] 00 the Medical morning. Branch allopurinoL 2022-0 Yes [id number] 100mg Take 1 [facility] 100 mg 8-01 tablet by it[facility] of tablet 00:00: mouth in [place] 00 the Medical morning. Branch colchicine 2-0 Yes [id number] .6mg Take 1 [facility] 0.6 mg 8-01 tablet by it[facility] of tablet 00:00: mouth in [place] the Medical morning. Branch allopurinoL 2022-0 Yes [id number] 100mg Take 1 [facility] 100 mg 8-01 tablet by it[facility] of tablet 00:00: mouth in [place] the Medical morning. Branch colchicine 2-0 Yes [id number] .6mg Take 1 [facility] 0.6 mg 8-01 tablet by it[facility] of tablet 00:00: mouth in [place] 00 the Medical morning. Branch allopurinoL 2022-0 Yes [id number] 100mg Take 1 [facility] 100 mg 8-01 tablet by it[facility] of tablet 00:00: mouth in [place] the Medical morning. Branch colchicine 2-0 Yes [id number] .6mg Take 1 [facility] 0.6 mg 8-01 tablet by ity of tablet 00:00: mouth in [place] the Medical morning. Branch allopurinoL 2-0 Yes [id number] 100mg Take 1 [facility] 100 mg 8-01 tablet by ity of tablet 00:00: mouth in [place] the Medical morning. Branch colchicine 2-0 Yes [id number] .6mg Take 1 [facility] 0.6 mg 8-01 tablet by ity of tablet 00:00: mouth in [place] the Medical morning. Branch allopurinoL 2-0 Yes [id number] 100mg Take 1 [facility] 100 mg 8-01 tablet by ity of tablet 00:00: mouth in [place] the Medical morning. Branch colchicine 2-0 Yes [id number] .6mg Take 1 [facility] 0.6 mg 8-01 tablet by ity of tablet 00:00: mouth in [place] the Medical morning. Branch allopurinoL 2022-0 Yes [id number] 100mg Take 1 [facility] 100 mg 8-01 tablet by it[facility] of tablet 00:00: mouth in [place] 00 the Medical morning. Branch colchicine 2022-0 Yes [id number] .6mg Take 1 [facility] 0.6 mg 8-01 tablet by ity of tablet 00:00: mouth in [place] 00 the Medical morning. Branch colchicine 2022-0 Yes [id number] .6mg Take 1 [facility] 0.6 mg 8-01 tablet by ity of tablet 00:00: mouth in [place] 00 the Medical morning. Branch colchicine 2-0 Yes [id number] .6mg Take 1 [facility] 0.6 mg 8-01 tablet by ity of tablet 00:00: mouth in [place] 00 the Medical morning. Branch colchicine 2021-0 Yes [id number] .6mg Take 1 [facility] 0.6 mg 8-01 tablet by ity of tablet 00:00: mouth in [place] 00 the Medical morning. Branch colchicine 2-0 Yes [id number] .6mg Take 1 [facility] 0.6 mg 8-01 tablet by ity of tablet 00:00: mouth in [place] 00 the Medical morning. Branch colchicine 2-0 Yes [id number] .6mg Take 1 [facility] 0.6 mg 8-01 tablet by ity of tablet 00:00: mouth in [place] 00 the Medical morning. Branch colchicine 2021-0 Yes [id number] .6mg Take 1 [facility] 0.6 mg 8-01 tablet by ity of tablet 00:00: mouth in [place] 00 the Medical morning. Branch colchicine 2021-0 Yes [id number] .6mg Take 1 [facility] 0.6 mg 8-01 tablet by ity of tablet 00:00: mouth in [place] 00 the Medical morning. Branch colchicine 2021-0 Yes [id number] .6mg Take 1 [facility] 0.6 mg 8-01 tablet by ity of tablet 00:00: mouth in [place] 00 the Medical morning. Branch colchicine 2021-0 Yes [id number] .6mg Take 1 [facility] 0.6 mg 8-01 tablet by ity of tablet 00:00: mouth in [place] 00 the Medical morning. Branch colchicine 2021-0 Yes [id number] .6mg Take 1 [facility] 0.6 mg 8-01 tablet by ity of tablet 00:00: mouth in [place] 00 the Medical morning. Branch colchicine 2-0 2022- No [id number] .6mg Take 1 [facility] 0.6 mg 8-01 10-31 tablet by [facility]y of tablet 00:00: 00:00 mouth in [place] 00 :00 the Medical morning. Branch colchicine 2022-0 2022- No [id number] .6mg Take 1 [facility] 0.6 mg 8-01 10-31 tablet by [facility] of tablet 00:00: 00:00 mouth in [place] 00 :00 the Medical morning. Branch allopurinoL 2022-0 2- No [id number] 100mg Take 1 [facility] 100 mg 8-12 02-25 tablet by ity of tablet 00:00: 00:00 mouth in [place] 00 :00 the Medical morning. Branch allopurinoL 2-0 2- No [id number] 100mg Take 1 [facility] 100 mg 8- 10-25 tablet by ity of tablet 00:00: 00:00 mouth in [place] 00 :00 the Medical morning. Branch allopurinoL 2021-0 2- No [id number] 100mg Take 1 [facility] 100 mg 8- 10-25 tablet by [facility]y of tablet 00:00: 00:00 mouth in [place] 00 :00 the Medical morning. Branch losartan 50 2021-0 2- No [id number] 50mg Take 1 [facility] mg tablet 06-2324 tablet by [facility]y of 00:00: 00:00 mouth in [place] 00 :00 the Medical morning. Branch losartan 50 2021-0 2- No [id number] 50mg Take 1 [facility] mg tablet 06-23 tablet by ity of 00:00: 00:00 mouth in [place] 00 :00 the Medical morning. Branch flash 2022-0 Yes [id number] 2U 2 Units [facility] glucose 7-25 every 2 ity of sensor 00:00: (two) [place] (FREESTYLE 00 weeks. Medical CHON 2 Branch SENSOR) Kit flash 2021-0 Yes [id number] 2U 2 Units Univer s glucose 7-25 every 2 ity of sensor 00:00: (two) [place] (FREESTYLE 00 weeks. Medical CHON 2 Branch SENSOR) Kit flash 2022-0 Yes [id number] 2U 2 Units Univer s glucose 7-25 every 2 ity of sensor 00:00: (two) [place] (FREESTYLE 00 weeks. Medical CHON 2 Branch SENSOR) Kit flash 2022-0 Yes [id number] 2U 2 Units Univer s glucose 7-25 every 2 ity of sensor 00:00: (two) [place] (FREESTYLE 00 weeks. Medical CHON 2 Branch SENSOR) Kit flash 2022-0 Yes [id number] 2U 2 Units Univer s glucose 7-25 every 2 ity of sensor 00:00: (two) [place] (FREESTYLE 00 weeks. Medical CHON 2 Branch SENSOR) Kit flash 2022-0 Yes [id number] 2U 2 Units Univer s glucose 7-25 every 2 ity of sensor 00:00: (two) [place] (FREESTYLE 00 weeks. Medical CHON 2 Branch SENSOR) Kit flash 2022-0 Yes [id number] 2U 2 Units Univer s glucose 7-25 every 2 ity of sensor 00:00: (two) [place] (FREESTYLE 00 weeks. Medical CHON 2 Branch SENSOR) Kit flash 2022-0 Yes [id number] 2U 2 Units Univer s glucose 7-25 every 2 ity of sensor 00:00: (two) [place] (FREESTYLE 00 weeks. Medical CHON 2 Branch SENSOR) Kit flash 2022-0 Yes [id number] 2U 2 Units Un[facility] s glucose 7-25 every 2 ity of sensor 00:00: (two) [place] (FREESTYLE 00 weeks. Medical CHON 2 Branch SENSOR) Kit flash 2022-0 Yes [id number] 2U 2 Units Univer s glucose 7-25 every 2 ity of sensor 00:00: (two) [place] (FREESTYLE 00 weeks. Medical CHON 2 Branch SENSOR) Kit flash 2022-0 Yes [id number] 2U 2 Units Univer s glucose 7-25 every 2 ity of sensor 00:00: (two) [place] (FREESTYLE 00 weeks. Medical CHON 2 Branch SENSOR) Kit flash 2022-0 Yes [id number] 2U 2 Units Univer s glucose 7-25 every 2 ity of sensor 00:00: (two) [place] (FREESTYLE 00 weeks. Medical CHON 2 Branch SENSOR) Kit flash 2022-0 Yes [id number] 2U 2 Units Univer s glucose 7-25 every 2 ity of sensor 00:00: (two) [place] (FREESTYLE 00 weeks. Medical CHON 2 Branch SENSOR) Kit flash 2022-0 Yes [id number] 2U 2 Units Univer s glucose 7-25 every 2 ity of sensor 00:00: (two) [place] (FREESTYLE 00 weeks. Medical CHON 2 Branch SENSOR) Kit flash 2022-0 Yes [id number] 2U 2 Units Un[facility] glucose 7-25 every 2 ity of sensor 00:00: (two) [place] (FREESTYLE 00 weeks. Medical CHON 2 Branch SENSOR) Kit flash 2022-0 Yes [id number] 2U 2 Units Un[facility] glucose 7-25 every 2 ity of sensor 00:00: (two) [place] (FREESTYLE 00 weeks. Medical CHON 2 Branch SENSOR) Kit flash 2021-0 Yes [id number] 2U 2 Units Un[facility] s glucose 7-25 every 2 ity of sensor 00:00: (two) [place] (FREESTYLE 00 weeks. Medical CHON 2 Branch SENSOR) Kit flash 2021-0 Yes [id number] 2U 2 Units Un[facility] glucose 7-25 every 2 ity of sensor 00:00: (two) [place] (FREESTYLE 00 weeks. Medical CHON 2 Branch SENSOR) Kit flash 2021-0 Yes [id number] 2U 2 Units Un[facility] s glucose 7-25 every 2 ity of sensor 00:00: (two) [place] (FREESTYLE 00 weeks. Medical CHON 2 Branch SENSOR) Kit flash 2021- 2022- No [id number] 2U 2 Units Un[facility] rs glucose 7-25 10-05 every 2 ity of sensor 00:00: 00:00 (two) [place] (FREESTYLE 00 :00 weeks. Medical CHON 2 Branch SENSOR) Kit flash 2021-0 2022- No [id number] 2U 2 Units Un[facility] rs glucose 7-25 10-05 every 2 ity of sensor 00:00: 00:00 (two) [place] (FREESTYLE 00 :00 weeks. Medical CHON 2 Branch SENSOR) Kit flash 2021-0 2022- No [id number] 2U 2 Units [facility] rs glucose 7-25 10-05 every 2 ity of sensor 00:00: 00:00 (two) [place] (FREESTYLE 00 :00 weeks. Medical CHON 2 Branch SENSOR) Kit ipratropium Yes USE 1 Unive rs -albuteroL [...] NEEDED FOR solution SHORTNESS OF BREATH ipratropium 2021-0 Yes USE 1 Unive rs [...] solution SHORTNESS OF BREATH flash 0 Yes [id number] 1U 1 Units Un[facility] s glucose 5-02 SEE-INSTRU ity of scanning 00:00: CTIONS. [place] reader 00 Use per Medical (FREESTYLE device Branch CHON 2 instructio READER) ns Misc flash Yes [id number] 1U 1 Units Univer s glucose 5-02 SEE-INSTRU ity of scanning 00:00: CTIONS. [place] reader 00 Use per Medical (FREESTYLE device Branch CHON 2 instructio READER) ns Misc flash 0 Yes [id number] 1U 1 Units Un[facility] s glucose 5-02 SEE-INSTRU ity of scanning 00:00: CTIONS. [place] reader 00 Use per Medical (FREESTYLE device Branch CHON 2 instructio READER) ns Misc flash 2021-0 Yes [id number] 1U 1 Units Univer s glucose 5-02 SEE-INSTRU ity of scanning 00:00: CTIONS. [place] reader 00 Use per Medical (FREESTYLE device Branch CHON 2 instructio READER) ns Misc flash 2021-0 Yes [id number] 1U 1 Units Univer s glucose 5-02 SEE-INSTRU ity of scanning 00:00: CTIONS. [place] reader 00 Use per Medical (FREESTYLE device Branch CHON 2 instructio READER) ns Misc flash 0 Yes [id number] 1U 1 Units Univer s glucose 5-02 SEE-INSTRU ity of scanning 00:00: CTIONS. [place] reader 00 Use per Medical (FREESTYLE device Branch CHON 2 instructio READER) ns Misc flash 2021-0 Yes [id number] 1U 1 Units Univer s glucose 5-02 SEE-INSTRU ity of scanning 00:00: CTIONS. [place] reader 00 Use per Medical (FREESTYLE device Branch CHON 2 instructio READER) ns Misc flash 0 Yes [id number] 1U 1 Units Univer s glucose 5-02 SEE-INSTRU ity of scanning 00:00: CTIONS. [place] reader 00 Use per Medical (FREESTYLE device Branch CHON 2 instructio READER) ns Misc flash Yes [id number] 1U 1 Units Univer s glucose 5-02 SEE-INSTRU ity of scanning 00:00: CTIONS. [place] reader 00 Use per Medical (FREESTYLE device Branch CHON 2 instructio READER) ns Misc flash Yes [id number] 1U 1 Units Univer s glucose 5-02 SEE-INSTRU ity of scanning 00:00: CTIONS. [place] reader 00 Use per Medical (FREESTYLE device Branch CHON 2 instructio READER) ns Misc flash 0 Yes [id number] 1U 1 Units Univer s glucose 5-02 SEE-INSTRU ity of scanning 00:00: CTIONS. [place] reader 00 Use per Medical (FREESTYLE device Branch CHON 2 instructio READER) ns Misc flash 2021-0 Yes [id number] 1U 1 Units Un[facility] s glucose 5-02 SEE-INSTRU ity of scanning 00:00: CTIONS. [place] reader 00 Use per Medical (FREESTYLE device Branch CHON 2 instructio READER) ns Misc flash 2021- No [id number] 1U 1 Units Un[facility] rs glucose 5-02 09-21 SEE-INSTRU ity o f scanning 00:00: 00:00 CTIONS. [place] reader 00 :00 Use per Medical (FREESTYLE device Branch CHON 2 instructio READER) ns Misc flash 0 2021- No [id number] 1U 1 Units Un[facility] rs glucose 03-24 SEE-INSTRU ity o f scanning 00:00: 00:00 CTIONS. [place] reader 00 :00 Use per Medical (FREESTYLE device Branch CHON 2 instructio READER) ns Misc atorvastati Yes [id number] 80mg Take 1 [facility] n 80 mg 4-28 tablet by ity of tablet 00:00: mouth at [place] 00 bedtime. Medical Branch KCL 20 mEq Yes [id number] 20meq Take 1 [facility] tablet 4-28 tablet by ity of 00:00: mouth [place] 00 daily. Medical Branch metoprolol Yes [id number] 50mg Take 1 U nivers succinate 4-28 tablet by ity o f XL 50 mg 24 00:00: mouth [place] hr tablet 00 daily. Medical Branch nitroglycer Yes [id number] .4mg Place 1 [facility] in 0.4 mg 4-28 tablet [facility] of sublingual 00:00: under the [place] tablet 00 tongue Medical every 5 Branch (five) minutes as needed for Chest pain. levothyroxi Yes [id number] 150ug Take 1 [facility] ne 150 mcg 4-28 tablet by [facility] of tablet 00:00: mouth [place] 00 every Medical morning. Branch atorvastati Yes [id number] 80mg Take 1 [facility] n 80 mg 4-28 tablet by [facility] of tablet 00:00: mouth at [place] 00 bedtime. [facility] KCL 20 mEq Yes [id number] 20meq Take 1 [facility] tablet 4-28 tablet by [facility] of 00:00: mouth [place] 00 daily. [facility] metoprolol Yes [id number] 50mg Take 1 [facility] nivers succinate 4-28 tablet by ity o f XL 50 mg 24 00:00: mouth [place] hr tablet 00 daily. [facility] nitroglycer Yes [id number] .4mg Place 1 [facility] in 0.4 mg 4-28 tablet [facility] of sublingual 00:00: under the [place] tablet 00 tongue Medical every 5 Branch (five) minutes as needed for Chest pain. levothyroxi Yes [id number] 150ug Take 1 [facility] ne 150 mcg 4-28 tablet by [facility] of tablet 00:00: mouth [place] 00 every Medical morning. Branch atorvastati Yes [id number] 80mg Take 1 [facility] n 80 mg 4-28 tablet by [facility] of tablet 00:00: mouth at [place] 00 bedtime. [facility] KCL 20 mEq Yes [id number] 20meq Take 1 [facility] tablet 4-28 tablet by [facility] of 00:00: mouth [place] 00 daily. [facility] metoprolol Yes [id number] 50mg Take 1 [facility] nivers succinate 4-28 tablet by ity o f XL 50 mg 24 00:00: mouth [place] hr tablet 00 daily. [facility] nitroglycer Yes [id number] .4mg Place 1 [facility] in 0.4 mg 4-28 tablet [facility] of sublingual 00:00: under the [place] tablet 00 tongue Medical every 5 Branch (five) minutes as needed for Chest pain. levothyroxi Yes [id number] 150ug Take 1 [facility] ne 150 mcg 4-28 tablet by [facility] of tablet 00:00: mouth [place] 00 every Medical morning. Branch atorvastati Yes [id number] 80mg Take 1 [facility] n 80 mg 4-28 tablet by [facility] of tablet 00:00: mouth at [place] 00 bedtime. [facility] KCL 20 mEq Yes [id number] 20meq Take 1 [facility] tablet 4-28 tablet by [facility] of 00:00: mouth [place] 00 daily. [facility] metoprolol Yes [id number] 50mg Take 1 [facility] nivers succinate 4-28 tablet by ity o f XL 50 mg 24 00:00: mouth [place] hr tablet 00 daily. [facility] nitroglycer Yes [id number] .4mg Place 1 [facility] in 0.4 mg 4-28 tablet [facility] of sublingual 00:00: under the [place] tablet 00 tongue Medical every 5 Branch (five) minutes as needed for Chest pain. levothyroxi Yes [id number] 150ug Take 1 [facility] ne 150 mcg 4-28 tablet by [facility] of tablet 00:00: mouth [place] 00 every Medical morning. Branch atorvastati Yes [id number] 80mg Take 1 [facility] n 80 mg 4-28 tablet by [facility] of tablet 00:00: mouth at [place] 00 bedtime. [facility] KCL 20 mEq Yes [id number] 20meq Take 1 [facility] tablet 4-28 tablet by [facility] of 00:00: mouth [place] 00 daily. [facility] metoprolol Yes [id number] 50mg Take 1 [facility] nivers succinate 4-28 tablet by [facility] o f XL 50 mg 24 00:00: mouth [place] hr tablet 00 daily. [facility] nitroglycer Yes [id number] .4mg Place 1 [facility] in 0.4 mg 4-28 tablet [facility] of sublingual 00:00: under the [place] tablet 00 tongue Medical every 5 Branch (five) minutes as needed for Chest pain. levothyroxi Yes [id number] 150ug Take 1 [facility] ne 150 mcg 4-28 tablet by [facility] of tablet 00:00: mouth [place] 00 every Medical morning. Branch atorvastati Yes [id number] 80mg Take 1 [facility] n 80 mg 4-28 tablet by [facility] of tablet 00:00: mouth at [place] 00 bedtime. [facility] KCL 20 mEq Yes [id number] 20meq Take 1 [facility] tablet 4-28 tablet by [facility] of 00:00: mouth [place] 00 daily. [facility] metoprolol Yes [id number] 50mg Take 1 [facility] nivers succinate 4-28 tablet by [facility] o f XL 50 mg 24 00:00: mouth [place] hr tablet 00 daily. [facility] nitroglycer Yes [id number] .4mg Place 1 [facility] in 0.4 mg 4-28 tablet [facility] of sublingual 00:00: under the [place] tablet 00 tongue Medical every 5 Branch (five) minutes as needed for Chest pain. levothyroxi Yes [id number] 150ug Take 1 [facility] ne 150 mcg 4-28 tablet by [facility] of tablet 00:00: mouth [place] 00 every Medical morning. Branch atorvastati Yes [id number] 80mg Take 1 [facility] n 80 mg 4-28 tablet by [facility] of tablet 00:00: mouth at [place] 00 bedtime. [facility] KCL 20 mEq Yes [id number] 20meq Take 1 [facility] tablet 4-28 tablet by [facility] of 00:00: mouth [place] 00 daily. [facility] metoprolol Yes [id number] 50mg Take 1 [facility] nivers succinate 4-28 tablet by it[facility] o f XL 50 mg 24 00:00: mouth [place] hr tablet 00 daily. [facility] nitroglycer Yes [id number] .4mg Place 1 [facility] in 0.4 mg 4-28 tablet [facility] of sublingual 00:00: under the [place] tablet 00 tongue Medical every 5 Branch (five) minutes as needed for Chest pain. levothyroxi Yes [id number] 150ug Take 1 [facility] ne 150 mcg 4-28 tablet by [facility] of tablet 00:00: mouth [place] 00 every Medical morning. Branch atorvastati Yes [id number] 80mg Take 1 [facility] n 80 mg 4-28 tablet by [facility] of tablet 00:00: mouth at [place] 00 bedtime. [facility] KCL 20 mEq Yes [id number] 20meq Take 1 [facility] tablet 4-28 tablet by [facility] of 00:00: mouth [place] 00 daily. [facility] metoprolol Yes [id number] 50mg Take 1 [facility] nivers succinate 4-28 tablet by ity o f XL 50 mg 24 00:00: mouth [place] hr tablet 00 daily. [facility] nitroglycer Yes [id number] .4mg Place 1 [facility] in 0.4 mg 4-28 tablet [facility] of sublingual 00:00: under the [place] tablet 00 tongue Medical every 5 Branch (five) minutes as needed for Chest pain. levothyroxi Yes [id number] 150ug Take 1 [facility] ne 150 mcg 4-28 tablet by [facility] of tablet 00:00: mouth [place] 00 every Medical morning. Branch atorvastati Yes [id number] 80mg Take 1 [facility] n 80 mg 4-28 tablet by [facility] of tablet 00:00: mouth at [place] 00 bedtime. [facility] KCL 20 mEq Yes [id number] 20meq Take 1 [facility] tablet 4-28 tablet by [facility] of 00:00: mouth [place] 00 daily. [facility] metoprolol Yes [id number] 50mg Take 1 [facility] nivers succinate 4-28 tablet by ity o f XL 50 mg 24 00:00: mouth [place] hr tablet 00 daily. [facility] nitroglycer Yes [id number] .4mg Place 1 [facility] in 0.4 mg 4-28 tablet [facility] of sublingual 00:00: under the [place] tablet 00 tongue Medical every 5 Branch (five) minutes as needed for Chest pain. levothyroxi Yes [id number] 150ug Take 1 [facility] ne 150 mcg 4-28 tablet by [facility] of tablet 00:00: mouth [place] 00 every Medical morning. Branch atorvastati Yes [id number] 80mg Take 1 [facility] n 80 mg 4-28 tablet by [facility] of tablet 00:00: mouth at [place] 00 bedtime. [facility] KCL 20 mEq Yes [id number] 20meq Take 1 [facility] tablet 4-28 tablet by [facility] of 00:00: mouth [place] 00 daily. [facility] metoprolol Yes [id number] 50mg Take 1 [facility] nivers succinate 4-28 tablet by ity o f XL 50 mg 24 00:00: mouth [place] hr tablet 00 daily. [facility] nitroglycer Yes [id number] .4mg Place 1 [facility] in 0.4 mg 4-28 tablet [facility] of sublingual 00:00: under the [place] tablet 00 tongue Medical every 5 Branch (five) minutes as needed for Chest pain. levothyroxi Yes [id number] 150ug Take 1 [facility] ne 150 mcg 4-28 tablet by [facility] of tablet 00:00: mouth [place] 00 every Medical morning. Branch atorvastati Yes [id number] 80mg Take 1 [facility] n 80 mg 4-28 tablet by [facility] of tablet 00:00: mouth at [place] 00 bedtime. [facility] KCL 20 mEq Yes [id number] 20meq Take 1 [facility] tablet 4-28 tablet by [facility] of 00:00: mouth [place] 00 daily. [facility] metoprolol Yes [id number] 50mg Take 1 [facility] nivers succinate 4-28 tablet by ity o f XL 50 mg 24 00:00: mouth [place] hr tablet 00 daily. [facility] nitroglycer Yes [id number] .4mg Place 1 [facility] in 0.4 mg 4-28 tablet [facility] of sublingual 00:00: under the [place] tablet 00 tongue Medical every 5 Branch (five) minutes as needed for Chest pain. levothyroxi Yes [id number] 150ug Take 1 [facility] ne 150 mcg 4-28 tablet by [facility] of tablet 00:00: mouth [place] 00 every Medical morning. Branch atorvastati Yes [id number] 80mg Take 1 [facility] n 80 mg 4-28 tablet by [facility] of tablet 00:00: mouth at [place] 00 bedtime. [facility] KCL 20 mEq Yes [id number] 20meq Take 1 [facility] tablet 4-28 tablet by [facility] of 00:00: mouth [place] 00 daily. [facility] metoprolol Yes [id number] 50mg Take 1 [facility] nivers succinate 4-28 tablet by [facility]y o f XL 50 mg 24 00:00: mouth [place] hr tablet 00 daily. [facility] nitroglycer Yes [id number] .4mg Place 1 [facility] in 0.4 mg 4-28 tablet [facility] of sublingual 00:00: under the [place] tablet 00 tongue Medical every 5 Branch (five) minutes as needed for Chest pain. levothyroxi Yes [id number] 150ug Take 1 [facility] ne 150 mcg 4-28 tablet by [facility] of tablet 00:00: mouth [place] 00 every Medical morning. Branch atorvastati Yes [id number] 80mg Take 1 [facility] n 80 mg 4-28 tablet by [facility] of tablet 00:00: mouth at [place] 00 bedtime. [facility] KCL 20 mEq Yes [id number] 20meq Take 1 [facility] tablet 4-28 tablet by [facility] of 00:00: mouth [place] 00 daily. [facility] metoprolol Yes [id number] 50mg Take 1 [facility] nivers succinate 4-28 tablet by [facility] o f XL 50 mg 24 00:00: mouth [place] hr tablet 00 daily. [facility] nitroglycer Yes [id number] .4mg Place 1 [facility] in 0.4 mg 4-28 tablet [facility] of sublingual 00:00: under the [place] tablet 00 tongue Medical every 5 Branch (five) minutes as needed for Chest pain. levothyroxi Yes [id number] 150ug Take 1 [facility] ne 150 mcg 4-28 tablet by [facility] of tablet 00:00: mouth [place] 00 every Medical morning. Branch atorvastati Yes [id number] 80mg Take 1 [facility] n 80 mg 4-28 tablet by [facility] of tablet 00:00: mouth at [place] 00 bedtime. [facility] KCL 20 mEq Yes [id number] 20meq Take 1 [facility] tablet 4-28 tablet by [facility] of 00:00: mouth [place] 00 daily. [facility] metoprolol Yes [id number] 50mg Take 1 [facility] nivers succinate 4-28 tablet by ity o f XL 50 mg 24 00:00: mouth [place] hr tablet 00 daily. [facility] nitroglycer Yes [id number] .4mg Place 1 [facility] in 0.4 mg 4-28 tablet it[facility] of sublingual 00:00: under the [place] tablet 00 tongue Medical every 5 Branch (five) minutes as needed for Chest pain. levothyroxi Yes [id number] 150ug Take 1 [facility] ne 150 mcg 4-28 tablet by [facility] of tablet 00:00: mouth [place] 00 every Medical morning. Branch atorvastati Yes [id number] 80mg Take 1 [facility] n 80 mg 4-28 tablet by [facility] of tablet 00:00: mouth at [place] 00 bedtime. [facility] KCL 20 mEq Yes [id number] 20meq Take 1 [facility] tablet 4-28 tablet by [facility] of 00:00: mouth [place] 00 daily. [facility] metoprolol Yes [id number] 50mg Take 1 [facility] nivers succinate 4-28 tablet by ity o f XL 50 mg 24 00:00: mouth [place] hr tablet 00 daily. [facility] nitroglycer Yes [id number] .4mg Place 1 [facility] in 0.4 mg 4-28 tablet it[facility] of sublingual 00:00: under the [place] tablet 00 tongue Medical every 5 Branch (five) minutes as needed for Chest pain. levothyroxi Yes [id number] 150ug Take 1 [facility] ne 150 mcg 4-28 tablet by [facility] of tablet 00:00: mouth [place] 00 every Medical morning. Branch atorvastati Yes [id number] 80mg Take 1 [facility] n 80 mg 4-28 tablet by [facility] of tablet 00:00: mouth at [place] 00 bedtime. [facility] KCL 20 mEq Yes [id number] 20meq Take 1 [facility] tablet 4-28 tablet by [facility] of 00:00: mouth [place] 00 daily. [facility] metoprolol Yes [id number] 50mg Take 1 [facility] nivers succinate 4-28 tablet by ity o f XL 50 mg 24 00:00: mouth [place] hr tablet 00 daily. [facility] nitroglycer Yes [id number] .4mg Place 1 [facility] in 0.4 mg 4-28 tablet it[facility] of sublingual 00:00: under the [place] tablet 00 tongue Medical every 5 Branch (five) minutes as needed for Chest pain. levothyroxi Yes [id number] 150ug Take 1 [facility] ne 150 mcg 4-28 tablet by [facility] of tablet 00:00: mouth [place] 00 every Medical morning. Branch atorvastati Yes [id number] 80mg Take 1 [facility] n 80 mg 4-28 tablet by [facility] of tablet 00:00: mouth at [place] 00 bedtime. [facility] KCL 20 mEq 0 Yes [id number] 20meq Take 1 [facility] tablet 4-28 tablet by [facility] of 00:00: mouth [place] 00 daily. [facility] metoprolol Yes [id number] 50mg Take 1 [facility] nivers succinate 4-28 tablet by ity o f XL 50 mg 24 00:00: mouth [place] hr tablet 00 daily. [facility] nitroglycer Yes [id number] .4mg Place 1 [facility] in 0.4 mg 4-28 tablet it[facility] of sublingual 00:00: under the [place] tablet 00 tongue Medical every 5 Branch (five) minutes as needed for Chest pain. levothyroxi 0 Yes [id number] 150ug Take 1 [facility] ne 150 mcg 4-28 tablet by [facility] of tablet 00:00: mouth [place] 00 every Medical morning. Branch atorvastati Yes [id number] 80mg Take 1 [facility] n 80 mg 4-28 tablet by [facility] of tablet 00:00: mouth at [place] 00 bedtime. [facility] KCL 20 mEq 0 Yes [id number] 20meq Take 1 [facility] tablet 4-28 tablet by [facility] of 00:00: mouth [place] 00 daily. [facility] metoprolol 0 Yes [id number] 50mg Take 1 [facility] nivers succinate 4-28 tablet by ity o f XL 50 mg 24 00:00: mouth [place] hr tablet 00 daily. [facility] nitroglycer Yes [id number] .4mg Place 1 [facility] in 0.4 mg 4-28 tablet ity of sublingual 00:00: under the [place] tablet 00 tongue Medical every 5 Branch (five) minutes as needed for Chest pain. levothyroxi Yes [id number] 150ug Take 1 [facility] ne 150 mcg 4-28 tablet by [facility] of tablet 00:00: mouth [place] 00 every Medical morning. Branch atorvastati Yes [id number] 80mg Take 1 [facility] n 80 mg 4-28 tablet by [facility] of tablet 00:00: mouth at [place] 00 bedtime. [facility] KCL 20 mEq Yes [id number] 20meq Take 1 [facility] tablet 4-28 tablet by [facility] of 00:00: mouth [place] 00 daily. [facility] metoprolol Yes [id number] 50mg Take 1 [facility] nivers succinate 4-28 tablet by ity o f XL 50 mg 24 00:00: mouth [place] hr tablet 00 daily. [facility] nitroglycer Yes [id number] .4mg Place 1 [facility] in 0.4 mg 4-28 tablet ity of sublingual 00:00: under the [place] tablet 00 tongue Medical every 5 Branch (five) minutes as needed for Chest pain. levothyroxi Yes [id number] 150ug Take 1 [facility] ne 150 mcg 4-28 tablet by [facility] of tablet 00:00: mouth [place] 00 every Medical morning. Branch atorvastati Yes [id number] 80mg Take 1 [facility] n 80 mg 4-28 tablet by [facility] of tablet 00:00: mouth at [place] 00 bedtime. [facility] KCL 20 mEq Yes [id number] 20meq Take 1 [facility] tablet 4-28 tablet by [facility] of 00:00: mouth [place] 00 daily. [facility] metoprolol Yes [id number] 50mg Take 1 [facility] nivers succinate 4-28 tablet by ity o f XL 50 mg 24 00:00: mouth [place] hr tablet 00 daily. [facility] nitroglycer Yes [id number] .4mg Place 1 [facility] in 0.4 mg 4-28 tablet ity of sublingual 00:00: under the [place] tablet 00 tongue Medical every 5 Branch (five) minutes as needed for Chest pain. levothyroxi Yes [id number] 150ug Take 1 [facility] ne 150 mcg 4-28 tablet by [facility] of tablet 00:00: mouth [place] 00 every Medical morning. Branch atorvastati Yes [id number] 80mg Take 1 [facility] n 80 mg 4-28 tablet by [facility] of tablet 00:00: mouth at [place] 00 bedtime. [facility] KCL 20 mEq Yes [id number] 20meq Take 1 [facility] tablet 4-28 tablet by [facility] of 00:00: mouth [place] 00 daily. [facility] metoprolol Yes [id number] 50mg Take 1 [facility] nivers succinate 4-28 tablet by ity o f XL 50 mg 24 00:00: mouth [place] hr tablet 00 daily. [facility] nitroglycer Yes [id number] .4mg Place 1 [facility] in 0.4 mg 4-28 tablet ity of sublingual 00:00: under the [place] tablet 00 tongue Medical every 5 Branch (five) minutes as needed for Chest pain. levothyroxi Yes [id number] 150ug Take 1 [facility] ne 150 mcg 4-28 tablet by [facility] of tablet 00:00: mouth [place] 00 every Medical morning. Branch atorvastati Yes [id number] 80mg Take 1 [facility] n 80 mg 4-28 tablet by [facility]y of tablet 00:00: mouth at [place] 00 bedtime. [facility] KCL 20 mEq 0 Yes [id number] 20meq Take 1 [facility] tablet 4-28 tablet by [facility] of 00:00: mouth [place] 00 daily. [facility] metoprolol Yes [id number] 50mg Take 1 [facility] nivers succinate 4-28 tablet by ity o f XL 50 mg 24 00:00: mouth [place] hr tablet 00 daily. [facility] nitroglycer Yes [id number] .4mg Place 1 [facility] in 0.4 mg 4-28 tablet ity of sublingual 00:00: under the [place] tablet 00 tongue Medical every 5 Branch (five) minutes as needed for Chest pain. levothyroxi Yes [id number] 150ug Take 1 [facility] ne 150 mcg 4-28 tablet by [facility] of tablet 00:00: mouth [place] 00 every Medical morning. Branch atorvastati Yes [id number] 80mg Take 1 [facility] n 80 mg 4-28 tablet by [facility]y of tablet 00:00: mouth at [place] 00 bedtime. [facility] KCL 20 mEq Yes [id number] 20meq Take 1 [facility] tablet 4-28 tablet by [facility]y of 00:00: mouth [place] 00 daily. [facility] metoprolol Yes [id number] 50mg Take 1 [facility] nivers succinate 4-28 tablet by ity o f XL 50 mg 24 00:00: mouth [place] hr tablet 00 daily. [facility] nitroglycer Yes [id number] .4mg Place 1 [facility] in 0.4 mg 4-28 tablet ity of sublingual 00:00: under the [place] tablet 00 tongue Medical every 5 Branch (five) minutes as needed for Chest pain. levothyroxi Yes [id number] 150ug Take 1 [facility] ne 150 mcg 4-28 tablet by [facility] of tablet 00:00: mouth [place] 00 every Medical morning. Branch atorvastati Yes [id number] 80mg Take 1 [facility] n 80 mg 4-28 tablet by [facility] of tablet 00:00: mouth at [place] 00 bedtime. [facility] KCL 20 mEq Yes [id number] 20meq Take 1 [facility] tablet 4-28 tablet by [facility]y of 00:00: mouth [place] 00 daily. [facility] metoprolol Yes [id number] 50mg Take 1 [facility] nivers succinate 4-28 tablet by ity o f XL 50 mg 24 00:00: mouth [place] hr tablet 00 daily. [facility] nitroglycer Yes [id number] .4mg Place 1 [facility] in 0.4 mg 4-28 tablet ity of sublingual 00:00: under the [place] tablet 00 tongue Medical every 5 Branch (five) minutes as needed for Chest pain. levothyroxi Yes [id number] 150ug Take 1 [facility] ne 150 mcg 4-28 tablet by [facility] of tablet 00:00: mouth [place] 00 every Medical morning. Branch atorvastati Yes [id number] 80mg Take 1 [facility] n 80 mg 4-28 tablet by [facility] of tablet 00:00: mouth at [place] 00 bedtime. [facility] KCL 20 mEq Yes [id number] 20meq Take 1 [facility] tablet 4-28 tablet by [facility]y of 00:00: mouth [place] 00 daily. [facility] metoprolol Yes [id number] 50mg Take 1 [facility] nivers succinate 4-28 tablet by ity o f XL 50 mg 24 00:00: mouth [place] hr tablet 00 daily. [facility] nitroglycer Yes [id number] .4mg Place 1 [facility] in 0.4 mg 4-28 tablet ity of sublingual 00:00: under the [place] tablet 00 tongue Medical every 5 Branch (five) minutes as needed for Chest pain. levothyroxi Yes [id number] 150ug Take 1 [facility] ne 150 mcg 4-28 tablet by [facility] of tablet 00:00: mouth [place] 00 every Medical morning. Branch atorvastati Yes [id number] 80mg Take 1 [facility] n 80 mg 4-28 tablet by [facility] of tablet 00:00: mouth at [place] 00 bedtime. [facility] KCL 20 mEq Yes [id number] 20meq Take 1 [facility] tablet 4-28 tablet by [facility]y of 00:00: mouth [place] 00 daily. [facility] metoprolol Yes [id number] 50mg Take 1 [facility] nivers succinate 4-28 tablet by ity o f XL 50 mg 24 00:00: mouth [place] hr tablet 00 daily. [facility] nitroglycer Yes [id number] .4mg Place 1 [facility] in 0.4 mg 4-28 tablet ity of sublingual 00:00: under the [place] tablet 00 tongue Medical every 5 Branch (five) minutes as needed for Chest pain. levothyroxi Yes [id number] 150ug Take 1 [facility] ne 150 mcg 4-28 tablet by [facility] of tablet 00:00: mouth [place] 00 every Medical morning. Branch atorvastati Yes [id number] 80mg Take 1 [facility] n 80 mg 4-28 tablet by [facility] of tablet 00:00: mouth at [place] 00 bedtime. [facility] KCL 20 mEq Yes [id number] 20meq Take 1 [facility] tablet 4-28 tablet by [facility]y of 00:00: mouth [place] 00 daily. [facility] metoprolol Yes [id number] 50mg Take 1 [facility] nivers succinate 4-28 tablet by ity o f XL 50 mg 24 00:00: mouth [place] hr tablet 00 daily. [facility] nitroglycer Yes [id number] .4mg Place 1 [facility] in 0.4 mg 4-28 tablet ity of sublingual 00:00: under the [place] tablet 00 tongue Medical every 5 Branch (five) minutes as needed for Chest pain. levothyroxi Yes [id number] 150ug Take 1 [facility] ne 150 mcg 4-28 tablet by [facility] of tablet 00:00: mouth [place] 00 every Medical morning. Branch atorvastati Yes [id number] 80mg Take 1 [facility] n 80 mg 4-28 tablet by [facility] of tablet 00:00: mouth at [place] 00 bedtime. [facility] KCL 20 mEq Yes [id number] 20meq Take 1 [facility] tablet 4-28 tablet by [facility] of 00:00: mouth [place] 00 daily. [facility] metoprolol Yes [id number] 50mg Take 1 [facility] nivers succinate 4-28 tablet by ity o f XL 50 mg 24 00:00: mouth [place] hr tablet 00 daily. [facility] nitroglycer Yes [id number] .4mg Place 1 [facility] in 0.4 mg 4-28 tablet ity of sublingual 00:00: under the [place] tablet 00 tongue Medical every 5 Branch (five) minutes as needed for Chest pain. levothyroxi Yes [id number] 150ug Take 1 [facility] ne 150 mcg 4-28 tablet by [facility] of tablet 00:00: mouth [place] 00 every Medical morning. Branch atorvastati Yes [id number] 80mg Take 1 [facility] n 80 mg 4-28 tablet by [facility] of tablet 00:00: mouth at [place] 00 bedtime. [facility] KCL 20 mEq Yes [id number] 20meq Take 1 [facility] tablet 4-28 tablet by [facility]y of 00:00: mouth [place] 00 daily. [facility] metoprolol Yes [id number] 50mg Take 1 [facility] nivers succinate 4-28 tablet by ity o f XL 50 mg 24 00:00: mouth [place] hr tablet 00 daily. [facility] nitroglycer Yes [id number] .4mg Place 1 [facility] in 0.4 mg 4-28 tablet ity of sublingual 00:00: under the [place] tablet 00 tongue Medical every 5 Branch (five) minutes as needed for Chest pain. levothyroxi Yes [id number] 150ug Take 1 [facility] ne 150 mcg 4-28 tablet by [facility] of tablet 00:00: mouth [place] 00 every Medical morning. Branch atorvastati Yes [id number] 80mg Take 1 [facility] n 80 mg 4-28 tablet by [facility] of tablet 00:00: mouth at [place] 00 bedtime. [facility] KCL 20 mEq Yes [id number] 20meq Take 1 [facility] tablet 4-28 tablet by [facility]y of 00:00: mouth [place] 00 daily. [facility] metoprolol Yes [id number] 50mg Take 1 [facility] nivers succinate 4-28 tablet by ity o f XL 50 mg 24 00:00: mouth [place] hr tablet 00 daily. [facility] nitroglycer Yes [id number] .4mg Place 1 [facility] in 0.4 mg 4-28 tablet ity of sublingual 00:00: under the [place] tablet 00 tongue Medical every 5 Branch (five) minutes as needed for Chest pain. levothyroxi Yes [id number] 150ug Take 1 [facility] ne 150 mcg 4-28 tablet by [facility] of tablet 00:00: mouth [place] 00 every Medical morning. Branch atorvastati Yes [id number] 80mg Take 1 [facility] n 80 mg 4-28 tablet by [facility] of tablet 00:00: mouth at [place] 00 bedtime. [facility] KCL 20 mEq Yes [id number] 20meq Take 1 [facility] tablet 4-28 tablet by [facility]y of 00:00: mouth [place] 00 daily. [facility] metoprolol Yes [id number] 50mg Take 1 [facility] nivers succinate 4-28 tablet by ity o f XL 50 mg 24 00:00: mouth [place] hr tablet 00 daily. [facility] nitroglycer Yes [id number] .4mg Place 1 [facility] in 0.4 mg 4-28 tablet ity of sublingual 00:00: under the [place] tablet 00 tongue Medical every 5 Branch (five) minutes as needed for Chest pain. levothyroxi Yes [id number] 150ug Take 1 [facility] ne 150 mcg 4-28 tablet by [facility] of tablet 00:00: mouth [place] 00 every Medical morning. Branch atorvastati Yes [id number] 80mg Take 1 [facility] n 80 mg 4-28 tablet by [facility] of tablet 00:00: mouth at [place] 00 bedtime. [facility] KCL 20 mEq Yes [id number] 20meq Take 1 [facility] tablet 4-28 tablet by [facility]y of 00:00: mouth [place] 00 daily. [facility] metoprolol Yes [id number] 50mg Take 1 [facility] nivers succinate 4-28 tablet by ity o f XL 50 mg 24 00:00: mouth [place] hr tablet 00 daily. [facility] nitroglycer Yes [id number] .4mg Place 1 [facility] in 0.4 mg 4-28 tablet ity of sublingual 00:00: under the [place] tablet 00 tongue Medical every 5 Branch (five) minutes as needed for Chest pain. levothyroxi Yes [id number] 150ug Take 1 [facility] ne 150 mcg 4-28 tablet by [facility] of tablet 00:00: mouth [place] 00 every Medical morning. Branch atorvastati Yes [id number] 80mg Take 1 [facility] n 80 mg 4-28 tablet by [facility] of tablet 00:00: mouth at [place] 00 bedtime. [facility] KCL 20 mEq Yes [id number] 20meq Take 1 [facility] tablet 4-28 tablet by [facility]y of 00:00: mouth [place] 00 daily. [facility] metoprolol Yes [id number] 50mg Take 1 [facility] nivers succinate 4-28 tablet by ity o f XL 50 mg 24 00:00: mouth [place] hr tablet 00 daily. [facility] nitroglycer Yes [id number] .4mg Place 1 [facility] in 0.4 mg 4-28 tablet ity of sublingual 00:00: under the [place] tablet 00 tongue Medical every 5 Branch (five) minutes as needed for Chest pain. levothyroxi Yes [id number] 150ug Take 1 [facility] ne 150 mcg 4-28 tablet by [facility] of tablet 00:00: mouth [place] 00 every Medical morning. Branch atorvastati Yes [id number] 80mg Take 1 [facility] n 80 mg 4-28 tablet by [facility] of tablet 00:00: mouth at [place] 00 bedtime. [facility] KCL 20 mEq Yes [id number] 20meq Take 1 [facility] tablet 4-28 tablet by [facility]y of 00:00: mouth [place] 00 daily. [facility] metoprolol Yes [id number] 50mg Take 1 [facility] nivers succinate 4-28 tablet by ity o f XL 50 mg 24 00:00: mouth [place] hr tablet 00 daily. [facility] nitroglycer Yes [id number] .4mg Place 1 [facility] in 0.4 mg 4-28 tablet ity of sublingual 00:00: under the [place] tablet 00 tongue Medical every 5 Branch (five) minutes as needed for Chest pain. levothyroxi Yes [id number] 150ug Take 1 [facility] 150 mcg 4-28 tablet by [facility] tablet 00:00: mouth [place] 00 every Medical morning. Branch atorvastati Yes [id number] 80mg Take 1 [facility] n 80 mg 4-28 tablet by [facility] tablet 00:00: mouth at [place] 00 bedtime. [facility] KCL 20 mEq Yes [id number] 20meq Take 1 [facility] tablet 4-28 tablet by [facility] of 00:00: mouth [place] 00 daily. [facility] metoprolol Yes [id number] 50mg Take 1 [facility] n[facility] succinate 4-28 tablet by [facility] o f XL 50 mg 24 00:00: mouth [place] hr tablet 00 daily. [facility] nitroglycer Yes [id number] .4mg Place 1 [facility] in 0.4 mg 4-28 tablet [facility] of sublingual 00:00: under the [place] tablet 00 tongue Medical every 5 Branch (five) minutes as needed for Chest pain. levothyroxi Yes [id number] 150ug Take 1 [facility] ne 150 mcg 4-28 tablet by [facility] tablet 00:00: mouth [place] 00 every Medical morning. Branch atorvastati Yes [id number] 80mg Take 1 [facility] n 80 mg 4-28 tablet by [facility] tablet 00:00: mouth at [place] 00 bedtime. [facility] KCL 20 mEq Yes [id number] 20meq Take 1 [facility] tablet 4-28 tablet by [facility] of 00:00: mouth [place] 00 daily. [facility] metoprolol Yes [id number] 50mg Take 1 [facility] nivers succinate 4-28 tablet by [facility] o f XL 50 mg 24 00:00: mouth [place] hr tablet 00 daily. [facility] nitroglycer Yes [id number] .4mg Place 1 [facility] in 0.4 mg 4-28 tablet [facility] of sublingual 00:00: under the [place] tablet 00 tongue Medical every 5 Branch (five) minutes as needed for Chest pain. levothyroxi Yes [id number] 150ug Take 1 [facility] ne 150 mcg 4-28 tablet by [facility] tablet 00:00: mouth [place] 00 every Medical morning. Branch atorvastati Yes [id number] 80mg Take 1 [facility] n 80 mg 4-28 tablet by [facility] tablet 00:00: mouth at [place] 00 bedtime. [facility] KCL 20 mEq 0 Yes [id number] 20meq Take 1 [facility] tablet 4-28 tablet by [facility] of 00:00: mouth [place] 00 daily. [facility] metoprolol Yes [id number] 50mg Take 1 [facility] n[facility] succinate 4-28 tablet by [facility] o f XL 50 mg 24 00:00: mouth [place] hr tablet 00 daily. [facility] nitroglycer Yes [id number] .4mg Place 1 [facility] in 0.4 mg 4-28 tablet [facility] of sublingual 00:00: under the [place] tablet 00 tongue Medical every 5 Branch (five) minutes as needed for Chest pain. levothyroxi 0 Yes [id number] 150ug Take 1 [facility] ne 150 mcg 4-28 tablet by [facility] tablet 00:00: mouth [place] 00 every Medical morning. Branch atorvastati Yes [id number] 80mg Take 1 [facility] n 80 mg 4-28 tablet by [facility] tablet 00:00: mouth at [place] 00 bedtime. [facility] KCL 20 mEq 0 Yes [id number] 20meq Take 1 [facility] tablet 4-28 tablet by [facility] of 00:00: mouth [place] 00 daily. [facility] metoprolol 0 Yes [id number] 50mg Take 1 [facility] succinate 4-28 tablet by [facility] o f XL 50 mg 24 00:00: mouth [place] hr tablet 00 daily. [facility] nitroglycer Yes [id number] .4mg Place 1 [facility] in 0.4 mg 4-28 tablet [facility] of sublingual 00:00: under the [place] tablet 00 tongue Medical every 5 Branch (five) minutes as needed for Chest pain. levothyroxi Yes [id number] 150ug Take 1 [facility] ne 150 mcg 4-28 tablet by [facility] tablet 00:00: mouth [place] 00 every Medical morning. Branch atorvastati Yes [id number] 80mg Take 1 [facility] n 80 mg 4-28 tablet by [facility] tablet 00:00: mouth at [place] 00 bedtime. [facility] KCL 20 mEq Yes [id number] 20meq Take 1 [facility] tablet 4-28 tablet by [facility] of 00:00: mouth [place] 00 daily. [facility] metoprolol Yes [id number] 50mg Take 1 [facility] n[facility] succinate 4-28 tablet by [facility] o f XL 50 mg 24 00:00: mouth [place] hr tablet 00 daily. [facility] nitroglycer Yes [id number] .4mg Place 1 [facility] in 0.4 mg 4-28 tablet [facility] of sublingual 00:00: under the [place] tablet 00 tongue Medical every 5 Branch (five) minutes as needed for Chest pain. levothyroxi Yes [id number] 150ug Take 1 [facility] ne 150 mcg 4-28 tablet by [facility] tablet 00:00: mouth [place] 00 every Medical morning. Branch atorvastati Yes [id number] 80mg Take 1 [facility] n 80 mg 4-28 tablet by [facility] tablet 00:00: mouth at [place] 00 bedtime. [facility] KCL 20 mEq Yes [id number] 20meq Take 1 [facility] tablet 4-28 tablet by [facility] of 00:00: mouth [place] 00 daily. [facility] metoprolol Yes [id number] 50mg Take 1 [facility] n[facility] succinate 4-28 tablet by [facility] o f XL 50 mg 24 00:00: mouth [place] hr tablet 00 daily. [facility] nitroglycer Yes [id number] .4mg Place 1 [facility] in 0.4 mg 4-28 tablet [facility] of sublingual 00:00: under the [place] tablet 00 tongue Medical every 5 Branch (five) minutes as needed for Chest pain. levothyroxi Yes [id number] 150ug Take 1 [facility] ne 150 mcg 4-28 tablet by [facility] tablet 00:00: mouth [place] 00 every Medical morning. Branch atorvastati Yes [id number] 80mg Take 1 [facility] n 80 mg 4-28 tablet by [facility] tablet 00:00: mouth at [place] 00 bedtime. [facility] KCL 20 mEq Yes [id number] 20meq Take 1 [facility] tablet 4-28 tablet by [facility] of 00:00: mouth [place] 00 daily. [facility] metoprolol Yes [id number] 50mg Take 1 [facility] nivers succinate 4-28 tablet by [facility] o f XL 50 mg 24 00:00: mouth [place] hr tablet 00 daily. [facility] nitroglycer Yes [id number] .4mg Place 1 [facility] in 0.4 mg 4-28 tablet [facility] of sublingual 00:00: under the [place] tablet 00 tongue Medical every 5 Branch (five) minutes as needed for Chest pain. levothyroxi Yes [id number] 150ug Take 1 [facility] ne 150 mcg 4-28 tablet by [facility] tablet 00:00: mouth [place] 00 every Medical morning. Branch atorvastati Yes [id number] 80mg Take 1 [facility] n 80 mg 4-28 tablet by [facility] tablet 00:00: mouth at [place] 00 bedtime. [facility] KCL 20 mEq 0 Yes [id number] 20meq Take 1 [facility] tablet 4-28 tablet by [facility] of 00:00: mouth [place] 00 daily. [facility] metoprolol Yes [id number] 50mg Take 1 [facility] n[facility] succinate 4-28 tablet by [facility] o f XL 50 mg 24 00:00: mouth [place] hr tablet 00 daily. [facility] nitroglycer Yes [id number] .4mg Place 1 [facility] in 0.4 mg 4-28 tablet [facility] of sublingual 00:00: under the [place] tablet 00 tongue Medical every 5 Branch (five) minutes as needed for Chest pain. levothyroxi Yes [id number] 150ug Take 1 [facility] ne 150 mcg 4-28 tablet by [facility] tablet 00:00: mouth [place] 00 every Medical morning. Branch atorvastati Yes [id number] 80mg Take 1 [facility] n 80 mg 4-28 tablet by [facility] of tablet 00:00: mouth at [place] 00 bedtime. [facility] KCL 20 mEq Yes [id number] 20meq Take 1 [facility] tablet 4-28 tablet by [facility] of 00:00: mouth [place] 00 daily. [facility] metoprolol Yes [id number] 50mg Take 1 [facility] nivers succinate 4-28 tablet by [facility] o f XL 50 mg 24 00:00: mouth [place] hr tablet 00 daily. [facility] nitroglycer Yes [id number] .4mg Place 1 [facility] in 0.4 mg 4-28 tablet [facility] of sublingual 00:00: under the [place] tablet 00 tongue Medical every 5 Branch (five) minutes as needed for Chest pain. levothyroxi Yes [id number] 150ug Take 1 [facility] ne 150 mcg 4-28 tablet by [facility] of tablet 00:00: mouth [place] 00 every Medical morning. Branch atorvastati Yes [id number] 80mg Take 1 [facility] n 80 mg 4-28 tablet by [facility] of tablet 00:00: mouth at [place] 00 bedtime. [facility] KCL 20 mEq Yes [id number] 20meq Take 1 [facility] tablet 4-28 tablet by [facility] of 00:00: mouth [place] 00 daily. [facility] metoprolol Yes [id number] 50mg Take 1 [facility] nivers succinate 4-28 tablet by [facility] o f XL 50 mg 24 00:00: mouth [place] hr tablet 00 daily. [facility] nitroglycer Yes [id number] .4mg Place 1 [facility] in 0.4 mg 4-28 tablet [facility] of sublingual 00:00: under the [place] tablet 00 tongue Medical every 5 Branch (five) minutes as needed for Chest pain. levothyroxi Yes [id number] 150ug Take 1 [facility] ne 150 mcg 4-28 tablet by [facility] of tablet 00:00: mouth [place] 00 every Medical morning. Branch atorvastati Yes [id number] 80mg Take 1 [facility] n 80 mg 4-28 tablet by [facility] of tablet 00:00: mouth at [place] 00 bedtime. [facility] KCL 20 mEq Yes [id number] 20meq Take 1 [facility] tablet 4-28 tablet by [facility] of 00:00: mouth [place] 00 daily. [facility] metoprolol Yes [id number] 50mg Take 1 [facility] n[facility] succinate 4-28 tablet by [facility] o f XL 50 mg 24 00:00: mouth [place] hr tablet 00 daily. [facility] nitroglycer Yes [id number] .4mg Place 1 [facility] in 0.4 mg 4-28 tablet [facility] of sublingual 00:00: under the [place] tablet 00 tongue Medical every 5 Branch (five) minutes as needed for Chest pain. levothyroxi Yes [id number] 150ug Take 1 [facility] ne 150 mcg 4-28 tablet by [facility] of tablet 00:00: mouth [place] 00 every Medical morning. Branch atorvastati Yes [id number] 80mg Take 1 [facility] n 80 mg 4-28 tablet by [facility] of tablet 00:00: mouth at [place] 00 bedtime. [facility] KCL 20 mEq Yes [id number] 20meq Take 1 [facility] tablet 4-28 tablet by [facility] of 00:00: mouth [place] 00 daily. [facility] metoprolol Yes [id number] 50mg Take 1 [facility] n[facility] succinate 4-28 tablet by [facility] o f XL 50 mg 24 00:00: mouth [place] hr tablet 00 daily. [facility] nitroglycer Yes [id number] .4mg Place 1 [facility] in 0.4 mg 4-28 tablet [facility] of sublingual 00:00: under the [place] tablet 00 tongue Medical every 5 Branch (five) minutes as needed for Chest pain. levothyroxi Yes [id number] 150ug Take 1 [facility] ne 150 mcg 4-28 tablet by [facility] of tablet 00:00: mouth [place] 00 every Medical morning. Branch atorvastati Yes [id number] 80mg Take 1 [facility] n 80 mg 4-28 tablet by [facility] of tablet 00:00: mouth at [place] 00 bedtime. [facility] KCL 20 mEq Yes [id number] 20meq Take 1 [facility] tablet 4-28 tablet by [facility] of 00:00: mouth [place] 00 daily. [facility] metoprolol Yes [id number] 50mg Take 1 [facility] nivers succinate 4-28 tablet by [facility] o f XL 50 mg 24 00:00: mouth [place] hr tablet 00 daily. [facility] nitroglycer Yes [id number] .4mg Place 1 [facility] in 0.4 mg 4-28 tablet [facility] of sublingual 00:00: under the [place] tablet 00 tongue Medical every 5 Branch (five) minutes as needed for Chest pain. levothyroxi Yes [id number] 150ug Take 1 [facility] ne 150 mcg 4-28 tablet by [facility] of tablet 00:00: mouth [place] 00 every Medical morning. Branch atorvastati Yes [id number] 80mg Take 1 [facility] n 80 mg 4-28 tablet by [facility] of tablet 00:00: mouth at [place] 00 bedtime. [facility] KCL 20 mEq Yes [id number] 20meq Take 1 [facility] tablet 4-28 tablet by [facility] of 00:00: mouth [place] 00 daily. [facility] metoprolol Yes [id number] 50mg Take 1 [facility] nivers succinate 4-28 tablet by [facility] o f XL 50 mg 24 00:00: mouth [place] hr tablet 00 daily. [facility] nitroglycer Yes [id number] .4mg Place 1 [facility] in 0.4 mg 4-28 tablet [facility] of sublingual 00:00: under the [place] tablet 00 tongue Medical every 5 Branch (five) minutes as needed for Chest pain. levothyroxi Yes [id number] 150ug Take 1 [facility] ne 150 mcg 4-28 tablet by [facility] of tablet 00:00: mouth [place] 00 every Medical morning. Branch atorvastati Yes [id number] 80mg Take 1 [facility] n 80 mg 4-28 tablet by [facility] of tablet 00:00: mouth at [place] 00 bedtime. [facility] KCL 20 mEq Yes [id number] 20meq Take 1 [facility] tablet 4-28 tablet by [facility] of 00:00: mouth [place] 00 daily. [facility] metoprolol Yes [id number] 50mg Take 1 [facility] nivers succinate 4-28 tablet by [facility] o f XL 50 mg 24 00:00: mouth [place] hr tablet 00 daily. [facility] nitroglycer Yes [id number] .4mg Place 1 [facility] in 0.4 mg 4-28 tablet [facility] of sublingual 00:00: under the [place] tablet 00 tongue Medical every 5 Branch (five) minutes as needed for Chest pain. levothyroxi Yes [id number] 150ug Take 1 [facility] ne 150 mcg 4-28 tablet by [facility] of tablet 00:00: mouth [place] 00 every Medical morning. Branch atorvastati Yes [id number] 80mg Take 1 [facility] n 80 mg 4-28 tablet by [facility] of tablet 00:00: mouth at [place] 00 bedtime. [facility] KCL 20 mEq Yes [id number] 20meq Take 1 [facility] tablet 4-28 tablet by [facility] of 00:00: mouth [place] 00 daily. [facility] metoprolol Yes [id number] 50mg Take 1 [facility] nivers succinate 4-28 tablet by [facility] o f XL 50 mg 24 00:00: mouth [place] hr tablet 00 daily. [facility] nitroglycer Yes [id number] .4mg Place 1 [facility] in 0.4 mg 4-28 tablet [facility] of sublingual 00:00: under the [place] tablet 00 tongue Medical every 5 Branch (five) minutes as needed for Chest pain. levothyroxi Yes [id number] 150ug Take 1 [facility] ne 150 mcg 4-28 tablet by [facility] of tablet 00:00: mouth [place] 00 every Medical morning. Branch atorvastati Yes [id number] 80mg Take 1 [facility] n 80 mg 4-28 tablet by [facility] of tablet 00:00: mouth at [place] 00 bedtime. [facility] KCL 20 mEq Yes [id number] 20meq Take 1 [facility] tablet 4-28 tablet by [facility] of 00:00: mouth [place] 00 daily. [facility] metoprolol Yes [id number] 50mg Take 1 [facility] nivers succinate 4-28 tablet by [facility] o f XL 50 mg 24 00:00: mouth [place] hr tablet 00 daily. [facility] nitroglycer Yes [id number] .4mg Place 1 [facility] in 0.4 mg 4-28 tablet [facility] of sublingual 00:00: under the [place] tablet 00 tongue Medical every 5 Branch (five) minutes as needed for Chest pain. levothyroxi 2022-0 Yes [id number] 150ug Take 1 [facility] ne 150 mcg 4-28 tablet by [facility] of tablet 00:00: mouth [place] 00 every Medical morning. Branch atorvastati 0 Yes [id number] 80mg Take 1 [facility] n 80 mg 4-28 tablet by [facility] of tablet 00:00: mouth at [place] 00 bedtime. [facility] nitroglycer [id number] 1 [facility] in 0.4 mg 4-28 tablet ity of sublingual 00:00: under the [place] tablet 00 tongue Medical every 5 Branch (five) minutes as needed for Chest pain. atorvastati 0 Yes [id number] 80mg Take 1 [facility] n 80 mg 4-28 tablet by [facility] of tablet 00:00: mouth at [place] [address] bedtime. Medical Branch nitroglycer [id number] 1 [facility] in 0.4 mg 4-28 tablet it[facility] of sublingual 00:00: under the [place] tablet 00 tongue Medical every 5 Branch (five) minutes as needed for Chest pain. atorvastati 0 Yes [id number] 80mg Take 1 [facility] n 80 mg 4-28 tablet by [facility] of tablet 00:00: mouth at [place] 00 bedtime. [facility] nitroglycer [id number] 1 [facility] in 0.4 mg 4-28 tablet it[facility] of sublingual 00:00: under the [place] tablet 00 tongue Medical every 5 Branch (five) minutes as needed for Chest pain. atorvastati 0 Yes [id number] 80mg Take 1 [facility] n 80 mg 4-28 tablet by [facility] of tablet 00:00: mouth at [place] [address] bedtime. Medical [facility] nitroglycer [id number] 1 [facility] in 0.4 mg 4-28 tablet it[facility] of sublingual 00:00: under the [place] tablet 00 tongue Medical every 5 Branch (five) minutes as needed for Chest pain. atorvastati 0 Yes [id number] 80mg Take 1 [facility] n 80 mg 4-28 tablet by [facility] of tablet 00:00: mouth at [place] [address] bedtime. Medical Branch nitroglycer 2021-[id number] 1 [facility] in 0.4 mg 4-28 tablet [facility] of sublingual 00:00: under the [place] tablet 00 tongue Medical every 5 Branch (five) minutes as needed for Chest pain. atorvastati 2021-0 Yes [id number] 80mg Take 1 [facility] n 80 mg 4-28 tablet by [facility] of tablet 00:00: mouth at [place] 00 bedtime. [facility] nitroglycer 2021-[id number] 1 [facility] in 0.4 mg 4-28 tablet ity of sublingual 00:00: under the [place] tablet 00 tongue Medical every 5 Branch (five) minutes as needed for Chest pain. atorvastati 2021-0 Yes [id number] 80mg Take 1 [facility] n 80 mg 4-28 tablet by [facility] of tablet 00:00: mouth at [place] 00 bedtime. [facility] nitroglycer 2021-[id number] 1 [facility] in 0.4 mg 4-28 tablet ity of sublingual 00:00: under the [place] tablet 00 tongue Medical every 5 Branch (five) minutes as needed for Chest pain. atorvastati 2021-0 Yes [id number] 80mg Take 1 [facility] n 80 mg 4-28 tablet by [facility] of tablet 00:00: mouth at [place] 00 bedtime. Medical [facility] nitroglycer 2021-[id number] 1 [facility] in 0.4 mg 4-28 tablet ity of sublingual 00:00: under the [place] tablet 00 tongue Medical every 5 Branch (five) minutes as needed for Chest pain. atorvastati 2021-0 Yes [id number] 80mg Take 1 [facility] n 80 mg 4-28 tablet by [facility] of tablet 00:00: mouth at [place] 00 bedtime. [facility] nitroglycer 2021-[id number] 1 [facility] in 0.4 mg 4-28 tablet ity of sublingual 00:00: under the [place] tablet 00 tongue Medical every 5 Branch (five) minutes as needed for Chest pain. atorvastati 2021-0 Yes [id number] 80mg Take 1 [facility] n 80 mg 4-28 tablet by [facility] of tablet 00:00: mouth at [place] 00 bedtime. Medical [facility] nitroglycer 2021-[id number] 1 [facility] in 0.4 mg 4-28 tablet ity of sublingual 00:00: under the [place] tablet 00 tongue Medical every 5 Branch (five) minutes as needed for Chest pain. atorvastati 2021-0 Yes [id number] 80mg Take 1 [facility] n 80 mg 4-28 tablet by [facility] of tablet 00:00: mouth at [place] 00 bedtime. [facility] nitroglycer 2021-[id number] 1 [facility] in 0.4 mg 4-28 tablet ity of sublingual 00:00: under the [place] tablet 00 tongue Medical every 5 Branch (five) minutes as needed for Chest pain. atorvastati 2021-0 Yes [id number] 80mg Take 1 [facility] n 80 mg 4-28 tablet by [facility] of tablet 00:00: mouth at [place] 00 bedtime. Medical [facility] nitroglycer 2021-[id number] 1 [facility] in 0.4 mg 4-28 tablet ity of sublingual 00:00: under the [place] tablet 00 tongue Medical every 5 Branch (five) minutes as needed for Chest pain. atorvastati 2021-0 Yes [id number] 80mg Take 1 [facility] n 80 mg 4-28 tablet by [facility] of tablet 00:00: mouth at [place] 00 bedtime. [facility] nitroglycer 2021-[id number] 1 [facility] in 0.4 mg 4-28 tablet ity of sublingual 00:00: under the [place] tablet 00 tongue Medical every 5 Branch (five) minutes as needed for Chest pain. atorvastati 2021-0 Yes [id number] 80mg Take 1 [facility] n 80 mg 4-28 tablet by [facility] of tablet 00:00: mouth at [place] 00 bedtime. [facility] nitroglycer 2-[id number] 1 [facility] in 0.4 mg 4-28 tablet ity of sublingual 00:00: under the [place] tablet 00 tongue Medical every 5 Branch (five) minutes as needed for Chest pain. atorvastati 2021-0 Yes [id number] 80mg Take 1 [facility] n 80 mg 4-28 tablet by [facility] of tablet 00:00: mouth at [place] 00 bedtime. Medical [facility] nitroglycer 2-[id number] 1 [facility] in 0.4 mg 4-28 tablet ity of sublingual 00:00: under the [place] tablet 00 tongue Medical every 5 Branch (five) minutes as needed for Chest pain. atorvastati 2021-0 Yes [id number] 80mg Take 1 [facility] n 80 mg 4-28 tablet by [facility] of tablet 00:00: mouth at [place] 00 bedtime. [facility] nitroglycer 2021-[id number] 1 [facility] in 0.4 mg 4-28 tablet ity of sublingual 00:00: under the [place] tablet 00 tongue Medical every 5 Branch (five) minutes as needed for Chest pain. atorvastati 2021-0 Yes [id number] 80mg Take 1 [facility] n 80 mg 4-28 tablet by [facility] of tablet 00:00: mouth at [place] 00 bedtime. [facility] nitroglycer 2021-[id number] 1 [facility] in 0.4 mg 4-28 tablet ity of sublingual 00:00: under the [place] tablet 00 tongue Medical every 5 Branch (five) minutes as needed for Chest pain. atorvastati 2021-0 Yes [id number] 80mg Take 1 [facility] n 80 mg 4-28 tablet by [facility] of tablet 00:00: mouth at [place] 00 bedtime. [facility] nitroglycer 2021-[id number] 1 [facility] in 0.4 mg 4-28 tablet ity of sublingual 00:00: under the [place] tablet 00 tongue Medical every 5 Branch (five) minutes as needed for Chest pain. atorvastati 2021-0 Yes [id number] 80mg Take 1 [facility] n 80 mg 4-28 tablet by [facility] of tablet 00:00: mouth at [place] 00 bedtime. [facility] nitroglycer 2021-[id number] 1 [facility] in 0.4 mg 4-28 tablet ity of sublingual 00:00: under the [place] tablet 00 tongue Medical every 5 Branch (five) minutes as needed for Chest pain. atorvastati 2021-0 Yes [id number] 80mg Take 1 [facility] n 80 mg 4-28 tablet by [facility] of tablet 00:00: mouth at [place] 00 bedtime. Medical [facility] nitroglycer 2-[id number] 1 [facility] in 0.4 mg 4-28 tablet ity of sublingual 00:00: under the [place] tablet 00 tongue Medical every 5 Branch (five) minutes as needed for Chest pain. nitroglycer 2022-[id number] 1 [facility] in 0.4 mg 4-28 tablet ity of sublingual 00:00: under the [place] tablet 00 tongue Medical every 5 Branch (five) minutes as needed for Chest pain. nitroglycer 2022-[id number] 1 [facility] in 0.4 mg 4-28 tablet ity of sublingual 00:00: under the [place] tablet 00 tongue Medical every 5 Branch (five) minutes as needed for Chest pain. nitroglycer 2022-[id number] 1 [facility] in 0.4 mg 4-28 tablet ity of sublingual 00:00: under the [place] tablet 00 tongue Medical every 5 Branch (five) minutes as needed for Chest pain. nitroglycer 2022-[id number] 1 [facility] in 0.4 mg 4-28 tablet ity of sublingual 00:00: under the [place] tablet 00 tongue Medical every 5 Branch (five) minutes as needed for Chest pain. nitroglycer 2022-[id number] 1 [facility] in 0.4 mg 4-28 tablet ity of sublingual 00:00: under the [place] tablet 00 tongue Medical every 5 Branch (five) minutes as needed for Chest pain. nitroglycer 2022-[id number] 1 [facility] in 0.4 mg 4-28 tablet ity of sublingual 00:00: under the [place] tablet 00 tongue Medical every 5 Branch (five) minutes as needed for Chest pain. nitroglycer 2022-[id number] 1 [facility] in 0.4 mg 4-28 tablet ity of sublingual 00:00: under the [place] tablet 00 tongue Medical every 5 Branch (five) minutes as needed for Chest pain. nitroglycer 2022-[id number] 1 [facility] in 0.4 mg 4-28 tablet ity of sublingual 00:00: under the [place] tablet 00 tongue Medical every 5 Branch (five) minutes as needed for Chest pain. nitroglycer 2022-[id number] 1 [facility] in 0.4 mg 4-28 tablet ity of sublingual 00:00: under the [place] tablet 00 tongue Medical every 5 Branch (five) minutes as needed for Chest pain. nitroglycer 2022-[id number] 1 [facility] in 0.4 mg 4-28 tablet ity of sublingual 00:00: under the [place] tablet 00 tongue Medical every 5 Branch (five) minutes as needed for Chest pain. nitroglycer 2022-[id number] 1 [facility] in 0.4 mg 4-28 tablet ity of sublingual 00:00: under the [place] tablet 00 tongue Medical every 5 Branch (five) minutes as needed for Chest pain. nitroglycer 2022-[id number] 1 [facility] in 0.4 mg 4-28 tablet ity of sublingual 00:00: under the [place] tablet 00 tongue Medical every 5 Branch (five) minutes as needed for Chest pain. nitroglycer 2022-[id number] 1 [facility] in 0.4 mg 4-28 tablet ity of sublingual 00:00: under the [place] tablet 00 tongue Medical every 5 Branch (five) minutes as needed for Chest pain. nitroglycer 2022-[id number] 1 [facility] in 0.4 mg 4-28 tablet ity of sublingual 00:00: under the [place] tablet 00 tongue Medical every 5 Branch (five) minutes as needed for Chest pain. nitroglycer 2022-[id number] 1 [facility] in 0.4 mg 4-28 tablet ity of sublingual 00:00: under the [place] tablet 00 tongue Medical every 5 Branch (five) minutes as needed for Chest pain. nitroglycer 2022-[id number] 1 [facility] in 0.4 mg 4-28 tablet ity of sublingual 00:00: under the [place] tablet 00 tongue Medical every 5 Branch (five) minutes as needed for Chest pain. nitroglycer 2022-[id number] 1 [facility] in 0.4 mg 4-28 tablet ity of sublingual 00:00: under the [place] tablet 00 tongue Medical every 5 Branch (five) minutes as needed for Chest pain. nitroglycer 2022-[id number] 1 [facility] in 0.4 mg 4-28 tablet ity of sublingual 00:00: under the [place] tablet 00 tongue Medical every 5 Branch (five) minutes as needed for Chest pain. nitroglycer 2022-[id number] 1 [facility] in 0.4 mg 4-28 tablet ity of sublingual 00:00: under the [place] tablet 00 tongue Medical every 5 Branch (five) minutes as needed for Chest pain. nitroglycer 2022-[id number] 1 [facility] in 0.4 mg 4-28 tablet ity of sublingual 00:00: under the [place] tablet 00 tongue Medical every 5 Branch (five) minutes as needed for Chest pain. nitroglycer 2022-[id number] 1 [facility] in 0.4 mg 4-28 tablet ity of sublingual 00:00: under the [place] tablet 00 tongue Medical every 5 Branch (five) minutes as needed for Chest pain. nitroglycer 2022-[id number] 1 [facility] in 0.4 mg 4-28 tablet ity of sublingual 00:00: under the [place] tablet 00 tongue Medical every 5 Branch (five) minutes as needed for Chest pain. nitroglycer 2022-[id number] 1 [facility] in 0.4 mg 4-28 tablet ity of sublingual 00:00: under the [place] tablet 00 tongue Medical every 5 Branch (five) minutes as needed for Chest pain. nitroglycer 2022-[id number] 1 [facility] in 0.4 mg 4-28 tablet ity of sublingual 00:00: under the [place] tablet 00 tongue Medical every 5 Branch (five) minutes as needed for Chest pain. nitroglycer 2022-[id number] [facility] in 0.4 mg 4-28 tablet [facility] of sublingual 00:00: under the [place] tablet 00 tongue Medical every 5 Branch (five) minutes as needed for Chest pain. nitroglycer 2022-[id number] 1 [facility] in 0.4 mg 4-28 tablet [facility] of sublingual 00:00: under the [place] tablet 00 tongue Medical every 5 Branch (five) minutes as needed for Chest pain. nitroglycer 2022-[id number] 1 [facility] in 0.4 mg 4-28 tablet [facility] of sublingual 00:00: under the [place] tablet 00 tongue Medical every 5 Branch (five) minutes as needed for Chest pain. nitroglycer 2022-[id number] 1 [facility] in 0.4 mg 4-28 tablet [facility] of sublingual 00:00: under the [place] tablet 00 tongue Medical every 5 Branch (five) minutes as needed for Chest pain. nitroglycer 2022-[id number] 1 [facility] in 0.4 mg 4-28 tablet [facility] of sublingual 00:00: under the [place] tablet 00 tongue Medical every 5 Branch (five) minutes as needed for Chest pain. nitroglycer 2022-[id number] 1 [facility] in 0.4 mg 4-28 tablet [facility] of sublingual 00:00: under the [place] tablet 00 tongue Medical every 5 Branch (five) minutes as needed for Chest pain. nitroglycer 2022-[id number] 1 [facility] in 0.4 mg 4-28 tablet [facility] of sublingual 00:00: under the [place] tablet 00 tongue Medical every 5 Branch (five) minutes as needed for Chest pain. nitroglycer 2022-[id number] 1 [facility] in 0.4 mg 4-28 tablet [facility] of sublingual 00:00: under the [place] tablet 00 tongue Medical every 5 Branch (five) minutes as needed for Chest pain. nitroglycer 2022-[id number] 1 [facility] in 0.4 mg 4-28 tablet [facility] of sublingual 00:00: under the [place] tablet 00 tongue Medical every 5 Branch (five) minutes as needed for Chest pain. nitroglycer 2022-[id number] 1 [facility] in 0.4 mg 4-28 tablet [facility] of sublingual 00:00: under the [place] tablet 00 tongue Medical every 5 Branch (five) minutes as needed for Chest pain. nitroglycer 2022-[id number] 1 [facility] in 0.4 mg 4-28 tablet [facility] of sublingual 00:00: under the [place] tablet 00 tongue Medical every 5 Branch (five) minutes as needed for Chest pain. nitroglycer 2022-[id number] 1 [facility] in 0.4 mg 4-28 tablet [facility] of sublingual 00:00: under the [place] tablet 00 tongue Medical every 5 Branch (five) minutes as needed for Chest pain. nitroglycer 2022-[id number] 1 [facility] in 0.4 mg 4-28 tablet [facility] of sublingual 00:00: under the [place] tablet 00 tongue Medical every 5 Branch (five) minutes as needed for Chest pain. nitroglycer 2022-[id number] 1 [facility] in 0.4 mg 4-28 tablet [facility] of sublingual 00:00: under the [place] tablet 00 tongue Medical every 5 Branch (five) minutes as needed for Chest pain. nitroglycer 2022-[id number] 1 [facility] in 0.4 mg 4-28 tablet [facility] of sublingual 00:00: under the [place] tablet 00 tongue Medical every 5 Branch (five) minutes as needed for Chest pain. nitroglycer 2022-[id number] 1 [facility] in 0.4 mg 4-28 tablet [facility] of sublingual 00:00: under the [place] tablet 00 tongue Medical every 5 Branch (five) minutes as needed for Chest pain. nitroglycer 2022-[id number] 1 [facility] in 0.4 mg 4-28 tablet [facility] of sublingual 00:00: under the [place] tablet 00 tongue Medical every 5 Branch (five) minutes as needed for Chest pain. nitroglycer 2022-[id number] 1 [facility] in 0.4 mg 4-28 tablet [facility] of sublingual 00:00: under the [place] tablet 00 tongue Medical every 5 Branch (five) minutes as needed for Chest pain. nitroglycer 2022-[id number] 1 [facility] in 0.4 mg 4-28 tablet [facility] of sublingual 00:00: under the [place] tablet 00 tongue Medical every 5 Branch (five) minutes as needed for Chest pain. nitroglycer 2022-[id number] 1 [facility] in 0.4 mg 4-28 tablet [facility] of sublingual 00:00: under the [place] tablet 00 tongue Medical every 5 Branch (five) minutes as needed for Chest pain. nitroglycer 2022-[id number] 1 [facility] in 0.4 mg 4-28 tablet [facility] of sublingual 00:00: under the [place] tablet 00 tongue Medical every 5 Branch (five) minutes as needed for Chest pain. nitroglycer 2022-[id number] 1 [facility] in 0.4 mg 4-28 tablet [facility] of sublingual 00:00: under the [place] tablet 00 tongue Medical every 5 Branch (five) minutes as needed for Chest pain. nitroglycer 2022-[id number] 1 [facility] in 0.4 mg 4-28 tablet [facility] of sublingual 00:00: under the [place] tablet 00 tongue Medical every 5 Branch (five) minutes as needed for Chest pain. nitroglycer 2022-[id number] 1 [facility] in 0.4 mg 4-28 tablet [facility] of sublingual 00:00: under the [place] tablet 00 tongue Medical every 5 Branch (five) minutes as needed for Chest pain. nitroglycer 2022-[id number] 1 [facility] in 0.4 mg 4-28 tablet [facility] of sublingual 00:00: under the [place] tablet 00 tongue Medical every 5 Branch (five) minutes as needed for Chest pain. nitroglycer 2022-[id number] 1 [facility] in 0.4 mg 4-28 tablet [facility] of sublingual 00:00: under the [place] tablet 00 tongue Medical every 5 Branch (five) minutes as needed for Chest pain. nitroglycer 2022-[id number] 1 [facility] in 0.4 mg 4-28 tablet [facility] of sublingual 00:00: under the [place] tablet 00 tongue Medical every 5 Branch (five) minutes as needed for Chest pain. nitroglycer 2022-[id number] 1 [facility] in 0.4 mg 4-28 tablet it[facility] of sublingual 00:00: under the [place] tablet 00 tongue Medical every 5 Branch (five) minutes as needed for Chest pain. nitroglycer 2022-[id number] 1 [facility] in 0.4 mg 4-28 tablet [facility] of sublingual 00:00: under the [place] tablet 00 tongue Medical every 5 Branch (five) minutes as needed for Chest pain. nitroglycer 2022-[id number] 1 [facility] in 0.4 mg 4-28 tablet [facility] of sublingual 00:00: under the [place] tablet 00 tongue Medical every 5 Branch (five) minutes as needed for Chest pain. nitroglycer 2022-[id number] 1 [facility] in 0.4 mg 4-28 tablet [facility] of sublingual 00:00: under the [place] tablet 00 tongue Medical every 5 Branch (five) minutes as needed for Chest pain. nitroglycer 2022-[id number] 1 [facility] in 0.4 mg 4-28 tablet [facility] of sublingual 00:00: under the [place] tablet 00 tongue Medical every 5 Branch (five) minutes as needed for Chest pain. nitroglycer 2022-[id number] 1 [facility] in 0.4 mg 4-28 tablet it[facility] of sublingual 00:00: under the [place] tablet 00 tongue Medical every 5 Branch (five) minutes as needed for Chest pain. nitroglycer 2022-[id number] 1 [facility] in 0.4 mg 4-28 tablet [facility] of sublingual 00:00: under the [place] tablet 00 tongue Medical every 5 Branch (five) minutes as needed for Chest pain. nitroglycer 2022-[id number] 1 [facility] in 0.4 mg 4-28 tablet [facility] of sublingual 00:00: under the [place] tablet 00 tongue Medical every 5 Branch (five) minutes as needed for Chest pain. nitroglycer 2022-[id number] 1 [facility] in 0.4 mg 4-28 tablet [facility] of sublingual 00:00: under the [place] tablet 00 tongue Medical every 5 Branch (five) minutes as needed for Chest pain. nitroglycer 2022-[id number] 1 [facility] in 0.4 mg 4-28 tablet [facility] of sublingual 00:00: under the [place] tablet 00 tongue Medical every 5 Branch (five) minutes as needed for Chest pain. nitroglycer 2022-[id number] 1 [facility] in 0.4 mg 4-28 tablet [facility] of sublingual 00:00: under the [place] tablet 00 tongue Medical every 5 Branch (five) minutes as needed for Chest pain. nitroglycer 2021-[id number] 1 [facility] in 0.4 mg 4-28 tablet [facility] of sublingual 00:00: under the [place] tablet 00 tongue Medical every 5 Branch (five) minutes as needed for Chest pain. nitroglycer [id number] 1 [facility] in 0.4 mg 4-28 tablet [facility] of sublingual 00:00: under the [place] tablet 00 tongue Medical every 5 Branch (five) minutes as needed for Chest pain. nitroglycer 2021-[id number] 1 [facility] in 0.4 mg 4-28 tablet [facility] of sublingual 00:00: under the [place] tablet 00 tongue Medical every 5 Branch (five) minutes as needed for Chest pain. nitroglycer [id number] 1 [facility] in 0.4 mg 4-28 tablet [facility] of sublingual 00:00: under the [place] tablet 00 tongue Medical every 5 Branch (five) minutes as needed for Chest pain. nitroglycer 2021-[id number] 1 [facility] in 0.4 mg 4-28 tablet [facility] of sublingual 00:00: under the [place] tablet 00 tongue Medical every 5 Branch (five) minutes as needed for Chest pain. nitroglycer [id number] 1 [facility] in 0.4 mg 4-28 tablet [facility] of sublingual 00:00: under the [place] tablet 00 tongue Medical every 5 Branch (five) minutes as needed for Chest pain. nitroglycer 2021-[id number] 1 [facility] in 0.4 mg 4-28 tablet it[facility] of sublingual 00:00: under the [place] tablet 00 tongue Medical every 5 Branch (five) minutes as needed for Chest pain. atorvastati 2021- No [id number] 80mg Take 1 [facility] n 80 mg 4-28 09-29 tablet by ity of tablet 00:00: 00:00 mouth at [place] 00 :00 bedtime. Medical Branch atorvastati 2021- No [id number] 80mg Take 1 [facility] n 80 mg 4-20 10-07 tablet by [facility]y of tablet 00:00: 00:00 mouth at [place] 00 :00 bedtime. Medical Branch atorvastati 2021- No [id number] 80mg Take 1 [facility] n 80 mg 4-28 -07 tablet by [facility] of tablet 00:00: 00:00 mouth at [place] 00 :00 bedtime. Medical Branch KCL 20 mEq 2021- No [id number] 20meq Take 1 [facility] tablet 4-28 10-25 tablet by ity of 00:00: 00:00 mouth [place] 00 :00 daily. Medical Branch metoprolol 2021- No [id number] 50mg Take 1 [facility] succinate 4-28 10-25 tablet by [facility]y of XL 50 mg 24 00:00: 00:00 [facility] [place] hr tablet 00 :00 daily. Medical Branch levothyroxi 2021- No [id number] 150ug Take 1 [facility] ne 150 mcg 4-28 10-25 tablet by ity of tablet 00:00: 00:00 mouth [place] 00 :00 every Medical morning. Branch KCL 20 mEq 2021- No [id number] 20meq Take 1 [facility] tablet 4-28 10-25 tablet by ity of 00:00: 00:00 mouth [place] 00 :00 daily. Medical Branch metoprolol 2021- No [id number] 50mg Take 1 [facility] succinate 4-28 10-25 tablet by [facility]y of XL 50 mg 24 00:00: 00:00 mouth [place] hr tablet 00 :00 daily. Medical Branch levothyroxi 2021- No [id number] 150ug Take 1 [facility] ne 150 mcg 4-28 10-25 tablet by ity of tablet 00:00: 00:00 mouth [place] 00 :00 every Medical morning. Branch KCL 20 mEq 2021- No [id number] 20meq Take 1 [facility] tablet 4-28 10-25 tablet by ity of 00:00: 00:00 mouth [place] 00 :00 daily. Medical Branch metoprolol 2021- No [id number] 50mg Take 1 [facility] succinate 4-28 10-25 tablet by ity of XL 50 mg 24 00:00: 00:00 mouth [place] hr tablet 00 :00 daily. Medical Branch levothyroxi 2021- No [id number] 150ug Take 1 [facility] ne 150 mcg 4-28 10-25 tablet by ity of tablet 00:00: 00:00 mouth [place] 00 :00 every Medical morning. Branch KCL 20 mEq 2021- No [id number] 20meq Take 1 [facility] tablet 4-28 10-25 tablet by ity of 00:00: 00:00 mouth [place] 00 :00 daily. Medical Branch metoprolol 2021- No [id number] 50mg Take 1 [facility] succinate 4-28 10-25 tablet by ity of XL 50 mg 24 00:00: 00:00 mouth [place] hr tablet 00 :00 daily. Medical Branch levothyroxi 2021- No [id number] 150ug Take 1 [facility] ne 150 mcg 4-28 10-25 tablet by ity of tablet 00:00: 00:00 mouth [place] 00 :00 every Medical morning. Branch KCL 20 mEq 2021- No [id number] 20meq Take 1 [facility] tablet 4-28 10-25 tablet by ity of 00:00: 00:00 mouth [place] 00 :00 daily. Medical Branch metoprolol 2021- No [id number] 50mg Take 1 [facility] succinate 4-28 10-25 tablet by ity of XL 50 mg 24 00:00: 00:00 mouth [place] hr tablet 00 :00 daily. Medical Branch levothyroxi 2021- No [id number] 150ug Take 1 [facility] ne 150 mcg 4-28 10-25 tablet by ity of tablet 00:00: 00:00 mouth [place] 00 :00 every Medical morning. Branch apixaban 2021- No [id number] 5mg Take 1 [facility] (ELIQUIS) 5 4-28 08-16 tablet by it y of mg tablet 00:00: 00:00 mouth [facility] [place] 00 :[place] (two) Medical times Branch daily. Indication s: atrial fibrillati on empaglifloz Yes [id number] 10mg Take 1 [facility] in 3-31 tablet by ity of (JARDIANCE) 00:00: mouth [place] 10 mg 00 every Medical morning. Branch empaglifloz 2022-0 Yes [id number] 10mg Take 1 [facility] in 3-31 tablet by ity of (JARDIANCE) 00:00: mouth [place] 10 mg 00 every Medical morning. Branch empaglifloz 2022-0 Yes [id number] 10mg Take 1 [facility] in 3-31 tablet by ity of (JARDIANCE) 00:00: mouth [place] 10 mg 00 every Medical morning. Branch empaglifloz 2022-0 Yes [id number] 10mg Take 1 [facility] in 3-31 tablet by ity of (JARDIANCE) 00:00: mouth [place] 10 mg 00 every Medical morning. Branch empaglifloz 2022-0 Yes [id number] 10mg Take 1 [facility] in 3-31 tablet by ity of (JARDIANCE) 00:00: mouth [place] 10 mg 00 every Medical morning. Branch empaglifloz 2022-0 Yes [id number] 10mg Take 1 [facility] in 3-31 tablet by ity of (JARDIANCE) 00:00: mouth [place] 10 mg 00 every Medical morning. Branch empaglifloz 2022-0 Yes [id number] 10mg Take 1 [facility] in 3-31 tablet by ity of (JARDIANCE) 00:00: mouth [place] 10 mg 00 every Medical morning. Branch empaglifloz 2022-0 Yes [id number] 10mg Take 1 [facility] in 3-31 tablet by ity of (JARDIANCE) 00:00: mouth [place] 10 mg 00 every Medical morning. Branch empaglifloz 2022-0 Yes [id number] 10mg Take 1 [facility] in 3-31 tablet by ity of (JARDIANCE) 00:00: mouth [place] 10 mg 00 every Medical morning. Branch empaglifloz 2022-0 Yes [id number] 10mg Take 1 [facility] in 3-31 tablet by ity of (JARDIANCE) 00:00: mouth [place] 10 mg 00 every Medical morning. Branch empaglifloz 2022-0 Yes [id number] 10mg Take 1 [facility] in 3-31 tablet by ity of (JARDIANCE) 00:00: mouth [place] 10 mg 00 every Medical morning. Branch empaglifloz 2022-0 Yes [id number] 10mg Take 1 [facility] in 3-31 tablet by ity of (JARDIANCE) 00:00: mouth [place] 10 mg 00 every Medical morning. Branch empaglifloz 2022-0 Yes [id number] 10mg Take 1 [facility] in 3-31 tablet by ity of (JARDIANCE) 00:00: mouth [place] 10 mg 00 every Medical morning. Branch empaglifloz 2022-0 Yes [id number] 10mg Take 1 [facility] in 3-31 tablet by ity of (JARDIANCE) 00:00: mouth [place] 10 mg 00 every Medical morning. Branch empaglifloz 2022-0 Yes [id number] 10mg Take 1 [facility] in 3-31 tablet by ity of (JARDIANCE) 00:00: mouth [place] 10 mg 00 every Medical morning. Branch empaglifloz 2022-0 Yes [id number] 10mg Take 1 [facility] in 3-31 tablet by ity of (JARDIANCE) 00:00: mouth [place] 10 mg 00 every Medical morning. Branch empaglifloz 2022-0 Yes [id number] 10mg Take 1 [facility] in 3-31 tablet by ity of (JARDIANCE) 00:00: mouth [place] 10 mg 00 every Medical morning. Branch empaglifloz 2022-0 Yes [id number] 10mg Take 1 [facility] in 3-31 tablet by ity of (JARDIANCE) 00:00: mouth [place] 10 mg 00 every Medical morning. Branch empaglifloz 2022-0 Yes [id number] 10mg Take 1 [facility] in 3-31 tablet by ity of (JARDIANCE) 00:00: mouth [place] 10 mg 00 every Medical morning. Branch empaglifloz 2022-0 Yes [id number] 10mg Take 1 [facility] in 3-31 tablet by ity of (JARDIANCE) 00:00: mouth [place] 10 mg 00 every Medical morning. Branch empaglifloz 2022-0 Yes [id number] 10mg Take 1 [facility] in 3-31 tablet by ity of (JARDIANCE) 00:00: mouth [place] 10 mg 00 every Medical morning. Branch empaglifloz 2022-0 Yes [id number] 10mg Take 1 [facility] in 3-31 tablet by ity of (JARDIANCE) 00:00: mouth [place] 10 mg 00 every Medical morning. Branch empaglifloz 2022-0 Yes [id number] 10mg Take 1 [facility] in 3-31 tablet by ity of (JARDIANCE) 00:00: mouth [place] 10 mg 00 every Medical morning. Branch empaglifloz 2022-0 Yes [id number] 10mg Take 1 [facility] in 3-31 tablet by ity of (JARDIANCE) 00:00: mouth [place] 10 mg 00 every Medical morning. Branch empaglifloz 2022-0 Yes [id number] 10mg Take 1 [facility] in 3-31 tablet by ity of (JARDIANCE) 00:00: mouth [place] 10 mg 00 every Medical morning. Branch empaglifloz 2022-0 Yes [id number] 10mg Take 1 [facility] in 3-31 tablet by ity of (JARDIANCE) 00:00: mouth [place] 10 mg 00 every Medical morning. Branch empaglifloz 2022-0 Yes [id number] 10mg Take 1 [facility] in 3-31 tablet by ity of (JARDIANCE) 00:00: mouth [place] 10 mg 00 every Medical morning. Branch empaglifloz 2022-0 Yes [id number] 10mg Take 1 [facility] in 3-31 tablet by ity of (JARDIANCE) 00:00: mouth [place] 10 mg 00 every Medical morning. Branch empaglifloz 2022-0 Yes [id number] 10mg Take 1 [facility] in 3-31 tablet by ity of (JARDIANCE) 00:00: mouth [place] 10 mg 00 every Medical morning. Branch empaglifloz 2022-0 Yes [id number] 10mg Take 1 [facility] in 3-31 tablet by ity of (JARDIANCE) 00:00: mouth [place] 10 mg 00 every Medical morning. Branch empaglifloz 2022-0 Yes [id number] 10mg Take 1 [facility] in 3-31 tablet by ity of (JARDIANCE) 00:00: mouth [place] 10 mg 00 every Medical morning. Branch empaglifloz 2022-0 Yes [id number] 10mg Take 1 [facility] in 3-31 tablet by ity of (JARDIANCE) 00:00: mouth [place] 10 mg 00 every Medical morning. Branch empaglifloz 2022-0 Yes [id number] 10mg Take 1 [facility] in 3-31 tablet by ity of (JARDIANCE) 00:00: mouth [place] 10 mg 00 every Medical morning. Branch empaglifloz 2022-0 Yes [id number] 10mg Take 1 [facility] in 3-31 tablet by ity of (JARDIANCE) 00:00: mouth [place] 10 mg 00 every Medical morning. Branch empaglifloz 2022-0 Yes [id number] 10mg Take 1 [facility] in 3-31 tablet by ity of (JARDIANCE) 00:00: mouth [place] 10 mg 00 every Medical morning. Branch empaglifloz 2022-0 Yes [id number] 10mg Take 1 [facility] in 3-31 tablet by ity of (JARDIANCE) 00:00: mouth [place] 10 mg 00 every Medical morning. Branch empaglifloz 2022-0 Yes [id number] 10mg Take 1 [facility] in 3-31 tablet by ity of (JARDIANCE) 00:00: mouth [place] 10 mg 00 every Medical morning. Branch empaglifloz 2022-0 Yes [id number] 10mg Take 1 [facility] in 3-31 tablet by ity of (JARDIANCE) 00:00: mouth [place] 10 mg 00 every Medical morning. Branch empaglifloz 2022-0 Yes [id number] 10mg Take 1 [facility] in 3-31 tablet by ity of (JARDIANCE) 00:00: mouth [place] 10 mg 00 every Medical morning. Branch empaglifloz 2022-0 Yes [id number] 10mg Take 1 [facility] in 3-31 tablet by ity of (JARDIANCE) 00:00: mouth [place] 10 mg 00 every Medical morning. Branch empaglifloz 2022-0 Yes [id number] 10mg Take 1 [facility] in 3-31 tablet by ity of (JARDIANCE) 00:00: mouth [place] 10 mg 00 every Medical morning. Branch empaglifloz 2022-0 Yes [id number] 10mg Take 1 [facility] in 3-31 tablet by ity of (JARDIANCE) 00:00: mouth [place] 10 mg 00 every Medical morning. Branch empaglifloz 2022-0 Yes [id number] 10mg Take 1 [facility] in 3-31 tablet by ity of (JARDIANCE) 00:00: mouth [place] 10 mg 00 every Medical morning. Branch empaglifloz 2022-0 Yes [id number] 10mg Take 1 [facility] in 3-31 tablet by ity of (JARDIANCE) 00:00: mouth [place] 10 mg 00 every Medical morning. Branch empaglifloz 2022-0 Yes [id number] 10mg Take 1 [facility] in 3-31 tablet by ity of (JARDIANCE) 00:00: mouth [place] 10 mg 00 every Medical morning. Branch empaglifloz 2022-0 Yes [id number] 10mg Take 1 [facility] in 3-31 tablet by ity of (JARDIANCE) 00:00: mouth [place] 10 mg 00 every Medical morning. Branch empaglifloz 2022-0 Yes [id number] 10mg Take 1 [facility] in 3-31 tablet by ity of (JARDIANCE) 00:00: mouth [place] 10 mg 00 every Medical morning. Branch empaglifloz 2022-0 Yes [id number] 10mg Take 1 [facility] in 3-31 tablet by ity of (JARDIANCE) 00:00: mouth [place] 10 mg 00 every Medical morning. Branch empaglifloz 2022-0 Yes [id number] 10mg Take 1 [facility] in 3-31 tablet by ity of (JARDIANCE) 00:00: mouth [place] 10 mg 00 every Medical morning. Branch empaglifloz 2022-0 Yes [id number] 10mg Take 1 [facility] in 3-31 tablet by ity of (JARDIANCE) 00:00: mouth [place] 10 mg 00 every Medical morning. Branch empaglifloz 2022-0 Yes [id number] 10mg Take 1 [facility] in 3-31 tablet by ity of (JARDIANCE) 00:00: mouth [place] 10 mg 00 every Medical morning. Branch empaglifloz 2022-0 Yes [id number] 10mg Take 1 [facility] in 3-31 tablet by ity of (JARDIANCE) 00:00: mouth [place] 10 mg 00 every Medical morning. Branch empaglifloz 2022-0 2022- No [id number] 10mg Take 1 [facility] in 3-31 10-25 tablet by ity of ([place]) 00:00: 00:00 [facility] [place] 10 mg 00 :00 every Medical morning. Branch empaglifloz 2022-0 2022- No [id number] 10mg Take 1 [facility] in 3-31 10-25 tablet by ity of (J[facility]IANCE) 00:00: 00:00 mouth [place] 10 mg 00 :00 every Medical morning. Branch empaglifloz 2022-0 2022- No [id number] 10mg Take 1 [facility] in 3-31 10-25 tablet by ity of (J[place]) 00:00: 00:00 mouth [place] 10 mg 00 :00 every Medical morning. Branch empaglifloz 2022-0 2022- No [id number] 10mg Take 1 [facility] in 3-31 10-25 tablet by ity of (J[facility]IANCE) 00:00: 00:00 mouth [place] 10 mg 00 :00 every Medical morning. Branch empaglifloz 2021- No [id number] 10mg Take 1 [facility] in 3- 10-25 tablet by ity of (J[place]) 00:00: 00:00 [facility] [place] 10 mg 00 :00 every Medical morning. Branch furosemide Yes [id number] 80mg Take 2 [facility] (LASIX) 40 2-25 02 tablets by ity of mg tablet 00:00: mouth [place] 00 every Medical morning Branch and evening. furosemide Yes [id number] 80mg Take 2 [facility] (LASIX) 40 2-25 02 tablets by ity of mg tablet 00:00: mouth [place] 00 every Medical morning Branch and evening. furosemide Yes [id number] 80mg Take 2 [facility] (LASIX) 40 2-25 02 tablets by ity of mg tablet 00:00: mouth [place] 00 every Medical morning Branch and evening. furosemide Yes [id number] 80mg Take 2 [facility] (LASIX) 40 2-25 02 tablets by [facility]y of mg tablet 00:00: mouth [place] 00 every Medical morning Branch and evening. furosemide 0 Yes [id number] 80mg Take 2 [facility] (LASIX) 40 2-25 02 tablets by ity of mg tablet 00:00: mouth [place] 00 every Medical morning Branch and evening. furosemide 0 Yes [id number] 80mg Take 2 [facility] (LASIX) 40 2-25 02 tablets by ity of mg tablet 00:00: mouth [place] 00 every Medical morning Branch and evening. furosemide 0 Yes [id number] 80mg Take 2 [facility] (LASIX) 40 2-25 02 tablets by [facility] of mg tablet 00:00: mouth [place] 00 every Medical morning Branch and evening. furosemide 2021-0 Yes [id number] 80mg Take 2 [facility] (LASIX) 40 2-25 02 tablets by [facility] of mg tablet 00:00: mouth [place] 00 every Medical morning Branch and evening. furosemide 0 Yes [id number] 80mg Take 2 [facility] (LASIX) 40 2-25 02 tablets by ity of mg tablet 00:00: mouth [place] 00 every Medical morning Branch and evening. furosemide 2021-0 Yes [id number] 80mg Take 2 [facility] (LASIX) 40 2-25 02 tablets by [facility]y of mg tablet 00:00: mouth [place] 00 every Medical morning Branch and evening. furosemide 2021-0 Yes [id number] 80mg Take 2 [facility] (LASIX) 40 2-25 02 tablets by [facility] of mg tablet 00:00: mouth [place] 00 every Medical morning Branch and evening. furosemide 2021-0 Yes [id number] 80mg Take 2 [facility] (LASIX) 40 2-25 02 tablets by [facility] of mg tablet 00:00: mouth [place] 00 every Medical morning Branch and evening. furosemide 2021-0 Yes [id number] 80mg Take 2 [facility] (LASIX) 40 2-25 02 tablets by ity of mg tablet 00:00: mouth [place] 00 every Medical morning Branch and evening. furosemide 2021-0 Yes [id number] 80mg Take 2 [facility] (LASIX) 40 2-25 02 tablets by [facility]y of mg tablet 00:00: mouth [place] 00 every Medical morning Branch and evening. furosemide 2021-0 Yes [id number] 80mg Take 2 [facility] (LASIX) 40 2-25 02 tablets by [facility] of mg tablet 00:00: mouth [place] 00 every Medical morning Branch and evening. furosemide 2021-0 Yes [id number] 80mg Take 2 [facility] (LASIX) 40 2-25 02 tablets by [facility] of mg tablet 00:00: mouth [place] 00 every Medical morning Branch and evening. furosemide 2021-0 Yes [id number] 80mg Take 2 [facility] (LASIX) 40 2-25 02 tablets by [facility] of mg tablet 00:00: mouth [place] 00 every Medical morning Branch and evening. furosemide 2021-0 Yes [id number] 80mg Take 2 [facility] (LASIX) 40 2-25 02 tablets by [facility] of mg tablet 00:00: mouth [place] 00 every Medical morning Branch and evening. furosemide 2021-0 Yes [id number] 80mg Take 2 [facility] (LASIX) 40 2-25 02 tablets by ity of mg tablet 00:00: mouth [place] 00 every Medical morning Branch and evening. furosemide 2021-0 Yes [id number] 80mg Take 2 [facility] (LASIX) 40 2-25 02 tablets by [facility] of mg tablet 00:00: mouth [place] 00 every Medical morning Branch and evening. furosemide 2021-0 Yes [id number] 80mg Take 2 [facility] (LASIX) 40 2-25 02 tablets by [facility] of mg tablet 00:00: mouth [place] 00 every Medical morning Branch and evening. furosemide 2021-0 Yes [id number] 80mg Take 2 [facility] (LASIX) 40 2-25 02 tablets by [facility] of mg tablet 00:00: mouth [place] 00 every Medical morning Branch and evening. furosemide 2021-0 Yes [id number] 80mg Take 2 [facility] (LASIX) 40 2-25 02 tablets by ity of mg tablet 00:00: mouth [place] 00 every Medical morning Branch and evening. furosemide 2021-0 Yes [id number] 80mg Take 2 [facility] (LASIX) 40 2-25 02 tablets by ity of mg tablet 00:00: mouth [place] 00 every Medical morning Branch and evening. furosemide 2021-0 Yes [id number] 80mg Take 2 [facility] (LASIX) 40 2-25 02 tablets by ity of mg tablet 00:00: mouth [place] 00 every Medical morning Branch and evening. furosemide 2021-0 Yes [id number] 80mg Take 2 [facility] (LASIX) 40 2-25 02 tablets by ity of mg tablet 00:00: mouth [place] 00 every Medical morning Branch and evening. furosemide 2021-0 Yes [id number] 80mg Take 2 [facility] (LASIX) 40 2-25 02 tablets by ity of mg tablet 00:00: mouth [place] 00 every Medical morning Branch and evening. furosemide 2021-0 Yes [id number] 80mg Take 2 [facility] (LASIX) 40 2-25 02 tablets by ity of mg tablet 00:00: mouth [place] 00 every Medical morning Branch and evening. furosemide 2021-0 Yes [id number] 80mg Take 2 [facility] (LASIX) 40 2-25 02 tablets by ity of mg tablet 00:00: mouth [place] 00 every Medical morning Branch and evening. furosemide 2021-0 Yes [id number] 80mg Take 2 [facility] (LASIX) 40 2-25 02 tablets by ity of mg tablet 00:00: mouth [place] 00 every Medical morning Branch and evening. furosemide 2021-0 Yes [id number] 80mg Take 2 [facility] (LASIX) 40 2-25 02 tablets by ity of mg tablet 00:00: mouth [place] 00 every Medical morning Branch and evening. furosemide 2021-0 Yes [id number] 80mg Take 2 [facility] (LASIX) 40 2-25 02 tablets by ity of mg tablet 00:00: mouth [place] 00 every Medical morning Branch and evening. furosemide 2021-0 Yes [id number] 80mg Take 2 [facility] (LASIX) 40 2-25 02 tablets by ity of mg tablet 00:00: mouth [place] 00 every Medical morning Branch and evening. furosemide 2021-0 Yes [id number] 80mg Take 2 [facility] (LASIX) 40 2-25 02 tablets by ity of mg tablet 00:00: mouth [place] 00 every Medical morning Branch and evening. furosemide 2021-0 Yes [id number] 80mg Take 2 [facility] (LASIX) 40 2-25 02 tablets by ity of mg tablet 00:00: mouth [place] 00 every Medical morning Branch and evening. furosemide 2021-0 Yes [id number] 80mg Take 2 [facility] (LASIX) 40 2-25 02 tablets by ity of mg tablet 00:00: mouth [place] 00 every Medical morning Branch and evening. furosemide 2021-0 Yes [id number] 80mg Take 2 [facility] (LASIX) 40 2-25 02 tablets by ity of mg tablet 00:00: mouth [place] 00 every Medical morning Branch and evening. furosemide 2021-0 Yes [id number] 80mg Take 2 [facility] (LASIX) 40 2-25 02 tablets by ity of mg tablet 00:00: mouth [place] 00 every Medical morning Branch and evening. furosemide 2021-0 Yes [id number] 80mg Take 2 [facility] (LASIX) 40 2-25 02 tablets by ity of mg tablet 00:00: mouth [place] 00 every Medical morning Branch and evening. furosemide 2021-0 Yes [id number] 80mg Take 2 [facility] (LASIX) 40 2-25 02 tablets by ity of mg tablet 00:00: mouth [place] 00 every Medical morning Branch and evening. furosemide 2021-0 Yes [id number] 80mg Take 2 [facility] (LASIX) 40 2-25 02 tablets by ity of mg tablet 00:00: mouth [place] 00 every Medical morning Branch and evening. furosemide 2021-0 Yes [id number] 80mg Take 2 [facility] (LASIX) 40 2-25 02 tablets by ity of mg tablet 00:00: mouth [place] 00 every Medical morning Branch and evening. furosemide Yes [id number] 80mg Take 2 [facility] (LASIX) 40 2-25 02 tablets by ity of mg tablet 00:00: mouth [place] 00 every Medical morning Branch and evening. furosemide Yes [id number] 80mg Take 2 [facility] (LASIX) 40 2-25 02 tablets by ity of mg tablet 00:00: mouth [place] 00 every Medical morning Branch and evening. furosemide Yes [id number] 80mg Take 2 [facility] (LASIX) 40 2-25 02 tablets by ity of mg tablet 00:00: mouth [place] 00 every Medical morning Branch and evening. furosemide Yes [id number] 80mg Take 2 [facility] (LASIX) 40 2-25 02 tablets by ity of mg tablet 00:00: mouth [place] 00 every Medical morning Branch and evening. furosemide Yes [id number] 80mg Take 2 [facility] (LASIX) 40 2-25 02 tablets by ity of mg tablet 00:00: mouth [place] 00 every Medical morning Branch and evening. furosemide Yes [id number] 80mg Take 2 [facility] (LASIX) 40 2-25 02 tablets by ity of mg tablet 00:00: mouth [place] 00 every Medical morning Branch and evening. furosemide 2021- No [id number] 80mg Take 2 [facility] (LASIX) 40 2-25 10-25 02 tablets by it y of mg tablet 00:00: 00:00 mouth [place] 00 :00 every Medical morning Branch and evening. furosemide 2021- No [id number] 80mg Take 2 [facility] (LASIX) 40 2-25 10-25 02 tablets by it y of mg tablet 00:00: 00:00 mouth [place] 00 :00 every Medical morning Branch and evening. furosemide 2021- No [id number] 80mg Take 2 [facility] (LASIX) 40 2-25 10-25 02 tablets by it y of mg tablet 00:00: 00:00 mouth [place] 00 :00 every Medical morning Branch and evening. furosemide 2021- No [id number] 80mg Take 2 [facility] (LASIX) 40 2-25 10-25 02 tablets by it y of mg tablet 00:00: 00:00 mouth [place] 00 :00 every Medical morning Branch and evening. furosemide 2021- No [id number] 80mg Take 2 [facility] (LASIX) 40 2-25 10-25 02 tablets by it y of mg tablet 00:00: 00:00 mouth [place] 00 :00 every Medical morning Branch and evening. furosemide 2021- No [id number] 80mg Take 2 [facility] (LASIX) 40 2-25 10-25 02 tablets by it y of mg tablet 00:00: 00:00 mouth [place] 00 :00 every Medical morning Branch and evening. furosemide 2021- No [id number] 80mg Take 2 [facility] (LASIX) 40 2-25 10-25 02 tablets by it y of mg tablet 00:00: 00:00 mouth [place] 00 :00 every Medical morning Branch and evening. budesonide 2021- No USE 1 VIAL [facility] 0.25 mg/2 2-24 IN ity of mL 00:00: 00:00 NEBULIZER [place] nebulizer 00 :00 TWICE Medical solution DAILY Branch budesonide 2021- No USE 1 VIAL [facility] 0.25 mg/2 12-28-24 IN ity of mL 00:00: 00:00 NEBULIZER [place] nebulizer 00 :00 TWICE Medical solution DAILY Branch budesonide 2021- No USE 1 VIAL [facility] 0.25 mg/2 12-28-24 IN ity of mL 00:00: 00:00 NEBULIZER [place] nebulizer 00 :00 TWICE Medical solution DAILY Branch COMP-AIR 2020-11 Yes 10mg Take 10 mg Uni vers NEBULIZER 208 by mouth. ity o f COMPRESSOR 00:00: [place] Abbie 00 Medical Branch loteprednol 2020-11 Yes SHAKE Unive rs 0.5 % 208 LIQUID AND ity of ophthalmic 00:00: INSTILL 1 [place] suspension 00 DROP IN Medica l drops BOTH EYES Branch TWICE DAILY OPTICHAMBER 2020-11 Yes 10mg Take 10 mg Univers EVON LG 2-08 by mouth. ity of MASK Spcr 00:00: 00 Medical Branch COMP-AIR 2020-11 Yes 10mg Take 10 mg Uni vers NEBULIZER 2-08 by mouth. ity o f COMPRESSOR 00:00: Medical Branch loteprednol 2020-11 Yes SHAKE Unive rs 0.5 % 2-08 LIQUID AND ity of ophthalmic 00:00: INSTILL 1 [place] suspension 00 DROP IN Medica l drops BOTH EYES Branch TWICE DAILY 2020-11 Yes 10mg Take 10 mg Univers [...] l drops BOTH EYES Branch TWICE DAILY 2020-11 Yes 10mg Take 10 mg [facility] EVON LG 2-08 by mouth. ity of MASK Spcr 00:00: [facility] Branch COMP-AIR 2020-11 Yes 10mg Take 10 mg Uni vers NEBULIZER 2-08 by mouth. ity o f COMPRESSOR 00:00: Medical Branch loteprednol 2020-11 Yes SHAKE Unive rs 0.5 % 2-08 LIQUID AND ity of ophthalmic 00:00: INSTILL 1 [place] suspension 00 DROP IN Medica l drops BOTH EYES Branch TWICE DAILY 2020-11 Yes 10mg Take 10 mg Univers [...] l drops BOTH EYES Branch TWICE DAILY 2020-11 Yes 10mg Take 10 mg Univers [...] l drops BOTH EYES Branch TWICE DAILY 2020-11 Yes 10mg Take 10 mg Univers [...] l drops BOTH EYES Branch TWICE DAILY 2020-11 Yes 10mg Take 10 mg [facility] EVON LG 2-08 by mouth. ity of MASK Spcr 00:00: [facility] Branch COMP-AIR 2020-11 Yes 10mg Take 10 mg Uni vers NEBULIZER 2-08 by mouth. ity o f COMPRESSOR 00:00: Medical Branch loteprednol 2020-11 Yes SHAKE Unive rs 0.5 % 2-08 LIQUID AND ity of ophthalmic 00:00: INSTILL 1 [place] suspension 00 DROP IN Medica l drops BOTH EYES Branch TWICE DAILY 2020-11 Yes 10mg Take 10 mg Univers [...] l drops BOTH EYES Branch TWICE DAILY 2020-11 Yes 10mg Take 10 mg Univers [...] l drops BOTH EYES Branch TWICE DAILY 2020-11 Yes 10mg Take 10 mg Univers [...] l drops BOTH EYES Branch TWICE DAILY 2020-11 Yes 10mg Take 10 mg [facility] EVON LG 2-08 by mouth. ity of MASK Spcr 00:00: [facility] Branch COMP-AIR 2020-11 Yes 10mg Take 10 mg Uni vers NEBULIZER 2-08 by mouth. ity o f COMPRESSOR 00:00: Medical Branch loteprednol 2020-11 Yes SHAKE Unive rs 0.5 % 2-08 LIQUID AND ity of ophthalmic 00:00: INSTILL 1 [place] suspension 00 DROP IN Medica l drops BOTH EYES Branch TWICE DAILY 2020-11 Yes 10mg Take 10 mg Univers [...] l drops BOTH EYES Branch TWICE DAILY 2020-11 Yes 10mg Take 10 mg Univers [...] l drops BOTH EYES Branch TWICE DAILY 2020-11 Yes 10mg Take 10 mg Univers [...] l drops BOTH EYES Branch TWICE DAILY 2020-11 Yes 10mg Take 10 mg [facility] EVON LG 2-08 by mouth. ity of MASK Spcr 00:00: [facility] Branch COMP-AIR 2020-11 Yes 10mg Take 10 mg Uni vers NEBULIZER 2-08 by mouth. ity o f COMPRESSOR 00:00: Medical Branch loteprednol 2020-11 Yes SHAKE Unive rs 0.5 % 2-08 LIQUID AND ity of ophthalmic 00:00: INSTILL 1 [place] suspension 00 DROP IN Medica l drops BOTH EYES Branch TWICE DAILY 2020-11 Yes 10mg Take 10 mg Univers [...] l drops BOTH EYES Branch TWICE DAILY 2020-11 Yes 10mg Take 10 mg Univers [...] l drops BOTH EYES Branch TWICE DAILY 2020-11 Yes 10mg Take 10 mg Univers [...] l drops BOTH EYES Branch TWICE DAILY 2020-11 Yes 10mg Take 10 mg [facility] EVON LG 2-08 by mouth. ity of MASK Spcr 00:00: [facility] Branch COMP-AIR 2020-11 Yes 10mg Take 10 mg Uni vers NEBULIZER 2-08 by mouth. ity o f COMPRESSOR 00:00: Medical Branch loteprednol 2020-11 Yes SHAKE Unive rs 0.5 % 2-08 LIQUID AND ity of ophthalmic 00:00: INSTILL 1 [place] suspension 00 DROP IN Medica l drops BOTH EYES Branch TWICE DAILY 2020-11 Yes 10mg Take 10 mg Univers [...] l drops BOTH EYES Branch TWICE DAILY 2020-11 Yes 10mg Take 10 mg Univers [...] l drops BOTH EYES Branch TWICE DAILY 2020-11 Yes 10mg Take 10 mg Univers [...] l drops BOTH EYES Branch TWICE DAILY 2020-11 Yes 10mg Take 10 mg [facility] EVON LG 2-08 by mouth. ity of MASK Spcr 00:00: [facility] Branch COMP-AIR 2020-11 Yes 10mg Take 10 mg Uni vers NEBULIZER 2-08 by mouth. ity o f COMPRESSOR 00:00: Medical Branch loteprednol 2020-11 Yes SHAKE Unive rs 0.5 % 2-08 LIQUID AND ity of ophthalmic 00:00: INSTILL 1 [place] suspension 00 DROP IN Medica l drops BOTH EYES Branch TWICE DAILY 2020-11 Yes 10mg Take 10 mg Univers [...] l drops BOTH EYES Branch TWICE DAILY 2020-11 Yes 10mg Take 10 mg Univers [...] l drops BOTH EYES Branch TWICE DAILY 2020-11 Yes 10mg Take 10 mg Univers [...] l drops BOTH EYES Branch TWICE DAILY 2020-11 Yes 10mg Take 10 mg [facility] EVON LG 2-08 by mouth. ity of MASK Spcr 00:00: [facility] Branch COMP-AIR 2020-11 Yes 10mg Take 10 mg Uni vers NEBULIZER 2-08 by mouth. ity o f COMPRESSOR 00:00: Medical Branch loteprednol 2020-11 Yes SHAKE Unive rs 0.5 % 2-08 LIQUID AND ity of ophthalmic 00:00: INSTILL 1 [place] suspension 00 DROP IN Medica l drops BOTH EYES Branch TWICE DAILY 2020-11 Yes 10mg Take 10 mg Univers [...] l drops BOTH EYES Branch TWICE DAILY 2020-11 Yes 10mg Take 10 mg Univers [...] l drops BOTH EYES Branch TWICE DAILY 2020-11 Yes 10mg Take 10 mg Univers [...] l drops BOTH EYES Branch TWICE DAILY 2020-11 Yes 10mg Take 10 mg [facility] EVON LG 2-08 by mouth. ity of MASK Spcr 00:00: [facility] Branch COMP-AIR 2020-11 Yes 10mg Take 10 mg Uni vers NEBULIZER 2-08 by mouth. ity o f COMPRESSOR 00:00: Medical Branch loteprednol 2020-11 Yes SHAKE Unive rs 0.5 % 2-08 LIQUID AND ity of ophthalmic 00:00: INSTILL 1 [place] suspension 00 DROP IN Medica l drops BOTH EYES Branch TWICE DAILY 2020-11 Yes 10mg Take 10 mg Univers [...] l drops BOTH EYES Branch TWICE DAILY 2020-11 Yes 10mg Take 10 mg Univers [...] l drops BOTH EYES Branch TWICE DAILY 2020-11 Yes 10mg Take 10 mg Univers [...] l drops BOTH EYES Branch TWICE DAILY 2020-11 Yes 10mg Take 10 mg [facility] EVON LG 2-08 by mouth. ity of MASK Spcr 00:00: [facility] Branch COMP-AIR 2020-11 Yes 10mg Take 10 mg Uni vers NEBULIZER 2-08 by mouth. ity o f COMPRESSOR 00:00: Medical Branch loteprednol 2020-11 Yes SHAKE Unive rs 0.5 % 2-08 LIQUID AND ity of ophthalmic 00:00: INSTILL 1 [place] suspension 00 DROP IN Medica l drops BOTH EYES Branch TWICE DAILY 2020-11 Yes 10mg Take 10 mg Univers [...] l drops BOTH EYES Branch TWICE DAILY 2020-11 Yes 10mg Take 10 mg Univers [...] l drops BOTH EYES Branch TWICE DAILY 2020-11 Yes 10mg Take 10 mg Univers [...] l drops BOTH EYES Branch TWICE DAILY 2020-11 Yes 10mg Take 10 mg [facility] EVON LG 2-08 by mouth. ity of MASK Spcr 00:00: [facility] Branch COMP-AIR 2020-11 Yes 10mg Take 10 mg Uni vers NEBULIZER 2-08 by mouth. ity o f COMPRESSOR 00:00: Medical Branch loteprednol 2020-11 Yes SHAKE Unive rs 0.5 % 2-08 LIQUID AND ity of ophthalmic 00:00: INSTILL 1 [place] suspension 00 DROP IN Medica l drops BOTH EYES Branch TWICE DAILY 2020-11 Yes 10mg Take 10 mg Univers [...] l drops BOTH EYES Branch TWICE DAILY 2020-11 Yes 10mg Take 10 mg Univers [...] l drops BOTH EYES Branch TWICE DAILY 2020-11 Yes 10mg Take 10 mg Univers [...] l drops BOTH EYES Branch TWICE DAILY 2020-11 Yes 10mg Take 10 mg [facility] EVON LG 2-08 by mouth. ity of MASK Spcr 00:00: [facility] Branch COMP-AIR 2020-11 Yes 10mg Take 10 mg Uni vers NEBULIZER 2-08 by mouth. ity o f COMPRESSOR 00:00: Medical Branch loteprednol 2020-11 Yes SHAKE Unive rs 0.5 % 2-08 LIQUID AND ity of ophthalmic 00:00: INSTILL 1 [place] suspension 00 DROP IN Medica l drops BOTH EYES Branch TWICE DAILY 2020-11 Yes 10mg Take 10 mg Univers [...] l drops BOTH EYES Branch TWICE DAILY 2020-11 Yes 10mg Take 10 mg Univers [...] l drops BOTH EYES Branch TWICE DAILY 2020-11 Yes 10mg Take 10 mg Univers [...] l drops BOTH EYES Branch TWICE DAILY 2020-11 Yes 10mg Take 10 mg [facility] EVON LG 2-08 by mouth. ity of MASK Spcr 00:00: [facility] Branch COMP-AIR 2020-11 Yes 10mg Take 10 mg Uni vers NEBULIZER 2-08 by mouth. ity o f COMPRESSOR 00:00: Medical Branch loteprednol 2020-11 Yes SHAKE Unive rs 0.5 % 2-08 LIQUID AND ity of ophthalmic 00:00: INSTILL 1 [place] suspension 00 DROP IN Medica l drops BOTH EYES Branch TWICE DAILY 2020-11 Yes 10mg Take 10 mg Univers [...] l drops BOTH EYES Branch TWICE DAILY 2020-11 Yes 10mg Take 10 mg Univers [...] l drops BOTH EYES Branch TWICE DAILY 2020-11 Yes 10mg Take 10 mg Univers [...] l drops BOTH EYES Branch TWICE DAILY 2020-11 Yes 10mg Take 10 mg [facility] EVON LG 2-08 by mouth. ity of MASK Spcr 00:00: [facility] Branch COMP-AIR 2020-11 Yes 10mg Take 10 mg Uni vers NEBULIZER 2-08 by mouth. ity o f COMPRESSOR 00:00: Medical Branch loteprednol 2020-11 Yes SHAKE Unive rs 0.5 % 2-08 LIQUID AND ity of ophthalmic 00:00: INSTILL 1 [place] suspension 00 DROP IN Medica l drops BOTH EYES Branch TWICE DAILY 2020-11 Yes 10mg Take 10 mg Univers [...] l drops BOTH EYES Branch TWICE DAILY 2020-11 Yes 10mg Take 10 mg Univers [...] l drops BOTH EYES Branch TWICE DAILY 2020-11 Yes 10mg Take 10 mg Univers [...] l drops BOTH EYES Branch TWICE DAILY 2020-11 Yes 10mg Take 10 mg [facility] EVON LG 2-08 by mouth. ity of MASK Spcr 00:00: [facility] Branch COMP-AIR 2020-11 Yes 10mg Take 10 mg Uni vers NEBULIZER 2-08 by mouth. ity o f COMPRESSOR 00:00: Medical Branch loteprednol 2020-11 Yes SHAKE Unive rs 0.5 % 2-08 LIQUID AND ity of ophthalmic 00:00: INSTILL 1 [place] suspension 00 DROP IN Medica l drops BOTH EYES Branch TWICE DAILY 2020-11 Yes 10mg Take 10 mg Univers [...] l drops BOTH EYES Branch TWICE DAILY 2020-11 Yes 10mg Take 10 mg Univers [...] l drops BOTH EYES Branch TWICE DAILY 2020-11 Yes 10mg Take 10 mg Univers [...] l drops BOTH EYES Branch TWICE DAILY 2020-11 Yes 10mg Take 10 mg [facility] EVON LG 2-08 by mouth. ity of MASK Spcr 00:00: [facility] Branch COMP-AIR 2020-11 Yes 10mg Take 10 mg Uni vers NEBULIZER 2-08 by mouth. ity o f COMPRESSOR 00:00: Medical Branch loteprednol 2020-11 Yes SHAKE Unive rs 0.5 % 2-08 LIQUID AND ity of ophthalmic 00:00: INSTILL 1 [place] suspension 00 DROP IN Medica l drops BOTH EYES Branch TWICE DAILY 2020-11 Yes 10mg Take 10 mg Univers [...] l drops BOTH EYES Branch TWICE DAILY 2020-11 Yes 10mg Take 10 mg Univers [...] l drops BOTH EYES Branch TWICE DAILY 2020-11 Yes 10mg Take 10 mg Univers [...] l drops BOTH EYES Branch TWICE DAILY 2020-11 Yes 10mg Take 10 mg [facility] EVON LG 2-08 by mouth. ity of MASK Spcr 00:00: [facility] Branch COMP-AIR 2020-11 Yes 10mg Take 10 mg Uni vers NEBULIZER 2-08 by mouth. ity o f COMPRESSOR 00:00: Medical Branch loteprednol 2020-11 Yes SHAKE Unive rs 0.5 % 2-08 LIQUID AND ity of ophthalmic 00:00: INSTILL 1 [place] suspension 00 DROP IN Medica l drops BOTH EYES Branch TWICE DAILY 2020-11 Yes 10mg Take 10 mg Univers [...] l drops BOTH EYES Branch TWICE DAILY 2020-11 Yes 10mg Take 10 mg Univers [...] by mouth. ity o f COMPRESSOR 00:00: [place] Abbie 00 Medical Branch loteprednol 2020-11 Yes SHAKE Unive rs 0.5 % 2-08 LIQUID AND ity of ophthalmic 00:00: INSTILL 1 [place] suspension 00 DROP IN Medica l drops BOTH EYES Branch TWICE DAILY COMP-AIR 2020-11 Yes 10mg Take 10 mg Uni vers NEBULIZER 2-08 by mouth. ity o f COMPRESSOR 00:00: [place] Abbie 00 Medical Branch loteprednol 2020-11 Yes SHAKE Unive rs 0.5 % 2-08 LIQUID AND ity of ophthalmic 00:00: INSTILL 1 [place] suspension 00 DROP IN Medica l drops BOTH EYES Branch TWICE DAILY OPTICHAMBER 2020-11- No 10mg Take 10 mg [facility] EVON LG 12-31 10-31 by mouth. ity of MASK Spcr 00:00: 00:00 [place] 00 :00 Medical Branch OPTICHAMBER 2020-11- No 10mg Take 10 mg [facility] EVON LG 12-31 1031 by mouth. ity of MASK Spcr 00:00: 00:00 [place] 00 :00 Medical Branch albuterol 2020-11- No USE 3 ML Uni vers 2.5 mg /3 2 08-24 VIA ity of mL (0.083 00:00: 00:00 NEBULIZER [place] 00 :00 TWICE Medical nebulizer DAILY Branch solution NEEDED albuterol 2020-11- No USE 3 ML Uni vers 2.5 mg /3 2-24 VIA ity of mL (0.083 00:00: 00:00 NEBULIZER [place] 00 :00 TWICE Medical nebulizer DAILY Branch solution NEEDED albuterol 2020-11- No USE 3 ML Uni vers 2.5 mg /3 2 08-24 VIA ity of mL (0.083 00:00: 00:00 [...] [place] tablet 00 :00 daily. [facility] Branch isosorbide 2020-11- No 60mg Take 2 Univ ers mononitrate 0-27 11-07 tablets by i ty of 30 mg 24 hr 00:00: 00:00 [place] tablet 00 :00 daily. Medical Branch morpHINE Yes 2mg 2 mg, Slow Uni vers injection 2 07 IV Push, ity of mg 14:17: Q5MIN PRN, [place] 42 5 doses, Medical Starting Branch Thu03/29/21 at 0917, Until Discontinu ed, Routine, Pain (scale 7-10), PACU ondansetron Yes 4mg 4 mg, Slow Univers (ZOFRAN 03-29 IV Push, ity of (PF)) 14:17: PRN, 1 [place] injection 4 42 dose, Medical mg Starting Branch Thu03/29/21 at 0917, Until Discontinu ed, Routine, Nausea and Vomiting (N/V), PACU FENTanyl PF Yes 25ug 25 mcg, Uni vers (SUBLIMAZE 5-07 Slow IV ity of (PF)) 14:17: Push, [place] injection 41 Q5MIN PRN, Medi johnathon 25 mcg 4 doses, Branch Starting Thu03/29/21 at 0917, Until Discontinu ed, Routine, Pain (scale 4-6), PACU sugammadex 2020- No IV Push, Un lesly (BRIDION) 03-29- ONCE INTRA ity of injection 14:01: 14:26 PROCEDURE, [place] 00 :11 Starting Medical Thu03/29/21 Branch at 0901, Until Thu03/29/21 at 0926, Routine, Intra-op ondansetron 2020- No Slow IV Un lesly (ZOFRAN 03-29-07 Push, ONCE ity o f (PF)) 14:01: 14:26 INTRA [place] injection 00 :11 PROCEDURE, Medi johnathon Starting Branch Thu03/29/21 at 0901, Until Thu03/29/21 at 09, Routine, Intra-op sodium Yes PRN, Univers chloride 03-29 Starting ity of 0.9 % 13:42: Thu03/29/21 [place] irrigation 00 at 0842, Medic al solution Until Branch Discontinu ed, Intra-op acetaminoph 2020- No IV Unive rs en ADULT 03-29 Infusion, ity o f (OFIRMEV) 13:42: 14:26 Administer [place] injection 00 :11 over 15 Medical Minutes, Branch ONCE INTRA PROCEDURE, Starting Thu03/29/21 at 0842, Until Thu03/29/21 at 925, Routine, Intra-op bupivacaine Yes PRN, Univer s (preserv 03-29 Starting ity of free) 13:41: Thu03/29/21 [place] (SENSORCAIN 00 at 0841, Medi johnathon E MPF) 0.25 Until Branch % (2.5 Discontinu mg/mL) ed, injection Routine, Intra-op PHENYLephri 2020- No Slow IV Un lesly ne 1000 03-29 Push, ONCE ity o f mcg/10 mL 13:34: 14:26 INTRA [place] in 0.9% 00 :11 PROCEDURE, Medica l NaCl Starting Branch syringe Thu03/29/21 at 0834, Until Thu03/29/21 at 09, Routine, Intra-op ceFAZolin 2020- No IV Univers (ANCEF) 03-29 Piggyback, ity o f injection 13:32: 14:26 ONCE INTRA [place] 00 :11 PROCEDURE, Medical Starting Branch Thu03/29/21 at 0832, Until Thu03/29/21 at 09, DELFIN, Intra-op succinylcho 2020- No IV Push, U nivers line 03-29 ONCE INTRA ity of (QUELICIN) 13:24: 14:26 PROCEDURE, [place] injection 00 :11 Starting Medica l 03/29/21 Branch at 0824, Until Thu03/29/21 at 09, [...] Branch Thu03/29/21 at 0809, Until Thu03/29/21 at 09, Routine, Intra-op acetaminoph 2021- No [place] of 650mg Take 2 Univers en 03-29-08 neck tablets by ity of (TYLENOL) 00:00: 04:59 mouth [place] 325 mg 00 :00 every 6 Medical tablet (six) Branch hours as needed for Pain (scale 1-3). HYDROcodone 2020- No acute pain 1{tbl} Take 1 Univers -acetaminop 03-29-15 tablet by it y of hen (NORCO) [...] [place] as hr tablet 00 fibrillatio daily. alfred fong) Branch metoprolol Yes PAF 50mg Take 1 Unive rs succinate 2-04 (paroxysmal tablet by ity of XL 50 mg 24 00:00: atrial mouth [place] as hr tablet 00 fibrillatio daily. alfred n) Branch metoprolol Yes PAF 50mg Take 1 Unive rs succinate 2-04 (paroxysmal tablet by ity of XL 50 mg 24 00:00: atrial mouth [place] as hr tablet 00 fibrillatio daily. alfred fong) Branch metoprolol Yes PAF 50mg Take 1 Unive rs succinate 2-04 (paroxysmal tablet by ity of XL 50 mg 24 00:00: atrial mouth [place] as hr tablet 00 fibrillatio daily. alfred n) Branch furosemide Yes Chronic 80 mg AM Univers (LASIX) 40 2-01 heart and 40 mg ity of mg tablet 00:00: failure PM [place] with Medical preserved Branch ejection fraction furosemide Yes Chronic 80 mg AM Univers (LASIX) 40 2-01 heart and 40 mg ity of mg tablet 00:00: failure PM with Medical preserved Branch ejection fraction furosemide Yes Chronic 80 mg AM Univers (LASIX) 40 2-01 heart and 40 mg ity of mg tablet 00:00: failure PM with Medical preserved Branch ejection fraction furosemide Yes Chronic 80 mg AM Univers (LASIX) 40 2-01 heart and 40 mg ity of mg tablet 00:00: failure PM [place] 00 with Medical preserved Branch ejection fraction empaglifloz [...] 00 complicatio morning. Medical n Branch atorvastati 2020- Yes TAKE 1 Univ ers n 40 mg 2-21 TABLET BY ity of tablet 00:00: MOUTH AT [place] BEDTIME Medical Branch atorvastati 2020- Yes TAKE 1 Univ ers n 40 mg 2-21 TABLET BY ity of tablet 00:00: MOUTH AT [place] BEDTIME Medical Branch atorvastati 2020- Yes TAKE 1 Univ ers n 40 mg 2-21 TABLET BY ity of tablet 00:00: MOUTH AT [place] BEDTIME Medical Branch atorvastati 2020- Yes TAKE 1 Univ ers n 40 mg 2-21 TABLET BY ity of tablet 00:00: MOUTH AT [place] BEDTIME Medical Branch simethicone 2020- Yes Mesenteric 80mg Take 1 Univers 80 mg 2-10 panniculiti tablet by it y of chewable 00:00: s mouth [place] tablet 00 after Medical meals and Branch at bedtime. simethicone 2020- Yes Mesenteric 80mg Take 1 Univers 80 mg 2-10 panniculiti tablet by it y of chewable 00:00: s mouth [place] tablet 00 after Medical meals and Branch at bedtime. simethicone 2020- Yes Mesenteric 80mg Take 1 Univers 80 mg 2-10 panniculiti tablet by it y of chewable 00:00: s mouth [place] tablet 00 after Medical meals and Branch at bedtime. simethicone 2020-1 Yes Mesenteric 80mg Take 1 Univers 80 [...] every Medical morning. Branch aspirin 81 2019-11 No TIA 81mg Take 1 Univ ers mg chewable 0-08 03-20 (transient tablet by ity of tablet 00:00: 00:00 ischemic mouth [place] 00 :00 attack) daily. Medical Branch Aspirin 0 No 325 mg, Memoria 6-30 Route: PO, l 01:31: Drug form: [place] 00 TAB, ONCE, Dosing Weight 88.636, kg, Priority: STAT, Start date: 05/21/15 20:31:00, Stop date: 05/21/15 20:31:00 Aspirin 2014-0 No 325 mg, Memoria 6-30 Route: PO, l 01:31: Drug form: [place] 00 TAB, ONCE, Dosing Weight 88.636, kg, Priority: STAT, Start date: 05/21/15 20:31:00, Stop date: 05/21/15 20:31:00 Aspirin 2014-0 No 325 mg, [place] 6-30 Route: PO, l 01:31: Drug form: [place] 00 TAB, ONCE, Dosing Weight 88.636, kg, Priority: STAT, Start date: 05/21/15 20:31:00, Stop date: 05/21/15 20:31:00 Immunizations Ordered Filled Immunization Date Status Comments [facility] e Immunization Name Name Pneumococcal 2021-08-20 Completed [...] [facility] PFIZER VACCINE 00:00:00 [facility] SARS-COV-2 COVID-19 2021-02-28 Completed [facility] PFIZER VACCINE 00:00:00 [facility] SARS-COV-2 COVID-19 2021-02-28 Completed [facility] PFIZER VACCINE 00:00:00 [facility] SARS-COV-2 COVID-19 2021-02-28 Completed [facility] PFIZER VACCINE 00:00:00 [facility] SARS-COV-2 COVID-19 2021-02-28 Completed [facility] PFIZER VACCINE 00:00:00 [facility] SARS-COV-2 COVID-19 2021-02-28 Completed [facility] PFIZER VACCINE 00:00:00 [facility] SARS-COV-2 COVID-19 2021-02-28 Completed [facility] PFIZER VACCINE 00:00:00 [facility] SARS-COV-2 COVID-19 2021-02-28 Completed [facility] PFIZER VACCINE 00:00:00 [facility] SARS-COV-2 COVID-19 2021-02-28 Completed [facility] PFIZER VACCINE 00:00:00 [facility] SARS-COV-2 COVID-19 2021-02-28 Completed [facility] PFIZER VACCINE 00:00:00 [facility] SARS-COV-2 COVID-19 2021-02-28 Completed [facility] PFIZER VACCINE 00:00:00 [facility] SARS-COV-2 COVID-19 2021-02-28 Completed [facility] PFIZER VACCINE 00:00:00 [facility] SARS-COV-2 COVID-19 2021-02-28 Completed [facility] PFIZER VACCINE 00:00:00 [facility] SARS-COV-2 COVID-19 2021-02-28 Completed [facility] PFIZER VACCINE 00:00:00 [facility] SARS-COV-2 COVID-19 2021-02-28 Completed [facility] PFIZER VACCINE 00:00:00 [facility] SARS-COV-2 COVID-19 2021-02-28 Completed [facility] PFIZER VACCINE 00:00:00 [facility] SARS-COV-2 COVID-19 2021-02-28 Completed [facility] PFIZER VACCINE 00:00:00 [facility] SARS-COV-2 COVID-19 2021-02-28 Completed [facility] PFIZER VACCINE 00:00:00 [facility] SARS-COV-2 COVID-19 2021-02-28 Completed [facility] PFIZER VACCINE 00:00:00 [facility] SARS-COV-2 COVID-19 2021-02-28 Completed [facility] PFIZER VACCINE 00:00:00 [facility] SARS-COV-2 COVID-19 2021-02-28 Completed [facility] PFIZER VACCINE 00:00:00 [facility] SARS-COV-2 COVID-19 2021-02-28 Completed [facility] PFIZER VACCINE 00:00:00 [facility] SARS-COV-2 COVID-19 2021-02-28 Completed [facility] PFIZER VACCINE 00:00:00 [facility] SARS-COV-2 COVID-19 2021-02-28 Completed [facility] PFIZER VACCINE 00:00:00 [facility] SARS-COV-2 COVID-19 2021-02-28 Completed [facility] PFIZER VACCINE 00:00:00 [facility] SARS-COV-2 COVID-19 2021-02-28 Completed [facility] PFIZER VACCINE 00:00:00 [facility] SARS-COV-2 COVID-19 2021-02-28 Completed [facility] PFIZER VACCINE 00:00:00 [facility] SARS-COV-2 COVID-19 2021-02-28 Completed [facility] PFIZER VACCINE 00:00:00 [facility] SARS-COV-2 COVID-19 2021-02-28 Completed [facility] PFIZER VACCINE 00:00:00 [facility] SARS-COV-2 COVID-19 2021-02-28 Completed [facility] PFIZER VACCINE 00:00:00 [facility] SARS-COV-2 COVID-19 2021-02-28 Completed [facility] PFIZER VACCINE 00:00:00 [facility] SARS-COV-2 COVID-19 2021-02-28 Completed [facility] PFIZER VACCINE 00:00:00 [facility] SARS-COV-2 COVID-19 2021-02-28 Completed [facility] PFIZER VACCINE 00:00:00 [facility] SARS-COV-2 COVID-19 2021-02-28 Completed [facility] PFIZER VACCINE 00:00:00 [facility] SARS-COV-2 COVID-19 2021-02-28 Completed [facility] PFIZER VACCINE 00:00:00 [facility] SARS-COV-2 COVID-19 2021-02-28 Completed [facility] PFIZER VACCINE 00:00:00 [facility] SARS-COV-2 COVID-19 2021-02-28 Completed [facility] PFIZER VACCINE 00:00:00 [facility] SARS-COV-2 COVID-19 2021-02-28 Completed [facility] PFIZER VACCINE 00:00:00 [facility] SARS-COV-2 COVID-19 2021-02-28 Completed [facility] PFIZER VACCINE 00:00:00 [facility] SARS-COV-2 COVID-19 2021-02-28 Completed [facility] PFIZER VACCINE 00:00:00 [facility] SARS-COV-2 COVID-19 2021-02-28 Completed [facility] PFIZER VACCINE 00:00:00 [facility] SARS-COV-2 COVID-19 2021-02-28 Completed [facility] PFIZER VACCINE 00:00:00 [facility] SARS-COV-2 COVID-19 2021-02-28 Completed [facility] PFIZER VACCINE 00:00:00 [facility] SARS-COV-2 COVID-19 2021-02-28 Completed [facility] PFIZER VACCINE 00:00:00 [facility] SARS-COV-2 COVID-19 2021-02-28 Completed [facility] PFIZER VACCINE 00:00:00 [facility] SARS-COV-2 COVID-19 2021-02-28 Completed [facility] PFIZER VACCINE 00:00:00 [facility] SARS-COV-2 COVID-19 2021-02-28 Completed [facility] PFIZER VACCINE 00:00:00 [facility] SARS-COV-2 COVID-19 2021-02-28 Completed [facility] PFIZER VACCINE 00:00:00 [facility] SARS-COV-2 COVID-19 2021-02-28 Completed [facility] PFIZER VACCINE 00:00:00 [facility] SARS-COV-2 COVID-19 2021-02-28 Completed [facility] PFIZER VACCINE 00:00:00 [facility] SARS-COV-2 COVID-19 2021-02-28 Completed [facility] PFIZER VACCINE 00:00:00 [facility] SARS-COV-2 COVID-19 2021-02-28 Completed [facility] PFIZER VACCINE 00:00:00 [facility] SARS-COV-2 COVID-19 2021-02-28 Completed [facility] PFIZER VACCINE 00:00:00 [facility] SARS-COV-2 COVID-19 2021-02-28 Completed [facility] PFIZER VACCINE 00:00:00 [facility] SARS-COV-2 COVID-19 2021-02-28 Completed [facility] PFIZER VACCINE 00:00:00 [facility] SARS-COV-2 COVID-19 2021-02-28 Completed [facility] PFIZER VACCINE 00:00:00 [facility] SARS-COV-2 COVID-19 2021-02-28 Completed [facility] PFIZER VACCINE 00:00:00 [facility] SARS-COV-2 COVID-19 2021-02-28 Completed [facility] PFIZER VACCINE 00:00:00 [facility] SARS-COV-2 COVID-19 2021-02-28 Completed [facility] PFIZER VACCINE 00:00:00 [facility] SARS-COV-2 COVID-19 2021-02-28 Completed [facility] PFIZER VACCINE 00:00:00 [facility] SARS-COV-2 COVID-19 2021-02-28 Completed [facility] PFIZER VACCINE 00:00:00 [facility] SARS-COV-2 COVID-19 2021-02-28 Completed [facility] PFIZER VACCINE 00:00:00 [facility] SARS-COV-2 COVID-19 2021-02-28 Completed [facility] PFIZER VACCINE 00:00:00 [facility] SARS-COV-2 COVID-19 2021-02-28 Completed [facility] PFIZER VACCINE 00:00:00 [facility] SARS-COV-2 COVID-19 2021-02-28 Completed [facility] PFIZER VACCINE 00:00:00 [facility] SARS-COV-2 COVID-19 2021-02-28 Completed [facility] PFIZER VACCINE 00:00:00 [facility] SARS-COV-2 COVID-19 2021-02-28 Completed [facility] PFIZER VACCINE 00:00:00 [facility] SARS-COV-2 COVID-19 2021-02-28 Completed [facility] PFIZER VACCINE 00:00:00 [facility] SARS-COV-2 COVID-19 2021-02-28 Completed [facility] PFIZER VACCINE 00:00:00 [facility] SARS-COV-2 COVID-19 2021-02-28 Completed [facility] PFIZER VACCINE 00:00:00 [facility] SARS-COV-2 COVID-19 2021-02-28 Completed [facility] PFIZER VACCINE 00:00:00 [facility] SARS-COV-2 COVID-19 2021-02-28 Completed [facility] PFIZER VACCINE 00:00:00 [facility] SARS-COV-2 COVID-19 2021-02-28 Completed [facility] PFIZER VACCINE 00:00:00 [facility] SARS-COV-2 COVID-19 2021-02-28 Completed [facility] PFIZER VACCINE 00:00:00 [facility] SARS-COV-2 COVID-19 2021-02-28 Completed [facility] PFIZER VACCINE 00:00:00 [facility] SARS-COV-2 COVID-19 2021-02-28 Completed [facility] PFIZER VACCINE 00:00:00 [facility] SARS-COV-2 COVID-19 2021-02-28 Completed [facility] PFIZER VACCINE 00:00:00 [facility] SARS-COV-2 COVID-19 2021-02-28 Completed [facility] PFIZER VACCINE 00:00:00 [facility] SARS-COV-2 COVID-19 2021-02-28 Completed [facility] PFIZER VACCINE 00:00:00 [facility] SARS-COV-2 COVID-19 2021-02-28 Completed [facility] PFIZER VACCINE 00:00:00 [facility] SARS-COV-2 COVID-19 2021-02-28 Completed [facility] PFIZER VACCINE 00:00:00 [facility] SARS-COV-2 COVID-19 2021-02-28 Completed [facility] PFIZER VACCINE 00:00:00 [facility] SARS-COV-2 COVID-19 2021-02-28 Completed [facility] PFIZER VACCINE 00:00:00 [facility] SARS-COV-2 COVID-19 2021-02-28 Completed [facility] PFIZER VACCINE 00:00:00 [facility] SARS-COV-2 COVID-19 2021-02-28 Completed [facility] PFIZER VACCINE 00:00:00 [facility] SARS-COV-2 COVID-19 2021-02-28 Completed [facility] PFIZER VACCINE 00:00:00 [facility] SARS-COV-2 COVID-19 2021-02-28 Completed [facility] PFIZER VACCINE 00:00:00 [facility] SARS-COV-2 COVID-19 2021-02-28 Completed [facility] PFIZER VACCINE 00:00:00 [facility] SARS-COV-2 COVID-19 2021-02-28 Completed [facility] PFIZER VACCINE 00:00:00 [facility] SARS-COV-2 COVID-19 2021-02-28 Completed [facility] PFIZER VACCINE 00:00:00 [facility] SARS-COV-2 COVID-19 2021-02-28 Completed [facility] PFIZER VACCINE 00:00:00 [facility] SARS-COV-2 COVID-19 2021-02-28 Completed [facility] PFIZER VACCINE 00:00:00 [facility] SARS-COV-2 COVID-19 2021-02-28 Completed [facility] PFIZER VACCINE 00:00:00 [facility] SARS-COV-2 COVID-19 2021-02-28 Completed [facility] PFIZER VACCINE 00:00:00 [facility] SARS-COV-2 COVID-19 2021-02-28 Completed [facility] PFIZER VACCINE 00:00:00 [facility] SARS-COV-2 COVID-19 2021-02-28 Completed [facility] PFIZER VACCINE 00:00:00 [facility] SARS-COV-2 COVID-19 2021-02-28 Completed [facility] PFIZER VACCINE 00:00:00 [facility] SARS-COV-2 COVID-19 2021-02-28 Completed [facility] PFIZER VACCINE 00:00:00 [facility] SARS-COV-2 COVID-19 2021-02-28 Completed [facility] PFIZER VACCINE 00:00:00 [facility] SARS-COV-2 COVID-19 2021-02-28 Completed [facility] PFIZER VACCINE 00:00:00 [facility] SARS-COV-2 COVID-19 2021-02-28 Completed [facility] PFIZER VACCINE 00:00:00 [facility] SARS-COV-2 COVID-19 2021-02-28 Completed [facility] PFIZER VACCINE 00:00:00 [facility] SARS-COV-2 COVID-19 2021-02-28 Completed [facility] PFIZER VACCINE 00:00:00 [facility] SARS-COV-2 COVID-19 2021-02-28 Completed [facility] PFIZER VACCINE 00:00:00 [facility] SARS-COV-2 COVID-19 2021-02-28 Completed [facility] PFIZER VACCINE 00:00:00 [facility] SARS-COV-2 COVID-19 2021-02-28 Completed [facility] PFIZER VACCINE 00:00:00 [facility] SARS-COV-2 COVID-19 2021-02-28 Completed [facility] PFIZER VACCINE 00:00:00 [facility] SARS-COV-2 COVID-19 2021-02-28 Completed [facility] PFIZER VACCINE 00:00:00 [facility] SARS-COV-2 COVID-19 2021-02-28 Completed [facility] PFIZER VACCINE 00:00:00 [facility] SARS-COV-2 COVID-19 2021-02-28 Completed [facility] PFIZER VACCINE 00:00:00 [facility] SARS-COV-2 COVID-19 2021-02-28 Completed [facility] PFIZER VACCINE 00:00:00 [facility] SARS-COV-2 COVID-19 2021-02-28 Completed [facility] PFIZER VACCINE 00:00:00 [facility] SARS-COV-2 COVID-19 2021-02-28 Completed [facility] PFIZER VACCINE 00:00:00 [facility] SARS-COV-2 COVID-19 2021-02-28 Completed [facility] PFIZER VACCINE 00:00:00 [facility] SARS-COV-2 COVID-19 2021-02-28 Completed [facility] PFIZER VACCINE 00:00:00 [facility] SARS-COV-2 COVID-19 2021-02-28 Completed [facility] PFIZER VACCINE 00:00:00 [facility] SARS-COV-2 COVID-19 2021-02-28 Completed [facility] PFIZER VACCINE 00:00:00 [facility] SARS-COV-2 COVID-19 2021-02-28 Completed [facility] PFIZER VACCINE 00:00:00 [facility] SARS-COV-2 COVID-19 2021-02-28 Completed [facility] PFIZER VACCINE 00:00:00 [facility] SARS-COV-2 COVID-19 2021-02-28 Completed [facility] PFIZER VACCINE 00:00:00 [facility] SARS-COV-2 COVID-19 2021-02-28 Completed [facility] PFIZER VACCINE 00:00:00 [facility] SARS-COV-2 COVID-19 2021-02-28 Completed [facility] PFIZER VACCINE 00:00:00 [facility] SARS-COV-2 COVID-19 2021-02-28 Completed [facility] PFIZER VACCINE 00:00:00 [facility] SARS-COV-2 COVID-19 2021-02-28 Completed [facility] PFIZER VACCINE 00:00:00 [facility] SARS-COV-2 COVID-19 2021-02-28 Completed [facility] PFIZER VACCINE 00:00:00 [facility] SARS-COV-2 COVID-19 2021-02-28 Completed [facility] PFIZER VACCINE 00:00:00 [facility] SARS-COV-2 COVID-19 2021-02-28 Completed [facility] PFIZER VACCINE 00:00:00 [facility] SARS-COV-2 COVID-19 2021-02-28 Completed [facility] PFIZER VACCINE 00:00:00 [facility] SARS-COV-2 COVID-19 2021-02-28 Completed [facility] PFIZER VACCINE 00:00:00 [facility] SARS-COV-2 COVID-19 2021-02-28 Completed [facility] PFIZER VACCINE 00:00:00 [facility] SARS-COV-2 COVID-19 2021-02-28 Completed [facility] PFIZER VACCINE 00:00:00 [facility] SARS-COV-2 COVID-19 2021-02-28 Completed [facility] PFIZER VACCINE 00:00:00 [facility] SARS-COV-2 COVID-19 2021-02-28 Completed [facility] PFIZER VACCINE 00:00:00 [facility] SARS-COV-2 COVID-19 2021-02-28 Completed [facility] PFIZER VACCINE 00:00:00 [facility] SARS-COV-2 COVID-19 2021-02-28 Completed [facility] PFIZER VACCINE 00:00:00 [facility] SARS-COV-2 COVID-19 2021-02-28 Completed [facility] PFIZER VACCINE 00:00:00 [facility] SARS-COV-2 COVID-19 2021-02-28 Completed [facility] PFIZER VACCINE 00:00:00 [facility] SARS-COV-2 COVID-19 2021-02-28 Completed [facility] PFIZER VACCINE 00:00:00 [facility] SARS-COV-2 COVID-19 2021-02-28 Completed [facility] PFIZER VACCINE 00:00:00 [facility] SARS-COV-2 COVID-19 2021-02-28 Completed [facility] PFIZER VACCINE 00:00:00 [facility] SARS-COV-2 COVID-19 2021-02-28 Completed [facility] PFIZER VACCINE 00:00:00 [facility] SARS-COV-2 COVID-19 2021-02-28 Completed [facility] PFIZER VACCINE 00:00:00 [facility] SARS-COV-2 COVID-19 2021-02-28 Completed [facility] PFIZER VACCINE 00:00:00 [facility] SARS-COV-2 COVID-19 2021-02-28 Completed [facility] PFIZER VACCINE 00:00:00 [facility] SARS-COV-2 COVID-19 2021-02-06 Completed [facility] PFIZER VACCINE 00:00:00 [facility] SARS-COV-2 COVID-19 2021-02-06 Completed [facility] PFIZER VACCINE 00:00:00 [facility] SARS-COV-2 COVID-19 2021-02-06 Completed [facility] PFIZER VACCINE 00:00:00 [facility] SARS-COV-2 COVID-19 2021-02-06 Completed [facility] PFIZER VACCINE 00:00:00 [facility] SARS-COV-2 COVID-19 2021-02-06 Completed [facility] PFIZER VACCINE 00:00:00 [facility] SARS-COV-2 COVID-19 2021-02-06 Completed [facility] PFIZER VACCINE 00:00:00 [facility] SARS-COV-2 COVID-19 2021-02-06 Completed [facility] PFIZER VACCINE 00:00:00 [facility] SARS-COV-2 COVID-19 2021-02-06 Completed [facility] PFIZER VACCINE 00:00:00 [facility] SARS-COV-2 COVID-19 2021-02-06 Completed [facility] PFIZER VACCINE 00:00:00 [facility] SARS-COV-2 COVID-19 2021-02-06 Completed [facility] PFIZER VACCINE 00:00:00 [facility] SARS-COV-2 COVID-19 2021-02-06 Completed [facility] PFIZER VACCINE 00:00:00 [facility] SARS-COV-2 COVID-19 2021-02-06 Completed [facility] PFIZER VACCINE 00:00:00 [facility] SARS-COV-2 COVID-19 2021-02-06 Completed [facility] PFIZER VACCINE 00:00:00 [facility] SARS-COV-2 COVID-19 2021-02-06 Completed [facility] PFIZER VACCINE 00:00:00 [facility] SARS-COV-2 COVID-19 2021-02-06 Completed [facility] PFIZER VACCINE 00:00:00 [facility] SARS-COV-2 COVID-19 2021-02-06 Completed [facility] PFIZER VACCINE 00:00:00 [facility] SARS-COV-2 COVID-19 2021-02-06 Completed [facility] PFIZER VACCINE 00:00:00 [facility] SARS-COV-2 COVID-19 2021-02-06 Completed [facility] PFIZER VACCINE 00:00:00 [facility] SARS-COV-2 COVID-19 2021-02-06 Completed [facility] PFIZER VACCINE 00:00:00 [facility] SARS-COV-2 COVID-19 2021-02-06 Completed [facility] PFIZER VACCINE 00:00:00 [facility] SARS-COV-2 COVID-19 2021-02-06 Completed [facility] PFIZER VACCINE 00:00:00 [facility] SARS-COV-2 COVID-19 2021-02-06 Completed [facility] PFIZER VACCINE 00:00:00 [facility] SARS-COV-2 COVID-19 2021-02-06 Completed [facility] PFIZER VACCINE 00:00:00 [facility] SARS-COV-2 COVID-19 2021-02-06 Completed [facility] PFIZER VACCINE 00:00:00 [facility] SARS-COV-2 COVID-19 2021-02-06 Completed [facility] PFIZER VACCINE 00:00:00 [facility] SARS-COV-2 COVID-19 2021-02-06 Completed [facility] PFIZER VACCINE 00:00:00 [facility] SARS-COV-2 COVID-19 2021-02-06 Completed [facility] PFIZER VACCINE 00:00:00 [facility] SARS-COV-2 COVID-19 2021-02-06 Completed [facility] PFIZER VACCINE 00:00:00 [facility] SARS-COV-2 COVID-19 2021-02-06 Completed [facility] PFIZER VACCINE 00:00:00 [facility] SARS-COV-2 COVID-19 2021-02-06 Completed [facility] PFIZER VACCINE 00:00:00 [facility] SARS-COV-2 COVID-19 2021-02-06 Completed [facility] PFIZER VACCINE 00:00:00 [facility] SARS-COV-2 COVID-19 2021-02-06 Completed [facility] PFIZER VACCINE 00:00:00 [facility] SARS-COV-2 COVID-19 2021-02-06 Completed [facility] PFIZER VACCINE 00:00:00 [facility] SARS-COV-2 COVID-19 2021-02-06 Completed [facility] PFIZER VACCINE 00:00:00 [facility] SARS-COV-2 COVID-19 2021-02-06 Completed [facility] PFIZER VACCINE 00:00:00 [facility] SARS-COV-2 COVID-19 2021-02-06 Completed [facility] PFIZER VACCINE 00:00:00 [facility] SARS-COV-2 COVID-19 2021-02-06 Completed [facility] PFIZER VACCINE 00:00:00 [facility] SARS-COV-2 COVID-19 2021-02-06 Completed [facility] PFIZER VACCINE 00:00:00 [facility] SARS-COV-2 COVID-19 2021-02-06 Completed [facility] PFIZER VACCINE 00:00:00 [facility] SARS-COV-2 COVID-19 2021-02-06 Completed [facility] PFIZER VACCINE 00:00:00 [facility] SARS-COV-2 COVID-19 2021-02-06 Completed [facility] PFIZER VACCINE 00:00:00 [facility] SARS-COV-2 COVID-19 2021-02-06 Completed [facility] PFIZER VACCINE 00:00:00 [facility] SARS-COV-2 COVID-19 2021-02-06 Completed [facility] PFIZER VACCINE 00:00:00 [facility] SARS-COV-2 COVID-19 2021-02-06 Completed [facility] PFIZER VACCINE 00:00:00 [facility] SARS-COV-2 COVID-19 2021-02-06 Completed [facility] PFIZER VACCINE 00:00:00 [facility] SARS-COV-2 COVID-19 2021-02-06 Completed [facility] PFIZER VACCINE 00:00:00 [facility] SARS-COV-2 COVID-19 2021-02-06 Completed [facility] PFIZER VACCINE 00:00:00 [facility] SARS-COV-2 COVID-19 2021-02-06 Completed [facility] PFIZER VACCINE 00:00:00 [facility] SARS-COV-2 COVID-19 2021-02-06 Completed [facility] PFIZER VACCINE 00:00:00 [facility] SARS-COV-2 COVID-19 2021-02-06 Completed [facility] PFIZER VACCINE 00:00:00 [facility] SARS-COV-2 COVID-19 2021-02-06 Completed [facility] PFIZER VACCINE 00:00:00 [facility] [facility] SARS-COV-2 COVID-19 2021-02-06 Completed [facility] PFIZER VACCINE 00:00:00 [facility] SARS-COV-2 COVID-19 2021-02-06 Completed [facility] of PFIZER VACCINE 00:00:00 [facility] SARS-COV-2 COVID-19 2021-02-06 Completed [facility] of PFIZER VACCINE 00:00:00 [facility] SARS-COV-2 COVID-19 2021-02-06 Completed [facility] of PFIZER VACCINE 00:00:00 [facility] SARS-COV-2 COVID-19 2021-02-06 Completed [facility] of PFIZER VACCINE 00:00:00 [facility] SARS-COV-2 COVID-19 2021-02-06 Completed [facility] of PFIZER VACCINE 00:00:00 [facility] SARS-COV-2 COVID-19 2021-02-06 Completed [facility] of PFIZER VACCINE 00:00:00 [facility] SARS-COV-2 COVID-19 2021-02-06 Completed [facility] of PFIZER VACCINE 00:00:00 [facility] SARS-COV-2 COVID-19 2021-02-06 Completed [facility] of PFIZER VACCINE 00:00:00 [facility] SARS-COV-2 COVID-19 2021-02-06 Completed [facility] of PFIZER VACCINE 00:00:00 [facility] SARS-COV-2 COVID-19 2021-02-06 Completed [facility] of PFIZER VACCINE 00:00:00 [facility] SARS-COV-2 COVID-19 2021-02-06 Completed [facility] of PFIZER VACCINE 00:00:00 [facility] SARS-COV-2 COVID-19 2021-02-06 Completed [facility] of PFIZER VACCINE 00:00:00 [facility] SARS-COV-2 COVID-19 2021-02-06 Completed [facility] of PFIZER VACCINE 00:00:00 [facility] SARS-COV-2 COVID-19 2021-02-06 Completed [facility] of PFIZER VACCINE 00:00:00 [facility] SARS-COV-2 COVID-19 2021-02-06 Completed [facility] of PFIZER VACCINE 00:00:00 [facility] SARS-COV-2 COVID-19 2021-02-06 Completed [facility] of PFIZER VACCINE 00:00:00 [facility] SARS-COV-2 COVID-19 2021-02-06 Completed [facility] PFIZER VACCINE 00:00:00 [facility] SARS-COV-2 COVID-19 2021-02-06 Completed [facility] of PFIZER VACCINE 00:00:00 [facility] SARS-COV-2 COVID-19 2021-02-06 Completed [facility] of PFIZER VACCINE 00:00:00 [facility] SARS-COV-2 COVID-19 2021-02-06 Completed [facility] of PFIZER VACCINE 00:00:00 [facility] SARS-COV-2 COVID-19 2021-02-06 Completed [facility] PFIZER VACCINE 00:00:00 [facility] SARS-COV-2 COVID-19 2021-02-06 Completed [facility] PFIZER VACCINE 00:00:00 [facility] SARS-COV-2 COVID-19 2021-02-06 Completed [facility] of PFIZER VACCINE 00:00:00 [facility] SARS-COV-2 COVID-19 2021-02-06 Completed [facility] PFIZER VACCINE 00:00:00 [facility] SARS-COV-2 COVID-19 2021-02-06 Completed [facility] PFIZER VACCINE 00:00:00 [facility] SARS-COV-2 COVID-19 2021-02-06 Completed [facility] PFIZER VACCINE 00:00:00 [facility] SARS-COV-2 COVID-19 2021-02-06 Completed [facility] PFIZER VACCINE 00:00:00 [facility] SARS-COV-2 COVID-19 2021-02-06 Completed [facility] PFIZER VACCINE 00:00:00 [facility] SARS-COV-2 COVID-19 2021-02-06 Completed [facility] of PFIZER VACCINE 00:00:00 [facility] SARS-COV-2 COVID-19 2021-02-06 Completed [facility] PFIZER VACCINE 00:00:00 [facility] SARS-COV-2 COVID-19 2021-02-06 Completed [facility] PFIZER VACCINE 00:00:00 [facility] SARS-COV-2 COVID-19 2021-02-06 Completed [facility] PFIZER VACCINE 00:00:00 [facility] SARS-COV-2 COVID-19 2021-02-06 Completed [facility] PFIZER VACCINE 00:00:00 [facility] SARS-COV-2 COVID-19 2021-02-06 Completed [facility] PFIZER VACCINE 00:00:00 [facility] SARS-COV-2 COVID-19 2021-02-06 Completed [facility] PFIZER VACCINE 00:00:00 [facility] SARS-COV-2 COVID-19 2021-02-06 Completed [facility] PFIZER VACCINE 00:00:00 [facility] SARS-COV-2 COVID-19 2021-02-06 Completed [facility] PFIZER VACCINE 00:00:00 [facility] SARS-COV-2 COVID-19 2021-02-06 Completed [facility] PFIZER VACCINE 00:00:00 [facility] SARS-COV-2 COVID-19 2021-02-06 Completed [facility] PFIZER VACCINE 00:00:00 [facility] SARS-COV-2 COVID-19 2021-02-06 Completed [facility] PFIZER VACCINE 00:00:00 [facility] SARS-COV-2 COVID-19 2021-02-06 Completed [facility] PFIZER VACCINE 00:00:00 [facility] SARS-COV-2 COVID-19 2021-02-06 Completed [facility] of PFIZER VACCINE 00:00:00 [facility] SARS-COV-2 COVID-19 2021-02-06 Completed [facility] PFIZER VACCINE 00:00:00 [facility] SARS-COV-2 COVID-19 2021-02-06 Completed [facility] PFIZER VACCINE 00:00:00 [facility] SARS-COV-2 COVID-19 2021-02-06 Completed [facility] PFIZER VACCINE 00:00:00 [facility] SARS-COV-2 COVID-19 2021-02-06 Completed [facility] PFIZER VACCINE 00:00:00 [facility] SARS-COV-2 COVID-19 2021-02-06 Completed [facility] PFIZER VACCINE 00:00:00 [facility] SARS-COV-2 COVID-19 2021-02-06 Completed [facility] PFIZER VACCINE 00:00:00 [facility] SARS-COV-2 COVID-19 2021-02-06 Completed [facility] PFIZER VACCINE 00:00:00 [facility] SARS-COV-2 COVID-19 2021-02-06 Completed [facility] PFIZER VACCINE 00:00:00 [facility] SARS-COV-2 COVID-19 2021-02-06 Completed [facility] PFIZER VACCINE 00:00:00 [facility] SARS-COV-2 COVID-19 2021-02-06 Completed [facility] PFIZER VACCINE 00:00:00 [facility] SARS-COV-2 COVID-19 2021-02-06 Completed [facility] PFIZER VACCINE 00:00:00 [facility] SARS-COV-2 COVID-19 2021-02-06 Completed [facility] PFIZER VACCINE 00:00:00 [facility] SARS-COV-2 COVID-19 2021-02-06 Completed [facility] PFIZER VACCINE 00:00:00 [facility] SARS-COV-2 COVID-19 2021-02-06 Completed [facility] PFIZER VACCINE 00:00:00 [facility] SARS-COV-2 COVID-19 2021-02-06 Completed [facility] PFIZER VACCINE 00:00:00 [facility] SARS-COV-2 COVID-19 2021-02-06 Completed [facility] PFIZER VACCINE 00:00:00 [facility] SARS-COV-2 COVID-19 2021-02-06 Completed [facility] PFIZER VACCINE 00:00:00 [facility] SARS-COV-2 COVID-19 2021-02-06 Completed [facility] PFIZER VACCINE 00:00:00 [facility] SARS-COV-2 COVID-19 2021-02-06 Completed [facility] PFIZER VACCINE 00:00:00 [facility] SARS-COV-2 COVID-19 2021-02-06 Completed [facility] PFIZER VACCINE 00:00:00 [facility] SARS-COV-2 COVID-19 2021-02-06 Completed [facility] PFIZER VACCINE 00:00:00 [facility] SARS-COV-2 COVID-19 2021-02-06 Completed [facility] PFIZER VACCINE 00:00:00 [facility] SARS-COV-2 COVID-19 2021-02-06 Completed [facility] PFIZER VACCINE 00:00:00 [facility] SARS-COV-2 COVID-19 2021-02-06 Completed [facility] PFIZER VACCINE 00:00:00 [facility] SARS-COV-2 COVID-19 2021-02-06 Completed [facility] PFIZER VACCINE 00:00:00 [facility] SARS-COV-2 COVID-19 2021-02-06 Completed [facility] PFIZER VACCINE 00:00:00 [facility] SARS-COV-2 COVID-19 2021-02-06 Completed [facility] PFIZER VACCINE 00:00:00 [facility] SARS-COV-2 COVID-19 2021-02-06 Completed [facility] PFIZER VACCINE 00:00:00 [facility] SARS-COV-2 COVID-19 2021-02-06 Completed [facility] PFIZER VACCINE 00:00:00 [facility] SARS-COV-2 COVID-19 2021-02-06 Completed [facility] PFIZER VACCINE 00:00:00 [facility] SARS-COV-2 COVID-19 2021-02-06 Completed [facility] PFIZER VACCINE 00:00:00 [facility] SARS-COV-2 COVID-19 2021-02-06 Completed [facility] PFIZER VACCINE 00:00:00 [facility] SARS-COV-2 COVID-19 2021-02-06 Completed [facility] PFIZER VACCINE 00:00:00 [facility] SARS-COV-2 COVID-19 2021-02-06 Completed [facility] PFIZER VACCINE 00:00:00 [facility] SARS-COV-2 COVID-19 2021-02-06 Completed [facility] PFIZER VACCINE 00:00:00 [facility] SARS-COV-2 COVID-19 2021-02-06 Completed [facility] PFIZER VACCINE 00:00:00 [facility] SARS-COV-2 COVID-19 2021-02-06 Completed [facility] PFIZER VACCINE 00:00:00 [facility] SARS-COV-2 COVID-19 2021-02-06 Completed [facility] PFIZER VACCINE 00:00:00 [facility] SARS-COV-2 COVID-19 2021-02-06 Completed [facility] PFIZER VACCINE 00:00:00 [facility] SARS-COV-2 COVID-19 2021-02-06 Completed [facility] PFIZER VACCINE 00:00:00 [facility] SARS-COV-2 COVID-19 2021-02-06 Completed [facility] PFIZER VACCINE 00:00:00 [facility] SARS-COV-2 COVID-19 2021-02-06 Completed [facility] PFIZER VACCINE 00:00:00 [facility] SARS-COV-2 COVID-19 2021-02-06 Completed [facility] PFIZER VACCINE 00:00:00 [facility] SARS-COV-2 COVID-19 2021-02-06 Completed [facility] PFIZER VACCINE 00:00:00 [facility] SARS-COV-2 COVID-19 2021-02-06 Completed [facility] PFIZER VACCINE 00:00:00 [facility] SARS-COV-2 COVID-19 2021-02-06 Completed [facility] PFIZER VACCINE 00:00:00 [facility] SARS-COV-2 COVID-19 2021-02-06 Completed [facility] PFIZER VACCINE 00:00:00 [facility] SARS-COV-2 COVID-19 2021-02-06 Completed [facility] PFIZER VACCINE 00:00:00 [facility] SARS-COV-2 COVID-19 2021-02-06 Completed [facility] PFIZER VACCINE 00:00:00 [facility] SARS-COV-2 COVID-19 2021-02-06 Completed [facility] of PFIZER VACCINE 00:00:00 [facility] Influenza Virus 2020-08-24 Completed [facility] Vaccine Quad .5 mL 00:00:00 [place] [facility] Influenza Virus 2020-08-24 Completed [facility] Vaccine Quad .5 mL 00:00:00 [place] [facility] Influenza Virus 2020-08-24 Completed [facility] Vaccine Quad .5 mL 00:00:00 [place] [facility] Influenza Virus 2020-08-24 Completed [facility] Vaccine Quad .5 mL 00:00:00 [facility] [place] [facility] Influenza Virus 2020-08-24 Completed [facility] Vaccine Quad .5 mL 00:00:00 [facility] [place] [facility] Influenza Virus 2020-08-24 Completed [facility] Vaccine Quad .5 mL 00:00:00 [facility] [place] [facility] Influenza Virus 2020-08-24 Completed [facility] Vaccine Quad .5 mL 00:00:00 [facility] [place] [facility] Influenza Virus 2020-08-24 Completed [facility] Vaccine Quad .5 mL 00:00:00 [facility] [place] [facility] Influenza Virus 2020-08-24 Completed [facility] Vaccine Quad .5 mL 00:00:00 [place] [facility] Influenza Virus 2020-08-24 Completed [...] Vaccine 2020-01-01 Completed [facility] of Recombinant 00:00:00 [facility] Zoster Vaccine 2020-01-01 Completed [facility] of Recombinant 00:00:00 [facility] Zoster Vaccine 2020-01-01 Completed [facility] of Recombinant 00:00:00 [facility] Zoster Vaccine 2020-01-01 Completed [facility] of Recombinant 00:00:00 [facility] Zoster Vaccine 2020-01-01 Completed [facility] of Recombinant 00:00:00 [facility] Zoster Vaccine 2020-01-01 Completed [facility] Recombinant 00:00:00 [facility] Zoster Vaccine 2020-01-01 Completed [facility] Recombinant 00:00:00 [facility] Zoster Vaccine 2020-01-01 Completed [facility] of Recombinant 00:00:00 [facility] Zoster Vaccine 2020-01-01 Completed [facility] of Recombinant 00:00:00 [facility] Zoster Vaccine 2020-01-01 Completed [facility] Recombinant 00:00:00 [facility] Zoster Vaccine 2020-01-01 Completed [facility] of Recombinant 00:00:00 [facility] Zoster Vaccine 2020-01-01 Completed [facility] Recombinant 00:00:00 [facility] Zoster Vaccine 2020-01-01 Completed [facility] Recombinant 00:00:00 [facility] Zoster Vaccine 2020-01-01 Completed [facility] of Recombinant 00:00:00 [facility] Zoster Vaccine 2020-01-01 Completed [facility] of Recombinant 00:00:00 [facility] Zoster Vaccine 2020-01-01 Completed [facility] of Recombinant 00:00:00 [facility] Zoster Vaccine 2020-01-01 Completed [facility] Recombinant 00:00:00 [facility] Zoster Vaccine 2020-01-01 Completed [facility] Recombinant 00:00:00 [facility] Zoster Vaccine 2020-01-01 Completed [facility] Recombinant 00:00:00 [facility] Zoster Vaccine 2020-01-01 Completed [facility] Recombinant 00:00:00 [facility] Zoster Vaccine 2020-01-01 Completed [facility] of Recombinant 00:00:00 [facility] Zoster Vaccine 2020-01-01 Completed [facility] of Recombinant 00:00:00 [facility] Zoster Vaccine 2020-01-01 Completed [facility] of Recombinant 00:00:00 [facility] Zoster Vaccine 2020-01-01 Completed [facility] of Recombinant 00:00:00 [facility] Zoster Vaccine 2020-01-01 Completed [facility] of Recombinant 00:00:00 [facility] Zoster Vaccine 2020-01-01 Completed [facility] of Recombinant 00:00:00 [facility]oster Vaccine 2020-01-01 Completed [facility] Recombinant 00:00:00 [facility]oster Vaccine 2020-01-01 Completed [facility] of Recombinant 00:00:00 [facility]oster Vaccine 2020-01-01 Completed [facility] of Recombinant 00:00:00 [facility] Zoster Vaccine 2020-01-01 Completed [facility] of Recombinant 00:00:00 [facility]oster Vaccine 2020-01-01 Completed [facility] of Recombinant 00:00:00 [facility]oster Vaccine 2020-01-01 Completed [facility] Recombinant 00:00:00 [facility] Vaccine 2020-01-01 Completed [facility] Recombinant 00:00:00 [facility] Vaccine 2020-01-01 Completed [facility] Recombinant 00:00:00 [facility] Vaccine 2020-01-01 Completed [facility] Recombinant 00:00:00 [facility] Vaccine 2020-01-01 Completed [facility] Recombinant 00:00:00 [facility] Vaccine 2020-01-01 Completed [facility] Recombinant 00:00:00 [facility] Vaccine 2020-01-01 Completed [facility] Recombinant 00:00:00 [facility] Vaccine 2020-01-01 Completed [facility] Recombinant 00:00:00 [facility] Vaccine 2020-01-01 Completed [facility] of Recombinant 00:00:00 [facility] Vaccine 2020-01-01 Completed [facility] of Recombinant 00:00:00 [facility] Vaccine 2020-01-01 Completed [facility] of Recombinant 00:00:00 [facility] Vaccine 2020-01-01 Completed [facility] of Recombinant 00:00:00 [facility] Vaccine 2020-01-01 Completed [facility] of Recombinant 00:00:00 [facility] Vaccine 2020-01-01 Completed [facility] Recombinant 00:00:00 [facility] Vaccine 2020-01-01 Completed [facility] Recombinant 00:00:00 [facility] Vaccine 2020-01-01 Completed [facility] Recombinant 00:00:00 [facility] Vaccine 2020-01-01 Completed [facility] Recombinant 00:00:00 [facility] Vaccine 2020-01-01 Completed [facility] of Recombinant 00:00:00 [facility] Vaccine 2020-01-01 Completed [facility] Recombinant 00:00:00 [facility] Vaccine 2020-01-01 Completed [facility] Recombinant 00:00:00 [facility] Vaccine 2020-01-01 Completed [facility] Recombinant 00:00:00 [facility] Vaccine 2020-01-01 Completed [facility] Recombinant 00:00:00 [facility] Vaccine 2020-01-01 Completed [facility] of Recombinant 00:00:00 [facility] Vaccine 2020-01-01 Completed [facility] of Recombinant 00:00:00 [facility] Vaccine 2020-01-01 Completed [facility] of Recombinant 00:00:00 [facility] Vaccine 2020-01-01 Completed [facility] of Recombinant 00:00:00 [facility] Vaccine 2020-01-01 Completed [facility] Recombinant 00:00:00 [facility] Vaccine 2020-01-01 Completed [facility] of Recombinant 00:00:00 [facility] Vaccine 2020-01-01 Completed [facility] of Recombinant 00:00:00 [facility] Vaccine 2020-01-01 Completed [facility] of Recombinant 00:00:00 [facility] Vaccine 2020-01-01 Completed [facility] of Recombinant 00:00:00 [facility] Vaccine 2020-01-01 Completed [facility] Recombinant 00:00:00 [facility] Vaccine 2020-01-01 Completed [facility] Recombinant 00:00:00 [facility] Vaccine 2020-01-01 Completed [facility] Recombinant 00:00:00 [facility] Vaccine 2020-01-01 Completed [facility] Recombinant 00:00:00 [facility] Vaccine 2020-01-01 Completed [facility] Recombinant 00:00:00 [facility] Vaccine 2020-01-01 Completed [facility] Recombinant 00:00:00 [facility] Vaccine 2020-01-01 Completed [facility] Recombinant 00:00:00 [facility] Vaccine 2020-01-01 Completed [facility] Recombinant 00:00:00 [facility] Vaccine 2020-01-01 Completed [facility] Recombinant 00:00:00 [facility] Vaccine 2020-01-01 Completed [facility] Recombinant 00:00:00 [facility] Vaccine 2020-01-01 Completed [facility] Recombinant 00:00:00 [facility] Vaccine 2020-01-01 Completed [facility] Recombinant 00:00:00 [facility] Vaccine 2020-01-01 Completed [facility] Recombinant 00:00:00 [facility] Vaccine 2020-01-01 Completed [facility] Recombinant 00:00:00 [facility] Vaccine 2020-01-01 Completed [facility] Recombinant 00:00:00 [facility] Vaccine 2020-01-01 Completed [facility] Recombinant 00:00:00 [facility] Vaccine 2020-01-01 Completed [facility] Recombinant 00:00:00 [facility] Vaccine 2020-01-01 Completed [facility] Recombinant 00:00:00 [facility] Vaccine 2020-01-01 Completed [facility] Recombinant 00:00:00 [facility] Vaccine 2020-01-01 Completed [facility] Recombinant 00:00:00 [facility] Vaccine 2020-01-01 Completed [facility] Recombinant 00:00:00 [facility] Vaccine 2020-01-01 Completed [facility] Recombinant 00:00:00 [facility] Vaccine 2020-01-01 Completed [facility] Recombinant 00:00:00 [facility]oster Vaccine 2020-01-01 Completed [facility] of Recombinant 00:00:00 [facility]oster Vaccine 2020-01-01 Completed [facility] of Recombinant 00:00:00 [facility]oster Vaccine 2020-01-01 Completed [facility] of Recombinant 00:00:00 [facility]oster Vaccine 2020-01-01 Completed [facility] of Recombinant 00:00:00 [facility]oster Vaccine 2020-01-01 Completed [facility] Recombinant 00:00:00 [facility] Vaccine 2020-01-01 Completed [facility] Recombinant 00:00:00 [facility] Vaccine 2020-01-01 Completed [facility] Recombinant 00:00:00 [facility] Vaccine 2020-01-01 Completed [facility] Recombinant 00:00:00 [facility]oster Vaccine 2020-01-01 Completed [facility] Recombinant 00:00:00 [facility] Vaccine 2020-01-01 Completed [facility] Recombinant 00:00:00 [facility]oster Vaccine 2020-01-01 Completed [facility] Recombinant 00:00:00 [facility] Vaccine 2020-01-01 Completed [facility] Recombinant 00:00:00 [facility] Vaccine 2020-01-01 Completed [facility] Recombinant 00:00:00 [facility] Vaccine 2020-01-01 Completed [facility] Recombinant 00:00:00 [facility] Vaccine 2020-01-01 Completed [facility] Recombinant 00:00:00 [facility] Vaccine 2020-01-01 Completed [facility] Recombinant 00:00:00 [facility] Vaccine 2020-01-01 Completed [facility] Recombinant 00:00:00 [facility]oster Vaccine 2020-01-01 Completed [facility] Recombinant 00:00:00 [facility] Vaccine 2020-01-01 Completed [facility] Recombinant 00:00:00 [facility]oster Vaccine 2020-01-01 Completed [facility] Recombinant 00:00:00 [facility] Vaccine 2020-01-01 Completed [facility] Recombinant 00:00:00 [facility]oster Vaccine 2020-01-01 Completed [facility] Recombinant 00:00:00 [facility]oster Vaccine 2020-01-01 Completed [facility] Recombinant 00:00:00 [facility]oster Vaccine 2020-01-01 Completed [facility] Recombinant 00:00:00 [facility]oster Vaccine 2020-01-01 Completed [facility] Recombinant 00:00:00 [facility] Vaccine 2020-01-01 Completed [facility] Recombinant 00:00:00 [facility] [facility] 2020[facility]01 Completed [facility] Recombinant 00:00:00 [facility] Zoster Vaccine 2020-01-01 Completed [facility] Recombinant 00:00:00 [facility] Zoster Vaccine 2020-01-01 Completed [facility] Recombinant 00:00:00 [facility] Zoster Vaccine 2020-01-01 Completed [facility] Recombinant 00:00:00 [facility] Zoster Vaccine 2020-01-01 Completed [facility] Recombinant 00:00:00 [facility] Zoster Vaccine 2020-01-01 Completed [facility] Recombinant 00:00:00 [facility] Zoster Vaccine 2020-01-01 Completed [facility] Recombinant 00:00:00 [facility] Zoster Vaccine 2020-01-01 Completed [facility] Recombinant 00:00:00 [facility] Zoster Vaccine 2020-01-01 Completed [facility] Recombinant 00:00:00 [facility] Zoster Vaccine 2020-01-01 Completed [facility] Recombinant 00:00:00 [facility] Zoster Vaccine 2020-01-01 Completed [facility] Recombinant 00:00:00 [facility] Zoster Vaccine 2020-01-01 Completed [facility] Recombinant 00:00:00 [facility] Zoster Vaccine 2020-01-01 Completed [facility] Recombinant 00:00:00 [facility] Zoster Vaccine 2020-01-01 Completed [facility] Recombinant 00:00:00 [facility] Zoster Vaccine 2020-01-01 Completed [facility] Recombinant 00:00:00 [facility] Zoster Vaccine 2020-01-01 Completed [facility] Recombinant 00:00:00 [facility] Zoster Vaccine 2020-01-01 Completed [facility] Recombinant 00:00:00 [facility] Zoster Vaccine 2020-01-01 Completed [facility] Recombinant 00:00:00 [facility] Zoster Vaccine 2020-01-01 Completed [facility] Recombinant 00:00:00 [facility] Zoster Vaccine 2020-01-01 Completed [facility] Recombinant 00:00:00 [facility] Zoster Vaccine 2020-01-01 Completed [facility] Recombinant 00:00:00 [facility] Zoster Vaccine 2020-01-01 Completed [facility] Recombinant 00:00:00 [facility] Zoster Vaccine 2020-01-01 Completed [facility] Recombinant 00:00:00 [facility] Zoster Vaccine 2020-01-01 Completed [facility] Recombinant 00:00:00 [facility] Zoster Vaccine 2020-01-01 Completed [facility] Recombinant 00:00:00 [facility] Zoster Vaccine 2020-01-01 Completed [facility] Recombinant 00:00:00 [facility] Zoster Vaccine 2020-01-01 Completed [facility] Recombinant 00:00:00 [facility] Zoster Vaccine 2020-01-01 Completed [facility] Recombinant 00:00:00 [facility] Zoster Vaccine 2020-01-01 Completed [facility] Recombinant 00:00:00 [facility] Zoster Vaccine 2020-01-01 Completed [facility] Recombinant 00:00:00 [facility] Zoster Vaccine 2020-01-01 Completed [facility] Recombinant 00:00:00 [facility] Zoster Vaccine 2020-01-01 Completed [facility] Recombinant 00:00:00 [facility] Zoster Vaccine 2020-01-01 Completed [facility] Recombinant 00:00:00 [facility] Influenza Virus 2019-09-19 Completed [facility]it y of Vaccine Quad .5 mL 00:00:00 [facility] 6+ MO [place] Influenza Virus 2019-09-19 Completed [facility]it y of [...] y of Vaccine Quad .5 mL 00:00:00 [facility] 6[facility] Influenza Virus [...] y of Vaccine Quad .5 mL 00:00:00 [facility] 6[facility] Influenza Virus [...] y of Vaccine Quad .5 mL 00:00:00 [facility] 6[facility] Influenza Virus [...] y of Vaccine Quad .5 mL 00:00:00 [facility] 6[facility] Influenza Virus [...] y of Vaccine Quad .5 mL 00:00:00 [facility] 6[facility] Influenza Virus [...] y of Vaccine Quad .5 mL 00:00:00 [facility] 6[facility] Influenza Virus [...] Vaccine 2019-07-13 Completed [facility] Recombinant 00:00:00 [facility] Zoster Vaccine 2019-07-13 Completed [facility] Recombinant 00:00:00 [facility] Zoster Vaccine 2019-07-13 Completed [facility] Recombinant 00:00:00 [facility] Zoster Vaccine 2019-07-13 Completed [facility] Recombinant 00:00:00 [facility] Zoster Vaccine 2019-07-13 Completed [facility] Recombinant 00:00:00 [facility] Zoster Vaccine 2019-07-13 Completed [facility] Recombinant 00:00:00 [facility] Zoster Vaccine 2019-07-13 Completed [facility] Recombinant 00:00:00 [facility] Zoster Vaccine 2019-07-13 Completed [facility] Recombinant 00:00:00 [facility] Zoster Vaccine 2019-07-13 Completed [facility] Recombinant 00:00:00 [facility] Zoster Vaccine 2019-07-13 Completed [facility] Recombinant 00:00:00 [facility] Zoster Vaccine 2019-07-13 Completed [facility] Recombinant 00:00:00 [facility] Zoster Vaccine 2019-07-13 Completed [facility] Recombinant 00:00:00 [facility] Zoster Vaccine 2019-07-13 Completed [facility] Recombinant 00:00:00 [facility] Zoster Vaccine 2019-07-13 Completed [facility] Recombinant 00:00:00 [facility] Zoster Vaccine 2019-07-13 Completed [facility] Recombinant 00:00:00 [facility] Zoster Vaccine 2019-07-13 Completed [facility] Recombinant 00:00:00 [facility] Zoster Vaccine 2019-07-13 Completed [facility] Recombinant 00:00:00 [facility] Zoster Vaccine 2019-07-13 Completed [facility] Recombinant 00:00:00 [facility] Zoster Vaccine 2019-07-13 Completed [facility] Recombinant 00:00:00 [facility] Zoster Vaccine 2019-07-13 Completed [facility] Recombinant 00:00:00 [facility] Zoster Vaccine 2019-07-13 Completed [facility] Recombinant 00:00:00 [facility] Zoster Vaccine 2019-07-13 Completed [facility] Recombinant 00:00:00 [facility] Zoster Vaccine 2019-07-13 Completed [facility] Recombinant 00:00:00 [facility] Zoster Vaccine 2019-07-13 Completed [facility] Recombinant 00:00:00 [facility] Zoster Vaccine 2019-07-13 Completed [facility] Recombinant 00:00:00 [facility] Zoster Vaccine 2019-07-13 Completed [facility] Recombinant 00:00:00 [facility] Zoster Vaccine 2019-07-13 Completed [facility] Recombinant 00:00:00 [facility] Zoster Vaccine 2019-07-13 Completed [facility] Recombinant 00:00:00 [facility] Zoster Vaccine 2019-07-13 Completed [facility] Recombinant 00:00:00 [facility] Zoster Vaccine 2019-07-13 Completed [facility] Recombinant 00:00:00 [facility] Zoster Vaccine 2019-07-13 Completed [facility] Recombinant 00:00:00 [facility] Zoster Vaccine 2019-07-13 Completed [facility] Recombinant 00:00:00 [facility] Zoster Vaccine 2019-07-13 Completed [facility] Recombinant 00:00:00 [facility] Zoster Vaccine 2019-07-13 Completed [facility] Recombinant 00:00:00 [facility] Zoster Vaccine 2019-07-13 Completed [facility] Recombinant 00:00:00 [facility] Zoster Vaccine 2019-07-13 Completed [facility] Recombinant 00:00:00 [facility] Zoster Vaccine 2019-07-13 Completed [facility] Recombinant 00:00:00 [facility] Zoster Vaccine 2019-07-13 Completed [facility] Recombinant 00:00:00 [facility] Zoster Vaccine 2019-07-13 Completed [facility] Recombinant 00:00:00 [facility] Zoster Vaccine 2019-07-13 Completed [facility] Recombinant 00:00:00 [facility] Zoster Vaccine 2019-07-13 Completed [facility] Recombinant 00:00:00 [facility] Zoster Vaccine 2019-07-13 Completed [facility] Recombinant 00:00:00 [facility] Zoster Vaccine 2019-07-13 Completed [facility] Recombinant 00:00:00 [facility] Zoster Vaccine 2019-07-13 Completed [facility] Recombinant 00:00:00 [facility] Zoster Vaccine 2019-07-13 Completed [facility] Recombinant 00:00:00 [facility] Zoster Vaccine 2019-07-13 Completed [facility] Recombinant 00:00:00 [facility] Zoster Vaccine 2019-07-13 Completed [facility] Recombinant 00:00:00 [facility] Zoster Vaccine 2019-07-13 Completed [facility] Recombinant 00:00:00 [facility] Zoster Vaccine 2019-07-13 Completed [facility] Recombinant 00:00:00 [facility] Zoster Vaccine 2019-07-13 Completed [facility] Recombinant 00:00:00 [facility] Zoster Vaccine 2019-07-13 Completed [facility] Recombinant 00:00:00 [facility] Zoster Vaccine 2019-07-13 Completed [facility] Recombinant 00:00:00 [facility] Zoster Vaccine 2019-07-13 Completed [facility] Recombinant 00:00:00 [facility] Zoster Vaccine 2019-07-13 Completed [facility] Recombinant 00:00:00 [facility] Zoster Vaccine 2019-07-13 Completed [facility] Recombinant 00:00:00 [facility] Zoster Vaccine 2019-07-13 Completed [facility] Recombinant 00:00:00 [facility] Zoster Vaccine 2019-07-13 Completed [facility] Recombinant 00:00:00 [facility] Zoster Vaccine 2019-07-13 Completed [facility] Recombinant 00:00:00 [facility] Zoster Vaccine 2019-07-13 Completed [facility] Recombinant 00:00:00 [facility] Zoster Vaccine 2019-07-13 Completed [facility] Recombinant 00:00:00 [facility] Zoster Vaccine 2019-07-13 Completed [facility] Recombinant 00:00:00 [facility] Zoster Vaccine 2019-07-13 Completed [facility] Recombinant 00:00:00 [facility] Zoster Vaccine 2019-07-13 Completed [facility] Recombinant 00:00:00 [facility] Zoster Vaccine 2019-07-13 Completed [facility] Recombinant 00:00:00 [facility] Zoster Vaccine 2019-07-13 Completed [facility] Recombinant 00:00:00 [facility] Zoster Vaccine 2019-07-13 Completed [facility] Recombinant 00:00:00 [facility] Zoster Vaccine 2019-07-13 Completed [facility] Recombinant 00:00:00 [facility] Zoster Vaccine 2019-07-13 Completed [facility] Recombinant 00:00:00 [facility] Zoster Vaccine 2019-07-13 Completed [facility] Recombinant 00:00:00 [facility] Zoster Vaccine 2019-07-13 Completed [facility] Recombinant 00:00:00 [facility] Zoster Vaccine 2019-07-13 Completed [facility] Recombinant 00:00:00 [facility] Zoster Vaccine 2019-07-13 Completed [facility] Recombinant 00:00:00 [facility] Zoster Vaccine 2019-07-13 Completed [facility] Recombinant 00:00:00 [facility] Zoster Vaccine 2019-07-13 Completed [facility] Recombinant 00:00:00 [facility] Zoster Vaccine 2019-07-13 Completed [facility] Recombinant 00:00:00 [facility] Zoster Vaccine 2019-07-13 Completed [facility] Recombinant 00:00:00 [facility] Zoster Vaccine 2019-07-13 Completed [facility] Recombinant 00:00:00 [facility] Zoster Vaccine 2019-07-13 Completed [facility] Recombinant 00:00:00 [facility] Zoster Vaccine 2019-07-13 Completed [facility] Recombinant 00:00:00 [facility] Zoster Vaccine 2019-07-13 Completed [facility] Recombinant 00:00:00 [facility] Zoster Vaccine 2019-07-13 Completed [facility] Recombinant 00:00:00 [facility] Zoster Vaccine 2019-07-13 Completed [facility] Recombinant 00:00:00 [facility] Zoster Vaccine 2019-07-13 Completed [facility] Recombinant 00:00:00 [facility] Zoster Vaccine 2019-07-13 Completed [facility] Recombinant 00:00:00 [facility] Zoster Vaccine 2019-07-13 Completed [facility] Recombinant 00:00:00 [facility] Zoster Vaccine 2019-07-13 Completed [facility] Recombinant 00:00:00 [facility] Zoster Vaccine 2019-07-13 Completed [facility] Recombinant 00:00:00 [facility] Zoster Vaccine 2019-07-13 Completed [facility] Recombinant 00:00:00 [facility] Zoster Vaccine 2019-07-13 Completed [facility] Recombinant 00:00:00 [facility] Zoster Vaccine 2019-07-13 Completed [facility] Recombinant 00:00:00 [facility] Zoster Vaccine 2019-07-13 Completed [facility] Recombinant 00:00:00 [facility] Zoster Vaccine 2019-07-13 Completed [facility] Recombinant 00:00:00 [facility] Zoster Vaccine 2019-07-13 Completed [facility] Recombinant 00:00:00 [facility] Zoster Vaccine 2019-07-13 Completed [facility] Recombinant 00:00:00 [facility] Zoster Vaccine 2019-07-13 Completed [facility] Recombinant 00:00:00 [facility] Zoster Vaccine 2019-07-13 Completed [facility] Recombinant 00:00:00 [facility] Zoster Vaccine 2019-07-13 Completed [facility] Recombinant 00:00:00 [facility] Zoster Vaccine 2019-07-13 Completed [facility] Recombinant 00:00:00 [facility] Zoster Vaccine 2019-07-13 Completed [facility] Recombinant 00:00:00 [facility] Zoster Vaccine 2019-07-13 Completed [facility] Recombinant 00:00:00 [facility] Zoster Vaccine 2019-07-13 Completed [facility] Recombinant 00:00:00 [facility] Zoster Vaccine 2019-07-13 Completed [facility] Recombinant 00:00:00 [facility] Zoster Vaccine 2019-07-13 Completed [facility] Recombinant 00:00:00 [facility] Zoster Vaccine 2019-07-13 Completed [facility] Recombinant 00:00:00 [facility] Zoster Vaccine 2019-07-13 Completed [facility] Recombinant 00:00:00 [facility] Zoster Vaccine 2019-07-13 Completed [facility] Recombinant 00:00:00 [facility] Zoster Vaccine 2019-07-13 Completed [facility] Recombinant 00:00:00 [facility] Zoster Vaccine 2019-07-13 Completed [facility] Recombinant 00:00:00 [facility] Zoster Vaccine 2019-07-13 Completed [facility] Recombinant 00:00:00 [facility] Zoster Vaccine 2019-07-13 Completed [facility] Recombinant 00:00:00 [facility] Zoster Vaccine 2019-07-13 Completed [facility] Recombinant 00:00:00 [facility] Zoster Vaccine 2019-07-13 Completed [facility] Recombinant 00:00:00 [facility] Zoster Vaccine 2019-07-13 Completed [facility] Recombinant 00:00:00 [facility] Zoster Vaccine 2019-07-13 Completed [facility] Recombinant 00:00:00 [facility] Zoster Vaccine 2019-07-13 Completed [facility] Recombinant 00:00:00 [facility] Zoster Vaccine 2019-07-13 Completed [facility] Recombinant 00:00:00 [facility] Zoster Vaccine 2019-07-13 Completed [facility] Recombinant 00:00:00 [facility] Zoster Vaccine 2019-07-13 Completed [facility] Recombinant 00:00:00 [facility] Zoster Vaccine 2019-07-13 Completed [facility] Recombinant 00:00:00 [facility] Zoster Vaccine 2019-07-13 Completed [facility] Recombinant 00:00:00 [facility] Zoster Vaccine 2019-07-13 Completed [facility] Recombinant 00:00:00 [facility] Zoster Vaccine 2019-07-13 Completed [facility] Recombinant 00:00:00 [facility] Zoster Vaccine 2019-07-13 Completed [facility] Recombinant 00:00:00 [facility] Zoster Vaccine 2019-07-13 Completed [facility] Recombinant 00:00:00 [facility] Zoster Vaccine 2019-07-13 Completed [facility] Recombinant 00:00:00 [facility] Zoster Vaccine 2019-07-13 Completed [facility] Recombinant 00:00:00 [facility] Zoster Vaccine 2019-07-13 Completed [facility] Recombinant 00:00:00 [facility] Zoster Vaccine 2019-07-13 Completed [facility] Recombinant 00:00:00 [facility] Zoster Vaccine 2019-07-13 Completed [facility] Recombinant 00:00:00 [facility] Zoster Vaccine 2019-07-13 Completed [facility] Recombinant 00:00:00 [facility] Zoster Vaccine 2019-07-13 Completed [facility] Recombinant 00:00:00 [facility] Zoster Vaccine 2019-07-13 Completed [facility] Recombinant 00:00:00 [facility] Zoster Vaccine 2019-07-13 Completed [facility] Recombinant 00:00:00 [facility] Zoster Vaccine 2019-07-13 Completed [facility] Recombinant 00:00:00 [facility] Zoster Vaccine 2019-07-13 Completed [facility] Recombinant 00:00:00 [facility] Zoster Vaccine 2019-07-13 Completed [facility] Recombinant 00:00:00 [facility] Zoster Vaccine 2019-07-13 Completed [facility] Recombinant 00:00:00 [facility] Zoster Vaccine 2019-07-13 Completed [facility] Recombinant 00:00:00 [facility] Zoster Vaccine 2019-07-13 Completed [facility] Recombinant 00:00:00 [facility] Zoster Vaccine 2019-07-13 Completed [facility] Recombinant 00:00:00 [facility] Zoster Vaccine 2019-07-13 Completed [facility] Recombinant 00:00:00 [facility] Zoster Vaccine 2019-07-13 Completed [facility] Recombinant 00:00:00 [facility] Zoster Vaccine 2019-07-13 Completed [facility] Recombinant 00:00:00 [facility] Zoster Vaccine 2019-07-13 Completed [facility] Recombinant 00:00:00 [facility] TDAP (ADACEL) 2019-05-31 Completed [facility] of VACCINE 00:00:00 [facility] TDAP (ADACEL) 2019-05-31 Completed [facility] VACCINE 00:00:00 [facility] TDAP (ADACEL) 2019-05-31 Completed [facility] VACCINE 00:00:00 [facility] TDAP (ADACEL) 2019-05-31 Completed [facility] VACCINE 00:00:00 [facility] TDAP (ADACEL) 2019-05-31 Completed [facility] VACCINE 00:00:00 [facility] TDAP (ADACEL) 2019-05-31 Completed [facility] VACCINE 00:00:00 [facility] TDAP (ADACEL) 2019-05-31 Completed [facility] VACCINE 00:00:00 [facility] TDAP (ADACEL) 2019-05-31 Completed [facility] VACCINE 00:00:00 [facility] TDAP (ADACEL) 2019-05-31 Completed [facility] VACCINE 00:00:00 [facility] TDAP (ADACEL) 2019-05-31 Completed [facility] VACCINE 00:00:00 [facility] TDAP (ADACEL) 2019-05-31 Completed [facility] VACCINE 00:00:00 [facility] TDAP (ADACEL) 2019-05-31 Completed [facility] VACCINE 00:00:00 [facility] TDAP (ADACEL) 2019-05-31 Completed [facility] VACCINE 00:00:00 [facility] TDAP (ADACEL) 2019-05-31 Completed [facility] VACCINE 00:00:00 [facility] TDAP (ADACEL) 2019-05-31 Completed [facility] VACCINE 00:00:00 [facility] TDAP (ADACEL) 2019-05-31 Completed [facility] VACCINE 00:00:00 [facility] TDAP (ADACEL) 2019-05-31 Completed [facility] VACCINE 00:00:00 [facility] TDAP (ADACEL) 2019-05-31 Completed [facility] VACCINE 00:00:00 [facility] TDAP (ADACEL) 2019-05-31 Completed [facility] VACCINE 00:00:00 [facility] TDAP (ADACEL) 2019-05-31 Completed [facility] VACCINE 00:00:00 [facility] TDAP (ADACEL) 2019-05-31 Completed [facility] VACCINE 00:00:00 [facility] TDAP (ADACEL) 2019-05-31 Completed [facility] VACCINE 00:00:00 [facility] TDAP (ADACEL) 2019-05-31 Completed [facility] VACCINE 00:00:00 [facility] TDAP (ADACEL) 2019-05-31 Completed [facility] VACCINE 00:00:00 [facility] TDAP (ADACEL) 2019-05-31 Completed [facility] VACCINE 00:00:00 [facility] TDAP (ADACEL) 2019-05-31 Completed [facility] VACCINE 00:00:00 [facility] TDAP (ADACEL) 2019-05-31 Completed [facility] VACCINE 00:00:00 [facility] TDAP (ADACEL) 2019-05-31 Completed [facility] VACCINE 00:00:00 [facility] TDAP (ADACEL) 2019-05-31 Completed [facility] VACCINE 00:00:00 [facility] TDAP (ADACEL) 2019-05-31 Completed [facility] VACCINE 00:00:00 [facility] TDAP (ADACEL) 2019-05-31 Completed [facility] VACCINE 00:00:00 [facility] TDAP (ADACEL) 2019-05-31 Completed [facility] VACCINE 00:00:00 [facility] TDAP (ADACEL) 2019-05-31 Completed [facility] VACCINE 00:00:00 [facility] TDAP (ADACEL) 2019-05-31 Completed [facility] VACCINE 00:00:00 [facility] TDAP (ADACEL) 2019-05-31 Completed [facility] VACCINE 00:00:00 [facility] TDAP (ADACEL) 2019-05-31 Completed [facility] VACCINE 00:00:00 [facility] TDAP (ADACEL) 2019-05-31 Completed [facility] VACCINE 00:00:00 [facility] TDAP (ADACEL) 2019-05-31 Completed [facility] VACCINE 00:00:00 [facility] TDAP (ADACEL) 2019-05-31 Completed [facility] VACCINE 00:00:00 [facility] TDAP (ADACEL) 2019-05-31 Completed [facility] VACCINE 00:00:00 [facility] TDAP (ADACEL) 2019-05-31 Completed [facility] VACCINE 00:00:00 [facility] TDAP (ADACEL) 2019-05-31 Completed [facility] VACCINE 00:00:00 [facility] TDAP (ADACEL) 2019-05-31 Completed [facility] VACCINE 00:00:00 [facility] TDAP (ADACEL) 2019-05-31 Completed [facility] VACCINE 00:00:00 [facility] TDAP (ADACEL) 2019-05-31 Completed [facility] VACCINE 00:00:00 [facility] TDAP (ADACEL) 2019-05-31 Completed [facility] VACCINE 00:00:00 [facility] TDAP (ADACEL) 2019-05-31 Completed [facility] VACCINE 00:00:00 [facility] [facility] TDAP (ADACEL) 2019-05-31 Completed [facility] VACCINE 00:00:00 [facility] TDAP (ADACEL) 2019-05-31 Completed [facility] VACCINE 00:00:00 [facility] TDAP (ADACEL) 2019-05-31 Completed [facility] VACCINE 00:00:00 [facility] TDAP (ADACEL) 2019-05-31 Completed [facility] VACCINE 00:00:00 [facility] TDAP (ADACEL) 2019-05-31 Completed [facility] VACCINE 00:00:00 [facility] TDAP (ADACEL) 2019-05-31 Completed [facility] VACCINE 00:00:00 [facility] TDAP (ADACEL) 2019-05-31 Completed [facility] VACCINE 00:00:00 [facility] TDAP (ADACEL) 2019-05-31 Completed [facility] VACCINE 00:00:00 [facility] TDAP (ADACEL) 2019-05-31 Completed [facility] VACCINE 00:00:00 [facility] TDAP (ADACEL) 2019-05-31 Completed [facility] VACCINE 00:00:00 [facility] TDAP (ADACEL) 2019-05-31 Completed [facility] VACCINE 00:00:00 [facility] TDAP (ADACEL) 2019-05-31 Completed [facility] VACCINE 00:00:00 [facility] TDAP (ADACEL) 2019-05-31 Completed [facility] VACCINE 00:00:00 [facility] TDAP (ADACEL) 2019-05-31 Completed [facility] VACCINE 00:00:00 [facility] TDAP (ADACEL) 2019-05-31 Completed [facility] VACCINE 00:00:00 [facility] TDAP (ADACEL) 2019-05-31 Completed [facility] VACCINE 00:00:00 [facility] TDAP (ADACEL) 2019-05-31 Completed [facility] VACCINE 00:00:00 [facility] TDAP (ADACEL) 2019-05-31 Completed [facility] VACCINE 00:00:00 [facility] TDAP (ADACEL) 2019-05-31 Completed [facility] VACCINE 00:00:00 [facility] TDAP (ADACEL) 2019-05-31 Completed [facility] VACCINE 00:00:00 [facility] TDAP (ADACEL) 2019-05-31 Completed [facility] VACCINE 00:00:00 [facility] TDAP (ADACEL) 2019-05-31 Completed [facility] VACCINE 00:00:00 [facility] TDAP (ADACEL) 2019-05-31 Completed [facility] VACCINE 00:00:00 [facility] TDAP (ADACEL) 2019-05-31 Completed [facility] VACCINE 00:00:00 [facility] TDAP (ADACEL) 2019-05-31 Completed [facility] VACCINE 00:00:00 [facility] TDAP (ADACEL) 2019-05-31 Completed [facility] VACCINE 00:00:00 [facility] TDAP (ADACEL) 2019-05-31 Completed [facility] VACCINE 00:00:00 [facility] TDAP (ADACEL) 2019-05-31 Completed [facility] VACCINE 00:00:00 [facility] TDAP (ADACEL) 2019-05-31 Completed [facility] VACCINE 00:00:00 [facility] TDAP (ADACEL) 2019-05-31 Completed [facility] VACCINE 00:00:00 [facility] TDAP (ADACEL) 2019-05-31 Completed [facility] VACCINE 00:00:00 [facility] TDAP (ADACEL) 2019-05-31 Completed [facility] VACCINE 00:00:00 [facility] TDAP (ADACEL) 2019-05-31 Completed [facility] VACCINE 00:00:00 [facility] TDAP (ADACEL) 2019-05-31 Completed [facility] VACCINE 00:00:00 [facility] TDAP (ADACEL) 2019-05-31 Completed [facility] VACCINE 00:00:00 [facility] TDAP (ADACEL) 2019-05-31 Completed [facility] VACCINE 00:00:00 [facility] TDAP (ADACEL) 2019-05-31 Completed [facility] VACCINE 00:00:00 [facility] TDAP (ADACEL) 2019-05-31 Completed [facility] VACCINE 00:00:00 [facility] TDAP (ADACEL) 2019-05-31 Completed [facility] VACCINE 00:00:00 [facility] TDAP (ADACEL) 2019-05-31 Completed [facility] VACCINE 00:00:00 [facility] TDAP (ADACEL) 2019-05-31 Completed [facility] VACCINE 00:00:00 [facility] TDAP (ADACEL) 2019-05-31 Completed [facility] VACCINE 00:00:00 [facility] TDAP (ADACEL) 2019-05-31 Completed [facility] VACCINE 00:00:00 [facility] TDAP (ADACEL) 2019-05-31 Completed [facility] VACCINE 00:00:00 [facility] TDAP (ADACEL) 2019-05-31 Completed [facility] VACCINE 00:00:00 [facility] TDAP (ADACEL) 2019-05-31 Completed [facility] VACCINE 00:00:00 [facility] TDAP (ADACEL) 2019-05-31 Completed [facility] VACCINE 00:00:00 [facility] TDAP (ADACEL) 2019-05-31 Completed [facility] VACCINE 00:00:00 [facility] TDAP (ADACEL) 2019-05-31 Completed [facility] VACCINE 00:00:00 [facility] TDAP (ADACEL) 2019-05-31 Completed [facility] VACCINE 00:00:00 [facility] TDAP (ADACEL) 2019-05-31 Completed [facility] VACCINE 00:00:00 [facility] TDAP (ADACEL) 2019-05-31 Completed [facility] VACCINE 00:00:00 [facility] TDAP (ADACEL) 2019-05-31 Completed [facility] VACCINE 00:00:00 [facility] TDAP (ADACEL) 2019-05-31 Completed [facility] VACCINE 00:00:00 [facility] TDAP (ADACEL) 2019-05-31 Completed [facility] VACCINE 00:00:00 [facility] TDAP (ADACEL) 2019-05-31 Completed [facility] VACCINE 00:00:00 [facility] TDAP (ADACEL) 2019-05-31 Completed [facility] VACCINE 00:00:00 [facility] TDAP (ADACEL) 2019-05-31 Completed [facility] VACCINE 00:00:00 [facility] TDAP (ADACEL) 2019-05-31 Completed [facility] VACCINE 00:00:00 [facility] TDAP (ADACEL) 2019-05-31 Completed [facility] VACCINE 00:00:00 [facility] TDAP (ADACEL) 2019-05-31 Completed [facility] VACCINE 00:00:00 [facility] TDAP (ADACEL) 2019-05-31 Completed [facility] VACCINE 00:00:00 [facility] TDAP (ADACEL) 2019-05-31 Completed [facility] VACCINE 00:00:00 [facility] TDAP (ADACEL) 2019-05-31 Completed [facility] VACCINE 00:00:00 [facility] TDAP (ADACEL) 2019-05-31 Completed [facility] VACCINE 00:00:00 [facility] TDAP (ADACEL) 2019-05-31 Completed [facility] VACCINE 00:00:00 [facility] TDAP (ADACEL) 2019-05-31 Completed [facility] VACCINE 00:00:00 [facility] TDAP (ADACEL) 2019-05-31 Completed [facility] VACCINE 00:00:00 [facility] TDAP (ADACEL) 2019-05-31 Completed [facility] VACCINE 00:00:00 [facility] TDAP (ADACEL) 2019-05-31 Completed [facility] VACCINE 00:00:00 [facility] TDAP (ADACEL) 2019-05-31 Completed [facility] VACCINE 00:00:00 [facility] TDAP (ADACEL) 2019-05-31 Completed [facility] VACCINE 00:00:00 [facility] TDAP (ADACEL) 2019-05-31 Completed [facility] VACCINE 00:00:00 [facility] TDAP (ADACEL) 2019-05-31 Completed [facility] VACCINE 00:00:00 [facility] TDAP (ADACEL) 2019-05-31 Completed [facility] VACCINE 00:00:00 [facility] TDAP (ADACEL) 2019-05-31 Completed [facility] VACCINE 00:00:00 [facility] TDAP (ADACEL) 2019-05-31 Completed [facility] VACCINE 00:00:00 [facility] TDAP (ADACEL) 2019-05-31 Completed [facility] VACCINE 00:00:00 [facility] TDAP (ADACEL) 2019-05-31 Completed [facility] VACCINE 00:00:00 [facility] TDAP (ADACEL) 2019-05-31 Completed [facility] VACCINE 00:00:00 [facility] TDAP (ADACEL) 2019-05-31 Completed [facility] VACCINE 00:00:00 [facility] TDAP (ADACEL) 2019-05-31 Completed [facility] VACCINE 00:00:00 [facility] TDAP (ADACEL) 2019-05-31 Completed [facility] VACCINE 00:00:00 [facility] TDAP (ADACEL) 2019-05-31 Completed [facility] VACCINE 00:00:00 [facility] TDAP (ADACEL) 2019-05-31 Completed [facility] VACCINE 00:00:00 [facility] TDAP (ADACEL) 2019-05-31 Completed [facility] VACCINE 00:00:00 [facility] TDAP (ADACEL) 2019-05-31 Completed [facility] VACCINE 00:00:00 [facility] TDAP (ADACEL) 2019-05-31 Completed [facility] VACCINE 00:00:00 [facility] TDAP (ADACEL) 2019-05-31 Completed [facility] VACCINE 00:00:00 [facility] TDAP (ADACEL) 2019-05-31 Completed [facility] VACCINE 00:00:00 [facility] TDAP (ADACEL) 2019-05-31 Completed [facility] VACCINE 00:00:00 [facility] TDAP (ADACEL) 2019-05-31 Completed [facility] VACCINE 00:00:00 [facility] TDAP (ADACEL) 2019-05-31 Completed [facility] VACCINE 00:00:00 [facility] TDAP (ADACEL) 2019-05-31 Completed [facility] VACCINE 00:00:00 [facility] TDAP (ADACEL) 2019-05-31 Completed [facility] VACCINE 00:00:00 [facility] TDAP (ADACEL) 2019-05-31 Completed [facility] VACCINE 00:00:00 [facility] TDAP (ADACEL) 2019-05-31 Completed [facility] VACCINE 00:00:00 [facility] Influenza Virus 2018-09-28 Completed [facility]it y [facility] Vaccine [facility] IM 00:00:00 [facility] Influenza Virus 2018-09-28 Completed [facility]it y [facility] Vaccine [facility] 00:00:00 [facility] Influenza [...] [facility] Vaccine [facility] 00:00:00 [facility] Influenza [...] [facility] y of Vaccine [facility] 00:00:00 [facility] Influenza Virus 2018-09-28 Completed [facility] Vaccine [facility] 00:00:00 [facility] Influenza Virus 2018-09-28 Completed [facility]it y [facility] Vaccine [facility] 00:00:00 [facility] Influenza Virus 2018-09-28 Completed [facility]it y of Vaccine [facility] 00:00:00 [facility] Influenza Virus 2018-09-28 Completed [facility]it y of Vaccine [facility] IM 00:00:00 [facility] Vital Signs Vital Name Observation Time Observation Value Comments Source Systolic blood 2023-01-18 140 mm[Hg] University of pressure 04:28:00 [facility] Diastolic blood 2023-01-18 81 mm[Hg] University o f pressure 04:28:00 [facility] Heart rate 2023-01-18 84 /min [facility] 04:28:00 [facility] Body temperature 2023-01-18 37.22 Jessie [facility] 04:28:00 [facility] Respiratory rate 2023-01-18 18 /min University 04:28:00 [facility] Body height 2023-01-18 177.8 cm University of 04:28:00 [facility] Body weight 2023-01-18 104.327 kg University of 04:28:00 [facility] BMI 2023-01-18 33.00 kg/m2 University of 04:28:00 [facility] Oxygen saturation 2023-01-18 96 /min [facility] in Arterial blood 04:28:00 [facility] by Pulse oximetry [facility] Systolic blood 2023-01-13 132 mm[Hg] University of pressure 22:00:00 [facility] Diastolic blood 2023-01-13 80 mm[Hg] University o f pressure 22:00:00 [facility] Heart rate 2023-01-13 68 /min University of 22:00:00 [facility] Body temperature 2023-01-13 37.06 Jessie [facility] 22:00:00 [facility] Oxygen saturation 2023-01-13 95 /min [facility] in Arterial blood 22:00:00 [facility] by Pulse oximetry [facility] Respiratory rate 2023-01-13 23 /min University of 21:00:00 [facility] Body height 2023-01-13 177.8 cm University of 18:59:00 [facility] Body weight 2023-01-13 107.956 kg University of 18:59:00 [facility] BMI 2023-01-13 34.15 kg/m2 University of 18:59:00 [facility] Systolic blood 2023-01-06 135 mm[Hg] University of pressure 21:47:00 [facility] Diastolic blood 2023-01-06 75 mm[Hg] University o f pressure 21:47:00 [facility] Heart rate 2023-01-06 87 /min University of 21:47:00 [facility] Body temperature 2023-01-06 36.67 Jessie University of 21:47:00 [facility] Body height 2023-01-06 177.8 cm University of 21:47:00 [facility] Body weight 2023-01-06 107.049 kg University of 21:47:00 [facility] BMI 2023-01-06 33.86 kg/m2 University of 21:47:00 [facility] Oxygen saturation 2023-01-06 97 /min [facility] in Arterial blood 21:47:00 [facility] by Pulse oximetry [place] Systolic blood 2022-12-31 132 mm[Hg] University of pressure 18:15:00 [facility] Diastolic blood 2022-12-31 85 mm[Hg] University o f pressure 18:15:00 [facility] Heart rate 2022-12-31 62 /min University of 18:15:00 [facility] Body temperature 2022-12-31 36.61 Jessie University of 18:15:00 [facility] Respiratory rate 2022-12-31 16 /min University of 18:15:00 [facility] Oxygen saturation 2022-12-31 98 /min University of in Arterial blood 18:15:00 [facility] by Pulse oximetry Branch Body height 2022-12-31 177.8 cm University of 04:26:00 [facility] Body weight 2022-12-31 108.999 kg bedscale with 1 University o f 04:26:00 pillow, 1 [facility] sheet, 1 [facility] blanket, without bed pump BMI 2022-12-31 34.48 kg/m2 University of 04:26:00 [facility] Systolic blood 2022-12-31 146 mm[Hg] University of pressure 01:22:00 [facility] Diastolic blood 2022-12-31 85 mm[Hg] University o f pressure 01:22:00 [facility] Heart rate 2022-12-31 84 /min University of :21:00 [facility] Body temperature 2022-12-31 37.11 Jessie University of :21:00 [facility] Respiratory rate 2022-12-31 15 /min University of ::00 [facility] Body height 2022-12-31 177.8 cm University of ::00 [facility] Body weight 2022-12-31 107.729 kg University of :21:00 [facility] BMI 2022-12-31 34.08 kg/m2 University of :21:00 [facility] Oxygen saturation 2022-12-31 96 /min University of in Arterial blood 01:21:00 [facility] by Pulse oximetry [facility] Systolic blood 2022-12-22 130 mm[Hg] University of pressure 19:31: [facility] Diastolic blood 2022-12-22 80 mm[Hg] University o f pressure 19:31:00 [facility] Heart rate 2022-12-22 75 /min University of 19:31:00 [facility] Body height 2022-12-22 177.8 cm University of 19:31:00 [facility] Body weight 2022-12-22 108.183 kg University of 19:31:00 [facility] BMI 2022-12-22 34.22 kg/m2 University of 19:31:00 [facility] Oxygen saturation 2022-12-22 96 /min University of in Arterial blood 19:31:00 [place] [facility] by Pulse oximetry [facility] Systolic blood 2022-12-17 135 mm[Hg] University of pressure 14:40:00 [facility] Diastolic blood 2022-12-17 74 mm[Hg] University o f pressure 14:40:00 [facility] Heart rate 2022-12-17 80 /min University of 14:40:00 [facility] Respiratory rate 2022-12-17 19 /min University of 14:40:00 [facility] Body height 2022-12-17 177.8 cm University of 14:40:00 [facility] Body weight 2022-12-17 107.729 kg University of 14:40:00 [facility] BMI 2022-12-17 34.08 kg/m2 University of 14:40:00 [facility] Oxygen saturation 2022-12-17 97 /min University of in Arterial blood 14:40:00 [place] [facility] by Pulse oximetry [facility] Systolic blood 2022-12-16 142 mm[Hg] University of pressure 05:00:00 [facility] Diastolic blood 2022-12-16 85 mm[Hg] University o f pressure 05:00:00 [facility] Heart rate 2022-12-16 91 /min University of 05:00:00 [facility] Respiratory rate 2022-12-16 23 /min University of 05:00:00 [facility] Oxygen saturation 2022-12-16 95 /min University of in Arterial blood 05:00:00 [facility] by Pulse oximetry [facility] Body temperature 2022-12-16 36.89 Jessie University of 02:30:00 [facility] Body height 2022-12-16 177.8 cm University of 02:30:00 [facility] Body weight 2022-12-16 108.138 kg University of 02:30:00 [facility] BMI 2022-12-16 34.21 kg/m2 University of 02:30:00 [facility] Systolic blood 2022-12-04 144 mm[Hg] University of pressure 20:59:00 [facility] Diastolic blood 2022-12-04 74 mm[Hg] University o f pressure 20:59:00 [facility] Heart rate 2022-12-04 84 /min University of 20:57:00 [facility] Body temperature 2022-12-04 36.67 Jessie University of 20:57:00 [facility] Body height 2022-12-04 177.8 cm University of 20:57:00 [facility] Body weight 2022-12-04 104.781 kg University of 20:57:00 [facility] BMI 2022-12-04 33.15 kg/m2 University of 20:57:00 [facility] Oxygen saturation 2022-12-04 96 /min University of in Arterial blood 20:57:00 [facility] by Pulse oximetry [facility] Systolic blood 2022-12-04 133 mm[Hg] University of pressure 04:00:00 [facility] Diastolic blood 2022-12-04 82 mm[Hg] University o f pressure 04:00:00 [facility] Heart rate 2022-12-04 76 /min University of 04:00:00 [facility] Respiratory rate 2022-12-04 19 /min University of 04:00:00 [facility] Oxygen saturation 2022-12-04 97 /min University of in Arterial blood 04:00:00 [place] [facility] Pulse oximetry [facility] Body temperature 2022-12-04 37 Jessie University of 01:05:00 [facility] Body height 2022-12-04 175.3 cm University of 01:05:00 [facility] Body weight 2022-12-04 97.07 kg University of 01:05:00 [facility] BMI 2022-12-04 31.60 kg/m2 University of 01:05:00 [facility] Systolic blood 2022-11-27 153 mm[Hg] University of pressure 03:00:00 [facility] Diastolic blood 2022-11-27 83 mm[Hg] University o f pressure 03:00:00 [facility] Heart rate 2022-11-27 76 /min University of 03:00:00 [facility] Respiratory rate 2022-11-27 23 /min University of 03:00:00 [facility] Oxygen saturation 2022-11-27 92 /min University of in Arterial blood 03:00:00 [facility] by Pulse oximetry [facility] Body temperature 2022-11-26 37.11 Jessie University of 23:22:00 [facility] Body height 2022-11-26 175.3 cm University of 23:22:00 [facility] Body weight 2022-11-26 103.874 kg University of 23:22:00 [facility] BMI 2022-11-26 33.82 kg/m2 University of 23:22:00 [facility] Systolic blood 2022-11-07 123 mm[Hg] University of pressure 22:06:00 [facility] Diastolic blood 2022-11-07 73 mm[Hg] University o f pressure 22:06:00 [facility] Heart rate 2022-11-07 88 /min University of :05:00 [facility] Body temperature 2022-11-07 37 Jessie University of 22:05:00 [facility] Body height 2022-11-07 177.8 cm University of :05:00 [facility] Body weight 2022-11-07 102.967 kg University of 22:05:00 [facility] BMI 2022-11-07 32.57 kg/m2 University of 22:05:00 [facility] Oxygen saturation 2022-11-07 97 /min University of in Arterial blood 22:05:00 [facility] [place] [facility] Pulse oximetry [facility] Systolic blood 2022-11-07 115 mm[Hg] University of pressure 08:00:00 [facility] Diastolic blood 2022-11-07 80 mm[Hg] University o f pressure 08:00:00 [facility] Heart rate 2022-11-07 90 /min University of 08:00:00 [facility] Respiratory rate 2022-11-07 18 /min University of 08:00:00 [facility] Oxygen saturation 2022-11-07 97 /min University of in Arterial blood 08:00:00 [facility] by Pulse oximetry [facility] Body temperature 2022-11-07 37.44 Jessie University of 05:32:00 [facility] Body height 2022-11-07 177.8 cm University of 05:32:00 [facility] Body weight 2022-11-07 99.791 kg University of 05:32:00 [facility] BMI 2022-11-07 31.57 kg/m2 University of 05:32:00 [facility] Systolic blood 2022-11-03 150 mm[Hg] University of pressure 21:05:00 [facility] Diastolic blood 2022-11-03 86 mm[Hg] University o f pressure 21:05:00 [facility] Heart rate 2022-11-03 94 /min University of 21:05:00 [facility] Body temperature 2022-11-03 36.94 Jessie University of 21:05:00 [facility] Body height 2022-11-03 175.3 cm University of 21:05:00 [facility] Body weight 2022-11-03 102.059 kg University of 21:05:00 [facility] BMI 2022-11-03 33.23 kg/m2 University of 21:05:00 [facility] Oxygen saturation 2022-11-03 98 /min University of in Arterial blood 21:05:00 [facility] [place] [facility] Pulse oximetry [facility] Systolic blood 2022-10-07 133 mm[Hg] University of pressure 20:56:00 [facility] Diastolic blood 2022-10-07 85 mm[Hg] University o f pressure 20:56:00 [facility] Heart rate 2022-10-07 94 /min University of 20:56:00 [facility] Body temperature 2022-10-07 36.5 Jessie University of 20:56:00 [facility] Respiratory rate 2022-10-07 18 /min University of 20:56:00 [facility] Body height 2022-10-07 175.3 cm University of 20:56:00 [facility] Body weight 2022-10-07 103.619 kg University of 20:56:00 [facility] BMI 2022-10-07 33.73 kg/m2 University of 20:56:00 [facility] Oxygen saturation 2022-10-07 99 /min University of in Arterial blood 20:56:00 [facility] Pulse oximetry [facility] Systolic blood 2022-09-29 160 mm[Hg] University of pressure 15:04:00 [facility] Diastolic blood 2022-09-29 75 mm[Hg] University o f pressure 15:04:00 [facility] Heart rate 2022-09-29 96 /min University of 15:02:00 [facility] Body height 2022-09-29 175.3 cm University of 15:02:00 [facility] Body weight 2022-09-29 107.049 kg University of 15:02:00 [facility] BMI 2022-09-29 34.85 kg/m2 University of 15:02:00 [facility] Oxygen saturation 2022-09-29 100 /min on 2 liters of Universi ty of in Arterial blood 15:02:00 oxygen [facility] by Pulse oximetry Branch Systolic blood 2022-09-23 122 mm[Hg] University of pressure 16:19:00 [facility] Diastolic blood 2022-09-23 75 mm[Hg] University o f pressure 16:19:00 [facility] Heart rate 2022-09-23 84 /min University of 16:19:00 [facility] Body temperature 2022-09-23 35.83 Jessie University of 16:19:00 [facility] Respiratory rate 2022-09-23 18 /min University of 16:19:00 [facility] Oxygen saturation 2022-09-23 97 /min University of in Arterial blood 16:19:00 [place] [facility] Body weight 2022-09-23 104.962 kg University of 09:18:00 [facility] BMI 2022-09-23 34.17 kg/m2 University of 09:18:00 [facility] Systolic blood 2022-09-22 142 mm[Hg] University of pressure 13:27:00 [facility] Diastolic blood 2022-09-22 80 mm[Hg] University o f pressure 13:27:00 [facility] Heart rate 2022-09-22 91 /min University of 13::00 [facility] Body height 2022-09-22 175.3 cm University of 13::00 [facility] Body weight 2022-09-22 105.688 kg University of 13::00 [facility] BMI 2022-09-22 34.41 kg/m2 University of 13::00 [facility] Oxygen saturation 2022-09-22 97 /min on 2 liters University of in Arterial blood 13::00 oxygen [place] [facility] by Pulse oximetry [facility] Systolic blood 2022-09-15 148 mm[Hg] University of pressure 16::00 [facility] Diastolic blood 2022-09-15 88 mm[Hg] University o f pressure 16::00 [facility] Heart rate 2022-09-15 97 /min University of 16::00 [facility] Respiratory rate 2022-09-15 22 /min University of 16:07:00 [facility] Body height 2022-09-15 175.3 cm University of 16::00 [facility] Body weight 2022-09-15 105.96 kg University of 16::00 [facility] BMI 2022-09-15 34.50 kg/m2 University of 16:07:00 [facility] Oxygen saturation 2022-09-15 97 /min on 2L [place] University of in Arterial blood 16:07:00 [place] [facility] Systolic blood 2022-09-12 147 mm[Hg] University of pressure 20:29:00 [facility] Diastolic blood 2022-09-12 78 mm[Hg] University o f pressure 20:29:00 [facility] Heart rate 2022-09-12 97 /min University of 20:28:00 [facility] Body temperature 2022-09-12 36.61 Jessie University of 20:28:00 [facility] Body height 2022-09-12 175.3 cm University of 20:28:00 [facility] Body weight 2022-09-12 107.502 kg University of 20:28:00 [facility] BMI 2022-09-12 35.00 kg/m2 University of :28:00 [facility] Oxygen saturation 2022-09-12 94 /min on 2 liters University of in Arterial blood 20:28:00 [place] [facility] Pulse oxim[facility] Systolic blood 2022-09-08 139 mm[Hg] University of pressure 21:10:00 [facility] Diastolic blood 2022-09-08 74 mm[Hg] University o f pressure 21:10:00 [facility] Heart rate 2022-09-08 93 /min University of 20:04:00 [facility] Body temperature 2022-09-08 36.5 Jessie University of :04:00 [facility] Body height 2022-09-08 175.3 cm University of :04:00 [facility] Body weight 2022-09-08 109.317 kg University of :04:00 [facility] BMI 2022-09-08 35.59 kg/m2 University of 20:04:00 [facility] Oxygen saturation 2022-09-08 98 /min with 2 liters Universit y of in Arterial blood 20:04:00 of oxygen [facility] by Pulse oximetry Branch Systolic blood 2022-09-06 109 mm[Hg] University of pressure :25:00 [facility] Diastolic blood 2022-09-06 77 mm[Hg] University o f pressure :25:00 [facility] Heart rate 2022-09-06 105 /min University of ::00 [facility] Body temperature 2022-09-06 37.11 Jessie University of :25:00 [facility] Respiratory rate 2022-09-06 24 /min University of :25:00 [facility] Body weight 2022-09-06 108.41 kg University of :25:00 [facility] BMI 2022-09-06 35.29 kg/m2 University of :25:00 [facility] Oxygen saturation 2022-09-06 97 /min University of in Arterial blood 22:25:00 [place] [facility] P[facility] Heart rate 2022-09-02 99 /min University of 05:03:00 [facility] Respiratory rate 2022-09-02 16 /min University of 05:03:00 [facility] Oxygen saturation 2022-09-02 97 /min University of in Arterial blood 05:03:00 [facility] by Pulse oximetry Branch Systolic blood 2022-09-02 136 mm[Hg] University of pressure 05:00:00 [facility] Diastolic blood 2022-09-02 84 mm[Hg] University o f pressure 05:00:00 [facility] Body temperature 2022-09-02 37.11 Jessie University of 02:16:00 [facility] Body height 2022-09-02 175.3 cm University of 02:16:00 [facility] Body weight 2022-09-02 111.585 kg University of 02:16:00 [facility] BMI 2022-09-02 36.33 kg/m2 University of 02:16:00 [facility] Systolic blood 2022-08-29 132 mm[Hg] University of pressure 19:10:00 [facility] Diastolic blood 2022-08-29 88 mm[Hg] University o f pressure 19:10:00 [facility] Heart rate 2022-08-29 86 /min University of 19:10:00 [facility] Body weight 2022-08-29 111.948 kg University of 19:10:00 [facility] BMI 2022-08-29 36.45 kg/m2 University of 19:10:00 [facility] Oxygen saturation 2022-08-29 98 /min University of in Arterial blood 19:10:00 [facility] by Pulse oximetry Branch Systolic blood 2022-08-26 120 mm[Hg] University of pressure 14:52:00 [facility] Diastolic blood 2022-08-26 90 mm[Hg] University o f pressure 14:52:00 [facility] Respiratory rate 2022-08-26 20 /min University of 14:52:00 [facility] Oxygen saturation 2022-08-26 95 /min University of in Arterial blood 14:52:00 [facility] by Pulse oximetry Branch Heart rate 2022-08-26 72 /min University of 13:55:00 [facility] Body height 2022-08-26 175.3 cm University of 13:10:00 [facility] Body weight 2022-08-26 111.131 kg University of 13:10:00 [facility] BMI 2022-08-26 36.18 kg/m2 University of 13:10:00 [facility] Systolic blood 2022-08-25 142 mm[Hg] University of pressure 02:40:00 [place] [facility] Diastolic blood 2022-08-25 74 mm[Hg] University o f pressure 02:40:00 [facility] Heart rate 2022-08-25 75 /min University of 02:40:00 [facility] Respiratory rate 2022-08-25 22 /min University of 02:40:00 [facility] Oxygen saturation 2022-08-25 96 /min University of in Arterial blood 02:40:00 [facility] by Pulse oximetry Branch Body temperature 2022-08-24 36.89 Jessie University of 23:52:00 [facility] Body height 2022-08-24 175.3 cm University of 23:52:00 [facility] Body weight 2022-08-24 111.131 kg University of 23:52:00 [facility] BMI 2022-08-24 36.18 kg/m2 University of 23:52:00 [facility] Systolic blood 2022-08-24 148 mm[Hg] University of pressure 23:35:00 [facility] Diastolic blood 2022-08-24 83 mm[Hg] University o f pressure 23:35:00 [facility] Heart rate 2022-08-24 84 /min University of 23:34:00 [facility] Body temperature 2022-08-24 37.06 Jessie University of 23:34:00 [facility] Respiratory rate 2022-08-24 18 /min University of 23:34:00 [facility] Body weight 2022-08-24 111.131 kg University of 23:34:00 [facility] BMI 2022-08-24 35.15 kg/m2 University of 23:34:00 [facility] Oxygen saturation 2022-08-24 96 /min University of in Arterial blood 23:34:00 [facility] by Pulse oximetry Branch Systolic blood 2022-08-22 164 mm[Hg] University of pressure 15:46:00 [place] [facility] Diastolic blood 2022-08-22 92 mm[Hg] University o f pressure 15:46:00 [facility] Heart rate 2022-08-22 81 /min University of 15:45:00 [facility] Body temperature 2022-08-22 36.83 Jessie University of 15:45:00 [facility] Body height 2022-08-22 177.8 cm University of 15:45:00 [facility] Body weight 2022-08-22 111.131 kg University of 15:45:00 [facility] BMI 2022-08-22 35.15 kg/m2 University of 15:45:00 [facility] Oxygen saturation 2022-08-22 99 /min University of in Arterial blood 15:45:00 [facility] by Pulse oximetry Branch Respiratory rate 2022-08-16 16 /min University of 20:53:00 [facility] Oxygen saturation 2022-08-16 98 /min University of in Arterial blood 20:53:00 [facility] by Pulse oximetry Branch Systolic blood 2022-08-16 101 mm[Hg] University of pressure 16:44:00 [facility] Diastolic blood 2022-08-16 59 mm[Hg] University o f pressure 16:44:00 [facility] Heart rate 2022-08-16 65 /min University of 16:44:00 [facility] Body temperature 2022-08-16 35.72 Jessie University of 16:44:00 [facility] Body weight 2022-08-16 110.995 kg University of 08:21:00 [facility] BMI 2022-08-16 36.14 kg/m2 University of 08:21:00 [facility] Body height 2022-08-15 175.3 cm University of 02:17:00 [facility] Systolic blood 2022-07-31 127 mm[Hg] University of pressure 21:19:00 [facility] Diastolic blood 2022-07-31 82 mm[Hg] University o f pressure 21:19:00 [facility] Heart rate 2022-07-31 104 /min University of 21:19:00 [facility] Body temperature 2022-07-31 37.28 Jessie University of 21:19:00 [facility] Respiratory rate 2022-07-31 18 /min University of 21:19:00 [facility] Body height 2022-07-31 175.3 cm University of 21:19:00 [facility] Body weight 2022-07-31 110.224 kg University of 21:19:00 [facility] BMI 2022-07-31 35.88 kg/m2 University of 21:19:00 [facility] Oxygen saturation 2022-07-31 99 /min University of in Arterial blood 21:19:00 [facility] by Pulse oximetry Branch Systolic blood 2022-07-26 133 mm[Hg] University of pressure 03:35:00 [facility] Diastolic blood 2022-07-26 85 mm[Hg] University o f pressure 03:35:00 [facility] Heart rate 2022-07-26 79 /min University of 03:35:00 [facility] Respiratory rate 2022-07-26 18 /min University of 03:35:00 [facility] Oxygen saturation 2022-07-26 98 /min University of in Arterial blood 03:35:00 [facility] by Pulse oximetry Branch Body temperature 2022-07-25 37.89 Jessie University of 23:12:00 [facility] Body height 2022-07-25 175.3 cm University of 23:12:00 [facility] Body weight 2022-07-25 110.224 kg University of 23:12:00 [facility] BMI 2022-07-25 35.88 kg/m2 University of 23:12:00 [facility] Systolic blood 2022-07-25 136 mm[Hg] University of pressure 22:31:00 [facility] Diastolic blood 2022-07-25 84 mm[Hg] University o f pressure 22:31:00 [facility] Heart rate 2022-07-25 103 /min University of 22:30:00 [facility] Body temperature 2022-07-25 36.78 Jessie University of 22:30:00 [facility] Respiratory rate 2022-07-25 18 /min University of 22:30:00 [facility] Body height 2022-07-25 175.3 cm University of 22:30:00 [facility] Body weight 2022-07-25 110.632 kg University of 22:30:00 [facility] BMI 2022-07-25 36.02 kg/m2 University of 22:30:00 [facility] Oxygen saturation 2022-07-25 97 /min University of in Arterial blood 22:30:00 [facility] by Pulse oximetry Branch Systolic blood 2022-07-16 146 mm[Hg] University of pressure 13:05:00 [facility] Diastolic blood 2022-07-16 72 mm[Hg] University o f pressure 13:05:00 [facility] Heart rate 2022-07-16 85 /min University of 12:22:00 [facility] Body temperature 2022-07-16 37.06 Jessie University of 12:22:00 [facility] Body height 2022-07-16 175.3 cm University of 12:22:00 [facility] Body weight 2022-07-16 111.766 kg University of 12:22:00 [facility] BMI 2022-07-16 36.39 kg/m2 University of 12:22:00 [facility] Oxygen saturation 2022-07-16 97 /min University of in Arterial blood 12:22:00 [place] [facility] Pulse [facility] Systolic blood 2022-07-04 122 mm[Hg] University of pressure 16:35:00 [facility] Diastolic blood 2022-07-04 71 mm[Hg] University o f pressure 16:35:00 [facility] Heart rate 2022-07-04 83 /min University of 16:35:00 [facility] Body temperature 2022-07-04 36.5 Jessie University of 16:35:00 [facility] Respiratory rate 2022-07-04 18 /min University of 16:35:00 [facility] Body weight 2022-07-04 110.315 kg University of 16:35:00 [facility] BMI 2022-07-04 35.91 kg/m2 University of 16:35:00 [facility] Oxygen saturation 2022-07-04 96 /min University of in Arterial blood 16:35:00 [place] [facility] Pulse o[facility] Systolic blood 2022-07-04 122 mm[Hg] University of pressure 16:35:00 [facility] Diastolic blood 2022-07-04 71 mm[Hg] University o f pressure 16:35:00 [facility] Heart rate 2022-07-04 83 /min University of 16:35:00 [facility] Body temperature 2022-07-04 36.5 Jessie University of 16:35:00 [facility] Respiratory rate 2022-07-04 18 /min University of 16:35:00 [facility] Body weight 2022-07-04 110.315 kg University of 16:35:00 [facility] BMI 2022-07-04 35.91 kg/m2 University of 16:35:00 [facility] Oxygen saturation 2022-07-04 96 /min University of in Arterial blood 16:35:00 [place] [facility] Pulse o[facility] Systolic blood 2021-03-29 127 mm[Hg] University of pressure 14:50:00 [facility] Diastolic blood 2021-03-29 75 mm[Hg] University o f pressure 14:50:00 [facility] Heart rate 2021-03-29 73 /min University of 14:50:00 [facility] [place] [facility] Respiratory rate 2021-03-29 14 /min University of 14:50:00 [facility] Oxygen saturation 2021-03-29 97 /min University of in Arterial blood 14:50:00 [place] [facility] Pulse o[facility] Body temperature 2021-03-29 36.06 Jessie University of 14:22:00 [facility] Body height 2021-03-27 175.3 cm University of 18:45:00 [facility] Body weight 2021-03-27 105.688 kg University of 18:45:00 [facility] BMI 2021-03-27 34.41 kg/m2 University of 18:45:00 [facility] Systolic blood 2021-03-29 127 mm[Hg] University of pressure 14:50:00 [place] [facility] Diastolic blood 2021-03-29 75 mm[Hg] University o f pressure 14:50:00 [facility] Heart rate 2021-03-29 73 /min University of 14:50:00 [facility] Respiratory rate 2021-03-29 14 /min University of 14:50:00 [facility] Oxygen saturation 2021-03-29 97 /min University of in Arterial blood 14:50:00 [facility] by Pulse oximetry Branch Body temperature 2021-03-29 36.06 Jessie University of 14:22:00 [facility] Body height 2021-03-27 175.3 cm University of 18:45:00 [facility] Body weight 2021-03-27 105.688 kg University of 18:45:00 [facility] BMI 2021-03-27 34.41 kg/m2 University of 18:45:00 [facility] Respiratory rate 2021-03-29 12 /min University of 14:19:00 [facility] Respiratory rate 2021-03-29 12 /min University of 14:19:00 [facility] [place] [facility] Systolic (mm Hg) 2015-05-22 [facility] rmann 04:27:00 Diastolic (mm Hg) 2015-05-22 [facility] ermann 04:27:00 Heart Rate 2015-05-22 Jarrell Huntley n 04:27:00 Temperature Oral 2015-05-22 98.6 F Jarrell Louise rmann (F) 04:27:00 Respitory Rate 2015-05-22 Jarrell Lowery james 04:27:00 Weight 2015-05-22 Jarrell Huntley n 01:15:00 Temperature Oral 2015-05-22 98.5 F Jarrell Louise rmann (F) 01:15:00 Heart Rate 2015-05-22 Jarrell Loweryan n 01:15:00 Respitory Rate 2015-05-22 Jarrell Herm james 01:15:00 Systolic (mm Hg) 2015-05-22 [facility] r[facility] 01:15:00 Diastolic (mm Hg) 2015-05-22 [facility] Cristina ermann 01:15:00 Procedures Procedure Date / Time Performing Clinician Source Performed CONSENT/REFUSAL FOR 2023-01-18 04:22:16 Doctor Unassigned, [facility] DIAGNOSIS AND TREATMENT [place] [facility] BASIC METABOLIC PANEL (NA, 2023-01-13 19:22:00 Malcolm Zaldivar [facility] K, CL, CO2, GLUCOSE, BUN, Medica l Branch CREATININE, CA) CBC WITH DIFF 2023-01-13 19:22:00 Patricia Zaldivar [facility] POCT GLUCOSE (AUTOMATED) 2022-12-31 18:13:00 Shad العلي [facility] POCT GLUCOSE (AUTOMATED) 2022-12-31 13:43:00 Shad العلي [facility] LACTIC ACID WHOLE BLOOD 2022-12-31 09:56:00 Bryon Metcalf [facility] MAGNESIUM 2022-12-31 09:36:00 Shad العلي [facility] BASIC METABOLIC PANEL (NA, 2022-12-31 09:36:[address] [facility] K, CL, CO2, GLUCOSE, BUN, Medica l Branch CREATININE, CA) CBC WITH DIFF 2022-12-31 09:36:00 [facility]) 2022-12-31 09:35:00 Shad العلي [facility] POCT GLUCOSE (AUTOMATED) 2022-12-31 06:07:00 Shad العلي [facility] POCT GLUCOSE (AUTOMATED) 2022-12-31 03:43:00 Shad العلي [facility] CT ABDOMEN PELVIS WO 2022-12-31 03:36:[address] [facility] BLOOD CULTURE SCREEN 2022-12-31 03:11:00 Singer [facility] BLOOD CULTURE SCREEN 2022-12-31 02:56:00 Singer [facility] URINALYSIS 2022-12-31 02:19:00 Singer [facility] COMP. METABOLIC PANEL 2022-12-31 02:14:00 Singer [facility] ([id number]) [facility] CBC WITH DIFF 2022-12-31 02:14:00 Singer [facility] GLYCOSYLATED HEMOGLOBIN 2022-12-31 02:14:00 Severiano [facility] (A1C) [facility] VBG+VCOOX+NA+K+GLU+CA2+ 2022-12-31 02:12:00 Singer [facility] LACTIC ACID WHOLE BLOOD 2022-12-31 02:12:00 Singer [facility] NOTICE OF PRIVACY 2022-12-31 01:50:13 Doctor Unassigned, [facility] PRACTICES [place] [facility] CONSENT/REFUSAL FOR 2022-12-31 01:49:59 Doctor Unassigned, [facility] DIAGNOSIS AND TREATMENT [place] [facility] US RETROPERITONEAL LIMITED 2022-12-26 00:40:00 Warner Castelan [facility] ASSIGNMENT OF BENEFITS 2022-12-25 23:39:04 Doctor Unassigned, [facility] [place] [facility] CONSENT/REFUSAL FOR 2022-12-25 23:38:49 Doctor Unassmallika, [facility] DIAGNOSIS AND TREATMENT [place] [facility] CT ABDOMEN PELVIS WO 2022-12-16 04:01:00 Sera Navarrete [facility] COMP. METABOLIC PANEL 2022-12-16 03:52:00 Sera Navarrete [facility] ([id number]) Medical Branch CBC WITH DIFF 2022-12-16 03:52:00 Sera Navarrete [facility] URINALYSIS 2022-12-16 03:52:00 Sera Navarrete [facility] NOTICE OF PRIVACY 2022-12-16 02:07:56 Doctor Unachuckigned, [facility] [place] [facility] [place] CONSENT/REFUSAL FOR 2022-12-16 02:07:40 Doctor Unassigned, [facility] DIAGNOSIS AND TREATMENT [place] [facility] CT THORAX W CONTRAST 2022-12-04 03:23:[address] [facility] TROPONIN I 2022-12-04 01:54:00 Sera Navarrete [facility] COMP. METABOLIC PANEL 2022-12-04 01:54:00 Sera Navarrete [facility] ([id number]) Medical Branch CBC WITH DIFF 2022-12-04 01:54:00 Sera Navarrete [facility] PROTHROMBIN TIME / INR 2022-12-04 01:54:00 Sera Navarrete [facility] XR CHEST 1 VW 2022-11-27 01:13:00 Anupama [facility] TROPONIN I 2022-11-26 23:56:00 Anupama [facility] COMP. METABOLIC PANEL 2022-11-26 23:56:00 Anupama Anna [facility] ([id number]) Medical Branch CBC WITH DIFF 2022-11-26 23:56:00 Anupama [facility] RAPID INFLUENZA A/B 2022-11-26 23:56:00 Anupama Anna [facility] N-TERMINAL PRO-BNP 2022-11-26 23:56:00 Anupama Anna [facility] COVID-19 (ID NOW RAPID 2022-11-26 23:56:00 Anupama Anna [facility] TESTING) Medical Branch CONSENT/REFUSAL FOR 2022-11-26 23:08:05 Doctor Unassigned, [facility] DIAGNOSIS AND TREATMENT [place] [facility] [place] ASSIGNMENT OF BENEFITS 2022-11-10 14:41:19 Doctor Unassigned, [facility] Name [facility] POCT MOLECULAR FLU 2022-11-07 22:29[facility]00 [facility] SARS-COV-2 ANTIGEN 2022-11-07 22:20:00 [facility] (BINAX NOW) [facility] CT ABDOMEN PELVIS W 2022-11-07 07:31:12 Sera Navarrete [facility] CONTRAST Medical Branch LIPASE 2022-11-07 06:42:00 Sera Navarrete [facility] COMP. METABOLIC PANEL 2022-11-07 06:42:00 Sera Navarrete [facility] ([id number]) [facility] CBC WITH DIFF 2022-11-07 06:42:00 Sera Navarrete [facility] PROTHROMBIN TIME / INR 2022-11-07 06:42:00 Sera Navarrete [facility] CONSENT/REFUSAL FOR 2022-11-07 05:18:58 Doctor Unassmallika, [facility] DIAGNOSIS AND TREATMENT [place] [facility] ASSIGNMENT OF BENEFITS 2022-10-28 19:56:44 Doctor Unassigned, [facility] POCT GLUCOSE (AUTOMATED) 2022-09-23 18:49:[address] [facility] POCT GLUCOSE (AUTOMATED) 2022-09-23 17:09:[address] [facility] POCT GLUCOSE (AUTOMATED) 2022-09-23 12:30:[address] [facility] BASIC METABOLIC PANEL (NA, 2022-09-23 09:55:[address] [facility] K, CL, CO2, GLUCOSE, BUN, Medica l Branch CREATININE, CA) CBC WITH DIFF 2022-09-23 09:55:00 N[facility] POCT GLUCOSE (AUTOMATED) 2022-09-23 09:53:00 Shad العلي [facility] POCT GLUCOSE (AUTOMATED) 2022-09-23 05:27:00 Shad العلي Uni [facility] POCT GLUCOSE (AUTOMATED) 2022-09-23 02:08:00 Shad العلي Uni [facility] POCT GLUCOSE (AUTOMATED) 2022-09-22 23:50:00 Jean Ramírez Uni [facility] POCT GLUCOSE (AUTOMATED) 2022-09-22 22:02:00 Jean Ramírez [facility] TROPONIN I 2022-09-22 21:13:00 [facility] HB ECG ROUTINE & RHYTHM 2022-09-22 21:09:05 Jean Ramírez [facility] POCT GLUCOSE (AUTOMATED) 2022-09-22 20:57:00 Jean Ramírez [facility] POCT GLUCOSE (AUTOMATED) 2022-09-22 20:22:00 Jean Ramírez [facility] URINALYSIS 2022-09-22 19:14:00 [facility] BASIC METABOLIC PANEL (NA, 2022-09-22 19:03:00 Jean Ramírez [facility] K, CL, CO2, GLUCOSE, BUN, Medica l Branch CREATININE, CA) CBC WITH DIFF 2022-09-22 19:03:00 [facility] GLYCOSYLATED HEMOGLOBIN 2022-09-22 19:03:00 Sridhar Rayo [facility] (A1C) [facility] POCT GLUCOSE (AUTOMATED) 2022-09-22 18:42:00 Jean Ramírez [facility] CONSENT/REFUSAL FOR 2022-09-22 18:30:46 Doctor Unassigned, [facility] DIAGNOSIS AND TREATMENT [place] [facility] URINALYSIS 2022-09-22 13:54:00 Amanda [facility] POCT GLUCOSE (AUTOMATED) 2022-09-22 13:23:00 Amanda Perez [facility] PULMONARY FUNCTION TEST 2022-09-19 12:32:47 Pk Olea [facility] (RESULTS) Medical Branch INSURANCE CORRESPONDENCE 2022-09-16 05:01:00 Doctor Viktoriya, [facility] [place] [facility] XR CHEST 2 VW 2022-09-06 23:25:00 Kaylee Duffy [place] o f [facility] XR CHEST 1 VW 2022-09-02 03:21:06 Sophie Burton [facility] MAGNESIUM 2022-09-02 03:01:00 Sophie Burton [facility] TROPONIN I 2022-09-02 03:01:00 Sophie Burton [facility] COMP. METABOLIC PANEL 2022-09-02 03:01:00 Sophie Burton [facility] ([id number]) [facility] CBC WITH DIFF 2022-09-02 03:01:00 Sophie Burton [facility] N-TERMINAL PRO-BNP 2022-09-02 03:01:[address] [facility] COVID-19 (ID NOW RAPID 2022-09-02 03:01:00 Sophie Burton [facility] TESTING) [facility] CONSENT/REFUSAL FOR 2022-09-02 02:05:28 Doctor Viktoriya [facility] DIAGNOSIS AND TREATMENT [place] [facility] AUTHORIZATION TO RELEASE 2022-08-29 05:01:00 Doctor Sadler [facility] PHI TO [facility] [place] [facility] [place] TRANSESOPHAGEAL ECHO (ZEHRA) 2022-08-26 15:16:44 Dustin Angeles [facility] COMPLETE W/ DOPPLER AND Health System COLOR POCT GLUCOSE (AUTOMATED) 2022-08-25 02:18:00 Daniel Jackson [facility] POCT GLUCOSE (AUTOMATED) 2022-08-25 01:25:00 Daniel Jackson [facility] COMP. METABOLIC PANEL 2022-08-25 00:37:00 Daniel Jackson [facility] ([id number]) Medical Branch CBC WITH DIFF 2022-08-25 00:37:00 Daniel Jackson [facility] URINALYSIS 2022-08-25 00:31:00 Daniel Jackson [facility] POCT GLUCOSE (AUTOMATED) 2022-08-24 23:57:00 Daniel Jackson [facility] CONSENT/REFUSAL FOR 2022-08-24 23:47:33 Doctor Unassigned, [facility] DIAGNOSIS AND TREATMENT [place] [facility] POCT GLUCOSE (AUTOMATED) 2022-08-24 23:28:00 Omaghomi, Omayemi U [facility] BASIC METABOLIC PANEL (NA, 2022-08-16 18:07:00 Lynsey Castillo [facility] K, CL, CO2, GLUCOSE, BUN, Medica l Branch CREATININE, CA) POCT GLUCOSE (AUTOMATED) 2022-08-16 16:46:00 Shad العلي [facility] POCT GLUCOSE (AUTOMATED) 2022-08-16 12:50:00 Shad العلي [facility] POTASSIUM, URINE RANDOM 2022-08-16 11:06:00 [facility] RANDOM 2022-08-16 11:06:00 Li [facility] POCT GLUCOSE (AUTOMATED) 2022-08-16 08:50:00 Shad العلي [facility] POCT GLUCOSE (AUTOMATED) 2022-08-16 05:05:00 Shad العلي [facility] POCT GLUCOSE (AUTOMATED) 2022-08-16 01:40:00 Shad العلي [facility] US RETROPERITONEAL 2022-08-16 01:34:00 Ambrose Jefferson [facility] POCT GLUCOSE (AUTOMATED) 2022-08-15 21:25:00 Shad العلي [facility] POCT GLUCOSE (AUTOMATED) 2022-08-15 16:49:00 Sahil Morales [facility] TRANSTHORACIC ECHO (TTE) 2022-08-15 13:55:00 Kirk Espitia [facility] POCT GLUCOSE (AUTOMATED) 2022-08-15 13:08:00 Sahil Morales [facility] URIC ACID 2022-08-15 10:44:00 Sahil Morales [facility] TROPONIN I 2022-08-15 10:44:00 Lynsey Castillo [facility] COMP. METABOLIC PANEL 2022-08-15 10:44:00 Sahil Morales [facility] ([id number]) [facility] AC VBG + LACTIC ACID 2022-08-15 10:44:00 Sahil Morales [facility] SEDIMENTATION RATE 2022-08-15 05:17:00 Sahil Morales [facility] DIFF CONSULT 2022-08-15 05:17:00 Sahil Morales [facility] CBC WITH DIFF 2022-08-15 05:17:00 [facility] PROTHROMBIN TIME / INR 2022-08-15 05:17:00 Sahil Morales [facility] POCT GLUCOSE (AUTOMATED) 2022-08-15 05:09:00 Sahil Morales [facility] PHOSPHORUS 2022-08-15 03:09:00 Sahil [facility]ales [facility] CREATINE KINASE 2022-08-15 03:09:00 [facility] URIC ACID 2022-08-15 03:09:00 [facility] MAGNESIUM 2022-08-15 03:09:00 [facility] FERRITIN SERUM 2022-08-15 03:09:00 Sahil [facility]ales [facility] VITAMIN B12, LEVEL 2022-08-15 03:09:00 Sahil Morales [facility] FOLATE 2022-08-15 03:09:00 [facility] C-REACTIVE PROTEIN 2022-08-15 03:09:00 Andrew beth [facility] THYROID STIMULATING 2022-08-15 03:09:00 Sahil Morales [facility] HORMONE [facility] Branch LIPID PANEL ([id number])(TOTAL 2022-08-15 03:09:00 Sahil Morales [facility] CHOLESTEROL, Medical [place] TRIGLYCERIDES, HDL) IRON PANEL 2022-08-15 03:09:00 [facility] URINE DRUG (IMMUNOASSAY) - 2022-08-15 03:09:[address] [facility] COMPREHENSIVE DRUG SCREEN Medica Branch URINALYSIS 2022-08-15 03:09:00 Sahil [facility]ales [facility] PNEUMOCOCCAL ANTIGEN 2022-08-15 03:09:00 Andrew beth [facility] VITAMIN D, 25-OH 2022-08-15 03:09:00 Andrew [facility] PROTEIN CREAT RATIO URINE 2022-08-15 03:09:00 Sahil Morales [facility] SODIUM, URINE RANDOM 2022-08-15 03:09:00 Sahil Morales [facility] PROCALCITONIN 2022-08-15 03:09:00 [facility] AC VBG + LACTIC ACID 2022-08-15 03:09:00 Sahil Morales [facility] RESPIRATORY PANEL BY PCR 2022-08-15 03:09:00 Sahil Morales [facility] CT THORAX W CONTRAST 2022-08-15 02:47:00 Sahil Morales [facility] BLOOD CULTURE SCREEN 2022-08-15 01:23:[address] [facility] PROCALCITONIN 2022-08-15 01:23:00 Gold [place] [facility] COVID-19 (ID NOW RAPID 2022-08-15 00:18:00 Gold [place] [facility] TESTING) Medical Branch LAB ONLY COVID 2022-08-15 00:18:00 Gold [place] [facility] INTERPRETATION [facility] D-DIMER 2022-08-14 23:51:00 Adria, [facility] XR CHEST 2 VW 2022-08-14 23:42:55 Adria Gold [facility] HB ECG ROUTINE & RHYTHM 2022-08-14 23:20:04 [place] [facility] TROPONIN I 2022-08-14 23:19:00 Adria [facility] COMP. METABOLIC PANEL 2022-08-14 23:19:00 Gold [place] [facility] ([id number]) [facility] CBC WITH DIFF 2022-08-14 23:19:00 Adria [facility] GLYCOSYLATED HEMOGLOBIN 2022-08-14 23:19:00 Sahil Morales [facility] (A1C) [facility] N-TERMINAL PRO-BNP 2022-08-14 23:19:00 [place] [facility] CONSENT/REFUSAL FOR 2022-08-14 22:54:01 Doctor Unabonny [facility] DIAGNOSIS AND TREATMENT [facility] POCT SARS-COV-2 ANTIGEN 2022-07-31 21:37:00 Tessa Cline [facility] (BINAX NOW) [facility] COMP. METABOLIC PANEL 2022-07-26 01:49:00 Anupama Anna [facility] ([id number]) [facility] CBC WITH DIFF 2022-07-26 00:38:00 Anupama [facility] LACTIC ACID WHOLE BLOOD 2022-07-26 00:37:00 Anupama Anna [facility] XR FOOT 3+ VW RIGHT 2022-07-26 00:35:18 Anupama Anna [facility] CONSENT/REFUSAL FOR 2022-07-25 23:02:59 Doctor Unabonny [facility] [place] [place] [facility]/RESPONSE 2022-06-11 05:01:00 Doctor Viktoriya , [facility] Name [facility] INTUBATION 2021-03-29 13:43:41 Roney Franco [facility] POCT GLUCOSE (AUTOMATED) 2021-03-29 12:29:00 Fahad Chan [facility] ASSIGNMENT OF BENEFITS 2021-03-28 16:29:48 Doctor Unassigned, [facility] [place] [facility] Lower back [facility] Repair of knee joint [facility] Plan of Care Planned Activity Planned Date Details Comments Source Future Scheduled 2031-02-18 Screening for University of Test 00:00:00 malignant neoplasm [place] [facility] of colon (procedure) Branch [code = 475561367] Future Scheduled 2031-02-18 Screening for University of Test 00:00:00 malignant neoplasm [place] [facility] of colon (procedure) Branch [code = 004492131] Future Scheduled 2031-02-18 Screening for University of Test 00:00:00 malignant neoplasm [place] [facility] of colon (procedure) Branch [code = 396705139] Future Scheduled 2031-02-18 Screening for University of Test 00:00:00 malignant neoplasm [place] [facility] ical of colon (procedure) Branch [code = 967899681] Future Scheduled 2031-02-18 Screening for University of Test 00:00:00 malignant neoplasm [place] [facility] ical of colon (procedure) Branch [code = 139870470] Future Scheduled 2031-02-18 Screening for University of Test 00:00:00 malignant neoplasm [place] [facility] of colon (procedure) Branch [code = 070060441] Future Scheduled 2031-02-18 Screening for University of Test 00:00:00 malignant neoplasm [place] [facility] ical of colon (procedure) Branch [code = 693736774] Future Scheduled 2031-02-18 Screening for University of Test 00:00:00 malignant neoplasm [place] [facility] ical of colon (procedure) Branch [code = 580412166] Future Scheduled 2029-05-31 DTaP,Tdap,and Td Univers ity of Test 00:00:00 Vaccines (2 - Td) [place] [facility] [code = Branch DTaP,Tdap,and Td Vaccines (2 - Td)] Future Scheduled 2029-05-31 DTaP,Tdap,and Td Univers ity of Test 00:00:00 Vaccines (2 - Td) [place] [facility] [code = Branch DTaP,Tdap,and Td Vaccines (2 - Td)] Future Scheduled 2029-05-31 DTaP,Tdap,and Td Univers ity of Test 00:00:00 Vaccines (2 - Td) [place] [facility] [code = Branch DTaP,Tdap,and Td Vaccines (2 - Td)] Future Scheduled 2029-05-31 DTaP,Tdap,and Td Univers ity of Test 00:00:00 Vaccines (2 - Td) [facility] [code = Branch DTaP,Tdap,and Td Vaccines (2 - Td)] Future Scheduled 2022-03-29 Depression screening Uni versity of Test 00:00:00 (procedure) [code = [place] [facility] 743769772] Branch Future Scheduled 2022-03-29 Depression screening Uni versity of Test 00:00:00 (procedure) [code = [place] [facility] 820885673] Branch Future Scheduled 2022-03-24 Creatinine University of Test 00:00:00 measurement [place] [facility] (procedure) [code = Branch [id number]] Future Scheduled 2022-03-24 Creatinine University of Test 00:00:00 measurement [place] [facility] (procedure) [code = Branch [id number]] Future Scheduled 2022-03-24 Creatinine University of Test 00:00:00 measurement [place] [facility] (procedure) [code = Branch 28805021] Future Scheduled 2022-03-24 Creatinine University of Test 00:00:00 measurement [place] [facility] (procedure) [code = Branch [id number]] Future Scheduled 2022-03-14 Microalbumin University of Test 00:00:00 measurement, urine, [place] [facility] quantitative Branch (procedure) [code = 273992755] Future Scheduled 2022-03-14 Microalbumin University of Test 00:00:00 measurement, urine, [place] [facility] d[facility] quantitative Branch (procedure) [code = 181228563] Future Scheduled 2022-03-14 Microalbumin University of Test 00:00:00 measurement, urine, [place] [facility] dical quantitative Branch (procedure) [code = 124165083] Future Scheduled 2022-03-14 Microalbumin University of Test 00:00:00 measurement, urine, [place] [facility] dical quantitative Branch (procedure) [code = 449991553] Future Scheduled 2022-03-01 Calculated low Universit y of Test 00:00:00 density lipoprotein [place] Me dical cholesterol level Branch (procedure) [code = 150246975] Future Scheduled 2022-03-01 Calculated low Universit y of Test 00:00:00 density lipoprotein [place] [facility] dical cholesterol level Branch (procedure) [code = 545374920] Future Scheduled 2022-03-01 Calculated low Universit y of Test 00:00:00 density lipoprotein [facility] dical cholesterol level Branch (procedure) [code = 914909967] Future Scheduled 2022-03-01 Calculated low Universit y of Test 00:00:00 density lipoprotein [facility] dical cholesterol level Branch (procedure) [code = 232355594] Future Scheduled 2022-02-18 Depression screening Uni versity of Test 00:00:00 (procedure) [code = [facility] dical 781981118] Branch Future Scheduled 2022-02-18 Depression screening Uni versity of Test 00:00:00 (procedure) [code = [facility] dical 591443418] Branch Future Scheduled 2022-02-12 Screening for University of Test 00:00:00 malignant neoplasm [place] [facility] ical of lung (procedure) Branch [code = 386271234] Future Scheduled 2022-02-12 Screening for University of Test 00:00:00 malignant neoplasm [place] [facility] ical of lung (procedure) Branch [code = 925666658] Future Scheduled 2022-02-12 Screening for University of Test 00:00:00 malignant neoplasm [place] [facility] ical of lung (procedure) Branch [code = 837265221] Future Scheduled 2022-02-12 Screening for University of Test 00:00:00 malignant neoplasm [place] [facility] ical of lung (procedure) Branch [code = 721296666] Future Scheduled 2021-08-31 Hemoglobin A1c Universit y of Test 00:00:00 measurement [place] [facility] (procedure) [code = Branch 19071395] Future Scheduled 2021-08-31 Hemoglobin A1c Universit y of Test 00:00:00 measurement [place] [facility] (procedure) [code = Branch 30905487] Future Scheduled 2021-08-31 Hemoglobin A1c Universit y of Test 00:00:00 measurement [place] [facility] (procedure) [code = Branch [id number]] Future Scheduled 2021-08-31 Hemoglobin A1c Universit y of Test 00:00:00 measurement [place] [facility] (procedure) [code = Branch 95881760] Diagnostic Test 2021-03-28 COVID-19 (ID NOW Expected: Universi ty of Pending 00:00:00 RAPID TESTING) [code 03/28/2021, Sailaja simon = 93686-4] Expires: Branch 03/28/2022 Future Scheduled 2020-03-21 Examination of Universit y of Test 00:00:00 retina (procedure) [place] [facility] ical [code = 486307051] Branch Future Scheduled 2020-03-21 Examination of Universit y of Test 00:00:00 retina (procedure) [place] [facility] ical [code = 404191511] Branch Future Scheduled 2020-03-21 Examination of Universit y of Test 00:00:00 retina (procedure) [place] [facility] ical [code = 428434731] Branch Future Scheduled 2020-03-21 Examination of Universit y of Test 00:00:00 retina (procedure) [place] [facility] ical [code = 951999149] Branch Future Scheduled 2011 Screening for occult Uni versity of Test 00:00:00 blood in feces [place] [facility] (procedure) [code = Branch 011847855] Future Scheduled 2011 Stool DNA-based Universi ty of Test 00:00:00 colorectal cancer [facility] screening Branch (procedure) [code = 684938995131515] Future Scheduled 2011 Flexible fiberoptic Univ ersity of Test 00:00:00 sigmoidoscopy [place] [facility] (procedure) [code = Branch 32017063] Future Scheduled 2011 Screening for occult Uni versity of Test 00:00:00 blood in feces [place] [facility] (procedure) [code = Branch 944672545] Future Scheduled 2011 Stool DNA-based Universi ty of Test 00:00:00 colorectal cancer [facility] screening Branch (procedure) [code = 148975134092175] Future Scheduled 2011 Flexible fiberoptic Univ ersity of Test 00:00:00 sigmoidoscopy [place] [facility] (procedure) [code = Branch 42059821] Future Scheduled 2011 Screening for occult Uni versity of Test 00:00:00 blood in feces [facility] (procedure) [code = Branch 444775436] Future Scheduled 2011 Stool DNA-based Universi ty of Test 00:00:00 colorectal cancer [facility] screening Branch (procedure) [code = 778536099522929] Future Scheduled 2011 Flexible fiberoptic Univ ersity of Test 00:00:00 sigmoidoscopy [place] [facility] (procedure) [code = Branch 55374064] Future Scheduled 2011 Screening for occult Uni versity of Test 00:00:00 blood in feces [facility] (procedure) [code = Branch 403652797] Future Scheduled 2011 Stool DNA-based Universi ty of Test 00:00:00 colorectal cancer [facility] screening Branch (procedure) [code = 278200790062604] Future Scheduled 2011 Flexible fiberoptic Univ ersity of Test 00:00:00 sigmoidoscopy [facility] (procedure) [code = Branch 03468067] Future Scheduled 1979 Diabetic foot University of Test 00:00:00 examination [place] [facility] (regime/therapy) Branch [code = 252275247] Future Scheduled 1979 Diabetic foot University of Test 00:00:00 examination [place] [facility] (regime/therapy) Branch [code = 939675191] Future Scheduled 1979 Diabetic foot University of Test 00:00:00 examination [place] [facility] (regime/therapy) Branch [code = 653489750] Future Scheduled 1979 Diabetic foot University of Test 00:00:00 examination [place] [facility] (regime/therapy) Branch [code = 183531337] Future Scheduled 1966 PNEUMOCOCCAL 0-64 Univer sity of Test 00:00:00 YEARS COMBINED [place] [facility] SERIES (1 of 3 - Branch PCV13) [code = PNEUMOCOCCAL 0-64 YEARS COMBINED SERIES (1 of 3 - PCV13)] Future Scheduled 1966 PNEUMOCOCCAL 0-64 Univer sity of Test 00:00:00 YEARS COMBINED [place] [facility] SERIES (1 of 3 - Branch PCV13) [code = PNEUMOCOCCAL 0-64 YEARS COMBINED SERIES (1 of 3 - PCV13)] Future Scheduled 1966 PNEUMOCOCCAL 0-64 Univer sity of Test 00:00:00 YEARS COMBINED [place] [facility] SERIES (1 of 3 - Branch PCV13) [code = PNEUMOCOCCAL 0-64 YEARS COMBINED SERIES (1 of 3 - PCV13)] Future Scheduled 1966 PNEUMOCOCCAL 0-64 Univer sity of Test 00:00:00 YEARS COMBINED [place] [facility] SERIES (1 of 3 - Branch PCV13) [code = PNEUMOCOCCAL 0-64 YEARS COMBINED SERIES (1 of 3 - PCV13)] Future Scheduled SURGICAL PATHOLOGY Release Upon Unive rsity of Test EXAM [code = 97931] Ordering for 1 [place] [facility] Occurrences Branch starting 03/29/2021 Future Scheduled COVID-19 (ID NOW Univers ity of Test RAPID TESTING) [code Sailaja simon = 64142-6] Branch Encounters Start End Encounter Admission Attending Care Care Encounter Source Date/Time Date/Time Type Type Clinicians Facility Department ID 2022-12-19 Emergency X [facility] [id number] Univers 04:14:24 ity of [facility] 2022-08-20 Emergency [facility] [id number] Univers 13:32:03 ity of [facility] 2022-06-30 Outpatient R [facility] [id number] Univers 10:18:42 BRYCERAFFAELE [facility] ity of [facility] 2021-09-24 Emergency [facility] [id number] Univers 01:29:29 ity of [facility] 2021-09-23 Emergency [facility] [id number] Univers 07:21:27 ity of [facility] 2021-09-23 Emergency [facility] [id number] Univers 04:05:28 ity of [facility] 2021-09-23 Emergency [facility] [id number] Univers 00:53:47 ity of [facility] 2021-09-22 Emergency [facility] [id number] Univers 16:35:08 ity of [facility] 2021-09-22 [facility] [id number] Univers 15:24:31 FAHAD ity of [facility] 2021-09-22 Emergency [facility] [id number] Univers 13:38:59 ity of [facility] 2021-09-22 [facility] [id number] Univers 12:37:55 FAHAD ity of [facility] 2021-09-22 Emergency [facility] [id number] Univers 11:56:46 ity of [facility] 2021-09-22 Emergency [facility] [id number] Univers 09:56:23 ity of [facility] 2021-09-22 Outpatient R ALEXANDRO [facility] GIKareem [id number] Univers 05:18:18 FERNANDA ity of [facility] 2021-09-22 Emergency [facility] [id number] Univers 04:36:08 ity of [facility] 2021-09-21 Emergency [facility] [id number] Univers 22:11:33 ity of [facility] 2021-09-21 Emergency [facility] [id number] Univers 21:42:27 ity of [facility] 2021-09-21 Emergency [facility] [id number] Univers 19:06:20 ity of [facility] 2021-09-21 Emergency [facility] [id number] Univers 13:04:31 ity of [facility] 2021-09-21 Emergency [facility] [id number] Univers 00:13:30 ity of [facility] 2021-09-19 Emergency [facility] [id number] Univers 22:45:26 ity of [facility] 2021-09-19 Inpatient ANDREI AARON [facility] JOSE DANIEL [id number] Univers 19:17:51 ity of [facility] 2021-09-19 Emergency [facility] [id number] Univers 15:57:32 ity [facility] 2023-02-05 2023-02-05 Outpatient Kathya PEREZ [facility] [id number] Univers 09:20:00 09:20:00 AMANDA [facility] [place] 2023-01-17 2023-01-17 [facility] [id number] Univers 22:30:00 23:15:00 ANUPAMA [facility] [place] 2023-01-17 2023-01-17 [facility] [id number] Univers 22:30:00 23:15:00 Anupama Salomon [place] [id number] [facility] [id number] [facility] [id number] [place] [id number] Branch 2023-01-15 2023-01-15 Outpatient Kathya PEREZ [facility] [id number] Univers 09:40:00 09:40:00 AMANDA [facility] 2023-01-13 2023-01-13 Emergency [facility] ERT [id number] Univers 13:04:00 16:34:00 PATRICIA [facility] 2023-01-13 2023-01-13 Emergency [facility] 1.2.840.114 1 [id number] Univers 13:04:00 16:34:00 Patricia MENA 350.1.13.10 i ty of [facility] 4.2.7.2.686 [place] [phone] [facility] [address] [place] 2023-01-07 2023-01-07 Load Dispatcher Local Shreyas, Chinedu Lab Main [facility] 1.2.8 40.114 [id number] Univers 11:45:00 12:00:00 Visit Amanda Perez 350.1.13.10 ity of [facility] 4.2.7.2.686 [place] [phone] Ky dical NAL [address] [facility] 2023-01-07 2023-01-07 Outpatient R CHRIS [facility] [id number] Univers 11:45:00 11:45:[facility] 2023-01-07 Patient [facility], [facility] 1.2.840.114 [id number] Univers 00:00:00 00:00:00 Secure Msg Kirk [place] 350.1.13.10 ity of [facility] 4.2.7.2.686 [place] [phone] Ky dicwa NAL [address] [facility] 2023-01-06 2023-01-06 Outpatient R CHRIS [facility] [id number] Univers 15:40:00 16:36:07 [facility] 2023-01-06 2023-01-06 Office [facility] 1.2.840.114 [id number] Univers 15:40:00 16:36:07 Visit [facility] 350.1.13.10 ity of [facility] 4.2.7.2.686 [place] as PAUL?BLEA [phone] Ky dical KNEY [address] [place] MEDICAL OFFICE BUILDING 2023-01-01 2023-01-01 Transition DANIA Galvan 1.2.840.114 [id number] Univers 00:00:00 00:00:00 of Care Lola MCCLELLAND 350.1.13.10 ity of [place] 4.2.7.2.686 [place] [phone] [facility] [address] 2022-12-31 2022-12-31 Outpatient R FERN [facility] [id number] Univers 14:00:00 14:00:00 [facility] 2022-12-30 2022-12-31 Inpatient X TITUS [facility] KAYKAY [id number] Univers 19:54:00 13:00:00 MK itsarahi [facility] 2022-12-30 2022-12-31 Hospital Bryon Metcalf [facility] 1.2.840.1 14 [id number] Univers 19:54:00 13:00:00 Encounter Shad العلي 350.1.13.10 ity of Mk Qureshi [place] 4.2.7.2.686 [facility] [phone] [facility] [address] [place] 2022-12-31 2022-12-31 Telephone [facility] 1.2.840.114 10 [id number] Univers 00:00:00 00:00:00 [facility] 350.1.13.10 it y of [facility] 4.2.7.2.686 Casey as PAUL?BLEA [phone] [facility] [address] MEDICAL OFFICE [facility] 2022-12-30 2022-12-30 Kaylee Crespo [facility] 1.2.840.114 1 [id number] Univers 19:30:00 19:50:00 Visit Unknown, Attending HEALTH 350.1.13.10 ity of [place] 4.2.7.2.686 Casye as PAUL?BLEA [phone] [facility] [address] MEDICAL OFFICE [facility] 2022-12-30 2022-12-30 Outpatient [facility] [id number] Univers 19:30:00 19:30:00 KAYLEE sarahi [facility] 2022-12-25 2022-12-25 [facility] 1.2.840.114 [id number] Univers 18:00:00 23:59:00 Encounter Warner MENA 350.1.13.10 ity of [place] 4.2.7.2.686 [place] [facility] [phone] [facility] [address] 2022-12-25 2022-12-25 Outpatient R KERRY [facility] [id number] Univers 15:30:09 17:59:00 KIRK karlay o f [facility] 2022-12-22 2022-12-22 Outpatient R FLIP, [facility] [id number] Univers 13:30:00 14:18:59 WARNER itsarahi of [facility] 2022-12-22 2022-12-22 Office Qu[facility] 1.2.840.114 [id number] Univers 13:30:00 14:18:59 Visit Warner HEALTH 350.1.13.10 it y of [place] 4.2.7.2.686 Casey as PAUL?BLEA [phone] [place] dical [address] OFFICE [facility] 2022-12-22 2022-12-22 Patient [facility] 1.2.840.114 [id number] Univers 00:00:00 00:00:00 Secure Msg Amanda HEALTH 350.1.13.10 ity of [place] 4.2.7.2.686 Casey as PAUL?BLEA [phone] [place] dical KNEY [address] [place] [address] OFFICE [facility] 2022-12-22 2022-12-22 Patient [facility] 1.2.840.114 [id number] Univers 00:00:00 00:00:00 Secure Msg Jaycee M HEALTH 350.1.13.10 ity of [place] 4.2.7.2.686 Casey as PAUL?BLEA [phone] [address] OFFICE [facility] 2022-12-17 2022-12-17 Outpatient R KERRY, [facility] [id number] Univers 09:00:00 09:04:49 GINNYDUY karlay o f [facility] 2022-12-17 2022-12-17 Office [facility] 1.2.840.114 [id number] Univers 09:00:00 09:04:49 Visit Kirk [facility] 350.1.13.10 ity of [place] 4.2.7.2.686 [place] [phone] Ky dical NAL [address] [facility] 2022-12-15 2022-12-15 Emergency X PARADISE, [facility] ERT [id number] Univers 21:14:00 23:46:00 GILESLI ity [facility] 2022-12-15 2022-12-15 Emergency Counts include 234 beds at the [facility] 1.2.318.278 [id number] Univers 21:14:00 23:46:00 Sera MENA 350.1.13.10 ity of [place] 4.2.7.2.686 [facility] [phone] [address] 2022-12-12 2022-12-12 Telephone [facility] 1.2.001.930 [id number] Univers 00:00:00 00:00:00 Amanda HEALTH 350.1.13.10 ity of [place] 4.2.7.2.686 Casey as PAUL?BLEA [phone] [facility] [address] MEDICAL OFFICE [facility] 2022-12-04 2022-12-04 Outpatient R [facility] [id number] Univers 14:40:00 15:32:22 AMANDA ity [facility] 2022-12-04 2022-12-04 Office [facility] 1.2.840.114 [id number] Univers 14:40:00 15:32:22 Visit [facility] 350.1.13.10 ity of [place] 4.2.7.2.686 Casey as PAUL?BLEA [phone] [facility] [address] MEDICAL OFFICE [facility] 2022-12-03 2022-12-03 Emergency X [facility] ERT [id number] Univers 19:09:00 23:06:00 SERA ity [facility] 2022-12-03 2022-12-03 Emergency Counts include 234 beds at the [facility] 1.2.387.787 [id number] Univers 19:09:00 23:06:00 Sera MENA 350.1.13.10 ity of [place] 4.2.7.2.686 [facility] [phone] [address] 2022-11-27 2022-11-27 Refill [facility] 1.2.840.114 [id number] Univers 00:00:00 00:00:00 Amanda HEALTH 350.1.13.10 ity of [place] 4.2.7.2.686 Casey as PAUL?BLEA [phone] Me jae GOMES [address] [place] [address] MEDICAL OFFICE [facility] 2022-11-26 2022-11-26 Emergency X [facility] ERT [id number] Univers 17:24:00 21:13:00 ANUPAMA ity [facility] 2022-11-26 2022-11-26 Emergency [facility] 1.2.107.501 [id number] Univers 17:24:00 21:13:00 Anupama S [place] 350.1.13.10 i ty of [place] 4.2.7.2.686 [place] [phone] [address] 2022-11-26 2022-11-26 Outpatient R ARIE [facility] [id number] Univers 09:00:00 09:00:00 [facility] 2022-11-26 2022-11-26 Outpatient R [facility]E [facility] [id number] Univers 09:00:00 09:00:00 [facility] 2022-11-26 2022-11-26 Outpatient R [facility] [id number] Univers 09:00:00 09:00:00 [facility] 2022-11-24 2022-11-24 Refill [facility] 1.2.840.114 [id number] Univers 00:00:00 00:00:00 [facility] 350.1.13.10 ity of [place] 4.2.7.2.686 Casey as PAUL?BLEA [phone] [place] jae GOMES [address] [place] [address] MEDICAL [facility] 2022-11-24 2022-11-24 Patient [facility] 1.2.840.114 [id number] Univers 00:00:00 00:00:00 Secure Msg Amanda HEALTH 350.1.13.10 ity of [place] 4.2.7.2.686 Casey as PAUL?BLEA [phone] Me dical KNEY [address] [place] MEDICAL OFFICE BUILDING 2022-11-21 2022-11-21 Patient Chris [facility] 1.2.840.114 [id number] Univers 00:00:00 00:00:00 Secure Msg Amanda [place] 350.1.13.10 ity of [place] 4.2.7.2.686 [place] [phone] Ky jae MARTINEZ [address] [place] [address] 2022-11-19 2022-11-19 Refill [facility] 1.2.840.114 [id number] Univers 00:00:00 00:00:00 Amanda HEALTH 350.1.13.10 ity of [place] 4.2.7.2.686 Casey as PAUL?BLEA [phone] Ky jae GOMES [address] [place] [address] OFFICE [facility] 2022-11-18 2022-11-18 Patient Katie [facility] 1.2.599.289 [id number] Univers 00:00:00 00:00:00 Secure Msg Yahaira HEALTH 350.1.13.10 ity of [place] 4.2.7.2.686 Casey as PAUL?BLEA [phone] [facility] [address] [facility] OFFICE [facility] 2022-11-18 2022-11-18 Patient Arie [facility] 1.2.840.114 [id number] Univers 00:00:00 00:00:00 Secure Msg [facility] HEALTH 350.1.13.10 ity of [place] 4.2.7.2.686 [place] [phone] [place] [address] [address] OFFICE BUILDING 2022-11-15 2022-11-15 Patient [facility] 1.2.338.093 [id number] Univers 00:00:00 00:00:00 Secure Msg Yahaira H HEALTH 350.1.13.10 ity of [place] 4.2.7.2.686 Casey as PAUL?BLEA [phone] [facility] [address] [facility] OFFICE BUILDING 2022-11-14 2022-11-14 Patient Kerry [facility] 1.2.840.114 [id number] Univers 00:00:00 00:00:00 Secure Msg Kirk MENA 350.1.13.10 ity of [facility] 4.2.7.2.686 [place] [phone] Ky dicfrankie MARTINEZ [address] [facility] 2022-11-14 2022-11-14 Telephone Wilson [facility] 1.2.840.114 [id number] Univers 00:00:00 00:00:00 Yahaira H HEALTH 350.1.13.10 it y [facility] 4.2.7.2.686 Casey as PAUL?BLEA [phone] Ky dicfrankie GOMES [address] MEDICAL OFFICE BUILDING 2022-11-13 2022-11-13 Patient [facility] 1.2.840.114 [id number] Univers 00:00:00 00:00:00 Secure Msg Amanda HEALTH 350.1.13.10 ity of [facility] 4.2.7.2.686 Casey as PAUL?BLEA [phone] Ky dicfrankie GOMES [address] [place] MEDICAL OFFICE [facility] 2022-11-12 2022-11-12 Patient [facility] 1.2.840.114 [id number] Univers 00:00:00 00:00:00 Secure Msg Amanda HEALTH 350.1.13.10 ity of [facility] 4.2.7.2.686 Casey as PAUL?BLEA [phone] Ky dicfrankie GOMES [address] [place] MEDICAL OFFICE [facility] 2022-11-11 2022-11-11 Hospital IS[facility] 1.2.840.114 [id number] Univers 09:29:00 23:59:00 Encounter Shefali Cristina 350.1.13.10 ity of [facility] 4.2.7.2.686 Casey as [phone] [address] 2022-11-11 2022-11-11 Outpatient R DOMITILA MSPRISCILLA ACO [id number] Univers 00:00:00 23:59:00 SHEFALI adkins [facility] 2022-11-10 2022-11-10 Load Dispatcher Local Chinedu Pritchett Lab Main [facility] 1.2.8 40.114 [id number] Univers 09:00:00 09:15:00 Visit Amanda Perez 350.1.13.10 ity of [facility] 4.2.7.2.686 [place] [facility] [phone] Ky jae JUAN [address] BUILDING 2022-11-10 2022-11-10 Outpatient R CHRIS [facility] [id number] Univers 09:00:00 09:00:00 AMANDA ity of [facility] 2022-11-10 2022-11-10 Telephone Katie [facility] 1.2.840.114 [id number] Univers 00:00:00 00:00:00 Yahaira [facility] 350.1.13.10 it y of [place] 4.2.7.2.686 Casey as PAUL?BLEA [phone] Ky dicfrankie COLEENKATHIE [address] MEDICAL OFFICE BUILDING 2022-11-10 2022-11-10 Orders Doctor RASHAD 1.2.840.114 [id number] Univers 00:00:00 00:00:00 Only Unassigned, YONY 350.1.13.10 ity of [place] [facility] 4.2.7.2.686 Casey as [phone] [facility] [address] [place] 2022-11-07 2022-11-07 Hospital [facility] 1.2.840.114 [id number] Univers 16:58:50 23:59:00 Encounter Amanda MENA 350.1.13.10 ity of [place] 4.2.7.2.686 [place] [phone] [facility] [address] [place] 2022-11-07 2022-11-07 Office [facility] 1.2.840.114 [id number] Univers 16:20:00 16:34:59 Visit Amanda [facility] 350.1.13.10 ity of [place] 4.2.7.2.686 Casey as PAUL?BLEA [phone] Ky alyfrankie HORNE [address] MEDICAL OFFICE BUILDING 2022-11-06 2022-11-07 Emergency X [facility] ERT [id number] Univers 23:27:00 03:20:00 SERA ity [facility] 2022-11-06 2022-11-07 [facility] 1.2.246.639 [id number] Univers 23:27:00 03:20:00 Wafito MENA 350.1.13.10 ity of [facility] 4.2.7.2.686 [place] [phone] [facility] [address] [place] 2022-11-07 2022-11-07 Outpatient [facility] [id number] Univers 00:00:00 00:00:00 AMANDA itsarahi [facility] 2022-11-06 2022-11-06 Patient [facility] 1.2.840.114 [id number] Univers 00:00:00 00:00:00 Secure Msg Amanda HEALTH 350.1.13.10 ity of [facility] 4.2.7.2.686 Casey as PAUL?BLEA [phone] [address] OFFICE [facility] 2022-11-06 2022-11-06 Letter [facility] 1.2.840.114 [id number] Univers 00:00:00 00:00:00 (Out) Amanda HEALTH 350.1.13.10 ity of [place] 4.2.7.2.686 Casey as PAUL?BLEA [phone] [address] OFFICE [facility] 2022-11-03 2022-11-03 Load Dispatcher Local Shreyas, Chinedu Lab Main [facility] 1.2.8 40.114 [id number] Univers 16:15:00 16:30:00 Visit Amanda Perez 350.1.13.10 ity of [facility] 4.2.7.2.686 [place] [facility] [phone] [address] 2022-11-03 2022-11-03 Outpatient R [facility] [id number] Univers 14:40:00 15:40:43 [facility] 2022-11-03 2022-11-03 Office [facility] 1.2.840.114 [id number] Univers 14:40:00 15:40:43 Visit [facility] 350.1.13.10 ity of [place] 4.2.7.2.686 Casey as PAUL?BLEA [phone] [address] OFFICE [facility] 2022-11-03 2022-11-03 Xiao [facility]NEW [facility] 1.2.840.114 [id number] Univers 00:00:00 00:00:00 (Out) Amanda HEALTH 350.1.13.10 ity of [place] 4.2.7.2.686 Casey as PAUL?BLEA [phone] Ky dical KNEY [address] MEDICAL OFFICE [facility] 2022-10-28 2022-10-28 Load Dispatcher Local Shreyas, Chinedu Lab Main [facility] 1.2.8 40.114 [id number] Univers 13:45:00 14:00:00 Visit Ty Sarah [place] 350.1.13.10 ity of [place] 4.2.7.2.686 [place] [id number] Ky dical [facility] [address] [facility] 2022-10-28 2022-10-28 Outpatient R TY [facility] [id number] Univers 13:45:00 13:45:00 SARAH [facility] 2022-10-28 2022-10-28 Outpatient [facility] [id number] Univers 09:40:00 09:40:00 [facility] 2022-10-28 2022-10-28 Orders Doctor RASHAD 1.2.840.114 [id number] Univers 00:00:00 00:00:00 Only Unassigned, YONY 350.1.13.10 ity of [place] [facility] 4.2.7.2.686 Casey as [phone] [address] 2022-10-27 2022-10-27 Out[facility] [id number] Univers 08:30:00 08:30:00 [facility] 2022-[facility]-20 2022-10-20 Outpatient R [facility] [id number] Univers 13:30:00 13:30:00 ity [facility] 2022-10-18 2022-10-18 Refill [facility] 1.2.840.114 [id number] Univers 00:00:00 00:00:00 Deyanira A HEALTH 350.1.13.10 i ty of [place] 4.2.7.2.686 Casey as PAUL?BLEA [phone] Ky jae GOMES [address] MEDICAL OFFICE BUILDING 2022-10-15 2022-10-15 Telephone Ty [facility] 1.2.840.114 [id number] Univers 00:00:00 00:00:00 Sarah CURRAN 350.1.13.10 ity of [place] 4.2.7.2.686 [place] [phone] [facility] [place] [address] [place] [facility] 2022-10-13 2022-10-13 Outpatient R CHRIS [facility] [id number] Univers 09:40:00 09:40:00 [facility] 2022-10-10 2022-10-10 Transition DANIA Stewart 1.2.840.114 [id number] Univers 00:00:00 00:00:00 of Care Marj MCCLELLAND 350.1.13.10 i ty of [place] 4.2.7.2.686 [place] [phone] [facility] [address] 2022-10-07 2022-10-09 Outpatient X DARNELL SOTOMAD [facility] JOSE DANIEL [id number] Univers 15:30:00 13:52:00 ELIAS SOTOHAMMAD [facility] 2022-10-07 2022-10-07 Outpatient R YASH [facility] [id number] Univers 14:45:00 15:26:49 GEOVANI [facility] 2022-10-07 2022-10-07 Nurse Nurse, [facility] 1.2.840.114 [id number] Univers 14:45:00 15:05:00 Visit [facility] HEALTH 350.1.13.10 ity of [place] 4.2.7.2.686 Casey as PAUL?BLEA [phone] Ky jae GOMES [address] MEDICAL OFFICE BUILDING 2022-10-01 2022-10-01 Load Dispatcher Local Lab, Fernando Agee [facility] 1.2.840.1 14 [id number] Univers 09:00:00 09:15:00 Visit Amanda Perez [facility] 350.1.13.10 ity of [place] 4.2.7.2.686 Casey as PAUL?BLEA [phone] Ky jae GOMES [address] MEDICAL OFFICE [facility] 2022-10-01 2022-10-01 Outpatient R CHRIS [facility] [id number] Univers 09:00:00 08:53:36 [facility] 2022-09-30 2022-09-30 Refflores Herndon [facility] 1.2.840.114 [id number] Univers 00:00:00 00:00:00 [facility] 350.1.13.10 it y of [place] 4.2.7.2.686 Casey as PAUL?BLEA [phone] Ky jae [facility] [address] MEDICAL OFFICE [facility] 2022-09-29 2022-09-29 Outpatient R CHRIS [facility] [id number] Univers 09:20:00 10:14:31 [facility] 2022-09-29 2022-09-29 Office [facility] 1.2.840.114 [id number] Univers 09:20:00 10:14:31 Visit [facility] 350.1.13.10 ity of [place] 4.2.7.2.686 Casey as PAUL?BLEA [id number] [facility] [address] [facility] OFFICE [facility] 2022-09-24 2022-09-24 Transition ABBIE StewartCece 1.2.840.114 [id number] Univers 00:00:00 00:00:00 of Care Marj MCCLELLAND 350.1.13.10 i ty of [place] 4.2.7.2.686 [place] [phone] [facility] [address] [place] 2022-09-22 2022-09-23 Outpatient X SEVERIANO [facility] KAYKAY [id number] Univers 13:43:00 16:26:00 SHAD [facility] 2022-09-22 2022-09-23 Emergency Jean Ramírez [facility] 1.2.840.1 14 [id number] Univers 13:43:00 16:26:00 Shad العلي 350.1.13.10 ity of [facility] 4.2.7.2.686 [place] CAMPUS [phone] [place] [address] [place] 2022-09-23 2022-09-23 Refill Jose [facility] 1.2.840.114 [id number] Univers 00:00:00 00:00:00 Deyanira A HEALTH 350.1.13.10 i ty of [place] 4.2.7.2.686 Casey as PAUL?BLEA [phone] [address] MEDICAL OFFICE [facility] 2022-09-22 2022-09-22 Load Dispatcher Local Lab, [facility] 1.2.840.1 14 [id number] Univers 08:45:00 08:48:54 Visit [facility] 350.1.13.10 ity of [place] 4.2.7.2.686 Casey as PAUL?BLEA [phone] [facility] [address] [facility] OFFICE [facility] 2022-09-22 2022-09-22 Outpatient R [facility] [id number] Univers 08:00:00 08:39:38 AMANDA ity [facility] 2022-09-22 2022-09-22 Office [facility] 1.2.840.114 [id number] Univers 08:00:00 08:39:38 Visit [facility] 350.1.13.10 ity of [place] 4.2.7.2.686 Casey as PAUL?BLEA [phone] [address] OFFICE [facility] 2022-09-19 2022-09-19 Load Dispatcher Local Testing, [facility] Pulmonary Func tion [facility]ERSIT 1.2.840.114 [id number] Univers 08:00:00 09:17:58 Visit Pk Olea HEALTH 350.1.13.10 ity of [facility] [place]2.[place] [phone] [address] 2022-09-19 2022-09-19 Outpatient R PK OLEA [facility] 10 [id number] Univers 08:00:00 08:00:00 PK OLEA i ty of [facility] 2022-09-19 2022-09-19 Orders VAMSI [place] 1.2.207.327 [id number] Univers 00:00:00 00:00:00 Only Shiwan Y HEALTH 350.1.13.10 i ty [place] [phone] [facility] [address] 2022-09-16 2022-09-16 Refill Kerry [facility] 1.2.840.114 [id number] Univers 00:00:00 00:00:00 Soraidarodger [place] 350.1.13.10 it[place]7.2.[place] [facility] [phone] [place]ical [place] [address] [facility] 2022-09-16 2022-09-16 Refill Doctor [place] 1.2.840.114 [id number] Univers 00:00:00 00:00:00 Unassigned, HEALTH 350.1.13.10 ity of [place] 4.2.7.2.686 Casey as PAUL?BLEA [phone] [address] MEDICAL OFFICE BUILDING 2022-09-16 2022-09-16 Refill Jose [facility] 1.2.840.114 [id number] Univers 00:00:00 00:00:00 Deyanira A HEALTH 350.1.13.10 i ty of [place] 4.2.7.2.686 Casey as PAUL?BLEA [phone] [address] MEDICAL OFFICE BUILDING 2022-09-16 2022-09-16 Refill Ty [facility] 1.2.154.805 [id number] Univers 00:00:00 00:00:00 Sarah MULTISPEC 350.1.13.10 [place]2.[place] [phone] [facility] AND [place] [address] [facility] 2022-09-16 2022-09-16 Patient Chris, [facility] 1.2.840.114 [id number] Univers 00:00:00 00:00:00 Secure Msg Amanda HEALTH 350.1.13.10 ity of [place] 4.2.7.2.686 Casey as PAUL?BLEA [phone] [address] MEDICAL OFFICE BUILDING 2022-09-16 2022-09-16 Refill Arie [facility] 1.2.840.114 [id number] Univers 00:00:00 00:00:00 [facility] 350.1.13.10 [place] [phone] [facility] [address] OFFICE BUILDING 2022-09-16 2022-09-16 Orders Doctor RASHAD 1.2.840.114 [id number] Univers 00:00:00 00:00:00 Only Unassigned, YONY 350.1.13.10 ity of [place] [facility] 4.2.7.2.686 Casey as [phone] [facility] [address] 2022-09-15 2022-09-15 Load Dispatcher Local 2, Adc Lab [facility] 1.2.840.114 [id number] Univers 11:45:00 12:08:28 Visit Pk [place] 350.1.13.10 [facility] 4.2.7.2.[place] [phone] [place] dical [place] [address] [facility] 2022-09-15 2022-09-15 Outpatient R PK OLEA [facility] 10 [id number] Univers 11:00:00 11:24:54 PK OLEA i ty of [facility] 2022-09-15 2022-09-15 Office [facility] 1.2.840.114 [id number] Univers 11:00:00 11:24:54 Visit Pk MENA 350.1.13.10 i ty of [place] 4.2.7.2.686 [place] [phone] [place] dical NAL 085 [facility] 2022-09-15 2022-09-15 Telephone Delroy [facility] 1.2.943.589 [id number] Univers 00:00:00 00:00:00 Formerly [facility] 350.1.13.10 it y of [place] 4.2.7.2.686 Casey as PAUL?BLEA [phone] [place] dical KNEY [address] [facility] OFFICE BUILDING 2022-09-12 2022-09-12 Outpatient R CHRIS [facility] [id number] Univers 15:20:00 15:50:52 [facility] 2022-09-12 2022-09-12 Office [facility] 1.2.840.114 [id number] Univers 15:20:00 15:50:52 Visit [facility] 350.1.13.10 ity of [place] 4.2.7.2.686 Casey as PAUL?BLEA [phone] [facility] COLEEN [address] [facility] OFFICE [facility] 2022-09-11 2022-09-11 Outpatient R JENNI [facility] [id number] Univers 12:30:00 12:30:00 [facility] 2022-09-09 2022-09-09 Outpatient [facility] [id number] Univers 08:00:00 08:20:35 [facility] 2022-09-09 2022-09-09 Load Dispatcher Local Lab, Ang [facility] 1.2.840.1 14 [id number] Univers 08:00:00 08:15:00 Visit [facility] 350.1.13.10 ity of [place] 4.2.7.2.686 Casey as PAUL?BLEA [id number] [facility] COLEEN [address] [facility] OFFICE [facility] 2022-09-08 2022-09-08 Outpatient R [facility] [id number] Univers 15:20:00 16:01:16 [facility] 2022-09-08 2022-09-08 Office [facility] 1.2.840.114 [id number] Univers 15:20:00 16:01:16 Visit [facility] 350.1.13.10 ity of [place] 4.2.7.2.686 Casey as PAUL?BLEA [phone] [facility] COLEEN [address] [facility] OFFICE [facility] 2022-09-06 2022-09-06 [facility] 1.2.840.114 [id number] Univers 17:54:08 23:59:00 Encounter Kaylee HEALTH 350.1.13.10 ity of [place] 4.2.7.2.686 Casey as PAUL?BLEA [id number] [facility] ELISEO [address] MEDICAL OFFICE [facility] 2022-09-06 2022-09-06 Outpatient R CLIVE [facility] [id number] Univers 17:20:00 18:35:12 KAYLEE adkins [facility] 2022-09-06 2022-09-06 Urgent Kaylee Duffy [facility] 1.2.840.114 [id number] Univers 17:20:00 18:35:12 Care Unknown, Attending HEALTH 350.1.13.10 ity [facility] 4.2.7.2.686 Casey as PAUL?BLEA [phone] Ky jae [facility] [address] MEDICAL OFFICE [facility] 2022-09-04 2022-09-04 Outpatient R PK OLEA [facility] 10 [id number] Univers 13:00:00 13:00:00 PK OLEA i [facility] 2022-09-02 2022-09-02 Load Dispatcher Local Lab, [facility] 1.2.840.1 14 [id number] Univers 09:30:00 09:45:00 Visit Yahaira Wilson [facility] 350.1.13.10 ity of [place] 4.2.7.2.686 Casey as PAUL?BLEA [phone] [facility] [address] [facility] OFFICE [facility] 2022-09-02 2022-09-02 Outpatient R [facility] [id number] Univers 09:30:00 09:30:00 YAHAIRA sarahi [facility] 2022-09-01 2022-09-02 Emergency X [facility] ERT [id number] Univers 21:20:00 01:01:00 SOPHIE adkins [facility] 2022-09-01 2022-09-02 Emergency [facility] 1.2.840.114 [id number] Univers 21:20:00 01:01:00 Sophie MENA 350.1.13.10 ity of [facility] 4.2.7.2.686 [place] [facility] [phone] [address] 2022-09-02 2022-09-02 Telephone [facility] 1.2.563.523 [id number] Univers 00:00:00 00:00:00 Kirk MENA 350.1.13.10 ity of [place] 4.2.7.2.686 [place] [phone] Ky dical NAL 059 [facility] 2022-09-01 2022-09-01 Telephone Isma [facility] 1.2.839.970 [id number] Univers 00:00:00 00:00:00 Shiwan [place] 350.1.13.10 i ty of [place] 4.2.7.2.686 [place] [phone] Ky dical NAL 085 [facility] 2022-08-29 2022-08-29 Outpatient R [facility] [id number] Univers 14:00:00 15:00:26 YAHAIRA ity [facility] 2022-08-29 2022-08-29 Office [facility] 1.2.072.349 [id number] Univers 14:00:00 15:00:26 Visit [facility] 350.1.13.10 it y of [place] 4.2.7.2.686 Casey as PAUL?BLEA [phone] Ky dicfrankie GOMES [address] [facility] OFFICE [facility] 2022-08-29 2022-08-29 Orders Doctor RASHAD 1.2.840.114 [id number] Univers 00:00:00 00:00:00 Only Unassigned, YONY 350.1.13.10 ity of [place] [facility] 4.2.7.2.686 Casey as [id number] [address] 2022-08-28 2022-08-28 Patient Giuliano [facility] 1.2.840.114 [id number] Univers 00:00:00 00:00:00 Secure Msg [facility] 350.1.13.10 ity of [place] 4.2.7.2.686 Casey as PAUL?BLEA [phone] Ky dical ELISEO [address] [facility] OFFICE [facility] 2022-08-28 2022-08-28 Telephone Arie [facility] 1.2.840.114 [id number] Univers 00:00:00 00:00:00 [facility] 350.1.13.10 ity of [place] 4.2.7.2.686 [place] [phone] [facility] [address] OFFICE BUILDING 2022-08-27 2022-08-27 Outpatient R [facility] [id number] Univers 12:30:00 12:30:00 DEYANIRA acostasarahi [facility] 2022-08-26 2022-08-26 Outpatient R ARIE [facility] [id number] Univers 07:25:24 23:59:00 ARIE [facility] 2022-08-26 2022-08-26 [facility] 1.2.840.114 [id number] Univers 07:25:24 23:59:00 Encounter [facility] 350.1.13.10 ity [facility] 4.2.7.2.686 [place] [phone] [facility] [address] 2022-08-24 2022-08-24 Emergency X MORRICAL, [facility] ERT [id number] Univers 18:57:00 21:55:00 DANIEL adkins [facility] 2022-08-24 2022-08-24 Emergency MorricalNEW MEXICO [facility] 1.2.840.114 [id number] Univers 18:57:00 21:55:00 Daniel MENA 350.1.13.10 ity [facility] 4.2.7.2.686 [place] [phone] [facility] [address] 2022-08-24 2022-08-24 Outpatient R [facility] [id number] Univers 18:20:00 18:36:04 [facility]ALTHI ity [facility] 2022-08-24 2022-08-24 Urgent [facility] 1.2.328.496 [id number] Univers 18:20:00 18:36:04 [facility] 350.1.13.10 it y of [place] 4.2.7.2.686 Casey as PAUL?BLEA [id number] [place] jae [address] MEDICAL OFFICE BUILDING 2022-08-22 2022-08-22 Outpatient R [facility] [id number] Univers 11:00:00 12:30:50 DEYANIRA acostasarahi [facility] 2022-08-22 2022-08-22 Office JoseNEW [facility]EX[facility] 1.2.840.114 [id number] Univers 11:00:00 12:30:50 Visit Deyanira Yang HEALTH 350.1.13.10 i ty of [place] 4.2.7.2.686 Casey as PAUL?BLEA [id number] [address] OFFICE [facility] 2022-08-20 2022-08-20 Laboratory Only, Adc Test [facility] 1.2.840. 114 [id number] Univers 13:45:00 14:00:00 Only Shefali [place] 350.1.13.10 ity of [place] 4.2.7.2.686 [place] CAMPUS [id number] [address] 2022-08-20 2022-08-20 Outpatient R DOMITILA [facility] [id number] Univers 13:45:00 13:45:00 [facility]ALI [facility] 2022-08-19 2022-08-19 Refill JoseNEW [facility]EXICO [facility] 1.2.840.114 [id number] Univers 00:00:00 00:00:00 Deyanira Yang HEALTH 350.1.13.10 i ty of [place] 4.2.7.2.686 Casey as PAUL?BLEA [id number] [address] OFFICE [facility] 2022-08-18 2022-08-18 Telephone A[facility]EX[facility] 1.2.840.114 [id number] Univers 00:00:00 00:00:00 [facility] HEALTH 350.1.13.10 ity of [place] 4.2.7.2.686 [place] [id number] [facility] [address] OFFICE BUILDING 2022-08-18 2022-08-18 Transition DANIA Stewart 1.2.840.114 [id number] Univers 00:00:00 00:00:00 of Care Marj MCKENNAY 350.1.13.10 i ty of [place] 4.2.7.2.686 [place] [phone] [facility] [address] 2022-08-14 2022-08-16 Inpatient [facility] [id number] Univers 18:06:00 16:42:00 SHAD ity of [facility] 2022-08-14 2022-08-16 Hospital Gold [place] [facility] 1.2.840. 114 [id number] Univers 18:06:00 16:42:00 Encounter Sahil Morales 350.1.13.10 ity of [place] Shadmallory [place] 4.2.7.2.686 [facility] [id number] [facility] [address] 2022-08-13 2022-08-13 Refflores CrawfordNEW [facility]EXICO [facility] 1.2.335.205 [id number] Univers 00:00:00 00:00:00 Sarah CURRAN 350.1.13.10 ity of [facility] 4.2.7.2.686 [facility] [id number] [facility] [place] [address] [facility] 2022-08-08 2022-08-08 Patient Jaimie [facility] 1.2.840.114 [id number] Univers 00:00:00 00:00:00 Secure Msg Fatmata SPECIALTY 350.1.13.10 ity of [facility] 4.2.7.2.686 [place] CENTER AT [phone] Ky jae BRUNO 072 [facility] 2022-08-02 2022-08-02 Patient Belkysclay [facility] 1.2.840.114 [id number] Univers 00:00:00 00:00:00 Secure Msg [facility] 350.1.13.10 ity of [place] 4.2.7.2.686 Casey as PAUL?BLEA [phone] Ky jae KATHIE [address] MEDICAL OFFICE BUILDING 2022-08-01 2022-08-01 Letter RASHAD Osman 1.2.840.114 [id number] Univers 00:00:00 00:00:00 (Out) Val BHAKTA 350.1.13.10 it y of HOSPITAL 4.2.7.2.686 Casey as [phone] [facility] [address] 2022-08-01 2022-08-01 Telephone Rashad [facility] 1.2.208.882 [id number] Univers 00:00:00 00:00:00 Jim SPECIALTY 350.1.13.10 ity of [facility] 4.2.7.2.686 Casye as CENTER AT [phone] Ky jae BRUNO [address] [place] [address] 2022-07-31 2022-07-31 Outpatient R WING [facility] [id number] Univers 16:20:00 16:29:27 RIANA [facility] 2022-07-31 2022-07-31 Urgent WingNEW MEXICO [facility] 1.2.840.114 [id number] Univers 16:20:00 16:29:27 Care [facility] 350.1.13.10 it y of [place] 4.2.7.2.686 Casey as PAUL?BLEA [phone] Ky jae GOMES [address] [place] [address] MEDICAL OFFICE [facility] 2022-07-25 2022-07-25 Emergency X PARADISE [facility] ERT [id number] Univers 18:17:00 22:46:00 SERA [facility] 2022-07-25 2022-07-25 Emergency Anupama Anna [facility] 1.2.840.1 14 [id number] Univers 18:17:00 22:46:00 GenovevaSera yarbrough [place] 350.1.13.10 ity of [place] 4.2.7.2.686 [facility] [id number] [address] 2022-07-25 2022-07-25 Urgent CliveNEW MEXICO [facility] 1.2.840.114 [id number] Univers 18:00:00 18:00:00 Care [facility] 350.1.13.10 it y of [place] 4.2.7.2.686 Casey as PAUL?BLEA [id number] Ky jae GOMES [address] [place] [address] MEDICAL OFFICE [facility] 2022-07-25 2022-07-25 Outpatient R CLIVE [facility] [id number] Univers 18:00:00 17:41:37 KAYLEE [facility] 2022-07-24 2022-07-24 Outpatient R BARB [facility] [id number] Univers 16:30:00 16:30:00 DOREEN [facility] 2022-07-16 2022-07-16 Office JoseNEW [facility]EX[facility] 1.2.840.114 [id number] Univers 07:30:00 08:00:00 Visit Deyanira LUCAS 350.1.13.10 i ty of [place] 4.2.7.2.686 Casey as PAUL?BLEA [phone] [facility] [address] MEDICAL OFFICE [facility] 2022-07-16 2022-07-16 Outpatient [facility] [id number] Univers 07:30:00 07:30:00 DEYANIRA adkins [facility] 2022-07-14 2022-07-14 Outpatient R BARB [facility] [id number] Univers 10:45:00 10:45:00 DOREEN [facility] 2022-07-11 2022-07-11 Outpatient [facility] [id number] Univers 10:28:04 23:59:00 [facility] 2022-07-10 2022-07-10 [facility]NEW [facility] 1.2.840.114 [id number] Univers 13:00:00 13:20:[address] [facility] 350.1.13.10 it y of [place] 4.2.7.2.686 Casey as PAUL?BLEA [id number] [facility] [address] MEDICAL OFFICE [facility] 2022-07-10 2022-07-10 Outpatient [facility] [id number] Univers 13:00:00 13:00:00 TESSA ity [facility] 2022-07-09 2022-07-09 Transition DANIA Stewart 1.2.840.114 [id number] Univers 00:00:00 00:00:00 of Care Marj MCCLELLAND 350.1.13.10 i ty of [place] 4.2.7.2.686 [place] [id number] [address] 2022-07-07 2022-07-08 [facility] DARLIN 1.2 .840.114 [id number] Univers 06:29:00 14:42:00 Encounter Jenny Chatterjee 350.1.13.10 ity of [facility] 4.2.7.2.686 Casey as [id number] [facility] [address] 2022-07-07 2022-07-08 Inpatient R [facility]EMIALEX [facility] A [id number] Univers 06:29:00 14:42:00 [facility] 2022-07-08 2022-07-08 Outpatient R HARDEEP [facility] [id number] Univers 12:00:00 12:00:00 MOI ity [facility] 2022-07-07 2022-07-07 Outpatient R [facility] [id number] Univers 18:30:00 18:30:00 ity [facility] 2022-07-07 2022-07-07 [facility] [id number] Univers 18:30:00 18:30:00 [facility] 2022-07-07 2022-07-07 Surgery DARLIN [place] 1.2.840.114 [id number] Univers 07:30:00 09:30:00 [facility] YONY 350.1.13.10 ity [facility] 4.2.7.2.686 Casey as [phone] [facility] [address] 2022-07-05 2022-07-05 Laboratory Only, Adc Test [facility] 1.2.840. 114 [id number] Univers 08:15:00 08:30:00 Only Shefali [place] 350.1.13.10 ity [facility] 4.2.7.2.686 [place] [facility] [phone] [facility] [address] 2022-07-05 2022-07-05 Outpatient R DOMITILA [facility] [id number] Univers 08:15:00 08:15:00 SHEFALI [facility] 2022-07-05 2022-07-05 Orders Doctor KIRKLAND 1.2.840.114 [id number] Univers 00:00:00 00:00:00 Only Unassigned, YONY 350.1.13.10 ity of [facility] 4.2.7.2.686 Casey as [id number] [address] 2022-07-04 2022-07-04 Office Kerry, [facility] 1.2.840.114 [id number] Univers 11:00:00 12:09:05 Visit Kirk MENA 350.1.13.10 ity of [facility] 4.2.7.2.686 [place] PROFESS[place] [id number] Ky dical NAL 9 [facility] 2022-07-04 2022-07-04 Outpatient R KERRY, [facility] [id number] Univers 11:00:00 12:09:05 KIRK car [facility] 2022-07-04 2022-07-04 Outpatient R KERRY, [facility] [id number] Univers 11:00:00 12:09:05 KIRK car [facility] 2022-07-04 2022-07-04 Office Kerry, [facility] 1.2.840.114 [id number] Univers 11:00:00 12:09:05 Visit Kirk MENA 350.1.13.10 ity of [facility] 4.2.7.2.686 [place] PROFESS[place] [id number] Ky dical NAL [address] [place] [address] 2022-07-04 2022-07-04 Outpatient R KERRY, [facility] [id number] Univers 11:00:00 11:00:00 KIRK car [facility] 2022-07-03 2022-07-03 Outpatient R JOSE, [facility] [id number] Univers 07:00:00 07:00:00 DEYANIRA ity [facility] 2022-07-03 2022-07-03 Outpatient R JOSE, [facility] [id number] Univers 07:00:00 07:00:00 DEYANIRA ity [facility] 2022-07-03 2022-07-03 Outpatient R JOSE, [facility] [id number] Univers 07:00:00 07:00:00 DEYANIRA ity [facility] 2022-07-02 2022-07-02 Office Jose, [facility] 1.2.840.114 [id number] Univers 15:30:00 16:34:36 Visit Deyanira Yang HEALTH 350.1.13.10 i ty of [place] 4.2.7.2.686 Casey as PAUL?BLEA [id number] [address] MEDICAL OFFICE [facility] 2022-07-02 2022-07-02 Outpatient R JOSE [facility] [id number] Univers 15:30:00 15:30:00 DEYANIRA adkins [facility] 2022-07-02 2022-07-02 Refill Yanick [facility] 1.2.840.114 [id number] Univers 00:00:00 00:00:00 Veronica HEALTH 350.1.13.10 it y of [facility] 4.2.7.2.686 Casey as PAUL?BLEA [id number] [address] MEDICAL OFFICE [facility] 2022-06-24 2022-06-24 Outpatient R BARB [facility] [id number] Univers 15:30:00 15:30:00 DOREEN [facility] 2022-06-24 2022-06-24 Outpatient R BARB [facility] [id number] Univers 15:00:00 15:00:00 DOREEN [facility] 2022-06-24 2022-06-24 Refill [facility] 1.2.840.114 [id number] Univers 00:00:00 00:00:00 Unassigned, HEALTH 350.1.13.10 ity of [place] IFEANYI 4.2.7.2.686 Casey as PAUL?BLEA [id number] [address] MEDICAL OFFICE [facility] 2022-06-23 2022-06-23 Outpatient R TY [facility] [id number] Univers 08:30:00 08:43:15 SARAH [facility] 2022-06-23 2022-06-23 Office [facility] 1.2.266.537 [id number] Univers 08:30:00 08:43:15 [facility] 350.1.13.10 ity of [place] 4.2.7.2.686 [place] [facility] [phone] [facility] [place] [address] [facility] 2022-06-23 2022-06-23 Outpatient R TY [facility] [id number] Univers 08:30:00 08:30:00 SARAH adkins [facility] 2022-06-19 2022-06-19 Patient Jose [facility] 1.2.840.114 [id number] Univers 00:00:00 00:00:00 Secure Msg Deyanira A HEALTH 350.1.13.10 ity of [place] 4.2.7.2.686 Casey as PAUL?BLEA [phone] [facility] [address] MEDICAL OFFICE BUILDING 2022-06-17 2022-06-17 Case Arie [facility] 1.2.840.114 [id number] Univers 00:00:00 00:00:00 Management [facility] 350.1.13.10 ity of [place] 4.2.7.2.686 [facility] [place] [phone] [facility] [address] OFFICE BUILDING 2022-06-16 2022-06-16 Patient [facility] 1.2.840.114 [id number] Univers 00:00:00 00:00:00 Secure Msg Deyanira A HEALTH 350.1.13.10 ity of [place] 4.2.7.2.686 Casey as PAUL?BLEA [phone] [facility] [address] MEDICAL OFFICE BUILDING 2022-06-14 2022-06-14 Outpatient R SON [facility] [id number] Univers 16:00:00 16:31:22 [facility]SA [facility] 2022-06-14 2022-06-14 Keyshawn Cline [facility] 1.2.840.114 [id number] Univers 16:00:00 16:31:[address] [facility] 350.1.13.10 it y of [place] 4.2.7.2.686 Casey as PAUL?BLEA [phone] [facility] [address] MEDICAL OFFICE BUILDING 2022-06-13 2022-06-13 Load Dispatcher Local Lab, Ang - Db [facility] 1.2.840.1 14 [id number] Univers 12:45:00 13:00:00 Visit Sarah Crawford [facility] 350.1.13.10 ity of [place] 4.2.7.2.686 Casey as PAUL?BLEA [phone] Ky jae GOMES [address] MEDICAL OFFICE BUILDING 2022-06-13 2022-06-13 Outpatient R TY [facility] [id number] Univers 12:45:00 12:45:00 SARAH ity of [facility] 2022-06-13 2022-06-13 Patient Ty [facility] 1.2.739.420 [id number] Univers 00:00:00 00:00:00 Secure [facility] 350.1.13.10 ity of [place] 4.2.7.2.686 [place] [phone] [facility] AND [address] [facility] 2022-06-13 2022-06-13 Telephone Arie [facility] 1.2.840.114 [id number] Univers 00:00:00 00:00:00 [facility] 350.1.13.10 ity of [place] 4.2.7.2.686 [place] [id number] [facility] [address] OFFICE BUILDING 2022-06-12 2022-06-12 Nurse Nurse, Fernando [facility] 1.2.840.114 [id number] Univers 19:00:00 19:00:00 Visit Son Tessa [facility] 350.1.13.10 ity of [place] 4.2.7.2.686 [place] as PAUL?BLEA [phone] [place] jae GOMES [address] MEDICAL OFFICE BUILDING 2022-06-12 2022-06-12 Urgent Provider, Fernando [facility] 1.2.840.114 [id number] Univers 18:20:00 18:40:00 [facility] 350.1.13.10 ity of [place] 4.2.7.2.686 [place] as PAUL?BLEA [phone] [place] jae GOMES [address] MEDICAL OFFICE BUILDING 2022-06-12 2022-06-12 Outpatient R HENRY [facility] [id number] Univers 18:20:00 18:20:00 ASHLY adkins o f [facility] 2022-06-11 2022-06-11 Orders Doctor RASHAD 1.2.840.114 [id number] Univers 00:00:00 00:00:00 Only Unassigned, YONY 350.1.13.10 ity of [place] [facility] 4.2.7.2.686 Casey as [phone] [address] 2022-06-09 2022-06-09 [facility] 1.2.840.114 [id number] Univers 00:00:00 00:00:00 Deyanira A HEALTH 350.1.13.10 i ty of [place] 4.2.7.2.686 Casey as PAUL?BLEA [phone] [place] alyfrankie HORNE [address] [facility] OFFICE [facility] 2022-06-06 2022-06-06 Outpatient R KERRY [facility] [id number] Univers 15:40:00 15:40:00 SORAIDARODGER jed o f [facility] 2022-06-05 2022-06-05 [facility] [id number] Univers 12:33:11 23:59:00 KAYLEE ity of [facility] 2022-06-05 2022-06-05 [facility] 1.2.840.114 [id number] Univers 12:33:11 23:59:00 Encounter Kaylee HEALTH 350.1.13.10 ity of [place] 4.2.7.2.686 Casey as PAUL?BLEA [phone] [place] alyfrankie [facility] [address] [facility] OFFICE [facility] 2022-06-04 2022-06-04 [facility] [id number] Univers 20:19:31 23:59:00 KAYLEE ity of [facility] 2022-06-04 2022-06-04 [facility] 1.2.840.114 [id number] Univers 20:19:31 23:59:00 Encounter Kaylee HEALTH 350.1.13.10 ity of [place] 4.2.7.2.686 Casey as PAUL?BLEA [phone] [place] jae GOMES [address] [facility] OFFICE [facility] 2022-06-04 2022-06-04 [facility] Kaylee Duffy [facility] 1.2.840.114 [id number] Univers 20:00:00 20:20:00 Care [facility] 350.1.13.10 ity of [place] 4.2.7.2.686 Casey as PAUL?BLEA [phone] [address] MEDICAL OFFICE BUILDING 2022-05-26 2022-05-26 Outpatient R [facility] [id number] Univers 14:00:00 14:06:15 OMAYEMI ity of [facility] 2022-05-26 2022-05-26 Urgent [facility] 1.2.975.360 [id number] Univers 14:00:00 14:06:15 Care [facility] 350.1.13.10 it y of [place] 4.2.7.2.686 Casey as PAUL?BLEA [id number] [address] MEDICAL OFFICE BUILDING 2022-05-22 2022-05-22 Outpatient R [facility] [id number] Univers 10:51:15 23:59:00 LAKEISHA ity of [facility] 2022-05-22 2022-05-[address] [facility] 1.2.840.114 [id number] Univers 10:50:00 23:59:00 Encounter Lakeisha MENA 350.1.13.10 ity of [facility] 4.2.7.2.686 [place] [id number] [address] 2022-05-21 2022-05-21 [facility] [id number] Univers 08:30:00 08:41:29 ARIE [facility] ity [facility] 2022-05-21 2022-05-21 Office [facility] 1.2.840.114 [id number] Univers 08:30:00 08:41:29 Visit [facility] 350.1.13.10 ity of [place].2.7.2.686 [place] [id number] [facility] [address] [place] OFFICE BUILDING 2022-05-21 2022-05-21 Outpatient R [facility] [id number] Univers 08:30:00 08:30:00 ARIE [facility] 2022-05-21 2022-05-21 Outpatient R ARIE [facility] [id number] Univers 08:30:00 08:30:00 [facility] 2022-05-17 2022-05-17 Kenton [facility] 1.2.840.114 [id number] Univers 00:00:00 00:00:00 Pradeep MENA 350.1.13.10 i ty of [place] 4.2.7.2.686 [place] [id number] [address] 2022-05-16 2022-05-16 [facility] [id number] Univers 16:30:00 17:14:36 DEYANIRA [facility] 2022-05-16 2022-05-16 Office [facility] 1.2.840.114 [id number] Univers 16:30:00 17:14:36 Visit Deyanira Yang [facility] 350.1.13.10 i ty of [place] 4.2.7.2.686 [place] as PAUL?BLEA [id number] [address] MEDICAL OFFICE BUILDING 2022-05-16 2022-05-16 Transition DANIA Mathias 1.2.840.114 [id number] Univers 00:00:00 00:00:00 of Care Amelia MCCLELLAND 350.1.13.10 i ty of [place].2.7.2.686 [place] [id number] [address] 2022-05-13 2022-05-15 Inpatient U DOMO [facility] JOSE DANIEL [id number] Univers 01:50:00 15:50:00 JOSELUIS adkins [facility] 2022-05-13 2022-05-15 [facility] DARLIN Oliveros 1.2.413.094 [id number] Univers 01:50:00 15:50:00 Encounter Joseluis BHAKTA 350.1.13.10 ity of HOSPITAL 4.2.7.2.686 Casey as [id number] [facility] [address] [place] 2022-05-15 2022-05-15 Outpatient R OMAR [facility] [id number] Univers 00:00:00 00:00:00 LAKEISHA [facility] 2022-05-10 2022-05-10 Refill [facility] 1.2.840.114 [id number] Univers 00:00:00 00:00:00 Deyanira A HEALTH 350.1.13.10 i ty of [place] 4.2.7.2.686 Casey as PAUL?BLEA [id number] [facility] [address] MEDICAL OFFICE [facility] 2022-04-22 2022-04-22 Telephone RASHAD Mendez 1.2.392.400 [id number] Univers 00:00:00 00:00:00 Donita BHAKTA 350.1.13.10 i ty of [facility] 4.2.7.2.686 Casey as [id number] [facility] [address] [place] 2022-04-21 2022-04-21 Laboratory Only, Ang Db Test [facility] 1.2.8 40.114 [id number] Univers 12:00:00 12:15:00 Only Kaylee Duffy HEALTH 350.1.13.10 ity of [place] 4.2.7.2.686 Casey as PAUL?BLEA [phone] [facility] [address] [facility] OFFICE [facility] 2022-04-21 2022-04-21 Outpatient R CLIVE [facility] [id number] Univers 12:00:00 12:07:50 KAYLEE [facility] 2022-04-20 2022-04-20 Refill [facility] 1.2.840.114 [id number] Univers 00:00:00 00:00:00 Deyanira A HEALTH 350.1.13.10 i ty of [place] 4.2.7.2.686 Casey as PAUL?BLEA [id number] [facility] [address] MEDICAL OFFICE [facility] 2022-04-18 2022-04-19 Emergency X ESTUARDO, [facility] ERT [id number] Univers 19:44:00 00:02:00 FOLMASSIMOO ity of [facility] 2022-04-18 2022-04-19 Emergency Stanislavpraneethmarifer [facility] 1.2.840.114 [id number] Univers 19:44:00 00:02:00 Kleber MENA 350.1.13.10 ity of [place] 4.2.7.2.686 [place] [facility] [id number] [place] [address] [place] 2022-04-18 2022-04-18 Telephone RASHAD Linn 1.2.085.487 [id number] Univers 00:00:00 00:00:00 Melania Alex BHAKTA 350.1.13.10 ity of [facility] 4.2.7.2.686 Casey as [id number] [address] 2022-04-18 2022-04-18 Telephone RASHAD Linn 1.2.988.139 [id number] Univers 00:00:00 00:00:00 Melania Alex BHAKTA 350.1.13.10 ity of [facility] 4.2.7.2.686 [place] as [id number] [address] 2022-04-18 2022-04-18 Letter RASHAD Osman 1.2.840.114 [id number] Univers 00:00:00 00:00:00 (Out) Val Alex BHAKTA 350.1.13.10 it y of [facility] 4.2.7.2.686 Casey as [id number] [address] 2022-04-17 2022-04-17 Laboratory Only, Ang Db Test [facility] 1.2.8 40.114 [id number] Univers 16:15:00 16:30:00 Only [facility] 350.1.13.10 ity of [place] 4.2.7.2.686 Casey as PAUL?BLEA [phone] Ky jae [address] MEDICAL OFFICE BUILDING 2022-04-17 2022-04-17 Outpatient R SON [facility] [id number] Univers 16:15:00 16:20:28 TESSA ity [facility] 2022-04-17 2022-04-17 Patient Giuliano [facility] 1.2.840.114 [id number] Univers 00:00:00 00:00:00 Secure Msg Jaycee Schaefer HEALTH 350.1.13.10 ity of [place] 4.2.7.2.686 Casey as PAUL?BLEA [id number] [address] OFFICE [facility] 2022-04-14 2022-04-14 Patient [facility] 1.2.840.114 [id number] Univers 00:00:00 00:00:00 Secure Msg Deyanira Yang HEALTH 350.1.13.10 it[facility] 4.2.7.2.686 [place] as PAUL?BLEA [id number] [address] OFFICE [facility] 2022-04-11 2022-04-11 Office [facility]NEW [facility] 1.2.840.114 [id number] Univers 12:30:00 13:00:00 Visit Deyanira Yang HEALTH 350.1.13.10 i ty [facility] 4.2.7.2.686 Casey as PAUL?BLEA [id number] [address] OFFICE [facility] 2022-04-11 2022-04-11 Outpatient [facility] [id number] Univers 12:30:00 12:30:00 DEYANIRA ity of [facility] 2022-04-10 2022-04-10 Telephone [facility]NEW [facility] 1.2.958.244 [id number] Univers 00:00:00 00:00:00 Deyanira Yang HEALTH 350.1.13.10 i ty [facility] 4.2.7.2.686 Casey as PAUL?BLEA [id number] [address] OFFICE [facility] 2022-04-06 2022-04-06 Emergency X [facility]PH[facility]ENEW [facility] ERT [id number] Univers 15:05:00 18:27:00 SOPHIE adkins of [facility] 2022-04-06 2022-04-06 Emergency JosephineNEW [facility] 1.2.840.114 [id number] Univers 15:05:00 18:27:00 Sophie MENA 350.1.13.10 ity of [facility] 4.2.7.2.686 [place] [facility] [id number] [address] 2022-04-06 2022-04-06 Emergency X JOSEPHINE, [facility] ERT [id number] Univers 15:05:00 18:27:00 SOPHIE adkins [facility] 2022-04-02 2022-04-02 Outpatient R JOSE [facility] [id number] Univers 07:30:00 08:03:29 DEYANIRA adkins [facility] 2022-04-02 2022-04-02 Office [facility]NEW [facility] 1.2.840.114 [id number] Univers 07:30:00 08:03:29 Visit Deyanira Yang [facility] 350.1.13.10 i ty of [place] 4.2.7.2.686 Casey as PAUL?BLEA [id number] [address] MEDICAL OFFICE BUILDING 2022-03-28 2022-03-28 Patient Giuliano [facility] 1.2.840.114 [id number] Univers 00:00:00 00:00:00 Secure Msg Jaycee Schaefer HEALTH 350.1.13.10 ity of [place] 4.2.7.2.686 Casey as APUL?BLEA [id number] [address] MEDICAL OFFICE BUILDING 2022-03-24 2022-03-24 Office TyNEW [facility] 1.2.436.542 [id number] Univers 08:30:00 08:55:06 [facility] 350.1.13.10 ity of [facility] 4.2.7.2.686 [place] [id number] [address] [facility] 2022-03-24 2022-03-24 Outpatient Kathya CRAWFORD [facility] [id number] Univers 08:30:00 08:55:06 SARAH adkins [facility] 2022-03-24 2022-03-24 Outpatient Kathya CRAWFORD [facility] [id number] Univers 08:30:00 08:30:00 SARAH adkins [facility] 2022-03-24 2022-03-24 Outpatient Kathya CRAWFORD [facility] [id number] Univers 08:30:00 08:30:00 SARAH adkins [facility] 2022-03-20 2022-03-20 Telephone [facility]NEW [facility] 1.2.115.332 [id number] Univers 00:00:00 00:00:00 Deyanira A HEALTH 350.1.13.10 i ty of [place] 4.2.7.2.686 Casey as PAUL?BLEA [phone] [facility] [address] [facility] OFFICE [facility] 2022-03-19 2022-03-19 Load Dispatcher Local Lab, Ang - Db [facility] 1.2.840.1 14 [id number] Univers 12:45:00 13:00:00 Visit Deyanira Garcia A HEALTH 350.1.13.10 ity of [place] 4.2.7.2.686 Casey as PAUL?BLEA [id number] [facility] [address] [facility] OFFICE [facility] 2022-03-19 2022-03-19 Outpatient R JOSE [facility] [id number] Univers 12:45:00 12:45:00 DEYANIRA ity of [facility] 2022-03-19 2022-03-19 Refill [facility]NEW [facility] 1..840.114 [id number] Univers 00:00:00 00:00:00 Deyanira A HEALTH 350.1.13.10 i ty [facility] 4.2.7.2.686 Casey as PAUL?BLEA [id number] [address] OFFICE [facility] 2022-03-19 2022-03-19 Refill Doctor [facility] 1.2.840.114 [id number] Univers 00:00:00 00:00:00 Unassigned, HEALTH 350.1.13.10 ity of [place] 4.2.7.2.686 Casey as PAUL?BLEA [id number] [address] OFFICE [facility] 2022-03-19 2022-03-19 Refill Jose [facility] 1.2.840.114 [id number] Univers 00:00:00 00:00:00 Deyanira A HEALTH 350.1.13.10 i ty of [place] 4.2.7.2.686 Casey as PAUL?BLEA [id number] [address] OFFICE [facility] 2022-03-14 2022-03-14 Telephone Ty [facility] 1.2.840.114 [id number] Univers 00:00:00 00:00:00 Sarah MULTISPEC 350.1.13.10 ity of [place] 4.2.7.2.686 [facility] [phone] [facility] [place] [address] [place] DI[facility]ES CLINIC 2022-03-11 2022-03-11 Office FlipNEW [facility] 1.2.840.114 [id number] Univers 15:00:00 16:03:09 Visit Warner [facility] 350.1.13.10 it y of [place] 4.2.7.2.686 Casey as PAUL?BLEA [phone] [address] MEDICAL OFFICE BUILDING 2022-03-11 2022-03-11 Outpatient [facility] [id number] Univers 15:00:00 16:03:09 WARNER adkins [facility] 2022-03-11 2022-03-11 Outpatient R FLIP [facility] [id number] Univers 15:00:00 15:00:00 [facility] 2022-03-11 2022-03-11 Emergency X [facility] ERT [id number] Univers 10:30:00 12:24:00 BRYON [facility] 2022-03-11 2022-03-11 Emergency [facility] 1.2.483.477 [id number] Univers 10:30:00 12:24:00 Bryon MENA 350.1.13.10 i ty of [place] 4.2.7.2.686 [facility] [id number] [facility] [address] [place] 2022-03-11 2022-03-11 Orders Doctor RASHAD 1.2.840.114 [id number] Univers 00:00:00 00:00:00 Only Unassigned, YONY 350.1.13.10 ity of [place] [facility] 4.2.7.2.686 Casey as [phone] [facility] [address] 2022-02-28 2022-02-28 Outpatient R JOSE [facility] [id number] Univers 07:30:00 15:40:09 DEYANIRA adkins [facility] 2022-02-282022-02-28 Office [facility] 1.2.840.114 [id number] Univers 07:30:00 15:40:09 Visit Deyanira LUCAS 350.1.13.10 i ty of [place] 4.2.7.2.686 [place] as PAUL?BLEA [id number] [place] jae [address] MEDICAL OFFICE BUILDING 2022-02-28 2022-02-28 Outpatient [facility] [id number] Univers 07:30:00 15:40:09 DEYANIRA [facility] 2022-02-28 2022-02-28 Outpatient [facility] [id number] Univers 13:00:00 13:00:00 DEYANIRA [facility] 2022-02-27 2022-02-27 Transition DANIA Mathias 1.2.840.114 [id number] Univers 00:00:00 00:00:00 of Care Amelia MCCLELLAND 350.1.13.10 i ty of [place] 4.2.7.2.686 [place] [phone] [facility] [address] 2022-02-23 2022-02-26 Inpatient X [facility] KAYKAY [id number] Univers 19:51:00 14:57:00 SRIDHAR adkins [facility] 2022-02-23 2022-02-26 [facility] Caterina Cohen [facility] 1.2.840. 114 [id number] Univers 19:51:00 14:57:00 Encounter DmitrySridhar burdick IFEANYI 350.1.13.10 ity of [place] 4.2.7.2.686 [place] [id number] [facility] [address] 2022-02-23 2022-02-23 Orders Doctor RASHAD 1.2.840.114 [id number] Univers 00:00:00 00:00:00 Only Unassigned, YONY 350.1.13.10 ity of [place] [facility] 4.2.7.2.686 Casey as [phone] [facility] [address] 2022-02-21 2022-02-21 Emergency X [facility] ERT [id number] Univers 15:29:00 18:39:00 CATERINA adkins [facility] 2022-02-21 2022-02-21 Emergency Cohen, [facility] 1.2.840.114 [id number] Univers 15:29:00 18:39:00 Caterina MENA 350.1.13.10 i ty of [place] 4.2.7.2.686 [place] CAMPUS [phone] [facility] [address] [place] 2022-02-20 2022-02-20 Outpatient R JOSE [facility] [id number] Univers 07:00:00 08:10:01 DEYANIRA jed [facility] 2022-02-20 2022-02-20 Office [facility]NEW [facility] 1.2.840.114 [id number] Univers 07:00:00 08:10:01 Visit Deyanira Yang [facility] 350.1.13.10 i ty of [place] 4.2.7.2.686 Casey as PAUL?BLEA [id number] [address] MEDICAL OFFICE BUILDING 2022-02-18 2022-02-18 Transition DANIA Mathias 1.2.840.114 [id number] Univers 00:00:00 00:00:00 of Care Amelia MCKENNAY 350.1.13.10 i ty of [place] 4.2.7.2.686 [place] [id number] [facility] [address] 2022-02-15 2022-02-17 Inpatient X NIDIA [facility] KAYKAY [id number] Univers 19:50:00 18:42:00 ROHAN adkins [facility] 2022-02-15 2022-02-17 [facility] Janina Vasquez [facility] 1.2.840. 114 [id number] Univers 19:50:00 18:42:00 Encounter Paul Leigh [facility] 350.1.13.10 ity of [place] 4.2.7.2.686 [place] Rohan Farrell [id number] [address] ([facility]) 2022-02-15 2022-02-17 Inpatient X [facility] KAYKAY [id number] Univers 19:50:00 18:42:00 ROHAN adkins [facility] 2022-02-15 2022-02-17 [facility] [id number] Univers 19:50:00 18:42:00 ROHAN ity [facility] 2022-02-17 2022-02-17 Surgery FrankiekarmenNEW [facility]EXICO [facility] 1.2.840.114 [id number] Univers 15:26:00 16:26:00 Rayo HEALTH 350.1.13.10 it y of [place] 4.2.7.2.686 [place] [phone] [facility] [address] ([facility]) 2022-02-15 2022-02-15 Orders Doctor RASHAD 1.2.840.114 [id number] Univers 00:00:00 00:00:00 Only Unassigned, YONY 350.1.13.10 ity of [place] [facility] 4.2.7.2.686 Casey as [phone] [facility] [address] 2022-01-21 2022-01-21 Outpatient R DUSTIN [facility] [id number] Univers 12:32:20 23:59:00 FAHAD ity of [facility] 2022-01-21 2022-01-21 Hospital JHON Chan 1.2.840.114 [id number] Univers 12:32:20 23:59:00 Encounter Fahad Mcclain HEALTH 350.1.13.10 ity of [facility] 4.2.7.2.686 [place] [phone] [facility] [address] 2022-01-20 2022-01-20 Case Fa[facility]NEW [facility] 1.2.356.302 [id number] [id number] Univers 00:00:00 00:00:00 Management Orpheus M HEALTH 350.1.13.10 ity of [place] 4.2.7.2.686 [place] [facility] [phone] Med ical [facility] [address] 2022-01-17 2022-01-17 Kenton EspitiaNEW [facility]EXICO [facility] 1.2.840.114 [id number] Univers 00:00:00 00:00:00 Kirk MENA 350.1.13.10 ity of [place] 4.2.7.2.686 [place] [phone] Me dical NAL [address] BUILDING 2022-01-15 2022-01-15 Orders Doctor RASHAD 1.2.840.114 [id number] Univers 00:00:00 00:00:00 Only Unassigned, YONY 350.1.13.10 ity of [place] [facility] 4.2.7.2.686 Casey as [phone] [facility] [address] 2021-12-19 2021-12-19 Outpatient R DUSTIN [facility] [id number] Univers 08:15:00 08:15:00 [facility] 2021-12-18 2021-12-18 Outpatient R ARIE [facility] [id number] Univers 11:00:00 11:00:00 [facility] 2021-12-18 2021-12-18 Outpatient R ARIE [facility] [id number] Univers 11:00:00 11:00:00 [facility] 2021-12-18 2021-12-18 Outpatient R ARIE [facility] [id number] Univers 11:00:00 11:00:00 [facility] 2021-12-18 2021-12-18 Telephone Dustin [facility] 1.2.911.305 [id number] Univers 00:00:00 00:00:00 Fahad HEALTH 350.1.13.10 it y of [place] 4.2.7.2.686 [place] [facility] - [phone] [facility] [address] 2021-12-11 2021-12-11 Refill Wing [facility] 1.2.840.114 [id number] Univers 00:00:00 00:00:00 Rania HEALTH 350.1.13.10 it y of [place] 4.2.7.2.686 Casey as PAUL?BLEA [phone] Ky jae HORNEEY [address] MEDICAL OFFICE BUILDING 2021-12-10 2021-12-10 Emergency X ROBBIN [facility] ERT [id number] Univers 17:14:00 22:57:00 RAAD ity of [facility] 2021-12-10 2021-12-10 Emergency SiegelNEW [facility]ICO [facility] 1.2.730.447 [id number] Univers 17:14:00 22:57:00 Raad IFEANYI 350.1.13.10 i ty of [place] 4.2.7.2.686 [place] [facility] [phone] [facility] [address] [place] 2021-12-10 2021-12-10 Orders Doctor RASHAD 1.2.840.114 [id number] Univers 00:00:00 00:00:00 Only Unassigned, YONY 350.1.13.10 ity of [place] [facility] 4.2.7.2.686 Casey as [phone] [facility] [address] [place] 2021-12-07 2021-12-07 Telephone RASHAD Mendez 1.2.868.134 [id number] Univers 00:00:00 00:00:00 Donita BHAKTA 350.1.13.10 i ty of [facility] 4.2.7.2.686 Casey as [phone] [facility] [address] [place] 2021-12-07 2021-12-07 Telephone RASHAD Mendez 1.2.197.760 [id number] Univers 00:00:00 00:00:00 Donita BHAKTA 350.1.13.10 i ty of [address]686 Casey as [phone] [address] 2021-12-06 2021-12-06 Outpatient R [facility] [id number] Univers 18:30:00 18:30:00 ity of [facility] 2021-12-06 2021-12-06 Urgent Riana Dimas [facility] 1.2.840.114 [id number] Univers 10:20:00 10:40:00 Tessa Rowe [facility] 350.1.13.10 ity of [place] 4.2.7.2.686 Casey as PAUL?BLEA [phone] [address] MEDICAL OFFICE BUILDING 2021-12-06 2021-12-06 Outpatient R SON [facility] [id number] Univers 10:20:00 10:26:44 TESSA ity of [facility] 2021-12-02 2021-12-02 [facility] [id number] Univers 12:52:14 23:59:00 LAKEISHA adkins [facility] 2021-12-02 2021-12-[address] [facility] 1.2.840.114 [id number] Univers 12:52:14 23:59:00 Encounter Lakeisha Kathya [place] 350.1.13.10 ity of [facility] [id number] [facility] [phone] [address] 2021-12-02 2021-12-02 [facility] [id number] Univers 00:00:00 00:00:00 LAKEISHA adkins [facility] 2021-11-28 2021-11-28 [facility] 1.2.840.114 [id number] Univers 08:30:00 08:45:00 Visit [facility] [id number] it y of [place] [id number] [facility] [phone] [place] [address] [place] 2021-11-28 2021-11-28 Outpatient Kathya CHAN [facility] [id number] Univers 08:30:00 08:30:00 FAHAD adkins [facility] 2021-11-28 2021-11-28 [facility] [id number] Univers 08:30:00 08:30:00 FAHAD adkins [facility] 2021-11-28 2021-11-28 Outpatient Kathya CHAN [facility] [id number] Univers 08:30:00 08:30:00 FAHAD adkins [facility] 2021-11-27 2021-11-27 Outpatient Kathya GARCIA [facility] [id number] Univers 10:57:48 23:59:00 DEYANIRA acostasarahi [facility] 2021-11-27 2021-11-27 [facility] [id number] Univers 10:57:48 23:59:00 DEYANIRA adkins [facility] 2021-11-27 2021-11-27 [facility] 1.2.840.114 [id number] Univers 10:57:48 23:59:00 Encounter Deyanira MENA [id number] ity of [place] [id number] [place] [facility] [phone] [facility] [address] 2021-11-27 2021-11-27 Office [facility] 1.2.840.114 [id number] Univers 09:30:00 10:49:43 Visit Deyanira Yang HEALTH [id number] i ty of [place] [id number] Casey as PAUL?BLEA [phone] [facility] [address] MEDICAL OFFICE BUILDING 2021-11-25 2021-11-25 [facility] 1.2.840.114 [id number] Univers 00:00:00 00:00:[address] [facility] HEALTH [id number] ity of [place] [id number] [facility] - [phone] Med ical [facility] [address] 2021-11-14 2021-11-14 [facility] 1.2.840.114 [id number] Univers 00:00:00 00:00:00 [facility] [id number] ity of [place] [id number] [facility] [phone] [facility] [address] OFFICE BUILDING 2021-11-12 2021-11-12 Outpatient R SHARON [facility] [id number] Univers 10:00:00 10:00:00 ANDREW ity of [facility] 2021-11-09 2021-11-09 Tessa Swift [facility] 1.2.840.114 [id number] Univers 19:20:00 19:40:00 Care Riana Dimas HEALTH [id number] ity of [place] [id number] Casey as PAUL?BLEA [phone] [place] jae [facility] [address] MEDICAL OFFICE BUILDING 2021-11-09 2021-11-09 Outpatient R SON [facility] [id number] Univers 19:20:00 19:20:00 TESSA [facility] 2021-11-04 2021-11-04 Telephone [facility] 1.2.838.911 [id number] Univers 00:00:00 00:00:00 Deyanira A HEALTH 350.1.13.10 i ty [facility] 4.2.7.2.686 Casey as PAUL?BLEA [phone] [facility] [address] [place] MEDICAL OFFICE [facility] 2021-10-31 2021-10-31 Outpatient Kathya CRAWFORD [facility] [id number] Univers 10:30:00 10:30:00 [facility] 2021-10-31 2021-10-31 Outpatient [facility] [id number] Univers 10:30:00 10:30:00 [facility] 2021-10-27 2021-10-27 Refill [facility] 1.2.840.114 [id number] Univers 00:00:00 00:00:00 Deyanira A HEALTH 350.1.13.10 i ty of [place] 4.2.7.2.686 Casey as PAUL?BLEA [phone] [facility] 044 [facility] OFFICE [facility] 2021-10-24 2021-10-24 Outpatient Kath[facility] [id number] Univers 08:00:00 08:00:00 [facility] 2021-10-22 2021-10-22 Inpatient EL Omar, HCACL ENDO [id number] [facility] 05:27:00 05:27:00 Lakeisha Martinez [facility] 2021-10-21 2021-10-21 Load Dispatcher Local Shreyas, Adc Lab Main [facility] 1.2.8 40.114 [id number] Univers 16:22:22 16:37:22 Visit Sarah Crawford 350.1.13.10 ity of [facility] 4.2.7.2.[place] [phone] [facility] 2021-10-21 2021-10-21 Outpatient Kathya CRAWFORD [facility] [id number] Univers 08:00:00 08:00:00 [facility] 2021-10-21 2021-10-21 Outpatient R TY [facility] [id number] Univers 08:00:00 08:00:00 SARAH sarahi [facility] 2021-10-21 2021-10-21 Orders Doctor RASHAD 1.2.840.114 [id number] Univers 00:00:00 00:00:00 Only Unassigned, YONY 350.1.13.10 ity of [place] [facility] 4.2.7.2.686 Casey as [phone] [facility] [address] [place] 2021-10-16 2021-10-16 Telephone DARLIN Herrera 1.2.304.183 [id number] Univers 00:00:00 00:00:00 Andrew YONY 350.1.13.10 it y of [facility] 4.2.7.2.686 Casey as [phone] [facility] [address] [place] 2021-10-10 2021-10-10 [facility] [id number] Univers 16:30:00 17:25:54 DEYANIRA adkins [facility] 2021-10-10 2021-10-10 Office [facility] 1.2.840.114 [id number] Univers 16:26:32 17:25:54 Visit Deyanira Yang [facility] 350.1.13.10 i ty of [place] 4.2.7.2.686 Casey as PAUL?BLEA [phone] Ky dicwa KNEY [address] [place] MEDICAL OFFICE BUILDING 2021-10-01 2021-10-01 Refill [facility] 1.2.840.114 [id number] Univers 00:00:00 00:00:00 Wentong [place] 350.1.13.10 i ty of [place] 4.2.7.2.[place] [phone] Ky dicfrankie NAL [address] [place] BUILDING 2021-09-25 2021-09-25 Refill [facility] 1.2.840.114 [id number] Univers 00:00:00 00:00:00 Deyanira A PRIMARY 350.1.13.10 i ty of C[place] 4.2.7.2.686 [place] [phone] Ky dical [address] [place] 2021-09-23 2021-09-23 Load Dispatcher Local Shreyas, Adc Lab Main [facility] 1.2.8 40.114 [id number] Univers 08:18:10 08:33:10 Visit Sarah Crawford 350.1.13.10 ity of [place].2.7.2.686 [place] [facility] [phone] Ky dical NAL [address] BUILDING 2021-09-23 2021-09-23 Outpatient Kathya CRAWFORD [facility] [id number] Univers 08:30:00 08:30:00 SARAH ity [facility] 2021-09-23 2021-09-23 Outpatient Kathya CRAWFORD [facility] [id number] Univers 08:30:00 08:30:00 SARAH ity [facility] 2021-09-23 2021-09-23 Telephone DARLIN Herrera 1.2.675.739 [id number] Univers 00:00:00 00:00:00 Andrew YONY 350.1.13.10 it y of HOSPITAL 4.2.7.2.686 [place] as [phone] [place] [address] Branch 2021-09-18 2021-09-18 Office Doc [facility] 1.2.840.114 [id number] Univers 15:21:04 16:06:04 Visit [facility] 350.1.13.10 it y of [place] 4.2.7.2.686 [place] [phone] [facility] 059 Branch Office Building 2021-09-18 2021-09-18 Outpatient R DOC [facility] [id number] Univers 16:00:00 16:00:00 JESSICA ity [facility] 2021-09-18 2021-09-18 Telephone Ty [facility] 1.2.840.114 [id number] Univers 00:00:00 00:00:00 Sarah [facility] 350.1.13.10 ity of [facility] 4.2.7.2.686 [place] [phone] [facility] [place] [address] [facility] 2021-09-17 2021-09-17 Refflores Garcia [facility] 1.2.840.114 [id number] Univers 00:00:00 00:00:00 Deyanira A PRIMARY 350.1.13.10 i ty of C[place] 4.2.7.2.686 [place] [phone] [address] 2021-09-13 2021-09-13 Kenton [facility] 1.2.840.114 [id number] Univers 00:00:00 00:00:00 Kirk Mena 350.1.13.10 ity of [place].2.7.2.[place] [phone] [place] 172219 [facility] 2021-09-12 2021-09-12 Telephone [facility] 1.2.101.426 [id number] Univers 00:00:00 00:00:00 Deyanira A Health 350.1.13.10 i ty of [place] 4.2.7.2.686 Casey as Paul?Blea [phone] [address] Medical Office Building 2021-09-09 2021-09-09 [facility] 1.2.840.114 [id number] Univers 14:54:34 23:59:00 Encounter Rashad Mena 350.1.13.10 ity of [place] 4.2.7.2.686 [place] [phone] [facility] [address] [place] 2021-09-09 2021-09-09 Outpatient R [facility] [id number] Univers 00:00:00 00:00:00 RASHAD adkins of [facility] 2021-09-09 2021-09-09 Telephone Arie [facility] 1.2.840.114 [id number] Univers 00:00:00 00:00:00 [facility] 350.1.13.10 ity of [place] 4.2.7.2.686 [place] [phone] [place] 741919 Branch Office Building 2021-09-06 2021-09-06 Telephone Brent Meier [facility] 1.2.840.114 [id number] Univers 00:00:00 00:00:00 PRIMARY 350.1.13.10 it y of C[place] 4.2.7.2.[place] [phone] [facility] [address] [place] 2021-09-03 2021-09-03 Case ReneaBrent RASHAD 1.2.840.114 [id number] Univers 00:00:00 00:00:00 Management YONY 350.1.13.10 ity of HOSPITAL 4.2.7.2.686 [place] as [phone] [address] 2021-08-28 2021-08-28 Orders Doctor RASHAD 1.2.840.114 [id number] Univers 00:00:00 00:00:00 Only Unassigned, YONY 350.1.13.10 ity of [place] [facility] 4.2.7.2.686 [place] as [phone] [address] 2021-08-23 2021-08-23 [facility] 1.2.798.562 [id number] Univers 00:00:00 00:00:00 Deyanira A Health 350.1.13.10 i ty of [place] 4.2.7.2.686 Casey as Paul?Blea [phone] [address] Medical Office Building 2021-08-22 2021-08-22 Outpatient R [facility] [id number] Univers 14:30:00 14:30:00 ity [facility] 2021-08-21 2021-08-21 [facility] [id number] Univers 15:00:00 15:53:52 DEYANIRA ity [facility] 2021-08-21 2021-08-21 [facility] 1.2.840.114 [id number] Univers 14:34:15 15:04:15 Visit Deyanira A Health 350.1.13.10 i ty of [place] 4.2.7.2.686 Casey as Paul?Blea [phone] [address] Medical Office Building 2021-08-21 2021-08-21 Outpatient [facility] [id number] Univers 15:00:00 15:00:00 DEYANIRA ity [facility] 2021-08-19 2021-08-20 Emergency Raad Siegel 1.2.840. 114 [id number] Univers 07:42:00 16:45:00 Jenny Chatterjee 350.1.13.10 ity of [facility] 4.2.7.2.686 [place] [phone] [facility] [address] [place] 2021-07-30 2021-07-30 Outpatient R KERRY [facility] [id number] Univers 09:00:00 09:00:00 KIRK ity o f [facility] 2021-07-28 2021-07-28 Outpatient R [facility] [id number] Univers 09:30:00 09:30:00 ity of [facility] 2021-07-28 2021-07-28 Laboratory Only, Ang Db Test [facility] 1.2.8 40.114 [id number] Univers 09:12:13 09:27:13 Only Clive [facility] 350.1.13.10 ity of [place] 4.2.7.2.686 [place] as Paul?Blea [phone] Me jae gomes [address] [place] Medical Office Building 2021-07-11 2021-07-11 [facility] Dhaval [facility] 1.2.840.114 [id number] Univers 12:26:12 23:59:00 Encounter David SPECIALTY 350.1.13.10 ity of [place] 4.2.7.2.686 [place] C[place] AT [phone] Me jae BRUNO 803 [facility] 2021-07-11 2021-07-11 Outpatient R DHAVAL [facility] [id number] Univers 00:00:00 00:00:00 DAVID ity of [facility] 2021-07-08 2021-07-08 Patient Jaimie MSPRISCILLA 1.2.840.114 [id number] Univers 00:00:00 00:00:00 Secure Msg Fatmata SPECIALTY 350.1.13.10 ity of C[place] 4.2.7.2.686 [place] C[place] AT [phone] Me jae BRUNO 072 [facility] 2021-07-05 2021-07-05 Telephone Jaimie [facility] 1.2.840.114 [id number] Univers 00:00:00 00:00:00 Fatmata SPECIALTY 350.1.13.10 ity of C[place] 4.2.7.2.686 [place] AT [phone] [place] alyfrankie Nava[address] [place] [address] 2021-07-05 2021-07-05 Patient Jose [facility] 1.2.840.114 [id number] Univers 00:00:00 00:00:00 Secure Ms Deyanira Yang [facility] 350.1.13.10 ity of [place] 4.2.7.2.686 Casey as Professio [phone] Ky alyfrankie [address] [facility] 2021-07-02 2021-07-02 Telephone Jaimie [facility] 1.2.840.114 [id number] Univers 00:00:00 00:00:00 Fatmata SPECIALTY 350.1.13.10 ity of [place] 4.2.7.2.686 [place] C[place] AT [phone] Ky layfrankie BRUNO [address] [place] [address] 2021-06-29 2021-06-29 Orders Doctor RASHAD 1.2.840.114 [id number] Univers 00:00:00 00:00:00 Only Unassigned, YONY 350.1.13.10 ity of [place] [facility] 4.2.7.2.686 Casey as [phone] [address] 2021-06-28 2021-06-28 Telephone Jaimie [facility] 1.2.840.114 [id number] Univers 00:00:00 00:00:00 Fatmata SPECIALTY 350.1.13.10 ity of [place] 4.2.7.2.686 [place] AT [phone] Ky alyfrankie BRUNO [address] [place] [address] 2021-06-27 2021-06-27 Office Fatmata Adams [facility] 1.2.840.11 [id number] Univers 15:33:35 16:03:35 Visit Josue Shaikh SPECIALTY 350.1.13.10 ity of [place] 4.2.7.2.686 [place] AT [phone] Ky alyfrankie BRUNO [address] [place] [address] 2021-06-27 2021-06-27 Office [facility] 1.2.840.114 [id number] Univers 07:31:01 08:21:04 Visit David SPECIALTY 350.1.13.10 ity of [facility] 4.2.7.2.686 [place] C[place] AT [phone] Ky jae BRUNO 198 [facility] 2021-06-27 2021-06-27 Out[facility] [id number] Univers 08:00:00 08:00:00 DAVID ity of [facility] 2021-06-26 2021-06-26 Load Dispatcher Local Shreyas, Chinedu Lab Main [facility] 1.2.8 40.114 [id number] Univers 12:13:14 12:28:14 Visit Deyanira Garcia 350.1.13.10 ity of [place] 4.2.7.2.686 [place] [phone] Ky jae martinez 353 [facility] 2021-06-26 2021-06-26 Outpatient R JOSE [facility] [id number] Univers 12:15:00 12:15:00 DEYANIRA ity [facility] 2021-06-25 2021-06-25 Telephone [facility] 1.2.692.010 [id number] Univers 00:00:00 00:00:00 Deyanira Yang [facility] 350.1.13.10 i ty of [place] 4.2.7.2.686 Casey as Professio [phone] [facility] nal 044 [facility] One 2021-06-24 2021-06-24 Refflores Espitia [facility] 1.2.840.114 [id number] Univers 00:00:00 00:00:00 Kirk Mena 350.1.13.10 ity of [place] 4.2.7.2.686 [place] [phone] Ky dical nal 059 [facility] 2021-06-20 2021-06-20 Office Sarah Crawford [facility] 1.2.840. 114 [id number] Univers 07:39:51 08:23:21 Visit Marisel WelchPEC 350.1.13.10 ity of [place] 4.2.7.2.686 [place] CENTER [phone] [facility] AND [address] DIABETES CLINIC 2021-06-20 2021-06-20 Outpatient R ALONSO [facility] [id number] Univers 08:00:00 08:00:00 ARIAYUKI jed [facility] 2021-06-20 2021-06-20 Outpatient R ALONSO [facility] [id number] Univers 08:00:00 08:00:00 MARISEL adkins [facility] 2021-06-20 2021-06-20 Refill [facility] 1.2.840.114 [id number] Univers 00:00:00 00:00:00 Leonardo Mena 350.1.13.10 i ty of [place] 4.2.7.2.686 [place] [phone] Me dical nal 220 [facility] 2021-06-20 2021-06-20 Refill Delroy [facility] 1.2.840.114 [id number] Univers 00:00:00 00:00:00 Leonardo Mena 350.1.13.10 i ty of [place] 4.2.7.2.686 [place] [phone] Me dical nal 220 [facility] 2021-06-17 2021-06-17 Outpatient Kathya WELCH [facility] [id number] Univers 16:30:00 16:30:00 MARISEL adkins [facility] 2021-06-17 2021-06-17 Outpatient R DELROY [facility] [id number] Univers 16:30:00 16:30:00 LEONARDO adkins [facility] 2021-06-17 2021-06-17 Load Dispatcher Local Shreyas, Chinedu Lab Main [facility] 1.2.8 40.114 [id number] Univers 07:49:16 08:04:16 Visit Marisel Welch 350.1.13.10 ity of [place] 4.2.7.2.686 [place] Professio [phone] Ky dical nal 353 [facility] 2021-06-13 2021-06-13 Outpatient Kathya ARTEAGA [facility] [id number] Univers 13:30:00 13:30:00 KAE ity of [facility] 2021-06-13 2021-06-13 Load Dispatcher Local Pohiwot, Chinedu Lab Main [facility] 1.2.8 40.114 [id number] Univers 08:16:02 08:31:02 Visit Sarah Crawford 350.1.13.10 ity of [place] 4.2.7.2.686 [place] [phone] Ky dical nal [address] Building 2021-06-12 2021-06-12 [facility] 1.2.840.114 [id number] Univers 14:34:54 23:59:00 Encounter Deyanira Mataton 350.1.13.10 ity of [place] 4.2.7.2.686 [place] [phone] [address] 2021-06-12 2021-06-12 [facility] 1.2.840.114 [id number] Univers 14:33:18 14:33:18 Encounter Deyanira Mena 350.1.13.10 ity of [place] 4.2.7.2.686 [place] [phone] [address] 2021-06-12 2021-06-12 [facility] 1.2.840.114 [id number] Univers 14:32:08 14:32:08 Encounter Deyanira Mataton 350.1.13.10 ity of [place] 4.2.7.2.686 [place] [phone] [address] 2021-06-12 2021-06-12 Load Dispatcher Local Lab, [facility] Fam Pob I [facility] 1.2. 840.114 [id number] Univers 14:11:49 14:31:49 Visit JoseDeyanira [facility] 350.1.13.10 ity of [place] 4.2.7.2.686 Casey as Professio [phone] Ky dical nal [address] [place] Office Building One 2021-06-12 2021-06-12 [facility] 1.2.840.114 [id number] Univers 13:06:12 14:12:00 Visit [facility] 350.1.13.10 i ty of [place] 4.2.7.2.686 Casey as Professio [phone] Ky jae martinez [address] [place] Office Building One 2021-06-12 2021-06-12 Outpatient Kathya GARCIA [facility] [id number] Univers 13:30:00 13:30:00 DEYANIRA sarahi [facility] 2021-06-12 2021-06-12 Outpatient Kathya GARCIA [facility] [id number] Univers 13:30:00 13:30:00 DEYANIRA [facility] 2021-06-12 2021-06-12 Telephone [facility] 1.2.840.114 [id number] Univers 00:00:00 00:00:00 Sarah CURRAN 350.1.13.10 [facility] 4.2.7.2.686 [place] C[place] [phone] [facility] AND TREVA [address] [place] DIABETES CLINIC 2021-06-06 2021-06-06 Patient Luis Armandoalan [facility] 1.2.840.114 [id number] Univers 00:00:00 00:00:00 Secure Msg Fatmata SPECIALTY 350.1.13.10 ity of C[place] 4.2.7.2.686 [place] C[place] AT [phone] Ky jae BRUNO 2 [facility] 2021-06-06 2021-06-06 Patient Jaimie [facility] 1.2.840.114 [id number] Univers 00:00:00 00:00:00 Secure Msg Fatmata SPECIALTY 350.1.13.10 ity of [place] 4.2.7.2.686 [place] C[place] AT [phone] Ky jae BRUNO [address] [place] [address] 2021-06-04 2021-06-04 Nurse RASHAD Valencia 1.2.840.114 [id number] Univers 00:00:00 00:00:00 Triage Yousuf YONY 350.1.13.10 ity of [facility] 4.2.7.2.686 Casey as [phone] [facility] [address] 2021-06-03 2021-06-03 Outpatient [facility] [id number] Univers 20:40:00 20:40:00 ABE ity of [facility] 2021-06-02 2021-06-03 Emergency [facility] 1.2.644.258 [id number] Univers 20:51:00 00:51:00 Sera S [place] 350.1.13.10 ity of [place] 4.2.7.2.686 [place] [phone] [facility] [address] 2021-06-03 2021-06-03 Telephone [facility] 1.2.840.114 [id number] Univers 00:00:00 00:00:00 Fatmata SPECIALTY 350.1.13.10 ity of CARE 4.2.7.2.686 [facility] AT [phone] Ky jae BRUNO 2 [facility] 2021-05-31 2021-05-31 Urgent [facility] [place] 1.2.898.945 [id number] Univers 13:13:32 13:33:32 Care [facility] 350.1.13.10 it y of [place] 4.2.7.2.686 Casey as Professio [phone] Ky jae martinez [address] Office Building One 2021-05-31 2021-05-31 Outpatient R JOSE [facility] [id number] Univers 13:30:00 13:30:00 DEYANIRA [facility] 2021-05-31 2021-05-31 [facility] [id number] Univers 13:20:00 13:20:00 [facility] 2021-05-29 2021-05-29 Office [facility] 1.2.840.114 [id number] Univers 15:04:37 15:34:37 Visit [facility] 350.1.13.10 ity of [place] 4.2.7.2.686 [place] [phone] [facility] 059 Branch Office Building 2021-05-29 2021-05-29 [facility] [id number] Univers 15:30:00 15:30:00 MARVIN ANGELES ity of [facility] 2021-05-29 2021-05-29 Patient Arie [facility] 1.2.840.114 [id number] Univers 00:00:00 00:00:00 Secure Msg [facility] 350.1.13.10 ity of [place] 4.2.7.2.686 [place] [phone] [facility] [address] [place] Office Building 2021-05-23 2021-05-23 Patient Flip [facility] 1.2.840.114 [id number] Univers 00:00:00 00:00:00 Secure Msg [facility] 350.1.13.10 ity of [place] 4.2.7.2.686 Casey as Professio [phone] Ky dicfrankie martinez [address] [place] [address] [facility] 2021-05-23 2021-05-23 Telephone Jaimie MSPRISCILLA 1.2.840.114 [id number] Univers 00:00:00 00:00:00 Fatmata SPECIALTY 350.1.13.10 ity of [place] 4.2.7.2.686 [place] C[place] AT [phone] Ky jae BRUNO 072 [facility] 2021-05-23 2021-05-23 Patient Jaimie VAMSI 1.2.840.114 [id number] Univers 00:00:00 00:00:00 Secure Ms Fatmata Y HEALTH 350.1.13.10 ity of CLINICS 4.2.7.2.686 [place] [phone] [facility] [address] [place] 2021-05-22 2021-05-22 Office [facility] 1.2.840.114 [id number] Univers 07:59:17 08:32:31 Visit Leonardo Mena 350.1.13.10 i ty of [place] 4.2.7.2.686 [place] Profess[place] [phone] Ky jae nal 220 [facility] 2021-05-22 2021-05-22 Outpatient R DELROY [facility] [id number] Univers 08:00:00 08:00:00 WENTONG ity [facility] 2021-05-18 2021-05-18 [facility] 1.2.598.370 [id number] Univers 18:56:00 22:43:00 Sera Mena 350.1.13.10 ity of [place] 4.2.7.2.686 [place] [phone] [facility] [address] 2021-05-18 2021-05-18 Outpatient [facility] [id number] Univers 19:00:00 19:00:00 ABE [facility] 2021-05-17 2021-05-17 Patient [facility] 1.2.840.114 [id number] Univers 00:00:00 00:00:[address] [facility] Bon[facility] 350.1.13.10 [place] 4[place]2.7.2.686 [place] [facility] [phone] [facility] [address] [place] Office Building 2021-05-17 2021-05-17 Telephone Flip [facility] 1.2.233.518 [id number] Univers 00:00:00 00:00:00 [facility] 350.1.13.10 it y of [place] 4.2.7.2.686 [place] as Professio [phone] Ky dicwa nal [address] [place] [address] [facility] 2021-05-16 2021-05-16 Office Flip [facility] 1.2.840.114 [id number] Univers 15:06:20 15:36:20 Visit Warner Bonica.co 350.1.13.10 it y of [place] 4.2.7.2.686 Casey as Professio [phone] Ky dicwa nal [address] [place] [address] [facility] 2021-05-16 2021-05-16 Out[facility] [id number] Univers 15:30:00 15:30:00 WARNER [facility] [place] 2021-05-13 2021-05-13 Outpatient R DUSTIN [facility] [id number] Univers 10:45:00 10:45:00 FAHAD [facility] [place] 2021-05-13 2021-05-13 [facility] 1.2.840.114 [id number] Univers 00:00:00 00:00:00 Secure Msg Deyanira [facility] 350.1.13.10 ity of [place] 4.2.7.2.686 [place] as Professio [phone] [place]ical [place]al [address] One 2021-05-12 2021-05-12 Nurse Bri KIRKLAND 1.2.840.114 [id number] Univers 00:00:00 00:00:00 Triage Judith manning 350.1.13.10 ity of HOSPITAL 4.2.7.2.686 [place] as [phone] [place] [address] Branch 2021-05-12 2021-05-12 Telephone Lennie Brito [facility] 1.2.840.114 [id number] Univers 00:00:00 00:00:00 Latia Bonica.co 350.1.13.10 [place] [phone] [address] ([facility]) 2021-05-05 2021-05-08 Emergency Lennie Brito Latia [facility] 1.2.840. 114 [id number] Univers 15:48:00 13:06:00 Sridhar Rayo [facility] 350.1.13.10 ity of [place] 4.2.7.2.686 [place] Light [phone] [address] ([facility]) 2021-05-07 2021-05-07 Refflores Potts, 1.2.840.2 [id number] Univers 00:00:00 00:00:00 [place] 28672.1.1 ity of 3.104.2.7 [place] .3.725501 Medica l .8 [place] 2021-05-05 2021-05-05 Travel 1.2.840.1 1.2.795.321 [id number] Univers 00:00:00 00:00:00 73402.1.1 350.1.13.10 ity of 3[place]104.2.7 4.[place]3.698 [place] .3.719099 084.8 Medica l .8 [place] 2021-04-29 2021-04-29 Patient Doctor 1.2.840.5 [id number] Univers 00:00:00 00:00:00 Secure Msg Unassigned, 53570.1.1 ity of [place] 3.104.2.7 [place] .3.716883 Medica l .8 Branch 2021-04-27 2021-04-27 Patient Doctor 1.2.840.8 [id number] Univers 00:00:00 00:00:00 Secure Msg Unassigned, 68401.1.1 ity of [place] 3.104.2.7 [place] .3.617390 Medica l .8 Branch 2021-04-27 2021-04-27 Patient Doctor 1.2.840.7 [id number] Univers 00:00:00 00:00:00 Secure Msg Unassigned, 52214.1.1 ity of [place] 3.104.2.7 [place] .3.992746 Medica l .8 [place] 2021-04-25 2021-04-25 Outpatient R VINNY [facility] [id number] Univers 09:30:00 09:30:00 SCOOTER adkins of [facility] 2021-04-25 2021-04-25 Office Scooter Mcdonald 1.2.840.1 [id number] Univers 08:50:59 09:20:59 Visit Fatmata Adams 71521.1.1 ity of 3.104.2.7 [place] .3.589006 Medica l .8 [place] 2021-04-24 2021-04-24 Telephone Jose, 1.2.840.8 [id number] Univers 00:00:00 00:00:00 Deyanira Yang 80676.1.1 ity of 3.104.2.7 [place] .3.622644 Medica l .8 [facility] 2021-04-24 2021-04-24 Patient Sagarclifford, 1.2.840.4 [id number] Univers 00:00:00 00:00:00 Secure Msg Pradeep 17486.1.1 i ty of Bal 3.104.2.7 [place] .3.435185 Medica l .8 [facility] 2021-04-24 2021-04-24 Travel 1.2.840.1 1.2.745.330 0571 3950 Univers 00:00:00 00:00:00 33187.1.1 350.1.13.10 ity of 3.104.2.7 [place].3.698 [place] 084.8 [place] .8 [place] 2021-04-19 2021-04-19 Telephone Adam, 1.2.840.4 [id number] [id number] Univers 00:00:00 00:00:00 Elmarshall A 84756.1.1 ity of 3.104.2.7 [place] .3.156530 Medica l .8 [place] 2021-04-16 2021-04-16 Office Lisseth, 1.2.840.6 [id number] [id number] Univers 13:54:30 14:26:52 Visit Pradeep 90903.1.1 ity of [place] 3.104.2.7 [place] .3.073834 Medica l .8 [place] 2021-04-16 2021-04-16 Outpatient R CIARA, [facility] [id number] Univers 14:15:00 14:15:00 WONDIFUL ity o f [facility] 2021-04-16 2021-04-16 Outpatient R LISSETH, [facility] [id number] Univers 14:00:00 14:00:00 PRADEEP adkins of [facility] 2021-04-16 2021-04-16 Patient Jaimie, 1.2.840.7 [id number] Univers 00:00:00 00:00:00 Secure Msg Fatmata 43034.1.1 i ty of 3.104.2.7 [place] .3.769456 Medica l .8 [place] 2021-04-16 2021-04-16 Travel 1.2.840.1 1.2.598.399 2077 1316 Univers 00:00:00 00:00:00 81628.1.1 350.1.13.10 ity of 3.104.2.7 [place].3.698 [place].7718[place] 084.8 Med[place] l .8 [place] 2021-04-15 2021-04-15 Nurse Erik, 1.2.840.3 [id number] Univers 00:00:00 00:00:00 Triage Yousuf 93529.1.1 it y of 3.104.2.7 [place] .3.942731 Medica l .8 [place] 2021-04-14 2021-04-14 Urgent Tessa Cline 1.2.840.9 [id number] Univers 14:50:55 15:56:17 Care Provider, [facility] 72296.1.1 ity of 3.104.2.7 [place] .3.682267 Medica l .8 [place] 2021-04-14 2021-04-14 [facility] [id number] Univers 15:00:00 15:00:00 TESSA ity [facility] 2021-04-14 2021-04-14 Travel 1.2.840.1 1.2.214.815 2193 1306 Univers 00:00:00 00:00:00 05197.1.1 350.1.13.10 ity of 3.104.2.7 4.[place].7.3.698 [place].1186[place] 084.8 Med[place] l .8 [place] 2021-04-10 2021-04-10 Outpatient R DUSTIN [facility] [id number] Univers 15:45:00 15:45:00 FAHAD ity [facility] 2021-04-08 2021-04-08 Telephone Gramm, 1.2.840.9 [id number] [id number] Univers 00:00:00 00:00:00 Anni A 71051.1.1 ity of 3.104.2.7 [place] .3.319941 Medica l .8 [place] 2021-04-05 2021-04-05 Telephone Jiamie, 1.2.840.1 [id number] Univers 00:00:00 00:00:00 Fatmata 50003.1.1 ity of 3.104.2.7 [place] .3.418805 Medica l .8 [place] 2021-04-04 2021-04-04 Hospital Flip, 1.2.840.1 [id number] Univers 14:15:08 23:59:00 Encounter Warner 46094.1.1 it y of 3.104.2.7 [place] .3.476720 Medica l .8 [place] 2021-04-04 2021-04-04 [facility] [id number] Univers 00:00:00 00:00:00 WARNER adkins [facility] 2021-04-02 2021-04-02 [facility]patient [facility] [id number] Univers 19:00:00 19:00:00 RASHAD acostasarahi [facility] 2021-04-02 2021-04-02 Telephone Unknown, 1.2.840.8 [id number] Univers 00:00:00 00:00:00 Attending 71588.1.1 it y of 3.104.2.7 [place] .3.267854 Medica l [address] 2021-04-01 2021-04-01 Load Dispatcher Local Warner Castelan 1.2.840.8 [id number] Univers 11:29:36 12:10:53 Visit Lab, Chinedu Nance Pob I 06789.1.1 ity of 3.104.2.7 [place] .3.743316 Granta nahun [address] [place] [address] 2021-04-01 2021-04-01 Urgent Warner Castelan 1.2.840.1 [id number] Univers 10:41:57 11:27:05 Care Provider, [facility] 88599.1.1 ity of 3.104.2.7 [place] .3.370030 Medica nahun [address] [place] [address] 2021-04-01 2021-04-01 Outpatient [facility] [id number] Univers 11:00:00 11:00:00 WARNER adkins [facility] 2021-04-01 2021-04-01 Travel 1.2.840.1 1.2.663.618 8278 2975 Univers 00:00:00 00:00:00 63389.1.1 350.1.13.10 ity of 3.104.2.7 [place]7.3.698 [place] .3.265934 084.8 Medica l .8 [facility] 2021-03-31 2021-03-31 Patient Dustin, 1.2.840.9 [id number] Univers 00:00:00 00:00:00 Secure Msg Fahad 08025.1.1 i ty of [place] 3.104.2.7 [place] .3.048265 Medica l .8 [facility] 2021-03-30 2021-03-30 Patient Doctor 1.2.840.3 [id number] Univers 00:00:00 00:00:00 Secure Msg Unassigned, 49890.1.1 ity of [place] 3.104.2.7 [place] .3.988387 Medica l .8 [place] 2021-03-29 2021-03-29 Hospital Dustin, 1.2.840.7 [id number] [id number] Univers 07:19:00 10:10:00 Encounter Fahad 67064.1.1 it y of [place] 3.104.2.7 [place] .3.427907 Medica l .8 [facility] 2021-03-29 2021-03-29 Surgery Dustin, 1.2.840.0 [id number] 795 Univers 08:30:00 09:34:00 Fahad 63495.1.1 ity of [place] 3.104.2.7 [place] .3.721757 Medica l .8 [facility] 2021-03-29 2021-03-29 Anesthesia Juarez Muse 1.2.840.1 [id number] Univers 08:18:00 09:26:00 Event Yves East 83728.1.1 ity of 3.104.2.7 [place] .3.537825 Medica l .8 [facility] 2021-03-29 2021-03-29 Orders Doctor 1.2.840.1 [id number] Univers 00:00:00 00:00:00 Only Unassigned, 70027.1.1 ity of [place] 3.104.2.7 [place] .3.155620 Medica l .8 [place] 2021-03-28 2021-03-28 Laboratory Fahad Chan 1.2.840.3 [id number] Univers 11:31:28 11:46:28 Only Only, Adc Test 54065.1.1 ity of 3.104.2.7 [place] .3.288364 Medica l .8 [place] 2021-03-28 2021-03-28 [facility] [id number] Univers 09:30:00 09:30:00 FAHAD ity of [facility] 2021-03-28 2021-03-28 Orders Doctor 1.2.840.0 [id number] Univers 00:00:00 00:00:00 Only Unassigned, 53306.1.1 ity of [place] 3.104.2.7 [place] .3.118232 Medica l .8 [place] 2021-03-27 2021-03-27 Office Kerry, 1.2.840.7 [id number] Univers 10:47:44 11:35:25 Visit Kirk 93614.1.1 ity of 3.104.2.7 [place] .3.825961 Medica l .8 [place] 2021-03-27 2021-03-27 [facility] [id number] Univers 11:00:00 11:00:00 KIRK adkins o f [facility] 2021-03-27 2021-03-27 Travel 1.2.840.1 1.2.165.762 9897 8435 Univers 00:00:00 00:00:00 25377.1.1 350.1.13.10 ity of 3.104.2.7 4.[place].7.3.698 [place]3.899210 084.8 Medica l .8 [place] 2021-03-26 2021-03-26 Hospital Alonso, 1.2.840.8 [id number] [id number] Univers 16:54:35 23:59:00 Encounter Marisel Hogue 08030.1.1 i ty of 3.104.2.7 [place] .3.515927 Medica l .8 [place] 2021-03-26 2021-03-26 Outpatient Kathya WELCH [facility] [id number] Univers 00:00:00 00:00:00 ARIAYUKI ity of [facility] 2021-03-25 2021-03-25 Travel 1.2.840.1 1.2.699.050 3203 6909 Univers 00:00:00 00:00:00 72030.1.1 350.1.13.10 ity of 3.104.2.7 4.[place].7.3.698 [place] .3.034146 084.8 Medica l .8 [place] 2021-03-24 2021-03-24 Emergency Lennie Brito 1.2.840.8 [id number] Univers 20:01:00 22:31:00 Latia 74419.1.1 ity of 3.104.2.7 [place] .3.647238 Medica l .8 [place] 2021-03-24 2021-03-24 Travel 1.2.840.1 1.2.100.808 7275 2291 Univers 00:00:00 00:00:00 98520.1.1 350.1.13.10 ity of 3.104.2.7 4.2.7.3.698 [place]3.477890 084.8 Medica l .8 [place] 2021-03-21 2021-03-21 Office Alonso 1.2.840.8 [id number] 776 Univers 07:56:23 09:02:17 Visit Marisel Hogue 50842.1.1 ity of 3.104.2.7 [place] .3.894500 Medica l .8 [place] 2021-03-21 2021-03-21 Outpatient Kathya WELCH [facility] [id number] Univers 08:30:00 08:30:00 MARISEL ity of [facility] 2021-03-21 2021-03-21 Travel 1.2.840.1 1.2.035.606 5676 1709 Univers 00:00:00 00:00:00 88140.1.1 350.1.13.10 ity of 3.104.2.7 4.2.7.3.698 [place] .3.495249 084.8 Medica l .8 [place] 2021-03-20 2021-03-20 Patient Fausto, 1.2.840.9 [id number] Univers 00:00:00 00:00:00 Secure Msg Mohini Schaefer 92829.1.1 ity of 3.104.2.7 [place] .3.493728 Medica l .8 [place] 2021-03-20 2021-03-20 Refflores Montanez, 1.2.840.9 [id number] 8890 Univers 00:00:00 00:00:00 Pradeep 08589.1.1 ity of [place] 3.104.2.7 [place] .3.042714 Medica l .8 [place] 2021-03-20 2021-03-20 Travel 1.2.840.1 1.2.329.845 9344 2131 Univers 00:00:00 00:00:00 12622.1.1 350.1.13.10 ity of 3.104.2.7 4.2.7.3.698 [place] .3.643838 084.8 Medica l .8 [place] 2021-03-19 2021-03-19 Telephone Gramm, 1.2.840.9 [id number] [id number] Univers 00:00:00 00:00:00 Anni A 77879.1.1 ity of 3.104.2.7 [place] .3.689283 Medica l .8 [place] 2021-03-19 2021-03-19 Travel 1.2.840.1 1.2.813.429 1233 6731 Univers 00:00:00 00:00:00 69424.1.1 350.1.13.10 ity of 3.104.2.7 4.2.7.3.698 [place] .3.513492 084.8 Medica l .8 [place] 2021-03-18 2021-03-18 Office Hendrickson, 1.2.840.2 [id number] 835 [id number] Univers 08:55:10 09:32:53 Visit Doreen 81537.1.1 ity of 3.104.2.7 [place] .3.157296 Medica l .8 [place] 2021-03-18 2021-03-18 Office Dustin 1.2.840.4 [id number] 457 Univers 08:54:28 09:32:36 Visit Fahad 48572.1.1 ity of [place] 3.104.2.7 [place] .3.733411 Medica l .8 [place] 2021-03-18 2021-03-18 [facility] [id number] [facility] 09:15:00 09:15:00 FAHAD ity of [facility] 2021-03-18 2021-03-18 Travel 1.2.840.1 1.2.132.713 0021 8338 Univers 00:00:00 00:00:00 31773.1.1 350.1.13.10 ity of 3.104.2.7 4.2.7.3.698 [place] .3.300896 084.8 Medica l .8 [place] 2021-03-16 2021-03-16 [facility] [id number] [facility] 12:20:00 12:20:00 ABE ity of [facility] 2021-03-16 2021-03-16 Travel 1.2.840.1 1.2.649.379 3075 2552 Univers 00:00:00 00:00:00 41797.1.1 350.1.13.10 ity of 3.104.2.7 4.2.7.3.698 [place] .3.847379 084.8 Medica l .8 [place] 2021-03-14 2021-03-14 Load Dispatcher Local Marisel Welch 1.2.840.1 [id number] [facility] 09:20:34 09:35:34 Visit Pohiwot, Adc Lab Main 88232.1.1 ity of 3.104.2.7 [place] .3.866157 Medica l .8 [place] 2021-03-14 2021-03-14 [facility] [id number] Univers 09:00:00 09:00:00 MARISEL ity of [facility] 2021-03-14 2021-03-14 Telephone Alonso, 1.2.840.3 [id number] [id number] Univers 00:00:00 00:00:00 Marisel Hogue 09255.1.1 ity of 3.104.2.7 [place] .3.972710 Medica l .8 [facility] 2021-03-14 2021-03-14 Orders Doctor 1.2.840.2 [id number] Univers 00:00:00 00:00:00 Only Unassigned, 15006.1.1 ity of [place] 3.104.2.7 [place] .3.604290 Medica l .8 [facility] 2021-03-14 2021-03-14 Travel 1.2.840.1 1.2.432.897 8004 4994 Univers 00:00:00 00:00:00 00397.1.1 350.1.13.10 ity of 3.104.2.7 4.2.7.3.698 [place]3.748003 084.8 Medica l .8 [place] 2021-03-13 2021-03-13 Patient Jose, 1.2.840.2 [id number] Univers 00:00:00 00:00:00 Secure Msg Deyanira Yang 37577.1.1 ity of 3.104.2.7 [place] .3.499953 Medica l .8 [place] 2021-03-11 2021-03-11 Outpatient R SHARON, [facility] [id number] Univers 09:00:00 09:00:00 ANDREW ity of [facility] 2021-03-10 2021-03-10 Emergency Siegel, 1.2.840.2 [id number] [id number] Univers 16:22:00 18:08:00 Raad 78419.1.1 ity of 3.104.2.7 [place] .3.055205 Medica l .8 [place] 2021-03-10 2021-03-10 Travel 1.2.840.1 1.2.170.025 4283 2220 Univers 00:00:00 00:00:00 60861.1.1 350.1.13.10 ity of 3.104.2.7 4.2.7.3.698 [place] .3.117593 084.8 Medica l .8 [facility] 2021-03-09 2021-03-09 Telephone Hendrickson, 1.2.840.1 [id number] Univers 00:00:00 00:00:00 Doreen 77796.1.1 ity of 3.104.2.7 [place] .3.310254 Medica l .8 [facility] 2021-03-08 2021-03-08 Office Jose, 1.2.840.3 [id number] Univers 15:34:10 17:50:35 Visit Deyanira Yang 72600.1.1 ity of 3.104.2.7 [place] .3.808118 Medica l .8 [facility] 2021-03-08 2021-03-08 Outpatient R JOSE, [facility] [id number] Univers 16:00:00 16:00:00 DEYANIRA ity of [facility] 2021-03-08 2021-03-08 Transition Mey, 1.2.840.6 [id number] Univers 00:00:00 00:00:00 of Lorenzo Hardinsa Clay 29850.1.1 ity of 3.104.2.7 [place] .3.164574 Medica l .8 [facility] 2021-03-08 2021-03-08 Travel 1.2.840.1 1.2.603.992 7306 9900 Univers 00:00:00 00:00:00 55128.1.1 350.1.13.10 ity of 3.104.2.7 4.2.7.3.698 [place] .3.814302 084.8 Medica l .8 [facility] 2021-03-08 2021-03-08 Refill Lisseth, 1.2.840.9 [id number] 8358 7329 Univers 00:00:00 00:00:00 Pradeep 24397.1.1 ity of [place] 3.104.2.7 [place] .3.940521 Medica l .8 [facility] 2021-03-01 2021-03-07 [facility] Lennie Brito 1.2.840.1 [id number] Univers 15:55:00 16:20:00 Encounter Mk Qureshi 89458.1.1 ity of 3.104.2.7 [place] .3.641144 Medica l .8 [facility] 2021-03-07 2021-03-07 Telephone Barb, 1.2.840.0 [id number] Univers 00:00:00 00:00:00 Doreen 61764.1.1 ity of 3.104.2.7 [place] .3.190413 Medica l .8 [facility] 2021-03-06 2021-03-06 Anesthesia Nakul Infante 1.2.840.9 [id number] Univers 14:18:00 17:22:00 Event Yves East 07537.1.1 ity of 3.104.2.7 [place] .3.348899 Medica l .8 [facility] 2021-03-06 2021-03-06 Surgery Hendrickson, 1.2.840.6 [id number] 834 [id number] Univers 13:40:00 16:50:00 Doreen 91697.1.1 ity of 3.104.2.7 [place] .3.166227 Medica l .8 [place] 2021-03-06 2021-03-06 Outpatient R DELROY, [facility] [id number] Univers 15:00:00 15:00:00 WENTONG ity of [facility] 2021-03-05 2021-03-05 Outpatient R SHARON, [facility] [id number] Univers 11:00:00 11:00:00 ANDREW ity of [facility] 2021-03-04 2021-03-04 Telephone Delroy 1.2.840.1 [id number] Univers 00:00:00 00:00:00 Leonardo 86236.1.1 ity of 3.104.2.7 [place] .3.560359 Medica l .8 [place] 2021-03-042021-03-04 Refill Kerry, 1.2.840.6 [id number] 71573 006 Univers 00:00:00 00:00:00 Kirk 63810.1.1 ity of 3.104.2.7 [place] .3.065166 Medica l .8 [place] 2021-03-01 2021-03-01 Office Jose, 1.2.840.4 [id number] Univers 14:31:29 16:17:49 Visit Deyanira Yang 75425.1.1 ity of 3.104.2.7 [place] .3.250762 Medica l .8 [place] 2021-03-01 2021-03-01 Outpatient R JOSE [facility] [id number] Univers 14:30:00 14:30:00 DEYANIRA ity [facility] 2021-03-01 2021-03-01 Orders Doctor 1.2.840.2 [id number] Univers 00:00:00 00:00:00 Only Unassigned, 45456.1.1 ity of [place] 3.104.2.7 [place] .3.144061 Medica l .8 [place] 2021-03-01 2021-03-01 Travel 1.2.840.1 1.2.861.052 9535 3038 Univers 00:00:00 00:00:00 05456.1.1 350.1.13.10 ity of 3.104.2.7 4.2.7.3.698 [place] .3.135449 084.8 Medica l .8 [place] 2021-03-01 2021-03-01 Patient Jose, 1.2.840.7 [id number] Univers 00:00:00 00:00:00 Secure Msg Deyanira Yang 61193.1.1 ity of 3.104.2.7 [place] .3.156485 Medica l .8 [place] 2021-02-28 2021-02-28 Outpatient R YAMILETH [facility] [id number] Univers 11:10:00 11:10:00 NATANAEL ity [facility] 2021-02-28 2021-02-28 Imm/Inj Natanael Tolentino 1.2.840.1 [id number] Univers 11:02:42 11:02:50 Visit Nurse, Chinedu Pohiwot Immunization 64543.1.1 ity of 3.104.2.7 [place] .3.869644 Medica l .8 [facility] 2021-02-26 2021-02-26 Anesthesia Cruzito, 1.2.840.8 [id number] Univers 23:59:59 23:59:59 Event Yves 10145.1.1 ity of 3.104.2.7 [place] .3.481900 Medica l .8 [facility] 2021-02-25 2021-02-25 Patient Dustin, 1.2.840.9 [id number] 770 Univers 00:00:00 00:00:00 Secure Msg Fahad 31179.1.1 i ty of [place] 3.104.2.7 [place] .3.213246 Medica l .8 [facility] 2021-02-21 2021-02-21 Refill Jose, 1.2.840.4 [id number] Univers 00:00:00 00:00:00 Deyanira Yang 68588.1.1 ity of 3.104.2.7 [place] .3.036661 Medica l .8 [facility] 2021-02-20 2021-02-20 Emergency Lennie Brito 1.2.840.7 [id number] Univers 20:18:00 22:13:00 Sera Navarrete 02337.1.1 ity of 3.104.2.7 [place] .3.745601 Medica l .8 [facility] 2021-02-20 2021-02-20 Telephone Alexandro 1.2.840.3 [id number] Univers 00:00:00 00:00:00 Fernanda 11774.1.1 ity of [place] 3.104.2.7 [place] .3.042441 Medica l .8 [facility] 2021-02-20 2021-02-20 Letter Alexandro 1.2.840.3 [id number] 8314 [id number] Univers 00:00:00 00:00:00 (Out) Fernanda 64264.1.1 ity of [place] 3.104.2.7 [place] .3.753330 Medica l .8 [facility] 2021-02-20 2021-02-20 Travel 1.2.840.1 1.2.796.713 8315 7369 Univers 00:00:00 00:00:00 27383.1.1 350.1.13.10 ity of 3.104.2.7 4.2.7.3.698 [place] .3.729810 084.8 Medica l .8 [facility] 2021-02-19 2021-02-19 Refill Kerry, 1.2.840.2 [id number] 718 Univers 00:00:00 00:00:00 Qiaduy 94174.1.1 ity of 3.104.2.7 [place] .3.914942 Medica l .8 [place] 2021-02-18 2021-02-18 [facility] 1.2.840.0 [id number] 824 [id number] Univers 09:31:00 12:22:00 Encounter Fernanda 24704.1.1 it y of [place] 3.104.2.7 [place] .3.056493 Medica l .8 [facility] 2021-02-18 2021-02-18 [facility] 1.2.840.5 [id number] 8169 8705 Univers 10:45:00 11:45:00 Fernanda 64684.1.1 ity of [place] 3.104.2.7 [place] .3.387431 Medica l .8 [facility] 2021-02-18 2021-02-18 Anesthesia Ihsan Hopper 1.2.840. 1 [id number] Univers 11:03:00 11:40:00 Event Diane Lepe 03378.1.1 ity of 3.104.2.7 [place] .3.372034 Medica l .8 [facility] 2021-02-18 2021-02-18 Orders Doctor 1.2.840.4 [id number] [id number] Univers 00:00:00 00:00:00 Only Unassigned, 42932.1.1 ity of [place] 3.104.2.7 [place] .3.232207 Medica l .8 Branch 2021-02-18 2021-02-18 Telephone Sharon, 1.2.840.5 [id number] 830 [id number] Univers 00:00:00 00:00:00 Andrew 45181.1.1 ity of 3.104.2.7 [place] .3.745670 Medica l .8 [facility] 2021-02-18 2021-02-18 Travel 1.2.840.1 1.2.943.109 5394 1034 Univers 00:00:00 00:00:00 34773.1.1 350.1.13.10 ity of 3.104.2.7 4.2.7.3.698 [place] .3.543321 084.8 Medica l .8 [place] 2021-02-15 2021-02-15 Prep For Gramm, 1.2.840.5 [id number] 8300 3168 Univers 00:00:00 00:00:00 Surgery Anni A 44538.1.1 ity of 3.104.2.7 [place] .3.311789 Medica l .8 [place] 2021-02-15 2021-02-15 Patient Olea, 1.2.840.9 [id number] Univers 00:00:00 00:00:00 [place] 43359.1.1 i ty of 3.104.2.7 [place] .3.561629 Medica l .8 [place] 2021-02-14 2021-02-14 Laboratory Fernanda Mc 1.2.840.4 [id number] Univers 11:22:21 11:37:21 Only Only, Adc Test 45448.1.1 ity of 3.104.2.7 [place] .3.072026 Medica l .8 [place] 2021-02-14 2021-02-14 Outpatient Kathya MC, [facility] [id number] Univers 09:45:00 09:45:00 FERNANDA ity of [facility] 2021-02-14 2021-02-14 Telephone Dustin, 1.2.840.7 [id number] 829 [id number] Univers 00:00:00 00:00:00 Fahad 17072.1.1 ity of [place] 3.104.2.7 [place] .3.963954 Medica l .8 [facility] 2021-02-14 2021-02-14 Travel 1.2.840.1 1.2.396.209 5533 1327 Univers 00:00:00 00:00:00 95686.1.1 350.1.13.10 ity of 3.104.2.7 4.2.7.3.698 [place] .3.403586 084.8 Medica l .8 [place] 2021-02-12 2021-02-12 Hospital Isma, 1.2.840.5 [id number] Univers 07:55:41 23:59:00 [place]k 11632.1.1 it y of 3.104.2.7 [place] .3.996010 Medica l .8 [place] 2021-02-12 2021-02-12 Office [facility], 1.2.840.4 [id number] Univers 08:45:38 16:19:30 Visit Andrew 75089.1.1 ity of 3.104.2.7 [place] .3.877726 Medica l .8 [place] 2021-02-12 2021-02-12 Laboratory Shefali Westfall 1.2.840.7 [id number] Univers 12:00:00 12:15:00 Only Only, Adc Test 56518.1.1 ity of 3.104.2.7 [place] .3.135570 Medica l .8 [place] 2021-02-12 2021-02-12 Outpatient R PK OLEA [facility] 10 [id number] Univers 00:00:00 00:00:00 PK OLEA i ty of [facility] 2021-02-12 2021-02-12 Travel 1.2.840.1 1.2.590.833 [id number] Univers 00:00:00 00:00:00 76975.1.1 350.1.13.10 ity of 3.104.2.7 [place].3.698 [place] .3.945703 084.8 Medica l .8 Branch 2021-02-11 2021-02-11 Telephone Kerry, 1.2.840.2 [id number] Univers 00:00:00 00:00:00 Qiaduy 18850.1.1 ity of 3.104.2.7 [place] .3.972422 Medica l .8 Branch 2021-02-08 2021-02-08 Refill Lisseth, 1.2.840.0 [id number] Univers 00:00:00 00:00:00 Pradeep 99012.1.1 ity of [place] 3.104.2.7 [place] .3.340517 Medica l .8 [place] 2021-02-08 2021-02-08 Patient Jose, 1.2.840.0 [id number] [id number] Univers 00:00:00 00:00:00 Secure Msg Deyanira Celia 68030.1.1 ity of 3.104.2.7 [place] .3.915574 Medica l .8 [place] 2021-02-06 2021-02-06 Outpatient CARMEN MSPRISCILLA [facility] [id number] Univers 11:10:00 11:10:00 GODWIN adkins of [facility] 2021-02-06 2021-02-06 Imm/Inj Godwin Canales 1.2.840.1 [id number] Univers 10:59:13 10:59:27 Visit Nurse, Chinedu Pob Immunization 31948.1.1 ity of 3.104.2.7 [place] .3.826639 Medica l .8 [place] 2021-02-02 2021-02-02 Patient Carmen MSPRISCILLA 1.2.840.114 [id number] Univers 00:00:00 00:00:00 Outreach Godwin FERGUSON 350.1.13.10 i ty of Jose Antonio [facility] 4.2.7.2.686 Terrance s SHARITA [phone] Me dical [address] [place] 2021-01-30 2021-01-30 Telephone VAMSI Adams 1.2.840.114 [id number] Univers 00:00:00 00:00:00 Fatmata Y HEALTH 350.1.13.10 i ty of [facility] 4[facility]7.2.686 [facility] [phone] [facility] 071 Branch 2021-01-29 2021-01-29 Emergency [facility] 1.2.898.363 [id number] Univers 15:11:00 19:57:00 Janina Mena 350.1.13.10 ity of [place] [facility]7.2.[facility] [phone] [facility] 084 Branch 2021-01-29 2021-01-29 Orders Doctor RASHAD 1.2.840.114 [id number] Univers 00:00:00 00:00:00 Only Unassigned, YONY 350.1.13.10 ity of [place] [facility] 4.2.7.2.686 Casey as [phone] [facility] 009 Branch 2021-01-25 2021-01-25 Outpatient R PK OLEA [facility] 10 [id number] Univers 09:00:00 09:00:00 PK OLEA i ty of [facility] 2021-01-24 2021-01-24 Hospital Radiology [facility] 1.2.840.114 [id number] Univers 18:30:00 23:59:00 Encounter Ifeanyi 350.1.13.10 ity of [place] 4.2.7.2.686 [facility] [phone] [facility] 806 Branch 2021-01-24 2021-01-24 Outpatient R RADIOLOGY [facility] [id number] Univers 00:00:00 00:00:00 ity of [facility] 2021-01-24 2021-01-24 Xiao Garcia [facility] 1.2.840.114 [id number] Univers 00:00:00 00:00:00 (Out) Deyanira [facility] 350.1.13.10 i ty of [place] 4.2.7.2.686 [place] as Professio [phone] [place] [address] Branch [address] 2021-01-23 2021-01-23 Urgent Quinten Akers [facility] 1.2.840 .114 [id number] Univers 16:31:44 16:51:44 Care Deyanira Garcia [facility] 350.1.13.10 ity of [place] 4.2.7.2.686 [place] as Professio [phone] [place] 044 [place] Office [address] [facility] 2021-01-23 2021-01-23 Outpatient R JOSE [facility] [id number] Univers 16:20:00 16:20:00 DEYANIRA ity of [facility] 2021-01-23 2021-01-23 Orders Doctor RASHAD 1.2.840.114 [id number] Univers 00:00:00 00:00:00 Only Unassigned, YONY 350.1.13.10 ity of [facility] 4.2.7.2.686 [place] as [phone] [address] 2021-01-22 2021-01-22 Office Kerry [facility] 1.2.840.114 [id number] Univers 09:54:26 10:14:26 Visit Kirk Mena 350.1.13.10 ity [facility] 4[place] [phone] [place] 059 [facility] 2021-01-22 2021-01-22 Outpatient R KERRY [facility] [id number] Univers 10:00:00 10:00:00 KIRK adkins o f [facility] 2021-01-22 2021-01-22 Telephone Dustin [facility] 1.2.853.716 [id number] Univers 00:00:00 00:00:00 Fahad Mena 350.1.13.10 i ty of [facility] 4[place] [phone] [place] 188 [facility] 2021-01-21 2021-01-21 Outpatient R RADIOLOGY [facility] [id number] Univers 00:00:00 00:00:00 ity of [facility] 2021-01-14 2021-01-14 Outpatient R DUSTIN [facility] [id number] Univers 09:30:00 09:30:00 FAHAD ity of [facility] 2021-01-14 2021-01-14 Orders Doctor RASHAD 1.2.840.114 [id number] Univers 00:00:00 00:00:00 Only Unassigned, YONY 350.1.13.10 [facility] 4.2.7.2.686 [place] as [phone] [facility] [address] [place] 2021-01-11 2021-01-11 Office Jose, [facility] 1.2.840.114 [id number] Univers 10:55:54 11:59:52 Visit Deyanira Yang [facility] 350.1.13.10 i ty of [place] 4.2.7.2.686 Casey as Professio [phone] [address] Office [facility] 2021-01-11 2021-01-11 Load Dispatcher Local Lab, Adc Fam Pob I [facility] 1.. 840.114 [id number] Univers 11:38:21 11:58:21 Visit Jose Deyanira Yang [facility] 350.1.13.10 ity of [place] 4.2.7.2.686 Casey as Professio [phone] [address] 2021-01-11 2021-01-11 [facility] [id number] Univers 11:00:00 11:00:00 DEYANIRA adkins [facility] 2021-01-07 2021-01-07 Outpatient R DUSTIN [facility] [id number] Univers 14:30:00 14:30:00 FAHAD adkins [facility] 2021-01-03 2021-01-03 Office VAMSI Adams ..840.114 8 [id number] Univers 09:13:33 09:43:33 Visit Fatmata Mcclain [facility] 350.1.13.10 i ty of [facility] [place].2.7.2.[place] [phone] [address] 2021-01-03 2021-01-03 Outpatient R JAIMIE [facility] [id number] Univers 09:30:00 09:30:00 FATMATA adkins [facility] 2021-01-03 2021-01-03 Orders Doctor KIRKLAND 1.2.840.114 [id number] Univers 00:00:00 00:00:00 Only Unassigned, YONY 350.1.13.10 ity of [place] [facility] 4.2.7.2.686 [place] as [phone] [facility] [address] 2020-12-28 2020-12-28 Emergency Aufderheide TRAUMA 1.2.840.114 [id number] Univers 16:09:00 23:22:00 , Shari PATTERSON 350.1.13.10 it y of [place]2.7.2.[place] [phone] [facility] [address] 2020-12-28 2020-12-28 [facility] 1.2.840.114 [id number] Univers 14:00:38 16:08:00 Encounter Fahad Mcclain [facility] 350.1.13.10 ity of [facility] 4.2.7.2.[place] [phone] [facility] [address] 2020-12-28 2020-12-28 [facility] [id number] Univers 00:00:00 00:00:00 FAHAD ity of [facility] 2020-12-26 2020-12-27 Emergency [facility] 1.2.256.391 [id number] Univers 21:44:00 02:05:00 Yeny Mena 350.1.13.10 i ty of [place].2.686 [place] [phone] [facility] [address] 2020-12-26 2020-12-26 Patient [facility] 1.2.002.344 [id number] [id number] Univers 00:00:00 00:00:00 Secure Msg [facility] 350.1.13.10 ity of [place]2.[place].2.686 [place] - [phone] Med ical [facility] [address] 2020-12-26 2020-12-26 Patient [facility] 1.2.895.072 [id number] Univers 00:00:00 00:00:00 Secure Msg [facility] 350.1.13.10 ity of [place]2.[place].2.[place] - [phone] Med ical [facility] [address] 2020-12-25 2020-12-25 Hospital Norm Blood 1.2.840 .114 [id number] Univers 09:13:08 23:59:00 Encounter Outpt-Luana, Pacemaker/Icd Yony 350 .1.13.10 ity of [facility] 4.2.7.2.686 [place] as [phone] [facility] [address] 2020-12-25 2020-12-25 Outpatient R [facility] [id number] Univers 09:30:00 09:30:00 ity of [facility] 2020-12-24 2020-12-24 Office [facility] 1.2.840.114 [id number] Univers 14:35:25 15:01:22 Visit Kirk Mena 350.1.13.10 ity [facility] 4.2.7.2.686 [place] [facility] [phone] [place] dical nal 059 [facility] 2020-12-24 2020-12-24 Outpatient R KERRY [facility] [id number] Univers 14:40:00 14:40:00 QIADUY ity o f [facility] 2020-12-24 2020-12-24 Refill [facility] 1.2.840.114 [id number] Univers 00:00:00 00:00:00 Kirk Mena 350.1.13.10 ity [facility] 4.2.7.2.686 [place] [facility] [phone] [place] [address]169 [facility] 2020-12-17 2020-12-17 Outpatient R DUSTIN [facility] [id number] Univers 09:00:00 09:00:00 FAHAD ity [facility] 2020-12-15 2020-12-15 Emergency Janina Vasquez [facility] 1.2.840 .114 [id number] Univers 20:23:00 23:30:00 Luis Fernando Muro 350.1.13.10 ity of [place] 4.2.7.2.686 [place] [phone] [facility] [address] 2020-12-152020-12-15 Orders Doctor RASHAD 1.2.840.114 [id number] Univers 00:00:00 00:00:00 Only Unassigned, YONY 350.1.13.10 [facility] 4.2.7.2.686 [place] as [phone] [address] 2020-12-13 2020-12-13 Patient Potts, [facility] 1.2.840.114 [id number] Univers 00:00:00 00:00:00 Secure Msg Leonardo Mena 350.1.13.10 ity of [place].2.7.2.[place] [phone] Ky dical nal 220 [facility] 2020-12-11 2020-12-11 Patient Ashwini, [facility] 1.2.840.114 [id number] Univers 00:00:00 00:00:00 Secure Msg Renetta H [place] 350.1.13.10 ity of [place] 4.2.7.2.[place] Profess[place] [phone] Ky dical nal 220 [facility] 2020-12-11 2020-12-11 Patient Ashwini, [facility] 1.2.840.114 [id number] Univers 00:00:00 00:00:00 Secure Msg Renetta H [place] 350.1.13.10 ity of [place] 4.2.7.2.[place] Profess[place] [phone] Ky dical nal 220 [facility] 2020-12-09 2020-12-09 Refill [facility] 1.2.840.114 [id number] Univers 00:00:00 00:00:00 Jesusita PRIMARY 350.1.13.10 it y of [facility] 4.2.7.2.686 [place] [phone] [place] dical [address] [place] 2020-12-04 2020-12-04 Office Kerry, [facility] 1.2.840.114 [id number] Univers 14:36:30 15:16:58 Visit Kirk Mena 350.1.13.10 ity of [place] 4.2.7.2.686 [place] Profess[place] [phone] Ky dical nal [address] Building 2020-12-04 2020-12-04 Outpatient R KERRY, [facility] [id number] Univers 14:40:00 14:40:00 KIRK looney [facility] 2020-12-04 2020-12-04 Orders Doctor RSAHAD 1.2.840.114 [id number] Univers 00:00:00 00:00:00 Only Unassigned, YONY 350.1.13.10 ity of [place] [facility] 4.2.7.2.686 [place] as [phone] [address] 2020-12-03 2020-12-03 [facility] [id number] Univers 14:40:00 14:40:00 KIRK looney [facility] 2020-11-29 2020-11-29 [facility] 1.2.840.114 [id number] Univers 17:22:42 23:59:00 Encounter Leonardo Mena 350.1.13.10 ity [facility] 4.2.7.2.686 [facility] [phone] [facility] [address] [place] 2020-11-29 2020-11-29 [facility] [id number] Univers 00:00:00 00:00:00 LEONARDO itsarahi [facility] 2020-11-29 2020-11-29 Orders Doctor RASHAD 1.2.840.114 [id number] Univers 00:00:00 00:00:00 Only Unassigned, YONY 350.1.13.10 ity of [place] [facility] 4.2.7.2.686 [place] as [phone] [facility] [address] [place] 2020-11-29 2020-11-29 [facility] 1.2.368.946 [id number] Univers 00:00:00 00:00:00 Deyanira Lucas 350.1.13.10 i ty of [place] 4.2.7.2.686 Casey as Professio [phone] Ky dical nal [address] Office Building One 2020-11-26 2020-11-26 [facility] Andrew Herrera 1.2.840.114 [id number] Univers 14:00:00 23:59:00 Encounter Luana, Remote Device Check At [facility] 350.1.13.10 ity of [facility] 4.2.7.2.686 [place] as [phone] [address] 2020-11-26 2020-11-26 Outpatient R SHAORN [facility] [id number] Univers 14:00:00 14:00:00 ANDREW ity [facility] 2020-11-26 2020-11-26 Load Dispatcher Local 2, Adc Lab [facility] 1.2.840.114 [id number] Univers 08:19:47 08:34:47 Visit Deyanira Garcia 350.1.13.10 ity [facility] 4.2.7.2.[place] [phone] Ky dical nal 353 [facility] 2020-11-26 2020-11-26 Outpatient R [facility] [id number] Univers 08:30:00 08:30:00 ity [facility] 2020-11-21 2020-11-21 Telemedici [facility]NEW [facility] 1.2.840.114 [id number] Univers 11:56:11 16:40:39 ne Visit Deyanira A Shayy 350.1.13.10 ity [facility] 4.2.7.2.686 [place] as Professio [phone] [place] dical nal [address] [place] Office [address] One 2020-11-21 2020-11-21 Outpatient R JOSE [facility] [id number] Univers 16:00:00 16:00:00 DEYANIRA acostay [facility] 2020-11-21 2020-11-21 Office [facility] 1.2.840.114 [id number] Univers 11:27:30 12:28:43 Visit Leonardo Mena 350.1.13.10 i ty [facility] 4.2.7.2.[place] [phone] Ky dical nal 220 [facility] 2020-11-20 2020-11-20 Outpatient R SHARON [facility] [id number] Univers 08:45:00 08:45:00 ANDREW ity [facility] 2020-11-19 2020-11-19 Patient [facility] 1.2.840.114 [id number] Univers 00:00:00 00:00:00 Secure Msg Leonardo Ifeanyi 350.1.13.10 ity of [place].2.7.2.[place] Profess[place] [phone] Ky dical nal 220 [facility] 2020-11-19 2020-11-19 Telephone [facility] 1.2.564.536 [id number] Univers 00:00:00 00:00:00 Leonardo Ifeanyi 350.1.13.10 i ty of [place] 4.2.7.2.[place] Profess[place] [phone] Ky dical nal 220 [facility] 2020-11-14 2020-11-14 Emergency Evelin, [facility] 1.2.364.392 [id number] Univers 20:15:00 23:31:00 Angelinajesus Mena 350.1.13.10 i ty of [place] 4.2.7.2.686 [place] [phone] [address] 2020-11-14 2020-11-14 Nurse Nurse, [facility] Urgent Care [facility] 1.2 .840.114 [id number] Univers 20:01:47 20:02:53 Visit Quinten Akers [facility] 350.1.13.10 ity of [place] 4.2.7.2.686 [place] as Professio [phone] [place] [facility] [address] [place] Office Building One 2020-11-14 2020-11-14 Outpatient R [facility] [id number] Univers 19:40:00 19:40:00 ity of [facility] 2020-11-14 2020-11-14 Outpatient [facility] [id number] Univers 19:30:00 19:30:00 QUINTEN adkins o f [facility] 2020-11-11 2020-11-12 Emergency [facility] 1.2.840.114 [id number] Univers 20:50:00 00:06:00 Caterina Mena 350.1.13.10 i ty of [place] 4.2.7.2.686 [place] [phone] [address] 2020-11-11 2020-11-12 Emergency X NOEL, [facility] ERT [id number] Univers 20:50:00 00:06:00 CATERINA itsarahi of [facility] 2020-11-12 2020-11-12 Telephone RASHAD Dorman 1.2.007.820 [id number] Univers 00:00:00 00:00:00 Karen BHAKTA 350.1.13.10 ity of HOSPITAL 4.2.7.2.686 Casey as [phone] [facility] [address] [place] 2020-11-11 2020-11-11 Orders Doctor RASHAD 1.2.840.114 [id number] Univers 00:00:00 00:00:00 Only Unassigned, YONY 350.1.13.10 ity of [place] [facility] 4.2.7.2.686 [place] as [phone] [facility] [address] [place] 2020-11-10 2020-11-10 Refill [facility] 1.2.840.114 [id number] Univers 00:00:00 00:00:00 Leonardo Mena 350.1.13.10 i ty of [place]2.7.2.[place] Profess[place] [phone] Ky dical nal 220 [facility] 2020-11-08 2020-11-08 Office Isma [facility] 1.2.840.114 [id number] Univers 13:14:51 14:03:13 Visit Pk Mena 350.1.13.10 i ty of [place] 4.2.7.2.[place] Profess[place] [phone] Ky dical nal 085 [facility] 2020-11-08 2020-11-08 Outpatient R PK OLEA [facility] 10 [id number] Univers 13:20:00 13:20:00 PK OLEA i ty of [facility] 2020-11-01 2020-11-01 Office VAMSI Adams 1.2.840.114 [id number] Univers 07:49:36 08:19:36 Visit [facility] 350.1.13.10 i ty of CLINICS 4.2.7.2.[place] [phone] [facility] [address] [place] 2020-11-01 2020-11-01 Outpatient [facility] [id number] Univers 08:00:00 08:00:00 FATMATA ity [facility] 2020-10-25 2020-10-25 Hospital Andrew Herrera 1.2.840.114 [id number] Univers 08:45:00 23:59:00 Encounter Luana, Remote Device Check At [facility] 350.1.13.10 ity of [facility] 4.2.7.2.686 [place] as [phone] [address] 2020-10-25 2020-10-25 Outpatient [facility] [id number] Univers 08:45:00 08:45:00 ANDREW [facility] 2020-10-23 2020-10-23 Office [facility] 1.2.840.114 [id number] Univers 15:26:25 16:27:25 Visit Leonardo [place] 350.1.13.10 i ty of [place] 4.2.7.2.686 [place] Professio [phone] Ky dical nal [address] [facility] 2020-10-23 2020-10-23 Outpatient R POTTS [facility] [id number] Univers 15:30:00 15:30:00 LEONARDO [facility] 2020-10-17 2020-10-17 Refill [facility] 1.2.840.114 [id number] Univers 00:00:00 00:00:00 Jesusita PRIMARY 350.1.13.10 it y of [place] C[place] 4.2.7.2.686 [place] [phone] Ky dical [address] [place] 2020-10-17 2020-10-17 Refill [facility] 1.2.840.114 [id number] Univers 00:00:00 00:00:00 [facility] 350.1.13.10 i ty of [place] 4.2.7.2.686 [place] [phone] [facility] [address] [place] Office Building 2020-10-17 2020-10-17 [facility] 1.2.840.114 [id number] 00:00:00 00:00:00 Jesusita PRIMARY 350.1.13.10 [place] C[place] 4.2.7.2.686 PAVILLION [phone] 056 2020-10-17 2020-10-17 Refflores [facility] 1.2.840.114 [id number] 94 00:00:00 00:00:00 Qiangjun Health 350.1.13.10 [place] 4.2.7.2.686 Light [phone] Medical 059 Office Building 2020-10-09 2020-10-09 Outpatient R EDER [facility] [id number] Univers 08:00:00 08:00:00 BRENNAN ity of [facility] 2020-10-08 2020-10-08 Telephone Jaimie RASHAD 1.2.840.114 [id number] Univers 00:00:00 00:00:00 Fatmata YONY 350.1.13.10 it y of [facility] 4.2.7.2.686 [place] as [phone] [address] 2020-10-08 2020-10-08 Telephone RASHAD Adams 1.2.840.114 [id number] 00:00:00 00:00:00 Fatmata YONY 350.1.13.10 [facility] [id number] [facility] 2020-10-05 2020-10-05 Patient Luis ArmandoVAMSI phillips 1.2.840.114 7 [id number] Univers 00:00:00 00:00:00 Secure Msg Fatmata Y HEALTH 350.1.13.10 ity of CL[place] 4[place]2.7.2.[place] [phone] [address] 2020-10-05 2020-10-05 Patient NickVAMSI pat 1.2.840.114 7 [id number] 00:00:00 00:00:00 Secure Msg Fatmata Y HEALTH 350.1.13.[address] CLIN[address] 4[phone] [facility] 2020-10-03 2020-10-03 Patient Jose, [facility] 1.2.840.114 [id number] Univers 00:00:00 00:00:00 Secure Msg Deyanira A Health 350.1.13.10 ity of [place] 4.2.7.2.686 [place] as Professio [phone] Ky dical nal [address] Office Building One 2020-10-03 2020-10-03 Patient Jose, [facility] 1.2.840.114 [id number] 00:00:00 00:00:00 Secure Msg Mcmillan A Health 350.1.13.10 [place] 4.2.7.2.686 Professio [phone] nal 044 Office Building One 2020-09-28 2020-09-28 Telephone JHON Adams 1.2.840.114 [id number] Univers 00:00:00 00:00:00 Fatmata Y HEALTH 350.1.13.10 i ty of [place] 4[place]2.7.2.[place] [phone] [address] 2020-09-27 2020-09-27 Outpatient [facility] [id number] Univers 12:16:53 23:59:00 SCOOTER adkins [facility] 2020-09-27 2020-09-27 [facility] 1.2.840.114 [id number] Univers 12:16:53 23:59:00 Encounter Scooter Zapata Sarahi HEALTH 350.1.13.10 ity of [place] 4.2.7.2.[place] [phone] [facility] [address] [place] 2020-09-27 2020-09-27 Load Dispatcher Local [facility] 1.2.840.114 [id number] Univers 10:43:31 10:58:31 Visit Fatmata Adams HEALTH 350.1.13.10 ity of CL[place] 4.2.7.2.[place] [phone] [facility] [address] [place] 2020-09-27 2020-09-27 Office VAMSI Adams 1.2.840.114 7 [id number] Univers 09:21:30 10:37:53 Visit Fatmata Y HEALTH 350.1.13.10 i ty of [place] 4[place]2.7.2.[place] [phone] [address] 2020-09-27 2020-09-27 Office VAMSI Adams 1.2.840.114 7 [id number] 09:21:30 10:37:53 Visit Fatmata Y HEALTH 350.1.13.10 CLINICS 4.2.7.2.686 [id number] 071 2020-09-27 2020-09-27 Outpatient R NICKTIESHA [facility] 1029 [id number] Univers 10:00:00 10:00:00 FATMATA ity [facility] 2020-09-24 2020-09-24 [facility] Andrew Herrera 1.2.840.114 [id number] Univers 11:45:00 23:59:00 Encounter Luana Remote Device Check At [facility] 350.1.13.10 ity of [facility] 4.2.7.2.686 [place] as [phone] [address] 2020-09-24 2020-09-24 [facility] Darlin Herrera 1.2.840.114 [id number] 11:45:00 23:59:00 Encounter Andrew Bhakta 350.1.13.10 [facility] 4.2.7.2.686 [id number] [facility] 2020-09-24 2020-09-24 Outpatient [facility] [id number] Univers 11:45:00 11:45:00 [facility] 2020-09-23 2020-09-23 Refill [facility] 1.2.840.114 [id number] Univers 00:00:00 00:00:00 Jesusita PRIMARY 350.1.13.10 it y of [facility] 4.2.7.2.686 [place] [phone] Me dical [address] [place] 2020-09-21 2020-09-21 Telephone [facility]NEW [facility] 1.2.951.730 [id number] Univers 00:00:00 00:00:00 Deyanira A Health 350.1.13.10 i ty of [place] 4.2.7.2.686 Casey as Renee [phone] Me dical nal [address] [place] Office Building One 2020-09-17 2020-09-17 Outpatient R [facility] [id number] Univers 11:00:00 11:00:00 ity [facility] 2020-09-17 2020-09-17 Load Dispatcher Local 2, Adc Lab [facility] 1.2.840.114 [id number] Univers 08:27:45 08:42:45 Visit Jose Deyanira Mena 350.1.13.10 ity of [place].2.[place] [phone] Ky dicfrankie nal 353 [facility] 2020-09-14 2020-09-14 Letter Unknown, [facility] 1.2.840.114 [id number] Univers 00:00:00 00:00:00 (Out) Attending SPECIALTY 350.1.13.10 ity of [place].2.7.2.[place] CENTER AT [phone] Ky jae BRUNO 072 [facility] 2020-09-12 2020-09-12 Emergency Siegel, [facility] 1.2.660.702 [id number] Univers 11:34:00 13:38:00 Raad Mataton 350.1.13.10 i ty of [place] 4.2.7.2.686 [place] [phone] [facility] [address] [place] 2020-09-03 2020-09-03 Telephone Jose, [facility] 1.2.879.505 [id number] Univers 00:00:00 00:00:00 Deyanira Yang Health 350.1.13.10 i ty of Ifeanyi 4.2.7.2.686 [place] as Professio [phone] [facility] nal [address] [place] [address] [facility] One 2020-08-30 2020-08-30 Refflores Montanez [facility] 1.2.840.114 [id number] Univers 00:00:00 00:00:00 Pradeep Mena 350.1.13.10 i ty of [place] 4.2.7.2.[place] Profess[place] [phone] Ky dical nal 044 [facility] 2020-08-30 2020-08-30 Refflores Espitia [facility] 1.2.840.114 [id number] Univers 00:00:00 00:00:00 [facility] Health 350.1.13.10 i ty of [place].2.7.2.686 [place] [phone] [facility] Medical [address] [place] [address] [facility] 2020-08-24 2020-08-24 Load Dispatcher Local Lab, Adc Fam Pob I [facility] 1.2. 840.114 [id number] Univers 10:01:47 10:11:47 Visit Deyanira Garcia Health 350.1.13.10 ity of [place] 4.2.7.2.686 [place] as Professio [phone] [address] Office [facility] 2020-08-24 2020-08-24 Office [facility] 1.2.840.114 [id number] Univers 08:51:52 10:01:54 Visit Deyanira Yang Health 350.1.13.10 i ty of [place] 4.2.7.2.686 [place] as Professio [phone] [address] Office [facility] 2020-08-24 2020-08-24 [facility] [id number] Univers 09:00:00 09:00:00 DEYANIRA ity [facility] 2020-08-23 2020-08-23 Hospital Andrew Herrera 1.2.840.114 [id number] Univers 11:00:00 23:59:00 Encounter Luana, Remote Device Check At [facility] 350.1.13.10 ity [facility] 4.2.7.2.686 [place] as [phone] [address] 2020-08-23 2020-08-23 Outpatient R SHARON [facility] [id number] Univers 11:00:00 11:00:00 ANDREW ity [facility] 2020-08-14 2020-08-14 [facility] [id number] Univers 00:00:00 00:00:00 Secure Msg Deyanira Mena [id number] [place] [phone] [address] 2020-08-07 2020-08-07 Outpatient R DELROY [facility] [id number] Univers 09:00:00 09:00:00 MOISÉSONG ity [facility] 2020-08-03 2020-08-03 Patient Fellow, [facility] [id number] Univers 00:00:00 00:00:00 Secure Msg Pulmonary [facility] [id number] [facility] [facility] [id number] [phone] [facility] [address] [place] 2020-08-01 2020-08-01 Outpatient R KERRY, [facility] [id number] Univers 15:40:00 15:40:00 KIRK adkins o f [facility] 2020-08-01 2020-08-01 Office Kerry, [facility] 1.2.840.114 [id number] Univers 12:59:20 13:26:36 Visit Kirk [place] 350.1.13.10 ity [facility] [phone] [place] 059 [facility] 2020-08-01 2020-08-01 Outpatient R KERRY, [facility] [id number] Univers 13:00:00 13:00:00 KIRK jed o f [facility] 2020-07-30 2020-07-30 Urgent Provider, [facility] 1.2.840.114 [id number] Univers 15:06:48 15:51:54 Care [facility] [id number] ity [facility] [id number] [place] Profess[place] [phone] [place] [address] [place] [address] [facility] 2020-07-30 2020-07-30 Outpatient R [facility] [id number] Univers 15:20:00 15:20:00 TESSA ity [facility] 2020-07-25 2020-07-25 Kenton Montanez [facility] 1.2.840.114 [id number] Univers 00:00:00 00:00:00 Pradeep Mena 350.1.13.10 i ty [place] [phone] [place] [facility]44 [facility] Center 2020-07-23 2020-07-23 Hospital Andrew Herrera 1.2.840.114 [id number] Univers 11:00:00 23:59:00 Encounter Luana, Remote Device Check At [facility] 350.1.13.10 ity of [facility] 4.2.7.2.686 [place] as [phone] [address] 2020-07-23 2020-07-23 Outpatient R SHARON [facility] [id number] Univers 11:00:00 11:00:00 ANDREW ity of [facility] 2020-07-21 2020-07-21 Urgent Provider, [facility] 1.2.840.114 [id number] Univers 11:52:39 12:39:22 Care Warner Castelan 350.1.13.10 ity of [place] 4.2.7.2.686 Casey as Professio [phone] [place] dical nal [address] [place] [address] One 2020-07-21 2020-07-21 Outpatient R [facility] [id number] Univers 12:00:00 12:00:00 ity of [facility] 2020-07-18 2020-07-18 Telephone RASHAD Figueroa 1.2.840.114 [id number] Univers 00:00:00 00:00:00 Ashly BHAKTA 350.1.13.10 i ty of [facility] 4.2.7.2.686 Casey as [phone] [address] 2020-07-18 2020-07-18 Nurse RASHAD Rose 1.2.840.114 [id number] Univers 00:00:00 00:00:00 Triage Genesis BHAKTA 350.1.13.10 i ty of [facility] 4.2.7.2.686 [place] as [phone] [address] 2020-07-06 2020-07-06 Office Isma [facility] 1.2.840.114 [id number] Univers 13:14:33 13:52:58 Visit Pk Mena 350.1.13.10 i ty of [place] [phone] Ky dical nal 085 [facility] 2020-07-06 2020-07-06 Outpatient R PK OLEA [facility] 10 [id number] Univers 13:20:00 13:20:00 PK OLEA i ty of [facility] 2020-06-26 2020-06-26 Office Kerry [facility] 1.2.840.114 [id number] Univers 10:36:03 11:38:39 Visit Kirk Mena 350.1.13.10 ity of [place] [phone] Ky dical nal 059 [facility] 2020-06-26 2020-06-26 Outpatient R KERRY [facility] [id number] Univers 10:40:00 10:40:00 KIRK ity o f [facility] 2020-06-22 2020-06-22 Hospital Sharon, Andrew Saeed 1.2.840.114 [id number] Univers 12:30:00 23:59:00 Encounter Luana, Remote Device Check At [facility] 350.1.13.10 ity of [facility] 4.2.7.2.686 [place] as [phone] [address] 2020-06-22 2020-06-22 [facility] [id number] Univers 12:30:00 12:30:00 ANDREW [facility] 2020-06-07 2020-06-07 [facility]ores [facility] 1.2.840.114 [id number] Univers 00:00:00 00:00:00 [facility] 350.1.13.10 it y of [place] 4.2.7.2.686 Casey as Professio [phone] [facility] [address] [place] [address] [facility] One 2020-06-04 2020-06-04 Office [facility] 1.2.840.114 [id number] Univers 11:14:12 11:34:21 Visit Pradeep Mena 350.1.13.10 i ty of [place].2.[place] [phone] Ky dical nal 044 [facility] 2020-06-04 2020-06-04 [facility] [id number] Univers 11:30:00 11:30:00 PRADEEP [facility] 2020-05-30 2020-05-30 Telemedici [facility] 1.2.840.114 [id number] Univers 09:17:02 09:47:02 ne Visit Bibiana Mena 350.1.13.10 ity of [place].7.2.[place] [phone] Ky dical nal 085 [facility] 2020-05-30 2020-05-30 Load Dispatcher Local 2, Adc Lab [facility] 1.2.840.114 [id number] Univers 09:02:39 09:17:39 Visit Raghavendra Urbina 350.1.13. 10 ity of [place] 4.2.7.2.[place] [phone] Ky dicwa nal 353 [facility] 2020-05-30 2020-05-30 Outpatient R BIBIANA GREGORY [facility] [id number] Univers 09:00:00 09:00:00 BIBIANA [facility] 2020-05-30 2020-05-30 Patient Doctor [facility] 1.2.840.114 [id number] Univers 00:00:00 00:00:00 Secure Msg [facility] 350.1.13.10 ity of [place] Ifeanyi 4.2.7.2.686 Casey as Professio [phone] [facility] [address] [place] [facility] One 2020-05-29 2020-05-29 Refill Kerry, [facility] 1.2.840.114 [id number] Univers 00:00:00 00:00:00 [facility] 350.1.13.10 i ty of [place]2.[place].2.686 [place] [phone] [facility] [address] Building 2020-05-25 2020-05-25 Patient Henry [facility] 1.2.840.114 [id number] Univers 00:00:00 00:00:00 Secure Msg Ashly Ifeanyi 350.1.13.10 ity of [place]2.[place].2.[place] [phone] [facility] 044 [facility] 2020-05-23 2020-05-23 Outpatient Kathya MONTANEZ [facility] [id number] Univers 16:15:00 16:15:00 PRADEEP ity [facility] 2020-05-22 2020-05-22 Hospital Andrew Herrera 1.2.840.114 [id number] Univers 10:15:00 23:59:00 Encounter Luana, Remote Device Check At [facility] 350.1.13.10 ity of Hospital 4.2.7.2.686 [place] as [phone] [facility] [address] [place] 2020-05-22 2020-05-22 Outpatient R SHARON, [facility] [id number] Univers 10:15:00 10:15:00 ANDREW ity of [facility] 2020-05-20 2020-05-20 Kenton Herndon [facility] 1.2.840.114 [id number] Univers 00:00:00 00:00:00 [facility] 350.1.13.10 it y of [place] 4.2.7.2.686 Casey as Renee [phone] Ky dical [facility] [address] [place] [address] One 2020-05-11 2020-05-11 Outpatient R LISSETH [facility] [id number] Univers 14:30:00 14:30:00 PRADEEP ity of [facility] 2020-05-11 2020-05-11 Patient Doctor RASHAD Calderon2.840.114 [id number] Univers 00:00:00 00:00:00 Secure Msg Unassigned, YONY 350.1.13.10 ity of [place] [facility] 4.2.7.2.686 Casey as [phone] [address] 2020-05-11 2020-05-11 Patient Doctor RASHAD Calderon2.840.114 [id number] Univers 00:00:00 00:00:00 Secure Msg Unassigned, YONY 350.1.13.10 ity of [place] [facility] 4.2.7.2.686 Casey as [phone] [address] 2020-05-10 2020-05-10 Patient Doctor RASHAD Calderon2.840.114 [id number] Univers 00:00:00 00:00:00 Secure Msg Unassigned, YONY 350.1.13.10 ity of [place] [facility] 4.2.7.2.686 Casey as [phone] [address] 2020-05-10 2020-05-10 Patient Doctor RASHAD Calderon2.840.114 [id number] Univers 00:00:00 00:00:00 Secure Msg Unassigned, YONY 350.1.13.10 ity of [place] [facility] 4.2.7.2.686 Casey as [phone] [facility] [address] [place] 2020-04-26 2020-04-26 [facility] 1.2.840.114 [id number] Univers 00:00:00 00:00:00 Jesusita PRIMARY 350.1.13.10 it y of [facility] 4.2.7.2.686 [place] [phone] [place] dical [address] [place] 2020-04-23 2020-04-23 Hospital Sharon, [facility] Dalrin 1.2.840.114 [id number] Univers 09:30:00 23:59:00 Encounter Luana, Remote Device Check At [facility] 350.1.13.10 ity of [facility] 4.2.7.2.686 Casey as [phone] [facility] [address] [place] 2020-04-23 2020-04-23 Out[facility] [id number] Univers 09:30:00 09:30:00 [facility] 2020-04-23 2020-04-23 [facility] 1.2.840.114 [id number] Univers 00:00:00 00:00:00 Secure Msg Leonardo Mena 350.1.13.10 ity of [place].2.7.2.[place] [phone] Ky dical nal 220 [facility] 2020-04-23 2020-04-23 Patient [facility] 1.2.840.114 [id number] Univers 00:00:00 00:00:00 Secure Msg Pradeep Mena 350.1.13.10 ity of [place].2.7.2.[place] [phone] [place] dical nal 044 [facility] 2020-04-20 2020-04-20 Emergency X [facility] ERT [id number] Univers 13:26:30 14:42:00 [facility] 2020-04-20 2020-04-20 Emergency [facility] 1.2.646.002 [id number] Univers 13:26:30 14:42:00 Raad Mena 350.1.13.10 i ty of [place] 4.2.7.2.686 [place] [phone] [facility] [address] [place] 2020-04-18 2020-04-18 Load Dispatcher Local 2, Adc Lab [facility] 1.2.840.114 [id number] Univers 16:02:26 16:17:26 Visit LissethPradeep Edrissa Ifeanyi 350.1.1 3.10 ity of [place]2.7.2.686 [place] [phone] Ky dical nal 353 [facility] 2020-04-18 2020-04-18 Office [facility] 1.2.840.114 [id number] Univers 15:38:51 15:53:51 Visit Pradeep Mena 350.1.13.10 i ty of [place] 4.2.7.2.686 [place] [phone] Ky dical nal 044 [facility] 2020-04-18 2020-04-18 Outpatient R LISSETH [facility] [id number] Univers 15:45:00 15:45:00 PRADEEP adkins [facility] 2020-04-18 2020-04-18 Orders Doctor RASHAD 1.2.840.114 [id number] Univers 00:00:00 00:00:00 Only Unassigned, YONY 350.1.13.10 ity of [place] [facility] 4.2.7.2.686 Casey as [phone] [facility] [address] [place] 2020-04-17 2020-04-17 Patient Meier [facility] 1.2.840.114 [id number] Univers 00:00:00 00:00:00 Secure [facility] 350.1.13.10 ity of [place] 4.2.7.2.686 [place] a Light [phone] [facility] [address] 2020-04-16 2020-04-16 Nurse RASHAD Dorman 1.2.840.114 [id number] Univers 00:00:00 00:00:00 Triage Karen M YONY 350.1.13.10 ity of HOSPITAL 4.2.7.2.686 [place] as [phone] Medi [address] 2020-04-12 2020-04-12 Patient Doctor RASHAD 1.2.840.114 [id number] Univers 00:00:00 00:00:00 Secure Msg Unassigned, YONY 350.1.13.10 ity of [place] [facility] 4.2.7.2.686 Casey as [phone] [address] 2020-04-11 2020-04-11 Telemedici [facility] 1.2.840.114 [id number] Univers 07:50:45 13:32:34 ne Visit [facility] 350.1.13.10 i ty of [place] 4.2.7.2.686 [facility] [phone] [address] 2020-04-11 2020-04-11 Outpatient Kathya MEIER [facility] [id number] Univers 10:30:00 10:30:00 [facility] 2020-04-11 2020-04-11 Patient Doctor RASHAD 1.2.840.114 [id number] Univers 00:00:00 00:00:00 Secure Msg Unassigned, YONY 350.1.13.10 ity of [place] [facility] 4.2.7.2.686 Casey as [phone] [address] 2020-04-03 2020-04-03 Outpatient Kathya MONTANEZ [facility] [id number] Univers 16:00:00 16:00:00 PRADEEP adkins [facility] 2020-04-03 2020-04-03 [facility] .2.840.114 [id number] Univers 08:21:32 08:36:32 ne Visit Pradeep Mena 350.1.13.10 ity of [place] 4.2.7.2.[place] [phone] Ky dical [address] 2020-04-02 2020-04-02 Outpatient Kathya MONTANEZ [facility] [id number] Univers 15:15:00 15:15:00 PRADEEP adkins [facility] 2020-04-02 2020-04-02 Transition Dania Gibbs 1.2.840.114 [id number] Univers 00:00:00 00:00:00 of Lorenzo Mckennay 350.1.13.10 it y of [place] 4.2.7.2.686 [place] [phone] [facility] [address] 2020-04-02 2020-04-02 Patient Hardeep [facility] 1.2.840.114 [id number] Univers 00:00:00 00:00:00 Secure Ms [facility] 350.1.13.10 ity of [place] 4.2.7.2.686 [place] [phone] [facility] [address] 2020-03-26 2020-03-30 Hospital Andrei Hall 1.2.840.114 [id number] Univers 07:58:00 11:00:00 Encounter S Yony 350.1.13.10 ity of [facility] 4.2.7.2.686 Casey as [phone] [place] [address] [place] 2020-03-30 2020-03-30 Telephone [facility] 1.2.840.114 [id number] Univers 00:00:00 00:00:00 [facility] 350.1.13.10 i ty of [place] 4.2.7.2.686 Casey as Professio [phone] [facility] 044 [facility] 2020-03-30 2020-03-30 Telephone [facility] 1.2.840.114 [id number] Univers 00:00:00 00:00:00 [facility] 350.1.13.10 i ty of [place] 4.2.7.2.686 Casey as Professio [phone] [facility] 044 [facility] 2020-03-23 2020-03-23 Laboratory Nurse, [facility] General Surgery [facility] 1.2.840.114 [id number] Univers 08:56:33 09:47:31 Only Unknown, Attending Ifeanyi 350.1.13.1 0 ity of [place]2.7.2.[place] [phone] [facility] 377 [facility] 2020-03-23 2020-03-23 Outpatient R UNKNOWN, [facility] [id number] Univers 09:15:00 09:15:00 ATTENDING ity of [facility] 2020-03-23 2020-03-23 Telephone Andrei Hall [facility] 1.2.840.114 [id number] Univers 00:00:00 00:00:00 S Ifeanyi 350.1.13.10 i ty of [place] 4.2.7.2.686 [place] Surgical [phone] [facility] [address] [place] 2020-03-22 2020-03-22 Patient Henry [facility] 1.2.840.114 [id number] Univers 00:00:00 00:00:00 Secure Msg [facility] 350.1.13.10 ity of [place] 4.2.7.2.686 [place] as Professio [phone] [address] Office Building One 2020-03-14 2020-03-14 Outpatient R LISSETH [facility] [id number] 6741 [facility] 11:15:00 11:15:00 PRADEEP ity of [facility] 2020-03-14 2020-03-14 Telemedici [facility] 1.2.840.114 [id number] Univers 08:22:33 08:37:33 ne Visit Pradeep Ifeanyi 350.1.13.10 ity of [place] 4.2.7.2.686 [place] [phone] [address] 2020-03-06 2020-03-06 Patient Doctor RASHAD 1.2.840.114 [id number] Univers 00:00:00 00:00:00 Secure Msg Unassigned, YONY 350.1.13.10 ity of [facility] 4.2.7.2.686 Casey as [phone] [address] 2020-03-02 2020-03-02 Outpatient R PK OLEA [facility] [id number] Univers 13:20:00 13:20:00 PK OLEA i ty of [facility] 2020-03-02 2020-03-02 Telemedici [facility] 1.2.840.114 [id number] Univers 08:18:56 08:38:56 ne Visit Pk Mena 350.1.13.10 ity of [place] 4.2.7.2.686 [place] [phone] Ky dical nal 085 [facility] 2020-03-02 2020-03-02 Patient Doctor [place] 1.2.840.114 [id number] Univers 00:00:00 00:00:00 Secure Msg Unassigned, Health 350.1.13.10 ity of [place] 4.2.7.2.686 Casey as Professio [phone] [place] dicwa nal [address] [place] Office [facility] 2020-02-25 2020-02-25 Refill Doctor [facility] 1.2.840.114 [id number] Univers 00:00:00 00:00:00 Unassigned, Health 350.1.13.10 ity of [place] 4.2.7.2.686 Casey as Professio [phone] Ky dicwa nal 044 [facility] 2020-02-23 2020-02-23 Patient Kerry, [facility] 1.2.840.114 [id number] Univers 00:00:00 00:00:00 Secure Msg [facility] 350.1.13.10 ity of [place]2.7.2.686 [place] [phone] [facility] [address] 2020-02-20 2020-02-20 Hospital Andrew Herrera 1.2.840.114 [id number] Univers 11:45:00 23:59:00 Encounter Luana, Remote Device Check At [facility] - [place] 350.1.13.10 ity of Hospital 4.2.7.2.686 Casey as [phone] [facility] [address] 2020-02-20 2020-02-20 Outpatient R SHARON [facility] [id number] Univers 11:45:00 11:45:00 ANDREW ity of [facility] 2020-02-20 2020-02-20 Outpatient R ANDREI HALL [facility] [id number] Univers 08:30:00 08:30:00 ity of [facility] 2020-02-20 2020-02-20 Telephone Outpatient, Darlin 1.2.840.114 [id number] Univers 00:00:00 00:00:00 Pm/Icd Yony 350.1.13.10 it y of Check Hospital 4.2.7.2.686 [place] as [phone] [facility] [address] [place] 2020-02-18 2020-02-18 Patient Doctor RASHAD 1.2.840.114 [id number] Univers 00:00:00 00:00:00 Secure Msg Unassigned, YONY 350.1.13.10 ity of [place] [facility] 4.2.7.2.686 Casey as [phone] [facility] [address] [place] 2020-02-17 2020-02-17 Telephone [facility] 1.2.408.044 [id number] Univers 00:00:00 00:00:00 Deyanira A Health 350.1.13.10 i ty of [place] 4.2.7.2.686 Casey as Professio [phone] [place] dicwa nal [address] [place] Office Building [facility] 2020-02-15 2020-02-15 Emergency X PARADISE [facility] ERT [id number] Univers 17:43:15 23:45:00 SERA adkins [facility] 2020-02-15 2020-02-15 Emergency Robbin Raad [facility] 1.2.840. 114 [id number] Univers 17:43:15 23:45:00 Sera Navarrete S [place] 350.1.13.10 ity of [place] 4.2.7.2.686 [place] [phone] [facility] [address] [place] 2020-02-15 2020-02-15 Urgent Pob1, Acute Care Clinic [facility] 1. 2.840.114 [id number] Univers 16:09:54 18:06:11 Care Deyanira Garcia Health 350.1.13.10 ity of [place] 4.2.7.2.686 Casey as Professio [phone] [place] dical nal [address] [place] Office Building One 2020-02-15 2020-02-15 Outpatient R JOSE [facility] [id number] Univers 16:20:00 16:20:00 DEYANIRA adkins [facility] 2020-02-15 2020-02-15 Telephone Pob1, Acute [facility] 1.2.840.114 [id number] Univers 00:00:00 00:00:00 Care Clinic Health 350.1.13.10 ity of [place] 4.2.7.2.686 Casey as Professio [phone] Ky dical nal 044 [facility] 2020-02-13 2020-02-13 Telephone [facility] 1.2.586.600 [id number] Univers 00:00:00 00:00:00 Moi Health 350.1.13.10 it y of [place] 4.2.7.2.686 [facility] [phone] [facility] 092 [facility] 2020-02-13 2020-02-13 Telephone [facility] 1.2.840.114 [id number] Univers 00:00:00 00:00:00 Ashly Health 350.1.13.10 i ty of [place] 4.2.7.2.686 Casey as Professio [phone] Ky dical nal 044 [facility] 2020-02-06 2020-02-06 Office [facility] 1.2.840.114 [id number] Univers 10:34:42 11:41:24 Visit Kirk [place] 350.1.13.10 ity of [place] 4.2.7.2.[place] [phone] Ky dicwa nal 059 [facility] 2020-02-06 2020-02-06 Outpatient R KERRY [facility] [id number] Univers 10:40:00 10:40:00 GINNYEJRODGER ity o f [facility] 2020-01-31 2020-01-31 [facility] 1.2.840.114 [id number] Univers 08:35:00 23:59:00 Encounter Moi [place] 350.1.13.10 ity of [place] 4.2.7.2.686 [facility] [phone] [facility] [address] [place] 2020-01-31 2020-01-31 Office [facility] 1.2.840.114 [id number] Univers 15:16:13 16:25:57 Visit Leonardo Mena 350.1.13.10 i ty of [place] 4[place].7.2.[place] [phone] Ky dical nal 220 [facility] 2020-01-31 2020-01-31 Outpatient R HARDEEP, [facility] [id number] Univers 00:00:00 00:00:00 MOI ity of [facility] 2020-01-23 2020-01-23 Outpatient R SEAN, [facility] [id number] Univers 10:40:00 10:40:00 CHIDI ity of [facility] 2020-01-19 2020-01-19 Hospital Sharon, Andrew Saeed 1.2.840.114 [id number] Univers 08:00:00 23:59:00 Encounter Luana, Remote Device Check At [facility] 350.1.13.10 ity of Hospital 4.2.7.2.686 Casey as [phone] [facility] [address] [place] 2020-01-19 2020-01-19 Outpatient R SHARON, [facility] [id number] Univers 08:00:00 08:00:00 ANDREW ity [facility] 2020-01-18 2020-01-18 Office Hardeep, [facility] 1.2.840.114 [id number] Univers 11:05:39 16:04:28 Visit Moi Health 350.1.13.10 it y of [place] 4.2.7.2.686 [place] a Light [phone] [facility] [address] [place] Office Building 2020-01-18 2020-01-18 Outpatient R HARDEEP, [facility] [id number] Univers 12:00:00 12:00:00 MOI ity of [facility] 2020-01-13 2020-01-13 Patient Doctor [facility] 1.2.840.114 [id number] Univers 00:00:00 00:00:00 Secure Msg Unassigned, Health 350.1.13.10 ity of [place] 4.2.7.2.686 Casey as Professio [phone] [place] dical nal [address] [place] [address] One 2020-01-12 2020-01-12 Orders Doctor RASHAD 1.2.840.114 [id number] Univers 00:00:00 00:00:00 Only Unassigned, YONY 350.1.13.10 ity of [place] [facility] 4.2.7.2.686 Casey as [phone] [facility] [address] 2020-01-04 2020-01-04 Telephone Henry [facility] 1.2.840.114 [id number] Univers 00:00:00 00:00:00 Ashly Health 350.1.13.10 i ty of [place] 4.2.7.2.686 Casey as Professio [phone] [place] dicwa nal [address] [place] [address] [facility] One 2020-01-02 2020-01-02 Office [facility] 1.2.840.114 [id number] Univers 14:46:44 15:26:44 Visit Ashly Health 350.1.13.10 i ty of [place] 4.2.7.2.686 Casey as Professio [phone] [facility] nal [address] [place] [address] One 2019-12-27 2019-12-27 Transition Dania Tar[place] 1.2.840.114 [id number] Univers 00:00:00 00:00:00 of Care Dat Yang Mcclelland 350.1.13.10 ity of [place] 4.2.7.2.686 [place] [phone] [facility] [address] 2019-12-25 2019-12-26 Hospital Darlin Swanson 1.2.840.114 [id number] Univers 02:07:31 16:35:00 Encounter Julio Yony 350.1.13.10 ity of Hospital 4.2.7.2.686 Casey as [phone] [facility] [address] [place] 2019-12-13 2019-12-13 [facility] [id number] Univers 00:00:00 00:00:00 Secure Msg [facility] [id number] ity of [place] [id number] [place] Professio [phone] [place] [address] [place] [address] [facility] 2019-12-10 2019-12-10 [facility]phone [facility] [id number] Univers 00:00:00 00:00:00 Deyanira [facility] [id number] i ty of [place] [id number] [place] Professio [phone] [place] 044 [facility] One 2019-12-09 2019-12-09 Refill Henry, [facility] 1.2.840.114 [id number] Univers 00:00:00 00:00:00 [facility] [id number] i ty of [place] [id number] [place] Professio [phone] [place] [facility] 044 [facility] One 2019-12-07 2019-12-07 Office [facility] 1.2.840.114 [id number] Univers 11:11:56 11:48:53 Visit Kirk [place] 350.1.13.10 ity of [place].2.[place] Profess[place] [phone] [place] 059 [facility] 2019-12-06 2019-12-06 Office [facility] 1.2.840.114 [id number] Univers 11:01:39 13:47:23 Visit [facility] [id number] i ty of [place] [id number] [place] Professio [phone] [place] 044 [facility] One 2019-12-02 2019-12-02 Telephone [place] [facility] 1.2.840.114 [id number] Univers 00:00:00 00:00:00 [facility] 350.1.13.10 i ty of [place] 4.2.7.2.686 [place] as Professio [phone] [address] One 2019-11-19 2019-11-20 Emergency X ROBBIN [facility] ERT [id number] Univers 21:13:32 00:53:00 RAAD ity of [facility] 2019-11-18 2019-11-18 Patient Doctor [facility] 1.2.840.114 [id number] Univers 00:00:00 00:00:00 Secure Msg Unassigned, [facility] 350.1.13.10 ity of [place] 4.2.7.2.686 [place] as Professio [phone] [place] [address] One 2019-08-05 2019-08-05 Load Dispatcher Local 1, Adc Lab [facility] 1.2.840.114 [id number] Univers 07:27:44 07:42:44 Visit Leonardo Potts 350.1.13.10 ity of [place] [phone] [facility] [address] 2019-08-02 2019-08-02 Office Delroy [facility] 1.2.840.114 [id number] Univers 15:21:27 15:48:38 Visit Leonardo Mena 350.1.13.10 i ty of [place] [phone] [place]ical n[place] [address] Building 2019-07-18 2019-07-18 [facility] Andrew Herrera 1.2.840.114 [id number] Univers 14:00:00 23:59:00 Encounter Luana, Remote Device Check At [facility] Yony 350.1.13.10 ity of [place] [address]186.2.7.2.686 [place] as [phone] [facility] [address] 2019-07-14 2019-07-14 [facility] 1.2.840.114 [id number] Univers 07:48:00 08:45:00 Encounter Shefali Mena 350.1.13.10 ity of [place].2.[place] [phone] [place] 881531 Branch 2019-06-30 2019-06-30 [facility] 1.2.840.114 [id number] Univers 07:44:00 10:33:00 Encounter Shefali Mena 350.1.13.10 ity of [place] [phone] [place] [address] [address] 2019-06-30 2019-06-30 Orders Doctor RASHAD 1.2.840.114 [id number] Univers 00:00:00 00:00:00 Only Unassigned, YONY 350.1.13.10 ity of [place] [facility] 4.2.7.2.686 [place] as [phone] [facility] [address] 2019-06-21 2019-06-21 Load Dispatcher Local 1, Adc Lab [facility] 1.2.840.114 [id number] Univers 10:56:48 11:11:48 Visit Shefali Garcia 350.1.1 3.10 ity of [place] [phone] [facility] [address] 2019-06-21 2019-06-21 Orders Doctor RASHAD 1.2.840.114 [id number] Univers 00:00:00 00:00:00 Only Unassigned, YONY 350.1.13.10 ity of [place] [facility] 4.2.7.2.686 [place] as [phone] [facility] [address] 2019-06-20 2019-06-20 Office Henry [facility] 1.2.840.114 [id number] [facility] 12:05:08 12:50:36 Visit [facility] 350.1.13.10 i ty of [place] 4.2.7.2.686 [place]enee [phone] [place] dical [facility] [address] [place] [address] [facility] One 2016-06-26 2016-06-26 Outpatient MHIE MHIE [id number] Memoria 10:30:00 10:30:00 02 nahun Leroy 2016-06-26 2016-06-26 Outpatient MHIE MHIE [id number] Memoria 10:30:00 10:30:00 02 nahun Leroy 2016-04-02 2016-04-02 Outpatient MHIE MHIE [id number] Memoria 11:00:00 11:00:00 01 nahun Leroy 2016-04-02 2016-04-02 Outpatient MHIE MHIE [id number] [facility] 11:00:00 11:00:00 [place] 2015-08-21 2015-08-22 Outpatient [facility] 3771 [id number] Memoria 17:47:00 04:59:00 r Rad 72 [facility] 2015-08-21 2015-08-22 Outpatient [facility] 3771 [id number] Memoria 17:47:00 04:59:00 r Rad 72 [facility] 2015-08-21 2015-08-21 Outpatient Shweta, MHSE MHSE [id number] 12:47:00 23:59:00 Evan Mandujano 2015-07-24 2015-07-24 Outpatient MHIE MHIE [id number] Memoria 09:00:00 09:00:00 00 nahun Leroy 2015-07-24 2015-07-24 Outpatient [facility] [id number] Memoria 09:00:00 09:00:00 00 nahun [place] 2015-05-22 2015-05-[address] [facility] [id number] Memoria 01:12:00 04:29:00 Emergency r Rad 00 l [facility] 2015-05-22 2015-05-[address] [facility] [id number] Memoria 01:12:00 04:29:00 Emergency r [place] 00 l [facility] 2015-05-21 2015-05-21 Outpatient [place], 2.16.840. 2.16.840.1. [id number] 20:12:00 23:29:00 [place] [id number]. [id number] 00 3.615.0.1 5.0.101 01 Results Test Description Test Time Test Comments Results Result Comments Source POCT GLUCOSE (AUTOMATED) 2022-12-31 18:19:56 Test Item Value Reference Range Interpretation Comme nts POCT GLU (test code = 5274447355) 154 mg/dL 70-110 H Lab Interpretation (test code = 92900-3) Abnormal [facility] GLUCOSE (AUTOMATED)2022-12-31 14:29:35 Test Item Value Reference Range Interpretation Comments POCT GLU (test code = 7609951143) 70-110 HH Lab Interpretation (test code = Abnormal 97847-6) [facility] GLUCOSE (AUTOMATED)2022-12-31 13:50:32 Test Item Value Reference Range Interpretation Comments POCT GLU (test code = 7529954907) 135 mg/dL 70-110 H Lab Interpretation (test code = Abnormal 34670-3) [facility] Metabolic Panel (NA, K, CL, CO2, GLUCOSE, BUN, CREATININE, CA)2022-12-31 12:54:49 Test Item Value Reference Range Interpretation Comments NA (test code = 138 mmol/L 135-145 2033861120) K (test code = 3.8 mmol/L 3.5-5.0 0941124845) CL (test code = 106 mmol/L 98-108 7323277322) CO2 TOTAL (test code = 24 mmol/L 23-31 0423905769) AGAP (test code = 8 2-16 2107648007) BUN (test code = 22 mg/dL 7-23 1349908106) GLUCOSE (test code = 234 mg/dL 70-110 H 9153971894) CREATININE (test code = 0.96 mg/dL 0.60-1.25 7244939508) CALCIUM (test code = 8.2 mg/dL 8.6-10.6 L 2534446958) eGFR (test code = 79.6 mL/min/1.73m2 4494611610) SPARKLE (test code = SPARKLE) Association of [...] tests). Lab Interpretation Abnormal (test code = 55546-1) [facility] [id number] 12:45:27 Test Item Value Reference Range Interpretation Comments MAGNESIUM (test code = 7105209709) 2.0 mg/dL 1.7-2.4 Lab Interpretation (test code = Normal 99650-9) [facility] with [id number] 12:28:24 Test Item Value Reference Range Interpretation Comments WBC (test code = 15.16 See_Comment H [Automated 6690-2) message] The system which generated this result transmit jennifer reference range : 4.20 - 10.70 10*3/?L. The reference range was not used to interpret this result as normal/abnormal . RBC (test code = 3.51 See_Comment L [Automated 789-8) message] The system which generated this result transmit jennifer reference range : 4.26 - 5.52 10*6/?L. The reference range was not used to interpret this result as normal/abnormal . HGB (test code = 10.8 g/dL 12.2-16.4 L 718-7) HCT (test code = 32.9 % 38.4-49.3 L 4544-3) MCV (test code = 93.7 fL 81.7-95.6 787-2) MCH (test code = 30.8 pg 26.1-32.7 785-6) MCHC (test code = 32.8 g/dL 31.2-35.0 786-4) RDW-SD (test code = 45.8 fL 38.5-51.6 68676-5) RDW-CV (test code = 13.3 % 12.1-15.4 788-0) PLT (test code = 253 See_Comment [Automated 777-3) message] The system which generated this result transmit jennifer reference range : 150 - 328 10*3/ ?L. The reference range was not u sed to interpret th is result as normal/abnormal . MPV (test code = 11.2 fL 9.8-13.0 13122-7) NRBC/100 WBC (test 0.0 See_Comment [Automat ed code = 8825228421) message] The system which generated this result transmit jennifer reference range : 0.0 - 10.0 /100 WBCs. The reference range was not used to interpret this result as normal/abnormal . NRBC x10^3 (test code See_Comment [Auto mated = 2313529381) message] The system which generated this result transmit jennifer reference range : 10*3/?L. The reference range was not used to interpret this result as normal/abnormal . GRAN MAT (NEUT) % 70.6 % (test code = 770-8) IMM GRAN % (test code 1.00 % = 2529806359) LYMPH % (test code = 19.4 % 736-9) MONO % (test code = 7.7 % 5905-5) EOS % (test code = 0.8 % 713-8) BASO % (test code = 0.5 % 706-2) GRAN MAT x10^3(ANC) 10.70 10*3/uL 1.99-6.95 H (test code = 4074131654) IMM GRAN x10^3 (test 0.15 10*3/uL 0.00-0.06 H code = 2252424577) LYMPH x10^3 (test code 2.94 10*3/uL 1.09-3.23 = 731-0) MONO x10^3 (test code 1.17 10*3/uL 0.36-1.02 H = 742-7) EOS x10^3 (test code = 0.12 10*3/uL 0.06-0.53 711-2) BASO x10^3 (test code 0.08 10*3/uL 0.01-0.09 = 704-7) Lab Interpretation Abnormal (test code = 15853-7) [facility] GLUCOSE (AUTOMATED)2022-12-31 09:43:00 Test Item Value Reference Range Interpretation Comments POCT GLU (test code = 6871182904) 266 mg/dL 70-110 H Lab Interpretation (test code = Abnormal 45739-5) [facility] GLUCOSE (AUTOMATED)2022-12-31 06:16:14 Test Item Value Reference Range Interpretation Comments POCT GLU (test code = 453 mg/dL 70-110 HH Notifi ed Provider 2575946119) Lab Interpretation (test Abnormal code = 95321-5) [facility]2022-12-31 04:42:37 Test Item Value Reference Range Interpretation Comments HGB A1C (test code = 8.1 % 4.0-5.7 H 4548-4) SPARKLE (test code = SPARKLE) Reference RangesNormal: <5.7%Prediabetes: 5.7 - 6.4%Diabetes: > 6.5% Lab Interpretation (test Abnormal code = 12043-7) [facility] WITH [id number] 03:15:01 Test Item Value Reference Range Interpretation Comments WBC (test code = 18.96 See_Comment H [Automated 6690-2) message] The system which generated this result transmit jennifer reference range : 4.20 - 10.70 10*3/?L. The reference range was not used to interpret this result as normal/abnormal . RBC (test code = 3.94 See_Comment L [Automated 789-8) message] The system which generated this result transmit jennifer reference range : 4.26 - 5.52 10*6/?L. The reference range was not used to interpret this result as normal/abnormal . HGB (test code = 12.2 g/dL 12.2-16.4 718-7) HCT (test code = 37.7 % 38.4-49.3 L 4544-3) MCV (test code = 95.7 fL 81.7-95.6 H 787-2) MCH (test code = 31.0 pg 26.1-32.7 785-6) MCHC (test code = 32.4 g/dL 31.2-35.0 786-4) RDW-SD (test code = 47.2 fL 38.5-51.6 62127-0) RDW-CV (test code = 13.4 % 12.1-15.4 788-0) PLT (test code = 302 See_Comment [Automated 777-3) message] The system which generated this result transmit jennifer reference range : 150 - 328 10*3/ ?L. The reference range was not u sed to interpret th is result as normal/abnormal . MPV (test code = 10.9 fL 9.8-13.0 11775-2) NRBC/100 WBC (test 0.0 See_Comment [Automat ed code = 8715259020) message] The system which generated this result transmit jennifer reference range : 0.0 - 10.0 /100 WBCs. The reference range was not used to interpret this result as normal/abnormal . NRBC x10^3 (test code See_Comment [Auto mated = 3106653791) message] The system which generated this result transmit jennifer reference range : 10*3/?L. The reference range was not used to interpret this result as normal/abnormal . SEG % (test code = 81 % 33-76 H 16722-8) BAND % (test code = 3 % 0-1 H 00480-0) LYMPH % (test code = 10 % 14-54 L 51773-5) MONO % (test code = 6 % 0-4 H 62730-5) ANC (test code = 15.93 10*3/uL 1.99-6.95 H 753-4) Lab Interpretation Abnormal (test code = 90672-5) [facility]. METABOLIC PANEL ([id number])2022-12-31 02:50:58 Test Item Value Reference Range Interpretation Comments NA (test code = 128 mmol/L 135-145 L 2663406090) K (test code = 5.3 mmol/L 3.5-5.0 H Slight 0792445410) hemolysis CL (test code = 91 mmol/L 98-108 L 2972394568) CO2 TOTAL (test code 24 mmol/L 23-31 = 3537689226) AGAP (test code = 13 2-16 5199617571) BUN (test code = 29 mg/dL 7-23 H Slight 9589229760) hemolysis GLUCOSE (test code = 728 mg/dL 70-110 HH 5896393205) CREATININE (test code 1.36 mg/dL 0.60-1.25 H = 1479820301) TOTAL BILI (test code 0.8 mg/dL 0.1-1.1 = 0448638350) CALCIUM (test code = 8.8 mg/dL 8.6-10.6 2059068250) T PROTEIN (test code 7.2 g/dL 6.3-8.2 = 5880661734) ALBUMIN (test code = 4.5 g/dL 3.5-5.0 6991740792) ALK PHOS (test code = 118 U/L 34-122 Slight 4695855851) hemolysis ALTv (test code = 37 U/L 5-50 1742-6) AST(SGOT) (test code 31 U/L 13-40 Slight = 5072669350) hemolysis eGFR (test code = 53.3 mL/min/1.73m2 6292656207) SPARKLE (test code = SPARKLE) Association of [...] tests). Lab Interpretation Abnormal (test code = 20242-6) [facility]. METABOLIC PANEL (41670)2022-12-16 04:24:31 Test Item Value Reference Range Interpretation Comments NA (test code = 134 mmol/L 135-145 L 3795635499) K (test code = 4.4 mmol/L 3.5-5.0 4421581085) CL (test code = 96 mmol/L 98-108 L 0085069235) CO2 TOTAL (test code = 28 mmol/L 23-31 8769066572) AGAP (test code = 2-16 3076046880) BUN (test code = 22 mg/dL 7-23 7431208152) GLUCOSE (test code = 295 mg/dL 70-110 H 7967292346) CREATININE (test code = 1.22 mg/dL 0.60-1.25 2701938612) TOTAL BILI (test code = 0.7 mg/dL 0.1-1.5 8992057389) CALCIUM (test code = 9.2 mg/dL 8.6-10.6 3795381457) T PROTEIN (test code = 7.3 g/dL 6.3-8.2 4575208862) ALBUMIN (test code = 4.3 g/dL 3.5-5.0 4074410361) ALK PHOS (test code = 132 U/L 34-122 H 7366876646) ALTv (test code = 50 U/L 50 1741-) AST(SGOT) (test code = 37 U/L 13-40 0955664579) eGFR (test code = mL/min/1.73m2 4145591170) SPARKLE (test code = SPARKLE) Association of [...] tests). Lab Interpretation Abnormal (test code = 69379-1) [facility] WITH [id number] 04:12:36 Test Item Value Reference Range Interpretation [...] RDW-SD (test code = 49.7 fL 38.5-51.6 85686-5) RDW-CV (test code = 14.0 % 12.1-15.4 788-0) PLT (test code = See_Comment [Automated 777-3) message] The sy stem which generated this result transmitted reference range : 150 - 328 10*3/ ?L. The reference r emanuel was not used to interpret this result as normal/abnormal . MPV (test code = 10.1 fL 9.8-13.0 60074-8) NRBC/100 WBC (test See_Comment [Automat ed code = 9391224789) message] The system which generated this result transmitted reference range : 0.0 - 10.0 /100 WBCs. The refer ence range was not u sed to interpret th is result as normal/abnormal . NRBC x10^3 (test code See_Comment [Auto mated = 2650329031) message] The s ystem which generated this result transmitted reference range : 10*3/?L. The reference range was not used to interpret this result as normal/abnormal . GRAN MAT (NEUT) % 71.6 % (test code = 770-8) IMM GRAN % (test code 0.70 % = 3199328310) LYMPH % (test code = 14.1 % 736-9) MONO % (test code = 6.5 % 5905-5) EOS % (test code = 6.4 % 713-8) BASO % (test code = 0.7 % 706-2) GRAN MAT x10^3(ANC) 8.67 10*3/uL 1.99-6.95 H (test code = 6944949911) IMM GRAN x10^3 (test 0.09 10*3/uL 0.00-0.06 H code = 0170450558) LYMPH x10^3 (test code 1.71 10*3/uL 1.09-3.23 = 731-0) MONO x10^3 (test code 0.79 10*3/uL 0.36-1.02 = 742-7) EOS x10^3 (test code = 0.78 10*3/uL 0.06-0.53 H 711-2) BASO x10^3 (test code 0.09 10*3/uL 0.01-0.09 = 704-7) Lab Interpretation Abnormal (test code = 67995-9) [id number]29 Test Item Value Reference Interpretation Comments Range TROPONIN I (test 0.002 ng/mL See_Comment [Automated code = 7138541227) message] The system which generated this result [...] biotin. Lab Interpretation Normal (test code = 70015-1) [facility] / [id number] 02:22:08 Test Item Value Reference Range Interpretation Comments PROTIME PATIENT (test See_Comment [Auto mated message] code = 5964-2) The system [employer] generated this result transmitted ref erence range: 12.0 - 1 4.7 Seconds. The re ference range was not u sed to interpret this result as normal/abnor mal. INR (test code = 6301-6) Nor mal INR <1.1; Warfarin Therap eutic range 2.0 to 3. 0 or 2.5 to 3.5, dep ending upon the indica tions. Lab Interpretation (test Normal code = 94000-8) [facility] METABOLIC PANEL ([id number])2022-12-04 02:20:46 Test Item Value Reference Range Interpretation Comments NA (test code = 137 mmol/L 135-145 8998999741) K (test code = 4.1 mmol/L 3.5-5.0 4196074657) CL (test code = 98 mmol/L 98-108 3684661571) CO2 TOTAL (test code = 27 mmol/L 23-31 4859865225) AGAP (test code = 2-16 9704670114) BUN (test code = 21 mg/dL 7-23 3000152020) GLUCOSE (test code = 175 mg/dL 70-110 H 2599521826) CREATININE (test code = 1.23 mg/dL 0.60-1.25 5177352906) TOTAL BILI (test code = 0.8 mg/dL 0.1-1.1 7527734348) CALCIUM (test code = 8.5 mg/dL 8.6-10.6 L 7425526354) T PROTEIN (test code = 7.2 g/dL 6.3-8.2 5917823963) ALBUMIN (test code = 4.3 g/dL 3.5-5.0 7394040235) ALK PHOS (test code = 143 U/L 34-122 H 0788268889) ALTv (test code = 47 U/L 50 1742-6) AST(SGOT) (test code = 40 U/L 1340 8573078945) eGFR (test code = mL/min/1.73m2 2328939300) SPARKLE (test code = SPARKLE) Association of [...] tests). Lab Interpretation Abnormal (test code = 05054-4) [facility] WITH [id number] 02:13:26 Test Item Value Reference Range Interpretation Comments WBC (test code = See_Comment H [Automated 4870-2) message] The system which generated this result transmit jennifer reference range : 4.20 - 10.70 10*3/?L. The reference range was not used to interpret this result as normal/abnormal . RBC (test code = See_Comment [Automated 639-8) message] The system which generated this result transmit jennifer reference range : 4.26 - 5.52 10*6/?L. The reference range was not used to interpret this result as normal/abnormal . HGB (test code = 14.2 g/dL 12.2-16.4 718-7) HCT (test code = 44.7 % 38.4-49.3 4544-3) MCV (test code = 97.6 fL 81.7-95.6 H 787-2) MCH (test code = 31.0 pg 26.1-32.7 785-6) MCHC (test code = 31.8 g/dL 31.2-35.0 786-4) RDW-SD (test code = 51.0 fL 38.5-51.6 00402-3) RDW-CV (test code = 14.2 % 12.1-15.4 788-0) PLT (test code = See_Comment [Automated 777-3) message] The system which generated this result transmit jennifer reference range : 150 - 328 10*3/ ?L. The reference range was not u sed to interpret th is result as normal/abnormal . MPV (test code = 10.5 fL 9.8-13.0 29816-8) NRBC/100 WBC (test See_Comment [Automat ed code = 1470459874) message] The system which generated this result transmit jennifer reference range : 0.0 - 10.0 /100 WBCs. The reference range was not used to interpret this result as normal/abnormal . NRBC x10^3 (test code See_Comment [Auto mated = 1740340097) message] The system which generated this result transmit jennifer reference range : 10*3/?L. The reference range was not used to interpret this result as normal/abnormal . GRAN MAT (NEUT) % 66.3 % (test code = 770-8) IMM GRAN % (test code 1.60 % = 0354645145) LYMPH % (test code = 18.7 % 736-9) MONO % (test code = 5.0 % 5905-5) EOS % (test code = 7.6 % 713-8) BASO % (test code = 0.8 % 706-2) GRAN MAT x10^3(ANC) 10.58 10*3/uL 1.99-6.95 H (test code = 5041916350) IMM GRAN x10^3 (test 0.26 10*3/uL 0.00-0.06 H code = 4904323188) LYMPH x10^3 (test code 2.98 10*3/uL 1.09-3.23 = 731-0) MONO x10^3 (test code 0.79 10*3/uL 0.36-1.02 = 742-7) EOS x10^3 (test code = 1.21 10*3/uL 0.06-0.53 H 711-2) BASO x10^3 (test code 0.13 10*3/uL 0.01-0.09 H = 704-7) Lab Interpretation Abnormal (test code = 88330-7) [facility] [id number] 01:17:03 Test Item Value Reference Interpretation Comments Range TROPONIN I (test 0.005 ng/mL See_Comment [Automated code = 3506018069) message] The system which generated this result [...] biotin. Lab Interpretation Normal (test code = 65344-6) [facility] [id number] 00:29:18 Test Item Value Reference Range Interpretation Comments NT-proBNP (test code 143 pg/mL See_Comment H [Autom ated = 3348536563) message] The system which generated this result transmitted reference range : <=125. The reference range was not used to interpret this result as normal/abnormal . SPARKLE (test code = SPARKLE) Biotin has been reported to cause a negative bias, interpret results relative to patient's use of biotin. Lab Interpretation Abnormal (test code = 33683-3) [facility]. METABOLIC PANEL ([id number])2022-11-27 00:21:16 Test Item Value Reference Range Interpretation Comments NA (test code = 139 mmol/L 135-145 0448476817) K (test code = 4.3 mmol/L 3.5-5.0 1835466585) CL (test code = 104 mmol/L 98-108 1769523764) CO2 TOTAL (test code = 23 mmol/L 23-31 6004818550) AGAP (test code = 2-16 5167924658) BUN (test code = 8 mg/dL 7-23 6346779108) GLUCOSE (test code = 132 mg/dL 70-110 H 4010019495) CREATININE (test code = 1.10 mg/dL 0.60-1.25 5455456999) TOTAL BILI (test code = 0.7 mg/dL 0.1-1.7 2614915008) CALCIUM (test code = 8.9 mg/dL 8.6-10.6 8936605419) T PROTEIN (test code = 7.4 g/dL 6.3-8.2 1463170889) ALBUMIN (test code = 4.3 g/dL 3.5-5.0 0973602898) ALK PHOS (test code = 127 U/L 34-122 H 1372630776) ALTv (test code = 36 U/L 5-50 1742-6) AST(SGOT) (test code = 36 U/L 13-40 1553558632) eGFR (test code = mL/min/1.73m2 6181490405) SPARKLE (test code = SPARKLE) Association of [...] tests). Lab Interpretation Abnormal (test code = 33424-1) [facility] WITH [id number] 00:10:14 Test Item Value Reference Range Interpretation Comments WBC (test code = See_Comment H [Automated 0690-2) message] The sy stem which generated this [...] (test code = 52.0 fL 38.5-51.6 H 73810-2) RDW-CV (test code = 14.4 % 12.1-15.4 788-0) PLT (test code = See_Comment H [Automated 777-3) message] The sy stem which generated this result transmitted reference range : 150 - 328 10*3/ ?L. The reference r emanuel was not used to interpret this result as normal/abnormal . MPV (test code = 10.0 fL 9.8-13.0 66768-7) NRBC/100 WBC (test See_Comment [Automat ed code = 2286542135) message] The system which generated this result transmitted reference range : 0.0 - 10.0 /100 WBCs. The refer ence range was not u sed to interpret th is result as normal/abnormal . NRBC x10^3 (test code See_Comment [Auto mated = 6941330166) message] The s ystem which generated this result transmitted reference range : 10*3/?L. The reference range was not used to interpret this result as normal/abnormal . GRAN MAT (NEUT) % 67.2 % (test code = 770-8) IMM GRAN % (test code 0.60 % = 6349957725) LYMPH % (test code = 16.8 % 736-9) MONO % (test code = 5.8 % 5905-5) EOS % (test code = 8.7 % 713-8) BASO % (test code = 0.9 % 706-2) GRAN MAT x10^3(ANC) 7.83 10*3/uL 1.99-6.95 H (test code = 3871418698) IMM GRAN x10^3 (test 0.07 10*3/uL 0.00-0.06 H code = 4209906259) LYMPH x10^3 (test code 1.95 10*3/uL 1.09-3.23 = 731-0) MONO x10^3 (test code 0.67 10*3/uL 0.36-1.02 = 742-7) EOS x10^3 (test code = 1.01 10*3/uL 0.06-0.53 H 711-2) BASO x10^3 (test code 0.11 10*3/uL 0.01-0.09 H = 704-7) Lab Interpretation Abnormal (test code = 43878-4) [facility] SARS-COV-2 ANTIGEN (BINAX NOW)2022-11-07 22:42:00 Test Item Value Reference Range Interpretation Comments POCT SARS-COV-2 ANTIGEN (test Not Detected Not Detected code = 61568-7) On board controls acceptable Yes with C Line (test code = 3574) [facility] SARS-COV-2 ANTIGEN (BINAX NOW)2022-11-07 22:42:00 Test Item Value Reference Range Interpretation Comments POCT SARS-COV-2 ANTIGEN (test Not Detected Not Detected code = 67505-0) On board controls acceptable Yes with C Line (test code = 3574) [facility] MOLECULAR [id number] 22:40:24 Test Item Value Reference Range Interpretation Comments POCT Molecular FluA (test code = Negative Negative 66489-4) POCT Molecular FluB (test code = Negative Negative 00211-7) Lab Interpretation (test code = Normal 94959-0) [facility] MOLECULAR [id number] 22:40:24 Test Item Value Reference Range Interpretation Comments POCT Molecular FluA (test code = Negative Negative 59300-6) POCT Molecular FluB (test code = Negative Negative 43310-4) Lab Interpretation (test code = Normal 06807-5) [facility]. METABOLIC PANEL (22018)2022-11-07 07:55:56 Test Item Value Reference Range Interpretation Comments NA (test code = 138 mmol/L 135-145 [id number]) K (test code = 5.0 mmol/L 3.5-5.0 4922465791) CL (test code = 100 mmol/L 98-108 5200646913) CO2 TOTAL (test code = 23 mmol/L 23-31 1942076045) AGAP (test code = 2-16 2156362191) BUN (test code = 17 mg/dL 7-23 1975766525) GLUCOSE (test code = 166 mg/dL 70-110 H 1051318079) CREATININE (test code = 1.33 mg/dL 0.60-1.25 H 4286576136) TOTAL BILI (test code = 1.3 mg/dL 0.1-1.1 H 5597852366) CALCIUM (test code = 9.2 mg/dL 8.6-10.6 4385883872) T PROTEIN (test code = 7.3 g/dL 6.3-8.2 3619556241) ALBUMIN (test code = 4.2 g/dL 3.5-5.0 9915652540) ALK PHOS (test code = 144 U/L 34-122 H 7934699126) ALTv (test code = 35 U/L 5-50 1742-6) AST(SGOT) (test code = 51 U/L 13-40 H 2635679284) eGFR (test code = mL/min/1.73m2 2520731278) SPARKLE (test code = SPARKLE) Association of [...] tests). Lab Interpretation Abnormal (test code = 88294-8) [facility] 07[facility]52:49 Test Item Value Reference Range Interpretation Comments LIPASE (test code = 4116644744) 120 U/L 0-220 Lab Interpretation (test code = Normal 37905-5) [facility] WITH [id number] 07:38:33 Test Item Value Reference Range Interpretation [...] RDW-SD (test code = 47.2 fL 38.5-51.6 34652-7) RDW-CV (test code = 13.7 % 12.1-15.4 788-0) PLT (test code = See_Comment H [Automated 777-3) message] The system which generated this result transmit jennifer reference range : 150 - 328 10*3/ ?L. The reference range was not u sed to interpret th is result as normal/abnormal . MPV (test code = 10.0 fL 9.8-13.0 72042-4) NRBC/100 WBC (test See_Comment [Automat ed code = 3780982616) message] The system which generated this result transmit jennifer reference range : 0.0 - 10.0 /100 WBCs. The reference range was not used to interpret this result as normal/abnormal . NRBC x10^3 (test code See_Comment [Auto mated = 1189721816) message] The system which generated this result transmit jennifer reference range : 10*3/?L. The reference range was not used to interpret this result as normal/abnormal . SEG % (test code = 77 % 33-76 H 95762-1) LYMPH % (test code = 4 % 14-54 L 46938-7) MONO % (test code = 16 % 0-4 H 80989-8) EOS % (test code = 3 % 0-3 40684-0) ANC (test code = 14.51 10*3/uL 1.99-6.95 H 753-4) Lab Interpretation Abnormal (test code = 20431-2) [facility] Temple[facility]throm[facility] Time / [id number] 07:15:09 Test Item Value Reference Range Interpretation Comments PROTIME PATIENT (test See_Comment [Auto mated message] code = 5964-2) The system [employer] generated this result transmitted ref erence range: 12.0 - 1 4.7 Seconds. The re ference range was not u sed to interpret this result as normal/abnor mal. INR (test code = 6301-6) Nor mal INR <1.1; Warfarin Therap eutic range 2.0 to 3. 0 or 2.5 to 3.5, dep ending upon the indica tions. Lab Interpretation (test Normal code = 49090-0) [facility] GLUCOSE (AUTOMATED)2022-09-23 18:55:14 Test Item Value Reference Range Interpretation Comments POCT GLU (test code = 9868844110) 238 mg/dL 70-110 H Lab Interpretation (test code = Abnormal 72666-1) [facility] GLUCOSE (AUTOMATED)2022-09-23 17:21:25 Test Item Value Reference Range Interpretation Comments POCT GLU (test code = 3859609675) 227 mg/dL 70-110 H Lab Interpretation (test code = Abnormal 90888-7) [facility] GLUCOSE (AUTOMATED)2022-09-23 12:59:55 Test Item Value Reference Range Interpretation Comments POCT GLU (test code = 7206852198) 198 mg/dL 70-110 H Lab Interpretation (test code = Abnormal 09147-1) [facility] HEMOGLOBIN (A1C)2022-09-23 11:05:10 Test Item Value Reference Range Interpretation Comments HGB A1C (test code = 12.4 % 4.0-5.7 H 4548-4) SPARKLE (test code = SPARKLE) Reference RangesNormal: <5.7%Prediabetes: 5.7 - 6.4%Diabetes: > 6.5% Lab Interpretation (test Abnormal code = 04782-4) [facility] GLUCOSE (AUTOMATED)2022-09-23 09:58:45 Test Item Value Reference Range Interpretation Comments POCT GLU (test code = 5932733670) 166 mg/dL 70-110 H Lab Interpretation (test code = Abnormal 12838-3) [facility] GLUCOSE (AUTOMATED)2022-09-23 05:30:10 Test Item Value Reference Range Interpretation Comments POCT GLU (test code = 4408389863) 183 mg/dL 70-110 H Lab Interpretation (test code = Abnormal 91454-9) [facility] GLUCOSE (AUTOMATED)2022-09-23 02:10:46 Test Item Value Reference Range Interpretation Comments POCT GLU (test code = 1513053033) 307 mg/dL 70-110 H Lab Interpretation (test code = Abnormal 07270-3) [facility] GLUCOSE (AUTOMATED)2022-09-22 23:55:16 Test Item Value Reference Range Interpretation Comments POCT GLU (test code = 0712190625) 343 mg/dL 70-110 H Lab Interpretation (test code = Abnormal 60474-4) [facility] GLUCOSE (AUTOMATED)2022-09-22 22:04:22 Test Item Value Reference Range Interpretation Comments POCT GLU (test code = 3547366901) 432 mg/dL 70-110 H Lab Interpretation (test code = Abnormal 39036-3) [facility] GLUCOSE (AUTOMATED)2022-09-22 21:03:46 Test Item Value Reference Range Interpretation Comments POCT GLU (test code = 5311935151) 530 mg/dL 70-110 HH Lab Interpretation (test code = Abnormal 24193-6) [facility] GLUCOSE (AUTOMATED)2022-09-22 20:29:34 Test Item Value Reference Range Interpretation Comments POCT GLU (test code = 8477087597) 551 mg/dL 70-110 HH Lab Interpretation (test code = Abnormal 70488-6) [facility] METABOLIC PANEL (NA, K, CL, CO2, GLUCOSE, BUN, CREATININE, CA)2022-09-22 19:52:26 Test Item Value Reference Range Interpretation Comments NA (test code = 127 mmol/L 135-145 L 3326002610) K (test code = 4.8 mmol/L 3.5-5.0 Slight 9169082679) hemolysis CL (test code = 87 mmol/L 98-108 L 6701236004) CO2 TOTAL (test code 28 mmol/L 23-31 = 8863660968) AGAP (test code = 2-16 3779526719) BUN (test code = 27 mg/dL 7-23 H Slight 7913414417) hemolysis GLUCOSE (test code = 643 mg/dL 70-110 HH 0912796532) CREATININE (test code 1.26 mg/dL 0.60-1.25 H = 3592067663) CALCIUM (test code = 9.1 mg/dL 8.6-10.6 9262408708) eGFR (test code = mL/min/1.73m2 5028293752) SPARKLE (test code = SPARKLE) Association of [...] tests). Lab Interpretation Abnormal (test code = 81718-4) [facility] WITH [id number] 19:26:13 Test Item Value Reference Range Interpretation [...] RDW-SD (test code = 48.3 fL 38.5-51.6 92249-9) RDW-CV (test code = 13.9 % 12.1-15.4 788-0) PLT (test code = See_Comment H [Automated 777-3) message] The system which generated this result transmit jennifer reference range : 150 - 328 10*3/ ?L. The reference range was not u sed to interpret th is result as normal/abnormal . MPV (test code = 11.1 fL 9.8-13.0 51023-8) NRBC/100 WBC (test See_Comment [Automat ed code = 6303458805) message] The system which generated this result transmit jennifer reference range : 0.0 - 10.0 /100 WBCs. The reference range was not used to interpret this result as normal/abnormal . NRBC x10^3 (test code See_Comment [Auto mated = 6974796673) message] The system which generated this result transmit jennifer reference range : 10*3/?L. The reference range was not used to interpret this result as normal/abnormal . GRAN MAT (NEUT) % 78.3 % (test code = 770-8) IMM GRAN % (test code 1.00 % = 2589252067) LYMPH % (test code = 12.5 % 736-9) MONO % (test code = 5.5 % 5905-5) EOS % (test code = 2.3 % 713-8) BASO % (test code = 0.4 % 706-2) GRAN MAT x10^3(ANC) 11.92 10*3/uL 1.99-6.95 H (test code = 4674126048) IMM GRAN x10^3 (test 0.15 10*3/uL 0.00-0.06 H code = 4879129939) LYMPH x10^3 (test code 1.91 10*3/uL 1.09-3.23 = 731-0) MONO x10^3 (test code 0.83 10*3/uL 0.36-1.02 = 742-7) EOS x10^3 (test code = 0.35 10*3/uL 0.06-0.53 711-2) BASO x10^3 (test code 0.06 10*3/uL 0.01-0.09 = 704-7) Lab Interpretation Abnormal (test code = 74877-6) [facility] GLUCOSE (AUTOMATED)2022-09-22 18:44:47 Test Item Value Reference Range Interpretation Comments POCT GLU (test code = 9664290656) 591 mg/dL 70-110 HH Lab Interpretation (test code = Abnormal 23855-2) [facility] GLUCOSE (AUTOMATED)2022-09-22 13:26:28 Test Item Value Reference Range Interpretation Comments POCT GLU (test code = 6435050655) 581 mg/dL 70-110 HH Lab Interpretation (test code = Abnormal 95051-8) [facility] GLUCOSE (AUTOMATED)2022-09-22 13:26:28 Test Item Value Reference Range Interpretation Comments POCT GLU (test code = 6508972304) 581 mg/dL 70-110 HH Lab Interpretation (test code = Abnormal 93825-8) [facility] 12:32:47 Test Item Value Reference Range Interpretation Comments FVC Actual (test code = 3994) 3.81 L FEV1 Actual (test code = 3993) 2.79 L FEV1/FVC Actual (test code = 3995) 73 % [facility]ARG[facility] [id number] 03:41:31 Test Item Value Reference Interpretation Comments Range TROPONIN I (test 0.004 ng/mL See_Comment [Automated code = 3999958167) message] The system which generated this result [...] biotin. Lab Interpretation Normal (test code = 15846-3) [facility] [id number] 03:38:09 Test Item Value Reference Range Interpretation Comments NT-proBNP (test code 138 pg/mL See_Comment H [Autom ated = 2987537767) message] The system which generated this result transmitted reference range : <=125. The reference range was not used to interpret this result as normal/abnormal . SPARKLE (test code = SPARKLE) Biotin has been reported to cause a negative bias, interpret results relative to patient's use of biotin. Lab Interpretation Abnormal (test code = 97977-5) [facility]. METABOLIC PANEL (17809)2022-09-02 03:30:50 Test Item Value Reference Range Interpretation Comments NA (test code = 137 mmol/L 135-145 2249032432) K (test code = 4.0 mmol/L 3.5-5 2118353063) CL (test code = 94 mmol/L 98-108 L 0516167269) CO2 TOTAL (test code = 28 mmol/L 23-31 0431590961) AGAP (test code = 2-16 1672512936) BUN (test code = 43 mg/dL 7-23 H 8511714659) GLUCOSE (test code = 302 mg/dL 70-110 H 3391854665) CREATININE (test code = 1.43 mg/dL 0.6-1.25 H 0013025866) TOTAL BILI (test code = 0.7 mg/dL 0.1-1.1 3627678567) CALCIUM (test code = 9.6 mg/dL 8.6-10.6 2951199245) T PROTEIN (test code = 7.7 g/dL 6.3-8.2 1492302487) ALBUMIN (test code = 4.5 g/dL 3.5-5 7076191879) ALK PHOS (test code = 176 U/L 34-122 H 0079117261) ALTv (test code = 81 U/L 5-50 H 1742-6) AST(SGOT) (test code = 48 U/L 13-40 H 7007352301) eGFR (test code = mL/min/1.73m2 6915355386) SPARKLE (test code = SPARKLE) Association of [...] tests). Lab Interpretation Abnormal (test code = 98138-0) [facility]20[facility]-11 03:30:50 Test Item Value Reference Range Interpretation Comments MAGNESIUM (test code = 8968411204) 2.5 mg/dL 1.7-2.4 H Lab Interpretation (test code = Abnormal 74961-5) [facility] WITH [id number] 03:16:07 Test Item Value Reference Range Interpretation Comments WBC (test code = See_Comment H [Automated 2233-2) message] The sy stem which generated this result transmitted reference range : 4.20 - 10.70 10*3/?L. The reference range was not used to interpret this result as normal/abnormal . RBC (test code = See_Comment [Automated 816-8) message] The sy stem which generated this [...] RDW-SD (test code = 49.9 fL 38.5-51.6 81003-1) RDW-CV (test code = 14.6 % 12.1-15.4 788-0) PLT (test code = See_Comment [Automated 777-3) message] The sy stem which generated this result transmitted reference range : 150 - 328 10*3/ ?L. The reference r emanuel was not used to interpret this result as normal/abnormal . MPV (test code = 10.6 fL 9.8-13 60759-6) NRBC/100 WBC (test See_Comment [Automat ed code = 7910946768) message] The system which generated this result transmitted reference range : 0.0 - 10.0 /100 WBCs. The refer ence range was not u sed to interpret th is result as normal/abnormal . NRBC x10^3 (test code See_Comment [Auto mated = 5684920785) message] The s ystem which generated this result transmitted reference range : 10*3/?L. The reference range was not used to interpret this result as normal/abnormal . GRAN MAT (NEUT) % 70.7 % (test code = 770-8) IMM GRAN % (test code 0.70 % = 9055400444) LYMPH % (test code = 15.5 % 736-9) MONO % (test code = 5.7 % 5905-5) EOS % (test code = 6.7 % 713-8) BASO % (test code = 0.7 % 706-2) GRAN MAT x10^3(ANC) 8.98 10*3/uL 1.99-6.95 H (test code = 1801562764) IMM GRAN x10^3 (test 0.09 10*3/uL 0-0.06 H code = 0814603121) LYMPH x10^3 (test code 1.97 10*3/uL 1.09-3.23 = 731-0) MONO x10^3 (test code 0.73 10*3/uL 0.36-1.02 = 742-7) EOS x10^3 (test code = 0.85 10*3/uL 0.06-0.53 H 711-2) BASO x10^3 (test code 0.09 10*3/uL 0.01-0.09 = 704-7) Lab Interpretation Abnormal (test code = 62846-4) [facility] (ZEHRA)2022-08-27 00:48:59 Test Item Value Reference Range Interpretation Comments Height (test code = in 4233477714) Weight (test code = lbs 0884443732) Systolic BP (test mmHg code = 3488730275) Diastolic BP (test mmHg code = 0993246832) Heart Rate (test code bpm = 0179703143) BSA (test code = 2.25 m2 0034209164) Radiology Study observation (narrative) (test code = 24013-1) SPARKLE (test code = SPARKLE) ?Left?Ventricle: Left [...] captured. The probe was inserted by the residential glazier. There was no probe insertion difficulty.There were [...] for further assessment of the left atrium. [facility] GLUCOSE (AUTOMATED)2022-08-25 02:20:02 Test Item Value Reference Range Interpretation Comments POCT GLU (test code = 6538551931) 342 mg/dL 70-110 H Lab Interpretation (test code = Abnormal 15784-9) [facility]. METABOLIC PANEL (50268)2022-08-25 01:41:58 Test Item Value Reference Range Interpretation Comments NA (test code = 131 mmol/L 135-145 L 0459002754) K (test code = 4.9 mmol/L 3.5-5 0349528213) CL (test code = 92 mmol/L 98-108 L 2711572726) CO2 TOTAL (test code = 26 mmol/L 23-31 0120769145) AGAP (test code = 2-16 0172775367) BUN (test code = 37 mg/dL 7-23 H 7321853199) GLUCOSE (test code = 565 mg/dL 70-110 HH 1436616704) CREATININE (test code = 1.48 mg/dL 0.6-1.25 H 2011722024) TOTAL BILI (test code = 0.5 mg/dL 0.1-1.6 8635292040) CALCIUM (test code = 8.6 mg/dL 8.6-10.6 6561171264) T PROTEIN (test code = 6.6 g/dL 6.3-8.2 7935237379) ALBUMIN (test code = 4.1 g/dL 3.5-5 2250995266) ALK PHOS (test code = 137 U/L 34-122 H 1947025080) ALTv (test code = 93 U/L 5-50 H 1742-6) AST(SGOT) (test code = 47 U/L 13-40 H 5269476161) eGFR (test code = mL/min/1.73m2 9732066628) SPARKLE (test code = SPARKLE) Association of [...] tests). Lab Interpretation Abnormal (test code = 29694-8) [facility]2022-08-25 01:30:09 Test Item Value Reference Range Interpretation Comments POCT GLU (test code = 2837437113) 450 mg/dL 70-110 HH Lab Interpretation (test code = Abnormal 21762-5) [facility] WITH [id number] 01:20:46 Test Item Value Reference Range Interpretation [...] (test code = 52.1 fL 38.5-51.6 H 69599-7) RDW-CV (test code = 14.6 % 12.1-15.4 788-0) PLT (test code = See_Comment [Automated 777-3) message] The system which generated this result transmit jennifer reference range : 150 - 328 10*3/ ?L. The reference range was not u sed to interpret th is result as normal/abnormal . MPV (test code = 10.9 fL 9.8-13 17586-5) NRBC/100 WBC (test See_Comment [Automat ed code = 7922205708) message] The system which generated this result transmit jennifer reference range : 0.0 - 10.0 /100 WBCs. The reference range was not used to interpret this result as normal/abnormal . NRBC x10^3 (test code See_Comment [Auto mated = 7955276716) message] The system which generated this result transmit jennifer reference range : 10*3/?L. The reference range was not used to interpret this result as normal/abnormal . GRAN MAT (NEUT) % 85.4 % (test code = 770-8) IMM GRAN % (test code 1.30 % = 4530550159) LYMPH % (test code = 9.3 % 736-9) MONO % (test code = 3.6 % 5905-5) EOS % (test code = 0.2 % 713-8) BASO % (test code = 0.2 % 706-2) GRAN MAT x10^3(ANC) 10.68 10*3/uL 1.99-6.95 H (test code = 7322702073) IMM GRAN x10^3 (test 0.16 10*3/uL 0-0.06 H code = 8091571288) LYMPH x10^3 (test code 1.16 10*3/uL 1.09-3.23 = 731-0) MONO x10^3 (test code 0.45 10*3/uL 0.36-1.02 = 742-7) EOS x10^3 (test code = 0.06-0.53 L 711-2) BASO x10^3 (test code 0.03 10*3/uL 0.01-0.09 = 704-7) Lab Interpretation Abnormal (test code = 44977-3) [facility] GLUCOSE (AUTOMATED)2022-08-25 00:00:30 Test Item Value Reference Range Interpretation Comments POCT GLU (test code = 4256867373) 588 mg/dL 70-110 HH Lab Interpretation (test code = Abnormal 56670-4) [facility] GLUCOSE (AUTOMATED)2022-08-24 23:32:50 Test Item Value Reference Range Interpretation Comments POCT GLU (test code = 4289946731) 534 mg/dL 70-110 HH Lab Interpretation (test code = Abnormal 52037-8) [facility] GLUCOSE (AUTOMATED)2022-08-16 16:53:08 Test Item Value Reference Range Interpretation Comments POCT GLU (test code = 1669089938) 155 mg/dL 70-110 H Lab Interpretation (test code = Abnormal 71708-3) [facility] GLUCOSE (AUTOMATED)2022-08-16 13:00:21 Test Item Value Reference Range Interpretation Comments POCT GLU (test code = 3878634777) 137 mg/dL 70-110 H Lab Interpretation (test code = Abnormal 39986-3) [facility] GLUCOSE (AUTOMATED)2022-08-16 08:53:15 Test Item Value Reference Range Interpretation Comments POCT GLU (test code = 2759929480) 244 mg/dL 70-110 H Lab Interpretation (test code = Abnormal 96865-3) [facility] GLUCOSE (AUTOMATED)2022-08-16 05:07:44 Test Item Value Reference Range Interpretation Comments POCT GLU (test code = 7198878068) 323 mg/dL 70-110 H Lab Interpretation (test code = Abnormal 38798-0) [facility] GLUCOSE (AUTOMATED)2022-08-16 01:42:31 Test Item Value Reference Range Interpretation Comments POCT GLU (test code = 8478235754) 359 mg/dL 70-110 H Lab Interpretation (test code = Abnormal 88369-0) [facility] GLUCOSE (AUTOMATED)2022-08-15 21:29:52 Test Item Value Reference Range Interpretation Comments POCT GLU (test code = 0275111228) 320 mg/dL 70-110 H Lab Interpretation (test code = Abnormal 33991-4) [facility]ansthor[facility] (TTE)2022-08-15 20:45:58 Test Item Value Reference Range Interpretation Comments Height (test code = in 3110647004) Weight (test code = lbs 6209298848) Systolic BP (test code = mmHg 9589385110) Diastolic BP (test code mmHg = 6639869913) Heart Rate (test code = bpm 8542406403) BSA (test code = 2.25 m2 0733479077) LVIDD (test code = 4.30 cm 7606170072) Left Ventricular End 81.0 mL Diastolic Volume by Teichholz Method (test code = 8673212) IVS (test code = 1.17 cm 3072142741) Interventricular Septum 1.17 cm Diastolic Thickness by 2D (test code = 7696057) LVPWD (test code = 1.01 cm 7880628225) PW (test code = 1.01 cm 0.6-1.9 7571993847) EF(Teich) (test code = 67.90 % 4365042330) LVIDS (test code = 2.70 cm 3195462899) Left Ventricular End 26.0 mL Systolic Volume by Teichholz Method (test code = 1378950) FS (test code = 38 % 8248156203) EF - 2D (test code = 67.90 % 16400724) LVOT diameter (test code 2.17 cm = 3359288397) LVOT area (test code = 3.70 cm2 6801367738) ACS (test code = 2.18 cm 2397647386) Ao root diam (test code 3.60 cm = 1482861171) Aortic root (test code = 3.6 cm 3178640509) Ao root annulus (test 3.6 cm code = 5672294117) LA size (test code = 3.8 cm 7917779017) E wave decelartion time 0.28 s (test code = 7743626416) MV Peak E Georgie (test code 77.2 cm/s = 4218097950) MV Peak A Georgie (test code 92.7 cm/s = 6504841718) E/A ratio (test code = ratio 3376216153) MV Prop V (test code = 106.10 cm/s 5822163985) Tapse (test code = 2.40 cm 7118815420) LVOT stroke volume (test 110.80 cm3 code = 4552734474) LVOT peak georgie (test code 135.3 cm/s = 2472466233) LVOT mn grad (test code mmHg = 0056696867) AV LVOT peak gradient mmHg (test code = 1607542394) LVOT peak VTI (test code 30.0 cm = 7673374114) LV V1 mean (test code = 84.00 cm/s 8450499886) Aortic valve mean 109.1 cm/s velocity (test code = 8213594028) Ao peak georgie (test code = 155.5 cm/s 7210659816) Ao VTI (test code = 33.7 cm 6735844627) AV area by cont VTI 3.3 cm2 (test code = 3251845872) AV area peak georgie (test 3.2 cm2 code = 9264578582) Ao max PG (test code = 9.70 mm[Hg] 1093438225) AV peak gradient (test mmHg code = 5634850938) AV valve area (test code 3.30 cm2 = 6200508495) AV mean gradient (test mmHg code = 4945086863) Radiology Study observation (narrative) (test code = 85809-7) SPARKLE (test code = SPARKLE) ?Left?Ventricle: Left [...] The apical and parasternal views were obtained. [facility] GLUCOSE (AUTOMATED)2022-08-15 16:57:15 Test Item Value Reference Range Interpretation Comments POCT GLU (test code = 8616566324) 242 mg/dL 70-110 H Lab Interpretation (test code = Abnormal 77458-6) [facility] GLUCOSE (AUTOMATED)2022-08-15 13:14:31 Test Item Value Reference Range Interpretation Comments POCT GLU (test code = 3236459813) 190 mg/dL 70-110 H Lab Interpretation (test code = Abnormal 47333-9) [facility] GLUCOSE (AUTOMATED)2022-08-15 12:44:36 Test Item Value Reference Range Interpretation Comments POCT GLU (test code = 9924712465) 240 mg/dL 70-110 H Lab Interpretation (test code = Abnormal 80661-3) [facility] (A1C)2022-08-15 03:30:50 Test Item Value Reference Range Interpretation Comments HGB A1C (test code = 7.3 % 4-5.7 H 4548-4) SPARKLE (test code = SPARKLE) Reference RangesNormal: <5.7%Prediabetes: 5.7 - 6.4%Diabetes: > 6.5% Lab Interpretation (test Abnormal code = 21943-2) [facility] TempleD-[id number] 00:25:39 Test Item Value Reference Interpretation Comments Range D-DIMER (test code = See_Comment [Autom ated 6038461341) message] The system which generated this result [...] diagnosis. Lab Interpretation Normal (test code = 51366-3) [facility] Temple[facility]OP[facility] [id number] 00:13:59 Test Item Value Reference Interpretation Comments Range TROPONIN I (test See_Comment [Automated code = 4359577197) message] The system which generated this result [...] biotin. Lab Interpretation Normal (test code = 55286-2) [facility] Temple[facility]MIN[facility] [id number] 00:10:37 Test Item Value Reference Range Interpretation Comments NT-proBNP (test code 139 pg/mL See_Comment H [Autom ated = 1663201116) message] The system which generated this result transmitted reference range : <=125. The reference range was not used to interpret this result as normal/abnormal . SPARKLE (test code = SPARKLE) Biotin has been reported to cause a negative bias, interpret results relative to patient's use of biotin. Lab Interpretation Abnormal (test code = 77395-4) [facility] METABOLIC PANEL (72413)2022-08-15 00:02:35 Test Item Value Reference Range Interpretation Comments NA (test code = 137 mmol/L 135-145 3157537531) K (test code = 4.0 mmol/L 3.5-5 4233957880) CL (test code = 97 mmol/L 98-108 L 8175630216) CO2 TOTAL (test code = 22 mmol/L 23-31 L 5269629145) AGAP (test code = 2-16 H 9243031085) BUN (test code = 15 mg/dL 7-23 6454353506) GLUCOSE (test code = 164 mg/dL 70-110 H 7351947334) CREATININE (test code = 1.61 mg/dL 0.6-1.25 H 6856771574) TOTAL BILI (test code = 0.7 mg/dL 0.1-1.2 2861341155) CALCIUM (test code = 9.4 mg/dL 8.6-10.6 6134019651) T PROTEIN (test code = 8.0 g/dL 6.3-8.2 9502113222) ALBUMIN (test code = 4.8 g/dL 3.5-5 2549346114) ALK PHOS (test code = 171 U/L 34-122 H [id number]) ALTv (test code = 48 U/L 5-50 1742-6) AST(SGOT) (test code = 50 U/L 13-40 H [id number]) eGFR (test code = mL/min/1.73m2 4853852204) SPARKLE (test code = SPARKLE) Association of [...] tests). Lab Interpretation Abnormal (test code = 60831-8) [facility] WITH [id number] 23:48:14 Test Item Value Reference Range Interpretation Comments WBC (test code = See_Comment H [Automated 6890-2) message] The system which generated this result transmit jennifer reference range : 4.20 - 10.70 10*3/?L. The reference range was not used to interpret this result as normal/abnormal . RBC (test code = See_Comment [Automated 409-8) message] The system which generated this result [...] RDW-SD (test code = 50.5 fL 38.5-51.6 91758-2) RDW-CV (test code = 14.6 % 12.1-15.4 788-0) PLT (test code = See_Comment H [Automated 777-3) message] The system which generated this result transmit jennifer reference range : 150 - 328 10*3/ ?L. The reference range was not u sed to interpret th is result as normal/abnormal . MPV (test code = 10.0 fL 9.8-13 50799-6) NRBC/100 WBC (test See_Comment [Automat ed code = 5485874086) message] The system which generated this result transmit jennifer reference range : 0.0 - 10.0 /100 WBCs. The reference range was not used to interpret this result as normal/abnormal . NRBC x10^3 (test code See_Comment [Auto mated = 1206601930) message] The system which generated this result transmit jennifer reference range : 10*3/?L. The reference range was not used to interpret this result as normal/abnormal . GRAN MAT (NEUT) % 64.0 % (test code = 770-8) IMM GRAN % (test code 0.90 % = 4254733256) LYMPH % (test code = 19.0 % 736-9) MONO % (test code = 7.1 % 5905-5) EOS % (test code = 8.3 % 713-8) BASO % (test code = 0.7 % 706-2) GRAN MAT x10^3(ANC) 11.28 10*3/uL 1.99-6.95 H (test code = 4328229999) IMM GRAN x10^3 (test 0.16 10*3/uL 0-0.06 H code = 5890147993) LYMPH x10^3 (test code 3.35 10*3/uL 1.09-3.23 H = 731-0) MONO x10^3 (test code 1.25 10*3/uL 0.36-1.02 H = 742-7) EOS x10^3 (test code = 1.47 10*3/uL 0.06-0.53 H 711-2) BASO x10^3 (test code 0.13 10*3/uL 0.01-0.09 H = 704-7) Lab Interpretation Abnormal (test code = 56633-2) [facility] SARS-COV-2 ANTIGEN (BINAX NOW)2022-07-31 21:38:00 Test Item Value Reference Range Interpretation Comments POCT SARS-COV-2 ANTIGEN Not Detected Not Detected (test code = 5076) On board controls Yes acceptable with C Line (test code = 3574) SPARKLE (test code = SPARKLE) accurate development and interpretation of all internal controls Lab Interpretation Normal (test code = 55909-0) [facility]. METABOLIC PANEL (86595)2022-07-26 02:06:49 Test Item Value Reference Range Interpretation Comments NA (test code = 134 mmol/L 135-145 L 5220705552) K (test code = 3.9 mmol/L 3.5-5 9449450211) CL (test code = 99 mmol/L 98-108 7049600485) CO2 TOTAL (test code = 25 mmol/L 23-31 9294778387) AGAP (test code = 2-16 7262816756) BUN (test code = 26 mg/dL 7-23 H 1401648000) GLUCOSE (test code = 126 mg/dL 70-110 H 1291736538) CREATININE (test code = 1.53 mg/dL 0.6-1.25 H 4381002285) TOTAL BILI (test code = 0.5 mg/dL 0.1-1.9 2940880964) CALCIUM (test code = 8.8 mg/dL 8.6-10.6 1408987476) T PROTEIN (test code = 7.1 g/dL 6.3-8.2 6763099237) ALBUMIN (test code = 4.5 g/dL 3.5-5 3073341957) ALK PHOS (test code = 182 U/L 34-122 H 3440611061) ALTv (test code = 69 U/L 5-50 H 1742-6) AST(SGOT) (test code = 63 U/L 13-40 H 2712506423) eGFR (test code = mL/min/1.73m2 7830050791) SPARKLE (test code = SPARKLE) Association of [...] tests). Lab Interpretation Abnormal (test code = 79879-9) [facility] WITH [id number] 00:53:21 Test Item Value Reference Range Interpretation Comments WBC (test code = See_Comment H [Automated 6890-2) message] The system which generated this result transmit jennifer reference range : 4.20 - 10.70 10*3/?L. The reference range was not used to interpret this result as normal/abnormal . RBC (test code = See_Comment [Automated 779-8) message] The system which generated this result [...] RDW-SD (test code = 47.7 fL 38.5-51.6 32510-5) RDW-CV (test code = 13.9 % 12.1-15.4 788-0) PLT (test code = See_Comment H [Automated 777-3) message] The system which generated this result transmit jennifer reference range : 150 - 328 10*3/ ?L. The reference range was not u sed to interpret th is result as normal/abnormal . MPV (test code = 9.6 fL 9.8-13 L 53641-3) NRBC/100 WBC (test See_Comment [Automat ed code = 3450798664) message] The system which generated this result transmit jennifer reference range : 0.0 - 10.0 /100 WBCs. The reference range was not used to interpret this result as normal/abnormal . NRBC x10^3 (test code See_Comment [Auto mated = 2841834538) message] The system which generated this result transmit jennifer reference range : 10*3/?L. The reference range was not used to interpret this result as normal/abnormal . GRAN MAT (NEUT) % 68.2 % (test code = 770-8) IMM GRAN % (test code 0.50 % = 7296683339) LYMPH % (test code = 15.8 % 736-9) MONO % (test code = 6.0 % 5905-5) EOS % (test code = 8.6 % 713-8) BASO % (test code = 0.9 % 706-2) GRAN MAT x10^3(ANC) 10.65 10*3/uL 1.99-6.95 H (test code = 5343422032) IMM GRAN x10^3 (test 0.08 10*3/uL 0-0.06 H code = 4606137905) LYMPH x10^3 (test code 2.47 10*3/uL 1.09-3.23 = 731-0) MONO x10^3 (test code 0.93 10*3/uL 0.36-1.02 = 742-7) EOS x10^3 (test code = 1.34 10*3/uL 0.06-0.53 H 711-2) BASO x10^3 (test code 0.14 10*3/uL 0.01-0.09 H = 704-7) Lab Interpretation Abnormal (test code = 11120-9) [facility] [id number] 15:38:00 Test Item Value Reference Range Interpretation Comments COVID 19 Asymptomatic Negative Negative A nega tive result is IH AG (test code = presumpti ve and should COVNONPUIAG) be confirmedwit h an FDA authorized mole cular assay, if angi aragon forpatient yanet bonds.A positive result does not rule out co-inf ections withother patho gens.This test detects rufino th viable (live) and non-viable,SARS -CoV, and SARS-CoV-2. Merissa t performance dep ends on theamount of vi teresita (antigen) in th e sample.This merissa t has not been FDA cleare d or approved; the t est hasbeen authori zed by FDA under an Em ergency Use Authorizati on(EUA) for use by labo ratories certified under the CLIA thatmeet the requirements to perform moderate, high or waivedcomplexit y tests. CBC W/AUTO [id number] 14:27:00 Test Item Value Reference Range Interpretation [...] (test NO code = MDIFF) BASIC METABOLIC [id number] 14:27:00 Test Item Value Reference Range Interpretation [...] code = 9.5 mg/dL 8.0-10.5 N [place]) [id number] 13:43:41HoRoney Orantes CRNA 03/29/2021 8:44 AMIntubationDate/Time: 03/29/2021 8:25 AMUrgency: elective Airway not difficult General Information and Staff Patient location during procedure: ORResident/WEED SPRAYER: Roney Franco CRNAPerformed: resident/WEED SPRAYER Indications and Patient ConditionIndications for airway management: [...] atraumatic intubation, teeth and lips per preop assessmentUnSt. [facility] CenterPOPA GLUCOSE (AUTOMATED) 2021-03-29 12:32:08 Test Item Value Reference Range Interpretation Comments POCT GLU (test code = 0217155392) 117 mg/dL 70-110 H Lab Interpretation (test code = Abnormal 21678-2) [facility] [id number] 03:37:00 Test Item Value Reference Range Interpretation Comments Troponin-I (test code no gt See_Comment [Auto mated message] The = Troponin-I) system which g enerated this result transmit jennifer reference range : <=0.40. The reference r emanuel was not used to interpr et this result as keith l/abnormal. [facility] [id number] 03:37:00 Test Item Value Reference Range Interpretation Comments Troponin-I (test code no gt See_Comment [Auto mated message] The = Troponin-I) system which g enerated this result transmit jennifer reference range : <=0.40. The reference r emanuel was not used to interpr et this result as keith l/abnormal. [facility] [id number] 03:37:00 Test Item Value Reference Range Interpretation Comments Troponin-I (test code no gt See_Comment [Auto mated message] The = Troponin-I) system which g enerated this result transmit jennifer reference range : <=0.40. The reference r emanuel was not used to interpr et this result as keith l/abnormal. [facility] CenterRnwueanRQHUODBNOY1585-78-62 01:38:00 Test Item Value Reference Range Interpretation Comments MCV (test code = MCV) 96.3 80.0-94.0 [facility] CenterQpoablnDTDXQGLQIH6813-09-51 01:38:00 Test Item Value Reference Range Interpretation Comments Hgb (test code = Hgb) 13.6 14.0-18.0 [facility] CenterVsqthpnNKAUKWAGNK7043-88-47 01:38:00 Test Item Value Reference Range Interpretation Comments RBC (test code = RBC) 4.31 4.70-6.10 [facility] CenterMrbhrhtAXGIUQPWYU9018-33-24 01:38:00 Test Item Value Reference Range Interpretation Comments Hct (test code = Hct) 41.6 42.0-54.0 [facility] CenterLsrmmksECDSSBJIHW6604-74-84 01:38:00 Test Item Value Reference Range Interpretation Comments MCH (test code = MCH) 31.6 pg 27.0-31.0 [facility] CenterIbpavmzCIVYLBAXIU6367-17-02 01:38:00 Test Item Value Reference Range Interpretation Comments WBC (test code = WBC) 11.9 3.7-10.4 [facility] [id number] 01:38:00 Test Item Value Reference Range Interpretation Comments Troponin-I (test code no gt See_Comment [Auto mated message] The = Troponin-I) system which g enerated this result transmit jennifer reference range : <=0.40. The reference r emanuel was not used to interpr et this result as keith l/abnormal. [facility] [id number] 01:38:00 Test Item Value Reference Range Interpretation Comments CK MB (test code = CK MB) 3.0 0.5-3.6 [facility] [id number] 01:38:00 Test Item Value Reference Range Interpretation Comments Creatinine Lvl (test code = Creatinine 1.1 0.5-1.4 Lvl) [facility]2015-06-30 01:38:00 Test Item Value Reference Range Interpretation Comments Sodium Lvl (test code = Sodium Lvl) 138 135-145 [facility]2015-06-30 01:38:00 Test Item Value Reference Range Interpretation Comments Potassium Lvl (test code = Potassium 3.7 3.5-5.1 Lvl) [facility]2015-06-30 01:38:00 Test Item Value Reference Range Interpretation Comments BUN (test code = BUN) 7 7-22 [place] 148815-06-30 01:38:00 Test Item Value Reference Range Interpretation Comments ALT (test code = ALT) 27 See_Comment [Auto mated message] The system which ge nerated this result transmit jennifer reference range : <=65. The reference range was not used to interpr et this result as keith l/abnormal. [facility]2015-06-30 01:38:00 Test Item Value Reference Range Interpretation Comments Albumin Lvl (test code = Albumin Lvl) 3.9 3.5-5.0 [facility]2015-06-30 01:38:00 Test Item Value Reference Range Interpretation Comments Alk Phos (test code = Alk Phos) 93 39-136 [facility]2015-06-30 01:38:00 Test Item Value Reference Range Interpretation Comments Glucose Lvl (test code = Glucose Lvl) 91 70-99 [facility]2015-06-30 01:38:00 Test Item Value Reference Range Interpretation Comments Total Protein (test code = Total 7.1 6.4-8.4 Protein) [facility]2015-06-30 01:38:00 Test Item Value Reference Range Interpretation Comments AST (test code = AST) 15 See_Comment [Auto mated message] The system which ge nerated this result transmit jennifer reference range : <=37. The reference range was not used to interpr et this result as keith l/abnormal. [facility]2015-06-30 01:38:00 Test Item Value Reference Range Interpretation Comments CO2 (test code = CO2) 26 24-32 [facility]2015-06-30 01:38:00 Test Item Value Reference Range Interpretation Comments Calcium Lvl (test code = Calcium Lvl) 8.7 8.5-10.5 [facility]2015-06-30 01:38:00 Test Item Value Reference Range Interpretation Comments Bili Total (test code = Bili Total) 0.3 0.2-1.3 [facility]2015-06-30 01:38:00 Test Item Value Reference Range Interpretation Comments Chloride Lvl (test code = Chloride Lvl) 107 95-109 [facility]2015-06-30 01:38:00 Test Item Value Reference Range Interpretation Comments eGFR (test code = eGFR) 80 [facility]2015-06-30 01:38:00 Test Item Value Reference Range Interpretation Comments A/G Ratio (test code = A/G Ratio) 1.2 0.7-1.6 [place] 148815-06-30 01:38:00 Test Item Value Reference Range Interpretation Comments B/C Ratio (test code = B/C Ratio) 6 6-25 [facility]2015-06-30 01:38:00 Test Item Value Reference Range Interpretation Comments Globulin (test code = Globulin) 3.2 2.0-4.0 [facility]2015-06-30 01:38:00 Test Item Value Reference Range Interpretation Comments AGAP (test code = AGAP) 8.7 10.0-20.0 [facility] CenterIyezocpELUHMOQCJT5385-13-04 01:38:00 Test Item Value Reference Range Interpretation Comments Eosinophils # (test code 0.4 See_Comment [A utomated message] The = Eosinophils #) system whic h generated this result tra nsmitted reference range : <=0.5. The reference r emanuel was not used to int erpret this result as normal/abnormal . [facility] CenterWehbswlBSGKEDXHTI6949-33-82 01:38:00 Test Item Value Reference Range Interpretation Comments Basophils # (test code 0.1 See_Comment [Aut omated message] The = Basophils #) system which generated this result tra nsmitted reference range : <=0.2. The reference r emanuel was not used to int erpret this result as normal/abnormal . [facility] CenterHauvmrzHBOVDESIMI5611-09-65 01:38:00 Test Item Value Reference Range Interpretation Comments Lymphocytes # (test code = Lymphocytes 3.5 1.0-5.5 #) [facility] CenterYvjafrdHWGECDKHZW7183-00-06 01:38:00 Test Item Value Reference Range Interpretation Comments MPV (test code = MPV) 8.4 7.4-10.4 [facility] CenterKddiscgSMDLBBAADS2748-43-61 01:38:00 Test Item Value Reference Range Interpretation Comments Monocytes # (test code 0.8 See_Comment [Aut omated message] The = Monocytes #) system which generated this result tra nsmitted reference range : <=0.8. The reference r emanuel was not used to int erpret this result as normal/abnormal . [facility] CenterIljpzekIRANXHXWGN4003-14-49 01:38:00 Test Item Value Reference Range Interpretation Comments Eosinophils (test code = 3.0 See_Comment [A utomated message] The Eosinophils) system which ge nerated this result tra nsmitted reference range : <=4.0. The reference r emanuel was not used to int erpret this result as normal/abnormal . [facility] CenterOpynsdyMJDRVXMQLL2192-94-85 01:38:00 Test Item Value Reference Range Interpretation Comments Monocytes (test code = Monocytes) 7.0 2.0-12.0 [facility] CenterCiqfqqpHWIRRPRWUX0609-65-48 01:38:00 Test Item Value Reference Range Interpretation Comments Segs-Bands # (test code = Segs-Bands #) 7.1 1.5-8.1 [facility] CenterEnxljpmNTXLTDHCDR3516-82-54 01:38:00 Test Item Value Reference Range Interpretation Comments Basophils (test code = 0.8 See_Comment [Aut omated message] The Basophils) system which ge nerated this result tra nsmitted reference range : <=1.0. The reference r emanuel was not used to int erpret this result as normal/abnormal . [facility] CenterBcqxtimSGDKWOYWPI9872-38-07 01:38:00 Test Item Value Reference Range Interpretation Comments Platelet (test code = Platelet) 276 133-450 [facility] CenterFbjzwmuYECZQRJZMT0982-63-78 01:38:00 Test Item Value Reference Range Interpretation Comments Segs (test code = Segs) 59.6 45.0-75.0 [facility] CenterYgijopuLTHMATMJIN0222-23-07 01:38:00 Test Item Value Reference Range Interpretation Comments Lymphocytes (test code = Lymphocytes) 29.6 20.0-40.0 [facility] CenterDxhyhexVZFQJQDFHW5717-95-73 01:38:00 Test Item Value Reference Range Interpretation Comments INR (test code = INR) 0.96 0.85-1.17 [facility]IcmlrevSVXYGXBNAY0640-17-11 01:38:00 Test Item Value Reference Range Interpretation Comments PTT (test code = PTT) 32.0 s 22.9-35.8 [facility] CenterYarmfpnDXDWFSJPTP3482-98-29 01:38:00 Test Item Value Reference Range Interpretation Comments PT (test code = PT) 12.8 s 12.0-14.7 [facility] HospitalQirmrdcPLSBQPHHRR7871-34-32 01:38:00 Test Item Value Reference Range Interpretation Comments MCV (test code = MCV) 96.3 80.0-94.0 [facility] CenterBhwruscUHIJTNRBGO0098-01-88 01:38:00 Test Item Value Reference Range Interpretation Comments RDW (test code = RDW) 14.4 11.5-14.5 [facility] CenterGjriohiBWNKRXDWRY7165-79-54 01:38:00 Test Item Value Reference Range Interpretation Comments MCHC (test code = MCHC) 32.8 32.0-36.0 [facility] HospitalDretvuiPLFUJUGBND4102-31-76 01:38:00 Test Item Value Reference Range Interpretation Comments Hgb (test code = Hgb) 13.6 14.0-18.0 [facility] CenterZcstpwcVZPLAMNYGY2872-85-60 01:38:00 Test Item Value Reference Range Interpretation Comments RBC (test code = RBC) 4.31 4.70-6.10 [facility] CenterPnbdypiEFPMMLPGBS1749-11-23 01:38:00 Test Item Value Reference Range Interpretation Comments Hct (test code = Hct) 41.6 42.0-54.0 [facility] HospitalXrwzonzVQCJOIVTZK9532-20-78 01:38:00 Test Item Value Reference Range Interpretation Comments MCH (test code = MCH) 31.6 pg 27.0-31.0 [facility] HospitalGtlgwnoYMENAQPAHL5856-12-99 01:38:00 Test Item Value Reference Range Interpretation Comments WBC (test code = WBC) 11.9 3.7-10.4 [facility] YKZMZLI8387-36-17 01:38:00 Test Item Value Reference Range Interpretation Comments Troponin-I (test code no gt See_Comment [Auto mated message] The = Troponin-I) system which g enerated this result transmit jennifer reference range : <=0.40. The reference r emanuel was not used to interpr et this result as keith l/abnormal. [facility] HospitalRealCrowd QJNBNHG8773-38-52 01:38:00 Test Item Value Reference Range Interpretation Comments CK MB (test code = CK MB) 3.0 0.5-3.6 [facility]2015-06-30 01:38:00 Test Item Value Reference Range Interpretation Comments Creatinine Lvl (test code = Creatinine 1.1 0.5-1.4 Lvl) [facility]2015-06-30 01:38:00 Test Item Value Reference Range Interpretation Comments Sodium Lvl (test code = Sodium Lvl) 138 135-145 [facility] HospitalInbilin [id number] 01:38:00 Test Item Value Reference Range Interpretation Comments Potassium Lvl (test code = Potassium 3.7 3.5-5.1 Lvl) [facility] HospitalPeanut LabsFR[facility] CAMPUSEUNXJ7424-17-24 01:38:00 Test Item Value Reference Range Interpretation Comments BUN (test code = BUN) 7 7-22 [facility] HospitalInbilin [id number] 01:38:00 Test Item Value Reference Range Interpretation Comments ALT (test code = ALT) 27 See_Comment [Auto mated message] The system which ge nerated this result transmit jennifer reference range : <=65. The reference range was not used to interpr et this result as keith l/abnormal. [facility] HospitalInbilin MLHXB9752-29-08 01:38:00 Test Item Value Reference Range Interpretation Comments Albumin Lvl (test code = Albumin Lvl) 3.9 3.5-5.0 [facility]Real[facility] IZZULKE3796-21-40 01:38:00 Test Item Value Reference Range Interpretation Comments Troponin-I (test code no gt See_Comment [Auto mated message] The = Troponin-I) system which g enerated this result transmit jennifer reference range : <=0.40. The reference r emanuel was not used to interpr et this result as keith l/abnormal. [facility]Real[facility]d JKILDDN2199-29-79 01:38:00 Test Item Value Reference Range Interpretation Comments CK MB (test code = CK MB) 3.0 0.5-3.6 [facility] HospitalAmplitude JJUCE3760-26-23 01:38:00 Test Item Value Reference Range Interpretation Comments Creatinine Lvl (test code = Creatinine 1.1 0.5-1.4 Lvl) [facility]2015-06-30 01:38:00 Test Item Value Reference Range Interpretation Comments Sodium Lvl (test code = Sodium Lvl) 138 135-145 [facility]2015-06-30 01:38:00 Test Item Value Reference Range Interpretation Comments Potassium Lvl (test code = Potassium 3.7 3.5-5.1 Lvl) [facility]2015-06-30 01:38:00 Test Item Value Reference Range Interpretation Comments BUN (test code = BUN) 7 7-22 [facility]2015-06-30 01:38:00 Test Item Value Reference Range Interpretation Comments ALT (test code = ALT) 27 See_Comment [Auto mated message] The system which ge nerated this result transmit jennifer reference range : <=65. The reference range was not used to interpr et this result as keith l/abnormal. [facility]2015-06-30 01:38:00 Test Item Value Reference Range Interpretation Comments Alk Phos (test code = Alk Phos) 93 39-136 [facility]2015-06-30 01:38:00 Test Item Value Reference Range Interpretation Comments Albumin Lvl (test code = Albumin Lvl) 3.9 3.5-5.0 [facility]2015-06-30 01:38:00 Test Item Value Reference Range Interpretation Comments Alk Phos (test code = Alk Phos) 93 39-136 [facility]2015-06-30 01:38:00 Test Item Value Reference Range Interpretation Comments Glucose Lvl (test code = Glucose Lvl) 91 70-99 [facility]2015-06-30 01:38:00 Test Item Value Reference Range Interpretation Comments Total Protein (test code = Total 7.1 6.4-8.4 Protein) [facility]2015-06-30 01:38:00 Test Item Value Reference Range Interpretation Comments AST (test code = AST) 15 See_Comment [Auto mated message] The system which ge nerated this result transmit jennifer reference range : <=37. The reference range was not used to interpr et this result as keith l/abnormal. [facility]2015-06-30 01:38:00 Test Item Value Reference Range Interpretation Comments CO2 (test code = CO2) 26 24-32 [facility]2015-06-30 01:38:00 Test Item Value Reference Range Interpretation Comments Calcium Lvl (test code = Calcium Lvl) 8.7 8.5-10.5 [facility]2015-06-30 01:38:00 Test Item Value Reference Range Interpretation Comments Bili Total (test code = Bili Total) 0.3 0.2-1.3 [facility]2015-06-30 01:38:00 Test Item Value Reference Range Interpretation Comments Chloride Lvl (test code = Chloride Lvl) 107 95-109 [facility]2015-06-30 01:38:00 Test Item Value Reference Range Interpretation Comments eGFR (test code = eGFR) 80 [facility]2015-06-30 01:38:00 Test Item Value Reference Range Interpretation Comments A/G Ratio (test code = A/G Ratio) 1.2 0.7-1.6 [facility]2015-06-30 01:38:00 Test Item Value Reference Range Interpretation Comments B/C Ratio (test code = B/C Ratio) 6 6-25 [facility]2015-06-30 01:38:00 Test Item Value Reference Range Interpretation Comments Globulin (test code = Globulin) 3.2 2.0-4.0 [facility]2015-06-30 01:38:00 Test Item Value Reference Range Interpretation Comments AGAP (test code = AGAP) 8.7 10.0-20.0 [facility] CenterYarxljcZSXUZXTXFH8632-93-35 01:38:00 Test Item Value Reference Range Interpretation Comments Eosinophils # (test code 0.4 See_Comment [A utomated message] The = Eosinophils #) system whic h generated this result tra nsmitted reference range : <=0.5. The reference r emanuel was not used to int erpret this result as normal/abnormal . [facility] CenterFwrnaoyALVHYDSARI1898-47-32 01:38:00 Test Item Value Reference Range Interpretation Comments Basophils # (test code 0.1 See_Comment [Aut omated message] The = Basophils #) system which generated this result tra nsmitted reference range : <=0.2. The reference r emanuel was not used to int erpret this result as normal/abnormal . [facility]SbxycahDCABXESZLZ2058-93-14 01:38:00 Test Item Value Reference Range Interpretation Comments Lymphocytes # (test code = Lymphocytes 3.5 1.0-5.5 #) [facility]UtjqzrfWXSVQGMTHV2211-61-88 01:38:00 Test Item Value Reference Range Interpretation Comments Monocytes # (test code 0.8 See_Comment [Aut omated message] The = Monocytes #) system which generated this result tra nsmitted reference range : <=0.8. The reference r emanuel was not used to int erpret this result as normal/abnormal . [facility] CenterHlpcfywXFKMEPXKJW5518-61-26 01:38:00 Test Item Value Reference Range Interpretation Comments Eosinophils (test code = 3.0 See_Comment [A utomated message] The Eosinophils) system which ge nerated this result tra nsmitted reference range : <=4.0. The reference r emanuel was not used to int erpret this result as normal/abnormal . [facility] CenterLqquavgCOWTYJHUZI6916-30-82 01:38:00 Test Item Value Reference Range Interpretation Comments Monocytes (test code = Monocytes) 7.0 2.0-12.0 [facility] CenterJutdadaNAFSQGLJUD8812-24-12 01:38:00 Test Item Value Reference Range Interpretation Comments Segs-Bands # (test code = Segs-Bands #) 7.1 1.5-8.1 [facility] CenterTngfteiIYQNXGLFQW1606-62-02 01:38:00 Test Item Value Reference Range Interpretation Comments Basophils (test code = 0.8 See_Comment [Aut omated message] The Basophils) system which ge nerated this result tra nsmitted reference range : <=1.0. The reference r emanuel was not used to int erpret this result as normal/abnormal . [facility] CenterFdxphlxRAGAIUMKKS9803-29-82 01:38:00 Test Item Value Reference Range Interpretation Comments Segs (test code = Segs) 59.6 45.0-75.0 [facility]YmpsfbiTCVBQVVCYZ7654-54-78 01:38:00 Test Item Value Reference Range Interpretation Comments Lymphocytes (test code = Lymphocytes) 29.6 20.0-40.0 [facility]EnnqvqsMTEQOSRMWV5325-10-20 01:38:00 Test Item Value Reference Range Interpretation Comments INR (test code = INR) 0.96 0.85-1.17 [facility] CenterGbjmkfkSJZMBEEKTU8791-11-34 01:38:00 Test Item Value Reference Range Interpretation Comments PTT (test code = PTT) 32.0 s 22.9-35.8 [facility]IjmftcnBRVIEBTIWJ7665-79-66 01:38:00 Test Item Value Reference Range Interpretation Comments PT (test code = PT) 12.8 s 12.0-14.7 [facility] CenterJdazfjxYOLNTCECGQ3779-05-00 01:38:00 Test Item Value Reference Range Interpretation Comments RDW (test code = RDW) 14.4 11.5-14.5 [facility] CenterYlaknsgWTYITHWSRE1724-44-07 01:38:00 Test Item Value Reference Range Interpretation Comments MCHC (test code = MCHC) 32.8 32.0-36.0 [facility]MeetnivKNFJQAYDKB0834-30-22 01:38:00 Test Item Value Reference Range Interpretation Comments MPV (test code = MPV) 8.4 7.4-10.4 [facility]2015-06-30 01:38:00 Test Item Value Reference Range Interpretation Comments Glucose Lvl (test code = Glucose Lvl) 91 70-99 [facility] CenterFblkpxjXNYXTHSGNF2724-20-58 01:38:00 Test Item Value Reference Range Interpretation Comments Platelet (test code = Platelet) 276 133-450 [facility] CenterOplvrcpUSAQKFXZWP7656-58-01 01:38:00 Test Item Value Reference Range Interpretation Comments MCV (test code = MCV) 96.3 80.0-94.0 [facility] CenterMafgfzwPFWIOEIGQD7720-93-89 01:38:00 Test Item Value Reference Range Interpretation Comments Hgb (test code = Hgb) 13.6 14.0-18.0 [facility] CenterTfvfrowKGTQGHSORN7824-92-75 01:38:00 Test Item Value Reference Range Interpretation Comments RBC (test code = RBC) 4.31 4.70-6.10 [facility] CenterDggcazuCBKCXIDDGC3089-24-76 01:38:00 Test Item Value Reference Range Interpretation Comments Hct (test code = Hct) 41.6 42.0-54.0 [facility] CenterQcwrxpyJCFTDWEHWN9556-32-99 01:38:00 Test Item Value Reference Range Interpretation Comments MCH (test code = MCH) 31.6 pg 27.0-31.0 [place] 475685-06-30 01:38:00 Test Item Value Reference Range Interpretation Comments WBC (test code = WBC) 11.9 3.7-10.4 [facility]2015-06-30 01:38:00 Test Item Value Reference Range Interpretation Comments Total Protein (test code = Total 7.1 6.4-8.4 Protein) [facility]2015-06-30 01:38:00 Test Item Value Reference Range Interpretation Comments AST (test code = AST) 15 See_Comment [Auto mated message] The system which ge nerated this result transmit jennifer reference range : <=37. The reference range was not used to interpr et this result as keith l/abnormal. [facility]2015-06-30 01:38:00 Test Item Value Reference Range Interpretation Comments CO2 (test code = CO2) 26 24-32 [facility]2015-06-30 01:38:00 Test Item Value Reference Range Interpretation Comments Calcium Lvl (test code = Calcium Lvl) 8.7 8.5-10.5 [facility]2015-06-30 01:38:00 Test Item Value Reference Range Interpretation Comments Bili Total (test code = Bili Total) 0.3 0.2-1.3 [facility]2015-06-30 01:38:00 Test Item Value Reference Range Interpretation Comments Chloride Lvl (test code = Chloride Lvl) 107 95-109 [facility]2015-06-30 01:38:00 Test Item Value Reference Range Interpretation Comments eGFR (test code = eGFR) 80 [facility]2015-06-30 01:38:00 Test Item Value Reference Range Interpretation Comments A/G Ratio (test code = A/G Ratio) 1.2 0.7-1.6 [facility]2015-06-30 01:38:00 Test Item Value Reference Range Interpretation Comments B/C Ratio (test code = B/C Ratio) 6 6-25 [facility]2015-06-30 01:38:00 Test Item Value Reference Range Interpretation Comments Globulin (test code = Globulin) 3.2 2.0-4.0 [facility]2015-06-30 01:38:00 Test Item Value Reference Range Interpretation Comments AGAP (test code = AGAP) 8.7 10.0-20.0 [facility] CenterHnacbesRUMJLUGCGI8794-21-91 01:38:00 Test Item Value Reference Range Interpretation Comments Eosinophils # (test code 0.4 See_Comment [A utomated message] The = Eosinophils #) system whic h generated this result tra nsmitted reference range : <=0.5. The reference r emanuel was not used to int erpret this result as normal/abnormal . [facility] CenterFhveqwaTZOBOMTUNQ3525-25-25 01:38:00 Test Item Value Reference Range Interpretation Comments Basophils # (test code 0.1 See_Comment [Aut omated message] The = Basophils #) system which generated this result tra nsmitted reference range : <=0.2. The reference r emanuel was not used to int erpret this result as normal/abnormal . [facility] CenterLwllaedSDWULMZLWE9276-90-75 01:38:00 Test Item Value Reference Range Interpretation Comments Lymphocytes # (test code = Lymphocytes 3.5 1.0-5.5 #) [facility] CenterIjqdcixPLAJELRWBK4985-90-39 01:38:00 Test Item Value Reference Range Interpretation Comments Monocytes # (test code 0.8 See_Comment [Aut omated message] The = Monocytes #) system which generated this result tra nsmitted reference range : <=0.8. The reference r emanuel was not used to int erpret this result as normal/abnormal . [facility] CenterFirnxfxBWZHUECYOV3161-80-11 01:38:00 Test Item Value Reference Range Interpretation Comments Eosinophils (test code = 3.0 See_Comment [A utomated message] The Eosinophils) system which ge nerated this result tra nsmitted reference range : <=4.0. The reference r emanuel was not used to int erpret this result as normal/abnormal . [facility] CenterWbdxogeVZVYYROPJT5330-86-77 01:38:00 Test Item Value Reference Range Interpretation Comments Monocytes (test code = Monocytes) 7.0 2.0-12.0 [facility] CenterCwaaoqmNFVUAYOCSA1593-79-16 01:38:00 Test Item Value Reference Range Interpretation Comments Segs-Bands # (test code = Segs-Bands #) 7.1 1.5-8.1 [facility] CenterHngmxpvZSPYIKMKQJ2840-63-76 01:38:00 Test Item Value Reference Range Interpretation Comments Basophils (test code = 0.8 See_Comment [Aut omated message] The Basophils) system which ge nerated this result tra nsmitted reference range : <=1.0. The reference r emanuel was not used to int erpret this result as normal/abnormal . [facility] CenterMnueexoERKOCIUPDP9883-47-08 01:38:00 Test Item Value Reference Range Interpretation Comments Segs (test code = Segs) 59.6 45.0-75.0 [facility] CenterNyuxojbXEZXXTCJJL3996-15-84 01:38:00 Test Item Value Reference Range Interpretation Comments Lymphocytes (test code = Lymphocytes) 29.6 20.0-40.0 [facility] CenterLbnwujgYCWJNAEITF0457-40-98 01:38:00 Test Item Value Reference Range Interpretation Comments INR (test code = INR) 0.96 0.85-1.17 [facility] CenterBkguxlgSCNWDSTTVP4283-17-98 01:38:00 Test Item Value Reference Range Interpretation Comments PTT (test code = PTT) 32.0 s 22.9-35.8 [facility] CenterGlawjqhIEGQKBFILE6268-58-52 01:38:00 Test Item Value Reference Range Interpretation Comments PT (test code = PT) 12.8 s 12.0-14.7 [facility] CenterLjqaenhCJDSTBIKRC5054-95-58 01:38:00 Test Item Value Reference Range Interpretation Comments RDW (test code = RDW) 14.4 11.5-14.5 [facility] CenterLjvoqksACIDJZPKOF6926-04-03 01:38:00 Test Item Value Reference Range Interpretation Comments MCHC (test code = MCHC) 32.8 32.0-36.0 [facility] CenterOeayrnvBJEPDIDKEI2697-40-87 01:38:00 Test Item Value Reference Range Interpretation Comments MPV (test code = MPV) 8.4 7.4-10.4 [facility] CenterHyhcjfjJDOSZCGIPS2262-36-88 01:38:00 Test Item Value Reference Range Interpretation Comments Platelet (test code = Platelet) 336 324-703 [facility]
--- NOTE | 2023-01-20 22:07 | RAD REPORT ---
EXAM DESCRIPTION: CT - Ct Stroke Brain Wo Cont - 01/20/2023 9:55 pm CLINICAL HISTORY: STROKE ALERT COMPARISON: <Comparisons> TECHNIQUE: All CT scans are performed using dose optimization technique as appropriate and may inclu de automated exposure control or mA/KV adjustment according to patient size. FINDINGS: No intracranial hemorrhage, hydrocephalus or extra-axial fluid collection.No areas of brai n edema or evidence of midline shift. The paranasal sinuses and mastoids are clear. The calvarium is intact. IMPRESSION: No acute intracranial abnormality. Conveyed to Dr. Lutz by Dr. Manzo at 1002 on 01/20/23.
[2023-01-20 22:19] LABS: Potassium 3.7 mmol/L (3.5-5.1); Troponin High Sensitivity 4.3 pg/mL (<58.9)
--- NOTE | 2023-01-20 22:32 | RAD REPORT ---
EXAM DESCRIPTION: RAD - Chest Single View - 01/20/2023 10:26 pm CLINICAL HISTORY: cva COMPARISON: Chest Single View dated 06/08/2017; CHEST SINGLE VIEW dated 01/14/2015; CHEST SINGLE VIEW dated 08/15/2014; CHEST SINGLE VIEW dated 09/19/2013; Abdomen Pelvis W Contrast dated 12/20/2022 FINDINGS: Lines: None. Lungs: Increased prominence of the pulmonary interstitium. Pleural: No significant pleural effusions or pneumothorax. Cardiac: The heart size is within normal limits. Loop recorder overlies the heart. Mediastinum: Within normal limits. Bones: No acute fractures. Other: None IMPRESSION: Increased interstitial prominence that could reflect mild edema.
[2023-01-20 22:36] LABS: Protime INR 1.02
--- NOTE | 2023-01-20 23:08 | ER ---
Nurse's Notes [facility] Name: Cindy Mays Age: 62 yrs Sex: Male : 1960 Arrival Date: 01/20/2023 Time: 21:12 Bed 7 Private MD: Diagnosis: Left sided numbness Presentation: 01/20 21:24 Chief complaint: Patient states: The left side of my face went numb about 3 hour before kd3 I got here. They said that the last time this happened was a TIA. It feels like I have muscle spasms on my head. I was not having any symptoms around 9 or 10 this morning. 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 Ebola Screen: No symptoms or risks identified at this time. Initial Sepsis Screen: Does the patient meet any 2 criteria? No. Patient's initial sepsis screen is negative. Does the patient have a suspected source of infection? No. Patient's initial sepsis screen is negative. Risk Assessment: Do you want to hurt yourself or someone else? Patient reports no desire to harm self or others. Onset of symptoms was January 20, 2023. 21:24 Method Of Arrival: Ambulatory kd3 21:24 Acuity: ELENO 3 kd3 Triage Assessment: 21:29 General: Appears in no apparent distress. Behavior is calm, cooperative. Pain: Denies kd3 pain. Historical: - Allergies: 21:29 Morphine; kd3 - PMHx: 21:29 clot in heart; High Cholesterol; Hypothyroidism; Hypertension; diabetes mellitus; kd3 Congestive heart failure; TIA; - Immunization history:: Adult Immunizations up to date. - Social history:: Smoking status: Patient/guardian denies using tobacco, the patient reports quitting approximately 8 years ago. - Family history:: not pertinent. Screenin:10 Abuse screen: Denies threats or abuse. Denies injuries from another. Nutritional ha1 screening: No deficits noted. Tuberculosis screening: No symptoms or risk factors identified. 23:10 [facility] ED Fall Risk Assessment (Adult) History of falling in the last 3 months, ha1 including since admission No falls in past 3 months (0 pts) Confusion or Disorientation No (0 pts) Intoxicated or Sedated No (0 pts) Impaired Gait Yes (1 pt) Mobility Assist Device Used No (0 pt) Altered Elimination No (0 pt). Assessment: 23:00 General: Appears comfortable, Behavior is calm, cooperative. Pain: Denies pain. Neuro: ha1 Level of Consciousness is awake, alert, obeys commands, Oriented to person, place, time, situation, Reports weakness left side of face. Cardiovascular: Patient's skin is warm and dry. Respiratory: Airway is patent Respiratory effort is even, unlabored, Respiratory pattern is regular, symmetrical, Breath sounds are clear bilaterally. GI: Abdomen is non-distended, obese, Bowel sounds present X 4 quads. : No signs and/or symptoms were reported regarding the genitourinary system. Derm: Skin is pink, warm \T\ dry. Musculoskeletal: Circulation, motion, and sensation intact. Range of motion: intact in all extremities. 23:45 Reassessment: pt. reports not being able to open eyes. Care provider in the room. ha1 01/21 00:00 Reassessment: Patient and/or family updated on plan of care and expected duration. Pain ha1 level reassessed. Patient is alert, oriented x 3, equal unlabored respirations, skin warm/dry/pink. able to open eyes. Vital Signs: 01/20 21:24 Pulse 105; Resp 19; Temp 98.7(O); Pulse Ox 97% ; Weight 104.33 kg; Height 5 ft. 10 in. kd3 (177.80 cm); Pain 0/10; 21:30 BP 147 / 81; kd3 23:00 BP 145 / 80; Pulse 95; Resp 18 S; Pulse Ox 98% on R/A; ha1 21:24 Body Mass Index 33.00 (104.33 kg, 177.80 cm) kd3 ED Course: 21:12 Patient arrived in ED. ag3 21:18 Donte Lutz MD is Attending Physician. rt 21:29 Triage completed. kd3 21:30 Arm band placed on right wrist. kd3 21:51 Basic Metabolic Panel Sent. bc6 21:51 CBC with Diff Sent. bc6 21:51 High Sensitivity Troponin Sent. bc6 21:51 Protime (+inr) Sent. bc6 21:51 Ptt, Activated Sent. bc6 21:51 Inserted saline lock: 20 gauge in left antecubital area, using aseptic technique. bc6 21:57 CT Stroke Brain w/o Contrast In Process Unspecified. EDMS 22:27 Stroke CXR 1 View In Process Unspecified. EDMS 23:07 Gerard Perrin MD is Hospitalizing Provider. rt 23:10 Patient has correct armband on for positive identification. Placed in gown. Bed in low ha1 position. Call light in reach. Side rails up X 1. 23:25 Brenda Aguillon, ANALI is Primary Nurse. ha1 01/21 00:05 ABG Sent. ha1 00:15 No provider procedures requiring assistance completed. ha1 00:15 Patient admitted, IV remains in place. ha1 Administered Medications: 01/20 23:35 Drug: Aspirin 325 mg Route: PO; ha1 23:40 Drug: NS 0.9% 1000 ml Route: IV; Rate: 1 bolus; Site: left antecubital; ha1 01/21 01:00 Follow up: Response: No adverse reaction; IV Status: Completed infusion; IV Intake: ha1 1000ml 00:05 Drug: Albuterol - atroVENT (ipratropium) (3:1) (2.5 mg - 0.5 mg) 3 ml Route: Nebulizer; ha1 00:40 Follow up: Response: No adverse reaction ha1 00:28 Drug: SOLU-Medrol (methylPrednisoLONE) 125 mg Route: IVP; Site: left antecubital; ha1 01:00 Follow up: Response: No adverse reaction ha1 01:50 Not Given (Physician Discretion): Insulin Regular Human 8 units Sub-Q once ha1 02:45 Drug: Tessalon Perle (benzonatate) 100 mg Route: PO; ha1 Medication: 01/20 23:10 VIS not applicable for this client. ha1 Intake: 01/21 01:00 IV: 1000ml; Total: 1000ml. ha1 Outcome: 01/20 23:07 Decision to Hospitalize by Provider. rt 01/21 00:15 Admitted to ER Hold. Please see [facility] for further documentation. ha1 Condition: stable 00:15 Discharge instructions given to patient, Instructed on the need for admit, Demonstrated ha1 understanding of instructions. 11:27 Patient left the ED. bp Signatures: Dispatcher [employer] EDMS Yves Kirkland RN RN bp Gomez, Alice ag3 Elyssa Powers RN RN kd3 Brenda Aguillon RN RN ha1 Donte Lutz MD MD rt Sofia Aponte 6
--- NOTE | 2023-01-20 23:08 | EDPHYS ---
Physician Documentation [facility] Name: Cindy Mays Age: 62 yrs Sex: Male : 1960 Arrival Date: 01/20/2023 Time: 21:12 Bed 7 Private MD: ED Physician Donte Lutz HPI: 01/20 22:34 This 62 yrs old Male presents to ER via Ambulatory with complaints of Numbness Of Face. rt 22:34 Patient presents to the ED with left-sided facial numbness. He first noticed it about 3 rt hours prior to arrival, however, he states that his last known normal time was at 9 AM. He is unclear the exact timing of the onset of the symptoms. He reports having a blurred vision in his left eye as well. Denies any weakness. Denies other acute complaints at this time. Symptoms are moderate severity, no other aggravating or alleviating factors.. Historical: - Allergies: 21:29 Morphine; kd3 - PMHx: 21:29 clot in heart; High Cholesterol; Hypothyroidism; Hypertension; diabetes mellitus; kd3 Congestive heart failure; TIA; - Immunization history:: Adult Immunizations up to date. - Social history:: Smoking status: Patient/guardian denies using tobacco, the patient reports quitting approximately 8 years ago. - Family history:: not pertinent. ROS: 22:34 Constitutional: Negative for fever, chills, and weight loss, Cardiovascular: Negative rt for chest pain, palpitations, and edema, Respiratory: Negative for shortness of breath, cough, wheezing, and pleuritic chest pain, Abdomen/GI: Negative for abdominal pain, nausea, vomiting, diarrhea, and constipation, MS/Extremity: Negative for injury and deformity, Skin: Negative for injury, rash, and discoloration, Psych: Negative for depression, anxiety, suicide ideation, homicidal ideation, and hallucinations. 22:34 Neuro: Positive for numbness, Negative for weakness. Exam: 22:34 Radiologist reports: No acute findings rt 22:34 Constitutional: This is a well developed, well nourished patient who is awake, alert, and in no acute distress. Head/Face: Normocephalic, atraumatic. Chest/axilla: Normal chest wall appearance and motion. Nontender with no deformity. No lesions are appreciated. Cardiovascular: Regular rate and rhythm with a normal S1 and S2. No gallops, murmurs, or rubs. Normal PMI, no JVD. No pulse deficits. Respiratory: Lungs have equal breath sounds bilaterally, clear to auscultation and percussion. No rales, rhonchi or wheezes noted. No increased work of breathing, no retractions or nasal flaring. Abdomen/GI: Soft, non-tender, with normal bowel sounds. No distension or tympany. No guarding or rebound. No evidence of tenderness throughout. MS/ Extremity: Pulses equal, no cyanosis. Neurovascular intact. Full, normal range of motion. Psych: Awake, alert, with orientation to person, place and time. Behavior, mood, and affect are within normal limits. 22:34 Neuro: Sensory deficit to the left side of the face as well as the left lower extremity, strength intact in upper and lower extremities, no other sensory deficits, cranial nerves are intact, no visual field deficits, speech normal. 23:04 ECG was reviewed by the Attending Physician. rt Vital Signs: 21:24 Pulse 105; Resp 19; Temp 98.7(O); Pulse Ox 97% ; Weight 104.33 kg; Height 5 ft. 10 in. kd3 (177.80 cm); Pain 0/10; 21:30 BP 147 / 81; kd3 23:00 BP 145 / 80; Pulse 95; Resp 18 S; Pulse Ox 98% on R/A; ha1 21:24 Body Mass Index 33.00 (104.33 kg, 177.80 cm) kd3 MDM: 21:33 Patient medically screened. rt 23:07 Differential diagnosis: CVA, TIA. Data reviewed: vital signs, nurses notes, lab test rt result(s), EKG, radiologic studies. Consideration of Admission/Observation Patient was admitted/placed on observation. Management of patient was discussed with the following: Hospitalist: Agrees to admit. I considered the following discharge prescriptions or medication management in the emergency department Medications were administered in the Emergency Department. See MAR. Discussion of test interpretation with radiology: I had a discussion with radiology regarding a test interpretation. No acute findings on CT scan. Test considered but Not performed: CT: Van negative, low suspicion for LVO, with elevated creatinine, risks of contrast bolused greater than risk of large vessel occlusion, will defer CT angiography to inpatient team. Care significantly affected by the following chronic conditions: Diabetes, Hypertension. Counseling: I had a detailed discussion with the patient and/or guardian regarding: the historical points, exam findings, and any diagnostic results supporting the discharge/admit diagnosis, lab results, radiology results, the need for further work-up and treatment in the hospital. 01/20 21:29 Order name: Basic Metabolic Panel; Complete Time: 23:43 rt 01/20 21:29 Order name: CBC with Diff; Complete Time: 22:37 rt 01/20 21:29 Order name: High Sensitivity Troponin; Complete Time: 23:43 rt 01/20 21:29 Order name: Protime (+inr); Complete Time: 22:37 rt 01/20 21:29 Order name: Ptt, Activated; Complete Time: 22:37 rt 01/20 21:29 Order name: CT Stroke Brain w/o Contrast; Complete Time: 22:37 rt 01/20 21:29 Order name: Stroke CXR 1 View; Complete Time: 22:37 rt 01/20 21:29 Order name: EKG; Complete Time: 21:30 rt 01/20 21:29 Order name: Accucheck; Complete Time: 02:41 rt 01/20 21:29 Order name: Cardiac monitoring; Complete Time: 23:02 rt 01/20 21:29 Order name: EKG - Nurse/Tech; Complete Time: 23:02 rt 01/20 21:29 Order name: IV Saline Lock; Complete Time: 21:51 rt 01/20 21:29 Order name: Labs collected and sent; Complete Time: 21:51 rt 01/20 21:29 Order name: NPO; Complete Time: 02:41 rt 01/20 21:29 Order name: O2 Per Protocol; Complete Time: 23:02 rt 01/20 21:29 Order name: O2 Sat Monitoring; Complete Time: 23:02 rt 01/20 21:29 Order name: Stroke Swallow Screen; Complete Time: 02:41 rt 01/20 23:05 Order name: SARS RAPID la1 01/20 23:12 Order name: NT PRO-BNP; Complete Time: 23:43 EDMS 01/20 23:43 Order name: ABG la1 01/20 23:43 Order name: EKG - Nurse/Tech; Complete Time: 23:58 la1 01/21 00:26 Order name: ABG Arterial Blood Gas EDMS 01/21 01:32 Order name: CREATININE WHOLE BLOOD EDMS 01/21 01:53 Order name: Glucose, Ancillary Testing EDMS 01/21 02:58 Order name: CBC with Automated Diff EDMS 01/21 03:15 Order name: Basic Metabolic Panel EDMS 01/21 03:15 Order name: Lipid Profile EDMS 01/21 03:15 Order name: T4,Total EDMS 01/21 03:15 Order name: Thyroid Stimulating Hormone EDMS 01/21 03:33 Order name: Hemoglobin A1c EDMS 01/21 08:01 Order name: RAD EDMS 01/21 08:44 Order name: US EDMS 01/21 09:03 Order name: Glucose, Ancillary Testing EDMS EC:04 Rate is 93 beats/min. Rhythm is regular, Normal Sinus Rhythm with No ectopy. QRS Peever rt is Normal. PA interval is normal. QRS interval is normal. QT interval is normal. No Q waves. T waves are Normal. No ST changes noted. Interpreted by me. Administered Medications: 23:35 Drug: Aspirin 325 mg Route: PO; ha1 23:40 Drug: NS 0.9% 1000 ml Route: IV; Rate: 1 bolus; Site: left antecubital; ha1 01/21 01:00 Follow up: Response: No adverse reaction; IV Status: Completed infusion; IV Intake: ha1 1000ml 00:05 Drug: Albuterol - atroVENT (ipratropium) (3:1) (2.5 mg - 0.5 mg) 3 ml Route: Nebulizer; ha1 00:40 Follow up: Response: No adverse reaction ha1 00:28 Drug: SOLU-Medrol (methylPrednisoLONE) 125 mg Route: IVP; Site: left antecubital; ha1 01:00 Follow up: Response: No adverse reaction ha1 01:50 Not Given (Physician Discretion): Insulin Regular Human 8 units Sub-Q once ha1 02:45 Drug: Tessalon Perle (benzonatate) 100 mg Route: PO; ha1 Disposition Summary: 01/20/23 23:07 Hospitalization Ordered Hospitalization Status: Observation rt Provider: Gerard Perrin rt Condition: Stable rt Problem: new rt Symptoms: have improved rt Bed/Room Type: Standard rt Location: Telemetry/MedSurg (observation)(01/21/23 08:59) bd Room Assignment: 415(01/21/23 08:59) bd Diagnosis - Left sided numbness rt Forms: - Medication Reconciliation Form rt - SBAR form rt Signatures: Dispatcher [employer] EDMS Sara Whalen bd Anival Kerr, CORPORATE SECURITIES RESEARCH ANALYST-C CORPORATE SECURITIES RESEARCH ANALYST-Cla1 Elenita Mendez, RN RN Elyssa Burnett, RN RN kd3 Brenda Aguillon, RN RN ha1 Donte Lutz MD MD rt Corrections: (The following items were deleted from the chart) 01/20 22:08 21:30 Neck Angio+CT.RAD.BRZ ordered. EDMS EDMS 22:08 21:30 Head Angio+CT.RAD.BRZ ordered. EDMS EDMS 23:10 23:08 PROBNP+C.LAB.BRZ ordered. EDMS EDMS 23:47 23:07 Telemetry/MedSurg (observation) rt cg 23:47 23:07 rt cg 01/21 08:59 01/20 23:47 [facility] ER HOLD cg bd 01/21 08:59 01/20 23:47 ERHOLD- cg
[2023-01-20] MEDS ORDERED: ASPIRIN 325 MG TAB ONE (23:34)
[2023-01-20] MEDS ORDERED: NA CHLORIDE 0.9% 1,000 ML ONE (23:42)
[2023-01-20 23:57] LABS: Arterial Blood Carboxyhemoglob 0.8 % (0-1.5); Blood Gas Oxyhemoglobin 92.8 % (94-97); Blood O2 Saturation 94.6 % (92-98.5)
[2023-01-21] MEDS ORDERED: ALBUTEROL 2.5 MG/3 ML NEB SOL ONE (00:05)
[2023-01-21] MEDS ORDERED: IPRATROPIUM BROM 0.5MG/2.5ML ONE (00:06)
[2023-01-21 00:17] LABS: SARS-CoV-2 Antigen Rapid Res Negative (Negative)
[2023-01-21] MEDS ORDERED: METHYLPREDNISOLONE 125 MG INJ ONE (00:29)
[2023-01-21] MEDS ORDERED: ONDANSETRON 4 MG/2 ML VIAL IV PRN (00:52)
[2023-01-21] MEDS ORDERED: ALBUTEROL 2.5 MG/3 ML NEB SOL NEB PRN ×2 (00:52→14:00)
[2023-01-21] MEDS ORDERED: ACETAMINOPHEN 500 MG TAB PO PRN (00:52)
[2023-01-21] MEDS ORDERED: IPRATROPIUM BROM 0.5MG/2.5ML NEB PRN (00:52)
[2023-01-21] MEDS: NA CHLORIDE 0.9% 1,000 ML IV SCH ×3 (01:00→13:51)
[2023-01-21] MEDS ORDERED: D50W 25 GM/50 ML SYRINGE IV PRN (01:20)
[2023-01-21] MEDS ORDERED: GLUCAGON 1 MG/VIAL IM PRN (01:20)
--- NOTE | 2023-01-21 01:21 | P.HP ---
Certification for Inpatient Patient admitted to: Observation With expected LOS: <2 Midnights Patient will require the following post-hospital care: None Practitioner: I am a practitioner with admitting privileges, knowledge of patient current condition, hospital course, and medical plan of care. Services: Services provided to patient in accordance with Admission requirements found in Title 42 Section 412.3 of the Code of Federal Regulations Patient History Date of Service: 01/21/23 Reason for admission: Left-sided paresthesias History of Present Illness: 62-year-old male with history of atrial fibrillation status post Watchman procedure approximately 6 months ago, CHFunknown EF, hypertension, hyperlipidemia, hypothyroidism, previous CVA/TIA, DAMIAN with CPAP presented to the emergency department with chief complaint of left-sided paresthesias. Patient reports left-sided facial numbness which began at approximately 9 AM on 01/20/2023. Upon presentation to the emergency department patient was outside the window for TNK. CT head was without acute findings. Chest x-ray showed increased interstitial prominence that could reflect mild edema. His labs were significant for hyperglycemia glucose 351 creatinine 1.62 BNP 72. His NIH was 1 for mild sensory loss. Shortly after obtaining my H&P patient had a coughing fit after which he reported the inability to open his eyelids, family at bedside reported this happened once previously lasted for approximately 6 hours. When attempting to examine his eyes by opening his eyelid he appeared to be actively resisting the opening of his eyes although he could follow verbal commands and shake his head yes and no. Patient will need to be admitted for further evaluation of left-sided sensation changes/paresthesias rule out CVA. Allergies No Known Allergies Allergy (Verified 10/08/17 08:09) Home Medications: Levothyroxine Sodium [Tirosint] 175 mcg PO DAILY 01/14/15 lisinopriL [Prinivil*] 10 mg PO DAILY 01/14/15 Atorvastatin Calcium [Lipitor*] 40 mg PO BEDTIME #30 tab 06/10/17 Codeine/APAP [Tylenol W/Codeine #3 tab] 1 tab PO Q6HP PRN 10/08/17 - Past Medical/Surgical History Diabetic: No -: hypothyroid -: HTN -: HLD -: CHF -: A-fib with Watchman -: Insulin-dependent diabetes -: DAMIAN with CPAP -: bilateral knee surgery -: back surgery -: Cholecystectomy Psychosocial/ Personal History: Patient lives at home with family - Family History Father -: Cancer Mother -: Lung disease - Social History Smoking Status: Never smoker Alcohol use: No CD- Drugs: No Caffeine use: Yes Place of Residence: Home Review of Systems 10-point ROS is otherwise unremarkable Neurological: Other (Changes in sensation left side of face, left upper extremi ty, left lower extremity) Physical Examination - Physical Exam General: Alert, In no apparent distress, Oriented x3 HEENT: Atraumatic, PERRLA, Mucous membr. moist/pink, EOMI, Sclerae nonicteric Neck: Supple, 2+ carotid pulse no bruit, No LAD, Without JVD or thyroid abnormality Respiratory: Clear to auscultation bilaterally, Normal air movement Cardiovascular: Regular rate/rhythm, Normal S1 S2 Capillary refill: <2 Seconds Gastrointestinal: Normal bowel sounds, No tenderness Musculoskeletal: No tenderness Integumentary: No rashes Neurological: Normal speech, Normal strength at 5/5 x4 extr, Normal tone, Normal affect, Abnormal sensation (Diminished sensation left face, left upper extremity, left lower extremity) - Studies Laboratory Data (last 24 hrs) 01/20/23 21:48: PT 11.2, INR 1.02, APTT 32.8 01/20/23 21:48: WBC 11.10 H, Hgb 13.3 L, Hct 40.5, Plt Count 281 01/20/23 21:48: Sodium 131 L, Potassium 3.7, BUN 21 H, Creatinine 1.62 H, Glucose 351 H Assessment and Plan - Plan Assessment: Left paresthesias rule out CVA Diabetes mellitus type 2insulin-dependent with hyperglycemia Atrial fibrillation status post Watchman procedure Chronic CHFunknown EF Hypertension Hyperlipidemia Hypothyroidism DAMIAN with CPAP Plan: Left paresthesias rule out CVA CT head negative for acute findings, outside the window for TNK. CT head and neck angio not performed due to kidney function/doubt of large vessel occlusion. MRI stroke protocol ordered as well as carotid Doppler, echocardiogram. Neurology consulted. Aspirin, statin, folic acid ordered. Diabetes mellitus type 2insulin-dependent with hyperglycemia Hyperglycemia treated in ED. Will obtain A1c. Patient takes 70/30 insulin 17 units twice daily at home. We will continue reduced dose long-acting insulin. Atrial fibrillation status post Watchman procedure Patient takes just baby aspirin as far as antiplatelet agent scale. Continue other home medications. Procedure was reportedly approximately 6 months ago. Chronic CHFunknown EF Patient takes Lasix twice daily at home, appears well compensated at this time likely a little dry given VIKRAM, normal BNP and lack of edema peripherally. We will continue gentle hydration recheck chemistry in the morning. Monitor for signs of volume overload. Echocardiogram has been ordered given possible CVA. Hypertension Hyperlipidemia Hypothyroidism Continue home medications as appropriate. DAMIAN with CPAP CPAP at night. DVT PPX: Lovenox Code status: Full Discharge Plan: Home Plan to discharge in: 24 Hours - Advance Directives Does patient have a Living Will: No Does patient have a Durable POA for Healthcare: No - Code Status/Comfort Care Code Status Assessed: Yes (Full code) Critical Care: No Time Spent Managing Pts Care (In Minutes): 70
[2023-01-21] MEDS ORDERED: D10W 125 ML IV PRN (01:25)
[2023-01-21] MEDS ORDERED: BENZONATATE 100 MG CAP PO ONE (02:47)
[2023-01-21 02:57] LABS: Absolute Lymphocytes (CBC) 1.5 K/uL (0.7-4.9); Hematocrit 39.2 % (39.6-49.0); Lymphocytes % 11.5 % (15.3-44.8); MPV 8.7 fL (7.6-11.3); RBC Red Blood Cell Count 4.17 M/uL (4.33-5.43)
[2023-01-21 03:10] LABS: Potassium 3.6 mmol/L (3.5-5.1); T4,Total 10.2 ug/dL (4.5-12.1); Thyroid Stimulating Hormone 2.83 uIU/mL (0.358-3.740)
[2023-01-21] MEDS ORDERED: NA CHLORIDE 0.9% 1,000 ML ONE (04:04)
[2023-01-21] MEDS: INSULIN -REGULAR HUMAN 50 UNIT/0.5 ML ML SQ SCH ×2 (06:00→12:11)
[2023-01-21 07:27] VITALS: BMI 33.0
[2023-01-21] MEDS ORDERED: INSULIN 70/30 100 UNITS/ML SQ SCH ×2 (07:30→21:00)
[2023-01-21] MEDS ORDERED: INFLUENZA VACCINE (for 6+ mo) 0.5 ML DOSE IMVAC ONE (08:00)
--- NOTE | 2023-01-21 08:00 | RAD REPORT ---
EXAM DESCRIPTION: Zahe[place] Pa And Lat (2 Views)01/21/2023 6:24 am CLINICAL HISTORY: CVA COMPARISON: January 20, 2023 FINDINGS: No significant change in the mild bilateral pulmonary opacities. Heart is borderline enlarged
--- NOTE | 2023-01-21 08:43 | RAD REPORT ---
EXAM DESCRIPTION: USCarotid Artery Bilateral01/21/2023 1:53 am CLINICAL HISTORY: Left numbness COMPARISON: 2016 FINDINGS: The velocity of the right internal carotid artery equals 81 cm/sec. The right ICA/CCA rati o 1.1 The velocity of the left internal carotid artery equals 74 cm/sec. The left ICA/CCA ratio 0.6 Mild plaque is present within the carotid arteries. The vertebral arteries demonstrate antegrade flow IMPRESSION: Mild plaque within the carotid arteries without evidence of a hemodynamically significan t stenosis NASCET criteria used. Mild 0-49% stenosis Moderate 50-69% stenosis Severe 70-99% stenosis
[2023-01-21] MEDS ORDERED: ENOXAPARIN 40 MG/0.4 ML SQ SCH (09:00)
[2023-01-21] MEDS ORDERED: ASPIRIN EC 81 MG TAB PO SCH (09:00)
[2023-01-21] MEDS ORDERED: FOLIC ACID 1 MG TABLET PO SCH (09:00)
[2023-01-21] MEDS ORDERED: INSULIN -REGULAR HUMAN 50 UNIT/0.5 ML ML ONE (09:26)
[2023-01-21] MEDS ORDERED: ASPIRIN EC 81 MG TAB PO ONE (09:26)
[2023-01-21] MEDS ORDERED: FOLIC ACID 1 MG TABLET ONE (09:26)
[2023-01-21] MEDS ORDERED: ENOXAPARIN 40 MG/0.4 ML SQ ONE (09:27)
--- NOTE | 2023-01-21 11:14 | EKG ---
Test Date: 2023-01-20 Test Time: 23:48:17 Certified Legal Secretary Specialist: TRAVIS MEASUREMENT RESULTS: Intervals: Rate: 94 [place]: 148 QRSD: 82 QT: 346 QTc: 432 [place]: P: 29 NC: 148 QRS: -14 T: 33 INTERPRETIVE STATEMENTS: Normal sinus rhythm Normal ECG Compared to ECG 06/08/2017 20:07:34 No significant changes Electronically Signed On 01-21-23 11:13:40 WAREHOUSE DISTRIBUTION SPECIALIST by Enzo Pressley
--- NOTE | 2023-01-21 11:26 | P.PN ---
Date of Service: 01/21/23 Subjective: ROS: A complete review of systems was performed and is negative except as mentioned above Physical Exam: General: Alert, In no apparent distress, Oriented x3 HEENT: Atraumatic, PERRLA, Mucous membr. moist/pink, EOMI, Sclerae nonicteric Neck: Supple, 2+ carotid pulse no bruit, No LAD, Without JVD or thyroid abnormality Respiratory: Clear to auscultation bilaterally, Normal air movement Cardiovascular: Regular rate/rhythm, Normal S1 S2 Capillary refill: <2 Seconds Gastrointestinal: Normal bowel sounds, No tenderness Musculoskeletal: No tenderness Integumentary: No rashes Neurological: Normal speech, Normal strength at 5/5 x4 extr, Normal tone, Normal affect, Abnormal sensation (Diminished sensation left face, left upper extremity, left lower extremity) Problem List: Left paresthesias rule out CVA Diabetes mellitus type 2insulin-dependent with hyperglycemia Atrial fibrillation status post Watchman procedure Chronic CHFunknown EF Hypertension Hyperlipidemia Hypothyroidism DAMIAN with CPAP Left paresthesias rule out CVA CT head negative for acute findings, outside the window for TNK. CT head and neck angio not performed due to kidney function/doubt of large vessel occlusion. MRI stroke protocol ordered as well as carotid Doppler, echocardiogram. Neurology consulted. Aspirin, statin, folic acid ordered. Diabetes mellitus type 2insulin-dependent with hyperglycemia Hyperglycemia treated in ED. Will obtain A1c. Patient takes 70/30 insulin 17 units twice daily at home. We will continue reduced dose long-acting insulin. Atrial fibrillation status post Watchman procedure Patient takes just baby aspirin as far as antiplatelet agent scale. Continue other home medications. Procedure was reportedly approximately 6 months ago. Chronic CHFunknown EF Patient takes Lasix twice daily at home, appears well compensated at this time likely a little dry given VIKRAM, normal BNP and lack of edema peripherally. We will continue gentle hydration recheck chemistry in the morning. Monitor for signs of volume overload. Echocardiogram has been ordered given possible CVA. Hypertension Hyperlipidemia Hypothyroidism Continue home medications as appropriate. DAMIAN with CPAP CPAP at night. DVT PPX: Lovenox Code status: Full Discharge Plan: Home Plan to discharge in: 24 Hours
[2023-01-21 11:35] VITALS: O2SAT 98
--- NOTE | 2023-01-21 12:06 | RAD REPORT ---
EXAM DESCRIPTION: RAD - Barium Swallow Modified - 01/21/2023 11:56 am CLINICAL HISTORY: TIA/choking FINDINGS: ADMINISTERED: THIN, NECTAR, HONEY THICK LIQUID, PUDDING, SOFT TEXTURES REGULAR MBS FINDINGS LARYNGEAL PENETRATION FLASH: CLEARED WITH THIN AND NECTAR PHARYNGEAL RESIDUE VALLECULAR WITH PUDDING CLEARED MILDLY REDUCED AIRWAY CLOSURE DURING SWALLOW FLUORO TIME: 1.51 minutes Eighteen fluoroscopic spot series obtained
[2023-01-21] MEDS ORDERED: LORazepam 2 MG/ML VIAL IV ONE (14:49)
--- NOTE | 2023-01-21 16:25 | RAD REPORT ---
EXAM DESCRIPTION: MRI - Brain Wo Cont - 01/21/2023 4:07 pm CLINICAL HISTORY: r/o cva Headache, drowsiness, CVA symptomology COMPARISON: Ct Stroke Brain Wo Cont dated 01/20/2023 TECHNIQUE: Multi-sequence, multiplanar MR imaging of the brain was performed without contrast. FINDINGS: No intracranial hemorrhage, hydrocephalus or extra-axial fluid collections.Mild brain atro phy. No edema or shift of midline structures. No findings to suspect brain mass. DWI is negative for acute CVA. Midline structures are normally formed. Mastoid air cells and paranasal sinuses are clear. IMPRESSION: Negative for acute CVA or other acute intracranial process.
[2023-01-21 16:27] VITALS: BP 138/77; TEMP 97.2
[2023-01-21] MEDS ORDERED: INSULIN -REGULAR HUMAN 50 UNIT/0.5 ML ML SQ SCH (16:30)
--- NOTE | 2023-01-21 17:30 | EKG ---
Test Date: 2023-01-20 Test Time: 23:00:27 Revenue Analyst: MAGDALENA MEASUREMENT RESULTS: Intervals: Rate: 93 [place]: 152 QRSD: 84 QT: 348 QTc: 432 [place]: P: 31 [place]: 152 QRS: -5 T: 36 INTERPRETIVE STATEMENTS: Sinus rhythm with fusion complexes Otherwise normal ECG Compared to ECG 06/08/2017 20:07:34 Fusion complex(es) now present Electronically Signed On 01-21-23 17:28:42 TOOL POLISHER by Enzo Pressley
[2023-01-21] MEDS ORDERED: ATORVASTATIN 20 MG TAB PO SCH (21:00)
== END 2023-01-21 18:31 | disposition home or self-care (01) ==
LOC: ER 21:09 → ERHOLD 01-21 00:31 → 4TH 01-21 10:44
PROVIDERS: ADMIT Hospitalist; ATTEND Hospitalist
DX: R20.2 Paresthesia of skin (principal); I48.91 Unspecified atrial fibrillation; I50.9 Heart failure, unspecified; I10 Essential (primary) hypertension; E78.5 Hyperlipidemia, unspecified; E03.9 Hypothyroidism, unspecified; G47.33 Obstructive sleep apnea (adult) (pediatric); E11.65 Type 2 diabetes mellitus with hyperglycemia; Z86.73 Personal history of transient ischemic attack (TIA), and cerebral infarction without residual deficits; Z20.822 Contact with and (suspected) exposure to COVID-19
CPT/HCPCS: 36415; 70450; 70551; 71045; 71046; 74230; 80048; 80061; 82565; 82805; 82947; 83036; 83880; 84436; 84443; 84484; 85025; 85610; 85730; 87811; 92610; 92611; 93005; 93880; 94660; 97116; 97161; 97165; G0378; J1650; J1815; J2930; J7030; J7613; J7644

== ENCOUNTER 2024-05-10 09:04 | Emergency (ER) | payer BC ==
[2024-05-10 10:08] LABS: Absolute Basophils 0.1 K/uL (0-0.5); Absolute Eosinophils 0.8 K/uL (0-0.5); Absolute Lymphocytes (CBC) 2.8 K/uL (0.7-4.9); Absolute Neutrophil 8.3 K/uL (1.8-8.0); Hematocrit 36.1 % (39.6-49.0); Hemoglobin 11.8 g/dL (13.6-17.9); Lymphocytes % 21.7 % (15.3-44.8); MCH 31.3 pg (27.0-35.0); MCHC 32.6 g/dL (32.0-36.0); MCV 96.1 fL (80-100); MPV 8.2 fL (7.6-11.3); Monocytes % 7.4 % (3.3-12.3); Neutrophils % 63.9 % (41.7-73.7); Nucleated Red Blood Cells % 0.2 % (0-0); Platelets 349 thou/uL (152-406); RBC Red Blood Cell Count 3.76 M/uL (4.33-5.43); Red Cell Distribution Width 15.7 % (12.1-15.2)
[2024-05-10 10:18] LABS: PT Prothrombin Time 10.7 SECONDS (9.5-12.5); PTT, Activated Partial Thromb 30.3 SECONDS (24.3-36.9); Protime INR 0.97
[2024-05-10 10:21] LABS: Anion Gap 9.1 mEq/L (5.0-15.0); Potassium 4.1 mEq/L (3.5-5.1)
[2024-05-10] MEDS ORDERED: LIDOCAINE 1% MPF 5 ML VIAL ONE (10:34)
[2024-05-10] MEDS ORDERED: HYDROCODONE/APAP 5/325 MG TAB ONE (11:19)
[2024-05-10 12:30] LABS: Appearance SLT. TURBID (CLEAR); Body Fluid Source SYNOVIAL; Body Fluid WBC 21 /mm^3; Color of fluid Pink (COLORLESS)
[2024-05-10 12:33] LABS: Body Fluid Lymphocytes 43 %; Fluid Total Cells Count 100
--- NOTE | 2024-05-10 12:33 | RAD REPORT ---
EXAM DESCRIPTION: RAD - Knee Right 3 View - 05/10/2024 10:05 am CLINICAL HISTORY: PAIN COMPARISON: No comparisons TECHNIQUE: Right knee, 3 views. FINDINGS: No fracture, dislocation or periosteal reaction.No joint effusion seen. Moderate tricompar tmental osteoarthritic changes with joint space loss most pronounced medially. Mild infrapatellar fat pad edema. Enthesopathy at the quadriceps tendon attachment. Clinical concerns for internal derangement or occult bony injury could be further assessed with MR im aging. IMPRESSION: No acute osseus abnormality. Suspected mild infrapatellar fat pad edema. Moderate degenerative changes.
[2024-05-10 13:38] VITALS: BP 125/76; TEMP 98.1; O2SAT 98
--- NOTE | 2024-05-10 18:02 | EDPHYS ---
Physician Documentation [facility] Name: Cindy Mays Age: 63 yrs Sex: Male : 1960 Arrival Date: 05/10/2024 Time: 09:04 Bed 24 Private MD: ED Physician Andrzej Perrin HPI: 05/10 09:54 This 63 yrs old Male presents to ER via Ambulatory with complaints of Knee swelling, rn Knee Pain. 09:54 The patient presents with pain, swelling. The complaints affect the right knee. Onset: rn The symptoms/episode began/occurred 2 day(s) ago. 09:54 Modifying factors: The symptoms are alleviated by nothing. the symptoms are aggravated rn by nothing. Associated signs and symptoms: Pertinent positives: swelling, Pertinent negatives fever, weakness. Severity of symptoms: At their worst the symptoms were moderate, in the emergency department the symptoms are unchanged. The patient has experienced similar episodes in the past. Patient reports right knee pain, denies injury. No fever or chills. Is diabetic. States has had swelling of right knee before but no diagnosis of septic arthritis or gout. Denies IV drug use.. 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 - Infectious Disease History:: Denies. - Social history:: Smoking status: Patient/guardian denies using tobacco. - Family history:: not pertinent. - Hospitalizations: : No recent hospitalization is reported. ROS: 09:54 Constitutional: Negative for fever, chills, and weight loss, Cardiovascular: Negative rn for chest pain, palpitations, and edema, Respiratory: Negative for shortness of breath, cough, wheezing, and pleuritic chest pain, Abdomen/GI: Negative for abdominal pain, nausea, vomiting, diarrhea, and constipation, MS/Extremity: Positive for right knee pain and swelling Neuro: Negative for headache, weakness, numbness, tingling, and seizure, Exam: 09:54 Constitutional: This is a well developed, well nourished patient who is awake, alert, rn and in no acute distress. Cardiovascular: Regular rate and rhythm. No pulse deficits. Respiratory: No increased work of breathing, no retractions or nasal flaring. MS/ Extremity: Pulses equal, no cyanosis. Neurovascular intact. Painful range of motion right knee with mild knee effusion, mild warmth. No overlying wound or cellulitis of the knee. Vital Signs: 09:19 BP 119 / 77; Pulse 82; Resp 16; Temp 98.1; Pulse Ox 96% ; Weight 99.79 kg; Height 5 ft. iw 10 in. ; Pain 6/10; 11:26 BP 112 / 73; Pulse 66; Resp 18; Pulse Ox 99% ; Pain 4/10; ap3 12:42 BP 125 / 76; Pulse 68; Resp 18; Pulse Ox 98% on R/A; ap3 09:19 Body Mass Index 31.57 (99.79 kg, 177.8 cm) iw 09:19 Pain Scale: Adult iw 11:26 Pain Scale: Adult ap3 Procedures: 10:59 Joint Treatment: Aspiration of right knee using 22g spinal needle. Removed 10 ml's of rn cloudy fluid, yellow fluid, Specimen sent to lab. Dressed with band aid, Patient tolerated well. MDM: 09:21 Patient medically screened. rn 12:53 Differential diagnosis: tendonitis, Knee effusion, septic arthritis, reactive rn arthritis, gout. Data reviewed: vital signs, nurses notes, lab test result(s), radiologic studies, plain films, and as a result, I will discharge patient. Counseling: I had a detailed discussion with the patient and/or guardian regarding the historical points, exam findings, and any diagnostic results supporting the discharge/admit diagnosis, lab results, radiology results, the need for outpatient follow up, to return to the emergency department if symptoms worsen or persist or if there are any questions or concerns that arise at home. Response to treatment: the patient's symptoms have mildly improved after treatment, and as a result, I will discharge patient. Special discussion: I discussed with the patient/guardian in detail that at this point there is no indication for admission to the hospital. It is understood, however, that if the symptoms persist or worsen the patient needs to return immediately for re-evaluation. Based on the history and exam findings, there is no indication for further emergent testing or inpatient evaluation. I discussed with the patient/guardian the need to see the orthopedic surgeon for further evaluation of the symptoms. I discussed with the patient/guardian the need to see the primary care provider for further evaluation of the symptoms. ED course: No acute findings and workup today. Shows tricompartmental arthritis of the knee. Aspiration of the knee negative for septic arthritis or gout. Will place in knee immobilizer and sent home with pain medication.. 05/10 09:25 Order name: CBC with Diff; Complete Time: 10:33 rn 05/10 09:25 Order name: Basic Metabolic Panel; Complete Time: 10:33 rn 05/10 09:25 Order name: Protime (+inr); Complete Time: 10:33 rn 05/10 09:25 Order name: Ptt, Activated; Complete Time: 10:33 rn 05/10 10:58 Order name: Body Fluid Culture rn 05/10 10:58 Order name: Fluid Crystals; Complete Time: 12:21 rn 05/10 10:58 Order name: Fluid Cell Count,Body; Complete Time: 12:49 rn 05/10 09:21 Order name: XRAY Knee RIGHT 3 view; Complete Time: 12:49 rn 05/10 09:25 Order name: IV Start; Complete Time: 10:00 rn 05/10 12:52 Order name: Knee Immobilizer; Complete Time: 13:11 rn Administered Medications: 10:45 Drug: Lidocaine Infiltration (1 %) 1 vials 5 ml Infiltration once; to bedside {Note: jl7 administered by Dr. Perrin.} Volume: 5 ml; Route: Infiltration; 11:26 Drug: HYDROcodone-acetaminophen PO 5 mg-325 mg 2 tabs PO once Route: PO; ap3 12:38 Follow up: Response: No adverse reaction; Pain is decreased ap3 Disposition Summary: 05/10/24 12:54 Discharge Ordered Notes: Location: Home rn Problem: new rn Symptoms: have improved rn Condition: Stable rn Diagnosis - Effusion, right knee rn - Pain in right knee rn Followup: rn - With: Private Physician - When: As needed - Reason: Recheck today's complaints, Re-evaluation by your physician Discharge Instructions: - Discharge Summary Sheet rn - Arthritis rn - Knee Effusion rn - Acute Knee Pain, Adult rn Forms: - Medication Reconciliation Form rn - Antibiotic varnish maker helper - Prescription Opioid Use rn - Patient Portal Instructions rn - Leadership Thank You Letter rn Prescriptions: - Tramadol 50 mg Oral tablet - take 1 tablet ORAL route every 8 hours As needed as needed; 15 tablet; Refills: rn 0, Product Selection Permitted Signatures: Dispatcher [employer] Lolly Mccann, RN Andrzej Renee MD MD rn Leal, Jahala, ANALI RN jl7 Sol Melo RN RN ap3 Corrections: (The following items were deleted from the chart) : 09:22 Knee Right 3 View+RAD.RAD.BRZ ordered. EDMS EDMS 09:25 09:25 CBC+H.LAB.BRZ ordered. EDMS EDMS 09: 09:25 BASIC METABOLIC PANEL+C.LAB.BRZ ordered. EDMS EDMS 09: 09:25 PROTIME (+INR)+COAG.LAB.BRZ ordered. EDMS EDMS 09:25 09:25 PTT, ACTIVATED+COAG.LAB.BRZ ordered. EDMS EDMS 10:59 10:59 Body Fluid Culture+BA.LAB.BRZ ordered. EDMS EDMS 10:59 10:59 FLUID CRYSTALS+U.LAB.BRZ ordered. EDMS EDMS 10:59 10:59 FLUID CELL COUNT,BODY+H.LAB.BRZ ordered. EDMS EDMS
--- NOTE | 2024-05-10 18:02 | ER ---
Nurse's Notes [facility] Name: Cindy Mays Age: 63 yrs Sex: Male : 1960 Arrival Date: 05/10/2024 Time: 09:04 Bed 24 Private MD: Diagnosis: Effusion, right knee;Pain in right knee Presentation: 05/10 09:19 Chief complaint: Patient states: right knee pain and swelling X 2 days, denies injury iw or trauma. Coronavirus screen: At this time, the client does not indicate any symptoms associated with coronavirus-19. Ebola Screen: Patient negative for fever greater than or equal to 101.5 degrees Fahrenheit, and additional compatible Ebola Virus Disease symptoms Patient denies travel to an Ebola-affected area in the 21 days before illness onset. Initial Sepsis Screen: Does the patient meet any 2 criteria? No. Patient's initial sepsis screen is negative. Does the patient have a suspected source of infection? No. Patient's initial sepsis screen is negative. Risk Assessment: Do you want to hurt yourself or someone else? Patient reports no desire to harm self or others. Onset of symptoms was May 08, 2024. 09:19 Method Of Arrival: Ambulatory iw 09:19 Acuity: ELENO 3 iw Historical: - Allergies: 09:20 Morphine; iw - PMHx: 09:20 Congestive heart failure; clot in heart; High Cholesterol; diabetes mellitus; iw Hypertension; Hypothyroidism; TIA; - Immunization history:: Adult Immunizations. - Infectious Disease History:: Denies. - Social history:: Smoking status: Patient/guardian denies using tobacco. - Family history:: not pertinent. - Hospitalizations: : No recent hospitalization is reported. Screenin:15 Abuse screen: Denies threats or abuse. Nutritional screening: No deficits noted. ap3 Tuberculosis screening: No symptoms or risk factors identified. 13:11 [facility] ED Fall Risk Assessment (Adult) History of falling in the last 3 months, ap3 including since admission No falls in past 3 months (0 pts) Confusion or Disorientation No (0 pts) Intoxicated or Sedated No (0 pts) Impaired Gait Yes (1 pt) Mobility Assist Device Used No (0 pt) Altered Elimination No (0 pt) Score/Fall Risk Level 0 - 2 = Low Risk Oriented to surroundings, Maintained a safe environment, Educated pt \T\ family on fall prevention, incl call for assistance when getting out of bed, Assessed \T\ reinforced patient's understanding of fall precautions, Provided non-skid footwear, Hourly rounding (assess needs \T\ fall precautionary measures) done, Used ambulatory aids as needed (educated on \T\ assisted with), Used gait belt as appropriate. Assessment: 11:15 General: Appears in no apparent distress. Behavior is calm, cooperative, appropriate ap3 for age. Pain: Complains of pain in right knee. Pain: Pain began gradually. Neuro: Level of Consciousness is awake, alert, obeys commands, Oriented to person, place, time, situation, Appropriate for age. Cardiovascular: Patient's skin is warm and dry. Respiratory: Airway is patent Respiratory effort is even, unlabored, Respiratory pattern is regular, symmetrical. Vital Signs: 09:19 BP 119 / 77; Pulse 82; Resp 16; Temp 98.1; Pulse Ox 96% ; Weight 99.79 kg; Height 5 ft. iw 10 in. ; Pain 6/10; 11:26 BP 112 / 73; Pulse 66; Resp 18; Pulse Ox 99% ; Pain 4/10; ap3 12:42 BP 125 / 76; Pulse 68; Resp 18; Pulse Ox 98% on R/A; ap3 09:19 Body Mass Index 31.57 (99.79 kg, 177.8 cm) iw 09:19 Pain Scale: Adult iw 11:26 Pain Scale: Adult ap3 ED Course: 09:06 Patient arrived in ED. mr 09:20 Triage completed. iw 09:20 Arm band placed on. iw 09:21 Andrzej Perrin MD is Attending Physician. rn 10:00 Protime (+inr) Sent. bc6 10:00 Ptt, Activated Sent. bc6 10:00 Basic Metabolic Panel Sent. bc6 10:00 CBC with Diff Sent. bc6 10:00 Initial lab(s) drawn, by me, sent to lab. Inserted saline lock: 20 gauge in right bc6 antecubital area, using aseptic technique. Blood collected. 10:07 XRAY Knee RIGHT 3 view In Process Unspecified. EDMS 11:15 Sol Melo, ANALI is Primary Nurse. ap3 11:16 Patient has correct armband on for positive identification. Bed in low position. Call ap3 light in reach. Side rails up X2. Provided Education on: fall risk and call light education. Pulse ox on. NIBP on. 13:11 No provider procedures requiring assistance completed. IV discontinued, intact, ap3 bleeding controlled, No redness/swelling at site. Pressure dressing applied. Administered Medications: 10:45 Drug: Lidocaine Infiltration (1 %) 1 vials 5 ml Infiltration once; to bedside {Note: jl7 administered by Dr. Perrin.} Volume: 5 ml; Route: Infiltration; 11:26 Drug: HYDROcodone-acetaminophen PO 5 mg-325 mg 2 tabs PO once Route: PO; ap3 12:38 Follow up: Response: No adverse reaction; Pain is decreased ap3 Medication: 11:16 VIS not applicable for this client. ap3 Outcome: 12:54 Discharge ordered by . rn 13:11 Discharged to home ambulatory, ap3 13:11 Condition: good 13:11 Discharge instructions given to patient, Instructed on discharge instructions, follow up and referral plans. medication usage, Demonstrated understanding of instructions, follow-up care, medications, Prescriptions given X 1, 13:12 Patient left the ED. ap3 Signatures: Dispatcher [employer] EDCO LakhwinderClaudia, Reg Reg mr Lolly Daugherty, RN Andrzej Renee MD MD rn Leal, Jahala, RN RN jl7 Sol Melo RN RN ap3 Sofia Aponte 6 Corrections: (The following items were deleted from the chart) 09:20 09:19 Pulse 82bpm; Resp 16bpm; Pulse Ox 96%; Temp 98.1F; 99.79 kg; Height 5 ft. 10 in.; BMI: 31.5; Pain 6/10, Adult; iw 09:23 09:19 Acuity: ELENO 4 iw
== END 2024-05-10 13:12 | disposition home or self-care (01) ==
LOC: ER 09:04
PROC: 0S9C3ZZ Drainage of Right Knee Joint, Percutaneous Approach (ICD-10-PCS; principal; 2024-05-10)
DX: M25.461 Effusion, right knee (principal)
CPT/HCPCS: 87070; 85025; 80048; 36415; 89050; 85610; 85730; 89060; 73562; 20610; J2001; 99284